=== PATIENT | female | born 1955 | race Caucasian/White ===

== ENCOUNTER → 2016-07-06 | Outpatient (CLI) | payer MEDICARE, OTHER ==
--- NOTE | 2016-07-06 16:15 | XR ---
EXAMINATION TYPE: XR chest 2V DATE OF EXAM: 07/06/2016 2:33 PM HISTORY: Cough. REFERENCE: Previous study dated 11/26/2015. FINDINGS: There is chronic appearing elevation of the right hemidiaphragm. IMPRESSION: MILD CARDIOMEGALY.
== END | disposition home or self-care (01) ==
LOC: RADXRMAIN 13:47
PROVIDERS: ATTEND Internal Medicine
DX: I51.7 Cardiomegaly (principal)
CPT/HCPCS: 71020

== ENCOUNTER → 2016-07-13 | Outpatient (CLI) | payer MEDICARE, OTHER ==
[~2016-07-13] MED LIST: SODIUM CHLORIDE 0.9% 500 ML in EMPTY BAG 1 BAG IV PRN; methylPREDNISolone SOD SUCCI 125 MG/2 ML VIAL IVP NR
[2016-07-13 15:01] VITALS: BP 131/78; PULSE 61; RESP 16; TEMP 97.5
== END | disposition home or self-care (01) ==
LOC: PROCWHC3 14:10
PROVIDERS: ATTEND Internal Medicine
DX: G35 Multiple sclerosis (principal)
CPT/HCPCS: 96374; J2930

== ENCOUNTER 2016-08-18 12:30 | Observation (INO) | payer MEDICARE ==
[2016-08-18] MEDS ORDERED: ASPIRIN 81 MG CHEW PO STA (12:47)
[2016-08-18] MEDS ORDERED: NITROGLYCERIN OINT 1 INCH/GM PACKET TOPICAL STA (12:47)
--- NOTE | 2016-08-18 12:53 | ED ---
General Adult HPI - General Chief complaint: Chest Pain Stated complaint: chest pain Time Seen by Provider: 08/18/16 12:35 Source: patient, EMS, RN notes reviewed Mode of arrival: EMS Limitations: no limitations - History of Present Illness Initial comments: This is a 60-year-old female who presents to the emergency department with a past medical history significant for CVA with some residual expressive aphasia. Patient comes in today complaining of chest pain that started earlier today and was pretty significant according to the patient. Patient states it was causing her some shortness of breath. She denies any diaphoresis denied any nausea denied any radiation of the pain. Patient states she had no limitations. Patient denies any recent fever chills cough. Patient denies any recent injury or trauma. Patient denies any lightheadedness dizziness or syncopal episode. Patient denies abdominal pain patient denies any vomiting or diarrhea recently. Patient denies any headache patient denies any numbness or weakness. Patient denies any visual problems or speech problem. - Related Data Home Medications Medication Instructions Recorded Confirmed Aspirin 81 mg PO DAILY@0911/08/13 08/18/16 Baclofen [Lioresal] 10 mg PO DAILY@169911/08/13 08/18/16 Citalopram Hydrobromide [CeleXA] 40 mg PO HS@2100 11/08/13 08/18/16 Ferrous Sulfate [Feosol] 325 mg PO DAILY@89911/08/13 08/18/16 Fexofenadine HCl [Mimi Allergy] 180 mg PO DAILY@169911/08/13 08/18/16 Furosemide [Lasix] 40 mg PO BID@0900,169911/08/13 08/18/16 Levothyroxine Sodium [Synthroid] 75 mcg PO DAILY@59911/08/13 08/18/16 Montelukast [Singulair] 10 mg PO DAILY@169911/08/13 08/18/16 Nitroglycerin Sl Tabs [Nitrostat] 0.4 mg SUBLINGUAL Q5M PRN 11/08/13 08/18/16 Pantoprazole Sodium [Protonix] 40 mg PO DAILY@0611/08/13 08/18/16 Potassium Chloride [Potassium 20 meq PO BID@0900,169911/08/13 08/18/16 Chloride ER] Biotin 5 mg PO BID@0900,1700 03/05/14 08/18/16 Cholecalciferol [Vitamin D3] 2,000 unit PO DAILY@0900 11/18/15 08/18/16 Dimethyl Fumarate [Tecfidera] 240 mg PO BID@0900,2100 11/18/15 08/18/16 Fluticasone Nasal [place] [Flonase 1 spray EA NOSTRIL DAILY@0911/18/15 08/18/16 Nasal [place]] Methylphenidate HCl [Ritalin] 20 mg PO DAILY@0900 11/18/15 08/18/16 Pravastatin Sodium [Pravachol] 20 mg PO HS@209911/18/15 08/18/16 Warfarin Sodium 5 mg PO MO@169911/18/15 08/18/16 Warfarin [Coumadin] 7.5 mg PO SUTUWETHFRSA@169911/18/15 08/18/16 fentaNYL [Fentanyl] 25 mcg TRANSDERM Q72H 11/18/15 08/18/16 HYDROcodone/APAP 5-325MG [[place] 1 tab PO Q6HR PRN 07/13/16 08/18/16 5-325] Pregabalin [Lyrica] 100 mg PO TID@0900,1700,209907/13/16 08/18/16 Folic Acid 0.4 mg PO DAILY@0908/18/16 08/18/16 Allergies Allergy/AdvReac Type Severity Reaction Status Date / Time adhesive Allergy SKIN Verified 07/13/16 14:41 PEELING Review of Systems ROS Statement: Those systems with pertinent positive or pertinent negative responses have been documented in the HPI. ROS Other: All systems not noted in ROS Statement are negative. Past Medical History Past Medical History: Chest Pain / Angina, CVA/TIA, Fibromyalgia, Osteoarthritis (OA), Pulmonary Embolus (PE), Sleep Apnea/CPAP/BIPAP, Thyroid Disorder Additional Past Medical History / Comment(s): MULTIPLE SCLEROSIS, HX OF CVA 2006 . APHASIA, MIGRAINES, SLEEP APNEA(HAS C-PAP MACHINE BUT DOES NOT USE) ABD HERNIA,CHRONIC PAIN ALL OVER . USES CANE TO WALK. PAINFUL FOR HER TO LIE FLAT. HX OF NOSEBLEED JUL 2014 AND RECEIVED PLASMA TRANSFUSION.takes pills with applesauce. History of Any Multi-Drug Resistant Organisms: VRE Date of last positivie culture/infection: 2011 MDRO Source:: URINE Past Surgical History: Appendectomy, Cholecystectomy, Hysterectomy Additional Past Surgical History / Comment(s): Hernia repair, laparoscopic lysis of adhesions in 1987, ganglion cyst removal of the left wrist, patent foramen ovale patch in 2006, REPAIR OF INCISON HERNIA Past Anesthesia/Blood Transfusion Reactions: No Reported Reaction Past Psychological History: No Psychological Hx Reported, Depression Additional Psychological History / Comment(s): CELEXA. PT HAS DIFFICULTY W/ SPEECH. HAS TO LOOK AT DIETARY MENU TO ORDER CAN'T DO IT BY PHONE, SHOW HER VS OR POINT TO FACES PAIN SCALE. Smoking Status: Never smoker Past Alcohol Use History: None Reported Past Drug Use History: None Reported Additional Drug Use History / Comment(s): Lives at home with her requires some assistance with ADLs at times - Past Family History Mother Family Medical History: Hypertension Additional Family Medical History / Comment(s): osteoporosis Father Family Medical History: Dementia General Exam - General Exam Comments Initial Comments: GENERAL: Patient is well-developed and well-nourished. Patient is nontoxic and well- hydrated and is in mild distress. ENT: Neck is soft and supple. No significant lymphadenopathy is noted. Oropharynx is clear. Moist mucous membranes. Neck has full range of motion without eliciting any pain. EYES: The sclera were anicteric and conjunctiva were pink and moist. Extraocular movements were intact and pupils were equal round and reactive to light. Eyelids were unremarkable. PULMONARY: Unlabored respirations. Good breath sounds bilaterally. No audible rales rhonchi or wheezing was noted. CARDIOVASCULAR: There is a regular rate and rhythm without any murmurs gallops or rubs. ABDOMEN: Soft and nontender with normal bowel sounds. No palpable organomegaly was noted. There is no palpable pulsatile mass. SKIN: Skin is clear with no lesions or rashes and otherwise unremarkable. NEUROLOGIC: Patient is alert and oriented x3. Cranial nerves II through XII are grossly intact. Motor and sensory are also intact. Patient has some expressive aphasia and occasionally transpose his words.. Symmetrical smile. MUSCULOSKELETAL: Normal extremities with adequate strength and full range of motion. No lower extremity swelling or edema. No calf tenderness. LYMPHATICS: No significant lymphadenopathy is noted PSYCHIATRIC: Normal psychiatric evaluation. Limitations: no limitations Course Vital Signs 08/18/16 12:35 Temperature 99.2 F Pulse Rate 54 L Respiratory 20 Rate Blood Pressure 126/62 O2 Sat by Pulse 100 Oximetry Medical Decision Making - Medical Decision Making EKG shows a sinus bradycardia 55 bpm MS interval is 144 QRS 76 QT interval 348 QTC is 419 per patient's EKG shows no ST segment elevation or depression or T- wave abdomen is noted. Patient's chest x-ray shows no acute mallet. I started the patient heparin because the significance of her symptoms. I spoke with Dr. Jackson admitted the patient. I consult cardiology. I wrote admitting orders.I continued heparin Nitropaste and aspirin on the floor. - Lab Data Result diagrams: 08/18/16 12:56 08/18/16 12:56 Lab Results 08/18/16 08/18/16 08/18/16 Range/Units 12:56 12:56 12:56 WBC 3.0 L (3.8-10.6) k/uL RBC 4.97 (3.80-5.40) m/uL Hgb 15.1 (11.4-16.0) gm/dL Hct 43.7 (34.0-46.0) % MCV 88.0 (80.0-100.0) fL MCH 30.4 (25.0-35.0) pg MCHC 34.5 (31.0-37.0) g/dL RDW 13.2 (11.5-15.5) % Plt Count 129 L (150-450) k/uL Neutrophils % (Manual) 72.0 % Lymphocytes % (Manual) 20.0 % Monocytes % (Manual) 6.0 % Eosinophils % (Manual) 2.0 % Neutrophils # (Manual) 2.2 (1.3-7.7) k/uL Lymphocytes # (Manual) 0.6 L (1.0-4.8) k/uL Monocytes # (Manual) 0.2 (0-1.0) k/uL Eosinophils # (Manual) 0.1 (0-0.7) k/uL Nucleated RBCs 0 (0-0) /100 WBC Manual Slide Review Performed Poikilocytosis (manual Present PT (9.0-12.0) sec INR (<1.1) APTT (22.0-30.0) sec Sodium 143 (137-145) mmol/L Potassium 4.2 (3.5-5.1) mmol/L Chloride 104 (98-107) mmol/L Carbon Dioxide 30 (22-30) mmol/L Anion Gap 9 mmol/L BUN 23 H (7-17) mg/dL Creatinine 1.04 (0.52-1.04) mg/dL Est GFR (MDRD) Af Amer >60 (>60 ml/min/1.73 sqM) Est GFR (MDRD) Non-Af 54 (>60 ml/min/1.73 sqM) Glucose 87 (74-99) mg/dL Calcium 9.7 (8.4-10.2) mg/dL Magnesium 2.3 (1.6-2.3) mg/dL Total Bilirubin 0.8 (0.2-1.3) mg/dL AST 19 (14-36) U/L ALT 30 (9-52) U/L Alkaline Phosphatase 78 (38-126) U/L Total Creatine Kinase 34 (30-135) U/L CK-MB (CK-2) <0.2 (0.0-2.4) ng/mL CK-MB (CK-2) Rel Index Troponin I <0.012 (0.000-0.034) ng/mL Total Protein 6.8 (6.3-8.2) g/dL Albumin 4.3 (3.5-5.0) g/dL 08/18/16 Range/Units 12:56 WBC (3.8-10.6) k/uL RBC (3.80-5.40) m/uL Hgb (11.4-16.0) gm/dL Hct (34.0-46.0) % MCV (80.0-100.0) fL MCH (25.0-35.0) pg MCHC (31.0-37.0) g/dL RDW (11.5-15.5) % Plt Count (150-450) k/uL Neutrophils % (Manual) % Lymphocytes % (Manual) % Monocytes % (Manual) % Eosinophils % (Manual) % Neutrophils # (Manual) (1.3-7.7) k/uL Lymphocytes # (Manual) (1.0-4.8) k/uL Monocytes # (Manual) (0-1.0) k/uL Eosinophils # (Manual) (0-0.7) k/uL Nucleated RBCs (0-0) /100 WBC Manual Slide Review Poikilocytosis (manual PT 20.2 H (9.0-12.0) sec INR 2.1 (<1.1) APTT 33.0 H (22.0-30.0) sec Sodium (137-145) mmol/L Potassium (3.5-5.1) mmol/L Chloride (98-107) mmol/L Carbon Dioxide (22-30) mmol/L Anion Gap mmol/L BUN (7-17) mg/dL Creatinine (0.52-1.04) mg/dL Est GFR (MDRD) Af Amer (>60 ml/min/1.73 sqM) Est GFR (MDRD) Non-Af (>60 ml/min/1.73 sqM) Glucose (74-99) mg/dL Calcium (8.4-10.2) mg/dL Magnesium (1.6-2.3) mg/dL Total Bilirubin (0.2-1.3) mg/dL AST (14-36) U/L ALT (9-52) U/L Alkaline Phosphatase (38-126) U/L Total Creatine Kinase (30-135) U/L CK-MB (CK-2) (0.0-2.4) ng/mL CK-MB (CK-2) Rel Index Troponin I (0.000-0.034) ng/mL Total Protein (6.3-8.2) g/dL Albumin (3.5-5.0) g/dL Critical Care Time Critical Care Time: Yes Total Critical Care Time: 35 Disposition Clinical Impression: Unstable angina pectoris Disposition: ADMITTED IP TO THIS [facility] Time of Disposition: 14:29
[2016-08-18 13:08] LABS: Aty Lym Flag Slight; CH 31.4; CHCM 35.8; HCT 43.7 % (34.0-46.0); HDW 3.05; HGB 15.1 gm/dL (11.4-16.0); MCH 30.4 pg (25.0-35.0); MCHC 34.5 g/dL (31.0-37.0); RBC 4.97 m/uL (3.80-5.40); RDW 13.2 % (11.5-15.5); WBC (Perox) 2.94
[2016-08-18 13:22] LABS: Add Differential Manual Differential
[2016-08-18 13:23] LABS: ALT 30 U/L (9-52); AST 19 U/L (14-36); Alkaline Phosphatase 78 U/L (38-126); Anion Gap 9 mmol/L; Blood Urea Nitrogen 23 mg/dL (7-17); Calcium 9.7 mg/dL (8.4-10.2); Carbon Dioxide 30 mmol/L (22-30); Chloride 104 mmol/L (98-107); Glucose 87 mg/dL (74-99); INR 2.1 (<1.1); Magnesium 2.3 mg/dL (1.6-2.3); Non-African American GFR(MDRD) 54 (>60 ml/min/1.73 sqM); Potassium 4.2 mmol/L (3.5-5.1); Prothrombin Time 20.2 sec (9.0-12.0); Sodium 143 mmol/L (137-145); Total Bilirubin 0.8 mg/dL (0.2-1.3); Total Protein 6.8 g/dL (6.3-8.2)
[2016-08-18 13:24] LABS: Manual Review Performed; Nucleated Red Blood Cells 0 /100 WBC (0-0); Total Cells Counted 100
--- NOTE | 2016-08-18 13:28 | XR ---
EXAMINATION TYPE: XR chest 2V DATE OF EXAM: 08/18/2016 1:22 PM COMPARISON: 07/06/2016 INDICATION: Chest pain TECHNIQUE: Single frontal view of the chest is obtained. FINDINGS: The heart size is normal. The pulmonary vasculature is normal. The lungs are clear. IMPRESSION: 1. No acute pulmonary process.
[2016-08-18 13:45] LABS: Creatine Kinase 34 U/L (30-135)
[2016-08-18 13:56] LABS: Creatine Kinase MB <0.2 ng/mL (0.0-2.4); Troponin I <0.012 ng/mL (0.000-0.034)
[2016-08-18] MEDS ORDERED: HEPARIN SODIUM,PORCINE/D5W PMX 25,000 UNIT in DEXTROSE/WATER 1 500ML.BAG IV SCH (14:30)
[2016-08-18] MEDS ORDERED: HEPARIN SODIUM,PORCINE 5,000 UNIT/ML 1 ML VIAL IV ONE (14:30)
[2016-08-18] MEDS ORDERED: NITROGLYCERIN SL TABS 0.4 MG TAB SUBLINGUAL PRN ×2 (14:33→15:34)
[2016-08-18] MEDS: PREGABALIN 100 MG CAP PO SCH ×2 (18:18→21:23)
[2016-08-18] MEDS: LORATADINE 10 MG TAB PO SCH (18:18)
[2016-08-18] MEDS: MONTELUKAST 10 MG TAB PO SCH (18:18)
[2016-08-18] MEDS: FUROSEMIDE 40 MG TAB PO SCH (18:18)
[2016-08-18] MEDS: POTASSIUM CHLORIDE ER 20 MEQ TAB.ER PO SCH (18:18)
[2016-08-18] MEDS: BACLOFEN 10 MG TAB PO SCH (18:18)
[2016-08-18] MEDS: NITROGLYCERIN OINT 1 INCH/GM PACKET TOPICAL SCH (18:19)
[2016-08-18 20:36] LABS: Creatine Kinase 33 U/L (30-135)
[2016-08-18 20:49] LABS: Creatine Kinase MB <0.2 ng/mL (0.0-2.4); Troponin I <0.012 ng/mL (0.000-0.034)
[2016-08-18] MEDS ORDERED: NON-FORMULARY DRUG (Dimethyl Fumarate [Tecfidera] 240 MG) PO SCH (21:00)
[2016-08-18] MEDS: PRAVASTATIN SODIUM 20 MG TAB PO SCH (21:23)
[2016-08-18] MEDS: CITALOPRAM HYDROBROMIDE 20 MG TAB PO SCH (21:23)
[2016-08-19] MEDS: NITROGLYCERIN OINT 1 INCH/GM PACKET TOPICAL SCH ×2 (00:08→06:22)
[2016-08-19 01:49] LABS: Creatine Kinase 33 U/L (30-135)
[2016-08-19 02:02] LABS: Creatine Kinase MB <0.2 ng/mL (0.0-2.4); Troponin I <0.012 ng/mL (0.000-0.034)
[2016-08-19 06:01] LABS: Cholesterol 155 mg/dL (<200); HDL Cholesterol 65 mg/dL (40-60); Triglycerides 128 mg/dL (<150)
[2016-08-19] MEDS: PANTOPRAZOLE 40 MG TABLET PO SCH (06:18)
[2016-08-19] MEDS: LEVOTHYROXINE 75 MCG TAB PO SCH (06:18)
[2016-08-19] MEDS ORDERED: HEPARIN SODIUM,PORCINE 5,000 UNIT/ML 1 ML VIAL IV PRN (06:52)
--- NOTE | 2016-08-19 08:05 | CONS ---
DATE OF CONSULTATION: CHIEF COMPLAINT: Chest pain. Huong is a 60-year-old lady with history of CVA with left hemiplegia, whose communication is somewhat limited and she is a poor historian, came to hospital because of chest pain. She also has multiple sclerosis. Her predominant symptom is in the form of discomfort on the right side, but she has discomfort involving the chest, right upper extremity and lower extremity and does not really have chest discomfort suggestive of angina. Past medical history is significant for CVA, hypothyroidism. Medications include Flonase, Coumadin, Pravachol, Ritalin, Williams, Lyrica, folic acid, Synthroid, Singulair, Lasix, Mimi, iron, Celexa, baclofen and aspirin. She is also on Coumadin with pravastatin. ALLERGIES: There are no known drug allergies. SOCIAL HISTORY: Not able to obtain from the patient. PAST MEDICAL HISTORY: Significant for angina, CVA, fibromyalgia, pulmonary embolism and sleep disorder. She has multiple sclerosis and history of cerebrovascular accident. PAST SURGICAL HISTORY: Significant for appendectomy, cholecystectomy, hysterectomy, history of PFO patch. REVIEW OF SYSTEMS: I am unable to obtain from the patient. On exam, patient is comfortable at rest. Vital signs are stable. There is no jugular venous distention. Carotid upstroke is normal. There is no bruit. Chest exam reveals diminished air entry at the bases. Heart exam reveals first and second heart sounds. No gallop. Exam of the extremities did not reveal edema. Peripheral pulses are felt. EKG shows sinus rhythm with evidence of prior inferior wall myocardial infarction. ASSESSMENT: Atypical chest pain. Myocardial infarction is ruled out. Given her multiple medical problems and prior cerebrovascular accident, will treat her with optimal medical therapy, obtain a 2-D echo to assess LV function. Continue the aspirin that she is on, put her on Imdur 30 mg daily. Continue the statin that she is taking. I am not going to start her on beta blockers at this time.
[2016-08-19] MEDS: POTASSIUM CHLORIDE ER 20 MEQ TAB.ER PO SCH ×2 (08:40→17:39)
[2016-08-19] MEDS: PREGABALIN 100 MG CAP PO SCH ×3 (08:41→21:42)
[2016-08-19] MEDS: FERROUS SULFATE 325 MG TAB PO SCH ×2 (08:41→10:23)
[2016-08-19] MEDS: CHOLECALCIFEROL 1,000 UNIT TAB PO SCH (08:41)
[2016-08-19] MEDS: ASPIRIN 81 MG CHEW PO SCH (08:41)
[2016-08-19] MEDS: FOLIC ACID 1 MG TAB PO SCH ×2 (08:41→10:23)
[2016-08-19] MEDS: FUROSEMIDE 40 MG TAB PO SCH ×2 (08:42→17:39)
[2016-08-19] MEDS: HYDROcodone/APAP 5-325MG 1 EACH TAB PO PRN ×2 (08:51→15:27)
[2016-08-19 09:00] LABS: Aty Lym Flag Slight; CH 30.9; CHCM 34.1; HCT 41.2 % (34.0-46.0); HDW 2.99; HGB 13.5 gm/dL (11.4-16.0); MCHC 32.9 g/dL (31.0-37.0); MCV 91.2 fL (80.0-100.0); Mean Platelet Volume 10.4; Prothrombin Time 19.5 sec (9.0-12.0); RBC 4.52 m/uL (3.80-5.40); RDW 13.2 % (11.5-15.5); WBC 2.5 k/uL (3.8-10.6); WBC (Perox) 2.72
[2016-08-19] MEDS ORDERED: ASPIRIN 325 MG TAB PO SCH (09:00)
[2016-08-19 09:07] LABS: Calcium 8.9 mg/dL (8.4-10.2); Potassium 4.1 mmol/L (3.5-5.1); Total Bilirubin 0.9 mg/dL (0.2-1.3)
[2016-08-19 09:57] LABS: Add Differential Manual Differential
[2016-08-19 10:00] LABS: Manual Review Performed; Nucleated Red Blood Cells 0 /100 WBC (0-0); Total Cells Counted 100
[2016-08-19 10:01] LABS: Large Platelets Present
--- NOTE | 2016-08-19 10:22 | ECHOF ---
Referral Reason:cp MEASUREMENTS -------- HEIGHT: 162.6 cm WEIGHT: 145.2 kg BP: 118/66 RVIDd: 3.1 cm (< 3.3) IVSd: 1.2 cm (0.6 - 1.1) LVIDd: 4.0 cm (3.9 - 5.3) LVPWd: 1.2 cm (0.6 - 1.1) IVSs: 1.9 cm LVIDs: 2.7 cm LVPWs: 1.9 cm LA Diam: 3.2 cm (2.7 - 3.8) Ao Diam: 3.7 cm (2.0 - 3.7) AV Cusp: 2.2 cm (1.5 - 2.6) MV EXCURSION: 12.169 mm (> 18.000) MV EF SLOPE: 54 mm/s (70 - 150) EPSS: 0.6 cm MV E Sander: 0.55 m/s MV DecT: 296 ms MV A Sander: 0.73 m/s MV E/A Ratio: 0.76 FINDINGS -------- Sinus rhythm. This was a technically adequate study. The left ventricular size is normal. There is borderline concentric left ventricular hypertrophy. Overall left ventricular systolic function is normal with, an EF between 55 - 60 %. The right ventricle is normal in size and function. The left atrial size is normal. The right atrium is normal in size. The aortic valve is trileaflet and appears structurally normal. Normal appearing mitral valve. No mitral regurgitation. The tricuspid valve appears structurally normal. No regurgitation noted The pulmonic valve was not well visualized. The aortic root is dilated measuring 3.7cm. There is no pericardial effusion. CONCLUSIONS -------- 1. Sinus rhythm. 2. Normal appearing mitral valve. 3. The tricuspid valve appears structurally normal. 4. The pulmonic valve was not well visualized. 5. The aortic root is dilated measuring 3.7cm. 6. There is no pericardial effusion. 7. This was a technically adequate study. 8. The left ventricular size is normal. 9. There is borderline concentric left ventricular hypertrophy. 10. Overall left ventricular systolic function is normal with, an EF between 55 - 60 %. 11. The right ventricle is normal in size and function. 12. The left atrial size is normal. 13. The right atrium is normal in size. 14. The aortic valve is trileaflet and appears structurally normal. CARPET FINISHING SUPERVISOR: Danii Barrios RDCS
[2016-08-19] MEDS: FLUTICASONE 50MCG/SPRAY NASAL 16GM EA NOSTRIL SCH (10:23)
[2016-08-19] MEDS: ISOSORBIDE MONONITRATE ER 30 MG TAB.ER.24H PO SCH (10:23)
[2016-08-19] MEDS: METHYLPHENIDATE HCL 10 MG TAB PO SCH (10:23)
--- NOTE | 2016-08-19 12:09 | P.HPIM ---
History of Present Illness H&P Date: 08/19/16 Chief Complaint: Chest pain This is a 60-year-old female with a known history of multiple sclerosis, CVA with excessive aphasia, pulmonary embolism in which she is on Coumadin and obstructive sleep apnea. Patient presents to the emergency room with complaints of chest pain. Patient is a difficult historian due to her specimen aphasia. However she does report having pain and having to grab onto her chest. chest pain started yesterday. She presented to the emergency room for cardiac workup. Was started on IV heparin. Troponins were negative 3. EKG had shown a sinus bradycardia with a heart rate of 55. She was seen evaluated by cardiology they did order a 2-D echo and added into her. Patient has had some improvement in her pain. She denies any fevers chills or sweats. Denies any cough. Denies any nausea or vomiting. Denies any bowel movement changes or urinary symptoms. Review of Systems Postoperative HPI otherwise unremarkable Past Medical History Past Medical History: Chest Pain / Angina, CVA/TIA, Fibromyalgia, Musculoskeletal Disorder, Neurologic Disorder, Osteoarthritis (OA), Pulmonary Embolus (PE), Sleep Apnea/CPAP/BIPAP, Thyroid Disorder Additional Past Medical History / Comment(s): Pt has recently been tx for bronchitis with antibiotics completed, MULTIPLE SCLEROSIS, HX OF CVA 2006 . DYSPHASIA, MIGRAINES, SLEEP APNEA(HAS C-PAP MACHINE BUT DOES NOT USE) ABD HERNIA ,CHRONIC PAIN ESPECIALLY ON R SIDE OF BODY AND LOW BACK . PAINFUL FOR HER TO LIE FLAT. HX OF NOSEBLEED JUL 2014 AND RECEIVED PLASMA TRANSFUSION. takes pills with applesauce. History of Any Multi-Drug Resistant Organisms: VRE Date of last positivie culture/infection: 10/24/09 confirmed with infectious disease nurse on 08/18/16. MDRO Source:: URINE Past Surgical History: Appendectomy, Cholecystectomy, Hysterectomy Additional Past Surgical History / Comment(s): Incisional hernia repair, laparoscopic lysis of adhesions in 1987, ganglion cyst removal of the left wrist , patent foramen ovale patch in 2006, RF ablation for back pain. Past Anesthesia/Blood Transfusion Reactions: No Reported Reaction Past Psychological History: No Psychological Hx Reported, Depression Additional Psychological History / Comment(s): CELEXA. PT HAS DIFFICULTY W/ SPEECH. HAS TO LOOK AT DIETARY MENU TO ORDER CAN'T DO IT BY PHONE, SHOW HER VS OR POINT TO FACES PAIN SCALE. Pt resides with her spouse. She uses a cane to ambulate. They no longer own a car-they use the bus to get to appts. Spouse assists her with some ADLs when needed. Smoking Status: Never smoker Past Alcohol Use History: None Reported Past Drug Use History: None Reported Additional Drug Use History / Comment(s): Lives at home with her requires some assistance with ADLs at times - Past Family History Mother Family Medical History: Hypertension Additional Family Medical History / Comment(s): osteoporosis Father Family Medical History: Dementia Medications and Allergies Home Medications Medication Instructions Recorded Confirmed Type Aspirin 81 mg PO DAILY@89911/08/13 08/18/16 History Baclofen [Lioresal] 10 mg PO DAILY@169911/08/13 08/18/16 History Citalopram Hydrobromide [CeleXA] 40 mg PO HS@209911/08/13 08/18/16 History Ferrous Sulfate [Feosol] 325 mg PO DAILY@89911/08/13 08/18/16 History Fexofenadine HCl [Mimi Allergy] 180 mg PO DAILY@169911/08/13 08/18/16 History Furosemide [Lasix] 40 mg PO BID@09,169911/08/13 08/18/16 History Levothyroxine Sodium [Synthroid] 75 mcg PO DAILY@59911/08/13 08/18/16 History Montelukast [Singulair] 10 mg PO DAILY@169911/08/13 08/18/16 History Nitroglycerin Sl Tabs [Nitrostat] 0.4 mg SUBLINGUAL Q5M PRN 11/08/13 08/18/16 History Pantoprazole Sodium [Protonix] 40 mg PO DAILY@59911/08/13 08/18/16 History Potassium Chloride [Potassium 20 meq PO BID@09,169911/08/13 08/18/16 History Chloride ER] Biotin 5 mg PO BID@0900,169903/05/14 08/18/16 History Cholecalciferol [Vitamin D3] 2,000 unit PO DAILY@89911/18/15 08/18/16 History Dimethyl Fumarate [Tecfidera] 240 mg PO BID@09,209911/18/15 08/18/16 History Fluticasone Nasal [place] [Flonase 1 spray EA NOSTRIL DAILY@0900 11/18/15 History Nasal [place]] Methylphenidate HCl [Ritalin] 20 mg PO DAILY@0900 11/18/15 08/18/16 History Pravastatin Sodium [Pravachol] 20 mg PO HS@2100 11/18/15 08/18/16 History Warfarin Sodium 5 mg PO MO@1700 11/18/15 08/18/16 History Warfarin [Coumadin] 7.5 mg PO SUTUWETHFRSA@1700 11/18/15 08/18/16 History fentaNYL [Fentanyl] 25 mcg TRANSDERM Q72H 11/18/15 08/18/16 History HYDROcodone/APAP 5-325MG [[place] 1 tab PO Q6HR PRN 07/13/16 08/18/16 History 5-325] Pregabalin [Lyrica] 100 mg PO TID@0900,1700,2100 07/13/16 08/18/16 History Folic Acid 0.4 mg PO DAILY@0900 08/18/16 08/18/16 History Allergies Allergy/AdvReac Type Severity Reaction Status Date / Time adhesive Allergy SKIN Verified 07/13/16 14:41 PEELING Physical Exam Vitals: Vital Signs Temp Pulse Pulse Pulse Resp BP BP 08/19/16 08:00 98.7 F 56 L 16 108/57 08/19/16 04:00 97.7 F 54 L 16 118/66 08/19/16 00:00 52 L 16 08/18/16 23:41 97.6 F 52 L 16 115/64 08/18/16 20:00 51 L 16 08/18/16 19:35 97.9 F 51 L 16 119/63 08/18/16 17:36 16 08/18/16 16:00 97.7 F 61 16 115/72 08/18/16 15:28 97.2 F L 49 L 18 108/57 Pulse Ox 08/19/16 08:00 93 L 08/19/16 04:00 94 L 08/19/16 00:00 08/18/16 23:41 97 08/18/16 20:00 08/18/16 19:35 95 08/18/16 17:36 96 08/18/16 16:00 91 L 02/16/17 15:28 97 Intake and Output 08/18/16 08/19/16 08/19/16 22:59 06:59 14:59 Intake Total 548.538 166.191 240 Balance 548.538 166.191 240 Intake: IV 44 77 Heparin Sodium,Porcine/ 44 77 D5w Pmx 25,000 unit In Dextrose/Water 1 500ml. bag @ 6.9 UNITS/KG/HR 20. 03 mls/hr IV .Q24H [facility] Rx #:[id number] Intake, IV Titration 136.538 89.191 Amount Heparin Sodium,Porcine/ 136.538 89.191 D5w Pmx 25,000 unit In Dextrose/Water 1 500ml. bag @ 6.9 UNITS/KG/HR 20. 03 mls/hr IV .Q24H [facility] Rx #:[id number] Oral 368 240 Other: Voiding Method Toilet Toilet Toilet # Voids 2 2 Head normocephalic Neck supple Lungs clear to auscultation bilaterally no wheezing or crackles Heart regular rate and rhythm S1-S2, no rub or gallop Abdomen is soft nontender nondistended positive bowel sounds no hepatosplenomegaly Extremities no edema Neuro awake and alert expressive aphasia Results CBC & Chem 7: 08/19/16 05:35 08/19/16 05:35 Labs: Abnormal Lab Results - Last 24 Hours (Table) 08/18/16 08/19/16 08/19/16 Range/Units 19:52 05:24 05:25 WBC (3.8-10.6) k/uL Plt Count (150-450) k/uL Lymphocytes # (Manual) (1.0-4.8) k/uL PT (9.0-12.0) sec APTT 105.2 H* 40.6 H (22.0-30.0) sec BUN (7-17) mg/dL Creatinine (0.52-1.04) mg/dL Glucose (74-99) mg/dL Total Protein (6.3-8.2) g/dL HDL Cholesterol 65 H (40-60) mg/dL 08/19/16 08/19/16 08/19/16 Range/Units 05:35 05:35 05:35 WBC 2.5 L (3.8-10.6) k/uL Plt Count 105 L (150-450) k/uL Lymphocytes # (Manual) 0.8 L (1.0-4.8) k/uL PT 19.5 H (9.0-12.0) sec APTT (22.0-30.0) sec BUN 23 H (7-17) mg/dL Creatinine 1.18 H (0.52-1.04) mg/dL Glucose 122 H (74-99) mg/dL Total Protein 6.0 L (6.3-8.2) g/dL HDL Cholesterol (40-60) mg/dL Thrombosis Risk Factor Assmnt - Choose All That Apply Any of the Below Risk Factors Present?: Yes Each Factor Represents 1 point: Obesity (BMI >25) Other Risk Factors: Yes Each Risk Factor Represents 2 Points: Age 61-74 years Other congenital or acquired thrombophilia - If yes, enter type in comment: No Thrombosis Risk Factor Assessment Total Risk Factor Score: 3 Thrombosis Risk Factor Assessment Level: Moderate Risk Assessment and Plan Plan: 1. Chest pain: Myocardial infarction ruled out. Patient evaluated by cardiology. They've added Imdur 30 mg daily. In the recommending continuing an aspirin and statin. Troponins were negative 3. EKG had shown sinus bradycardia with a heart rate 55. Chest x-ray no acute changes. Echo shows an EF of 55-60% with no significant valvular abnormality. Patient's chest pain is improving. 2. Acute on chronic kidney injury, stage IIIa: Creatinine 1.18. We'll start normal saline at 50 mL an hour for 8 hours. Repeat labs in a.m. 3. History of CVA and expressive aphasia. Continue daily aspirin 4. History of pulmonary embolism: Resume home Coumadin. Check PT/INR in a.m. 5. History of multiple sclerosis no evidence of exacerbation at this time 6. Hypothyroidism continue Synthroid 7. Chronic pain: Resume fentanyl patch 8. Hyperlipidemia resume pravastatin GI prophylaxis Protonix and DVT prophylaxis patient is on Coumadin for history of PE Time with Patient: Greater than 30 (Greater than 50% of the total time spent in counseling and coordination of care.I performed an examination of the patient and discussed their management with the physician Director [employer]. I have reviewed the Physician Director [employer]'s notes and agree with the documented findings and plan of care)
[2016-08-19] MEDS ORDERED: SODIUM CHLORIDE 0.9% 1,000 ML IV SCH (12:15)
[2016-08-19] MEDS: MONTELUKAST 10 MG TAB PO SCH (17:38)
[2016-08-19] MEDS: LORATADINE 10 MG TAB PO SCH (17:39)
[2016-08-19] MEDS: BACLOFEN 10 MG TAB PO SCH (17:39)
[2016-08-19] MEDS: WARFARIN 7.5 MG TAB PO SCH (17:52)
[2016-08-19] MEDS: PRAVASTATIN SODIUM 20 MG TAB PO SCH (21:42)
[2016-08-19] MEDS: CITALOPRAM HYDROBROMIDE 20 MG TAB PO SCH (21:42)
[2016-08-20] MEDS: PANTOPRAZOLE 40 MG TABLET PO SCH (05:48)
[2016-08-20] MEDS: LEVOTHYROXINE 75 MCG TAB PO SCH (05:48)
[2016-08-20 06:43] LABS: Basophils % (A) 1 %; CHCM 34.5; Eosinophils # (A) 0.1 k/uL (0-0.7); Eosinophils % (A) 3 %; HCT 40.6 % (34.0-46.0); HDW 3.04; HGB 13.4 gm/dL (11.4-16.0); Luc # (Auto) 0.12; Luc % (Auto) 4; Lymphocytes # (A) 0.7 k/uL (1.0-4.8); Lymphocytes % (A) 21 %; MCH 29.7 pg (25.0-35.0); MCHC 32.9 g/dL (31.0-37.0); MCV 90.4 fL (80.0-100.0); Mean Platelet Volume 9.2; Monocytes # (A) 0.2 k/uL (0-1.0); Monocytes % (A) 6 %; Neutrophils # (A) 2.1 k/uL (1.3-7.7); Neutrophils % (A) 66 %; RDW 13.3 % (11.5-15.5); WBC 3.2 k/uL (3.8-10.6); WBC (Perox) 3.45
[2016-08-20 06:44] LABS: INR 1.9 (<1.1); Prothrombin Time 18.3 sec (9.0-12.0)
[2016-08-20 06:59] LABS: Calcium 8.8 mg/dL (8.4-10.2); Potassium 4.5 mmol/L (3.5-5.1); Total Bilirubin 0.8 mg/dL (0.2-1.3)
[2016-08-20] MEDS: FUROSEMIDE 40 MG TAB PO SCH ×2 (09:12→17:29)
[2016-08-20] MEDS: PREGABALIN 100 MG CAP PO SCH ×2 (09:12→17:29)
[2016-08-20] MEDS: FOLIC ACID 1 MG TAB PO SCH (09:12)
[2016-08-20] MEDS: ISOSORBIDE MONONITRATE ER 30 MG TAB.ER.24H PO SCH (09:13)
[2016-08-20] MEDS: ASPIRIN 81 MG CHEW PO SCH (09:13)
[2016-08-20] MEDS: FERROUS SULFATE 325 MG TAB PO SCH (09:13)
[2016-08-20] MEDS: CHOLECALCIFEROL 1,000 UNIT TAB PO SCH (09:13)
[2016-08-20] MEDS: POTASSIUM CHLORIDE ER 20 MEQ TAB.ER PO SCH ×2 (09:14→17:28)
[2016-08-20] MEDS: METHYLPHENIDATE HCL 10 MG TAB PO SCH (09:15)
[2016-08-20] MEDS: FLUTICASONE 50MCG/SPRAY NASAL 16GM EA NOSTRIL SCH (09:16)
[2016-08-20 11:50] VITALS: TEMP 97.6
--- NOTE | 2016-08-20 14:22 | P.DS ---
Providers Date of admission: 08/18/16 14:33 Expected date of discharge: 08/20/16 Attending physician: Dirk Esquivel Primary care physician: Sarah Lena [facility] Course: 1. Chest pain: Myocardial infarction ruled out. Patient evaluated and clear by cardiology. They've added Imdur 30 mg daily. Continue an aspirin and statin. Troponins were negative 3. EKG had shown sinus bradycardia with a heart rate 55. Chest x-ray no acute changes. Echo shows an EF of 55-60% with no significant valvular abnormality. Patient's chest pain is improving. 2. Acute on chronic kidney injury, stage IIIa: Creatinine 1.18. We'll start normal saline at 50 mL an hour for 8 hours. Repeat labs in a.m. 3. History of CVA and expressive aphasia. Continue daily aspirin 4. History of pulmonary embolism: Resume home Coumadin. Check PT/INR in a.m. 5. History of multiple sclerosis no evidence of exacerbation at this time 6. Hypothyroidism continue Synthroid 7. Chronic pain: Resume fentanyl patch Plan - Discharge Summary Discharge Medication List Aspirin 81 mg PO DAILY@89911/08/13 [History] Baclofen [Lioresal] 10 mg PO DAILY@169911/08/13 [History] Citalopram Hydrobromide [CeleXA] 40 mg PO HS@209911/08/13 [History] Ferrous Sulfate [Feosol] 325 mg PO DAILY@89911/08/13 [History] Fexofenadine HCl [Miim Allergy] 180 mg PO DAILY@169911/08/13 [History] Furosemide [Lasix] 40 mg PO BID@09,169911/08/13 [History] Levothyroxine Sodium [Synthroid] 75 mcg PO DAILY@59911/08/13 [History] Montelukast [Singulair] 10 mg PO DAILY@169911/08/13 [History] Nitroglycerin Sl Tabs [Nitrostat] 0.4 mg SUBLINGUAL Q5M PRN 11/08/13 [History] Pantoprazole Sodium [Protonix] 40 mg PO DAILY@59911/08/13 [History] Potassium Chloride [Potassium Chloride ER] 20 meq PO BID@0900,169911/08/13 [ History] Biotin 5 mg PO BID@0900,1700 03/05/14 [History] Cholecalciferol [Vitamin D3] 2,000 unit PO DAILY@89911/18/15 [History] Dimethyl Fumarate [Tecfidera] 240 mg PO BID@899,209911/18/15 [History] Fluticasone Nasal [place] [Flonase Nasal [place]] 1 spray EA NOSTRIL DAILY@899 [History] Methylphenidate HCl [Ritalin] 20 mg PO DAILY@89911/18/15 [History] Pravastatin Sodium [Pravachol] 20 mg PO HS@209911/18/15 [History] Warfarin Sodium 5 mg PO MO@169911/18/15 [History] Warfarin [Coumadin] 7.5 mg PO SUTUWETHFRSA@169911/18/15 [History] fentaNYL [Fentanyl] 25 mcg TRANSDERM Q72H 11/18/15 [History] HYDROcodone/APAP 5-325MG [[place] 5-325] 1 tab PO Q6HR PRN 07/13/16 [History] Pregabalin [Lyrica] 100 mg PO TID@0900,170,209907/13/16 [History] Folic Acid 0.4 mg PO DAILY@89908/18/16 [History] Isosorbide Mononitrate ER [Imdur] 30 mg PO DAILY tab.er.24h 08/20/16 [Rx] Follow up Appointment(s)/Referral(s): Sarah Paredes MD [Primary Care Provider] - 1-2 days Diaz Dowling MD [STAFF PHYSICIAN] - 2 Weeks Discharge Disposition: HOME SELF-CARE
[2016-08-20] MEDS: HYDROcodone/APAP 5-325MG 1 EACH TAB PO PRN (14:25)
[2016-08-20] MEDS: MONTELUKAST 10 MG TAB PO SCH (17:29)
[2016-08-20] MEDS: WARFARIN 7.5 MG TAB PO SCH (17:29)
[2016-08-20] MEDS: BACLOFEN 10 MG TAB PO SCH (17:29)
[2016-08-20] MEDS: LORATADINE 10 MG TAB PO SCH (17:29)
[2016-08-20 17:32] VITALS: BP 111/62; PULSE 57; RESP 16
[2016-08-22] MEDS ORDERED: WARFARIN 5 MG TAB PO SCH (17:00)
== END 2016-08-20 18:22 | disposition home or self-care (01) ==
LOC: EC 12:30 → 3OBS 14:33
PROVIDERS: ADMIT Internal Medicine; ATTEND Internal Medicine
DX: R07.89 Other chest pain (principal); I69.320 Aphasia following cerebral infarction; Z79.82 Long term (current) use of aspirin; Z79.899 Other long term (current) drug therapy; Z79.51 Long term (current) use of inhaled steroids; Z79.01 Long term (current) use of anticoagulants; Z91.048 Other nonmedicinal substance allergy status; F32.9 Major depressive disorder, single episode, unspecified; I69.354 Hemiplegia and hemiparesis following cerebral infarction affecting left non-dominant side; E03.9 Hypothyroidism, unspecified; Z86.711 Personal history of pulmonary embolism; G47.33 Obstructive sleep apnea (adult) (pediatric); N17.9 Acute kidney failure, unspecified; N18.3 Chronic kidney disease, stage 3 (moderate); G35 Multiple sclerosis; G89.29 Other chronic pain; E78.5 Hyperlipidemia, unspecified; M79.7 Fibromyalgia; E66.9 Obesity, unspecified; Z68.43 Body mass index [BMI] 50.0-59.9, adult; Z79.891 Long term (current) use of opiate analgesic; Z82.49 Family history of ischemic heart disease and other diseases of the circulatory system; Z87.74 Personal history of (corrected) congenital malformations of heart and circulatory system
CPT/HCPCS: 99291; 96376; 36415; 94760; 93005; 93306; 80061; 80053 ×3; 82550 ×2; 82553 ×2; 83735; 84484 ×2; 85025 ×3; 85610 ×3; 85730 ×2; 71020; 96365; G0378 ×3; J1644 ×3; 96366

== ENCOUNTER → 2017-06-28 | Outpatient (CLI) | payer MEDICARE ==
--- NOTE | 2017-06-30 11:02 | MM ---
Reason for exam: screening (asymptomatic). Last mammogram was performed 2 years and 4 months ago. History: Patient is postmenopausal. Family history of premenopausal breast cancer in aunt at age 45, breast cancer in aunt, and breast cancer in aunt at age 70. Benign cyst aspiration of the right breast, 1995. Physical Findings: A clinical breast exam by your physician is recommended on an annual basis and results should be correlated with mammographic findings. MG 3D Screening Mammo W/Cad Bilateral CC and MLO view(s) were taken. Prior study comparison: February 12, 2015, bilateral MG screening mammo w CAD. November 09, 2012, bilateral digital screening mammo w/CAD. There are scattered fibroglandular densities. Finding: There are subtle intermediate concern, suspicious fine, grouped/clustered calcifications in the 3 o'clock middle position of the left breast 12cm from the nipple, may have been present previously. New finding since February 12, 2015 and November 09, 2012. ASSESSMENT: Incomplete: need additional imaging evaluation, BI-RAD 0 RECOMMENDATION: Special view mammogram of the left breast. [facility] will attempt to contact patient to return for supplemental views.
== END | disposition home or self-care (01) ==
LOC: RADMAMWWP 13:41
PROVIDERS: ATTEND Internal Medicine
DX: Z12.31 Encounter for screening mammogram for malignant neoplasm of breast (principal)
CPT/HCPCS: 77063; G0202

== ENCOUNTER → 2017-07-05 | Outpatient (CLI) | payer MEDICARE ==
--- NOTE | 2017-07-06 07:02 | MM ---
Reason for exam: additional evaluation requested from abnormal screening. Last mammogram was performed less than 1 month ago. History: Patient is postmenopausal. Family history of premenopausal breast cancer in aunt at age 45, breast cancer in aunt, and breast cancer in aunt at age 70. Benign cyst aspiration of the right breast, 1995. Physical Findings: Nurse did not find any significant physical abnormalities on exam. MG 3D Work Up W/Cad LT CC with magnification, ML with magnification, and ML view(s) were taken of the left breast. Prior study comparison: June 28, 2017, bilateral MG 3d screening mammo w/cad. February 12, 2015, bilateral MG screening mammo w CAD. There are scattered fibroglandular densities. Finding: There are heterogeneous, grouped/clustered calcifications in the upper outer quadrant, middle position of the left breast, persists and do not layer. These results were verbally communicated with the patient and result sheet given to the patient on 07/05/17. ASSESSMENT: Suspicious, BI-RAD 4 RECOMMENDATION: Stereotactic core biopsy of the left breast. Called Dr. Paredes with mammographic findings and has scheduled an appointment for the patient for 08/02/17 at 3:[address] Nunez. Biopsy scheduled for 07/18/17 at 2:20. PRELIMINARY REPORT CALLED AND FAXED TO DR. NUNEZ ON 07/06/17.
== END | disposition home or self-care (01) ==
LOC: RADMAMWWP 13:06
PROVIDERS: ATTEND Internal Medicine
DX: R92.8 Other abnormal and inconclusive findings on diagnostic imaging of breast (principal)
CPT/HCPCS: 77065; G0279

== ENCOUNTER → 2017-07-18 | Day surgery (SDC) | payer MEDICARE ==
[2017-07-18 14:07] LABS: Partial Thromboplastin Time 23.5 sec (22.0-30.0); Prothrombin Time 10.2 sec (9.0-12.0)
[2017-07-18 14:17] VITALS: PULSE 60; RESP 16; BMI 85.1
[2017-07-18 15:47] VITALS: BP 127/74; TEMP 98.1
--- NOTE | 2017-07-21 09:41 | MM ---
Stereotactic Mammotome core biopsy left breast. HISTORY: Left breast microcalcifications The calcifications in question within the left breast were targeted by the undersigned. Procedure was performed by the undersigned. Informed consent was obtained and all of the patients questions were answered. The standard sterile technique was utilized and appropriate local anesthesia was obtained with 1% licocaine. Mammotome probe was advanced and multiple core samples were obtained and sent to pathology for interpretation. Microclip marker was deployed at the site of biopsy. Post procedural mammogram demonstrates appropriate deployment of radiopaque clip marker. The patient tolerated the procedure well and left the department in stable condition. Pathology results are pending. IMPRESSION: Successful stereotactic core biopsy left breast with pathology results pending. Pathology Results: Benign BREAST, LEFT, STEREOTACTIC CORE BIOPSY: FIBROCYSTIC CHANGE (STROMAL FIBROSIS, CYST FORMATION, ADENOSIS, COLUMNAR CELL CHANGE AND DUCT HYPERPLASIA). CALCIFICATIONS ARE IDENTIFIED. Recommendation Follow up mammogram of the left breast in 6 months. NIDIA
== END ==
LOC: RADMAMWWP 13:06
PROVIDERS: ATTEND Surgery
DX: N60.32 Fibrosclerosis of left breast (principal); N60.02 Solitary cyst of left breast; N60.22 Fibroadenosis of left breast; N60.92 Unspecified benign mammary dysplasia of left breast; R92.1 Mammographic calcification found on diagnostic imaging of breast
CPT/HCPCS: 88305; 85610; 85730; 19081; A4648; J2001

== ENCOUNTER → 2017-08-31 | Outpatient (CLI) | payer MEDICARE ==
--- NOTE | 2017-09-01 08:57 | MR ---
EXAMINATION TYPE: MR lumbar spine wo con DATE OF EXAM: 08/31/2017 COMPARISON: NONE HISTORY: LBP x years, hx MS TECHNIQUE: Multiplanar, multisequence images of the lumbar spine were acquired. FINDINGS: The lumbar spine vertebral bodies maintain normal vertebral body height and alignment. Bone marrow signal is within normal limits. There is a T2 hyperintense and T1 hypointense right renal upp er pole 1.0 cm lesion as well as a lower pole similar appearing 8 mm lesion, possibly related to cyst s although incompletely characterized. Conus medullaris is unremarkable terminating at L1. L1-L2: Normal disc appearance without desiccation. No herniation, protrusion or disc bulging. No ca nal stenosis is present. Foramina are patent bilaterally. L2-L3: There is a broad-based disc bulge, mild ligamentum flavum buckling, and facet arthropathy resu lting in minimal right neural foraminal narrowing. Spinal canal and left neural foramen are patent. L3-L4: There is a broad-based disc bulge, left eccentric resulting in mild bilateral neural foraminal narrowing. Facet arthropathy and ligamentum flavum buckling are seen although there is no evidence o f spinal canal stenosis. L4-L5: There is a broad-based small disc bulge resulting in mild bilateral neural foraminal narrowing , right slightly greater than left. Ligamentum flavum buckling and facet arthropathy are seen that ar e mild without spinal canal stenosis. L5-S1: There is a small central disc herniation/protrusion superimposed upon a broad-based disc bulge examination with facet arthropathy and ligamentum flavum buckling resulting in mild bilateral neural foraminal narrowing. No spinal canal stenosis. Lumbar segments are intact. No paraspinal masses are identified. Conus medullaris has a normal appe arance. IMPRESSION: 1. Very small disc herniation at L4-L5 superimposed upon degenerative disc disease resulting in mild bilateral neural foraminal narrowing. 2. No evidence of spinal canal stenosis. 3. Mild multilevel degenerative disc disease resulting in multilevel mild neural foraminal narrowing as described above. 4. Right renal lesions that are incompletely characterized, possible cyst. Ultrasound could be perfor med for further characterization.
--- NOTE | 2017-09-04 11:35 | MR ---
HISTORY: MS follow up, compare to prior EXAMINATION TYPE: MR brain wo/w con DATE OF EXAM: 08/31/2017 COMPARISON: NONE 05/27/2016 TECHNIQUE: Multiplanar, multisequence images of the brain and brainstem is performed without and with utilizing 10 mL intravenous Gadavist gadolinium contrast. Demyelinating disease protocol with additional Sagit hector Flair sequence performed. FINDINGS: T2 Lesions Present : Yes Approximate Number of Lesions: 2 on the right and one on the left in addition to left nonspecific per iventricular white matter change surrounding the area of encephalomalacia in the distribution of the left middle cerebral artery from prior ischemia. Locations Identified : Subcortical and periventricular Size of Reference Lesion(s): 1. 0.4 cm x 0.7 cm x 0.6 cm on axial image 20 and sagittal image 11 2 0.5 cm x 0.3 cm x 0.3 cm on axial image 21 and sagittal image 27 Enhancing Lesion(s) Present: No Change from Prior: Stable There is encephalomalacia in the left frontal, parietal, and temporal lobes with ex vacuo dilatation of the lateral horn of the left ventricle from prior infarct in the left middle cerebral artery distr ibution. Major intracranial flow voids are maintained. Diffusion weighted images demonstrate no evidence of a recent infarct or other diffusion abnormality. There is no worrisome extra-axial fluid collection. Midline structures demonstrate normal morpholo gy. The craniocervical junction appears within normal limits. There is a possible small developmenta l venous anomaly with contrast seen at the ventral aspect of the mid to low on axial postcontrast renee ge 4 and 5. Otherwise the contrast images demonstrate no abnormal enhancement. The dural venous sinus es appear patent. The globes are intact. There is scant mucosal thickening within the maxillary and e thmoid sinuses. Remaining paranasal sinuses and mastoid air cells are well aerated. IMPRESSION: 1. Few stable nonenhancing, nonactive, white matter plaques that may relate to demyelinating plaques in this patient with a history of MS although a left-sided singular plaque also may relate to sequela of the prior left middle cerebral artery infarct. 2. Possible small developmental venous anomaly along the ventral aspect of the medulla. Attention on follow-up exams. 3. Encephalomalacia of the left frontal, temporal, and parietal lobes from prior left MCA infarct. 4. Mild paranasal sinus disease.
== END | disposition home or self-care (01) ==
LOC: RADMRIMAIN 15:13
PROVIDERS: ATTEND Psychiatry & Neurology Neurology
DX: M99.73 Connective tissue and disc stenosis of intervertebral foramina of lumbar region (principal); M51.26 Other intervertebral disc displacement, lumbar region; M51.37 Other intervertebral disc degeneration, lumbosacral region; G93.89 Other specified disorders of brain; R90.89 Other abnormal findings on diagnostic imaging of central nervous system; G35 Multiple sclerosis
CPT/HCPCS: 70553; 72148; A9581

== ENCOUNTER 2017-09-12 14:10 | Inpatient (IN) | payer MEDICARE, OTHER ==
[2017-09-12] MEDS ORDERED: SODIUM CHLORIDE 0.9% 500 ML IV STA (15:45)
[2017-09-12 16:49] LABS: Basophils % (A) 1 %; Eosinophils # (A) 0.1 k/uL (0-0.7); Eosinophils % (A) 2 %; HCT 42.4 % (34.0-46.0); HGB 14.9 gm/dL (11.4-16.0); Lymphocytes # (A) 0.6 k/uL (1.0-4.8); Lymphocytes % (A) 17 %; MCH 30.5 pg (25.0-35.0); MCHC 35.2 g/dL (31.0-37.0); MCV 86.5 fL (80.0-100.0); Mean Platelet Volume 10.3; Monocytes # (A) 0.2 k/uL (0-1.0); Monocytes % (A) 6 %; Neutrophils # (A) 2.5 k/uL (1.3-7.7); Neutrophils % (A) 72 %; RBC 4.89 m/uL (3.80-5.40); RDW 13.3 % (11.5-15.5); WBC 3.5 k/uL (3.8-10.6)
[2017-09-12 16:54] LABS: Albumin 4.2 g/dL (3.5-5.0); Calcium 9.7 mg/dL (8.4-10.2); Potassium 4.4 mmol/L (3.5-5.1); Total Bilirubin 0.8 mg/dL (0.2-1.3); Total Protein 6.5 g/dL (6.3-8.2)
[2017-09-12 17:21] LABS: Platelet Count 98 k/uL (150-450)
--- NOTE | 2017-09-12 17:41 | ED ---
General Adult HPI <Alexei Piper - Last Filed: 09/12/17 17:46> - General Source: patient Mode of arrival: wheelchair Limitations: no limitations <Gokul Keller - Last Filed: 09/12/17 22:51> - General Chief complaint: Recheck/Abnormal Lab/Rx Stated complaint: MS flare up-sent by Dr. Iverson Seen by Provider: 09/12/17 15:25 - History of Present Illness Initial comments: 61-year-old female with a history of multiple sclerosis presents to the emergency department for a chief complaint of bilateral numbness and weakness. Patient states this is similar to her previous flareups for multiple sclerosis. Patient states that this started happening about a week ago. She did contact Dr. Paredes for a direct admit for IV steroids but he did not have any beds. Patient denies chest pain, shortness of breath, or abdominal pain. Patient is currently not in pain but is uncomfortable with the numb feeling. Patient has a history of CVA 10 years ago. She has residual right-sided weakness and speech impairments. Her helped with the HPI because of the speech impairments. No new weakness is noted. Cranial nerves are intact and patient is alert and oriented. Patient has been taking her medications for multiple sclerosis. Patient has no other complaints at this time. (Gokul Keller) - Related Data Home Medications Medication Instructions Recorded Confirmed Aspirin 81 mg PO DAILY 11/08/13 09/12/17 Baclofen [Lioresal] 10 mg PO DAILY 11/08/13 09/12/17 Citalopram Hydrobromide [CeleXA] 40 mg PO HS 11/08/13 09/12/17 Ferrous Sulfate [Feosol] 325 mg PO DAILY 11/08/13 09/12/17 Fexofenadine HCl [Mimi Allergy] 180 mg PO DAILY 11/08/13 09/12/17 Furosemide [Lasix] 40 mg PO BID 11/08/13 09/12/17 Montelukast [Singulair] 10 mg PO DAILY 11/08/13 09/12/17 Nitroglycerin Sl Tabs [Nitrostat] 0.4 mg SUBLINGUAL Q5M PRN 11/08/13 09/12/17 Pantoprazole Sodium [Protonix] 40 mg PO DAILY 11/08/13 09/12/17 Potassium Chloride [Potassium 20 meq PO BID 11/08/13 09/12/17 Chloride ER] Cholecalciferol [Vitamin D3] 2,000 unit PO DAILY 11/18/15 09/12/17 Dimethyl Fumarate [Tecfidera] 240 mg PO BID 11/18/15 09/12/17 Fluticasone Nasal [place] [Flonase 1 spray EA NOSTRIL DAILY 11/18/15 09/12/17 Nasal [place]] Methylphenidate HCl [Ritalin] 20 mg PO BID 11/18/15 09/12/17 Pravastatin Sodium [Pravachol] 20 mg PO HS 11/18/15 09/12/17 Warfarin Sodium 5 mg PO MO@1700 11/18/15 09/12/17 Warfarin [Coumadin] 7.5 mg PO SUTUWETHFRSA@1700 11/18/15 09/12/17 fentaNYL [Fentanyl] 25 mcg TRANSDERM Q72H 11/18/15 09/12/17 HYDROcodone/APAP 5-325MG [[place] 1 tab PO Q6HR PRN 07/13/16 09/12/17 5-325] Pregabalin [Lyrica] 100 mg PO TID 07/13/16 09/12/17 Folic Acid 0.4 mg PO DAILY 08/18/16 09/12/17 Biotin 10,000 mcg PO DAILY 07/06/17 09/12/17 Bisacodyl 10 mg PO DAILY 09/12/17 09/12/17 Cyanocobalamin/Folic AC/Vit B6 1 tab PO DAILY 09/12/17 09/12/17 [Fabb Tablet] Isosorbide Mononitrate ER [Imdur] 30 mg PO DAILY 09/12/17 09/12/17 Levothyroxine Sodium [Synthroid] 50 mcg PO DAILY 09/12/17 09/12/17 Nystatin 100,000 Unit/gm Powd 1 applic TOPICAL BID 09/12/17 09/12/17 [Mycostatin Powder] Allergies Allergy/AdvReac Type Severity Reaction Status Date / Time adhesive Allergy SKIN Verified 09/12/17 16:34 PEELING Review of Systems ROS Other: All systems not noted in ROS Statement are negative. <Alexei Piper - Last Filed: 09/12/17 17:46> ROS Other: All systems not noted in ROS Statement are negative. <Arianna,Gokul P - Last Filed: 09/12/17 22:51> ROS Statement: Those systems with pertinent positive or pertinent negative responses have been documented in the HPI. Past Medical History Past Medical History: Chest Pain / Angina, CVA/TIA, Fibromyalgia, Musculoskeletal Disorder, Neurologic Disorder, Osteoarthritis (OA), Pulmonary Embolus (PE), Sleep Apnea/CPAP/BIPAP, Thyroid Disorder Additional Past Medical History / Comment(s): MULTIPLE SCLEROSIS, HX OF CVA 2006 . DYSPHASIA, MIGRAINES, SLEEP APNEA(HAS C-PAP MACHINE BUT DOES NOT USE) ABD HERNIA,CHRONIC PAIN ESPECIALLY ON R SIDE OF BODY AND LOW BACK . PAINFUL FOR HER TO LIE FLAT. HX OF NOSEBLEED JUL 2014 AND RECEIVED PLASMA TRANSFUSION. takes pills with applesauce. History of Any Multi-Drug Resistant Organisms: VRE Date of last positivie culture/infection: 10/24/09 confirmed with infectious disease nurse on 08/18/16. MDRO Source:: URINE Past Surgical History: Appendectomy, Cholecystectomy, Hysterectomy Additional Past Surgical History / Comment(s): Incisional hernia repair, laparoscopic lysis of adhesions in 1987, ganglion cyst removal of the left wrist , patent foramen ovale patch in 2006, RF ablation for back pain. Past Anesthesia/Blood Transfusion Reactions: No Reported Reaction Past Psychological History: No Psychological Hx Reported, Depression Smoking Status: Never smoker Past Alcohol Use History: None Reported Past Drug Use History: None Reported - Past Family History Mother Family Medical History: Hypertension Additional Family Medical History / Comment(s): osteoporosis Father Family Medical History: Dementia <Gokul Keller P - Last Filed: 09/12/17 22:51> General Exam Limitations: no limitations General appearance: alert, in no apparent distress Head exam: Present: atraumatic, normocephalic, normal inspection Eye exam: Present: normal appearance, PERRL, EOMI. Absent: scleral icterus, conjunctival injection, periorbital swelling Respiratory exam: Present: normal lung sounds bilaterally. Absent: respiratory distress, wheezes, rales, rhonchi, stridor Cardiovascular Exam: Present: regular rate, normal rhythm, normal heart sounds. Absent: systolic murmur, diastolic murmur, rubs, gallop, clicks GI/Abdominal exam: Present: soft, normal bowel sounds. Absent: distended, tenderness, guarding, rebound, rigid Extremities exam: Present: other (Patient states she has a numb feeling that started in her feet and is extending up to her arms. This has been ongoing for a week.). Absent: tenderness Neurological exam: Present: alert, oriented X3, CN II-XII intact <Gokul Keller - Last Filed: 09/12/17 22:51> Vital Signs 09/12/17 09/12/17 09/12/17 14:33 18:33 19:24 Temperature 97.7 F Pulse Rate 57 L 56 L 56 L Respiratory 18 16 16 Rate Blood Pressure 102/55 99/56 105/57 O2 Sat by Pulse 91 L 96 95 Oximetry 09/12/17 20:01 Temperature Pulse Rate 58 L Respiratory 18 Rate Blood Pressure 137/55 O2 Sat by Pulse 99 Oximetry Medical Decision Making - Lab Data Result diagrams: 09/12/17 16:23 09/12/17 16:23 <Alexei Piper - Last Filed: 09/12/17 17:46> - Lab Data Result diagrams: 09/12/17 16:23 09/12/17 16:23 <Gokul Keller - Last Filed: 09/12/17 22:51> - Medical Decision Making Medical decision making; this is a 61-year-old female was sent in by her family doctor because of bilateral lower leg weakening. Exacerbation of her MS. I discussed the case with her neurologist, Dr. Elizabeth. He recommends admitting the patient to Dr. Paredes. He will consult. He recommends starting site Medrol 250 IV piggyback every 8 hours the patient's to be on Accu-Cheks before meals and at bedtime and sliding scale. Dr. Piper (Alexei Piper) 61-year-old female patient presents for chief complaint of MS exacerbation. Patient has had a history of MS and is currently taking medications for it. Patient states she is not in pain but has numbness extending through her feet and onto her arms. She has been experiencing this for the past week. She did contact Dr. Paredes for a direct admit but she was not able to be admitted because he didn't have any beds. However he usually prescribes her IV steroids in this case. She has not had IV steroids in the past year. CBC and CMP were within normal limits. Dr. Elizabeth was consulted and he recommended admitting the patient under Dr. Paredes and starting Solu-Medrol. (Gokul Keller) - Lab Data Lab Results 09/12/17 09/12/17 09/12/17 Range/Units 16:23 16:23 16:23 WBC 3.5 L (3.8-10.6) k/uL RBC 4.89 (3.80-5.40) m/uL Hgb 14.9 (11.4-16.0) gm/dL Hct 42.4 (34.0-46.0) % MCV 86.5 (80.0-100.0) fL MCH 30.5 (25.0-35.0) pg MCHC 35.2 (31.0-37.0) g/dL RDW 13.3 (11.5-15.5) % Plt Count 98 L (150-450) k/uL Neutrophils % 72 % Lymphocytes % 17 % Monocytes % 6 % Eosinophils % 2 % Basophils % 1 % Neutrophils # 2.5 (1.3-7.7) k/uL Lymphocytes # 0.6 L (1.0-4.8) k/uL Monocytes # 0.2 (0-1.0) k/uL Eosinophils # 0.1 (0-0.7) k/uL Basophils # 0.0 (0-0.2) k/uL PT 17.0 H (9.0-12.0) sec INR 1.9 H (<1.2) Sodium 144 (137-145) mmol/L Potassium 4.4 (3.5-5.1) mmol/L Chloride 102 (98-107) mmol/L Carbon Dioxide 34 H (22-30) mmol/L Anion Gap 8 mmol/L BUN 19 H (7-17) mg/dL Creatinine 0.90 (0.52-1.04) mg/dL Est GFR (CKD-EPI)AfAm 79 (>60 ml/min/1.73 sqM) Est GFR (CKD-EPI)NonAf 69 (>60 ml/min/1.73 sqM) Glucose 91 (74-99) mg/dL Calcium 9.7 (8.4-10.2) mg/dL Total Bilirubin 0.8 (0.2-1.3) mg/dL AST 26 (14-36) U/L ALT 33 (9-52) U/L Alkaline Phosphatase 74 (38-126) U/L Total Protein 6.5 (6.3-8.2) g/dL Albumin 4.2 (3.5-5.0) g/dL Disposition <Alexei Piper - Last Filed: 09/12/17 17:46> Time of Disposition: 18:00 Decision Time: 18:00 <Gokul Keller - Last Filed: 09/12/17 22:51> Clinical Impression: Exacerbation of multiple sclerosis Disposition: ADMITTED IP TO THIS HOSP Condition: Good Referrals: Sarah Paredes MD [Primary Care Provider] - 1-2 days
[2017-09-12] MEDS ORDERED: NALOXONE 0.4 MG/ML 1 ML VIAL IV PRN (17:58)
[2017-09-12] MEDS ORDERED: HYDROcodone/APAP 5-325MG 1 EACH TAB PO PRN (18:16)
[2017-09-12] MEDS ORDERED: NITROGLYCERIN SL TABS 0.4 MG TAB SUBLINGUAL PRN (18:16)
[2017-09-12] MEDS ORDERED: HYDROcodone/APAP 5-325MG 1 EACH TAB PO STA (18:20)
[2017-09-12 18:51] LABS: INR 1.9 (<1.2)
[2017-09-12] MEDS: PREGABALIN 100 MG CAP PO SCH (22:18)
[2017-09-12] MEDS: CITALOPRAM HYDROBROMIDE 20 MG TAB PO SCH (22:18)
[2017-09-12] MEDS: PRAVASTATIN SODIUM 20 MG TAB PO SCH (22:18)
[2017-09-12] MEDS: POTASSIUM CHLORIDE ER 20 MEQ TAB.ER PO SCH (22:18)
[2017-09-12] MEDS: FUROSEMIDE 40 MG TAB PO SCH (22:22)
[2017-09-12] MEDS: ACETAMINOPHEN TAB 325 MG TAB PO PRN (22:26)
[2017-09-13] MEDS ORDERED: methylPREDNISolone SOD SUCCI 250 MG in SODIUM CHLORIDE 0.9% 100 ML IVPB STA (02:23)
[2017-09-13 03:49] LABS: Hemoglobin A1C 5.9 % (4.0-6.0)
[2017-09-13] MEDS: NON-FORMULARY DRUG (Dimethyl Fumarate [Tecfidera] 240 MG) PO SCH ×3 (08:35→22:41)
[2017-09-13] MEDS: SODIUM CHLORIDE 0.9% 1,000 ML IV SCH ×3 (08:35→19:42)
[2017-09-13] MEDS: INSULIN ASPART 100 UNIT/ML 1 ML 10 ML VIAL SQ SCH ×5 (08:36→22:44)
[2017-09-13] MEDS: METHYLPHENIDATE HCL 10 MG TAB PO SCH ×3 (08:36→21:49)
[2017-09-13 08:43] LABS: Glucose,Whole Blood 170 mg/dL (75-99)
[2017-09-13] MEDS: ASPIRIN 81 MG PO SCH (08:57)
[2017-09-13] MEDS: LORATADINE 10 MG TAB PO SCH (08:57)
[2017-09-13] MEDS: FUROSEMIDE 40 MG TAB PO SCH ×2 (08:57→23:12)
[2017-09-13] MEDS: PANTOPRAZOLE 40 MG TABLET PO SCH (08:57)
[2017-09-13] MEDS: FOLIC ACID 1 MG TAB PO SCH (08:57)
[2017-09-13] MEDS: FERROUS SULFATE 325 MG TAB PO SCH (08:57)
[2017-09-13] MEDS: BACLOFEN 10 MG TAB PO SCH (08:57)
[2017-09-13] MEDS: CHOLECALCIFEROL 1,000 UNIT TAB PO SCH (08:57)
[2017-09-13] MEDS: MONTELUKAST 10 MG TAB PO SCH (08:57)
[2017-09-13] MEDS: POTASSIUM CHLORIDE ER 20 MEQ TAB.ER PO SCH ×2 (08:57→23:13)
[2017-09-13] MEDS: LEVOTHYROXINE 50 MCG TAB PO SCH (08:57)
[2017-09-13] MEDS: BISACODYL 5 MG TABLET.DR PO SCH (09:12)
[2017-09-13] MEDS: NYSTATIN 100,000 UNIT/GM POWD 15 GM TOPICAL SCH ×2 (09:39→21:52)
[2017-09-13] MEDS: PREGABALIN 100 MG CAP PO SCH ×3 (09:40→21:48)
[2017-09-13 12:52] LABS: Glucose,Whole Blood 172 mg/dL (75-99)
[2017-09-13] MEDS: ACETAMINOPHEN TAB 325 MG TAB PO PRN ×2 (13:00→19:42)
[2017-09-13 17:03] LABS: Glucose,Whole Blood 190 mg/dL (75-99)
--- NOTE | 2017-09-13 17:49 | P.HPIM ---
History of Present Illness H&P Date: 09/13/17 Huong Cooper is a 61-year-old female with a history of multiple sclerosis who presented to [facility] emergency department for a chief complaint of bilateral numbness and weakness. Patient states this is similar to her previous flareups for multiple sclerosis. Patient states that this started happening about a week ago. Patient denies chest pain, shortness of breath, or abdominal pain. Patient is currently not in pain but is uncomfortable with the numb feeling. Patient has a history of stroke 10 years ago. She has residual right-sided weakness and speech impairments. Her helped with answering questions because of the speech impairments. No new weakness is noted. Past Medical History Past Medical History: Chest Pain / Angina, CVA/TIA, Fibromyalgia, Musculoskeletal Disorder, Neurologic Disorder, Osteoarthritis (OA), Pulmonary Embolus (PE), Sleep Apnea/CPAP/BIPAP, Thyroid Disorder Additional Past Medical History / Comment(s): MULTIPLE SCLEROSIS, HX OF CVA 2006 WITH R SIDED WEAKNESS AND DYSPHASIA-MUCH IMPROVED, MIGRAINES, SLEEP APNEA( HAS C-PAP MACHINE BUT DOES NOT USE) ABD HERNIA,CHRONIC PAIN ESPECIALLY ON R SIDE OF BODY AND LOW BACK . PAINFUL FOR HER TO LIE FLAT. HX OF NOSEBLEED JUL 2014 AND RECEIVED PLASMA TRANSFUSION. takes pills with applesauce. History of Any Multi-Drug Resistant Organisms: VRE Date of last positivie culture/infection: 10/24/09 confirmed with infectious disease nurse on 08/18/16. MDRO Source:: URINE Past Surgical History: Appendectomy, Cholecystectomy, Hysterectomy Additional Past Surgical History / Comment(s): Incisional hernia repair, laparoscopic lysis of adhesions in 1987, ganglion cyst removal of the left wrist , patent foramen ovale patch in 2006, RF ablation for back pain. Past Anesthesia/Blood Transfusion Reactions: No Reported Reaction Smoking Status: Never smoker - Past Family History Mother Family Medical History: Hypertension Additional Family Medical History / Comment(s): osteoporosis Father Family Medical History: Dementia Medications and Allergies Home Medications Medication Instructions Recorded Confirmed Type Aspirin 81 mg PO DAILY 11/08/13 09/12/17 History Baclofen [Lioresal] 10 mg PO DAILY 11/08/13 09/12/17 History Citalopram Hydrobromide [CeleXA] 40 mg PO HS 11/08/13 09/12/17 History Ferrous Sulfate [Feosol] 325 mg PO DAILY 11/08/13 09/12/17 History Fexofenadine HCl [Mimi Allergy] 180 mg PO DAILY 11/08/13 09/12/17 History Furosemide [Lasix] 40 mg PO BID 11/08/13 09/12/17 History Montelukast [Singulair] 10 mg PO DAILY 11/08/13 09/12/17 History Nitroglycerin Sl Tabs [Nitrostat] 0.4 mg SUBLINGUAL Q5M PRN 11/08/13 09/12/17 History Pantoprazole Sodium [Protonix] 40 mg PO DAILY 11/08/13 09/12/17 History Potassium Chloride [Potassium 20 meq PO BID 11/08/13 09/12/17 History Chloride ER] Cholecalciferol [Vitamin D3] 2,000 unit PO DAILY 11/18/15 09/12/17 History Dimethyl Fumarate [Tecfidera] 240 mg PO BID 11/18/15 09/12/17 History Fluticasone Nasal [place] [Flonase 1 spray EA NOSTRIL DAILY 11/18/15 09/12/17 History Nasal [place]] Methylphenidate HCl [Ritalin] 20 mg PO BID 11/18/15 09/12/17 History Pravastatin Sodium [Pravachol] 20 mg PO HS 11/18/15 09/12/17 History Warfarin Sodium 5 mg PO MO@1700 11/18/15 09/12/17 History Warfarin [Coumadin] 7.5 mg PO SUTUWETHFRSA@1700 11/18/15 09/12/17 History fentaNYL [Fentanyl] 25 mcg TRANSDERM Q72H 11/18/15 09/12/17 History HYDROcodone/APAP 5-325MG [[place] 1 tab PO Q6HR PRN 07/13/16 09/12/17 History 5-325] Pregabalin [Lyrica] 100 mg PO TID 07/13/16 09/12/17 History Folic Acid 0.4 mg PO DAILY 08/18/16 09/12/17 History Biotin 10,000 mcg PO DAILY 07/06/17 09/12/17 History Bisacodyl 10 mg PO DAILY 09/12/17 09/12/17 History Cyanocobalamin/Folic AC/Vit B6 1 tab PO DAILY 09/12/17 09/12/17 History [Fabb Tablet] Isosorbide Mononitrate ER [Imdur] 30 mg PO DAILY 09/12/17 09/12/17 History Levothyroxine Sodium [Synthroid] 50 mcg PO DAILY 09/12/17 09/12/17 History Nystatin 100,000 Unit/gm Powd 1 applic TOPICAL BID 09/12/17 09/12/17 History [Mycostatin Powder] Allergies Allergy/AdvReac Type Severity Reaction Status Date / Time adhesive Allergy SKIN Verified 09/12/17 16:34 PEELING Physical Exam Vitals: Vital Signs Temp Pulse Pulse Resp BP BP Pulse Ox 09/13/17 16:00 65 16 09/13/17 15:00 98.5 F 65 16 135/69 93 L 09/13/17 08:32 93 L 09/13/17 08:22 97.6 F 56 L 18 113/54 09/12/17 20:01 58 L 18 137/55 99 09/12/17 19:24 56 L 16 105/57 95 09/12/17 18:33 97.7 F 56 L 16 99/56 96 Intake and Output 09/13/17 09/13/17 09/13/17 06:59 14:59 22:59 Intake Total 225 Balance 225 Intake: Intake, IV Titration 225 Amount Sodium Chloride 0.9% 1, 225 000 ml @ 75 mls/hr IV . [id number] [facility] Rx#:[id number] Other: # Voids 1 1 Weight 96.615 kg In general patient is alert responsive in no apparent distress HEENT head normocephalic and atraumatic Neck is supple no JVD no goiter no lymphadenopathy Chest exam reveals a few scattered rhonchi bilaterally no wheezing Cardiac exam reveals regular heart sounds no gallops no murmurs Abdomen is soft nontender no organomegaly with normal bowel sounds Extremity exam reveals no edema no cyanosis or clubbing Neurological examination patient is alert and oriented 3 , having difficulty finding words to express herself which is chronic since her last stroke cranial nerve II-12 are intact. Patient has hypersensitivity to touch on the right side of her body there is generalized bilateral weakness involving both lower extremities Results CBC & Chem 7: 09/12/17 16:23 09/12/17 16:23 Labs: Abnormal Lab Results - Last 24 Hours (Table) 09/12/17 09/13/1709/13/18 Range/Units 16:23 08:34 12:47 PT 17.0 H (9.0-12.0) sec INR 1.9 H (<1.2) POC Glucose (mg/dL) 170 H 172 H (75-99) mg/dL 09/13/17 Range/Units 17:01 PT (9.0-12.0) sec INR (<1.2) POC Glucose (mg/dL) 190 H (75-99) mg/dL Thrombosis Risk Factor Assmnt - Choose All That Apply Any of the Below Risk Factors Present?: Yes Each Factor Represents 1 point: Obesity (BMI >25) Other Risk Factors: Yes Each Risk Factor Represents 2 Points: Age 61-74 years Each Risk Factor Represents 3 Points: History of DVT/PE Other congenital or acquired thrombophilia - If yes, enter type in comment: No Thrombosis Risk Factor Assessment Total Risk Factor Score: 6 Thrombosis Risk Factor Assessment Level: High Risk Assessment and Plan Plan: #1 Acute exacerbation of multiple sclerosis patient is admitted to medical floor she was started on IV Solu-Medrol 250 mg every 8 hours neurology consultation was requested #2 previous history of DVT and PE patient maintained on Coumadin INR on presentation 1.9 will continue Will check INR daily #3 underlying history of hypothyroidism maintained on Synthroid will continue #4 borderline diabetes mellitus will check hemoglobin A1c Will cover with insulin sliding scale while on steroids #5 underlying history of sleep apnea maintained on CPAP #5 underlying history of hyperlipidemia maintained on Pravachol For DVT prophylaxis patient is on Coumadin for GI prophylaxis patient is on Protonix Will follow closely during this admission
[2017-09-13] MEDS: WARFARIN 7.5 MG TAB PO SCH (18:22)
[2017-09-13 20:30] LABS: Glucose,Whole Blood 170 mg/dL (75-99)
[2017-09-13] MEDS: CITALOPRAM HYDROBROMIDE 20 MG TAB PO SCH (21:49)
[2017-09-13] MEDS: PRAVASTATIN SODIUM 20 MG TAB PO SCH (21:49)
[2017-09-14 07:11] LABS: Glucose,Whole Blood 114 mg/dL (75-99)
[2017-09-14] MEDS: INSULIN ASPART 100 UNIT/ML 1 ML 10 ML VIAL SQ SCH ×4 (07:25→22:02)
[2017-09-14 07:57] LABS: Basophils % (A) 0 %; Eosinophils % (A) 1 %; HGB 13.2 gm/dL (11.4-16.0); Lymphocytes # (A) 0.7 k/uL (1.0-4.8); Lymphocytes % (A) 13 %; MCH 29.1 pg (25.0-35.0); MCV 88.4 fL (80.0-100.0); Mean Platelet Volume 10.7; Monocytes # (A) 0.3 k/uL (0-1.0); Monocytes % (A) 5 %; Neutrophils # (A) 4.7 k/uL (1.3-7.7); Neutrophils % (A) 80 %; RBC 4.53 m/uL (3.80-5.40); RDW 13.6 % (11.5-15.5); WBC 5.9 k/uL (3.8-10.6)
[2017-09-14 08:01] LABS: Platelet Count 95 k/uL (150-450)
[2017-09-14 08:03] LABS: INR 1.9 (<1.2); Prothrombin Time 17.1 sec (9.0-12.0)
[2017-09-14 08:15] LABS: Albumin 3.8 g/dL (3.5-5.0); Calcium 9.3 mg/dL (8.4-10.2); Total Bilirubin 0.5 mg/dL (0.2-1.3); Total Protein 6.1 g/dL (6.3-8.2)
[2017-09-14] MEDS: CHOLECALCIFEROL 1,000 UNIT TAB PO SCH (08:19)
[2017-09-14] MEDS: PANTOPRAZOLE 40 MG TABLET PO SCH (08:19)
[2017-09-14] MEDS: POTASSIUM CHLORIDE ER 20 MEQ TAB.ER PO SCH ×2 (08:19→21:56)
[2017-09-14] MEDS: ASPIRIN 81 MG PO SCH (08:19)
[2017-09-14] MEDS: FOLIC ACID 1 MG TAB PO SCH (08:19)
[2017-09-14] MEDS: FUROSEMIDE 40 MG TAB PO SCH ×2 (08:19→21:56)
[2017-09-14] MEDS: BISACODYL 5 MG TABLET.DR PO SCH ×2 (08:19→08:40)
[2017-09-14] MEDS: MONTELUKAST 10 MG TAB PO SCH (08:19)
[2017-09-14] MEDS: BACLOFEN 10 MG TAB PO SCH (08:19)
[2017-09-14] MEDS: PREGABALIN 100 MG CAP PO SCH ×3 (08:19→22:02)
[2017-09-14] MEDS: METHYLPHENIDATE HCL 10 MG TAB PO SCH ×2 (08:19→22:02)
[2017-09-14] MEDS: FERROUS SULFATE 325 MG TAB PO SCH ×2 (08:19→08:38)
[2017-09-14] MEDS: LEVOTHYROXINE 50 MCG TAB PO SCH (08:19)
[2017-09-14] MEDS: NYSTATIN 100,000 UNIT/GM POWD 15 GM TOPICAL SCH ×2 (08:23→23:25)
[2017-09-14] MEDS: LORATADINE 10 MG TAB PO SCH (08:23)
[2017-09-14] MEDS ORDERED: methylPREDNISolone SOD SUCCI 250 MG in SODIUM CHLORIDE 0.9% 100 ML IVPB SCH ×2 (09:00→16:00)
[2017-09-14 11:40] LABS: Glucose,Whole Blood 124 mg/dL (75-99)
[2017-09-14] MEDS: Dimethyl Fumarate [Tecfidera] 240 MG PO SCH ×2 (12:24→21:56)
[2017-09-14] MEDS: SODIUM CHLORIDE 0.9% 1,000 ML IV SCH ×2 (12:25→23:26)
--- NOTE | 2017-09-14 12:25 | P.PN ---
Subjective Progress Note Date: 09/14/17 Huong Cooper is a 61-year-old female with a history of multiple sclerosis who presented to [facility] emergency department for a chief complaint of bilateral numbness and weakness. Patient states this is similar to her previous flareups for multiple sclerosis. Patient states that this started happening about a week ago. Patient denies chest pain, shortness of breath, or abdominal pain. Patient is currently not in pain but is uncomfortable with the numb feeling. Patient has a history of stroke 10 years ago. She has residual right-sided weakness and speech impairments. Her helped with answering questions because of the speech impairments. No new weakness is noted. 09/14/2017 patient states she is showing improvement with the steroids. She has no new complaints. The IV Solu-Medrol will be increased to every 8 hours. She is currently receiving steroids daily. Objective - Vital Signs Vital signs: Vital Signs Temp 97.4 F L 09/14/17 07:00 Pulse 51 L 09/14/17 08:00 Resp 18 09/14/17 08:00 BP 115/56 09/14/17 07:00 Pulse Ox 97 09/14/17 07:00 Intake & Output 09/13/17 09/14/17 09/14/17 18:59 06:59 18:59 Intake Total 225 2374 Balance 225 2374 Weight 96.615 kg Intake: Intake, IV Titration 225 1654 Amount Sodium Chloride 0.9% 1, 225 1654 000 ml @ 75 mls/hr IV . [id number] [facility] Rx#:[id number] Oral 720 Other: Voiding Method Toilet # Voids 1 2 - Exam Head normocephalic Neck supple Lungs clear to auscultation bilaterally no wheezing or crackles Heart regular rate and rhythm S1-S2, no rub or gallop Abdomen is soft nontender nondistended positive bowel sounds no hepatosplenomegaly Extremities no edema Neuro alert and orientated to 3. Expressive aphasia which is chronic. Patient is able to follow simple commands. Hypersensitivity to touch. Generalized bilateral weakness involving both lower extremities - Labs CBC & Chem 7: 09/14/17 07:21 09/14/17 07:21 Labs: Abnormal Lab Results - Last 24 Hours (Table) 09/13/17 09/13/17 09/13/17 Range/Units 12:47 17:01 20:27 Plt Count (150-450) k/uL Lymphocytes # (1.0-4.8) k/uL PT (9.0-12.0) sec INR (<1.2) BUN (7-17) mg/dL Glucose (74-99) mg/dL POC Glucose (mg/dL) 172 H 190 H 170 H (75-99) mg/dL Total Protein (6.3-8.2) g/dL 09/14/17 09/14/17 09/14/17 Range/Units 07:09 07:21 07:21 Plt Count 95 L (150-450) k/uL Lymphocytes # 0.7 L (1.0-4.8) k/uL PT 17.1 H (9.0-12.0) sec INR 1.9 H (<1.2) BUN (7-17) mg/dL Glucose (74-99) mg/dL POC Glucose (mg/dL) 114 H (75-99) mg/dL Total Protein (6.3-8.2) g/dL 09/14/17 09/14/17 Range/Units 07:21 11:37 Plt Count (150-450) k/uL Lymphocytes # (1.0-4.8) k/uL PT (9.0-12.0) sec INR (<1.2) BUN 20 H (7-17) mg/dL Glucose 107 H (74-99) mg/dL POC Glucose (mg/dL) 124 H (75-99) mg/dL Total Protein 6.1 L (6.3-8.2) g/dL Assessment and Plan Assessment: #1 Acute exacerbation of multiple sclerosis patient is admitted to medical floor she was started on IV Solu-Medrol 250 mg every 8 hours. neurology consultation was requested #2 previous history of DVT and PE patient maintained on Coumadin INR on presentation 1.9 will continue Will check INR daily. Continue his current Coumadin dosing #3 underlying history of hypothyroidism maintained on Synthroid will continue #4 borderline diabetes mellitus. Will cover with insulin sliding scale while on steroids. A1c is 5.9 #5 underlying history of sleep apnea maintained on CPAP #5 underlying history of hyperlipidemia maintained on Pravachol I performed an examination of the patient and discussed their management with the physician Spa Experience Coordinator. I have reviewed the Physician Spa Experience Coordinator's notes and agree with the documented findings and plan of care
[2017-09-14] MEDS ORDERED: RX INFO: IV CONTRAST WAS GIVEN 1 EACH MISC MISCELLANE PRN (15:34)
[2017-09-14] MEDS: WARFARIN 7.5 MG TAB PO SCH (16:45)
[2017-09-14 16:56] LABS: Glucose,Whole Blood 237 mg/dL (75-99)
[2017-09-14 18:02] LABS: Glucose,Whole Blood 213 mg/dL (75-99)
[2017-09-14] MEDS: methylPREDNISolone SOD SUCCI 250 MG in SODIUM CHLORIDE 0.9% 100 ML IVPB SCH ×2 (18:20→23:28)
--- NOTE | 2017-09-14 18:20 | MR ---
EXAMINATION TYPE: MR brain wo/w con DATE OF EXAM: 09/14/2017 COMPARISON: 08/31/2017 HISTORY: Exacerbation of MS TECHNIQUE: Multiplanar, multisequence images of the brain and brainstem is performed without and with IV contras t, utilizing 10 ml mL intravenous Gadavist . FINDINGS: There is a large area of increased signal on the T2 images involving the left temporal lobe extending into the left parietal lobe consistent with old cortical infarct. There is no midline shif t. There is some enlargement of the left lateral ventricle compared to the right. There is no evidenc e of intracranial hemorrhage. There is no pathologic enhancement. There is a 4 mm focus of increased signal at the beckman-white matter junction right parietal lobe. The brainstem is intact. There is some thinning of the corpus callosum. Sella turcica appears normal. The re is a 1 cm area of mucosal thickening in the posterior right maxillary sinus.. IMPRESSION: Large old left middle cerebral artery distribution infarct. Single focus of increased sig nal in the right parietal lobe white matter of uncertain significance. I do not see convincing eviden ce for demyelinating disease. No adverse change compared to old exam. Minimal right maxillary sinusit is.
[2017-09-14] MEDS: ACETAMINOPHEN TAB 325 MG TAB PO PRN (18:28)
[2017-09-14 20:42] LABS: Glucose,Whole Blood 164 mg/dL (75-99)
[2017-09-14] MEDS: PRAVASTATIN SODIUM 20 MG TAB PO SCH (21:55)
[2017-09-14] MEDS: CITALOPRAM HYDROBROMIDE 20 MG TAB PO SCH (21:55)
--- NOTE | 2017-09-14 22:45 | P.CNNES ---
History of Present Illness Consult date: 09/14/17 Requesting physician: Sarah Paredes Reason for Consult: multiple sclerosis exacerbation Chief complaint: MS exacerbation History of Present Illness: Neurology is consulting on a 61-year-old female with a history of multiple sclerosis. Patient is known to our practice and is being treated by another provider within our group. Patient does have bilateral numbness and weakness. Patient is very aware of her multiple sclerosis disease process. She confirms that this is consistent with her previous flare occurrences. However, she states that this flare is slightly more intense. Current occurrence began approximately 1 week ago and has escalated in intensity and duration. Patient denies chest pain, shortness of breath or abdominal pain. Patient also has a history of CVA 10 years ago. Patient has right-sided residual weakness and speech impairments. On contact, the patient was supine in bed resting in no acute distress. Patient was alert and oriented 3. was at the bedside. Patient just started IV Solu-Medrol at 250 mg every 8 hours. Review of Systems systems not noted in HPI or negative Past Medical History Past Medical History: Chest Pain / Angina, CVA/TIA, Fibromyalgia, Musculoskeletal Disorder, Neurologic Disorder, Osteoarthritis (OA), Pulmonary Embolus (PE), Sleep Apnea/CPAP/BIPAP, Thyroid Disorder Additional Past Medical History / Comment(s): MULTIPLE SCLEROSIS, HX OF CVA 2006 WITH R SIDED WEAKNESS AND DYSPHASIA-MUCH IMPROVED, MIGRAINES, SLEEP APNEA( HAS C-PAP MACHINE BUT DOES NOT USE) ABD HERNIA,CHRONIC PAIN ESPECIALLY ON R SIDE OF BODY AND LOW BACK . PAINFUL FOR HER TO LIE FLAT. HX OF NOSEBLEED JUL 2014 AND RECEIVED PLASMA TRANSFUSION. takes pills with applesauce. History of Any Multi-Drug Resistant Organisms: VRE Date of last positivie culture/infection: 10/24/09 confirmed with infectious disease nurse on 08/18/16. MDRO Source:: URINE Past Surgical History: Appendectomy, Cholecystectomy, Hysterectomy Additional Past Surgical History / Comment(s): Incisional hernia repair, laparoscopic lysis of adhesions in 1987, ganglion cyst removal of the left wrist , patent foramen ovale patch in 2006, RF ablation for back pain. Past Anesthesia/Blood Transfusion Reactions: No Reported Reaction Smoking Status: Never smoker - Past Family History Mother Family Medical History: Hypertension Additional Family Medical History / Comment(s): osteoporosis Father Family Medical History: Dementia Medications and Allergies Home Medications Medication Instructions Recorded Confirmed Type Aspirin 81 mg PO DAILY 11/08/13 09/12/17 History Baclofen [Lioresal] 10 mg PO DAILY 11/08/13 09/12/17 History Citalopram Hydrobromide [CeleXA] 40 mg PO HS 11/08/13 09/12/17 History Ferrous Sulfate [Feosol] 325 mg PO DAILY 11/08/13 09/12/17 History Fexofenadine HCl [Mimi Allergy] 180 mg PO DAILY 11/08/13 09/12/17 History Furosemide [Lasix] 40 mg PO BID 11/08/13 09/12/17 History Montelukast [Singulair] 10 mg PO DAILY 11/08/13 09/12/17 History Nitroglycerin Sl Tabs [Nitrostat] 0.4 mg SUBLINGUAL Q5M PRN 11/08/13 09/12/17 History Pantoprazole Sodium [Protonix] 40 mg PO DAILY 11/08/13 09/12/17 History Potassium Chloride [Potassium 20 meq PO BID 11/08/13 09/12/17 History Chloride ER] Cholecalciferol [Vitamin D3] 2,000 unit PO DAILY 11/18/15 09/12/17 History Dimethyl Fumarate [Tecfidera] 240 mg PO BID 11/18/15 09/12/17 History Fluticasone Nasal [place] [Flonase 1 spray EA NOSTRIL DAILY 11/18/15 09/12/17 History Nasal Widen] Methylphenidate HCl [Ritalin] 20 mg PO BID 11/18/15 09/12/17 History Pravastatin Sodium [Pravachol] 20 mg PO HS 11/18/15 09/12/17 History Warfarin Sodium 5 mg PO MO@1700 11/18/15 09/12/17 History Warfarin [Coumadin] 7.5 mg PO SUTUWETHFRSA@1700 11/18/15 09/12/17 History fentaNYL [Fentanyl] 25 mcg TRANSDERM Q72H 11/18/15 09/12/17 History HYDROcodone/APAP 5-325MG [[place] 1 tab PO Q6HR PRN 07/13/16 09/12/17 History 5-325] Pregabalin [Lyrica] 100 mg PO TID 07/13/16 09/12/17 History Folic Acid 0.4 mg PO DAILY 08/18/16 09/12/17 History Biotin 10,000 mcg PO DAILY 07/06/17 09/12/17 History Bisacodyl 10 mg PO DAILY 09/12/17 09/12/17 History Cyanocobalamin/Folic AC/Vit B6 1 tab PO DAILY 09/12/17 09/12/17 History [Fabb Tablet] Isosorbide Mononitrate ER [Imdur] 30 mg PO DAILY 09/12/17 09/12/17 History Levothyroxine Sodium [Synthroid] 50 mcg PO DAILY 09/12/17 09/12/17 History Nystatin 100,000 Unit/gm Powd 1 applic TOPICAL BID 09/12/17 09/12/17 History [Mycostatin Powder] Allergies Allergy/AdvReac Type Severity Reaction Status Date / Time adhesive Allergy SKIN Verified 09/12/17 16:34 PEELING Physical Examination - Vital Signs Vital Signs: Vital Signs Temp Pulse Resp BP Pulse Ox 09/14/17 16:00 64 18 09/14/17 14:53 97.4 F L 64 18 107/52 100 09/14/17 08:00 51 L 18 09/14/17 07:00 97.4 F L 51 L 18 115/56 97 09/14/17 02:01 97.6 F 50 L 16 105/55 94 L 09/13/17 23:00 97.6 F 50 L 18 105/55 94 L Intake and Output 09/14/17 09/14/17 09/14/17 06:59 14:59 22:59 Intake Total 1594 1750 480 Balance 1594 1750 480 Intake: Intake, IV Titration 1354 550 Amount Sodium Chloride 0.9% 1, 1354 450 000 ml @ 75 mls/hr IV . [id number] [facility] Rx#:[id number] methylPREDNISolone SOD 100 SUCCI 250 mg In Sodium Chloride 0.9% 100 ml @ 100 mls/hr IVPB Q8HR [facility] Rx#:[id number] Oral 240 1200 480 Other: Voiding Method Toilet Toilet # Voids 2 3 3 - Constitutional General appearance: Alert & oriented x2, no apparent distress. Head: Atraumatic, normocephalic, normal inspection Eyes:PERRLA, EOMI. Absent scleral icterus, conjunctival injection, nystagmus, periorbital swelling. Ear, nose and throat: Normal exam, mucous membranes moist Neck: Normal inspection, absent tenderness, lymphadenopathy. Respiratory: No increased work of breathing Cardiovascular: Regular rate, rhythm GI/abdominal: no tenderness, no guarding, no rebound, no rigidity. Extremities: generalized weakness Neurological: cranial nerves II through XII intact no lateralizing weakness no seizure activity noted on physical exam no pronator drift and no nystagmus. Left lower extremity: 3+/5 Right lower extremity: 3+/5 Left upper extremity: 4-/5 Right upper extremity: 4-/5 Sensation: hypersensitivity and right side of body to touch Psychological: Mood and affect appropriate for setting. Results - Laboratory Findings CBC and BMP: 09/14/17 07:21 09/14/17 07:21 Abnormal Lab Findings: Abnormal Labs 09/12/17 09/12/17 09/12/17 16:23 16:23 16:23 WBC 3.5 L Plt Count 98 L Lymphocytes # 0.6 L PT 17.0 H INR 1.9 H Carbon Dioxide 34 H BUN 19 H Glucose POC Glucose (mg/dL) Total Protein 09/13/17 09/13/17 09/13/17 08:34 12:47 17:01 WBC Plt Count Lymphocytes # PT INR Carbon Dioxide BUN Glucose POC Glucose (mg/dL) 170 H 172 H 190 H Total Protein 09/13/17 09/14/17 09/14/17 20:27 07:09 07:21 WBC Plt Count 95 L Lymphocytes # 0.7 L PT INR Carbon Dioxide BUN Glucose POC Glucose (mg/dL) 170 H 114 H Total Protein 09/14/17 09/14/17 09/14/17 07:21 07:21 11:37 WBC Plt Count Lymphocytes # PT 17.1 H INR 1.9 H Carbon Dioxide BUN 20 H Glucose 107 H POC Glucose (mg/dL) 124 H Total Protein 6.1 L 09/14/17 09/14/17 09/14/17 16:51 17:57 20:22 WBC Plt Count Lymphocytes # PT INR Carbon Dioxide BUN Glucose POC Glucose (mg/dL) 237 H 213 H 164 H Total Protein Assessment and Plan (1) CVA (cerebral vascular accident) Current Visit: Yes Status: Acute Code(s): I63.9 - CEREBRAL INFARCTION, UNSPECIFIED SNOMED Code(s): 863858994 (2) History of CVA (cerebrovascular accident) Current Visit: Yes Status: Acute Code(s): Z86.73 - PRSNL HX OF TIA (TIA), AND CEREB INFRC W/O RESID DEFICITS SNOMED Code(s): 837593951 (3) Multiple sclerosis exacerbation Current Visit: Yes Status: Acute Code(s): G35 - MULTIPLE SCLEROSIS SNOMED Code(s): 544030711 (4) Expressive aphasia Current Visit: No Status: Acute Code(s): R47.01 - APHASIA SNOMED Code(s): 174282394 (5) Generalized weakness Current Visit: No Status: Acute Code(s): R53.1 - WEAKNESS SNOMED Code(s): 99470481 Plan: 1. Multiple sclerosis exacerbation 2. Expressive aphasia 3. Generalized weakness 4. History of prior CVA Patient does have a known history of multiple sclerosis and is being treated for that disorder by another provider in our group. Patient is somewhat known to this provider. Patient is very adept at her disease process and she is adamant that this is very consistent with her known MS flares. On physical exam the patient does have family weakness as noted and physical exam findings. Patient does continue to still have expressive aphasia. She was started on IV Solu-Medrol to 50 mg every 8 hours. Currently best practices recommend 250 mg every 6 hours for 24 hours and reassess. I have adjusted the dosing to every 6 hours. Ordered sliding insulin scale as well as bedside blood glucose checks. Ordered MRI of the brain with and without contrast for comparative purposes and for any new or changed underlying etiology. On CT of the brain from the ED, it was noted that there was a large old left middle cerebral artery distribution infarct. Single focus of increased signal in the right parietal lobe with white matter of uncertain significance. No convincing evidence of demyelinating disease. No adverse change compared to old exam. continue DVT prophylaxis. continue neuro checks as ordered. Status: Neurology will reassess the patient in 24 hours to reassess for ongoing IV Solu-Medrol needs higher to discharge. For now, neurology will continue to follow and provide update as needed or warranted. I have discussed the plan of care with the physician prior to implementation and he agrees with the plan as implemented.
[2017-09-15] MEDS: methylPREDNISolone SOD SUCCI 250 MG in SODIUM CHLORIDE 0.9% 100 ML IVPB SCH ×3 (06:29→18:04)
[2017-09-15 07:21] LABS: Glucose,Whole Blood 157 mg/dL (75-99)
[2017-09-15] MEDS: METHYLPHENIDATE HCL 10 MG TAB PO SCH ×2 (08:04→22:23)
[2017-09-15] MEDS: PREGABALIN 100 MG CAP PO SCH ×3 (08:04→22:30)
[2017-09-15] MEDS: FERROUS SULFATE 325 MG TAB PO SCH (08:04)
[2017-09-15] MEDS: ASPIRIN 81 MG PO SCH (08:04)
[2017-09-15] MEDS: PANTOPRAZOLE 40 MG TABLET PO SCH (08:04)
[2017-09-15] MEDS: INSULIN ASPART 100 UNIT/ML 1 ML 10 ML VIAL SQ SCH ×4 (08:04→21:10)
[2017-09-15] MEDS: POTASSIUM CHLORIDE ER 20 MEQ TAB.ER PO SCH ×2 (08:05→22:19)
[2017-09-15] MEDS: Dimethyl Fumarate [Tecfidera] 240 MG PO SCH ×2 (08:05→22:18)
[2017-09-15] MEDS: BACLOFEN 10 MG TAB PO SCH (08:05)
[2017-09-15] MEDS: CHOLECALCIFEROL 1,000 UNIT TAB PO SCH (08:05)
[2017-09-15] MEDS: FOLIC ACID 1 MG TAB PO SCH (08:05)
[2017-09-15] MEDS: LORATADINE 10 MG TAB PO SCH (08:05)
[2017-09-15] MEDS: FUROSEMIDE 40 MG TAB PO SCH ×2 (08:05→22:18)
[2017-09-15] MEDS: LEVOTHYROXINE 50 MCG TAB PO SCH (08:05)
[2017-09-15] MEDS: BISACODYL 5 MG TABLET.DR PO SCH (08:05)
[2017-09-15] MEDS: MONTELUKAST 10 MG TAB PO SCH (08:05)
[2017-09-15] MEDS: NYSTATIN 100,000 UNIT/GM POWD 15 GM TOPICAL SCH ×2 (08:07→22:25)
[2017-09-15 08:15] LABS: Basophils % (A) 0 %; Eosinophils % (A) 0 %; HCT 38.5 % (34.0-46.0); HGB 12.9 gm/dL (11.4-16.0); Lymphocytes # (A) 0.7 k/uL (1.0-4.8); Lymphocytes % (A) 12 %; MCH 29.4 pg (25.0-35.0); MCHC 33.4 g/dL (31.0-37.0); Mean Platelet Volume 11.7; Monocytes # (A) 0.1 k/uL (0-1.0); Monocytes % (A) 2 %; Neutrophils % (A) 85 %; RBC 4.38 m/uL (3.80-5.40); RDW 13.6 % (11.5-15.5); WBC 5.8 k/uL (3.8-10.6)
[2017-09-15 08:25] LABS: Calcium 8.9 mg/dL (8.4-10.2); Potassium 4.2 mmol/L (3.5-5.1)
[2017-09-15 08:33] LABS: INR 2.3 (<1.2); Platelet Count 86 k/uL (150-450); Prothrombin Time 20.4 sec (9.0-12.0)
--- NOTE | 2017-09-15 10:47 | P.PN ---
Subjective Progress Note Date: 09/15/17 Huong Cooper is a 61-year-old female with a history of multiple sclerosis who presented to [facility] emergency department for a chief complaint of bilateral numbness and weakness. Patient states this is similar to her previous flareups for multiple sclerosis. Patient states that this started happening about a week ago. Patient denies chest pain, shortness of breath, or abdominal pain. Patient is currently not in pain but is uncomfortable with the numb feeling. Patient has a history of stroke 10 years ago. She has residual right-sided weakness and speech impairments. Her helped with answering questions because of the speech impairments. No new weakness is noted. 09/14/2017 patient states she is showing improvement with the steroids. She has no new complaints. The IV Solu-Medrol will be increased to every 8 hours. She is currently receiving steroids daily. 09/15/2017 patient showing some improvement with the IV steroids. Still complaining of some weakness and pain. No other new complaints. MRI of the brain shows a single focus increased signal in the right parietal lobe white matter of uncertain significance. Large old left middle cerebral artery distribution infarct. No adverse change compared to old exam. Neurology has reviewed MRI results Objective - Vital Signs Vital signs: Vital Signs Temp 97.7 F 09/15/17 07:00 Pulse 45 L 09/15/17 07:00 Resp 16 09/15/17 07:00 BP 117/59 09/15/17 07:00 Pulse Ox 97 09/15/17 07:00 Intake & Output 09/14/17 09/15/17 09/15/17 18:59 06:59 18:59 Intake Total 1750 1525 Balance 1750 1525 Intake: Intake, IV Titration 550 325 Amount Sodium Chloride 0.9% 1, 450 225 000 ml @ 75 mls/hr IV . [id number] [facility] Rx#:[id number] methylPREDNISolone SOD 100 SUCCI 250 mg In Sodium Chloride 0.9% 100 ml @ 100 mls/hr IVPB Q6HR [facility] Rx#:[id number] methylPREDNISolone SOD 100 SUCCI 250 mg In Sodium Chloride 0.9% 100 ml @ 100 mls/hr IVPB Q8HR [facility] Rx#:[id number] Oral 1200 1200 Other: Voiding Method Toilet Toilet # Voids 3 3 1 # Bowel Movements 1 - Exam Head normocephalic Neck supple Lungs clear to auscultation bilaterally no wheezing or crackles Heart regular rate and rhythm S1-S2, no rub or gallop Abdomen is soft nontender nondistended positive bowel sounds no hepatosplenomegaly Extremities no edema Neuro alert and orientated to 3. Expressive aphasia which is chronic. Patient is able to follow simple commands. Hypersensitivity to touch. Generalized bilateral weakness involving both lower extremities. Strength show improvement - Labs CBC & Chem 7: 09/15/17 07:05 09/15/17 07:05 Labs: Abnormal Lab Results - Last 24 Hours (Table) 09/14/17 09/14/17 09/14/17 Range/Units 11:37 16:51 17:57 Plt Count (150-450) k/uL Lymphocytes # (1.0-4.8) k/uL PT (9.0-12.0) sec INR (<1.2) BUN (7-17) mg/dL Glucose (74-99) mg/dL POC Glucose (mg/dL) 124 H 237 H 213 H (75-99) mg/dL 09/14/17 09/15/17 09/15/17 Range/Units 20:22 07:05 07:05 Plt Count 86 L (150-450) k/uL Lymphocytes # 0.7 L (1.0-4.8) k/uL PT 20.4 H (9.0-12.0) sec INR 2.3 H (<1.2) BUN (7-17) mg/dL Glucose (74-99) mg/dL POC Glucose (mg/dL) 164 H (75-99) mg/dL 09/15/17 09/15/17 Range/Units 07:05 07:19 Plt Count (150-450) k/uL Lymphocytes # (1.0-4.8) k/uL PT (9.0-12.0) sec INR (<1.2) BUN 21 H (7-17) mg/dL Glucose 153 H (74-99) mg/dL POC Glucose (mg/dL) 157 H (75-99) mg/dL Assessment and Plan Assessment: #1 Acute exacerbation of multiple sclerosis: IV Solu-Medrol adjusted per neurology to 250 mg IV every 6 hours. Neurology following. Continue physical therapy #2 previous history of DVT and PE patient maintained on Coumadin. INR therapeutic at 2.3. Continue to monitor daily PT/INR #3 underlying history of hypothyroidism maintained on Synthroid will continue #4 borderline diabetes mellitus. Will cover with insulin sliding scale while on steroids. A1c is 5.9 #5 underlying history of sleep apnea maintained on CPAP #5 underlying history of hyperlipidemia maintained on Pravachol I performed an examination of the patient and discussed their management with the physician [employer]. I have reviewed the Physician [employer] Operator's notes and agree with the documented findings and plan of care
[2017-09-15 11:46] LABS: Glucose,Whole Blood 120 mg/dL (75-99)
[2017-09-15] MEDS: SODIUM CHLORIDE 0.9% 1,000 ML IV SCH (14:14)
[2017-09-15] MEDS: WARFARIN 7.5 MG TAB PO SCH (16:22)
[2017-09-15 17:09] LABS: Glucose,Whole Blood 219 mg/dL (75-99)
[2017-09-15 20:07] LABS: Glucose,Whole Blood 320 mg/dL (75-99)
[2017-09-15] MEDS ORDERED: INSULIN ASPART 100 UNIT/ML 1 ML 10 ML VIAL SQ STA (21:12)
[2017-09-15] MEDS: CITALOPRAM HYDROBROMIDE 20 MG TAB PO SCH (22:17)
[2017-09-15] MEDS: PRAVASTATIN SODIUM 20 MG TAB PO SCH (22:18)
[2017-09-15] MEDS: INSULIN DETEMIR 100 UNIT/ML 10 ML VIAL SQ SCH (22:21)
[2017-09-16] MEDS: methylPREDNISolone SOD SUCCI 250 MG in SODIUM CHLORIDE 0.9% 100 ML IVPB SCH ×5 (00:03→23:44)
[2017-09-16] MEDS: SODIUM CHLORIDE 0.9% 1,000 ML IV SCH (06:14)
[2017-09-16 07:26] LABS: Glucose,Whole Blood 156 mg/dL (75-99)
[2017-09-16 07:37] LABS: Basophils % (A) 0 %; Eosinophils % (A) 0 %; HCT 38.5 % (34.0-46.0); HGB 13.5 gm/dL (11.4-16.0); Lymphocytes # (A) 0.7 k/uL (1.0-4.8); Lymphocytes % (A) 13 %; MCH 30.7 pg (25.0-35.0); MCHC 35.1 g/dL (31.0-37.0); MCV 87.4 fL (80.0-100.0); Mean Platelet Volume 10.9; Monocytes # (A) 0.1 k/uL (0-1.0); Monocytes % (A) 3 %; Neutrophils # (A) 4.2 k/uL (1.3-7.7); Neutrophils % (A) 83 %; Platelet Count 80 k/uL (150-450); RBC 4.41 m/uL (3.80-5.40); RDW 13.6 % (11.5-15.5); WBC 5.1 k/uL (3.8-10.6)
[2017-09-16 07:44] LABS: Prothrombin Time 27.1 sec (9.0-12.0)
[2017-09-16] MEDS: BISACODYL 5 MG TABLET.DR PO SCH (07:57)
[2017-09-16] MEDS: METHYLPHENIDATE HCL 10 MG TAB PO SCH ×2 (07:58→21:58)
[2017-09-16] MEDS: POTASSIUM CHLORIDE ER 20 MEQ TAB.ER PO SCH ×2 (07:58→21:58)
[2017-09-16] MEDS: PANTOPRAZOLE 40 MG TABLET PO SCH (07:58)
[2017-09-16] MEDS: PREGABALIN 100 MG CAP PO SCH ×3 (07:58→21:59)
[2017-09-16] MEDS: MONTELUKAST 10 MG TAB PO SCH (07:58)
[2017-09-16] MEDS: FERROUS SULFATE 325 MG TAB PO SCH (07:59)
[2017-09-16] MEDS: LORATADINE 10 MG TAB PO SCH (07:59)
[2017-09-16] MEDS: ASPIRIN 81 MG PO SCH (07:59)
[2017-09-16] MEDS: LEVOTHYROXINE 50 MCG TAB PO SCH (07:59)
[2017-09-16] MEDS: CHOLECALCIFEROL 1,000 UNIT TAB PO SCH (07:59)
[2017-09-16] MEDS: FUROSEMIDE 40 MG TAB PO SCH ×2 (07:59→21:58)
[2017-09-16] MEDS: INSULIN ASPART 100 UNIT/ML 1 ML 10 ML VIAL SQ SCH ×4 (07:59→21:59)
[2017-09-16] MEDS: BACLOFEN 10 MG TAB PO SCH (07:59)
[2017-09-16] MEDS: FOLIC ACID 1 MG TAB PO SCH (07:59)
[2017-09-16] MEDS: NYSTATIN 100,000 UNIT/GM POWD 15 GM TOPICAL SCH ×2 (07:59→22:03)
[2017-09-16] MEDS: Dimethyl Fumarate [Tecfidera] 240 MG PO SCH ×2 (07:59→21:59)
[2017-09-16 08:01] LABS: Calcium 8.9 mg/dL (8.4-10.2); Potassium 3.9 mmol/L (3.5-5.1)
[2017-09-16 10:03] LABS: Large Platelets Present
[2017-09-16 11:28] LABS: Glucose,Whole Blood 210 mg/dL (75-99)
--- NOTE | 2017-09-16 14:32 | P.PN ---
Subjective Patient is doing well today. She was having problems with hyperglycemia last night that is probably attributed to IV steroid use. Objective - Vital Signs Vital signs: Vital Signs Temp 97.2 F L 09/16/17 07:00 Pulse 47 L 09/16/17 07:00 Resp 18 09/16/17 07:00 BP 130/69 09/16/17 07:00 Pulse Ox 94 L 09/16/17 07:00 Intake & Output 09/15/17 09/16/17 09/16/17 18:59 06:59 18:59 Intake Total 1205 Balance 1205 Intake: IV 375 Sodium Chloride 0.9% 1, 375 000 ml @ 75 mls/hr IV . [id number] [facility] Rx#:[id number] Oral 830 Other: Voiding Method Toilet Toilet Toilet # Voids 1 1 1 - Exam General: The patient is awake and alert, in no distress Eye: there is normal conjunctiva bilaterally. Neck: The neck is supple, there is no JVD. Cardiovascular: Normal S1-S2, no S3-S4, no murmurs. Respiratory: Lungs clear to auscultation bilaterally Gastrointestinal: Abdomen is soft, nontender Musculoskeletal: There is no pedal edema. Neurological:. Speech is normal. Skin: Skin is warm and dry - Labs CBC & Chem 7: 09/16/17 06:36 09/16/17 06:36 Labs: Abnormal Lab Results - Last 24 Hours (Table) 09/15/17 09/15/17 09/16/17 Range/Units 17:07 20:05 06:36 Plt Count 80 L (150-450) k/uL Lymphocytes # 0.7 L (1.0-4.8) k/uL PT (9.0-12.0) sec INR (<1.2) BUN (7-17) mg/dL Glucose (74-99) mg/dL POC Glucose (mg/dL) 219 H 320 H (75-99) mg/dL 09/16/17 09/16/17 09/16/17 Range/Units 06:36 06:36 07:23 Plt Count (150-450) k/uL Lymphocytes # (1.0-4.8) k/uL PT 27.1 H (9.0-12.0) sec INR 3.0 H (<1.2) BUN 26 H (7-17) mg/dL Glucose 136 H (74-99) mg/dL POC Glucose (mg/dL) 156 H (75-99) mg/dL 09/16/17 Range/Units 11:26 Plt Count (150-450) k/uL Lymphocytes # (1.0-4.8) k/uL PT (9.0-12.0) sec INR (<1.2) BUN (7-17) mg/dL Glucose (74-99) mg/dL POC Glucose (mg/dL) 210 H (75-99) mg/dL Assessment and Plan Assessment: #1 Acute exacerbation of multiple sclerosis: IV Solu-Medrol per neurology to 250 mg IV every 6 hours. Neurology following. Continue physical therapy #2 previous history of DVT and PE patient maintained on Coumadin. #3 underlying history of hypothyroidism maintained on Synthroid will continue #4 borderline diabetes mellitus. A1c is 5.9 #5 underlying history of sleep apnea maintained on CPAP #5 underlying history of hyperlipidemia maintained on Pravachol - Chest Coumadin dose to 5 mg daily starting Monday night - Continue Levemir 10 units at bedtime plus sliding scale while on IV steroids to prevent steroid-induced hyperglycemia - MRI of the brain revealed with no acute findings and no convincing evidence of demyelinating disease awaiting further input from neurology
[2017-09-16 17:01] LABS: Glucose,Whole Blood 212 mg/dL (75-99)
[2017-09-16 20:26] LABS: Glucose,Whole Blood 192 mg/dL (75-99)
[2017-09-16] MEDS: CITALOPRAM HYDROBROMIDE 20 MG TAB PO SCH (21:58)
[2017-09-16] MEDS: PRAVASTATIN SODIUM 20 MG TAB PO SCH (21:59)
[2017-09-16] MEDS: INSULIN DETEMIR 100 UNIT/ML 10 ML VIAL SQ SCH (22:00)
--- NOTE | 2017-09-16 23:48 | P.PN ---
Subjective Progress Note Date: 09/16/17 Principal diagnosis: multiple sclerosis exacerbation Interval Update: (09/16/17) Neurology is following on a 61-year-old female with a history of multiple sclerosis and prior CVA. Patient is known to have deficits from prior CVA. Patient is known to our practice and is a patient within her group. Patient does have bilateral numbness and weakness which has improved since yesterday again day over day. Improvement has occurred since starting IV Solu-Medrol 1.5 days ago. Although not resolved, the intensity is decreasing. Patient was ambulating with a cane for short distances earlier today per nursing staff. Patient is currently 48 hours and 2000 mg Solu-Medrol since starting medication therapy. Review of patient's records from within our practice note patient usually acquires 4-5 days of IV Solu-Medrol at 1000 mg daily for her flares. On contact, patient is supine in bed, a resting in no acute distress. Patient is alert and oriented 4 and is a very active participant in her care and knowledge of her disease process. Patient states she is approximately 50% improved towards baseline. Objective - Vital Signs Vital signs: Vital Signs Temp 96.4 F L 09/16/17 21:56 Pulse 53 L 09/16/17 21:56 Resp 20 09/16/17 21:56 BP 132/58 09/16/17 21:56 Pulse Ox 92 L 09/16/17 21:56 Intake & Output 09/16/17 09/16/17 09/17/17 06:59 18:59 06:59 Intake Total 1205 Balance 1205 Intake: IV 375 Sodium Chloride 0.9% 1, 375 000 ml @ 75 mls/hr IV . [id number] [facility] Rx#:[id number] Oral 830 Other: Voiding Method Toilet Toilet # Voids 1 2 - Exam General appearance: Alert & oriented x4, no apparent distress. Head: Atraumatic, normocephalic, normal inspection Eyes: Well appearance, PERRLA, EOMI. Absent scleral icterus, conjunctival injection, nystagmus, periorbital swelling. Ear, nose and throat: Normal exam, mucous membranes moist Neck: Normal inspection, absent tenderness, lymphadenopathy. Respiratory: No increased work of breathing Cardiovascular: Regular rate, rhythm GI/abdominal: Normal bowel sounds, nondistended, no tenderness, no guarding, no rebound, no rigidity. Extremities: All range of motion, normal capillary refill, no tenderness, pedal edema joint swelling, calf tenderness. Neurological: cranial nerves II through XII intact no lateralizing weakness no seizure activity noted on physical exam no pronator drift and no nystagmus. Left lower extremity: 4-/5 Right lower extremity: 4-/5 Left upper extremity: 4-/5 Right upper extremity: 4-/5 (scoring is with regard to patients normal baseline) Sensation: hypersensitive but less than previous physical exam in all 4 extremities Psychological: Mood and affect appropriate for setting. - Labs CBC & Chem 7: 09/16/17 06:36 09/16/17 06:36 Labs: Abnormal Lab Results - Last 24 Hours (Table) 09/16/17 09/16/17 09/16/17 Range/Units 06:36 06:36 06:36 Plt Count 80 L (150-450) k/uL Lymphocytes # 0.7 L (1.0-4.8) k/uL PT 27.1 H (9.0-12.0) sec INR 3.0 H (<1.2) BUN 26 H (7-17) mg/dL Glucose 136 H (74-99) mg/dL POC Glucose (mg/dL) (75-99) mg/dL 09/16/17 09/16/17 09/16/17 Range/Units 07:23 11:26 16:59 Plt Count (150-450) k/uL Lymphocytes # (1.0-4.8) k/uL PT (9.0-12.0) sec INR (<1.2) BUN (7-17) mg/dL Glucose (74-99) mg/dL POC Glucose (mg/dL) 156 H 210 H 212 H (75-99) mg/dL 09/16/17 Range/Units 20:25 Plt Count (150-450) k/uL Lymphocytes # (1.0-4.8) k/uL PT (9.0-12.0) sec INR (<1.2) BUN (7-17) mg/dL Glucose (74-99) mg/dL POC Glucose (mg/dL) 192 H (75-99) mg/dL Assessment and Plan (1) CVA (cerebral vascular accident) Current Visit: Yes Status: Acute Code(s): I63.9 - CEREBRAL INFARCTION, UNSPECIFIED SNOMED Code(s): 875557938 (2) History of CVA (cerebrovascular accident) Current Visit: Yes Status: Acute Code(s): Z86.73 - PRSNL HX OF TIA (TIA), AND CEREB INFRC W/O RESID DEFICITS SNOMED Code(s): 220705285 (3) Multiple sclerosis exacerbation Current Visit: Yes Status: Acute Code(s): G35 - MULTIPLE SCLEROSIS SNOMED Code(s): 857869196 (4) Expressive aphasia Current Visit: No Status: Acute Code(s): R47.01 - APHASIA SNOMED Code(s): 511364158 (5) Generalized weakness Current Visit: No Status: Acute Code(s): R53.1 - WEAKNESS SNOMED Code(s): 94881131 Plan: 1. Multiple sclerosis exacerbation 2. Expressive aphasia 3. Generalized weakness 4. History of prior CVA Patient does have a known history of multiple sclerosis and is being treated for that disorder by another provider in our group. Patient is somewhat known to this provider. Patient is very adept at her disease process and she is adamant that this is very consistent with her known MS flares. On physical exam the patient does have generalized extremity weakness as noted and on physical exam findings. Patiet has returned to baseline with regard to speech changes. Patient has a history of speech preocupation with the word "house" per spouse which is residual defict from prior CVA in 2006. IV Solu-Medrol 250 mg every 6 hours will be continued. Ordered sliding insulin scale as well as bedside blood glucose checks to continue. Continue DVT prophylaxis MRI with and without contrast of the cervical spine as well for verification of any new or changed underlying MS changes to the cervical cord. Vitamin D level ordered MRI of the brain with and without contrast noted no enhancement and was essentially a stable exam. On CT of the brain from the ED, it was noted that there was a large old left middle cerebral artery distribution infarct. Single focus of increased signal in the right parietal lobe with white matter of uncertain significance. No convincing evidence of demyelinating disease. No adverse change compared to old exam. continue DVT prophylaxis. continue neuro checks as ordered. Status: Neurology will reassess the patient in 24 hours to reassess for ongoing IV Solu-Medrol needs. For now, neurology will continue to follow and provide update as needed or warranted. I have discussed the plan of care with the physician prior to implementation and he agrees with the plan as implemented.
[2017-09-17] MEDS: methylPREDNISolone SOD SUCCI 250 MG in SODIUM CHLORIDE 0.9% 100 ML IVPB SCH ×4 (05:29→23:36)
[2017-09-17 08:13] LABS: Glucose,Whole Blood 155 mg/dL (75-99)
[2017-09-17] MEDS: Dimethyl Fumarate [Tecfidera] 240 MG PO SCH ×2 (08:18→20:53)
[2017-09-17 08:19] LABS: Basophils % (A) 0 %; Eosinophils % (A) 0 %; HGB 13.9 gm/dL (11.4-16.0); Lymphocytes # (A) 0.6 k/uL (1.0-4.8); Lymphocytes % (A) 13 %; MCHC 34.7 g/dL (31.0-37.0); MCV 86.4 fL (80.0-100.0); Mean Platelet Volume 11.4; Monocytes # (A) 0.1 k/uL (0-1.0); Monocytes % (A) 2 %; Neutrophils # (A) 3.6 k/uL (1.3-7.7); Neutrophils % (A) 84 %; RBC 4.63 m/uL (3.80-5.40); RDW 13.4 % (11.5-15.5); WBC 4.3 k/uL (3.8-10.6)
[2017-09-17] MEDS: PANTOPRAZOLE 40 MG TABLET PO SCH (08:19)
[2017-09-17] MEDS: LORATADINE 10 MG TAB PO SCH (08:19)
[2017-09-17] MEDS: ASPIRIN 81 MG PO SCH (08:19)
[2017-09-17] MEDS: BISACODYL 5 MG TABLET.DR PO SCH (08:19)
[2017-09-17] MEDS: POTASSIUM CHLORIDE ER 20 MEQ TAB.ER PO SCH ×2 (08:19→20:53)
[2017-09-17] MEDS: MONTELUKAST 10 MG TAB PO SCH (08:19)
[2017-09-17] MEDS: LEVOTHYROXINE 50 MCG TAB PO SCH (08:19)
[2017-09-17] MEDS: METHYLPHENIDATE HCL 10 MG TAB PO SCH ×2 (08:19→20:58)
[2017-09-17] MEDS: PREGABALIN 100 MG CAP PO SCH ×3 (08:19→20:58)
[2017-09-17 08:20] LABS: INR 2.9 (<1.2); Platelet Count 82 k/uL (150-450); Prothrombin Time 26.1 sec (9.0-12.0)
[2017-09-17] MEDS: BACLOFEN 10 MG TAB PO SCH (08:20)
[2017-09-17] MEDS: CHOLECALCIFEROL 1,000 UNIT TAB PO SCH (08:20)
[2017-09-17] MEDS: INSULIN ASPART 100 UNIT/ML 1 ML 10 ML VIAL SQ SCH ×4 (08:20→20:52)
[2017-09-17] MEDS: FOLIC ACID 1 MG TAB PO SCH (08:20)
[2017-09-17] MEDS: FUROSEMIDE 40 MG TAB PO SCH ×2 (08:20→20:52)
[2017-09-17] MEDS: FERROUS SULFATE 325 MG TAB PO SCH (08:20)
[2017-09-17 08:24] LABS: Calcium 8.7 mg/dL (8.4-10.2); Potassium 3.7 mmol/L (3.5-5.1)
[2017-09-17 08:44] LABS: Large Platelets Present; Poikilocytosis (M) Present
[2017-09-17] MEDS: NYSTATIN 100,000 UNIT/GM POWD 15 GM TOPICAL SCH ×2 (09:27→21:00)
[2017-09-17 12:04] LABS: Glucose,Whole Blood 185 mg/dL (75-99)
--- NOTE | 2017-09-17 15:05 | P.PN ---
Subjective Patient is doing well today. She is resting in bed. No events overnight. Objective - Vital Signs Vital signs: Vital Signs Temp 97.3 F L 09/17/17 07:00 Pulse 50 L 09/17/17 07:00 Resp 18 09/17/17 07:00 BP 123/68 09/17/17 07:00 Pulse Ox 94 L 09/17/17 07:00 Intake & Output 09/16/17 09/17/17 09/17/17 18:59 06:59 18:59 Intake Total 250 700 Balance 250 700 Intake: IV 600 Sodium Chloride 0.9% 1, 600 000 ml @ 75 mls/hr IV . [id number] [facility] Rx#:[id number] Intake, IV Titration 100 Amount methylPREDNISolone SOD 100 SUCCI 250 mg In Sodium Chloride 0.9% 100 ml @ 100 mls/hr IVPB Q6HR [facility] Rx#:[id number] Oral 250 Other: Voiding Method Toilet Toilet Toilet # Voids 2 1 - Exam General: The patient is awake and alert, in no distress Eye: there is normal conjunctiva bilaterally. Neck: The neck is supple, there is no JVD. Cardiovascular: Normal S1-S2, no S3-S4, no murmurs. Respiratory: Lungs clear to auscultation bilaterally Gastrointestinal: Abdomen is soft, nontender Musculoskeletal: There is no pedal edema. Neurological:. Speech is normal. Skin: Skin is warm and dry - Labs CBC & Chem 7: 09/17/17 07:28 09/17/17 07:28 Labs: Abnormal Lab Results - Last 24 Hours (Table) 09/16/17 09/16/17 09/17/17 Range/Units 16:59 20:25 07:25 Plt Count (150-450) k/uL Lymphocytes # (1.0-4.8) k/uL PT (9.0-12.0) sec INR (<1.2) BUN (7-17) mg/dL Glucose (74-99) mg/dL POC Glucose (mg/dL) 212 H 192 H 155 H (75-99) mg/dL 09/17/17 09/17/17 09/17/17 Range/Units 07:28 07:28 07:28 Plt Count 82 L (150-450) k/uL Lymphocytes # 0.6 L (1.0-4.8) k/uL PT 26.1 H (9.0-12.0) sec INR 2.9 H (<1.2) BUN 27 H (7-17) mg/dL Glucose 156 H (74-99) mg/dL POC Glucose (mg/dL) (75-99) mg/dL 09/17/17 Range/Units 11:49 Plt Count (150-450) k/uL Lymphocytes # (1.0-4.8) k/uL PT (9.0-12.0) sec INR (<1.2) BUN (7-17) mg/dL Glucose (74-99) mg/dL POC Glucose (mg/dL) 185 H (75-99) mg/dL Assessment and Plan Assessment: #1 Acute exacerbation of multiple sclerosis: IV Solu-Medrol per neurology to 250 mg IV every 6 hours. Neurology following. Continue physical therapy #2 previous history of DVT and PE patient maintained on Coumadin. #3 underlying history of hypothyroidism maintained on Synthroid will continue #4 borderline diabetes mellitus. A1c is 5.9 #5 underlying history of sleep apnea maintained on CPAP #5 underlying history of hyperlipidemia maintained on Pravachol - Change Coumadin dose to 5 mg daily starting Monday night - Continue Levemir 10 units at bedtime plus sliding scale while on IV steroids to prevent steroid-induced hyperglycemia - MRI of the brain revealed with no acute findings and no convincing evidence of demyelinating disease awaiting further input from neurology - Tomorrow will conclude 5 days of high-dose IV steroids - PT/OT evaluation
[2017-09-17 17:26] LABS: Glucose,Whole Blood 133 mg/dL (75-99)
[2017-09-17] MEDS: WARFARIN 5 MG TAB PO SCH (17:47)
--- NOTE | 2017-09-17 18:11 | P.PN ---
Subjective Progress Note Date: 09/17/17 Principal diagnosis: multiple sclerosis exacerbation Interval Update: (09/17/17) Patient is making significant progress and improvement. Patient is now ambulating regularly with assistive device. Patient's numbenss and tingling is 90% improved. It is reasonable for the patient to be cleared by neurology on once steroid therapy is completed. Interval Update: (09/16/17) Neurology is following on a 61-year-old female with a history of multiple sclerosis and prior CVA. Patient is known to have deficits from prior CVA. Patient is known to our practice and is a patient within her group. Patient does have bilateral numbness and weakness which has improved since yesterday again day over day. Improvement has occurred since starting IV Solu-Medrol 1.5 days ago. Although not resolved, the intensity is decreasing. Patient was ambulating with a cane for short distances earlier today per nursing staff. Patient is currently 48 hours and 2000 mg Solu-Medrol since starting medication therapy. Review of patient's records from within our practice note patient usually acquires 4-5 days of IV Solu-Medrol at 1000 mg daily for her flares. On contact, patient is supine in bed, a resting in no acute distress. Patient is alert and oriented 4 and is a very active participant in her care and knowledge of her disease process. Patient states she is approximately 50% improved towards baseline. Objective - Vital Signs Vital signs: Vital Signs Temp 97.2 F L 09/17/17 15:00 Pulse 61 09/17/17 15:00 Resp 18 09/17/17 15:00 BP 143/79 09/17/17 15:00 Pulse Ox 93 L 09/17/17 15:00 Intake & Output 09/16/17 09/17/17 09/17/17 18:59 06:59 18:59 Intake Total 250 700 Balance 250 700 Intake: IV 600 Sodium Chloride 0.9% 1, 600 000 ml @ 75 mls/hr IV . [id number] [facility] Rx#:[id number] Intake, IV Titration 100 Amount methylPREDNISolone SOD 100 SUCCI 250 mg In Sodium Chloride 0.9% 100 ml @ 100 mls/hr IVPB Q6HR [facility] Rx#:[id number] Oral 250 Other: Voiding Method Toilet Toilet Toilet # Voids 2 1 - Exam General appearance: Alert & oriented x4, no apparent distress. Head: Atraumatic, normocephalic, normal inspection Eyes: Well appearance, PERRLA, EOMI. Absent scleral icterus, conjunctival injection, nystagmus, periorbital swelling. Ear, nose and throat: Normal exam, mucous membranes moist Neck: Normal inspection, absent tenderness, lymphadenopathy. Respiratory: No increased work of breathing Cardiovascular: Regular rate, rhythm GI/abdominal: Normal bowel sounds, nondistended, no tenderness, no guarding, no rebound, no rigidity. Extremities: All range of motion, normal capillary refill, no tenderness, pedal edema joint swelling, calf tenderness. Neurological: cranial nerves II through XII intact no lateralizing weakness no seizure activity noted on physical exam no pronator drift and no nystagmus. Left lower extremity: 4-/5 Right lower extremity: 4-/5 Left upper extremity: 4-/5 Right upper extremity: 4-/5 (scoring is with regard to patients normal baseline) Sensation: hypersensitive but less than previous physical exam in all 4 extremities Psychological: Mood and affect appropriate for setting. - Labs CBC & Chem 7: 09/17/17 07:28 09/17/17 07:28 Labs: Abnormal Lab Results - Last 24 Hours (Table) 09/16/17 09/17/17 09/17/17 Range/Units 20:25 07:25 07:28 Plt Count 82 L (150-450) k/uL Lymphocytes # 0.6 L (1.0-4.8) k/uL PT (9.0-12.0) sec INR (<1.2) BUN (7-17) mg/dL Glucose (74-99) mg/dL POC Glucose (mg/dL) 192 H 155 H (75-99) mg/dL 09/17/17 09/17/17 09/17/17 Range/Units 07:28 07:28 11:49 Plt Count (150-450) k/uL Lymphocytes # (1.0-4.8) k/uL PT 26.1 H (9.0-12.0) sec INR 2.9 H (<1.2) BUN 27 H (7-17) mg/dL Glucose 156 H (74-99) mg/dL POC Glucose (mg/dL) 185 H (75-99) mg/dL 09/17/17 Range/Units 17:24 Plt Count (150-450) k/uL Lymphocytes # (1.0-4.8) k/uL PT (9.0-12.0) sec INR (<1.2) BUN (7-17) mg/dL Glucose (74-99) mg/dL POC Glucose (mg/dL) 133 H (75-99) mg/dL Assessment and Plan (1) CVA (cerebral vascular accident) Current Visit: Yes Status: Acute Code(s): I63.9 - CEREBRAL INFARCTION, UNSPECIFIED SNOMED Code(s): 251724210 (2) History of CVA (cerebrovascular accident) Current Visit: Yes Status: Acute Code(s): Z86.73 - PRSNL HX OF TIA (TIA), AND CEREB INFRC W/O RESID DEFICITS SNOMED Code(s): 202644511 (3) Multiple sclerosis exacerbation Current Visit: Yes Status: Acute Code(s): G35 - MULTIPLE SCLEROSIS SNOMED Code(s): 696893946 (4) Expressive aphasia Current Visit: No Status: Acute Code(s): R47.01 - APHASIA SNOMED Code(s): 308924757 (5) Generalized weakness Current Visit: No Status: Acute Code(s): R53.1 - WEAKNESS SNOMED Code(s): 90625029 Plan: 1. Multiple sclerosis exacerbation 2. Expressive aphasia 3. Generalized weakness 4. History of prior CVA Patient does have a known history of multiple sclerosis and is being treated for that disorder by another provider in our group. Patient is somewhat known to this provider. Patient is very adept at her disease process and she is adamant that this is very consistent with her known MS flares. On physical exam the patient does have generalized extremity weakness as noted and on physical exam findings. Patiet has returned to baseline with regard to speech changes. Patient has a history of speech preocupation with the word "house" per spouse which is residual defict from prior CVA in 2006. IV Solu-Medrol 250 mg every 6 hours will be continued. Ordered sliding insulin scale as well as bedside blood glucose checks to continue. Continue DVT prophylaxis MRI with and without contrast of the cervical spine as well for verification of any new or changed underlying MS changes to the cervical cord. Vitamin D level ordered MRI of the brain with and without contrast noted no enhancement and was essentially a stable exam. On CT of the brain from the ED, it was noted that there was a large old left middle cerebral artery distribution infarct. Single focus of increased signal in the right parietal lobe with white matter of uncertain significance. No convincing evidence of demyelinating disease. No adverse change compared to old exam. continue DVT prophylaxis. continue neuro checks as ordered. Patient is 90% improved with regard to exacerbation symptoms. Status: Neurology will reassess the patient in 24 hours to reassess. Anticipate clearing the patient from a neurological standpoint on 09/18/17. I have discussed the plan of care with the physician prior to implementation and he agrees with the plan as implemented.
[2017-09-17] MEDS: PRAVASTATIN SODIUM 20 MG TAB PO SCH (20:52)
[2017-09-17] MEDS: CITALOPRAM HYDROBROMIDE 20 MG TAB PO SCH (20:52)
[2017-09-17] MEDS: ACETAMINOPHEN TAB 325 MG TAB PO PRN (20:52)
[2017-09-17] MEDS: INSULIN DETEMIR 100 UNIT/ML 10 ML VIAL SQ SCH (20:56)
[2017-09-17 21:02] LABS: Glucose,Whole Blood 256 mg/dL (75-99)
[2017-09-18] MEDS: methylPREDNISolone SOD SUCCI 250 MG in SODIUM CHLORIDE 0.9% 100 ML IVPB SCH ×4 (05:57→23:37)
--- NOTE | 2017-09-18 06:24 | P.PN ---
Subjective Progress Note Date: 09/18/17 Principal diagnosis: multiple sclerosis exacerbation Interval update: (09/18/17) Patient is back to baseline based on nursing reports of activity and patient statements. Patient can be cleared from a neurological standpoint for discharge at this point and follow up in the office for MS evaluation with normal provider. Interval Update: (09/17/17) Patient is making significant progress and improvement. Patient is now ambulating regularly with assistive device. Patient's numbenss and tingling is 90% improved. It is reasonable for the patient to be cleared by neurology on once steroid therapy is completed. Interval Update: (09/16/17) Neurology is following on a 61-year-old female with a history of multiple sclerosis and prior CVA. Patient is known to have deficits from prior CVA. Patient is known to our practice and is a patient within her group. Patient does have bilateral numbness and weakness which has improved since yesterday again day over day. Improvement has occurred since starting IV Solu-Medrol 1.5 days ago. Although not resolved, the intensity is decreasing. Patient was ambulating with a cane for short distances earlier today per nursing staff. Patient is currently 48 hours and 2000 mg Solu-Medrol since starting medication therapy. Review of patient's records from within our practice note patient usually acquires 4-5 days of IV Solu-Medrol at 1000 mg daily for her flares. On contact, patient is supine in bed, a resting in no acute distress. Patient is alert and oriented 4 and is a very active participant in her care and knowledge of her disease process. Patient states she is approximately 50% improved towards baseline. Objective - Vital Signs Vital signs: Vital Signs Temp 96.9 F L 09/17/17 22:27 Pulse 52 L 09/17/17 22:27 Resp 18 09/17/17 22:27 BP 140/67 09/17/17 22:27 Pulse Ox 94 L 09/17/17 22:27 Intake & Output 09/17/17 09/17/17 09/18/17 06:59 18:59 06:59 Intake Total 250 700 320 Balance 250 700 320 Intake: IV 600 320 Sodium Chloride 0.9% 1, 600 000 ml @ 75 mls/hr IV . [id number] [facility] Rx#:[id number] methylPREDNISolone SOD 200 SUCCI 250 mg In Sodium Chloride 0.9% 100 ml @ 100 mls/hr IVPB Q6HR [facility] Rx#:[id number] ns @10 120 Intake, IV Titration 100 Amount methylPREDNISolone SOD 100 SUCCI 250 mg In Sodium Chloride 0.9% 100 ml @ 100 mls/hr IVPB Q6HR [facility] Rx#:[id number] Oral 250 Other: Voiding Method Toilet Toilet Toilet # Voids 1 1 - Exam General appearance: Alert & oriented x4, no apparent distress. Head: Atraumatic, normocephalic, normal inspection Eyes: Well appearance, PERRLA, EOMI. Absent scleral icterus, conjunctival injection, nystagmus, periorbital swelling. Ear, nose and throat: Normal exam, mucous membranes moist Neck: Normal inspection, absent tenderness, lymphadenopathy. Respiratory: No increased work of breathing Cardiovascular: Regular rate, rhythm GI/abdominal: Normal bowel sounds, nondistended, no tenderness, no guarding, no rebound, no rigidity. Extremities: All range of motion, normal capillary refill, no tenderness, pedal edema joint swelling, calf tenderness. Neurological: cranial nerves II through XII intact no lateralizing weakness no seizure activity noted on physical exam no pronator drift and no nystagmus. Left lower extremity: 4-/5 Right lower extremity: 4-/5 Left upper extremity: 4-/5 Right upper extremity: 4-/5 (scoring is with regard to patients normal baseline) Sensation: hypersensitive but less than previous physical exam in all 4 extremities Psychological: Mood and affect appropriate for setting. - Labs CBC & Chem 7: 09/17/17 07:28 09/17/17 07:28 Labs: Abnormal Lab Results - Last 24 Hours (Table) 09/17/17 09/17/17 09/17/17 Range/Units 07:25 07:28 07:28 Plt Count 82 L (150-450) k/uL Lymphocytes # 0.6 L (1.0-4.8) k/uL PT 26.1 H (9.0-12.0) sec INR 2.9 H (<1.2) BUN (7-17) mg/dL Glucose (74-99) mg/dL POC Glucose (mg/dL) 155 H (75-99) mg/dL 09/17/17 09/17/17 09/17/17 Range/Units 07:28 11:49 17:24 Plt Count (150-450) k/uL Lymphocytes # (1.0-4.8) k/uL PT (9.0-12.0) sec INR (<1.2) BUN 27 H (7-17) mg/dL Glucose 156 H (74-99) mg/dL POC Glucose (mg/dL) 185 H 133 H (75-99) mg/dL 09/17/17 Range/Units 20:42 Plt Count (150-450) k/uL Lymphocytes # (1.0-4.8) k/uL PT (9.0-12.0) sec INR (<1.2) BUN (7-17) mg/dL Glucose (74-99) mg/dL POC Glucose (mg/dL) 256 H (75-99) mg/dL Assessment and Plan (1) CVA (cerebral vascular accident) Current Visit: Yes Status: Acute Code(s): I63.9 - CEREBRAL INFARCTION, UNSPECIFIED SNOMED Code(s): 265699218 (2) History of CVA (cerebrovascular accident) Current Visit: Yes Status: Acute Code(s): Z86.73 - PRSNL HX OF TIA (TIA), AND CEREB INFRC W/O RESID DEFICITS SNOMED Code(s): 138455644 (3) Multiple sclerosis exacerbation Current Visit: Yes Status: Acute Code(s): G35 - MULTIPLE SCLEROSIS SNOMED Code(s): 400189987 (4) Expressive aphasia Current Visit: No Status: Acute Code(s): R47.01 - APHASIA SNOMED Code(s): 512431143 (5) Generalized weakness Current Visit: No Status: Acute Code(s): R53.1 - WEAKNESS SNOMED Code(s): 37733796 Plan: 1. Multiple sclerosis exacerbation 2. Expressive aphasia 3. Generalized weakness 4. History of prior CVA Patient does have a known history of multiple sclerosis and is being treated for that disorder by another provider in our group. Patient is somewhat known to this provider. Patient is very adept at her disease process and she is adamant that this is very consistent with her known MS flares. On physical exam the patient does have generalized extremity weakness as noted and on physical exam findings. Patient has returned to baseline. Patient has a history of speech preocupation with the word "house" per spouse which is residual defict from prior CVA in 2007. MRI of the brain with and without contrast noted no enhancement and was essentially a stable exam. On CT of the brain from the ED, it was noted that there was a large old left middle cerebral artery distribution infarct. Single focus of increased signal in the right parietal lobe with white matter of uncertain significance. No convincing evidence of demyelinating disease. No adverse change compared to old exam. continue DVT prophylaxis. continue neuro checks as ordered. Vitamin D level was within range. Patient is back to baseline. Status: Neurology will clear the patient from a neurological standpoint. I have discussed the plan of care with the physician prior to implementation and he agrees with the plan as implemented.
[2017-09-18] MEDS: METHYLPHENIDATE HCL 10 MG TAB PO SCH ×2 (08:00→22:03)
[2017-09-18] MEDS: BISACODYL 5 MG TABLET.DR PO SCH (08:00)
[2017-09-18] MEDS: INSULIN ASPART 100 UNIT/ML 1 ML 10 ML VIAL SQ SCH ×4 (08:01→22:07)
[2017-09-18] MEDS: PREGABALIN 100 MG CAP PO SCH ×3 (08:01→22:03)
[2017-09-18] MEDS: CHOLECALCIFEROL 1,000 UNIT TAB PO SCH (08:02)
[2017-09-18] MEDS: BACLOFEN 10 MG TAB PO SCH (08:02)
[2017-09-18] MEDS: ASPIRIN 81 MG PO SCH (08:02)
[2017-09-18] MEDS: Dimethyl Fumarate [Tecfidera] 240 MG PO SCH ×2 (08:02→22:04)
[2017-09-18] MEDS: FERROUS SULFATE 325 MG TAB PO SCH (08:02)
[2017-09-18] MEDS: FUROSEMIDE 40 MG TAB PO SCH ×2 (08:03→22:04)
[2017-09-18] MEDS: LEVOTHYROXINE 50 MCG TAB PO SCH (08:03)
[2017-09-18] MEDS: FOLIC ACID 1 MG TAB PO SCH (08:03)
[2017-09-18] MEDS: PANTOPRAZOLE 40 MG TABLET PO SCH (08:04)
[2017-09-18] MEDS: MONTELUKAST 10 MG TAB PO SCH (08:04)
[2017-09-18] MEDS: POTASSIUM CHLORIDE ER 20 MEQ TAB.ER PO SCH ×2 (08:04→22:05)
[2017-09-18] MEDS: LORATADINE 10 MG TAB PO SCH (08:04)
--- NOTE | 2017-09-18 08:12 | MR ---
EXAMINATION TYPE: MR cervical spine wo/w con DATE OF EXAM: 09/18/2017 7:38 AM COMPARISON: 12/29/2014 HISTORY: MS CONTRAST: The patient was injected with 10 mL intravenous Gadavist gadolinium contrast. Multiplanar MultiSpin echo imaging of the cervical spine was performed. C2-C3: No evidence for degenerative disc disease. No disc bulge/herniation or protrusion. No Canal stenosis. Foramina are patent bilaterally. C3-C4: Moderate disc desiccation and posterior disc bulging effaces the ventral thecal sac. Encapsula ting spur resulting in disc endplate complex. Borderline to mild central stenosis are redemonstrated. Mild left foraminal encroachment. C4-C5: Mild to moderate disc desiccation. Circumferential disc bulge greatest posteriorly with encaps ulating spur resulting in mild disc endplate complex. Borderline central stenosis seen. Left foramina l encroachment noted. C5-C6: Mild disc desiccation. Mild posterior disc bulge with mild effacement ventral thecal sac. No e vidence for central stenosis. Left foraminal encroachment secondary to degenerative change cervical a pophyseal joint. C6-C7:Mild disc desiccation. Mild posterior disc bulge with mild effacement ventral thecal sac. No ev idence for central stenosis. Left foraminal encroachment secondary to degenerative change cervical ap ophyseal joint. C7-T1: Mild disc desiccation. Mild posterior disc bulge with mild effacement ventral thecal sac. No e vidence for central stenosis. No distinct foraminal encroachment. No cervical spine fracture. There is normal alignment. There are vague areas of increased signal wit hin the cervical spinal cord at C2-3 and C3-4. Demyelination difficult to exclude. Craniovertebral ju nction relationships are within normal limits. No pathologic enhancement. IMPRESSION: 1. There are vague areas of increased signal within the cervical spinal cord at C2-3 and C3-4. Demyel ination difficult to exclude. 2. Stable multilevel degenerative disc disease with spondylosis and disc endplate complex resulting a nd there is borderline to mild central stenosis and foraminal encroachment as discussed.
[2017-09-18 08:24] LABS: Basophils % (A) 0 %; Eosinophils # (A) 0.1 k/uL (0-0.7); Eosinophils % (A) 1 %; HCT 41.7 % (34.0-46.0); Lymphocytes # (A) 0.4 k/uL (1.0-4.8); Lymphocytes % (A) 9 %; MCH 29.4 pg (25.0-35.0); MCHC 33.5 g/dL (31.0-37.0); MCV 87.7 fL (80.0-100.0); Mean Platelet Volume 11.2; Monocytes # (A) 0.1 k/uL (0-1.0); Monocytes % (A) 2 %; Neutrophils % (A) 88 %; RBC 4.75 m/uL (3.80-5.40); RDW 13.5 % (11.5-15.5); WBC 4.6 k/uL (3.8-10.6)
[2017-09-18 08:31] LABS: Platelet Count 79 k/uL (150-450)
[2017-09-18 09:12] LABS: Large Platelets Present
[2017-09-18 09:13] LABS: Poikilocytosis (M) Present
[2017-09-18] MEDS: NYSTATIN 100,000 UNIT/GM POWD 15 GM TOPICAL SCH ×2 (09:55→22:05)
[2017-09-18 11:48] LABS: Glucose,Whole Blood 169 mg/dL (75-99)
[2017-09-18] MEDS: ACETAMINOPHEN TAB 325 MG TAB PO PRN (14:00)
--- NOTE | 2017-09-18 15:20 | P.PN ---
Subjective Progress Note Date: 09/18/17 Huong Cooper is a 61-year-old female with a history of multiple sclerosis who presented to [facility] emergency department for a chief complaint of bilateral numbness and weakness. Patient states this is similar to her previous flareups for multiple sclerosis. Patient states that this started happening about a week ago. Patient denies chest pain, shortness of breath, or abdominal pain. Patient is currently not in pain but is uncomfortable with the numb feeling. Patient has a history of stroke 10 years ago. She has residual right-sided weakness and speech impairments. Her helped with answering questions because of the speech impairments. No new weakness is noted. 09/14/2017 patient states she is showing improvement with the steroids. She has no new complaints. The IV Solu-Medrol will be increased to every 8 hours. She is currently receiving steroids daily. 09/15/2017 patient showing some improvement with the IV steroids. Still complaining of some weakness and pain. No other new complaints. MRI of the brain shows a single focus increased signal in the right parietal lobe white matter of uncertain significance. Large old left middle cerebral artery distribution infarct. No adverse change compared to old exam. Neurology has reviewed MRI results 09/18/2017 patient is showing improvement in her weakness. She has 1 more day of the IV steroids to complete treatment for her MS exacerbation. Consult for Dr. Abdul for possible inpatient rehab. Neurology following. Cervical spine MRI completed showing a vague increase in signal at the C-spine at C2 to C3 and C3 to C4. Demyelination difficult to exclude Objective - Vital Signs Vital signs: Vital Signs Temp 97.2 F L 09/18/17 07:00 Pulse 57 L 09/18/17 07:00 Resp 18 09/18/17 07:00 BP 138/68 09/18/17 07:00 Pulse Ox 93 L 09/18/17 07:00 Intake & Output 09/17/17 09/18/17 09/18/17 18:59 06:59 18:59 Intake Total 700 320 100 Balance 700 320 100 Intake: IV 600 320 100 Sodium Chloride 0.9% 1, 600 000 ml @ 75 mls/hr IV . [id number] [facility] Rx#:[id number] methylPREDNISolone SOD 200 100 SUCCI 250 mg In Sodium Chloride 0.9% 100 ml @ 100 mls/hr IVPB Q6HR [facility] Rx#:[id number] ns @10 120 Intake, IV Titration 100 Amount methylPREDNISolone SOD 100 SUCCI 250 mg In Sodium Chloride 0.9% 100 ml @ 100 mls/hr IVPB Q6HR [facility] Rx#:[id number] Other: Voiding Method Toilet Toilet Toilet # Voids 1 - Exam Head normocephalic Neck supple Lungs clear to auscultation bilaterally no wheezing or crackles Heart regular rate and rhythm S1-S2, no rub or gallop Abdomen is soft nontender nondistended positive bowel sounds no hepatosplenomegaly Extremities no edema Neuro alert and orientated to 3. Expressive aphasia which is chronic. Patient is able to follow simple commands. Hypersensitivity to touch. Generalized bilateral weakness involving both lower extremities. Strength show improvement - Labs CBC & Chem 7: 09/18/17 07:55 09/17/17 07:28 Labs: Abnormal Lab Results - Last 24 Hours (Table) 09/17/17 09/17/17 09/18/17 Range/Units 17:24 20:42 07:55 Plt Count 79 L (150-450) k/uL Lymphocytes # 0.4 L (1.0-4.8) k/uL POC Glucose (mg/dL) 133 H 256 H (75-99) mg/dL 09/18/17 Range/Units 11:44 Plt Count (150-450) k/uL Lymphocytes # (1.0-4.8) k/uL POC Glucose (mg/dL) 169 H (75-99) mg/dL Assessment and Plan Assessment: #1 Acute exacerbation of multiple sclerosis: IV Solu-Medrol adjusted per neurology to 250 mg IV every 6 hours. Neurology following. Continue physical therapy patient has 1 more day of IV steroids #2 previous history of DVT and PE patient maintained on Coumadin. Continue to monitor daily PT/INR #3 underlying history of hypothyroidism maintained on Synthroid will continue #4 borderline diabetes mellitus. Will cover with insulin sliding scale while on steroids. A1c is 5.9 #5 underlying history of sleep apnea maintained on CPAP #6 underlying history of hyperlipidemia maintained on Pravachol Anticipating discharge possibly tomorrow. Have patient evaluated by by Dr. Abdul for possible inpatient rehab I performed an examination of the patient and discussed their management with the physician Shoe Patternmaker. I have reviewed the Physician Shoe Patternmaker's notes and agree with the documented findings and plan of care
[2017-09-18] MEDS ORDERED: WARFARIN 5 MG TAB PO SCH (17:00)
[2017-09-18 17:34] LABS: Glucose,Whole Blood 218 mg/dL (75-99)
[2017-09-18] MEDS: WARFARIN 5 MG TAB PO SCH (17:48)
[2017-09-18 20:46] LABS: Glucose,Whole Blood 295 mg/dL (75-99)
[2017-09-18] MEDS: PRAVASTATIN SODIUM 20 MG TAB PO SCH (22:04)
[2017-09-18] MEDS: INSULIN DETEMIR 100 UNIT/ML 10 ML VIAL SQ SCH (22:06)
[2017-09-18] MEDS: CITALOPRAM HYDROBROMIDE 20 MG TAB PO SCH (22:06)
[2017-09-18] MEDS ORDERED: INSULIN ASPART 100 UNIT/ML 1 ML 10 ML VIAL SQ ONE (22:08)
[2017-09-19] MEDS: methylPREDNISolone SOD SUCCI 250 MG in SODIUM CHLORIDE 0.9% 100 ML IVPB SCH ×4 (05:40→23:26)
[2017-09-19 07:40] LABS: INR 3.5 (<1.2)
[2017-09-19 07:43] LABS: Glucose,Whole Blood 163 mg/dL (75-99)
[2017-09-19 07:52] LABS: Albumin 3.1 g/dL (3.5-5.0); Calcium 8.4 mg/dL (8.4-10.2); Potassium 3.8 mmol/L (3.5-5.1); Total Bilirubin 0.5 mg/dL (0.2-1.3); Total Protein 5.1 g/dL (6.3-8.2)
--- NOTE | 2017-09-19 07:58 | P.CONS ---
History of Present Illness - Chief Complaint Gait disturbance - History of Present Illness I had the op to see patient for inpatient rehab consultation with regard to gait disturbance. She was admitted to [facility] September 12 with a bilateral weakness, history of MS and multiple exacerbations. Seen by Dr. Rudy Diez. Seen by PT and OT reports supervision with mobility and basic self-care tasks. In fact OT has discontinued due to functional level at baseline. Previous functional history as elicited from patient: Patient has difficulty answering questions and I'm not sure if this is hearing related or cognitive related or both. Review of Systems Review of systems: ENT: Denies sneezes or discharge. Eyes: Denies discharge or photophobia. Cardiac: Denies chest pain or palpitation. Pulmonary: Denies cough or shortness of breath. Breast: Denies discharge or lumps. Gastrointestinal: Denies nausea, emesis, constipation, diarrhea. Genitourinary: Denies discharge or frequency. Musculoskeletal: Denies muscle or bone aches. Neurologic: Bilateral weakness and numbness. Endocrine: Denies shakes or sweats. Oncology: Denies cancers. Dermatologic: Denies rash, itching, pruritus. ALLERGY/immunology: Denies sneezes, rashes. Past Medical History Past Medical History: Chest Pain / Angina, CVA/TIA, Fibromyalgia, Musculoskeletal Disorder, Neurologic Disorder, Osteoarthritis (OA), Pulmonary Embolus (PE), Sleep Apnea/CPAP/BIPAP, Thyroid Disorder Additional Past Medical History / Comment(s): MULTIPLE SCLEROSIS, HX OF CVA 2006 WITH R SIDED WEAKNESS AND DYSPHASIA-MUCH IMPROVED, MIGRAINES, SLEEP APNEA( HAS C-PAP MACHINE BUT DOES NOT USE) ABD HERNIA,CHRONIC PAIN ESPECIALLY ON R SIDE OF BODY AND LOW BACK . PAINFUL FOR HER TO LIE FLAT. HX OF NOSEBLEED JUL 2014 AND RECEIVED PLASMA TRANSFUSION. takes pills with applesauce. 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 MDRO Source:: URINE Past Surgical History: Appendectomy, Cholecystectomy, Hysterectomy Additional Past Surgical History / Comment(s): Incisional hernia repair, laparoscopic lysis of adhesions in 1987, ganglion cyst removal of the left wrist , patent foramen ovale patch in 2006, RF ablation for back pain. Past Anesthesia/Blood Transfusion Reactions: No Reported Reaction Smoking Status: Never smoker - Past Family History Mother Family Medical History: Hypertension Additional Family Medical History / Comment(s): osteoporosis Father Family Medical History: Dementia Medications and Allergies Home Medications Medication Instructions Recorded Confirmed Type Aspirin 81 mg PO DAILY 11/08/13 09/12/17 History Baclofen [Lioresal] 10 mg PO DAILY 11/08/13 09/12/17 History Citalopram Hydrobromide [CeleXA] 40 mg PO HS 11/08/13 09/12/17 History Ferrous Sulfate [Feosol] 325 mg PO DAILY 11/08/13 09/12/17 History Fexofenadine HCl [Mimi Allergy] 180 mg PO DAILY 11/08/13 09/12/17 History Furosemide [Lasix] 40 mg PO BID 11/08/13 09/12/17 History Montelukast [Singulair] 10 mg PO DAILY 11/08/13 09/12/17 History Nitroglycerin Sl Tabs [Nitrostat] 0.4 mg SUBLINGUAL Q5M PRN 11/08/13 09/12/17 History Pantoprazole Sodium [Protonix] 40 mg PO DAILY 11/08/13 09/12/17 History Potassium Chloride [Potassium 20 meq PO BID 11/08/13 09/12/17 History Chloride ER] Cholecalciferol [Vitamin D3] 2,000 unit PO DAILY 11/18/15 09/12/17 History Dimethyl Fumarate [Tecfidera] 240 mg PO BID 11/18/15 09/12/17 History Fluticasone Nasal Parker [Flonase 1 spray EA NOSTRIL DAILY 11/18/15 09/12/17 History Nasal Parker] Methylphenidate HCl [Ritalin] 20 mg PO BID 11/18/15 09/12/17 History Pravastatin Sodium [Pravachol] 20 mg PO HS 11/18/15 09/12/17 History Warfarin Sodium 5 mg PO MO@1700 11/18/15 09/12/17 History Warfarin [Coumadin] 7.5 mg PO SUTUWETHFRSA@1700 11/18/15 09/12/17 History fentaNYL [Fentanyl] 25 mcg TRANSDERM Q72H 11/18/15 09/12/17 History HYDROcodone/APAP 5-325MG [[place] 1 tab PO Q6HR PRN 07/13/16 09/12/17 History 5-325] Pregabalin [Lyrica] 100 mg PO TID 07/13/16 09/12/17 History Folic Acid 0.4 mg PO DAILY 08/18/16 09/12/17 History Biotin 10,000 mcg PO DAILY 07/06/17 09/12/17 History Bisacodyl 10 mg PO DAILY 09/12/17 09/12/17 History Cyanocobalamin/Folic AC/Vit B6 1 tab PO DAILY 09/12/17 09/12/17 History [Fabb Tablet] Isosorbide Mononitrate ER [Imdur] 30 mg PO DAILY 09/12/17 09/12/17 History Levothyroxine Sodium [Synthroid] 50 mcg PO DAILY 09/12/17 09/12/17 History Nystatin 100,000 Unit/gm Powd 1 applic TOPICAL BID 09/12/17 09/12/17 History [Mycostatin Powder] Allergies Allergy/AdvReac Type Severity Reaction Status Date / Time adhesive Allergy SKIN Verified 09/12/17 16:34 PEELING Physical Exam Vitals: Vital Signs Temp Pulse Resp BP Pulse Ox 09/18/17 23:00 97 F L 50 L 16 132/71 94 L 09/18/17 15:00 97.1 F L 51 L 18 123/65 95 Intake and Output 09/18/17 09/19/17 09/19/17 22:59 06:59 14:59 Intake Total 800 Balance 800 Intake: Oral 800 Other: Voiding Method Toilet # Voids 1 1 Skin: Good color, texture, turgor. General: Medium to overweight build and comfortable appearance. Head: Normocephalic, atraumatic. Eyes: Symmetric. Pupils equal round. Ears: Symmetric. Hearing within normal limits. Mouth: Clear. Neck: Supple. Carotid without bruit. Cardiac: Regular rate and rhythm. Lungs: Clear anteriorly and posteriorly. Abdomen: Soft active nontender. Extremities: Normal tone. Neurological: Mental status: Alert, cooperative, pleasant. Cranial nerves: Symmetric facial tone and trapezius. Motor: Actively elevates all limbs off of bed and with active movement throughout. Sensation: Intact throughout. DTRs: Symmetric and equal throughout. Mobility: Sits without assistance or verbal cueing or loss of balance. Results CBC & Chem 7: 09/18/17 07:55 09/17/17 07:28 Labs: Abnormal Lab Results - Last 24 Hours (Table) 09/18/17 09/18/17 09/18/17 Range/Units 07:55 11:44 17:29 Plt Count 79 L (150-450) k/uL Lymphocytes # 0.4 L (1.0-4.8) k/uL PT (9.0-12.0) sec INR (<1.2) POC Glucose (mg/dL) 169 H 218 H (75-99) mg/dL 09/18/17 09/19/17 09/19/17 Range/Units 20:15 07:01 07:42 Plt Count (150-450) k/uL Lymphocytes # (1.0-4.8) k/uL PT 31.0 H (9.0-12.0) sec INR 3.5 H (<1.2) POC Glucose (mg/dL) 295 H 163 H (75-99) mg/dL Assessment and Plan (1) Multiple sclerosis exacerbation Current Visit: Yes Status: Acute Code(s): G35 - MULTIPLE SCLEROSIS SNOMED Code(s): 031060091 Plan: Impression: 1. Gait disturbance. 2. MS exacerbation. 3. History of right MCA stroke. 4. Bilateral weakness and numbness. 5. Fiber neuralgia. 6. Osteoarthritis. 7. Sleep apnea. Comments and plan: PT and OT ordered. Assess patient to be at supervision level. In fact OT is discontinued due to patient appears to be at baseline level. At this time, he shouldn't does not appear to have need for inpatient rehab.
[2017-09-19 08:01] LABS: Basophils % (A) 0 %; Eosinophils # (A) 0.1 k/uL (0-0.7); Eosinophils % (A) 1 %; HCT 40.5 % (34.0-46.0); Lymphocytes # (A) 0.4 k/uL (1.0-4.8); Lymphocytes % (A) 7 %; MCH 29.8 pg (25.0-35.0); MCHC 34.4 g/dL (31.0-37.0); MCV 86.5 fL (80.0-100.0); Mean Platelet Volume 11.5; Monocytes # (A) 0.2 k/uL (0-1.0); Monocytes % (A) 3 %; Neutrophils % (A) 88 %; RBC 4.68 m/uL (3.80-5.40); RDW 13.5 % (11.5-15.5); WBC 5.7 k/uL (3.8-10.6)
[2017-09-19 08:09] LABS: Platelet Count 79 k/uL (150-450)
[2017-09-19] MEDS: INSULIN ASPART 100 UNIT/ML 1 ML 10 ML VIAL SQ SCH ×4 (08:21→22:08)
[2017-09-19] MEDS: CHOLECALCIFEROL 1,000 UNIT TAB PO SCH (08:22)
[2017-09-19] MEDS: Dimethyl Fumarate [Tecfidera] 240 MG PO SCH ×2 (08:22→22:11)
[2017-09-19] MEDS: FUROSEMIDE 40 MG TAB PO SCH ×2 (08:23→22:09)
[2017-09-19] MEDS: NYSTATIN 100,000 UNIT/GM POWD 15 GM TOPICAL SCH ×2 (08:23→22:09)
[2017-09-19] MEDS: POTASSIUM CHLORIDE ER 20 MEQ TAB.ER PO SCH ×2 (08:23→22:09)
[2017-09-19] MEDS: LORATADINE 10 MG TAB PO SCH (08:23)
[2017-09-19] MEDS: FERROUS SULFATE 325 MG TAB PO SCH (08:23)
[2017-09-19] MEDS: PANTOPRAZOLE 40 MG TABLET PO SCH (08:23)
[2017-09-19] MEDS: BACLOFEN 10 MG TAB PO SCH (08:23)
[2017-09-19] MEDS: METHYLPHENIDATE HCL 10 MG TAB PO SCH ×2 (08:23→22:08)
[2017-09-19] MEDS: FOLIC ACID 1 MG TAB PO SCH (08:23)
[2017-09-19] MEDS: ASPIRIN 81 MG PO SCH (08:23)
[2017-09-19] MEDS: MONTELUKAST 10 MG TAB PO SCH (08:23)
[2017-09-19] MEDS: LEVOTHYROXINE 50 MCG TAB PO SCH (08:23)
[2017-09-19] MEDS: PREGABALIN 100 MG CAP PO SCH ×3 (08:23→22:08)
[2017-09-19] MEDS: BISACODYL 5 MG TABLET.DR PO SCH (08:41)
[2017-09-19 10:48] VITALS: BMI 35.4
[2017-09-19 10:58] LABS: Large Platelets Present
[2017-09-19 12:11] LABS: Glucose,Whole Blood 198 mg/dL (75-99)
--- NOTE | 2017-09-19 13:26 | P.PN ---
Subjective Progress Note Date: 09/19/17 Huong Cooper is a 61-year-old female with a history of multiple sclerosis who presented to [facility] emergency department for a chief complaint of bilateral numbness and weakness. Patient states this is similar to her previous flareups for multiple sclerosis. Patient states that this started happening about a week ago. Patient denies chest pain, shortness of breath, or abdominal pain. Patient is currently not in pain but is uncomfortable with the numb feeling. Patient has a history of stroke 10 years ago. She has residual right-sided weakness and speech impairments. Her helped with answering questions because of the speech impairments. No new weakness is noted. 09/14/2017 patient states she is showing improvement with the steroids. She has no new complaints. The IV Solu-Medrol will be increased to every 8 hours. She is currently receiving steroids daily. 09/15/2017 patient showing some improvement with the IV steroids. Still complaining of some weakness and pain. No other new complaints. MRI of the brain shows a single focus increased signal in the right parietal lobe white matter of uncertain significance. Large old left middle cerebral artery distribution infarct. No adverse change compared to old exam. Neurology has reviewed MRI results 09/18/2017 patient is showing improvement in her weakness. She has 1 more day of the IV steroids to complete treatment for her MS exacerbation. Consult for Dr. Abdul for possible inpatient rehab. Neurology following. Cervical spine MRI completed showing a vague increase in signal at the C-spine at C2 to C3 and C3 to C4. Demyelination difficult to exclude 09/19/2017 patient does not feel ready for discharge. She is completing her last day of IV steroids. Seen by Dr. Giles not a candidate for inpatient rehab. She has been seen by physical therapy and they have cleared her for discharge home. Patient still having some pain and weakness in complaining of headache Objective - Vital Signs Vital signs: Vital Signs Temp 97.9 F 09/19/17 07:00 Pulse 55 L 09/19/17 08:00 Resp 18 09/19/17 08:00 BP 123/69 09/19/17 07:00 Pulse Ox 92 L 09/19/17 07:00 Intake & Output 09/18/17 09/19/17 09/19/17 18:59 06:59 18:59 Intake Total 100 800 240 Balance 100 800 240 Weight 96.615 kg Intake: IV 100 methylPREDNISolone SOD 100 SUCCI 250 mg In Sodium Chloride 0.9% 100 ml @ 100 mls/hr IVPB Q6HR [facility] Rx#:[id number] Oral 800 240 Other: Voiding Method Toilet Toilet Toilet # Voids 1 1 - Exam Head normocephalic Neck supple Lungs clear to auscultation bilaterally no wheezing or crackles Heart regular rate and rhythm S1-S2, no rub or gallop Abdomen is soft nontender nondistended positive bowel sounds no hepatosplenomegaly Extremities no edema Neuro alert and orientated to 3. Expressive aphasia which is chronic. Patient is able to follow simple commands. Hypersensitivity to touch. Generalized bilateral weakness involving both lower extremities. Strength show improvement - Labs CBC & Chem 7: 09/19/17 07:01 09/19/17 07:01 Labs: Abnormal Lab Results - Last 24 Hours (Table) 09/18/17 09/18/17 09/19/17 Range/Units 17:29 20:15 07:01 Plt Count 79 L (150-450) k/uL Lymphocytes # 0.4 L (1.0-4.8) k/uL PT (9.0-12.0) sec INR (<1.2) Carbon Dioxide (22-30) mmol/L BUN (7-17) mg/dL Glucose (74-99) mg/dL POC Glucose (mg/dL) 218 H 295 H (75-99) mg/dL AST (14-36) U/L Total Protein (6.3-8.2) g/dL Albumin (3.5-5.0) g/dL 09/19/17 09/19/17 09/19/17 Range/Units 07:01 07:01 07:42 Plt Count (150-450) k/uL Lymphocytes # (1.0-4.8) k/uL PT 31.0 H (9.0-12.0) sec INR 3.5 H (<1.2) Carbon Dioxide 33 H (22-30) mmol/L BUN 30 H (7-17) mg/dL Glucose 153 H (74-99) mg/dL POC Glucose (mg/dL) 163 H (75-99) mg/dL AST 12 L (14-36) U/L Total Protein 5.1 L (6.3-8.2) g/dL Albumin 3.1 L (3.5-5.0) g/dL 09/19/17 Range/Units 11:29 Plt Count (150-450) k/uL Lymphocytes # (1.0-4.8) k/uL PT (9.0-12.0) sec INR (<1.2) Carbon Dioxide (22-30) mmol/L BUN (7-17) mg/dL Glucose (74-99) mg/dL POC Glucose (mg/dL) 198 H (75-99) mg/dL AST (14-36) U/L Total Protein (6.3-8.2) g/dL Albumin (3.5-5.0) g/dL Assessment and Plan Assessment: #1 Acute exacerbation of multiple sclerosis: IV Solu-Medrol adjusted per neurology to 250 mg IV every 6 hours. Neurology following. Today's last day of IV Solu-Medrol. #2 previous history of DVT and PE patient maintained on Coumadin. Continue to monitor daily PT/INR. INR elevated at 3.5. No Coumadin tonight. Repeat PT/ INR in a.m. #3 underlying history of hypothyroidism maintained on Synthroid will continue #4 borderline diabetes mellitus. Will cover with insulin sliding scale while on steroids. A1c is 5.9 #5 underlying history of sleep apnea maintained on CPAP #6 underlying history of hyperlipidemia maintained on Pravachol Patient seen by Dr. Giles and physical therapy. She is not a candidate for inpatient rehab or ECF placement Anticipating discharge possibly tomorrow with home care I performed an examination of the patient and discussed their management with the physician Transport Coordinator. I have reviewed the Physician Transport Coordinator's notes and agree with the documented findings and plan of care
[2017-09-19 17:28] LABS: Glucose,Whole Blood 154 mg/dL (75-99)
[2017-09-19 20:35] LABS: Glucose,Whole Blood 274 mg/dL (75-99)
[2017-09-19] MEDS: INSULIN DETEMIR 100 UNIT/ML 10 ML VIAL SQ SCH (22:08)
[2017-09-19] MEDS: CITALOPRAM HYDROBROMIDE 20 MG TAB PO SCH (22:09)
[2017-09-19] MEDS: PRAVASTATIN SODIUM 20 MG TAB PO SCH (22:09)
[2017-09-20] MEDS: methylPREDNISolone SOD SUCCI 250 MG in SODIUM CHLORIDE 0.9% 100 ML IVPB SCH ×4 (06:12→23:35)
[2017-09-20 07:02] LABS: Glucose,Whole Blood 191 mg/dL (75-99)
[2017-09-20 08:13] LABS: Basophils % (A) 0 %; Eosinophils % (A) 0 %; HCT 38.8 % (34.0-46.0); HGB 13.2 gm/dL (11.4-16.0); Lymphocytes # (A) 0.4 k/uL (1.0-4.8); Lymphocytes % (A) 6 %; MCH 29.9 pg (25.0-35.0); MCHC 34.2 g/dL (31.0-37.0); MCV 87.6 fL (80.0-100.0); Mean Platelet Volume 12.5; Monocytes # (A) 0.2 k/uL (0-1.0); Monocytes % (A) 3 %; Neutrophils # (A) 5.6 k/uL (1.3-7.7); Neutrophils % (A) 90 %; Platelet Count 76 k/uL (150-450); RBC 4.43 m/uL (3.80-5.40); RDW 13.5 % (11.5-15.5); WBC 6.3 k/uL (3.8-10.6)
[2017-09-20 08:20] LABS: INR 2.5 (<1.2); Prothrombin Time 22.3 sec (9.0-12.0)
[2017-09-20 08:37] LABS: Calcium 8.3 mg/dL (8.4-10.2); Potassium 3.8 mmol/L (3.5-5.1); Total Bilirubin 0.7 mg/dL (0.2-1.3); Total Protein 5.1 g/dL (6.3-8.2)
[2017-09-20] MEDS: INSULIN ASPART 100 UNIT/ML 1 ML 10 ML VIAL SQ SCH ×4 (09:37→21:29)
[2017-09-20] MEDS: CHOLECALCIFEROL 1,000 UNIT TAB PO SCH (09:56)
[2017-09-20] MEDS: FUROSEMIDE 40 MG TAB PO SCH ×2 (09:56→21:31)
[2017-09-20] MEDS: BACLOFEN 10 MG TAB PO SCH (09:57)
[2017-09-20] MEDS: ASPIRIN 81 MG PO SCH (09:57)
[2017-09-20] MEDS: MONTELUKAST 10 MG TAB PO SCH (09:57)
[2017-09-20] MEDS: LEVOTHYROXINE 50 MCG TAB PO SCH (09:57)
[2017-09-20] MEDS: POTASSIUM CHLORIDE ER 20 MEQ TAB.ER PO SCH ×2 (09:57→21:31)
[2017-09-20] MEDS: FERROUS SULFATE 325 MG TAB PO SCH (09:57)
[2017-09-20] MEDS: LORATADINE 10 MG TAB PO SCH (09:57)
[2017-09-20] MEDS: PANTOPRAZOLE 40 MG TABLET PO SCH (09:57)
[2017-09-20] MEDS: FOLIC ACID 1 MG TAB PO SCH (09:58)
[2017-09-20] MEDS: Dimethyl Fumarate [Tecfidera] 240 MG PO SCH ×2 (09:58→21:30)
[2017-09-20] MEDS: BISACODYL 5 MG TABLET.DR PO SCH (09:58)
[2017-09-20] MEDS: NYSTATIN 100,000 UNIT/GM POWD 15 GM TOPICAL SCH ×2 (10:02→21:34)
[2017-09-20] MEDS: METHYLPHENIDATE HCL 10 MG TAB PO SCH (10:06)
[2017-09-20] MEDS: PREGABALIN 100 MG CAP PO SCH ×3 (10:06→21:29)
[2017-09-20 10:54] LABS: Anisocytosis (M) Present; Large Platelets Present
[2017-09-20 11:29] LABS: Glucose,Whole Blood 241 mg/dL (75-99)
[2017-09-20 16:56] LABS: Glucose,Whole Blood 172 mg/dL (75-99)
--- NOTE | 2017-09-20 16:59 | P.PN ---
Subjective Progress Note Date: 09/20/17 Huong Cooper is a 61-year-old female with a history of multiple sclerosis who presented to [facility] emergency department for a chief complaint of bilateral numbness and weakness. Patient states this is similar to her previous flareups for multiple sclerosis. Patient states that this started happening about a week ago. Patient denies chest pain, shortness of breath, or abdominal pain. Patient is currently not in pain but is uncomfortable with the numb feeling. Patient has a history of stroke 10 years ago. She has residual right-sided weakness and speech impairments. Her helped with answering questions because of the speech impairments. No new weakness is noted. 09/14/2017 patient states she is showing improvement with the steroids. She has no new complaints. The IV Solu-Medrol will be increased to every 8 hours. She is currently receiving steroids daily. 09/15/2017 patient showing some improvement with the IV steroids. Still complaining of some weakness and pain. No other new complaints. MRI of the brain shows a single focus increased signal in the right parietal lobe white matter of uncertain significance. Large old left middle cerebral artery distribution infarct. No adverse change compared to old exam. Neurology has reviewed MRI results 09/18/2017 patient is showing improvement in her weakness. She has 1 more day of the IV steroids to complete treatment for her MS exacerbation. Consult for Dr. Abdul for possible inpatient rehab. Neurology following. Cervical spine MRI completed showing a vague increase in signal at the C-spine at C2 to C3 and C3 to C4. Demyelination difficult to exclude On 09/20/2017 Pattient is alert and oriented she is showing improvement in her weakness. She completed IV steroid treatment for her MS exacerbation. . Neurology following. Cervical spine MRI completed showing a vague increase in signal at the C-spine at C2 to C3 and C3 to C4. Demyelination difficult to exclude, patient is still very weak able to walk on the few steps she does not want to go to a senior living, she was not accepted at [facility] rehab. Objective - Vital Signs Vital signs: Vital Signs Temp 97.3 F L 09/20/17 07:00 Pulse 60 09/20/17 07:00 Resp 16 09/20/17 07:00 BP 136/64 09/20/17 07:00 Pulse Ox 93 L 09/20/17 07:00 Intake & Output 09/19/17 09/20/17 09/20/17 18:59 06:59 18:59 Intake Total 240 1350 200 Balance 240 1350 200 Weight 96.615 kg Intake: IV 200 methylPREDNISolone SOD 200 SUCCI 250 mg In Sodium Chloride 0.9% 100 ml @ 100 mls/hr IVPB Q6HR [facility] Rx#:[id number] Oral 240 1350 Other: Voiding Method Toilet Toilet Toilet # Voids 1 2 - Exam Head normocephalic and atraumatic Neck supple, no JVD no goiter no lymphadenopathy Lungs clear to auscultation bilaterally no wheezing or crackles Heart regular rate and rhythm S1-S2, no rub or gallop Abdomen is soft nontender nondistended positive bowel sounds no hepatosplenomegaly Extremities no edema Neuro alert and orientated to 3. Expressive aphasia which is chronic. Patient is able to follow simple commands. Hypersensitivity to touch. Generalized bilateral weakness involving both lower extremities. Strength show improvement - Labs CBC & Chem 7: 09/20/17 07:23 09/20/17 07:23 Labs: Abnormal Lab Results - Last 24 Hours (Table) 09/19/17 09/19/17 09/20/17 Range/Units 17:26 20:33 07:00 Plt Count (150-450) k/uL Lymphocytes # (1.0-4.8) k/uL PT (9.0-12.0) sec INR (<1.2) Carbon Dioxide (22-30) mmol/L BUN (7-17) mg/dL Glucose (74-99) mg/dL POC Glucose (mg/dL) 154 H 274 H 191 H (75-99) mg/dL Calcium (8.4-10.2) mg/dL AST (14-36) U/L Total Protein (6.3-8.2) g/dL Albumin (3.5-5.0) g/dL 09/20/17 09/20/17 09/20/17 Range/Units 07:23 07:23 07:23 Plt Count 76 L (150-450) k/uL Lymphocytes # 0.4 L (1.0-4.8) k/uL PT 22.3 H (9.0-12.0) sec INR 2.5 H (<1.2) Carbon Dioxide 32 H (22-30) mmol/L BUN 33 H (7-17) mg/dL Glucose 170 H (74-99) mg/dL POC Glucose (mg/dL) (75-99) mg/dL Calcium 8.3 L (8.4-10.2) mg/dL AST 13 L (14-36) U/L Total Protein 5.1 L (6.3-8.2) g/dL Albumin 3.0 L (3.5-5.0) g/dL 09/20/17 Range/Units 11:26 Plt Count (150-450) k/uL Lymphocytes # (1.0-4.8) k/uL PT (9.0-12.0) sec INR (<1.2) Carbon Dioxide (22-30) mmol/L BUN (7-17) mg/dL Glucose (74-99) mg/dL POC Glucose (mg/dL) 241 H (75-99) mg/dL Calcium (8.4-10.2) mg/dL AST (14-36) U/L Total Protein (6.3-8.2) g/dL Albumin (3.5-5.0) g/dL Assessment and Plan Plan: #1 Acute exacerbation of multiple sclerosis patient is admitted to medical floor she was started on IV Solu-Medrol 250 mg every 8 hours neurology consultation was requested #2 previous history of DVT and PE patient maintained on Coumadin INR on presentation 1.9 will continue Will check INR daily #3 underlying history of hypothyroidism maintained on Synthroid will continue #4 borderline diabetes mellitus hemoglobin A1c 5.9 Will cover with insulin sliding scale while on steroids #5 underlying history of sleep apnea maintained on CPAP #5 underlying history of hyperlipidemia maintained on Pravachol For DVT prophylaxis patient is on Coumadin for GI prophylaxis patient is on Protonix Patient was not accepted at [facility] per Dr. Giles She does not want to go to a senior living but she is still too weak to go home Possible discharge to home with home care tomorrow
[2017-09-20 20:04] LABS: Glucose,Whole Blood 276 mg/dL (75-99)
[2017-09-20] MEDS: INSULIN DETEMIR 100 UNIT/ML 10 ML VIAL SQ SCH (21:29)
[2017-09-20] MEDS: CITALOPRAM HYDROBROMIDE 20 MG TAB PO SCH (21:31)
[2017-09-20] MEDS: PRAVASTATIN SODIUM 20 MG TAB PO SCH (21:31)
[2017-09-21] MEDS: methylPREDNISolone SOD SUCCI 250 MG in SODIUM CHLORIDE 0.9% 100 ML IVPB SCH ×2 (05:12→12:14)
[2017-09-21 06:57] LABS: Glucose,Whole Blood 163 mg/dL (75-99)
[2017-09-21 07:30] LABS: Basophils % (A) 0 %; Eosinophils % (A) 1 %; HCT 39.3 % (34.0-46.0); HGB 13.7 gm/dL (11.4-16.0); Lymphocytes # (A) 0.4 k/uL (1.0-4.8); Lymphocytes % (A) 7 %; MCH 30.3 pg (25.0-35.0); MCHC 34.9 g/dL (31.0-37.0); MCV 86.8 fL (80.0-100.0); Mean Platelet Volume 10.5; Monocytes # (A) 0.1 k/uL (0-1.0); Monocytes % (A) 2 %; Neutrophils # (A) 4.8 k/uL (1.3-7.7); Neutrophils % (A) 89 %; RBC 4.53 m/uL (3.80-5.40); RDW 13.7 % (11.5-15.5); WBC 5.4 k/uL (3.8-10.6)
[2017-09-21 07:40] LABS: INR 1.9 (<1.2)
[2017-09-21 07:50] LABS: Platelet Count 78 k/uL (150-450)
[2017-09-21] MEDS: INSULIN ASPART 100 UNIT/ML 1 ML 10 ML VIAL SQ SCH ×2 (07:52→12:48)
[2017-09-21] MEDS: PREGABALIN 100 MG CAP PO SCH (07:53)
[2017-09-21] MEDS: METHYLPHENIDATE HCL 10 MG TAB PO SCH ×2 (07:53→12:47)
[2017-09-21] MEDS: MONTELUKAST 10 MG TAB PO SCH (07:54)
[2017-09-21] MEDS: FERROUS SULFATE 325 MG TAB PO SCH (07:54)
[2017-09-21] MEDS: Dimethyl Fumarate [Tecfidera] 240 MG PO SCH (07:54)
[2017-09-21] MEDS: POTASSIUM CHLORIDE ER 20 MEQ TAB.ER PO SCH (07:55)
[2017-09-21] MEDS: FUROSEMIDE 40 MG TAB PO SCH (07:55)
[2017-09-21] MEDS: PANTOPRAZOLE 40 MG TABLET PO SCH (07:56)
[2017-09-21] MEDS: ASPIRIN 81 MG PO SCH (07:56)
[2017-09-21] MEDS: BACLOFEN 10 MG TAB PO SCH (07:56)
[2017-09-21] MEDS: LEVOTHYROXINE 50 MCG TAB PO SCH (07:56)
[2017-09-21] MEDS: LORATADINE 10 MG TAB PO SCH (07:56)
[2017-09-21] MEDS: FOLIC ACID 1 MG TAB PO SCH (07:57)
[2017-09-21] MEDS: BISACODYL 5 MG TABLET.DR PO SCH (07:57)
[2017-09-21] MEDS: CHOLECALCIFEROL 1,000 UNIT TAB PO SCH (07:57)
[2017-09-21] MEDS: NYSTATIN 100,000 UNIT/GM POWD 15 GM TOPICAL SCH (07:57)
[2017-09-21 08:00] LABS: Albumin 2.9 g/dL (3.5-5.0); Calcium 8.1 mg/dL (8.4-10.2); Potassium 3.8 mmol/L (3.5-5.1); Total Bilirubin 0.7 mg/dL (0.2-1.3)
[2017-09-21 08:36] VITALS: BP 113/57; PULSE 65; RESP 18; TEMP 97.5
[2017-09-21 11:08] LABS: Glucose,Whole Blood 225 mg/dL (75-99)
--- NOTE | 2017-09-21 13:32 | P.DS ---
Providers Date of admission: 09/12/17 18:30 Expected date of discharge: 09/21/17 Attending physician: Sarah Paredes Consults: 09/13/17 17:44 Consult Physician Routine Consulting Provider: Yolanda Elizabeth Consult Reason/Comments: multiple sclerosis Do you want consulting provider notified?: Yes 09/18/17 15:17 Consult Physician Routine Consulting Provider: Aaron Abdul Consult Reason/Comments: inpatient rehab Do you want consulting provider notified?: Yes Primary care physician: Sarah Lena [facility] Course: Discharge diagnosis #1 Acute exacerbation of multiple sclerosis: Patient completed treatment of IV Solu-Medrol #2 previous history of DVT and PE patient maintained on Coumadin. #3 underlying history of hypothyroidism maintained on Synthroid will continue #4 borderline diabetes mellitus. A1c is 5.9 elevated blood sugars secondary to steroids. We will need to reevaluate A1c and fasting blood sugar in office #5 underlying history of sleep apnea maintained on CPAP #6 underlying history of hyperlipidemia maintained on Pravachol Hospital course Huong Cooper is a 61-year-old female with a history of multiple sclerosis who presented to [facility] emergency department for a chief complaint of bilateral numbness and weakness. Patient states this is similar to her previous flareups for multiple sclerosis. Patient states that this started happening about a week ago. Patient denies chest pain, shortness of breath, or abdominal pain. Patient is currently not in pain but is uncomfortable with the numb feeling. Patient has a history of stroke 10 years ago. She has residual right-sided weakness and speech impairments. Her helped with answering questions because of the speech impairments. No new weakness is noted. Patient was started on high dose of IV Solu-Medrol for her MS exacerbation. She was seen evaluated by neurology. Cervical spine MRI completed showing a vague increase in signal at the C-spine at C2 to C3 and C3 to C4. Demyelination difficult to exclude. Patient for follow-up with neurology in the outpatient setting. She did have improvement in her symptoms. Patient wasn't seen by Dr. Giles is not a candidate for inpatient rehab. Also evaluated by a physical therapist and she has returned to baseline function. Patient will return home with home care. Patient is medically stable for discharge. Please refer to chart for any further details. I performed an examination of the patient and discussed their management with the physician Filter Plant Supervisor. I have reviewed the Physician Filter Plant Supervisor's notes and agree with the documented findings and plan of care Patient Condition at Discharge: Stable Plan - Discharge Summary Discharge Rx Participant: No New Discharge Prescriptions: Continue Baclofen [Lioresal] 10 mg PO DAILY Aspirin 81 mg PO DAILY Montelukast [Singulair] 10 mg PO DAILY Furosemide [Lasix] 40 mg PO BID Potassium Chloride [Potassium Chloride ER] 20 meq PO BID Citalopram Hydrobromide [CeleXA] 40 mg PO HS Nitroglycerin Sl Tabs [Nitrostat] 0.4 mg SUBLINGUAL Q5M PRN PRN Reason: Chest Pain Pantoprazole Sodium [Protonix] 40 mg PO DAILY Ferrous Sulfate [Feosol] 325 mg PO DAILY Fexofenadine HCl [Mimi Allergy] 180 mg PO DAILY Dimethyl Fumarate [Tecfidera] 240 mg PO BID Cholecalciferol [Vitamin D3] 2,000 unit PO DAILY Pravastatin Sodium [Pravachol] 20 mg PO HS Methylphenidate HCl [Ritalin] 20 mg PO BID Fluticasone Nasal [place] [Flonase Nasal [place]] 1 spray EA NOSTRIL DAILY fentaNYL [Fentanyl] 25 mcg TRANSDERM Q72H Warfarin Sodium 5 mg PO MO@1700 Warfarin [Coumadin] 7.5 mg PO SUTUWETHFRSA@1700 Pregabalin [Lyrica] 100 mg PO TID HYDROcodone/APAP 5-325MG [[employer] 5-325] 1 tab PO Q6HR PRN PRN Reason: Moderate To Severe Pain Folic Acid 0.4 mg PO DAILY Biotin 10,000 mcg PO DAILY Nystatin 100,000 Unit/gm Powd [Mycostatin Powder] 1 applic TOPICAL BID Levothyroxine Sodium [Synthroid] 50 mcg PO DAILY Isosorbide Mononitrate ER [Imdur] 30 mg PO DAILY Cyanocobalamin/Folic AC/Vit B6 [Fabb Tablet] 1 tab PO DAILY Bisacodyl 10 mg PO DAILY Discharge Medication List Aspirin 81 mg PO DAILY 11/08/13 [History] Baclofen [Lioresal] 10 mg PO DAILY 11/08/13 [History] Citalopram Hydrobromide [CeleXA] 40 mg PO HS 11/08/13 [History] Ferrous Sulfate [Feosol] 325 mg PO DAILY 11/08/13 [History] Fexofenadine HCl [Mimi Allergy] 180 mg PO DAILY 11/08/13 [History] Furosemide [Lasix] 40 mg PO BID 11/08/13 [History] Montelukast [Singulair] 10 mg PO DAILY 11/08/13 [History] Nitroglycerin Sl Tabs [Nitrostat] 0.4 mg SUBLINGUAL Q5M PRN 11/08/13 [History] Pantoprazole Sodium [Protonix] 40 mg PO DAILY 11/08/13 [History] Potassium Chloride [Potassium Chloride ER] 20 meq PO BID 11/08/13 [History] Cholecalciferol [Vitamin D3] 2,000 unit PO DAILY 11/18/15 [History] Dimethyl Fumarate [Tecfidera] 240 mg PO BID 11/18/15 [History] Fluticasone Nasal [place] [Flonase Nasal [place]] 1 spray EA NOSTRIL DAILY 11/18/15 [History] Methylphenidate HCl [Ritalin] 20 mg PO BID 11/18/15 [History] Pravastatin Sodium [Pravachol] 20 mg PO HS 11/18/15 [History] Warfarin Sodium 5 mg PO MO@1700 11/18/15 [History] Warfarin [Coumadin] 7.5 mg PO SUTUWETHFRSA@1700 11/18/15 [History] fentaNYL [Fentanyl] 25 mcg TRANSDERM Q72H 11/18/15 [History] HYDROcodone/APAP 5-325MG [[employer] 5-325] 1 tab PO Q6HR PRN 07/13/16 [History] Pregabalin [Lyrica] 100 mg PO TID 07/13/16 [History] Folic Acid 0.4 mg PO DAILY 08/18/16 [History] Biotin 10,000 mcg PO DAILY 07/06/17 [History] Bisacodyl 10 mg PO DAILY 09/12/17 [History] Cyanocobalamin/Folic AC/Vit B6 [Fabb Tablet] 1 tab PO DAILY 09/12/17 [History] Isosorbide Mononitrate ER [Imdur] 30 mg PO DAILY 09/12/17 [History] Levothyroxine Sodium [Synthroid] 50 mcg PO DAILY 09/12/17 [History] Nystatin 100,000 Unit/gm Powd [Mycostatin Powder] 1 applic TOPICAL BID 09/12/17 [History] Follow up Appointment(s)/Referral(s): [facility] Visiting Nurse, [NON-STAFF] - 1 Week Sarah Paredes MD [Primary Care Provider] - 1 Week Yolanda Elizabeth MD [STAFF PHYSICIAN] - 1 Week Activity/Diet/Wound Care/Special Instructions: sonidojose mariarashaad crum - Diet: cardiac Activity: as tolerated Discharge Disposition: HOME WITH HOME HEALTH SERVICES
== END 2017-09-21 15:45 | disposition home health service (06) | DRG 59 ==
LOC: EC 14:10 → 4MS4W 18:30 → 5MS5E 09-13 12:06
PROVIDERS: ADMIT Internal Medicine; ATTEND Internal Medicine
DX: G35 Multiple sclerosis (principal); I69.351 Hemiplegia and hemiparesis following cerebral infarction affecting right dominant side; I69.321 Dysphasia following cerebral infarction; I69.320 Aphasia following cerebral infarction; R40.2362 Coma scale, best motor response, obeys commands, at arrival to emergency department; R40.2142 Coma scale, eyes open, spontaneous, at arrival to emergency department; R40.2252 Coma scale, best verbal response, oriented, at arrival to emergency department; R73.9 Hyperglycemia, unspecified; T38.0X5A Adverse effect of glucocorticoids and synthetic analogues, initial encounter; E03.9 Hypothyroidism, unspecified; G47.30 Sleep apnea, unspecified; M19.91 Primary osteoarthritis, unspecified site; G89.29 Other chronic pain; M54.9 Dorsalgia, unspecified; E78.5 Hyperlipidemia, unspecified; R73.03 Prediabetes; M79.7 Fibromyalgia; G43.909 Migraine, unspecified, not intractable, without status migrainosus; Z79.82 Long term (current) use of aspirin; Z79.890 Hormone replacement therapy; Z79.51 Long term (current) use of inhaled steroids; Z79.899 Other long term (current) drug therapy; Z79.01 Long term (current) use of anticoagulants; Z86.711 Personal history of pulmonary embolism; Z86.718 Personal history of other venous thrombosis and embolism; Z90.49 Acquired absence of other specified parts of digestive tract; Z86.19 Personal history of other infectious and parasitic diseases; Z90.710 Acquired absence of both cervix and uterus; Z91.048 Other nonmedicinal substance allergy status
CPT/HCPCS: 36415; 70553; 72156; 80048; 80053; 82306; 83036; 85025; 85610; 96361; 96365; 96366; 99285

== ENCOUNTER → 2017-10-13 | Outpatient (CLI) | payer MEDICARE | END | disposition home or self-care (01) | LOC: LABWHC1 15:05 | PROVIDERS: ATTEND Nurse Practitioner Acute Care | DX: G35 Multiple sclerosis (principal) | CPT/HCPCS: 36415 ==

== ENCOUNTER 2017-11-10 15:19 | Emergency (ER) | payer MEDICARE ==
[2017-11-10 15:26] VITALS: RESP 18
--- NOTE | 2017-11-10 15:43 | ED ---
Extremity Problem HPI - General Chief complaint: Extremity Problem,Nontraumatic Stated complaint: Foot pain Time Seen by Provider: 11/10/17 15:28 Source: patient, family Mode of arrival: wheelchair Limitations: physical limitation - History of Present Illness Initial comments: Patient complains of pain and swelling to the top of the right foot. She takes Coumadin. She has some bruising there. She has no numbness or tingling in the toes. She has no weakness. She has no trouble walking. She does take chronic pain medication for her back. She has no loss of bowel or bladder continence, denies urinary retention. She denies any head injury or other injuries. - Related Data Home Medications Medication Instructions Recorded Confirmed Aspirin 81 mg PO DAILY 11/08/13 11/10/17 Baclofen [Lioresal] 10 mg PO DAILY 11/08/13 11/10/17 Citalopram Hydrobromide [CeleXA] 40 mg PO HS 11/08/13 11/10/17 Ferrous Sulfate [Feosol] 325 mg PO DAILY 11/08/13 11/10/17 Fexofenadine HCl [Mimi Allergy] 180 mg PO HS 11/08/13 11/10/17 Furosemide [Lasix] 40 mg PO BID 11/08/13 11/10/17 Montelukast [Singulair] 10 mg PO DAILY 11/08/13 11/10/17 Nitroglycerin Sl Tabs [Nitrostat] 0.4 mg SUBLINGUAL Q5M PRN 11/08/13 11/10/17 Pantoprazole Sodium [Protonix] 40 mg PO DAILY 11/08/13 11/10/17 Potassium Chloride [Potassium 20 meq PO BID 11/08/13 11/10/17 Chloride ER] Cholecalciferol [Vitamin D3] 2,000 unit PO DAILY 11/18/15 11/10/17 Dimethyl Fumarate [Tecfidera] 240 mg PO BID 11/18/15 11/10/17 Fluticasone Nasal [place] [Flonase 1 spray EA NOSTRIL DAILY 11/18/15 11/10/17 Nasal [place]] Methylphenidate HCl [Ritalin] 20 mg PO QAM 11/18/15 11/10/17 Pravastatin Sodium [Pravachol] 20 mg PO HS 11/18/15 11/10/17 Warfarin Sodium 5 mg PO MO@1700 11/18/15 11/10/17 Warfarin [Coumadin] 7.5 mg PO SUTUWETHFRSA@1700 11/18/15 11/10/17 fentaNYL [Fentanyl] 25 mcg TRANSDERM Q72H 11/18/15 11/10/17 HYDROcodone/APAP 5-325MG [[place] 1 tab PO Q6HR PRN 07/13/16 11/10/17 5-325] Pregabalin [Lyrica] 100 mg PO TID 07/13/16 11/10/17 Folic Acid 0.4 mg PO DAILY 08/18/16 11/10/17 Biotin 10,000 mcg PO BID 07/06/17 11/10/17 Levothyroxine Sodium [Synthroid] 50 mcg PO DAILY 09/12/17 11/10/17 Previous Rx's Medication Instructions Recorded Cephalexin [Keflex] 500 mg PO QID #40 capsule 11/10/17 Allergies Allergy/AdvReac Type Severity Reaction Status Date / Time adhesive Allergy SKIN Verified 11/10/17 15:43 PEELING Review of Systems ROS Statement: Those systems with pertinent positive or pertinent negative responses have been documented in the HPI. ROS Other: All systems not noted in ROS Statement are negative. Past Medical History Past Medical History: Chest Pain / Angina, CVA/TIA, Fibromyalgia, Musculoskeletal Disorder, Neurologic Disorder, Osteoarthritis (OA), Pulmonary Embolus (PE), Sleep Apnea/CPAP/BIPAP, Thyroid Disorder Additional Past Medical History / Comment(s): MULTIPLE SCLEROSIS, HX OF CVA 2006 WITH R SIDED WEAKNESS AND DYSPHASIA-MUCH IMPROVED, MIGRAINES, SLEEP APNEA( HAS C-PAP MACHINE BUT DOES NOT USE) ABD HERNIA,CHRONIC PAIN ESPECIALLY ON R SIDE OF BODY AND LOW BACK . PAINFUL FOR HER TO LIE FLAT. HX OF NOSEBLEED JUL 2014 AND RECEIVED PLASMA TRANSFUSION. takes pills with applesauce. History of Any Multi-Drug Resistant Organisms: VRE Date of last positivie culture/infection: 10/24/09 confirmed with infectious disease nurse on 08/18/16. MDRO Source:: URINE Past Surgical History: Appendectomy, Cholecystectomy, Hysterectomy Additional Past Surgical History / Comment(s): Incisional hernia repair, laparoscopic lysis of adhesions in 1987, ganglion cyst removal of the left wrist , patent foramen ovale patch in 2006, RF ablation for back pain. Past Anesthesia/Blood Transfusion Reactions: No Reported Reaction Past Psychological History: No Psychological Hx Reported, Depression Smoking Status: Never smoker Past Alcohol Use History: None Reported Past Drug Use History: None Reported - Past Family History Mother Family Medical History: Hypertension Additional Family Medical History / Comment(s): osteoporosis Father Family Medical History: Dementia General Exam Limitations: physical limitation General appearance: alert, in no apparent distress Head exam: Present: atraumatic Eye exam: Present: normal appearance ENT exam: Present: normal exam Neck exam: Present: normal inspection Respiratory exam: Absent: respiratory distress Cardiovascular Exam: Present: other (Normal peripheral perfusion) Extremities exam: Present: normal inspection, full ROM Back exam: Present: normal inspection Neurological exam: Present: alert, oriented X3 Psychiatric exam: Present: normal affect Skin exam: Present: other (Bruising on the top of the right foot) Course Vital Signs 11/10/17 15:22 Temperature 97.0 F L Pulse Rate 67 Respiratory 18 Rate Blood Pressure 117/60 O2 Sat by Pulse 98 Oximetry Medical Decision Making - Medical Decision Making Patient presented with pain and bruising on the top of her right foot. I obtained x-ray and CT, the and results which demonstrates no evidence of fracture or osteomyelitis. Patient has no calf pain or swelling to suggest a DVT. She has normal pulses and normal capillary refill. There is no evidence of arterial insufficiency. I think likely the patient bumped her foot, and sustained a small hematoma. I cannot find any evidence of any acute emergency condition. Her foot is soft, there is no evidence of any type of compartment syndrome. I don't see an indication for admission or any evidence of any acute emergency again. I am concerned this could be a nidus for infection, so I started her on Keflex. I charted her to follow-up with her primary care doctor in podiatry within 2 days and to return to the emergency department immediately if her symptoms worsen or if she develops any other problems or complaints. - Lab Data Lab Results 11/10/17 Range/Units 15:45 PT 13.5 H (9.0-12.0) sec INR 1.4 H (<1.2) Disposition Clinical Impression: Hematoma, Foot pain, right Disposition: HOME SELF-CARE Condition: Good Instructions: Hematoma (ED) Prescriptions: Cephalexin [Keflex] 500 mg PO QID #40 capsule Is patient prescribed a controlled substance at d/c from ED?: No Referrals: Sarah Paredes MD [Primary Care Provider] - 1-2 days Hernán Skinner MD [Medical Doctor] - 1-2 days
--- NOTE | 2017-11-10 16:05 | XR ---
EXAMINATION TYPE: XR foot complete RT DATE OF EXAM: 11/10/2017 CLINICAL HISTORY: Pain, swelling, and bruising from the right 3rd-5th metatarsals with no known injur y. TECHNIQUE: Frontal, lateral, and oblique images of the right foot are obtained. COMPARISON: None FINDINGS: There is mild diffuse osseous demineralization. There is no acute fracture/dislocation evid ent in the right foot. Minimal degenerative change of the distal interphalangeal joints, first metata rsal phalangeal joint, and first tarsometatarsal joint are demonstrated as joint space narrowing, scl erosis and small marginal osseous phase. Small plantar heel spurs/enthesophyte is seen. Focal soft ti ssue swelling is seen dorsally over the metatarsals. Periosteal reaction is noted around the proximal second metatarsal. This could relate to stress fracture or less likely neoplasm. IMPRESSION: 1. Focal periosteal reaction surrounding the proximal second metatarsal with diffuse overlying soft t issue swelling of the dorsum of the right mid to forefoot. Considerations are for stress fracture or less likely osseous neoplasm. MR could be performed for evaluation of bone marrow or soft tissue comp onent. 2. Mild midfoot and forefoot degenerative change.
[2017-11-10 16:09] LABS: INR 1.4 (<1.2); Prothrombin Time 13.5 sec (9.0-12.0)
--- NOTE | 2017-11-10 17:51 | CT ---
EXAMINATION TYPE: CT lower extremity RT wo con DATE OF EXAM: 11/10/2017 COMPARISON: NONE HISTORY: Bruising to the top of the foot. Patient denies injury. CT DLP: 256 mGycm Automated exposure control for dose reduction was used. FINDINGS: The metatarsals show no displaced fracture. There is slight thickening of the proximal shaft of the s econd metatarsal that could relate to an old injury. There is subcutaneous edema around the forefoot. The subtalar joint is intact. There is mild spurring at the anterior talonavicular joint. The toes a ppear intact. There is some narrowing and spurring at the first MP joint. IMPRESSION: NO FRACTURE SEEN. SLIGHT THICKENING OF THE SECOND METATARSAL COULD RELATE TO AN OLD FRACTURE. SUBCUTA NEOUS EDEMA IN THE FOREFOOT. OSTEOARTHRITIS AT THE FIRST MP JOINT. NO EVIDENCE OF OSTEOMYELITIS.
[2017-11-10 18:30] VITALS: BP 108/53; PULSE 68; TEMP 97.9
== END 2017-11-10 18:30 | disposition home or self-care (01) ==
LOC: EC 15:19
DX: M79.81 Nontraumatic hematoma of soft tissue (principal); M79.7 Fibromyalgia; M19.90 Unspecified osteoarthritis, unspecified site; E07.9 Disorder of thyroid, unspecified; F32.9 Major depressive disorder, single episode, unspecified; Z86.73 Personal history of transient ischemic attack (TIA), and cerebral infarction without residual deficits; Z86.711 Personal history of pulmonary embolism; Z79.82 Long term (current) use of aspirin; Z79.51 Long term (current) use of inhaled steroids; Z79.01 Long term (current) use of anticoagulants; Z79.891 Long term (current) use of opiate analgesic; Z79.899 Other long term (current) drug therapy; Z91.048 Other nonmedicinal substance allergy status
CPT/HCPCS: 36415; 85610; 99284

== ENCOUNTER 2017-11-20 19:06 | Inpatient (IN) | payer MEDICARE ==
[2017-11-20] MEDS ORDERED: MORPHINE SULFATE 4 MG/ML SYRINGE IVP STA (22:36)
[2017-11-20] MEDS ORDERED: ONDANSETRON 4 MG/2 ML VIAL IVP STA (22:36)
[2017-11-20 22:48] LABS: Basophils % (A) 0 %; Eosinophils # (A) 0.1 k/uL (0-0.7); Eosinophils % (A) 2 %; HCT 43.4 % (34.0-46.0); HGB 14.6 gm/dL (11.4-16.0); Lymphocytes # (A) 0.7 k/uL (1.0-4.8); Lymphocytes % (A) 19 %; MCH 30.1 pg (25.0-35.0); MCHC 33.6 g/dL (31.0-37.0); MCV 89.7 fL (80.0-100.0); Mean Platelet Volume 10.6; Monocytes # (A) 0.2 k/uL (0-1.0); Monocytes % (A) 6 %; Neutrophils # (A) 2.5 k/uL (1.3-7.7); Neutrophils % (A) 70 %; Platelet Count 117 k/uL (150-450); RBC 4.83 m/uL (3.80-5.40); WBC 3.6 k/uL (3.8-10.6)
[2017-11-20 23:07] LABS: Albumin 4.4 g/dL (3.5-5.0); Calcium 9.8 mg/dL (8.4-10.2); Potassium 3.3 mmol/L (3.5-5.1); Total Bilirubin 0.7 mg/dL (0.2-1.3); Total Protein 6.6 g/dL (6.3-8.2)
--- NOTE | 2017-11-20 23:22 | ED ---
Extremity Problem HPI - General Chief complaint: Extremity Problem,Nontraumatic Stated complaint: RT FOOT INFECTION Time Seen by Provider: 11/20/17 22:17 Source: patient Mode of arrival: wheelchair Limitations: no limitations - History of Present Illness Initial comments: 62-year-old female patient presents to the emergency department today for complaints of right foot swelling, redness, and ecchymosis. Patient states this has been going on for the last 10 days. States that she has not had any injuries to the foot. Patient was seen here approximately 10 days ago had x- ray and CT of the foot and was diagnosed with possible infection started on Keflex. Patient did take the Keflex but had no improvement. She did see Dr. Skinner at [facility] who saw a fracture of the right great toe on xray. He ordered MRI, but patient is unable to get in until Monday. She called his office back and was instructed to come to the emergency department for possible admission and IV antibiotics. Patient states that the pain in her foot is getting worse. She denies any numbness or tingling to the foot. States that the ecchymosis is spreading into the heel. She denies any fevers or chills with this. Patient denies any recent rash, shortness breath, chest pain, abdominal pain, nausea, vomiting, diarrhea, constipation, back pain, numbness, tingling, dizziness, weakness, hematuria, dysuria, urinary urgency, urinary frequency, headache, visual changes, or any other complaints. - Related Data Home Medications Medication Instructions Recorded Confirmed Aspirin 81 mg PO DAILY 11/08/13 11/20/17 Baclofen [Lioresal] 10 mg PO DAILY@169911/08/13 11/20/17 Citalopram Hydrobromide [CeleXA] 40 mg PO HS 11/08/13 11/20/17 Ferrous Sulfate [Feosol] 325 mg PO DAILY@0900 11/08/13 11/20/17 Fexofenadine HCl [Mimi Allergy] 180 mg PO DAILY@169911/08/13 11/20/17 Furosemide [Lasix] 40 mg PO BID@0900,1700 11/08/13 11/20/17 Montelukast [Singulair] 10 mg PO DAILY@169911/08/13 11/20/17 Nitroglycerin Sl Tabs [Nitrostat] 0.4 mg SUBLINGUAL Q5M PRN 11/08/13 11/20/17 Pantoprazole Sodium [Protonix] 40 mg PO DAILY@0600 11/08/13 11/20/17 Potassium Chloride [Potassium 20 meq PO BID@0900,1700 11/08/13 11/20/17 Chloride ER] Cholecalciferol [Vitamin D3] 2,000 unit PO DAILY 11/18/15 11/20/17 Dimethyl Fumarate [Tecfidera] 240 mg PO BID@0900,2100 11/18/15 11/20/17 Fluticasone Nasal [place] [Flonase 1 spray EA NOSTRIL DAILY 11/18/15 11/20/17 Nasal [place]] Methylphenidate HCl [Ritalin] 20 mg PO QAM@0900 11/18/15 11/20/17 Pravastatin Sodium [Pravachol] 20 mg PO HS@2100 11/18/15 11/20/17 Warfarin Sodium 5 mg PO [place]@17011/18/15 11/20/17 Warfarin [Coumadin] 7.5 mg PO SUTUWETHFRSA@1700 11/18/15 11/20/17 fentaNYL [Fentanyl] 25 mcg TRANSDERM Q72H 11/18/15 11/20/17 HYDROcodone/APAP 5-325MG [[place] 1 tab PO Q6HR PRN 07/13/16 11/20/17 5-325] Pregabalin [Lyrica] 100 mg PO TID@0900,1700,2100 07/13/16 11/20/17 Folic Acid 0.4 mg PO DAILY 08/18/16 11/20/17 Biotin 10,000 mcg PO BID@0900,1700 07/06/17 11/20/17 Levothyroxine Sodium [Synthroid] 75 mcg PO DAILY@0600 11/20/17 11/20/17 Previous Rx's Medication Instructions Recorded Cephalexin [Keflex] 500 mg PO QID #40 capsule 11/10/17 Allergies Allergy/AdvReac Type Severity Reaction Status Date / Time adhesive Allergy SKIN Verified 11/20/17 23:11 PEELING Review of Systems ROS Statement: Those systems with pertinent positive or pertinent negative responses have been documented in the HPI. ROS Other: All systems not noted in ROS Statement are negative. Past Medical History Past Medical History: Chest Pain / Angina, CVA/TIA, Fibromyalgia, Musculoskeletal Disorder, Neurologic Disorder, Osteoarthritis (OA), Pulmonary Embolus (PE), Sleep Apnea/CPAP/BIPAP, Thyroid Disorder Additional Past Medical History / Comment(s): MULTIPLE SCLEROSIS, HX OF CVA 2006 WITH R SIDED WEAKNESS AND DYSPHASIA-MUCH IMPROVED, MIGRAINES, SLEEP APNEA( HAS C-PAP MACHINE BUT DOES NOT USE) ABD HERNIA,CHRONIC PAIN ESPECIALLY ON R SIDE OF BODY AND LOW BACK . PAINFUL FOR HER TO LIE FLAT. HX OF NOSEBLEED JUL 2014 AND RECEIVED PLASMA TRANSFUSION. takes pills with applesauce. History of Any Multi-Drug Resistant Organisms: VRE Date of last positivie culture/infection: 10/24/09 confirmed with infectious disease nurse on 08/18/16. MDRO Source:: URINE Past Surgical History: Appendectomy, Cholecystectomy, Hysterectomy Additional Past Surgical History / Comment(s): Incisional hernia repair, laparoscopic lysis of adhesions in 1987, ganglion cyst removal of the left wrist , patent foramen ovale patch in 2006, RF ablation for back pain. Past Anesthesia/Blood Transfusion Reactions: No Reported Reaction Past Psychological History: No Psychological Hx Reported, Depression Smoking Status: Never smoker Past Alcohol Use History: None Reported Past Drug Use History: None Reported - Past Family History Mother Family Medical History: Hypertension Additional Family Medical History / Comment(s): osteoporosis Father Family Medical History: Dementia General Exam Limitations: no limitations General appearance: alert, in no apparent distress, other (This is a well- developed, well-nourished adult female patient in no acute distress. Vital signs upon presentation are temperature 97.3F, pulse 66, respirations 20, blood pressure 106/58, pulse ox 94% on room air.) Eye exam: Present: normal appearance, PERRL, EOMI. Absent: scleral icterus, conjunctival injection, periorbital swelling ENT exam: Present: normal exam, normal oropharynx, mucous membranes moist Respiratory exam: Present: normal lung sounds bilaterally. Absent: respiratory distress, wheezes, rales, rhonchi, stridor Cardiovascular Exam: Present: regular rate, normal rhythm, normal heart sounds. Absent: systolic murmur, diastolic murmur, rubs, gallop, clicks GI/Abdominal exam: Present: soft, normal bowel sounds. Absent: distended, tenderness, guarding, rebound, rigid Extremities exam: Present: full ROM, normal capillary refill, other (Right foot is swollen, firm, erythematous, with evidence of ecchymosis at the base of the toes, over the ankle, and over the heel. Skin is warm and dry. Unable to palpate pulses due to the swelling and pain.). Absent: normal inspection, pedal edema, joint swelling, calf tenderness Neurological exam: Present: alert, CN II-XII intact. Absent: oriented X3 ( Oriented 2) Psychiatric exam: Present: normal affect, normal mood Skin exam: Present: warm, dry, intact, normal color. Absent: rash Course Vital Signs 11/20/17 11/20/17 11/20/17 20:13 22:25 22:59 Temperature 97.3 F L 97.7 F Pulse Rate 66 65 52 L Respiratory 20 18 19 Rate Blood Pressure 106/58 112/64 137/63 O2 Sat by Pulse 94 L 97 92 L Oximetry Medical Decision Making - Medical Decision Making 62-year-old female patient presented to the emergency department today for evaluation of right foot pain, swelling, erythema, and ecchymosis. Physical examination did reveal right foot swelling, ecchymosis, and erythema. Patient is afebrile. Labs reviewed and did show normal white blood cell count. Patient 's potassium was 3.3, this will be replaced. We did speak to Dr. [facility] who would like us to admit to medicine for treatment of cellulitis. Dr. Skinner will be consulted to manage the MRI. Patient and were informed of plan and results. They verbalize understanding and agree. - Lab Data Result diagrams: 11/20/17 22:21 11/20/17 22:21 Lab Results 11/20/17 11/20/17 Range/Units 22:21 22:21 WBC 3.6 L (3.8-10.6) k/uL RBC 4.83 (3.80-5.40) m/uL Hgb 14.6 (11.4-16.0) gm/dL Hct 43.4 (34.0-46.0) % MCV 89.7 (80.0-100.0) fL MCH 30.1 (25.0-35.0) pg MCHC 33.6 (31.0-37.0) g/dL RDW 14.0 (11.5-15.5) % Plt Count 117 L (150-450) k/uL Neutrophils % 70 % Lymphocytes % 19 % Monocytes % 6 % Eosinophils % 2 % Basophils % 0 % Neutrophils # 2.5 (1.3-7.7) k/uL Lymphocytes # 0.7 L (1.0-4.8) k/uL Monocytes # 0.2 (0-1.0) k/uL Eosinophils # 0.1 (0-0.7) k/uL Basophils # 0.0 (0-0.2) k/uL Sodium 142 (137-145) mmol/L Potassium 3.3 L (3.5-5.1) mmol/L Chloride 98 (98-107) mmol/L Carbon Dioxide 31 H (22-30) mmol/L Anion Gap 13 mmol/L BUN 21 H (7-17) mg/dL Creatinine 1.00 (0.52-1.04) mg/dL Est GFR (CKD-EPI)AfAm 69 (>60 ml/min/1.73 sqM) Est GFR (CKD-EPI)NonAf 60 (>60 ml/min/1.73 sqM) Glucose 204 H (74-99) mg/dL Calcium 9.8 (8.4-10.2) mg/dL Total Bilirubin 0.7 (0.2-1.3) mg/dL AST 27 (14-36) U/L ALT 37 (9-52) U/L Alkaline Phosphatase 71 (38-126) U/L Total Protein 6.6 (6.3-8.2) g/dL Albumin 4.4 (3.5-5.0) g/dL Disposition Clinical Impression: Cellulitis of right foot, Right foot pain Disposition: ADMITTED IP TO THIS [facility] Condition: Serious Decision to Admit Reason: Admit from EC Decision Date: 11/21/17 Decision Time: 00:15
[2017-11-20] MEDS ORDERED: NALOXONE 0.4 MG/ML 1 ML VIAL IV PRN (23:47)
[2017-11-20] MEDS ORDERED: ACETAMINOPHEN TAB 325 MG TAB PO PRN (23:47)
[2017-11-20] MEDS ORDERED: VANCOMYCIN IV PER PHARMACY 1 EACH MISC MISCELLANE PRN (23:50)
[2017-11-20] MEDS ORDERED: NITROGLYCERIN SL TABS 0.4 MG TAB SUBLINGUAL PRN (23:51)
[2017-11-21] MEDS ORDERED: POTASSIUM CHLORIDE ER 20 MEQ TAB.ER PO STA (00:04)
[2017-11-21 00:31] LABS: INR 1.4 (<1.2); Partial Thromboplastin Time 23.1 sec (22.0-30.0); Prothrombin Time 12.7 sec (9.0-12.0)
[2017-11-21] MEDS: SODIUM CHLORIDE 0.9% 1,000 ML IV SCH ×2 (01:48→21:29)
[2017-11-21] MEDS ORDERED: VANCOMYCIN 1,500 MG in SODIUM CHLORIDE 0.9% 250 ML IVPB SCH (02:00)
[2017-11-21] MEDS ORDERED: LEVOTHYROXINE 75 MCG TAB PO SCH (06:00)
[2017-11-21] MEDS: LEVOTHYROXINE 50 MCG TAB PO SCH (06:33)
[2017-11-21] MEDS: PANTOPRAZOLE 40 MG TABLET PO SCH (06:33)
[2017-11-21] MEDS: FERROUS SULFATE 325 MG TAB PO SCH (08:14)
[2017-11-21] MEDS: POTASSIUM CHLORIDE ER 20 MEQ TAB.ER PO SCH ×2 (08:15→17:54)
[2017-11-21] MEDS: METHYLPHENIDATE HCL 10 MG TAB PO SCH (08:15)
[2017-11-21] MEDS: ASPIRIN 81 MG PO SCH (08:15)
[2017-11-21] MEDS: FLUTICASONE 50MCG/SPRAY NASAL 16GM EA NOSTRIL SCH (08:16)
[2017-11-21] MEDS: PREGABALIN 100 MG CAP PO SCH ×3 (08:16→21:32)
[2017-11-21] MEDS: DIMETHYL FUMARATE 240 MG PO SCH ×2 (08:19→21:28)
[2017-11-21] MEDS: FUROSEMIDE 40 MG TAB PO SCH ×2 (08:25→17:54)
[2017-11-21] MEDS: CHOLECALCIFEROL 1,000 UNIT TAB PO SCH (08:25)
[2017-11-21] MEDS: FOLIC ACID 1 MG TAB PO SCH (08:25)
[2017-11-21] MEDS ORDERED: NON-FORMULARY DRUG (Biotin [Biotin] 10,000 MCG) PO SCH (09:00)
[2017-11-21 09:29] LABS: Calcium 8.5 mg/dL (8.4-10.2); Potassium 4.3 mmol/L (3.5-5.1)
[2017-11-21 09:30] LABS: Basophils % (A) 1 %; Eosinophils # (A) 0.1 k/uL (0-0.7); Eosinophils % (A) 4 %; HCT 37.1 % (34.0-46.0); HGB 12.6 gm/dL (11.4-16.0); Lymphocytes # (A) 0.5 k/uL (1.0-4.8); Lymphocytes % (A) 23 %; MCH 30.9 pg (25.0-35.0); MCV 90.8 fL (80.0-100.0); Mean Platelet Volume 10.9; Monocytes # (A) 0.2 k/uL (0-1.0); Monocytes % (A) 8 %; Neutrophils # (A) 1.4 k/uL (1.3-7.7); Neutrophils % (A) 61 %; RBC 4.09 m/uL (3.80-5.40); RDW 14.3 % (11.5-15.5); WBC 2.3 k/uL (3.8-10.6)
[2017-11-21 09:53] LABS: Platelet Count 92 k/uL (150-450); Poikilocytosis (M) Present
[2017-11-21] MEDS: HYDROcodone/APAP 5-325MG 1 EACH TAB PO PRN (10:14)
--- NOTE | 2017-11-21 10:33 | P.CNOR ---
History of Present Illness - [facility] Consult date: 11/21/17 Requesting physician: Hernán Skinner Consult reason: other (right foot pain, swelling, cellulitis) History of present illness: The patient is a 62 year old female seen at [facility] this morning. She has been seen in our office by Dr. Skinner for her right foot pain and swelling. Her medical history is significant for multiple medical problems including blood clots, Multiple Sclerosis and history of stroke. The onset of her foot pain started 11/10/17 with no known history of injury. She describes developing bruising about the foot, again with no injury. She relates being evaluated at the Emergency Room at [facility] on 11/10/17 and had x-rays taken and then followed up with her primary care physician the following Monday. Xrays have not shown a definite acute fracture or lesion. An MRI was recommended which was not able to be performed prior to her foot increasing with geovany, swelling and signs of cellulitis. She was admitted through the ED last evening for further evaluation and management. She is currently denying fever, chills, chest pain, shortness of breath numbness, tingling, or other new complaints. Review of Systems All systems: negative Constitutional: Denies chills, Denies fever Eyes: denies blurred vision, denies pain Ears, nose, mouth and throat: Denies headache, Denies sore throat Cardiovascular: Denies chest pain, Denies shortness of breath Respiratory: Denies cough Gastrointestinal: Denies abdominal pain, Denies diarrhea, Denies nausea, Denies vomiting Genitourinary: Denies dysuria, Denies hematuria Musculoskeletal: Denies myalgias Integumentary: Denies pruritus, Denies rash Neurological: Denies numbness, Denies weakness Psychiatric: Denies anxiety, Denies depression Endocrine: Denies fatigue, Denies weight change Past Medical History Past Medical History: Chest Pain / Angina, CVA/TIA, Fibromyalgia, Musculoskeletal Disorder, Neurologic Disorder, Osteoarthritis (OA), Pulmonary Embolus (PE), Sleep Apnea/CPAP/BIPAP, Thyroid Disorder Additional Past Medical History / Comment(s): MULTIPLE SCLEROSIS, HX OF CVA 2006 WITH R SIDED WEAKNESS AND DYSPHASIA-MUCH IMPROVED, MIGRAINES, SLEEP APNEA( HAS C-PAP MACHINE BUT DOES NOT USE) ABD HERNIA,CHRONIC PAIN ESPECIALLY ON R SIDE OF BODY AND LOW BACK . PAINFUL FOR HER TO LIE FLAT. HX OF NOSEBLEED JUL 2014 AND RECEIVED PLASMA TRANSFUSION. takes pills with applesauce. 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 MDRO Source:: URINE Past Surgical History: Appendectomy, Cholecystectomy, Hysterectomy Additional Past Surgical History / Comment(s): Incisional hernia repair, laparoscopic lysis of adhesions in 1987, ganglion cyst removal of the left wrist , patent foramen ovale patch in 2006, RF ablation for back pain. Past Anesthesia/Blood Transfusion Reactions: No Reported Reaction Past Psychological History: Depression Additional Psychological History / Comment(s): CELEXA. PT HAS DIFFICULTY W/ SPEECH BUT IS MUCH IMPROVED. HAS TO LOOK AT DIETARY MENU TO ORDER CAN'T DO IT BY PHONE. Pt resides with her spouse. She uses a cane to ambulate. She also has a walker. Spouse drives her to appointments. Spouse assists her with some ADLs when needed. Smoking Status: Never smoker Past Alcohol Use History: None Reported Past Drug Use History: None Reported Additional Drug Use History / Comment(s): Lives at home with her requires some assistance with ADLs at times - Past Family History Mother Family Medical History: Hypertension Additional Family Medical History / Comment(s): osteoporosis Father Family Medical History: Dementia Medications and Allergies Home Medications Medication Instructions Recorded Confirmed Type Aspirin 81 mg PO DAILY 11/08/13 11/20/17 History Baclofen [Lioresal] 10 mg PO DAILY@1700 11/08/13 11/20/17 History Citalopram Hydrobromide [CeleXA] 40 mg PO HS 11/08/13 11/20/17 History Ferrous Sulfate [Feosol] 325 mg PO DAILY@0900 11/08/13 11/20/17 History Fexofenadine HCl [Mimi Allergy] 180 mg PO DAILY@169911/08/13 11/20/17 History Furosemide [Lasix] 40 mg PO BID@0900,1700 11/08/13 11/20/17 History Montelukast [Singulair] 10 mg PO DAILY@0 11/08/13 11/20/17 History Nitroglycerin Sl Tabs [Nitrostat] 0.4 mg SUBLINGUAL Q5M PRN 11/08/13 11/20/17 History Pantoprazole Sodium [Protonix] 40 mg PO DAILY@0600 11/08/13 11/20/17 History Potassium Chloride [Potassium 20 meq PO BID@0900,1700 11/08/13 11/20/17 History Chloride ER] Cholecalciferol [Vitamin D3] 2,000 unit PO DAILY 11/18/15 11/20/17 History Dimethyl Fumarate [Tecfidera] 240 mg PO BID@0900,2100 11/18/15 11/20/17 History Fluticasone Nasal [place] [Flonase 1 spray EA NOSTRIL DAILY 11/18/15 11/20/17 History Nasal [place]] Methylphenidate HCl [Ritalin] 20 mg PO QAM@0900 11/18/15 11/20/17 History Pravastatin Sodium [Pravachol] 20 mg PO HS@2100 11/18/15 11/20/17 History Warfarin Sodium 5 mg PO MO@1700 11/18/15 11/20/17 History Warfarin [Coumadin] 7.5 mg PO SUTUWETHFRSA@1700 11/18/15 11/20/17 History fentaNYL [Fentanyl] 25 mcg TRANSDERM Q72H 11/18/15 11/21/17 History Pregabalin [Lyrica] 100 mg PO TID@0900,1700,2100 07/13/16 11/20/17 History Folic Acid 0.4 mg PO DAILY 08/18/16 11/20/17 History Biotin 10,000 mcg PO BID@0900,1700 07/06/17 11/20/17 History Cephalexin [Keflex] 500 mg PO QID #40 capsule 11/10/17 11/20/17 Rx Levothyroxine Sodium [Synthroid] 50 mcg PO DAILY@0600 11/20/17 11/21/17 History Allergies Allergy/AdvReac Type Severity Reaction Status Date / Time adhesive Allergy SKIN Verified 11/20/17 23:11 PEELING Physical Examination Inspection of the right foot shows resolving echymosis along with diffuse edema of the dorsum of the foot. There is mild-moderate erythematous area over the dorsum of the midfoot/forefoot. The dorsum of the foot is tender to palpation. It is not overly hot. Motor and sensation is intact at the ankle, foot and toes. There is 2+ dorsalis pedis pulse and less than 2 sec cap refill in all digits. Calf is SNT. Results - Labs Labs: Abnormal Lab Results - Last 24 Hours (Table) 11/20/17 11/20/17 11/21/17 Range/Units 22:21 22:21 00:11 WBC 3.6 L (3.8-10.6) k/uL Plt Count 117 L (150-450) k/uL Lymphocytes # 0.7 L (1.0-4.8) k/uL PT 12.7 H (9.0-12.0) sec INR 1.4 H (<1.2) Potassium 3.3 L (3.5-5.1) mmol/L Carbon Dioxide 31 H (22-30) mmol/L BUN 21 H (7-17) mg/dL Glucose 204 H (74-99) mg/dL 11/21/17 11/21/17 Range/Units 09:02 09:02 WBC 2.3 L (3.8-10.6) k/uL Plt Count 92 L (150-450) k/uL Lymphocytes # 0.5 L (1.0-4.8) k/uL PT (9.0-12.0) sec INR (<1.2) Potassium (3.5-5.1) mmol/L Carbon Dioxide (22-30) mmol/L BUN 19 H (7-17) mg/dL Glucose 169 H (74-99) mg/dL H & H 11/20/17 11/21/17 Range/Units 22:21 09:02 Hgb 14.6 12.6 (11.4-16.0) gm/dL Hct 43.4 37.1 (34.0-46.0) % Coagulation 11/21/17 Range/Units 00:11 INR 1.4 H (<1.2) Result Diagrams: 11/21/17 09:02 11/21/17 09:02 Assessment and Plan (1) Cellulitis of right foot Narrative/Plan: I have discussed her case with Dr. Skinner. I have ordered a STAT MRI w/wo contrast of the foot and consider I and D if warranted. Continue elevation. Appreciate infectious disease assistance with management. She has been made NPO. Will make further recommendations as appropriate. Current Visit: Yes Status: Acute Priority: Medium Code(s): L03.115 - CELLULITIS OF RIGHT LOWER LIMB SNOMED Code(s): 309755715 Time with Patient: Less than 30
[2017-11-21] MEDS ORDERED: MORPHINE SULFATE 4 MG/ML SYRINGE IVP PRN (11:28)
--- NOTE | 2017-11-21 11:41 | P.HPIM ---
History of Present Illness H&P Date: 11/21/17 Chief Complaint: Right foot pain with swelling and redness This is a 62-year-old female with a known past medical history of multiple sclerosis, DVT and PE, hypothyroidism, borderline diabetes mellitus, sleep apnea and hyperlipidemia. Patient presents to the emergency room with complaints of pain and swelling in the right foot. She's found have evidence of cellulitis there is concerns about a possible abscess. She has been admitted to the hospital and placed on IV vancomycin. Orthopedics and infectious disease have been consulted. Orthopedics have ordered an MRI of the foot to rule out an abscess. Patient may require an I&D. White, admission is low at 3.6 platelets 117. Possibly related to infections. Patient initially came into the ER on November 10 for infection of the right foot and was placed on Keflex for 10 days. She completed the antibiotic course with really no improvement. She had a computed tomography scan on November 10 that showed no evidence of osteomyelitis in no acute fracture. There is slight thickening of the second metatarsal could relate to an old fracture. Patient denies any injury to the area. Patient denies any fever or chills or sweats. Denies any chest pain or shortness breath. Denies any nausea or vomiting. Denies any bowel movement changes or urinary symptoms Review of Systems Please refer to HPI otherwise unremarkable Past Medical History Past Medical History: Chest Pain / Angina, CVA/TIA, Fibromyalgia, Musculoskeletal Disorder, Neurologic Disorder, Osteoarthritis (OA), Pulmonary Embolus (PE), Sleep Apnea/CPAP/BIPAP, Thyroid Disorder Additional Past Medical History / Comment(s): MULTIPLE SCLEROSIS, HX OF CVA 2006 WITH R SIDED WEAKNESS AND DYSPHASIA-MUCH IMPROVED, MIGRAINES, SLEEP APNEA( HAS C-PAP MACHINE BUT DOES NOT USE) ABD HERNIA,CHRONIC PAIN ESPECIALLY ON R SIDE OF BODY AND LOW BACK . PAINFUL FOR HER TO LIE FLAT. HX OF NOSEBLEED JUL 2014 AND RECEIVED PLASMA TRANSFUSION. takes pills with applesauce. History of Any Multi-Drug Resistant Organisms: VRE Date of last positivie culture/infection: 10/24/09 confirmed with infectious disease nurse on 08/18/16. MDRO Source:: URINE Past Surgical History: Appendectomy, Cholecystectomy, Hysterectomy Additional Past Surgical History / Comment(s): Incisional hernia repair, laparoscopic lysis of adhesions in 1987, ganglion cyst removal of the left wrist , patent foramen ovale patch in 2006, RF ablation for back pain. Past Anesthesia/Blood Transfusion Reactions: No Reported Reaction Past Psychological History: Depression Additional Psychological History / Comment(s): CELEXA. PT HAS DIFFICULTY W/ SPEECH BUT IS MUCH IMPROVED. HAS TO LOOK AT DIETARY MENU TO ORDER CAN'T DO IT BY PHONE. Pt resides with her spouse. She uses a cane to ambulate. She also has a walker. Spouse drives her to appointments. Spouse assists her with some ADLs when needed. Smoking Status: Never smoker Past Alcohol Use History: None Reported Past Drug Use History: None Reported Additional Drug Use History / Comment(s): Lives at home with her requires some assistance with ADLs at times - Past Family History Mother Family Medical History: Hypertension Additional Family Medical History / Comment(s): osteoporosis Father Family Medical History: Dementia Medications and Allergies Home Medications Medication Instructions Recorded Confirmed Type Aspirin 81 mg PO DAILY 11/08/13 11/20/17 History Baclofen [Lioresal] 10 mg PO DAILY@17011/08/13 11/20/17 History Citalopram Hydrobromide [CeleXA] 40 mg PO HS 11/08/13 11/20/17 History Ferrous Sulfate [Feosol] 325 mg PO DAILY@0900 11/08/13 11/20/17 History Fexofenadine HCl [Mimi Allergy] 180 mg PO DAILY@169911/08/13 11/20/17 History Furosemide [Lasix] 40 mg PO BID@0900,1700 11/08/13 11/20/17 History Montelukast [Singulair] 10 mg PO DAILY@169911/08/13 11/20/17 History Nitroglycerin Sl Tabs [Nitrostat] 0.4 mg SUBLINGUAL Q5M PRN 11/08/13 11/20/17 History Pantoprazole Sodium [Protonix] 40 mg PO DAILY@0600 11/08/13 11/20/17 History Potassium Chloride [Potassium 20 meq PO BID@0900,1700 11/08/13 11/20/17 History Chloride ER] Cholecalciferol [Vitamin D3] 2,000 unit PO DAILY 11/18/15 11/20/17 History Dimethyl Fumarate [Tecfidera] 240 mg PO BID@0900,2100 11/18/15 11/20/17 History Fluticasone Nasal [place] [Flonase 1 spray EA NOSTRIL DAILY 11/18/15 11/20/17 History Nasal [place]] Methylphenidate HCl [Ritalin] 20 mg PO QAM@0900 11/18/15 11/20/17 History Pravastatin Sodium [Pravachol] 20 mg PO HS@2100 11/18/15 11/20/17 History Warfarin Sodium 5 mg PO MO@1700 11/18/15 11/20/17 History Warfarin [Coumadin] 7.5 mg PO SUTUWETHFRSA@1700 11/18/15 11/20/17 History fentaNYL [Fentanyl] 25 mcg TRANSDERM Q72H 11/18/15 11/21/17 History Pregabalin [Lyrica] 100 mg PO TID@0900,1700,2100 07/13/16 11/20/17 History Folic Acid 0.4 mg PO DAILY 08/18/16 11/20/17 History Biotin 10,000 mcg PO BID@0900,1700 07/06/17 11/20/17 History Cephalexin [Keflex] 500 mg PO QID #40 capsule 11/10/17 11/20/17 Rx Levothyroxine Sodium [Synthroid] 50 mcg PO DAILY@0600 11/20/17 11/21/17 History Allergies Allergy/AdvReac Type Severity Reaction Status Date / Time adhesive Allergy SKIN Verified 11/20/17 23:11 [place] Physical Exam Vitals: Vital Signs Temp Pulse Pulse Resp BP BP Pulse Ox 11/21/17 06:46 97.0 F L 55 L 18 98/60 94 L 11/21/17 00:30 97.0 F L 56 L 16 120/66 96 11/20/17 22:59 52 L 19 137/63 92 L 11/20/17 22:25 97.7 F 65 18 112/64 97 11/20/17 20:13 97.3 F L 66 20 106/58 94 L Intake and Output 11/20/17 11/21/17 11/21/17 22:59 06:59 14:59 Other: Voiding Method Toilet # Voids 1 1 Weight 103.419 kg 103.419 kg Head normocephalic Neck supple Lungs clear to auscultation bilaterally no wheezing or crackles Heart regular rate and rhythm S1-S2, no rub or gallop Abdomen is soft nontender nondistended positive bowel sounds no hepatosplenomegaly Extremities top of right foot is red and swollen and tender with palpation. There is a small breakdown of skin where injury may have occurred. She has bruising in a line straight across all 5 toes. Bruising also noted behind the toes. She has some mild bruising the lateral aspects of the side of the foot. The erythema spread along the top and around the lateral malleolus. No drainage or blisters noted. She is able to wiggle the toes. Neuro awake and alert. Expressive aphasia due to old stroke Results CBC & Chem 7: 11/21/17 09:02 11/21/17 09:02 Labs: Abnormal Lab Results - Last 24 Hours (Table) 11/20/17 11/20/17 11/21/17 Range/Units 22:21 22:21 00:11 WBC 3.6 L (3.8-10.6) k/uL Plt Count 117 L (150-450) k/uL Lymphocytes # 0.7 L (1.0-4.8) k/uL PT 12.7 H (9.0-12.0) sec INR 1.4 H (<1.2) Potassium 3.3 L (3.5-5.1) mmol/L Carbon Dioxide 31 H (22-30) mmol/L BUN 21 H (7-17) mg/dL Glucose 204 H (74-99) mg/dL 11/21/17 11/21/17 Range/Units 09:02 09:02 WBC 2.3 L (3.8-10.6) k/uL Plt Count 92 L (150-450) k/uL Lymphocytes # 0.5 L (1.0-4.8) k/uL PT (9.0-12.0) sec INR (<1.2) Potassium (3.5-5.1) mmol/L Carbon Dioxide (22-30) mmol/L BUN 19 H (7-17) mg/dL Glucose 169 H (74-99) mg/dL Thrombosis Risk Factor Assmnt - Choose All That Apply Any of the Below Risk Factors Present?: Yes Each Factor Represents 1 point: Obesity (BMI >25) Other Risk Factors: Yes Each Risk Factor Represents 2 Points: Age 61-74 years Other congenital or acquired thrombophilia - If yes, enter type in comment: No Thrombosis Risk Factor Assessment Total Risk Factor Score: 3 Thrombosis Risk Factor Assessment Level: Moderate Risk Assessment and Plan Time with Patient: Greater than 30 (Greater than 60% of the total time spent in counseling and coordination of care. I performed an examination of the patient and discussed their management with the physician Beverage Manager. I have reviewed the Physician Beverage Manager's notes and agree with the documented findings and plan of care)
[2017-11-21] MEDS ORDERED: VANCOMYCIN IV PER PHARMACY 1 EACH MISC MISCELLANE PRN (13:36)
[2017-11-21] MEDS ORDERED: ceFAZolin IN SWFI 2 GM/20 ML SYRINGE IVP SCH (16:00)
[2017-11-21] MEDS: VANCOMYCIN 1,750 MG in SODIUM CHLORIDE 0.9% 250 ML IVPB SCH (17:37)
[2017-11-21] MEDS: WARFARIN 7.5 MG TAB PO SCH (17:48)
[2017-11-21] MEDS: LORATADINE 10 MG TAB PO SCH (17:54)
[2017-11-21] MEDS: BACLOFEN 10 MG TAB PO SCH (17:54)
[2017-11-21] MEDS: MONTELUKAST 10 MG TAB PO SCH (17:54)
--- NOTE | 2017-11-21 17:56 | MR ---
MR right foot with and without contrast HISTORY: Infection, swelling, bruising Multiplanar multisequence and postcontrast images obtained through the right foot following 10 cc Donaldo avist IV. Correlation to CT lower extremity 11/10/2017, plain film 11/10/2017 There are fluid collections of the dorsum of the foot measuring approximately 2.5 x 1.7 x 1 cm and 2. 5 x 1 x 2.4 cm. One collection slightly more distal over the third and fourth metatarsals shows inter mediate signal on T1, low signal on T2-weighted images is the other which is somewhat more proximal a t the level of the second and third metatarsals and somewhat more medial shows some increased signal on T1 and T2-weighted sequences, both are lobular in appearance. The subcutaneous soft tissues show i ncreased signal on T2-weighted sequences. Some peripheral enhancement is noted following contrast adm inistration at these fluid collections. Enhancement of the soft tissues is also present. Bone marrow signal is maintained. Arthropathy present at the metatarsophalangeal joint of the first digit. IMPRESSION: Correlate for possible abscess formation, hematoma over the dorsum of the foot. There may be associated cellulitis.
[2017-11-21] MEDS: CITALOPRAM HYDROBROMIDE 20 MG TAB PO SCH (21:29)
[2017-11-21] MEDS: PRAVASTATIN SODIUM 20 MG TAB PO SCH (21:29)
--- NOTE | 2017-11-21 23:33 | CONS ---
CONSULTATION DATE OF SERVICE: 11/21/2017 REASON FOR CONSULTATION: Right foot abscess and cellulitis failing outpatient antibiotic therapy. HISTORY OF PRESENT ILLNESS: The patient is a 62-year-old female who apparently developed pain and swelling to the right foot area about 2 weeks ago. Patient does not recall any history of any trauma. She thought it was likely a small blister or scratched area that subsequently became more swollen and red and painful. Pain is described to be more throbbing in nature, almost 10/10 in severity, with surrounding swelling and redness of the whole foot. The patient did have some chills but denies any high-grade fever. With these symptoms, the patient was evaluated at the [facility] ER on 11/10/2017, and the patient did have x-rays of the foot which showed some soft tissue swelling. CT of the leg was negative for any abscess collection. The patient has been treated with oral Keflex for 10 days. However, the patient did not have any improvement, with worsening pain, swelling and redness. She presented back to the [facility] ER yesterday in the evening, where she was evaluated by the ER physician. No high-grade fever has been noted. Her white count was slightly on the low side at 3.6 and 2.3. The patient had blood cultures obtained and she was started on vancomycin, Pharmacy to dose. Orthopedics was consulted, who ordered an MRI of the right foot, which is currently coming back positive with a 2.5 x 1.7 x 1 cm fluid collection suspicious for an abscess. There are two different collections. Infectious Disease was consulted for further recommendations regarding antibiotic therapy, as the patient did fail outpatient oral Keflex. REVIEW OF SYSTEMS: CONSTITUTIONAL: Positive for weakness along with some chills. EYES: No complaint. ENT: No complaint. RESPIRATORY: No complaint. CARDIOVASCULAR: No complaint. GENITOURINARY: No complaint. GASTROINTESTINAL: No complaint. MUSCULOSKELETAL: As per HPI. INTEGUMENTARY: As per HPI. PSYCHOLOGICAL: No complaint. ENDOCRINE: No complaint. NEUROLOGICAL: No complaint. PAST MEDICAL HISTORY: 1. CVA. 2. TIA. 3. Fibromyalgia. 4. Osteoarthritis. 5. Pulmonary embolism. 6. Sleep apnea. 7. Hypothyroidism. 8. Multiple sclerosis. PAST SURGICAL HISTORY: 1. Appendectomy. 2. Cholecystectomy. 3. Hysterectomy. 4. Incisional hernia repair. 5. Laparoscopic lysis of adhesions. 6. Ganglion cyst removal. 7. Patent foramen ovale patch. SOCIAL HISTORY: The patient denies smoking, drinking or any drug use. . Lives with . FAMILY HISTORY: Mother with history of hypertension, osteoporosis. Father with history of dementia. ALLERGIES: ADHESIVE. NO KNOWN DRUG ALLERGIES. CURRENT MEDICATIONS: 1. Tylenol. 2. [place]. 3. Aspirin. 4. Baclofen. 5. Vitamin D3. 6. Celexa. 7. Fentanyl. 8. Iron sulfate. 9. Flonase. 10.Folic acid. 11.Lasix. 12.Synthroid. 13.Claritin. 14.Ritalin. 15.Singulair. 16.Morphine sulfate. 17.Narcan. 18.Nitrostat. 19.Protonix. 20.K-[place]. 21.Vancomycin, Pharmacy to dose. PHYSICAL EXAMINATION: Blood pressure is 103/50 with a pulse of 65, temperature 98.1. She is 92% on room air. General description is a middle-aged female lying in bed in no distress. No tachypnea or accessory muscle of respiration use. HEENT EXAMINATION: No pallor or scleral icterus. Oral mucosa membrane is moist. No pharyngeal erythema or thrush. NECK: Trachea is central. No thyromegaly. LUNGS: Unlabored breathing. Clear to auscultation anteriorly. No wheeze or crackle. HEART: S1, S2. Regular rate and rhythm. No added sound. ABDOMEN: Soft. No tenderness. No guarding or rigidity. EXTREMITIES: No edema of feet. EXAMINATION OF THE RIGHT FOOT: It is currently swollen, red, warm to touch, tender, slightly fluctuant. Neurologically the patient is awake, alert, oriented x3. Mood and affect normal. LABS: Hemoglobin is 12.3, white count 2.3, BUN of 19, creatinine 0.90. Electrolytes have been normal. Blood culture currently pending. DIAGNOSTIC IMPRESSION AND PLAN: Patient with right foot pain, swelling and redness which is warm to touch and tender with evidence of two abscesses on the basis of MRI, failing outpatient oral Keflex therapy with concern about possible community associated MRSA. PLAN: 1. Await the orthopedic surgical drainage of these abscesses. Fluid should be sent for culture, both aerobic and anaerobic. 2. Vancomycin, Pharmacy to dose. Target of 15 while watching her kidney function closely. 3. We will follow up on the clinical condition and culture to further adjust medication if needed. Thank you for this consultation. Will follow this patient along with you. MMODL / IJN: [id number] /
[2017-11-22] MEDS: PANTOPRAZOLE 40 MG TABLET PO SCH (05:48)
[2017-11-22] MEDS: LEVOTHYROXINE 50 MCG TAB PO SCH (05:48)
[2017-11-22 09:05] LABS: INR 1.3 (<1.2); Prothrombin Time 12.7 sec (9.0-12.0)
[2017-11-22 09:08] LABS: Albumin 3.4 g/dL (3.5-5.0); Calcium 8.5 mg/dL (8.4-10.2); Total Protein 5.2 g/dL (6.3-8.2)
[2017-11-22 09:10] LABS: Basophils % (A) 1 %; Eosinophils # (A) 0.1 k/uL (0-0.7); Eosinophils % (A) 5 %; HCT 36.8 % (34.0-46.0); HGB 12.3 gm/dL (11.4-16.0); Lymphocytes # (A) 0.5 k/uL (1.0-4.8); Lymphocytes % (A) 24 %; MCH 30.2 pg (25.0-35.0); MCHC 33.4 g/dL (31.0-37.0); MCV 90.6 fL (80.0-100.0); Mean Platelet Volume 10.4; Monocytes # (A) 0.2 k/uL (0-1.0); Monocytes % (A) 8 %; Neutrophils # (A) 1.2 k/uL (1.3-7.7); Neutrophils % (A) 60 %; RBC 4.06 m/uL (3.80-5.40); RDW 14.1 % (11.5-15.5)
[2017-11-22 09:16] LABS: Platelet Count 88 k/uL (150-450)
[2017-11-22] MEDS: FLUTICASONE 50MCG/SPRAY NASAL 16GM EA NOSTRIL SCH (11:54)
--- NOTE | 2017-11-22 12:49 | P.PN ---
Subjective Progress Note Date: 11/22/17 This is a 62-year-old female with a known past medical history of multiple sclerosis, DVT and PE, hypothyroidism, borderline diabetes mellitus, sleep apnea and hyperlipidemia. Patient presents to the emergency room with complaints of pain and swelling in the right foot. She's found have evidence of cellulitis there is concerns about a possible abscess. She has been admitted to the hospital and placed on IV vancomycin. Orthopedics and infectious disease have been consulted. Orthopedics have ordered an MRI of the foot to rule out an abscess. Patient may require an I&D. White, admission is low at 3.6 platelets 117. Possibly related to infections. Patient initially came into the ER on November 10 for infection of the right foot and was placed on Keflex for 10 days. She completed the antibiotic course with really no improvement. She had a computed tomography scan on November 10 that showed no evidence of osteomyelitis in no acute fracture. There is slight thickening of the second metatarsal could relate to an old fracture. Patient denies any injury to the area. Patient denies any fever or chills or sweats. Denies any chest pain or shortness breath. Denies any nausea or vomiting. Denies any bowel movement changes or urinary symptoms. On 11/22/2017 Patient is alert and oriented in no distress, foot erythema and swelling improving there is no fever or chills, no chest pain or SOB, no cough, no nausea or vomiting no abdominal pain no diarrhea and no urinary symptoms Objective - Vital Signs Vital signs: Vital Signs Temp 97.0 F L 11/22/17 05:20 Pulse 52 L 11/22/17 05:20 Resp 16 11/22/17 08:00 BP 96/58 11/22/17 05:20 Pulse Ox 95 11/22/17 05:20 Intake & Output 11/21/17 11/22/17 11/22/17 18:59 06:59 18:59 Weight 103.419 kg Other: Voiding Method Toilet Toilet # Voids 1 1 # Bowel Movements 1 - Exam Head normocephalic and atraumatic Neck supple, no JVD Lungs clear to auscultation bilaterally no wheezing or crackles Heart regular rate and rhythm S1-S2, no rub or gallop Abdomen is soft nontender nondistended positive bowel sounds no hepatosplenomegaly Extremities top of right foot is red and swollen and tender with palpation. There is a small breakdown of skin where injury may have occurred. She has bruising in a line straight across all 5 toes. Bruising also noted behind the toes. She has some mild bruising the lateral aspects of the side of the foot. The erythema spread along the top and around the lateral malleolus. No drainage or blisters noted. She is able to wiggle the toes. Neuro awake and alert. Expressive aphasia due to old stroke - Labs CBC & Chem 7: 11/22/17 08:33 11/22/17 08:33 Labs: Abnormal Lab Results - Last 24 Hours (Table) 11/22/17 11/22/17 11/22/17 Range/Units 08:33 08:33 08:33 WBC 2.0 L* (3.8-10.6) k/uL Plt Count 88 L (150-450) k/uL Neutrophils # 1.2 L (1.3-7.7) k/uL Lymphocytes # 0.5 L (1.0-4.8) k/uL PT 12.7 H (9.0-12.0) sec INR 1.3 H (<1.2) Carbon Dioxide 31 H (22-30) mmol/L Glucose 103 H (74-99) mg/dL Total Protein 5.2 L (6.3-8.2) g/dL Albumin 3.4 L (3.5-5.0) g/dL Microbiology - Last 24 Hours (Table) 11/20/17 22:21 Blood Culture - Preliminary Blood No Growth after 24 hours Assessment and Plan Plan: 1. Right foot cellulitis with possible abscess: Patient started on IV vancomycin. Infectious disease and orthopedics consulted. Orthopedics have ordered an MRI of the foot. Patient may require an I&D. 2. Leukopenia and thrombocytopenia: Possibly related to patient's infection continue to monitor 3. History of multiple sclerosis no evidence of exacerbation 4. Hypokalemia patient received potassium supplement 5. History of PE and DVT maintained on Coumadin INR 1.4. Patient will receive Coumadin 7.5 mg tonight. Repeat PT/INR in a.m. 6. Pain control: Continue the [place] and fentanyl patch. We will add IV morphine 2 mg every 4 hours as needed 7. History of borderline diabetic add sliding scale coverage GI prophylaxis per tonics and DVT prophylaxis Coumadin
[2017-11-22] MEDS: POTASSIUM CHLORIDE ER 20 MEQ TAB.ER PO SCH ×2 (14:04→18:13)
[2017-11-22] MEDS: FUROSEMIDE 40 MG TAB PO SCH ×2 (14:04→18:13)
[2017-11-22] MEDS: PREGABALIN 100 MG CAP PO SCH ×3 (15:05→21:04)
[2017-11-22] MEDS ORDERED: IV FLUID CONTINUATION 1,000 ML IV ONE (15:40)
[2017-11-22] MEDS ORDERED: PROPOFOL 10 MG/ML 20 ML VIAL IV ONE (16:00)
[2017-11-22] MEDS ORDERED: SUCCINYLCHOLINE CHLORIDE 100 MG/5 ML SYR IV ONE (16:00)
[2017-11-22] MEDS ORDERED: fentaNYL (PF) 50 MCG/ML 2 ML AMP ONE (16:00)
[2017-11-22] MEDS ORDERED: LIDOCAINE 1% INJ 10MG/ML (20 ML MDV) ONE (16:00)
[2017-11-22] MEDS ORDERED: MIDAZOLAM 2 MG/2 ML VIAL ONE (16:00)
[2017-11-22] MEDS ORDERED: ceFAZolin 1,000 MG in SODIUM CHLORIDE 0.9% 1,000 ML IRRIGATION ONE (16:22)
--- NOTE | 2017-11-22 16:45 | P.OP ---
Date of Procedure: 11/22/17 Preoperative Diagnosis: 1. Right foot swelling and MRI evidence of deep fluid collection Postoperative Diagnosis: Right foot hematoma Procedure(s) Performed: Incision and drainage, right foot Anesthesia: JOSE Surgeon: Hernán Skinner Clinical Informatics Manager #1: Adelso Chan Estimated Blood Loss (ml): 5 IV fluids (ml): 200 Pathology: other (Deep tissue cultures, aerobic and anaerobic as well as tissue cultures) Condition: stable Disposition: PACU Indications for Procedure: The patient is a 62-year-old female with multiple medical problems including multiple sclerosis. The patient came to my office a week ago with pain and bruising in her foot. She had no history of trauma and there were no signs of infection on her exam. She was placed in a boot and an MRI was ordered. Over the next several days she developed increasing pain and redness over the top of her foot. She presented to the emergency department and was started on antibiotics. She came into my office yesterday with increasing pain and redness in the foot. The patient was sent to the emergency department as a direct admission to internal medicine. An MRI was obtained which showed a fluid collection over the dorsum of the foot consistent with either an abscess or hematoma. The patient was seen by infectious disease who recommended a formal incision and drainage and deep cultures. I met with the patient and her and discussed the potential risks and complications of surgery. All of their questions were answered. Operative Findings: There was a large hematoma over the dorsal aspect of the foot. There was no deep purulence or sign of infection. Description of Procedure: The patient was identified in preoperative holding. The right leg was marked with my initials. I reviewed the consent form with the patient and her . All of their questions were answered. The patient was then brought back to the operating room. She was positioned on the OR table where a general anesthetic was administered. Prior to starting surgery timeout was performed identifying the correct patient, operative extremity, and procedure. At this point I performed an ankle aspiration to rule out a septic ankle joint as the cause of her swelling and pain. The anteromedial portal of the ankle was prepped with alcohol and then an 18-gauge needle was sterilely inserted into the ankle. One mL of clear joint fluid was aspirated. The right foot was then prepped and draped in the standard sterile fashion. The leg was elevated for 2 minutes and the tourniquet was inflated to 250 mmHg. I began by outlining a longitudinal incision in line with the fourth ray centered over the area of fluctuance. Skin incision was made with a 15 blade scalpel and dissection was carried down carefully to the subcutaneous tissue with tenotomy scissors. Dissection was carried down through the subcutaneous tissue to the level of the extensor tendons. A large hematoma was evacuated. There was no sign of gross purulence. Swabs were taken for both aerobic and anaerobic cultures. Tissue was sent for cultures. The wound was completely decompressed. Sterile saline was used to irrigate the wound with cystoscopy tubing. No debridement of the wound was performed as there was no nonviable or infected appearing soft tissue. The wound was loosely reapproximated using 3-0 nylon. A 1/2 inch iodoform wick was packed in the wound to help facilitate drainage. The tourniquet was let down. A sterile dressing was applied, the patient was extubated, and the patient was transferred to PACU having taught of the procedure well. Plan: The patient can weight-bear as tolerated in a tall boot. We will remove the iodoform wick over the next several days while we are following her cultures. We'll defer all antibiotic recommendations per infectious disease. There is no sign of deep infection, but we will await the multiple cultures taken intraoperatively.
[2017-11-22] MEDS: SODIUM CHLORIDE 0.9% 1,000 ML IV SCH (17:32)
[2017-11-22] MEDS: CHOLECALCIFEROL 1,000 UNIT TAB PO SCH (18:12)
[2017-11-22] MEDS: ASPIRIN 81 MG PO SCH (18:12)
[2017-11-22] MEDS: FOLIC ACID 1 MG TAB PO SCH (18:12)
[2017-11-22] MEDS: FERROUS SULFATE 325 MG TAB PO SCH (18:13)
[2017-11-22] MEDS: WARFARIN 7.5 MG TAB PO SCH (18:13)
[2017-11-22] MEDS: BACLOFEN 10 MG TAB PO SCH (18:13)
[2017-11-22] MEDS: MONTELUKAST 10 MG TAB PO SCH (18:13)
[2017-11-22] MEDS: LORATADINE 10 MG TAB PO SCH (18:13)
[2017-11-22] MEDS: DIMETHYL FUMARATE 240 MG PO SCH ×2 (18:13→21:03)
[2017-11-22] MEDS: METHYLPHENIDATE HCL 10 MG TAB PO SCH (18:16)
[2017-11-22] MEDS: VANCOMYCIN 1,750 MG in SODIUM CHLORIDE 0.9% 250 ML IVPB SCH (18:18)
--- NOTE | 2017-11-22 20:58 | PN ---
PROGRESS NOTE DATE OF SERVICE: 11/22/2017. REASON FOR FOLLOWUP: Right foot redness with a question of possible abscess versus hematoma. INTERVAL HISTORY: The patient is seen on rounds this afternoon prior to her surgical drainage. The patient denies having any chest pain or shortness of breath or cough. Still complaining of pain to the right foot area, though no worsening. No abdominal pain or any diarrhea. PHYSICAL EXAMINATION: Blood pressure 118/70 with a pulse of 61, temperature 97.8. She is 95% on room air. General description is a middle-aged female lying in bed in no distress. RESPIRATORY SYSTEM: Unlabored breathing. Clear to auscultation anteriorly. HEART: S1, S2. Regular rate and rhythm. ABDOMEN: Soft. No tenderness. Right foot is swollen and less red compared to yesterday. LABS: Hemoglobin is 12.3, white count of 2, BUN of 17, creatinine 0.92. DIAGNOSTIC IMPRESSION AND PLAN: Patient with right foot pain, swelling, redness with a question of possible hematoma versus abscess, failing outpatient Keflex therapy for surgical drainage today. Currently on vancomycin on basis of the culture report. Continue with supportive care. MMODL / IJN: [id number] /
[2017-11-22] MEDS: HYDROcodone/APAP 5-325MG 1 EACH TAB PO PRN (21:03)
[2017-11-22] MEDS: PRAVASTATIN SODIUM 20 MG TAB PO SCH (21:03)
[2017-11-22] MEDS: CITALOPRAM HYDROBROMIDE 20 MG TAB PO SCH (21:03)
[2017-11-23] MEDS: HYDROcodone/APAP 5-325MG 1 EACH TAB PO PRN ×2 (05:41→11:10)
[2017-11-23] MEDS: PANTOPRAZOLE 40 MG TABLET PO SCH (05:41)
[2017-11-23] MEDS: LEVOTHYROXINE 50 MCG TAB PO SCH (05:41)
[2017-11-23] MEDS: FUROSEMIDE 40 MG TAB PO SCH ×2 (07:30→16:42)
[2017-11-23] MEDS: FERROUS SULFATE 325 MG TAB PO SCH (07:30)
[2017-11-23] MEDS: FOLIC ACID 1 MG TAB PO SCH (07:30)
[2017-11-23] MEDS: ASPIRIN 81 MG PO SCH (07:30)
[2017-11-23] MEDS: POTASSIUM CHLORIDE ER 20 MEQ TAB.ER PO SCH ×2 (07:30→16:42)
[2017-11-23] MEDS: CHOLECALCIFEROL 1,000 UNIT TAB PO SCH (07:30)
[2017-11-23] MEDS: METHYLPHENIDATE HCL 10 MG TAB PO SCH (07:30)
[2017-11-23] MEDS: PREGABALIN 100 MG CAP PO SCH ×3 (07:31→20:40)
[2017-11-23] MEDS: DIMETHYL FUMARATE 240 MG PO SCH ×2 (07:31→20:37)
[2017-11-23] MEDS: FLUTICASONE 50MCG/SPRAY NASAL 16GM EA NOSTRIL SCH (07:31)
[2017-11-23 07:57] LABS: Basophils % (A) 0 %; Eosinophils # (A) 0.2 k/uL (0-0.7); Eosinophils % (A) 4 %; HCT 39.9 % (34.0-46.0); HGB 13.2 gm/dL (11.4-16.0); Lymphocytes # (A) 0.4 k/uL (1.0-4.8); Lymphocytes % (A) 10 %; MCHC 32.9 g/dL (31.0-37.0); MCV 91.1 fL (80.0-100.0); Mean Platelet Volume 11.1; Monocytes # (A) 0.3 k/uL (0-1.0); Monocytes % (A) 6 %; Neutrophils # (A) 3.3 k/uL (1.3-7.7); Neutrophils % (A) 78 %; RBC 4.38 m/uL (3.80-5.40); RDW 14.1 % (11.5-15.5); WBC 4.2 k/uL (3.8-10.6)
[2017-11-23 08:19] LABS: INR 1.2 (<1.2); Prothrombin Time 11.8 sec (9.0-12.0)
[2017-11-23 08:24] LABS: Albumin 3.8 g/dL (3.5-5.0); Calcium 9.1 mg/dL (8.4-10.2); Potassium 4.8 mmol/L (3.5-5.1); Total Bilirubin 1.2 mg/dL (0.2-1.3); Total Protein 5.7 g/dL (6.3-8.2)
[2017-11-23 09:46] LABS: Platelet Count 90 k/uL (150-450)
[2017-11-23 09:47] LABS: Anisocytosis (M) Present; Poikilocytosis (M) Present
--- NOTE | 2017-11-23 09:50 | P.PN ---
Subjective Progress Note Date: 11/23/17 Principal diagnosis: Right foot hematoma, pain, swelling, cellulitis Patient is seen at . She is postop day #1 from I&D of her right foot. Intraoperative findings were consistent with a hematoma rather than an abscess. She has pain at the surgical site this morning as expected but denies any new complaints. She denies new numbness or tingling, calf pain, fever, chills, chest pain or shortness of breath. Objective - Vital Signs Vital signs: Vital Signs Temp 98.5 F 11/23/17 07:00 Pulse 55 L 11/23/17 07:00 Resp 20 11/23/17 07:00 BP 115/55 11/23/17 07:00 Pulse Ox 93 L 11/23/17 07:00 Intake & Output 11/22/17 11/23/17 11/23/17 18:59 06:59 18:59 Intake Total 351 700 Output Total 274 2000 600 Balance 77 -1300 -600 Weight 103.419 kg Intake: IV 351 Oral 700 Output: Urine 2000 600 Post Void Residual 269 Estimated Blood Loss 5 Other: Voiding Method Toilet Bedpan Bedpan # Voids 1 1 1 # Bowel Movements 0 0 - Exam Dressing was removed. Nylon sutures are in place at the dorsum of the foot and surgical wound is benign. Iodoform packing in place. There is no active bleeding. There is mild evidence of serosanguineous and bloody drainage. No evidence of purulence or infectious drainage. The foot is warm to touch. 2+ dorsalis pedis pulses present and less than 2 second capillary refill is present. Motor and sensation is intact throughout the foot and all toes. - Constitutional General appearance: Present: no acute distress - Psychiatric Psychiatric: Present: A&O x's 3, appropriate affect, intact judgment & insight - Labs CBC & Chem 7: 11/23/17 07:42 11/23/17 07:42 Labs: Abnormal Lab Results - Last 24 Hours (Table) 11/23/17 11/23/17 Range/Units 07:42 07:42 INR 1.2 H (<1.2) Carbon Dioxide 33 H (22-30) mmol/L Glucose 107 H (74-99) mg/dL AST 37 H (14-36) U/L Total Protein 5.7 L (6.3-8.2) g/dL Microbiology - Last 24 Hours (Table) 11/22/17 16:33 Gram Stain - Preliminary Foot - Right Tissue Culture - Preliminary 11/22/17 16:33 Gram Stain - Preliminary Foot - Right Wound Culture - Preliminary 11/21/17 16:33 Gram Stain - Preliminary Foot - Right Wound Culture - Preliminary 11/21/17 16:33 Anaerobic Culture - Preliminary Foot - Right 11/22/17 16:33 Anaerobic Culture - Preliminary Foot - Right 11/22/17 16:33 Anaerobic Culture - Preliminary Foot - Right 11/20/17 22:21 Blood Culture - Preliminary Blood No Growth after 48 hours Assessment and Plan (1) Cellulitis of right foot Narrative/Plan: She'll continue with routine postoperative orthopedic protocol including pain management, wound care, physical therapy, DVT prophylaxis and medical management. The iodoform packing was removed from the wound which she tolerated well without complication. The wound was redressed with sterile nonadhesive bandage, 4 x 4 and Dung bandage. She may be weightbearing as tolerated. Continue elevation of the right lower extremity. We'll continue to monitor and make further recommendations as appropriate. Current Visit: Yes Status: Acute Priority: Medium Code(s): L03.115 - CELLULITIS OF RIGHT LOWER LIMB SNOMED Code(s): 298027145 Time with Patient: Less than 30
[2017-11-23] MEDS ORDERED: MORPHINE ORAL SOLN 10 MG/5 ML CUP PO PRN (11:21)
[2017-11-23] MEDS: SODIUM CHLORIDE 0.9% 1,000 ML IV SCH (12:04)
[2017-11-23] MEDS ORDERED: IPRATROPIUM-ALBUTEROL 3 ML NEB INHALATION PRN (14:20)
--- NOTE | 2017-11-23 14:21 | P.PN ---
Subjective Progress Note Date: 11/30/17 This is a 62-year-old female with a known past medical history of multiple sclerosis, DVT and PE, hypothyroidism, borderline diabetes mellitus, sleep apnea and hyperlipidemia. Patient presents to the emergency room with complaints of pain and swelling in the right foot. She's found have evidence of cellulitis there is concerns about a possible abscess. She has been admitted to the hospital and placed on IV vancomycin. Orthopedics and infectious disease have been consulted. Orthopedics have ordered an MRI of the foot to rule out an abscess. Patient may require an I&D. White, admission is low at 3.6 platelets 117. Possibly related to infections. Patient initially came into the ER on November 10 for infection of the right foot and was placed on Keflex for 10 days. She completed the antibiotic course with really no improvement. She had a computed tomography scan on November 10 that showed no evidence of osteomyelitis in no acute fracture. There is slight thickening of the second metatarsal could relate to an old fracture. Patient denies any injury to the area. Patient denies any fever or chills or sweats. Denies any chest pain or shortness breath. Denies any nausea or vomiting. Denies any bowel movement changes or urinary symptoms. On 11/22/2017 Patient is alert and oriented in no distress, foot erythema and swelling improving there is no fever or chills, no chest pain or SOB, no cough, no nausea or vomiting no abdominal pain no diarrhea and no urinary symptoms 11/23/2017 patient is complaining of pain in the right foot. Magnolia will be increased from 5 mg to 7.5 mg every 4 hours as needed for pain. Patient denies any chest pain or shortness of breath. Denies any nausea or vomiting. Orthopedics and infectious disease are following. INR subtherapeutic at 1.2 she 'll receive Coumadin 10 mg tonight. Further Coumadin dosing per PT/INR tomorrow Objective - Vital Signs Vital signs: Vital Signs Temp 98.5 F 11/23/17 07:00 Pulse 55 L 11/23/17 07:00 Resp 20 11/23/17 07:00 BP 115/55 11/23/17 07:00 Pulse Ox 93 L 11/23/17 07:00 Intake & Output 11/22/17 11/23/17 11/23/17 18:59 06:59 18:59 Intake Total 351 700 120 Output Total 274 1999 Balance 44 -4730 -251 Weight 103.419 kg Intake: IV 351 Oral 700 120 Output: Urine 1999 600 Post Void Residual 269 Estimated Blood Loss 5 Other: Voiding Method Toilet Bedpan Bedpan # Voids 1 1 1 # Bowel Movements 0 0 - Exam Head normocephalic Neck supple Lungs mild wheezing bilaterally which did improve with cough Heart regular rate and rhythm S1-S2, no rub or gallop Abdomen is soft nontender nondistended positive bowel sounds no hepatosplenomegaly Extremities right foot erythema present on minimal dried blood on dressing Neuro alert and orientated to 3 - Labs CBC & Chem 7: 11/23/17 07:42 11/23/17 07:42 Labs: Abnormal Lab Results - Last 24 Hours (Table) 11/23/17 11/23/17 11/23/17 Range/Units 07:42 07:42 07:42 Plt Count 90 L (150-450) k/uL Lymphocytes # 0.4 L (1.0-4.8) k/uL INR 1.2 H (<1.2) Carbon Dioxide 33 H (22-30) mmol/L Glucose 107 H (74-99) mg/dL AST 37 H (14-36) U/L Total Protein 5.7 L (6.3-8.2) g/dL Microbiology - Last 24 Hours (Table) 11/22/17 16:33 Gram Stain - Preliminary Foot - Right Tissue Culture - Preliminary 11/22/17 16:33 Gram Stain - Preliminary Foot - Right Wound Culture - Preliminary 11/21/17 16:33 Gram Stain - Preliminary Foot - Right Wound Culture - Preliminary 11/21/17 16:33 Anaerobic Culture - Preliminary Foot - Right 11/22/17 16:33 Anaerobic Culture - Preliminary Foot - Right 11/22/17 16:33 Anaerobic Culture - Preliminary Foot - Right 11/20/17 22:21 Blood Culture - Preliminary Blood No Growth after 48 hours Assessment and Plan Assessment: 1. Right foot cellulitis with hematoma and possible abscess: Status post I&D. Orthopedics following. Continue IV vancomycin per infectious disease 4. Hypokalemia patient received potassium supplement 5. History of PE and DVT maintained on Coumadin . INR 1.2. Give Coumadin 10 mg tonight. Check PT/INR in a.m. and adjust Coumadin accordingly 6. Pain control: INCREASED NORCO TO 7.5 MG EVERY 4 HOURS. CONTINUE FENTANYL PATCH 7. History of borderline diabetic add sliding scale coverage 8. Wheezing: Check chest x-ray: Add nebulizer treatments as needed for wheezing. Add incentive spirometer for possible atelectasis GI prophylaxis per tonics and DVT prophylaxis Coumadin I performed an examination of the patient and discussed their management with the physician Elderly Companion. I have reviewed the Physician Elderly Companion's notes and agree with the documented findings and plan of care
--- NOTE | 2017-11-23 15:32 | XR ---
EXAMINATION TYPE: XR chest 2V DATE OF EXAM: 11/23/2017 COMPARISON: 11/23/2017 HISTORY: Wheezing TECHNIQUE: Frontal and lateral views of the chest are obtained. FINDINGS: There is pulmonary hypoinflation accentuating the pulmonary vasculature. Right midlung sarath ear opacity likely relates to atelectasis. Chronic right hemidiaphragm elevation is noted, unchanged from the prior. There is no focal air space opacity, pleural effusion, or pneumothorax seen. The car diac silhouette size is enlarged and stable. The osseous structures are intact. IMPRESSION: New right lower lung linear atelectasis. Pulmonary hypoventilation with no focal consoli dation to suggest pneumonia.
[2017-11-23] MEDS: VANCOMYCIN 1,750 MG in SODIUM CHLORIDE 0.9% 250 ML IVPB SCH (16:41)
[2017-11-23] MEDS: BACLOFEN 10 MG TAB PO SCH (16:42)
[2017-11-23] MEDS: MONTELUKAST 10 MG TAB PO SCH (16:42)
[2017-11-23] MEDS: LORATADINE 10 MG TAB PO SCH (16:42)
[2017-11-23] MEDS ORDERED: WARFARIN 10 MG TAB PO ONE (18:00)
[2017-11-23] MEDS: PRAVASTATIN SODIUM 20 MG TAB PO SCH (20:37)
[2017-11-23] MEDS: CITALOPRAM HYDROBROMIDE 20 MG TAB PO SCH (20:37)
--- NOTE | 2017-11-23 21:11 | PN ---
PROGRESS NOTE DATE OF SERVICE: 11/23/2017. REASON FOR FOLLOWUP: Right foot hematoma and a question of possible infection. INTERVAL HISTORY: The patient is afebrile. She is complaining of throbbing pain to the right foot area. Denies having any chest pain, shortness of breath or cough or any abdominal pain. EXAMINATION: Blood pressure 124/60, pulse of 67, temperature 98.2. She is 95% on room air. General description is a middle-aged female lying in bed in no distress. RESPIRATORY SYSTEM: Unlabored breathing. Clear to auscultation anteriorly. HEART: S1, S2. Regular rate and rhythm. ABDOMEN: Soft. No tenderness. Right foot dorsum swelling and redness have slightly decreased. No drainage was noticed. LABS: Hemoglobin is 13.2, white count of 4.2. BUN of 15, creatinine 0.97. Cultures are currently pending. DIAGNOSTIC IMPRESSION AND PLAN: Patient with right foot dorsum hematoma with question of possible secondary to infection, status post drainage, was mostly suspicious for a hematoma. We will wait for the culture to finalize. If the culture remains negative, antibiotic will be discontinued. Continue supportive care. MMODL / IJN: [id number] /
[2017-11-24] MEDS: LEVOTHYROXINE 50 MCG TAB PO SCH (06:06)
[2017-11-24] MEDS: PANTOPRAZOLE 40 MG TABLET PO SCH (06:06)
[2017-11-24 07:45] LABS: Basophils % (A) 0 %; Eosinophils # (A) 0.1 k/uL (0-0.7); Eosinophils % (A) 3 %; HCT 35.4 % (34.0-46.0); HGB 12.2 gm/dL (11.4-16.0); Lymphocytes # (A) 0.5 k/uL (1.0-4.8); Lymphocytes % (A) 14 %; MCHC 34.4 g/dL (31.0-37.0); MCV 89.9 fL (80.0-100.0); Mean Platelet Volume 9.9; Monocytes # (A) 0.2 k/uL (0-1.0); Monocytes % (A) 7 %; Neutrophils # (A) 2.4 k/uL (1.3-7.7); Neutrophils % (A) 74 %; RBC 3.94 m/uL (3.80-5.40); RDW 14.3 % (11.5-15.5); WBC 3.3 k/uL (3.8-10.6)
[2017-11-24 07:59] LABS: Platelet Count 83 k/uL (150-450)
[2017-11-24 08:04] LABS: Albumin 3.3 g/dL (3.5-5.0); Calcium 8.5 mg/dL (8.4-10.2); Potassium 3.7 mmol/L (3.5-5.1); Total Bilirubin 0.8 mg/dL (0.2-1.3); Total Protein 5.1 g/dL (6.3-8.2)
[2017-11-24 08:08] LABS: INR 1.5 (<1.2); Prothrombin Time 13.6 sec (9.0-12.0)
[2017-11-24] MEDS: FUROSEMIDE 40 MG TAB PO SCH ×2 (08:58→15:57)
[2017-11-24] MEDS: POTASSIUM CHLORIDE ER 20 MEQ TAB.ER PO SCH ×2 (08:58→15:58)
[2017-11-24] MEDS: FERROUS SULFATE 325 MG TAB PO SCH (08:58)
[2017-11-24] MEDS: FOLIC ACID 1 MG TAB PO SCH (08:58)
[2017-11-24] MEDS: METHYLPHENIDATE HCL 10 MG TAB PO SCH (08:58)
[2017-11-24] MEDS: CHOLECALCIFEROL 1,000 UNIT TAB PO SCH (08:58)
[2017-11-24] MEDS: FLUTICASONE 50MCG/SPRAY NASAL 16GM EA NOSTRIL SCH (08:59)
[2017-11-24] MEDS: ASPIRIN 81 MG PO SCH (08:59)
[2017-11-24] MEDS: DIMETHYL FUMARATE 240 MG PO SCH ×2 (08:59→21:45)
[2017-11-24] MEDS: PREGABALIN 100 MG CAP PO SCH ×3 (09:01→21:48)
[2017-11-24] MEDS: SODIUM CHLORIDE 0.9% 1,000 ML IV SCH (09:01)
--- NOTE | 2017-11-24 14:35 | P.PN ---
Subjective Progress Note Date: 11/24/17 No events overnight Objective - Vital Signs Vital signs: Vital Signs Temp 98.5 F 11/24/17 07:40 Pulse 61 11/24/17 07:40 Resp 16 11/24/17 07:40 BP 94/58 11/24/17 07:40 Pulse Ox 93 L 11/23/17 23:00 Intake & Output 11/23/17 11/24/17 11/24/17 18:59 06:59 18:59 Intake Total 120 100 Output Total 600 Balance -480 100 Intake: Oral 120 100 Output: Urine 600 Other: Voiding Method Bedpan # Voids 1 1 # Bowel Movements 0 - Exam General: The patient is awake and alert, in no distress Eye: there is normal conjunctiva bilaterally. Neck: The neck is supple, there is no JVD. Cardiovascular: Normal S1-S2, no S3-S4, no murmurs. Respiratory: Lungs clear to auscultation bilaterally Gastrointestinal: Abdomen is soft, nontender Musculoskeletal: There is +1 pedal edema. Neurological:. Speech is normal. Skin: Skin is warm and dry - Labs CBC & Chem 7: 11/24/17 07:30 11/24/17 07:30 Labs: Abnormal Lab Results - Last 24 Hours (Table) 11/24/17 11/24/17 11/24/17 Range/Units 07:30 07:30 07:30 WBC 3.3 L (3.8-10.6) k/uL Plt Count 83 L (150-450) k/uL Lymphocytes # 0.5 L (1.0-4.8) k/uL PT 13.6 H (9.0-12.0) sec INR 1.5 H (<1.2) Glucose 152 H (74-99) mg/dL Total Protein 5.1 L (6.3-8.2) g/dL Albumin 3.3 L (3.5-5.0) g/dL Microbiology - Last 24 Hours (Table) 11/20/17 22:21 Blood Culture - Preliminary Blood No Growth after 72 hours 11/22/17 16:33 Gram Stain - Preliminary Foot - Right Wound Culture - Preliminary 11/22/17 16:33 Gram Stain - Preliminary Foot - Right Tissue Culture - Preliminary Assessment and Plan Assessment: 1. Right foot cellulitis with hematoma and possible abscess: Status post I&D. Orthopedics following. Continue IV vancomycin per infectious disease. Awaiting culture to finalize 4. Hypokalemia: Replace 5. History of PE and DVT maintained on Coumadin 6. Pain control: INCREASED NORCO TO 7.5 MG EVERY 4 HOURS. CONTINUE FENTANYL PATCH 7. History of borderline diabetic add sliding scale coverage GI prophylaxis per tonics and DVT prophylaxis Coumadin
[2017-11-24 14:50] VITALS: BMI 37.9
[2017-11-24] MEDS ORDERED: VANCOMYCIN TROUGH DUE 1 EACH MISC MISCELLANE ONE (15:00)
[2017-11-24] MEDS: VANCOMYCIN 1,750 MG in SODIUM CHLORIDE 0.9% 250 ML IVPB SCH (15:56)
[2017-11-24] MEDS: MONTELUKAST 10 MG TAB PO SCH (15:57)
[2017-11-24] MEDS: BACLOFEN 10 MG TAB PO SCH (15:58)
[2017-11-24] MEDS: LORATADINE 10 MG TAB PO SCH (15:58)
[2017-11-24] MEDS: HYDROcodone/APAP 7.5-325MG 1 EACH TAB PO PRN ×2 (16:04→21:48)
[2017-11-24] MEDS: WARFARIN 5 MG TAB PO SCH (16:55)
--- NOTE | 2017-11-24 17:38 | PN ---
PROGRESS NOTE DATE OF SERVICE: 11/24/2017. REASON FOR FOLLOW UP: Right foot hematoma and a question of abscess. INTERVAL HISTORY: The patient did spike a low grade fever of 100.2 last night. The patient afebrile since then. She is complaining of pain to the right foot area. Though breathing comfortably. Some chest pain. No cough. No abdominal pain. No diarrhea. EXAMINATION: Blood pressure is 94/58 with a pulse of 61, temperature 98.5. She is 94% on room air. General description is a middle aged female, lying in bed in no distress. Respiratory system: Unlabored breathing. Clear to auscultation anteriorly. Heart S1, S2. Regular rate and rhythm. ABDOMEN: Soft, no tenderness. Right foot currently dressed up. LABS: Hemoglobin 12.2, white count 3.3 with a BUN of 15, creatinine 0.95. Cultures so far negative. DIAGNOSTIC IMPRESSION AND PLAN: Patient right foot likely hematoma less likely infected hematoma. Still waiting for the culture to finalize if those are negative, Vanco can be safely discontinued. Continue supportive care. MMODL / IJN: [id number] /
[2017-11-24] MEDS: CITALOPRAM HYDROBROMIDE 20 MG TAB PO SCH (21:45)
[2017-11-24] MEDS: PRAVASTATIN SODIUM 20 MG TAB PO SCH (21:45)
[2017-11-25] MEDS: HYDROcodone/APAP 7.5-325MG 1 EACH TAB PO PRN ×4 (06:22→20:36)
[2017-11-25] MEDS: PANTOPRAZOLE 40 MG TABLET PO SCH (06:22)
[2017-11-25] MEDS: LEVOTHYROXINE 50 MCG TAB PO SCH (06:22)
[2017-11-25] MEDS: POTASSIUM CHLORIDE ER 20 MEQ TAB.ER PO SCH ×2 (08:25→16:56)
[2017-11-25] MEDS: FUROSEMIDE 40 MG TAB PO SCH ×2 (08:25→16:56)
[2017-11-25] MEDS: PREGABALIN 100 MG CAP PO SCH ×3 (08:25→20:36)
[2017-11-25] MEDS: ASPIRIN 81 MG PO SCH (08:25)
[2017-11-25] MEDS: FOLIC ACID 1 MG TAB PO SCH (08:25)
[2017-11-25] MEDS: METHYLPHENIDATE HCL 10 MG TAB PO SCH (08:25)
[2017-11-25] MEDS: FERROUS SULFATE 325 MG TAB PO SCH ×2 (08:25→08:39)
[2017-11-25] MEDS: CHOLECALCIFEROL 1,000 UNIT TAB PO SCH (08:25)
[2017-11-25] MEDS: FLUTICASONE 50MCG/SPRAY NASAL 16GM EA NOSTRIL SCH (08:30)
[2017-11-25] MEDS: DIMETHYL FUMARATE 240 MG PO SCH ×2 (08:40→20:37)
[2017-11-25 08:51] LABS: INR 1.5 (<1.2); Prothrombin Time 14.3 sec (9.0-12.0)
[2017-11-25 08:52] LABS: Basophils % (A) 1 %; Eosinophils # (A) 0.1 k/uL (0-0.7); Eosinophils % (A) 5 %; HCT 35.1 % (34.0-46.0); HGB 11.8 gm/dL (11.4-16.0); Lymphocytes # (A) 0.5 k/uL (1.0-4.8); Lymphocytes % (A) 22 %; MCH 30.2 pg (25.0-35.0); MCHC 33.6 g/dL (31.0-37.0); MCV 89.9 fL (80.0-100.0); Mean Platelet Volume 10.1; Monocytes # (A) 0.2 k/uL (0-1.0); Monocytes % (A) 8 %; Neutrophils # (A) 1.3 k/uL (1.3-7.7); Neutrophils % (A) 61 %; RDW 14.2 % (11.5-15.5); WBC 2.2 k/uL (3.8-10.6)
[2017-11-25 08:58] LABS: Platelet Count 90 k/uL (150-450)
[2017-11-25 09:01] LABS: Albumin 3.1 g/dL (3.5-5.0); Calcium 8.7 mg/dL (8.4-10.2); Potassium 3.7 mmol/L (3.5-5.1); Total Bilirubin 0.7 mg/dL (0.2-1.3); Total Protein 5.1 g/dL (6.3-8.2)
--- NOTE | 2017-11-25 09:45 | P.PN ---
Subjective Progress Note Date: 11/25/17 Principal diagnosis: Status post I&D right foot This is a 62 year-old female post I&D right foot. This is post-op day 3. The patient was evaluated at the bedside today. The patient denies fever, chills, rigors, nausea, vomiting, abdominal pain, shortness of breath, and chest pain this morning. She states her pain is moderately controlled at this time. The patient has not been up out of bed according to the patient. Objective - Vital Signs Vital signs: Vital Signs Temp 97.0 F L 11/25/17 06:19 Pulse 76 11/25/17 06:19 Resp 16 11/25/17 06:19 BP 113/59 11/25/17 06:19 Pulse Ox 96 11/25/17 06:19 Intake & Output 11/24/17 11/25/17 11/25/17 18:59 06:59 18:59 Intake Total 400 Balance 400 Weight 103.419 kg Intake: Intake, IV Titration 400 Amount Sodium Chloride 0.9% 1, 400 000 ml @ 50 mls/hr IV . Q20H [facility] Rx#:[id number] Other: Voiding Method Bedpan # Voids 1 - Exam The patient does not appear in acute distress. Alert and orientated x2. Dressing is clean dry and intact. Incision appears fine with no active drainage. There is a dark redness to the dorsum of the foot. Ecchymosis is present. No purluent drainage noted. There is iodoform packing in place which was not removed. Calf is soft and nontender. Limited foot and ankle motion due to pain and guarding. She is able to wiggle her toes. Sensation and circulatory status is intact. - Labs CBC & Chem 7: 11/25/17 08:05 11/25/17 08:05 Labs: Abnormal Lab Results - Last 24 Hours (Table) 11/25/17 11/25/17 11/25/17 Range/Units 08:05 08:05 08:05 WBC 2.2 L (3.8-10.6) k/uL Plt Count 90 L (150-450) k/uL Lymphocytes # 0.5 L (1.0-4.8) k/uL PT 14.3 H (9.0-12.0) sec INR 1.5 H (<1.2) Glucose 123 H (74-99) mg/dL Total Protein 5.1 L (6.3-8.2) g/dL Albumin 3.1 L (3.5-5.0) g/dL Microbiology - Last 24 Hours (Table) 11/20/17 22:21 Blood Culture - Preliminary Blood No Growth after 96 hours 11/21/17 16:33 Anaerobic Culture - Preliminary Foot - Right 11/22/17 16:33 Gram Stain - Final Foot - Right Tissue Culture - Preliminary Coagulase Negative Staph 11/21/17 16:33 Gram Stain - Final Foot - Right Wound Culture - Final 11/22/17 16:33 Gram Stain - Final Foot - Right Wound Culture - Final Assessment and Plan (1) Cellulitis of right foot Current Visit: Yes Status: Acute Priority: Medium Code(s): L03.115 - CELLULITIS OF RIGHT LOWER LIMB SNOMED Code(s): 817187692 (2) Hematoma Current Visit: No Status: Acute Code(s): T14.8XXA - OTHER INJURY OF UNSPECIFIED BODY REGION, INITIAL ENCOUNTER SNOMED Code(s): 364051052 Plan: The clinical findings were discussed with the patient. Continue pain management. Continue antibiotics per infectious disease. PT and OT will be ordered today. Continue daily dressing changes. We will continue to follow patient and make further recommendations as needed.
--- NOTE | 2017-11-25 14:16 | P.PN ---
Subjective No events overnight Objective - Vital Signs Vital signs: Vital Signs Temp 97.0 F L 11/25/17 06:19 Pulse 76 11/25/17 06:19 Resp 16 11/25/17 06:19 BP 113/59 11/25/17 06:19 Pulse Ox 96 11/25/17 06:19 Intake & Output 11/24/17 11/25/17 11/25/17 18:59 06:59 18:59 Intake Total 400 320 Output Total 600 Balance 400 -280 Weight 103.419 kg Intake: Intake, IV Titration 400 Amount Sodium Chloride 0.9% 1, 400 000 ml @ 50 mls/hr IV . Q20H [facility] Rx#:[id number] Oral 320 Output: Urine 600 Other: Voiding Method Bedpan # Voids 1 1 - Exam General: The patient is awake and alert, in no distress Eye: there is normal conjunctiva bilaterally. Neck: The neck is supple, there is no JVD. Cardiovascular: Normal S1-S2, no S3-S4, no murmurs. Respiratory: Lungs clear to auscultation bilaterally Gastrointestinal: Abdomen is soft, nontender Musculoskeletal: There is +1 pedal edema. Neurological:. Speech is normal. Skin: Skin is warm and dry - Labs CBC & Chem 7: 11/25/17 08:05 11/25/17 08:05 Labs: Abnormal Lab Results - Last 24 Hours (Table) 11/25/17 11/25/17 11/25/17 Range/Units 08:05 08:05 08:05 WBC 2.2 L (3.8-10.6) k/uL Plt Count 90 L (150-450) k/uL Lymphocytes # 0.5 L (1.0-4.8) k/uL PT 14.3 H (9.0-12.0) sec INR 1.5 H (<1.2) Glucose 123 H (74-99) mg/dL Total Protein 5.1 L (6.3-8.2) g/dL Albumin 3.1 L (3.5-5.0) g/dL Microbiology - Last 24 Hours (Table) 11/20/17 22:21 Blood Culture - Preliminary Blood No Growth after 96 hours 11/21/17 16:33 Anaerobic Culture - Preliminary Foot - Right 11/22/17 16:33 Gram Stain - Final Foot - Right Tissue Culture - Preliminary Coagulase Negative Staph 11/21/17 16:33 Gram Stain - Final Foot - Right Wound Culture - Final 11/22/17 16:33 Gram Stain - Final Foot - Right Wound Culture - Final Assessment and Plan Assessment: 1. Right foot cellulitis with hematoma and possible abscess: Status post I&D. Orthopedics following. Continue IV vancomycin per infectious disease. Awaiting culture to finalize 4. Hypokalemia: Replace 5. History of PE and DVT maintained on Coumadin 6. Pain control: INCREASED NORCO TO 7.5 MG EVERY 4 HOURS. CONTINUE FENTANYL PATCH 7. History of borderline diabetic add sliding scale coverage GI prophylaxis per tonics and DVT prophylaxis Coumadin
--- NOTE | 2017-11-25 15:34 | PN ---
PROGRESS NOTE DATE OF SERVICE: 11/25/2017. REASON FOR FOLLOWUP: Right foot wound and cellulitis. INTERVAL HISTORY: The patient is afebrile. She is breathing comfortably. Still complaining of pain to the right foot area and thinks there is something in there. Denies having any chest pain, shortness of breath or cough. No abdominal pain. EXAMINATION: Blood pressure 113/59, pulse of 73, temperature 97. She is 98% on room air. General description is an elderly female lying in bed in no distress. Respiratory system: Unlabored breathing. Clear to auscultation anteriorly. Heart S1, S2. Regular rate and rhythm. Abdomen soft, no tenderness. Right foot dorsum aspect overall swelling and redness has decreased. No drainage was noted. LABS: White count 2.2, BUN of 15, creatinine 0.88. Wound culture showing coag-negative staph. DIAGNOSTIC IMPRESSION/PLAN: Patient with a right foot likely hematoma. Clinical suspicion for an abscess. Culture with coag negative Staph more likely skin raven. Currently on Vanco that can be discontinued if the culture remains to be negative. Continue supportive care. MMODL / IJN: [id number] /
[2017-11-25] MEDS: VANCOMYCIN 1,750 MG in SODIUM CHLORIDE 0.9% 250 ML IVPB SCH (16:41)
[2017-11-25] MEDS: BACLOFEN 10 MG TAB PO SCH (16:56)
[2017-11-25] MEDS: WARFARIN 5 MG TAB PO SCH (16:56)
[2017-11-25] MEDS: LORATADINE 10 MG TAB PO SCH (16:56)
[2017-11-25] MEDS: MONTELUKAST 10 MG TAB PO SCH (16:56)
[2017-11-25] MEDS: PRAVASTATIN SODIUM 20 MG TAB PO SCH (20:36)
[2017-11-25] MEDS: CITALOPRAM HYDROBROMIDE 20 MG TAB PO SCH (20:36)
[2017-11-26] MEDS: LEVOTHYROXINE 50 MCG TAB PO SCH (06:15)
[2017-11-26] MEDS: HYDROcodone/APAP 7.5-325MG 1 EACH TAB PO PRN ×2 (06:15→21:02)
[2017-11-26] MEDS: PANTOPRAZOLE 40 MG TABLET PO SCH (06:15)
[2017-11-26] MEDS: ASPIRIN 81 MG PO SCH (08:09)
[2017-11-26] MEDS: CHOLECALCIFEROL 1,000 UNIT TAB PO SCH (08:09)
[2017-11-26] MEDS: FOLIC ACID 1 MG TAB PO SCH (08:09)
[2017-11-26] MEDS: POTASSIUM CHLORIDE ER 20 MEQ TAB.ER PO SCH ×2 (08:10→16:50)
[2017-11-26] MEDS: FUROSEMIDE 40 MG TAB PO SCH ×2 (08:10→16:50)
[2017-11-26] MEDS: FLUTICASONE 50MCG/SPRAY NASAL 16GM EA NOSTRIL SCH (08:11)
[2017-11-26] MEDS: METHYLPHENIDATE HCL 10 MG TAB PO SCH (08:17)
[2017-11-26] MEDS: PREGABALIN 100 MG CAP PO SCH ×3 (08:17→20:44)
[2017-11-26] MEDS: DIMETHYL FUMARATE 240 MG PO SCH ×2 (08:30→20:44)
[2017-11-26] MEDS: FERROUS SULFATE 325 MG TAB PO SCH (08:43)
--- NOTE | 2017-11-26 09:15 | P.PN ---
Subjective Progress Note Date: 11/26/17 Principal diagnosis: Status post I&D right foot This is a 62 year-old female post I&D right foot. This is post-op day 4. The patient was evaluated at the bedside today. The patient denies fever, chills, rigors, nausea, vomiting, abdominal pain, shortness of breath, and chest pain this morning. She states her pain is moderately controlled at this time. The patient was up with physical therapy this morning. Objective - Vital Signs Vital signs: Vital Signs Temp 97.1 F L 11/26/17 06:29 Pulse 62 11/26/17 06:29 Resp 16 11/26/17 06:29 BP 98/57 11/26/17 06:29 Pulse Ox 94 L 11/26/17 06:29 Intake & Output 11/25/17 11/26/17 11/26/17 18:59 06:59 18:59 Intake Total 320 120 Output Total 600 Balance -280 120 Intake: Oral 320 120 Output: Urine 600 Other: Voiding Method Bedpan # Voids 1 1 - Exam The patient does not appear in acute distress. Alert and orientated x2. Dressing is clean dry and intact. Incision appears fine with no active drainage. There is improving dark redness to the dorsum of the foot. Ecchymosis is present. No purluent drainage noted. There is iodoform packing in place, that was changed today. Calf is soft and nontender. Limited foot and ankle motion due to pain and guarding. She is able to wiggle her toes. Sensation and circulatory status is intact. - Labs CBC & Chem 7: 11/25/17 08:05 11/25/17 08:05 Labs: Microbiology - Last 24 Hours (Table) 11/20/17 22:21 Blood Culture - Preliminary Blood No Growth after 120 hours 11/22/17 16:33 Anaerobic Culture - Preliminary Foot - Right 11/22/17 16:33 Gram Stain - Final Foot - Right Tissue Culture - Preliminary Staphylococcus epidermidis Assessment and Plan (1) Cellulitis of right foot Current Visit: Yes Status: Acute Priority: Medium Code(s): L03.115 - CELLULITIS OF RIGHT LOWER LIMB SNOMED Code(s): 384793045 (2) Hematoma Current Visit: No Status: Acute Code(s): T14.8XXA - OTHER INJURY OF UNSPECIFIED BODY REGION, INITIAL ENCOUNTER SNOMED Code(s): 900597333 Plan: The clinical findings were discussed with the patient. Continue pain management. Continue antibiotics per infectious disease. Continue ambulation as tolerated. Continue daily dressing changes. We will sign off at this time. She will follow up with Dr. Skinner in 1 week in our office.
[2017-11-26] MEDS: VANCOMYCIN 1,750 MG in SODIUM CHLORIDE 0.9% 250 ML IVPB SCH (15:46)
--- NOTE | 2017-11-26 16:37 | P.PN ---
Subjective No events overnight Objective - Vital Signs Vital signs: Vital Signs Temp 97.1 F L 11/26/17 06:29 Pulse 62 11/26/17 06:29 Resp 16 11/26/17 15:43 BP 98/57 11/26/17 06:29 Pulse Ox 94 L 11/26/17 06:29 Intake & Output 11/25/17 11/26/17 11/26/17 18:59 06:59 18:59 Intake Total 320 120 Output Total 600 Balance -280 120 Intake: Oral 320 120 Output: Urine 600 Other: Voiding Method Bedpan # Voids 1 1 1 - Exam General: The patient is awake and alert, in no distress Eye: there is normal conjunctiva bilaterally. Neck: The neck is supple, there is no JVD. Cardiovascular: Normal S1-S2, no S3-S4, no murmurs. Respiratory: Lungs clear to auscultation bilaterally Gastrointestinal: Abdomen is soft, nontender Musculoskeletal: There is +1 pedal edema. Neurological:. Speech is normal. Skin: Skin is warm and dry - Labs CBC & Chem 7: 11/25/17 08:05 11/25/17 08:05 Labs: Microbiology - Last 24 Hours (Table) 11/20/17 22:21 Blood Culture - Preliminary Blood No Growth after 120 hours 11/22/17 16:33 Anaerobic Culture - Preliminary Foot - Right 11/22/17 16:33 Gram Stain - Final Foot - Right Tissue Culture - Preliminary Staphylococcus epidermidis Assessment and Plan Assessment: 1. Right foot cellulitis with hematoma and possible abscess: Status post I&D. Orthopedics following. Continue IV vancomycin per infectious disease. Awaiting culture to finalize 4. Hypokalemia: Replace 5. History of PE and DVT maintained on Coumadin 6. Pain control: INCREASED NORCO TO 7.5 MG EVERY 4 HOURS. CONTINUE FENTANYL PATCH 7. History of borderline diabetic add sliding scale coverage GI prophylaxis per tonics and DVT prophylaxis Coumadin
[2017-11-26] MEDS: BACLOFEN 10 MG TAB PO SCH (16:50)
[2017-11-26] MEDS: WARFARIN 5 MG TAB PO SCH (16:50)
[2017-11-26] MEDS: MONTELUKAST 10 MG TAB PO SCH (16:50)
[2017-11-26] MEDS: LORATADINE 10 MG TAB PO SCH (16:50)
--- NOTE | 2017-11-26 16:59 | PN ---
PROGRESS NOTE DATE OF SERVICE: 11/26/2017. REASON FOR FOLLOWUP: Right foot cellulitis and question of possible abscess. INTERVAL HISTORY: The patient is afebrile. She is currently breathing comfortably. Denies any chest pain, shortness of breath, cough or abdominal pain. She is complaining of pain to the right foot area and apparently no improvement. EXAMINATION: Blood pressure 98/57 with a pulse of 62, temperature 97.1. She is 94% on room air. General description is a middle aged female lying in bed in no distress. Respiratory system: Unlabored breathing. Clear to auscultation anteriorly. Heart S1, S2. Regular rate and rhythm. Abdomen soft. No tenderness. Right foot is currently dressed up. No obvious drainage on the dressing. Overall swelling and erythema slightly decreased. LABS: Hemoglobin 11.8, white count 2.2 with a BUN of 15, creatinine 0.88. Cultures with Streptococcus epidermidis. DIAGNOSTIC IMPRESSION AND PLAN: Patient with right foot hematoma, less likely an abscess status post drainage. The patient currently has no fever or elevated white count. We will switch her antibiotic therapy to doxycycline 100 mg b.i.d. and discontinue the vancomycin watching her course closely. Continue supportive care. MMODL / IJN: [id number] /
[2017-11-26] MEDS: CITALOPRAM HYDROBROMIDE 20 MG TAB PO SCH (20:44)
[2017-11-26] MEDS: PRAVASTATIN SODIUM 20 MG TAB PO SCH (20:44)
[2017-11-27] MEDS: PANTOPRAZOLE 40 MG TABLET PO SCH (06:27)
[2017-11-27] MEDS: LEVOTHYROXINE 50 MCG TAB PO SCH (06:27)
[2017-11-27 08:21] LABS: Potassium 4.2 mmol/L (3.5-5.1)
[2017-11-27] MEDS: CHOLECALCIFEROL 1,000 UNIT TAB PO SCH (08:59)
[2017-11-27] MEDS: DIMETHYL FUMARATE 240 MG PO SCH ×2 (08:59→21:42)
[2017-11-27] MEDS: ASPIRIN 81 MG PO SCH (08:59)
[2017-11-27] MEDS: FLUTICASONE 50MCG/SPRAY NASAL 16GM EA NOSTRIL SCH (09:00)
[2017-11-27] MEDS: FOLIC ACID 1 MG TAB PO SCH (09:01)
[2017-11-27] MEDS: FUROSEMIDE 40 MG TAB PO SCH ×2 (09:01→17:01)
[2017-11-27] MEDS: POTASSIUM CHLORIDE ER 20 MEQ TAB.ER PO SCH ×2 (09:02→17:01)
[2017-11-27] MEDS: PREGABALIN 100 MG CAP PO SCH ×3 (09:05→21:44)
[2017-11-27] MEDS: FERROUS SULFATE 325 MG TAB PO SCH (09:05)
[2017-11-27] MEDS: METHYLPHENIDATE HCL 10 MG TAB PO SCH (09:05)
[2017-11-27 14:42] LABS: INR 1.5 (<1.2); Prothrombin Time 14.2 sec (9.0-12.0)
--- NOTE | 2017-11-27 15:09 | P.PN ---
Subjective No events overnight Objective - Vital Signs Vital signs: Vital Signs Temp 97.0 F L 11/27/17 07:00 Pulse 53 L 11/27/17 07:00 Resp 20 11/27/17 07:00 BP 96/62 11/27/17 07:00 Pulse Ox 95 11/27/17 07:00 Intake & Output 11/26/17 11/27/17 11/27/17 18:59 06:59 18:59 Intake Total 120 Balance 120 Intake: Oral 120 Other: # Voids 1 2 1 - Exam General: The patient is awake and alert, in no distress Eye: there is normal conjunctiva bilaterally. Neck: The neck is supple, there is no JVD. Cardiovascular: Normal S1-S2, no S3-S4, no murmurs. Respiratory: Lungs clear to auscultation bilaterally Gastrointestinal: Abdomen is soft, nontender Musculoskeletal: There is +1 pedal edema. Neurological:. Speech is normal. Skin: Skin is warm and dry - Labs CBC & Chem 7: 11/25/17 08:05 11/27/17 07:41 Labs: Abnormal Lab Results - Last 24 Hours (Table) 11/27/17 11/27/17 Range/Units 07:41 14:17 PT 14.2 H (9.0-12.0) sec INR 1.5 H (<1.2) Carbon Dioxide 32 H (22-30) mmol/L Creatinine 1.07 H (0.52-1.04) mg/dL Glucose 101 H (74-99) mg/dL Microbiology - Last 24 Hours (Table) 11/20/17 22:21 Blood Culture - Final Blood No Growth after 144 hours 11/22/17 16:33 Gram Stain - Final Foot - Right Tissue Culture - Final Staphylococcus epidermidis 11/22/17 16:33 Anaerobic Culture - Final Foot - Right 11/21/17 16:33 Anaerobic Culture - Final Foot - Right 11/22/17 16:33 Anaerobic Culture - Final Foot - Right Assessment and Plan Assessment: 1. Right foot cellulitis with hematoma and possible abscess: Status post I&D. Orthopedics following. Continue IV vancomycin per infectious disease. Awaiting culture to finalize 4. Hypokalemia: Replace 5. History of PE and DVT maintained on Coumadin 6. Pain control: INCREASED NORCO TO 7.5 MG EVERY 4 HOURS. CONTINUE FENTANYL PATCH 7. History of borderline diabetic add sliding scale coverage GI prophylaxis per tonics and DVT prophylaxis Coumadin
[2017-11-27] MEDS ORDERED: WARFARIN 5 MG TAB PO SCH (17:00)
[2017-11-27] MEDS: MONTELUKAST 10 MG TAB PO SCH (17:01)
[2017-11-27] MEDS: BACLOFEN 10 MG TAB PO SCH (17:01)
[2017-11-27] MEDS: WARFARIN 5 MG TAB PO SCH (17:01)
[2017-11-27] MEDS: LORATADINE 10 MG TAB PO SCH (17:01)
[2017-11-27] MEDS: HYDROcodone/APAP 7.5-325MG 1 EACH TAB PO PRN ×2 (17:01→21:44)
--- NOTE | 2017-11-27 19:09 | PN ---
PROGRESS NOTE DATE OF SERVICE: 11/27/2017 REASON FOR FOLLOWUP: Right foot cellulitis and possible infected hematoma. INTERVAL HISTORY: The patient is afebrile. She is breathing comfortably. Denies any chest pain or shortness of breath. No abdominal pain. Still complaining of pain to the right foot area. PHYSICAL EXAMINATION: Her blood pressure is 132/55 with a pulse of 61, temperature 98.3, she is 96% on room air. GENERAL DESCRIPTION: Middle-aged female lying in bed in no distress. RESPIRATORY SYSTEM: Unlabored breathing. Clear to auscultation anteriorly. HEART: S1, S2. Regular rate and rhythm. Right foot swelling has much improved. No drainage was noticed. LABS: BUN of 17, creatinine 1.07. DIAGNOSTIC IMPRESSION AND PLAN: Patient with right foot hematoma, questionably infected. Culture positive for Staph epi. Antibiotic has been changed to doxycycline. The patient did have significant improvement with significant decrease in swelling and redness. She will finish therapy with oral doxycycline 100 mg b.i.d. for about a week. Continue supportive care. MMODL / IJN: [id number] /
[2017-11-27] MEDS: DOXYCYCLINE MONOHYDRATE 100 MG CAPSULE PO SCH (21:42)
[2017-11-27] MEDS: CITALOPRAM HYDROBROMIDE 20 MG TAB PO SCH (21:42)
[2017-11-27] MEDS: PRAVASTATIN SODIUM 20 MG TAB PO SCH (21:44)
[2017-11-28] MEDS: LEVOTHYROXINE 50 MCG TAB PO SCH (06:16)
[2017-11-28] MEDS: PANTOPRAZOLE 40 MG TABLET PO SCH (06:16)
[2017-11-28 07:23] VITALS: BP 102/52; PULSE 53; RESP 16; TEMP 97.7
[2017-11-28 08:54] LABS: Calcium 8.6 mg/dL (8.4-10.2); Potassium 3.8 mmol/L (3.5-5.1)
[2017-11-28 09:07] LABS: INR 1.5 (<1.2); Prothrombin Time 13.9 sec (9.0-12.0)
[2017-11-28 09:12] LABS: Basophils % (A) 1 %; Eosinophils # (A) 0.1 k/uL (0-0.7); Eosinophils % (A) 6 %; HCT 34.9 % (34.0-46.0); HGB 11.9 gm/dL (11.4-16.0); Lymphocytes # (A) 0.5 k/uL (1.0-4.8); Lymphocytes % (A) 26 %; MCH 30.6 pg (25.0-35.0); MCHC 33.9 g/dL (31.0-37.0); Mean Platelet Volume 10.3; Monocytes # (A) 0.2 k/uL (0-1.0); Monocytes % (A) 9 %; Neutrophils % (A) 54 %; Platelet Count 107 k/uL (150-450); RBC 3.88 m/uL (3.80-5.40); RDW 13.8 % (11.5-15.5)
[2017-11-28 09:15] LABS: WBC 1.8 k/uL (3.8-10.6)
[2017-11-28] MEDS: ASPIRIN 81 MG PO SCH (09:28)
[2017-11-28] MEDS: FUROSEMIDE 40 MG TAB PO SCH (09:28)
[2017-11-28] MEDS: DOXYCYCLINE MONOHYDRATE 100 MG CAPSULE PO SCH (09:28)
[2017-11-28] MEDS: POTASSIUM CHLORIDE ER 20 MEQ TAB.ER PO SCH (09:28)
[2017-11-28] MEDS: FLUTICASONE 50MCG/SPRAY NASAL 16GM EA NOSTRIL SCH (09:28)
[2017-11-28] MEDS: DIMETHYL FUMARATE 240 MG PO SCH (09:29)
[2017-11-28] MEDS: FOLIC ACID 1 MG TAB PO SCH (09:29)
[2017-11-28] MEDS: CHOLECALCIFEROL 1,000 UNIT TAB PO SCH (09:29)
[2017-11-28] MEDS: METHYLPHENIDATE HCL 10 MG TAB PO SCH (09:35)
[2017-11-28] MEDS: PREGABALIN 100 MG CAP PO SCH (09:35)
[2017-11-28] MEDS ORDERED: WARFARIN 10 MG TAB PO ONE (11:00)
--- NOTE | 2017-11-28 11:03 | P.DS ---
Providers Date of admission: 11/20/17 23:47 Expected date of discharge: 11/28/17 Attending physician: Sarah Paredes Consults: 11/21/17 00:03 Consult Physician Urgent Consulting Provider: Hernán Skinner Consult Reason/Comments: Right foot pain, edema, cellulitis Do you want consulting provider notified?: Already Contacted 11/21/17 08:40 Consult Physician Routine Consulting Provider: Homero Glasgow Consult Reason/Comments: right foot cellulitis Do you want consulting provider notified?: Yes Primary care physician: Sarah Paredes [facility] Course: Discharge diagnosis 1. Right foot cellulitis with hematoma and possible abscess: Status post I&D. Wound culture growing staph epidermidis. Patient seen by infectious disease they're recommending doxycycline 100 mg twice a day for one week. Continue with current wound care. Patient will follow-up with orthopedics outpatient 4. Hypokalemia: Replace 5. History of PE and DVT maintained on Coumadin . INR is remained subtherapeutic during her hospitalization. INR today is 1.5. She'll receive Coumadin 10 mg for discharge. Her home Coumadin dosing will be increased to 6 mg daily. Check PT/INR in 3 days. 6. Pain control: INCREASED NORCO TO 7.5 MG EVERY 4 HOURS. CONTINUE FENTANYL PATCH 7. History of borderline diabetic 8. Leukopenia possibly secondary to patient's infection. White count at discharge 1.8. We'll have CBC checked in [address] Paredes's office Hospital course This is a 62-year-old female with a known past medical history of multiple sclerosis, DVT and PE, hypothyroidism, borderline diabetes mellitus, sleep apnea and hyperlipidemia. Patient presents to the emergency room with complaints of pain and swelling in the right foot. She's found have evidence of cellulitis there is concerns about a possible abscess. She has been admitted to the hospital and placed on IV vancomycin. Orthopedics and infectious disease have been consulted. Orthopedics have ordered an MRI of the foot to rule out an abscess. Patient may require an I&D. White, admission is low at 3.6 platelets 117. Possibly related to infections. Patient initially came into the ER on November 10 for infection of the right foot and was placed on Keflex for 10 days. She completed the antibiotic course with really no improvement. She had a computed tomography scan on November 10 that showed no evidence of osteomyelitis in no acute fracture. There is slight thickening of the second metatarsal could relate to an old fracture. Patient denies any injury to the area. Patient denies any fever or chills or sweats. Denies any chest pain or shortness breath. Denies any nausea or vomiting. Denies any bowel movement changes or urinary symptoms. Patient seen by both infectious disease and orthopedics during this admission. She was initially paced on IV vancomycin. Orthopedics did do an I&D on the patient. She's found have evidence of right foot cellulitis with hematoma and possible abscess. Culture grew Staphylococcus epidermidis and infectious disease has switched her over to doxycycline as stated above. Patient will follow-up with orthopedics outpatient. Continue with current wound care instructions per infectious disease and orthopedics. Nursing staff will be placing wound care instructions and discharge papers. Patient's INR subtherapeutic. Coumadin dosing has been adjusted. Patient also had evidence of leukopenia. We will follow further in the office. Patient will need CBC and PT/INR checked in 3 days. Patient also was given a prescription of [place] for 3 days. Furthermore pain medication adjustments can be made in the office. Patient is medical stable for discharge. She has been cleared by consulting physicians. She was seen evaluated by physical therapy. The recommending home with home care I performed an examination of the patient and discussed their management with the physician Medical Underwriter. I have reviewed the Physician Medical Underwriter's notes and agree with the documented findings and plan of care Patient Condition at Discharge: Stable Plan - Discharge Summary Discharge Rx Participant: No New Discharge Prescriptions: New Doxycycline Monohydrate [Vibramycin] 100 mg PO BID #14 capsule HYDROcodone/APAP 7.5-325MG [[place] 7.5-325] 1 each PO Q4H PRN #18 tab PRN Reason: Pain Warfarin Sodium [Coumadin] 6 mg PO DAILY #30 tablet Continue Baclofen [Lioresal] 10 mg PO DAILY@1700 Aspirin 81 mg PO DAILY Montelukast [Singulair] 10 mg PO DAILY@1700 Furosemide [Lasix] 40 mg PO BID@0900,1700 Potassium Chloride [Potassium Chloride ER] 20 meq PO BID@0900,1700 Citalopram Hydrobromide [CeleXA] 40 mg PO HS Nitroglycerin Sl Tabs [Nitrostat] 0.4 mg SUBLINGUAL Q5M PRN PRN Reason: Chest Pain Pantoprazole Sodium [Protonix] 40 mg PO DAILY@0600 Ferrous Sulfate [Feosol] 325 mg PO DAILY@0900 Fexofenadine HCl [Mimi Allergy] 180 mg PO DAILY@1700 Dimethyl Fumarate [Tecfidera] 240 mg PO BID@0900,2100 Cholecalciferol [Vitamin D3] 2,000 unit PO DAILY Pravastatin Sodium [Pravachol] 20 mg PO HS@2100 Methylphenidate HCl [Ritalin] 20 mg PO QAM@0900 Fluticasone Nasal [place] [Flonase Nasal [place]] 1 spray EA NOSTRIL DAILY fentaNYL [Fentanyl] 25 mcg TRANSDERM Q72H Pregabalin [Lyrica] 100 mg PO TID@0900,1700,2100 Folic Acid 0.4 mg PO DAILY Biotin 10,000 mcg PO BID@0900,1700 Levothyroxine Sodium [Synthroid] 50 mcg PO DAILY@0600 Discontinued Warfarin Sodium 5 mg PO MO@1700 Warfarin [Coumadin] 7.5 mg PO SUTUWETHFRSA@1700 Cephalexin [Keflex] 500 mg PO QID #40 capsule Discharge Medication List Aspirin 81 mg PO DAILY 11/08/13 [History] Baclofen [Lioresal] 10 mg PO DAILY@17011/08/13 [History] Citalopram Hydrobromide [CeleXA] 40 mg PO HS 11/08/13 [History] Ferrous Sulfate [Feosol] 325 mg PO DAILY@0900 11/08/13 [History] Fexofenadine HCl [Mimi Allergy] 180 mg PO DAILY@17011/08/13 [History] Furosemide [Lasix] 40 mg PO BID@0900,1700 11/08/13 [History] Montelukast [Singulair] 10 mg PO DAILY@1700 11/08/13 [History] Nitroglycerin Sl Tabs [Nitrostat] 0.4 mg SUBLINGUAL Q5M PRN 11/08/13 [History] Pantoprazole Sodium [Protonix] 40 mg PO DAILY@0600 11/08/13 [History] Potassium Chloride [Potassium Chloride ER] 20 meq PO BID@0900,1700 11/08/13 [ History] Cholecalciferol [Vitamin D3] 2,000 unit PO DAILY 11/18/15 [History] Dimethyl Fumarate [Tecfidera] 240 mg PO BID@0900,2100 11/18/15 [History] Fluticasone Nasal [place] [Flonase Nasal [place]] 1 spray EA NOSTRIL DAILY 11/18/15 [History] Methylphenidate HCl [Ritalin] 20 mg PO QAM@0900 11/18/15 [History] Pravastatin Sodium [Pravachol] 20 mg PO HS@2100 11/18/15 [History] fentaNYL [Fentanyl] 25 mcg TRANSDERM Q72H 11/18/15 [History] Pregabalin [Lyrica] 100 mg PO TID@0900,1700,2100 07/13/16 [History] Folic Acid 0.4 mg PO DAILY 08/18/16 [History] Biotin 10,000 mcg PO BID@0900,1700 07/06/17 [History] Levothyroxine Sodium [Synthroid] 50 mcg PO DAILY@0600 11/20/17 [History] Doxycycline Monohydrate [Vibramycin] 100 mg PO BID #14 capsule 11/28/17 [Rx] HYDROcodone/APAP 7.5-325MG [[place] 7.5-325] 1 each PO Q4H PRN #18 tab 11/28/17 [ Rx] Warfarin Sodium [Coumadin] 6 mg PO DAILY #30 tablet 11/28/17 [Rx] Follow up Appointment(s)/Referral(s): [facility] Vis[facility] Nurse, [NON-STAFF] - Hernán Skinner MD [Medical Doctor] - 1 Week Sarah Paredes MD [Primary Care Provider] - 3 Days Ambulatory/Diagnostic Orders: Complete Blood Count w/diff [LAB.AMB] Time Frame: 3 Days, Location: Determined By Patient Prothrombin Time INR [LAB.AMB] Time Frame: 3 Days, Location: Determined By Patient Activity/Diet/Wound Care/Special Instructions: Daily dressing changes with gauze, kerlix, and booker wrap. Elevate foot Check PT/INR and CBC in 3 days Diet: cardiac Activity: as tolerated Discharge Disposition: HOME WITH HOME HEALTH SERVICES
[2017-11-28] MEDS ORDERED: FERROUS SULFATE 325 MG TAB PO SCH (12:00)
--- NOTE | 2017-11-28 12:13 | PN ---
PROGRESS NOTE DATE OF SERVICE: 11/28/2017 REASON FOR FOLLOWUP: Right foot abscess, cellulitis. INTERVAL HISTORY: The patient is afebrile. Still complaining of pain to the right foot area. Denies having any chest pain or shortness of breath or cough. No abdominal pain or any diarrhea. PHYSICAL EXAMINATION: On examination, blood pressure 102/52 with a pulse of 53, temperature 97.7. She is 98% on room air. General description is middle-aged female, lying in bed in no distress. RESPIRATORY SYSTEM: Unlabored breathing, clear to auscultation anteriorly. HEART: S1, S2. Regular rate and rhythm. ABDOMEN: Soft, no tenderness. Right foot is currently dressed up, no obvious drainage on the dressing. DIAGNOSTIC IMPRESSION AND PLAN: Patient with right foot hematoma with question of possible skin infection. Culture with Staphylococcus epidermidis. Overall improvement with vancomycin. She will finish therapy with oral doxycycline for another week. Continue supportive care condition. MMODL / IJN: [id number] /
== END 2017-11-28 12:11 | disposition home health service (06) | DRG 603 ==
LOC: EC 19:06 → 4MS4W 23:47
PROVIDERS: ADMIT Internal Medicine; ATTEND Internal Medicine
PROC: 0JCQ0ZZ Extirpation of Matter from Right Foot Subcutaneous Tissue and Fascia, Open Approach (ICD-10-PCS; principal; 2017-11-22 13:00)
PROC: 0S9F3ZX Drainage of Right Ankle Joint, Percutaneous Approach, Diagnostic (ICD-10-PCS; principal; 2017-11-22 13:00)
DX: L03.115 Cellulitis of right lower limb (principal); I69.351 Hemiplegia and hemiparesis following cerebral infarction affecting right dominant side; L02.611 Cutaneous abscess of right foot; D69.6 Thrombocytopenia, unspecified; D72.819 Decreased white blood cell count, unspecified; E03.9 Hypothyroidism, unspecified; E78.5 Hyperlipidemia, unspecified; E87.6 Hypokalemia; F32.9 Major depressive disorder, single episode, unspecified; G35 Multiple sclerosis; G47.30 Sleep apnea, unspecified; M79.7 Fibromyalgia; R47.02 Dysphasia; Z79.01 Long term (current) use of anticoagulants; Z79.82 Long term (current) use of aspirin; Z79.899 Other long term (current) drug therapy; Z82.49 Family history of ischemic heart disease and other diseases of the circulatory system; Z82.62 Family history of osteoporosis; Z86.711 Personal history of pulmonary embolism; Z86.718 Personal history of other venous thrombosis and embolism; Z90.710 Acquired absence of both cervix and uterus; Z79.891 Long term (current) use of opiate analgesic; Z79.51 Long term (current) use of inhaled steroids; Z79.890 Hormone replacement therapy; Z88.8 Allergy status to other drugs, medicaments and biological substances; Z16.21 Resistance to vancomycin; Z90.49 Acquired absence of other specified parts of digestive tract; R73.03 Prediabetes; B95.8 Unspecified staphylococcus as the cause of diseases classified elsewhere
CPT/HCPCS: 36415; 71046; 80048; 80053; 80202; 85025; 85610; 85730; 87040; 87070; 87075; 87077; 87186; 87205; 96374; 96375; 99284

== ENCOUNTER 2017-12-04 17:14 | Inpatient (IN) | payer MEDICARE ==
[2017-12-04] MEDS ORDERED: MORPHINE SULFATE 2 MG/ML SYRINGE IVP STA (18:55)
[2017-12-04] MEDS ORDERED: SODIUM CHLORIDE 0.9% 1,000 ML IV ONE (18:56)
--- NOTE | 2017-12-04 19:14 | ED ---
Recheck HPI <Abdirahman Patel - Last Filed: 12/04/17 22:30> - General Source: patient, RN notes reviewed, old records reviewed Mode of arrival: wheelchair Limitations: language barrier, altered mental status, physical limitation <Samantha Hogan - Last Filed: 12/04/17 22:56> - General Chief Complaint: Recheck/Abnormal Lab/Rx Stated Complaint: post surgical pain Time Seen by Provider: 12/04/17 18:26 - History of Present Illness Initial Comments: This Patient is a 62-year-old male presents emergency Department chief complaint of right foot pain. She reports that she had surgery last week for a infected hematoma. Patient was seen by her surgeons and was told everything was looking well. She also reports that she saw her primary care physician who evaluated her and sent her in for further evaluation and likely admission due to the increased pain. Patient states she's been taking the antibiotics and see discharge. She did have home nurses coming to change the packing. Apparently they were not supposed to put packing in the wound according to the surgeon today. Patient does have history of stroke. She family reports that she has no new changes in her mental status. She does have very confused conversation at baseline. She does use the word "House" to replace other words such as stitches. (Samantha Hogan) - Related Data Home Medications Medication Instructions Recorded Confirmed Aspirin 81 mg PO DAILY 11/08/13 12/04/17 Baclofen [Lioresal] 10 mg PO DAILY@169911/08/13 12/04/17 Citalopram Hydrobromide [CeleXA] 40 mg PO HS 11/08/13 12/04/17 Ferrous Sulfate [Feosol] 325 mg PO DAILY@0911/08/13 12/04/17 Fexofenadine HCl [Mimi Allergy] 180 mg PO DAILY@169911/08/13 12/04/17 Furosemide [Lasix] 40 mg PO BID@0900,169911/08/13 12/04/17 Montelukast [Singulair] 10 mg PO DAILY@169911/08/13 12/04/17 Nitroglycerin Sl Tabs [Nitrostat] 0.4 mg SUBLINGUAL Q5M PRN 11/08/13 12/04/17 Pantoprazole Sodium [Protonix] 40 mg PO DAILY@0600 11/08/13 12/04/17 Potassium Chloride [Potassium 20 meq PO BID@0900,1700 11/08/13 12/04/17 Chloride ER] Cholecalciferol [Vitamin D3] 2,000 unit PO DAILY 11/18/15 12/04/17 Dimethyl Fumarate [Tecfidera] 240 mg PO BID@0900,2100 11/18/15 12/04/17 Fluticasone Nasal [place] [Flonase 1 spray EA NOSTRIL DAILY 11/18/15 12/04/17 Nasal [place]] Methylphenidate HCl [Ritalin] 20 mg PO QAM@0900 11/18/15 12/04/17 Pravastatin Sodium [Pravachol] 20 mg PO HS@2100 11/18/15 12/04/17 fentaNYL [Fentanyl] 25 mcg TRANSDERM Q72H 11/18/15 12/04/17 Pregabalin [Lyrica] 100 mg PO TID@0900,1700,2100 07/13/16 12/04/17 Folic Acid 0.4 mg PO DAILY 08/18/16 12/04/17 Biotin 10,000 mcg PO BID@0900,1700 07/06/17 12/04/17 Levothyroxine Sodium [Synthroid] 50 mcg PO DAILY@0600 11/20/17 12/04/17 Previous Rx's Medication Instructions Recorded Warfarin Sodium [Coumadin] 6 mg PO DAILY #30 tablet 11/28/17 Allergies Allergy/AdvReac Type Severity Reaction Status Date / Time adhesive Allergy SKIN Verified 12/04/17 19:06 PEELING Review of Systems ROS Other: All systems not noted in ROS Statement are negative. <Abdirahman Patel - Last Filed: 12/04/17 22:30> ROS Other: All systems not noted in ROS Statement are negative. <Samantha Hogan - Last Filed: 12/04/17 22:56> ROS Statement: Those systems with pertinent positive or pertinent negative responses have been documented in the HPI. Past Medical History Past Medical History: Chest Pain / Angina, CVA/TIA, Fibromyalgia, Musculoskeletal Disorder, Neurologic Disorder, Osteoarthritis (OA), Pulmonary Embolus (PE), Sleep Apnea/CPAP/BIPAP, Thyroid Disorder Additional Past Medical History / Comment(s): MULTIPLE SCLEROSIS, HX OF CVA 2006 WITH R SIDED WEAKNESS AND DYSPHASIA-MUCH IMPROVED, MIGRAINES, SLEEP APNEA( HAS C-PAP MACHINE BUT DOES NOT USE) ABD HERNIA,CHRONIC PAIN ESPECIALLY ON R SIDE OF BODY AND LOW BACK . PAINFUL FOR HER TO LIE FLAT. HX OF NOSEBLEED JUL 2014 AND RECEIVED PLASMA TRANSFUSION. takes pills with applesauce. History of Any Multi-Drug Resistant Organisms: VRE Date of last positivie culture/infection: 10/24/09 confirmed with infectious disease nurse on 08/18/16. MDRO Source:: URINE Past Surgical History: Appendectomy, Cholecystectomy, Hysterectomy Additional Past Surgical History / Comment(s): Incisional hernia repair, laparoscopic lysis of adhesions in 1987, ganglion cyst removal of the left wrist , patent foramen ovale patch in 2006, RF ablation for back pain. Past Anesthesia/Blood Transfusion Reactions: No Reported Reaction Past Psychological History: Depression Smoking Status: Never smoker Past Alcohol Use History: None Reported Past Drug Use History: None Reported - Past Family History Mother Family Medical History: Hypertension Additional Family Medical History / Comment(s): osteoporosis Father Family Medical History: Dementia <Samantha Hogan - Last Filed: 12/04/17 22:56> General Exam <Abdirahman Patel - Last Filed: 12/04/17 22:30> Limitations: language barrier, altered mental status, physical limitation General appearance: alert, in no apparent distress Head exam: Present: atraumatic, normocephalic, normal inspection Eye exam: Present: normal appearance ENT exam: Present: normal exam, mucous membranes moist Neck exam: Present: normal inspection. Absent: tenderness, meningismus, lymphadenopathy Respiratory exam: Present: normal lung sounds bilaterally. Absent: respiratory distress, wheezes, rales, rhonchi, stridor Cardiovascular Exam: Present: regular rate, normal rhythm, normal heart sounds. Absent: systolic murmur, diastolic murmur, rubs, gallop, clicks GI/Abdominal exam: Present: soft, normal bowel sounds. Absent: distended, tenderness, guarding, rebound, rigid Extremities exam: Present: normal inspection, full ROM, normal capillary refill , other (Patient does have some mild erythema over the right dorsum of the foot. No purulent drainage from recent incision site. Steri-Strips are applied. She has normal capillary refill sensation range of motion.). Absent: tenderness, pedal edema, joint swelling, calf tenderness Back exam: Present: normal inspection Neurological exam: Present: alert, oriented X3, CN II-XII intact Psychiatric exam: Present: normal affect, normal mood <Samantha Hogan - Last Filed: 12/04/17 22:56> - General Exam Comments Initial Comments: This is a 62-year-old female. History of stroke. Chronic right sided weakness and hypersensitivity. Patient does not appear to be in any acute distress. ( Samantha Hogan) Vital Signs 12/04/17 12/04/17 12/04/17 17:27 19:28 21:15 Temperature 97.0 F L 98.1 F Pulse Rate 62 61 63 Respiratory 18 18 18 Rate Blood Pressure 94/68 123/64 121/63 O2 Sat by Pulse 98 99 98 Oximetry Medical Decision Making - Lab Data Result diagrams: 12/04/17 19:25 12/04/17 19:25 <Abdirahman Patel - Last Filed: 12/04/17 22:30> - Lab Data Result diagrams: 12/04/17 19:25 12/04/17 19:25 <Samantha Hogan - Last Filed: 12/04/17 22:56> - Medical Decision Making I saw this patient in conjunction with the physician psychiatric assistant. I performed independent history and physical exam. Agree with case management. (Abdirahman Patel) 62-year-old female with a history of stroke presents emergency Department with right foot pain. Recently had surgery for hematoma drainage. Patient reports that since discharge she has visiting nurses. She reports today she had severe pain. She did see her surgeon Dr. Skinner. She said she was clear. She saw her PCP sent her here for a dilation and admission. She reports intractable pain. She does have hyperesthesias poststroke. This most likely the cause of her pain. Patient's white blood cell count is within normal limits. Ultrasound was negative for DVT. X-ray showed mild posterior arthritis in the MTP joint. Patient reported results. Discussed case with Dr. Paulino who discussed the case with Dr. Paredes. Like to admit the Patient. We'll put the Patient on observation for pain management fluids. Further evaluation by Dr. Paredes and possibility of her orthopedics specialist tomorrow as well. ( Samantha Hogan) - Lab Data Lab Results 12/04/17 12/04/17 Range/Units 19:25 19:25 WBC 3.0 L (3.8-10.6) k/uL RBC 4.15 (3.80-5.40) m/uL Hgb 13.0 (11.4-16.0) gm/dL Hct 37.5 (34.0-46.0) % MCV 90.3 (80.0-100.0) fL MCH 31.3 (25.0-35.0) pg MCHC 34.6 (31.0-37.0) g/dL RDW 13.9 (11.5-15.5) % Plt Count 118 L (150-450) k/uL Neutrophils % 66 % Lymphocytes % 18 % Monocytes % 9 % Eosinophils % 3 % Basophils % 1 % Neutrophils # 2.0 (1.3-7.7) k/uL Lymphocytes # 0.6 L (1.0-4.8) k/uL Monocytes # 0.3 (0-1.0) k/uL Eosinophils # 0.1 (0-0.7) k/uL Basophils # 0.0 (0-0.2) k/uL Sodium 140 (137-145) mmol/L Potassium 4.3 (3.5-5.1) mmol/L Chloride 102 (98-107) mmol/L Carbon Dioxide 27 (22-30) mmol/L Anion Gap 11 mmol/L BUN 21 H (7-17) mg/dL Creatinine 1.13 H (0.52-1.04) mg/dL Est GFR (CKD-EPI)AfAm 60 (>60 ml/min/1.73 sqM) Est GFR (CKD-EPI)NonAf 52 (>60 ml/min/1.73 sqM) Glucose 129 H (74-99) mg/dL Calcium 9.7 (8.4-10.2) mg/dL Total Bilirubin 0.8 (0.2-1.3) mg/dL AST 43 H (14-36) U/L ALT 43 (9-52) U/L Alkaline Phosphatase 67 (38-126) U/L Total Protein 6.3 (6.3-8.2) g/dL Albumin 4.2 (3.5-5.0) g/dL Disposition <Abdirahman Patel - Last Filed: 12/04/17 22:30> Is patient prescribed a controlled substance at d/c from ED?: No When asked, does pt state using other controlled substances?: No If prescribed controlled substance>3 days was MAPS reviewed?: No If opioid is for acute pain is fill amount 7 days or less?: No If Rx opioid, was Start Talking consent form obtained?: No Time of Disposition: 22:55 <Samantha Hogan - Last Filed: 12/04/17 22:56> Clinical Impression: Hyperesthesia, Right foot pain, History of recent surgery Disposition: ADMITTED IP TO THIS HOSP Referrals: Sarah Paredes MD [Primary Care Provider] - 1-2 days
[2017-12-04] MEDS: SODIUM CHLORIDE 0.9% 1,000 ML IV SCH (19:23)
[2017-12-04 19:44] LABS: Basophils % (A) 1 %; Eosinophils # (A) 0.1 k/uL (0-0.7); Eosinophils % (A) 3 %; HCT 37.5 % (34.0-46.0); Lymphocytes # (A) 0.6 k/uL (1.0-4.8); Lymphocytes % (A) 18 %; MCH 31.3 pg (25.0-35.0); MCHC 34.6 g/dL (31.0-37.0); MCV 90.3 fL (80.0-100.0); Mean Platelet Volume 9.9; Monocytes # (A) 0.3 k/uL (0-1.0); Monocytes % (A) 9 %; Neutrophils % (A) 66 %; Platelet Count 118 k/uL (150-450); RBC 4.15 m/uL (3.80-5.40); RDW 13.9 % (11.5-15.5)
[2017-12-04 19:47] LABS: Albumin 4.2 g/dL (3.5-5.0); Calcium 9.7 mg/dL (8.4-10.2); Total Bilirubin 0.8 mg/dL (0.2-1.3); Total Protein 6.3 g/dL (6.3-8.2)
[2017-12-04 19:49] LABS: Potassium 4.3 mmol/L (3.5-5.1)
--- NOTE | 2017-12-04 20:18 | US ---
EXAMINATION TYPE: US venous doppler duplex LE RT DATE OF EXAM: 12/04/2017 7:53 PM COMPARISON: NONE CLINICAL HISTORY: Pain. Right leg pain SIDE PERFORMED: RIGHT TECHNIQUE: The lower extremity deep venous system is examined utilizing real time linear array sonog christelle with graded compression, doppler sonography and color-flow sonography. VESSELS IMAGED: External Iliac Vein (EIV) Common Femoral Vein Deep Femoral Vein Greater Saphenous Vein * Femoral Vein Popliteal Vein Small Saphenous Vein * Proximal Calf Veins (* superficial vessels) FINDINGS: Grayscale, color doppler, spectral doppler imaging performed of the deep veins of the lowe r extremities. There is normal flow, compressibility, vascular waveforms. IMPRESSION: NEGATIVE FOR DVT, RIGHT LOWER EXTREMITY.
--- NOTE | 2017-12-04 20:34 | XR ---
PROCEDURE: XR foot complete RT 3 views DATE AND TIME: 12/04/2017 8:04 PM REFERRING PHYSICIAN: Samantha Hogan CLINICAL INDICATION: Pain, swelling, discharge TECHNIQUE: Department protocol. COMPARISON: 11/10/2017 FINDINGS: The soft tissues are remarkable for prominent soft tissue swelling of the forefoot. There is no soft tissue emphysema or radiopaque foreign body. There is no fracture or malalignment. No focal osteopenia or cortical erosion. There is prominent joint space narrowing and osteophytic spur formation with eburnation at the first MTP articulation. IMPRESSION: 1. FOREFOOT SOFT TISSUE SWELLING. 2. PROMINENT FIRST MTP OSTEOARTHRITIS.
[2017-12-04] MEDS ORDERED: ONDANSETRON 4 MG/2 ML VIAL IVP PRN (22:56)
[2017-12-04] MEDS ORDERED: LOPERAMIDE 2 MG CAP PO PRN (22:56)
[2017-12-04] MEDS ORDERED: IBUPROFEN 400 MG TAB PO PRN (22:56)
[2017-12-04] MEDS ORDERED: BISACODYL 5 MG TABLET.DR PO PRN (22:56)
[2017-12-04] MEDS ORDERED: KETOROLAC 30 MG/ML 1 ML VIAL IVP PRN (22:56)
[2017-12-04] MEDS ORDERED: NALOXONE 0.4 MG/ML 1 ML VIAL IV PRN (22:56)
[2017-12-04] MEDS ORDERED: ACETAMINOPHEN TAB 325 MG TAB PO PRN (22:56)
[2017-12-05 00:56] VITALS: BMI 38.2
[2017-12-05] MEDS: SODIUM CHLORIDE 0.9% 1,000 ML IV SCH ×3 (05:52→22:33)
[2017-12-05] MEDS ORDERED: NITROGLYCERIN SL TABS 0.4 MG TAB SUBLINGUAL PRN (08:49)
[2017-12-05] MEDS ORDERED: PANTOPRAZOLE 40 MG/10 ML VIAL IV SCH (09:00)
[2017-12-05] MEDS ORDERED: NON-FORMULARY DRUG (Biotin [Biotin] 10,000 MCG) PO SCH (09:00)
[2017-12-05 09:30] LABS: Basophils % (A) 1 %; Eosinophils # (A) 0.1 k/uL (0-0.7); Eosinophils % (A) 4 %; HCT 34.2 % (34.0-46.0); HGB 11.2 gm/dL (11.4-16.0); Lymphocytes # (A) 0.5 k/uL (1.0-4.8); Lymphocytes % (A) 27 %; MCH 30.2 pg (25.0-35.0); MCHC 32.9 g/dL (31.0-37.0); MCV 91.8 fL (80.0-100.0); Mean Platelet Volume 10.7; Monocytes # (A) 0.1 k/uL (0-1.0); Monocytes % (A) 8 %; Neutrophils % (A) 57 %; Platelet Count 102 k/uL (150-450); RBC 3.72 m/uL (3.80-5.40); RDW 13.9 % (11.5-15.5)
[2017-12-05 09:39] LABS: WBC 1.7 k/uL (3.8-10.6)
[2017-12-05 09:40] LABS: INR 1.7 (<1.2); Prothrombin Time 15.3 sec (9.0-12.0)
[2017-12-05 09:53] LABS: Albumin 3.1 g/dL (3.5-5.0); Calcium 8.9 mg/dL (8.4-10.2); Potassium 3.9 mmol/L (3.5-5.1); Total Bilirubin 0.4 mg/dL (0.2-1.3); Total Protein 4.9 g/dL (6.3-8.2)
[2017-12-05] MEDS: FERROUS SULFATE 325 MG TAB PO SCH (11:01)
[2017-12-05] MEDS: POTASSIUM CHLORIDE ER 20 MEQ TAB.ER PO SCH ×2 (11:01→16:56)
[2017-12-05] MEDS: Dimethyl Fumarate [Tecfidera] PO SCH ×2 (11:02→22:35)
[2017-12-05] MEDS: ASPIRIN 81 MG PO SCH (11:02)
[2017-12-05] MEDS: CHOLECALCIFEROL 1,000 UNIT TAB PO SCH (11:02)
[2017-12-05] MEDS: FOLIC ACID 1 MG TAB PO SCH (11:02)
[2017-12-05] MEDS: FLUTICASONE 50MCG/SPRAY NASAL 16GM EA NOSTRIL SCH (11:03)
--- NOTE | 2017-12-05 11:12 | P.CNOR ---
History of Present Illness - HPI Consult date: 12/05/17 Requesting physician: Hernán Skinner Consult reason: other History of present illness: The patient is a 62 year old female with a medical history significant for multiple medical problems including prior DVT/pulmonary embolism, Multiple Sclerosis and history of stroke who presented to our office yesterday, 12/04/17, with her for postoperative evaluation following I & D of the right foot performed on 11/22/17. Dr Skinner felty her woudn was healing ok and didn't show signs of acute infection requiring invasive intervention. Her reported her pain being out of proportion. She was admitted through ED later yesterday for further eval and management. She feels her pain and foot symptoms are improved this am. She has no new complaints. Review of Systems All systems: negative Constitutional: Denies chills, Denies fever Eyes: denies blurred vision, denies pain Ears, nose, mouth and throat: Denies headache, Denies sore throat Cardiovascular: Denies chest pain, Denies shortness of breath Respiratory: Denies cough Gastrointestinal: Denies abdominal pain, Denies diarrhea, Denies nausea, Denies vomiting Genitourinary: Denies dysuria, Denies hematuria Musculoskeletal: Denies myalgias Integumentary: Denies pruritus, Denies rash Neurological: Denies numbness, Denies weakness Psychiatric: Denies anxiety, Denies depression Endocrine: Denies fatigue, Denies weight change Past Medical History Past Medical History: Chest Pain / Angina, CVA/TIA, Fibromyalgia, Musculoskeletal Disorder, Neurologic Disorder, Osteoarthritis (OA), Pulmonary Embolus (PE), Sleep Apnea/CPAP/BIPAP, Thyroid Disorder Additional Past Medical History / Comment(s): MULTIPLE SCLEROSIS, HX OF CVA 2006 WITH R SIDED WEAKNESS AND DYSPHASIA-MUCH IMPROVED, MIGRAINES, SLEEP APNEA( HAS C-PAP MACHINE BUT DOES NOT USE) ABD HERNIA,CHRONIC PAIN ESPECIALLY ON R SIDE OF BODY AND LOW BACK . PAINFUL FOR HER TO LIE FLAT. HX OF NOSEBLEED JUL 2014 AND RECEIVED PLASMA TRANSFUSION. takes pills with applesauce. 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 MDRO Source:: URINE Past Surgical History: Appendectomy, Cholecystectomy, Hysterectomy Additional Past Surgical History / Comment(s): Incisional hernia repair, laparoscopic lysis of adhesions in 1987, ganglion cyst removal of the left wrist , patent foramen ovale patch in 2006, RF ablation for back pain. Past Anesthesia/Blood Transfusion Reactions: No Reported Reaction Past Psychological History: Depression Additional Psychological History / Comment(s): CELEXA. PT HAS DIFFICULTY W/ SPEECH BUT IS MUCH IMPROVED. HAS TO LOOK AT DIETARY MENU TO ORDER CAN'T DO IT BY PHONE. Pt resides with her spouse. She uses a cane to ambulate. She also has a walker. Spouse drives her to appointments. Spouse assists her with some ADLs when needed. Smoking Status: Never smoker Past Alcohol Use History: None Reported Past Drug Use History: None Reported Additional Drug Use History / Comment(s): Lives at home with her requires some assistance with ADLs at times - Past Family History Mother Family Medical History: Hypertension Additional Family Medical History / Comment(s): osteoporosis Father Family Medical History: Dementia Medications and Allergies Home Medications Medication Instructions Recorded Confirmed Type Aspirin 81 mg PO DAILY 11/08/13 12/04/17 History Baclofen [Lioresal] 10 mg PO DAILY@17011/08/13 12/04/17 History Citalopram Hydrobromide [CeleXA] 40 mg PO HS 11/08/13 12/04/17 History Ferrous Sulfate [Feosol] 325 mg PO DAILY@0900 11/08/13 12/04/17 History Fexofenadine HCl [Mimi Allergy] 180 mg PO DAILY@1700 11/08/13 12/04/17 History Furosemide [Lasix] 40 mg PO BID@0900,1700 11/08/13 12/04/17 History Montelukast [Singulair] 10 mg PO DAILY@17011/08/13 12/04/17 History Nitroglycerin Sl Tabs [Nitrostat] 0.4 mg SUBLINGUAL Q5M PRN 11/08/13 12/04/17 History Pantoprazole Sodium [Protonix] 40 mg PO DAILY@0600 11/08/13 12/04/17 History Potassium Chloride [Potassium 20 meq PO BID@0900,1700 11/08/13 12/04/17 History Chloride ER] Cholecalciferol [Vitamin D3] 2,000 unit PO DAILY 11/18/15 12/04/17 History Dimethyl Fumarate [Tecfidera] 240 mg PO BID@0900,2100 11/18/15 12/04/17 History Fluticasone Nasal [place] [Flonase 1 spray EA NOSTRIL DAILY 11/18/15 12/04/17 History Nasal [place]] Methylphenidate HCl [Ritalin] 20 mg PO QAM@0900 11/18/15 12/04/17 History Pravastatin Sodium [Pravachol] 20 mg PO HS@2100 11/18/15 12/04/17 History fentaNYL [Fentanyl] 25 mcg TRANSDERM Q72H 11/18/15 12/04/17 History Pregabalin [Lyrica] 100 mg PO TID@0900,1700,2100 07/13/16 12/04/17 History Folic Acid 0.4 mg PO DAILY 08/18/16 12/04/17 History Biotin 10,000 mcg PO BID@0900,1700 07/06/17 12/04/17 History Levothyroxine Sodium [Synthroid] 50 mcg PO DAILY@0600 11/20/17 12/04/17 History Warfarin Sodium [Coumadin] 6 mg PO DAILY #30 tablet 11/28/17 12/04/17 Rx Allergies Allergy/AdvReac Type Severity Reaction Status Date / Time adhesive Allergy SKIN Verified 12/04/17 19:06 PEELING Physical Examination A focused examination of the right foot was conducted. On inspection of the right foot, there are no clinical signs of infection. Steri strips in place. no bleeding or drainage. Mild erythema around wound as expected with secondary healing. NVI. pulses 2+ and less than 2 sec cap refill present. No fluctuance. calf is soft and nontender Results - Labs Labs: Abnormal Lab Results - Last 24 Hours (Table) 12/04/17 12/04/17 12/05/17 Range/Units 19:25 19:25 09:05 WBC 3.0 L 1.7 L* (3.8-10.6) k/uL RBC 3.72 L (3.80-5.40) m/uL Hgb 11.2 L (11.4-16.0) gm/dL Plt Count 118 L 102 L (150-450) k/uL Neutrophils # 1.0 L (1.3-7.7) k/uL Lymphocytes # 0.6 L 0.5 L (1.0-4.8) k/uL PT (9.0-12.0) sec INR (<1.2) BUN 21 H (7-17) mg/dL Creatinine 1.13 H (0.52-1.04) mg/dL Glucose 129 H (74-99) mg/dL AST 43 H (14-36) U/L Total Protein (6.3-8.2) g/dL Albumin (3.5-5.0) g/dL 12/05/17 12/05/17 Range/Units 09:05 09:05 WBC (3.8-10.6) k/uL RBC (3.80-5.40) m/uL Hgb (11.4-16.0) gm/dL Plt Count (150-450) k/uL Neutrophils # (1.3-7.7) k/uL Lymphocytes # (1.0-4.8) k/uL PT 15.3 H (9.0-12.0) sec INR 1.7 H (<1.2) BUN 22 H (7-17) mg/dL Creatinine 1.25 H (0.52-1.04) mg/dL Glucose 157 H (74-99) mg/dL AST (14-36) U/L Total Protein 4.9 L (6.3-8.2) g/dL Albumin 3.1 L (3.5-5.0) g/dL H & H 12/04/17 12/05/17 Range/Units 19:25 09:05 Hgb 13.0 11.2 L (11.4-16.0) gm/dL Hct 37.5 34.2 (34.0-46.0) % Coagulation 12/05/17 Range/Units 09:05 INR 1.7 H (<1.2) Result Diagrams: 12/05/17 09:05 12/05/17 09:05 Assessment and Plan (1) Foot pain, right Narrative/Plan: No surgical intervention planned currently. Recommend continued wound care and pain management. Consider consult to ID/wound care as well as pain management. Will continue to follow. thank you Current Visit: Yes Status: Acute Priority: Medium Code(s): M79.671 - PAIN IN RIGHT FOOT SNOMED Code(s): 90725879 Time with Patient: Less than 30
[2017-12-05] MEDS ORDERED: DOXYCYCLINE MONOHYDRATE 100 MG CAPSULE PO SCH (11:30)
--- NOTE | 2017-12-05 11:37 | P.HPIM ---
History of Present Illness H&P Date: 12/05/17 Chief Complaint: Right foot pain This is a 62-year-old female with a known past medical history of multiple sclerosis, CVA with expressive aphasia, DVT and PE, hypothyroidism, borderline diabetic, sleep apnea and hyperlipidemia. She was just recently hospitalized and discharged from [facility] on 11/28/2017 after having a right foot cellulitis with hematoma and possible abscess. She underwent incision and drainage of that area. Wound cultures had grown staph epidermidis. And infectious disease recommended doxycycline 100 mg twice a day for one week at time of discharge. Patient is still currently on doxycycline at home. She came into the emergency room with complaints of severe pain in her right foot. She had been evaluated by both orthopedics and Dr. Paredes in the outpatient setting. Her Dr. Paredes recommended patient to come to the ER for further evaluation and pain control. X-ray of the right foot had shown soft tissue swelling. No evidence of fracture. Orthopedics were consulted as well as infectious disease. Doppler was negative for a right lower extremity DVT. She did have some minimal yellowish drainage on the bandage. No fever or chills. White count has dropped from 3-1.8. She did have some evidence of acute kidney injury with a creatinine of 1.13 up to 1.25. She's receiving IV fluids and Lasix on hold. Also had some hypotension again this is improving with IV fluids. Patient did receive Toradol, Motrin and morphine for pain control. Toradol and Motrin will be discontinued due to the acute kidney injury. Patient denies any fever or chills or sweats. Denies any nausea vomiting. Denies any chest pain shortness of breath. Denies any difficulties urinating. Reports pain with walking. Review of Systems Please refer to HPI otherwise unremarkable Past Medical History Past Medical History: Chest Pain / Angina, CVA/TIA, Fibromyalgia, Musculoskeletal Disorder, Neurologic Disorder, Osteoarthritis (OA), Pulmonary Embolus (PE), Sleep Apnea/CPAP/BIPAP, Thyroid Disorder Additional Past Medical History / Comment(s): MULTIPLE SCLEROSIS, HX OF CVA 2006 WITH R SIDED WEAKNESS AND DYSPHASIA-MUCH IMPROVED, MIGRAINES, SLEEP APNEA( HAS C-PAP MACHINE BUT DOES NOT USE) ABD HERNIA,CHRONIC PAIN ESPECIALLY ON R SIDE OF BODY AND LOW BACK . PAINFUL FOR HER TO LIE FLAT. HX OF NOSEBLEED JUL 2014 AND RECEIVED PLASMA TRANSFUSION. takes pills with applesauce. History of Any Multi-Drug Resistant Organisms: VRE Date of last positivie culture/infection: 10/24/09 confirmed with infectious disease nurse on 08/18/16. MDRO Source:: URINE Past Surgical History: Appendectomy, Cholecystectomy, Hysterectomy Additional Past Surgical History / Comment(s): Incisional hernia repair, laparoscopic lysis of adhesions in 1987, ganglion cyst removal of the left wrist , patent foramen ovale patch in 2006, RF ablation for back pain. Past Anesthesia/Blood Transfusion Reactions: No Reported Reaction Past Psychological History: Depression Additional Psychological History / Comment(s): CELEXA. PT HAS DIFFICULTY W/ SPEECH BUT IS MUCH IMPROVED. HAS TO LOOK AT DIETARY MENU TO ORDER CAN'T DO IT BY PHONE. Pt resides with her spouse. She uses a cane to ambulate. She also has a walker. Spouse drives her to appointments. Spouse assists her with some ADLs when needed. Smoking Status: Never smoker Past Alcohol Use History: None Reported Past Drug Use History: None Reported Additional Drug Use History / Comment(s): Lives at home with her requires some assistance with ADLs at times - Past Family History Mother Family Medical History: Hypertension Additional Family Medical History / Comment(s): osteoporosis Father Family Medical History: Dementia Medications and Allergies Home Medications Medication Instructions Recorded Confirmed Type Aspirin 81 mg PO DAILY 11/08/13 12/04/17 History Baclofen [Lioresal] 10 mg PO DAILY@17011/08/13 12/04/17 History Citalopram Hydrobromide [CeleXA] 40 mg PO HS 11/08/13 12/04/17 History Ferrous Sulfate [Feosol] 325 mg PO DAILY@0911/08/13 12/04/17 History Fexofenadine HCl [Mimi Allergy] 180 mg PO DAILY@169911/08/13 12/04/17 History Furosemide [Lasix] 40 mg PO BID@0900,17011/08/13 12/04/17 History Montelukast [Singulair] 10 mg PO DAILY@169911/08/13 12/04/17 History Nitroglycerin Sl Tabs [Nitrostat] 0.4 mg SUBLINGUAL Q5M PRN 11/08/13 12/04/17 History Pantoprazole Sodium [Protonix] 40 mg PO DAILY@0600 11/08/13 12/04/17 History Potassium Chloride [Potassium 20 meq PO BID@0900,1700 11/08/13 12/04/17 History Chloride ER] Cholecalciferol [Vitamin D3] 2,000 unit PO DAILY 11/18/15 12/04/17 History Dimethyl Fumarate [Tecfidera] 240 mg PO BID@0900,2100 11/18/15 12/04/17 History Fluticasone Nasal [place] [Flonase 1 spray EA NOSTRIL DAILY 11/18/15 12/04/17 History Nasal [place]] Methylphenidate HCl [Ritalin] 20 mg PO QAM@0900 11/18/15 12/04/17 History Pravastatin Sodium [Pravachol] 20 mg PO HS@2100 11/18/15 12/04/17 History fentaNYL [Fentanyl] 25 mcg TRANSDERM Q72H 11/18/15 12/04/17 History Pregabalin [Lyrica] 100 mg PO TID@0900,1700,2100 07/13/16 12/04/17 History Folic Acid 0.4 mg PO DAILY 08/18/16 12/04/17 History Biotin 10,000 mcg PO BID@0900,1700 07/06/17 12/04/17 History Levothyroxine Sodium [Synthroid] 50 mcg PO DAILY@0600 11/20/17 12/04/17 History Warfarin Sodium [Coumadin] 6 mg PO DAILY #30 tablet 11/28/17 12/04/17 Rx Allergies Allergy/AdvReac Type Severity Reaction Status Date / Time adhesive Allergy SKIN Verified 12/04/17 19:06 PEELING Physical Exam Vitals: Vital Signs Temp Pulse Pulse Pulse Resp BP BP 12/05/17 09:58 105/78 12/05/17 08:00 60 51 L 16 12/05/17 07:19 97.1 F L 51 L 16 89/44 12/05/17 01:26 16 12/05/17 00:54 97.0 F L 60 16 133/71 12/05/17 00:42 97.0 F L 60 18 133/71 12/04/17 23:58 98.5 F 56 L 18 117/64 12/04/17 21:15 98.1 F 63 18 121/63 12/04/17 19:28 61 18 123/64 12/04/17 17:27 97.0 F L 62 18 94/68 Pulse Ox 12/05/17 09:58 12/05/17 08:00 12/05/17 07:19 97 12/05/17 01:26 12/05/17 00:54 92 L 12/05/17 00:42 95 12/04/17 23:58 96 12/04/17 21:15 98 12/04/17 19:28 99 12/04/17 17:27 98 Intake and Output 12/04/17 12/05/17 12/05/17 22:59 06:59 14:59 Other: Voiding Method Bedside Commode Bedside Commode # Voids 1 Weight 104.326 kg 104.32 kg Head normocephalic Neck supple Lungs clear to auscultation bilaterally no wheezing or crackles Heart regular rate and rhythm S1-S2, no rub or gallop Abdomen is soft nontender nondistended positive bowel sounds no hepatosplenomegaly Extremities right foot swelling on the top of foot. Tender with palpation. Incision site minimal erythema noted. Bandage shows some serous drainage. Bruising from last admission has resolved Neuro alert and orientated to 3 Results CBC & Chem 7: 12/05/17 09:05 12/05/17 09:05 Labs: Abnormal Lab Results - Last 24 Hours (Table) 12/04/17 12/04/17 12/05/17 Range/Units 19:25 19:25 09:05 WBC 3.0 L 1.7 L* (3.8-10.6) k/uL RBC 3.72 L (3.80-5.40) m/uL Hgb 11.2 L (11.4-16.0) gm/dL Plt Count 118 L 102 L (150-450) k/uL Neutrophils # 1.0 L (1.3-7.7) k/uL Lymphocytes # 0.6 L 0.5 L (1.0-4.8) k/uL PT (9.0-12.0) sec INR (<1.2) BUN 21 H (7-17) mg/dL Creatinine 1.13 H (0.52-1.04) mg/dL Glucose 129 H (74-99) mg/dL AST 43 H (14-36) U/L Total Protein (6.3-8.2) g/dL Albumin (3.5-5.0) g/dL 12/05/17 12/05/17 Range/Units 09:05 09:05 WBC (3.8-10.6) k/uL RBC (3.80-5.40) m/uL Hgb (11.4-16.0) gm/dL Plt Count (150-450) k/uL Neutrophils # (1.3-7.7) k/uL Lymphocytes # (1.0-4.8) k/uL PT 15.3 H (9.0-12.0) sec INR 1.7 H (<1.2) BUN 22 H (7-17) mg/dL Creatinine 1.25 H (0.52-1.04) mg/dL Glucose 157 H (74-99) mg/dL AST (14-36) U/L Total Protein 4.9 L (6.3-8.2) g/dL Albumin 3.1 L (3.5-5.0) g/dL Thrombosis Risk Factor Assmnt - Choose All That Apply Any of the Below Risk Factors Present?: Yes Each Factor Represents 1 point: Obesity (BMI >25) Other Risk Factors: Yes Each Risk Factor Represents 2 Points: Age 61-74 years Thrombosis Risk Factor Assessment Total Risk Factor Score: 3 Thrombosis Risk Factor Assessment Level: Moderate Risk Assessment and Plan Assessment: 1. Right foot pain with recent I&D for right foot hematoma and cellulitis: We' ll continue doxycycline. Check wound culture. Infectious disease will be consulted. X-ray completed showing soft tissue swelling. Venous Doppler was negative for DVT the right leg 2. Acute kidney injury: Hold Lasix. Continue with IV fluids. Also will discontinue the Motrin and Toradol. 3. Leukopenia white count 1.8. Continue to monitor. Possibly due to patient' s recent infection 4. History of CVA with expressive dysphasia 5. History of DVT and PE maintained on Coumadin. INR subtherapeutic at 1.7. Patient is receiving Coumadin 6 mg tonight. Continue to monitor PT/INR 7. History of multiple sclerosis 8. Borderline diabetic add sliding scale coverage GI prophylaxis Protonix and DVT prophylaxis Coumadin Time with Patient: Greater than 30 (Greater than 60% of the total time spent in counseling and coordination of care.I performed an examination of the patient and discussed their management with the physician Financial Solutions Advisor. I have reviewed the Physician Financial Solutions Advisor's notes and agree with the documented findings and plan of care)
[2017-12-05] MEDS: PREGABALIN 100 MG CAP PO SCH ×3 (11:44→22:35)
[2017-12-05] MEDS: METHYLPHENIDATE HCL 10 MG TAB PO SCH (11:45)
[2017-12-05] MEDS ORDERED: VANCOMYCIN IV PER PHARMACY 1 EACH MISC MISCELLANE PRN (11:51)
[2017-12-05 12:21] LABS: Glucose,Whole Blood 104 mg/dL (75-99)
[2017-12-05] MEDS ORDERED: VANCOMYCIN 1,750 MG in SODIUM CHLORIDE 0.9% 250 ML IVPB ONE (12:30)
[2017-12-05] MEDS: INSULIN ASPART 100 UNIT/ML 1 ML 10 ML VIAL SQ SCH ×3 (13:04→22:34)
[2017-12-05] MEDS ORDERED: MONTELUKAST 10 MG TAB PO SCH (17:00)
[2017-12-05] MEDS ORDERED: LORATADINE 10 MG TAB PO SCH (17:00)
[2017-12-05] MEDS ORDERED: BACLOFEN 10 MG TAB PO SCH (17:00)
[2017-12-05] MEDS: MORPHINE SULFATE 2 MG/ML SYRINGE IV PRN ×2 (17:51→22:33)
[2017-12-05] MEDS ORDERED: WARFARIN 3 MG TAB PO SCH (18:00)
[2017-12-05 18:16] LABS: Glucose,Whole Blood 107 mg/dL (75-99)
[2017-12-05 20:29] LABS: Glucose,Whole Blood 148 mg/dL (75-99)
[2017-12-05] MEDS ORDERED: PRAVASTATIN SODIUM 20 MG TAB PO SCH (21:00)
[2017-12-05] MEDS ORDERED: CITALOPRAM HYDROBROMIDE 20 MG TAB PO SCH (21:00)
--- NOTE | 2017-12-05 23:14 | CONS ---
CONSULTATION DATE OF SERVICE: 12/05/2017 REASON FOR CONSULTATION: Right foot wound. HISTORY OF PRESENT ILLNESS: The patient is a 62-year-old female who was recently admitted at this facility when the patient had a right foot infected hematoma, status post drainage. Cultures were positive for Staphylococcus epidermidis. She was on IV vancomycin, subsequently discharged home on a week's course of oral doxycycline. By the time the patient was getting discharged, her swelling and redness had significantly improved, and the patient was not running any fever. The patient presented back to the [facility] ER yesterday with the chief complaint of right foot pain. The patient says she was doing well until the day prior to admission to hospital, when the home care nurse came to change the packing. She was noted to have more swelling of the foot with some drainage and pain. Pain was described to be throbbing, almost 7 to 8 out of 10, and no radiation. The patient denies any high-grade fever. With these symptoms, the patient was evaluated by the ER physician. Patient did have x-rays of the right foot which showed some forefoot soft tissue swelling, prominent first metatarsophalangeal osteoarthritis. The patient did have leukopenia; white count of 3. The patient did have cultures obtained from the wound. She was started on doxycycline. Infectious Disease was consulted for further recommendation regarding antibiotic therapy. REVIEW OF SYSTEMS: CONSTITUTIONAL: Positive for weakness but no fever. EYES: No complaint. ENT: No complaint. RESPIRATORY: No complaint. CARDIOVASCULAR: No complaint. GENITOURINARY: No complaint. GASTROINTESTINAL: No complaint. MUSCULOSKELETAL: As per HPI. INTEGUMENTARY: As per HPI. PSYCHOLOGICAL: No complaint. ENDOCRINE: No complaint. NEUROLOGICAL: No complaint. PAST MEDICAL HISTORY: 1. Recent right foot hematoma, status post drainage. 2. CVA, TIA. 3. Fibromyalgia. 4. Osteoarthritis. 5. Pulmonary embolism. 6. Sleep apnea. 7. Hypothyroidism. 8. Multiple sclerosis. PAST SURGICAL HISTORY: 1. Appendectomy. 2. Cholecystectomy. 3. Hysterectomy. 4. Incisional hernia repair. 5. Laparoscopic lysis of adhesions. 6. Ganglion cyst removal. 7. Patent foramen ovale patch. 8. Right foot hematoma drainage. SOCIAL HISTORY: The patient is . Lives with her . No smoking, drinking or drug use. FAMILY HISTORY: Father with history of dementia. Mother with history of hypertension, osteoporosis. ALLERGIES: NO KNOWN DRUG ALLERGIES. CURRENT MEDICATIONS: 1. Tylenol. 2. Aspirin. 3. Baclofen. 4. Dulcolax. 5. Vitamin D3. 6. Celexa. 7. Duragesic patch. 8. Iron sulfate. 9. Flonase. 10.Folic acid. 11.NovoLog. 12.Synthroid. 13.Imodium. 14.Claritin. 15.Ritalin. 16.Singulair. 17.Narcan. 18.Nitrostat. 19.Zofran. 20.Protonix. 21.K-Dur. 22.Pravachol. 23.Lyrica. 24.Vancomycin, Pharmacy to dose. PHYSICAL EXAMINATION: Blood pressure is 118/58 with a pulse of 51, temperature 97.5. He is 99% on room air. General description is a middle-aged female lying in bed in no distress. No tachypnea or accessory muscle of respiration use. HEENT examination shows no pallor or scleral icterus. Oral mucosa membrane is dry. No pharyngeal erythema or thrush. NECK: Trachea is central. No thyromegaly. LUNGS: Unlabored breathing. Clear to auscultation anteriorly. No wheeze or crackle. HEART: S1, S2. Regular rate and rhythm. No added sound. ABDOMEN: Soft. No tenderness. No guarding or rigidity. No organomegaly. EXTREMITIES: No edema of feet. Examination of the right foot dorsum shows some superficial wound, very minimal surrounding swelling. No significant redness or foul- smelling drainage was noted. Neurologically patient is awake, alert, oriented x3. Mood and affect normal. LABS: Hemoglobin 11.2, white count 1.7 with a BUN of 22, creatinine 1.25. Electrolytes have been normal. Liver enzymes are normal. She did have some local wound cultures which are currently pending. Blood culture so far negative. DIAGNOSTIC IMPRESSION AND PLAN: Patient admitted to hospital with right foot pain, swelling patient did have recent history of hematoma evacuation. Culture at that time was positive for Staphylococcus epidermidis. It could be more likely skin raven than an infective pathogen; however, to be on the safe side she was treated with IV vancomycin and subsequently oral doxycycline. She is now presenting to hospital with recurrent swelling and redness. I was unable to appreciate any significant redness or any drainage from this wound. Clinical suspicion is very low for underlying recurrent or persistent infection. PLAN: 1. The patient may be given a short course of IV vancomycin, Pharmacy to dose, while waiting for the repeat culture to finalize. 2. Local care with dressing and an Dung wrap to keep some of the swelling down. 3. We will follow up on the clinical condition and the current cultures to further adjust medication if needed. Thank you for this consultation. Will follow this patient along with you. MMODL / IJN: [id number] /
[2017-12-06] MEDS: LEVOTHYROXINE 50 MCG TAB PO SCH (05:43)
[2017-12-06] MEDS: MORPHINE SULFATE 2 MG/ML SYRINGE IV PRN (05:43)
[2017-12-06] MEDS ORDERED: VANCOMYCIN 1,750 MG in SODIUM CHLORIDE 0.9% 250 ML IVPB SCH (06:00)
[2017-12-06 07:08] LABS: Glucose,Whole Blood 90 mg/dL (75-99)
[2017-12-06] MEDS: INSULIN ASPART 100 UNIT/ML 1 ML 10 ML VIAL SQ SCH (07:42)
[2017-12-06] MEDS: FERROUS SULFATE 325 MG TAB PO SCH (07:51)
[2017-12-06] MEDS: POTASSIUM CHLORIDE ER 20 MEQ TAB.ER PO SCH (07:51)
[2017-12-06] MEDS: FOLIC ACID 1 MG TAB PO SCH (07:51)
[2017-12-06] MEDS: ASPIRIN 81 MG PO SCH (07:52)
[2017-12-06] MEDS: METHYLPHENIDATE HCL 10 MG TAB PO SCH (07:52)
[2017-12-06] MEDS: PANTOPRAZOLE 40 MG TABLET PO SCH (07:52)
[2017-12-06] MEDS: FLUTICASONE 50MCG/SPRAY NASAL 16GM EA NOSTRIL SCH (07:53)
[2017-12-06] MEDS: CHOLECALCIFEROL 1,000 UNIT TAB PO SCH (07:53)
[2017-12-06] MEDS: Dimethyl Fumarate [Tecfidera] PO SCH (07:53)
[2017-12-06] MEDS: PREGABALIN 100 MG CAP PO SCH (07:54)
[2017-12-06 08:41] LABS: INR 1.7 (<1.2); Prothrombin Time 15.4 sec (9.0-12.0)
[2017-12-06 08:53] LABS: Basophils % (A) 1 %; Eosinophils # (A) 0.1 k/uL (0-0.7); Eosinophils % (A) 4 %; HCT 35.2 % (34.0-46.0); HGB 11.7 gm/dL (11.4-16.0); Lymphocytes # (A) 0.6 k/uL (1.0-4.8); Lymphocytes % (A) 23 %; MCH 30.7 pg (25.0-35.0); MCHC 33.2 g/dL (31.0-37.0); MCV 92.3 fL (80.0-100.0); Mean Platelet Volume 10.1; Monocytes # (A) 0.2 k/uL (0-1.0); Monocytes % (A) 8 %; Neutrophils # (A) 1.6 k/uL (1.3-7.7); Neutrophils % (A) 61 %; Platelet Count 104 k/uL (150-450); RBC 3.81 m/uL (3.80-5.40); RDW 14.1 % (11.5-15.5); WBC 2.7 k/uL (3.8-10.6)
[2017-12-06 09:12] LABS: Albumin 3.2 g/dL (3.5-5.0); Calcium 8.7 mg/dL (8.4-10.2); Potassium 4.7 mmol/L (3.5-5.1); Total Bilirubin 0.6 mg/dL (0.2-1.3)
--- NOTE | 2017-12-06 11:09 | P.PN ---
Subjective Progress Note Date: 12/06/17 This is a 62-year-old female with a known past medical history of multiple sclerosis, CVA with expressive aphasia, DVT and PE, hypothyroidism, borderline diabetic, sleep apnea and hyperlipidemia. She was just recently hospitalized and discharged from [facility] on 11/28/2017 after having a right foot cellulitis with hematoma and possible abscess. She underwent incision and drainage of that area. Wound cultures had grown staph epidermidis. And infectious disease recommended doxycycline 100 mg twice a day for one week at time of discharge. Patient is still currently on doxycycline at home. She came into the emergency room with complaints of severe pain in her right foot. She had been evaluated by both orthopedics and Dr. Paredes in the outpatient setting. Her Dr. Paredes recommended patient to come to the ER for further evaluation and pain control. X-ray of the right foot had shown soft tissue swelling. No evidence of fracture. Orthopedics were consulted as well as infectious disease. Doppler was negative for a right lower extremity DVT. She did have some minimal yellowish drainage on the bandage. No fever or chills. White count has dropped from 3-1.8. She did have some evidence of acute kidney injury with a creatinine of 1.13 up to 1.25. She's receiving IV fluids and Lasix on hold. Also had some hypotension again this is improving with IV fluids. Patient did receive Toradol, Motrin and morphine for pain control. Toradol and Motrin will be discontinued due to the acute kidney injury. Patient denies any fever or chills or sweats. Denies any nausea vomiting. Denies any chest pain shortness of breath. Denies any difficulties urinating. Reports pain with walking. On 12/06/2017 Today patient is feeling somewhat better, pain in her foot has subsided somewhat, culture of the wound is positive for gram-negative bacilli, currently patient is maintained on IV vancomycin only, will add IV Zosyn until final culture result is available. Otherwise she denies any other complaints at this time. Objective - Vital Signs Vital signs: Vital Signs Temp 97.5 F L 12/06/17 05:00 Pulse 52 L 12/06/17 05:00 Resp 16 12/06/17 05:00 BP 117/57 12/06/17 05:00 Pulse Ox 95 12/06/17 05:00 Intake & Output 12/05/17 12/06/17 12/06/17 18:59 06:59 18:59 Intake Total 360 2900 240 Balance 360 2900 240 Intake: Intake, IV Titration 1600 Amount Sodium Chloride 0.9% 1, 1600 000 ml @ 100 mls/hr IV . Q10H [facility] Rx#:[id number] Oral 360 1300 240 Other: Voiding Method Bedside Commode Bedside Commode # Voids 2 2 - Exam Head normocephalic Neck supple Lungs clear to auscultation bilaterally no wheezing or crackles Heart regular rate and rhythm S1-S2, no rub or gallop Abdomen is soft nontender nondistended positive bowel sounds no hepatosplenomegaly Extremities right foot swelling on the top of foot. Tender with palpation. Incision site minimal erythema noted. Bandage shows some serous drainage. Bruising from last admission has resolved Neuro alert and orientated to 3 - Labs CBC & Chem 7: 12/06/17 08:13 12/06/17 08:13 Labs: Abnormal Lab Results - Last 24 Hours (Table) 12/05/17 12/05/17 12/05/17 Range/Units 12:19 17:55 20:19 WBC (3.8-10.6) k/uL Plt Count (150-450) k/uL Lymphocytes # (1.0-4.8) k/uL PT (9.0-12.0) sec INR (<1.2) Chloride (98-107) mmol/L BUN (7-17) mg/dL Creatinine (0.52-1.04) mg/dL POC Glucose (mg/dL) 104 H 107 H 148 H (75-99) mg/dL Total Protein (6.3-8.2) g/dL Albumin (3.5-5.0) g/dL 12/06/17 12/06/17 12/06/17 Range/Units 08:13 08:13 08:13 WBC 2.7 L (3.8-10.6) k/uL Plt Count 104 L (150-450) k/uL Lymphocytes # 0.6 L (1.0-4.8) k/uL PT 15.4 H (9.0-12.0) sec INR 1.7 H (<1.2) Chloride 109 H (98-107) mmol/L BUN 21 H (7-17) mg/dL Creatinine 1.05 H (0.52-1.04) mg/dL POC Glucose (mg/dL) (75-99) mg/dL Total Protein 5.0 L (6.3-8.2) g/dL Albumin 3.2 L (3.5-5.0) g/dL Microbiology - Last 24 Hours (Table) 12/05/17 11:00 Gram Stain - Preliminary Foot - Right Wound Culture - Preliminary Gram Neg Bacilli 12/04/17 19:25 Blood Culture - Preliminary Blood No Growth after 24 hours 12/05/17 11:00 Anaerobic Culture - Preliminary Foot - Right Assessment and Plan Plan: 1. Right foot pain with recent I&D for right foot hematoma and cellulitis: We' ll continue doxycycline. Check wound culture. Infectious disease will be consulted. X-ray completed showing soft tissue swelling. Venous Doppler was negative for DVT the right leg 2. Acute kidney injury: Hold Lasix. Continue with IV fluids. Also will discontinue the Motrin and Toradol. 3. Leukopenia white count 1.8. Continue to monitor. Possibly due to patient' s recent infection 4. History of CVA with expressive dysphasia 5. History of DVT and PE maintained on Coumadin. INR subtherapeutic at 1.7. Patient is receiving Coumadin 6 mg tonight. Continue to monitor PT/INR 7. History of multiple sclerosis 8. Borderline diabetic add sliding scale coverage GI prophylaxis Protonix and DVT prophylaxis Coumadin Today IV Zosyn was added continue current management otherwise will recheck labs in a.m.
[2017-12-06 11:50] LABS: Glucose,Whole Blood 108 mg/dL (75-99)
--- NOTE | 2017-12-06 13:12 | P.PN ---
Subjective Progress Note Date: 12/06/17 Principal diagnosis: S/P I and D right foot Patient is seen at bedside this morning, 12/06/2017. She is status post I & D of the right foot performed on 11/22/17. Dr Skinner saw her in office on 2017 and felt her wound was healing ok and didn't show signs of acute infection requiring invasive intervention. She was admitted the same day per her PCP for further evaluation and management. Infectious disease has been consulted. Wound cultures have shown gram-negative bacilli. She is being covered with IV antibiotics.. She feels her pain and foot symptoms are the same today.. She has no new complaints. She is denying new numbness, tingling, calf pain, fever, chills, chest pain or shortness of breath. Objective - Vital Signs Vital signs: Vital Signs Temp 97.5 F L 12/06/17 05:00 Pulse 52 L 12/06/17 05:00 Resp 16 12/06/17 05:00 BP 117/57 12/06/17 05:00 Pulse Ox 95 12/06/17 05:00 Intake & Output 12/05/17 12/06/17 12/06/17 18:59 06:59 18:59 Intake Total 360 2900 240 Balance 360 2900 240 Intake: Intake, IV Titration 1600 Amount Sodium Chloride 0.9% 1, 1600 000 ml @ 100 mls/hr IV . Q10H [facility] Rx#:[id number] Oral 360 1300 240 Other: Voiding Method Bedside Commode Bedside Commode # Voids 2 2 - Exam Inspection of the right foot shows a healing surgical wound. There is some mild drainage. No jean-claude purulence was able to be expressed. There is no diffuse erythema. There is some erythema around the wound edges as expected. There is no active bleeding. Motor and sensation intact throughout the right foot and lower extremity. 2+ dorsalis pedis pulse present and less than 2 second capillary refill is present in all digits. - Constitutional General appearance: Present: no acute distress - Labs CBC & Chem 7: 12/06/17 08:13 12/06/17 08:13 Labs: Abnormal Lab Results - Last 24 Hours (Table) 12/05/17 12/05/17 12/06/17 Range/Units 17:55 20:19 08:13 WBC 2.7 L (3.8-10.6) k/uL Plt Count 104 L (150-450) k/uL Lymphocytes # 0.6 L (1.0-4.8) k/uL PT (9.0-12.0) sec INR (<1.2) Chloride (98-107) mmol/L BUN (7-17) mg/dL Creatinine (0.52-1.04) mg/dL POC Glucose (mg/dL) 107 H 148 H (75-99) mg/dL Total Protein (6.3-8.2) g/dL Albumin (3.5-5.0) g/dL 12/06/17 12/06/17 12/06/17 Range/Units 08:13 08:13 11:44 WBC (3.8-10.6) k/uL Plt Count (150-450) k/uL Lymphocytes # (1.0-4.8) k/uL PT 15.4 H (9.0-12.0) sec INR 1.7 H (<1.2) Chloride 109 H (98-107) mmol/L BUN 21 H (7-17) mg/dL Creatinine 1.05 H (0.52-1.04) mg/dL POC Glucose (mg/dL) 108 H (75-99) mg/dL Total Protein 5.0 L (6.3-8.2) g/dL Albumin 3.2 L (3.5-5.0) g/dL Microbiology - Last 24 Hours (Table) 12/05/17 11:00 Gram Stain - Preliminary Foot - Right Wound Culture - Preliminary Gram Neg Bacilli 12/04/17 19:25 Blood Culture - Preliminary Blood No Growth after 24 hours 12/05/17 11:00 Anaerobic Culture - Preliminary Foot - Right Assessment and Plan (1) Foot pain, right Narrative/Plan: No surgical intervention planned currently. Recommend continued wound care and antibiotics per infectious disease. Continue pain management per primary team. Will continue to follow. Thank you Current Visit: Yes Status: Acute Priority: Medium Code(s): M79.671 - PAIN IN RIGHT FOOT SNOMED Code(s): 51086400 Time with Patient: Less than 30
[2017-12-06] MEDS: PIPERACILLIN-TAZOBACTAM 3.375 GM in DEXTROSE/WATER 1 50ML.BAG IVPB SCH ×2 (13:18→16:52)
[2017-12-06 17:49] LABS: Glucose,Whole Blood 159 mg/dL (75-99)
[2017-12-06 20:06] LABS: Glucose,Whole Blood 146 mg/dL (75-99)
--- NOTE | 2017-12-06 22:28 | PN ---
PROGRESS NOTE DATE OF SERVICE: 12/06/2017 REASON FOR FOLLOWUP: Right foot wound and a question of cellulitis. INTERVAL HISTORY: The patient is afebrile. She is breathing comfortably. Denies having any chest pain, shortness of breath or cough. No abdominal pain. Pain to the right foot is currently improved. EXAMINATION: Blood pressure is 107/54, pulse of 60, temperature 97.1. She is 96% on room air. General description is a middle-aged female up in the bed in no distress. RESPIRATORY SYSTEM: Unlabored breathing. Clear to auscultation anteriorly. HEART: S1, S2. Regular rate and rhythm. ABDOMEN: Soft. No tenderness. Right foot some swelling, but no redness or drainage. LABS: Hemoglobin is 11.7, white count 2.7. BUN of 21, creatinine 1.05. Cultures from the right foot currently showing a gram-negative. DIAGNOSTIC IMPRESSION AND PLAN: Patient with right foot wound with question of secondary cellulitis. Wound culture now showing a gram-negative. We will discontinue vancomycin, add cefepime 2 g q.12 hours, waiting for the final ID. This is gram-negative. Continue supportive care. MMODL / IJN: [id number] /
[2017-12-06] MEDS: CEFEPIME 2 GM in SODIUM CHLORIDE 0.9% 50 ML IVPB SCH (23:18)
[2017-12-07] MEDS: LEVOTHYROXINE 50 MCG TAB PO SCH (05:58)
[2017-12-07 07:13] LABS: Glucose,Whole Blood 94 mg/dL (75-99)
[2017-12-07 07:54] LABS: Basophils % (A) 1 %; Eosinophils # (A) 0.1 k/uL (0-0.7); Eosinophils % (A) 5 %; HCT 38.1 % (34.0-46.0); HGB 12.7 gm/dL (11.4-16.0); Lymphocytes # (A) 0.6 k/uL (1.0-4.8); Lymphocytes % (A) 23 %; MCH 30.4 pg (25.0-35.0); MCHC 33.2 g/dL (31.0-37.0); MCV 91.5 fL (80.0-100.0); Mean Platelet Volume 9.6; Monocytes # (A) 0.1 k/uL (0-1.0); Monocytes % (A) 5 %; Neutrophils # (A) 1.7 k/uL (1.3-7.7); Neutrophils % (A) 63 %; Platelet Count 109 k/uL (150-450); RBC 4.17 m/uL (3.80-5.40); RDW 14.3 % (11.5-15.5); WBC 2.6 k/uL (3.8-10.6)
[2017-12-07 08:00] LABS: INR 1.4 (<1.2); Prothrombin Time 13.2 sec (9.0-12.0)
[2017-12-07 08:25] LABS: Albumin 3.5 g/dL (3.5-5.0); Calcium 9.3 mg/dL (8.4-10.2); Potassium 4.4 mmol/L (3.5-5.1); Total Bilirubin 0.4 mg/dL (0.2-1.3); Total Protein 5.6 g/dL (6.3-8.2)
[2017-12-07] MEDS: PANTOPRAZOLE 40 MG TABLET PO SCH (08:48)
--- NOTE | 2017-12-07 09:14 | P.PN ---
Subjective Progress Note Date: 12/07/17 Principal diagnosis: S/P I and D right foot Patient is seen at bedside this morning, 12/07/2017. She is status post I & D of the right foot performed on 11/22/17. She was admitted 12/04/17 for further evaluation and management regarding her foot wound and pain. Infectious disease has been consulted. Wound cultures have shown gram-negative bacilli. She is being covered with IV antibiotics. She feels her pain and foot symptoms are the same today. She is resting comfortably in bed this morning. She has no new complaints. She is denying new numbness, tingling, calf pain, fever, chills , chest pain or shortness of breath. Objective - Vital Signs Vital signs: Vital Signs Temp 97.6 F 12/07/17 05:00 Pulse 55 L 12/07/17 05:00 Resp 16 12/07/17 05:00 BP 109/58 12/07/17 05:00 Pulse Ox 95 12/07/17 05:00 Intake & Output 12/06/17 12/07/17 12/07/17 18:59 06:59 18:59 Intake Total 1660 1080 Balance 1660 1080 Intake: Intake, IV Titration 300 100 Amount Cefepime 2 gm In Sodium 50 Chloride 0.9% 50 ml @ 100 mls/hr IVPB Q12H [facility] Rx# :[id number] Piperacillin-Tazobactam 3 50 50 .375 gm In Dextrose/Water 1 50ml.bag @ 12.5 mls/hr IVPB Q8HR [facility] Rx#: [id number] Vancomycin 1,750 mg In 250 Sodium Chloride 0.9% 250 ml @ 125 mls/hr IVPB Q24H [facility] Rx#:[id number] Oral 1360 980 Other: Voiding Method Bedside Commode Bedside Commode # Voids 2 2 - Exam Inspection of the right foot shows improved healing surgical wound. There is some mild to no drainage. No jean-claude purulence was able to be expressed. There is no diffuse erythema. There is some erythema around the wound edges as expected. There is no active bleeding. Motor and sensation intact throughout the right foot and lower extremity. 2+ dorsalis pedis pulse present and less than 2 second capillary refill is present in all digits. - Constitutional General appearance: Present: no acute distress - Labs CBC & Chem 7: 12/07/17 07:34 12/07/17 07:34 Labs: Abnormal Lab Results - Last 24 Hours (Table) 12/06/17 12/06/17 12/06/17 Range/Units 08:13 11:44 17:28 WBC (3.8-10.6) k/uL Plt Count (150-450) k/uL Lymphocytes # (1.0-4.8) k/uL PT (9.0-12.0) sec INR (<1.2) Chloride 109 H (98-107) mmol/L BUN 21 H (7-17) mg/dL Creatinine 1.05 H (0.52-1.04) mg/dL POC Glucose (mg/dL) 108 H 159 H (75-99) mg/dL Total Protein 5.0 L (6.3-8.2) g/dL Albumin 3.2 L (3.5-5.0) g/dL 12/06/17 12/07/17 12/07/17 Range/Units 20:01 07:34 07:34 WBC 2.6 L (3.8-10.6) k/uL Plt Count 109 L (150-450) k/uL Lymphocytes # 0.6 L (1.0-4.8) k/uL PT 13.2 H (9.0-12.0) sec INR 1.4 H (<1.2) Chloride (98-107) mmol/L BUN (7-17) mg/dL Creatinine (0.52-1.04) mg/dL POC Glucose (mg/dL) 146 H (75-99) mg/dL Total Protein (6.3-8.2) g/dL Albumin (3.5-5.0) g/dL 12/07/17 Range/Units 07:34 WBC (3.8-10.6) k/uL Plt Count (150-450) k/uL Lymphocytes # (1.0-4.8) k/uL PT (9.0-12.0) sec INR (<1.2) Chloride 110 H (98-107) mmol/L BUN 20 H (7-17) mg/dL Creatinine (0.52-1.04) mg/dL POC Glucose (mg/dL) (75-99) mg/dL Total Protein 5.6 L (6.3-8.2) g/dL Albumin (3.5-5.0) g/dL Microbiology - Last 24 Hours (Table) 12/04/17 19:25 Blood Culture - Preliminary Blood No Growth after 48 hours 12/05/17 11:00 Gram Stain - Preliminary Foot - Right Wound Culture - Preliminary Gram Neg Bacilli Assessment and Plan (1) Foot pain, right Narrative/Plan: There continues to be no surgical intervention planned. Recommend continued wound care and antibiotics per infectious disease. Continue pain management per primary team. Will continue to follow. Thank you Current Visit: Yes Status: Acute Priority: Medium Code(s): M79.671 - PAIN IN RIGHT FOOT SNOMED Code(s): 87744919 Time with Patient: Less than 30
[2017-12-07] MEDS ORDERED: NITROGLYCERIN SL TABS 0.4 MG TAB SUBLINGUAL PRN (11:51)
[2017-12-07] MEDS ORDERED: DIMETHYL FUMARATE 240 MG PO SCH (12:00)
[2017-12-07 12:03] LABS: Glucose,Whole Blood 80 mg/dL (75-99)
[2017-12-07] MEDS: MORPHINE SULFATE 2 MG/ML SYRINGE IVP PRN ×2 (12:07→23:32)
[2017-12-07] MEDS: CEFEPIME 2 GM in SODIUM CHLORIDE 0.9% 50 ML IVPB SCH ×2 (12:20→23:33)
[2017-12-07] MEDS: ASPIRIN 81 MG PO SCH (12:21)
[2017-12-07] MEDS: CHOLECALCIFEROL 1,000 UNIT TAB PO SCH (12:21)
[2017-12-07] MEDS: FLUTICASONE 50MCG/SPRAY NASAL 16GM EA NOSTRIL SCH (12:21)
[2017-12-07] MEDS: FOLIC ACID 1 MG TAB PO SCH (12:22)
[2017-12-07] MEDS: METHYLPHENIDATE HCL 10 MG TAB PO SCH (12:23)
[2017-12-07] MEDS: INSULIN ASPART 100 UNIT/ML 1 ML 10 ML VIAL SQ SCH ×3 (12:23→22:20)
[2017-12-07] MEDS: POTASSIUM CHLORIDE ER 20 MEQ TAB.ER PO SCH ×2 (12:24→17:00)
[2017-12-07] MEDS ORDERED: PREGABALIN 100 MG CAP PO STA (12:46)
[2017-12-07] MEDS: DIMETHYL FUMARATE 240 MG PO SCH ×2 (13:06→22:23)
--- NOTE | 2017-12-07 16:54 | P.PN ---
Subjective Progress Note Date: 12/07/17 This is a 62-year-old female with a known past medical history of multiple sclerosis, CVA with expressive aphasia, DVT and PE, hypothyroidism, borderline diabetic, sleep apnea and hyperlipidemia. She was just recently hospitalized and discharged from [facility] on 11/28/2017 after having a right foot cellulitis with hematoma and possible abscess. She underwent incision and drainage of that area. Wound cultures had grown staph epidermidis. And infectious disease recommended doxycycline 100 mg twice a day for one week at time of discharge. Patient is still currently on doxycycline at home. She came into the emergency room with complaints of severe pain in her right foot. She had been evaluated by both orthopedics and Dr. Paredes in the outpatient setting. Her Dr. Paredes recommended patient to come to the ER for further evaluation and pain control. X-ray of the right foot had shown soft tissue swelling. No evidence of fracture. Orthopedics were consulted as well as infectious disease. Doppler was negative for a right lower extremity DVT. She did have some minimal yellowish drainage on the bandage. No fever or chills. White count has dropped from 3-1.8. She did have some evidence of acute kidney injury with a creatinine of 1.13 up to 1.25. She's receiving IV fluids and Lasix on hold. Also had some hypotension again this is improving with IV fluids. Patient did receive Toradol, Motrin and morphine for pain control. Toradol and Motrin will be discontinued due to the acute kidney injury. Patient denies any fever or chills or sweats. Denies any nausea vomiting. Denies any chest pain shortness of breath. Denies any difficulties urinating. Reports pain with walking. On 12/06/2017 Today patient is feeling somewhat better, pain in her foot has subsided somewhat, culture of the wound is positive for gram-negative bacilli, currently patient is maintained on IV vancomycin only, will add IV Zosyn until final culture result is available. Otherwise she denies any other complaints at this time. On 12/07/2017 patient is alert and oriented 3 in no apparent distress she is still complaining of severe right foot pain otherwise no complaints at this time there is no fever or chills no headache or dizziness no chest pain no shortness of breath no cough no nausea or vomiting no abdominal pain and no urinary symptoms Objective - Vital Signs Vital signs: Vital Signs Temp 97.3 F L 12/07/17 13:36 Pulse 50 L 12/07/17 16:00 Resp 16 12/07/17 16:00 BP 135/74 12/07/17 13:36 Pulse Ox 98 12/07/17 13:36 Intake & Output 12/06/17 12/07/17 12/07/17 18:59 06:59 18:59 Intake Total 1660 1080 240 Balance 1660 1080 240 Intake: Intake, IV Titration 300 100 Amount Cefepime 2 gm In Sodium 50 Chloride 0.9% 50 ml @ 100 mls/hr IVPB Q12H [facility] Rx# :[id number] Piperacillin-Tazobactam 3 50 50 .375 gm In Dextrose/Water 1 50ml.bag @ 12.5 mls/hr IVPB Q8HR [facility] Rx#: [id number] Vancomycin 1,750 mg In 250 Sodium Chloride 0.9% 250 ml @ 125 mls/hr IVPB Q24H [facility] Rx#:[id number] Oral 1360 980 240 Other: Voiding Method Bedside Commode Bedside Commode Bedside Commode # Voids 2 2 3 - Exam Head normocephalic Neck supple Lungs clear to auscultation bilaterally no wheezing or crackles Heart regular rate and rhythm S1-S2, no rub or gallop Abdomen is soft nontender nondistended positive bowel sounds no hepatosplenomegaly Extremities right foot swelling on the top of foot. Tender with palpation. Incision site minimal erythema noted. Bandage shows some serous drainage. Bruising from last admission has resolved Neuro alert and orientated to 3 - Labs CBC & Chem 7: 12/07/17 07:34 12/07/17 07:34 Labs: Abnormal Lab Results - Last 24 Hours (Table) 12/06/17 12/06/17 12/07/17 Range/Units 17:28 20:01 07:34 WBC 2.6 L (3.8-10.6) k/uL Plt Count 109 L (150-450) k/uL Lymphocytes # 0.6 L (1.0-4.8) k/uL PT (9.0-12.0) sec INR (<1.2) Chloride (98-107) mmol/L BUN (7-17) mg/dL POC Glucose (mg/dL) 159 H 146 H (75-99) mg/dL Total Protein (6.3-8.2) g/dL 12/07/17 12/07/17 Range/Units 07:34 07:34 WBC (3.8-10.6) k/uL Plt Count (150-450) k/uL Lymphocytes # (1.0-4.8) k/uL PT 13.2 H (9.0-12.0) sec INR 1.4 H (<1.2) Chloride 110 H (98-107) mmol/L BUN 20 H (7-17) mg/dL POC Glucose (mg/dL) (75-99) mg/dL Total Protein 5.6 L (6.3-8.2) g/dL Microbiology - Last 24 Hours (Table) 12/05/17 11:00 Anaerobic Culture - Preliminary Foot - Right 12/05/17 11:00 Gram Stain - Final Foot - Right Wound Culture - Final Pseudomonas aeruginosa 12/04/17 19:25 Blood Culture - Preliminary Blood No Growth after 48 hours Assessment and Plan Plan: 1. Right foot pain with recent I&D for right foot hematoma and cellulitis: We' ll continue doxycycline. Check wound culture. Infectious disease will be consulted. X-ray completed showing soft tissue swelling. Venous Doppler was negative for DVT the right leg 2. Acute kidney injury: Hold Lasix. Continue with IV fluids. Also will discontinue the Motrin and Toradol. 3. Leukopenia white count 1.8. Continue to monitor. Possibly due to patient' s recent infection 4. History of CVA with expressive dysphasia 5. History of DVT and PE maintained on Coumadin. INR subtherapeutic at 1.7. Patient is receiving Coumadin 6 mg tonight. Continue to monitor PT/INR 7. History of multiple sclerosis 8. Borderline diabetic add sliding scale coverage GI prophylaxis Protonix and DVT prophylaxis Coumadin Today IV Zosyn was added continue current management otherwise will recheck labs in a.m.
[2017-12-07] MEDS: MONTELUKAST 10 MG TAB PO SCH (17:00)
[2017-12-07] MEDS: LORATADINE 10 MG TAB PO SCH (17:00)
[2017-12-07] MEDS ORDERED: BACLOFEN 10 MG TAB PO PRN (17:00)
[2017-12-07] MEDS: PREGABALIN 100 MG CAP PO SCH ×2 (17:00→22:23)
[2017-12-07 17:55] LABS: Glucose,Whole Blood 105 mg/dL (75-99)
[2017-12-07] MEDS ORDERED: WARFARIN 3 MG TAB PO SCH (18:00)
[2017-12-07] MEDS ORDERED: WARFARIN 10 MG TAB PO ONE (18:00)
[2017-12-07 20:50] LABS: Glucose,Whole Blood 129 mg/dL (75-99)
[2017-12-07 21:02] LABS: Hemoglobin A1C 5.8 % (4.0-6.0)
[2017-12-07] MEDS: CITALOPRAM HYDROBROMIDE 20 MG TAB PO SCH (22:24)
[2017-12-07] MEDS: PRAVASTATIN SODIUM 20 MG TAB PO SCH (22:24)
--- NOTE | 2017-12-07 23:08 | PN ---
PROGRESS NOTE DATE OF SERVICE: 12/07/2017 REASON FOR FOLLOWUP: Right foot wound with secondary cellulitis. INTERVAL HISTORY: The patient is afebrile. She is breathing comfortably. Still complaining of significant pain to the right foot area. No drainage. Denies having any chest pain, shortness of breath or cough or any diarrhea. PHYSICAL EXAMINATION: Blood pressure is 135/74, pulse of 50, temperature of 97.3. She is 98% on room air. General description is a middle-aged female up in the bed in no distress. RESPIRATORY SYSTEM: Unlabored breathing. Clear to auscultation anteriorly. HEART: S1, S2. Regular rate and rhythm. ABDOMEN: Soft. No tenderness. Right foot is currently dressed up. No obvious drainage on the dressing. LABS: Hemoglobin is 12.7, white count 2.6, BUN of 20, creatinine 1.02. DIAGNOSTIC IMPRESSION AND PLAN: Patient with a right foot wound with secondary cellulitis. Culture positive for Pseudomonas aeruginosa, currently on cefazolin. That will be continued. Continue with supportive care. MMODL / IJN: [id number] /
[2017-12-08] MEDS: LEVOTHYROXINE 50 MCG TAB PO SCH (06:11)
[2017-12-08 07:14] LABS: Glucose,Whole Blood 90 mg/dL (75-99)
[2017-12-08 07:40] LABS: Basophils % (A) 1 %; Eosinophils # (A) 0.1 k/uL (0-0.7); Eosinophils % (A) 3 %; HCT 36.4 % (34.0-46.0); HGB 12.2 gm/dL (11.4-16.0); Lymphocytes # (A) 0.5 k/uL (1.0-4.8); Lymphocytes % (A) 19 %; MCHC 33.5 g/dL (31.0-37.0); MCV 89.8 fL (80.0-100.0); Mean Platelet Volume 10.3; Monocytes # (A) 0.2 k/uL (0-1.0); Monocytes % (A) 6 %; Neutrophils # (A) 1.8 k/uL (1.3-7.7); Neutrophils % (A) 68 %; RBC 4.06 m/uL (3.80-5.40); RDW 13.9 % (11.5-15.5); WBC 2.6 k/uL (3.8-10.6)
[2017-12-08 07:43] LABS: INR 1.4 (<1.2); Platelet Count 93 k/uL (150-450); Prothrombin Time 13.2 sec (9.0-12.0)
[2017-12-08 07:49] LABS: Albumin 3.2 g/dL (3.5-5.0); Potassium 4.5 mmol/L (3.5-5.1); Total Bilirubin 0.6 mg/dL (0.2-1.3)
[2017-12-08] MEDS: INSULIN ASPART 100 UNIT/ML 1 ML 10 ML VIAL SQ SCH ×4 (07:59→21:38)
[2017-12-08] MEDS: PANTOPRAZOLE 40 MG TABLET PO SCH (08:08)
[2017-12-08] MEDS: DIMETHYL FUMARATE 240 MG PO SCH ×2 (08:09→21:38)
[2017-12-08] MEDS: FERROUS SULFATE 325 MG TAB PO SCH (08:09)
[2017-12-08] MEDS: ASPIRIN 81 MG PO SCH (08:09)
[2017-12-08] MEDS: FLUTICASONE 50MCG/SPRAY NASAL 16GM EA NOSTRIL SCH (08:09)
[2017-12-08] MEDS: POTASSIUM CHLORIDE ER 20 MEQ TAB.ER PO SCH ×2 (08:10→17:23)
[2017-12-08] MEDS: PREGABALIN 100 MG CAP PO SCH ×3 (08:15→21:39)
[2017-12-08] MEDS: METHYLPHENIDATE HCL 10 MG TAB PO SCH (08:15)
[2017-12-08] MEDS: CEFEPIME 2 GM in SODIUM CHLORIDE 0.9% 50 ML IVPB SCH ×2 (10:39→23:14)
[2017-12-08 11:17] LABS: Glucose,Whole Blood 135 mg/dL (75-99)
--- NOTE | 2017-12-08 12:20 | P.PN ---
Subjective Progress Note Date: 12/08/17 This is a 62-year-old female with a known past medical history of multiple sclerosis, CVA with expressive aphasia, DVT and PE, hypothyroidism, borderline diabetic, sleep apnea and hyperlipidemia. She was just recently hospitalized and discharged from [facility] on 11/28/2017 after having a right foot cellulitis with hematoma and possible abscess. She underwent incision and drainage of that area. Wound cultures had grown staph epidermidis. And infectious disease recommended doxycycline 100 mg twice a day for one week at time of discharge. Patient is still currently on doxycycline at home. She came into the emergency room with complaints of severe pain in her right foot. She had been evaluated by both orthopedics and Dr. Paredes in the outpatient setting. Her Dr. Paredes recommended patient to come to the ER for further evaluation and pain control. X-ray of the right foot had shown soft tissue swelling. No evidence of fracture. Orthopedics were consulted as well as infectious disease. Doppler was negative for a right lower extremity DVT. She did have some minimal yellowish drainage on the bandage. No fever or chills. White count has dropped from 3-1.8. She did have some evidence of acute kidney injury with a creatinine of 1.13 up to 1.25. She's receiving IV fluids and Lasix on hold. Also had some hypotension again this is improving with IV fluids. Patient did receive Toradol, Motrin and morphine for pain control. Toradol and Motrin will be discontinued due to the acute kidney injury. Patient denies any fever or chills or sweats. Denies any nausea vomiting. Denies any chest pain shortness of breath. Denies any difficulties urinating. Reports pain with walking. On 12/06/2017 Today patient is feeling somewhat better, pain in her foot has subsided somewhat, culture of the wound is positive for gram-negative bacilli, currently patient is maintained on IV vancomycin only, will add IV Zosyn until final culture result is available. Otherwise she denies any other complaints at this time. On 12/07/2017 patient is alert and oriented 3 in no apparent distress she is still complaining of severe right foot pain otherwise no complaints at this time there is no fever or chills no headache or dizziness no chest pain no shortness of breath no cough no nausea or vomiting no abdominal pain and no urinary symptoms On 12/08/2017 patient is alert and oriented 3 still complaining of severe pain in her right foot otherwise she denies any complaints there is no fever or chills no headache or dizziness no chest pain no shortness of breath no cough no palpitation no nausea or vomiting no abdominal pain and no urinary symptoms. Patient maintained on cefepime per infectious disease recommendation, wound culture positive for pseudomonas aeruginosa Objective - Vital Signs Vital signs: Vital Signs Temp 97.5 F L 12/08/17 05:40 Pulse 65 12/08/17 05:40 Resp 16 12/08/17 05:40 BP 108/59 12/08/17 05:40 Pulse Ox 100 12/08/17 05:40 Intake & Output 12/07/17 12/08/17 12/08/17 18:59 06:59 18:59 Intake Total 240 50 Balance 240 50 Intake: Intake, IV Titration 50 Amount Cefepime 2 gm In Sodium 50 Chloride 0.9% 50 ml @ 100 mls/hr IVPB Q12H [facility] Rx# :[id number] Oral 240 Other: Voiding Method Bedside Commode Bedside Commode Bedside Commode # Voids 3 1 1 - Exam Head normocephalic Neck supple Lungs clear to auscultation bilaterally no wheezing or crackles Heart regular rate and rhythm S1-S2, no rub or gallop Abdomen is soft nontender nondistended positive bowel sounds no hepatosplenomegaly Extremities right foot swelling on the top of foot. Tender with palpation. Incision site minimal erythema noted. Bandage shows some serous drainage. Bruising from last admission has resolved Neuro alert and orientated to 3 - Labs CBC & Chem 7: 12/08/17 07:18 12/08/17 07:18 Labs: Abnormal Lab Results - Last 24 Hours (Table) 12/07/17 12/07/17 12/08/17 Range/Units 17:40 20:25 07:18 WBC 2.6 L (3.8-10.6) k/uL Plt Count 93 L (150-450) k/uL Lymphocytes # 0.5 L (1.0-4.8) k/uL PT (9.0-12.0) sec INR (<1.2) Chloride (98-107) mmol/L POC Glucose (mg/dL) 105 H 129 H (75-99) mg/dL Total Protein (6.3-8.2) g/dL Albumin (3.5-5.0) g/dL 12/08/17 12/08/17 12/08/17 Range/Units 07:18 07:18 11:12 WBC (3.8-10.6) k/uL Plt Count (150-450) k/uL Lymphocytes # (1.0-4.8) k/uL PT 13.2 H (9.0-12.0) sec INR 1.4 H (<1.2) Chloride 109 H (98-107) mmol/L POC Glucose (mg/dL) 135 H (75-99) mg/dL Total Protein 5.0 L (6.3-8.2) g/dL Albumin 3.2 L (3.5-5.0) g/dL Microbiology - Last 24 Hours (Table) 12/04/17 19:25 Blood Culture - Preliminary Blood No Growth after 72 hours 12/05/17 11:00 Anaerobic Culture - Preliminary Foot - Right 12/05/17 11:00 Gram Stain - Final Foot - Right Wound Culture - Final Pseudomonas aeruginosa Assessment and Plan Plan: 1. Right foot pain with recent I&D for right foot hematoma and cellulitis: We' ll continue doxycycline. Check wound culture. Infectious disease will be consulted. X-ray completed showing soft tissue swelling. Venous Doppler was negative for DVT the right leg 2. Acute kidney injury: Hold Lasix. Continue with IV fluids. Also will discontinue the Motrin and Toradol. 3. Leukopenia white count 1.8. Continue to monitor. Possibly due to patient' s recent infection 4. History of CVA with expressive dysphasia 5. History of DVT and PE maintained on Coumadin. INR subtherapeutic at 1.7. Patient is receiving Coumadin 6 mg tonight. Continue to monitor PT/INR 7. History of multiple sclerosis 8. Borderline diabetic add sliding scale coverage GI prophylaxis Protonix and DVT prophylaxis Coumadin Today IV Zosyn was added continue current management otherwise will recheck labs in a.m.
[2017-12-08] MEDS: CHOLECALCIFEROL 1,000 UNIT TAB PO SCH (12:57)
[2017-12-08] MEDS: FOLIC ACID 1 MG TAB PO SCH (12:58)
--- NOTE | 2017-12-08 15:11 | P.PN ---
Subjective Progress Note Date: 12/08/17 Principal diagnosis: S/P I and D right foot Patient is seen at bedside this morning, 12/08/2017. She is status post I & D of the right foot performed on 11/22/17. She was admitted 12/04/17 for further evaluation and management regarding her foot wound and pain. Infectious disease is following. Wound cultures have shown gram-negative bacilli. She is being covered with IV antibiotics. She feels her pain and foot symptoms are the same or improved today. She is resting comfortably in bed this morning. She has no new complaints. She is denying new numbness, tingling, calf pain, fever, chills, chest pain or shortness of breath. Objective - Vital Signs Vital signs: Vital Signs Temp 97.5 F L 12/08/17 05:40 Pulse 62 12/08/17 14:08 Resp 16 12/08/17 14:08 BP 113/59 12/08/17 14:08 Pulse Ox 97 12/08/17 14:08 Intake & Output 12/07/17 12/08/17 12/08/17 18:59 06:59 18:59 Intake Total 240 50 980 Balance 240 50 980 Intake: Intake, IV Titration 50 Amount Cefepime 2 gm In Sodium 50 Chloride 0.9% 50 ml @ 100 mls/hr IVPB Q12H [facility] Rx# :[id number] Oral 240 980 Other: Voiding Method Bedside Commode Bedside Commode Bedside Commode # Voids 3 1 3 - Exam Inspection of the right foot shows improved healing surgical wound. There is minimal drainage. No jean-claude purulence was able to be expressed. There is no diffuse erythema. There is some erythema around the wound edges as expected. There is no active bleeding. Motor and sensation intact throughout the right foot and lower extremity. 2+ dorsalis pedis pulse present and less than 2 second capillary refill is present in all digits. - Constitutional General appearance: Present: no acute distress - Labs CBC & Chem 7: 12/08/17 07:18 12/08/17 07:18 Labs: Abnormal Lab Results - Last 24 Hours (Table) 12/07/17 12/07/17 12/08/17 Range/Units 17:40 20:25 07:18 WBC 2.6 L (3.8-10.6) k/uL Plt Count 93 L (150-450) k/uL Lymphocytes # 0.5 L (1.0-4.8) k/uL PT (9.0-12.0) sec INR (<1.2) Chloride (98-107) mmol/L POC Glucose (mg/dL) 105 H 129 H (75-99) mg/dL Total Protein (6.3-8.2) g/dL Albumin (3.5-5.0) g/dL 12/08/17 12/08/17 12/08/17 Range/Units 07:18 07:18 11:12 WBC (3.8-10.6) k/uL Plt Count (150-450) k/uL Lymphocytes # (1.0-4.8) k/uL PT 13.2 H (9.0-12.0) sec INR 1.4 H (<1.2) Chloride 109 H (98-107) mmol/L POC Glucose (mg/dL) 135 H (75-99) mg/dL Total Protein 5.0 L (6.3-8.2) g/dL Albumin 3.2 L (3.5-5.0) g/dL Microbiology - Last 24 Hours (Table) 12/04/17 19:25 Blood Culture - Preliminary Blood No Growth after 72 hours 12/05/17 11:00 Anaerobic Culture - Preliminary Foot - Right 12/05/17 11:00 Gram Stain - Final Foot - Right Wound Culture - Final Pseudomonas aeruginosa Assessment and Plan (1) Foot pain, right Narrative/Plan: There continues to be no surgical intervention planned. Recommend continued wound care and antibiotics per infectious disease. Continue pain management per primary team. We will sign off for now. She may follow up as an outpatient. Thank you Current Visit: Yes Status: Acute Priority: Medium Code(s): M79.671 - PAIN IN RIGHT FOOT SNOMED Code(s): 25174928 Time with Patient: Less than 30
--- NOTE | 2017-12-08 16:03 | PN ---
PROGRESS NOTE DATE OF SERVICE: 12/08/2017. REASON FOR FOLLOWUP: Right foot wound with Pseudomonas infection and cellulitis. INTERVAL HISTORY: The patient is currently afebrile. She is breathing comfortably. Denies having any chest pain or shortness of breath. No abdominal pain. Pain to the right foot is currently improved. EXAMINATION: Blood pressure is 113/59, pulse of 52, temperature 97.5. She is 97% on room air. General description is a middle aged female, lying in bed in no distress. RESPIRATORY SYSTEM: Unlabored breathing. Clear to auscultation anteriorly. HEART: S1, S2. Regular rate and rhythm. ABDOMEN: Soft. No tenderness. Right foot with some swelling. Redness has resolved. No drainage. LABS: Hemoglobin 12.2, white count 2.6 with a BUN of 16, creatinine 0.98. DIAGNOSTIC IMPRESSION AND PLAN: Patient with right foot wound with secondary cellulitis. Culture positive for Pseudomonas aeruginosa. Patient at this time will continue on cefepime over the weekend as the patient has shown significant improvement. If she could improve hopefully will not need antibiotic on discharge. Plan of care discussed with the correctional case records supervisor. Continue supportive care. MMODL / IJN: [id number] /
[2017-12-08] MEDS: LORATADINE 10 MG TAB PO SCH (17:23)
[2017-12-08] MEDS: MONTELUKAST 10 MG TAB PO SCH (17:23)
[2017-12-08 17:30] LABS: Glucose,Whole Blood 101 mg/dL (75-99)
[2017-12-08] MEDS ORDERED: WARFARIN 10 MG TAB PO ONE (18:00)
[2017-12-08 20:07] LABS: Glucose,Whole Blood 154 mg/dL (75-99)
[2017-12-08] MEDS: CITALOPRAM HYDROBROMIDE 20 MG TAB PO SCH (21:38)
[2017-12-08] MEDS: PRAVASTATIN SODIUM 20 MG TAB PO SCH (21:38)
[2017-12-08] MEDS: MORPHINE SULFATE 2 MG/ML SYRINGE IVP PRN (21:47)
[2017-12-09] MEDS: LEVOTHYROXINE 50 MCG TAB PO SCH (06:50)
[2017-12-09 06:54] LABS: Glucose,Whole Blood 90 mg/dL (75-99)
[2017-12-09 07:19] LABS: INR 1.5 (<1.2); Prothrombin Time 14.3 sec (9.0-12.0)
[2017-12-09 07:25] LABS: Basophils % (A) 1 %; Eosinophils # (A) 0.1 k/uL (0-0.7); Eosinophils % (A) 3 %; HCT 35.7 % (34.0-46.0); HGB 11.8 gm/dL (11.4-16.0); Lymphocytes # (A) 0.6 k/uL (1.0-4.8); Lymphocytes % (A) 21 %; MCH 29.9 pg (25.0-35.0); MCHC 33.1 g/dL (31.0-37.0); MCV 90.2 fL (80.0-100.0); Mean Platelet Volume 10.6; Monocytes # (A) 0.2 k/uL (0-1.0); Monocytes % (A) 8 %; Neutrophils # (A) 1.8 k/uL (1.3-7.7); Neutrophils % (A) 65 %; RBC 3.96 m/uL (3.80-5.40); RDW 13.8 % (11.5-15.5); WBC 2.8 k/uL (3.8-10.6)
[2017-12-09 07:28] LABS: Albumin 3.2 g/dL (3.5-5.0); Calcium 9.1 mg/dL (8.4-10.2); Potassium 4.3 mmol/L (3.5-5.1); Total Bilirubin 0.6 mg/dL (0.2-1.3); Total Protein 5.1 g/dL (6.3-8.2)
[2017-12-09 07:30] LABS: Platelet Count 92 k/uL (150-450)
[2017-12-09] MEDS: DIMETHYL FUMARATE 240 MG PO SCH ×2 (08:09→20:12)
[2017-12-09] MEDS: POTASSIUM CHLORIDE ER 20 MEQ TAB.ER PO SCH ×2 (08:10→16:27)
[2017-12-09] MEDS: ASPIRIN 81 MG PO SCH (08:10)
[2017-12-09] MEDS: FLUTICASONE 50MCG/SPRAY NASAL 16GM EA NOSTRIL SCH (08:10)
[2017-12-09] MEDS: PANTOPRAZOLE 40 MG TABLET PO SCH (08:10)
[2017-12-09] MEDS: INSULIN ASPART 100 UNIT/ML 1 ML 10 ML VIAL SQ SCH ×4 (08:11→22:10)
[2017-12-09] MEDS: METHYLPHENIDATE HCL 10 MG TAB PO SCH (08:16)
[2017-12-09] MEDS: PREGABALIN 100 MG CAP PO SCH ×3 (08:16→20:12)
[2017-12-09] MEDS: FERROUS SULFATE 325 MG TAB PO SCH (08:59)
--- NOTE | 2017-12-09 09:57 | P.PN ---
Progress Note - Text Progress Note Date: 12/09/17 The patient is a very pleasant 62-year-old female with a medical history significant for multiple sclerosis and chronic pain. She is well known to our service. She underwent evacuation of a hematoma 2 weeks ago. There was no sign of deep infection at that time. She was seen in my office earlier this week. Her wound appeared benign at that time but she had pain out of proportion. She was admitted to internal medicine for pain control. This morning she continues to have some discomfort in her foot but says she is feeling better. She continues to be very confused and refers to her body parts as her "house." On examination of her right foot there is a clean-appearing dressing in place. The dressing was gently taken back and the wound was inspected. There is mild swelling throughout the foot. The surgical incision is open but there is no drainage. There is minimal erythema around the incision. There is resolving ecchymosis in the toes. There is no pain with passive range of motion of the toes. There is no palpable fluctuance or subcutaneous crepitance. The patient's exam is benign with no sign of deep infection. I have no plans for surgical intervention at this time. I would recommend continued wound care and antibiotics under the recommendation of Dr. Glasgow. She can weight-bear as tolerated. A protective boot may be of benefit although she has found this uncomfortable in the past. We will continue to follow peripherally.
[2017-12-09 10:45] LABS: Large Platelets Present
[2017-12-09 11:46] LABS: Glucose,Whole Blood 98 mg/dL (75-99)
[2017-12-09] MEDS: CEFEPIME 2 GM in SODIUM CHLORIDE 0.9% 50 ML IVPB SCH ×2 (12:02→22:09)
[2017-12-09] MEDS: FOLIC ACID 1 MG TAB PO SCH (12:02)
[2017-12-09] MEDS: CHOLECALCIFEROL 1,000 UNIT TAB PO SCH (12:02)
[2017-12-09] MEDS: MORPHINE SULFATE 2 MG/ML SYRINGE IVP PRN ×3 (12:09→22:17)
--- NOTE | 2017-12-09 15:26 | P.PN ---
Subjective Progress Note Date: 12/09/17 Patient is doing well today. Lower extremity dressing was changed just right before I saw her. Objective - Vital Signs Vital signs: Vital Signs Temp 97.8 F 12/09/17 05:30 Pulse 60 12/09/17 08:00 Resp 16 12/09/17 08:00 BP 120/69 12/09/17 05:30 Pulse Ox 97 12/09/17 05:30 Intake & Output 12/08/17 12/09/17 12/09/17 18:59 06:59 18:59 Intake Total 980 Balance 980 Intake: Oral 980 Other: Voiding Method Bedside Commode Bedside Commode Bedside Commode # Voids 3 1 1 - Exam General: The patient is awake and alert, in no distress Eye: there is normal conjunctiva bilaterally. Neck: The neck is supple, there is no JVD. Cardiovascular: Normal S1-S2, no S3-S4, no murmurs. Respiratory: Lungs clear to auscultation bilaterally Gastrointestinal: Abdomen is soft, nontender Musculoskeletal: Both legs wrapped with Dung wrap up to the knee Neurological:. Speech is normal. Skin: Skin is warm and dry - Labs CBC & Chem 7: 12/09/17 06:46 12/09/17 06:46 Labs: Abnormal Lab Results - Last 24 Hours (Table) 12/08/17 12/08/17 12/09/17 Range/Units 17:16 20:05 06:46 WBC 2.8 L (3.8-10.6) k/uL Plt Count 92 L (150-450) k/uL Lymphocytes # 0.6 L (1.0-4.8) k/uL PT (9.0-12.0) sec INR (<1.2) Chloride (98-107) mmol/L POC Glucose (mg/dL) 101 H 154 H (75-99) mg/dL Total Protein (6.3-8.2) g/dL Albumin (3.5-5.0) g/dL 12/09/17 12/09/17 Range/Units 06:46 06:46 WBC (3.8-10.6) k/uL Plt Count (150-450) k/uL Lymphocytes # (1.0-4.8) k/uL PT 14.3 H (9.0-12.0) sec INR 1.5 H (<1.2) Chloride 109 H (98-107) mmol/L POC Glucose (mg/dL) (75-99) mg/dL Total Protein 5.1 L (6.3-8.2) g/dL Albumin 3.2 L (3.5-5.0) g/dL Microbiology - Last 24 Hours (Table) 12/05/17 11:00 Anaerobic Culture - Final Foot - Right 12/04/17 19:25 Blood Culture - Preliminary Blood No Growth after 96 hours Assessment and Plan Assessment: 1. Right foot pain with recent I&D for right foot hematoma and cellulitis: Infectious disease consulted. X-ray completed showing soft tissue swelling. Venous Doppler was negative for DVT the right leg 2. Acute kidney injury: Improving 3. Leukopenia white count 1.8. Continue to monitor. Possibly due to patient' s recent infection 4. History of CVA with expressive dysphasia 5. History of DVT and PE maintained on Coumadin. Continue to monitor PT/INR 7. History of multiple sclerosis 8. Borderline diabetic add sliding scale coverage GI prophylaxis Protonix and DVT prophylaxis Coumadin
[2017-12-09] MEDS ORDERED: ACETAMINOPHEN TAB 325 MG TAB PO PRN (15:55)
[2017-12-09] MEDS: LORATADINE 10 MG TAB PO SCH (16:26)
[2017-12-09] MEDS: MONTELUKAST 10 MG TAB PO SCH (16:27)
[2017-12-09 17:21] LABS: Glucose,Whole Blood 119 mg/dL (75-99)
[2017-12-09] MEDS: WARFARIN 5 MG TAB PO SCH (17:35)
[2017-12-09] MEDS: CITALOPRAM HYDROBROMIDE 20 MG TAB PO SCH (20:12)
[2017-12-09] MEDS: PRAVASTATIN SODIUM 20 MG TAB PO SCH (20:12)
--- NOTE | 2017-12-09 20:22 | PN ---
PROGRESS NOTE DATE OF SERVICE: 12/09/2017. REASON FOR FOLLOWUP: Right foot wound cellulitis. INTERVAL HISTORY: The patient is afebrile. She has been complaining of pain to the right foot area. The patient saying it was getting better yesterday. Denies having any chest pain or shortness of breath or cough. No abdominal pain or diarrhea. EXAMINATION: Blood pressure 111/59 with a pulse of 82, temperature 97.5. She is 93% on room air. General description is a middle aged female lying in bed in no distress. Respiratory system: Unlabored breathing, clear to auscultation anteriorly. Heart S1, S2. Regular rate and rhythm. ABDOMEN: Soft and no tenderness. Right foot is currently dressed up. No obvious drainage on the dressing. LABS: Hemoglobin 11.8, white count 2.8 with a BUN of 16, creatinine 0.91. DIAGNOSTIC IMPRESSION AND PLAN: Patient with on the right foot wound secondary to cellulitis. The patient to continue with cefepime, booker wrap to keep the swelling down and reevaluate the wound tomorrow. Continue supportive care. MMODL / IJN: [id number] /
[2017-12-09 20:27] LABS: Glucose,Whole Blood 175 mg/dL (75-99)
[2017-12-09 22:25] LABS: Glucose,Whole Blood 146 mg/dL (75-99)
[2017-12-10] MEDS: LEVOTHYROXINE 50 MCG TAB PO SCH (06:16)
[2017-12-10 07:16] LABS: Glucose,Whole Blood 90 mg/dL (75-99)
[2017-12-10] MEDS: INSULIN ASPART 100 UNIT/ML 1 ML 10 ML VIAL SQ SCH ×4 (07:17→21:21)
[2017-12-10] MEDS: PREGABALIN 100 MG CAP PO SCH ×3 (07:23→21:20)
[2017-12-10] MEDS: DIMETHYL FUMARATE 240 MG PO SCH ×2 (07:23→21:20)
[2017-12-10] MEDS: METHYLPHENIDATE HCL 10 MG TAB PO SCH (07:23)
[2017-12-10] MEDS: POTASSIUM CHLORIDE ER 20 MEQ TAB.ER PO SCH ×2 (07:24→17:34)
[2017-12-10] MEDS: FLUTICASONE 50MCG/SPRAY NASAL 16GM EA NOSTRIL SCH (07:24)
[2017-12-10] MEDS: ASPIRIN 81 MG PO SCH (07:24)
[2017-12-10] MEDS: PANTOPRAZOLE 40 MG TABLET PO SCH (07:25)
[2017-12-10] MEDS: FERROUS SULFATE 325 MG TAB PO SCH (07:25)
[2017-12-10 07:57] LABS: INR 1.7 (<1.2); Prothrombin Time 15.8 sec (9.0-12.0)
[2017-12-10] MEDS: CEFEPIME 2 GM in SODIUM CHLORIDE 0.9% 50 ML IVPB SCH ×2 (10:43→23:18)
[2017-12-10 11:25] LABS: Glucose,Whole Blood 103 mg/dL (75-99)
[2017-12-10] MEDS: CHOLECALCIFEROL 1,000 UNIT TAB PO SCH (11:28)
[2017-12-10] MEDS: FOLIC ACID 1 MG TAB PO SCH (11:28)
--- NOTE | 2017-12-10 15:09 | P.PN ---
Subjective Progress Note Date: 12/10/17 No events overnight Objective - Vital Signs Vital signs: Vital Signs Temp 97.5 F L 12/10/17 06:39 Pulse 52 L 12/10/17 08:00 Resp 18 12/10/17 08:00 BP 100/63 12/10/17 06:39 Pulse Ox 94 L 12/10/17 06:39 Intake & Output 12/09/17 12/10/17 12/10/17 18:59 06:59 18:59 Intake Total 50 Balance 50 Intake: Intake, IV Titration 50 Amount Cefepime 2 gm In Sodium 50 Chloride 0.9% 50 ml @ 100 mls/hr IVPB Q12H [facility] Rx# :[id number] Other: Voiding Method Bedside Commode Bedside Commode Toilet # Voids 1 1 2 - Exam General: The patient is awake and alert, in no distress Eye: there is normal conjunctiva bilaterally. Neck: The neck is supple, there is no JVD. Cardiovascular: Normal S1-S2, no S3-S4, no murmurs. Respiratory: Lungs clear to auscultation bilaterally Gastrointestinal: Abdomen is soft, nontender Musculoskeletal: Both legs wrapped with Dung wrap up to the knee Neurological:. Speech is normal. Skin: Skin is warm and dry - Labs CBC & Chem 7: 12/09/17 06:46 12/09/17 06:46 Labs: Abnormal Lab Results - Last 24 Hours (Table) 12/09/17 12/09/17 12/09/17 Range/Units 17:20 20:06 22:03 PT (9.0-12.0) sec INR (<1.2) POC Glucose (mg/dL) 119 H 175 H 146 H (75-99) mg/dL 12/10/17 12/10/17 Range/Units 07:27 11:24 PT 15.8 H (9.0-12.0) sec INR 1.7 H (<1.2) POC Glucose (mg/dL) 103 H (75-99) mg/dL Microbiology - Last 24 Hours (Table) 12/04/17 19:25 Blood Culture - Preliminary Blood No Growth after 120 hours 12/05/17 11:00 Anaerobic Culture - Final Foot - Right Assessment and Plan Assessment: 1. Right foot pain with recent I&D for right foot hematoma and cellulitis: Infectious disease consulted. X-ray completed showing soft tissue swelling. Venous Doppler was negative for DVT the right leg 2. Acute kidney injury: Improving 3. Leukopenia white count 1.8. Continue to monitor. Possibly due to patient' s recent infection 4. History of CVA with expressive dysphasia 5. History of DVT and PE maintained on Coumadin. Continue to monitor PT/INR 7. History of multiple sclerosis 8. Borderline diabetic add sliding scale coverage GI prophylaxis Protonix and DVT prophylaxis Coumadin
[2017-12-10] MEDS: WARFARIN 5 MG TAB PO SCH (17:33)
[2017-12-10] MEDS: LORATADINE 10 MG TAB PO SCH (17:34)
[2017-12-10] MEDS: MONTELUKAST 10 MG TAB PO SCH (17:34)
[2017-12-10 17:37] LABS: Glucose,Whole Blood 129 mg/dL (75-99)
[2017-12-10 20:44] LABS: Glucose,Whole Blood 121 mg/dL (75-99)
[2017-12-10] MEDS: PRAVASTATIN SODIUM 20 MG TAB PO SCH (21:20)
[2017-12-10] MEDS: CITALOPRAM HYDROBROMIDE 20 MG TAB PO SCH (21:20)
--- NOTE | 2017-12-10 22:11 | PN ---
PROGRESS NOTE DATE OF SERVICE: 12/10/2017. REASON FOR FOLLOWUP: Right foot wound with secondary cellulitis. INTERVAL HISTORY: The patient is afebrile. She is breathing comfortably. Denies any chest pain, shortness of breath, cough. No abdominal pain. Still complaining of persistent severe pain to the right foot area. EXAMINATION: Blood pressure 103/50 with a pulse of 61, temperature 97.8. She is 97% on room air. General description is a middle aged female, lying in bed in no distress. Respiratory system: Unlabored breathing. Clear to auscultation anteriorly. Heart S1, S2. Regular rate and rhythm. ABDOMEN: Soft, no tenderness. Right foot swelling and redness has much improved to almost resolved. LABS: No new labs have been obtained today. DIAGNOSTIC IMPRESSION AND PLAN: Patient with right foot infected hematoma, status post drainage admission to the hospital. Culture at this time showing Pseudomonas aeruginosa. The patient cellulitis has much improved. Recommend a short course of oral Cipro 750 twice a day for about a week. No need for a PICC line or line outpatient IV antibiotic therapy. This was explained to the patient and and they agree with the plan. MMODL / IJN: [id number] /
[2017-12-10 22:13] VITALS: RESP 16
[2017-12-11 05:55] VITALS: TEMP 97.9
[2017-12-11] MEDS: LEVOTHYROXINE 50 MCG TAB PO SCH (06:00)
[2017-12-11 06:57] LABS: Glucose,Whole Blood 83 mg/dL (75-99)
[2017-12-11] MEDS: INSULIN ASPART 100 UNIT/ML 1 ML 10 ML VIAL SQ SCH ×2 (07:02→12:20)
[2017-12-11 07:12] LABS: INR 1.6 (<1.2); Prothrombin Time 14.7 sec (9.0-12.0)
[2017-12-11] MEDS: DIMETHYL FUMARATE 240 MG PO SCH (08:28)
[2017-12-11] MEDS: METHYLPHENIDATE HCL 10 MG TAB PO SCH (08:28)
[2017-12-11] MEDS: FERROUS SULFATE 325 MG TAB PO SCH (08:28)
[2017-12-11] MEDS: PREGABALIN 100 MG CAP PO SCH (08:28)
[2017-12-11] MEDS: FLUTICASONE 50MCG/SPRAY NASAL 16GM EA NOSTRIL SCH (08:28)
[2017-12-11] MEDS: ASPIRIN 81 MG PO SCH (08:28)
[2017-12-11] MEDS: POTASSIUM CHLORIDE ER 20 MEQ TAB.ER PO SCH (08:29)
[2017-12-11] MEDS: PANTOPRAZOLE 40 MG TABLET PO SCH (08:30)
[2017-12-11] MEDS: CEFEPIME 2 GM in SODIUM CHLORIDE 0.9% 50 ML IVPB SCH (10:30)
[2017-12-11 12:08] LABS: Glucose,Whole Blood 73 mg/dL (75-99)
[2017-12-11] MEDS: CHOLECALCIFEROL 1,000 UNIT TAB PO SCH (12:32)
[2017-12-11] MEDS: FOLIC ACID 1 MG TAB PO SCH (12:33)
--- NOTE | 2017-12-11 13:54 | P.DS ---
Providers Date of admission: 12/05/17 18:19 Expected date of discharge: 12/11/17 Attending physician: Sarah Paredes Consults: 12/05/17 08:47 Consult Physician Routine Consulting Provider: Hernán Skinner Consult Reason/Comments: right foot pain Do you want consulting provider notified?: Yes 12/05/17 11:24 Consult Physician Routine Consulting Provider: Homero Glasgow Consult Reason/Comments: right foot infection Do you want consulting provider notified?: Yes Primary care physician: Sarah Paredes [facility] Course: Discharge diagnosis 1. Right foot pain with recent I&D for right foot hematoma and cellulitis: Infectious disease consulted. X-ray completed showing soft tissue swelling. Venous Doppler was negative for DVT the right leg. Wound culture grew pseudomonas aeruginosa. Patient completed antibiotic treatment during her hospitalization with IV cefepime. Case discussed with infectious disease. Patient does not require antibiotics at time of discharge. 2. Acute kidney injury: Improving 3. Leukopenia white count 1.8. Continue to monitor. Possibly due to patient' s recent infection 4. History of CVA with expressive dysphasia 5. History of DVT and PE maintained on Coumadin. Continue to monitor PT/INR. INR is subtherapeutic at 1.6. Patient will receive Coumadin 7.5 mg today before discharge. Visiting continue home dose of Coumadin 6 mg daily. We'll patient seen in the office for recheck on PT/INR 7. History of multiple sclerosis 8. Borderline diabetic Hospital course This is a 62-year-old female with a known past medical history of multiple sclerosis, CVA with expressive aphasia, DVT and PE, hypothyroidism, borderline diabetic, sleep apnea and hyperlipidemia. She was just recently hospitalized and discharged from [facility] on 11/28/2017 after having a right foot cellulitis with hematoma and possible abscess. She underwent incision and drainage of that area. Wound cultures had grown staph epidermidis. And infectious disease recommended doxycycline 100 mg twice a day for one week at time of discharge. Patient is still currently on doxycycline at home. She came into the emergency room with complaints of severe pain in her right foot. She had been evaluated by both orthopedics and Dr. Paredes in the outpatient setting. Her Dr. Paredes recommended patient to come to the ER for further evaluation and pain control. X-ray of the right foot had shown soft tissue swelling. No evidence of fracture. Orthopedics were consulted as well as infectious disease. Doppler was negative for a right lower extremity DVT. She did have some minimal yellowish drainage on the bandage. No fever or chills. White count has dropped from 3-1.8. She did have some evidence of acute kidney injury with a creatinine of 1.13 up to 1.25. She's receiving IV fluids and Lasix on hold. Also had some hypotension again this is improving with IV fluids. Patient did receive Toradol, Motrin and morphine for pain control. Toradol and Motrin will be discontinued due to the acute kidney injury. Patient denies any fever or chills or sweats. Denies any nausea vomiting. Denies any chest pain shortness of breath. Denies any difficulties urinating. Reports pain with walking. Patient was seen by orthopedics and infectious disease. No further surgical intervention was required. Patient was treated with IV antibiotics for the pseudomonas aeruginosa in the wound culture. Her foot has improved greatly. Decrease in swelling and redness. She has been up to ambulate. Patient completed antibiotic treatment during this admission. She'll be discharged home without antibiotics per infectious disease. Case discussed with infectious disease. Patient is stable for discharge. She'll follow up with Dr. Paredes in the office for recheck on her PT/INR in 3 days. Patient will follow-up with Dr. Skinner in 2 weeks Patient Condition at Discharge: Stable Plan - Discharge Summary Discharge Rx Participant: No New Discharge Prescriptions: Continue Baclofen [Lioresal] 10 mg PO DAILY@1700 Aspirin 81 mg PO DAILY Montelukast [Singulair] 10 mg PO DAILY@1700 Furosemide [Lasix] 40 mg PO BID@0900,1700 Potassium Chloride [Potassium Chloride ER] 20 meq PO BID@0900,1700 Citalopram Hydrobromide [CeleXA] 40 mg PO HS Nitroglycerin Sl Tabs [Nitrostat] 0.4 mg SUBLINGUAL Q5M PRN PRN Reason: Chest Pain Pantoprazole Sodium [Protonix] 40 mg PO DAILY@0600 Ferrous Sulfate [Feosol] 325 mg PO DAILY@0900 Fexofenadine HCl [Mimi Allergy] 180 mg PO DAILY@1700 Dimethyl Fumarate [Tecfidera] 240 mg PO BID@0900,2100 Cholecalciferol [Vitamin D3] 2,000 unit PO DAILY Pravastatin Sodium [Pravachol] 20 mg PO HS@2099 Methylphenidate HCl [Ritalin] 20 mg PO QAM@0900 Fluticasone Nasal [place] [Flonase Nasal [place]] 1 spray EA NOSTRIL DAILY fentaNYL [Fentanyl] 25 mcg TRANSDERM Q72H Pregabalin [Lyrica] 100 mg PO TID@0900,1700,2099 Folic Acid 0.4 mg PO DAILY Biotin 10,000 mcg PO BID@0900,1700 Levothyroxine Sodium [Synthroid] 50 mcg PO DAILY@0600 Warfarin Sodium [Coumadin] 6 mg PO DAILY #30 tablet Discharge Medication List Aspirin 81 mg PO DAILY 11/08/13 [History] Baclofen [Lioresal] 10 mg PO DAILY@169911/08/13 [History] Citalopram Hydrobromide [CeleXA] 40 mg PO HS 11/08/13 [History] Ferrous Sulfate [Feosol] 325 mg PO DAILY@0900 11/08/13 [History] Fexofenadine HCl [Mimi Allergy] 180 mg PO DAILY@169911/08/13 [History] Furosemide [Lasix] 40 mg PO BID@0900,1700 11/08/13 [History] Montelukast [Singulair] 10 mg PO DAILY@169911/08/13 [History] Nitroglycerin Sl Tabs [Nitrostat] 0.4 mg SUBLINGUAL Q5M PRN 11/08/13 [History] Pantoprazole Sodium [Protonix] 40 mg PO DAILY@0600 11/08/13 [History] Potassium Chloride [Potassium Chloride ER] 20 meq PO BID@0900,1700 11/08/13 [ History] Cholecalciferol [Vitamin D3] 2,000 unit PO DAILY 11/18/15 [History] Dimethyl Fumarate [Tecfidera] 240 mg PO BID@0900,209911/18/15 [History] Fluticasone Nasal [place] [Flonase Nasal [place]] 1 spray EA NOSTRIL DAILY 11/18/15 [History] Methylphenidate HCl [Ritalin] 20 mg PO QAM@0900 11/18/15 [History] Pravastatin Sodium [Pravachol] 20 mg PO HS@209911/18/15 [History] fentaNYL [Fentanyl] 25 mcg TRANSDERM Q72H 11/18/15 [History] Pregabalin [Lyrica] 100 mg PO TID@0900,1700,2100 07/13/16 [History] Folic Acid 0.4 mg PO DAILY 08/18/16 [History] Biotin 10,000 mcg PO BID@0900,1700 07/06/17 [History] Levothyroxine Sodium [Synthroid] 50 mcg PO DAILY@0600 11/20/17 [History] Warfarin Sodium [Coumadin] 6 mg PO DAILY #30 tablet 11/28/17 [Rx] Follow up Appointment(s)/Referral(s): Sarah Paredes MD [Primary Care Provider] - 3 Days [facility] Visiting Nurse, [NON-STAFF] - As Needed Hernán Skinner MD [Medical Doctor] - 2 Weeks Activity/Diet/Wound Care/Special Instructions: Diet: regular Activity: as tolerated Discharge Disposition: HOME WITH HOME HEALTH SERVICES
[2017-12-11 14:32] VITALS: BP 113/64; PULSE 68
[2017-12-11] MEDS ORDERED: WARFARIN 7.5 MG TAB PO ONE (18:00)
--- NOTE | 2017-12-11 19:57 | PN ---
PROGRESS NOTE DATE OF SERVICE: 12/11/2017 REASON FOR FOLLOWUP: Right foot wound and cellulitis. INTERVAL HISTORY: The patient was seen on rounds this morning. The patient has been afebrile. Overall pain to the right foot is currently controlled. Denies having any chest pain, shortness of breath or cough. No abdominal pain or any diarrhea. PHYSICAL EXAMINATION: Her blood pressure is 113/64 with a pulse of 68, temperature of 97.1. She is 96% on room air. General description is an elderly female up in the room in no distress. RESPIRATORY SYSTEM: Unlabored breathing. Clear to auscultation anteriorly. HEART: S1, S2. Regular rate and rhythm. ABDOMEN: Soft. No tenderness. Right foot is currently dressed up. However, the RN mentioned significant improvement of swelling and redness. LABS: No new labs today. DIAGNOSTIC IMPRESSION AND PLAN: Patient with right foot wound with secondary cellulitis. Culture was positive for Pseudomonas aeruginosa. Patient has received about a week of IV antibiotic therapy. That should have been more than enough. We tried to give her the oral Cipro. However, this with the cellulitis with QT prolongation. Discussed with the patient and the family. No need for further antibiotic on discharge at this point, as no more eruption of and her cellulitis has resolved. To continue her with local care along with an Dung wrap to keep the swelling down. Continue with supportive care. MMODL / IJN: [id number] /
== END 2017-12-11 15:20 | disposition home health service (06) | DRG 863 ==
LOC: EC 17:14 → 5MS5E 23:33 → UNDOADMOB 23:33 → INTOOBSV 23:33 → OBSVTOIN 23:33 → 5MS5E 12-05 18:19
PROVIDERS: ADMIT Internal Medicine; ATTEND Internal Medicine
DX: T81.4XXA Infection following a procedure, initial encounter (principal); L03.115 Cellulitis of right lower limb; I69.351 Hemiplegia and hemiparesis following cerebral infarction affecting right dominant side; N17.9 Acute kidney failure, unspecified; B96.5 Pseudomonas (aeruginosa) (mallei) (pseudomallei) as the cause of diseases classified elsewhere; D72.819 Decreased white blood cell count, unspecified; E03.9 Hypothyroidism, unspecified; E78.5 Hyperlipidemia, unspecified; F32.9 Major depressive disorder, single episode, unspecified; G35 Multiple sclerosis; G47.30 Sleep apnea, unspecified; I45.81 Long QT syndrome; I69.320 Aphasia following cerebral infarction; M19.90 Unspecified osteoarthritis, unspecified site; M79.7 Fibromyalgia; I69.321 Dysphasia following cerebral infarction; R73.03 Prediabetes; Z79.01 Long term (current) use of anticoagulants; Z79.82 Long term (current) use of aspirin; Z79.899 Other long term (current) drug therapy; Z82.49 Family history of ischemic heart disease and other diseases of the circulatory system; Z82.62 Family history of osteoporosis; Z86.711 Personal history of pulmonary embolism; Z86.718 Personal history of other venous thrombosis and embolism; Z90.710 Acquired absence of both cervix and uterus; Z79.890 Hormone replacement therapy; Z79.891 Long term (current) use of opiate analgesic; Z88.8 Allergy status to other drugs, medicaments and biological substances
CPT/HCPCS: 36415; 80053; 83036; 85025; 85610; 87040; 87070; 87075; 87077; 87186; 87205; 96361; 96374; 99285

== ENCOUNTER → 2018-01-22 | Outpatient (CLI) | payer MEDICARE ==
--- NOTE | 2018-01-23 11:07 | MM ---
Reason for exam: follow-up at short interval from prior study. Last mammogram was performed 7 months ago. History: Patient is postmenopausal. Family history of premenopausal breast cancer in aunt at age 45, breast cancer in aunt, and breast cancer in aunt at age 70. Benign MG stereo VAD BX LT of the left breast, July 18, 2017. Benign cyst aspiration of the right breast, 1995. Physical Findings: Nurse did not find any significant physical abnormalities on exam. MG 3D Diag Mammo W/Cad LT CC, MLO, and XCCL view(s) were taken of the left breast. Prior study comparison: July 05, 2017, left breast MG 3d work up w/cad LT. June 28, 2017, bilateral MG 3d screening mammo w/cad. There are scattered fibroglandular densities. Previous mammotome biopsy in the left breast. No significant new findings when compared with previous films. These results were verbally communicated with the patient and result sheet given to the patient on 01/22/18. ASSESSMENT: Benign, BI-RAD 2 RECOMMENDATION: Follow-up diagnostic mammogram of both breasts in 6 months.
== END ==
LOC: RADMAMWWP 14:29
PROVIDERS: ATTEND Surgery
DX: R92.8 Other abnormal and inconclusive findings on diagnostic imaging of breast (principal)
CPT/HCPCS: 77065; G0279; 77061

== ENCOUNTER 2018-04-04 13:57 | Inpatient (IN) | payer MEDICARE ==
[2018-04-04] MEDS ORDERED: NITROGLYCERIN SL TABS 0.4 MG TAB SUBLINGUAL PRN (15:41)
--- NOTE | 2018-04-04 15:45 | P.HPIM ---
History of Present Illness H&P Date: 04/04/18 Chief Complaint: Pain in lower extremities This is a 62-year-old female who presented as a direct admit from her primary care provider Dr. Paredes with complaints of increased lower extremity weakness and numbness. Patient has a known past medical history of multiple sclerosis and often presents with current presenting symptoms during flareups. Patient states pain started yesterday in her lower legs but has slowly started to travel up. Patient states last flareup of MS was in August of this year. Patient has a known past medical history of CVA with right-sided weakness and dysphasia, fibromyalgia, musculoskeletal disorder, osteoarthritis, pulmonary embolism, sleep apnea, thyroid disorder, depression and right foot infection. CBC, CMP, urinary analysis and chest x-ray has been ordered patient will be started on Solu-Medrol 250 every 6 hours for 10 doses. At this time patient denies chest pain or shortness of breath. Patient denies any nausea vomiting or diarrhea. Patient denies any urinary burning or frequency. patient denies any fevers, chills and muscle aches. Patient denies any recent illness. Patient does state she has been more busy lately with sorting through her house but denies any significant increase in stress. Review of Systems Please refer to HPI otherwise unremarkable Past Medical History Past Medical History: Chest Pain / Angina, CVA/TIA, Fibromyalgia, Musculoskeletal Disorder, Neurologic Disorder, Osteoarthritis (OA), Pulmonary Embolus (PE), Sleep Apnea/CPAP/BIPAP, Thyroid Disorder Additional Past Medical History / Comment(s): MULTIPLE SCLEROSIS, HX OF CVA 2006 WITH R SIDED WEAKNESS AND DYSPHASIA-MUCH IMPROVED, MIGRAINES, SLEEP APNEA( HAS C-PAP MACHINE BUT DOES NOT USE) ABD HERNIA,CHRONIC PAIN ESPECIALLY ON R SIDE OF BODY AND LOW BACK . PAINFUL FOR HER TO LIE FLAT. HX OF NOSEBLEED JUL 2014 AND RECEIVED PLASMA TRANSFUSION. takes pills with applesauce. History of Any Multi-Drug Resistant Organisms: VRE Date of last positivie culture/infection: 10/24/09 confirmed with infectious disease nurse on 08/18/16. MDRO Source:: URINE Past Surgical History: Appendectomy, Cholecystectomy, Hysterectomy Additional Past Surgical History / Comment(s): Incisional hernia repair, laparoscopic lysis of adhesions in 1987, ganglion cyst removal of the left wrist , patent foramen ovale patch in 2006, RF ablation for back pain. Past Anesthesia/Blood Transfusion Reactions: No Reported Reaction Past Psychological History: Depression Additional Psychological History / Comment(s): CELEXA. PT HAS DIFFICULTY W/ SPEECH BUT IS MUCH IMPROVED. HAS TO LOOK AT DIETARY MENU TO ORDER CAN'T DO IT BY PHONE. Pt resides with her spouse. She uses a cane to ambulate. She also has a walker. Spouse drives her to appointments. Spouse assists her with some ADLs when needed. Smoking Status: Never smoker Past Alcohol Use History: None Reported Past Drug Use History: None Reported Additional Drug Use History / Comment(s): Lives at home with her requires some assistance with ADLs at times - Past Family History Mother Family Medical History: Hypertension Additional Family Medical History / Comment(s): osteoporosis Father Family Medical History: Dementia Medications and Allergies Home Medications Medication Instructions Recorded Confirmed Type Aspirin 81 mg PO DAILY@0900 11/08/13 04/04/18 History Baclofen [Lioresal] 10 mg PO DAILY@169911/08/13 04/04/18 History Citalopram Hydrobromide [CeleXA] 40 mg PO HS@2100 11/08/13 04/04/18 History Ferrous Sulfate [Feosol] 325 mg PO DAILY@169911/08/13 04/04/18 History Fexofenadine HCl [Mimi Allergy] 180 mg PO DAILY@17011/08/13 04/04/18 History Furosemide [Lasix] 40 mg PO BID@0900,1700 11/08/13 04/04/18 History Montelukast [Singulair] 10 mg PO DAILY@169911/08/13 04/04/18 History Nitroglycerin Sl Tabs [Nitrostat] 0.4 mg SUBLINGUAL Q5M PRN 11/08/13 04/04/18 History Pantoprazole Sodium [Protonix] 40 mg PO DAILY@0600 11/08/13 04/04/18 History Potassium Chloride 20 meq PO BID@0900,1700 11/08/13 04/04/18 History Cholecalciferol [Vitamin D3] 2,000 unit PO DAILY@0900 11/18/15 04/04/18 History Fluticasone Nasal [place] [Flonase 1 spray EA NOSTRIL DAILY@0911/18/15 History Nasal [place]] Methylphenidate HCl [Ritalin] 20 mg PO QAM@0900 11/18/15 04/04/18 History Pravastatin Sodium [Pravachol] 20 mg PO HS@2100 11/18/15 04/04/18 History fentaNYL [Fentanyl] 25 mcg TRANSDERM Q72H 11/18/15 04/04/18 History Pregabalin [Lyrica] 100 mg PO TID@0900,1700,2100 07/13/16 04/04/18 History Folic Acid 0.4 mg PO DAILY@0900 08/18/16 04/04/18 History Biotin 10,000 mcg PO DAILY@0900 07/06/17 04/04/18 History Levothyroxine Sodium [Synthroid] 50 mcg PO DAILY@0600 11/20/17 04/04/18 History Dimethyl Fumarate [Tecfidera] 240 mg PO BID@04/04/18 04/04/18 History HYDROcodone/APAP 5-325MG [[place] 1 tab PO DAILY PRN 04/04/18 04/04/18 History 5-325] Warfarin [Coumadin] 7.5 mg PO DAILY@1700 04/04/18 04/04/18 History Allergies Allergy/AdvReac Type Severity Reaction Status Date / Time adhesive Allergy SKIN Verified 04/04/18 15:24 PEELING Physical Exam Head normocephalic Neck supple Lungs clear to auscultation bilaterally no wheezing or crackles Heart regular rate and rhythm S1-S2, no rub or gallop Abdomen is soft nontender nondistended positive bowel sounds no hepatosplenomegaly Extremities no edema. Right foot scar healing. No signs of active infection Neuro alert and orientated to 3 Assessment and Plan Assessment: 1. Lower extremity numbness and weakness likely related to acute exacerbation of multiple sclerosis. Patient will be started on Solu-Medrol 250 mg IV every 6 hours. Physical therapy will be consulted. Dr. Jimenez per neurology has been consulted. 2. Previous history of right foot infection. No signs of active infection at this time. Patient follows up outpatient with Dr. Skinner 3. Previous history of DVT PE patient maintained on Coumadin. Daily PT/INR has been ordered 4. History of hypothyroidism. Maintain on Synthroid 5. History of CVA and stroke. Patient had CVA approximately 10 years ago that left her with dysphasia and right-sided weakness 6. History of sleep apnea. Patient maintained on CPAP 7. History of hyperlipidemia 8. History of fibromyalgia 9. History of depression DVT prophylaxis Coumadin. GI prophylaxis Protonix. Time with Patient: Greater than 30 (Greater than 60% of the total time spent in counseling and coordination of care. I performed an examination of the patient and discussed their management with the Nurse Practitioner. I have reviewed the Nurse Practitioner's notes and agree with the documented findings and plan of care)
[2018-04-04 15:52] LABS: Appearance,Urine Clear (Clear); Bilirubin,Urine Negative (Negative); Blood,Urine Negative (Negative); Color,Urine Light Yellow; Glucose,Urine (UA) Negative (Negative); Hyaline Casts,Urine 7 /lpf (0-2); Ketones,Urine Negative (Negative); Leukocyte Esterase,Urine Small (Negative); Mucus,Urine Rare /hpf; Nitrite,Urine Negative (Negative); PH, Urine 6.5 (5.0-8.0); Protein,Urine Negative (Negative); RBC,Urine <1 /hpf (0-5); Specific Gravity,Urine 1.008 (1.001-1.035); Squamous Epithelial Cell,Urine 2 /hpf (0-4); Urobilinogen,Urine <2.0 mg/dL (<2.0); WBC,Urine 4 /hpf (0-5)
[2018-04-04 16:03] VITALS: BMI 31.5
--- NOTE | 2018-04-04 16:06 | XR ---
EXAMINATION TYPE: XR chest 2V DATE OF EXAM: 04/04/2018 COMPARISON: 11/23/2017 HISTORY: 62-year-old female cough, rule out pneumonia TECHNIQUE: AP and lateral views FINDINGS: Heart mildly enlarged. Low lung volumes with crowded vascular markings. Mild diffuse interstitial pro minence appears largely chronic. No consolidation or pleural effusion seen. PFO occluder is noted. IMPRESSION: 1. Mild cardiomegaly. 2. Hypoventilatory changes. 3. No definite acute process.
[2018-04-04 16:31] LABS: Basophils % (A) 1 %; Eosinophils # (A) 0.2 k/uL (0-0.7); Eosinophils % (A) 5 %; HGB 13.6 gm/dL (11.4-16.0); Lymphocytes # (A) 0.5 k/uL (1.0-4.8); Lymphocytes % (A) 15 %; MCH 29.7 pg (25.0-35.0); MCHC 33.2 g/dL (31.0-37.0); MCV 89.3 fL (80.0-100.0); Mean Platelet Volume 11.1; Monocytes # (A) 0.2 k/uL (0-1.0); Monocytes % (A) 5 %; Neutrophils # (A) 2.2 k/uL (1.3-7.7); Neutrophils % (A) 72 %; RBC 4.59 m/uL (3.80-5.40); RDW 14.2 % (11.5-15.5)
[2018-04-04 16:37] LABS: Platelet Count 90 k/uL (150-450)
[2018-04-04 16:43] LABS: INR 2.4 (<1.2); Prothrombin Time 21.6 sec (9.0-12.0)
[2018-04-04 17:00] LABS: Albumin 3.9 g/dL (3.5-5.0); Calcium 9.3 mg/dL (8.4-10.2); Total Bilirubin 0.8 mg/dL (0.2-1.3); Total Protein 6.2 g/dL (6.3-8.2)
[2018-04-04] MEDS: SODIUM CHLORIDE 0.9% 1,000 ML IV SCH (17:25)
[2018-04-04] MEDS: BACLOFEN 10 MG TAB PO SCH (17:28)
[2018-04-04] MEDS: POTASSIUM CHLORIDE ER 20 MEQ TAB.ER PO SCH (17:29)
[2018-04-04] MEDS: FERROUS SULFATE 325 MG TAB PO SCH (17:29)
[2018-04-04] MEDS: MONTELUKAST 10 MG TAB PO SCH (17:29)
[2018-04-04] MEDS: LORATADINE 10 MG TAB PO SCH (17:29)
[2018-04-04] MEDS: FUROSEMIDE 40 MG TAB PO SCH (17:29)
[2018-04-04 17:30] LABS: Glucose,Whole Blood 122 mg/dL (75-99)
[2018-04-04] MEDS: WARFARIN 7.5 MG TAB PO SCH (17:30)
[2018-04-04] MEDS: INSULIN ASPART 100 UNIT/ML 1 ML 10 ML VIAL SQ SCH ×2 (17:30→21:17)
[2018-04-04] MEDS: methylPREDNISolone SOD SUCCI 250 MG in SODIUM CHLORIDE 0.9% 100 ML IVPB SCH ×2 (17:30→23:30)
[2018-04-04] MEDS: PREGABALIN 100 MG CAP PO SCH ×2 (17:33→20:36)
--- NOTE | 2018-04-04 19:22 | P.CNNES ---
History of Present Illness Consult date: 04/04/18 History of Present Illness: The patient is a 62-year-old woman with history of MS diagnosed years ago. She is followed by Dr. Woodward had ports that she has had increasing weakness in her legs over the past 2 days. Patient normally walks with a cane.'s a history of stroke which left her with some right-sided paralysis 10 years ago. The patient had an MRI of the brain recently in August when she was again hospitalized with MS exacerbation. Her MRI of the brain at that time showed evidence of a large old left MCA infarct. She also had an MRI of the cervical spine and there was some mild disc desiccation and disc bulge. Demyelination was difficult to exclude. denies any other new complaint but only increasing weakness over the last 2 days in the legs. She has been started on IV Solu-Medrol 250 mg every 6 hours. She gives no recent history of infection. She has had a urinalysis and chest x-ray. The patient has multiple other medical problems including history of stroke with dysphagia and expressive a aphasia, thyroid disorder, depression , pulmonary embolism, sleep apnea, fibromyalgia. Review of Systems Constitutional: Reports as per HPI Cardiovascular: Denies chest pain, Denies shortness of breath Respiratory: Denies cough Musculoskeletal: Reports as per HPI Psychiatric: Denies anxiety, Denies depression Past Medical History Past Medical History: Chest Pain / Angina, CVA/TIA, Fibromyalgia, Musculoskeletal Disorder, Neurologic Disorder, Osteoarthritis (OA), Pulmonary Embolus (PE), Sleep Apnea/CPAP/BIPAP, Thyroid Disorder Additional Past Medical History / Comment(s): MULTIPLE SCLEROSIS, HX OF CVA 2006 WITH R SIDED WEAKNESS AND DYSPHASIA-MUCH IMPROVED, MIGRAINES, SLEEP APNEA( HAS C-PAP MACHINE BUT DOES NOT USE) ABD HERNIA,CHRONIC PAIN ESPECIALLY ON R SIDE OF BODY AND LOW BACK . PAINFUL FOR HER TO LIE FLAT. HX OF NOSEBLEED JUL 2014 AND RECEIVED PLASMA TRANSFUSION. takes pills with applesauce. History of Any Multi-Drug Resistant Organisms: VRE Date of last positivie culture/infection: 10/24/09 confirmed with infectious disease nurse on 08/18/16. MDRO Source:: URINE Past Surgical History: Appendectomy, Cholecystectomy, Hysterectomy Additional Past Surgical History / Comment(s): Incisional hernia repair, laparoscopic lysis of adhesions in 1987, ganglion cyst removal of the left wrist , patent foramen ovale patch in 2006, RF ablation for back pain. Past Anesthesia/Blood Transfusion Reactions: No Reported Reaction Past Psychological History: Depression Additional Psychological History / Comment(s): CELEXA. PT HAS DIFFICULTY W/ SPEECH BUT IS MUCH IMPROVED. HAS TO LOOK AT DIETARY MENU TO ORDER CAN'T DO IT BY PHONE. Pt resides with her spouse. She uses a cane to ambulate. She also has a walker. Spouse drives her to appointments. Spouse assists her with some ADLs when needed. Smoking Status: Never smoker Past Alcohol Use History: None Reported Past Drug Use History: None Reported Additional Drug Use History / Comment(s): Lives at home with her requires some assistance with ADLs at times - Past Family History Mother Family Medical History: Hypertension Additional Family Medical History / Comment(s): osteoporosis Father Family Medical History: Dementia Medications and Allergies Home Medications Medication Instructions Recorded Confirmed Type Aspirin 81 mg PO DAILY@0911/08/13 04/04/18 History Baclofen [Lioresal] 10 mg PO DAILY@169911/08/13 04/04/18 History Citalopram Hydrobromide [CeleXA] 40 mg PO HS@2100 11/08/13 04/04/18 History Ferrous Sulfate [Feosol] 325 mg PO DAILY@169911/08/13 04/04/18 History Fexofenadine HCl [Mimi Allergy] 180 mg PO DAILY@169911/08/13 04/04/18 History Furosemide [Lasix] 40 mg PO BID@0900,169911/08/13 04/04/18 History Montelukast [Singulair] 10 mg PO DAILY@169911/08/13 04/04/18 History Nitroglycerin Sl Tabs [Nitrostat] 0.4 mg SUBLINGUAL Q5M PRN 11/08/13 04/04/18 History Pantoprazole Sodium [Protonix] 40 mg PO DAILY@0611/08/13 04/04/18 History Potassium Chloride 20 meq PO BID@0900,169911/08/13 04/04/18 History Cholecalciferol [Vitamin D3] 2,000 unit PO DAILY@0911/18/15 04/04/18 History Fluticasone Nasal [place] [Flonase 1 spray EA NOSTRIL DAILY@0900 11/18/15 History Nasal [place]] Methylphenidate HCl [Ritalin] 20 mg PO QAM@0900 11/18/15 04/04/18 History Pravastatin Sodium [Pravachol] 20 mg PO HS@2100 11/18/15 04/04/18 History fentaNYL [Fentanyl] 25 mcg TRANSDERM Q72H 11/18/15 04/04/18 History Pregabalin [Lyrica] 100 mg PO TID@0900,1700,2100 07/13/16 04/04/18 History Folic Acid 0.4 mg PO DAILY@0900 08/18/16 04/04/18 History Biotin 10,000 mcg PO DAILY@0907/06/17 04/04/18 History Levothyroxine Sodium [Synthroid] 50 mcg PO DAILY@0600 11/20/17 04/04/18 History Dimethyl Fumarate [Tecfidera] 240 mg PO BID@,04/04/18 04/04/18 History HYDROcodone/APAP 5-325MG [[place] 1 tab PO DAILY PRN 04/04/18 04/04/18 History 5-325] Warfarin [Coumadin] 7.5 mg PO DAILY@1700 04/04/18 04/04/18 History Allergies Allergy/AdvReac Type Severity Reaction Status Date / Time adhesive Allergy SKIN Verified 04/04/18 15:24 PEELING Physical Examination - Vital Signs Vital Signs: Vital Signs Temp Pulse Resp BP Pulse Ox 04/04/18 15:30 97.8 F 55 L 16 114/52 97 Intake and Output 04/04/18 04/04/18 04/04/18 06:59 14:59 22:59 Other: # Voids 1 1 Weight 86 kg - Constitutional General appearance: cooperative - EENT EENT: PERRL, vision intact - Respiratory Respiratory: lungs clear - Cardiovascular Cardiovascular: regular rate, normal S1, normal S2 - Neurologic Neurologic examination: Mental status: The patient had expressive aphasia. He was able to communicate somewhat and follow commands and express herself but there was significant expressive aphasia. She was oriented 3 Cranial nerves II through XII grossly intact Motor examination she moved all 4 extremities equally withparticular weakness. Right side was minimally weaker than the left. Coordination finger to nose intact next Sensory examination intact to light touch Gait not tested Results - Laboratory Findings CBC and BMP: 04/04/18 16:17 04/04/18 16:17 Abnormal Lab Findings: Abnormal Labs 04/04/18 04/04/18 04/04/18 15:05 16:17 16:17 WBC 3.0 L Plt Count 90 L Lymphocytes # 0.5 L PT 21.6 H INR 2.4 H BUN Creatinine Glucose POC Glucose (mg/dL) Total Protein Ur Leukocyte Esterase Small H Hyaline Casts 7 H Urine Mucus Rare H 04/04/18 04/04/18 16:17 17:26 WBC Plt Count Lymphocytes # PT INR BUN 20 H Creatinine 1.09 H Glucose 121 H POC Glucose (mg/dL) 122 H Total Protein 6.2 L Ur Leukocyte Esterase Hyaline Casts Urine Mucus Assessment and Plan (1) Exacerbation of multiple sclerosis Current Visit: Yes Status: Acute Code(s): G35 - MULTIPLE SCLEROSIS SNOMED Code(s): 196176153 (2) History of stroke Current Visit: Yes Status: Chronic SNOMED Code(s): 247306515 (3) 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 She is in the hospital with MS exacerbation. She is receiving Solu-Medrol 250 mg every 6 hours. Recommend physical therapy and occupational therapy. Recommend monitoring glucose. We'll check CT brain
--- NOTE | 2018-04-04 20:24 | CT ---
EXAMINATION TYPE: CT brain wo con DATE OF EXAM: 04/04/2018 COMPARISON: 11/26/2015 HISTORY: Leg weakness, history of MS. CT DLP: 960.6 mGycm Automated exposure control for dose reduction was used. FINDINGS: There is large area of hypodensity involving the left temporal lobe. There is no mass effect nor midl ine shift. There is no sign of intracranial hemorrhage. There is enlargement of the left lateral vent ricle. Calvarium is intact. IMPRESSION: OLD LEFT MIDDLE CEREBRAL ARTERY INFARCT. NO ACUTE INTRACRANIAL ABNORMALITY. NO CHANGE.
[2018-04-04] MEDS: NON-FORMULARY DRUG (Dimethyl Fumarate [Tecfidera] 240 MG) PO SCH (20:31)
[2018-04-04] MEDS: CITALOPRAM HYDROBROMIDE 20 MG TAB PO SCH (20:36)
[2018-04-04] MEDS: PRAVASTATIN SODIUM 20 MG TAB PO SCH (20:36)
[2018-04-04 20:59] LABS: Glucose,Whole Blood 228 mg/dL (75-99)
[2018-04-05] MEDS: PANTOPRAZOLE 40 MG TABLET PO SCH (06:51)
[2018-04-05] MEDS: LEVOTHYROXINE 50 MCG TAB PO SCH (06:51)
[2018-04-05] MEDS: methylPREDNISolone SOD SUCCI 250 MG in SODIUM CHLORIDE 0.9% 100 ML IVPB SCH ×3 (06:51→16:52)
[2018-04-05 08:03] LABS: Glucose,Whole Blood 228 mg/dL (75-99)
[2018-04-05] MEDS: CHOLECALCIFEROL 1,000 UNIT TAB PO SCH (08:21)
[2018-04-05] MEDS: ASPIRIN 81 MG PO SCH (08:21)
[2018-04-05] MEDS: INSULIN ASPART 100 UNIT/ML 1 ML 10 ML VIAL SQ SCH ×4 (08:21→22:32)
[2018-04-05] MEDS: FUROSEMIDE 40 MG TAB PO SCH ×2 (08:22→16:51)
[2018-04-05] MEDS: FOLIC ACID 1 MG TAB PO SCH (08:22)
[2018-04-05] MEDS: FLUTICASONE 50MCG/SPRAY NASAL 16GM EA NOSTRIL SCH (08:22)
[2018-04-05] MEDS: METHYLPHENIDATE HCL 10 MG TAB PO SCH (08:23)
[2018-04-05] MEDS: POTASSIUM CHLORIDE ER 20 MEQ TAB.ER PO SCH ×2 (08:23→16:52)
[2018-04-05] MEDS: PREGABALIN 100 MG CAP PO SCH ×3 (08:23→22:02)
[2018-04-05 08:38] LABS: Prothrombin Time 18.6 sec (9.0-12.0)
[2018-04-05 08:43] LABS: Basophils % (A) 0 %; Eosinophils % (A) 0 %; HCT 42.7 % (34.0-46.0); HGB 13.6 gm/dL (11.4-16.0); Lymphocytes # (A) 0.5 k/uL (1.0-4.8); Lymphocytes % (A) 11 %; MCH 29.7 pg (25.0-35.0); MCHC 31.9 g/dL (31.0-37.0); Mean Platelet Volume 9.9; Monocytes # (A) 0.1 k/uL (0-1.0); Monocytes % (A) 1 %; Neutrophils # (A) 4.1 k/uL (1.3-7.7); Neutrophils % (A) 87 %; RBC 4.59 m/uL (3.80-5.40); RDW 14.1 % (11.5-15.5); WBC 4.7 k/uL (3.8-10.6)
[2018-04-05 08:51] LABS: Albumin 3.9 g/dL (3.5-5.0); Calcium 9.4 mg/dL (8.4-10.2); Platelet Count 86 k/uL (150-450); Potassium 4.2 mmol/L (3.5-5.1); Total Bilirubin 0.6 mg/dL (0.2-1.3); Total Protein 6.2 g/dL (6.3-8.2)
[2018-04-05] MEDS ORDERED: NON-FORMULARY DRUG (Biotin [Biotin] 10,000 MCG) PO SCH (09:00)
[2018-04-05] MEDS: NON-FORMULARY DRUG (Dimethyl Fumarate [Tecfidera] 240 MG) PO SCH ×2 (09:33→21:53)
[2018-04-05 11:31] LABS: Glucose,Whole Blood 221 mg/dL (75-99)
--- NOTE | 2018-04-05 11:49 | P.PN ---
Subjective Progress Note Date: 04/05/18 The patient is a 62-year-old woman with history of MS diagnosed years ago. She is followed by Dr. Woodward had ports that she has had increasing weakness in her legs over the past 2 days. Patient normally walks with a cane.'s a history of stroke which left her with some right-sided paralysis 10 years ago. The patient had an MRI of the brain recently in August when she was again hospitalized with MS exacerbation. Her MRI of the brain at that time showed evidence of a large old left MCA infarct. She also had an MRI of the cervical spine and there was some mild disc desiccation and disc bulge. Demyelination was difficult to exclude. Patient denies any other new complaint but only increasing weakness over the last 2 days in the legs. She has been started on IV Solu-Medrol 250 mg every 6 hours. She gives no recent history of infection. She has had a urinalysis and chest x-ray. The patient has multiple other medical problems including history of stroke with dysphagia and expressive a aphasia, thyroid disorder, depression , pulmonary embolism, sleep apnea, fibromyalgia. 04/05/2018 patient reports improvement in her weakness. She was able to walk from the bathroom to the bed very slowly while holding onto the IV pole. She did require assistance getting back into bed. Objective - Vital Signs Vital signs: Vital Signs Temp 98.3 F 04/05/18 07:30 Pulse 70 04/05/18 07:30 Resp 16 04/05/18 07:30 BP 107/61 04/05/18 07:30 Pulse Ox 93 L 04/05/18 07:30 Intake & Output 04/04/18 04/05/18 04/05/18 18:59 06:59 18:59 Intake Total 200 Balance 200 Weight 86 kg Intake: Oral 200 Other: Voiding Method Toilet # Voids 1 1 - Exam Head normocephalic Neck supple Lungs clear to auscultation bilaterally no wheezing or crackles Heart regular rate and rhythm S1-S2, no rub or gallop Abdomen is soft nontender nondistended positive bowel sounds no hepatosplenomegaly Extremities no edema Neuro alert and orientated to 3, expressive aphasia - Labs CBC & Chem 7: 04/05/18 07:56 04/05/18 07:56 Labs: Abnormal Lab Results - Last 24 Hours (Table) 10/09/1704/04/18 04/04/18 Range/Units 15:05 16:17 16:17 WBC 3.0 L (3.8-10.6) k/uL Plt Count 90 L (150-450) k/uL Lymphocytes # 0.5 L (1.0-4.8) k/uL PT 21.6 H (9.0-12.0) sec INR 2.4 H (<1.2) BUN (7-17) mg/dL Creatinine (0.52-1.04) mg/dL Glucose (74-99) mg/dL POC Glucose (mg/dL) (75-99) mg/dL Total Protein (6.3-8.2) g/dL Ur Leukocyte Esterase Small H (Negative) Hyaline Casts 7 H (0-2) /lpf Urine Mucus Rare H (None) /hpf 04/04/18 04/04/18 04/04/18 Range/Units 16:17 17:26 20:57 WBC (3.8-10.6) k/uL Plt Count (150-450) k/uL Lymphocytes # (1.0-4.8) k/uL PT (9.0-12.0) sec INR (<1.2) BUN 20 H (7-17) mg/dL Creatinine 1.09 H (0.52-1.04) mg/dL Glucose 121 H (74-99) mg/dL POC Glucose (mg/dL) 122 H 228 H (75-99) mg/dL Total Protein 6.2 L (6.3-8.2) g/dL Ur Leukocyte Esterase (Negative) Hyaline Casts (0-2) /lpf Urine Mucus (None) /hpf 04/05/18 04/05/18 04/05/18 Range/Units 07:55 07:56 07:56 WBC (3.8-10.6) k/uL Plt Count 86 L (150-450) k/uL Lymphocytes # 0.5 L (1.0-4.8) k/uL PT (9.0-12.0) sec INR (<1.2) BUN 20 H (7-17) mg/dL Creatinine (0.52-1.04) mg/dL Glucose 227 H (74-99) mg/dL POC Glucose (mg/dL) 228 H (75-99) mg/dL Total Protein 6.2 L (6.3-8.2) g/dL Ur Leukocyte Esterase (Negative) Hyaline Casts (0-2) /lpf Urine Mucus (None) /hpf 04/05/18 04/05/18 Range/Units 07:56 11:27 WBC (3.8-10.6) k/uL Plt Count (150-450) k/uL Lymphocytes # (1.0-4.8) k/uL PT 18.6 H (9.0-12.0) sec INR 2.0 H (<1.2) BUN (7-17) mg/dL Creatinine (0.52-1.04) mg/dL Glucose (74-99) mg/dL POC Glucose (mg/dL) 221 H (75-99) mg/dL Total Protein (6.3-8.2) g/dL Ur Leukocyte Esterase (Negative) Hyaline Casts (0-2) /lpf Urine Mucus (None) /hpf Assessment and Plan Assessment: 1. Lower extremity numbness and weakness likely related to acute exacerbation of multiple sclerosis. Patient will be started on Solu-Medrol 250 mg IV every 6 hours. She has received 3 out of 10 doses. Physical therapy will be consulted. Patient seen by neurology 2. Previous history of right foot infection. No signs of active infection at this time. Patient follows up outpatient with Dr. Skinner 3. Previous history of DVT PE patient maintained on Coumadin. Daily PT/INR has been ordered 4. History of hypothyroidism. Maintain on Synthroid 5. History of CVA and stroke. Patient had CVA approximately 10 years ago that left her with dysphasia and right-sided weakness 6. History of sleep apnea. Patient maintained on CPAP 7. History of hyperlipidemia 8. History of fibromyalgia 9. History of depression 10. Thrombocytopenia: Platelets 82. Continue to monitor. DVT prophylaxis Coumadin. GI prophylaxis Protonix. I performed an examination of the patient and discussed their management with the physician Research Contracts Supervisor. I have reviewed the Physician Research Contracts Supervisor's notes and agree with the documented findings and plan of care
[2018-04-05] MEDS: SODIUM CHLORIDE 0.9% 1,000 ML IV SCH (16:50)
[2018-04-05] MEDS: FERROUS SULFATE 325 MG TAB PO SCH (16:51)
[2018-04-05] MEDS: BACLOFEN 10 MG TAB PO SCH (16:51)
[2018-04-05] MEDS: MONTELUKAST 10 MG TAB PO SCH (16:52)
[2018-04-05] MEDS: LORATADINE 10 MG TAB PO SCH (16:52)
[2018-04-05] MEDS: WARFARIN 7.5 MG TAB PO SCH (16:52)
[2018-04-05 17:36] LABS: Glucose,Whole Blood 222 mg/dL (75-99)
[2018-04-05 20:58] LABS: Glucose,Whole Blood 215 mg/dL (75-99)
[2018-04-05] MEDS: HYDROcodone/APAP 5-325MG 1 EACH TAB PO PRN (21:54)
[2018-04-05] MEDS: CITALOPRAM HYDROBROMIDE 20 MG TAB PO SCH (21:55)
[2018-04-05] MEDS: PRAVASTATIN SODIUM 20 MG TAB PO SCH (21:56)
[2018-04-06] MEDS: methylPREDNISolone SOD SUCCI 250 MG in SODIUM CHLORIDE 0.9% 100 ML IVPB SCH ×4 (00:05→17:24)
[2018-04-06] MEDS: LEVOTHYROXINE 50 MCG TAB PO SCH (06:13)
[2018-04-06] MEDS: PANTOPRAZOLE 40 MG TABLET PO SCH (06:13)
[2018-04-06 07:23] LABS: Glucose,Whole Blood 160 mg/dL (75-99)
[2018-04-06] MEDS: ASPIRIN 81 MG PO SCH (08:29)
[2018-04-06] MEDS: FLUTICASONE 50MCG/SPRAY NASAL 16GM EA NOSTRIL SCH (08:29)
[2018-04-06] MEDS: FOLIC ACID 1 MG TAB PO SCH (08:29)
[2018-04-06] MEDS: POTASSIUM CHLORIDE ER 20 MEQ TAB.ER PO SCH ×2 (08:30→16:45)
[2018-04-06] MEDS: FUROSEMIDE 40 MG TAB PO SCH ×2 (08:30→16:45)
[2018-04-06] MEDS: CHOLECALCIFEROL 1,000 UNIT TAB PO SCH (08:30)
[2018-04-06] MEDS: METHYLPHENIDATE HCL 10 MG TAB PO SCH (08:34)
[2018-04-06] MEDS: PREGABALIN 100 MG CAP PO SCH ×3 (08:34→21:43)
[2018-04-06] MEDS: INSULIN ASPART 100 UNIT/ML 1 ML 10 ML VIAL SQ SCH ×4 (08:34→21:43)
[2018-04-06] MEDS: NON-FORMULARY DRUG (Dimethyl Fumarate [Tecfidera] 240 MG) PO SCH ×2 (09:29→21:43)
[2018-04-06 09:50] LABS: Basophils % (A) 0 %; Eosinophils % (A) 0 %; HCT 40.5 % (34.0-46.0); HGB 13.3 gm/dL (11.4-16.0); INR 3.3 (<1.2); Lymphocytes # (A) 0.7 k/uL (1.0-4.8); Lymphocytes % (A) 7 %; MCH 29.5 pg (25.0-35.0); MCHC 32.9 g/dL (31.0-37.0); MCV 89.7 fL (80.0-100.0); Mean Platelet Volume 11.2; Monocytes # (A) 0.2 k/uL (0-1.0); Monocytes % (A) 2 %; Neutrophils # (A) 8.6 k/uL (1.3-7.7); Neutrophils % (A) 90 %; Prothrombin Time 29.7 sec (9.0-12.0); RBC 4.51 m/uL (3.80-5.40); RDW 14.3 % (11.5-15.5); WBC 9.5 k/uL (3.8-10.6)
[2018-04-06 10:08] LABS: Platelet Count 94 k/uL (150-450)
[2018-04-06 10:34] LABS: Albumin 3.8 g/dL (3.5-5.0); Calcium 9.6 mg/dL (8.4-10.2); Potassium 4.4 mmol/L (3.5-5.1); Total Bilirubin 0.4 mg/dL (0.2-1.3); Total Protein 6.1 g/dL (6.3-8.2)
--- NOTE | 2018-04-06 10:37 | P.PN ---
Subjective Progress Note Date: 04/06/18 The patient is a 62-year-old woman with history of MS diagnosed years ago. She is followed by Dr. Woodward had ports that she has had increasing weakness in her legs over the past 2 days. Patient normally walks with a cane.'s a history of stroke which left her with some right-sided paralysis 10 years ago. The patient had an MRI of the brain recently in August when she was again hospitalized with MS exacerbation. Her MRI of the brain at that time showed evidence of a large old left MCA infarct. She also had an MRI of the cervical spine and there was some mild disc desiccation and disc bulge. Demyelination was difficult to exclude. Patient denies any other new complaint but only increasing weakness over the last 2 days in the legs. She has been started on IV Solu-Medrol 250 mg every 6 hours. She gives no recent history of infection. She has had a urinalysis and chest x-ray. The patient has multiple other medical problems including history of stroke with dysphagia and expressive a aphasia, thyroid disorder, depression , pulmonary embolism, sleep apnea, fibromyalgia. 04/05/2018 patient reports improvement in her weakness. She was able to walk from the bathroom to the bed very slowly while holding onto the IV pole. She did require assistance getting back into bed. 04/06/2018 Patient remains on IV solumedrol. She is on 7 out of 10. Patient lying in bed comfortably. Denies any chest pain or shortness of breath. Denies any nausea or vomiting. Reports bowel movements. Denies difficulty urinating. Objective - Vital Signs Vital signs: Vital Signs Temp 97.0 F L 04/06/18 07:00 Pulse 53 L 04/06/18 07:00 Resp 16 04/06/18 07:00 BP 115/46 04/06/18 07:00 Pulse Ox 92 L 04/06/18 07:00 Intake & Output 04/05/18 04/06/18 04/06/18 18:59 06:59 18:59 Intake Total 750 1930 500 Balance 750 1930 500 Intake: Intake, IV Titration 400 Amount Sodium Chloride 0.9% 1, 200 000 ml @ 20 mls/hr IV . Q24H [facility] Rx#:[id number] methylPREDNISolone SOD 200 SUCCI 250 mg In Sodium Chloride 0.9% 100 ml @ 100 mls/hr IVPB Q6HR [facility] Rx#:[id number] Oral 750 1530 500 Other: Voiding Method Toilet Toilet # Voids 2 2 - Exam Head normocephalic Neck supple Lungs clear to auscultation bilaterally no wheezing or crackles Heart regular rate and rhythm S1-S2, no rub or gallop Abdomen is soft nontender nondistended positive bowel sounds no hepatosplenomegaly Extremities no edema Neuro alert and orientated to 3, expressive aphasia - Labs CBC & Chem 7: 04/06/18 08:56 04/05/18 07:56 Labs: Abnormal Lab Results - Last 24 Hours (Table) 04/05/18 04/05/18 04/05/18 Range/Units 11:27 17:35 20:58 Plt Count (150-450) k/uL Neutrophils # (1.3-7.7) k/uL Lymphocytes # (1.0-4.8) k/uL PT (9.0-12.0) sec INR (<1.2) POC Glucose (mg/dL) 221 H 222 H 215 H (75-99) mg/dL 04/06/18 04/06/18 04/06/18 Range/Units 07:20 08:56 08:56 Plt Count 94 L (150-450) k/uL Neutrophils # 8.6 H (1.3-7.7) k/uL Lymphocytes # 0.7 L (1.0-4.8) k/uL PT 29.7 H (9.0-12.0) sec INR 3.3 H (<1.2) POC Glucose (mg/dL) 160 H (75-99) mg/dL Assessment and Plan Assessment: 1. Lower extremity numbness and weakness likely related to acute exacerbation of multiple sclerosis. Patient will be started on Solu-Medrol 250 mg IV every 6 hours. She has received 7 out of 10 doses. Physical therapy will be consulted. Patient seen by neurology 2. Previous history of right foot infection. No signs of active infection at this time. Patient follows up outpatient with Dr. Skinner 3. Previous history of DVT and PE patient maintained on Coumadin. Daily PT/ INR has been ordered. 4. History of hypothyroidism. Maintain on Synthroid 5. History of CVA and stroke. Patient had CVA approximately 10 years ago that left her with dysphasia and right-sided weakness 6. History of sleep apnea. Patient maintained on CPAP 7. History of hyperlipidemia 8. History of fibromyalgia 9. History of depression 10. Thrombocytopenia: Platelets 94. Continue to monitor. Dr. Kumar consulted Hold Coumadin tonight for INR 3.3. Recheck INR in a.m. and dose Coumadin accordingly DVT prophylaxis Coumadin. GI prophylaxis Protonix. I performed an examination of the patient and discussed their management with the physician Radio Rigger. I have reviewed the Physician Radio Rigger's notes and agree with the documented findings and plan of care
[2018-04-06 12:07] LABS: Glucose,Whole Blood 234 mg/dL (75-99)
[2018-04-06] MEDS: SODIUM CHLORIDE 0.9% 1,000 ML IV SCH (12:47)
[2018-04-06] MEDS: MONTELUKAST 10 MG TAB PO SCH (16:45)
[2018-04-06] MEDS: FERROUS SULFATE 325 MG TAB PO SCH (16:45)
[2018-04-06] MEDS: BACLOFEN 10 MG TAB PO SCH (16:45)
[2018-04-06] MEDS: LORATADINE 10 MG TAB PO SCH (16:45)
[2018-04-06 16:57] LABS: Glucose,Whole Blood 188 mg/dL (75-99)
[2018-04-06 20:34] LABS: Glucose,Whole Blood 279 mg/dL (75-99)
--- NOTE | 2018-04-06 21:28 | P.CONS ---
History of Present Illness - Reason for Consult Consult date: 04/06/18 Thrombocytopenia - History of Present Illness The patient is a 62-year-old white female, with multiple medical problems, and a computed past medical history. She has a known history of multiple sclerosis, as well as stroke in the past with right-sided weakness. She was admitted from her primary care physician's office because of increased lower extremity weakness which is a symptom of her MS flare up. During this admission her platelet counts were noted to be in the 80-90,000 range. Consult was therefore placed for further evaluation and recommendations. History cannot be obtained from the patient that she has expressive aphasia. This is a obtained from review of records from multiple prior hospital admissions. They show that her platelet counts have been chronically low, dating back to 2013. Mostly they have been in the 100-1 30,000 range. There have been dips into the 70,000 range but not lower. Computed tomography scan of the abdomen and pelvis in 11/14 had revealed evidence of possible splenomegaly. The patient has also had admissions in 11/17 and 12/18 for cellulitis of her foot requiring incision and drainage. She is currently on chronic anticoagulation for history of DVT and PE. It does not appear that she hasn't had any bleeding complications. Other blood counts are within normal limits. Review of Systems Cannot be obtained from the patient, due to her expressive aphasia. Obtained from review of multiple records from the EMR Constitutional: Reports fatigue, Reports weakness Eyes: denies blurred vision, denies pain Ears: deny: decreased hearing, ear discharge, earache, tinnitus Ears, nose, mouth and throat: Denies headache, Denies sore throat Cardiovascular: Reports decreased exercise tolerance Respiratory: Denies cough Gastrointestinal: Denies abdominal pain, Denies diarrhea, Denies nausea, Denies vomiting Genitourinary: Reports urinary frequency Menstruation: Reports postmenopausal Musculoskeletal: Reports muscle weakness Integumentary: Denies pruritus, Denies rash Neurological: Reports as per HPI, Reports aphasia, Reports ataxia, Reports balance difficulties, Reports motor disturbance, Reports numbness, Reports weakness Psychiatric: Reports as per HPI Endocrine: Reports fatigue Hematologic/Lymphatic: Reports as per HPI Past Medical History Past Medical History: Chest Pain / Angina, CVA/TIA, Fibromyalgia, Musculoskeletal Disorder, Neurologic Disorder, Osteoarthritis (OA), Pulmonary Embolus (PE), Sleep Apnea/CPAP/BIPAP, Thyroid Disorder Additional Past Medical History / Comment(s): MULTIPLE SCLEROSIS, HX OF CVA 2006 WITH R SIDED WEAKNESS AND DYSPHASIA-MUCH IMPROVED, MIGRAINES, SLEEP APNEA( HAS C-PAP MACHINE BUT DOES NOT USE) ABD HERNIA,CHRONIC PAIN ESPECIALLY ON R SIDE OF BODY AND LOW BACK . PAINFUL FOR HER TO LIE FLAT. HX OF NOSEBLEED JUL 2014 AND RECEIVED PLASMA TRANSFUSION. takes pills with applesauce. 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 MDRO Source:: URINE Past Surgical History: Appendectomy, Cholecystectomy, Hysterectomy Additional Past Surgical History / Comment(s): Incisional hernia repair, laparoscopic lysis of adhesions in 1987, ganglion cyst removal of the left wrist , patent foramen ovale patch in 2006, RF ablation for back pain. Past Anesthesia/Blood Transfusion Reactions: No Reported Reaction Past Psychological History: Depression Additional Psychological History / Comment(s): CELEXA. PT HAS DIFFICULTY W/ SPEECH BUT IS MUCH IMPROVED. HAS TO LOOK AT DIETARY MENU TO ORDER CAN'T DO IT BY PHONE. Pt resides with her spouse. She uses a cane to ambulate. She also has a walker. Spouse drives her to appointments. Spouse assists her with some ADLs when needed. Smoking Status: Never smoker Past Alcohol Use History: None Reported Past Drug Use History: None Reported Additional Drug Use History / Comment(s): Lives at home with her requires some assistance with ADLs at times - Past Family History Mother Family Medical History: Hypertension Additional Family Medical History / Comment(s): osteoporosis Father Family Medical History: Dementia Medications and Allergies Home Medications Medication Instructions Recorded Confirmed Type Aspirin 81 mg PO DAILY@0900 11/08/13 04/04/18 History Baclofen [Lioresal] 10 mg PO DAILY@169911/08/13 04/04/18 History Citalopram Hydrobromide [CeleXA] 40 mg PO HS@2100 11/08/13 04/04/18 History Ferrous Sulfate [Feosol] 325 mg PO DAILY@169911/08/13 04/04/18 History Fexofenadine HCl [Mimi Allergy] 180 mg PO DAILY@169911/08/13 04/04/18 History Furosemide [Lasix] 40 mg PO BID@0900,169911/08/1304/04/18 History Montelukast [Singulair] 10 mg PO DAILY@1700 11/08/13 04/04/18 History Nitroglycerin Sl Tabs [Nitrostat] 0.4 mg SUBLINGUAL Q5M PRN 11/08/13 04/04/18 History Pantoprazole Sodium [Protonix] 40 mg PO DAILY@0600 11/08/13 04/04/18 History Potassium Chloride 20 meq PO BID@0900,1700 11/08/13 04/04/18 History Cholecalciferol [Vitamin D3] 2,000 unit PO DAILY@0911/18/15 04/04/18 History Fluticasone Nasal [place] [Flonase 1 spray EA NOSTRIL DAILY@0911/18/15 History Nasal [place]] Methylphenidate HCl [Ritalin] 20 mg PO QAM@0911/18/15 04/04/18 History Pravastatin Sodium [Pravachol] 20 mg PO HS@2100 11/18/15 04/04/18 History fentaNYL [Fentanyl] 25 mcg TRANSDERM Q72H 11/18/15 04/04/18 History Pregabalin [Lyrica] 100 mg PO TID@0900,1700,209907/13/16 04/04/18 History Folic Acid 0.4 mg PO DAILY@0908/18/16 04/04/18 History Biotin 10,000 mcg PO DAILY@0900 07/06/17 04/04/18 History Levothyroxine Sodium [Synthroid] 50 mcg PO DAILY@0611/20/17 04/04/18 History Dimethyl Fumarate [Tecfidera] 240 mg PO BID@04/04/18 04/04/18 History HYDROcodone/APAP 5-325MG [Pryor 1 tab PO DAILY PRN 04/04/18 04/04/18 History 5-325] Warfarin [Coumadin] 7.5 mg PO DAILY@169904/04/18 04/04/18 History Allergies Allergy/AdvReac Type Severity Reaction Status Date / Time adhesive Allergy SKIN Verified 04/04/18 15:24 PEELING Physical Exam Vitals: Vital Signs Temp Pulse Resp BP Pulse Ox 04/06/18 16:04 61 17 04/06/18 15:00 97.8 F 61 17 109/54 95 04/06/18 07:00 97.0 F L 53 L 16 115/46 92 L 04/06/18 00:31 18 04/05/18 22:54 98.3 F 60 18 113/60 92 L 04/05/18 20:58 98.4 F 63 16 112/61 94 L Intake and Output 04/06/18 04/06/18 04/06/18 06:59 14:59 22:59 Intake Total 1150 1000 Balance 1150 1000 Intake: Intake, IV Titration 400 Amount Sodium Chloride 0.9% 1, 200 000 ml @ 20 mls/hr IV . Q24H [facility] Rx#:[id number] methylPREDNISolone SOD 200 SUCCI 250 mg In Sodium Chloride 0.9% 100 ml @ 100 mls/hr IVPB Q6HR [facility] Rx#:[id number] Oral 750 1000 Other: Voiding Method Toilet Toilet # Voids 2 2 # Bowel Movements 0 - Constitutional General appearance: no acute distress - EENT Eyes: EOMI, PERRLA ENT: hearing grossly normal, normal oropharynx - Neck Neck: no lymphadenopathy Thyroid: bilateral: normal size - Respiratory Respiratory: bilateral: CTA - Cardiovascular Rhythm: regular Heart sounds: normal: S1, S2 - Gastrointestinal General gastrointestinal: normal bowel sounds, soft - Integumentary Integumentary: normal - Neurologic Expressive aphasia. Right upper extremity strength less than left- 4/5 versus 5 /5. Marked weakness both lower extremities with contractures noted at ankles Neurologic: CNII-XII intact - Musculoskeletal Musculoskeletal: generalized weakness, right sided weakness, left sided weakness - Psychiatric Cannot magisterial district judge orientation, due to expressive aphasia. Obeys commands appropriately Results CBC & Chem 7: 04/06/18 08:56 04/06/18 08:56 Labs: Abnormal Lab Results - Last 24 Hours (Table) 04/05/18 04/06/18 04/06/18 Range/Units 20:58 07:20 08:56 Plt Count 94 L (150-450) k/uL Neutrophils # 8.6 H (1.3-7.7) k/uL Lymphocytes # 0.7 L (1.0-4.8) k/uL PT (9.0-12.0) sec INR (<1.2) BUN (7-17) mg/dL Glucose (74-99) mg/dL POC Glucose (mg/dL) 215 H 160 H (75-99) mg/dL Total Protein (6.3-8.2) g/dL 04/06/18 04/06/18 04/06/18 Range/Units 08:56 08:56 12:05 Plt Count (150-450) k/uL Neutrophils # (1.3-7.7) k/uL Lymphocytes # (1.0-4.8) k/uL PT 29.7 H (9.0-12.0) sec INR 3.3 H (<1.2) BUN 25 H (7-17) mg/dL Glucose 157 H (74-99) mg/dL POC Glucose (mg/dL) 234 H (75-99) mg/dL Total Protein 6.1 L (6.3-8.2) g/dL 04/06/18 Range/Units 16:56 Plt Count (150-450) k/uL Neutrophils # (1.3-7.7) k/uL Lymphocytes # (1.0-4.8) k/uL PT (9.0-12.0) sec INR (<1.2) BUN (7-17) mg/dL Glucose (74-99) mg/dL POC Glucose (mg/dL) 188 H (75-99) mg/dL Total Protein (6.3-8.2) g/dL Comments: ECHO, MRI spine reports reviewed Chest x-ray: report reviewed CT scan - abdomen: report reviewed CT Scan - head: report reviewed CT scan - pelvis: report reviewed MRI - head: report reviewed Assessment and Plan (1) Thrombocytopenia Narrative/Plan: This is chronic and overall mild, and consistently in a safe range. At this time etiology is not clear. A possibility is splenic sequestration given CT AP reports from 2015. A mild immune phenomenon is also in the differential, among others. - No intervention is required at this level - I will order lab w/u and also check imaging of the liver and spleen - Anticoagulation is OK to continue as long as plt are > 50K Current Visit: Yes Status: Acute Code(s): D69.6 - THROMBOCYTOPENIA, UNSPECIFIED SNOMED Code(s): 198233869 Plan: Defer to the admitting service and other consultants for management of her multiple other medical problems
[2018-04-06] MEDS: PRAVASTATIN SODIUM 20 MG TAB PO SCH (21:43)
[2018-04-06] MEDS: CITALOPRAM HYDROBROMIDE 20 MG TAB PO SCH (21:43)
[2018-04-07] MEDS: methylPREDNISolone SOD SUCCI 250 MG in SODIUM CHLORIDE 0.9% 100 ML IVPB SCH (00:15)
[2018-04-07] MEDS: PANTOPRAZOLE 40 MG TABLET PO SCH (06:28)
[2018-04-07] MEDS: LEVOTHYROXINE 50 MCG TAB PO SCH (06:28)
--- NOTE | 2018-04-07 08:14 | US ---
EXAMINATION TYPE: US abdomen limited DATE OF EXAM: 04/07/2018 COMPARISON: Previous study dated 01/14/2011. CLINICAL HISTORY: Splenomegaly, chronic liver disease; Cholecystectomy; large body habitus; attention liver and spleen EXAM MEASUREMENTS: Liver Length: 13.1 cm Gallbladder Wall: surgically removed CBD: 0.9 cm Right Kidney: 10.3 x 4.7 x 4.2 cm Spleen: 11.4 x 11.8 x 4.0cm Pancreas: hyperechoic Liver: right lobe primarily scanned intercostally due to overlying bowel gas; fatty as is hyperechoi c to right renal cortex Gallbladder: surgically absent Evidence for sonographic Johnson's sign: no CBD: wnl post cholecystectomy Right Kidney: No hydronephrosis or masses seen Spleen: size is wnl The pancreas is poorly visualized. The liver is normal in size without biliary dilatation. It is echogenic and may be fatty infiltrated. The gallbladder has been removed. Distal common hepatic duct measures 9 mm. The right kidney is unremarkable. The spleen is normal in size. Visualized portions of the IVC are normal. IMPRESSION: 1. STATUS POST CHOLECYSTECTOMY. 2. POOR VISUALIZATION OF THE PANCREAS MAY BE DUE TO FATTY INFILTRATION. 3. PROBABLE FATTY INFILTRATION OF THE LIVER.
[2018-04-07 08:17] LABS: Glucose,Whole Blood 160 mg/dL (75-99)
[2018-04-07] MEDS: METHYLPHENIDATE HCL 10 MG TAB PO SCH (08:27)
[2018-04-07] MEDS: PREGABALIN 100 MG CAP PO SCH ×3 (08:27→21:26)
[2018-04-07] MEDS: CHOLECALCIFEROL 1,000 UNIT TAB PO SCH (08:27)
[2018-04-07] MEDS: POTASSIUM CHLORIDE ER 20 MEQ TAB.ER PO SCH ×2 (08:28→16:34)
[2018-04-07] MEDS: FUROSEMIDE 40 MG TAB PO SCH ×2 (08:28→16:34)
[2018-04-07] MEDS: FOLIC ACID 1 MG TAB PO SCH (08:28)
[2018-04-07] MEDS: FLUTICASONE 50MCG/SPRAY NASAL 16GM EA NOSTRIL SCH (08:28)
[2018-04-07] MEDS: ASPIRIN 81 MG PO SCH (08:28)
[2018-04-07] MEDS: NON-FORMULARY DRUG (Dimethyl Fumarate [Tecfidera] 240 MG) PO SCH ×2 (08:30→21:27)
[2018-04-07] MEDS: INSULIN ASPART 100 UNIT/ML 1 ML 10 ML VIAL SQ SCH ×4 (08:30→21:26)
[2018-04-07 09:35] LABS: INR 3.1 (<1.2); Prothrombin Time 27.8 sec (9.0-12.0)
[2018-04-07 09:37] LABS: Basophils % (A) 0 %; Eosinophils % (A) 0 %; HCT 38.1 % (34.0-46.0); HGB 13.3 gm/dL (11.4-16.0); Lymphocytes # (A) 0.6 k/uL (1.0-4.8); Lymphocytes % (A) 9 %; MCH 30.8 pg (25.0-35.0); MCHC 34.9 g/dL (31.0-37.0); MCV 88.3 fL (80.0-100.0); Mean Platelet Volume 10.8; Monocytes # (A) 0.2 k/uL (0-1.0); Monocytes % (A) 2 %; Neutrophils # (A) 5.9 k/uL (1.3-7.7); Neutrophils % (A) 88 %; RBC 4.31 m/uL (3.80-5.40); RDW 14.4 % (11.5-15.5); WBC 6.6 k/uL (3.8-10.6)
[2018-04-07 09:42] LABS: Platelet Count 85 k/uL (150-450)
[2018-04-07 09:58] LABS: Albumin 3.7 g/dL (3.5-5.0); Potassium 3.9 mmol/L (3.5-5.1); Total Bilirubin 0.4 mg/dL (0.2-1.3); Total Protein 5.9 g/dL (6.3-8.2)
[2018-04-07 11:36] LABS: Glucose,Whole Blood 213 mg/dL (75-99)
[2018-04-07] MEDS: HYDROcodone/APAP 5-325MG 1 EACH TAB PO PRN (13:32)
--- NOTE | 2018-04-07 15:50 | P.PN ---
Subjective Progress Note Date: 04/07/18 The patient is a 62-year-old woman with history of MS diagnosed years ago. She is followed by Dr. Woodward had ports that she has had increasing weakness in her legs over the past 2 days. Patient normally walks with a cane.'s a history of stroke which left her with some right-sided paralysis 10 years ago. The patient had an MRI of the brain recently in August when she was again hospitalized with MS exacerbation. Her MRI of the brain at that time showed evidence of a large old left MCA infarct. She also had an MRI of the cervical spine and there was some mild disc desiccation and disc bulge. Demyelination was difficult to exclude. Patient denies any other new complaint but only increasing weakness over the last 2 days in the legs. She has been started on IV Solu-Medrol 250 mg every 6 hours. She gives no recent history of infection. She has had a urinalysis and chest x-ray. The patient has multiple other medical problems including history of stroke with dysphagia and expressive a aphasia, thyroid disorder, depression , pulmonary embolism, sleep apnea, fibromyalgia. 04/05/2018 patient reports improvement in her weakness. She was able to walk from the bathroom to the bed very slowly while holding onto the IV pole. She did require assistance getting back into bed. 04/06/2018 Patient remains on IV solumedrol. She is on 7 out of 10. Patient lying in bed comfortably. Denies any chest pain or shortness of breath. Denies any nausea or vomiting. Reports bowel movements. Denies difficulty urinating. On 04/07/2018 patient is alert and oriented in no apparent distress she is complaining of generalized pain and significant debility she is done with her 10 bags of IV Solu-Medrol she is and able to stand or walk at this time even though she was able to do that prior to admission. At this time will consult physical therapy will also consult Dr. Giles for possible inpatient rehab Will reassess in a.m. Objective - Vital Signs Vital signs: Vital Signs Temp 97.8 F 04/07/18 14:00 Pulse 59 L 04/07/18 15:36 Resp 16 04/07/18 15:36 BP 106/49 04/07/18 14:00 Pulse Ox 94 L 04/07/18 14:00 Intake & Output 04/06/18 04/07/1804/07/18 18:59 06:59 18:59 Intake Total 1000 725 Balance 1000 725 Intake: Oral 1000 725 Other: Voiding Method Toilet Toilet Toilet # Voids 2 1 2 # Bowel Movements 0 1 - Exam Head normocephalic and atraumatic Neck supple no JVD no goiter Lungs clear to auscultation bilaterally no wheezing or crackles Heart regular rate and rhythm S1-S2, no rub or gallop Abdomen is soft nontender nondistended positive bowel sounds no hepatosplenomegaly Extremities no edema no cyanosis or clubbing Neuro alert and orientated to 3, expressive aphasia - Labs CBC & Chem 7: 04/07/18 08:42 04/07/18 08:42 Labs: Abnormal Lab Results - Last 24 Hours (Table) 04/06/18 04/06/18 04/07/18 Range/Units 16:56 20:28 08:09 Plt Count (150-450) k/uL Lymphocytes # (1.0-4.8) k/uL PT (9.0-12.0) sec INR (<1.2) Carbon Dioxide (22-30) mmol/L BUN (7-17) mg/dL Creatinine (0.52-1.04) mg/dL Glucose (74-99) mg/dL POC Glucose (mg/dL) 188 H 279 H 160 H (75-99) mg/dL Total Protein (6.3-8.2) g/dL 04/07/18 04/07/18 04/07/18 Range/Units 08:42 08:42 08:42 Plt Count 85 L (150-450) k/uL Lymphocytes # 0.6 L (1.0-4.8) k/uL PT 27.8 H (9.0-12.0) sec INR 3.1 H (<1.2) Carbon Dioxide 32 H (22-30) mmol/L BUN 29 H (7-17) mg/dL Creatinine 1.13 H (0.52-1.04) mg/dL Glucose 207 H (74-99) mg/dL POC Glucose (mg/dL) (75-99) mg/dL Total Protein 5.9 L (6.3-8.2) g/dL 04/07/18 Range/Units 11:32 Plt Count (150-450) k/uL Lymphocytes # (1.0-4.8) k/uL PT (9.0-12.0) sec INR (<1.2) Carbon Dioxide (22-30) mmol/L BUN (7-17) mg/dL Creatinine (0.52-1.04) mg/dL Glucose (74-99) mg/dL POC Glucose (mg/dL) 213 H (75-99) mg/dL Total Protein (6.3-8.2) g/dL Assessment and Plan Plan: 1. Lower extremity numbness and weakness likely related to acute exacerbation of multiple sclerosis. Patient will be started on Solu-Medrol 250 mg IV every 6 hours. She has received 7 out of 10 doses. Physical therapy will be consulted. Patient seen by neurology 2. Previous history of right foot infection. No signs of active infection at this time. Patient follows up outpatient with Dr. Skinner 3. Previous history of DVT and PE patient maintained on Coumadin. Daily PT/ INR has been ordered. 4. History of hypothyroidism. Maintain on Synthroid 5. History of CVA and stroke. Patient had CVA approximately 10 years ago that left her with dysphasia and right-sided weakness 6. History of sleep apnea. Patient maintained on CPAP 7. History of hyperlipidemia 8. History of fibromyalgia 9. History of depression 10. Thrombocytopenia: Platelets 94. Continue to monitor. Dr. Kumar consulted Hold Coumadin tonight for INR 3.3. Recheck INR in a.m. and dose Coumadin accordingly DVT prophylaxis Coumadin. GI prophylaxis Protonix.
[2018-04-07] MEDS: LORATADINE 10 MG TAB PO SCH (16:34)
[2018-04-07] MEDS: BACLOFEN 10 MG TAB PO SCH (16:34)
[2018-04-07] MEDS: MONTELUKAST 10 MG TAB PO SCH (16:34)
[2018-04-07] MEDS: FERROUS SULFATE 325 MG TAB PO SCH (16:34)
[2018-04-07] MEDS: SODIUM CHLORIDE 0.9% 1,000 ML IV SCH (16:36)
[2018-04-07 16:45] LABS: Protein, Total 5.8 g/dL (6.2-8.2); Rheumatoid Factor 7 IU/mL (0-15)
[2018-04-07 17:04] LABS: Glucose,Whole Blood 170 mg/dL (75-99)
[2018-04-07 21:04] LABS: Glucose,Whole Blood 217 mg/dL (75-99)
[2018-04-07] MEDS: CITALOPRAM HYDROBROMIDE 20 MG TAB PO SCH (21:25)
[2018-04-07] MEDS: PRAVASTATIN SODIUM 20 MG TAB PO SCH (21:25)
[2018-04-08] MEDS: LEVOTHYROXINE 50 MCG TAB PO SCH (06:31)
[2018-04-08] MEDS: PANTOPRAZOLE 40 MG TABLET PO SCH (06:31)
[2018-04-08] MEDS: INSULIN ASPART 100 UNIT/ML 1 ML 10 ML VIAL SQ SCH ×4 (08:20→22:07)
[2018-04-08 08:40] LABS: Glucose,Whole Blood 118 mg/dL (75-99)
[2018-04-08] MEDS: POTASSIUM CHLORIDE ER 20 MEQ TAB.ER PO SCH ×2 (08:55→16:20)
[2018-04-08] MEDS: FUROSEMIDE 40 MG TAB PO SCH ×2 (08:55→16:08)
[2018-04-08] MEDS: FLUTICASONE 50MCG/SPRAY NASAL 16GM EA NOSTRIL SCH (08:55)
[2018-04-08] MEDS: PREGABALIN 100 MG CAP PO SCH ×3 (08:56→22:10)
[2018-04-08] MEDS: METHYLPHENIDATE HCL 10 MG TAB PO SCH (08:56)
[2018-04-08] MEDS: FOLIC ACID 1 MG TAB PO SCH (08:56)
[2018-04-08] MEDS: NON-FORMULARY DRUG (Dimethyl Fumarate [Tecfidera] 240 MG) PO SCH ×2 (08:57→22:10)
[2018-04-08] MEDS: CHOLECALCIFEROL 1,000 UNIT TAB PO SCH (08:57)
[2018-04-08] MEDS: ASPIRIN 81 MG PO SCH (08:57)
--- NOTE | 2018-04-08 09:27 | P.PN ---
Subjective Progress Note Date: 04/08/18 The patient is a 62-year-old woman with history of MS diagnosed years ago. She is followed by Dr. Woodward had ports that she has had increasing weakness in her legs over the past 2 days. Patient normally walks with a cane.'s a history of stroke which left her with some right-sided paralysis 10 years ago. The patient had an MRI of the brain recently in August when she was again hospitalized with MS exacerbation. Her MRI of the brain at that time showed evidence of a large old left MCA infarct. She also had an MRI of the cervical spine and there was some mild disc desiccation and disc bulge. Demyelination was difficult to exclude. Patient denies any other new complaint but only increasing weakness over the last 2 days in the legs. She has been started on IV Solu-Medrol 250 mg every 6 hours. She gives no recent history of infection. She has had a urinalysis and chest x-ray. The patient has multiple other medical problems including history of stroke with dysphagia and expressive a aphasia, thyroid disorder, depression , pulmonary embolism, sleep apnea, fibromyalgia. 04/05/2018 patient reports improvement in her weakness. She was able to walk from the bathroom to the bed very slowly while holding onto the IV pole. She did require assistance getting back into bed. 04/06/2018 Patient remains on IV solumedrol. She is on 7 out of 10. Patient lying in bed comfortably. Denies any chest pain or shortness of breath. Denies any nausea or vomiting. Reports bowel movements. Denies difficulty urinating. On 04/07/2018 patient is alert and oriented in no apparent distress she is complaining of generalized pain and significant debility she is done with her 10 bags of IV Solu-Medrol she is and able to stand or walk at this time even though she was able to do that prior to admission. At this time will consult physical therapy will also consult Dr. Giles for possible inpatient rehab Will reassess in a.m. On 04/08/2018 patient is alert and oriented 3 in no apparent distress she is complaining of generalized weakness she has difficulty standing up and walking physical therapy has been consulted also consultation for Dr. Giles for possible rehab admission was initiated otherwise patient denies any other complaints at this time there is no fever or chills no headache or dizziness no chest pain no shortness of breath no cough no nausea or vomiting no abdominal pain no diarrhea and no urinary symptoms. Objective - Vital Signs Vital signs: Vital Signs Temp 97.9 F 04/08/18 06:35 Pulse 50 L 04/08/18 06:35 Resp 16 04/08/18 06:35 BP 100/50 04/08/18 06:35 Pulse Ox 94 L 04/08/18 06:35 Intake & Output 04/07/18 04/08/18 04/08/18 18:59 06:59 18:59 Intake Total 725 Balance 725 Intake: Oral 725 Other: Voiding Method Toilet Toilet # Voids 2 1 # Bowel Movements 1 - Exam Head normocephalic and atraumatic Neck supple no JVD no goiter Lungs clear to auscultation bilaterally no wheezing or crackles Heart regular rate and rhythm S1-S2, no rub or gallop Abdomen is soft nontender nondistended positive bowel sounds no hepatosplenomegaly Extremities no edema no cyanosis or clubbing Neuro alert and orientated to 3, expressive aphasia - Labs CBC & Chem 7: 04/07/18 08:42 04/07/18 08:42 Labs: Abnormal Lab Results - Last 24 Hours (Table) 04/07/18 04/07/18 04/07/18 Range/Units 08:42 08:42 08:42 Plt Count 85 L (150-450) k/uL Lymphocytes # 0.6 L (1.0-4.8) k/uL PT 27.8 H (9.0-12.0) sec INR 3.1 H (<1.2) Carbon Dioxide 32 H (22-30) mmol/L BUN 29 H (7-17) mg/dL Creatinine 1.13 H (0.52-1.04) mg/dL Glucose 207 H (74-99) mg/dL POC Glucose (mg/dL) (75-99) mg/dL Total Protein 5.9 L (6.3-8.2) g/dL Total Protein (PEP) (6.2-8.2) g/dL 04/07/18 04/07/18 04/07/18 Range/Units 08:42 11:32 17:02 Plt Count (150-450) k/uL Lymphocytes # (1.0-4.8) k/uL PT (9.0-12.0) sec INR (<1.2) Carbon Dioxide (22-30) mmol/L BUN (7-17) mg/dL Creatinine (0.52-1.04) mg/dL Glucose (74-99) mg/dL POC Glucose (mg/dL) 213 H 170 H (75-99) mg/dL Total Protein (6.3-8.2) g/dL Total Protein (PEP) 5.8 L (6.2-8.2) g/dL 04/07/18 04/08/18 Range/Units 20:52 08:20 Plt Count (150-450) k/uL Lymphocytes # (1.0-4.8) k/uL PT (9.0-12.0) sec INR (<1.2) Carbon Dioxide (22-30) mmol/L BUN (7-17) mg/dL Creatinine (0.52-1.04) mg/dL Glucose (74-99) mg/dL POC Glucose (mg/dL) 217 H 118 H (75-99) mg/dL Total Protein (6.3-8.2) g/dL Total Protein (PEP) (6.2-8.2) g/dL Assessment and Plan Plan: 1. Lower extremity numbness and weakness likely related to acute exacerbation of multiple sclerosis. Patient will be started on Solu-Medrol 250 mg IV every 6 hours. She has received 7 out of 10 doses. Physical therapy will be consulted. Patient seen by neurology 2. Previous history of right foot infection. No signs of active infection at this time. Patient follows up outpatient with Dr. Skinner 3. Previous history of DVT and PE patient maintained on Coumadin. Daily PT/ INR has been ordered. 4. History of hypothyroidism. Maintain on Synthroid 5. History of CVA and stroke. Patient had CVA approximately 10 years ago that left her with dysphasia and right-sided weakness 6. History of sleep apnea. Patient maintained on CPAP 7. History of hyperlipidemia 8. History of fibromyalgia 9. History of depression 10. Thrombocytopenia: Platelets 85. Continue to monitor. Dr. Kumar consulted Hold Coumadin tonight for INR 3.3. Recheck INR in a.m. and dose Coumadin accordingly DVT prophylaxis Coumadin. GI prophylaxis Protonix.
[2018-04-08 10:04] LABS: Albumin 3.5 g/dL (3.5-5.0); Calcium 8.9 mg/dL (8.4-10.2); Potassium 3.7 mmol/L (3.5-5.1); Total Bilirubin 0.6 mg/dL (0.2-1.3); Total Protein 5.6 g/dL (6.3-8.2)
[2018-04-08 10:05] LABS: INR 2.2 (<1.2); Prothrombin Time 19.9 sec (9.0-12.0)
[2018-04-08 10:27] LABS: Basophils % (A) 0 %; Eosinophils # (A) 0.1 k/uL (0-0.7); Eosinophils % (A) 1 %; HCT 38.9 % (34.0-46.0); HGB 13.5 gm/dL (11.4-16.0); Lymphocytes # (A) 0.7 k/uL (1.0-4.8); Lymphocytes % (A) 13 %; MCH 31.1 pg (25.0-35.0); MCHC 34.8 g/dL (31.0-37.0); MCV 89.3 fL (80.0-100.0); Mean Platelet Volume 10.1; Monocytes # (A) 0.3 k/uL (0-1.0); Monocytes % (A) 5 %; Neutrophils # (A) 4.2 k/uL (1.3-7.7); Neutrophils % (A) 80 %; Platelet Count 62 k/uL (150-450); RBC 4.36 m/uL (3.80-5.40); RDW 14.5 % (11.5-15.5); WBC 5.3 k/uL (3.8-10.6)
[2018-04-08 12:34] LABS: Glucose,Whole Blood 77 mg/dL (75-99)
[2018-04-08] MEDS: BACLOFEN 10 MG TAB PO SCH (16:08)
[2018-04-08] MEDS: MONTELUKAST 10 MG TAB PO SCH (16:08)
[2018-04-08] MEDS: FERROUS SULFATE 325 MG TAB PO SCH ×2 (16:08→16:20)
[2018-04-08] MEDS: LORATADINE 10 MG TAB PO SCH (16:08)
[2018-04-08] MEDS: SODIUM CHLORIDE 0.9% 1,000 ML IV SCH (16:21)
[2018-04-08 17:35] LABS: Glucose,Whole Blood 124 mg/dL (75-99)
[2018-04-08] MEDS ORDERED: WARFARIN 2.5 MG TAB PO ONE (18:00)
[2018-04-08 22:06] LABS: Glucose,Whole Blood 125 mg/dL (75-99)
[2018-04-08] MEDS: PRAVASTATIN SODIUM 20 MG TAB PO SCH (22:10)
[2018-04-08] MEDS: CITALOPRAM HYDROBROMIDE 20 MG TAB PO SCH (22:10)
[2018-04-09] MEDS: LEVOTHYROXINE 50 MCG TAB PO SCH (05:25)
[2018-04-09] MEDS: PANTOPRAZOLE 40 MG TABLET PO SCH (05:25)
--- NOTE | 2018-04-09 06:35 | P.CONS ---
History of Present Illness - Chief Complaint Gait disturbance - History of Present Illness I had the opportunity to see patient for inpatient rehab consultation with regard to gait disturbance. She was admitted to [facility] April 04 with MS exacerbation with lower extremity pain and weakness of 2 days' duration. Seen by for Dr. Elizabeth. Seen by Dr. Kumar for thrombocytopenia. Abdominal ultrasound negative. Head CT with old left MCA infarct. Chest x-ray with mild cardiomegaly. PT reports modified independent with functional mobility and gait 30 feet without device. OT reports modified independent. Previous functional history unobtainable due to patient's a aphasia from previous stroke. Review of Systems Review of systems: Gleaned from chart and exam of patient. ENT: Denies sneezes or discharge. Eyes: Denies discharge or photophobia. Cardiac: Denies chest pain or palpitation. Pulmonary: Denies cough or shortness of breath. Breast: Denies discharge or lumps. Gastrointestinal: Denies nausea, emesis, constipation, diarrhea. Genitourinary: Denies discharge or frequency. Musculoskeletal: Denies muscle or bone aches. Neurologic: At least mild generalized weakness. Long-standing a aphasia now. Endocrine: Denies shakes or sweats. Oncology: Denies cancers. Dermatologic: Denies rash, itching, pruritus. ALLERGY/immunology: Denies sneezes, rashes. Past Medical History Past Medical History: Chest Pain / Angina, CVA/TIA, Fibromyalgia, Musculoskeletal Disorder, Neurologic Disorder, Osteoarthritis (OA), Pulmonary Embolus (PE), Sleep Apnea/CPAP/BIPAP, Thyroid Disorder Additional Past Medical History / Comment(s): MULTIPLE SCLEROSIS, HX OF CVA 2006 WITH R SIDED WEAKNESS AND DYSPHASIA-MUCH IMPROVED, MIGRAINES, SLEEP APNEA( HAS C-PAP MACHINE BUT DOES NOT USE) ABD HERNIA,CHRONIC PAIN ESPECIALLY ON R SIDE OF BODY AND LOW BACK . PAINFUL FOR HER TO LIE FLAT. HX OF NOSEBLEED JUL 2014 AND RECEIVED PLASMA TRANSFUSION. takes pills with applesauce. 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 MDRO Source:: URINE Past Surgical History: Appendectomy, Cholecystectomy, Hysterectomy Additional Past Surgical History / Comment(s): Incisional hernia repair, laparoscopic lysis of adhesions in 1987, ganglion cyst removal of the left wrist , patent foramen ovale patch in 2007, RF ablation for back pain. Past Anesthesia/Blood Transfusion Reactions: No Reported Reaction Past Psychological History: Depression Additional Psychological History / Comment(s): CELEXA. PT HAS DIFFICULTY W/ SPEECH BUT IS MUCH IMPROVED. HAS TO LOOK AT DIETARY MENU TO ORDER CAN'T DO IT BY PHONE. Pt resides with her spouse. She uses a cane to ambulate. She also has a walker. Spouse drives her to appointments. Spouse assists her with some ADLs when needed. Smoking Status: Never smoker Past Alcohol Use History: None Reported Past Drug Use History: None Reported Additional Drug Use History / Comment(s): Lives at home with her requires some assistance with ADLs at times - Past Family History Mother Family Medical History: Hypertension Additional Family Medical History / Comment(s): osteoporosis Father Family Medical History: Dementia Medications and Allergies Home Medications Medication Instructions Recorded Confirmed Type Aspirin 81 mg PO DAILY@0911/08/13 04/04/18 History Baclofen [Lioresal] 10 mg PO DAILY@169911/08/13 04/04/18 History Citalopram Hydrobromide [CeleXA] 40 mg PO HS@2100 11/08/13 04/04/18 History Ferrous Sulfate [Feosol] 325 mg PO DAILY@169911/08/13 04/04/18 History Fexofenadine HCl [Mimi Allergy] 180 mg PO DAILY@169911/08/13 04/04/18 History Furosemide [Lasix] 40 mg PO BID@0900,0 11/08/13 04/04/18 History Montelukast [Singulair] 10 mg PO DAILY@169911/08/13 04/04/18 History Nitroglycerin Sl Tabs [Nitrostat] 0.4 mg SUBLINGUAL Q5M PRN 11/08/13 04/04/18 History Pantoprazole Sodium [Protonix] 40 mg PO DAILY@0600 11/08/13 04/04/18 History Potassium Chloride 20 meq PO BID@0900,1700 11/08/13 04/04/18 History Cholecalciferol [Vitamin D3] 2,000 unit PO DAILY@0900 11/17/16 04/04/18 History Fluticasone Nasal [place] [Flonase 1 spray EA NOSTRIL DAILY@11/18/15 History Nasal [place]] Methylphenidate HCl [Ritalin] 20 mg PO QAM@89911/18/15 04/04/18 History Pravastatin Sodium [Pravachol] 20 mg PO HS@2100 11/18/15 04/04/18 History fentaNYL [Fentanyl] 25 mcg TRANSDERM Q72H 11/18/15 04/04/18 History Pregabalin [Lyrica] 100 mg PO TID@0900,1700,2100 07/13/16 04/04/18 History Folic Acid 0.4 mg PO DAILY@0908/18/16 04/04/18 History Biotin 10,000 mcg PO DAILY@0907/06/17 04/04/18 History Levothyroxine Sodium [Synthroid] 50 mcg PO DAILY@0611/20/17 04/04/18 History Dimethyl Fumarate [Tecfidera] 240 mg PO BID@04/04/18 04/04/18 History HYDROcodone/APAP 5-325MG [[place] 1 tab PO DAILY PRN 04/04/18 04/04/18 History 5-325] Warfarin [Coumadin] 7.5 mg PO DAILY@1700 04/04/18 04/04/18 History Allergies Allergy/AdvReac Type Severity Reaction Status Date / Time adhesive Allergy SKIN Verified 04/04/18 15:24 PEELING Physical Exam Vitals: Vital Signs Temp Pulse Resp BP BP Pulse Ox 04/09/18 06:16 97.7 F 51 L 20 102/60 94 L 04/08/18 23:00 97.8 F 56 L 20 92/52 93 L 04/08/18 15:00 97.7 F 68 16 100/44 95 04/08/18 06:35 97.9 F 50 L 16 100/50 94 L Intake and Output 04/08/18 04/08/18 04/09/18 14:59 22:59 06:59 Intake Total 800 480 200 Balance 800 480 200 Intake: Oral 800 480 200 Other: Voiding Method Toilet # Voids 2 2 1 # Bowel Movements 1 Weight 86 kg 86 kg Skin: Good color, texture, turgor. General: Overweight build and comfortable appearance. Head: Normocephalic, atraumatic. Eyes: Symmetric. Pupils equal round. Ears: Symmetric. Hearing within normal limits. Mouth: Clear. Neck: Supple. Carotid without bruit. Cardiac: Regular rate and rhythm. Lungs: Clear anteriorly and posteriorly. Abdomen: Soft active nontender. Extremities: Normal tone. Neurological: Mental status: Alert, cooperative, pleasant. Aphasia. Cranial nerves: Symmetric facial tone and trapezius. Motor: Active movement and elevation off of bed all 4 limbs. Sensation: Intact throughout. DTRs: Symmetric and equal throughout. Mobility: Not attempt to sit or stand this a.m. Results CBC & Chem 7: 04/08/18 09:36 04/08/18 09:36 Labs: Abnormal Lab Results - Last 24 Hours (Table) 04/07/18 04/08/18 04/08/18 Range/Units 08:42 08:20 09:36 Plt Count 62 L (150-450) k/uL Lymphocytes # 0.7 L (1.0-4.8) k/uL PT (9.0-12.0) sec INR (<1.2) BUN (7-17) mg/dL Creatinine (0.52-1.04) mg/dL Glucose (74-99) mg/dL POC Glucose (mg/dL) 118 H (75-99) mg/dL Total Protein (6.3-8.2) g/dL RBC Folate 1,029 H (280 - 791) ng/mL 04/08/18 04/08/18 04/08/18 Range/Units 09:36 09:36 17:18 Plt Count (150-450) k/uL Lymphocytes # (1.0-4.8) k/uL PT 19.9 H (9.0-12.0) sec INR 2.2 H (<1.2) BUN 33 H (7-17) mg/dL Creatinine 1.05 H (0.52-1.04) mg/dL Glucose 209 H (74-99) mg/dL POC Glucose (mg/dL) 124 H (75-99) mg/dL Total Protein 5.6 L (6.3-8.2) g/dL RBC Folate (280 - 791) ng/mL 04/08/18 Range/Units 22:01 Plt Count (150-450) k/uL Lymphocytes # (1.0-4.8) k/uL PT (9.0-12.0) sec INR (<1.2) BUN (7-17) mg/dL Creatinine (0.52-1.04) mg/dL Glucose (74-99) mg/dL POC Glucose (mg/dL) 125 H (75-99) mg/dL Total Protein (6.3-8.2) g/dL RBC Folate (280 - 791) ng/mL Assessment and Plan (1) Exacerbation of multiple sclerosis Current Visit: Yes Status: Acute Code(s): G35 - MULTIPLE SCLEROSIS SNOMED Code(s): 866985836 (2) 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 Gait disturbance. 2. MS exacerbation. 3. Left MCA stroke result in expressive and receptive 3 aphasia. 4. Fiber myalgia. 5. Sleep apnea. 6. History of angina and PE. Comments and plan: At this time PT and OT are ongoing. Both are reported patient independent to modified independent. Thus at this time patient to good for inpatient rehab. We'll continue to follow with you though.
[2018-04-09 07:31] LABS: Glucose,Whole Blood 136 mg/dL (75-99)
[2018-04-09] MEDS: FUROSEMIDE 40 MG TAB PO SCH (09:45)
[2018-04-09] MEDS: FOLIC ACID 1 MG TAB PO SCH (09:45)
[2018-04-09] MEDS: POTASSIUM CHLORIDE ER 20 MEQ TAB.ER PO SCH (09:45)
[2018-04-09] MEDS: CHOLECALCIFEROL 1,000 UNIT TAB PO SCH (09:45)
[2018-04-09] MEDS: INSULIN ASPART 100 UNIT/ML 1 ML 10 ML VIAL SQ SCH ×2 (09:46→13:43)
[2018-04-09] MEDS: FLUTICASONE 50MCG/SPRAY NASAL 16GM EA NOSTRIL SCH (09:46)
[2018-04-09] MEDS: PREGABALIN 100 MG CAP PO SCH (09:46)
[2018-04-09] MEDS: ASPIRIN 81 MG PO SCH (09:46)
[2018-04-09] MEDS: NON-FORMULARY DRUG (Dimethyl Fumarate [Tecfidera] 240 MG) PO SCH (09:48)
[2018-04-09] MEDS: METHYLPHENIDATE HCL 10 MG TAB PO SCH (09:49)
[2018-04-09 10:41] LABS: Basophils % (A) 0 %; Eosinophils # (A) 0.2 k/uL (0-0.7); Eosinophils % (A) 4 %; HCT 41.9 % (34.0-46.0); Lymphocytes # (A) 0.5 k/uL (1.0-4.8); Lymphocytes % (A) 15 %; MCH 30.3 pg (25.0-35.0); MCHC 33.5 g/dL (31.0-37.0); MCV 90.5 fL (80.0-100.0); Mean Platelet Volume 9.7; Monocytes # (A) 0.2 k/uL (0-1.0); Monocytes % (A) 7 %; Neutrophils # (A) 2.5 k/uL (1.3-7.7); Neutrophils % (A) 72 %; RBC 4.63 m/uL (3.80-5.40); RDW 14.4 % (11.5-15.5); WBC 3.5 k/uL (3.8-10.6)
[2018-04-09 10:46] LABS: Platelet Count 68 k/uL (150-450)
[2018-04-09 10:56] LABS: INR 1.6 (<1.2); Prothrombin Time 14.7 sec (9.0-12.0)
[2018-04-09 11:05] LABS: Albumin 3.2 g/dL (3.5-5.0); Calcium 8.5 mg/dL (8.4-10.2); Total Bilirubin 0.8 mg/dL (0.2-1.3); Total Protein 5.4 g/dL (6.3-8.2)
[2018-04-09 12:30] LABS: Glucose,Whole Blood 128 mg/dL (75-99)
[2018-04-09 14:25] VITALS: BP 99/54; PULSE 68; RESP 16; TEMP 98.1
--- NOTE | 2018-04-09 14:39 | P.DS ---
Providers Date of admission: 04/04/18 14:15 Expected date of discharge: 04/09/18 Attending physician: Sarah Paredes Consults: 04/04/18 16:55 Consult Physician Routine Consulting Provider: Foreign Rousseau Consult Reason/Comments: MS exacerbation Do you want consulting provider notified?: Yes 04/05/18 12:47 Consult Physician Routine Consulting Provider: Christian Kumar Consult Reason/Comments: Thrombocytopenia Do you want consulting provider notified?: Yes 04/07/18 15:47 Consult Physician Routine Consulting Provider: Aaron Abdul Consult Reason/Comments: gait disturbance Do you want consulting provider notified?: Yes Primary care physician: Sarah Paredes [facility] Course: Discharge diagnosis 1. Lower extremity numbness and weakness likely related to acute exacerbation of multiple sclerosis. Patient completed IV Solu-Medrol treatment in the hospital. She is ambulating better. She'll continue with home care at home 2. Previous history of right foot infection. No signs of active infection at this time. Patient follows up outpatient with Dr. Skinner 3. Previous history of DVT and PE patient maintained on Coumadin. INR subtherapeutic at 1.6. She received Coumadin 5 mg today and resume home dose of Coumadin tomorrow 4. History of hypothyroidism. Maintain on Synthroid 5. History of CVA and stroke. Patient had CVA approximately 10 years ago that left her with dysphasia and right-sided weakness 6. History of sleep apnea. Patient maintained on CPAP 7. History of hyperlipidemia 8. History of fibromyalgia 9. History of depression 10. Thrombocytopenia: Platelets 68. Continue to monitor. Patient seen by hematology. She will follow-up with hematology for further workup on her thrombocytopenia Hospital course The patient is a 62-year-old woman with history of MS diagnosed years ago. She is followed by Dr. Woodward had ports that she has had increasing weakness in her legs over the past 2 days. Patient normally walks with a cane.'s a history of stroke which left her with some right-sided paralysis 10 years ago. The patient had an MRI of the brain recently in August when she was again hospitalized with MS exacerbation. Her MRI of the brain at that time showed evidence of a large old left MCA infarct. She also had an MRI of the cervical spine and there was some mild disc desiccation and disc bulge. Demyelination was difficult to exclude. Patient denies any other new complaint but only increasing weakness over the last 2 days in the legs. She has been started on IV Solu-Medrol 250 mg every 6 hours. She gives no recent history of infection. She has had a urinalysis and chest x-ray. The patient has multiple other medical problems including history of stroke with dysphagia and expressive a aphasia, thyroid disorder, depression , pulmonary embolism, sleep apnea, fibromyalgia. 04/05/2018 patient reports improvement in her weakness. She was able to walk from the bathroom to the bed very slowly while holding onto the IV pole. She did require assistance getting back into bed. 04/06/2018 Patient remains on IV solumedrol. She is on 7 out of 10. Patient lying in bed comfortably. Denies any chest pain or shortness of breath. Denies any nausea or vomiting. Reports bowel movements. Denies difficulty urinating. On 04/07/2018 patient is alert and oriented in no apparent distress she is complaining of generalized pain and significant debility she is done with her 10 bags of IV Solu-Medrol she is and able to stand or walk at this time even though she was able to do that prior to admission. At this time will consult physical therapy will also consult Dr. Giles for possible inpatient rehab Will reassess in a.m. On 04/08/2018 patient is alert and oriented 3 in no apparent distress she is complaining of generalized weakness she has difficulty standing up and walking physical therapy has been consulted also consultation for Dr. Giles for possible rehab admission was initiated otherwise patient denies any other complaints at this time there is no fever or chills no headache or dizziness no chest pain no shortness of breath no cough no nausea or vomiting no abdominal pain no diarrhea and no urinary symptoms. 04/09/2018 patient is medical stable for discharge. She has completed IV Solu- Medrol for her MS exacerbation. She is ambulating better. She was not a candidate for inpatient rehab. Patient will go home with home care. Patient seen by neurology during this event hospitalization. She was also seen by hematology regarding her thrombocytopenia. She'll complete further workup for her thrombocytopenia in the outpatient setting. We'll have her follow-up with Dr. Kumar in 3 days and have repeat blood work at that time. Patient can remain on her Coumadin for now. INR is subtherapeutic at 1.6 as stated above she will receive Coumadin today before discharge. Patient is medical stable for discharge. She'll follow up with Dr. Paredes in [address] Kumar in 3 days. I performed an examination of the patient and discussed their management with the physician Machine Operator Assistant. I have reviewed the Physician Machine Operator Assistant's notes and agree with the documented findings and plan of care Patient Condition at Discharge: Stable Plan - Discharge Summary New Discharge Prescriptions: Continue Baclofen [Lioresal] 10 mg PO DAILY@1700 Aspirin 81 mg PO DAILY@0900 Montelukast [Singulair] 10 mg PO DAILY@1700 Furosemide [Lasix] 40 mg PO BID@0900,1700 Potassium Chloride 20 meq PO BID@0900,1700 Citalopram Hydrobromide [CeleXA] 40 mg PO HS@2100 Nitroglycerin Sl Tabs [Nitrostat] 0.4 mg SUBLINGUAL Q5M PRN PRN Reason: Chest Pain Pantoprazole Sodium [Protonix] 40 mg PO DAILY@0600 Ferrous Sulfate [Feosol] 325 mg PO DAILY@1700 Fexofenadine HCl [Mimi Allergy] 180 mg PO DAILY@1700 Cholecalciferol [Vitamin D3] 2,000 unit PO DAILY@0900 Pravastatin Sodium [Pravachol] 20 mg PO HS@2100 Methylphenidate HCl [Ritalin] 20 mg PO QAM@0900 Fluticasone Nasal [place] [Flonase Nasal [place]] 1 spray EA NOSTRIL DAILY@0900 fentaNYL [Fentanyl] 25 mcg TRANSDERM Q72H Pregabalin [Lyrica] 100 mg PO TID@0900,1700,2100 Folic Acid 0.4 mg PO DAILY@0900 Biotin 10,000 mcg PO DAILY@0900 Levothyroxine Sodium [Synthroid] 50 mcg PO DAILY@0600 Dimethyl Fumarate [Tecfidera] 240 mg PO BID@ HYDROcodone/APAP 5-325MG [[place] 5-325] 1 tab PO DAILY PRN PRN Reason: Pain Warfarin [Coumadin] 7.5 mg PO DAILY@1700 Discharge Medication List Aspirin 81 mg PO DAILY@0900 11/08/13 [History] Baclofen [Lioresal] 10 mg PO DAILY@1700 11/08/13 [History] Citalopram Hydrobromide [CeleXA] 40 mg PO HS@209911/08/13 [History] Ferrous Sulfate [Feosol] 325 mg PO DAILY@169911/08/13 [History] Fexofenadine HCl [Mimi Allergy] 180 mg PO DAILY@169911/08/13 [History] Furosemide [Lasix] 40 mg PO BID@0900,169911/08/13 [History] Montelukast [Singulair] 10 mg PO DAILY@169911/08/13 [History] Nitroglycerin Sl Tabs [Nitrostat] 0.4 mg SUBLINGUAL Q5M PRN 11/08/13 [History] Pantoprazole Sodium [Protonix] 40 mg PO DAILY@59911/08/13 [History] Potassium Chloride 20 meq PO BID@0900,169911/08/13 [History] Cholecalciferol [Vitamin D3] 2,000 unit PO DAILY@89911/18/15 [History] Fluticasone Nasal [place] [Flonase Nasal [place]] 1 spray EA NOSTRIL DAILY@899 [History] Methylphenidate HCl [Ritalin] 20 mg PO QAM@89911/18/15 [History] Pravastatin Sodium [Pravachol] 20 mg PO HS@209911/18/15 [History] fentaNYL [Fentanyl] 25 mcg TRANSDERM Q72H 11/18/15 [History] Pregabalin [Lyrica] 100 mg PO TID@0900,1700,209907/13/16 [History] Folic Acid 0.4 mg PO DAILY@0908/18/16 [History] Biotin 10,000 mcg PO DAILY@89907/06/17 [History] Levothyroxine Sodium [Synthroid] 50 mcg PO DAILY@0611/20/17 [History] Dimethyl Fumarate [Tecfidera] 240 mg PO BID@04/04/18 [History] HYDROcodone/APAP 5-325MG [[place] 5-325] 1 tab PO DAILY PRN 04/04/18 [History] Warfarin [Coumadin] 7.5 mg PO DAILY@169904/04/18 [History] Follow up Appointment(s)/Referral(s): Sarah Paredes MD [Primary Care Provider] - 1 Week José,Christian, MD [STAFF PHYSICIAN] - 3 Days Ambulatory/Diagnostic Orders: Complete Blood Count w/diff [LAB.AMB] Time Frame: 3 Days, Location: None Selected Prothrombin Time INR [LAB.AMB] Time Frame: 3 Days, Location: None Selected Activity/Diet/Wound Care/Special Instructions: Activity: as tolerated Diet: cardiac Discharge Disposition: HOME WITH HOME HEALTH SERVICES
[2018-04-09 15:02] LABS: Albumin 3.72 g/dL (3.80-4.90); Gamma Globulin 0.49 g/dL (0.70-1.50)
[2018-04-09] MEDS: SODIUM CHLORIDE 0.9% 1,000 ML IV SCH (16:06)
[2018-04-09] MEDS ORDERED: WARFARIN 5 MG TAB PO ONE (18:00)
[2018-04-10 09:34] LABS: Methylmalonic Acid 0.32 umol/L (<0.40)
== END 2018-04-09 16:47 | disposition home or self-care (01) | DRG 59 ==
LOC: 4MS4W 14:15
PROVIDERS: ADMIT Internal Medicine; ATTEND Internal Medicine
DX: G35 Multiple sclerosis (principal); I69.951 Hemiplegia and hemiparesis following unspecified cerebrovascular disease affecting right dominant side; D69.6 Thrombocytopenia, unspecified; R26.9 Unspecified abnormalities of gait and mobility; G43.909 Migraine, unspecified, not intractable, without status migrainosus; M19.90 Unspecified osteoarthritis, unspecified site; G89.29 Other chronic pain; E03.9 Hypothyroidism, unspecified; E78.5 Hyperlipidemia, unspecified; F32.9 Major depressive disorder, single episode, unspecified; G47.30 Sleep apnea, unspecified; I51.7 Cardiomegaly; M79.7 Fibromyalgia; I69.920 Aphasia following unspecified cerebrovascular disease; I69.991 Dysphagia following unspecified cerebrovascular disease; Z79.01 Long term (current) use of anticoagulants; Z79.82 Long term (current) use of aspirin; Z79.890 Hormone replacement therapy; Z79.899 Other long term (current) drug therapy; Z90.49 Acquired absence of other specified parts of digestive tract; Z86.711 Personal history of pulmonary embolism; Z86.718 Personal history of other venous thrombosis and embolism; Z90.710 Acquired absence of both cervix and uterus; Z91.048 Other nonmedicinal substance allergy status; Z82.62 Family history of osteoporosis; Z82.49 Family history of ischemic heart disease and other diseases of the circulatory system
CPT/HCPCS: 70450; 71046; 76705; 80053; 81001; 82607; 82747; 83883; 83921; 84165; 85025; 85610; 86038; 86334; 86431

== ENCOUNTER → 2018-04-18 | Outpatient (CLI) | payer MEDICARE ==
[2018-04-18 17:37] LABS: Basophils % (A) 0 %; Eosinophils # (A) 0.2 k/uL (0-0.7); Eosinophils % (A) 4 %; HCT 40.7 % (34.0-46.0); HGB 13.4 gm/dL (11.4-16.0); Lymphocytes # (A) 0.6 k/uL (1.0-4.8); Lymphocytes % (A) 11 %; MCV 90.9 fL (80.0-100.0); Mean Platelet Volume 9.3; Monocytes # (A) 0.3 k/uL (0-1.0); Monocytes % (A) 4 %; Neutrophils # (A) 4.7 k/uL (1.3-7.7); Neutrophils % (A) 80 %; Platelet Count 100 k/uL (150-450); RBC 4.48 m/uL (3.80-5.40); RDW 14.5 % (11.5-15.5); WBC 5.9 k/uL (3.8-10.6)
== END ==
LOC: LABWHC1 16:10
PROVIDERS: ATTEND Physician Assistant
DX: D69.6 Thrombocytopenia, unspecified (principal)
CPT/HCPCS: 36415; 85025

== ENCOUNTER 2018-04-25 15:44 | Inpatient (IN) | payer MEDICARE ==
[2018-04-25 15:50] LABS: Glucose,Whole Blood 104 mg/dL (75-99)
[2018-04-25 16:02] LABS: Basophils % (A) 1 %; Eosinophils # (A) 0.2 k/uL (0-0.7); Eosinophils % (A) 7 %; HCT 39.3 % (34.0-46.0); HGB 13.3 gm/dL (11.4-16.0); Lymphocytes # (A) 0.4 k/uL (1.0-4.8); Lymphocytes % (A) 14 %; MCH 30.3 pg (25.0-35.0); MCHC 33.9 g/dL (31.0-37.0); MCV 89.3 fL (80.0-100.0); Mean Platelet Volume 9.9; Monocytes # (A) 0.2 k/uL (0-1.0); Monocytes % (A) 6 %; Neutrophils % (A) 68 %; Platelet Count 108 k/uL (150-450); RDW 14.3 % (11.5-15.5)
[2018-04-25 16:11] LABS: INR 1.6 (<1.2); Partial Thromboplastin Time 27.2 sec (22.0-30.0); Prothrombin Time 14.4 sec (9.0-12.0)
[2018-04-25 16:13] LABS: Albumin 3.9 g/dL (3.5-5.0); Calcium 9.5 mg/dL (8.4-10.2); Potassium 4.1 mmol/L (3.5-5.1); Total Bilirubin 0.8 mg/dL (0.2-1.3); Total Protein 6.3 g/dL (6.3-8.2)
[2018-04-25 16:23] LABS: Creatine Kinase 29 U/L (30-135)
--- NOTE | 2018-04-25 16:25 | XR ---
EXAMINATION TYPE: XR chest 2V DATE OF EXAM: 04/25/2018 COMPARISON: Prior chest x-ray 04/04/2018 HISTORY: Altered mental status TECHNIQUE: Frontal and lateral views of the chest are obtained. FINDINGS: Patient is rotated. Cardiac mediastinal silhouette, pulmonary vascularity and jeb are sta ble. There are overlying cardiac leads. No evident airspace disease, pneumothorax, or pleural effusio n. There is elevation of right hemidiaphragm as on prior exam. IMPRESSION: No acute cardiopulmonary process.
--- NOTE | 2018-04-25 16:31 | ED ---
Neuro HPI - General Stated Complaint: POSS CVA Time Seen by Provider: 04/25/18 15:44 Source: patient, EMS, RN notes reviewed, old records reviewed Mode of arrival: EMS - History of Present Illness Is the patient presenting with stroke symptoms?: Yes Initial Comments: This is a 62-year-old female with a history of MS she had a thyroid disease and angina who was sent in by EMS from her doctor's office with complaints of difficulty with speech and possible stroke. Patient started having trouble with speech is prior to admission approximately 20 minutes prior to arrival. Complaints of right facial asymmetry no upper or lower extremity weakness however. No headache fevers chills nausea vomiting sweats or other symptoms. - Related Data Home Medications: Home Medications Medication Instructions Recorded Confirmed Aspirin 81 mg PO DAILY@89911/08/13 04/25/18 Baclofen [Lioresal] 10 mg PO DAILY@169911/08/13 04/25/18 Citalopram Hydrobromide [CeleXA] 40 mg PO HS@2100 11/08/13 04/25/18 Ferrous Sulfate [Feosol] 325 mg PO DAILY@169911/08/13 04/25/18 Fexofenadine HCl [Mimi Allergy] 180 mg PO DAILY@169911/08/13 04/25/18 Furosemide [Lasix] 40 mg PO BID@0900,169911/08/13 04/25/18 Montelukast [Singulair] 10 mg PO DAILY@169911/08/13 04/25/18 Nitroglycerin Sl Tabs [Nitrostat] 0.4 mg SUBLINGUAL Q5M PRN 11/08/13 04/25/18 Pantoprazole Sodium [Protonix] 40 mg PO DAILY@0611/08/13 04/25/18 Potassium Chloride 20 meq PO BID@0900,169911/08/13 04/25/18 Cholecalciferol [Vitamin D3] 2,000 unit PO DAILY@89911/18/15 04/25/18 Fluticasone Nasal [place] [Flonase 1 spray EA NOSTRIL DAILY@89911/18/15 04/25/18 Nasal [place]] Methylphenidate HCl [Ritalin] 20 mg PO QAM@89911/18/15 04/25/18 Pravastatin Sodium [Pravachol] 20 mg PO HS@2100 11/18/15 04/25/18 fentaNYL [Fentanyl] 25 mcg TRANSDERM Q72H 11/18/15 04/25/18 Pregabalin [Lyrica] 100 mg PO TID@0900,1700,2100 07/13/16 04/25/18 Folic Acid 0.4 mg PO DAILY@0900 08/18/16 04/25/18 Biotin 10,000 mcg PO DAILY@0900 07/06/17 04/25/18 Levothyroxine Sodium [Synthroid] 50 mcg PO DAILY@0600 11/20/17 04/25/18 Dimethyl Fumarate [Tecfidera] 240 mg PO BID@04/04/18 04/25/18 HYDROcodone/APAP 5-325MG [[place] 1 tab PO DAILY PRN 04/04/18 04/25/18 5-325] Warfarin [Coumadin] 7.5 mg PO DAILY@1700 04/04/18 04/25/18 Allergies/Adverse Reactions: Allergies Allergy/AdvReac Type Severity Reaction Status Date / Time adhesive Allergy SKIN Verified 04/25/18 16:40 PEELING Review of Systems ROS Statement: Those systems with pertinent positive or pertinent negative responses have been documented in the HPI. ROS Other: All systems not noted in ROS Statement are negative. General Exam - General Exam Comments Initial Comments: Is a well-developed well-nourished anxious female who is awake and alert but does demonstrate evidence of slurred speech and right sided facial Limitations: physical limitation General appearance: alert, anxious Head exam: Present: other (Right-sided facial asymmetry with flattening of the right nasolabial fold the forehead is spared) Eye exam: Present: normal appearance, PERRL, EOMI. Absent: scleral icterus, conjunctival injection, periorbital swelling ENT exam: Present: normal exam Neck exam: Present: normal inspection, other (No stridor JVD or bruits). Absent : tenderness, meningismus, lymphadenopathy Respiratory exam: Present: normal lung sounds bilaterally. Absent: respiratory distress, wheezes, rales, rhonchi, stridor Cardiovascular Exam: Present: regular rate, normal rhythm, normal heart sounds. Absent: systolic murmur, diastolic murmur, rubs, gallop, clicks GI/Abdominal exam: Present: soft, normal bowel sounds. Absent: distended, tenderness, guarding, rebound, rigid, bruit, pulsatile mass, hernia Rectal exam: Present: deferred Extremities exam: Present: normal inspection, full ROM, normal capillary refill. Absent: tenderness, pedal edema, joint swelling, calf tenderness Back exam: Present: normal inspection Neurological exam: Present: alert, oriented X3. Absent: CN II-XII intact Psychiatric exam: Present: normal affect, anxious Skin exam: Present: warm, dry, intact, normal color. Absent: rash Stroke MDM - Lab Data Result diagrams: 04/25/18 15:48 04/25/18 15:48 Lab Results 04/25/18 04/25/18 04/25/18 Range/Units 15:48 15:48 15:48 WBC 3.0 L (3.8-10.6) k/uL RBC 4.40 (3.80-5.40) m/uL Hgb 13.3 (11.4-16.0) gm/dL Hct 39.3 (34.0-46.0) % MCV 89.3 (80.0-100.0) fL MCH 30.3 (25.0-35.0) pg MCHC 33.9 (31.0-37.0) g/dL RDW 14.3 (11.5-15.5) % Plt Count 108 L (150-450) k/uL Neutrophils % 68 % Lymphocytes % 14 % Monocytes % 6 % Eosinophils % 7 % Basophils % 1 % Neutrophils # 2.0 (1.3-7.7) k/uL Lymphocytes # 0.4 L (1.0-4.8) k/uL Monocytes # 0.2 (0-1.0) k/uL Eosinophils # 0.2 (0-0.7) k/uL Basophils # 0.0 (0-0.2) k/uL PT (9.0-12.0) sec INR (<1.2) APTT (22.0-30.0) sec Sodium 139 (137-145) mmol/L Potassium 4.1 (3.5-5.1) mmol/L Chloride 103 (98-107) mmol/L Carbon Dioxide 30 (22-30) mmol/L Anion Gap 6 mmol/L BUN 25 H (7-17) mg/dL Creatinine 1.13 H (0.52-1.04) mg/dL Est GFR (CKD-EPI)AfAm 60 (>60 ml/min/1.73 sqM) Est GFR (CKD-EPI)NonAf 52 (>60 ml/min/1.73 sqM) Glucose 105 H (74-99) mg/dL POC Glucose (mg/dL) 104 H (75-99) mg/dL POC Glu Medical Coder ID Piper Ramirez Calcium 9.5 (8.4-10.2) mg/dL Total Bilirubin 0.8 (0.2-1.3) mg/dL AST 24 (14-36) U/L ALT 34 (9-52) U/L Alkaline Phosphatase 69 (38-126) U/L Total Creatine Kinase (30-135) U/L CK-MB (CK-2) (0.0-2.4) ng/mL CK-MB (CK-2) Rel Index Troponin I (0.000-0.034) ng/mL Total Protein 6.3 (6.3-8.2) g/dL Albumin 3.9 (3.5-5.0) g/dL 04/25/18 04/25/18 Range/Units 15:48 15:48 WBC (3.8-10.6) k/uL RBC (3.80-5.40) m/uL Hgb (11.4-16.0) gm/dL Hct (34.0-46.0) % MCV (80.0-100.0) fL MCH (25.0-35.0) pg MCHC (31.0-37.0) g/dL RDW (11.5-15.5) % Plt Count (150-450) k/uL Neutrophils % % Lymphocytes % % Monocytes % % Eosinophils % % Basophils % % Neutrophils # (1.3-7.7) k/uL Lymphocytes # (1.0-4.8) k/uL Monocytes # (0-1.0) k/uL Eosinophils # (0-0.7) k/uL Basophils # (0-0.2) k/uL PT 14.4 H (9.0-12.0) sec INR 1.6 H (<1.2) APTT 27.2 (22.0-30.0) sec Sodium (137-145) mmol/L Potassium (3.5-5.1) mmol/L Chloride (98-107) mmol/L Carbon Dioxide (22-30) mmol/L Anion Gap mmol/L BUN (7-17) mg/dL Creatinine (0.52-1.04) mg/dL Est GFR (CKD-EPI)AfAm (>60 ml/min/1.73 sqM) Est GFR (CKD-EPI)NonAf (>60 ml/min/1.73 sqM) Glucose (74-99) mg/dL POC Glucose (mg/dL) (75-99) mg/dL POC Glu Medical Coder ID Calcium (8.4-10.2) mg/dL Total Bilirubin (0.2-1.3) mg/dL AST (14-36) U/L ALT (9-52) U/L Alkaline Phosphatase (38-126) U/L Total Creatine Kinase 29 L (30-135) U/L CK-MB (CK-2) 0.3 (0.0-2.4) ng/mL CK-MB (CK-2) Rel Index 1.0 Troponin I <0.012 (0.000-0.034) ng/mL Total Protein (6.3-8.2) g/dL Albumin (3.5-5.0) g/dL - NIH Stroke Scale 1a. Level of Consciousness: (0) alert 1b. LOC Questions: (1) answers 1 question correctly 1c. LOC Commands: (0) performs tasks correctly 2. Best Gaze: (0) normal 3. Visual: (0) no visual loss 4. Facial Palsy: (2) partial paralysis 5a. Motor Arm Left: (0) no drift 5b. Motor Arm Right: (0) no drift 6a. Motor Leg Left: (0) no drift 6b. Motor Leg Right: (0) no drift 7. Limb Ataxia: (0) absent 8. Sensory: (0) normal 9. Best Language: (1) mild/moderate aphasia 10. Dysarthria: (1) mild/moderate dysarthria 11. Extinction/Inattention: (0) no abnormality - Thrombolytic Inclusion/Exclusion Thrombolytic Contraindications: Rapidly Improving s/s - Medical Decision Making I did review the imaging and report no acute findings. The patient's presentation is consistent with chest pain and MS exacerbation. Not at this time consistent with a stroke. I did discuss case with the patient and her as well as Dr. Paredes, the patient will be admitted with consultation by cardiology and neurology. He neural findings are chronic in this patient. - Radiology Data Radiology results: report reviewed (No acute findings on imaging.), image reviewed - EKG Data -: EKG Interpreted by Me EKG shows normal: sinus rhythm (Sinus rhythm of 57. Interval 172 QRS duration 78 QT since QTC 460/404 inferior changes no acute ST-T wave changes some artifact is present.) Past Medical History Past Medical History: Chest Pain / Angina, CVA/TIA, Fibromyalgia, Musculoskeletal Disorder, Neurologic Disorder, Osteoarthritis (OA), Pulmonary Embolus (PE), Sleep Apnea/CPAP/BIPAP, Thyroid Disorder Additional Past Medical History / Comment(s): MULTIPLE SCLEROSIS, HX OF CVA 2006 WITH R SIDED WEAKNESS AND DYSPHASIA-MUCH IMPROVED, MIGRAINES, SLEEP APNEA( HAS C-PAP MACHINE BUT DOES NOT USE) ABD HERNIA,CHRONIC PAIN ESPECIALLY ON R SIDE OF BODY AND LOW BACK . PAINFUL FOR HER TO LIE FLAT. HX OF NOSEBLEED JUL 2014 AND RECEIVED PLASMA TRANSFUSION. takes pills with applesauce. History of Any Multi-Drug Resistant Organisms: VRE Date of last positivie culture/infection: 10/24/09 confirmed with infectious disease nurse on 08/18/16. MDRO Source:: URINE Past Surgical History: Appendectomy, Cholecystectomy, Hysterectomy Additional Past Surgical History / Comment(s): Incisional hernia repair, laparoscopic lysis of adhesions in 1987, ganglion cyst removal of the left wrist , patent foramen ovale patch in 2006, RF ablation for back pain. Past Anesthesia/Blood Transfusion Reactions: No Reported Reaction Past Psychological History: Depression Additional Psychological History / Comment(s): CELEXA. PT HAS DIFFICULTY W/ SPEECH BUT IS MUCH IMPROVED. HAS TO LOOK AT DIETARY MENU TO ORDER CAN'T DO IT BY PHONE. Pt resides with her spouse. She uses a cane to ambulate. She also has a walker. Spouse drives her to appointments. Spouse assists her with some ADLs when needed. Smoking Status: Never smoker Past Alcohol Use History: None Reported Past Drug Use History: None Reported Additional Drug Use History / Comment(s): Lives at home with her requires some assistance with ADLs at times - Past Family History Mother Family Medical History: Hypertension Additional Family Medical History / Comment(s): osteoporosis Father Family Medical History: Dementia Course Vital Signs 04/25/18 04/25/18 04/25/18 15:45 16:00 16:15 Temperature 97.6 F Pulse Rate 56 L 66 64 Respiratory 16 16 16 Rate Blood Pressure 103/59 122/69 121/70 O2 Sat by Pulse 97 98 97 Oximetry 04/25/18 04/25/18 04/25/18 16:24 16:30 16:45 Temperature Pulse Rate 57 L 78 Respiratory 12 16 Rate Blood Pressure 94/76 138/67 O2 Sat by Pulse 99 98 97 Oximetry 04/25/18 04/25/18 17:00 17:30 Temperature Pulse Rate 57 L 55 L Respiratory 18 20 Rate Blood Pressure 104/68 109/60 O2 Sat by Pulse 97 98 Oximetry - Reevaluation(s) Reevaluation #1: 04/25/18 16:54 Patient was demonstrating difficulty with speech with some expressive aphasia per her everything she is demonstrating thus far is normal for her. Disposition Clinical Impression: Chest pain, Multiple sclerosis exacerbation, Renal insufficiency syndrome Disposition: ADMITTED IP TO THIS [facility] Condition: Stable Referrals: Sarah Paredes MD [Primary Care Provider] - 1-2 days
[2018-04-25 16:37] LABS: Creatine Kinase MB 0.3 ng/mL (0.0-2.4); Troponin I <0.012 ng/mL (0.000-0.034)
--- NOTE | 2018-04-25 16:37 | CT ---
EXAMINATION TYPE: CT brain wo con for TPA DATE OF EXAM: 04/25/2018 COMPARISON: Prior head CT 04/04/2018 HISTORY: speech impairment CT DLP: 1567.8 mGycm Automated exposure control for dose reduction was used. Helical acquisition through the brain. FINDINGS: Chronic encephalomalacia seen on previous exam is again noted involving the temporal lobe, left front al parietal regions. Extra-axial phenomenon present in the left lateral ventricle. There is no hemorr glenis or hydrocephalus. Calvarium is intact. Some mild inflammatory change noted in the maxillary sinu ses. Orbits show symmetric appearance. IMPRESSION: NO ACUTE ABNORMALITY. CHRONIC ENCEPHALOMALACIA COMPATIBLE WITH PRIOR INFARCT. Sinus disease. Follow-u p as indicated.
--- NOTE | 2018-04-25 17:04 | CT ---
EXAMINATION TYPE: CT angio head neck DATE OF EXAM: 04/25/2018 HISTORY: Speech impairment COMPARISON: None CT DLP: 485 mGycm. Automated Exposure Control for Dose Reduction was Utilized. TECHNIQUE: CTA scan of the neck is performed with IV Contrast, patient injected with 65 mL of Isovue 370, axial images are obtained, coronal and sagittal reformatted images are reviewed. Three-D recons tructed images are created on an independent workstation and reviewed. FINDINGS: There is normal branching pattern of the great vessels on the aortic arch. There is no aortic arch an eurysm or dissection. There is bilateral arterial flow in the vertebral arteries which are fairly sym metric. There is arterial flow in the common internal and external carotid arteries bilaterally. [place] tid artery bifurcations are widely patent. There is no evidence of carotid artery aneurysm or dissect ion. There is arterial flow in the vertebrobasilar artery system. There is arterial flow in the anterior m iddle and posterior cerebral arteries bilaterally. There is old left temporal lobe infarct. There is normal contrast opacification of the venous sinuses. There is no evidence of intracranial aneurysm or stenosis. There is no evidence of neovascularity. IMPRESSION: Negative CT angiogram of the neck. Negative CT angiogram of the brain. Old left temporal lobe cortical infarct. This appears unchanged compared to 04/04/2018 CT scan.
[2018-04-25] MEDS ORDERED: NALOXONE 0.4 MG/ML 1 ML VIAL IV PRN (19:06)
[2018-04-25] MEDS ORDERED: HYDROcodone/APAP 5-325MG 1 EACH TAB PO PRN (19:09)
[2018-04-25] MEDS ORDERED: NITROGLYCERIN SL TABS 0.4 MG TAB SUBLINGUAL PRN (19:09)
[2018-04-25] MEDS ORDERED: methylPREDNISolone SOD SUCCI 125 MG/2 ML VIAL IV STA (19:13)
[2018-04-25] MEDS ORDERED: methylPREDNISolone SOD SUCCI 250 MG in SODIUM CHLORIDE 0.9% 100 ML IVPB STA (19:24)
[2018-04-25] MEDS: SODIUM CHLORIDE 0.9% 1,000 ML IV SCH (19:53)
[2018-04-25 21:53] LABS: Glucose,Whole Blood 165 mg/dL (75-99)
[2018-04-25 22:00] LABS: Creatine Kinase 32 U/L (30-135)
[2018-04-25 22:12] LABS: Creatine Kinase MB 0.3 ng/mL (0.0-2.4); Troponin I <0.012 ng/mL (0.000-0.034)
[2018-04-25 22:17] VITALS: BMI 38.2
[2018-04-25] MEDS ORDERED: ALBUTEROL NEBULIZED 2.5 MG/3 ML INHALATION PRN (22:20)
[2018-04-25] MEDS: CITALOPRAM HYDROBROMIDE 20 MG TAB PO SCH (22:26)
[2018-04-25] MEDS: PRAVASTATIN SODIUM 20 MG TAB PO SCH (22:26)
[2018-04-25] MEDS: PREGABALIN 100 MG CAP PO SCH (22:26)
[2018-04-25] MEDS: Dimethyl Fumarate [Tecfidera] 240 MG PO SCH (22:27)
[2018-04-25] MEDS: methylPREDNISolone SOD SUCCI 250 MG in SODIUM CHLORIDE 0.9% 100 ML IVPB SCH (23:58)
[2018-04-26] MEDS ORDERED: methylPREDNISolone SOD SUCCI 125 MG/2 ML VIAL IV SCH
[2018-04-26 03:51] LABS: Basophils % (A) 0 %; Eosinophils % (A) 1 %; HCT 39.5 % (34.0-46.0); Lymphocytes # (A) 0.4 k/uL (1.0-4.8); Lymphocytes % (A) 12 %; MCH 30.2 pg (25.0-35.0); MCHC 32.9 g/dL (31.0-37.0); MCV 91.7 fL (80.0-100.0); Mean Platelet Volume 9.5; Monocytes # (A) 0.1 k/uL (0-1.0); Monocytes % (A) 2 %; Neutrophils # (A) 2.7 k/uL (1.3-7.7); Neutrophils % (A) 85 %; Platelet Count 111 k/uL (150-450); RDW 14.4 % (11.5-15.5); WBC 3.1 k/uL (3.8-10.6)
[2018-04-26 04:06] LABS: Creatine Kinase 23 U/L (30-135)
[2018-04-26 04:19] LABS: Creatine Kinase MB 0.3 ng/mL (0.0-2.4); Troponin I <0.012 ng/mL (0.000-0.034)
[2018-04-26] MEDS: LEVOTHYROXINE 50 MCG TAB PO SCH (04:55)
[2018-04-26] MEDS: methylPREDNISolone SOD SUCCI 250 MG in SODIUM CHLORIDE 0.9% 100 ML IVPB SCH ×3 (05:58→17:39)
[2018-04-26] MEDS: PANTOPRAZOLE 40 MG TABLET PO SCH (05:59)
[2018-04-26 06:41] LABS: Glucose,Whole Blood 259 mg/dL (75-99)
[2018-04-26] MEDS: FLUTICASONE 50MCG/SPRAY NASAL 16GM EA NOSTRIL SCH (08:40)
[2018-04-26] MEDS: CHOLECALCIFEROL 1,000 UNIT TAB PO SCH (08:41)
[2018-04-26] MEDS: POTASSIUM CHLORIDE ER 20 MEQ TAB.ER PO SCH ×2 (08:41→17:31)
[2018-04-26] MEDS: PREGABALIN 100 MG CAP PO SCH ×3 (08:41→20:49)
[2018-04-26] MEDS: FUROSEMIDE 40 MG TAB PO SCH ×2 (08:41→17:32)
[2018-04-26] MEDS: FOLIC ACID 1 MG TAB PO SCH (08:42)
[2018-04-26] MEDS: ASPIRIN 81 MG PO SCH (08:42)
[2018-04-26] MEDS: SODIUM CHLORIDE 0.9% 1,000 ML IV SCH ×2 (08:42→21:05)
[2018-04-26] MEDS: METHYLPHENIDATE HCL 10 MG TAB PO SCH (08:42)
[2018-04-26] MEDS: Dimethyl Fumarate [Tecfidera] 240 MG PO SCH ×2 (08:44→21:00)
[2018-04-26] MEDS: INSULIN ASPART 100 UNIT/ML 1 ML 10 ML VIAL SQ SCH ×2 (08:46→17:38)
--- NOTE | 2018-04-26 08:47 | P.CRDCN ---
History of Present Illness History of present illness: Mrs. 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 She follows with Dr. Dowling in the office. We have been asked to see her in consultation for chest pain. She is seen and examined sleeping in bed. She is somewhat lethargic and is in quite a bit of pain throughout her body. She is having a hard time explaining exactly what brought her to the hospital. ED notes reviewed and states she was sent from her PCP office for slurred speech and right sided weakness. CT of her brain and CT angio neck were obtained and were negative for acute stroke with evidence of old infarct. She does have some speech deficits with what seems to be expressive aphasia, however she is tired as well. Per the ER notes expressive aphasia is normal for her. She complains of pain and tenderness while examining her. She denies shortness of breath, dizziness or palpitations. EKG reveals sinus bradycardia heart rate of [address] or T wave abnormalities noted. Chest x-ray is negative for an acute cardiopulmonary process. Laboratory data reviewed, WBC 3.1, hemoglobin 13, platelets 111, INR 1.6, sodium 139, potassium 4.1, creatinine 1.13, cardiac enzymes negative 3. Current cardiac medications include aspirin 81 mg daily, Lasix 40 mg twice a day , pravastatin 20 mg daily and Coumadin 7.5 mg daily. Most recent echocardiogram August 2016 shows preserved left ventricular systolic function with ejection fraction 55-60%. At the time of my exam: CONSTITUTIONAL: Denies fever. Denies chills. EYES: Denies blurred vision. Denies vision changes. Denies eye pain. EARS, NOSE, MOUTH & THROAT: Denies headache. Denies sore throat. Denies ear pain. CARDIOVASCULAR: Denies chest pain. Denies shortness of breath. Denies orthopnea. Denies PND. Denies palpitations. RESPIRATORY: Denies cough. GASTROINTESTINAL: Denies abdominal pain. Denies diarrhea. Denies constipation. Denies nausea. Denies vomiting. MUSCULOSKELETAL: Complains of pain and tenderness all over her body. INTEGUMENTARY: Denies pruitis. Denies rash. NEUROLOGIC: Denies numbness. Denies tingling. Denies weakness. PSYCHIATRIC: Denies anxiety. Denies depression. ENDOCRINE: Denies fatigue. Denies weight change. Denies polydipsia. Denies polyurina. GENITOURINARY: Denies burning, hematuria or urgency with micturation. HEMATOLOGIC: Denies history of anemia. Denies bleeding. Blood pressure 109/61 heart rate 64 afebrile maintaining oxygen saturation on room air GENERAL: This is a 62-year-old female in no apparent distress at the time of my examination. Obese. HEENT: Head is atraumatic, normocephalic. Pupils are equal, round. Sclerae anicteric. Conjunctivae are clear. Mucous membranes of the mouth are moist. Neck is supple. There is no jugular venous distention. No carotid bruit is heard. LUNGS: Clear to auscultation no wheezes, rales or rhonchi. No chest wall tenderness is noted on palpation or with deep breathing. HEART: Regular rate and rhythm without murmurs, rubs or gallops. S1 and S2 heard. ABDOMEN: Soft, nontender. Bowel sounds are heard. No organomegaly noted. EXTREMITIES: No evidence of peripheral edema and no calf tenderness noted. VASCULAR: Radial and dorsalis pedis pulses palpated, no evidence of clubbing. NEUROLOGIC: Patient is awake, alert and oriented x3. ASSESSMENT Chest pain, atypical. An acute coronary event has been ruled out with no EKG evidence of ischemia and negative cardiac enzymes. Dyslipidemia History of MS with possible exacerbation History of CVA with residual right sided weakness PLAN An acute coronary event has been ruled out with no EKG evidence of ischemia and negative cardiac enzymes. Her symptoms of generalized pain and tenderness throughout her body or not consistent with angina or an acute coronary syndrome. Ongoing medical management. Follow-up with Dr. Dowling upon discharge. Thank you kindly for this consultation. Nurse Practitioner note has been reviewed, I agree with a documented findings and plan of care. Patient was seen and examined. Past Medical History Past Medical History: Chest Pain / Angina, CVA/TIA, Fibromyalgia, Musculoskeletal Disorder, Neurologic Disorder, Osteoarthritis (OA), Pulmonary Embolus (PE), Sleep Apnea/CPAP/BIPAP, Thyroid Disorder Additional Past Medical History / Comment(s): MULTIPLE SCLEROSIS, HX OF CVA 2006 WITH R SIDED WEAKNESS AND DYSPHASIA-MUCH IMPROVED, MIGRAINES, SLEEP APNEA( HAS C-PAP MACHINE BUT DOES NOT USE) ABD HERNIA,CHRONIC PAIN ESPECIALLY ON R SIDE OF BODY AND LOW BACK . PAINFUL FOR HER TO LIE FLAT. HX OF NOSEBLEED JUL 2014 AND RECEIVED PLASMA TRANSFUSION. takes pills with applesauce. History of Any Multi-Drug Resistant Organisms: VRE Date of last positivie culture/infection: 10/24/09 confirmed with infectious disease nurse on 08/18/16. MDRO Source:: URINE Past Surgical History: Appendectomy, Cholecystectomy, Hysterectomy Additional Past Surgical History / Comment(s): Incisional hernia repair, laparoscopic lysis of adhesions in 1987, ganglion cyst removal of the left wrist , patent foramen ovale patch in 2006, RF ablation for back pain. Past Anesthesia/Blood Transfusion Reactions: No Reported Reaction Past Psychological History: Depression Additional Psychological History / Comment(s): CELEXA. PT HAS DIFFICULTY W/ SPEECH BUT IS MUCH IMPROVED. HAS TO LOOK AT DIETARY MENU TO ORDER CAN'T DO IT BY PHONE. Pt resides with her spouse. She uses a cane to ambulate. She also has a walker. Spouse drives her to appointments. Spouse assists her with some ADLs when needed. Smoking Status: Never smoker Past Alcohol Use History: None Reported Past Drug Use History: None Reported Additional Drug Use History / Comment(s): Lives at home with her requires some assistance with ADLs at times - Past Family History Mother Family Medical History: Hypertension Additional Family Medical History / Comment(s): osteoporosis Father Family Medical History: Dementia Medications and Allergies Home Medications Medication Instructions Recorded Confirmed Type Aspirin 81 mg PO DAILY@0900 11/08/13 04/25/18 History Baclofen [Lioresal] 10 mg PO DAILY@169911/08/13 04/25/18 History Citalopram Hydrobromide [CeleXA] 40 mg PO HS@2100 11/08/13 04/25/18 History Ferrous Sulfate [Feosol] 325 mg PO DAILY@169911/08/13 04/25/18 History Fexofenadine HCl [Mimi Allergy] 180 mg PO DAILY@169911/08/13 04/25/18 History Furosemide [Lasix] 40 mg PO BID@0900,1700 11/08/13 04/25/18 History Montelukast [Singulair] 10 mg PO DAILY@169911/08/13 04/25/18 History Nitroglycerin Sl Tabs [Nitrostat] 0.4 mg SUBLINGUAL Q5M PRN 11/08/13 04/25/18 History Pantoprazole Sodium [Protonix] 40 mg PO DAILY@0600 11/08/13 04/25/18 History Potassium Chloride 20 meq PO BID@0900,1700 11/08/13 04/25/18 History Cholecalciferol [Vitamin D3] 2,000 unit PO DAILY@0911/18/15 04/25/18 History Fluticasone Nasal [place] [Flonase 1 spray EA NOSTRIL DAILY@0911/18/15 History Nasal [place]] Methylphenidate HCl [Ritalin] 20 mg PO QAM@89911/18/15 04/25/18 History Pravastatin Sodium [Pravachol] 20 mg PO HS@209911/18/15 04/25/18 History fentaNYL [Fentanyl] 25 mcg TRANSDERM Q72H 11/18/15 04/25/18 History Pregabalin [Lyrica] 100 mg PO TID@0900,1700,209907/13/16 04/25/18 History Folic Acid 0.4 mg PO DAILY@0900 08/18/16 04/25/18 History Biotin 10,000 mcg PO DAILY@0907/06/17 04/25/18 History Levothyroxine Sodium [Synthroid] 50 mcg PO DAILY@0611/20/17 04/25/18 History Dimethyl Fumarate [Tecfidera] 240 mg PO BID@04/04/18 04/25/18 History HYDROcodone/APAP 5-325MG [[place] 1 tab PO DAILY PRN 04/04/18 04/25/18 History 5-325] Warfarin [Coumadin] 7.5 mg PO DAILY@1700 04/04/18 04/25/18 History Albuterol Inhaler [Ventolin Hfa 1 - 2 puff INHALATION RT-Q6H PRN 04/25/18 History Inhaler] Allergies Allergy/AdvReac Type Severity Reaction Status Date / Time adhesive Allergy SKIN Verified 04/25/18 16:40 PEELING Physical Exam Vitals: Vital Signs Temp Pulse Pulse Resp BP BP BP 04/26/18 08:25 66 04/26/18 08:15 66 04/26/18 08:00 64 18 04/26/18 07:49 97.9 F 64 18 109/61 04/26/18 04:00 16 04/26/18 03:16 97.5 F L 64 16 104/58 04/26/18 00:00 16 04/25/18 23:39 98.2 F 64 16 98/58 04/25/18 20:29 97.4 F L 60 16 106/66 04/25/18 20:00 16 04/25/18 19:55 58 L 18 115/64 04/25/18 19:30 57 L 16 106/55 04/25/18 19:00 57 L 15 109/60 04/25/18 18:30 57 L 16 117/62 04/25/18 18:00 21 111/61 04/25/18 17:30 55 L 20 109/60 04/25/18 17:00 57 L 18 104/68 04/25/18 16:45 78 16 138/67 04/25/18 16:30 57 L 12 94/76 04/25/18 16:24 04/25/18 16:15 64 16 121/70 04/25/18 16:00 66 16 122/69 04/25/18 15:45 97.6 F 56 L 16 103/59 Pulse Ox 04/26/18 08:25 04/26/18 08:15 04/26/18 08:00 04/26/18 07:49 95 04/26/18 04:00 04/26/18 03:16 93 L 04/26/18 00:00 04/25/18 23:39 94 L 04/25/18 20:29 99 04/25/18 20:00 04/25/18 19:55 100 04/25/18 19:30 100 04/25/18 19:00 99 04/25/18 18:30 99 04/25/18 18:00 100 04/25/18 17:30 98 04/25/18 17:00 97 04/25/18 16:45 97 04/25/18 16:30 98 04/25/18 16:24 99 04/25/18 16:15 97 04/25/18 16:00 98 04/25/18 15:45 97 Intake and Output 04/25/18 04/26/18 04/26/18 22:59 06:59 14:59 Other: Voiding Method Toilet Toilet Toilet Diaper Diaper Diaper # Voids 2 2 Weight 104.326 kg Results 04/26/18 03:36 04/25/18 15:48 Cardiac Enzymes 04/25/18 04/25/18 04/25/18 Range/Units 15:48 15:48 21:22 AST 24 (14-36) U/L CK-MB (CK-2) 0.3 0.3 (0.0-2.4) ng/mL Troponin I <0.012 <0.012 (0.000-0.034) ng/mL 04/26/18 Range/Units 03:36 AST (14-36) U/L CK-MB (CK-2) 0.3 (0.0-2.4) ng/mL Troponin I <0.012 (0.000-0.034) ng/mL Coagulation 04/25/18 Range/Units 15:48 PT 14.4 H (9.0-12.0) sec APTT 27.2 (22.0-30.0) sec CBC 04/25/18 04/26/18 Range/Units 15:48 03:36 WBC 3.0 L 3.1 L (3.8-10.6) k/uL RBC 4.40 4.30 (3.80-5.40) m/uL Hgb 13.3 13.0 (11.4-16.0) gm/dL Hct 39.3 39.5 (34.0-46.0) % Plt Count 108 L 111 L (150-450) k/uL Comprehensive Metabolic Panel 04/25/18 Range/Units 15:48 Sodium 139 (137-145) mmol/L Potassium 4.1 (3.5-5.1) mmol/L Chloride 103 (98-107) mmol/L Carbon Dioxide 30 (22-30) mmol/L BUN 25 H (7-17) mg/dL Creatinine 1.13 H (0.52-1.04) mg/dL Glucose 105 H (74-99) mg/dL Calcium 9.5 (8.4-10.2) mg/dL AST 24 (14-36) U/L ALT 34 (9-52) U/L Alkaline Phosphatase 69 (38-126) U/L Total Protein 6.3 (6.3-8.2) g/dL Albumin 3.9 (3.5-5.0) g/dL Current Medications Generic Name Dose Route Start Last Admin Trade Name Freq PRN Reason Stop Dose Admin Hydrocodone Bitart/Acetaminophen 1 each 04/25/18 19:09 [place]isher 5-325 PO DAILY PRN Pain Albuterol Sulfate 2.5 mg 04/25/18 22:20 04/26/18 08:14 Ventolin Nebulized INHALATION 2.5 mg RT-Q6H PRN Administration Shortness Of Breath Aspirin 81 mg 04/26/18 09:00 Aspirin PO DAILY@0900 [facility] Baclofen 10 mg 04/26/18 17:00 Lioresal PO DAILY@1700 [facility] Cholecalciferol 2,000 unit 04/26/18 09:00 Vitamin D3 PO DAILY@0900 [facility] Citalopram Hydrobromide 40 mg 04/25/18 21:00 04/25/18 22:26 Celexa PO 40 mg HS@2100 [facility] Administration Fentanyl 1 patch 04/27/18 09:00 Duragesic 25mcg/Hr Patch TRANSDERM Q72H [facility] Ferrous Sulfate 325 mg 04/26/18 17:00 Feosol PO DAILY@1700 [facility] Fluticasone Propionate 1 spray 04/26/18 09:00 Flonase Nasal Mutual EA NOSTRIL DAILY@0900 [facility] Folic Acid 1 mg 04/26/18 09:00 Folic Acid PO DAILY@0900 [facility] Furosemide 40 mg 04/26/18 09:00 Lasix PO BID@0900,1700 [facility] Sodium Chloride 1,000 mls @ 80 mls/hr 04/25/18 19:15 04/25/18 19:53 Saline 0.9% IV 80 mls/hr .[id number] [facility] Administration Methylprednisolone Sodium 104 mls @ 100 mls/hr 04/26/18 00:00 04/26/18 05:58 Succinate 250 mg/ Sodium IVPB 100 mls/hr Chloride Q6HR [facility] Administration Insulin Aspart 0 unit 04/26/18 07:30 Novolog SQ ACHS [facility] Protocol Levothyroxine Sodium 50 mcg 04/26/18 06:00 04/26/18 04:55 Synthroid PO Not Given DAILY@0600 [facility] Loratadine 10 mg 04/26/18 17:00 Claritin PO DAILY@1700 [facility] Methylphenidate HCl 20 mg 04/26/18 09:00 Ritalin PO QAM@0900 [facility] Montelukast Sodium 10 mg 04/26/18 17:00 Singulair PO DAILY@1700 [facility] Naloxone HCl 0.2 mg 04/25/18 19:06 Narcan IV Q2M PRN Opioid Reversal Nitroglycerin 0.4 mg 04/25/18 19:09 Nitrostat SUBLINGUAL Q5M PRN Chest Pain Dimethyl Fumarate [ 240 mg 04/25/18 21:00 04/25/18 22:27 Tecfidera] 240 Mg PO Not Given BID@09,21 [facility] Pantoprazole Sodium 40 mg 04/26/18 06:00 04/26/18 05:59 Protonix PO Not Given DAILY@0600 [facility] Potassium Chloride 20 meq 04/26/18 09:00 K-Dur 20 PO BID@0900,1700 [facility] Pravastatin Sodium 20 mg 04/25/18 21:00 04/25/18 22:26 Pravachol PO 20 mg HS@2100 [facility] Administration Pregabalin 100 mg 04/25/18 21:00 04/25/18 22:26 Lyrica PO 100 mg TID@0900,1700,2100 [facility] Administration Warfarin Sodium 7.5 mg 04/26/18 17:00 Coumadin PO DAILY@1700 [facility] Intake and Output 04/25/18 04/26/18 04/26/18 22:59 06:59 14:59 Other: Voiding Method Toilet Toilet Toilet Diaper Diaper Diaper # Voids 2 2 Weight 104.326 kg 04/26/18 03:36 04/25/18 15:48
[2018-04-26] MEDS ORDERED: NON-FORMULARY DRUG (Biotin [Biotin] 10,000 MCG) PO SCH (09:00)
[2018-04-26 09:56] LABS: INR 1.4 (<1.2); Prothrombin Time 12.8 sec (9.0-12.0)
[2018-04-26 10:10] LABS: Calcium 9.7 mg/dL (8.4-10.2); Potassium 3.8 mmol/L (3.5-5.1); Total Bilirubin 0.6 mg/dL (0.2-1.3); Total Protein 6.3 g/dL (6.3-8.2)
--- NOTE | 2018-04-26 12:10 | P.HPIM ---
History of Present Illness H&P Date: 04/26/18 Chief Complaint: chest pain This is a 62-year-old female with a known past medical history of MS with multiple exacerbations requiring hospitalization, DVT and PE, hypothyroidism, CVA that affected her right side as well as expressive aphasia. Also has a history of sleep apnea, hyperlipidemia, fibromyalgia and depression. Difficult to obtain history from patient due to her expressive aphasia. But apparently she had some chest pain. In the center of her chest. This started yesterday. She went to see Dr. Paredes in the office and had been complaining of chest pain and also was very lethargic. Patient's was informed to bring her to the ER for further evaluation. Patient has been seen by cardiology there is no evidence of acute coronary syndrome. EKG had shown sinus bradycardia heart rate 57 . troponins are negative. Computed tomography scan of the brain had shown no acute changes it did show chronic encephalomalacia compatible with prior infarct. CTA of the head and neck was negative. Patient is also complaining of right leg pain. There are bruises noted along that right leg that are greenish and yellowish in color. She does report falling. Patient also has been started on IV Solu-Medrol 250 mg every 6 hours for possible MS exacerbation. Neurology has been consulted. Review of Systems Please refer to HPI otherwise unremarkable Past Medical History Past Medical History: Chest Pain / Angina, CVA/TIA, Fibromyalgia, Musculoskeletal Disorder, Neurologic Disorder, Osteoarthritis (OA), Pulmonary Embolus (PE), Sleep Apnea/CPAP/BIPAP, Thyroid Disorder Additional Past Medical History / Comment(s): MULTIPLE SCLEROSIS, HX OF CVA 2006 WITH R SIDED WEAKNESS AND DYSPHASIA-MUCH IMPROVED, MIGRAINES, SLEEP APNEA( HAS C-PAP MACHINE BUT DOES NOT USE) ABD HERNIA,CHRONIC PAIN ESPECIALLY ON R SIDE OF BODY AND LOW BACK . PAINFUL FOR HER TO LIE FLAT. HX OF NOSEBLEED JUL 2014 AND RECEIVED PLASMA TRANSFUSION. takes pills with applesauce. History of Any Multi-Drug Resistant Organisms: VRE Date of last positivie culture/infection: 10/24/09 confirmed with infectious disease nurse on 08/18/16. MDRO Source:: URINE Past Surgical History: Appendectomy, Cholecystectomy, Hysterectomy Additional Past Surgical History / Comment(s): Incisional hernia repair, laparoscopic lysis of adhesions in 1987, ganglion cyst removal of the left wrist , patent foramen ovale patch in 2007, RF ablation for back pain. Past Anesthesia/Blood Transfusion Reactions: No Reported Reaction Past Psychological History: Depression Additional Psychological History / Comment(s): CELEXA. PT HAS DIFFICULTY W/ SPEECH BUT IS MUCH IMPROVED. HAS TO LOOK AT DIETARY MENU TO ORDER CAN'T DO IT BY PHONE. Pt resides with her spouse. She uses a cane to ambulate. She also has a walker. Spouse drives her to appointments. Spouse assists her with some ADLs when needed. Smoking Status: Never smoker Past Alcohol Use History: None Reported Past Drug Use History: None Reported Additional Drug Use History / Comment(s): Lives at home with her requires some assistance with ADLs at times - Past Family History Mother Family Medical History: Hypertension Additional Family Medical History / Comment(s): osteoporosis Father Family Medical History: Dementia Medications and Allergies Home Medications Medication Instructions Recorded Confirmed Type Aspirin 81 mg PO DAILY@0900 11/08/13 04/25/18 History Baclofen [Lioresal] 10 mg PO DAILY@169911/08/13 04/25/18 History Citalopram Hydrobromide [CeleXA] 40 mg PO HS@2100 11/08/13 04/25/18 History Ferrous Sulfate [Feosol] 325 mg PO DAILY@169911/08/13 04/25/18 History Fexofenadine HCl [Mimi Allergy] 180 mg PO DAILY@169911/08/13 04/25/18 History Furosemide [Lasix] 40 mg PO BID@0900,169911/08/13 04/25/18 History Montelukast [Singulair] 10 mg PO DAILY@169911/08/13 04/25/18 History Nitroglycerin Sl Tabs [Nitrostat] 0.4 mg SUBLINGUAL Q5M PRN 11/08/13 04/25/18 History Pantoprazole Sodium [Protonix] 40 mg PO DAILY@0611/08/13 04/25/18 History Potassium Chloride 20 meq PO BID@0900,0 11/08/13 04/25/18 History Cholecalciferol [Vitamin D3] 2,000 unit PO DAILY@89911/18/15 04/25/18 History Fluticasone Nasal [place] [Flonase 1 spray EA NOSTRIL DAILY@0911/18/15 History Nasal [place]] Methylphenidate HCl [Ritalin] 20 mg PO QAM@89911/18/15 04/25/18 History Pravastatin Sodium [Pravachol] 20 mg PO HS@209911/18/15 04/25/18 History fentaNYL [Fentanyl] 25 mcg TRANSDERM Q72H 11/18/15 04/25/18 History Pregabalin [Lyrica] 100 mg PO TID@0900,1700,209907/13/16 04/25/18 History Folic Acid 0.4 mg PO DAILY@89908/18/16 04/25/18 History Biotin 10,000 mcg PO DAILY@89907/06/17 04/25/18 History Levothyroxine Sodium [Synthroid] 50 mcg PO DAILY@59911/20/17 04/25/18 History Dimethyl Fumarate [Tecfidera] 240 mg PO BID@04/04/18 04/25/18 History HYDROcodone/APAP 5-325MG [[place] 1 tab PO DAILY PRN 04/04/18 04/25/18 History 5-325] Warfarin [Coumadin] 7.5 mg PO DAILY@1700 04/04/18 04/25/18 History Albuterol Inhaler [Ventolin Hfa 1 - 2 puff INHALATION RT-Q6H PRN 04/25/18 History Inhaler] Allergies Allergy/AdvReac Type Severity Reaction Status Date / Time adhesive Allergy SKIN Verified 04/25/18 16:40 PEELING Physical Exam Vitals: Vital Signs Temp Pulse Pulse Resp BP BP BP 04/26/18 08:25 66 04/26/18 08:15 66 04/26/18 08:00 64 18 04/26/18 07:49 97.9 F 64 18 109/61 04/26/18 04:00 16 04/26/18 03:16 97.5 F L 64 16 104/58 04/26/18 00:00 16 04/25/18 23:39 98.2 F 64 16 98/58 04/25/18 20:29 97.4 F L 60 16 106/66 04/25/18 20:00 16 04/25/18 19:55 58 L 18 115/64 10/24/18 19:30 57 L 16 106/55 04/25/18 19:00 57 L 15 109/60 04/25/18 18:30 57 L 16 117/62 04/25/18 18:00 21 111/61 04/25/18 17:30 55 L 20 109/60 04/25/18 17:00 57 L 18 104/68 04/25/18 16:45 78 16 138/67 04/25/18 16:30 57 L 12 94/76 04/25/18 16:24 04/25/18 16:15 64 16 121/70 04/25/18 16:00 66 16 122/69 04/25/18 15:45 97.6 F 56 L 16 103/59 Pulse Ox 04/26/18 08:25 04/26/18 08:15 04/26/18 08:00 04/26/18 07:49 95 04/26/18 04:00 04/26/18 03:16 93 L 04/26/18 00:00 04/25/18 23:39 94 L 04/25/18 20:29 99 04/25/18 20:00 04/25/18 19:55 100 04/25/18 19:30 100 04/25/18 19:00 99 04/25/18 18:30 99 04/25/18 18:00 100 04/25/18 17:30 98 04/25/18 17:00 97 04/25/18 16:45 97 04/25/18 16:30 98 04/25/18 16:24 99 04/25/18 16:15 97 04/25/18 16:00 98 04/25/18 15:45 97 Intake and Output 04/25/18 04/26/18 04/26/18 22:59 06:59 14:59 Other: Voiding Method Toilet Toilet Toilet Diaper Diaper Diaper # Voids 2 2 Weight 104.326 kg Head normocephalic Neck supple Lungs clear to auscultation bilaterally no wheezing or crackles Heart regular rate and rhythm S1-S2, no rub or gallop Abdomen is soft nontender nondistended positive bowel sounds no hepatosplenomegaly Extremities no edema. Right leg greenish yellowish bruising noted along the right tibia. Tenderness with palpation. Neuro patient is awake and alert. Expressive aphasia. Results CBC & Chem 7: 04/26/18 03:36 04/26/18 09:10 Labs: Abnormal Lab Results - Last 24 Hours (Table) 04/25/18 04/25/18 04/25/18 Range/Units 15:48 15:48 15:48 WBC 3.0 L (3.8-10.6) k/uL Plt Count 108 L (150-450) k/uL Lymphocytes # 0.4 L (1.0-4.8) k/uL PT (9.0-12.0) sec INR (<1.2) BUN 25 H (7-17) mg/dL Creatinine 1.13 H (0.52-1.04) mg/dL Glucose 105 H (74-99) mg/dL POC Glucose (mg/dL) 104 H (75-99) mg/dL Total Creatine Kinase (30-135) U/L HDL Cholesterol (40-60) mg/dL 04/25/18 04/25/18 04/25/18 Range/Units 15:48 15:48 21:39 WBC (3.8-10.6) k/uL Plt Count (150-450) k/uL Lymphocytes # (1.0-4.8) k/uL PT 14.4 H (9.0-12.0) sec INR 1.6 H (<1.2) BUN (7-17) mg/dL Creatinine (0.52-1.04) mg/dL Glucose (74-99) mg/dL POC Glucose (mg/dL) 165 H (75-99) mg/dL Total Creatine Kinase 29 L (30-135) U/L HDL Cholesterol (40-60) mg/dL 04/26/18 04/26/18 04/26/18 Range/Units 03:36 03:36 06:37 WBC 3.1 L (3.8-10.6) k/uL Plt Count 111 L (150-450) k/uL Lymphocytes # 0.4 L (1.0-4.8) k/uL PT (9.0-12.0) sec INR (<1.2) BUN (7-17) mg/dL Creatinine (0.52-1.04) mg/dL Glucose (74-99) mg/dL POC Glucose (mg/dL) 259 H (75-99) mg/dL Total Creatine Kinase 23 L (30-135) U/L HDL Cholesterol (40-60) mg/dL 04/26/18 04/26/18 Range/Units 09:10 09:10 WBC (3.8-10.6) k/uL Plt Count (150-450) k/uL Lymphocytes # (1.0-4.8) k/uL PT 12.8 H (9.0-12.0) sec INR 1.4 H (<1.2) BUN 20 H (7-17) mg/dL Creatinine (0.52-1.04) mg/dL Glucose 257 H (74-99) mg/dL POC Glucose (mg/dL) (75-99) mg/dL Total Creatine Kinase (30-135) U/L HDL Cholesterol 95 H (40-60) mg/dL Thrombosis Risk Factor Assmnt - Choose All That Apply Each Factor Represents 1 point: Obesity (BMI >25) Each Risk Factor Represents 2 Points: Age 61-74 years Each Risk Factor Represents 3 Points: History of DVT/PE Thrombosis Risk Factor Assessment Total Risk Factor Score: 6 Thrombosis Risk Factor Assessment Level: High Risk Assessment and Plan Assessment: 1. Chest pain: Atypical. Acute coronary event has been ruled out. EKG sinus bradycardia with a heart rate of 57. Cardiac enzymes are negative. Patient seen and evaluated by cardiology and has been cleared for discharge. 2. Possible multiple sclerosis exacerbation: Patient has been started on IV site medical 250 mg every 6 hours. Neurology consulted. Computed tomography scan of the brain showing no acute changes does show chronic encephalomalacia from a prior infarct. CTA of the head and neck were negative 3. Right leg pain with recent fall. Evidence of bruising. Check x-ray of right tibia fibula to rule out any fracture 4. History of PE and DVT anticoagulated with Coumadin INR subtherapeutic at 1.4. Patient scheduled for Coumadin 7.5 mg tonight. Check PT/INR in a.m. 5. History of CVA with known dysphagia and right-sided weakness 6. Hyperlipidemia 7. Fibromyalgia 8. Depression 9. Hypothyroidism 10. Thrombocytopenia: Platelets 111. Continue to monitor. Patient is supposed to have workup completed with hematology outpatient GI prophylaxis Protonix and DVT prophylaxis Coumadin Time with Patient: Greater than 30 (Greater than 60% of the total time spent in counseling and coordination of care.I performed an examination of the patient and discussed their management with the physician Client Professional. I have reviewed the Physician Client Professional's notes and agree with the documented findings and plan of care)
[2018-04-26 12:19] LABS: Glucose,Whole Blood 318 mg/dL (75-99)
--- NOTE | 2018-04-26 13:00 | XR ---
EXAMINATION TYPE: XR tibia fibula RT DATE OF EXAM: 04/26/2018 CLINICAL HISTORY: Right tibia and fibula pain with contusions after fall TECHNIQUE: Two views of the right leg are obtained. COMPARISON: None. FINDINGS: There is no acute fracture or dislocation seen in the right tibia or fibula. The right kn ee demonstrates tricompartmental arthropathy with marginal osteophytes and medial joint space narrowi ng. No radiopaque foreign body or subcutaneous emphysema. The overlying soft tissue appears unremark able. IMPRESSION: There is no acute fracture or dislocation seen in the right tibia or fibula. Moderate tr icompartmental arthropathy of the right knee
[2018-04-26] MEDS ORDERED: INSULIN REGULAR BOLUS (FROM DRIP BAG) IV ONE (14:30)
[2018-04-26 15:20] LABS: Hemoglobin A1C 6.2 % (4.0-6.0)
[2018-04-26] MEDS: ACETAMINOPHEN TAB 325 MG TAB PO PRN ×2 (15:28→21:02)
[2018-04-26] MEDS: INSULIN REGULAR 100 UNIT in SODIUM CHLORIDE 0.9% 100 ML IV SCH (15:36)
[2018-04-26] MEDS: ENOXAPARIN 100 MG/ML SYRINGE SQ SCH ×2 (15:40→21:00)
[2018-04-26 16:11] LABS: Glucose,Whole Blood 324 mg/dL (75-99)
[2018-04-26 16:34] LABS: Glucose,Whole Blood 298 mg/dL (75-99)
[2018-04-26 17:05] LABS: Glucose,Whole Blood 252 mg/dL (75-99)
[2018-04-26] MEDS: BACLOFEN 10 MG TAB PO SCH (17:31)
[2018-04-26] MEDS: FERROUS SULFATE 325 MG TAB PO SCH (17:31)
[2018-04-26] MEDS: MONTELUKAST 10 MG TAB PO SCH (17:31)
[2018-04-26] MEDS: LORATADINE 10 MG TAB PO SCH (17:31)
[2018-04-26] MEDS: WARFARIN 7.5 MG TAB PO SCH (17:32)
[2018-04-26 17:33] LABS: Glucose,Whole Blood 300 mg/dL (75-99)
[2018-04-26 18:07] LABS: Glucose,Whole Blood 236 mg/dL (75-99)
[2018-04-26 18:36] LABS: Glucose,Whole Blood 199 mg/dL (75-99)
--- NOTE | 2018-04-26 19:32 | P.CNNES ---
History of Present Illness Consult date: 04/26/18 Requesting physician: Sarah Paredes Reason for Consult: MS exacerbation History of Present Illness: Patient is a pleasant 62-year-old female who is being evaluated by the neurology service on 04/26/2018 per the request of Dr. Paredes for MS exacerbation. Patient is known to our practice and is being treated with Tecfidera for her multiple sclerosis. Patient is very aware and conscientious of what her recurrent exacerbations feel like. Patient does report a recent fall with trauma to her knees. Patient does have history of CVA with speech difficulty. Patient was having increased difficulty with speech and went to her physician's office. Physician noted right facial asymmetry and sent patient to [facility] for evaluation. Patient is on aspirin 81 mg in the home setting as well as Coumadin. Patient was having chest pain as well and cardiology's been consulted. CT of the brain was done on admission which showed no acute abnormality. CT did show chronic encephalomalacia compatible with prior infarct. CTA of the head and neck are negative. Old left temporal lobe cortical infarct noted and is unchanged as compared to 04/04/2018 computed tomography scan. Vital signs on admission showed temperature 97.7, pulse 66, respiratory rate 18, blood pressure 113/63, and O2 saturation 94% on room air. Labs on admission showed a subtherapeutic INR of 1.6, BUN 25, creatinine 1.13. At the time of my evaluation, patient's resting comfortably in bed, sitting up eating dinner and appears to be in no acute distress. Review of Systems REVIEW OF SYSTEMS: Otherwise unremarkable and noncontributory. Past Medical History Past Medical History: Chest Pain / Angina, CVA/TIA, Fibromyalgia, Musculoskeletal Disorder, Neurologic Disorder, Osteoarthritis (OA), Pulmonary Embolus (PE), Sleep Apnea/CPAP/BIPAP, Thyroid Disorder Additional Past Medical History / Comment(s): MULTIPLE SCLEROSIS, HX OF CVA 2006 WITH R SIDED WEAKNESS AND DYSPHASIA-MUCH IMPROVED, MIGRAINES, SLEEP APNEA( HAS C-PAP MACHINE BUT DOES NOT USE) ABD HERNIA,CHRONIC PAIN ESPECIALLY ON R SIDE OF BODY AND LOW BACK . PAINFUL FOR HER TO LIE FLAT. HX OF NOSEBLEED JUL 2014 AND RECEIVED PLASMA TRANSFUSION. takes pills with applesauce. History of Any Multi-Drug Resistant Organisms: VRE Date of last positivie culture/infection: 10/24/09 confirmed with infectious disease nurse on 08/18/16. MDRO Source:: URINE Past Surgical History: Appendectomy, Cholecystectomy, Hysterectomy Additional Past Surgical History / Comment(s): Incisional hernia repair, laparoscopic lysis of adhesions in 1987, ganglion cyst removal of the left wrist , patent foramen ovale patch in 2006, RF ablation for back pain. Past Anesthesia/Blood Transfusion Reactions: No Reported Reaction Past Psychological History: Depression Additional Psychological History / Comment(s): CELEXA. PT HAS DIFFICULTY W/ SPEECH BUT IS MUCH IMPROVED. HAS TO LOOK AT DIETARY MENU TO ORDER CAN'T DO IT BY PHONE. Pt resides with her spouse. She uses a cane to ambulate. She also has a walker. Spouse drives her to appointments. Spouse assists her with some ADLs when needed. Smoking Status: Never smoker Past Alcohol Use History: None Reported Past Drug Use History: None Reported Additional Drug Use History / Comment(s): Lives at home with her requires some assistance with ADLs at times - Past Family History Mother Family Medical History: Hypertension Additional Family Medical History / Comment(s): osteoporosis Father Family Medical History: Dementia Medications and Allergies Home Medications Medication Instructions Recorded Confirmed Type Aspirin 81 mg PO DAILY@0900 11/08/13 04/25/18 History Baclofen [Lioresal] 10 mg PO DAILY@169911/08/13 04/25/18 History Citalopram Hydrobromide [CeleXA] 40 mg PO HS@2100 11/08/13 04/25/18 History Ferrous Sulfate [Feosol] 325 mg PO DAILY@169911/08/13 04/25/18 History Fexofenadine HCl [Mimi Allergy] 180 mg PO DAILY@169911/08/13 04/25/18 History Furosemide [Lasix] 40 mg PO BID@0900,1700 11/08/13 04/25/18 History Montelukast [Singulair] 10 mg PO DAILY@169911/08/13 04/25/18 History Nitroglycerin Sl Tabs [Nitrostat] 0.4 mg SUBLINGUAL Q5M PRN 11/08/13 04/25/18 History Pantoprazole Sodium [Protonix] 40 mg PO DAILY@0600 11/08/13 04/25/18 History Potassium Chloride 20 meq PO BID@0900,1700 11/08/13 04/25/18 History Cholecalciferol [Vitamin D3] 2,000 unit PO DAILY@0900 11/18/15 04/25/18 History Fluticasone Nasal [place] [Flonase 1 spray EA NOSTRIL DAILY@0900 11/18/15 History Nasal [place]] Methylphenidate HCl [Ritalin] 20 mg PO QAM@0911/18/15 04/25/18 History Pravastatin Sodium [Pravachol] 20 mg PO HS@2100 11/18/15 04/25/18 History fentaNYL [Fentanyl] 25 mcg TRANSDERM Q72H 11/18/15 04/25/18 History Pregabalin [Lyrica] 100 mg PO TID@0900,1700,209907/13/16 04/25/18 History Folic Acid 0.4 mg PO DAILY@0900 08/18/16 04/25/18 History Biotin 10,000 mcg PO DAILY@0900 07/06/17 04/25/18 History Levothyroxine Sodium [Synthroid] 50 mcg PO DAILY@0600 11/20/17 04/25/18 History Dimethyl Fumarate [Tecfidera] 240 mg PO BID@04/04/18 04/25/18 History HYDROcodone/APAP 5-325MG [[place] 1 tab PO DAILY PRN 04/04/18 04/25/18 History 5-325] Warfarin [Coumadin] 7.5 mg PO DAILY@1700 04/04/18 04/25/18 History Albuterol Inhaler [Ventolin Hfa 1 - 2 puff INHALATION RT-Q6H PRN 04/25/18 History Inhaler] Allergies Allergy/AdvReac Type Severity Reaction Status Date / Time adhesive Allergy SKIN Verified 04/25/18 16:40 PEELING Physical Examination - Vital Signs Vital Signs: Vital Signs Temp Pulse Pulse Resp BP BP BP 04/26/18 16:00 97.7 F 73 18 119/73 04/26/18 12:00 73 18 04/26/18 11:30 97.7 F 92 18 113/63 04/26/18 08:25 66 04/26/18 08:15 66 04/26/18 08:00 64 18 04/26/18 07:49 97.9 F 64 18 109/61 04/26/18 04:00 16 04/26/18 03:16 97.5 F L 64 16 104/58 04/26/18 00:00 16 04/25/18 23:39 98.2 F 64 16 98/58 04/25/18 20:29 97.4 F L 60 16 106/66 04/25/18 20:00 16 04/25/18 19:55 58 L 18 115/64 04/25/18 19:30 57 L 16 106/55 Pulse Ox 04/26/18 16:00 93 L 04/26/18 12:00 04/26/18 11:30 94 L 04/26/18 08:25 04/26/18 08:15 04/26/18 08:00 04/26/18 07:49 95 04/26/18 04:00 04/26/18 03:16 93 L 04/26/18 00:00 04/25/18 23:39 94 L 04/25/18 20:29 99 04/25/18 20:00 04/25/18 19:55 100 04/25/18 19:30 100 Intake and Output 04/26/18 04/26/18 04/26/18 06:59 14:59 22:59 Intake Total 440 30.468 Balance 440 30.468 Intake: Intake, IV Titration 30.468 Amount Insulin Regular 100 unit 30.468 In Sodium Chloride 0.9% 100 ml @ Titrate IV .Q0M [facility] Rx#:[id number] Oral 240 Other 200 Other: Voiding Method Toilet Toilet Toilet Diaper Diaper Diaper # Voids 2 1 1 PHYSICAL EXAM: GENERAL APPEARANCE: Patient is a well-developed, female who appears to be in no acute distress. HEENT: Normocephalic, atraumatic, no facial asymmetry is seen. Neck is supple with no masses felt. CARDIOVASCULAR: Regular rate and rhythm. ABDOMEN: Nontender, nondistended. EXTREMITIES: Show no edema or clubbing. NEUROLOGICAL EXAM: Patient is awake, alert, and oriented 3. No dysarthria is noted. Language testing showed expressive aphasia with word substitution. Strength is 4/5 in bilateral lower extremities and 5-/5 in bilateral upper extremities. Sensory exam is normal in bilateral upper extremities. Allodynia is noted in bilateral distal lower extremities. No tremors or seizure-like activity is seen. No facial asymmetry is noticed on cranial nerve testing. Results - Laboratory Findings CBC and BMP: 04/26/18 03:36 04/26/18 09:10 Abnormal Lab Findings: Abnormal Labs 04/25/18 04/25/18 04/25/18 15:48 15:48 15:48 WBC 3.0 L Plt Count 108 L Lymphocytes # 0.4 L PT INR BUN 25 H Creatinine 1.13 H Glucose 105 H POC Glucose (mg/dL) 104 H Hemoglobin A1c Total Creatine Kinase HDL Cholesterol 04/25/18 04/25/18 04/25/18 15:48 15:48 21:39 WBC Plt Count Lymphocytes # PT 14.4 H INR 1.6 H BUN Creatinine Glucose POC Glucose (mg/dL) 165 H Hemoglobin A1c Total Creatine Kinase 29 L HDL Cholesterol 04/26/18 04/26/18 04/26/18 03:36 03:36 03:36 WBC 3.1 L Plt Count 111 L Lymphocytes # 0.4 L PT INR BUN Creatinine Glucose POC Glucose (mg/dL) Hemoglobin A1c 6.2 H Total Creatine Kinase 23 L HDL Cholesterol 04/26/18 04/26/18 04/26/18 06:37 09:10 09:10 WBC Plt Count Lymphocytes # PT 12.8 H INR 1.4 H BUN 20 H Creatinine Glucose 257 H POC Glucose (mg/dL) 259 H Hemoglobin A1c Total Creatine Kinase HDL Cholesterol 95 H 04/26/18 04/26/18 04/26/18 12:03 16:00 16:30 WBC Plt Count Lymphocytes # PT INR BUN Creatinine Glucose POC Glucose (mg/dL) 318 H 324 H 298 H Hemoglobin A1c Total Creatine Kinase HDL Cholesterol 04/26/18 04/26/18 04/26/18 17:00 17:31 18:04 WBC Plt Count Lymphocytes # PT INR BUN Creatinine Glucose POC Glucose (mg/dL) 252 H 300 H 236 H Hemoglobin A1c Total Creatine Kinase HDL Cholesterol 04/26/18 18:30 WBC Plt Count Lymphocytes # PT INR BUN Creatinine Glucose POC Glucose (mg/dL) 199 H Hemoglobin A1c Total Creatine Kinase HDL Cholesterol Assessment and Plan Plan: Impression: 1. Possible CVA 2. Acute multiple sclerosis exacerbation 3. Facial asymmetry, resolved 4. Lower extremity weakness 5. Lower extremity neuropathic pain 6. History of ischemic stroke 7. Residual expressive aphasia 8. Recent fall Recommendations: The patient's facial asymmetry has resolved. She does appear to be having an acute exacerbation of her multiple sclerosis. She has had similar episodes in the past that have responded well to IV Solu-Medrol. I will order an MRI of the brain, cervical spine, and thoracic spine. Continue IV Solu-Medrol at current dose. Continue Accu-Cheks and sliding scale insulin. In 48 hours, it is likely patient will be switched to oral steroid taper and can be discharged. I will order an EEG, carotid Dopplers, fasting lipid panel, and serum homocysteine level. I recommend consulting physical therapy to evaluate and treat. As for her history of stroke and pulmonary embolism, continue anticoagulation therapy with Coumadin. I recommend adjusting her Coumadin dose to his reach therapeutic INR. Continue neurological checks. I will continue to follow with you. Further recommendations to follow. Thank you for allowing me to participate in the care of your patient. If you have any questions, please feel free to contact me. I performed an examination of the patient and discussed the management with the RAIL[employer] SWITCHER. I have reviewed the RAIL[employer] SWITCHER notes and agree with the findings and plan of care.
[2018-04-26 20:30] LABS: Glucose,Whole Blood 154 mg/dL (75-99)
[2018-04-26] MEDS: CITALOPRAM HYDROBROMIDE 20 MG TAB PO SCH (20:49)
[2018-04-26] MEDS: PRAVASTATIN SODIUM 20 MG TAB PO SCH (21:00)
[2018-04-26 22:26] LABS: Glucose,Whole Blood 149 mg/dL (75-99)
[2018-04-27 00:02] LABS: Glucose,Whole Blood 117 mg/dL (75-99)
[2018-04-27] MEDS: INSULIN ASPART 100 UNIT/ML 1 ML 10 ML VIAL SQ SCH ×4 (00:22→17:55)
[2018-04-27] MEDS: methylPREDNISolone SOD SUCCI 250 MG in SODIUM CHLORIDE 0.9% 100 ML IVPB SCH ×5 (00:50→23:17)
[2018-04-27 01:04] LABS: Glucose,Whole Blood 147 mg/dL (75-99)
[2018-04-27] MEDS: ACETAMINOPHEN TAB 325 MG TAB PO PRN ×3 (02:09→20:32)
[2018-04-27 03:04] LABS: Glucose,Whole Blood 127 mg/dL (75-99)
[2018-04-27 04:28] LABS: Glucose,Whole Blood 169 mg/dL (75-99)
[2018-04-27 06:15] LABS: Glucose,Whole Blood 148 mg/dL (75-99)
[2018-04-27 08:15] LABS: INR 1.7 (<1.2); Prothrombin Time 15.7 sec (9.0-12.0)
[2018-04-27 08:18] LABS: Albumin 3.4 g/dL (3.5-5.0); Potassium 4.1 mmol/L (3.5-5.1); Total Bilirubin 0.3 mg/dL (0.2-1.3); Total Protein 5.6 g/dL (6.3-8.2)
[2018-04-27 08:22] LABS: Basophils % (A) 0 %; Eosinophils % (A) 0 %; HCT 35.4 % (34.0-46.0); Lymphocytes # (A) 0.6 k/uL (1.0-4.8); Lymphocytes % (A) 9 %; MCH 30.5 pg (25.0-35.0); MCHC 33.8 g/dL (31.0-37.0); MCV 90.3 fL (80.0-100.0); Mean Platelet Volume 10.8; Monocytes # (A) 0.2 k/uL (0-1.0); Monocytes % (A) 3 %; Neutrophils # (A) 5.9 k/uL (1.3-7.7); Neutrophils % (A) 88 %; Platelet Count 114 k/uL (150-450); RBC 3.92 m/uL (3.80-5.40); RDW 14.6 % (11.5-15.5); WBC 6.7 k/uL (3.8-10.6)
[2018-04-27] MEDS: PANTOPRAZOLE 40 MG TABLET PO SCH (08:26)
[2018-04-27] MEDS: LEVOTHYROXINE 50 MCG TAB PO SCH (08:26)
[2018-04-27] MEDS: Dimethyl Fumarate [Tecfidera] 240 MG PO SCH ×2 (08:33→20:20)
[2018-04-27 08:37] LABS: Glucose,Whole Blood 244 mg/dL (75-99)
[2018-04-27 09:04] LABS: Large Platelets Present; Poikilocytosis (M) Present
[2018-04-27 10:30] LABS: Glucose,Whole Blood 237 mg/dL (75-99)
[2018-04-27] MEDS: ASPIRIN 81 MG PO SCH (10:40)
[2018-04-27] MEDS: CHOLECALCIFEROL 1,000 UNIT TAB PO SCH (10:41)
[2018-04-27] MEDS: ENOXAPARIN 100 MG/ML SYRINGE SQ SCH ×2 (10:42→20:20)
[2018-04-27] MEDS: FLUTICASONE 50MCG/SPRAY NASAL 16GM EA NOSTRIL SCH (10:43)
[2018-04-27] MEDS: SODIUM CHLORIDE 0.9% 1,000 ML IV SCH (10:50)
[2018-04-27] MEDS: FUROSEMIDE 40 MG TAB PO SCH ×2 (10:54→16:39)
[2018-04-27] MEDS: FOLIC ACID 1 MG TAB PO SCH (10:54)
[2018-04-27] MEDS: METHYLPHENIDATE HCL 10 MG TAB PO SCH (10:54)
[2018-04-27] MEDS: POTASSIUM CHLORIDE ER 20 MEQ TAB.ER PO SCH ×2 (10:55→17:32)
[2018-04-27] MEDS: PREGABALIN 100 MG CAP PO SCH ×3 (10:55→20:23)
--- NOTE | 2018-04-27 11:28 | P.PN ---
Subjective Progress Note Date: 04/27/18 This is a 62-year-old female with a known past medical history of MS with multiple exacerbations requiring hospitalization, DVT and PE, hypothyroidism, CVA that affected her right side as well as expressive aphasia. Also has a history of sleep apnea, hyperlipidemia, fibromyalgia and depression. Difficult to obtain history from patient due to her expressive aphasia. But apparently she had some chest pain. In the center of her chest. This started yesterday. She went to see Dr. Paredes in the office and had been complaining of chest pain and also was very lethargic. Patient's was informed to bring her to the ER for further evaluation. Patient has been seen by cardiology there is no evidence of acute coronary syndrome. EKG had shown sinus bradycardia heart rate 57 . troponins are negative. Computed tomography scan of the brain had shown no acute changes it did show chronic encephalomalacia compatible with prior infarct. CTA of the head and neck was negative. Patient is also complaining of right leg pain. There are bruises noted along that right leg that are greenish and yellowish in color. She does report falling. Patient also has been started on IV Solu-Medrol 250 mg every 6 hours for possible MS exacerbation. Neurology has been consulted. On 04/27/2018 patient is currently resting comfortably bed. Patient does state that she is feeling slightly improved from yesterday. Patient remains on IV Solu-Medrol 250 every 6 hours. MRIs have been ordered per neurology services. This time patient denies chest pain or shortness of breath. Patient denies nausea vomiting or diarrhea. Patient denies any urinary burning or frequency. Objective - Vital Signs Vital signs: Vital Signs Temp 97.6 F 04/27/18 06:19 Pulse 57 L 04/27/18 06:19 Resp 20 04/27/18 06:19 BP 102/55 04/27/18 06:19 Pulse Ox 92 L 04/27/18 06:19 Intake & Output 04/26/18 04/27/18 04/27/18 18:59 06:59 18:59 Intake Total 470.468 586.243 14.178 Balance 470.468 586.243 14.178 Weight 104.326 kg Intake: Intake, IV Titration 30.468 266.243 14.178 Amount Insulin Regular 100 unit 30.468 26.243 14.178 In Sodium Chloride 0.9% 100 ml @ Titrate IV .Q0M [facility] Rx#:[id number] Sodium Chloride 0.9% 1, 240 000 ml @ 80 mls/hr IV . [id number] [facility] Rx#:[id number] Oral 240 320 Other 200 Other: Voiding Method Toilet Toilet Toilet Diaper Diaper Incontinent # Voids 1 1 1 - Exam Head normocephalic Neck supple Lungs clear to auscultation bilaterally no wheezing or crackles Heart regular rate and rhythm S1-S2, no rub or gallop Abdomen is soft nontender nondistended positive bowel sounds no hepatosplenomegaly Extremities no edema. Right leg greenish yellowish bruising noted along the right tibia. Tenderness with palpation. Neuro alert and orientated and alert. Expressive aphasia - Labs CBC & Chem 7: 04/27/18 06:55 04/27/18 06:55 Labs: Abnormal Lab Results - Last 24 Hours (Table) 04/26/18 04/26/18 04/26/18 Range/Units 03:36 12:03 16:00 Plt Count (150-450) k/uL Lymphocytes # (1.0-4.8) k/uL PT (9.0-12.0) sec INR (<1.2) Chloride (98-107) mmol/L BUN (7-17) mg/dL Glucose (74-99) mg/dL POC Glucose (mg/dL) 318 H 324 H (75-99) mg/dL Hemoglobin A1c 6.2 H (4.0-6.0) % Total Protein (6.3-8.2) g/dL Albumin (3.5-5.0) g/dL 04/26/18 04/26/18 04/26/18 Range/Units 16:30 17:00 17:31 Plt Count (150-450) k/uL Lymphocytes # (1.0-4.8) k/uL PT (9.0-12.0) sec INR (<1.2) Chloride (98-107) mmol/L BUN (7-17) mg/dL Glucose (74-99) mg/dL POC Glucose (mg/dL) 298 H 252 H 300 H (75-99) mg/dL Hemoglobin A1c (4.0-6.0) % Total Protein (6.3-8.2) g/dL Albumin (3.5-5.0) g/dL 04/26/18 04/26/18 04/26/18 Range/Units 18:04 18:30 20:26 Plt Count (150-450) k/uL Lymphocytes # (1.0-4.8) k/uL PT (9.0-12.0) sec INR (<1.2) Chloride (98-107) mmol/L BUN (7-17) mg/dL Glucose (74-99) mg/dL POC Glucose (mg/dL) 236 H 199 H 154 H (75-99) mg/dL Hemoglobin A1c (4.0-6.0) % Total Protein (6.3-8.2) g/dL Albumin (3.5-5.0) g/dL 04/26/18 04/27/18 04/27/18 Range/Units 22:24 00:01 01:03 Plt Count (150-450) k/uL Lymphocytes # (1.0-4.8) k/uL PT (9.0-12.0) sec INR (<1.2) Chloride (98-107) mmol/L BUN (7-17) mg/dL Glucose (74-99) mg/dL POC Glucose (mg/dL) 149 H 117 H 147 H (75-99) mg/dL Hemoglobin A1c (4.0-6.0) % Total Protein (6.3-8.2) g/dL Albumin (3.5-5.0) g/dL 04/27/18 04/27/18 04/27/18 Range/Units 03:02 04:26 06:14 Plt Count (150-450) k/uL Lymphocytes # (1.0-4.8) k/uL PT (9.0-12.0) sec INR (<1.2) Chloride (98-107) mmol/L BUN (7-17) mg/dL Glucose (74-99) mg/dL POC Glucose (mg/dL) 127 H 169 H 148 H (75-99) mg/dL Hemoglobin A1c (4.0-6.0) % Total Protein (6.3-8.2) g/dL Albumin (3.5-5.0) g/dL 04/27/18 04/27/18 04/27/18 Range/Units 06:55 06:55 06:55 Plt Count 114 L (150-450) k/uL Lymphocytes # 0.6 L (1.0-4.8) k/uL PT 15.7 H (9.0-12.0) sec INR 1.7 H (<1.2) Chloride 110 H (98-107) mmol/L BUN 23 H (7-17) mg/dL Glucose 130 H (74-99) mg/dL POC Glucose (mg/dL) (75-99) mg/dL Hemoglobin A1c (4.0-6.0) % Total Protein 5.6 L (6.3-8.2) g/dL Albumin 3.4 L (3.5-5.0) g/dL 04/27/18 04/27/18 Range/Units 08:36 10:29 Plt Count (150-450) k/uL Lymphocytes # (1.0-4.8) k/uL PT (9.0-12.0) sec INR (<1.2) Chloride (98-107) mmol/L BUN (7-17) mg/dL Glucose (74-99) mg/dL POC Glucose (mg/dL) 244 H 237 H (75-99) mg/dL Hemoglobin A1c (4.0-6.0) % Total Protein (6.3-8.2) g/dL Albumin (3.5-5.0) g/dL Assessment and Plan Assessment: 1. Chest pain: Atypical. Acute coronary event has been ruled out. EKG sinus bradycardia with a heart rate of 57. Cardiac enzymes are negative. Patient seen and evaluated by cardiology and has been cleared for discharge. 2. Possible multiple sclerosis exacerbation: Patient has been started on IV site medical 250 mg every 6 hours. Neurology consulted. Computed tomography scan of the brain showing no acute changes does show chronic encephalomalacia from a prior infarct. CTA of the head and neck were negative. Per neurology services patient does appear to have acute exacerbation of her multiple sclerosis. MRI of the brain, cervical spine and thoracic spine has been ordered per neurology services 3. Right leg pain with recent fall. Evidence of bruising. Check x-ray of right tibia fibula there is no acute fracture or dislocation seen in the right tibia or fibula moderate try a compartmental arthroplasty of the right knee 4. History of PE and DVT anticoagulated with Coumadin INR subtherapeutic at 1.4. Patient scheduled for Coumadin 7.5 mg tonight. PT/INR 1.7. Resume home Coumadin 5. History of CVA with known dysphagia and right-sided weakness 6. Hyperlipidemia 7. Fibromyalgia 8. Depression 9. Hypothyroidism 10. Thrombocytopenia: Platelets 111. Continue to monitor. Patient is supposed to have workup completed with hematology outpatient. Platelets 114 DVT prophylaxis Coumadin. GI prophylaxis Protonix I performed an examination of the patient and discussed their management with the Nurse Practitioner. I have reviewed the Nurse Practitioner's notes and agree with the documented findings and plan of care
[2018-04-27] MEDS: INSULIN REGULAR 100 UNIT in SODIUM CHLORIDE 0.9% 100 ML IV SCH (11:33)
[2018-04-27 12:37] LABS: Glucose,Whole Blood 161 mg/dL (75-99)
[2018-04-27 14:27] LABS: Glucose,Whole Blood 143 mg/dL (75-99)
--- NOTE | 2018-04-27 15:00 | P.PN ---
Subjective Progress Note Date: 04/27/18 Patient is a pleasant 62-year-old female who is being followed by the neurology service for MS exacerbation. Patient has history of multiple sclerosis with multiple exacerbations requiring hospitalization, CVA with right hemiparesis as well as expressive aphasia. Patient experienced weakness and chest pain while at the physician's office and patient was sent to [facility] for further evaluation. CT of the brain was done which showed no acute changes but did show chronic encephalomalacia compatible with prior infarct. CTA of the head and neck was negative. Patient had a recent fall which exacerbated the pain. Patient does have bruising of the lower extremities. Patient is on IV Solu-Medrol 250 mg every 6 hours for MS exacerbation. Patient feels she is much improved since admission. At the time of my evaluation, patient's resting comfortably in bed and appears to be in no acute distress. is at the bedside. Objective - Vital Signs Vital signs: Vital Signs Temp 97.7 F 04/27/18 12:14 Pulse 74 04/27/18 12:14 Resp 18 04/27/18 12:14 BP 125/58 04/27/18 12:14 Pulse Ox 96 04/27/18 12:14 Intake & Output 04/26/18 04/27/18 04/27/18 18:59 06:59 18:59 Intake Total 470.468 353.155 4983.688 Balance 470.468 400.204 8713.688 Weight 104.326 kg Intake: Intake, IV Titration 30.468 266.243 878.688 Amount Insulin Regular 100 unit 30.468 26.243 38.688 In Sodium Chloride 0.9% 100 ml @ Titrate IV .Q0M [facility] Rx#:[id number] Sodium Chloride 0.9% 1, 240 640 000 ml @ 80 mls/hr IV . [id number] [facility] Rx#:[id number] methylPREDNISolone SOD 200 SUCCI 250 mg In Sodium Chloride 0.9% 100 ml @ 100 mls/hr IVPB Q6HR [facility] Rx#:[id number] Oral 226 958 4795 Other 200 Other: Voiding Method Toilet Toilet Diaper Diaper Diaper Incontinent # Voids 1 1 2 - Exam PHYSICAL EXAM: GENERAL APPEARANCE: Patient is a well-developed, female who appears to be in no acute distress. HEENT: Normocephalic, atraumatic, no facial asymmetry is seen. Neck is supple with no masses felt. CARDIOVASCULAR: Regular rate and rhythm. ABDOMEN: Nontender, nondistended. EXTREMITIES: Show no edema or clubbing. NEUROLOGICAL EXAM: Patient is awake, alert, and oriented 3. No dysarthria is noted. Language testing showed expressive aphasia with word substitution. Strength is 4+/5 in bilateral lower extremities and 5/5 in bilateral upper extremities. Sensory exam is normal to light touch in bilateral upper extremities. Allodynia is noted in bilateral distal lower extremities. No tremors or seizure-like activity is seen. No facial asymmetry is noted on cranial nerve testing. - Labs CBC & Chem 7: 04/27/18 06:55 04/27/18 06:55 Labs: Abnormal Lab Results - Last 24 Hours (Table) 04/26/18 04/26/18 04/26/18 Range/Units 03:36 16:00 16:30 Plt Count (150-450) k/uL Lymphocytes # (1.0-4.8) k/uL PT (9.0-12.0) sec INR (<1.2) Chloride (98-107) mmol/L BUN (7-17) mg/dL Glucose (74-99) mg/dL POC Glucose (mg/dL) 324 H 298 H (75-99) mg/dL Hemoglobin A1c 6.2 H (4.0-6.0) % Total Protein (6.3-8.2) g/dL Albumin (3.5-5.0) g/dL 04/26/18 04/26/18 04/26/18 Range/Units 17:00 17:31 18:04 Plt Count (150-450) k/uL Lymphocytes # (1.0-4.8) k/uL PT (9.0-12.0) sec INR (<1.2) Chloride (98-107) mmol/L BUN (7-17) mg/dL Glucose (74-99) mg/dL POC Glucose (mg/dL) 252 H 300 H 236 H (75-99) mg/dL Hemoglobin A1c (4.0-6.0) % Total Protein (6.3-8.2) g/dL Albumin (3.5-5.0) g/dL 04/26/18 04/26/18 04/26/18 Range/Units 18:30 20:26 22:24 Plt Count (150-450) k/uL Lymphocytes # (1.0-4.8) k/uL PT (9.0-12.0) sec INR (<1.2) Chloride (98-107) mmol/L BUN (7-17) mg/dL Glucose (74-99) mg/dL POC Glucose (mg/dL) 199 H 154 H 149 H (75-99) mg/dL Hemoglobin A1c (4.0-6.0) % Total Protein (6.3-8.2) g/dL Albumin (3.5-5.0) g/dL 04/27/18 04/27/18 04/27/18 Range/Units 00:01 01:03 03:02 Plt Count (150-450) k/uL Lymphocytes # (1.0-4.8) k/uL PT (9.0-12.0) sec INR (<1.2) Chloride (98-107) mmol/L BUN (7-17) mg/dL Glucose (74-99) mg/dL POC Glucose (mg/dL) 117 H 147 H 127 H (75-99) mg/dL Hemoglobin A1c (4.0-6.0) % Total Protein (6.3-8.2) g/dL Albumin (3.5-5.0) g/dL 04/27/18 04/27/18 04/27/18 Range/Units 04:26 06:14 06:55 Plt Count 114 L (150-450) k/uL Lymphocytes # 0.6 L (1.0-4.8) k/uL PT (9.0-12.0) sec INR (<1.2) Chloride (98-107) mmol/L BUN (7-17) mg/dL Glucose (74-99) mg/dL POC Glucose (mg/dL) 169 H 148 H (75-99) mg/dL Hemoglobin A1c (4.0-6.0) % Total Protein (6.3-8.2) g/dL Albumin (3.5-5.0) g/dL 04/27/18 04/27/18 04/27/18 Range/Units 06:55 06:55 08:36 Plt Count (150-450) k/uL Lymphocytes # (1.0-4.8) k/uL PT 15.7 H (9.0-12.0) sec INR 1.7 H (<1.2) Chloride 110 H (98-107) mmol/L BUN 23 H (7-17) mg/dL Glucose 130 H (74-99) mg/dL POC Glucose (mg/dL) 244 H (75-99) mg/dL Hemoglobin A1c (4.0-6.0) % Total Protein 5.6 L (6.3-8.2) g/dL Albumin 3.4 L (3.5-5.0) g/dL 04/27/18 04/27/18 04/27/18 Range/Units 10:29 12:36 14:26 Plt Count (150-450) k/uL Lymphocytes # (1.0-4.8) k/uL PT (9.0-12.0) sec INR (<1.2) Chloride (98-107) mmol/L BUN (7-17) mg/dL Glucose (74-99) mg/dL POC Glucose (mg/dL) 237 H 161 H 143 H (75-99) mg/dL Hemoglobin A1c (4.0-6.0) % Total Protein (6.3-8.2) g/dL Albumin (3.5-5.0) g/dL Assessment and Plan Plan: Impression: 1. Possible CVA 2. Acute multiple sclerosis exacerbation 3. Facial asymmetry, resolved 4. Lower extremity weakness 5. Lower extremity neuropathic pain 6. History of ischemic stroke 7. Residual expressive aphasia 8. Recent fall Recommendations: The patient's facial asymmetry has resolved. She does appear to be having an acute exacerbation of her multiple sclerosis. She has had similar episodes in the past that have responded well to IV Solu-Medrol. I had ordered an MRI of the brain, cervical spine, and thoracic spine. Patient can have cervical spine and thoracic spine MRI done as an outpatient. MRI of the brain will be scheduled today or tomorrow. CTA of the head and neck were unremarkable. CT of the brain showed no acute abnormality. Continue IV Solu- Medrol at current dose. Continue Accu-Cheks and sliding scale insulin. In 24 hours, patient can be switched to oral steroid taper and can be discharged from neurologic standpoint. EEG was ordered. Her fasting lipid panel was within normal limits except for high HDL. Serum homocystine level is pending. Continue physical therapy. As for her history of stroke and pulmonary embolism , continue anticoagulation therapy with Coumadin. I recommend adjusting her Coumadin dose to his reach therapeutic INR. Continue neurological checks. I will continue to follow with you. Further recommendations to follow. I performed an examination of the patient and discussed the management with the RESIDENT SERVICES MANAGER. I have reviewed the RESIDENT SERVICES MANAGER notes and agree with the findings and plan of care.
[2018-04-27 16:34] LABS: Glucose,Whole Blood 61 mg/dL (75-99)
[2018-04-27] MEDS: LORATADINE 10 MG TAB PO SCH (16:39)
[2018-04-27] MEDS: BACLOFEN 10 MG TAB PO SCH (16:39)
[2018-04-27] MEDS: MONTELUKAST 10 MG TAB PO SCH (16:40)
[2018-04-27 16:59] LABS: Glucose,Whole Blood 88 mg/dL (75-99)
[2018-04-27 17:16] LABS: Glucose,Whole Blood 153 mg/dL (75-99)
[2018-04-27] MEDS: FERROUS SULFATE 325 MG TAB PO SCH (17:32)
[2018-04-27] MEDS: WARFARIN 7.5 MG TAB PO SCH (17:32)
[2018-04-27 18:51] LABS: Glucose,Whole Blood 226 mg/dL (75-99)
[2018-04-27 20:26] LABS: Glucose,Whole Blood 248 mg/dL (75-99)
[2018-04-27] MEDS: PRAVASTATIN SODIUM 20 MG TAB PO SCH (21:16)
[2018-04-27] MEDS: CITALOPRAM HYDROBROMIDE 20 MG TAB PO SCH (21:16)
[2018-04-27 22:53] LABS: Glucose,Whole Blood 122 mg/dL (75-99)
[2018-04-28] MEDS: SODIUM CHLORIDE 0.9% 1,000 ML IV SCH ×2 (00:15→12:20)
[2018-04-28 00:32] LABS: Glucose,Whole Blood 99 mg/dL (75-99)
[2018-04-28 01:24] LABS: Glucose,Whole Blood 112 mg/dL (75-99)
[2018-04-28 02:44] LABS: Glucose,Whole Blood 141 mg/dL (75-99)
[2018-04-28 04:37] LABS: Glucose,Whole Blood 101 mg/dL (75-99)
[2018-04-28 05:54] LABS: Glucose,Whole Blood 159 mg/dL (75-99)
[2018-04-28] MEDS: methylPREDNISolone SOD SUCCI 250 MG in SODIUM CHLORIDE 0.9% 100 ML IVPB SCH ×2 (06:24→12:20)
[2018-04-28] MEDS: LEVOTHYROXINE 50 MCG TAB PO SCH (06:24)
[2018-04-28] MEDS: PANTOPRAZOLE 40 MG TABLET PO SCH (06:24)
[2018-04-28 07:46] LABS: Basophils % (A) 0 %; Eosinophils % (A) 1 %; HCT 35.2 % (34.0-46.0); HGB 11.6 gm/dL (11.4-16.0); Lymphocytes # (A) 0.5 k/uL (1.0-4.8); Lymphocytes % (A) 10 %; MCH 30.1 pg (25.0-35.0); MCHC 33.1 g/dL (31.0-37.0); MCV 90.8 fL (80.0-100.0); Mean Platelet Volume 10.4; Monocytes # (A) 0.1 k/uL (0-1.0); Monocytes % (A) 2 %; Neutrophils # (A) 3.9 k/uL (1.3-7.7); Neutrophils % (A) 86 %; Platelet Count 114 k/uL (150-450); RBC 3.87 m/uL (3.80-5.40); RDW 14.6 % (11.5-15.5); WBC 4.6 k/uL (3.8-10.6)
[2018-04-28 07:59] LABS: INR 2.4 (<1.2)
[2018-04-28 07:59] LABS: Glucose,Whole Blood 140 mg/dL (75-99)
[2018-04-28] MEDS: Dimethyl Fumarate [Tecfidera] 240 MG PO SCH ×2 (08:41→20:41)
[2018-04-28] MEDS: INSULIN ASPART 100 UNIT/ML 1 ML 10 ML VIAL SQ SCH ×3 (08:41→18:11)
[2018-04-28] MEDS: ASPIRIN 81 MG PO SCH (08:41)
[2018-04-28] MEDS: ENOXAPARIN 100 MG/ML SYRINGE SQ SCH ×2 (08:41→20:42)
[2018-04-28] MEDS: CHOLECALCIFEROL 1,000 UNIT TAB PO SCH (08:41)
[2018-04-28] MEDS: FLUTICASONE 50MCG/SPRAY NASAL 16GM EA NOSTRIL SCH (08:41)
[2018-04-28] MEDS: METHYLPHENIDATE HCL 10 MG TAB PO SCH (08:42)
[2018-04-28] MEDS: PREGABALIN 100 MG CAP PO SCH ×3 (08:42→20:42)
[2018-04-28] MEDS: FUROSEMIDE 40 MG TAB PO SCH ×2 (08:42→16:51)
[2018-04-28] MEDS: FOLIC ACID 1 MG TAB PO SCH (08:42)
[2018-04-28] MEDS: POTASSIUM CHLORIDE ER 20 MEQ TAB.ER PO SCH ×2 (08:42→16:53)
[2018-04-28 08:49] LABS: Albumin 3.1 g/dL (3.5-5.0); Calcium 8.7 mg/dL (8.4-10.2); Potassium 3.7 mmol/L (3.5-5.1); Total Bilirubin 0.3 mg/dL (0.2-1.3); Total Protein 5.3 g/dL (6.3-8.2)
[2018-04-28 10:04] LABS: Glucose,Whole Blood 149 mg/dL (75-99)
--- NOTE | 2018-04-28 11:15 | MR ---
EXAMINATION TYPE: MR brain wo/w con DATE OF EXAM: 04/28/2018 11:05 AM COMPARISON: Previous study dated 09/14/2017. HISTORY: Speech impairment, TIA TECHNIQUE: Multiplanar, multiecho imaging of the brain was obtained with and without intravenous adm inistration of 10 mL intravenous Gadavist. FINDINGS: A fast brain protocol has been utilized. This decreases resolution. Midline structures are unremarkable. There is a normal craniocervical junction. Echoplanar diffusion imaging demonstrates no evidence of restricted diffusion. There is evidence of an old left MCA infarct. Vascular flow voids are maintained. The orbits are unremarkable. There is no evidence of a CP angle mass lesion. There is no acute focal lesion, mass effect or midline shift identified. I do not see evidence of int racranial blood. There is a stable focus of increased FLAIR signal in the right parietal lobe, unchan ged from previous. Following intravenous administration of gadolinium, there is mild meningeal enhancement. IMPRESSION: 1. NO ACUTE INTRACRANIAL ABNORMALITY. 2. EVIDENCE OF A LEFT MCA INFARCT. 3. MILD, DIFFUSE MENINGEAL ENHANCEMENT.
--- NOTE | 2018-04-28 12:42 | P.PN ---
Subjective Progress Note Date: 04/28/18 Patient is a pleasant 62-year-old female who is being followed by the neurology service for MS exacerbation. Patient has history of multiple sclerosis with multiple exacerbations requiring hospitalization, CVA with right hemiparesis as well as expressive aphasia. Patient experienced weakness and chest pain while at the physician's office and patient was sent to [facility] for further evaluation. CT of the brain was done which showed no acute changes but did show chronic encephalomalacia compatible with prior infarct. CTA of the head and neck was negative. Patient had a recent fall which exacerbated the pain. Patient does have bruising of the lower extremities. Patient is on IV Solu-Medrol 250 mg every 6 hours for MS exacerbation. Patient feels she is much improved since admission. At the time of my evaluation, patient's resting comfortably in bed and appears to be in no acute distress. is at the bedside. 04/28/2018 Patient is a pleasant 62-year-old female who is being followed by the neurology service for multiple sclerosis exacerbation. Patient is doing very well. Patient feels she is back to baseline. Patient is up ambulating with her cane. MRI of the brain was done and shows no acute intracranial abnormality. MRI does show evidence of old left MCA infarct. Patient does have history of cord lesions and cervical and thoracic MRI can be done as an outpatient. Patient denies return of chest pain. At the time of my evaluation , patient's resting comfortably in bed and appears to be in no acute distress. Objective - Vital Signs Vital signs: Vital Signs Temp 97.7 F 04/28/18 04:50 Pulse 56 L 04/28/18 04:50 Resp 16 04/28/18 04:50 BP 111/55 04/28/18 04:50 Pulse Ox 94 L 04/28/18 04:50 Intake & Output 04/27/18 04/28/18 04/28/18 18:59 06:59 18:59 Intake Total 8380.291 3738.760 18.828 Balance 5257.684 9216.760 18.828 Weight 104.326 kg Intake: Intake, IV Titration 891.414 328.760 18.828 Amount Insulin Regular 100 unit 51.414 48.760 18.828 In Sodium Chloride 0.9% 100 ml @ Titrate IV .Q0M [facility] Rx#:[id number] Sodium Chloride 0.9% 1, 640 280 000 ml @ 80 mls/hr IV . [id number] [facility] Rx#:[id number] methylPREDNISolone SOD 200 SUCCI 250 mg In Sodium Chloride 0.9% 100 ml @ 100 mls/hr IVPB Q6HR [facility] Rx#:[id number] Oral 1080 680 Other: Voiding Method Diaper Bedside Commode # Voids 2 3 - Exam PHYSICAL EXAM: GENERAL APPEARANCE: Patient is a well-developed, female who appears to be in no acute distress. HEENT: Normocephalic, atraumatic, no facial asymmetry is seen. Neck is supple with no masses felt. CARDIOVASCULAR: Regular rate and rhythm. ABDOMEN: Nontender, nondistended. EXTREMITIES: Show no edema or clubbing. NEUROLOGICAL EXAM: Patient is awake, alert, and oriented 3. No dysarthria is noted. Language testing showed expressive aphasia with word substitution. Strength is 5-/5 in bilateral lower extremities and 5/5 in bilateral upper extremities. Sensory exam is normal to light touch in bilateral upper extremities. Allodynia is noted in bilateral distal lower extremities. No tremors or seizure-like activity is seen. No facial asymmetry is noted on cranial nerve testing. - Labs CBC & Chem 7: 04/28/18 06:37 04/28/18 06:37 Labs: Abnormal Lab Results - Last 24 Hours (Table) 04/27/18 04/27/18 04/27/18 Range/Units 12:36 14:26 16:33 Plt Count (150-450) k/uL Lymphocytes # (1.0-4.8) k/uL PT (9.0-12.0) sec INR (<1.2) Chloride (98-107) mmol/L BUN (7-17) mg/dL Glucose (74-99) mg/dL POC Glucose (mg/dL) 161 H 143 H 61 L (75-99) mg/dL AST (14-36) U/L Total Protein (6.3-8.2) g/dL Albumin (3.5-5.0) g/dL 04/27/18 04/27/18 04/27/18 Range/Units 17:15 18:49 20:24 Plt Count (150-450) k/uL Lymphocytes # (1.0-4.8) k/uL PT (9.0-12.0) sec INR (<1.2) Chloride (98-107) mmol/L BUN (7-17) mg/dL Glucose (74-99) mg/dL POC Glucose (mg/dL) 153 H 226 H 248 H (75-99) mg/dL AST (14-36) U/L Total Protein (6.3-8.2) g/dL Albumin (3.5-5.0) g/dL 04/27/18 04/28/18 04/28/18 Range/Units 22:33 01:16 02:23 Plt Count (150-450) k/uL Lymphocytes # (1.0-4.8) k/uL PT (9.0-12.0) sec INR (<1.2) Chloride (98-107) mmol/L BUN (7-17) mg/dL Glucose (74-99) mg/dL POC Glucose (mg/dL) 122 H 112 H 141 H (75-99) mg/dL AST (14-36) U/L Total Protein (6.3-8.2) g/dL Albumin (3.5-5.0) g/dL 04/28/18 04/28/18 04/28/18 Range/Units 04:32 05:51 06:37 Plt Count 114 L (150-450) k/uL Lymphocytes # 0.5 L (1.0-4.8) k/uL PT (9.0-12.0) sec INR (<1.2) Chloride (98-107) mmol/L BUN (7-17) mg/dL Glucose (74-99) mg/dL POC Glucose (mg/dL) 101 H 159 H (75-99) mg/dL AST (14-36) U/L Total Protein (6.3-8.2) g/dL Albumin (3.5-5.0) g/dL 04/28/18 04/28/18 04/28/18 Range/Units 06:37 06:37 07:57 Plt Count (150-450) k/uL Lymphocytes # (1.0-4.8) k/uL PT 22.0 H (9.0-12.0) sec INR 2.4 H (<1.2) Chloride 109 H (98-107) mmol/L BUN 24 H (7-17) mg/dL Glucose 129 H (74-99) mg/dL POC Glucose (mg/dL) 140 H (75-99) mg/dL AST 13 L (14-36) U/L Total Protein 5.3 L (6.3-8.2) g/dL Albumin 3.1 L (3.5-5.0) g/dL 04/28/18 Range/Units 10:03 Plt Count (150-450) k/uL Lymphocytes # (1.0-4.8) k/uL PT (9.0-12.0) sec INR (<1.2) Chloride (98-107) mmol/L BUN (7-17) mg/dL Glucose (74-99) mg/dL POC Glucose (mg/dL) 149 H (75-99) mg/dL AST (14-36) U/L Total Protein (6.3-8.2) g/dL Albumin (3.5-5.0) g/dL Assessment and Plan Plan: Impression: 1. Atypical chest pain 2. Acute multiple sclerosis exacerbation 3. Lower extremity weakness 4. Lower extremity neuropathic pain 5. History of ischemic stroke 6. Residual expressive aphasia 7. Recent fall Recommendations: The patient's overall status has improved. MRI of the brain did not show any acute intracranial process. Patient can have cervical spine and thoracic spine MRI done as an outpatient. CTA of the head and neck were unremarkable. CT of the brain showed no acute abnormality. I will discontinue IV Solu-Medrol and order a prednisone taper. Continue Accu-Cheks and sliding scale insulin every morning and every afternoon. Continue physical therapy to ambulate patient. Patient can be discharged from a neurological standpoint in the morning. EEG can be done as an outpatient. Her fasting lipid panel was within normal limits except for high HDL. Continue statin therapy. Serum homocystine levels within normal limits. As for her history of stroke and pulmonary embolism, continue anticoagulation therapy with Coumadin. INR is therapeutic at 2.4 today. Continue neurological checks. I will continue to follow with you on an as-needed basis. Feel free to call with any questions or concerns. I performed an examination of the patient and discussed the management with the BUS AIDE. I have reviewed the BUS AIDE notes and agree with the findings and plan of care.
--- NOTE | 2018-04-28 16:23 | P.PN ---
Subjective Progress Note Date: 04/28/18 This is a 62-year-old female with a known past medical history of MS with multiple exacerbations requiring hospitalization, DVT and PE, hypothyroidism, CVA that affected her right side as well as expressive aphasia. Also has a history of sleep apnea, hyperlipidemia, fibromyalgia and depression. Difficult to obtain history from patient due to her expressive aphasia. But apparently she had some chest pain. In the center of her chest. This started yesterday. She went to see Dr. Paredes in the office and had been complaining of chest pain and also was very lethargic. Patient's was informed to bring her to the ER for further evaluation. Patient has been seen by cardiology there is no evidence of acute coronary syndrome. EKG had shown sinus bradycardia heart rate 57 . troponins are negative. Computed tomography scan of the brain had shown no acute changes it did show chronic encephalomalacia compatible with prior infarct. CTA of the head and neck was negative. Patient is also complaining of right leg pain. There are bruises noted along that right leg that are greenish and yellowish in color. She does report falling. Patient also has been started on IV Solu-Medrol 250 mg every 6 hours for possible MS exacerbation. Neurology has been consulted. On 04/27/2018 patient is currently resting comfortably bed. Patient does state that she is feeling slightly improved from yesterday. Patient remains on IV Solu-Medrol 250 every 6 hours. MRIs have been ordered per neurology services. This time patient denies chest pain or shortness of breath. Patient denies nausea vomiting or diarrhea. Patient denies any urinary burning or frequency. On 04/28/2018 patient was seen and examined on the medical floor she is alert and responsive answering questions appropriately she denies any fever or chills no headache no dizziness no chest pain no shortness of breath no cough no nausea or vomiting no abdominal pain no diarrhea and no urinary symptoms Objective - Vital Signs Vital signs: Vital Signs Temp 98 F 04/28/18 12:36 Pulse 55 L 04/28/18 12:36 Resp 14 04/28/18 12:36 BP 117/60 04/28/18 12:36 Pulse Ox 94 L 04/28/18 12:36 Intake & Output 04/27/18 04/28/18 04/28/18 18:59 06:59 18:59 Intake Total 8326.319 3005.760 18.828 Balance 2185.354 8040.760 18.828 Weight 104.326 kg Intake: Intake, IV Titration 891.414 328.760 18.828 Amount Insulin Regular 100 unit 51.414 48.760 18.828 In Sodium Chloride 0.9% 100 ml @ Titrate IV .Q0M [facility] Rx#:[id number] Sodium Chloride 0.9% 1, 640 280 000 ml @ 80 mls/hr IV . [id number] [facility] Rx#:[id number] methylPREDNISolone SOD 200 SUCCI 250 mg In Sodium Chloride 0.9% 100 ml @ 100 mls/hr IVPB Q6HR [facility] Rx#:[id number] Oral 1080 680 Other: Voiding Method Diaper Bedside Commode # Voids 2 3 1 - Exam Head normocephalic Neck supple Lungs clear to auscultation bilaterally no wheezing or crackles Heart regular rate and rhythm S1-S2, no rub or gallop Abdomen is soft nontender nondistended positive bowel sounds no hepatosplenomegaly Extremities no edema. Right leg greenish yellowish bruising noted along the right tibia. Tenderness with palpation. Neuro alert and orientated and alert. Expressive aphasia - Labs CBC & Chem 7: 04/28/18 06:37 04/28/18 06:37 Labs: Abnormal Lab Results - Last 24 Hours (Table) 04/27/18 04/27/18 04/27/18 Range/Units 16:33 17:15 18:49 Plt Count (150-450) k/uL Lymphocytes # (1.0-4.8) k/uL PT (9.0-12.0) sec INR (<1.2) Chloride (98-107) mmol/L BUN (7-17) mg/dL Glucose (74-99) mg/dL POC Glucose (mg/dL) 61 L 153 H 226 H (75-99) mg/dL AST (14-36) U/L Total Protein (6.3-8.2) g/dL Albumin (3.5-5.0) g/dL 04/27/18 04/27/18 04/28/18 Range/Units 20:24 22:33 01:16 Plt Count (150-450) k/uL Lymphocytes # (1.0-4.8) k/uL PT (9.0-12.0) sec INR (<1.2) Chloride (98-107) mmol/L BUN (7-17) mg/dL Glucose (74-99) mg/dL POC Glucose (mg/dL) 248 H 122 H 112 H (75-99) mg/dL AST (14-36) U/L Total Protein (6.3-8.2) g/dL Albumin (3.5-5.0) g/dL 04/28/18 04/28/18 04/28/18 Range/Units 02:23 04:32 05:51 Plt Count (150-450) k/uL Lymphocytes # (1.0-4.8) k/uL PT (9.0-12.0) sec INR (<1.2) Chloride (98-107) mmol/L BUN (7-17) mg/dL Glucose (74-99) mg/dL POC Glucose (mg/dL) 141 H 101 H 159 H (75-99) mg/dL AST (14-36) U/L Total Protein (6.3-8.2) g/dL Albumin (3.5-5.0) g/dL 04/28/18 04/28/18 04/28/18 Range/Units 06:37 06:37 06:37 Plt Count 114 L (150-450) k/uL Lymphocytes # 0.5 L (1.0-4.8) k/uL PT 22.0 H (9.0-12.0) sec INR 2.4 H (<1.2) Chloride 109 H (98-107) mmol/L BUN 24 H (7-17) mg/dL Glucose 129 H (74-99) mg/dL POC Glucose (mg/dL) (75-99) mg/dL AST 13 L (14-36) U/L Total Protein 5.3 L (6.3-8.2) g/dL Albumin 3.1 L (3.5-5.0) g/dL 04/28/18 04/28/18 Range/Units 07:57 10:03 Plt Count (150-450) k/uL Lymphocytes # (1.0-4.8) k/uL PT (9.0-12.0) sec INR (<1.2) Chloride (98-107) mmol/L BUN (7-17) mg/dL Glucose (74-99) mg/dL POC Glucose (mg/dL) 140 H 149 H (75-99) mg/dL AST (14-36) U/L Total Protein (6.3-8.2) g/dL Albumin (3.5-5.0) g/dL Assessment and Plan Plan: 1. Chest pain: Atypical. Acute coronary event has been ruled out. EKG sinus bradycardia with a heart rate of 57. Cardiac enzymes are negative. Patient seen and evaluated by cardiology and has been cleared for discharge. 2. Possible multiple sclerosis exacerbation: Patient has been started on IV site medical 250 mg every 6 hours. Neurology consulted. Computed tomography scan of the brain showing no acute changes does show chronic encephalomalacia from a prior infarct. CTA of the head and neck were negative. Per neurology services patient does appear to have acute exacerbation of her multiple sclerosis. MRI of the brain, cervical spine and thoracic spine has been ordered per neurology services 3. Right leg pain with recent fall. Evidence of bruising. Check x-ray of right tibia fibula there is no acute fracture or dislocation seen in the right tibia or fibula moderate try a compartmental arthroplasty of the right knee 4. History of PE and DVT anticoagulated with Coumadin INR subtherapeutic at 1.4. Patient scheduled for Coumadin 7.5 mg tonight. PT/INR 1.7. Resume home Coumadin 5. History of CVA with known dysphagia and right-sided weakness 6. Hyperlipidemia 7. Fibromyalgia 8. Depression 9. Hypothyroidism 10. Thrombocytopenia: Platelets 111. Continue to monitor. Patient is supposed to have workup completed with hematology outpatient. Platelets 114 DVT prophylaxis Coumadin. GI prophylaxis Protonix
[2018-04-28] MEDS: FERROUS SULFATE 325 MG TAB PO SCH (16:51)
[2018-04-28] MEDS: WARFARIN 7.5 MG TAB PO SCH (16:52)
[2018-04-28] MEDS: BACLOFEN 10 MG TAB PO SCH (16:52)
[2018-04-28] MEDS: LORATADINE 10 MG TAB PO SCH (16:53)
[2018-04-28] MEDS: MONTELUKAST 10 MG TAB PO SCH (16:53)
[2018-04-28 16:59] LABS: Glucose,Whole Blood 235 mg/dL (75-99)
[2018-04-28 20:12] LABS: Glucose,Whole Blood 267 mg/dL (75-99)
[2018-04-28] MEDS: CITALOPRAM HYDROBROMIDE 20 MG TAB PO SCH (20:42)
[2018-04-28] MEDS: PRAVASTATIN SODIUM 20 MG TAB PO SCH (20:42)
[2018-04-28] MEDS: ACETAMINOPHEN TAB 325 MG TAB PO PRN (20:49)
[2018-04-28] MEDS: ceFAZolin 1,000 MG in DEXTROSE/WATER 1 50ML.BAG IVPB SCH (22:01)
[2018-04-29] MEDS: SODIUM CHLORIDE 0.9% 1,000 ML IV SCH ×2 (00:02→12:30)
[2018-04-29] MEDS: ceFAZolin 1,000 MG in DEXTROSE/WATER 1 50ML.BAG IVPB SCH ×3 (00:03→17:31)
[2018-04-29] MEDS: PANTOPRAZOLE 40 MG TABLET PO SCH (06:34)
[2018-04-29] MEDS: LEVOTHYROXINE 50 MCG TAB PO SCH (06:34)
[2018-04-29 07:05] LABS: Glucose,Whole Blood 123 mg/dL (75-99)
[2018-04-29 07:20] LABS: Albumin 2.9 g/dL (3.5-5.0); Calcium 8.3 mg/dL (8.4-10.2); Potassium 4.2 mmol/L (3.5-5.1); Total Bilirubin 0.3 mg/dL (0.2-1.3)
[2018-04-29 07:34] LABS: Basophils % (A) 0 %; Eosinophils % (A) 1 %; HCT 35.2 % (34.0-46.0); HGB 11.6 gm/dL (11.4-16.0); Lymphocytes # (A) 0.6 k/uL (1.0-4.8); Lymphocytes % (A) 14 %; MCH 30.4 pg (25.0-35.0); MCV 92.4 fL (80.0-100.0); Mean Platelet Volume 9.3; Monocytes # (A) 0.3 k/uL (0-1.0); Monocytes % (A) 6 %; Neutrophils # (A) 3.2 k/uL (1.3-7.7); Neutrophils % (A) 76 %; RBC 3.81 m/uL (3.80-5.40); RDW 14.9 % (11.5-15.5); WBC 4.2 k/uL (3.8-10.6)
[2018-04-29] MEDS: INSULIN ASPART 100 UNIT/ML 1 ML 10 ML VIAL SQ SCH ×3 (07:52→17:34)
[2018-04-29] MEDS: predniSONE 20 MG TAB PO SCH (07:53)
[2018-04-29] MEDS: ASPIRIN 81 MG PO SCH (07:54)
[2018-04-29] MEDS: ENOXAPARIN 100 MG/ML SYRINGE SQ SCH (07:55)
[2018-04-29] MEDS: CHOLECALCIFEROL 1,000 UNIT TAB PO SCH (07:55)
[2018-04-29] MEDS: Dimethyl Fumarate [Tecfidera] 240 MG PO SCH ×2 (07:55→21:11)
[2018-04-29] MEDS: FLUTICASONE 50MCG/SPRAY NASAL 16GM EA NOSTRIL SCH (07:56)
[2018-04-29] MEDS: POTASSIUM CHLORIDE ER 20 MEQ TAB.ER PO SCH ×2 (07:56→17:32)
[2018-04-29] MEDS: FOLIC ACID 1 MG TAB PO SCH (07:57)
[2018-04-29] MEDS: FUROSEMIDE 40 MG TAB PO SCH ×2 (07:57→17:32)
[2018-04-29 07:59] LABS: INR 3.3 (<1.2); Prothrombin Time 29.9 sec (9.0-12.0)
[2018-04-29] MEDS: PREGABALIN 100 MG CAP PO SCH ×3 (08:00→21:10)
[2018-04-29] MEDS: METHYLPHENIDATE HCL 10 MG TAB PO SCH (08:00)
--- NOTE | 2018-04-29 08:12 | US ---
EXAMINATION TYPE: US extremity nonvasc mass RT DATE OF EXAM: 04/29/2018 COMPARISON: NONE CLINICAL HISTORY: right upper extremity swollen. Pt having 2 areas right upper arm of bruising and pa lpables/ currently on blood thinners 1st, smaller area of bruising and palp anterior upper right arm= 1.6 x 1.0 x 1.8 cm echogenic area possibly representing hematoma 2nd, larger area of bruising and palp posterior upper right arm shows grossly heterogenous area= 11 .8 x 1.8 x 5.3 cm ?edema vs. hematoma Please note, both areas did not communicate with nearby veins IMPRESSION: PROBABLE HEMATOMAS IN THE RIGHT UPPER EXTREMITY.
[2018-04-29 08:16] LABS: Platelet Count 89 k/uL (150-450)
[2018-04-29] MEDS ORDERED: predniSONE 20 MG TAB PO SCH (09:00)
[2018-04-29] MEDS: ACETAMINOPHEN TAB 325 MG TAB PO PRN (10:57)
[2018-04-29 11:43] LABS: Glucose,Whole Blood 184 mg/dL (75-99)
[2018-04-29 16:45] LABS: Glucose,Whole Blood 113 mg/dL (75-99)
[2018-04-29] MEDS: MONTELUKAST 10 MG TAB PO SCH (17:31)
[2018-04-29] MEDS: FERROUS SULFATE 325 MG TAB PO SCH (17:31)
[2018-04-29] MEDS: BACLOFEN 10 MG TAB PO SCH (17:32)
[2018-04-29] MEDS: LORATADINE 10 MG TAB PO SCH (17:32)
[2018-04-29 20:05] LABS: Glucose,Whole Blood 162 mg/dL (75-99)
[2018-04-29] MEDS: PRAVASTATIN SODIUM 20 MG TAB PO SCH (21:10)
[2018-04-29] MEDS: CITALOPRAM HYDROBROMIDE 20 MG TAB PO SCH (21:11)
[2018-04-30] MEDS: ceFAZolin 1,000 MG in DEXTROSE/WATER 1 50ML.BAG IVPB SCH ×2 (00:26→07:26)
[2018-04-30] MEDS: LEVOTHYROXINE 50 MCG TAB PO SCH (06:16)
[2018-04-30] MEDS: PANTOPRAZOLE 40 MG TABLET PO SCH (06:16)
[2018-04-30 06:58] LABS: Glucose,Whole Blood 98 mg/dL (75-99)
[2018-04-30 07:19] VITALS: BP 103/50; PULSE 58; RESP 18; TEMP 97.7
[2018-04-30] MEDS: INSULIN ASPART 100 UNIT/ML 1 ML 10 ML VIAL SQ SCH ×3 (07:26→12:40)
[2018-04-30] MEDS: PREGABALIN 100 MG CAP PO SCH (07:27)
[2018-04-30] MEDS: METHYLPHENIDATE HCL 10 MG TAB PO SCH (07:27)
[2018-04-30] MEDS: Dimethyl Fumarate [Tecfidera] 240 MG PO SCH (07:28)
[2018-04-30] MEDS: FLUTICASONE 50MCG/SPRAY NASAL 16GM EA NOSTRIL SCH (07:29)
[2018-04-30] MEDS: CHOLECALCIFEROL 1,000 UNIT TAB PO SCH (07:29)
[2018-04-30] MEDS: ASPIRIN 81 MG PO SCH (07:29)
[2018-04-30] MEDS: FOLIC ACID 1 MG TAB PO SCH (07:29)
[2018-04-30] MEDS: FUROSEMIDE 40 MG TAB PO SCH (07:30)
[2018-04-30] MEDS: POTASSIUM CHLORIDE ER 20 MEQ TAB.ER PO SCH (07:30)
[2018-04-30] MEDS: predniSONE 20 MG TAB PO SCH (07:30)
[2018-04-30 07:50] LABS: Basophils % (A) 0 %; Eosinophils # (A) 0.1 k/uL (0-0.7); Eosinophils % (A) 2 %; HCT 32.2 % (34.0-46.0); HGB 10.7 gm/dL (11.4-16.0); INR 2.2 (<1.2); Lymphocytes # (A) 0.7 k/uL (1.0-4.8); Lymphocytes % (A) 21 %; MCH 30.4 pg (25.0-35.0); MCHC 33.4 g/dL (31.0-37.0); Mean Platelet Volume 9.9; Monocytes # (A) 0.3 k/uL (0-1.0); Monocytes % (A) 8 %; Neutrophils # (A) 2.1 k/uL (1.3-7.7); Neutrophils % (A) 66 %; Prothrombin Time 19.8 sec (9.0-12.0); RBC 3.54 m/uL (3.80-5.40); RDW 14.8 % (11.5-15.5); WBC 3.1 k/uL (3.8-10.6)
[2018-04-30 07:59] LABS: Platelet Count 94 k/uL (150-450)
[2018-04-30 08:01] LABS: Albumin 2.6 g/dL (3.5-5.0); Potassium 3.5 mmol/L (3.5-5.1); Total Protein 4.6 g/dL (6.3-8.2)
[2018-04-30 08:03] LABS: Total Bilirubin 0.4 mg/dL (0.2-1.3)
--- NOTE | 2018-04-30 11:17 | P.DS ---
Providers Date of admission: 04/26/18 15:14 Expected date of discharge: 04/30/18 Attending physician: Sarah Paredes Consults: 04/25/18 19:07 Consult Physician Routine Consulting Provider: Emanuel Edmondson Consult Reason/Comments: Chest pain Do you want consulting provider notified?: Yes Consult Physician Routine Consulting Provider: Yolanda Elizabeth Consult Reason/Comments: MS exacerbation Do you want consulting provider notified?: Yes Primary care physician: Sarah Paredes [facility] Course: Discharge summary 1. Chest pain: Atypical. Acute coronary event has been ruled out. EKG sinus bradycardia with a heart rate of 57. Cardiac enzymes are negative. Patient seen and evaluated by cardiology and has been cleared for discharge. 2. Possible multiple sclerosis exacerbation: Patient has been started on IV site medical 250 mg every 6 hours. Neurology consulted. Computed tomography scan of the brain showing no acute changes does show chronic encephalomalacia from a prior infarct. CTA of the head and neck were negative. Per neurology services patient does appear to have acute exacerbation of her multiple sclerosis. Per neurology services MRI of the brain did not show any acute intracranial processes. Patient had cervical spine and thoracic spine MRI done as outpatient. Patient will be DC'd home on prednisone taper 3. Right leg pain with recent fall. Evidence of bruising. Check x-ray of right tibia fibula there is no acute fracture or dislocation seen in the right tibia or fibula moderate try a compartmental arthroplasty of the right knee 4. History of PE and DVT anticoagulated with Coumadin INR subtherapeutic at 1.4. Patient scheduled for Coumadin 7.5 mg tonight. PT/INR 1.7. PT/INR 2.2. Coumadin be decreased to 5 mg daily. PT/INR has been ordered for 2 days 5. History of CVA with known dysphagia and right-sided weakness 6. Hyperlipidemia 7. Fibromyalgia 8. Depression 9. Hypothyroidism 10. Thrombocytopenia: Platelets 111. Continue to monitor. Patient is supposed to have workup completed with hematology outpatient. Platelets 94 11. Left arm hematoma. Extremity ultrasound completed showing probable hematomas in the right upper extremity. Hemoglobin 10.7. CBC has been ordered for 2 days. Patient advised to follow-up closely with PCP. Hospital course This is a 62-year-old female with a known past medical history of MS with multiple exacerbations requiring hospitalization, DVT and PE, hypothyroidism, CVA that affected her right side as well as expressive aphasia. Also has a history of sleep apnea, hyperlipidemia, fibromyalgia and depression. Difficult to obtain history from patient due to her expressive aphasia. But apparently she had some chest pain. In the center of her chest. This started yesterday. She went to see Dr. Paredes in the office and had been complaining of chest pain and also was very lethargic. Patient's was informed to bring her to the ER for further evaluation. Patient has been seen by cardiology there is no evidence of acute coronary syndrome. EKG had shown sinus bradycardia heart rate 57 . troponins are negative. Computed tomography scan of the brain had shown no acute changes it did show chronic encephalomalacia compatible with prior infarct. CTA of the head and neck was negative. Patient is also complaining of right leg pain. There are bruises noted along that right leg that are greenish and yellowish in color. She does report falling. Patient also has been started on IV Solu-Medrol 250 mg every 6 hours for possible MS exacerbation. Neurology has been consulted. On 04/27/2018 patient is currently resting comfortably bed. Patient does state that she is feeling slightly improved from yesterday. Patient remains on IV Solu-Medrol 250 every 6 hours. MRIs have been ordered per neurology services. This time patient denies chest pain or shortness of breath. Patient denies nausea vomiting or diarrhea. Patient denies any urinary burning or frequency. On 04/28/2018 patient was seen and examined on the medical floor she is alert and responsive answering questions appropriately she denies any fever or chills no headache no dizziness no chest pain no shortness of breath no cough no nausea or vomiting no abdominal pain no diarrhea and no urinary symptoms On 04/29/2018 patient is alert and oriented 3. Patient denies chest pain or shortness breath. Patient denies any urinary burning or frequency. Right arm hematoma noted Patient will be discharged home on prednisone taper. Coumadin will also be decreased to 5 mg daily. PT/INR ordered for 2 days. CBC ordered for 2 days. Patient advised to follow-up closely with PCP and neurology services. I performed an examination of the patient and discussed their management with the Nurse Practitioner. I have reviewed the Nurse Practitioner's notes and agree with the documented findings and plan of care Patient Condition at Discharge: Stable Plan - Discharge Summary New Discharge Prescriptions: New predniSONE 10 mg PO DIRECTED #34 tab Warfarin Sodium [Coumadin] 5 mg PO DAILY #30 tablet Continue Baclofen [Lioresal] 10 mg PO DAILY@1700 Aspirin 81 mg PO DAILY@0900 Montelukast [Singulair] 10 mg PO DAILY@1700 Furosemide [Lasix] 40 mg PO BID@0900,1700 Potassium Chloride 20 meq PO BID@0900,1700 Citalopram Hydrobromide [CeleXA] 40 mg PO HS@2100 Nitroglycerin Sl Tabs [Nitrostat] 0.4 mg SUBLINGUAL Q5M PRN PRN Reason: Chest Pain Pantoprazole Sodium [Protonix] 40 mg PO DAILY@0600 Ferrous Sulfate [Feosol] 325 mg PO DAILY@1700 Fexofenadine HCl [Mimi Allergy] 180 mg PO DAILY@1700 Cholecalciferol [Vitamin D3] 2,000 unit PO DAILY@0900 Pravastatin Sodium [Pravachol] 20 mg PO HS@2100 Methylphenidate HCl [Ritalin] 20 mg PO QAM@0900 Fluticasone Nasal [place] [Flonase Nasal Tama] 1 spray EA NOSTRIL DAILY@0900 fentaNYL [Fentanyl] 25 mcg TRANSDERM Q72H Pregabalin [Lyrica] 100 mg PO TID@0900,1700,2100 Folic Acid 0.4 mg PO DAILY@0900 Biotin 10,000 mcg PO DAILY@0900 Levothyroxine Sodium [Synthroid] 50 mcg PO DAILY@0600 Dimethyl Fumarate [Tecfidera] 240 mg PO BID@ HYDROcodone/APAP 5-325MG [[place] 5-325] 1 tab PO DAILY PRN PRN Reason: Pain Albuterol Inhaler [Ventolin Hfa Inhaler] 1 - 2 puff INHALATION RT-Q6H PRN PRN Reason: Shortness Of Breath Discontinued Warfarin [Coumadin] 7.5 mg PO DAILY@1700 Discharge Medication List Aspirin 81 mg PO DAILY@0900 11/08/13 [History] Baclofen [Lioresal] 10 mg PO DAILY@169911/08/13 [History] Citalopram Hydrobromide [CeleXA] 40 mg PO HS@2100 11/08/13 [History] Ferrous Sulfate [Feosol] 325 mg PO DAILY@169911/08/13 [History] Fexofenadine HCl [Mimi Allergy] 180 mg PO DAILY@169911/08/13 [History] Furosemide [Lasix] 40 mg PO BID@0900,169911/08/13 [History] Montelukast [Singulair] 10 mg PO DAILY@169911/08/13 [History] Nitroglycerin Sl Tabs [Nitrostat] 0.4 mg SUBLINGUAL Q5M PRN 11/08/13 [History] Pantoprazole Sodium [Protonix] 40 mg PO DAILY@0611/08/13 [History] Potassium Chloride 20 meq PO BID@0900,169911/08/13 [History] Cholecalciferol [Vitamin D3] 2,000 unit PO DAILY@89911/18/15 [History] Fluticasone Nasal Tama [Flonase Nasal Tama] 1 spray EA NOSTRIL DAILY@899 [History] Methylphenidate HCl [Ritalin] 20 mg PO QAM@89911/18/15 [History] Pravastatin Sodium [Pravachol] 20 mg PO HS@209911/18/15 [History] fentaNYL [Fentanyl] 25 mcg TRANSDERM Q72H 11/18/15 [History] Pregabalin [Lyrica] 100 mg PO TID@0900,1700,209907/13/16 [History] Folic Acid 0.4 mg PO DAILY@89908/18/16 [History] Biotin 10,000 mcg PO DAILY@89907/06/17 [History] Levothyroxine Sodium [Synthroid] 50 mcg PO DAILY@59911/20/17 [History] Dimethyl Fumarate [Tecfidera] 240 mg PO BID@04/04/18 [History] HYDROcodone/APAP 5-325MG [[place] 5-325] 1 tab PO DAILY PRN 04/04/18 [History] Albuterol Inhaler [Ventolin Hfa Inhaler] 1 - 2 puff INHALATION RT-Q6H PRN [History] Warfarin Sodium [Coumadin] 5 mg PO DAILY #30 tablet 04/30/18 [Rx] predniSONE 10 mg PO DIRECTED #34 tab 04/30/18 [Rx] Follow up Appointment(s)/Referral(s): Yolanda Elizabeth MD [STAFF PHYSICIAN] - 1 Week Sarah Paredes MD [Primary Care Provider] - 3 Days Ambulatory/Diagnostic Orders: Complete Blood Count w/diff [LAB.AMB] Time Frame: 2 Days, Location: None Selected Prothrombin Time INR [LAB.AMB] Time Frame: 2 Days, Location: None Selected Activity/Diet/Wound Care/Special Instructions: Activity as tolerated Diet heart healthy Discharge Disposition: HOME SELF-CARE
[2018-04-30 11:34] LABS: Glucose,Whole Blood 228 mg/dL (75-99)
[2018-05-03] MEDS ORDERED: predniSONE 10 MG TAB PO SCH (09:00)
[2018-05-07] MEDS ORDERED: predniSONE 20 MG TAB PO SCH (09:00)
[2018-05-11] MEDS ORDERED: predniSONE 10 MG TAB PO SCH (09:00)
[2018-05-15] MEDS ORDERED: predniSONE 5 MG TAB PO SCH (09:00)
== END 2018-04-30 14:56 | disposition home or self-care (01) | DRG 59 ==
LOC: EC 15:44 → 1SOBS 19:06 → OBSVTOIN 04-26 15:14 → 3NMEDONC 04-26 23:48
PROVIDERS: ADMIT Internal Medicine; ATTEND Internal Medicine
DX: G35 Multiple sclerosis (principal); I69.351 Hemiplegia and hemiparesis following cerebral infarction affecting right dominant side; R07.89 Other chest pain; I69.398 Other sequelae of cerebral infarction; G93.89 Other specified disorders of brain; S80.11XA Contusion of right lower leg, initial encounter; W19.XXXA Unspecified fall, initial encounter; I69.321 Dysphasia following cerebral infarction; K46.9 Unspecified abdominal hernia without obstruction or gangrene; E78.5 Hyperlipidemia, unspecified; M79.7 Fibromyalgia; F32.9 Major depressive disorder, single episode, unspecified; E03.9 Hypothyroidism, unspecified; D69.6 Thrombocytopenia, unspecified; S40.021A Contusion of right upper arm, initial encounter; G47.30 Sleep apnea, unspecified; I69.391 Dysphagia following cerebral infarction; R47.02 Dysphasia; R13.10 Dysphagia, unspecified; I69.320 Aphasia following cerebral infarction; G43.909 Migraine, unspecified, not intractable, without status migrainosus; M19.90 Unspecified osteoarthritis, unspecified site; Z16.24 Resistance to multiple antibiotics; R00.1 Bradycardia, unspecified; R79.1 Abnormal coagulation profile; I20.9 Angina pectoris, unspecified; G62.9 Polyneuropathy, unspecified; Z86.718 Personal history of other venous thrombosis and embolism; Z86.711 Personal history of pulmonary embolism; Z91.81 History of falling; Z91.048 Other nonmedicinal substance allergy status; Z79.01 Long term (current) use of anticoagulants; Z79.82 Long term (current) use of aspirin; Z79.899 Other long term (current) drug therapy; Z82.49 Family history of ischemic heart disease and other diseases of the circulatory system; Z82.62 Family history of osteoporosis; Z81.8 Family history of other mental and behavioral disorders; Z90.49 Acquired absence of other specified parts of digestive tract; Z98.890 Other specified postprocedural states; Z90.710 Acquired absence of both cervix and uterus
CPT/HCPCS: 36415; 70450; 70496; 70498; 70553; 71046; 80053; 80061; 82550; 82553; 83036; 83090; 84484; 85025; 85610; 85730; 93005; 94640; 99285

== ENCOUNTER 2018-05-29 08:25 | Inpatient (IN) | payer MEDICARE ==
[2018-05-29] MEDS ORDERED: IBUPROFEN 600 MG TAB PO STA (08:34)
[2018-05-29] MEDS ORDERED: ACETAMINOPHEN TAB 500 MG TAB PO STA (08:34)
--- NOTE | 2018-05-29 08:39 | ED ---
General Adult HPI - General Stated complaint: altered Time Seen by Provider: 05/29/18 08:25 Source: RN notes reviewed - History of Present Illness Initial comments: This is a 62-year-old female with past medical history of a stroke with some right-sided residual deficit according to EMS. Their original call was for stroke when they arrived the stated that she seemed to be more altered than normal and having a little right-sided facial droop. According to EMS when they arrived patient had no facial droop and was slow to answer questions and having some inappropriate word choice when answering the questions but according to the when they asked he stated that was her baseline. EMS was unsure exactly how she was altered when discussing with the but they brought the patient to the emergency department. Patient is unable to explain why she has come to the emergency department today she indicated that she has abdominal pain but stated she always has. Per EMS there is no complaints of chest pain or shortness of breath. But the patient is extremely poor historian questions have been asked multiple times for her to respond in the accuracy of these responsiveness is unclear. No other history is available this time is not the room at this time - Related Data Home Medications Medication Instructions Recorded Confirmed Aspirin 81 mg PO DAILY@0900 11/08/13 05/29/18 Baclofen [Lioresal] 10 mg PO DAILY@169911/08/13 05/29/18 Citalopram Hydrobromide [CeleXA] 40 mg PO HS@2100 11/08/13 05/29/18 Ferrous Sulfate [Feosol] 325 mg PO DAILY@169911/08/13 05/29/18 Fexofenadine HCl [Mimi Allergy] 180 mg PO DAILY@169911/08/13 05/29/18 Furosemide [Lasix] 40 mg PO BID@0900,0 11/08/13 05/29/18 Montelukast [Singulair] 10 mg PO DAILY@169911/08/13 05/29/18 Nitroglycerin Sl Tabs [Nitrostat] 0.4 mg SUBLINGUAL Q5M PRN 11/08/13 05/29/18 Pantoprazole Sodium [Protonix] 40 mg PO DAILY@0600 11/08/13 05/29/18 Potassium Chloride 20 meq PO BID@0900,169911/08/13 05/29/18 Cholecalciferol [Vitamin D3] 2,000 unit PO DAILY@0900 11/18/15 05/29/18 Fluticasone Nasal [place] [Flonase 1 spray EA NOSTRIL DAILY@0900 11/18/15 05/29/18 Nasal [place]] Methylphenidate HCl [Ritalin] 20 mg PO BID@0900,1200 11/18/15 05/29/18 Pravastatin Sodium [Pravachol] 20 mg PO HS@2100 11/18/15 05/29/18 fentaNYL [Fentanyl] 25 mcg TRANSDERM Q72H PRN 11/18/15 05/29/18 Pregabalin [Lyrica] 100 mg PO TID@0900,1700,2100 07/13/16 05/29/18 Folic Acid 0.4 mg PO DAILY@0900 08/18/16 05/29/18 Dimethyl Fumarate [Tecfidera] 240 mg PO BID@0900,2100 04/04/18 05/29/18 Levothyroxine Sodium [Synthroid] 50 mcg PO DAILY 05/29/18 05/29/18 Previous Rx's Medication Instructions Recorded Warfarin Sodium [Coumadin] 5 mg PO DAILY #30 tablet 04/30/18 Allergies Allergy/AdvReac Type Severity Reaction Status Date / Time adhesive Allergy SKIN Verified 05/29/18 09:02 PEELING Review of Systems ROS Statement: Those systems with pertinent positive or pertinent negative responses have been documented in the HPI. ROS Other: All systems not noted in ROS Statement are negative. Past Medical History Past Medical History: Chest Pain / Angina, CVA/TIA, Fibromyalgia, Musculoskeletal Disorder, Neurologic Disorder, Osteoarthritis (OA), Pulmonary Embolus (PE), Sleep Apnea/CPAP/BIPAP, Thyroid Disorder Additional Past Medical History / Comment(s): MULTIPLE SCLEROSIS, HX OF CVA 2006 WITH R SIDED WEAKNESS AND DYSPHASIA-MUCH IMPROVED, MIGRAINES, SLEEP APNEA( HAS C-PAP MACHINE BUT DOES NOT USE) ABD HERNIA,CHRONIC PAIN ESPECIALLY ON R SIDE OF BODY AND LOW BACK . PAINFUL FOR HER TO LIE FLAT. HX OF NOSEBLEED JUL 2014 AND RECEIVED PLASMA TRANSFUSION. takes pills with applesauce. History of Any Multi-Drug Resistant Organisms: VRE Date of last positivie culture/infection: 10/24/09 confirmed with infectious disease nurse on 08/18/16. MDRO Source:: URINE Past Surgical History: Appendectomy, Cholecystectomy, Hysterectomy Additional Past Surgical History / Comment(s): Incisional hernia repair, laparoscopic lysis of adhesions in 1987, ganglion cyst removal of the left wrist , patent foramen ovale patch in 2006, RF ablation for back pain. Past Anesthesia/Blood Transfusion Reactions: No Reported Reaction Past Psychological History: Depression Additional Psychological History / Comment(s): CELEXA. PT HAS DIFFICULTY W/ SPEECH BUT IS MUCH IMPROVED. HAS TO LOOK AT DIETARY MENU TO ORDER CAN'T DO IT BY PHONE. Pt resides with her spouse. She uses a cane to ambulate. She also has a walker. Spouse drives her to appointments. Spouse assists her with some ADLs when needed. Smoking Status: Never smoker Past Alcohol Use History: None Reported Past Drug Use History: None Reported Additional Drug Use History / Comment(s): Lives at home with her requires some assistance with ADLs at times - Past Family History Mother Family Medical History: Hypertension Additional Family Medical History / Comment(s): osteoporosis Father Family Medical History: Dementia General Exam - General Exam Comments Initial Comments: GENERAL: Patient is well-developed and well-nourished. Patient is nontoxic and well- hydrated and is in mild distress. ENT: Neck is soft and supple. No significant lymphadenopathy is noted. Oropharynx is clear. Moist mucous membranes. Neck has full range of motion without eliciting any pain. EYES: The sclera were anicteric and conjunctiva were pink and moist. Extraocular movements were intact and pupils were equal round and reactive to light. Eyelids were unremarkable. PULMONARY: Unlabored respirations. Good breath sounds bilaterally. No audible rales rhonchi or wheezing was noted. CARDIOVASCULAR: There is a regular rate and rhythm without any murmurs gallops or rubs. ABDOMEN: Abdomen had diffuse tenderness with some suprapubic fullness. No palpable organomegaly was noted. There is no palpable pulsatile mass. SKIN: Skin is clear with no lesions or rashes and otherwise unremarkable. NEUROLOGIC: Patient is alert and oriented difficult to assess since patient is unable to express herself accurately consistently. Cranial nerves II through XII are grossly intact. Patient has weakness of the right arm relative to the left and weakness of the right monument letterer relative to the left. Strength in legs were equal bilaterally. Normal speech, volume and content. Symmetrical smile. MUSCULOSKELETAL: Normal extremities with adequate strength and full range of motion. No lower extremity swelling or edema. No calf tenderness. LYMPHATICS: No significant lymphadenopathy is noted PSYCHIATRIC: Normal psychiatric evaluation. Course Vital Signs 05/29/18 08:43 Temperature 101.0 F H Pulse Rate 84 Respiratory 18 Rate Blood Pressure 132/55 O2 Sat by Pulse 96 Oximetry Medical Decision Making - Medical Decision Making arrived and stated the patient was vomiting last night and throughout the night a few times. stated this morning she was extremely weak and was difficult to get her to the bathroom because of her weakness. stated he thought he might have seen some left-sided facial weakness drooping but when she got set up straight by EMS he did not appreciate any at that time. stated that the says she wanted to go to the hospital but did not indicate why. I went back in to the room and reevaluated the patient. Plan to the room the patient was sleeping and has his stated that she is been there she is not indicated to him in any way that there was any problem. patient's cranial nerves were fully intact there is no facial droop was there and he agreed with this. Patient had normal strength on the left arm and bilateral legs however the right arm didn't seem to have a little weakness compared to the left and the stated this was normal. Chest x-ray shows no acute abnormality. I spoke with Dr. Paredes he agreed to admit the patient admitted the patient. Patient's EKG showed normal sinus rhythm at 75 bpm NE interval is 158 QRS is 70 QT interval 458 QTC is 511. Patient's EKG shows no ST segment elevation or depression or T wave abnormalities are noted. - Lab Data Result diagrams: 05/29/18 08:40 05/29/18 08:40 Lab Results 05/29/18 05/29/18 05/29/18 Range/Units 08:40 08:40 08:40 WBC 2.0 L (3.8-10.6) k/uL RBC 4.48 (3.80-5.40) m/uL Hgb 13.5 (11.4-16.0) gm/dL Hct 42.3 (34.0-46.0) % MCV 94.4 (80.0-100.0) fL MCH 30.2 (25.0-35.0) pg MCHC 32.0 (31.0-37.0) g/dL RDW 15.6 H (11.5-15.5) % Plt Count 124 L (150-450) k/uL Neutrophils % (Manual) 74 % Lymphocytes % (Manual) 7 % Monocytes % (Manual) 18 % Eosinophils % (Manual) 1 % Neutrophils # (Manual) 1.48 (1.3-7.7) k/uL Lymphocytes # (Manual) 0.14 L (1.0-4.8) k/uL Monocytes # (Manual) 0.36 (0-1.0) k/uL Eosinophils # (Manual) 0.02 (0-0.7) k/uL Nucleated RBCs 0 (0-0) /100 WBC PT (9.0-12.0) sec INR (<1.2) APTT (22.0-30.0) sec Sodium 144 (137-145) mmol/L Potassium 3.4 L (3.5-5.1) mmol/L Chloride 110 H (98-107) mmol/L Carbon Dioxide 23 (22-30) mmol/L Anion Gap 11 mmol/L BUN 25 H (7-17) mg/dL Creatinine 0.99 (0.52-1.04) mg/dL Est GFR (CKD-EPI)AfAm 70 (>60 ml/min/1.73 sqM) Est GFR (CKD-EPI)NonAf 61 (>60 ml/min/1.73 sqM) Glucose 183 H (74-99) mg/dL Plasma Lactic Acid Simone (0.7-2.0) mmol/L Calcium 8.6 (8.4-10.2) mg/dL Total Bilirubin 0.9 (0.2-1.3) mg/dL AST 20 (14-36) U/L ALT 40 (9-52) U/L Alkaline Phosphatase 66 (38-126) U/L Total Creatine Kinase <20 L (30-135) U/L CK-MB (CK-2) <0.2 (0.0-2.4) ng/mL CK-MB (CK-2) Rel Index Troponin I <0.012 (0.000-0.034) ng/mL Total Protein 5.9 L (6.3-8.2) g/dL Albumin 3.7 (3.5-5.0) g/dL Urine Color Urine Appearance (Clear) Urine pH (5.0-8.0) Ur Specific [place] (1.001-1.035) Urine Protein (Negative) Urine Glucose (UA) (Negative) Urine Ketones (Negative) Urine Blood (Negative) Urine Nitrite (Negative) Urine Bilirubin (Negative) Urine Urobilinogen (<2.0) mg/dL Ur Leukocyte Esterase (Negative) Influenza Type A RNA (Not Detectd) Influenza Type B (PCR) (Not Detectd) 05/29/18 05/29/18 05/29/18 Range/Units 08:40 08:40 08:40 WBC (3.8-10.6) k/uL RBC (3.80-5.40) m/uL Hgb (11.4-16.0) gm/dL Hct (34.0-46.0) % MCV (80.0-100.0) fL MCH (25.0-35.0) pg MCHC (31.0-37.0) g/dL RDW (11.5-15.5) % Plt Count (150-450) k/uL Neutrophils % (Manual) % Lymphocytes % (Manual) % Monocytes % (Manual) % Eosinophils % (Manual) % Neutrophils # (Manual) (1.3-7.7) k/uL Lymphocytes # (Manual) (1.0-4.8) k/uL Monocytes # (Manual) (0-1.0) k/uL Eosinophils # (Manual) (0-0.7) k/uL Nucleated RBCs (0-0) /100 WBC PT 17.7 H (9.0-12.0) sec INR 1.9 H (<1.2) APTT 28.0 (22.0-30.0) sec Sodium (137-145) mmol/L Potassium (3.5-5.1) mmol/L Chloride (98-107) mmol/L Carbon Dioxide (22-30) mmol/L Anion Gap mmol/L BUN (7-17) mg/dL Creatinine (0.52-1.04) mg/dL Est GFR (CKD-EPI)AfAm (>60 ml/min/1.73 sqM) Est GFR (CKD-EPI)NonAf (>60 ml/min/1.73 sqM) Glucose (74-99) mg/dL Plasma Lactic Acid Simone 1.6 (0.7-2.0) mmol/L Calcium (8.4-10.2) mg/dL Total Bilirubin (0.2-1.3) mg/dL AST (14-36) U/L ALT (9-52) U/L Alkaline Phosphatase (38-126) U/L Total Creatine Kinase (30-135) U/L CK-MB (CK-2) (0.0-2.4) ng/mL CK-MB (CK-2) Rel Index Troponin I (0.000-0.034) ng/mL Total Protein (6.3-8.2) g/dL Albumin (3.5-5.0) g/dL Urine Color Urine Appearance (Clear) Urine pH (5.0-8.0) Ur Specific [place] (1.001-1.035) Urine Protein (Negative) Urine Glucose (UA) (Negative) Urine Ketones (Negative) Urine Blood (Negative) Urine Nitrite (Negative) Urine Bilirubin (Negative) Urine Urobilinogen (<2.0) mg/dL Ur Leukocyte Esterase (Negative) Influenza Type A RNA Not Detected (Not Detectd) Influenza Type B (PCR) Not Detected (Not Detectd) 05/29/18 Range/Units 08:40 WBC (3.8-10.6) k/uL RBC (3.80-5.40) m/uL Hgb (11.4-16.0) gm/dL Hct (34.0-46.0) % MCV (80.0-100.0) fL MCH (25.0-35.0) pg MCHC (31.0-37.0) g/dL RDW (11.5-15.5) % Plt Count (150-450) k/uL Neutrophils % (Manual) % Lymphocytes % (Manual) % Monocytes % (Manual) % Eosinophils % (Manual) % Neutrophils # (Manual) (1.3-7.7) k/uL Lymphocytes # (Manual) (1.0-4.8) k/uL Monocytes # (Manual) (0-1.0) k/uL Eosinophils # (Manual) (0-0.7) k/uL Nucleated RBCs (0-0) /100 WBC PT (9.0-12.0) sec INR (<1.2) APTT (22.0-30.0) sec Sodium (137-145) mmol/L Potassium (3.5-5.1) mmol/L Chloride (98-107) mmol/L Carbon Dioxide (22-30) mmol/L Anion Gap mmol/L BUN (7-17) mg/dL Creatinine (0.52-1.04) mg/dL Est GFR (CKD-EPI)AfAm (>60 ml/min/1.73 sqM) Est GFR (CKD-EPI)NonAf (>60 ml/min/1.73 sqM) Glucose (74-99) mg/dL Plasma Lactic Acid Simone (0.7-2.0) mmol/L Calcium (8.4-10.2) mg/dL Total Bilirubin (0.2-1.3) mg/dL AST (14-36) U/L ALT (9-52) U/L Alkaline Phosphatase (38-126) U/L Total Creatine Kinase (30-135) U/L CK-MB (CK-2) (0.0-2.4) ng/mL CK-MB (CK-2) Rel Index Troponin I (0.000-0.034) ng/mL Total Protein (6.3-8.2) g/dL Albumin (3.5-5.0) g/dL Urine Color Yellow Urine Appearance Clear (Clear) Urine pH 5.5 (5.0-8.0) Ur Specific [place] 1.014 (1.001-1.035) Urine Protein Negative (Negative) Urine Glucose (UA) Negative (Negative) Urine Ketones Negative (Negative) Urine Blood Negative (Negative) Urine Nitrite Negative (Negative) Urine Bilirubin Negative (Negative) Urine Urobilinogen <2.0 (<2.0) mg/dL Ur Leukocyte Esterase Negative (Negative) Influenza Type A RNA (Not Detectd) Influenza Type B (PCR) (Not Detectd) Disposition Clinical Impression: Generalized weakness, Febrile illness, Urinary retention Disposition: ADMITTED IP TO THIS HOSP Referrals: Sarah Paredes MD [Primary Care Provider] - 1-2 days Time of Disposition: 10:10
[2018-05-29 09:12] LABS: Appearance,Urine Clear (Clear); Bilirubin,Urine Negative (Negative); Blood,Urine Negative (Negative); Color,Urine Yellow; Glucose,Urine (UA) Negative (Negative); Ketones,Urine Negative (Negative); Leukocyte Esterase,Urine Negative (Negative); Nitrite,Urine Negative (Negative); PH, Urine 5.5 (5.0-8.0); Protein,Urine Negative (Negative); Specific Gravity,Urine 1.014 (1.001-1.035); Urobilinogen,Urine <2.0 mg/dL (<2.0)
[2018-05-29 09:16] LABS: INR 1.9 (<1.2); Prothrombin Time 17.7 sec (9.0-12.0)
--- NOTE | 2018-05-29 09:16 | XR ---
EXAMINATION TYPE: XR chest 2V DATE OF EXAM: 05/29/2018 COMPARISON: 04/25/2018 INDICATION: Fever TECHNIQUE: Frontal and lateral views of the chest are obtained. Despite several attempts, degree of inspiration is limited. FINDINGS: The heart size is normal. The pulmonary vasculature is normal. The lungs are clear. There is elevation of the right diaphragm is chronic. IMPRESSION: 1. No acute pulmonary process. Limited degree of inspiration.
[2018-05-29 09:17] LABS: Albumin 3.7 g/dL (3.5-5.0); Calcium 8.6 mg/dL (8.4-10.2); Potassium 3.4 mmol/L (3.5-5.1); Total Bilirubin 0.9 mg/dL (0.2-1.3); Total Protein 5.9 g/dL (6.3-8.2)
[2018-05-29 09:23] LABS: HCT 42.3 % (34.0-46.0); HGB 13.5 gm/dL (11.4-16.0); MCH 30.2 pg (25.0-35.0); MCV 94.4 fL (80.0-100.0); Mean Platelet Volume 10.7; Platelet Count 124 k/uL (150-450); RBC 4.48 m/uL (3.80-5.40); RDW 15.6 % (11.5-15.5)
[2018-05-29 09:28] LABS: Creatine Kinase <20 U/L (30-135)
[2018-05-29 09:41] LABS: Creatine Kinase MB <0.2 ng/mL (0.0-2.4); Troponin I <0.012 ng/mL (0.000-0.034)
[2018-05-29] MEDS: SODIUM CHLORIDE 0.9% 500 ML 500 ML IV SCH (09:48)
[2018-05-29 10:12] LABS: Eosinophils # (M) 0.02 k/uL (0-0.7); Lymphocytes # (M) 0.14 k/uL (1.0-4.8); Monocytes # (M) 0.36 k/uL (0-1.0); Neutrophils # (M) 1.48 k/uL (1.3-7.7); Neutrophils % (M) 74 %; Nucleated Red Blood Cells 0 /100 WBC (0-0); Total Cells Counted 100
[2018-05-29] MEDS ORDERED: SODIUM CHLORIDE 0.9% 1,000 ML IV ONE (10:12)
[2018-05-29] MEDS ORDERED: Potassium Replacement Protocol 1 EACH MISC MISCELLANE PRN (11:48)
[2018-05-29 12:44] LABS: Amylase 52 U/L (30-110); Lipase 11 U/L (23-300)
[2018-05-29] MEDS: POTASSIUM CHLORIDE 10 MEQ in WATER FOR INJECTION 1 100ML.BAG IVPB SCH ×2 (13:06→14:08)
--- NOTE | 2018-05-29 13:07 | P.HPIM ---
History of Present Illness H&P Date: 05/29/18 Chief Complaint: generalized weaknesss and fatigue This is a 62-year-old female patient presents to the emergency room with complaints of increased weakness and fatigue. Per patient's patient's guarded stating that she did not feel well yesterday. Patient progressively has become more fatigued and having increased weakness over the past 24 hours. Per patient's patient also had episode of emesis. She has a known past history of multiple sclerosis, CVA in 1999 with right-sided weakness and dysphasia, chest pain, fibromyalgia, musculoskeletal skeletal disorder, ST arthritis, pulmonary embolism in which she takes dominant, sleep apnea and thyroid disorder. Patient's last chest x-ray showing no acute pulmonary process. Limited degree of inspiration. EKG completed showing normal sinus rhythm, possible inferior infarct, age undetermined. Patient did have elevated temperature upon arrival to emergency room of 101. UA negative. Influenza negative. Urine and blood cultures have been ordered. Patient started on Rocephin. At this time patient remains very sleepy. Patient is arousable but unable to carry on conversation due to increase fatigue. Patient denies any chest pain or shortness of breath. Patient denies cough. At this time patient denies any nausea vomiting or diarrhea. Patient denies any urinary burning or frequency. Review of Systems Please refer to HPI otherwise unremarkable Past Medical History Past Medical History: Chest Pain / Angina, CVA/TIA, Fibromyalgia, Musculoskeletal Disorder, Neurologic Disorder, Osteoarthritis (OA), Pulmonary Embolus (PE), Sleep Apnea/CPAP/BIPAP, Thyroid Disorder Additional Past Medical History / Comment(s): MULTIPLE SCLEROSIS, HX OF CVA 2006 WITH R SIDED WEAKNESS AND DYSPHASIA-MUCH IMPROVED, MIGRAINES, SLEEP APNEA( HAS C-PAP MACHINE BUT DOES NOT USE) ABD HERNIA,CHRONIC PAIN ESPECIALLY ON R SIDE OF BODY AND LOW BACK . PAINFUL FOR HER TO LIE FLAT. HX OF NOSEBLEED JUL 2014 AND RECEIVED PLASMA TRANSFUSION. takes pills with applesauce. History of Any Multi-Drug Resistant Organisms: VRE Date of last positivie culture/infection: 10/24/09 confirmed with infectious disease nurse on 08/18/16. MDRO Source:: URINE Past Surgical History: Appendectomy, Cholecystectomy, Hysterectomy Additional Past Surgical History / Comment(s): Incisional hernia repair, laparoscopic lysis of adhesions in 1987, ganglion cyst removal of the left wrist , patent foramen ovale patch in 2007, RF ablation for back pain. Past Anesthesia/Blood Transfusion Reactions: No Reported Reaction Past Psychological History: Depression Additional Psychological History / Comment(s): CELEXA. PT HAS DIFFICULTY W/ SPEECH BUT IS MUCH IMPROVED. HAS TO LOOK AT DIETARY MENU TO ORDER CAN'T DO IT BY PHONE. Pt resides with her spouse. She uses a cane to ambulate. She also has a walker. Spouse drives her to appointments. Spouse assists her with some ADLs when needed. Smoking Status: Never smoker Past Alcohol Use History: None Reported Past Drug Use History: None Reported Additional Drug Use History / Comment(s): Lives at home with her requires some assistance with ADLs at times - Past Family History Mother Family Medical History: Hypertension Additional Family Medical History / Comment(s): osteoporosis Father Family Medical History: Dementia Medications and Allergies Home Medications Medication Instructions Recorded Confirmed Type Aspirin 81 mg PO DAILY@0911/08/13 05/29/18 History Baclofen [Lioresal] 10 mg PO DAILY@169911/08/13 05/29/18 History Citalopram Hydrobromide [CeleXA] 40 mg PO HS@2100 11/08/13 05/29/18 History Ferrous Sulfate [Feosol] 325 mg PO DAILY@169911/08/13 05/29/18 History Fexofenadine HCl [Mimi Allergy] 180 mg PO DAILY@169911/08/13 05/29/18 History Furosemide [Lasix] 40 mg PO BID@0900,169911/08/13 05/29/18 History Montelukast [Singulair] 10 mg PO DAILY@169911/08/13 05/29/18 History Nitroglycerin Sl Tabs [Nitrostat] 0.4 mg SUBLINGUAL Q5M PRN 11/08/13 05/29/18 History Pantoprazole Sodium [Protonix] 40 mg PO DAILY@0611/08/13 05/29/18 History Potassium Chloride 20 meq PO BID@0900,169911/08/13 05/29/18 History Cholecalciferol [Vitamin D3] 2,000 unit PO DAILY@89911/18/15 05/29/18 History Fluticasone Nasal [place] [Flonase 1 spray EA NOSTRIL DAILY@0900 11/18/15 History Nasal [place]] Methylphenidate HCl [Ritalin] 20 mg PO BID@0900,1200 11/18/15 05/29/18 History Pravastatin Sodium [Pravachol] 20 mg PO HS@2100 11/18/15 05/29/18 History fentaNYL [Fentanyl] 25 mcg TRANSDERM Q72H PRN 11/18/15 05/29/18 History Pregabalin [Lyrica] 100 mg PO TID@0900,1700,2100 07/13/16 05/29/18 History Folic Acid 0.4 mg PO DAILY@0900 08/18/16 05/29/18 History Dimethyl Fumarate [Tecfidera] 240 mg PO BID@0900,2100 04/04/18 05/29/18 History Warfarin Sodium [Coumadin] 5 mg PO DAILY #30 tablet 04/30/18 05/29/18 Rx Levothyroxine Sodium [Synthroid] 50 mcg PO DAILY 05/29/18 05/29/18 History Allergies Allergy/AdvReac Type Severity Reaction Status Date / Time adhesive Allergy SKIN Verified 05/29/18 09:02 PEELING Physical Exam Vitals: Vital Signs Temp Pulse Resp BP Pulse Ox 05/29/18 11:00 74 19 130/63 95 05/29/18 10:30 75 19 132/68 94 L 05/29/18 10:00 17 144/76 94 L 05/29/18 08:43 101.0 F H 84 18 132/55 96 05/29/18 08:31 16 132/55 95 Intake and Output 05/28/18 05/29/18 05/29/18 22:59 06:59 14:59 Output Total 600 Balance -600 Output: Urine 600 Uretheral ([place]) 600 Other: Weight 121.291 kg Head normocephalic Neck supple Lungs clear to auscultation bilaterally no wheezing or crackles Heart regular rate and rhythm S1-S2, no rub or gallop Abdomen is soft nontender nondistended positive bowel sounds no hepatosplenomegaly Extremities no edema Neuro fatigue but arousable Results CBC & Chem 7: 05/29/18 08:40 05/29/18 08:40 Labs: Abnormal Lab Results - Last 24 Hours (Table) 05/29/18 05/29/18 05/29/18 Range/Units 08:40 08:40 08:40 WBC 2.0 L (3.8-10.6) k/uL RDW 15.6 H (11.5-15.5) % Plt Count 124 L (150-450) k/uL Lymphocytes # (Manual) 0.14 L (1.0-4.8) k/uL PT (9.0-12.0) sec INR (<1.2) Potassium 3.4 L (3.5-5.1) mmol/L Chloride 110 H (98-107) mmol/L BUN 25 H (7-17) mg/dL Glucose 183 H (74-99) mg/dL Total Creatine Kinase <20 L (30-135) U/L Total Protein 5.9 L (6.3-8.2) g/dL 05/29/18 Range/Units 08:40 WBC (3.8-10.6) k/uL RDW (11.5-15.5) % Plt Count (150-450) k/uL Lymphocytes # (Manual) (1.0-4.8) k/uL PT 17.7 H (9.0-12.0) sec INR 1.9 H (<1.2) Potassium (3.5-5.1) mmol/L Chloride (98-107) mmol/L BUN (7-17) mg/dL Glucose (74-99) mg/dL Total Creatine Kinase (30-135) U/L Total Protein (6.3-8.2) g/dL Assessment and Plan Assessment: 1. Increased weakness and fatigue. Per patient's patient did have episode of emesis. Influenza negative. Amylase and lipase levels have been ordered. Abdominal ultrasound has been ordered. 2. Febrile. Patient with temp of 101. Urinary analysis negative. Chest x- ray completed showing no acute pulmonary process. Limited degree of inspiration. Blood and urine cultures have been ordered. Patient started on IV Rocephin. Dr. Glasgow consulted for infectious disease. 3. History of multiple sclerosis 4. History of PE and DVT anticoagulated with Coumadin. Coumadin resumed daily PT/INRs have been ordered. INR 1.9 5. History of CVA with known dysphasia and right-sided weakness 6. History of hyperlipidemia 7. History of fibromyalgia 8. History of depression 9. History of hypothyroidism. Synthroid resumed 10. Thrombocytopenia. Patient does follow up with oncology services outpatient. Platelets 124 DVT prophylaxis coumadin. GI prophylactic Protonix Time with Patient: Greater than 30 (Greater than 60% of the total time spent in counseling and coordination of care. I performed an examination of the patient and discussed their management with the Nurse Practitioner. I have reviewed the Nurse Practitioner's notes and agree with the documented findings and plan of care)
[2018-05-29] MEDS ORDERED: NITROGLYCERIN SL TABS 0.4 MG TAB SUBLINGUAL PRN (13:19)
[2018-05-29] MEDS ORDERED: WARFARIN 2 MG TAB PO ONE (18:00)
[2018-05-29] MEDS: BACLOFEN 10 MG TAB PO SCH (19:14)
[2018-05-29] MEDS: MONTELUKAST 10 MG TAB PO SCH (19:14)
[2018-05-29] MEDS: WARFARIN 5 MG TAB PO SCH (19:14)
[2018-05-29] MEDS: POTASSIUM CHLORIDE ER 20 MEQ TAB.ER PO SCH (19:14)
[2018-05-29] MEDS: LORATADINE 10 MG TAB PO SCH (19:14)
[2018-05-29] MEDS: FERROUS SULFATE 325 MG TAB PO SCH (19:15)
[2018-05-29] MEDS: FUROSEMIDE 40 MG TAB PO SCH (19:15)
[2018-05-29] MEDS ORDERED: ACETAMINOPHEN TAB 500 MG TAB PO PRN (20:21)
[2018-05-29] MEDS ORDERED: NON-FORMULARY DRUG (Dimethyl Fumarate [Tecfidera] 240 MG) PO SCH (21:00)
[2018-05-29] MEDS: Dimethyl Fumarate [Tecfidera] 240 MG PO SCH (22:40)
--- NOTE | 2018-05-29 23:03 | US ---
EXAMINATION TYPE: US abdomen complete DATE OF EXAM: 05/29/2018 COMPARISON: 04/07/2018 CLINICAL HISTORY: nausea and vomiting. N/V GB removed EXAM MEASUREMENTS: Liver Length: 14.8 cm CHD: 0.8 cm Spleen: 10.8 cm Right Kidney: 8.9 x 4.3 x 4.7 cm Left Kidney: 10.1 x 4.7 x 4.6 cm *Limited exam due to body habitus and patient discomfort Pancreas: Appears echogenic in appearance, limited tail visualization Liver: Limited visualization of right lobe, scanned through ribs Gallbladder: Surgically absent Evidence for sonographic Johnson's sign: neg CBD: Obscured by overlying bowel gas Spleen: wnl Right Kidney: wnl Left Kidney: wnl Upper IVC: wnl Abd Aorta: No AAA visualized IMPRESSION: NO ACUTE PROCESS.
[2018-05-29] MEDS ORDERED: IOPAMIDOL-300 CONTRAST 30 ML VIAL (ORAL USE) PO PRN (23:22)
[2018-05-29] MEDS: PRAVASTATIN SODIUM 20 MG TAB PO SCH (23:29)
--- NOTE | 2018-05-30 06:24 | CONS ---
CONSULTATION DATE OF SERVICE: 05/29/2018 REASON FOR CONSULTATION: Fever. HISTORY OF PRESENT ILLNESS: The patient is a 62-year-old female who has been brought into the ER by the with the chief complaints of increasing weakness and fatigue according to him. He was unable to get her up this morning. The patient apparently also had an episode of emesis. The patient did have significant bruise to the lower abdominal area, which she attributed to her recent admission to the hospital. The patient denies having any URI symptoms. No chest pain or shortness of breath or cough. No diarrhea or any burning or frequency of urine. With these symptoms, the patient was evaluated by the ER physician. On arrival to the ER, the patient did have a fever of 101 degrees Fahrenheit, however, the patient is afebrile afterward. The patient did have extensive workup done in the ER. She was slightly leukopenic with a white count of 2.0, however, the liver enzymes are normal. Urine was negative. Influenza PCR was negative. Chest x-ray reported to be negative: The patient did receive a dose of ceftriaxone in the ER. Subsequently has been admitted to the hospital. Infectious Disease was consulted for further recommendation regarding antibiotic therapy and her fever. REVIEW OF SYSTEMS: Positive points have been mentioned in HPI and the rest of the system has been negative. PAST MEDICAL HISTORY: CVA, TIA, fibromyalgia, osteoarthritis, pulmonary embolism, sleep apnea, hypothyroidism, multiple sclerosis. PAST SURGICAL HISTORY: Appendectomy, cholecystectomy, hysterectomy, incisional hernia repair, laparoscopic lysis of adhesion, ganglion cyst removal. SOCIAL HISTORY: No history of smoking, drinking, or drug use. She is . Lives with her . FAMILY HISTORY: Mother with history of hypertension and osteoporosis. Father history of dementia. ALLERGIES: ADHESIVE TAPE. MEDICATIONS: Medications include the patient is currently on Tylenol, aspirin, baclofen, vitamin D3, iron sulfate, Flonase, folic acid, Synthroid, Claritin, Ritalin, Singulair, Nitrostat, Protonix, K-Dur, Pravachol with one dose of Rocephin this morning. PHYSICAL EXAMINATION: On examination, blood pressure is 91/50 with a pulse of 63, temperature is 97.1, T-max 101. She is 98% on 2 L nasal cannula. General description is a middle aged female lying in bed in no distress. No tachypnea or accessory muscle of respiration use. HEENT examination shows no pallor or scleral icterus. Oral mucous membrane is dry. No pharyngeal erythema or thrush. NECK: Trachea central. No thyromegaly. LUNGS: Unlabored breathing, clear to auscultation anteriorly. No wheeze or crackle. HEART: S1, S2. Regular rate and rhythm. ABDOMEN: Soft. She did have significant bruise to lower abdominal wall, but no redness was noticed. No guarding or rigidity. EXTREMITIES: No edema feet. SKIN EXAMINATION: No rash or mass palpable. NEUROLOGICALLY: The patient is awake, alert, oriented x3. Mood and affect normal. LABS: Hemoglobin is 13.5, white count 2.0 with a BUN of 25, creatinine 0.99. Liver enzymes were normal. Urine is negative. Influenza PCR negative. Chest x-ray report negative. Ultrasound has been negative. DIAGNOSTIC IMPRESSION AND PLAN: Patient being admitted to the hospital with generalized weakness and no energy in a patient who did have a fever 101 degrees Fahrenheit in the ER. However, besides leukopenia, the rest of the workup has been negative for any infectious etiology. The patient did have significant bruise on abdominal wall with a question of possible abdominal hematoma contributing to this fever would be the likely explanation that will not be seen on an ultrasound in a patient currently with no other clinical focus of infection. PLAN: 1. We will obtain a CT of abdomen and pelvis with contrast. 2. As clinical suspicion low for any occult infection, will hold on the antibiotic therapy at this point and monitor the patient closely off antibiotic therapy. Thank you for this consultation. Will follow this patient along with you. MMODL / IJN: [id number] /
[2018-05-30] MEDS: LEVOTHYROXINE 50 MCG TAB PO SCH (06:28)
[2018-05-30] MEDS: PANTOPRAZOLE 40 MG TABLET PO SCH (06:28)
[2018-05-30 09:00] LABS: INR 2.8 (<1.2); Prothrombin Time 24.9 sec (9.0-12.0)
[2018-05-30 09:13] LABS: Albumin 2.7 g/dL (3.5-5.0); Calcium 7.6 mg/dL (8.4-10.2); Potassium 3.8 mmol/L (3.5-5.1); Total Bilirubin 0.6 mg/dL (0.2-1.3); Total Protein 4.8 g/dL (6.3-8.2)
[2018-05-30 09:17] LABS: Basophils % (A) 0 %; Eosinophils # (A) 0.1 k/uL (0-0.7); Eosinophils % (A) 4 %; HCT 34.2 % (34.0-46.0); HGB 11.5 gm/dL (11.4-16.0); Lymphocytes # (A) 0.5 k/uL (1.0-4.8); Lymphocytes % (A) 18 %; MCH 31.5 pg (25.0-35.0); MCHC 33.7 g/dL (31.0-37.0); MCV 93.6 fL (80.0-100.0); Mean Platelet Volume 8.8; Monocytes # (A) 0.2 k/uL (0-1.0); Monocytes % (A) 9 %; Neutrophils # (A) 1.6 k/uL (1.3-7.7); Neutrophils % (A) 65 %; RBC 3.66 m/uL (3.80-5.40); RDW 15.5 % (11.5-15.5); WBC 2.5 k/uL (3.8-10.6)
[2018-05-30 09:32] LABS: Platelet Count 82 k/uL (150-450)
[2018-05-30 09:33] LABS: Poikilocytosis (M) Present
--- NOTE | 2018-05-30 09:53 | P.PN ---
Subjective Progress Note Date: 05/30/18 This is a 62-year-old female patient presents to the emergency room with complaints of increased weakness and fatigue. Per patient's patient's guarded stating that she did not feel well yesterday. Patient progressively has become more fatigued and having increased weakness over the past 24 hours. Per patient's patient also had episode of emesis. She has a known past history of multiple sclerosis, CVA in 1999 with right-sided weakness and dysphasia, chest pain, fibromyalgia, musculoskeletal skeletal disorder, ST arthritis, pulmonary embolism in which she takes dominant, sleep apnea and thyroid disorder. Patient's last chest x-ray showing no acute pulmonary process. Limited degree of inspiration. EKG completed showing normal sinus rhythm, possible inferior infarct, age undetermined. Patient did have elevated temperature upon arrival to emergency room of 101. UA negative. Influenza negative. Urine and blood cultures have been ordered. Patient started on Rocephin. At this time patient remains very sleepy. Patient is arousable but unable to carry on conversation due to increase fatigue. Patient denies any chest pain or shortness of breath. Patient denies cough. At this time patient denies any nausea vomiting or diarrhea. Patient denies any urinary burning or frequency. On 05/30/2018 patient is much more alert today. At this time patient denies any cough or chest pain. Patient denies any nausea or vomiting. Patient denies any urinary burning or frequency. Dr. Glasgow following for infectious disease. CT of abdomen and pelvis has been ordered. Objective - Vital Signs Vital signs: Vital Signs Temp 97.5 F L 05/30/18 06:18 Pulse 65 05/30/18 06:18 Resp 18 05/30/18 06:18 BP 105/50 05/30/18 06:18 Pulse Ox 97 05/30/18 06:18 Intake & Output 05/29/18 05/30/18 05/30/18 18:59 06:59 18:59 Intake Total 300 Output Total 600 550 Balance -600 -250 Weight 121.291 kg 94.801 kg Intake: Oral 300 Output: Urine 600 550 Uretheral ([place]) 600 Other: Voiding Method Indwelling Catheter - Exam Head normocephalic Neck supple Lungs clear to auscultation bilaterally no wheezing or crackles Heart regular rate and rhythm S1-S2, no rub or gallop Abdomen is soft nontender nondistended positive bowel sounds no hepatosplenomegaly Extremities no edema Neuro alert and orientated to 3 - Labs CBC & Chem 7: 05/30/18 08:36 05/30/18 08:36 Labs: Abnormal Lab Results - Last 24 Hours (Table) 05/29/18 05/29/18 05/30/18 Range/Units 08:40 08:40 08:36 WBC 2.5 L (3.8-10.6) k/uL RBC 3.66 L (3.80-5.40) m/uL Plt Count 82 L (150-450) k/uL Lymphocytes # 0.5 L (1.0-4.8) k/uL Lymphocytes # (Manual) 0.14 L (1.0-4.8) k/uL PT (9.0-12.0) sec INR (<1.2) Chloride (98-107) mmol/L BUN (7-17) mg/dL Glucose (74-99) mg/dL Calcium (8.4-10.2) mg/dL Total Protein (6.3-8.2) g/dL Albumin (3.5-5.0) g/dL Lipase 11 L (23-300) U/L 05/30/18 05/30/18 Range/Units 08:36 08:36 WBC (3.8-10.6) k/uL RBC (3.80-5.40) m/uL Plt Count (150-450) k/uL Lymphocytes # (1.0-4.8) k/uL Lymphocytes # (Manual) (1.0-4.8) k/uL PT 24.9 H (9.0-12.0) sec INR 2.8 H (<1.2) Chloride 111 H (98-107) mmol/L BUN 20 H (7-17) mg/dL Glucose 105 H (74-99) mg/dL Calcium 7.6 L (8.4-10.2) mg/dL Total Protein 4.8 L (6.3-8.2) g/dL Albumin 2.7 L (3.5-5.0) g/dL Lipase (23-300) U/L Microbiology - Last 24 Hours (Table) 05/29/18 08:40 Urine Culture - Preliminary Urine,Catheterized Assessment and Plan Assessment: 1. Increased weakness and fatigue. Per patient's patient did have episode of emesis. Influenza negative. Amylase and lipase levels are within normal limits. Abdominal ultrasound completed showing no acute process. 2. Febrile. Patient with temp of 101. Urinary analysis negative. Chest x- ray completed showing no acute pulmonary process. Limited degree of inspiration. Blood and urine cultures have been ordered. Patient started on IV Rocephin. Per infectious disease will order a CT of abdomen and pelvis with contrast. At this time clinical suspicion low for infection per infectious disease will hold on antibiotic therapy at this point and monitor patient closely off antibiotics. 3. History of multiple sclerosis 4. History of PE and DVT anticoagulated with Coumadin. Coumadin resumed daily PT/INRs have been ordered. INR 2.8 5. History of CVA with known dysphasia and right-sided weakness 6. History of hyperlipidemia 7. History of fibromyalgia 8. History of depression 9. History of hypothyroidism. Synthroid resumed 10. Thrombocytopenia. Patient does follow up with oncology services outpatient. Platelets 82 Patient's Celexa, fentanyl patch and Lyrica currently on hold due to patient's increased lethargy DVT prophylaxis coumadin. GI prophylactic Protonix I performed an examination of the patient and discussed their management with the Nurse Practitioner. I have reviewed the Nurse Practitioner's notes and agree with the documented findings and plan of care
[2018-05-30] MEDS: POTASSIUM CHLORIDE ER 20 MEQ TAB.ER PO SCH ×2 (10:15→17:06)
[2018-05-30] MEDS: FUROSEMIDE 40 MG TAB PO SCH ×2 (10:15→17:05)
[2018-05-30] MEDS: ASPIRIN 81 MG PO SCH (10:16)
[2018-05-30] MEDS: CHOLECALCIFEROL 1,000 UNIT TAB PO SCH (10:16)
[2018-05-30] MEDS: Dimethyl Fumarate [Tecfidera] 240 MG PO SCH ×2 (10:16→21:35)
[2018-05-30] MEDS: FOLIC ACID 1 MG TAB PO SCH (10:16)
[2018-05-30] MEDS: METHYLPHENIDATE HCL 10 MG TAB PO SCH ×2 (10:25→12:53)
--- NOTE | 2018-05-30 17:04 | CT ---
EXAMINATION TYPE: CT abdomen pelvis w con DATE OF EXAM: 05/30/2018 COMPARISON: Ultrasound 05/29/[address] 11/18/2014 HISTORY: 62-year-old female abdominal pain bilaterally. Fever, question abdominal wall hematoma. TECHNIQUE: Contiguous axial scanning of the abdomen and pelvis following administration of 100 ml Iso christa 300 IV contrast. Delayed images through the kidneys and coronal/sagittal reconstructions perform ed. CT DLP: 2043.4 mGycm Automated exposure control for dose reduction was used. FINDINGS: Heart normal size without pericardial effusion. PFO closure device is demonstrated. Volume loss with atelectasis at the right base and elevation of the right hemidiaphragm similar to pr ior. Patchy atelectasis and scarring at the posterior left base as well. Tiny hiatal hernia. Liver mildly enlarged at 18.5 cm. No focal lesion seen. Portal venous system is patent. No biliary du ctal dilatation. Tiny diverticulum of the second portion of the duodenum projecting into the pancreat ic head region. Cholecystectomy clips. Adrenal glands and left kidney within normal limits. Pancreas is atrophic. Possible nodular area at the junction of the pancreatic tail and body, axial im age 29 and coronal image 52 represent an area of prominent pancreatic tissue rather than mass. Short interval follow-up is recommended. No dilated small bowel, free fluid, or free air. No mesenteric or retroperitoneal lymphadenopathy. Surgical clips in the right lower quadrant relating to prior appendectomy. Oral contrast progressed i nto the ascending colon. There is mild overall burden. Sigmoid colon is redundant. No pericolonic inf lammatory change. Prominent fecal material distending the rectum up to 7.2 cm wide. Circumferential bladder wall thickening. Bladder is collapsed with some nondependent intraluminal air and Ackerman catheter in place. No abnormal fluid collection in the pelvis or pelvic lymphadenopathy. P hleboliths in the left side of the pelvis. Bones: Degenerative changes at the hips. Facet arthropathy lower lumbar spine. Degenerative disc dise ase L5-S1. IMPRESSION: 1. PROMINENT FECAL DISTENTION OF THE RECTUM UP TO 7.2 CM WIDE. QUERY ANY CONSTIPATION OR FECAL IMPACT ION. 2. CIRCUMFERENTIAL BLADDER WALL THICKENING COULD REPRESENT CHRONIC BLADDER WALL HYPERTROPHY OR CYSTIT IS. CLINICALLY CORRELATE. THE BLADDER IS DECOMPRESSED BY ACKERMAN CATHETER. 3. A NODULAR AREA MEASURING 1.5 CM AT THE JUNCTION OF THE PANCREATIC BODY AND TAIL COULD REPRESENT AN ISLAND OF PROMINENT PANCREATIC TISSUE ON A BACKGROUND OF PANCREATIC ATROPHY. RECOMMEND 3 MONTH FOLLO W-UP CT TO EXCLUDE THE POSSIBILITY OF A SMALL EARLY MASS. CORRELATION WITH TUMOR MARKERS WOULD ALSO B E REASSURING. 4. THE PROVIDED HISTORY IS THAT OF POSSIBLE ABDOMINAL WALL HEMATOMA. THE EXAM CAN BE REVIEWED WITH DI RECTED ATTENTION IF THERE IS CONCERN FOR A MISSED FINDING.
[2018-05-30] MEDS: FLUTICASONE 50MCG/SPRAY NASAL 16GM EA NOSTRIL SCH (17:05)
[2018-05-30] MEDS: LORATADINE 10 MG TAB PO SCH (17:05)
[2018-05-30] MEDS: FERROUS SULFATE 325 MG TAB PO SCH (17:05)
[2018-05-30] MEDS: PREGABALIN 100 MG CAP PO SCH ×2 (17:06→21:38)
[2018-05-30] MEDS: WARFARIN 5 MG TAB PO SCH (17:06)
[2018-05-30] MEDS: BACLOFEN 10 MG TAB PO SCH (17:06)
[2018-05-30] MEDS: MONTELUKAST 10 MG TAB PO SCH (17:06)
[2018-05-30] MEDS ORDERED: NA PHOS,M-B/NA PHOS,DI-BA 133 ML ENEMA RECTAL ONE ×2 (18:15→21:00)
[2018-05-30] MEDS: CITALOPRAM HYDROBROMIDE 20 MG TAB PO SCH (21:35)
[2018-05-30] MEDS: PRAVASTATIN SODIUM 20 MG TAB PO SCH (21:35)
[2018-05-30] MEDS: metroNIDAZOLE 500 MG TAB PO SCH (21:38)
--- NOTE | 2018-05-30 22:36 | PN ---
PROGRESS NOTE DATE OF SERVICE: 05/30/2018 REASON FOR FOLLOWUP: Fever, possible abdominal source. INTERVAL HISTORY: The patient was seen on rounds this afternoon. The patient has been afebrile. The patient denies having any chest pain or shortness of breath or cough. No nausea, vomiting, abdominal pain, and no diarrhea. Rather, the patient is constipated. PHYSICAL EXAMINATION: Blood pressure 138/62 with a pulse of 78, temperature 97.9. She is 97% on room air. General description is a middle-aged female lying in bed in no distress. RESPIRATORY SYSTEM: Unlabored breathing. Clear to auscultation anteriorly. HEART: S1, S2. Regular rate and rhythm. ABDOMEN: Soft. No tenderness. Mildly distended. No guarding or rigidity. LABS: Hemoglobin is 11.5, white count 2.5, BUN of 20, creatinine 0.92. DIAGNOSTIC IMPRESSION AND PLAN: Patient with a fever; concern for possible abdominal source, as the patient did have slight distention and tenderness. CT of abdomen and pelvis is suspicious for a significant fecal impaction and constipation. She will be started on Rocephin and Flagyl to cover for possible abdominal raven while waiting for the culture to finalize and her condition to stabilize. Continue with supportive care. MMODL / IJN: [id number] /
[2018-05-31] MEDS: LEVOTHYROXINE 50 MCG TAB PO SCH (06:12)
[2018-05-31] MEDS: PANTOPRAZOLE 40 MG TABLET PO SCH (06:12)
[2018-05-31] MEDS: ASPIRIN 81 MG PO SCH (10:18)
[2018-05-31] MEDS: CHOLECALCIFEROL 1,000 UNIT TAB PO SCH (10:18)
[2018-05-31] MEDS: METHYLPHENIDATE HCL 10 MG TAB PO SCH ×2 (10:18→12:53)
[2018-05-31] MEDS: PREGABALIN 100 MG CAP PO SCH ×3 (10:19→20:05)
[2018-05-31] MEDS: FOLIC ACID 1 MG TAB PO SCH (10:19)
[2018-05-31] MEDS: FLUTICASONE 50MCG/SPRAY NASAL 16GM EA NOSTRIL SCH (10:19)
[2018-05-31] MEDS: metroNIDAZOLE 500 MG TAB PO SCH ×3 (10:19→22:47)
[2018-05-31] MEDS: POTASSIUM CHLORIDE ER 20 MEQ TAB.ER PO SCH ×2 (10:19→16:13)
[2018-05-31] MEDS: FUROSEMIDE 40 MG TAB PO SCH ×2 (10:19→16:13)
[2018-05-31] MEDS: Dimethyl Fumarate [Tecfidera] 240 MG PO SCH ×2 (10:20→20:06)
--- NOTE | 2018-05-31 10:31 | P.PN ---
Subjective Progress Note Date: 05/31/18 This is a 62-year-old female patient presents to the emergency room with complaints of increased weakness and fatigue. Per patient's patient's guarded stating that she did not feel well yesterday. Patient progressively has become more fatigued and having increased weakness over the past 24 hours. Per patient's patient also had episode of emesis. She has a known past history of multiple sclerosis, CVA in 1999 with right-sided weakness and dysphasia, chest pain, fibromyalgia, musculoskeletal skeletal disorder, ST arthritis, pulmonary embolism in which she takes dominant, sleep apnea and thyroid disorder. Patient's last chest x-ray showing no acute pulmonary process. Limited degree of inspiration. EKG completed showing normal sinus rhythm, possible inferior infarct, age undetermined. Patient did have elevated temperature upon arrival to emergency room of 101. UA negative. Influenza negative. Urine and blood cultures have been ordered. Patient started on Rocephin. At this time patient remains very sleepy. Patient is arousable but unable to carry on conversation due to increase fatigue. Patient denies any chest pain or shortness of breath. Patient denies cough. At this time patient denies any nausea vomiting or diarrhea. Patient denies any urinary burning or frequency. On 05/30/2018 patient is much more alert today. At this time patient denies any cough or chest pain. Patient denies any nausea or vomiting. Patient denies any urinary burning or frequency. Dr. Glasgow following for infectious disease. CT of abdomen and pelvis has been ordered. On 05/31/2018 patient is feeling much improved today. Patient remains alert, patient has been afebrile. This time patient denies any chest pain or shortness of breath. Patient denies nausea vomiting or diarrhea. Patient denies any urinary burning or frequency. Objective - Vital Signs Vital signs: Vital Signs Temp 98.7 F 05/31/18 07:15 Pulse 71 05/31/18 07:15 Resp 16 05/31/18 07:15 BP 114/46 05/31/18 07:15 Pulse Ox 95 05/31/18 07:15 Intake & Output 05/30/18 05/31/18 05/31/18 18:59 06:59 18:59 Intake Total 800 Output Total 2125 300 Balance -1325 -300 Intake: Intake, IV Titration 800 Amount Sodium Chloride 0.9% 1, 800 000 ml @ 100 mls/hr IV . Q10H ONE Rx#:[id number] Oral 0 Output: Urine 2125 300 Other: Voiding Method Indwelling Catheter Indwelling Catheter Indwelling Catheter # Bowel Movements 1 1 - Exam Head normocephalic Neck supple Lungs clear to auscultation bilaterally no wheezing or crackles Heart regular rate and rhythm S1-S2, no rub or gallop Abdomen is soft nontender nondistended positive bowel sounds no hepatosplenomegaly Extremities no edema Neuro alert and orientated to 3 - Labs CBC & Chem 7: 05/30/18 08:36 05/30/18 08:36 Labs: Microbiology - Last 24 Hours (Table) 05/29/18 08:40 Blood Culture - Preliminary Blood No Growth after 24 hours 05/29/18 08:40 Urine Culture - Final Urine,Catheterized Assessment and Plan Assessment: 1. Increased weakness and fatigue. Per patient's patient did have episode of emesis. Influenza negative. Amylase and lipase levels are within normal limits. Abdominal ultrasound completed showing no acute process. 2. Febrile. Patient with temp of 101. Urinary analysis negative. Chest x- ray completed showing no acute pulmonary process. Limited degree of inspiration. Blood and urine cultures have been ordered. CT of the abdomen and pelvis completed showing prominent fecal distention of the rectum up to 7.7 cm wide. Any constipation or fecal impaction. Per nursing staff patient did have large BM this a.m. her infectious disease patient was started on Rocephin and Flagyl to cover for possible abdominal fluoroscopy awaiting the culture to finalize. Blood culture currently showing no growth. Urine culture currently showing no growth. 3. History of multiple sclerosis 4. History of PE and DVT anticoagulated with Coumadin. Coumadin resumed daily PT/INRs have been ordered. INR 2.8 5. History of CVA with known dysphasia and right-sided weakness 6. History of hyperlipidemia 7. History of fibromyalgia 8. History of depression 9. History of hypothyroidism. Synthroid resumed 10. Thrombocytopenia. Patient does follow up with oncology services outpatient. Platelets 82 11. Bladder wall thickening. CT of abdomen showing circumferential bladder wall thickening could represent chronic bladder wall hypertrophy or cystitis. Clinically correlate. The bladder is decompressed by Vasques catheter. Dr. Grider has been consulted for urology services 12. Pancreatic nodule. CT of abdomen showing a nodule area measuring 1.5 cm the junction of the pancreatic body and tail could represent an island of pulmonary pancreatic tissue on a background of pancreatic atrophy. Recommend three-month follow-up CT to exclude the possibility of a small early metastases. Correlation with tumor markers could also be reassuring. MRI of the pancreas has been ordered. Patient's fentynal patch currently on hold due to increased lethargy DVT prophylaxis coumadin. GI prophylactic Protonix I performed an examination of the patient and discussed their management with the Nurse Practitioner. I have reviewed the Nurse Practitioner's notes and agree with the documented findings and plan of care
[2018-05-31 11:34] LABS: Basophils % (A) 0 %; Eosinophils # (A) 0.1 k/uL (0-0.7); Eosinophils % (A) 5 %; HCT 33.4 % (34.0-46.0); HGB 11.8 gm/dL (11.4-16.0); Lymphocytes # (A) 0.4 k/uL (1.0-4.8); Lymphocytes % (A) 17 %; MCH 32.3 pg (25.0-35.0); MCHC 35.3 g/dL (31.0-37.0); MCV 91.5 fL (80.0-100.0); Mean Platelet Volume 9.7; Monocytes # (A) 0.2 k/uL (0-1.0); Monocytes % (A) 7 %; Neutrophils # (A) 1.5 k/uL (1.3-7.7); Neutrophils % (A) 66 %; RBC 3.65 m/uL (3.80-5.40); WBC 2.2 k/uL (3.8-10.6)
[2018-05-31 11:36] LABS: Calcium 8.1 mg/dL (8.4-10.2); Potassium 3.6 mmol/L (3.5-5.1); Total Bilirubin 0.4 mg/dL (0.2-1.3); Total Protein 5.1 g/dL (6.3-8.2)
[2018-05-31 11:47] LABS: INR 3.5 (<1.2); Prothrombin Time 31.7 sec (9.0-12.0)
[2018-05-31 11:52] LABS: Platelet Count 94 k/uL (150-450)
[2018-05-31] MEDS: BACLOFEN 10 MG TAB PO SCH (16:13)
[2018-05-31] MEDS: FERROUS SULFATE 325 MG TAB PO SCH (16:13)
[2018-05-31] MEDS: LORATADINE 10 MG TAB PO SCH (16:13)
[2018-05-31] MEDS: MONTELUKAST 10 MG TAB PO SCH (16:13)
[2018-05-31] MEDS ORDERED: WARFARIN 0.5 MG TAB PO ONE (18:00)
--- NOTE | 2018-05-31 18:17 | MR ---
EXAMINATION TYPE: MR pancreas wo con DATE OF EXAM: 05/31/2018 COMPARISON: None HISTORY: Abd pain, weakness, F/U on nodule Standard multiplanar, multisequence MRI departmental protocol Multiplanar, multisequence images of the abdomen were acquired. FINDINGS: Liver shows no focal defect. Bile ducts are not dilated. There is no evidence of a splenic mass. There is a 1 senators cyst anterior spleen. There is no adrenal mass. Kidneys have normal size and contour. There is no hydronephrosis. There is 1 cm cortical cyst lower pole right kidney. There i s no evidence of retroperitoneal adenopathy. There is no ascites. There are some tortuosity of the sp lenic vein. There is minimal bilobed nodularity near the tail of the pancreas but no discrete mass identified. Pa ncreatic duct is not dilated. There is mild pancreatic atrophy. IMPRESSION: The exam fails to demonstrate any suspicious pancreatic mass. There is probably some pancreatic atrop hy. No dilated ducts.
--- NOTE | 2018-05-31 18:50 | P.GSCN ---
History of Present Illness Consult date: 05/31/18 Reason for Consult: Bladder wall thickening on computed tomography scan Requesting physician: Elin Morel History of present illness: The patient is a 62-year-old white female with a history of multiple sclerosis. She sustained a CVA in 1999 with right-sided weakness and dysphasia. She has an unremarkable urologic history. Specifically, she denies dysuria, hematuria, and urinary incontinence. She states that she has not been treated for UTIs or urolithiasis. She has been noted to have a fever of unknown origin. A computed tomography scan of the abdomen and pelvis was obtained, revealing bladder wall thickening. I am consulted for this reason. Review of Systems - Constitutional Reports fever - Cardiovascular Denies chest pain, Denies shortness of breath - Gastrointestinal Denies nausea, Denies vomiting - Genitourinary Genitourinary: Denies dysuria, Denies hematuria Past Medical History Past Medical History: Chest Pain / Angina, CVA/TIA, Fibromyalgia, Musculoskeletal Disorder, Neurologic Disorder, Osteoarthritis (OA), Pulmonary Embolus (PE), Sleep Apnea/CPAP/BIPAP, Thyroid Disorder Additional Past Medical History / Comment(s): MULTIPLE SCLEROSIS, HX OF CVA 2006 WITH R SIDED WEAKNESS AND DYSPHASIA-MUCH IMPROVED, MIGRAINES, SLEEP APNEA( HAS C-PAP MACHINE BUT DOES NOT USE) ABD HERNIA,CHRONIC PAIN ESPECIALLY ON R SIDE OF BODY AND LOW BACK . PAINFUL FOR HER TO LIE FLAT. HX OF NOSEBLEED JUL 2014 AND RECEIVED PLASMA TRANSFUSION. takes pills with applesauce. 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 MDRO Source:: URINE Past Surgical History: Appendectomy, Cholecystectomy, Hysterectomy Additional Past Surgical History / Comment(s): Incisional hernia repair, laparoscopic lysis of adhesions in 1987, ganglion cyst removal of the left wrist , patent foramen ovale patch in 2006, RF ablation for back pain. Past Anesthesia/Blood Transfusion Reactions: No Reported Reaction Smoking Status: Never smoker - Past Family History Mother Family Medical History: Hypertension Additional Family Medical History / Comment(s): osteoporosis Father Family Medical History: Dementia Medications and Allergies Home Medications Medication Instructions Recorded Confirmed Type Aspirin 81 mg PO DAILY@0900 11/08/13 05/29/18 History Baclofen [Lioresal] 10 mg PO DAILY@1700 11/08/13 05/29/18 History Citalopram Hydrobromide [CeleXA] 40 mg PO HS@209911/08/13 05/29/18 History Ferrous Sulfate [Feosol] 325 mg PO DAILY@169911/08/13 05/29/18 History Fexofenadine HCl [Mimi Allergy] 180 mg PO DAILY@169911/08/13 05/29/18 History Furosemide [Lasix] 40 mg PO BID@0900,1700 11/08/13 05/29/18 History Montelukast [Singulair] 10 mg PO DAILY@169911/08/13 05/29/18 History Nitroglycerin Sl Tabs [Nitrostat] 0.4 mg SUBLINGUAL Q5M PRN 11/08/13 05/29/18 History Pantoprazole Sodium [Protonix] 40 mg PO DAILY@0600 11/08/13 05/29/18 History Potassium Chloride 20 meq PO BID@0900,1700 11/08/13 05/29/18 History Cholecalciferol [Vitamin D3] 2,000 unit PO DAILY@0900 11/18/15 05/29/18 History Fluticasone Nasal [place] [Flonase 1 spray EA NOSTRIL DAILY@0911/18/15 History Nasal [place]] Methylphenidate HCl [Ritalin] 20 mg PO BID@0900,1200 11/18/15 05/29/18 History Pravastatin Sodium [Pravachol] 20 mg PO HS@209911/18/15 05/29/18 History fentaNYL [Fentanyl] 25 mcg TRANSDERM Q72H PRN 11/18/15 05/29/18 History Pregabalin [Lyrica] 100 mg PO TID@0900,1700,209907/13/16 05/29/18 History Folic Acid 0.4 mg PO DAILY@0900 08/18/16 05/29/18 History Dimethyl Fumarate [Tecfidera] 240 mg PO BID@0900,2100 04/04/18 05/29/18 History Warfarin Sodium [Coumadin] 5 mg PO DAILY #30 tablet 04/30/18 05/29/18 Rx Levothyroxine Sodium [Synthroid] 50 mcg PO DAILY 05/29/18 05/29/18 History Allergies Allergy/AdvReac Type Severity Reaction Status Date / Time adhesive Allergy SKIN Verified 05/29/18 09:02 [facility] - Exam Vital Signs Resp BP Pulse Ox 16 132/55 95 05/29/18 08:31 05/29/18 08:31 05/29/18 08:31 - General well developed, well nourished, no distress - Respiratory normal respiratory effort - Abdomen Abdomen: soft, tender (Lower abdominal tenderness to palpation is noted), no guarding, no rigid, no rebound, no distended Results - Labs 05/31/18 10:36 05/31/18 10:36 Abnormal Lab Results - Last 24 Hours (Table) 05/31/18 05/31/18 05/31/18 Range/Units 10:36 10:36 10:36 WBC 2.2 L (3.8-10.6) k/uL RBC 3.65 L (3.80-5.40) m/uL Hct 33.4 L (34.0-46.0) % Plt Count 94 L (150-450) k/uL Lymphocytes # 0.4 L (1.0-4.8) k/uL PT 31.7 H (9.0-12.0) sec INR 3.5 H (<1.2) Chloride 112 H (98-107) mmol/L Glucose 111 H (74-99) mg/dL Calcium 8.1 L (8.4-10.2) mg/dL Total Protein 5.1 L (6.3-8.2) g/dL Albumin 3.0 L (3.5-5.0) g/dL Microbiology - Last 24 Hours (Table) 05/29/18 08:40 Blood Culture - Preliminary Blood No Growth after 48 hours 05/29/18 08:40 Urine Culture - Final Urine,Catheterized Diabetes panel 05/31/18 Range/Units 10:36 Sodium 143 (137-145) mmol/L Potassium 3.6 (3.5-5.1) mmol/L Chloride 112 H (98-107) mmol/L Carbon Dioxide 22 (22-30) mmol/L BUN 10 (7-17) mg/dL Creatinine 0.84 (0.52-1.04) mg/dL Glucose 111 H (74-99) mg/dL Calcium 8.1 L (8.4-10.2) mg/dL AST 19 (14-36) U/L ALT 33 (9-52) U/L Alkaline Phosphatase 56 (38-126) U/L Total Protein 5.1 L (6.3-8.2) g/dL Albumin 3.0 L (3.5-5.0) g/dL Calcium panel 05/31/18 Range/Units 10:36 Calcium 8.1 L (8.4-10.2) mg/dL Albumin 3.0 L (3.5-5.0) g/dL Pituitary panel 05/31/18 Range/Units 10:36 Sodium 143 (137-145) mmol/L Potassium 3.6 (3.5-5.1) mmol/L Chloride 112 H (98-107) mmol/L Carbon Dioxide 22 (22-30) mmol/L BUN 10 (7-17) mg/dL Creatinine 0.84 (0.52-1.04) mg/dL Glucose 111 H (74-99) mg/dL Calcium 8.1 L (8.4-10.2) mg/dL Adrenal panel 05/31/18 Range/Units 10:36 Sodium 143 (137-145) mmol/L Potassium 3.6 (3.5-5.1) mmol/L Chloride 112 H (98-107) mmol/L Carbon Dioxide 22 (22-30) mmol/L BUN 10 (7-17) mg/dL Creatinine 0.84 (0.52-1.04) mg/dL Glucose 111 H (74-99) mg/dL Calcium 8.1 L (8.4-10.2) mg/dL Total Bilirubin 0.4 (0.2-1.3) mg/dL AST 19 (14-36) U/L ALT 33 (9-52) U/L Alkaline Phosphatase 56 (38-126) U/L Total Protein 5.1 L (6.3-8.2) g/dL Albumin 3.0 L (3.5-5.0) g/dL - Imaging CT scan - abdomen: report reviewed, image reviewed CT scan - pelvis: report reviewed, image reviewed Assessment and Plan (1) Abnormal radiologic findings on diagnostic imaging of renal pelvis, ureter, or bladder Current Visit: Yes Status: Acute Code(s): R93.41 - ABN RADLGC FIND ON DX IMAGING RENAL PELV, URETER, OR BLDDR SNOMED Code(s): 463792839 Plan: I reviewed the CT scan. Mild bladder wall thickening is noted, which is diffuse and nonspecific given the fact that the bladder is decompressed due to a Vasques catheter. I explained to the patient that bladder imaging studies are not particularly accurate, and that cystoscopy is the diagnostic study of choice to rule out intravesical pathology. It would be my recommendation that the catheter be removed when no longer medically needed. The patient shall be given an appointment to follow-up with me upon discharge for outpatient cystoscopy. Please notify me if I can be of any further assistance during this hospitalization. Time with Patient: Greater than 30
[2018-05-31] MEDS: PRAVASTATIN SODIUM 20 MG TAB PO SCH (20:05)
[2018-05-31] MEDS: CITALOPRAM HYDROBROMIDE 20 MG TAB PO SCH (20:05)
--- NOTE | 2018-05-31 23:49 | PN ---
PROGRESS NOTE DATE OF SERVICE: 05/31/2018 REASON FOR FOLLOWUP: Fever, possible abdominal source. INTERVAL HISTORY: The patient's fever has resolved. The patient has been breathing comfortably. Denies having any chest pain or cough. The patient did have a large bowel movement, but no nausea or vomiting. PHYSICAL EXAMINATION: Blood pressure 112/58 with a pulse of 84, temperature 97.9. She is 94% on room air. General description is a middle-aged female lying in bed in no distress. RESPIRATORY SYSTEM: Unlabored breathing. Clear to auscultation anteriorly. HEART: S1, S2. Regular rate and rhythm. ABDOMEN: Soft. No tenderness. No guarding or rigidity. LABS: Hemoglobin is 11.9, white count 2.2 with a BUN of 10, creatinine 0.84. DIAGNOSTIC IMPRESSION AND PLAN: Patient admitted to hospital with a fever with concern for possible abdominal source, as patient has been noted to have significant distention of the rectum and constipation; seems to have relieved. She was given medication yesterday. She is currently on Rocephin and Flagyl. To continue for a short course while waiting for the culture to finalize. Continue with supportive care. MMODL / IJN: [id number] /
[2018-06-01] MEDS: LEVOTHYROXINE 50 MCG TAB PO SCH (05:54)
[2018-06-01] MEDS: PANTOPRAZOLE 40 MG TABLET PO SCH (05:54)
[2018-06-01 09:52] LABS: Basophils % (A) 0 %; Eosinophils # (A) 0.1 k/uL (0-0.7); Eosinophils % (A) 4 %; HCT 33.4 % (34.0-46.0); HGB 11.4 gm/dL (11.4-16.0); Lymphocytes # (A) 0.5 k/uL (1.0-4.8); Lymphocytes % (A) 21 %; MCHC 34.1 g/dL (31.0-37.0); Mean Platelet Volume 9.8; Monocytes # (A) 0.2 k/uL (0-1.0); Monocytes % (A) 8 %; Neutrophils # (A) 1.5 k/uL (1.3-7.7); Neutrophils % (A) 63 %; RBC 3.67 m/uL (3.80-5.40); RDW 14.8 % (11.5-15.5); WBC 2.4 k/uL (3.8-10.6)
[2018-06-01 09:56] LABS: Platelet Count 95 k/uL (150-450)
[2018-06-01 10:00] LABS: INR 2.9 (<1.2); Prothrombin Time 25.6 sec (9.0-12.0)
[2018-06-01] MEDS: FOLIC ACID 1 MG TAB PO SCH (10:00)
[2018-06-01] MEDS: Dimethyl Fumarate [Tecfidera] 240 MG PO SCH ×2 (10:00→21:48)
[2018-06-01] MEDS: metroNIDAZOLE 500 MG TAB PO SCH ×3 (10:00→21:48)
[2018-06-01] MEDS: FLUTICASONE 50MCG/SPRAY NASAL 16GM EA NOSTRIL SCH (10:00)
[2018-06-01] MEDS: FUROSEMIDE 40 MG TAB PO SCH ×2 (10:00→16:45)
[2018-06-01] MEDS: POTASSIUM CHLORIDE ER 20 MEQ TAB.ER PO SCH ×2 (10:00→16:45)
[2018-06-01] MEDS: ASPIRIN 81 MG PO SCH (10:00)
[2018-06-01 10:01] LABS: Calcium 8.5 mg/dL (8.4-10.2); Potassium 3.2 mmol/L (3.5-5.1); Total Bilirubin 0.4 mg/dL (0.2-1.3); Total Protein 5.1 g/dL (6.3-8.2)
[2018-06-01] MEDS: CHOLECALCIFEROL 1,000 UNIT TAB PO SCH (10:02)
[2018-06-01] MEDS: METHYLPHENIDATE HCL 10 MG TAB PO SCH ×2 (10:05→12:18)
[2018-06-01] MEDS: PREGABALIN 100 MG CAP PO SCH ×3 (10:05→21:47)
[2018-06-01] MEDS ORDERED: Potassium Replacement Protocol 1 EACH MISC MISCELLANE PRN (12:10)
--- NOTE | 2018-06-01 12:14 | P.PN ---
Subjective Progress Note Date: 06/01/18 This is a 62-year-old female patient presents to the emergency room with complaints of increased weakness and fatigue. Per patient's patient's guarded stating that she did not feel well yesterday. Patient progressively has become more fatigued and having increased weakness over the past 24 hours. Per patient's patient also had episode of emesis. She has a known past history of multiple sclerosis, CVA in 1999 with right-sided weakness and dysphasia, chest pain, fibromyalgia, musculoskeletal skeletal disorder, ST arthritis, pulmonary embolism in which she takes dominant, sleep apnea and thyroid disorder. Patient's last chest x-ray showing no acute pulmonary process. Limited degree of inspiration. EKG completed showing normal sinus rhythm, possible inferior infarct, age undetermined. Patient did have elevated temperature upon arrival to emergency room of 101. UA negative. Influenza negative. Urine and blood cultures have been ordered. Patient started on Rocephin. At this time patient remains very sleepy. Patient is arousable but unable to carry on conversation due to increase fatigue. Patient denies any chest pain or shortness of breath. Patient denies cough. At this time patient denies any nausea vomiting or diarrhea. Patient denies any urinary burning or frequency. On 05/30/2018 patient is much more alert today. At this time patient denies any cough or chest pain. Patient denies any nausea or vomiting. Patient denies any urinary burning or frequency. Dr. Glasgow following for infectious disease. CT of abdomen and pelvis has been ordered. On 05/31/2018 patient is feeling much improved today. Patient remains alert, patient has been afebrile. This time patient denies any chest pain or shortness of breath. Patient denies nausea vomiting or diarrhea. Patient denies any urinary burning or frequency. On 06/01/2018 patient is currently resting in bed. Patient is more sleepy today than yesterday. Patient remains afebrile. Patient denies chest pain or shortness of breath. Patient denies nausea vomiting or diarrhea. Patient denies any urinary burning or frequency Objective - Vital Signs Vital signs: Vital Signs Temp 98.5 F 06/01/18 07:25 Pulse 64 06/01/18 07:25 Resp 16 06/01/18 07:25 BP 112/56 06/01/18 07:25 Pulse Ox 92 L 06/01/18 07:25 Intake & Output 05/31/18 06/01/18 06/01/18 18:59 06:59 18:59 Intake Total 200 Output Total 1400 1400 Balance -1200 -1400 Intake: Oral 200 Output: Urine 1400 1400 Other: Voiding Method Indwelling Catheter Indwelling Catheter - Exam Head normocephalic Neck supple Lungs clear to auscultation bilaterally no wheezing or crackles Heart regular rate and rhythm S1-S2, no rub or gallop Abdomen is soft nontender nondistended positive bowel sounds no hepatosplenomegaly Extremities no edema Neuro alert and orientated to 3 - Labs CBC & Chem 7: 06/01/18 08:37 06/01/18 08:37 Labs: Abnormal Lab Results - Last 24 Hours (Table) 06/01/18 06/01/18 06/01/18 Range/Units 08:37 08:37 08:37 WBC 2.4 L (3.8-10.6) k/uL RBC 3.67 L (3.80-5.40) m/uL Hct 33.4 L (34.0-46.0) % Plt Count 95 L (150-450) k/uL Lymphocytes # 0.5 L (1.0-4.8) k/uL PT 25.6 H (9.0-12.0) sec INR 2.9 H (<1.2) Potassium 3.2 L (3.5-5.1) mmol/L Chloride 109 H (98-107) mmol/L Total Protein 5.1 L (6.3-8.2) g/dL Albumin 3.0 L (3.5-5.0) g/dL Microbiology - Last 24 Hours (Table) 05/29/18 08:40 Blood Culture - Preliminary Blood No Growth after 72 hours Assessment and Plan Assessment: 1. Increased weakness and fatigue. Per patient's patient did have episode of emesis. Influenza negative. Amylase and lipase levels are within normal limits. Abdominal ultrasound completed showing no acute process. 2. Febrile. Patient with temp of 101. Urinary analysis negative. Chest x- ray completed showing no acute pulmonary process. Limited degree of inspiration. Blood and urine cultures have been ordered. CT of the abdomen and pelvis completed showing prominent fecal distention of the rectum up to 7.7 cm wide. Any constipation or fecal impaction. Per nursing staff patient did have large BM this a.m. her infectious disease patient was started on Rocephin and Flagyl to cover for possible abdominal fluoroscopy awaiting the culture to finalize. Blood culture currently showing no growth. Urine culture currently showing no growth. Patient remains on Rocephin and Flagyl for antibiotics per infectious disease. Awaiting IDs final recommendation for antibiotics 3. History of multiple sclerosis 4. History of PE and DVT anticoagulated with Coumadin. Coumadin resumed daily PT/INRs have been ordered. INR 2.9 5. History of CVA with known dysphasia and right-sided weakness 6. History of hyperlipidemia 7. History of fibromyalgia 8. History of depression 9. History of hypothyroidism. Synthroid resumed 10. Thrombocytopenia. Patient does follow up with oncology services outpatient. Platelets 82 11. Bladder wall thickening. CT of abdomen showing circumferential bladder wall thickening could represent chronic bladder wall hypertrophy or cystitis. Clinically correlate. The bladder is decompressed by Vasques catheter. Dr. Grider has been consulted for urology services. Per urology services : Cathetered patient to follow-up outpatient for possible cystoscopy. 12. Pancreatic nodule. CT of abdomen showing a nodule area measuring 1.5 cm the junction of the pancreatic body and tail could represent an island of pulmonary pancreatic tissue on a background of pancreatic atrophy. Recommend three-month follow-up CT to exclude the possibility of a small early metastases. Correlation with tumor markers could also be reassuring. MRI of the pancreas completed showing no suspicious pancreatic mass. There is probably some pancreatic atrophy. No dilated ducts. Patient's fentynal patch currently on hold due to increased lethargy DVT prophylaxis coumadin. GI prophylactic Protonix I performed an examination of the patient and discussed their management with the Nurse Practitioner. I have reviewed the Nurse Practitioner's notes and agree with the documented findings and plan of care
[2018-06-01] MEDS ORDERED: POTASSIUM CHLORIDE ER 20 MEQ TAB.ER PO SCH (13:00)
[2018-06-01] MEDS: MONTELUKAST 10 MG TAB PO SCH (16:45)
[2018-06-01] MEDS: LORATADINE 10 MG TAB PO SCH (16:45)
[2018-06-01] MEDS: FERROUS SULFATE 325 MG TAB PO SCH (16:45)
[2018-06-01] MEDS: BACLOFEN 10 MG TAB PO SCH (16:45)
[2018-06-01] MEDS ORDERED: WARFARIN 2 MG TAB PO ONE (18:00)
[2018-06-01] MEDS: PRAVASTATIN SODIUM 20 MG TAB PO SCH (21:47)
[2018-06-01] MEDS: CITALOPRAM HYDROBROMIDE 20 MG TAB PO SCH (21:48)
--- NOTE | 2018-06-01 23:23 | PN ---
PROGRESS NOTE DATE OF SERVICE: 06/01/2018. REASON FOR FOLLOWUP: Fever, possible abdominal source. INTERVAL HISTORY: The patient is afebrile, she has been breathing comfortably. Denies significant chest pain or cough. She did have a bowel movement today. . EXAMINATION: Blood pressure 113/73 with a pulse of 69, temperature 97.8. She is 97% on room air. General description is a middle-aged female lying in bed in no distress. Respiratory system: Unlabored breathing. Clear to auscultation anteriorly. Heart S1, S2. Regular rate and rhythm. Abdomen soft. No tenderness. LABS: BUN of 8, creatinine 0.86, hemoglobin is 11.4, white count 2.4. DIAGNOSTIC IMPRESSION AND PLAN: Patient with fever source is possible abdominal and the patient did have significant constipation, and distention of the rectum. The patient is currently covered with Rocephin and Flagyl to continue for short course and continue supportive care. MMODL / IJN: [id number] /
[2018-06-02] MEDS: PANTOPRAZOLE 40 MG TABLET PO SCH (06:38)
[2018-06-02] MEDS: LEVOTHYROXINE 50 MCG TAB PO SCH (06:38)
[2018-06-02] MEDS: metroNIDAZOLE 500 MG TAB PO SCH ×3 (09:17→21:20)
[2018-06-02] MEDS: ASPIRIN 81 MG PO SCH (09:17)
[2018-06-02] MEDS: FUROSEMIDE 40 MG TAB PO SCH ×2 (09:17→16:08)
[2018-06-02] MEDS: Dimethyl Fumarate [Tecfidera] 240 MG PO SCH ×2 (09:18→21:20)
[2018-06-02] MEDS: FOLIC ACID 1 MG TAB PO SCH (09:18)
[2018-06-02] MEDS: CHOLECALCIFEROL 1,000 UNIT TAB PO SCH (09:18)
[2018-06-02] MEDS: POTASSIUM CHLORIDE ER 20 MEQ TAB.ER PO SCH ×3 (09:18→19:00)
[2018-06-02] MEDS: FLUTICASONE 50MCG/SPRAY NASAL 16GM EA NOSTRIL SCH (09:18)
[2018-06-02 09:19] LABS: Basophils % (A) 0 %; Eosinophils # (A) 0.1 k/uL (0-0.7); Eosinophils % (A) 3 %; HCT 35.1 % (34.0-46.0); HGB 12.1 gm/dL (11.4-16.0); Lymphocytes # (A) 0.5 k/uL (1.0-4.8); Lymphocytes % (A) 17 %; MCH 31.3 pg (25.0-35.0); MCHC 34.4 g/dL (31.0-37.0); MCV 90.9 fL (80.0-100.0); Mean Platelet Volume 10.1; Monocytes # (A) 0.2 k/uL (0-1.0); Monocytes % (A) 7 %; Neutrophils % (A) 69 %; Platelet Count 104 k/uL (150-450); RBC 3.86 m/uL (3.80-5.40); RDW 14.9 % (11.5-15.5); WBC 2.9 k/uL (3.8-10.6)
[2018-06-02] MEDS: PREGABALIN 100 MG CAP PO SCH ×3 (09:21→21:20)
[2018-06-02] MEDS: METHYLPHENIDATE HCL 10 MG TAB PO SCH ×2 (09:21→12:26)
[2018-06-02 09:29] LABS: Calcium 8.8 mg/dL (8.4-10.2); Potassium 3.3 mmol/L (3.5-5.1); Total Bilirubin 0.5 mg/dL (0.2-1.3); Total Protein 5.1 g/dL (6.3-8.2)
[2018-06-02 09:34] LABS: INR 2.2 (<1.2); Prothrombin Time 19.9 sec (9.0-12.0)
--- NOTE | 2018-06-02 13:54 | P.PN ---
Subjective Progress Note Date: 06/02/18 This is a 62-year-old female patient presents to the emergency room with complaints of increased weakness and fatigue. Per patient's patient's guarded stating that she did not feel well yesterday. Patient progressively has become more fatigued and having increased weakness over the past 24 hours. Per patient's patient also had episode of emesis. She has a known past history of multiple sclerosis, CVA in 1999 with right-sided weakness and dysphasia, chest pain, fibromyalgia, musculoskeletal skeletal disorder, ST arthritis, pulmonary embolism in which she takes dominant, sleep apnea and thyroid disorder. Patient's last chest x-ray showing no acute pulmonary process. Limited degree of inspiration. EKG completed showing normal sinus rhythm, possible inferior infarct, age undetermined. Patient did have elevated temperature upon arrival to emergency room of 101. UA negative. Influenza negative. Urine and blood cultures have been ordered. Patient started on Rocephin. At this time patient remains very sleepy. Patient is arousable but unable to carry on conversation due to increase fatigue. Patient denies any chest pain or shortness of breath. Patient denies cough. At this time patient denies any nausea vomiting or diarrhea. Patient denies any urinary burning or frequency. On 05/30/2018 patient is much more alert today. At this time patient denies any cough or chest pain. Patient denies any nausea or vomiting. Patient denies any urinary burning or frequency. Dr. Glasgow following for infectious disease. CT of abdomen and pelvis has been ordered. On 05/31/2018 patient is feeling much improved today. Patient remains alert, patient has been afebrile. This time patient denies any chest pain or shortness of breath. Patient denies nausea vomiting or diarrhea. Patient denies any urinary burning or frequency. On 06/01/2018 patient is currently resting in bed. Patient is more sleepy today than yesterday. Patient remains afebrile. Patient denies chest pain or shortness of breath. Patient denies nausea vomiting or diarrhea. Patient denies any urinary burning or frequency On 06/02/2018 patient is alert and oriented 3 in no apparent distress she is afebrile, she is having significant difficulty with urinary retention she had multiple straight cath with large amount of urine in the bladder, at this time patient is refusing Vasques catheter she is stating that she if she is given enough time on the commode she will be able to urinate. Nurse will monitor closely if patient is unable to urinate until this evening will reinsert Vasques catheter, urology consult is also following. Objective - Vital Signs Vital signs: Vital Signs Temp 97.3 F L 06/02/18 06:10 Pulse 61 06/02/18 06:10 Resp 20 06/02/18 06:10 BP 108/54 06/02/18 06:10 Pulse Ox 94 L 06/02/18 06:10 Intake & Output 06/01/18 06/02/18 06/02/18 18:59 06:59 18:59 Intake Total 400 300 Output Total 2700 2100 61 Balance -2300 -1800 -61 Intake: Oral 400 300 Output: Urine 2700 2100 Straight 1100 700 Uretheral (Vasques) 500 Post Void Residual 61 Other: Voiding Method Indwelling Catheter Bedside Commode # Voids 2 # Bowel Movements 1 - Exam Head normocephalic and atraumatic Neck supple no JVD no goiter Lungs clear to auscultation bilaterally no wheezing or crackles Heart regular rate and rhythm S1-S2, no rub or gallop Abdomen is soft nontender nondistended positive bowel sounds no hepatosplenomegaly Extremities no edema, no cyanosis or clubbing Neuro alert and orientated to 3 - Labs CBC & Chem 7: 06/02/18 08:16 06/02/18 08:16 Labs: Abnormal Lab Results - Last 24 Hours (Table) 06/02/18 06/02/18 06/02/18 Range/Units 08:16 08:16 08:16 WBC 2.9 L (3.8-10.6) k/uL Plt Count 104 L (150-450) k/uL Lymphocytes # 0.5 L (1.0-4.8) k/uL PT 19.9 H (9.0-12.0) sec INR 2.2 H (<1.2) Potassium 3.3 L (3.5-5.1) mmol/L Glucose 116 H (74-99) mg/dL Total Protein 5.1 L (6.3-8.2) g/dL Albumin 3.0 L (3.5-5.0) g/dL Microbiology - Last 24 Hours (Table) 05/29/18 08:40 Blood Culture - Preliminary Blood No Growth after 96 hours Assessment and Plan Plan: 1. Increased weakness and fatigue. Per patient's patient did have episode of emesis. Influenza negative. Amylase and lipase levels are within normal limits. Abdominal ultrasound completed showing no acute process. 2. Febrile. Patient with temp of 101. Urinary analysis negative. Chest x- ray completed showing no acute pulmonary process. Limited degree of inspiration. Blood and urine cultures have been ordered. CT of the abdomen and pelvis completed showing prominent fecal distention of the rectum up to 7.7 cm wide. Any constipation or fecal impaction. Per nursing staff patient did have large BM this a.m. her infectious disease patient was started on Rocephin and Flagyl to cover for possible abdominal fluoroscopy awaiting the culture to finalize. Blood culture currently showing no growth. Urine culture currently showing no growth. Patient remains on Rocephin and Flagyl for antibiotics per infectious disease. Awaiting IDs final recommendation for antibiotics 3. History of multiple sclerosis 4. History of PE and DVT anticoagulated with Coumadin. Coumadin resumed daily PT/INRs have been ordered. INR 2.9 5. History of CVA with known dysphasia and right-sided weakness 6. History of hyperlipidemia 7. History of fibromyalgia 8. History of depression 9. History of hypothyroidism. Synthroid resumed 10. Thrombocytopenia. Patient does follow up with oncology services outpatient. Platelets 82 11. Bladder wall thickening. CT of abdomen showing circumferential bladder wall thickening could represent chronic bladder wall hypertrophy or cystitis. Clinically correlate. The bladder is decompressed by Vasques catheter. Dr. Grider has been consulted for urology services. Per urology services : Cathetered patient to follow-up outpatient for possible cystoscopy. Patient is having significant difficulty with urinary retention she had multiple straight cath in the last 24 hours currently she is refusing Vasques catheter she is stating that she will be able to urinate if she given enough time on the commode , nurse instructed to wait till this evening and assess if patient is able to urinate on her own otherwise reinsert Vasques catheter. 12. Pancreatic nodule. CT of abdomen showing a nodule area measuring 1.5 cm the junction of the pancreatic body and tail could represent an island of pulmonary pancreatic tissue on a background of pancreatic atrophy. Recommend three-month follow-up CT to exclude the possibility of a small early metastases. Correlation with tumor markers could also be reassuring. MRI of the pancreas completed showing no suspicious pancreatic mass. There is probably some pancreatic atrophy. No dilated ducts. Patient's fentynal patch currently on hold due to increased lethargy DVT prophylaxis coumadin. GI prophylactic Protonix
[2018-06-02] MEDS: BACLOFEN 10 MG TAB PO SCH (16:08)
[2018-06-02] MEDS: LORATADINE 10 MG TAB PO SCH (16:08)
[2018-06-02] MEDS: MONTELUKAST 10 MG TAB PO SCH (16:08)
[2018-06-02] MEDS: FERROUS SULFATE 325 MG TAB PO SCH (16:08)
[2018-06-02] MEDS ORDERED: WARFARIN 5 MG TAB PO ONE (18:00)
[2018-06-02] MEDS ORDERED: Potassium Replacement Protocol 1 EACH MISC MISCELLANE PRN (18:11)
[2018-06-02] MEDS: CITALOPRAM HYDROBROMIDE 20 MG TAB PO SCH (21:20)
[2018-06-02] MEDS: PRAVASTATIN SODIUM 20 MG TAB PO SCH (21:20)
[2018-06-03] MEDS: LEVOTHYROXINE 50 MCG TAB PO SCH (06:22)
[2018-06-03] MEDS: PANTOPRAZOLE 40 MG TABLET PO SCH (06:23)
[2018-06-03 09:07] LABS: Prothrombin Time 17.8 sec (9.0-12.0)
[2018-06-03] MEDS: FLUTICASONE 50MCG/SPRAY NASAL 16GM EA NOSTRIL SCH (09:12)
[2018-06-03] MEDS: Dimethyl Fumarate [Tecfidera] 240 MG PO SCH ×2 (09:12→21:50)
[2018-06-03] MEDS: ASPIRIN 81 MG PO SCH (09:13)
[2018-06-03] MEDS: FUROSEMIDE 40 MG TAB PO SCH ×2 (09:13→17:31)
[2018-06-03] MEDS: CHOLECALCIFEROL 1,000 UNIT TAB PO SCH (09:13)
[2018-06-03] MEDS: POTASSIUM CHLORIDE ER 20 MEQ TAB.ER PO SCH ×2 (09:13→17:30)
[2018-06-03] MEDS: metroNIDAZOLE 500 MG TAB PO SCH ×3 (09:13→21:51)
[2018-06-03] MEDS: METHYLPHENIDATE HCL 10 MG TAB PO SCH ×2 (09:13→13:35)
[2018-06-03] MEDS: PREGABALIN 100 MG CAP PO SCH ×3 (09:13→21:59)
[2018-06-03] MEDS: FOLIC ACID 1 MG TAB PO SCH (09:13)
--- NOTE | 2018-06-03 14:48 | P.PN ---
Subjective Progress Note Date: 06/03/18 This is a 62-year-old female patient presents to the emergency room with complaints of increased weakness and fatigue. Per patient's patient's guarded stating that she did not feel well yesterday. Patient progressively has become more fatigued and having increased weakness over the past 24 hours. Per patient's patient also had episode of emesis. She has a known past history of multiple sclerosis, CVA in 1999 with right-sided weakness and dysphasia, chest pain, fibromyalgia, musculoskeletal skeletal disorder, ST arthritis, pulmonary embolism in which she takes dominant, sleep apnea and thyroid disorder. Patient's last chest x-ray showing no acute pulmonary process. Limited degree of inspiration. EKG completed showing normal sinus rhythm, possible inferior infarct, age undetermined. Patient did have elevated temperature upon arrival to emergency room of 101. UA negative. Influenza negative. Urine and blood cultures have been ordered. Patient started on Rocephin. At this time patient remains very sleepy. Patient is arousable but unable to carry on conversation due to increase fatigue. Patient denies any chest pain or shortness of breath. Patient denies cough. At this time patient denies any nausea vomiting or diarrhea. Patient denies any urinary burning or frequency. On 05/30/2018 patient is much more alert today. At this time patient denies any cough or chest pain. Patient denies any nausea or vomiting. Patient denies any urinary burning or frequency. Dr. Glasgow following for infectious disease. CT of abdomen and pelvis has been ordered. On 05/31/2018 patient is feeling much improved today. Patient remains alert, patient has been afebrile. This time patient denies any chest pain or shortness of breath. Patient denies nausea vomiting or diarrhea. Patient denies any urinary burning or frequency. On 06/01/2018 patient is currently resting in bed. Patient is more sleepy today than yesterday. Patient remains afebrile. Patient denies chest pain or shortness of breath. Patient denies nausea vomiting or diarrhea. Patient denies any urinary burning or frequency On 06/02/2018 patient is alert and oriented 3 in no apparent distress she is afebrile, she is having significant difficulty with urinary retention she had multiple straight cath with large amount of urine in the bladder, at this time patient is refusing Vasques catheter she is stating that she if she is given enough time on the commode she will be able to urinate. Nurse will monitor closely if patient is unable to urinate until this evening will reinsert Vasques catheter, urology consult is also following. On 06/03/2018 patient is alert and oriented 3 in no apparent distress, there is no fever or chills no headache or dizziness no chest pain no shortness of breath no cough no nausea or vomiting no abdominal pain, no diarrhea, no burning with urination no frequency or urgency, patient is able to empty her bladder, she needs to sit for a prolonged period of time on the commode to achieve that. Objective - Vital Signs Vital signs: Vital Signs Temp 98.4 F 06/03/18 06:00 Pulse 93 06/03/18 06:00 Resp 20 06/03/18 06:00 BP 114/70 06/03/18 06:00 Pulse Ox 93 L 06/03/18 06:00 Intake & Output 06/02/18 06/03/18 06/03/18 18:59 06:59 18:59 Intake Total 100 200 Output Total 161 900 Balance -161 -800 200 Intake: Oral 100 200 Output: Urine 100 900 Post Void Residual 61 Other: Voiding Method Toilet # Bowel Movements 1 - Exam Head normocephalic and atraumatic Neck supple no JVD no goiter Lungs clear to auscultation bilaterally no wheezing or crackles Heart regular rate and rhythm S1-S2, no rub or gallop Abdomen is soft nontender nondistended positive bowel sounds no hepatosplenomegaly Extremities no edema, no cyanosis or clubbing Neuro alert and orientated to 3 - Labs CBC & Chem 7: 06/02/18 08:16 06/03/18 08:21 Labs: Abnormal Lab Results - Last 24 Hours (Table) 06/03/18 Range/Units 08:21 PT 17.8 H (9.0-12.0) sec INR 2.0 H (<1.2) Microbiology - Last 24 Hours (Table) 05/29/18 08:40 Blood Culture - Preliminary Blood No Growth after 120 hours Assessment and Plan Plan: 1. Increased weakness and fatigue. Per patient's patient did have episode of emesis. Influenza negative. Amylase and lipase levels are within normal limits. Abdominal ultrasound completed showing no acute process. 2. Febrile. Patient with temp of 101. Urinary analysis negative. Chest x- ray completed showing no acute pulmonary process. Limited degree of inspiration. Blood and urine cultures have been ordered. CT of the abdomen and pelvis completed showing prominent fecal distention of the rectum up to 7.7 cm wide. Any constipation or fecal impaction. Per nursing staff patient did have large BM this a.m. her infectious disease patient was started on Rocephin and Flagyl to cover for possible abdominal fluoroscopy awaiting the culture to finalize. Blood culture currently showing no growth. Urine culture currently showing no growth. Patient remains on Rocephin and Flagyl for antibiotics per infectious disease. Awaiting IDs final recommendation for antibiotics 3. History of multiple sclerosis 4. History of PE and DVT anticoagulated with Coumadin. Coumadin resumed daily PT/INRs have been ordered. INR 2.9 5. History of CVA with known dysphasia and right-sided weakness 6. History of hyperlipidemia 7. History of fibromyalgia 8. History of depression 9. History of hypothyroidism. Synthroid resumed 10. Thrombocytopenia. Patient does follow up with oncology services outpatient. Platelets 82 11. Bladder wall thickening. CT of abdomen showing circumferential bladder wall thickening could represent chronic bladder wall hypertrophy or cystitis. Clinically correlate. The bladder is decompressed by Vasques catheter. Dr. Grider has been consulted for urology services. Per urology services : Cathetered patient to follow-up outpatient for possible cystoscopy. Patient is having significant difficulty with urinary retention she had multiple straight cath in the last 24 hours currently she is refusing Vasques catheter she is stating that she will be able to urinate if she given enough time on the commode , nurse instructed to wait till this evening and assess if patient is able to urinate on her own otherwise reinsert Vasques catheter. 12. Pancreatic nodule. CT of abdomen showing a nodule area measuring 1.5 cm the junction of the pancreatic body and tail could represent an island of pulmonary pancreatic tissue on a background of pancreatic atrophy. Recommend three-month follow-up CT to exclude the possibility of a small early metastases. Correlation with tumor markers could also be reassuring. MRI of the pancreas completed showing no suspicious pancreatic mass. There is probably some pancreatic atrophy. No dilated ducts. Patient's fentynal patch currently on hold due to increased lethargy DVT prophylaxis coumadin. GI prophylactic Protonix
[2018-06-03] MEDS: LORATADINE 10 MG TAB PO SCH (17:30)
[2018-06-03] MEDS: FERROUS SULFATE 325 MG TAB PO SCH (17:30)
[2018-06-03] MEDS: MONTELUKAST 10 MG TAB PO SCH (17:30)
[2018-06-03] MEDS: BACLOFEN 10 MG TAB PO SCH (17:30)
[2018-06-03] MEDS ORDERED: WARFARIN 3 MG TAB PO ONE (18:00)
[2018-06-03] MEDS: CITALOPRAM HYDROBROMIDE 20 MG TAB PO SCH (21:51)
[2018-06-03] MEDS: PRAVASTATIN SODIUM 20 MG TAB PO SCH (21:51)
--- NOTE | 2018-06-03 22:34 | PN ---
PROGRESS NOTE DATE OF SERVICE: 06/03/2018. REASON FOR FOLLOW UP: Fever, possible abdominal source. INTERVAL HISTORY: The patient has been afebrile. She has been breathing comfortably. Denies any chest pain or shortness of breath or cough. No abdominal pain and did have a soft bowel movement and no diarrhea. EXAMINATION: Blood pressure 110/59 with a pulse of 55, temperature 97.6. He is 95% on room air. General description: The patient is a middle-aged female up in the room in no distress. Respiratory system: Unlabored breathing, clear to auscultation anteriorly. Heart S1, S2. Regular rate and rhythm. Abdomen soft, no tenderness. LAB: INR is 2.0, BUN of 8, creatinine 0.97. Blood culture has been negative. Urine culture negative. DIAGNOSTIC IMPRESSION AND PLAN: Patient with fever, source is possibly abdominal in this patient who did have significant constipation and distention of the rectum status post relief for constipation with overall resolution of the fever with Rocephin and Flagyl. We will consider short course of oral Ceftin and Flagyl for about 5 days with careful monitoring of INR in the outpatient setting. Continue supportive care. MMODL / IJN: [id number] /
[2018-06-03 23:20] VITALS: RESP 17
[2018-06-04] MEDS: LEVOTHYROXINE 50 MCG TAB PO SCH (06:02)
[2018-06-04] MEDS: PANTOPRAZOLE 40 MG TABLET PO SCH (06:02)
[2018-06-04 06:16] VITALS: BP 129/57; PULSE 63; TEMP 97.2
[2018-06-04] MEDS: Dimethyl Fumarate [Tecfidera] 240 MG PO SCH (10:27)
[2018-06-04] MEDS: FLUTICASONE 50MCG/SPRAY NASAL 16GM EA NOSTRIL SCH (10:27)
[2018-06-04] MEDS: POTASSIUM CHLORIDE ER 20 MEQ TAB.ER PO SCH (10:28)
[2018-06-04] MEDS: CHOLECALCIFEROL 1,000 UNIT TAB PO SCH (10:28)
[2018-06-04] MEDS: metroNIDAZOLE 500 MG TAB PO SCH (10:28)
[2018-06-04] MEDS: FUROSEMIDE 40 MG TAB PO SCH (10:28)
[2018-06-04] MEDS: ASPIRIN 81 MG PO SCH (10:29)
[2018-06-04] MEDS: FOLIC ACID 1 MG TAB PO SCH (10:29)
[2018-06-04] MEDS: PREGABALIN 100 MG CAP PO SCH (10:33)
[2018-06-04] MEDS: METHYLPHENIDATE HCL 10 MG TAB PO SCH ×2 (10:33→12:58)
[2018-06-04 11:29] LABS: Prothrombin Time 17.9 sec (9.0-12.0)
[2018-06-04 11:33] LABS: Basophils % (A) 1 %; Eosinophils # (A) 0.2 k/uL (0-0.7); Eosinophils % (A) 5 %; HCT 37.5 % (34.0-46.0); HGB 12.7 gm/dL (11.4-16.0); Lymphocytes # (A) 0.4 k/uL (1.0-4.8); Lymphocytes % (A) 13 %; MCHC 33.9 g/dL (31.0-37.0); MCV 91.3 fL (80.0-100.0); Mean Platelet Volume 10.1; Monocytes # (A) 0.2 k/uL (0-1.0); Monocytes % (A) 7 %; Neutrophils # (A) 2.3 k/uL (1.3-7.7); Neutrophils % (A) 72 %; Platelet Count 125 k/uL (150-450); RBC 4.11 m/uL (3.80-5.40); RDW 15.3 % (11.5-15.5); WBC 3.2 k/uL (3.8-10.6)
[2018-06-04 11:38] LABS: Albumin 3.3 g/dL (3.5-5.0); Calcium 9.5 mg/dL (8.4-10.2); Potassium 3.6 mmol/L (3.5-5.1); Total Bilirubin 0.2 mg/dL (0.2-1.3); Total Protein 5.4 g/dL (6.3-8.2)
--- NOTE | 2018-06-04 12:04 | P.DS ---
Providers Date of admission: 06/01/18 11:50 Expected date of discharge: 06/04/18 Attending physician: Sarah Paredes Consults: 05/29/18 13:05 Consult Physician Routine Consulting Provider: Homero Glasgow Consult Reason/Comments: febrile Do you want consulting provider notified?: Yes 05/31/18 09:43 Consult Physician Routine Consulting Provider: Rajesh Grider Consult Reason/Comments: Ct result Do you want consulting provider notified?: Yes Primary care physician: [facility] Course: Discharge diagnosis 1. Increased weakness and fatigue. Per patient's patient did have episode of emesis. Influenza negative. Amylase and lipase levels are within normal limits. Abdominal ultrasound completed showing no acute process. 2. Febrile. Patient with temp of 101. Urinary analysis negative. Chest x- ray completed showing no acute pulmonary process. Limited degree of inspiration. Blood and urine cultures have been ordered. CT of the abdomen and pelvis completed showing prominent fecal distention of the rectum up to 7.7 cm wide. Any constipation or fecal impaction. Per nursing staff patient did have large BM this a.m. her infectious disease patient was started on Rocephin and Flagyl to cover for possible abdominal fluoroscopy awaiting the culture to finalize. Blood culture currently showing no growth. Urine culture currently showing no growth. Patient remains on Rocephin and Flagyl for antibiotics per infectious disease. Patient has been cleared for discharge from infectious disease. Patient to be DC'd home on Flagyl and Ceftin for an additional 5 days 3. History of multiple sclerosis 4. History of PE and DVT anticoagulated with Coumadin. Coumadin resumed daily PT/INRs have been ordered. INR 2.9. P PT/INRs has been ordered for 2 days 5. History of CVA with known dysphasia and right-sided weakness 6. History of hyperlipidemia 7. History of fibromyalgia 8. History of depression 9. History of hypothyroidism. Synthroid resumed 10. Thrombocytopenia. Patient does follow up with oncology services outpatient. Platelets 82 11. Bladder wall thickening. CT of abdomen showing circumferential bladder wall thickening could represent chronic bladder wall hypertrophy or cystitis. Clinically correlate. The bladder is decompressed by Vasques catheter. Dr. Grider has been consulted for urology services. Per urology services : Cathetered patient to follow-up outpatient for possible cystoscopy. Patient is having significant difficulty with urinary retention she had multiple straight cath in the last 24 hours currently she is refusing Vasques catheter she is stating that she will be able to urinate if she given enough time on the commode , nurse instructed to wait till this evening and assess if patient is able to urinate on her own otherwise reinsert Vasques catheter. Per nursing staff patient has been able to void independently. Patient to follow-up outpatient with urology services for possible cystoscopy 12. Pancreatic nodule. CT of abdomen showing a nodule area measuring 1.5 cm the junction of the pancreatic body and tail could represent an island of pulmonary pancreatic tissue on a background of pancreatic atrophy. Recommend three-month follow-up CT to exclude the possibility of a small early metastases. Correlation with tumor markers could also be reassuring. MRI of the pancreas completed showing no suspicious pancreatic mass. There is probably some pancreatic atrophy. No dilated ducts. Hospital course This is a 62-year-old female patient presents to the emergency room with complaints of increased weakness and fatigue. Per patient's patient's guarded stating that she did not feel well yesterday. Patient progressively has become more fatigued and having increased weakness over the past 24 hours. Per patient's patient also had episode of emesis. She has a known past history of multiple sclerosis, CVA in 1999 with right-sided weakness and dysphasia, chest pain, fibromyalgia, musculoskeletal skeletal disorder, ST arthritis, pulmonary embolism in which she takes dominant, sleep apnea and thyroid disorder. Patient's last chest x-ray showing no acute pulmonary process. Limited degree of inspiration. EKG completed showing normal sinus rhythm, possible inferior infarct, age undetermined. Patient did have elevated temperature upon arrival to emergency room of 101. UA negative. Influenza negative. Urine and blood cultures have been ordered. Patient started on Rocephin. At this time patient remains very sleepy. Patient is arousable but unable to carry on conversation due to increase fatigue. Patient denies any chest pain or shortness of breath. Patient denies cough. At this time patient denies any nausea vomiting or diarrhea. Patient denies any urinary burning or frequency. On 05/30/2018 patient is much more alert today. At this time patient denies any cough or chest pain. Patient denies any nausea or vomiting. Patient denies any urinary burning or frequency. Dr. Glasgow following for infectious disease. CT of abdomen and pelvis has been ordered. On 05/31/2018 patient is feeling much improved today. Patient remains alert, patient has been afebrile. This time patient denies any chest pain or shortness of breath. Patient denies nausea vomiting or diarrhea. Patient denies any urinary burning or frequency. On 06/01/2018 patient is currently resting in bed. Patient is more sleepy today than yesterday. Patient remains afebrile. Patient denies chest pain or shortness of breath. Patient denies nausea vomiting or diarrhea. Patient denies any urinary burning or frequency On 06/02/2018 patient is alert and oriented 3 in no apparent distress she is afebrile, she is having significant difficulty with urinary retention she had multiple straight cath with large amount of urine in the bladder, at this time patient is refusing Vasques catheter she is stating that she if she is given enough time on the commode she will be able to urinate. Nurse will monitor closely if patient is unable to urinate until this evening will reinsert Vasques catheter, urology consult is also following. On 06/03/2018 patient is alert and oriented 3 in no apparent distress, there is no fever or chills no headache or dizziness no chest pain no shortness of breath no cough no nausea or vomiting no abdominal pain, no diarrhea, no burning with urination no frequency or urgency, patient is able to empty her bladder, she needs to sit for a prolonged period of time on the commode to achieve that. On 06/04/2018 patient is alert and oriented 3. Patient feels much improved. Patient is awake and alert. Patient denies shortness of breath. Patient denies nausea vomiting or diarrhea. Patient denies any urinary burning or frequency. Patient remains afebrile. Discussed case with infectious disease. Patient has been cleared for discharge. Patient will be DC'd home on Ceftin and Flagyl for an additional 5 days Due to antibiotics with coumadin, repeat PT/INR 2 days has been ordered I performed an examination of the patient and discussed their management with the Nurse Practitioner. I have reviewed the Nurse Practitioner's notes and agree with the documented findings and plan of care Patient Condition at Discharge: Stable Plan - Discharge Summary Discharge Rx Participant: Yes New Discharge Prescriptions: New metroNIDAZOLE [Flagyl] 500 mg PO TID 5 Days #15 tab Cefuroxime Axetil [Ceftin] 500 mg PO BID 5 Days #10 tab Continue Baclofen [Lioresal] 10 mg PO DAILY@1700 Aspirin 81 mg PO DAILY@0900 Montelukast [Singulair] 10 mg PO DAILY@1700 Furosemide [Lasix] 40 mg PO BID@0900,1700 Potassium Chloride 20 meq PO BID@0900,1700 Citalopram Hydrobromide [CeleXA] 40 mg PO HS@2100 Nitroglycerin Sl Tabs [Nitrostat] 0.4 mg SUBLINGUAL Q5M PRN PRN Reason: Chest Pain Pantoprazole Sodium [Protonix] 40 mg PO DAILY@0600 Ferrous Sulfate [Feosol] 325 mg PO DAILY@1700 Fexofenadine HCl [Mimi Allergy] 180 mg PO DAILY@1700 Cholecalciferol [Vitamin D3] 2,000 unit PO DAILY@0900 Pravastatin Sodium [Pravachol] 20 mg PO HS@2100 Methylphenidate HCl [Ritalin] 20 mg PO BID@0900,1200 Fluticasone Nasal [place] [Flonase Nasal [place]] 1 spray EA NOSTRIL DAILY@0900 fentaNYL [Fentanyl] 25 mcg TRANSDERM Q72H PRN PRN Reason: Pain Pregabalin [Lyrica] 100 mg PO TID@0900,1700,2100 Folic Acid 0.4 mg PO DAILY@0900 Dimethyl Fumarate [Tecfidera] 240 mg PO BID@0900,2100 Warfarin Sodium [Coumadin] 5 mg PO DAILY #30 tablet Levothyroxine Sodium [Synthroid] 50 mcg PO DAILY Discharge Medication List Aspirin 81 mg PO DAILY@0900 11/08/13 [History] Baclofen [Lioresal] 10 mg PO DAILY@17011/08/13 [History] Citalopram Hydrobromide [CeleXA] 40 mg PO HS@2100 11/08/13 [History] Ferrous Sulfate [Feosol] 325 mg PO DAILY@17011/08/13 [History] Fexofenadine HCl [Mimi Allergy] 180 mg PO DAILY@169911/08/13 [History] Furosemide [Lasix] 40 mg PO BID@0900,1700 11/08/13 [History] Montelukast [Singulair] 10 mg PO DAILY@17011/08/13 [History] Nitroglycerin Sl Tabs [Nitrostat] 0.4 mg SUBLINGUAL Q5M PRN 11/08/13 [History] Pantoprazole Sodium [Protonix] 40 mg PO DAILY@0600 11/08/13 [History] Potassium Chloride 20 meq PO BID@0900,1700 11/08/13 [History] Cholecalciferol [Vitamin D3] 2,000 unit PO DAILY@0900 11/18/15 [History] Fluticasone Nasal [place] [Flonase Nasal [place]] 1 spray EA NOSTRIL DAILY@0900 [History] Methylphenidate HCl [Ritalin] 20 mg PO BID@0900,1200 11/18/15 [History] Pravastatin Sodium [Pravachol] 20 mg PO HS@2100 11/18/15 [History] fentaNYL [Fentanyl] 25 mcg TRANSDERM Q72H PRN 11/18/15 [History] Pregabalin [Lyrica] 100 mg PO TID@0900,1700,2100 07/13/16 [History] Folic Acid 0.4 mg PO DAILY@0900 08/18/16 [History] Dimethyl Fumarate [Tecfidera] 240 mg PO BID@0900,2100 04/04/18 [History] Warfarin Sodium [Coumadin] 5 mg PO DAILY #30 tablet 04/30/18 [Rx] Levothyroxine Sodium [Synthroid] 50 mcg PO DAILY 05/29/18 [History] Cefuroxime Axetil [Ceftin] 500 mg PO BID 5 Days #10 tab 06/04/18 [Rx] metroNIDAZOLE [Flagyl] 500 mg PO TID 5 Days #15 tab 06/04/18 [Rx] Follow up Appointment(s)/Referral(s): Dao Barrow MD [STAFF PHYSICIAN] - 3 Weeks [facility], [NON-STAFF] - Sarah Paredes MD [Primary Care Provider] - 1-2 days Ambulatory/Diagnostic Orders: Prothrombin Time INR [LAB.AMB] Time Frame: 2 Days, Location: None Selected Activity/Diet/Wound Care/Special Instructions: Schedule F/U appointment with Dr. Barrow for office cystoscopy. Diet heart healthy Activity as tolerated PT/INR in 2 days Discharge Disposition: HOME SELF-CARE
[2018-06-04] MEDS ORDERED: WARFARIN 5 MG TAB PO ONE (18:00)
--- NOTE | 2018-06-04 20:23 | PN ---
PROGRESS NOTE DATE OF SERVICE: 06/04/2018. REASON FOR FOLLOWUP: Fever, possible abdominal source. INTERVAL HISTORY: The patient is seen on rounds earlier this afternoon. The patient has been afebrile. She is breathing comfortably. Denies having any chest pain or shortness of breath. No cough. No abdominal pain. Did have a bowel movement. PHYSICAL EXAMINATION: Blood pressure 129/57, pulse 63, temperature 97.2, she is 95% on room air. General description is an elderly female lying in bed in no distress. RESPIRATORY: Unlabored breathing. Clear to auscultation anteriorly. Heart: S1, S2. Regular rate and rhythm. Abdomen soft, no tenderness. LABS: Hemoglobin 12.5, white count 3.2. BUN 9, creatinine . ASSESSMENT: fever possible abdominal source in this patient who did have significant cough. distention of her rectum. Constipation currently relieved. Overall Rocephin and Flagyl. We will give a short course of oral Ceftin and Flagyl to finish course of therapy. Continue supportive care. MMODL / IJN: [id number] /
== END 2018-06-04 15:46 | disposition home health service (06) | DRG 392 ==
LOC: EC 08:25 → 4MS4W 10:12 → OBSVTOIN 06-01 11:50
PROVIDERS: ADMIT Internal Medicine; ATTEND Internal Medicine
DX: K59.00 Constipation, unspecified (principal); I69.351 Hemiplegia and hemiparesis following cerebral infarction affecting right dominant side; S30.1XXA Contusion of abdominal wall, initial encounter; D69.6 Thrombocytopenia, unspecified; G35 Multiple sclerosis; K86.89 Other specified diseases of pancreas; I69.321 Dysphasia following cerebral infarction; R40.2142 Coma scale, eyes open, spontaneous, at arrival to emergency department; R40.2362 Coma scale, best motor response, obeys commands, at arrival to emergency department; R40.2252 Coma scale, best verbal response, oriented, at arrival to emergency department; G89.29 Other chronic pain; M54.9 Dorsalgia, unspecified; M79.7 Fibromyalgia; F32.9 Major depressive disorder, single episode, unspecified; R33.9 Retention of urine, unspecified; E03.9 Hypothyroidism, unspecified; E78.5 Hyperlipidemia, unspecified; K46.9 Unspecified abdominal hernia without obstruction or gangrene; M19.90 Unspecified osteoarthritis, unspecified site; G47.30 Sleep apnea, unspecified; Z79.82 Long term (current) use of aspirin; Z79.01 Long term (current) use of anticoagulants; Z79.890 Hormone replacement therapy; Z79.899 Other long term (current) drug therapy; Z86.711 Personal history of pulmonary embolism; Z99.89 Dependence on other enabling machines and devices; Z86.19 Personal history of other infectious and parasitic diseases; Z86.718 Personal history of other venous thrombosis and embolism; Z87.74 Personal history of (corrected) congenital malformations of heart and circulatory system; Z90.49 Acquired absence of other specified parts of digestive tract; Z90.710 Acquired absence of both cervix and uterus; Z91.048 Other nonmedicinal substance allergy status; Z82.49 Family history of ischemic heart disease and other diseases of the circulatory system; Z82.62 Family history of osteoporosis; Z81.8 Family history of other mental and behavioral disorders; D72.819 Decreased white blood cell count, unspecified; G43.909 Migraine, unspecified, not intractable, without status migrainosus
CPT/HCPCS: 36415; 51702; 71046; 74177; 74181; 76700; 80053; 81003; 82150; 82550; 82553; 83605; 83690; 84132; 84484; 85025; 85610; 85730; 87040; 87086; 87502; 93005; 96361; 96365; 96366; 96367; 99285

== ENCOUNTER 2018-09-05 13:25 | Inpatient (IN) | payer MEDICARE, OTHER ==
--- NOTE | 2018-09-05 14:25 | ED ---
General Adult HPI - General Chief complaint: Chest Pain Stated complaint: Chest pain Time Seen by Provider: 09/05/18 13:57 Source: patient, RN notes reviewed, old records reviewed Mode of arrival: wheelchair Limitations: no limitations - History of Present Illness Initial comments: 62-year-old female presenting for evaluation of left-sided chest pain. Patient' s pain has been present for the past one week. History is limited in this patient. Patient has past medical history CVA, MS and has some difficulty conveying her symptoms precisely. She does report severe chest pain at times which is intermittent. Mild dyspnea. She has previous history of PE and is currently on Coumadin. She does also report chronic abdominal pain which is being evaluated by general surgery. - Related Data Home Medications Medication Instructions Recorded Confirmed Aspirin 81 mg PO DAILY@0900 11/08/13 09/05/18 Baclofen [Lioresal] 10 mg PO DAILY@169911/08/13 09/05/18 Citalopram Hydrobromide [CeleXA] 40 mg PO HS@2100 11/08/13 09/05/18 Ferrous Sulfate [Feosol] 325 mg PO DAILY@169911/08/13 09/05/18 Fexofenadine HCl [Mimi Allergy] 180 mg PO DAILY@169911/08/13 09/05/18 Furosemide [Lasix] 40 mg PO BID@0900,169911/08/13 09/05/18 Montelukast [Singulair] 10 mg PO DAILY@169911/08/13 09/05/18 Nitroglycerin Sl Tabs [Nitrostat] 0.4 mg SUBLINGUAL Q5M PRN 11/08/13 09/05/18 Pantoprazole Sodium [Protonix] 40 mg PO DAILY@0911/08/13 09/05/18 Potassium Chloride 20 meq PO BID@0900,1700 11/08/13 09/05/18 Cholecalciferol [Vitamin D3] 2,000 unit PO DAILY@0911/18/15 09/05/18 Fluticasone Nasal [place] [Flonase 1 spray EA NOSTRIL DAILY@0900 11/18/15 09/05/18 Nasal [place]] Methylphenidate HCl [Ritalin] 20 mg PO BID@0900,1200 11/18/15 09/05/18 Pravastatin Sodium [Pravachol] 20 mg PO HS@2100 11/18/15 09/05/18 fentaNYL [Fentanyl] 25 mcg TRANSDERM Q72H PRN 11/18/15 09/05/18 Pregabalin [Lyrica] 100 mg PO TID@0900,1700,2100 07/13/16 09/05/18 Folic Acid 0.4 mg PO DAILY@0900 08/18/16 09/05/18 Dimethyl Fumarate [Tecfidera] 240 mg PO BID@0900,2100 04/04/18 09/05/18 Levothyroxine Sodium [Synthroid] 50 mcg PO DAILY 05/29/18 09/05/18 HYDROcodone/APAP 5-325MG [[place] 1 tab PO Q6H PRN 09/05/18 09/05/18 5-325] Warfarin [Coumadin] 7.5 mg PO DAILY@1700 09/05/18 09/05/18 Allergies Allergy/AdvReac Type Severity Reaction Status Date / Time adhesive Allergy SKIN Verified 09/05/18 14:17 PEELING Review of Systems ROS Statement: Those systems with pertinent positive or pertinent negative responses have been documented in the HPI. ROS Other: All systems not noted in ROS Statement are negative. Past Medical History Past Medical History: Chest Pain / Angina, CVA/TIA, Fibromyalgia, Musculoskeletal Disorder, Neurologic Disorder, Osteoarthritis (OA), Pulmonary Embolus (PE), Sleep Apnea/CPAP/BIPAP, Thyroid Disorder Additional Past Medical History / Comment(s): MULTIPLE SCLEROSIS, HX OF CVA 2006 WITH R SIDED WEAKNESS AND DYSPHASIA-MUCH IMPROVED, MIGRAINES, SLEEP APNEA( HAS C-PAP MACHINE BUT DOES NOT USE) ABD HERNIA,CHRONIC PAIN ESPECIALLY ON R SIDE OF BODY AND LOW BACK . PAINFUL FOR HER TO LIE FLAT. HX OF NOSEBLEED JUL 2014 AND RECEIVED PLASMA TRANSFUSION. takes pills with applesauce. History of Any Multi-Drug Resistant Organisms: VRE Date of last positivie culture/infection: 10/24/09 confirmed with infectious disease nurse on 08/18/16. MDRO Source:: URINE Past Surgical History: Appendectomy, Cholecystectomy, Hysterectomy Additional Past Surgical History / Comment(s): Incisional hernia repair, laparoscopic lysis of adhesions in 1987, ganglion cyst removal of the left wrist , patent foramen ovale patch in 2006, RF ablation for back pain. Past Anesthesia/Blood Transfusion Reactions: No Reported Reaction Past Psychological History: Depression Smoking Status: Never smoker Past Alcohol Use History: None Reported Past Drug Use History: None Reported - Past Family History Mother Family Medical History: Hypertension Additional Family Medical History / Comment(s): osteoporosis Father Family Medical History: Dementia General Exam Limitations: no limitations General appearance: alert, in no apparent distress Head exam: Present: atraumatic, normocephalic Eye exam: Present: normal appearance, PERRL ENT exam: Present: normal exam Neck exam: Present: normal inspection. Absent: tenderness, meningismus Respiratory exam: Present: normal lung sounds bilaterally. Absent: respiratory distress, wheezes Cardiovascular Exam: Present: regular rate, normal rhythm GI/Abdominal exam: Present: soft, distended, tenderness (Mild generalized tenderness to palpation) Extremities exam: Present: normal inspection, normal capillary refill. Absent: pedal edema, calf tenderness Neurological exam: Present: alert Psychiatric exam: Present: flat affect Skin exam: Present: warm, dry, intact. Absent: cyanosis, diaphoretic Course Vital Signs 09/05/18 09/05/18 13:36 14:30 Temperature 97.8 F Pulse Rate 73 56 L Respiratory 18 20 Rate Blood Pressure 113/53 114/61 O2 Sat by Pulse 98 99 Oximetry EKG Findings - EKG Comments: EKG Findings:: EKG: Sinus rhythm, rate of 68, AK interval 144, QRS duration 74, QTC 440, no ST segment elevation Medical Decision Making - Medical Decision Making 62-year-old female presenting for evaluation of left-sided chest pain. History is difficult this patient with history of MS, and previous CVA. EKG negative for ST segment elevation. Patient is on Coumadin for history of PE. Laboratory studies obtained, normal white blood cell count, hemoglobin stable 14.3, INR is therapeutic at 2.1. Initial troponin negative. Chest x-ray negative for any acute cardiopulmonary disease. Patient will be placed in observation for serial cardiac enzymes, telemetry, and cardiology consultation. Case discussed with admitting physician, will accept. - Lab Data Result diagrams: 09/05/18 14:25 09/05/18 14:25 Lab Results 09/05/18 09/05/18 09/05/18 Range/Units 14:25 14:25 14:25 WBC 3.7 L (3.8-10.6) k/uL RBC 4.86 (3.80-5.40) m/uL Hgb 14.3 (11.4-16.0) gm/dL Hct 43.2 (34.0-46.0) % MCV 88.8 (80.0-100.0) fL MCH 29.4 (25.0-35.0) pg MCHC 33.1 (31.0-37.0) g/dL RDW 13.8 (11.5-15.5) % Plt Count 96 L (150-450) k/uL Neutrophils % 73 % Lymphocytes % 16 % Monocytes % 7 % Eosinophils % 2 % Basophils % 1 % Neutrophils # 2.7 (1.3-7.7) k/uL Lymphocytes # 0.6 L (1.0-4.8) k/uL Monocytes # 0.3 (0-1.0) k/uL Eosinophils # 0.1 (0-0.7) k/uL Basophils # 0.0 (0-0.2) k/uL PT (9.0-12.0) sec INR (<1.2) APTT (22.0-30.0) sec Sodium 140 (137-145) mmol/L Potassium 4.8 (3.5-5.1) mmol/L Chloride 101 (98-107) mmol/L Carbon Dioxide 34 H (22-30) mmol/L Anion Gap 5 mmol/L BUN 25 H (7-17) mg/dL Creatinine 1.12 H (0.52-1.04) mg/dL Est GFR (CKD-EPI)AfAm 60 (>60 ml/min/1.73 sqM) Est GFR (CKD-EPI)NonAf 52 (>60 ml/min/1.73 sqM) Glucose 99 (74-99) mg/dL Calcium 9.8 (8.4-10.2) mg/dL Magnesium 2.1 (1.6-2.3) mg/dL Total Bilirubin 0.6 (0.2-1.3) mg/dL AST 88 H (14-36) U/L ALT 66 H (9-52) U/L Alkaline Phosphatase 95 (38-126) U/L Troponin I (0.000-0.034) ng/mL NT-Pro-B Natriuret Pep 160 pg/mL Total Protein 6.4 (6.3-8.2) g/dL Albumin 4.2 (3.5-5.0) g/dL Lipase 56 (23-300) U/L 09/05/18 09/05/18 Range/Units 14:25 14:25 WBC (3.8-10.6) k/uL RBC (3.80-5.40) m/uL Hgb (11.4-16.0) gm/dL Hct (34.0-46.0) % MCV (80.0-100.0) fL MCH (25.0-35.0) pg MCHC (31.0-37.0) g/dL RDW (11.5-15.5) % Plt Count (150-450) k/uL Neutrophils % % Lymphocytes % % Monocytes % % Eosinophils % % Basophils % % Neutrophils # (1.3-7.7) k/uL Lymphocytes # (1.0-4.8) k/uL Monocytes # (0-1.0) k/uL Eosinophils # (0-0.7) k/uL Basophils # (0-0.2) k/uL PT 20.4 H (9.0-12.0) sec INR 2.1 H (<1.2) APTT 30.9 H (22.0-30.0) sec Sodium (137-145) mmol/L Potassium (3.5-5.1) mmol/L Chloride (98-107) mmol/L Carbon Dioxide (22-30) mmol/L Anion Gap mmol/L BUN (7-17) mg/dL Creatinine (0.52-1.04) mg/dL Est GFR (CKD-EPI)AfAm (>60 ml/min/1.73 sqM) Est GFR (CKD-EPI)NonAf (>60 ml/min/1.73 sqM) Glucose (74-99) mg/dL Calcium (8.4-10.2) mg/dL Magnesium (1.6-2.3) mg/dL Total Bilirubin (0.2-1.3) mg/dL AST (14-36) U/L ALT (9-52) U/L Alkaline Phosphatase (38-126) U/L Troponin I <0.012 (0.000-0.034) ng/mL NT-Pro-B Natriuret Pep pg/mL Total Protein (6.3-8.2) g/dL Albumin (3.5-5.0) g/dL Lipase (23-300) U/L Disposition Clinical Impression: Chest pain Disposition: ADMITTED IP TO THIS HOSP Condition: Stable Is patient prescribed a controlled substance at d/c from ED?: No Referrals: Sarah Paredes MD [Primary Care Provider] - 1-2 days Decision to Admit Reason: Admit from EC Decision Date: 09/05/18 Decision Time: 16:38
[2018-09-05 15:01] LABS: Basophils % (A) 1 %; Eosinophils # (A) 0.1 k/uL (0-0.7); Eosinophils % (A) 2 %; HCT 43.2 % (34.0-46.0); HGB 14.3 gm/dL (11.4-16.0); Lymphocytes # (A) 0.6 k/uL (1.0-4.8); Lymphocytes % (A) 16 %; MCH 29.4 pg (25.0-35.0); MCHC 33.1 g/dL (31.0-37.0); MCV 88.8 fL (80.0-100.0); Monocytes # (A) 0.3 k/uL (0-1.0); Monocytes % (A) 7 %; Neutrophils # (A) 2.7 k/uL (1.3-7.7); Neutrophils % (A) 73 %; Platelet Count 96 k/uL (150-450); RBC 4.86 m/uL (3.80-5.40); RDW 13.8 % (11.5-15.5); WBC 3.7 k/uL (3.8-10.6)
--- NOTE | 2018-09-05 15:05 | XR ---
EXAMINATION TYPE: XR chest 2V DATE OF EXAM: 09/05/2018 COMPARISON: Chest x-ray May 29, 2018 HISTORY: Fever. TECHNIQUE: Frontal and lateral views of the chest are obtained. FINDINGS: Low lung volumes are redemonstrated. There is chronic parenchymal change without suspicious new focal air space opacity, pleural effusion, or pneumothorax seen. The cardiac silhouette size re amy enlarged. The osseous structures remain demineralized. IMPRESSION: Chronic changes and cardiomegaly without new suspicious acute pulmonary process.
[2018-09-05 15:06] LABS: Albumin 4.2 g/dL (3.5-5.0); Calcium 9.8 mg/dL (8.4-10.2); Magnesium 2.1 mg/dL (1.6-2.3); Potassium 4.8 mmol/L (3.5-5.1); Total Bilirubin 0.6 mg/dL (0.2-1.3); Total Protein 6.4 g/dL (6.3-8.2)
[2018-09-05 15:15] LABS: INR 2.1 (<1.2); Partial Thromboplastin Time 30.9 sec (22.0-30.0); Prothrombin Time 20.4 sec (9.0-12.0)
[2018-09-05] MEDS ORDERED: ONDANSETRON 4 MG/2 ML VIAL IVP PRN (16:29)
[2018-09-05] MEDS ORDERED: NALOXONE 0.4 MG/ML 1 ML VIAL IV PRN (16:29)
[2018-09-05] MEDS ORDERED: HYDROmorphone 0.5 MG/0.5 ML SYRINGE IVP PRN (16:29)
[2018-09-05] MEDS ORDERED: ASPIRIN 325 MG TAB PO STA (16:32)
[2018-09-05] MEDS ORDERED: HYDROcodone/APAP 5-325MG 1 EACH TAB PO PRN (21:31)
[2018-09-05] MEDS: SODIUM CHLORIDE 0.9% 1,000 ML IV SCH (22:44)
[2018-09-05] MEDS: LORATADINE 10 MG TAB PO SCH (22:45)
[2018-09-05] MEDS: PREGABALIN 100 MG CAP PO SCH (22:46)
[2018-09-05] MEDS: CITALOPRAM HYDROBROMIDE 20 MG TAB PO SCH (22:46)
[2018-09-05] MEDS: POTASSIUM CHLORIDE ER 20 MEQ TAB.ER PO SCH (22:46)
[2018-09-05] MEDS: BACLOFEN 10 MG TAB PO SCH (22:46)
[2018-09-05] MEDS: FERROUS SULFATE 325 MG TAB PO SCH (22:46)
[2018-09-05] MEDS: FUROSEMIDE 40 MG TAB PO SCH (22:46)
[2018-09-05] MEDS: MONTELUKAST 10 MG TAB PO SCH (22:46)
[2018-09-05] MEDS: Dimethyl Fumarate [Tecfidera] PO SCH (22:50)
[2018-09-05] MEDS: PRAVASTATIN SODIUM 20 MG TAB PO SCH (23:13)
[2018-09-05] MEDS: WARFARIN 7.5 MG TAB PO SCH (23:14)
[2018-09-06] MEDS: LEVOTHYROXINE 50 MCG TAB PO SCH (06:04)
[2018-09-06] MEDS ORDERED: LEVOTHYROXINE 50 MCG TAB ONE (06:30)
[2018-09-06 07:40] LABS: INR 1.8 (<1.2); Prothrombin Time 17.5 sec (9.0-12.0)
--- NOTE | 2018-09-06 07:52 | P.CRDCN ---
History of Present Illness Consult date: 09/06/18 Chief complaint: Chest pain History of present illness: This is a pleasant 62-year-old female patient who follows with Dr. Dowling in the office on a regular basis with a past medical history significant for multiple sclerosis, history of stroke with right-sided weakness, history of PE, as well as multiple comorbid conditions, resented to the emergency room complaining of chest discomfort. The patient did have multiple hospital admission with a chest discomfort within the last several years. She described the discomfort as a sharp kind of discomfort, in the mid of the chest, without any radiation to the arm or neck or shoulders, and without any associated symptoms of shortness of breath, sweating, dizziness or lightheadedness, or syncope. She stated that his discomfort comes suddenly and goes suddenly. In terms off work up, the EKG showed sinus rhythm without any ischemic changes. The cardiac enzymes were checked and came in to be unremarkable. On examination she does have severe epigastric and abdominal tenderness and I am concerned about intra-abdominal process. I would advise the patient to be workup for any acute intra-abdominal process and if that came in to be unremarkable she is to be ruled out for severe underlying coronary artery disease giving her multiple hospital admission with a chest discomfort. Past Medical History Past Medical History: Chest Pain / Angina, CVA/TIA, Fibromyalgia, Musculoskeletal Disorder, Neurologic Disorder, Osteoarthritis (OA), Pulmonary Embolus (PE), Sleep Apnea/CPAP/BIPAP, Thyroid Disorder Additional Past Medical History / Comment(s): MULTIPLE SCLEROSIS, HX OF CVA 2006 WITH R SIDED WEAKNESS AND DYSPHASIA-MUCH IMPROVED, MIGRAINES, SLEEP APNEA(HAS C- PAP MACHINE BUT DOES NOT USE) ABD HERNIA,CHRONIC PAIN ESPECIALLY ON R SIDE OF BODY AND LOW BACK . PAINFUL FOR HER TO LIE FLAT. HX OF NOSEBLEED JUL 2014 AND RECEIVED PLASMA TRANSFUSION. takes pills with applesauce. UTI History of Any Multi-Drug Resistant Organisms: VRE Date of last positivie culture/infection: 10/24/09 confirmed with infectious disease nurse on 08/18/16. MDRO Source:: URINE Past Surgical History: Appendectomy, Cholecystectomy, Hysterectomy Additional Past Surgical History / Comment(s): Incisional hernia repair, laparoscopic lysis of adhesions in 1987, ganglion cyst removal of the left wrist, patent foramen ovale patch in 2006, RF ablation for back pain. Past Anesthesia/Blood Transfusion Reactions: No Reported Reaction Past Psychological History: Depression Smoking Status: Never smoker Past Alcohol Use History: None Reported Past Drug Use History: None Reported Additional Drug Use History / Comment(s): Lives at home with her requires some assistance with ADLs at times - Past Family History Mother Family Medical History: Hypertension Additional Family Medical History / Comment(s): osteoporosis Father Family Medical History: Dementia Medications and Allergies Home Medications Medication Instructions Recorded Confirmed Type Aspirin 81 mg PO DAILY@89911/08/13 09/05/18 History Baclofen [Lioresal] 10 mg PO DAILY@169911/08/13 09/05/18 History Citalopram Hydrobromide [CeleXA] 40 mg PO HS@209911/08/13 09/05/18 History Ferrous Sulfate [Feosol] 325 mg PO DAILY@169911/08/13 09/05/18 History Fexofenadine HCl [Mimi Allergy] 180 mg PO DAILY@169911/08/13 09/05/18 History Furosemide [Lasix] 40 mg PO BID@0900,169911/08/13 09/05/18 History Montelukast [Singulair] 10 mg PO DAILY@169911/08/13 09/05/18 History Nitroglycerin Sl Tabs [Nitrostat] 0.4 mg SUBLINGUAL Q5M PRN 11/08/13 09/05/18 History Pantoprazole Sodium [Protonix] 40 mg PO DAILY@0911/08/13 09/05/18 History Potassium Chloride 20 meq PO BID@0900,1700 11/08/13 09/05/18 History Cholecalciferol [Vitamin D3] 2,000 unit PO DAILY@0911/18/15 09/05/18 History Fluticasone Nasal [place] [Flonase 1 spray EA NOSTRIL DAILY@0911/18/15 09/05/18 History Nasal [place]] Methylphenidate HCl [Ritalin] 20 mg PO BID@0900,1200 11/18/15 09/05/18 History Pravastatin Sodium [Pravachol] 20 mg PO HS@209911/18/15 09/05/18 History fentaNYL [Fentanyl] 25 mcg TRANSDERM Q72H PRN 11/18/15 09/05/18 History Pregabalin [Lyrica] 100 mg PO TID@0900,1700,2100 07/13/16 09/05/18 History Folic Acid 0.4 mg PO DAILY@0900 08/18/16 09/05/18 History Dimethyl Fumarate [Tecfidera] 240 mg PO BID@0900,2100 04/04/18 09/05/18 History Levothyroxine Sodium [Synthroid] 50 mcg PO DAILY 05/29/18 09/05/18 History HYDROcodone/APAP 5-325MG [[place] 1 tab PO Q6H PRN 09/05/18 09/05/18 History 5-325] Warfarin [Coumadin] 7.5 mg PO DAILY@1700 09/05/18 09/05/18 History Allergies Allergy/AdvReac Type Severity Reaction Status Date / Time adhesive Allergy SKIN Verified 09/05/18 20:47 PEELING Physical Exam Vitals: Vital Signs Temp Pulse Pulse Resp BP BP Pulse Ox 09/06/18 07:36 97 09/06/18 04:00 97.9 F 65 14 94/58 96 09/06/18 02:49 14 09/06/18 00:00 98.0 F 49 L 14 91/46 99 09/05/18 21:15 20 09/05/18 20:00 98.0 F 55 L 20 120/55 99 09/05/18 19:00 52 L 20 133/78 99 09/05/18 18:00 54 L 20 132/84 99 09/05/18 16:30 60 20 121/72 98 09/05/18 15:30 58 L 20 110/63 98 09/05/18 14:30 56 L 20 114/61 99 09/05/18 13:36 97.8 F 73 18 113/53 98 Intake and Output 09/05/18 09/06/18 09/06/18 22:59 06:59 14:59 Other: Voiding Method Toilet Toilet Diaper Diaper # Voids 1 - Constitutional General appearance: no acute distress - Cardiovascular Rhythm: regular Heart sounds: Results 09/05/18 14:25 09/05/18 14:25 Cardiac Enzymes 09/05/18 09/05/18 09/05/18 Range/Units 14:25 14:25 20:06 AST 88 H (14-36) U/L Troponin I <0.012 <0.012 (0.000-0.034) ng/mL 09/06/18 Range/Units 02:22 AST (14-36) U/L Troponin I <0.012 (0.000-0.034) ng/mL Coagulation 09/05/18 09/06/18 Range/Units 14:25 06:54 PT 20.4 H 17.5 H (9.0-12.0) sec APTT 30.9 H (22.0-30.0) sec CBC 09/05/18 Range/Units 14:25 WBC 3.7 L (3.8-10.6) k/uL RBC 4.86 (3.80-5.40) m/uL Hgb 14.3 (11.4-16.0) gm/dL Hct 43.2 (34.0-46.0) % Plt Count 96 L (150-450) k/uL Comprehensive Metabolic Panel 09/05/18 Range/Units 14:25 Sodium 140 (137-145) mmol/L Potassium 4.8 (3.5-5.1) mmol/L Chloride 101 (98-107) mmol/L Carbon Dioxide 34 H (22-30) mmol/L BUN 25 H (7-17) mg/dL Creatinine 1.12 H (0.52-1.04) mg/dL Glucose 99 (74-99) mg/dL Calcium 9.8 (8.4-10.2) mg/dL AST 88 H (14-36) U/L ALT 66 H (9-52) U/L Alkaline Phosphatase 95 (38-126) U/L Total Protein 6.4 (6.3-8.2) g/dL Albumin 4.2 (3.5-5.0) g/dL Current Medications Generic Name Dose Route Start Last Admin Trade Name Freq PRN Reason Stop Dose Admin Hydrocodone Bitart/Acetaminophen 1 each 09/05/18 21:31 [place] 5-325 PO Q6H PRN Moderate Pain Aspirin 81 mg 09/06/18 09:00 Aspirin PO DAILY@0900 [facility] Baclofen 10 mg 09/05/18 21:31 09/05/18 22:46 Lioresal PO 10 mg DAILY@1700 [facility] Administration Cholecalciferol 2,000 unit 09/06/18 09:00 Vitamin D3 PO DAILY@0900 [facility] Citalopram Hydrobromide 40 mg 09/05/18 21:32 09/05/18 22:46 Celexa PO 40 mg HS@2100 [facility] Administration Fentanyl 1 patch 09/06/18 09:00 Duragesic 25mcg/Hr Patch TRANSDERM Q72H PRN Pain Ferrous Sulfate 325 mg 09/05/18 21:33 09/05/18 22:46 Feosol PO 325 mg DAILY@1700 [facility] Administration Fluticasone Propionate 1 spray 09/06/18 09:00 Flonase Nasal [place] EA NOSTRIL DAILY@0900 [facility] Folic Acid 1 mg 09/06/18 09:00 Folic Acid PO DAILY@0900 [facility] Furosemide 40 mg 09/05/18 21:35 09/05/18 22:46 Lasix PO 40 mg BID@0900,1700 [facility] Administration Hydromorphone HCl 0.5 mg 09/05/18 16:29 Dilaudid IVP Q3HR PRN Moderate Pain Sodium Chloride 1,000 mls @ 20 mls/hr 09/05/18 16:30 09/05/18 22:44 Saline 0.9% IV Not Given .Q24H [facility] Levothyroxine Sodium 50 mcg 09/06/18 06:30 09/06/18 06:04 Synthroid PO Not Given DAILY@0630 [facility] Loratadine 10 mg 09/05/18 21:34 09/05/18 22:45 Claritin PO 10 mg DAILY@1700 [facility] Administration Methylphenidate HCl 20 mg 09/06/18 09:00 Ritalin PO BID@0900,1200 [facility] Montelukast Sodium 10 mg 09/05/18 21:36 09/05/18 22:46 Singulair PO 10 mg DAILY@1700 [facility] Administration Naloxone HCl 0.2 mg 09/05/18 16:29 Narcan IV Q2M PRN Opioid Reversal Dimethyl Fumarate [ 240 mg 09/05/18 21:32 09/05/18 22:50 Tecfidera] PO Not Given BID@0900,2100 [facility] Ondansetron HCl 4 mg 09/05/18 16:29 Zofran IVP Q8HR PRN Nausea And Vomiting Pantoprazole Sodium 40 mg 09/06/18 09:00 Protonix PO DAILY@0900 [facility] Potassium Chloride 20 meq 09/05/18 21:36 09/05/18 22:46 K-Dur 20 PO 20 meq BID@0900,1700 [facility] Administration Pravastatin Sodium 20 mg 09/05/18 21:37 09/05/18 23:13 Pravachol PO 20 mg HS@2100 [facility] Administration Pregabalin 100 mg 09/05/18 21:37 09/05/18 22:46 Lyrica PO 100 mg TID@0900,1700,2100 [facility] Administration Warfarin Sodium 7.5 mg 09/05/18 21:37 09/05/18 23:14 Coumadin PO 7.5 mg DAILY@1700 [facility] Administration Intake and Output 09/05/18 09/06/18 09/06/18 22:59 06:59 14:59 Other: Voiding Method Toilet Toilet Diaper Diaper # Voids 1 09/05/18 14:25 09/05/18 14:25 Assessment and Plan Assessment: Assessment #1 recurrent chest discomfort #2 epigastric tenderness #3 multiple comorbid conditions Plan #1 acute coronary event was ruled out #2 I would rule out any acute intra-abdominal process #3 if that came in to be negative, she needs to be ruled out for severe underlying coronary artery disease #4 I will obtain an echocardiogram was Doppler #5 follow-up with the patient. Thank you for allowing us participate in her care
[2018-09-06 09:41] LABS: Basophils % (A) 1 %; Eosinophils # (A) 0.1 k/uL (0-0.7); Eosinophils % (A) 3 %; HCT 41.4 % (34.0-46.0); HGB 13.6 gm/dL (11.4-16.0); Lymphocytes # (A) 0.6 k/uL (1.0-4.8); Lymphocytes % (A) 24 %; MCH 29.7 pg (25.0-35.0); MCHC 32.7 g/dL (31.0-37.0); MCV 90.7 fL (80.0-100.0); Mean Platelet Volume 10.6; Monocytes # (A) 0.2 k/uL (0-1.0); Monocytes % (A) 7 %; Neutrophils # (A) 1.6 k/uL (1.3-7.7); Neutrophils % (A) 62 %; RBC 4.57 m/uL (3.80-5.40); RDW 13.9 % (11.5-15.5); WBC 2.6 k/uL (3.8-10.6)
[2018-09-06 09:52] LABS: Platelet Count 93 k/uL (150-450)
[2018-09-06 09:57] LABS: Potassium 4.6 mmol/L (3.5-5.1)
[2018-09-06 09:58] LABS: Albumin 3.6 g/dL (3.5-5.0); Calcium 9.2 mg/dL (8.4-10.2); Total Protein 5.7 g/dL (6.3-8.2)
--- NOTE | 2018-09-06 10:38 | P.HPIM ---
History of Present Illness H&P Date: 09/06/18 Chief Complaint: Left-sided chest pain This is a 62-year-old female with a known past medical history of multiple sclerosis, CVA with right-sided weakness and expressive aphasia, PE and DVT anticoagulated on Coumadin. Patient presents to the emergency room with complaints of left-sided chest pain. She is admitted to the observation unit. Troponins are negative 3 sets EKG showing sinus rhythm. She was seen evaluated by cardiology the recommending abdominal workup. Patient did have some right upper quadrant epigastric and lower pelvic tenderness. AST 88 ALT 66. Lipase was normal. Chest x-rays negative. Abdominal ultrasound has been ordered. Patient does have a history of cholecystectomy. White count 3.7 platelets are 96 and creatinine 1.12. Patient is sleeping comfortably. Patient denies any nausea or vomiting. Note that she is difficult to understand and poor historian. She may have had issues with constipation but it appears she did have a bowel movement yesterday per nursing staff. She denies any shortness of breath. Denies any fevers chills or sweats. Denies any cough denies any burning with urination. Review of Systems Please refer to HPI otherwise unremarkable Past Medical History Past Medical History: Chest Pain / Angina, CVA/TIA, Fibromyalgia, Musculoskeletal Disorder, Neurologic Disorder, Osteoarthritis (OA), Pulmonary Embolus (PE), Sleep Apnea/CPAP/BIPAP, Thyroid Disorder Additional Past Medical History / Comment(s): MULTIPLE SCLEROSIS, HX OF CVA 2006 WITH R SIDED WEAKNESS AND DYSPHASIA-MUCH IMPROVED, MIGRAINES, SLEEP APNEA(HAS C- PAP MACHINE BUT DOES NOT USE) ABD HERNIA,CHRONIC PAIN ESPECIALLY ON R SIDE OF BODY AND LOW BACK . PAINFUL FOR HER TO LIE FLAT. HX OF NOSEBLEED JUL 2014 AND RECEIVED PLASMA TRANSFUSION. takes pills with applesauce. UTI History of Any Multi-Drug Resistant Organisms: VRE Date of last positivie culture/infection: 10/24/09 confirmed with infectious d [place] nurse on 08/18/16. MDRO Source:: URINE Past Surgical History: Appendectomy, Cholecystectomy, Hysterectomy Additional Past Surgical History / Comment(s): Incisional hernia repair, laparoscopic lysis of adhesions in 1987, ganglion cyst removal of the left wrist, patent foramen ovale patch in 2006, RF ablation for back pain. Past Anesthesia/Blood Transfusion Reactions: No Reported Reaction Past Psychological History: Depression Smoking Status: Never smoker Past Alcohol Use History: None Reported Past Drug Use History: None Reported Additional Drug Use History / Comment(s): Lives at home with her requires some assistance with ADLs at times - Past Family History Mother Family Medical History: Hypertension Additional Family Medical History / Comment(s): osteoporosis Father Family Medical History: Dementia Medications and Allergies Home Medications Medication Instructions Recorded Confirmed Type Aspirin 81 mg PO DAILY@0911/08/13 09/05/18 History Baclofen [Lioresal] 10 mg PO DAILY@169911/08/13 09/05/18 History Citalopram Hydrobromide [CeleXA] 40 mg PO HS@2100 11/08/13 09/05/18 History Ferrous Sulfate [Feosol] 325 mg PO DAILY@169911/08/13 09/05/18 History Fexofenadine HCl [Mimi Allergy] 180 mg PO DAILY@169911/08/13 09/05/18 History Furosemide [Lasix] 40 mg PO BID@0900,1700 11/08/13 09/05/18 History Montelukast [Singulair] 10 mg PO DAILY@169911/08/13 09/05/18 History Nitroglycerin Sl Tabs [Nitrostat] 0.4 mg SUBLINGUAL Q5M PRN 11/08/13 09/05/18 History Pantoprazole Sodium [Protonix] 40 mg PO DAILY@0900 11/08/13 09/05/18 History Potassium Chloride 20 meq PO BID@0900,1700 11/08/13 09/05/18 History Cholecalciferol [Vitamin D3] 2,000 unit PO DAILY@0900 11/18/15 09/05/18 History Fluticasone Nasal [place] [Flonase 1 spray EA NOSTRIL DAILY@0911/18/15 09/05/18 History Nasal [place]] Methylphenidate HCl [Ritalin] 20 mg PO BID@0900,1200 11/18/15 09/05/18 History Pravastatin Sodium [Pravachol] 20 mg PO HS@2100 11/18/15 09/05/18 History fentaNYL [Fentanyl] 25 mcg TRANSDERM Q72H PRN 11/18/15 09/05/18 History Pregabalin [Lyrica] 100 mg PO TID@0900,1700,2100 07/13/16 09/05/18 History Folic Acid 0.4 mg PO DAILY@0900 08/18/16 09/05/18 History Dimethyl Fumarate [Tecfidera] 240 mg PO BID@0900,2100 04/04/18 09/05/18 History Levothyroxine Sodium [Synthroid] 50 mcg PO DAILY 05/29/18 09/05/18 History HYDROcodone/APAP 5-325MG [[place] 1 tab PO Q6H PRN 09/05/18 09/05/18 History 5-325] Warfarin [Coumadin] 7.5 mg PO DAILY@1700 09/05/18 09/05/18 History Allergies Allergy/AdvReac Type Severity Reaction Status Date / Time adhesive Allergy SKIN Verified 09/05/18 20:47 PEELING Physical Exam Vitals: Vital Signs Temp Pulse Pulse Pulse Resp BP BP 09/06/18 07:48 98.3 F 47 L 18 98/61 09/06/18 07:36 09/06/18 04:00 97.9 F 65 14 94/58 09/06/18 02:49 14 09/06/18 00:00 98.0 F 49 L 14 91/46 09/05/18 21:15 20 09/05/18 20:00 98.0 F 55 L 20 120/55 09/05/18 19:00 52 L 20 133/78 09/05/18 18:00 54 L 20 132/84 09/05/18 16:30 60 20 121/72 09/05/18 15:30 58 L 20 110/63 09/05/18 14:30 56 L 20 114/61 09/05/18 13:36 97.8 F 73 18 113/53 Pulse Ox 09/06/18 07:48 97 09/06/18 07:36 97 09/06/18 04:00 96 09/06/18 02:49 09/06/18 00:00 99 09/05/18 21:15 09/05/18 20:00 99 09/05/18 19:00 99 09/05/18 18:00 99 09/05/18 16:30 98 09/05/18 15:30 98 09/05/18 14:30 99 09/05/18 13:36 98 Intake and Output 09/05/18 09/06/18 09/06/18 22:59 06:59 14:59 Other: Voiding Method Toilet Toilet Toilet Diaper Diaper Diaper # Voids 1 Head normocephalic Neck supple Lungs clear to auscultation bilaterally no wheezing or crackles. Tenderness to palpation of the chest wall. No rashes or lesions noted on the skin of the maria [address] st Heart regular rate and rhythm S1-S2, no rub or gallop Abdomen is soft tenderness right upper quadrant epigastric and suprapubic nondistended positive bowel sounds no hepatosplenomegaly Extremities no edema Neuro alert and orientated to 3 Results CBC & Chem 7: 09/06/18 06:54 09/06/18 06:54 Labs: Abnormal Lab Results - Last 24 Hours (Table) 09/05/18 09/05/18 09/05/18 Range/Units 14:25 14:25 14:25 WBC 3.7 L (3.8-10.6) k/uL Plt Count 96 L (150-450) k/uL Lymphocytes # 0.6 L (1.0-4.8) k/uL PT 20.4 H (9.0-12.0) sec INR 2.1 H (<1.2) APTT 30.9 H (22.0-30.0) sec Carbon Dioxide 34 H (22-30) mmol/L BUN 25 H (7-17) mg/dL Creatinine 1.12 H (0.52-1.04) mg/dL Glucose (74-99) mg/dL AST 88 H (14-36) U/L ALT 66 H (9-52) U/L Total Protein (6.3-8.2) g/dL 09/06/18 09/06/18 09/06/18 Range/Units 06:54 06:54 06:54 WBC 2.6 L (3.8-10.6) k/uL Plt Count 93 L (150-450) k/uL Lymphocytes # 0.6 L (1.0-4.8) k/uL PT 17.5 H (9.0-12.0) sec INR 1.8 H (<1.2) APTT (22.0-30.0) sec Carbon Dioxide 36 H (22-30) mmol/L BUN 23 H (7-17) mg/dL Creatinine 1.15 H (0.52-1.04) mg/dL Glucose 106 H (74-99) mg/dL AST 41 H (14-36) U/L ALT (9-52) U/L Total Protein 5.7 L (6.3-8.2) g/dL Thrombosis Risk Factor Assmnt - Choose All That Apply Any of the Below Risk Factors Present?: Yes Each Factor Represents 1 point: Obesity (BMI >25), Swollen legs (current) Other Risk Factors: Yes Each Risk Factor Represents 2 Points: Age 61-74 years Each Risk Factor Represents 3 Points: History of DVT/PE Other congenital or acquired thrombophilia - If yes, enter type in comment: No Thrombosis Risk Factor Assessment Total Risk Factor Score: 7 Thrombosis Risk Factor Assessment Level: High Risk Assessment and Plan Assessment: 1. Chest pain: Acute coronary event ruled out. Troponins are negative 3 sets. EKG showing sinus rhythm. Chest x-ray negative. Patient has been seen evaluated by cardiology and they are recommending to begin with ruling out any acute intra-abdominal process and then proceed with further cardiac workup. Echo pending 2. Abdominal pain: Mildly elevated LFTs. Check abdominal ultrasound. Patient does have a history of a cholecystectomy. Lipase is normal. Check urinalysis with culture 3. Acute kidney injury: Likely related to dehydration and diuretics. Decrease Lasix to 40 mg daily instead of twice a day. We'll give normal saline at 50 mL an hour. Repeat labs in a.m. 4. History of multiple sclerosis 5. 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 History of PE and DVT anticoagulated with Coumadin INR subtherapeutic at 1.8. Patient is scheduled for Coumadin 7.5 mg tonight. 7. Leukopenia and thrombocytopenia: Continue to monitor 8. Hyperlipidemia 9. History of fibroid myalgia 10. History of depression 11. History of hypothyroidism continue Synthroid 12. History of constipation GI prophylaxis Protonix and DVT prophylaxis Coumadin Time with Patient: Greater than 30 (Greater than 50% of the total time spent in counseling and coordination of care.I performed an examination of the patient and discussed their management with the physician Investor Relations Manager. I have reviewed the Physician Investor Relations Manager's notes and agree with the documented findings and plan of care)
[2018-09-06] MEDS: SODIUM CHLORIDE 0.9% 1,000 ML IV SCH ×2 (11:16→17:08)
[2018-09-06] MEDS: FOLIC ACID 1 MG TAB PO SCH (12:13)
[2018-09-06] MEDS: PANTOPRAZOLE 40 MG TABLET PO SCH (12:13)
[2018-09-06] MEDS: METHYLPHENIDATE HCL 10 MG TAB PO SCH ×2 (12:13→12:20)
[2018-09-06] MEDS: FLUTICASONE 50MCG/SPRAY NASAL 16GM EA NOSTRIL SCH (12:13)
[2018-09-06] MEDS: PREGABALIN 100 MG CAP PO SCH ×3 (12:13→20:16)
[2018-09-06] MEDS: CHOLECALCIFEROL 1,000 UNIT TAB PO SCH (12:13)
[2018-09-06] MEDS: Dimethyl Fumarate [Tecfidera] PO SCH ×2 (12:14→20:17)
[2018-09-06] MEDS: ASPIRIN 81 MG PO SCH (12:14)
[2018-09-06 12:16] LABS: Appearance,Urine Clear (Clear); Bilirubin,Urine Negative (Negative); Blood,Urine Negative (Negative); Color,Urine Yellow; Glucose,Urine (UA) Negative (Negative); Hyaline Casts,Urine 34 /lpf (0-2); Ketones,Urine Negative (Negative); Leukocyte Esterase,Urine Moderate (Negative); Mucus,Urine Occasional /hpf; Nitrite,Urine Negative (Negative); PH, Urine 5.5 (5.0-8.0); Protein,Urine Negative (Negative); RBC,Urine <1 /hpf (0-5); Specific Gravity,Urine 1.011 (1.001-1.035); Squamous Epithelial Cell,Urine 1 /hpf (0-4); Urobilinogen,Urine <2.0 mg/dL (<2.0)
[2018-09-06] MEDS: POTASSIUM CHLORIDE ER 20 MEQ TAB.ER PO SCH ×2 (12:20→17:37)
[2018-09-06] MEDS: FUROSEMIDE 40 MG TAB PO SCH (12:58)
--- NOTE | 2018-09-06 13:04 | US ---
EXAMINATION TYPE: US abdomen complete DATE OF EXAM: 09/06/2018 COMPARISON: 05/29/2018 CLINICAL HISTORY: abdominal pain. EXAM MEASUREMENTS: Liver Length: 16.1 cm Gallbladder Wall: Surgically absent CBD: 0.5 cm Spleen: 12.0 cm Right Kidney: 9.4 x 3.6 x 4.5 cm Left Kidney: 10.2 x 4.4 x 4.2 cm Morbidly obese patient unable to cooperate with examiner. Suboptimal study. Pancreas: Obscured by bowel gas Liver: There is increased echogenicity of the hepatic parenchyma with diminished visualization of th e portal triads most commonly relating to hepatic steatosis and limiting evaluation for underlying he patic masses. Gallbladder: Surgically absent Evidence for sonographic Johnson's sign: no CBD: not well visualized Spleen: limited visualization Right Kidney: Inferior pole completely obscured by bowel gas Left Kidney: Inferior pole completely obscured by bowel gas Upper IVC: wnl Abd Aorta: Obscured by overlying bowel gas The intrahepatic portion of the IVC and proximal abdominal aorta are within normal limits. There is no evidence of cholelithiasis. Common bile duct is unremarkable. The visualized portions of the khanna creas are homogenous. The spleen is unremarkable. Kidneys are symmetric and free of hydronephrosis. No renal lesions are seen. IMPRESSION: Suboptimal exam given patient body habitus and noncompliance. 1. Nonvisualization of the pancreas, inferior pole of the kidneys, abdominal aorta, and poor visualiz ation of the liver. 2. Hepatic steatosis is demonstrated within the visualized portions of the liver.
[2018-09-06] MEDS: FERROUS SULFATE 325 MG TAB PO SCH (17:37)
[2018-09-06] MEDS: BACLOFEN 10 MG TAB PO SCH (17:37)
[2018-09-06] MEDS: WARFARIN 7.5 MG TAB PO SCH (17:37)
[2018-09-06] MEDS: MONTELUKAST 10 MG TAB PO SCH (17:37)
[2018-09-06] MEDS: LORATADINE 10 MG TAB PO SCH (17:37)
[2018-09-06] MEDS: CITALOPRAM HYDROBROMIDE 20 MG TAB PO SCH (20:16)
[2018-09-06] MEDS: PRAVASTATIN SODIUM 20 MG TAB PO SCH (20:16)
[2018-09-07] MEDS: LEVOTHYROXINE 50 MCG TAB PO SCH (05:30)
[2018-09-07 07:19] LABS: Basophils % (A) 1 %; Eosinophils # (A) 0.1 k/uL (0-0.7); Eosinophils % (A) 3 %; HCT 39.3 % (34.0-46.0); HGB 12.7 gm/dL (11.4-16.0); Lymphocytes # (A) 0.6 k/uL (1.0-4.8); Lymphocytes % (A) 24 %; MCH 29.2 pg (25.0-35.0); MCHC 32.3 g/dL (31.0-37.0); MCV 90.5 fL (80.0-100.0); Mean Platelet Volume 9.8; Monocytes # (A) 0.2 k/uL (0-1.0); Monocytes % (A) 7 %; Neutrophils # (A) 1.6 k/uL (1.3-7.7); Neutrophils % (A) 63 %; RBC 4.34 m/uL (3.80-5.40); RDW 13.8 % (11.5-15.5); WBC 2.5 k/uL (3.8-10.6)
[2018-09-07 07:23] LABS: Platelet Count 93 k/uL (150-450)
[2018-09-07 07:27] LABS: Albumin 3.2 g/dL (3.5-5.0); Calcium 8.8 mg/dL (8.4-10.2); Potassium 4.5 mmol/L (3.5-5.1); Total Bilirubin 0.6 mg/dL (0.2-1.3); Total Protein 5.2 g/dL (6.3-8.2)
[2018-09-07] MEDS ORDERED: REGADENOSON 0.4 MG/5 ML SYRINGE IV ONE (07:29)
[2018-09-07] MEDS ORDERED: CAFFEINE CITRATE 60 MG/3 ML VIAL IV PRN (07:29)
--- NOTE | 2018-09-07 07:36 | P.PN ---
Subjective Progress Note Date: 09/07/18 Principal diagnosis: Chest pain This is a pleasant 62-year-old female patient who follows with Dr. Dowling in the office on a regular basis with a past medical history significant for multiple sclerosis, history of stroke with right-sided weakness, history of PE, as well as multiple comorbid conditions, resented to the emergency room complaining of chest discomfort. The patient did have multiple hospital admission with a chest discomfort within the last several years. She described the discomfort as a sharp kind of discomfort, in the mid of the chest, without any radiation to the arm or neck or shoulders, and without any associated symptoms of shortness of breath, sweating, dizziness or lightheadedness, or syncope. She stated that his discomfort comes suddenly and goes suddenly. In terms off work up, the EKG showed sinus rhythm without any ischemic changes. The cardiac enzymes were checked and came in to be unremarkable. When the patient was seen yesterday, she was experiencing epigastric discomfort. She underwent an ultrasound of the abdomen which did not show any evidence of acute intra-abdominal process. I did recommend obtaining a stress test to rule out any severe underlying coronary artery disease. Objective - Vital Signs Vital signs: Vital Signs Temp 97.8 F 09/07/18 03:34 Pulse 50 L 09/07/18 03:34 Resp 16 09/07/18 03:35 BP 86/48 09/07/18 03:34 Pulse Ox 95 09/07/18 03:34 Intake & Output 09/06/18 09/07/18 09/07/18 18:59 06:59 18:59 Intake Total 300 Output Total 972 1200 Balance -672 -1200 Intake: Oral 300 Output: Urine 600 1200 Post Void Residual 372 Other: Voiding Method Toilet Indwelling Catheter Diaper # Voids 1 - Constitutional General appearance: Present: no acute distress - Respiratory Respiratory: - Cardiovascular Rhythm: regular - Labs CBC & Chem 7: 09/07/18 06:52 09/07/18 06:52 Labs: Abnormal Lab Results - Last 24 Hours (Table) 09/06/18 09/06/18 09/06/18 Range/Units 06:54 06:54 06:54 WBC 2.6 L (3.8-10.6) k/uL Plt Count 93 L (150-450) k/uL Lymphocytes # 0.6 L (1.0-4.8) k/uL PT 17.5 H (9.0-12.0) sec INR 1.8 H (<1.2) Carbon Dioxide 36 H (22-30) mmol/L BUN 23 H (7-17) mg/dL Creatinine 1.15 H (0.52-1.04) mg/dL Glucose 106 H (74-99) mg/dL AST 41 H (14-36) U/L ALT (9-52) U/L Total Protein 5.7 L (6.3-8.2) g/dL Albumin (3.5-5.0) g/dL Ur Leukocyte Esterase (Negative) Urine WBC (0-5) /hpf Hyaline Casts (0-2) /lpf Urine Mucus (None) /hpf 09/06/18 09/07/18 09/07/18 Range/Units 11:40 06:52 06:52 WBC 2.5 L (3.8-10.6) k/uL Plt Count 93 L (150-450) k/uL Lymphocytes # 0.6 L (1.0-4.8) k/uL PT (9.0-12.0) sec INR (<1.2) Carbon Dioxide 32 H (22-30) mmol/L BUN 19 H (7-17) mg/dL Creatinine 1.12 H (0.52-1.04) mg/dL Glucose 106 H (74-99) mg/dL AST 74 H (14-36) U/L ALT 98 H (9-52) U/L Total Protein 5.2 L (6.3-8.2) g/dL Albumin 3.2 L (3.5-5.0) g/dL Ur Leukocyte Esterase Moderate H (Negative) Urine WBC 10 H (0-5) /hpf Hyaline Casts 34 H (0-2) /lpf Urine Mucus Occasional H (None) /hpf Assessment and Plan Assessment: Assessment #1 recurrent chest discomfort #2 epigastric tenderness #3 multiple comorbid conditions Plan #1 acute coronary event was ruled out #2 I will obtain a stress test to rule out any severe CAD Thank you for allowing us participate in her care
[2018-09-07] MEDS ORDERED: FUROSEMIDE 40 MG TAB PO SCH (09:00)
--- NOTE | 2018-09-07 10:20 | NM ---
EXAMINATION TYPE: NM stress lexiscan cardiolite DATE OF EXAM: 09/07/2018 COMPARISON: 12/10/2009 HISTORY: Chest pain TECHNIQUE: After the intravenous administration of 9.96 mCi Tc 99m Sestamibi - Cardiolite resting SP ECT images acquired 45 minutes post injection. The patient received 0.4mg Lexiscan, 24.8 mCi Tc 99m Sestamibi - Stress images obtained [address] injection FINDINGS: Review of stress and rest SPECT images demonstrates fixed perfusion defects involving the apical and inferior portion myocardium which is greater on rest images relative to stress images. Therefore no s tress-induced reversible ischemia identified.. Gated analysis shows normal wall motion with an estim ated left ventricular ejection fraction of 56 %. IMPRESSION: No scintigraphic evidence for reversible ischemia.
[2018-09-07] MEDS: ASPIRIN 81 MG PO SCH (10:31)
[2018-09-07] MEDS: METHYLPHENIDATE HCL 10 MG TAB PO SCH ×2 (10:31→10:46)
[2018-09-07] MEDS: PREGABALIN 100 MG CAP PO SCH ×3 (10:31→21:36)
[2018-09-07] MEDS: FLUTICASONE 50MCG/SPRAY NASAL 16GM EA NOSTRIL SCH (10:31)
[2018-09-07] MEDS: POTASSIUM CHLORIDE ER 20 MEQ TAB.ER PO SCH ×2 (10:31→18:00)
[2018-09-07] MEDS: FOLIC ACID 1 MG TAB PO SCH (10:31)
[2018-09-07] MEDS: CHOLECALCIFEROL 1,000 UNIT TAB PO SCH (10:36)
[2018-09-07] MEDS: Dimethyl Fumarate [Tecfidera] PO SCH ×2 (10:36→21:44)
[2018-09-07] MEDS: PANTOPRAZOLE 40 MG TABLET PO SCH (10:36)
--- NOTE | 2018-09-07 10:41 | P.PN ---
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 Patient presents to the emergency room with complaints of left-sided chest pain. She is admitted to the observation unit. Troponins are negative 3 sets EKG showing sinus rhythm. She was seen evaluated by cardiology the recommending abdominal workup. Patient did have some right upper quadrant epigastric and lower pelvic tenderness. AST 88 ALT 66. Lipase was normal. Chest x-rays negative. Abdominal ultrasound has been ordered. Patient does have a history of cholecystectomy. White count 3.7 platelets are 96 and creatinine 1.12. Patient is sleeping comfortably. Patient denies any nausea or vomiting. Note that she is difficult to understand and poor historian. She may have had issues with constipation but it appears she did have a bowel movement yesterday per nursing staff. She denies any shortness of breath. Denies any fevers chills or sweats. Denies any cough denies any burning with urination. 09/07/2018 patient underwent Lexiscan stress test today. No evidence of stress induced reversible ischemia. Patient eating pudding. She states she is feeling slightly better. She had urinary retention yesterday and required Amor catheter be placed. She's found have evidence of a UTI and was started on Rocephin. Awaiting urine culture. Patient denies any nausea or vomiting. She does reports right-sided abdominal pain. Last bowel movement September 05 Objective - Vital Signs Vital signs: Vital Signs Temp 98.0 F 09/07/18 07:15 Pulse 51 L 09/07/18 07:15 Resp 18 09/07/18 07:15 BP 112/65 09/07/18 07:15 Pulse Ox 95 09/07/18 07:15 Intake & Output 09/06/18 09/07/18 09/07/18 18:59 06:59 18:59 Intake Total 300 Output Total 972 1200 Balance -672 -1200 Intake: Oral 300 Output: Urine 600 1200 Post Void Residual 372 Other: Voiding Method Toilet Indwelling Catheter Indwelling Catheter Diaper # Voids 1 - Exam Head normocephalic Neck supple Lungs clear to auscultation bilaterally no wheezing or crackles Heart regular rate and rhythm S1-S2, no rub or gallop Abdomen is soft tenderness more on the right side today nondistended positive bowel sounds no hepatosplenomegaly Extremities no edema Neuro alert and orientated to 3 - Labs CBC & Chem 7: 09/07/18 06:52 09/07/18 06:52 Labs: Abnormal Lab Results - Last 24 Hours (Table) 09/06/18 09/07/18 09/07/18 Range/Units 11:40 06:52 06:52 WBC 2.5 L (3.8-10.6) k/uL Plt Count 93 L (150-450) k/uL Lymphocytes # 0.6 L (1.0-4.8) k/uL Carbon Dioxide 32 H (22-30) mmol/L BUN 19 H (7-17) mg/dL Creatinine 1.12 H (0.52-1.04) mg/dL Glucose 106 H (74-99) mg/dL AST 74 H (14-36) U/L ALT 98 H (9-52) U/L Total Protein 5.2 L (6.3-8.2) g/dL Albumin 3.2 L (3.5-5.0) g/dL Ur Leukocyte Esterase Moderate H (Negative) Urine WBC 10 H (0-5) /hpf Hyaline Casts 34 H (0-2) /lpf Urine Mucus Occasional H (None) /hpf Assessment and Plan Assessment: 1. Chest pain: Acute coronary event ruled out. Troponins are negative 3 sets. EKG showing sinus rhythm. Chest x-ray negative. Lexiscan stress test negative. 2. Abdominal pain: Abdominal ultrasound was suboptimal. Hepatic steatosis is demonstrated within the visualized portions of the liver. Patient does have a history of a cholecystectomy. Lipase is normal. 3. Acute kidney injury: Likely related to dehydration and diuretics. Creatinine is still remaining elevated at 1.12. Discontinue Lasix. Continue fluids at 50 mL an hour. 4. History of multiple sclerosis 5. 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 History of PE and DVT anticoagulated with Coumadin INR subtherapeutic at 1.8. Patient is scheduled for Coumadin 7.5 mg tonight. 7. Leukopenia and thrombocytopenia: Continue to monitor 8. Hyperlipidemia 9. History of fibroid myalgia 10. History of depression 11. History of hypothyroidism continue Synthroid 12. History of constipation 13. Elevated LFTs: AST 74 and ALT is 98. Discontinue Pravachol. Repeat LFTs in a.m. 14. UTI: Await urine culture. Continue IV Rocephin 15. Urinary retention: Patient is amor catheter in place. GI prophylaxis Protonix and DVT prophylaxis Coumadin I performed an examination of the patient and discussed their management with the physician [employer]. I have reviewed the Physician [employer]'s notes and agree with the documented findings and plan of care
[2018-09-07] MEDS: SODIUM CHLORIDE 0.9% 1,000 ML IV SCH ×2 (10:46→18:37)
[2018-09-07] MEDS ORDERED: SODIUM CHLORIDE 0.9% 500 ML 500 ML IV ONE (11:57)
[2018-09-07 12:14] LABS: INR 1.9 (<1.2); Prothrombin Time 18.9 sec (9.0-12.0)
--- NOTE | 2018-09-07 13:28 | EST ---
EXERCISE STRESS DATE OF SERVICE: 09/07/2018 AGE: 62 SEX: Female HT: 5'5" WT: 222 pounds PROTOCOL: Lexiscan Cardiolite STAGE: DURATION OF EXERCISE: HEART RATE REST: 52 BLOOD PRESSURE REST: 147/81 MAXIMUM HEART RATE ACHIEVED: 79 MAXIMUM BLOOD PRESSURE: 147/81 85% MPHR: 133 100% MPHR: 156 METS: INDICATIONS: Chest pain. CLINICAL INFORMATION: STRESS DATA: Heart rate 52, pressure is 147/81 mmHg. Baseline EKG showed sinus mechanism. A 0.4 mg of Lexiscan given over 15 seconds per protocol. Max heart rate was 79 beats per minute. Maximum pressure was 147/81 mmHg. Clinically the patient did not have any symptoms and the EKG did not show any significant ST or T-wave abnormalities concerning for ischemia. CONCLUSION: 1. Nondiagnostic electrocardiogram stress testing in response to Lexiscan. 2. Please follow up on the Cardiolite portion on separate report. MMODL / IJN: [id number] /
[2018-09-07] MEDS: FERROUS SULFATE 325 MG TAB PO SCH (18:00)
[2018-09-07] MEDS: MONTELUKAST 10 MG TAB PO SCH (18:00)
[2018-09-07] MEDS: BACLOFEN 10 MG TAB PO SCH (18:00)
[2018-09-07] MEDS: LORATADINE 10 MG TAB PO SCH (18:00)
[2018-09-07] MEDS: WARFARIN 7.5 MG TAB PO SCH (18:03)
[2018-09-07] MEDS: CITALOPRAM HYDROBROMIDE 20 MG TAB PO SCH (21:35)
[2018-09-08] MEDS: LEVOTHYROXINE 50 MCG TAB PO SCH (06:29)
[2018-09-08] MEDS: SODIUM CHLORIDE 0.9% 1,000 ML IV SCH ×3 (06:44→20:05)
[2018-09-08] MEDS ORDERED: BISACODYL 10 MG SUPP RECTAL STA (09:24)
--- NOTE | 2018-09-08 09:37 | P.GSCN ---
History of Present Illness Consult date: 09/08/18 Reason for Consult: Urinary retention History of present illness: The patient is a 66-year-old female admitted on evaluation of left-sided chest pain. A cardiac evaluation so far has not determined a cause of the pain. The patient says the pain has essentially resolved. The patient does complain of some discomfort in the right lower quadrant and right flank. A bladder scan was performed on 09/06 and showed 372 mL in the bladder. A Vasques catheter was placed and drained 400 mL. It's unclear whether this was a postvoid residual. I was asked to see the patient due to what appears to be urinary retention. Patient denied any difficulty voiding prior to being admitted. She has expressive aphasia but appears to have then voiding every 2-3 hours during the day and once at night. She denied incontinence. She denies fecal incontinence. She has not had a bowel movement since 09/04 or 09/05. She was evaluated by Dr. Barrow in 2013 due to urinary retention which apparently resolved after a short period of catheter drainage. She was seen by him again in 05/2018 after a computed tomography scan of the abdomen showed evidence of nonspecific bladder wall thickening. Cystoscopy was recommended but has not been performed. Review of Systems - Constitutional Denies fever - Cardiovascular Reports as per HPI, Denies shortness of breath - Respiratory Denies cough - Gastrointestinal Reports as per HPI - Genitourinary Genitourinary: Reports as per HPI Past Medical History Past Medical History: Chest Pain / Angina, CVA/TIA, Fibromyalgia, Musculoskeletal Disorder, Neurologic Disorder, Osteoarthritis (OA), Pulmonary Embolus (PE), Sleep Apnea/CPAP/BIPAP, Thyroid Disorder Additional Past Medical History / Comment(s): MULTIPLE SCLEROSIS, 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 PAINFUL FOR HER TO LIE FLAT. HX OF NOSEBLEED JUL 2014 AND RECEIVED PLASMA TRANSFUSION. takes pills with applesauce. 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 MDRO Source:: URINE Past Surgical History: Appendectomy, Cholecystectomy, Hysterectomy (-Abdominal hysterectomy) Additional Past Surgical History / Comment(s): Incisional hernia repair, laparoscopic lysis of adhesions in 1987, ganglion cyst removal of the left wrist, patent foramen ovale patch in 2006, RF ablation for back pain. Past Anesthesia/Blood Transfusion Reactions: No Reported Reaction Past Psychological History: Depression Smoking Status: Never smoker Past Alcohol Use History: None Reported Past Drug Use History: None Reported Additional Drug Use History / Comment(s): Lives at home with her requires some assistance with ADLs at times - Past Family History Mother Family Medical History: Hypertension Additional Family Medical History / Comment(s): osteoporosis Father Family Medical History: Dementia Medications and Allergies Home Medications Medication Instructions Recorded Confirmed Type Aspirin 81 mg PO DAILY@0911/08/13 09/05/18 History Baclofen [Lioresal] 10 mg PO DAILY@169911/08/13 09/05/18 History Citalopram Hydrobromide [CeleXA] 40 mg PO HS@2100 11/08/13 09/05/18 History Ferrous Sulfate [Feosol] 325 mg PO DAILY@169911/08/13 09/05/18 History Fexofenadine HCl [Mimi Allergy] 180 mg PO DAILY@169911/08/13 09/05/18 History Furosemide [Lasix] 40 mg PO BID@0900,17011/08/13 09/05/18 History Montelukast [Singulair] 10 mg PO DAILY@169911/08/13 09/05/18 History Nitroglycerin Sl Tabs [Nitrostat] 0.4 mg SUBLINGUAL Q5M PRN 11/08/13 09/05/18 History Pantoprazole Sodium [Protonix] 40 mg PO DAILY@89911/08/13 09/05/18 History Potassium Chloride 20 meq PO BID@0900,1700 11/08/13 09/05/18 History Cholecalciferol [Vitamin D3] 2,000 unit PO DAILY@89911/18/15 09/05/18 History Fluticasone Nasal [place] [Flonase 1 spray EA NOSTRIL DAILY@0911/18/15 09/05/18 History Nasal [place]] Methylphenidate HCl [Ritalin] 20 mg PO BID@0900,1200 11/18/15 09/05/18 History Pravastatin Sodium [Pravachol] 20 mg PO HS@2100 11/17/16 03/06/19 History fentaNYL [Fentanyl] 25 mcg TRANSDERM Q72H PRN 11/18/15 09/05/18 History Pregabalin [Lyrica] 100 mg PO TID@0900,1700,2100 07/13/16 09/05/18 History Folic Acid 0.4 mg PO DAILY@0900 08/18/16 09/05/18 History Dimethyl Fumarate [Tecfidera] 240 mg PO BID@0900,2100 04/04/18 09/05/18 History Levothyroxine Sodium [Synthroid] 50 mcg PO DAILY 05/29/18 09/05/18 History HYDROcodone/APAP 5-325MG [Reva 1 tab PO Q6H PRN 09/05/18 09/05/18 History 5-325] Warfarin [Coumadin] 7.5 mg PO DAILY@1700 09/05/18 09/05/18 History Allergies Allergy/AdvReac Type Severity Reaction Status Date / Time adhesive Allergy SKIN Verified 09/05/18 20:47 [facility] - Exam Vital Signs Temp Pulse Resp BP Pulse Ox 97.8 F 73 18 113/53 98 09/05/18 13:36 09/05/18 13:36 09/05/18 13:36 09/05/18 13:36 09/05/18 13:36 - General well developed, well nourished, no distress, obese - ENT no hearing loss - Neck no masses, no lymphadectomy - Respiratory normal respiratory effort - Abdomen Abdomen: soft, tender (Right lower quadrant and right flank), no organomegaly, no masses, no distended - Genitourinary normal external genitalia, other (No cystocele. No palpable pelvic mass. A urethral catheter is in place and is draining clear urine. A moderate amount of stool is present in the rectum.) - Psychiatric oriented to time, oriented to place, other (Moderate expressive aphasia) Results - Labs 09/07/18 06:52 09/07/18 06:52 Abnormal Lab Results - Last 24 Hours (Table) 09/07/18 Range/Units 11:48 PT 18.9 H (9.0-12.0) sec INR 1.9 H (<1.2) Microbiology - Last 24 Hours (Table) 09/06/18 11:40 Urine Culture - Preliminary Urine,Voided Assessment and Plan (1) Urinary retention Narrative/Plan: The source of the patient's urinary retention is not clear as she did not appear to have difficulty voiding prior to being admitted. She had a brief episode of urinary retention in 2013. Her current problem may be related to some element of constipation or fecal impaction. She will be given a suppository and if she has a bowel movement her catheter can be removed later today for a voiding trial. Current Visit: No Status: Acute Code(s): R33.9 - RETENTION OF URINE, UNSPECIFIED SNOMED Code(s): 507863095
[2018-09-08 09:46] LABS: INR 2.1 (<1.2); Prothrombin Time 20.1 sec (9.0-12.0)
[2018-09-08 10:09] LABS: Albumin 3.3 g/dL (3.5-5.0); Potassium 4.3 mmol/L (3.5-5.1); Total Bilirubin 0.5 mg/dL (0.2-1.3); Total Protein 5.3 g/dL (6.3-8.2)
[2018-09-08] MEDS: FOLIC ACID 1 MG TAB PO SCH (10:20)
[2018-09-08] MEDS: ASPIRIN 81 MG PO SCH (10:20)
[2018-09-08] MEDS: CHOLECALCIFEROL 1,000 UNIT TAB PO SCH (10:20)
[2018-09-08] MEDS: PREGABALIN 100 MG CAP PO SCH ×3 (10:20→20:02)
[2018-09-08] MEDS: METHYLPHENIDATE HCL 10 MG TAB PO SCH ×3 (10:20→16:27)
[2018-09-08] MEDS: PANTOPRAZOLE 40 MG TABLET PO SCH (10:20)
[2018-09-08] MEDS: POTASSIUM CHLORIDE ER 20 MEQ TAB.ER PO SCH ×2 (10:20→16:27)
[2018-09-08] MEDS: Dimethyl Fumarate [Tecfidera] PO SCH ×2 (10:21→20:02)
[2018-09-08] MEDS: FLUTICASONE 50MCG/SPRAY NASAL 16GM EA NOSTRIL SCH (10:28)
[2018-09-08 11:38] LABS: Basophils % (A) 1 %; Eosinophils # (A) 0.1 k/uL (0-0.7); Eosinophils % (A) 4 %; HCT 40.3 % (34.0-46.0); HGB 13.1 gm/dL (11.4-16.0); Lymphocytes # (A) 0.4 k/uL (1.0-4.8); Lymphocytes % (A) 20 %; MCH 30.1 pg (25.0-35.0); MCHC 32.5 g/dL (31.0-37.0); MCV 92.7 fL (80.0-100.0); Mean Platelet Volume 10.9; Monocytes # (A) 0.1 k/uL (0-1.0); Monocytes % (A) 6 %; Neutrophils # (A) 1.3 k/uL (1.3-7.7); Neutrophils % (A) 67 %; RBC 4.35 m/uL (3.80-5.40); WBC 1.9 k/uL (3.8-10.6)
[2018-09-08 12:35] LABS: Platelet Count 75 k/uL (150-450)
--- NOTE | 2018-09-08 13:02 | P.PN ---
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 Patient presents to the emergency room with complaints of left-sided chest pain. She is admitted to the observation unit. Troponins are negative 3 sets EKG showing sinus rhythm. She was seen evaluated by cardiology the recommending abdominal workup. Patient did have some right upper quadrant epigastric and lower pelvic tenderness. AST 88 ALT 66. Lipase was normal. Chest x-rays negative. Abdominal ultrasound has been ordered. Patient does have a history of cholecystectomy. White count 3.7 platelets are 96 and creatinine 1.12. Patient is sleeping comfortably. Patient denies any nausea or vomiting. Note that she is difficult to understand and poor historian. She may have had issues with constipation but it appears she did have a bowel movement yesterday per nursing staff. She denies any shortness of breath. Denies any fevers chills or sweats. Denies any cough denies any burning with urination. 09/07/2018 patient underwent Lexiscan stress test today. No evidence of stress induced reversible ischemia. Patient eating pudding. She states she is feeling slightly better. She had urinary retention yesterday and required Amor catheter be placed. She's found have evidence of a UTI and was started on Rocephin. Awaiting urine culture. Patient denies any nausea or vomiting. She does reports right-sided abdominal pain. Last bowel movement September 05 On 09/08/2018 patient is alert and oriented 3 in no apparent distress she is sitting up in a chair she is complaining of constipation and abdominal discomfort otherwise no complaints at this time she had urinary retention and have a Amor catheter at this time. There is no fever or chills no headache or dizziness no chest pain no shortness of breath no cough no nausea or vomiting no diarrhea and no urinary symptoms otherwise. Objective - Vital Signs Vital signs: Vital Signs Temp 98.9 F 09/08/18 07:24 Pulse 52 L 09/08/18 07:24 Resp 14 09/08/18 05:30 BP 108/53 09/08/18 07:24 Pulse Ox 96 09/08/18 07:24 Intake & Output 09/07/18 09/08/18 09/08/18 18:59 06:59 18:59 Intake Total 440 1075 80 Output Total 700 600 Balance -260 475 80 Intake: Intake, IV Titration 775 80 Amount Sodium Chloride 0.9% 1, 80 000 ml @ 20 mls/hr IV . Q24H [facility] Rx#:[id number] Sodium Chloride 0.9% 1, 400 000 ml @ 50 mls/hr IV . Q20H [facility] Rx#:[id number] cefTRIAXone 1 gm In 375 Sodium Chloride 0.9% 50 ml @ 100 mls/hr IVPB Q24HR [facility] Rx#:[id number] Oral 440 300 Output: Urine 700 600 Other: Voiding Method Indwelling Catheter Indwelling Catheter Indwelling Catheter - Exam Head normocephalic and atraumatic Neck supple no JVD no goiter Lungs clear to auscultation bilaterally no wheezing or crackles Heart regular rate and rhythm S1-S2, no rub or gallop Abdomen is soft tenderness more on the right side today nondistended positive bowel sounds no hepatosplenomegaly Extremities no edema no cyanosis or clubbing Neuro alert and orientated to 3 - Labs CBC & Chem 7: 09/08/18 09:06 09/08/18 09:06 Labs: Abnormal Lab Results - Last 24 Hours (Table) 09/08/18 09/08/18 09/08/18 Range/Units 09:06 09:06 09:06 WBC 1.9 L (3.8-10.6) k/uL Plt Count 75 L (150-450) k/uL Lymphocytes # 0.4 L (1.0-4.8) k/uL PT 20.1 H (9.0-12.0) sec INR 2.1 H (<1.2) Chloride 108 H (98-107) mmol/L Creatinine 1.06 H (0.52-1.04) mg/dL Glucose 183 H (74-99) mg/dL ALT 75 H (9-52) U/L Total Protein 5.3 L (6.3-8.2) g/dL Albumin 3.3 L (3.5-5.0) g/dL Microbiology - Last 24 Hours (Table) 09/06/18 11:40 Urine Culture - Final Urine,Voided Assessment and Plan Plan: 1. Chest pain: Acute coronary event ruled out. Troponins are negative 3 sets. EKG showing sinus rhythm. Chest x-ray negative. Lexiscan stress test negative. 2. Abdominal pain: Abdominal ultrasound was suboptimal. Hepatic steatosis is demonstrated within the visualized portions of the liver. Patient does have a history of a cholecystectomy. Lipase is normal. 3. Acute kidney injury: Likely related to dehydration and diuretics. Creatinine is still remaining elevated at 1.12. Discontinue Lasix. Continue fluids at 50 mL an hour. 4. History of multiple sclerosis 5. 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 History of PE and DVT anticoagulated with Coumadin INR subtherapeutic at 1.8. Patient is scheduled for Coumadin 7.5 mg tonight. 7. Leukopenia and thrombocytopenia: Continue to monitor 8. Hyperlipidemia 9. History of fibroid myalgia 10. History of depression 11. History of hypothyroidism continue Synthroid 12. History of constipation 13. Elevated LFTs: AST 74 and ALT is 98. Discontinue Pravachol. Repeat LFTs in a.m. 14. UTI: Await urine culture. Continue IV Rocephin 15. Urinary retention: Patient is amor catheter in place. Input from urology reviewed currently patient still constipated she is receiving medication for GI prophylaxis Protonix and DVT prophylaxis Coumadin
[2018-09-08] MEDS: LORATADINE 10 MG TAB PO SCH (16:27)
[2018-09-08] MEDS: BACLOFEN 10 MG TAB PO SCH (16:27)
[2018-09-08] MEDS: WARFARIN 7.5 MG TAB PO SCH (16:27)
[2018-09-08] MEDS: FERROUS SULFATE 325 MG TAB PO SCH (16:27)
[2018-09-08] MEDS: MONTELUKAST 10 MG TAB PO SCH (16:27)
[2018-09-08] MEDS: CITALOPRAM HYDROBROMIDE 20 MG TAB PO SCH (20:02)
[2018-09-09] MEDS: LEVOTHYROXINE 50 MCG TAB PO SCH (06:18)
[2018-09-09] MEDS: POTASSIUM CHLORIDE ER 20 MEQ TAB.ER PO SCH ×2 (08:33→17:01)
[2018-09-09] MEDS: PANTOPRAZOLE 40 MG TABLET PO SCH (08:33)
[2018-09-09] MEDS: PREGABALIN 100 MG CAP PO SCH ×3 (08:33→21:03)
[2018-09-09] MEDS: CHOLECALCIFEROL 1,000 UNIT TAB PO SCH (08:33)
[2018-09-09] MEDS: ASPIRIN 81 MG PO SCH (08:33)
[2018-09-09] MEDS: FOLIC ACID 1 MG TAB PO SCH (08:33)
[2018-09-09] MEDS: METHYLPHENIDATE HCL 10 MG TAB PO SCH ×2 (08:33→11:34)
[2018-09-09] MEDS: Dimethyl Fumarate [Tecfidera] PO SCH ×2 (08:34→21:03)
[2018-09-09 08:43] LABS: INR 1.9 (<1.2); Prothrombin Time 18.5 sec (9.0-12.0)
[2018-09-09 08:45] LABS: Basophils % (A) 1 %; Eosinophils # (A) 0.1 k/uL (0-0.7); Eosinophils % (A) 4 %; HCT 40.3 % (34.0-46.0); HGB 13.1 gm/dL (11.4-16.0); Lymphocytes # (A) 0.6 k/uL (1.0-4.8); Lymphocytes % (A) 24 %; MCH 29.4 pg (25.0-35.0); MCHC 32.5 g/dL (31.0-37.0); MCV 90.5 fL (80.0-100.0); Mean Platelet Volume 11.6; Monocytes # (A) 0.1 k/uL (0-1.0); Monocytes % (A) 6 %; Neutrophils # (A) 1.5 k/uL (1.3-7.7); Neutrophils % (A) 62 %; Platelet Count 88 k/uL (150-450); RBC 4.45 m/uL (3.80-5.40); WBC 2.4 k/uL (3.8-10.6)
[2018-09-09] MEDS: FLUTICASONE 50MCG/SPRAY NASAL 16GM EA NOSTRIL SCH (08:46)
[2018-09-09 08:56] LABS: Albumin 3.4 g/dL (3.5-5.0); Potassium 4.5 mmol/L (3.5-5.1); Total Bilirubin 0.4 mg/dL (0.2-1.3); Total Protein 5.4 g/dL (6.3-8.2)
[2018-09-09 10:03] LABS: Large Platelets Present
[2018-09-09] MEDS ORDERED: LACTULOSE 20 GM/30 ML CUP PO ONE (12:40)
--- NOTE | 2018-09-09 13:16 | P.PN ---
Subjective Progress Note Date: 09/09/18 This is a 62-year-old female with a known past medical history of multiple sclerosis, CVA with right-sided weakness and expressive aphasia, PE and DVT anticoagulated on Coumadin. Patient presents to the emergency room with complaints of left-sided chest pain. She is admitted to the observation unit. Troponins are negative 3 sets EKG showing sinus rhythm. She was seen evaluated by cardiology the recommending abdominal workup. Patient did have some right upper quadrant epigastric and lower pelvic tenderness. AST 88 ALT 66. Lipase was normal. Chest x-rays negative. Abdominal ultrasound has been ordered. Patient does have a history of cholecystectomy. White count 3.7 platelets are 96 and creatinine 1.12. Patient is sleeping comfortably. Patient denies any nausea or vomiting. Note that she is difficult to understand and poor historian. She may have had issues with constipation but it appears she did have a bowel movement yesterday per nursing staff. She denies any shortness of breath. Denies any fevers chills or sweats. Denies any cough denies any burning with urination. 09/07/2018 patient underwent Lexiscan stress test today. No evidence of stress induced reversible ischemia. Patient eating pudding. She states she is feeling slightly better. She had urinary retention yesterday and required Amor catheter be placed. She's found have evidence of a UTI and was started on Rocephin. Awaiting urine culture. Patient denies any nausea or vomiting. She does reports right-sided abdominal pain. Last bowel movement September 05 On 09/08/2018 patient is alert and oriented 3 in no apparent distress she is sitting up in a chair she is complaining of constipation and abdominal discomfort otherwise no complaints at this time she had urinary retention and have a Amor catheter at this time. There is no fever or chills no headache or dizziness no chest pain no shortness of breath no cough no nausea or vomiting no diarrhea and no urinary symptoms otherwise. On 09/09/2018 patient was seen and examined on the medical floor she is laying comfortably in bed she is alert and oriented 3 in no apparent distress she is still complaining of constipation otherwise no complaints there is no fever or chills no headache or dizziness no chest pain no shortness of breath no cough no nausea or vomiting no abdominal pain no diarrhea and no urinary symptoms. Patient still has Amor catheter in. Per urology recommendation will proceed with trial to remove Amor catheter and assess the post void residual once constipation has resolved. Objective - Vital Signs Vital signs: Vital Signs Temp 97.8 F 09/09/18 07:22 Pulse 48 L 09/09/18 08:00 Resp 18 09/09/18 08:00 BP 92/54 09/09/18 07:22 Pulse Ox 96 09/09/18 07:22 Intake & Output 09/08/18 09/09/18 09/09/18 17:59 06:59 18:59 Intake Total Output Total Balance Intake: Intake, IV Titration Amount Sodium Chloride 0.9% 1, 000 ml @ 20 mls/hr IV . Q24H [facility] Rx#:[id number] Sodium Chloride 0.9% 1, 000 ml @ 50 mls/hr IV . Q20H [facility] Rx#:[id number] cefTRIAXone 1 gm In Sodium Chloride 0.9% 50 ml @ 100 mls/hr IVPB Q24HR [facility] Rx#:[id number] Oral Output: Urine Uretheral (Amor) Other: Voiding Method Indwelling Catheter - Exam Head normocephalic and atraumatic Neck supple no JVD no goiter Lungs clear to auscultation bilaterally no wheezing or crackles Heart regular rate and rhythm S1-S2, no rub or gallop Abdomen is soft tenderness more on the right side today nondistended positive bowel sounds no hepatosplenomegaly Extremities no edema no cyanosis or clubbing Neuro alert and orientated to 3 - Labs CBC & Chem 7: 09/09/18 07:59 09/09/18 07:59 Labs: Abnormal Lab Results - Last 24 Hours (Table) 09/08/18 09/09/18 09/09/18 Range/Units 09:06 07:59 07:59 WBC 1.9 L 2.4 L (3.8-10.6) k/uL Plt Count 75 L 88 L (150-450) k/uL Lymphocytes # 0.4 L 0.6 L (1.0-4.8) k/uL PT (9.0-12.0) sec INR (<1.2) Chloride 108 H (98-107) mmol/L Glucose 105 H (74-99) mg/dL ALT 64 H (9-52) U/L Total Protein 5.4 L (6.3-8.2) g/dL Albumin 3.4 L (3.5-5.0) g/dL 09/09/18 Range/Units 07:59 WBC (3.8-10.6) k/uL Plt Count (150-450) k/uL Lymphocytes # (1.0-4.8) k/uL PT 18.5 H (9.0-12.0) sec INR 1.9 H (<1.2) Chloride (98-107) mmol/L Glucose (74-99) mg/dL ALT (9-52) U/L Total Protein (6.3-8.2) g/dL Albumin (3.5-5.0) g/dL Microbiology - Last 24 Hours (Table) 09/06/18 11:40 Urine Culture - Final Urine,Voided Assessment and Plan Plan: 1. Chest pain: Acute coronary event ruled out. Troponins are negative 3 sets. EKG showing sinus rhythm. Chest x-ray negative. Lexiscan stress test negative. 2. Abdominal pain: Abdominal ultrasound was suboptimal. Hepatic steatosis is demonstrated within the visualized portions of the liver. Patient does have a history of a cholecystectomy. Lipase is normal. 3. Acute kidney injury: Likely related to dehydration and diuretics. Creati nine is still remaining elevated at 1.12. Discontinue Lasix. Continue fluids at 50 mL an hour. 4. History of multiple sclerosis 5. 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 History of PE and DVT anticoagulated with Coumadin INR subtherapeutic at 1.8. Patient is scheduled for Coumadin 7.5 mg tonight. 7. Leukopenia and thrombocytopenia: Continue to monitor 8. Hyperlipidemia 9. History of fibroid myalgia 10. History of depression 11. History of hypothyroidism continue Synthroid 12. History of constipation 13. Elevated LFTs: AST 74 and ALT is 98. Discontinue Pravachol. Repeat LFTs in a.m. 14. UTI: Await urine culture. Continue IV Rocephin 15. Urinary retention: Patient is amor catheter in place. Input from urology reviewed currently patient still constipated she is receiving medication for GI prophylaxis Protonix and DVT prophylaxis Coumadin
[2018-09-09] MEDS: FERROUS SULFATE 325 MG TAB PO SCH (17:01)
[2018-09-09] MEDS: WARFARIN 7.5 MG TAB PO SCH (17:01)
[2018-09-09] MEDS: MONTELUKAST 10 MG TAB PO SCH (17:01)
[2018-09-09] MEDS: LORATADINE 10 MG TAB PO SCH (17:01)
[2018-09-09] MEDS: BACLOFEN 10 MG TAB PO SCH (17:01)
[2018-09-09] MEDS: SODIUM CHLORIDE 0.9% 1,000 ML IV SCH ×2 (19:02)
[2018-09-09] MEDS: CITALOPRAM HYDROBROMIDE 20 MG TAB PO SCH (21:02)
[2018-09-09] MEDS: ACETAMINOPHEN TAB 325 MG TAB PO PRN (21:13)
[2018-09-10] MEDS: LEVOTHYROXINE 50 MCG TAB PO SCH (06:13)
[2018-09-10 08:15] LABS: Basophils % (A) 0 %; Eosinophils # (A) 0.1 k/uL (0-0.7); Eosinophils % (A) 5 %; HCT 38.5 % (34.0-46.0); HGB 12.8 gm/dL (11.4-16.0); Lymphocytes # (A) 0.6 k/uL (1.0-4.8); Lymphocytes % (A) 23 %; MCHC 33.3 g/dL (31.0-37.0); MCV 90.1 fL (80.0-100.0); Mean Platelet Volume 10.8; Monocytes # (A) 0.2 k/uL (0-1.0); Monocytes % (A) 7 %; Neutrophils # (A) 1.6 k/uL (1.3-7.7); Neutrophils % (A) 62 %; RBC 4.27 m/uL (3.80-5.40); RDW 13.9 % (11.5-15.5); WBC 2.6 k/uL (3.8-10.6)
[2018-09-10 08:32] LABS: INR 1.8 (<1.2); Prothrombin Time 17.6 sec (9.0-12.0)
[2018-09-10 08:36] LABS: Platelet Count 80 k/uL (150-450)
[2018-09-10 08:42] LABS: Albumin 3.2 g/dL (3.5-5.0); Calcium 8.8 mg/dL (8.4-10.2); Potassium 4.4 mmol/L (3.5-5.1); Total Bilirubin 0.5 mg/dL (0.2-1.3); Total Protein 5.2 g/dL (6.3-8.2)
[2018-09-10] MEDS: CHOLECALCIFEROL 1,000 UNIT TAB PO SCH (09:25)
[2018-09-10] MEDS: ASPIRIN 81 MG PO SCH (09:25)
[2018-09-10] MEDS: POTASSIUM CHLORIDE ER 20 MEQ TAB.ER PO SCH ×2 (09:25→18:05)
[2018-09-10] MEDS: PANTOPRAZOLE 40 MG TABLET PO SCH (09:26)
[2018-09-10] MEDS: PREGABALIN 100 MG CAP PO SCH ×3 (09:26→20:11)
[2018-09-10] MEDS: METHYLPHENIDATE HCL 10 MG TAB PO SCH ×2 (09:26→15:25)
[2018-09-10] MEDS: FOLIC ACID 1 MG TAB PO SCH (09:26)
[2018-09-10] MEDS: Dimethyl Fumarate [Tecfidera] PO SCH ×2 (09:28→20:12)
[2018-09-10] MEDS: FLUTICASONE 50MCG/SPRAY NASAL 16GM EA NOSTRIL SCH (09:31)
--- NOTE | 2018-09-10 10:56 | P.PN ---
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 Patient presents to the emergency room with complaints of left-sided chest pain. She is admitted to the observation unit. Troponins are negative 3 sets EKG showing sinus rhythm. She was seen evaluated by cardiology the recommending abdominal workup. Patient did have some right upper quadrant epigastric and lower pelvic tenderness. AST 88 ALT 66. Lipase was normal. Chest x-rays negative. Abdominal ultrasound has been ordered. Patient does have a history of cholecystectomy. White count 3.7 platelets are 96 and creatinine 1.12. Patient is sleeping comfortably. Patient denies any nausea or vomiting. Note that she is difficult to understand and poor historian. She may have had issues with constipation but it appears she did have a bowel movement yesterday per nursing staff. She denies any shortness of breath. Denies any fevers chills or sweats. Denies any cough denies any burning with urination. 09/07/2018 patient underwent Lexiscan stress test today. No evidence of stress induced reversible ischemia. Patient eating pudding. She states she is feeling slightly better. She had urinary retention yesterday and required Vasques catheter be placed. She's found have evidence of a UTI and was started on Rocephin. Awaiting urine culture. Patient denies any nausea or vomiting. She does reports right-sided abdominal pain. Last bowel movement September 05 On 09/08/2018 patient is alert and oriented 3 in no apparent distress she is sitting up in a chair she is complaining of constipation and abdominal discomfort otherwise no complaints at this time she had urinary retention and have a Vasques catheter at this time. There is no fever or chills no headache or dizziness no chest pain no shortness of breath no cough no nausea or vomiting no diarrhea and no urinary symptoms otherwise. On 09/09/2018 patient was seen and examined on the medical floor she is laying comfortably in bed she is alert and oriented 3 in no apparent distress she is still complaining of constipation otherwise no complaints there is no fever or chills no headache or dizziness no chest pain no shortness of breath no cough no nausea or vomiting no abdominal pain no diarrhea and no urinary symptoms. Patient still has Vasques catheter in. Per urology recommendation will proceed with trial to remove Vasques catheter and assess the post void residual once constipation has resolved. 09/10/2018 patient had 2 bowel movements yesterday. Vasques catheter was removed. Patient has urinated. We'll have nursing staff check post void residual. Patient sitting at bedside chair. She is still sleepy. She is easily awakened. She is still complaining of some right-sided abdominal discomfort. Denies any chest pain or shortness of breath. Denies any nausea or vomiting. Creatinine normal at 0.94. IV fluids will be discontinued. Physical therapy consulted Objective - Vital Signs Vital signs: Vital Signs Temp 97.6 F 09/10/18 07:14 Pulse 52 L 09/10/18 09:18 Resp 15 09/09/18 23:28 BP 102/55 09/10/18 09:18 Pulse Ox 97 09/10/18 09:04 Intake & Output 09/09/18 09/10/18 09/10/18 18:59 06:59 18:59 Intake Total 50 1040 Output Total 475 300 Balance -425 740 Intake: Intake, IV Titration 50 500 Amount cefTRIAXone 1 gm In 50 500 Sodium Chloride 0.9% 50 ml @ 100 mls/hr IVPB Q24HR [facility] Rx#:[id number] Oral 540 Output: Urine 475 300 Uretheral (Vasques) 475 300 Other: Voiding Method Indwelling Catheter Indwelling Catheter Toilet # Voids 1 # Bowel Movements 2 - Exam Head normocephalic Neck supple Lungs clear to auscultation bilaterally no wheezing or crackles Heart regular rate and rhythm S1-S2, no rub or gallop Abdomen is soft tenderness more on the right side today nondistended positive bowel sounds no hepatosplenomegaly Extremities trace edema bilateral lower extremities Neuro alert and orientated to 3 - Labs CBC & Chem 7: 09/10/18 06:40 09/10/18 06:40 Labs: Abnormal Lab Results - Last 24 Hours (Table) 09/10/18 09/10/18 09/10/18 Range/Units 06:40 06:40 06:40 WBC 2.6 L (3.8-10.6) k/uL Plt Count 80 L (150-450) k/uL Lymphocytes # 0.6 L (1.0-4.8) k/uL PT 17.6 H (9.0-12.0) sec INR 1.8 H (<1.2) Chloride 110 H (98-107) mmol/L ALT 58 H (9-52) U/L Total Protein 5.2 L (6.3-8.2) g/dL Albumin 3.2 L (3.5-5.0) g/dL Assessment and Plan Assessment: 1. Chest pain: Acute coronary event ruled out. Troponins are negative 3 sets. EKG showing sinus rhythm. Chest x-ray negative. Lexiscan stress test negative. 2. Abdominal pain: Abdominal ultrasound was suboptimal. Hepatic steatosis is demonstrated within the visualized portions of the liver. Patient does have a history of a cholecystectomy. Lipase is normal. Abdominal discomfort possibly related to constipation and urinary retention 3. Acute kidney injury: Likely related to dehydration and diuretics. Creat inine has normalized. Hep-Lock IV fluids. 4. History of multiple sclerosis 5. 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 History of PE and DVT anticoagulated with Coumadin . Continue monitor PT INR. Pharmacy to dose Coumadin 7. Leukopenia and thrombocytopenia: Continue to monitor 8. Hyperlipidemia 9. History of fibromyalgia 10. History of depression 11. History of hypothyroidism continue Synthroid 12. History of constipation 13. Elevated LFTs: AST 74 and ALT is 98. Discontinue Pravachol. LFTs trending down. Continue to monitor 14. UTI: Urine culture growing contamination. Patient currently on Rocephin for UTI 15. Urinary retention: Vasques catheter removed yesterday. Urinary retention possibly related to patient's constipation. Patient did have a bowel movement. Patient evaluated by urology. Check postvoid residual. 16. Mild protein calorie malnutrition. Albumin 3.2. Start ensure Consult physical therapy GI prophylaxis Protonix and DVT prophylaxis Coumadin I performed an examination of the patient and discussed their management with the physician Technical Project Lead. I have reviewed the Physician Technical Project Lead's notes and agree with the documented findings and plan of care
[2018-09-10] MEDS: ACETAMINOPHEN TAB 325 MG TAB PO PRN (12:06)
[2018-09-10 14:30] LABS: T4, Free (Free Thyroxine) 1.09 ng/dL (0.78-2.19)
[2018-09-10] MEDS ORDERED: WARFARIN 10 MG TAB PO ONE (18:00)
[2018-09-10] MEDS: LORATADINE 10 MG TAB PO SCH (18:04)
[2018-09-10] MEDS: BACLOFEN 10 MG TAB PO SCH (18:04)
[2018-09-10] MEDS: FERROUS SULFATE 325 MG TAB PO SCH (18:04)
[2018-09-10] MEDS: MONTELUKAST 10 MG TAB PO SCH (18:04)
[2018-09-10] MEDS: FUROSEMIDE 40 MG TAB PO SCH (18:08)
[2018-09-10] MEDS: CITALOPRAM HYDROBROMIDE 20 MG TAB PO SCH (20:12)
[2018-09-10] MEDS: DOCUSATE 100 MG CAP PO SCH (20:12)
[2018-09-11] MEDS: LEVOTHYROXINE 50 MCG TAB PO SCH (05:46)
[2018-09-11] MEDS: Dimethyl Fumarate [Tecfidera] PO SCH (07:58)
[2018-09-11] MEDS: CHOLECALCIFEROL 1,000 UNIT TAB PO SCH (07:58)
[2018-09-11] MEDS: ASPIRIN 81 MG PO SCH (07:58)
[2018-09-11] MEDS: DOCUSATE 100 MG CAP PO SCH (07:58)
[2018-09-11] MEDS: FOLIC ACID 1 MG TAB PO SCH (07:59)
[2018-09-11] MEDS: PREGABALIN 100 MG CAP PO SCH (07:59)
[2018-09-11] MEDS: FLUTICASONE 50MCG/SPRAY NASAL 16GM EA NOSTRIL SCH (07:59)
[2018-09-11] MEDS: PANTOPRAZOLE 40 MG TABLET PO SCH (07:59)
[2018-09-11] MEDS: METHYLPHENIDATE HCL 10 MG TAB PO SCH ×2 (07:59→11:23)
[2018-09-11] MEDS: POTASSIUM CHLORIDE ER 20 MEQ TAB.ER PO SCH (07:59)
[2018-09-11] MEDS: FUROSEMIDE 40 MG TAB PO SCH (07:59)
[2018-09-11 08:31] LABS: Basophils % (A) 1 %; Eosinophils # (A) 0.1 k/uL (0-0.7); Eosinophils % (A) 4 %; HCT 41.2 % (34.0-46.0); HGB 13.4 gm/dL (11.4-16.0); Lymphocytes # (A) 0.5 k/uL (1.0-4.8); Lymphocytes % (A) 23 %; MCH 29.5 pg (25.0-35.0); MCHC 32.6 g/dL (31.0-37.0); MCV 90.4 fL (80.0-100.0); Mean Platelet Volume 10.1; Monocytes # (A) 0.1 k/uL (0-1.0); Monocytes % (A) 5 %; Neutrophils # (A) 1.5 k/uL (1.3-7.7); Neutrophils % (A) 65 %; RBC 4.56 m/uL (3.80-5.40); WBC 2.3 k/uL (3.8-10.6)
[2018-09-11 08:37] LABS: INR 1.8 (<1.2); Prothrombin Time 18.1 sec (9.0-12.0)
[2018-09-11 08:41] LABS: Albumin 3.5 g/dL (3.5-5.0); Calcium 9.1 mg/dL (8.4-10.2); Potassium 4.2 mmol/L (3.5-5.1); Total Bilirubin 0.6 mg/dL (0.2-1.3); Total Protein 5.6 g/dL (6.3-8.2)
[2018-09-11 08:43] LABS: Platelet Count 92 k/uL (150-450)
[2018-09-11 08:46] VITALS: RESP 12; TEMP 97.9
[2018-09-11 10:02] LABS: Anisocytosis (M) Present
[2018-09-11 10:32] VITALS: BP 119/74; PULSE 69
--- NOTE | 2018-09-11 12:59 | P.DS ---
Providers Date of admission: 09/07/18 13:37 Expected date of discharge: 09/11/18 Attending physician: Sarah Paredes Consults: 09/05/18 16:29 Consult Physician Routine Consulting Provider: Charlie Feliz Consult Reason/Comments: Chest pain Do you want consulting provider notified?: Yes 09/07/18 13:28 Consult Physician Routine Consulting Provider: Rajesh Grider Consult Reason/Comments: urine retention Do you want consulting provider notified?: Yes Primary care physician: Sarah Lena [facility] Course: Discharge diagnosis 1. Chest pain: Acute coronary event ruled out. Troponins are negative 3 sets. EKG showing sinus rhythm. Chest x-ray negative. Lexiscan stress test negative. Patient seen evaluated by cardiology during this admission. She'll follow-up with them outpatient. 2. Abdominal pain: Abdominal ultrasound was suboptimal. Hepatic steatosis is demonstrated within the visualized portions of the liver. Patient does have a history of a cholecystectomy. Lipase is normal. Abdominal discomfort possibly related to constipation and urinary retention 3. Acute kidney injury: Likely related to dehydration and diuretics. Creatinine has normalized. 4. History of multiple sclerosis 5. 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 History of PE and DVT anticoagulated with Coumadin . Continue to monitor PT/INR. While patient follow-up with Dr. Paredes for PT/INR check in 1 week. At this time we'll restart Coumadin 7.5 mg daily except on Sundays to take Coumadin 10 mg daily. Patient will receive Coumadin 10 mg today before discharge 7. Leukopenia and thrombocytopenia: Continue to monitor 8. Hyperlipidemia 9. History of fibromyalgia 10. History of depression 11. History of hypothyroidism: TSH 4.800 and free T4 normal at 1.09 during this admission her levothyroxine was increased to 75 g daily. 12. History of constipation 13. Elevated LFTs: AST 74 and ALT is 98. LFTs have normalized. We will resume patient's cholesterol medication 14. UTI: Urine culture growing contamination. Patient completed 4 days of Rocephin. No further antibiotics needed 15. Urinary retention: Possibly related to patient's constipation. Patient did require Amor catheter be reinserted. She'll be discharged with Amor catheter and will have her follow-up with urology outpatient 16. Mild protein calorie malnutrition. Albumin 3.2. Start ensure 17. Constipation we'll have patient continue Colace after discharge 18. Sinus bradycardia with lowest heart rate around 47. Patient is mostly in the 50s. No evidence of pauses on telemetry. Heart rate at discharge is 69. As noted above thyroid medication was adjusted. 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 Patient presents to the emergency room with complaints of left-sided chest pain. She is admitted to the observation unit. Troponins are negative 3 sets EKG showing sinus rhythm. She was seen evaluated by cardiology the recommending abdominal workup. Patient did have some right up per quadrant epigastric and lower pelvic tenderness. AST 88 ALT 66. Lipase was normal. Chest x-rays negative. Abdominal ultrasound has been ordered. Patient does have a history of cholecystectomy. White count 3.7 platelets are 96 and creatinine 1.12. Patient is sleeping comfortably. Patient denies any nausea or vomiting. Note that she is difficult to understand and poor historian. She may have had issues with constipation but it appears she did have a bowel movement yesterday per nursing staff. She denies any shortness of breath. Denies any fevers chills or sweats. Denies any cough denies any burning with urination. 09/07/2018 patient underwent Lexiscan stress test today. No evidence of stress induced reversible ischemia. Patient eating pudding. She states she is feeling slightly better. She had urinary retention yesterday and required Amor catheter be placed. She's found have evidence of a UTI and was started on Rocephin. Awaiting urine culture. Patient denies any nausea or vomiting. She does reports right-sided abdominal pain. Last bowel movement September 05 On 09/08/2018 patient is alert and oriented 3 in no apparent distress she is sitting up in a chair she is complaining of constipation and abdominal discomfort otherwise no complaints at this time she had urinary retention and have a Amor catheter at this time. There is no fever or chills no headache or dizziness no chest pain no shortness of breath no cough no nausea or vomiting no diarrhea and no urinary symptoms otherwise. On 09/09/2018 patient was seen and examined on the medical floor she is laying comfortably in bed she is alert and oriented 3 in no apparent distress she is still complaining of constipation otherwise no complaints there is no fever or chills no headache or dizziness no chest pain no shortness of breath no cough no nausea or vomiting no abdominal pain no diarrhea and no urinary symptoms. Patient still has Amor catheter in. Per urology recommendation will proceed with trial to remove Amor catheter and assess the post void residual once constipation has resolved. 09/10/2018 patient had 2 bowel movements yesterday. Amor catheter was removed. Patient has urinated. We'll have nursing staff check post void residual. Patient sitting at bedside chair. She is still sleepy. She is easily awakened. She is still complaining of some right-sided abdominal discomfort. Denies any chest pain or shortness of breath. Denies any nausea or vomiting. Creatinine normal at 0.94. IV fluids will be discontinued. Physical therapy consulted 09/11/2018 patient still having evidence of urinary retention and required to be discharged with Amor catheter. She'll follow-up with urology outpatient. She completed treatment for possible UTI. No further antibiotics needed. Thyroid medication was increased during this admission. Constipation also resolved and will continue with a stool softener at home. Patient is medically stable for discharge we'll have her follow up with Dr. Paredes in 1 week at that time PT/INR needs to be rechecked. Further dosing of Coumadin may be necessary. Patient also be following up with urology in 1 week and cardiology. Patient is medically stable for discharge. Please refer to chart for any further details. I performed an examination of the patient and discussed their management with the physician Substation Technician. I have reviewed the Physician Substation Technician's notes and agree with the documented findings and plan of care Patient Condition at Discharge: Stable Plan - Discharge Summary Discharge Rx Participant: No New Discharge Prescriptions: New Docusate [Colace] 100 mg PO BID #30 cap Levothyroxine Sodium [Levoxyl] 75 mcg PO DAILY #30 tab Warfarin [Coumadin] 10 mg PO DAILY #30 tab Continue Baclofen [Lioresal] 10 mg PO DAILY@1700 Aspirin 81 mg PO DAILY@0900 Montelukast [Singulair] 10 mg PO DAILY@1700 Furosemide [Lasix] 40 mg PO BID@0900,1700 Potassium Chloride 20 meq PO BID@0900,1700 Citalopram Hydrobromide [CeleXA] 40 mg PO HS@2100 Nitroglycerin Sl Tabs [Nitrostat] 0.4 mg SUBLINGUAL Q5M PRN PRN Reason: Chest Pain Pantoprazole Sodium [Protonix] 40 mg PO DAILY@0900 Ferrous Sulfate [Feosol] 325 mg PO DAILY@1700 Fexofenadine HCl [Mimi Allergy] 180 mg PO DAILY@1700 Cholecalciferol [Vitamin D3] 2,000 unit PO DAILY@0900 Pravastatin Sodium [Pravachol] 20 mg PO HS@2100 Methylphenidate HCl [Ritalin] 20 mg PO BID@0900,1200 Fluticasone Nasal [place] [Flonase Nasal [place]] 1 spray EA NOSTRIL DAILY@0900 fentaNYL [Fentanyl] 25 mcg TRANSDERM Q72H PRN PRN Reason: Pain Pregabalin [Lyrica] 100 mg PO TID@0900,1700,2099 Folic Acid 0.4 mg PO DAILY@0900 Dimethyl Fumarate [Tecfidera] 240 mg PO BID@0900,2100 HYDROcodone/APAP 5-325MG [[place] 5-325] 1 tab PO Q6H PRN PRN Reason: Pain Warfarin [Coumadin] 7.5 mg PO DAILY@1700 #30 Discontinued Levothyroxine Sodium [Synthroid] 50 mcg PO DAILY Discharge Medication List Aspirin 81 mg PO DAILY@0911/08/13 [History] Baclofen [Lioresal] 10 mg PO DAILY@169911/08/13 [History] Citalopram Hydrobromide [CeleXA] 40 mg PO HS@209911/08/13 [History] Ferrous Sulfate [Feosol] 325 mg PO DAILY@169911/08/13 [History] Fexofenadine HCl [Mimi Allergy] 180 mg PO DAILY@169911/08/13 [History] Furosemide [Lasix] 40 mg PO BID@0900,169911/08/13 [History] Montelukast [Singulair] 10 mg PO DAILY@169911/08/13 [History] Nitroglycerin Sl Tabs [Nitrostat] 0.4 mg SUBLINGUAL Q5M PRN 11/08/13 [History] Pantoprazole Sodium [Protonix] 40 mg PO DAILY@0911/08/13 [History] Potassium Chloride 20 meq PO BID@0900,1700 11/08/13 [History] Cholecalciferol [Vitamin D3] 2,000 unit PO DAILY@0900 11/18/15 [History] Fluticasone Nasal [place] [Flonase Nasal [place]] 1 spray EA NOSTRIL DAILY@0900 11/18/15 [History] Methylphenidate HCl [Ritalin] 20 mg PO BID@0900,1200 11/18/15 [History] Pravastatin Sodium [Pravachol] 20 mg PO HS@2100 11/18/15 [History] fentaNYL [Fentanyl] 25 mcg TRANSDERM Q72H PRN 11/18/15 [History] Pregabalin [Lyrica] 100 mg PO TID@0900,1700,2100 07/13/16 [History] Folic Acid 0.4 mg PO DAILY@0900 08/18/16 [History] Dimethyl Fumarate [Tecfidera] 240 mg PO BID@0900,2100 04/04/18 [History] HYDROcodone/APAP 5-325MG [[place] 5-325] 1 tab PO Q6H PRN 09/05/18 [History] Docusate [Colace] 100 mg PO BID #30 cap 09/11/18 [Rx] Levothyroxine Sodium [Levoxyl] 75 mcg PO DAILY #30 tab 09/11/18 [Rx] Warfarin [Coumadin] 7.5 mg PO DAILY@1700 #30 09/11/18 [Rx] Warfarin [Coumadin] 10 mg PO DAILY #30 tab 09/11/18 [Rx] Follow up Appointment(s)/Referral(s): [facility], [NON-STAFF] - Diaz Dowling MD [STAFF PHYSICIAN] - 1 Week Sarah Paredes MD [Primary Care Provider] - 1 Week Rajesh Grider MD [STAFF PHYSICIAN] - 1 Week Activity/Diet/Wound Care/Special Instructions: Activity: as tolerated Diet: cardiac Keep amor catheter and have patient follow up with urology Discharge Disposition: HOME WITH HOME HEALTH SERVICES
[2018-09-11] MEDS ORDERED: WARFARIN 10 MG TAB PO ONE (18:00)
== END 2018-09-11 14:39 | disposition home health service (06) | DRG 696 ==
LOC: EC 13:25 → 1SOBS 16:32 → OBSVTOIN 09-07 13:37 → 4SSUR 09-07 19:01
PROVIDERS: ADMIT Internal Medicine; ATTEND Internal Medicine
DX: R33.8 Other retention of urine (principal); E44.1 Mild protein-calorie malnutrition; I69.351 Hemiplegia and hemiparesis following cerebral infarction affecting right dominant side; N17.9 Acute kidney failure, unspecified; N39.0 Urinary tract infection, site not specified; Q21.1 Atrial septal defect; R07.89 Other chest pain; D69.6 Thrombocytopenia, unspecified; D72.819 Decreased white blood cell count, unspecified; E03.9 Hypothyroidism, unspecified; E78.5 Hyperlipidemia, unspecified; E86.0 Dehydration; F32.9 Major depressive disorder, single episode, unspecified; G35 Multiple sclerosis; G47.30 Sleep apnea, unspecified; G89.29 Other chronic pain; I69.320 Aphasia following cerebral infarction; K59.00 Constipation, unspecified; K76.0 Fatty (change of) liver, not elsewhere classified; M79.7 Fibromyalgia; Z79.01 Long term (current) use of anticoagulants; Z79.82 Long term (current) use of aspirin; Z79.890 Hormone replacement therapy; Z79.899 Other long term (current) drug therapy; Z82.49 Family history of ischemic heart disease and other diseases of the circulatory system; Z82.62 Family history of osteoporosis; Z86.711 Personal history of pulmonary embolism; Z86.718 Personal history of other venous thrombosis and embolism; Z90.49 Acquired absence of other specified parts of digestive tract; Z90.710 Acquired absence of both cervix and uterus; Z87.440 Personal history of urinary (tract) infections; M54.5 Low back pain; Z82.0 Family history of epilepsy and other diseases of the nervous system; T50.2X5A Adverse effect of carbonic-anhydrase inhibitors, benzothiadiazides and other diuretics, initial encounter; R00.1 Bradycardia, unspecified
CPT/HCPCS: 36415; 71046; 76700; 78452; 80053; 81001; 83690; 83735; 83880; 84439; 84443; 84484; 85025; 85610; 85730; 87086; 93005; 93017; 94760; 99285

== ENCOUNTER 2018-09-26 12:54 | Observation (INO) | payer MEDICARE, OTHER ==
[2018-09-26] MEDS ORDERED: NITROGLYCERIN SL TABS 0.4 MG TAB SUBLINGUAL STA ×3 (13:44)
[2018-09-26] MEDS ORDERED: ASPIRIN 81 MG PO STA (13:44)
--- NOTE | 2018-09-26 13:47 | ED ---
General Adult HPI - General Chief complaint: Chest Pain Stated complaint: Chest pain Time Seen by Provider: 09/26/18 13:06 Source: patient, RN notes reviewed Mode of arrival: wheelchair Limitations: no limitations - History of Present Illness Initial comments: Patient is a pleasant 63-year-old female presenting to the emergency Department with complaints of chest discomfort. Onset of symptoms was this morning. Patient is a poor historian and family is present to help provide history. Patient has a hard time describing the type of discomfort she is experiencing. No reported radiation. Discomfort was severe and is now moderate. Discomfort is left chest. Patient is unclear if she has associated dyspnea. No nausea or diaphoresis. Patient has had symptoms similar twice previously with a nondiagnostic evaluation. - Related Data Home Medications Medication Instructions Recorded Confirmed Aspirin 81 mg PO DAILY@0900 11/08/13 09/26/18 Baclofen [Lioresal] 10 mg PO DAILY@169911/08/13 09/26/18 Citalopram Hydrobromide [CeleXA] 40 mg PO HS@2100 11/08/13 09/26/18 Ferrous Sulfate [Feosol] 325 mg PO DAILY@169911/08/13 09/26/18 Fexofenadine HCl [Mimi Allergy] 180 mg PO DAILY@169911/08/13 09/26/18 Furosemide [Lasix] 40 mg PO BID@0900,169911/08/13 09/26/18 Montelukast [Singulair] 10 mg PO DAILY@169911/08/13 09/26/18 Nitroglycerin Sl Tabs [Nitrostat] 0.4 mg SUBLINGUAL Q5M PRN 11/08/13 09/26/18 Pantoprazole Sodium [Protonix] 40 mg PO DAILY@0911/08/13 09/26/18 Potassium Chloride 20 meq PO BID@0900,1700 11/08/13 09/26/18 Cholecalciferol [Vitamin D3] 2,000 unit PO DAILY@0911/18/15 09/26/18 Fluticasone Nasal [place] [Flonase 1 spray EA NOSTRIL BID 11/18/15 09/26/18 Nasal [place]] Methylphenidate HCl [Ritalin] 20 mg PO BID@0900,1200 11/18/15 09/26/18 Pravastatin Sodium [Pravachol] 20 mg PO HS@2100 11/18/15 09/26/18 fentaNYL [Fentanyl] 25 mcg TRANSDERM Q72H PRN 11/18/15 09/26/18 Pregabalin [Lyrica] 100 mg PO TID@0900,1700,2100 07/13/16 09/26/18 Folic Acid 0.4 mg PO DAILY@0900 08/18/16 09/26/18 Dimethyl Fumarate [Tecfidera] 240 mg PO BID@0900,2100 04/04/18 09/26/18 Albuterol Inhaler [Ventolin Hfa 1 - 2 puff INHALATION RT-Q6H PRN 09/26/18 09/26/18 Inhaler] Bisacodyl 10 mg PO BID 09/26/18 09/26/18 Cyanocobalamin/Folic AC/Vit B6 1 tab PO DAILY 09/26/18 09/26/18 [Fabb Tablet] Nystatin 100,000 Unit/gm Powd 1 applic TOPICAL BID 09/26/18 09/26/18 [Mycostatin Powder] Warfarin [Coumadin] 7.5 mg PO MOTUWETHFRSA 09/26/18 09/26/18 Warfarin [Coumadin] 10 mg PO BILLS 09/26/18 09/26/18 Previous Rx's Medication Instructions Recorded Docusate [Colace] 100 mg PO BID #30 cap 09/11/18 Levothyroxine Sodium [Levoxyl] 75 mcg PO DAILY #30 tab 09/11/18 Allergies Allergy/AdvReac Type Severity Reaction Status Date / Time adhesive Allergy SKIN Verified 09/26/18 15:22 PEELING Review of Systems ROS Statement: Those systems with pertinent positive or pertinent negative responses have been documented in the HPI. ROS Other: All systems not noted in ROS Statement are negative. Constitutional: Denies: fever Eyes: Denies: eye pain ENT: Denies: ear pain Respiratory: Reports: as per HPI Cardiovascular: Reports: chest pain Endocrine: Denies: fatigue Gastrointestinal: Denies: abdominal pain Genitourinary: Denies: dysuria Musculoskeletal: Denies: back pain Skin: Denies: rash Neurological: Denies: weakness Past Medical History Past Medical History: Chest Pain / Angina, CVA/TIA, Fibromyalgia, Musculoskeletal Disorder, Neurologic Disorder, Osteoarthritis (OA), Pulmonary Embolus (PE), Sleep Apnea/CPAP/BIPAP, Thyroid Disorder Additional Past Medical History / Comment(s): MULTIPLE SCLEROSIS, 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 PAINFUL FOR HER TO LIE FLAT. HX OF NOSEBLEED JUL 2014 AND RECEIVED PLASMA TRANSFUSION. takes pills with applesauce. UTI History of Any Multi-Drug Resistant Organisms: VRE Date of last positivie culture/infection: 10/24/09 confirmed with infectious disease nurse on 08/18/16. MDRO Source:: URINE Past Surgical History: Appendectomy, Cholecystectomy, Hysterectomy Additional Past Surgical History / Comment(s): Incisional hernia repair, laparoscopic lysis of adhesions in 1987, ganglion cyst removal of the left wrist, patent foramen ovale patch in 2006, RF ablation for back pain. Past Anesthesia/Blood Transfusion Reactions: No Reported Reaction Past Psychological History: Depression Smoking Status: Never smoker Past Alcohol Use History: None Reported Past Drug Use History: None Reported - Past Family History Mother Family Medical History: Hypertension Additional Family Medical History / Comment(s): osteoporosis Father Family Medical History: Dementia General Exam Limitations: no limitations General appearance: alert, in no apparent distress Head exam: Present: atraumatic Eye exam: Present: normal appearance Neck exam: Present: normal inspection Respiratory exam: Present: normal lung sounds bilaterally. Absent: chest wall tenderness Cardiovascular Exam: Present: regular rate, normal rhythm Expanded Peripheral pulses: 2+: Radial (R), Radial (L), Dorsalis Pedis (R), Dorsalis Pedis (L) GI/Abdominal exam: Present: soft. Absent: tenderness Extremities exam: Present: normal inspection. Absent: pedal edema, calf tenderness Neurological exam: Present: alert Psychiatric exam: Present: normal affect, normal mood Skin exam: Present: normal color Course Vital Signs 09/26/18 09/26/18 09/26/18 12:59 14:13 14:18 Temperature 97.8 F Pulse Rate 100 77 76 Respiratory 16 18 18 Rate Blood Pressure 99/68 123/68 102/73 O2 Sat by Pulse 96 93 L 93 L Oximetry EKG Findings - EKG Comments: EKG Findings:: Normal sinus rhythm 83. ID 154. QRS 68. QT 354. QTC 4:15. Normal axis. Normal QRS. No acute ST change. Medical Decision Making - Medical Decision Making Patient reevaluated and is improved following nitroglycerin. Patient and family updated on results and plan. Case discussed in detail with Dr. Paredes, who will admit his patient. Cardiology will be placed on consult. - Lab Data Result diagrams: 09/26/18 13:27 09/26/18 13:27 Lab Results 09/26/18 09/26/18 09/26/18 Range/Units 13:27 13:27 13:27 WBC 3.3 L (3.8-10.6) k/uL RBC 5.27 (3.80-5.40) m/uL Hgb 15.4 (11.4-16.0) gm/dL Hct 45.7 (34.0-46.0) % MCV 86.7 (80.0-100.0) fL MCH 29.3 (25.0-35.0) pg MCHC 33.8 (31.0-37.0) g/dL RDW 14.8 (11.5-15.5) % Plt Count 134 L (150-450) k/uL Neutrophils % 71 % Lymphocytes % 17 % Monocytes % 6 % Eosinophils % 4 % Basophils % 0 % Neutrophils # 2.3 (1.3-7.7) k/uL Lymphocytes # 0.6 L (1.0-4.8) k/uL Monocytes # 0.2 (0-1.0) k/uL Eosinophils # 0.1 (0-0.7) k/uL Basophils # 0.0 (0-0.2) k/uL PT 17.8 H (9.0-12.0) sec INR 1.8 H (<1.2) APTT 29.4 (22.0-30.0) sec D-Dimer <0.17 (<0.60) mg/L FEU Sodium 140 (137-145) mmol/L Potassium 4.4 (3.5-5.1) mmol/L Chloride 105 (98-107) mmol/L Carbon Dioxide 27 (22-30) mmol/L Anion Gap 8 mmol/L BUN 22 H (7-17) mg/dL Creatinine 1.03 (0.52-1.04) mg/dL Est GFR (CKD-EPI)AfAm 66 (>60 ml/min/1.73 sqM) Est GFR (CKD-EPI)NonAf 57 (>60 ml/min/1.73 sqM) Glucose 160 H (74-99) mg/dL Calcium 10.0 (8.4-10.2) mg/dL Magnesium 2.1 (1.6-2.3) mg/dL Total Bilirubin 0.8 (0.2-1.3) mg/dL AST 15 (14-36) U/L ALT 19 (9-52) U/L Alkaline Phosphatase 76 (38-126) U/L Troponin I (0.000-0.034) ng/mL Total Protein 6.6 (6.3-8.2) g/dL Albumin 4.4 (3.5-5.0) g/dL 09/26/18 Range/Units 13:27 WBC (3.8-10.6) k/uL RBC (3.80-5.40) m/uL Hgb (11.4-16.0) gm/dL Hct (34.0-46.0) % MCV (80.0-100.0) fL MCH (25.0-35.0) pg MCHC (31.0-37.0) g/dL RDW (11.5-15.5) % Plt Count (150-450) k/uL Neutrophils % % Lymphocytes % % Monocytes % % Eosinophils % % Basophils % % Neutrophils # (1.3-7.7) k/uL Lymphocytes # (1.0-4.8) k/uL Monocytes # (0-1.0) k/uL Eosinophils # (0-0.7) k/uL Basophils # (0-0.2) k/uL PT (9.0-12.0) sec INR (<1.2) APTT (22.0-30.0) sec D-Dimer (<0.60) mg/L FEU Sodium (137-145) mmol/L Potassium (3.5-5.1) mmol/L Chloride (98-107) mmol/L Carbon Dioxide (22-30) mmol/L Anion Gap mmol/L BUN (7-17) mg/dL Creatinine (0.52-1.04) mg/dL Est GFR (CKD-EPI)AfAm (>60 ml/min/1.73 sqM) Est GFR (CKD-EPI)NonAf (>60 ml/min/1.73 sqM) Glucose (74-99) mg/dL Calcium (8.4-10.2) mg/dL Magnesium (1.6-2.3) mg/dL Total Bilirubin (0.2-1.3) mg/dL AST (14-36) U/L ALT (9-52) U/L Alkaline Phosphatase (38-126) U/L Troponin I <0.012 (0.000-0.034) ng/mL Total Protein (6.3-8.2) g/dL Albumin (3.5-5.0) g/dL - Radiology Data Radiology results: image reviewed (Chest x-ray has nonspecific findings. Poor inspiratory effort.) Disposition Clinical Impression: Chest pain Disposition: ADMITTED IP TO THIS HOSP Is patient prescribed a controlled substance at d/c from ED?: No Referrals: Sarah Paredes MD [Primary Care Provider] - 1-2 days Decision Time: 15:37
[2018-09-26 14:15] LABS: Basophils % (A) 0 %; Eosinophils # (A) 0.1 k/uL (0-0.7); Eosinophils % (A) 4 %; HCT 45.7 % (34.0-46.0); HGB 15.4 gm/dL (11.4-16.0); Lymphocytes # (A) 0.6 k/uL (1.0-4.8); Lymphocytes % (A) 17 %; MCH 29.3 pg (25.0-35.0); MCHC 33.8 g/dL (31.0-37.0); MCV 86.7 fL (80.0-100.0); Mean Platelet Volume 10.3; Monocytes # (A) 0.2 k/uL (0-1.0); Monocytes % (A) 6 %; Neutrophils # (A) 2.3 k/uL (1.3-7.7); Neutrophils % (A) 71 %; Platelet Count 134 k/uL (150-450); RBC 5.27 m/uL (3.80-5.40); RDW 14.8 % (11.5-15.5); WBC 3.3 k/uL (3.8-10.6)
[2018-09-26 14:30] LABS: Albumin 4.4 g/dL (3.5-5.0); Magnesium 2.1 mg/dL (1.6-2.3); Potassium 4.4 mmol/L (3.5-5.1); Total Bilirubin 0.8 mg/dL (0.2-1.3); Total Protein 6.6 g/dL (6.3-8.2)
[2018-09-26 14:37] LABS: INR 1.8 (<1.2); Partial Thromboplastin Time 29.4 sec (22.0-30.0); Prothrombin Time 17.8 sec (9.0-12.0)
[2018-09-26 14:43] LABS: D-Dimer <0.17 mg/L FEU (<0.60)
--- NOTE | 2018-09-26 15:06 | XR ---
EXAMINATION TYPE: XR chest 2V DATE OF EXAM: 09/26/2018 COMPARISON: 09/05/2018 HISTORY: 63-year-old female with chest pain TECHNIQUE: AP and lateral views FINDINGS: Low lung volumes and crowded vascular markings. Heart borderline to mildly enlarged. Some hazy periph eral left basilar density could relate to overlying soft tissue. No pleural effusion. IMPRESSION: Limited portable exam with very low lung volumes. Some hazy peripheral left basilar density could rel ate to overlying soft tissue or atelectasis versus early infiltrate.
[2018-09-26] MEDS ORDERED: ALBUTEROL NEBULIZED 2.5 MG/3 ML INHALATION PRN (15:34)
[2018-09-26] MEDS ORDERED: NITROGLYCERIN SL TABS 0.4 MG TAB SUBLINGUAL PRN ×2 (15:34→15:38)
[2018-09-26] MEDS ORDERED: ONDANSETRON 4 MG/2 ML VIAL IVP PRN (16:01)
[2018-09-26] MEDS ORDERED: ACETAMINOPHEN TAB 325 MG TAB PO PRN (16:01)
--- NOTE | 2018-09-26 16:04 | P.HPIM ---
History of Present Illness H&P Date: 09/26/18 This is a 63-year-old female patient presented to the hospital with complaints of chest pain. Patient denies cough or recent illness. Patient denies nausea vomiting or diarrhea. Patient reports that the chest pain started this morning and radiated to her left-sided chest that radiated across body and down to left leg. Patient has a known past medical history of multiple sclerosis, CVA in 2006 with right-sided weakness and expressive aphasia, migraines, sleep apnea, pulmonary embolism, Sleep apnea, hypothyroidism, chronic pain, cholecystectomy and depression. Chest x-ray completed showing limited portable exam with very low volumes. Some hazy peripheral left basilar density could relate to overlying soft tissue or atelectasis versus early infiltrate. EKG completed showing normal sinus rhythm normal EKG. D-dimer less than 0.17. Troponin negative. Repeat chest x-ray ordered.. At this time patient complaining some generalized pain. Patient denies shortness of breath. Patient denies nausea vomiting or diarrhea. Patient denies any urinary burning or frequency. Review of Systems Please refer to HPI otherwise unremarkable Past Medical History Past Medical History: Chest Pain / Angina, CVA/TIA, Fibromyalgia, Musculoskeletal Disorder, Neurologic Disorder, Osteoarthritis (OA), Pulmonary Embolus (PE), Sleep Apnea/CPAP/BIPAP, Thyroid Disorder Additional Past Medical History / Comment(s): MULTIPLE SCLEROSIS, 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 PAINFUL FOR HER TO LIE FLAT. HX OF NOSEBLEED JUL 2014 AND RECEIVED PLASMA TRANSFUSION. takes pills with applesauce. UTI History of Any Multi-Drug Resistant Organisms: VRE Date of last positivie culture/infection: 10/24/09 confirmed with infectious disease nurse on 08/18/16. MDRO Source:: URINE Past Surgical History: Appendectomy, Cholecystectomy, Hysterectomy Additional Past Surgical History / Comment(s): Incisional hernia repair, laparoscopic lysis of adhesions in 1987, ganglion cyst removal of the left wrist, patent foramen ovale patch in 2006, RF ablation for back pain. Past Anesthesia/Blood Transfusion Reactions: No Reported Reaction Past Psychological History: Depression Smoking Status: Never smoker Past Alcohol Use History: None Reported Past Drug Use History: None Reported - Past Family History Mother Family Medical History: Hypertension Additional Family Medical History / Comment(s): osteoporosis Father Family Medical History: Dementia Medications and Allergies Home Medications Medication Instructions Recorded Confirmed Type Aspirin 81 mg PO DAILY@0900 11/08/13 09/26/18 History Baclofen [Lioresal] 10 mg PO DAILY@169911/08/13 09/26/18 History Citalopram Hydrobromide [CeleXA] 40 mg PO HS@209911/08/13 09/26/18 History Ferrous Sulfate [Feosol] 325 mg PO DAILY@169911/08/13 09/26/18 History Fexofenadine HCl [Mimi Allergy] 180 mg PO DAILY@169911/08/13 09/26/18 History Furosemide [Lasix] 40 mg PO BID@0900,169911/08/13 09/26/18 History Montelukast [Singulair] 10 mg PO DAILY@169911/08/13 09/26/18 History Nitroglycerin Sl Tabs [Nitrostat] 0.4 mg SUBLINGUAL Q5M PRN 11/08/13 09/26/18 History Pantoprazole Sodium [Protonix] 40 mg PO DAILY@0900 11/08/13 09/26/18 History Potassium Chloride 20 meq PO BID@0900,1700 11/08/13 09/26/18 History Cholecalciferol [Vitamin D3] 2,000 unit PO DAILY@0900 11/18/15 09/26/18 History Fluticasone Nasal [place] [Flonase 1 spray EA NOSTRIL BID 11/18/15 09/26/18 History Nasal [place]] Methylphenidate HCl [Ritalin] 20 mg PO BID@0900,1200 11/18/15 09/26/18 History Pravastatin Sodium [Pravachol] 20 mg PO HS@209911/18/15 09/26/18 History fentaNYL [Fentanyl] 25 mcg TRANSDERM Q72H PRN 11/18/15 09/26/18 History Pregabalin [Lyrica] 100 mg PO TID@0900,1700,2100 07/13/16 09/26/18 History Folic Acid 0.4 mg PO DAILY@0900 08/18/16 09/26/18 History Dimethyl Fumarate [Tecfidera] 240 mg PO BID@0900,2100 04/04/18 09/26/18 History Docusate [Colace] 100 mg PO BID #30 cap 09/11/18 09/26/18 Rx Levothyroxine Sodium [Levoxyl] 75 mcg PO DAILY #30 tab 09/11/18 09/26/18 Rx Albuterol Inhaler [Ventolin Hfa 1 - 2 puff INHALATION RT-Q6H PRN 09/26/18 09/26/18 History Inhaler] Bisacodyl 10 mg PO BID 09/26/18 09/26/18 History Cyanocobalamin/Folic AC/Vit B6 1 tab PO DAILY 09/26/18 09/26/18 History [Fabb Tablet] Nystatin 100,000 Unit/gm Powd 1 applic TOPICAL BID 09/26/18 09/26/18 History [Mycostatin Powder] Warfarin [Coumadin] 7.5 mg PO MOTUWETHFRSA 09/26/18 09/26/18 History Warfarin [Coumadin] 10 mg PO BILLS 09/26/18 09/26/18 History Allergies Allergy/AdvReac Type Severity Reaction Status Date / Time adhesive Allergy SKIN Verified 09/26/18 15:22 PEELING Physical Exam Vitals: Vital Signs Temp Pulse Resp BP Pulse Ox 09/26/18 14:18 76 18 102/73 93 L 09/26/18 14:13 77 18 123/68 93 L 09/26/18 12:59 97.8 F 100 16 99/68 96 Intake and Output 09/26/18 09/26/18 09/26/18 06:59 14:59 22:59 Other: Weight 99.79 kg Head normocephalic Neck supple Lungs clear to auscultation bilaterally no wheezing or crackles Heart regular rate and rhythm S1-S2, no rub or gallop Abdomen is soft nontender nondistended positive bowel sounds no hepatosplenomegaly Extremities no edema Neuro alert and orientated to 3 Results CBC & Chem 7: 09/26/18 13:27 09/26/18 13:27 Labs: Abnormal Lab Results - Last 24 Hours (Table) 09/26/18 09/26/18 09/26/18 Range/Units 13:27 13:27 13:27 WBC 3.3 L (3.8-10.6) k/uL Plt Count 134 L (150-450) k/uL Lymphocytes # 0.6 L (1.0-4.8) k/uL PT 17.8 H (9.0-12.0) sec INR 1.8 H (<1.2) BUN 22 H (7-17) mg/dL Glucose 160 H (74-99) mg/dL Assessment and Plan Assessment: 1. Chest pain. Initial troponin negative. Cardiology services have been consulted. D-dimer less than 0.17. Troponin 3 has been ordered. Repeat c hest x-ray ordered for a.m. 2. History of multiple sclerosis. 3. History of CVA with right-sided weakness and expressive aphasia 4. History of PE and DVT anticoagulated with Coumadin. Patient's admission INR 1.7. Home Coumadin was resumed will recheck PT/INR daily 5. Hyperlipidemia 6. History of fibromyalgia 7. History of depression. 8. History of hypothyroidism. Synthroid resumed 9. History of constipation 10. History of urinary retention DVT prophylaxis Coumadin. GI prophylaxis Protonix Time with Patient: Greater than 30 (Greater than 60% of the total time spent in counseling and coordination of care. I performed an examination of the patient and discussed their management with the Nurse Practitioner. I have reviewed the Nurse Practitioner's notes and agree with the documented findings and plan of care)
[2018-09-26] MEDS: MONTELUKAST 10 MG TAB PO SCH (17:53)
[2018-09-26] MEDS: POTASSIUM CHLORIDE ER 20 MEQ TAB.ER PO SCH (17:53)
[2018-09-26] MEDS: FUROSEMIDE 40 MG TAB PO SCH (17:53)
[2018-09-26] MEDS: BACLOFEN 10 MG TAB PO SCH (17:53)
[2018-09-26] MEDS: NITROGLYCERIN OINT 1 INCH/GM PACKET TOPICAL SCH ×2 (17:53→23:43)
[2018-09-26] MEDS: LORATADINE 10 MG TAB PO SCH (17:53)
[2018-09-26] MEDS: PREGABALIN 100 MG CAP PO SCH ×2 (17:53→21:27)
[2018-09-26] MEDS: FERROUS SULFATE 325 MG TAB PO SCH (17:53)
[2018-09-26] MEDS: WARFARIN 7.5 MG TAB PO SCH (17:53)
[2018-09-26] MEDS: DOCUSATE 100 MG CAP PO SCH (21:26)
[2018-09-26] MEDS: Dimethyl Fumarate [Tecfidera] 240 MG PO SCH (21:26)
[2018-09-26] MEDS: FLUTICASONE 50MCG/SPRAY NASAL 16GM EA NOSTRIL SCH (21:27)
[2018-09-26] MEDS: CITALOPRAM HYDROBROMIDE 20 MG TAB PO SCH (21:27)
[2018-09-26] MEDS: BISACODYL 5 MG TABLET.DR PO SCH (21:27)
[2018-09-26] MEDS: PRAVASTATIN SODIUM 20 MG TAB PO SCH (21:27)
[2018-09-26] MEDS: NYSTATIN 100,000 UNIT/GM POWD 15 GM TOPICAL SCH (21:28)
[2018-09-27] MEDS: NITROGLYCERIN OINT 1 INCH/GM PACKET TOPICAL SCH ×3 (05:48→17:29)
[2018-09-27] MEDS: LEVOTHYROXINE 75 MCG TAB PO SCH (05:52)
[2018-09-27 06:45] LABS: Basophils % (A) 1 %; Eosinophils # (A) 0.1 k/uL (0-0.7); Eosinophils % (A) 4 %; HCT 42.5 % (34.0-46.0); HGB 14.2 gm/dL (11.4-16.0); Lymphocytes # (A) 0.7 k/uL (1.0-4.8); Lymphocytes % (A) 23 %; MCH 29.7 pg (25.0-35.0); MCHC 33.4 g/dL (31.0-37.0); MCV 88.9 fL (80.0-100.0); Mean Platelet Volume 10.1; Monocytes # (A) 0.2 k/uL (0-1.0); Monocytes % (A) 7 %; Neutrophils # (A) 1.9 k/uL (1.3-7.7); Neutrophils % (A) 62 %; Platelet Count 117 k/uL (150-450); RBC 4.78 m/uL (3.80-5.40); RDW 14.2 % (11.5-15.5)
[2018-09-27 06:51] LABS: Prothrombin Time 19.4 sec (9.0-12.0)
[2018-09-27 07:17] LABS: Albumin 3.7 g/dL (3.5-5.0); Calcium 9.3 mg/dL (8.4-10.2); Potassium 3.7 mmol/L (3.5-5.1); Total Bilirubin 0.5 mg/dL (0.2-1.3); Total Protein 5.9 g/dL (6.3-8.2)
--- NOTE | 2018-09-27 08:10 | XR ---
EXAMINATION TYPE: XR chest 2V DATE OF EXAM: 09/27/2018 COMPARISON: 09/26/2018 HISTORY: Shortness of breath TECHNIQUE: Frontal and lateral views of the chest are obtained. FINDINGS: Scattered senescent parenchymal changes noted. Hyperinflation compatible with COPD. No evidence for infiltrate. No evidence for atelectasis. Mild chronic elevation right hemidiaphragm. Heart size is stable. Mediastinal structures are stable and grossly unremarkable. No evidence for hilar prominence. Degenerative changes dorsal spine. IMPRESSION: 1. No evidence for acute pulmonary disease.
[2018-09-27] MEDS ORDERED: VIT B6 PO SCH (09:00)
[2018-09-27] MEDS ORDERED: CYANOCOBALAMIN PO SCH (09:00)
[2018-09-27] MEDS ORDERED: ASPIRIN 325 MG TAB PO SCH (09:00)
[2018-09-27] MEDS ORDERED: FOLIC AC PO SCH (09:00)
[2018-09-27] MEDS: FLUTICASONE 50MCG/SPRAY NASAL 16GM EA NOSTRIL SCH ×2 (11:19→20:14)
[2018-09-27] MEDS: Dimethyl Fumarate [Tecfidera] 240 MG PO SCH ×2 (11:20→22:17)
[2018-09-27] MEDS: ASPIRIN 81 MG PO SCH (11:20)
[2018-09-27] MEDS: METHYLPHENIDATE HCL 10 MG TAB PO SCH ×2 (11:20→11:32)
[2018-09-27] MEDS: FUROSEMIDE 40 MG TAB PO SCH ×2 (11:20→17:28)
[2018-09-27] MEDS: PANTOPRAZOLE 40 MG TABLET PO SCH (11:21)
[2018-09-27] MEDS: FOLIC ACID 1 MG TAB PO SCH (11:21)
[2018-09-27] MEDS: DOCUSATE 100 MG CAP PO SCH ×2 (11:21→20:17)
[2018-09-27] MEDS: CHOLECALCIFEROL 1,000 UNIT TAB PO SCH (11:21)
[2018-09-27] MEDS: POTASSIUM CHLORIDE ER 20 MEQ TAB.ER PO SCH ×2 (11:21→17:29)
[2018-09-27] MEDS: BISACODYL 5 MG TABLET.DR PO SCH ×2 (11:21→20:15)
[2018-09-27] MEDS: PREGABALIN 100 MG CAP PO SCH ×3 (11:22→20:17)
[2018-09-27] MEDS: NYSTATIN 100,000 UNIT/GM POWD 15 GM TOPICAL SCH ×2 (11:23→20:14)
--- NOTE | 2018-09-27 11:42 | ECHOF ---
Referral Reason: MEASUREMENTS -------- HEIGHT: 165.1 cm WEIGHT: 99.8 kg BP: 97/58 RVIDd: 3.4 cm (< 3.3) IVSd: 0.8 cm (0.6 - 1.1) LVIDd: 5.4 cm (3.9 - 5.3) LVPWd: 0.9 cm (0.6 - 1.1) IVSs: 1.5 cm LVIDs: 3.0 cm LVPWs: 1.4 cm LAESV Index (A-L): 14.86 ml/m Ao Diam: 3.2 cm (2.0 - 3.7) AV Cusp: 1.5 cm (1.5 - 2.6) LA Diam: 2.8 cm (2.7 - 3.8) EPSS: 0.4 cm MV E Sander: 0.73 m/s MV DecT: 299 ms MV A Sander: 0.84 m/s MV E/A Ratio: 0.87 AV maxP.16 mmHg AV meanP.87 mmHg RAP: 10.00 mmHg RVSP: 28.29 mmHg MV EF SLOPE: 87.93 mm/s (70 - 150) MV EXCURSION: 1.56 cm (> 18.000) FINDINGS -------- Sinus rhythm. This was a technically adequate study. The left ventricular size is normal. Left ventricular wall thickness is normal. Overall left vent ricular systolic function is normal with, an EF between 55 - 60 %. The right ventricle is mildly enlarged. Normal LA size by volume 22+/-6 ml/m2. The right atrium is normal in size. Aortic valve is trileaflet and is mildly thickened. There is no evidence of aortic regurgitation. There is no evidence of aortic stenosis. The mitral valve leaflets are mildly thickened. There is trace to mild mitral regurgitation. Trace tricuspid regurgitation present. Right ventricular systolic pressure is normal at < 35 mmHg. There is no evidence of pulmonary hypertension. Trace/mild (physiologic) pulmonic regurgitation. The aortic root size is normal. Normal inferior vena cava with less than 50% inspiratory collapse consistent with estimated right atr ial pressure of 15 mmHg. There is a small pericardial effusion located near the left ventricle. CONCLUSIONS -------- 1. Sinus rhythm. 2. This was a technically adequate study. 3. The left ventricular size is normal. 4. Left ventricular wall thickness is normal. 5. Overall left ventricular systolic function is normal with, an EF between 55 - 60 %. 6. The right ventricle is mildly enlarged. 7. Normal LA size by volume 22+/-6 ml/m2. 8. Aortic valve is trileaflet and is mildly thickened. 9. The mitral valve leaflets are mildly thickened. 10. There is trace to mild mitral regurgitation. 11. Trace tricuspid regurgitation present. 12. Right ventricular systolic pressure is normal at < 35 mmHg. 13. There is no evidence of pulmonary hypertension. 14. Trace/mild (physiologic) pulmonic regurgitation. 15. The aortic root size is normal. 16. Normal inferior vena cava with less than 50% inspiratory collapse consistent with estimated right atrial pressure of 15 mmHg. 17. There is a small pericardial effusion located near the left ventricle. APPLICATIONS ENGINEERING MANAGER: Chandan Sylvester RDCS
--- NOTE | 2018-09-27 12:21 | P.CRDCN ---
History of Present Illness History of present illness: This is a pleasant 63-year-old female past medical history significant for CVA with right-sided residual, multiple sclerosis, obstructive sleep apnea, PE in the past on long-term anticoagulation and hypothyroidism. She follows in the office with Dr. Dowling. Previous consultation secondary chest pain. She is somewhat of a poor historian but states that she has been having pain essentially all over specifically on the right side of her torso from the axilla down to her hip, her left leg, her midsternal region, and her left lower back. She denies any precordial pain. She denies shortness of breath, dizziness, nausea, vomiting, palpitations or diaphoresis. She is tender to palpation all over especially in the epigastric region, the right shoulder and bilateral lower extremities. Earlier this month she was at the hospital for symptoms of chest discomfort and underwent a Lexiscan stress test which was negative for reversible ischemia. EKG reveals sinus mechanism with no acute ST or T wave abnormalities noted. Chest x-ray is negative for an acute cardiopulmonary process. Laboratory data reviewed, WBC 3.0, hemoglobin 14.2, platelets 117, INR 2.0, sodium 140, potassium 3.7, creatinine 1.22, GFR 47, magnesium 2.1, cardiac enzymes negative 3, LDL 61 and HDL 69. Current cardiac medications include aspirin 81 mg daily, Coumadin 7.5 mg every day except 10 mg on Sundays, Lasix 40 mg twice a day and pravastatin 20 mg daily. At the time of my exam: CONSTITUTIONAL: Denies fever. Denies chills. EYES: Denies blurred vision. Denies vision changes. Denies eye pain. EARS, NOSE, MOUTH & THROAT: Denies headache. Denies sore throat. Denies ear pain. CARDIOVASCULAR: Denies chest pain. Denies shortness of breath. Denies orthopnea. Denies PND. Denies palpitations. RESPIRATORY: Denies cough. GASTROINTESTINAL: Denies abdominal pain. Denies diarrhea. Denies constipation. Denies nausea. Denies vomiting. MUSCULOSKELETAL: Complains of generalized aches and pains and tenderness all over. INTEGUMENTARY: Denies pruitis. Denies rash. NEUROLOGIC: Denies numbness. Denies tingling. Denies weakness. PSYCHIATRIC: Denies anxiety. Denies depression. ENDOCRINE: Denies fatigue. Denies weight change. Denies polydipsia. Denies polyurina. GENITOURINARY: Denies burning, hematuria or urgency with micturation. HEMATOLOGIC: Denies history of anemia. Denies bleeding. ASSESSMENT Chest pain, atypical for angina with musculoskeletal reproducible features Leukopenia Multiple sclerosis History of CVA in the past with right-sided residual weakness Obstructive sleep apnea History of PE on long-term anticoagulation managed by primary care physician Fibromyalgia PLAN An acute coronary event has been ruled out. Obtain 2-D echocardiogram and Doppler study to assess cardiac structure and function. Her pain is very atypical for angina and is reproducible on palpation or with movement of her body. Recent normal stress test earlier this month. No further cardiac work-up. Follow up with Dr. Dowling upon discharge. Thank you kindly for this consultation. Nurse Practitioner note has been reviewed, I agree with a documented findings and plan of care. Patient was seen and examined. Past Medical History Past Medical History: Chest Pain / Angina, CVA/TIA, Fibromyalgia, Musculoskeletal Disorder, Neurologic Disorder, Osteoarthritis (OA), Pulmonary Embolus (PE), Sleep Apnea/CPAP/BIPAP, Thyroid Disorder Additional Past Medical History / Comment(s): MULTIPLE SCLEROSIS, 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 PAINFUL FOR HER TO LIE FLAT. HX OF NOSEBLEED JUL 2014 AND RECEIVED PLASMA TRANSFUSION. takes pills with applesauce. UTI History of Any Multi-Drug Resistant Organisms: VRE Date of last positivie culture/infection: 10/24/09 confirmed with infectious disease nurse on 08/18/16. MDRO Source:: URINE Past Surgical History: Appendectomy, Cholecystectomy, Hysterectomy Additional Past Surgical History / Comment(s): Incisional hernia repair, laparoscopic lysis of adhesions in 1987, ganglion cyst removal of the left wrist, patent foramen ovale patch in 2006, RF ablation for back pain. Past Anesthesia/Blood Transfusion Reactions: No Reported Reaction Past Psychological History: Depression Additional Psychological History / Comment(s): CELEXA. PT HAS DIFFICULTY W/SPEECH . HAS TO LOOK AT DIETARY MENU TO ORDER CAN'T DO IT BY PHONE. Pt resides with her spouse. She uses a cane to ambulate. She also has a walker.cpap machine Spouse drives her to appointments. Spouse assists her with some ADLs when needed. Smoking Status: Never smoker Past Alcohol Use History: None Reported Past Drug Use History: None Reported Additional Drug Use History / Comment(s): Lives at home with her requires some assistance with ADLs at times - Past Family History Mother Family Medical History: Hypertension Additional Family Medical History / Comment(s): osteoporosis Father Family Medical History: Dementia Medications and Allergies Home Medications Medication Instructions Recorded Confirmed Type Aspirin 81 mg PO DAILY@0911/08/13 09/26/18 History Baclofen [Lioresal] 10 mg PO DAILY@169911/08/13 09/26/18 History Citalopram Hydrobromide [CeleXA] 40 mg PO HS@209911/08/13 09/26/18 History Ferrous Sulfate [Feosol] 325 mg PO DAILY@169911/08/13 09/26/18 History Fexofenadine HCl [Mimi Allergy] 180 mg PO DAILY@169911/08/13 09/26/18 History Furosemide [Lasix] 40 mg PO BID@0900,169911/08/13 09/26/18 History Montelukast [Singulair] 10 mg PO DAILY@169911/08/13 09/26/18 History Nitroglycerin Sl Tabs [Nitrostat] 0.4 mg SUBLINGUAL Q5M PRN 11/08/13 09/26/18 History Pantoprazole Sodium [Protonix] 40 mg PO DAILY@0911/08/13 09/26/18 History Potassium Chloride 20 meq PO BID@0900,1700 11/08/13 09/26/18 History Cholecalciferol [Vitamin D3] 2,000 unit PO DAILY@0900 11/18/15 09/26/18 History Fluticasone Nasal [place] [Flonase 1 spray EA NOSTRIL BID 11/18/15 09/26/18 H istory Nasal [place]] Methylphenidate HCl [Ritalin] 20 mg PO BID@0900,1200 11/18/15 09/26/18 History Pravastatin Sodium [Pravachol] 20 mg PO HS@209911/18/15 09/26/18 History fentaNYL [Fentanyl] 25 mcg TRANSDERM Q72H PRN 11/18/15 09/26/18 History Pregabalin [Lyrica] 100 mg PO TID@0900,1700,2100 07/13/16 09/26/18 History Folic Acid 0.4 mg PO DAILY@0900 08/18/16 09/26/18 History Dimethyl Fumarate [Tecfidera] 240 mg PO BID@0900,2100 04/04/18 09/26/18 History Docusate [Colace] 100 mg PO BID #30 cap 09/11/18 09/26/18 Rx Levothyroxine Sodium [Levoxyl] 75 mcg PO DAILY #30 tab 09/11/18 09/26/18 Rx Albuterol Inhaler [Ventolin Hfa 1 - 2 puff INHALATION RT-Q6H PRN 09/26/18 09/26/18 History Inhaler] Bisacodyl 10 mg PO BID 09/26/18 09/26/18 History Cyanocobalamin/Folic AC/Vit B6 1 tab PO DAILY 09/26/18 09/26/18 History [Fabb Tablet] Nystatin 100,000 Unit/gm Powd 1 applic TOPICAL BID 09/26/18 09/26/18 History [Mycostatin Powder] Warfarin [Coumadin] 7.5 mg PO MOTUWETHFRSA 09/26/18 09/26/18 History Warfarin [Coumadin] 10 mg PO RAY 09/26/18 09/26/18 History Allergies Allergy/AdvReac Type Severity Reaction Status Date / Time adhesive Allergy SKIN Verified 09/26/18 15:22 PEELING Physical Exam Vitals: Vital Signs Temp Pulse Pulse Resp BP BP Pulse Ox 09/27/18 07:30 98.0 F 55 L 18 97/58 97 09/27/18 07:15 97 09/27/18 04:00 98.0 F 14 110/70 09/27/18 03:34 66 14 09/27/18 00:00 14 09/26/18 23:26 97.5 F L 66 14 112/65 97 09/26/18 20:00 61 14 09/26/18 19:03 98.4 F 61 14 104/66 98 09/26/18 17:31 59 L 18 09/26/18 16:50 97.7 F 59 L 18 109/70 100 09/26/18 16:00 97.9 F 63 18 101/53 95 09/26/18 14:18 76 18 102/73 93 L 09/26/18 14:13 77 18 123/68 93 L 09/26/18 12:59 97.8 F 100 16 99/68 96 Intake and Output 09/26/18 09/27/18 09/27/18 22:59 06:59 14:59 Intake Total 240 Balance 240 Intake: Oral 240 Other: Voiding Method Toilet Toilet # Voids 1 Results 09/27/18 06:32 09/27/18 06:32 Cardiac Enzymes 09/26/18 09/26/18 09/26/18 Range/Units 13:27 13:27 19:31 AST 15 (14-36) U/L Troponin I <0.012 <0.012 (0.000-0.034) ng/mL 09/27/18 09/27/18 Range/Units 02:23 06:32 AST 14 (14-36) U/L Troponin I <0.012 (0.000-0.034) ng/mL Coagulation 09/26/18 09/27/18 Range/Units 13:27 06:32 PT 17.8 H 19.4 H (9.0-12.0) sec APTT 29.4 (22.0-30.0) sec Lipids 09/27/18 Range/Units 06:32 Triglycerides 128 (<150) mg/dL Cholesterol 156 (<200) mg/dL HDL Cholesterol 69 H (40-60) mg/dL CBC 09/26/18 09/27/18 Range/Units 13:27 06:32 WBC 3.3 L 3.0 L (3.8-10.6) k/uL RBC 5.27 4.78 (3.80-5.40) m/uL Hgb 15.4 14.2 (11.4-16.0) gm/dL Hct 45.7 42.5 (34.0-46.0) % Plt Count 134 L 117 L (150-450) k/uL Comprehensive Metabolic Panel 09/26/18 09/27/18 Range/Units 13:27 06:32 Sodium 140 140 (137-145) mmol/L Potassium 4.4 3.7 (3.5-5.1) mmol/L Chloride 105 104 (98-107) mmol/L Carbon Dioxide 27 30 (22-30) mmol/L BUN 22 H 21 H (7-17) mg/dL Creatinine 1.03 1.22 H (0.52-1.04) mg/dL Glucose 160 H 119 H (74-99) mg/dL Calcium 10.0 9.3 (8.4-10.2) mg/dL AST 15 14 (14-36) U/L ALT 19 19 (9-52) U/L Alkaline Phosphatase 76 85 (38-126) U/L Total Protein 6.6 5.9 L (6.3-8.2) g/dL Albumin 4.4 3.7 (3.5-5.0) g/dL Current Medications Generic Name Dose Route Start Last Admin Trade Name Freq PRN Reason Stop Dose Admin Acetaminophen 650 mg 09/26/18 16:01 09/26/18 22:34 Tylenol Tab PO 650 mg Q6HR PRN Administration Fever and/ or Pain Albuterol Sulfate 2.5 mg 09/26/18 15:34 Ventolin Nebulized INHALATION RT-Q6H PRN Shortness Of Breath Aspirin 81 mg 09/27/18 09:00 Aspirin PO DAILY@0900 [facility] Baclofen 10 mg 09/26/18 17:00 09/26/18 17:53 Lioresal PO 10 mg DAILY@1700 [facility] Administration Bisacodyl 10 mg 09/26/18 21:00 09/26/18 21:27 Dulcolax PO 10 mg BID [facility] Administration Cholecalciferol 2,000 unit 09/27/18 09:00 Vitamin D3 PO DAILY@0900 [facility] Citalopram Hydrobromide 40 mg 09/26/18 21:00 09/26/18 21:27 Celexa PO 40 mg HS@2100 [facility] Administration Docusate Sodium 100 mg 09/26/18 21:00 09/26/18 21:26 Colace PO 100 mg BID [facility] Administration Fentanyl 1 patch 09/26/18 15:34 Duragesic 25mcg/Hr Patch TRANSDERM Q72H PRN Pain Ferrous Sulfate 325 mg 09/26/18 17:00 09/26/18 17:53 Feosol PO 325 mg DAILY@1700 [facility] Administration Fluticasone Propionate 1 spray 09/26/18 21:00 09/26/18 21:27 Flonase Nasal [place] EA NOSTRIL 1 spray BID [facility] Administration Folic Acid 1 mg 09/27/18 09:00 Folic Acid PO DAILY@0900 [facility] Furosemide 40 mg 09/26/18 17:00 09/26/18 17:53 Lasix PO 40 mg BID@0900,1700 [facility] Administration Levothyroxine Sodium 75 mcg 09/27/18 06:30 09/27/18 05:52 Synthroid PO 75 mcg DAILY@0630 [facility] Administration Loratadine 10 mg 09/26/18 17:00 09/26/18 17:53 Claritin PO 10 mg DAILY@1700 [facility] Administration Methylphenidate HCl 20 mg 09/27/18 09:00 Ritalin PO BID@0900,1200 [facility] Montelukast Sodium 10 mg 09/26/18 17:00 09/26/18 17:53 Singulair PO 10 mg DAILY@1700 [facility] Administration Nitroglycerin 1 inch 09/26/18 18:00 09/27/18 05:48 Nitro-Bid Oint TOPICAL Not Given Q6HR [facility] Nitroglycerin 0.4 mg 09/26/18 15:38 Nitrostat SUBLINGUAL Q5M PRN Chest Pain Dimethyl Fumarate [ 240 mg 09/26/18 21:00 09/26/18 21:26 Tecfidera] 240 Mg PO Not Given BID@0900,2100 [facility] Nystatin 1 applic 09/26/18 21:00 09/26/18 21:28 Mycostatin Powder TOPICAL 1 applic BID [facility] Administration Ondansetron HCl 4 mg 09/26/18 16:01 Zofran IVP Q6HR PRN Vomiting Pantoprazole Sodium 40 mg 09/27/18 07:30 Protonix PO AC-BRKFST [facility] Potassium Chloride 20 meq 09/26/18 17:00 09/26/18 17:53 K-Dur 20 PO 20 meq BID@0900,1700 [facility] Administration Pravastatin Sodium 20 mg 09/26/18 21:00 09/26/18 21:27 Pravachol PO 20 mg HS@2100 [facility] Administration Pregabalin 100 mg 09/26/18 17:00 09/26/18 21:27 Lyrica PO 100 mg TID@0900,1700,2100 [facility] Administration Sodium Chloride 10 ml 09/26/18 21:00 09/26/18 22:14 Saline Flush IV 10 ml BID [facility] Administration Warfarin Sodium 10 mg 09/30/18 18:00 Coumadin PO Ray@1800 [facility] Warfarin Sodium 7.5 mg 09/26/18 18:00 09/26/18 17:53 Coumadin PO 7.5 mg MoTuWeThFrSa@1800 [facility] Administration Intake and Output 09/26/18 09/27/18 09/27/18 22:59 06:59 14:59 Intake Total 240 Balance 240 Intake: Oral 240 Other: Voiding Method Toilet Toilet # Voids 1 09/27/18 06:32 09/27/18 06:32
--- NOTE | 2018-09-27 14:25 | P.PN ---
Subjective Progress Note Date: 09/27/18 This is a 63-year-old female patient presented to the hospital with complaints of chest pain. Patient denies cough or recent illness. Patient denies nausea vomiting or diarrhea. Patient reports that the chest pain started this morning and radiated to her left-sided chest that radiated across body and down to left leg. Patient has a known past medical history of multiple sclerosis, CVA in 2007 with right-sided weakness and expressive aphasia, migraines, sleep apnea, pulmonary embolism, Sleep apnea, hypothyroidism, chronic pain, cholecystectomy and depression. Chest x-ray completed showing limited portable exam with very low volumes. Some hazy peripheral left basilar density could relate to ove rlying soft tissue or atelectasis versus early infiltrate. EKG completed showing normal sinus rhythm normal EKG. D-dimer less than 0.17. Troponin negative. Repeat chest x-ray ordered.. At this time patient complaining some generalized pain. Patient denies shortness of breath. Patient denies nausea vomiting or diarrhea. Patient denies any urinary burning or frequency. On 09/27/2018 patient is alert and oriented 3. Patient is still complaining of some overall generalized discomfort. Patient was evaluated cardiology services. 2-D echo has been completed showing an EF of 55-60%. No further cardiac workup at this time. Creatinine slightly elevated at 1.22 this AM we'll continue to m onitor closely. INR 2.0 continue home dose of Coumadin. Objective - Vital Signs Vital signs: Vital Signs Temp 97.5 F L 09/27/18 11:35 Pulse 60 09/27/18 11:35 Resp 18 09/27/18 11:35 BP 122/71 09/27/18 11:35 Pulse Ox 95 09/27/18 11:35 Intake & Output 09/26/18 09/27/18 09/27/18 18:59 06:59 18:59 Intake Total 240 100 Balance 240 100 Weight 99.79 kg Intake: Oral 240 100 Other: Voiding Method Toilet Toilet Toilet # Voids 1 - Exam Head normocephalic Neck supple Lungs clear to auscultation bilaterally no wheezing or crackles Heart regular rate and rhythm S1-S2, no rub or gallop Abdomen is soft nontender nondistended positive bowel sounds no hepatosplenomegaly Extremities no edema Neuro alert and orientated to 3 - Labs CBC & Chem 7: 09/27/18 06:32 09/27/18 06:32 Labs: Abnormal Lab Results - Last 24 Hours (Table) 09/26/18 09/26/18 09/27/18 Range/Units 13:27 13:27 06:32 WBC (3.8-10.6) k/uL Plt Count (150-450) k/uL Lymphocytes # (1.0-4.8) k/uL PT 17.8 H (9.0-12.0) sec INR 1.8 H (<1.2) BUN 22 H 21 H (7-17) mg/dL Creatinine 1.22 H (0.52-1.04) mg/dL Glucose 160 H 119 H (74-99) mg/dL Total Protein 5.9 L (6.3-8.2) g/dL HDL Cholesterol 69 H (40-60) mg/dL 09/27/18 09/27/18 Range/Units 06:32 06:32 WBC 3.0 L (3.8-10.6) k/uL Plt Count 117 L (150-450) k/uL Lymphocytes # 0.7 L (1.0-4.8) k/uL PT 19.4 H (9.0-12.0) sec INR 2.0 H (<1.2) BUN (7-17) mg/dL Creatinine (0.52-1.04) mg/dL Glucose (74-99) mg/dL Total Protein (6.3-8.2) g/dL HDL Cholesterol (40-60) mg/dL Assessment and Plan Assessment: 1. Chest pain. Initial troponin negative. Cardiology services have been consulted. D-dimer less than 0.17. Troponins negative 3. Chest x-ray completed of the same showing no evidence for acute pulmonary disease. 2-D echo completed showing an EF of 55-60%. Per cardiology to acute coronary event has been ruled out. Pain is very atypical for angina and is reproducible on palpation. Patient has had recent normal stress test earlier this month no further cardiac workup per cardiology 2. History of multiple sclerosis. 3. History of CVA with right-sided weakness and expressive aphasia 4. History of PE and DVT anticoagulated with Coumadin. Patient's admission INR 1.7. Home Coumadin was resumed will recheck PT/INR daily. INR today 2.2 5. Hyperlipidemia 6. History of fibromyalgia 7. History of depression. 8. History of hypothyroidism. Synthroid resumed 9. History of constipation 10. History of urinary retention 11. Acute kidney injury. Creatinine elevated at 1.2 this AM we'll continue to monitor DVT prophylaxis Coumadin. GI prophylaxis Protonix I performed an examination of the patient and discussed their management with the Nurse Practitioner. I have reviewed the Nurse Practitioner's notes and agree with the documented findings and plan of care
[2018-09-27] MEDS: BACLOFEN 10 MG TAB PO SCH (17:28)
[2018-09-27] MEDS: LORATADINE 10 MG TAB PO SCH (17:28)
[2018-09-27] MEDS: WARFARIN 7.5 MG TAB PO SCH (17:29)
[2018-09-27] MEDS: FERROUS SULFATE 325 MG TAB PO SCH (17:29)
[2018-09-27] MEDS: MONTELUKAST 10 MG TAB PO SCH (17:29)
[2018-09-27] MEDS: CITALOPRAM HYDROBROMIDE 20 MG TAB PO SCH (20:15)
[2018-09-27] MEDS: PRAVASTATIN SODIUM 20 MG TAB PO SCH (20:17)
[2018-09-28] MEDS: NITROGLYCERIN OINT 1 INCH/GM PACKET TOPICAL SCH ×2 (01:13→13:40)
[2018-09-28 03:45] VITALS: RESP 18
[2018-09-28] MEDS: LEVOTHYROXINE 75 MCG TAB PO SCH (05:23)
[2018-09-28 05:59] LABS: Basophils % (A) 1 %; Eosinophils # (A) 0.1 k/uL (0-0.7); Eosinophils % (A) 4 %; HCT 42.9 % (34.0-46.0); HGB 14.1 gm/dL (11.4-16.0); Lymphocytes # (A) 0.7 k/uL (1.0-4.8); Lymphocytes % (A) 17 %; MCH 28.3 pg (25.0-35.0); MCHC 32.9 g/dL (31.0-37.0); MCV 86.1 fL (80.0-100.0); Mean Platelet Volume 9.9; Monocytes # (A) 0.3 k/uL (0-1.0); Monocytes % (A) 8 %; Neutrophils # (A) 2.5 k/uL (1.3-7.7); Neutrophils % (A) 67 %; Platelet Count 113 k/uL (150-450); RBC 4.99 m/uL (3.80-5.40); WBC 3.8 k/uL (3.8-10.6)
[2018-09-28 06:08] LABS: Albumin 3.7 g/dL (3.5-5.0); Calcium 9.3 mg/dL (8.4-10.2); Potassium 4.1 mmol/L (3.5-5.1); Total Bilirubin 0.8 mg/dL (0.2-1.3); Total Protein 5.8 g/dL (6.3-8.2)
[2018-09-28 06:22] LABS: Prothrombin Time 19.2 sec (9.0-12.0)
[2018-09-28] MEDS: METHYLPHENIDATE HCL 10 MG TAB PO SCH ×2 (09:43→13:45)
[2018-09-28] MEDS: FOLIC ACID 1 MG TAB PO SCH (09:43)
[2018-09-28] MEDS: CHOLECALCIFEROL 1,000 UNIT TAB PO SCH (09:43)
[2018-09-28] MEDS: PREGABALIN 100 MG CAP PO SCH (09:43)
[2018-09-28] MEDS: ASPIRIN 81 MG PO SCH (09:43)
[2018-09-28] MEDS: PANTOPRAZOLE 40 MG TABLET PO SCH (09:44)
[2018-09-28] MEDS: DOCUSATE 100 MG CAP PO SCH (09:44)
[2018-09-28] MEDS: FUROSEMIDE 40 MG TAB PO SCH (09:44)
[2018-09-28] MEDS: POTASSIUM CHLORIDE ER 20 MEQ TAB.ER PO SCH (09:44)
[2018-09-28] MEDS: NYSTATIN 100,000 UNIT/GM POWD 15 GM TOPICAL SCH (09:45)
[2018-09-28] MEDS: Dimethyl Fumarate [Tecfidera] 240 MG PO SCH (09:45)
[2018-09-28] MEDS: BISACODYL 5 MG TABLET.DR PO SCH (09:46)
[2018-09-28] MEDS: FLUTICASONE 50MCG/SPRAY NASAL 16GM EA NOSTRIL SCH (09:46)
[2018-09-28 11:27] VITALS: BP 122/70; PULSE 83; TEMP 98.4
--- NOTE | 2018-09-28 14:49 | P.DS ---
Providers Date of admission: 09/26/18 15:38 Expected date of discharge: 09/28/18 Attending physician: Sarah Paredes Consults: 09/26/18 15:38 Consult Physician Urgent Consulting Provider: Faina Parson Consult Reason/Comments: cp Do you want consulting provider notified?: Yes Primary care physician: Sarah Lena [facility] Hospital Course: discharge diagnosis 1. Chest pain. Initial troponin negative. Cardiology services have been consulted. D-dimer less than 0.17. Troponins negative 3. Chest x-ray completed of the same showing no evidence for acute pulmonary disease. 2-D echo completed showing an EF of 55-60%. Per cardiology to acute coronary event has been ruled out. Pain is very atypical for angina and is reproducible on palpation. Patient has had recent normal stress test earlier this month no further cardiac workup per cardiology 2. History of multiple sclerosis. 3. History of CVA with right-sided weakness and expressive aphasia 4. History of PE and DVT anticoagulated with Coumadin. Patient's admission INR 1.7. Home Coumadin was resumed will recheck PT/INR daily. INR today 2.0 5. Hyperlipidemia 6. History of fibromyalgia 7. History of depression. 8. History of hypothyroidism. Synthroid resumed 9. History of constipation 10. History of urinary retention 11. Acute kidney injury. Creatinine elevated at 1.2 this AM we'll continue to monitor. Patient to follow-up with her PCP for further management Hospital course This is a 63-year-old female patient presented to the hospital with complaints of chest pain. Patient denies cough or recent illness. Patient denies nausea vomiting or diarrhea. Patient reports that the chest pain started this morning and radiated to her left-sided chest that radiated across body and down to left leg. Patient has a known past medical history of multiple sclerosis, CVA in 2006 with right-sided weakness and expressive aphasia, migraines, sleep apnea, pulmonary embolism, Sleep apnea, hypothyroidism, chronic pain, cholecystectomy and depression. Chest x-ray completed showing limited portable exam with very low volumes. Some hazy peripheral left basilar density could relate to overlying soft tissue or atelectasis versus early infiltrate. EKG completed showing normal sinus rhythm normal EKG. D-dimer less than 0.17. Troponin nega tive. Repeat chest x-ray ordered.. At this time patient complaining some generalized pain. Patient denies shortness of breath. Patient denies nausea vomiting or diarrhea. Patient denies any urinary burning or frequency. On 09/27/2018 patient is alert and oriented 3. Patient is still complaining of some overall generalized discomfort. Patient was evaluated cardiology services. 2-D echo has been completed showing an EF of 55-60%. No further cardiac workup at this time. Creatinine slightly elevated at 1.22 this AM we'll continue to monitor closely. INR 2.0 continue home dose of Coumadin. On 09/28/2018 patient is alert and oriented 3. Patient's chest discomfort has subsided. Patient has been cleared for discharge from cardiology standpoint. Patient will go home and follow-up closely with her PCP for further management. At this time patient denies chest pain or shortness breath. Patient denies nausea vomiting or diarrhea. Patient denies any urinary burning or frequency I performed an examination of the patient and discussed their management with the Nurse Practitioner. I have reviewed the Nurse Practitioner's notes and agree with the documented findings and plan of care Patient Condition at Discharge: Stable Plan - Discharge Summary Discharge Rx Participant: No New Discharge Prescriptions: Continue Baclofen [Lioresal] 10 mg PO DAILY@1700 Aspirin 81 mg PO DAILY@0900 Montelukast [Singulair] 10 mg PO DAILY@1700 Furosemide [Lasix] 40 mg PO BID@0900,1700 Potassium Chloride 20 meq PO BID@0900,1700 Citalopram Hydrobromide [CeleXA] 40 mg PO HS@2100 Nitroglycerin Sl Tabs [Nitrostat] 0.4 mg SUBLINGUAL Q5M PRN PRN Reason: Chest Pain Pantoprazole Sodium [Protonix] 40 mg PO DAILY@0900 Ferrous Sulfate [Feosol] 325 mg PO DAILY@1700 Fexofenadine HCl [Mimi Allergy] 180 mg PO DAILY@1700 Cholecalciferol [Vitamin D3] 2,000 unit PO DAILY@0900 Pravastatin Sodium [Pravachol] 20 mg PO HS@2100 Methylphenidate HCl [Ritalin] 20 mg PO BID@0900,1200 Fluticasone Nasal [place] [Flonase Nasal [place]] 1 spray EA NOSTRIL BID fentaNYL [Fentanyl] 25 mcg TRANSDERM Q72H PRN PRN Reason: Pain Pregabalin [Lyrica] 100 mg PO TID@0900,1700,2099 Folic Acid 0.4 mg PO DAILY@0900 Dimethyl Fumarate [Tecfidera] 240 mg PO BID@899,2099 Docusate [Colace] 100 mg PO BID #30 cap Levothyroxine Sodium [Levoxyl] 75 mcg PO DAILY #30 tab Albuterol Inhaler [Ventolin Hfa Inhaler] 1 - 2 puff INHALATION RT-Q6H PRN PRN Reason: Shortness Of Breath Nystatin 100,000 Unit/gm Powd [Mycostatin Powder] 1 applic TOPICAL BID Cyanocobalamin/Folic AC/Vit B6 [Fabb Tablet] 1 tab PO DAILY Bisacodyl 10 mg PO BID Warfarin [Coumadin] 7.5 mg PO MOTUWETHFRSA Warfarin [Coumadin] 10 mg PO BILLS Discharge Medication List Aspirin 81 mg PO DAILY@89911/08/13 [History] Baclofen [Lioresal] 10 mg PO DAILY@169911/08/13 [History] Citalopram Hydrobromide [CeleXA] 40 mg PO HS@209911/08/13 [History] Ferrous Sulfate [Feosol] 325 mg PO DAILY@169911/08/13 [History] Fexofenadine HCl [Mimi Allergy] 180 mg PO DAILY@169911/08/13 [History] Furosemide [Lasix] 40 mg PO BID@0900,169911/08/13 [History] Montelukast [Singulair] 10 mg PO DAILY@169911/08/13 [History] Nitroglycerin Sl Tabs [Nitrostat] 0.4 mg SUBLINGUAL Q5M PRN 11/08/13 [History] Pantoprazole Sodium [Protonix] 40 mg PO DAILY@89911/08/13 [History] Potassium Chloride 20 meq PO BID@0900,169911/08/13 [History] Cholecalciferol [Vitamin D3] 2,000 unit PO DAILY@89911/18/15 [History] Fluticasone Nasal [place] [Flonase Nasal [place]] 1 spray EA NOSTRIL BID 11/18/15 [History] Methylphenidate HCl [Ritalin] 20 mg PO BID@0900,1200 11/18/15 [History] Pravastatin Sodium [Pravachol] 20 mg PO HS@209911/18/15 [History] fentaNYL [Fentanyl] 25 mcg TRANSDERM Q72H PRN 11/18/15 [History] Pregabalin [Lyrica] 100 mg PO TID@0900,1700,2100 07/13/16 [History] Folic Acid 0.4 mg PO DAILY@0900 08/18/16 [History] Dimethyl Fumarate [Tecfidera] 240 mg PO BID@0900,2100 04/04/18 [History] Docusate [Colace] 100 mg PO BID #30 cap 09/11/18 [Rx] Levothyroxine Sodium [Levoxyl] 75 mcg PO DAILY #30 tab 09/11/18 [Rx] Albuterol Inhaler [Ventolin Hfa Inhaler] 1 - 2 puff INHALATION RT-Q6H PRN 09/26/18 [History] Bisacodyl 10 mg PO BID 09/26/18 [History] Cyanocobalamin/Folic AC/Vit B6 [Fabb Tablet] 1 tab PO DAILY 09/26/18 [History] Nystatin 100,000 Unit/gm Powd [Mycostatin Powder] 1 applic TOPICAL BID 09/26/18 [History] Warfarin [Coumadin] 7.5 mg PO MOTUWETHFRSA 09/26/18 [History] Warfarin [Coumadin] 10 mg PO BILLS 09/26/18 [History] Follow up Appointment(s)/Referral(s): Sarah Paredes MD [Primary Care Provider] - 1-2 days Activity/Diet/Wound Care/Special Instructions: Activity as tolerated Diet heart healthy Discharge Disposition: HOME SELF-CARE
[2018-09-30] MEDS ORDERED: WARFARIN 10 MG TAB PO SCH (18:00)
== END 2018-09-28 16:05 | disposition home or self-care (01) ==
LOC: EC 12:54 → 1SOBS 15:38
PROVIDERS: ADMIT Internal Medicine; ATTEND Internal Medicine
DX: R07.89 Other chest pain (principal); G35 Multiple sclerosis; E03.9 Hypothyroidism, unspecified; E78.5 Hyperlipidemia, unspecified; M79.7 Fibromyalgia; G47.33 Obstructive sleep apnea (adult) (pediatric); F32.9 Major depressive disorder, single episode, unspecified; G43.909 Migraine, unspecified, not intractable, without status migrainosus; G89.29 Other chronic pain; N17.9 Acute kidney failure, unspecified; I69.320 Aphasia following cerebral infarction; I69.351 Hemiplegia and hemiparesis following cerebral infarction affecting right dominant side; Z86.711 Personal history of pulmonary embolism; Z79.01 Long term (current) use of anticoagulants; Z79.890 Hormone replacement therapy; Z86.718 Personal history of other venous thrombosis and embolism; Z79.82 Long term (current) use of aspirin; Z79.899 Other long term (current) drug therapy; Z90.710 Acquired absence of both cervix and uterus; Z90.49 Acquired absence of other specified parts of digestive tract; Z91.048 Other nonmedicinal substance allergy status; Z82.49 Family history of ischemic heart disease and other diseases of the circulatory system; Z82.62 Family history of osteoporosis
CPT/HCPCS: 99285; 36415; 94760; 94762; 93005; 93306; 85379; 80061; 80053 ×3; 83735; 84484 ×2; 85025 ×3; 85610 ×3; 85730; 71046 ×2; G0378 ×3

== ENCOUNTER 2018-11-20 08:10 | Day surgery (SDC) | payer MEDICARE, OTHER ==
[2018-11-15 11:45] VITALS: BMI 36.6
[~2018-11-20 08:10] MED LIST changes: +BUPIVACAINE (PF) 0.75% 5 ML, HYALURONIDASE, HUMAN RECOMB 150 UNIT, LIDOCAINE 2% (PF) 10... MISCELLANE ONE; +LACTATED RINGERS 1,000 ML IV SCH; +LIDOCAINE 1% 20 ML VIAL (10MG/ML) FOR IV START INTRADERMA PRN; -SODIUM CHLORIDE 0.9% 500 ML in EMPTY BAG 1 BAG IV PRN; +TOBRA-DEXAMET 0.3-0.1% OPHTH OINT 3.5 GM TUBE OPHTHALMIC ONE; -methylPREDNISolone SOD SUCCI 125 MG/2 ML VIAL IVP NR
[2018-11-20] MEDS: PHENYLEPHRINE 10% OPHTH DROPS 5 ML BTL OP ONE ×3 (08:40→09:01)
[2018-11-20 08:43] VITALS: RESP 16; TEMP 97.8
[2018-11-20] MEDS: CYCLOPENTOLATE 1% OPHTH SOLN 2 ML BTL OP ONE ×3 (08:43→09:04)
[2018-11-20] MEDS: KETOROLAC 0.5% OPHTH DROPS 5 ML BTL OP ONE ×3 (08:46→09:07)
[2018-11-20] MEDS ORDERED: PROPOFOL 10 MG/ML 20 ML VIAL IV ONE (09:21)
[2018-11-20] MEDS ORDERED: BALANCED SALT IRRIG SOLN COMB2 15 ML IRRIG.SOLN IRRIGATION ONE (09:36)
[2018-11-20] MEDS ORDERED: HYALURONATE SODIUM INTRAOCULAR 1 EACH SYRINGE (10MG/ML) INTRAOCULA ONE (09:36)
[2018-11-20] MEDS ORDERED: EPINEPHrine (PF) 0.5 ML in BALANCED SALT IRRIG SOLN COMB2 500 ML IRRIGATION ONE (09:38)
--- NOTE | 2018-11-20 09:51 | P.OP ---
Date of Procedure: 11/20/18 Procedure(s) Performed: PREOPERATIVE DIAGNOSIS: Cataract, right eye. POSTOPERATIVE DIAGNOSIS: Cataract, right eye. OPERATION: Phacoemulsification of cataract, intraocular lens placement, right eye. DESCRIPTION OF PROCEDURE: The patient was taken to the operating room. Intravenous Propofol was given so as to bring about sedation. The following mixture was given for local anesthesia: 5 mL of 2% lidocaine, 5 mL of 0.75% Marcaine, and 1 mL of Wydase. Approximately 4 mL was injected in the retrobu lbar space of the surgical eye. Additional 1 mL was then directed to the temporal area of the surgical eye. This was performed to allow adequate neurological block of the facial muscles. The patient was revived. The patient was prepped and draped in the usual sterile manner for the operative eye. A lid speculum was put into position. The conjunctiva was resected back from the limbus in the 12 o'clock position. Bleeding was controlled with electrocautery. A #69 blade was then used and a half-thickness scleral incision approximately 1-mm posterior to the limbus was made on bare sclera. This was shelved in the clear cornea using a crescent knife. Next a 15-degree blade was used to make a stab incision at the 3 o'clock position at the corneolimbal interface. A keratome blade was then used and the superior wound was extended into the anterior chamber. Viscoelastic was injected into the anterior chamber to maintain its form. A cystotome was used and a continuous anterior capsu lotomy was made. Hydrodissection of the lens cortex using a blunt cannula and BSS was performed. A phaco probe was then introduced and a groove extending from 12 to 6 o'clock in the lens was created. A Frederic wand was used through the stab incision and used to perform a divide and conquer dismantling of the cataract. An irrigation aspiration probe was utilized and any residual cortex was removed from the eye. Again, viscoelastic was injected into the anterior chamber. An Venkatesh posterior chamber lens implant was placed in a delivery cartridge and injected into the anterior chamber. A Sinskey hook was utilized to spin the lens into position within the capsular bag. The irrigation and aspiration probe was again introduced and any residual viscoelastic was removed from the eye. BSS was injected via blunt canula into the limbal stab incision and the anterior chamber was re-inflated. The conjunctiva was reapproximated using electrocautery. One drop of 0.25% Timoptic was placed over the corneal along with an antibiotic ophthalmic ointment. Two sterile patches and a Sung eye shield were taped into position. The patient was transported to the recovery room in stable condition. Pathology: none sent Condition: stable Disposition: same day
[2018-11-20 10:55] VITALS: BP 111/70; PULSE 57
[2018-11-20] MEDS ORDERED: TIMOLOL 0.5% OPHTH DROPS 5 ML BTL OP ONE (23:00)
[2018-11-20] MEDS ORDERED: GENTAMICIN/PREDNISOL AC OPHTH OINT 3.5GM OPHTHALMIC ONE (23:00)
== END 2018-11-20 11:23 | disposition home or self-care (01) ==
LOC: OR 08:10
PROVIDERS: ATTEND Ophthalmology
DX: H25.13 Age-related nuclear cataract, bilateral (principal); G35 Multiple sclerosis; E07.9 Disorder of thyroid, unspecified; Z95.1 Presence of aortocoronary bypass graft; Z83.3 Family history of diabetes mellitus; I69.351 Hemiplegia and hemiparesis following cerebral infarction affecting right dominant side; I20.9 Angina pectoris, unspecified; Z86.711 Personal history of pulmonary embolism; G47.33 Obstructive sleep apnea (adult) (pediatric); M79.7 Fibromyalgia; M19.90 Unspecified osteoarthritis, unspecified site; Z79.01 Long term (current) use of anticoagulants; Z79.82 Long term (current) use of aspirin; Z79.890 Hormone replacement therapy; Z79.891 Long term (current) use of opiate analgesic; Z79.899 Other long term (current) drug therapy; Z91.09 Other allergy status, other than to drugs and biological substances
CPT/HCPCS: 66984; V2632; J3470; J2001; J0171; J2704

== ENCOUNTER → 2019-02-20 | Outpatient (CLI) | payer MEDICARE, OTHER ==
[2019-02-20 15:33] LABS: INR 1.1 (<1.2); Partial Thromboplastin Time 26.7 sec (22.0-30.0); Prothrombin Time 11.8 sec (9.0-12.0)
== END | disposition home or self-care (01) ==
LOC: LABWHC1 14:54
PROVIDERS: ATTEND Nurse Practitioner Family
DX: I63.9 Cerebral infarction, unspecified (principal)
CPT/HCPCS: 36415; 85610; 85730

== ENCOUNTER → 2019-03-14 | Outpatient (CLI) | payer MEDICARE, OTHER ==
[2019-03-14 12:11] LABS: Partial Thromboplastin Time 25.6 sec (22.0-30.0); Prothrombin Time 10.7 sec (9.0-12.0)
== END | disposition home or self-care (01) ==
LOC: LABWHC1 11:39
PROVIDERS: ATTEND Nurse Practitioner Family
DX: I63.9 Cerebral infarction, unspecified (principal)
CPT/HCPCS: 36415; 85610; 85730

== ENCOUNTER 2019-05-11 12:35 | Inpatient (IN) | payer MEDICARE, OTHER ==
--- NOTE | 2019-05-11 13:02 | ED ---
General Adult HPI - General Chief complaint: Chest Pain Stated complaint: CHEST PAIN, LEFT SIDE PAIN Time Seen by Provider: 05/11/19 12:45 Source: patient, family, RN notes reviewed, old records reviewed Mode of arrival: ambulatory Limitations: language barrier - History of Present Illness Initial comments: 63-year-old female history of previous CVA with expressive aphasia presenting for evaluation of chest pain. History is very limited secondary to expressive aphasia. Patient indicates show no episode of chest pain this morning which was central and left-sided. There is no reported diaphoresis or vomiting. Pain is improved at the time my evaluation. Denies abdominal pain. Denies fever. Again history is limited secondary to expressive aphasia. - Related Data Home Medications Medication Instructions Recorded Confirmed Aspirin 81 mg PO DAILY@0900 11/08/13 11/15/18 Baclofen [Lioresal] 10 mg PO DAILY@169911/08/13 11/15/18 Citalopram Hydrobromide [CeleXA] 40 mg PO HS@2100 11/08/13 11/15/18 Ferrous Sulfate [Feosol] 325 mg PO DAILY@169911/08/13 11/15/18 Fexofenadine HCl [Mimi Allergy] 180 mg PO DAILY@169911/08/13 11/15/18 Furosemide [Lasix] 40 mg PO BID@0900,169911/08/13 11/15/18 Montelukast [Singulair] 10 mg PO DAILY@169911/08/13 11/15/18 Nitroglycerin Sl Tabs [Nitrostat] 0.4 mg SUBLINGUAL Q5M PRN 11/08/13 11/20/18 Pantoprazole Sodium [Protonix] 40 mg PO DAILY@0900 11/08/13 11/15/18 Potassium Chloride 20 meq PO BID@0900,1700 11/08/13 11/15/18 Cholecalciferol [Vitamin D3 (25 2,000 unit PO DAILY@0911/18/15 11/15/18 Mcg = 1000 Iu)] Fluticasone Nasal [place] [Flonase 1 spray EA NOSTRIL BID 11/18/15 11/15/18 Nasal [place]] Methylphenidate HCl [Ritalin] 20 mg PO BID@0900,1200 11/18/15 11/15/18 Pravastatin Sodium [Pravachol] 20 mg PO HS@209911/18/15 11/15/18 fentaNYL [Fentanyl] 25 mcg TRANSDERM Q72H PRN 11/18/15 11/15/18 Pregabalin [Lyrica] 100 mg PO TID@0900,1700,2100 07/13/16 11/15/18 Folic Acid 0.4 mg PO DAILY@0900 08/18/16 11/15/18 Dimethyl Fumarate [Tecfidera] 240 mg PO BID@0900,2100 04/04/18 11/15/18 Albuterol Inhaler [Ventolin Hfa 1 - 2 puff INHALATION RT-Q6H PRN 09/26/18 11/15/18 Inhaler] Bisacodyl 10 mg PO BID 09/26/18 11/15/18 Cyanocobalamin/Folic AC/Vit B6 1 tab PO DAILY 09/26/18 11/15/18 [Fabb Tablet] Nystatin 100,000 Unit/gm Powd 1 applic TOPICAL BID 09/26/18 11/15/18 [Mycostatin Powder] Warfarin [Coumadin] 7.5 mg PO MOTUTHFRSA 09/26/18 11/15/18 Warfarin [Coumadin] 10 mg PO SUWE 09/26/18 11/15/18 Previous Rx's Medication Instructions Recorded Docusate [Colace] 100 mg PO BID #30 cap 09/11/18 Levothyroxine Sodium [Levoxyl] 75 mcg PO DAILY #30 tab 09/11/18 Allergies Allergy/AdvReac Type Severity Reaction Status Date / Time adhesive Allergy SKIN Verified 05/11/19 12:40 PEELING Review of Systems ROS Statement: Those systems with pertinent positive or pertinent negative responses have been documented in the HPI. ROS Other: All systems not noted in ROS Statement are negative. Past Medical History Past Medical History: Chest Pain / Angina, CVA/TIA, Fibromyalgia, Musculoskeletal Disorder, Neurologic Disorder, Osteoarthritis (OA), Pulmonary Embolus (PE), Sleep Apnea/CPAP/BIPAP, Thyroid Disorder Additional Past Medical History / Comment(s): MULTIPLE SCLEROSIS, 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 PAINFUL FOR HER TO LIE FLAT. HX OF NOSEBLEED JUL 2014 AND RECEIVED PLASMA TRANSFUSION. takes pills with applesauce. History of Any Multi-Drug Resistant Organisms: VRE Date of last positivie culture/infection: 10/24/09 confirmed with infectious disease nurse on 08/18/16. MDRO Source:: URINE Past Surgical History: Ablation, Appendectomy, Cholecystectomy, Hernia Repair, Hysterectomy Additional Past Surgical History / Comment(s): Incisional hernia repair, laparoscopic lysis of adhesions in 1987, ganglion cyst removal of the left wrist, patent foramen ovale patch in 2006, RF ablation for back pain. Past Anesthesia/Blood Transfusion Reactions: No Reported Reaction Past Psychological History: Depression Smoking Status: Never smoker - Past Family History Mother Family Medical History: Hypertension Additional Family Medical History / Comment(s): osteoporosis Father Family Medical History: Dementia General Exam Limitations: language barrier General appearance: alert, in no apparent distress Head exam: Present: atraumatic, normocephalic Eye exam: Present: normal appearance, PERRL Neck exam: Present: normal inspection Respiratory exam: Present: normal lung sounds bilaterally. Absent: respiratory distress Cardiovascular Exam: Present: regular rate, normal rhythm GI/Abdominal exam: Present: soft. Absent: distended, tenderness, guarding Extremities exam: Present: normal inspection, normal capillary refill. Absent: pedal edema Neurological exam: Present: alert, other (Expressive aphasia) Skin exam: Present: warm, dry, intact Course Vital Signs 05/11/19 05/11/19 05/11/19 12:40 13:00 14:00 Temperature 98 F Pulse Rate 73 64 62 Respiratory 18 16 17 Rate Blood Pressure 121/76 135/81 140/70 O2 Sat by Pulse 98 95 95 Oximetry EKG Findings - EKG Comments: EKG Findings:: EKG: Atrial flutter with 4.1 AV conduction, rate 67, QRS duration 80, QTC 431, no ST segment elevation. Medical Decision Making - Medical Decision Making 63 yo female with expressive aphasia presenting with an episode of chest pain. History limited secondary to expressive aphasia. EKG shows atrial flutter with 421 AV conduction, no definitive signs of acute ischemia. Chest x-ray obtained concerning for small bilateral effusions, no other acute process. Patient has normal CBC, therapeutic INR, normal electrolytes. She has a negative d-dimer, negative troponin. Patient had nondiagnostic stress test approximately 8 months ago. She will be kept in observation for serial cardiac enzymes, cardiology consultation, and telemetry. - Lab Data Result diagrams: 05/11/19 13:10 05/11/19 13:10 Lab Results 05/11/19 05/11/19 05/11/19 Range/Units 13:10 13:10 13:10 WBC 8.2 (3.8-10.6) k/uL RBC 5.06 (3.80-5.40) m/uL Hgb 15.6 (11.4-16.0) gm/dL Hct 45.0 (34.0-46.0) % MCV 88.8 (80.0-100.0) fL MCH 30.9 (25.0-35.0) pg MCHC 34.8 (31.0-37.0) g/dL RDW 13.1 (11.5-15.5) % Plt Count 100 L (150-450) k/uL Neutrophils % 92 % Lymphocytes % 3 % Monocytes % 3 % Eosinophils % 1 % Basophils % 1 % Neutrophils # 7.5 (1.3-7.7) k/uL Lymphocytes # 0.3 L (1.0-4.8) k/uL Monocytes # 0.3 (0-1.0) k/uL Eosinophils # 0.1 (0-0.7) k/uL Basophils # 0.1 (0-0.2) k/uL PT 20.2 H (9.0-12.0) sec INR 2.1 H (<1.2) APTT 29.0 (22.0-30.0) sec D-Dimer <0.17 (<0.60) mg/L FEU Sodium 140 (137-145) mmol/L Potassium 4.3 (3.5-5.1) mmol/L Chloride 99 (98-107) mmol/L Carbon Dioxide 33 H (22-30) mmol/L Anion Gap 8 mmol/L BUN 43 H (7-17) mg/dL Creatinine 1.20 H (0.52-1.04) mg/dL Est GFR (CKD-EPI)AfAm 55 (>60 ml/min/1.73 sqM) Est GFR (CKD-EPI)NonAf 48 (>60 ml/min/1.73 sqM) Glucose 180 H (74-99) mg/dL Calcium 9.6 (8.4-10.2) mg/dL Magnesium 2.3 (1.6-2.3) mg/dL Total Bilirubin 1.1 (0.2-1.3) mg/dL AST 36 (14-36) U/L ALT 41 (9-52) U/L Alkaline Phosphatase 94 (38-126) U/L Troponin I (0.000-0.034) ng/mL NT-Pro-B Natriuret Pep pg/mL Total Protein 6.4 (6.3-8.2) g/dL Albumin 4.0 (3.5-5.0) g/dL Lipase 66 (23-300) U/L 05/11/19 05/11/19 Range/Units 13:10 13:10 WBC (3.8-10.6) k/uL RBC (3.80-5.40) m/uL Hgb (11.4-16.0) gm/dL Hct (34.0-46.0) % MCV (80.0-100.0) fL MCH (25.0-35.0) pg MCHC (31.0-37.0) g/dL RDW (11.5-15.5) % Plt Count (150-450) k/uL Neutrophils % % Lymphocytes % % Monocytes % % Eosinophils % % Basophils % % Neutrophils # (1.3-7.7) k/uL Lymphocytes # (1.0-4.8) k/uL Monocytes # (0-1.0) k/uL Eosinophils # (0-0.7) k/uL Basophils # (0-0.2) k/uL PT (9.0-12.0) sec INR (<1.2) APTT (22.0-30.0) sec D-Dimer (<0.60) mg/L FEU Sodium (137-145) mmol/L Potassium (3.5-5.1) mmol/L Chloride (98-107) mmol/L Carbon Dioxide (22-30) mmol/L Anion Gap mmol/L BUN (7-17) mg/dL Creatinine (0.52-1.04) mg/dL Est GFR (CKD-EPI)AfAm (>60 ml/min/1.73 sqM) Est GFR (CKD-EPI)NonAf (>60 ml/min/1.73 sqM) Glucose (74-99) mg/dL Calcium (8.4-10.2) mg/dL Magnesium (1.6-2.3) mg/dL Total Bilirubin (0.2-1.3) mg/dL AST (14-36) U/L ALT (9-52) U/L Alkaline Phosphatase (38-126) U/L Troponin I <0.012 (0.000-0.034) ng/mL NT-Pro-B Natriuret Pep 158 pg/mL Total Protein (6.3-8.2) g/dL Albumin (3.5-5.0) g/dL Lipase (23-300) U/L Disposition Clinical Impression: Chest pain Disposition: ADMITTED IP TO THIS [facility] Condition: Stable Is patient prescribed a controlled substance at d/c from ED?: No Referrals: Sarah Paredes MD [Primary Care Provider] - 1-2 days Decision to Admit Reason: Admit from EC Decision Date: 05/11/19 Decision Time: 14:24
[2019-05-11 13:27] LABS: Basophils # (A) 0.1 k/uL (0-0.2); Basophils % (A) 1 %; Eosinophils # (A) 0.1 k/uL (0-0.7); Eosinophils % (A) 1 %; HGB 15.6 gm/dL (11.4-16.0); Lymphocytes # (A) 0.3 k/uL (1.0-4.8); Lymphocytes % (A) 3 %; MCH 30.9 pg (25.0-35.0); MCHC 34.8 g/dL (31.0-37.0); MCV 88.8 fL (80.0-100.0); Monocytes # (A) 0.3 k/uL (0-1.0); Monocytes % (A) 3 %; Neutrophils # (A) 7.5 k/uL (1.3-7.7); Neutrophils % (A) 92 %; Platelet Count 100 k/uL (150-450); RBC 5.06 m/uL (3.80-5.40); RDW 13.1 % (11.5-15.5); WBC 8.2 k/uL (3.8-10.6)
--- NOTE | 2019-05-11 13:36 | XR ---
EXAMINATION TYPE: XR chest 2V DATE OF EXAM: 05/11/2019 HISTORY: Chest Pain. REFERENCE: Previous study dated 09/27/2018. FINDINGS: Heart size upper limits of normal. There is some atelectasis or consolidation at the left l joleen base. This is chronic apparent elevation right hemidiaphragm. There is some associated atelectasi s at the right lung base. There is blunting of both CP angles. I could not exclude small effusions. IMPRESSION: 1. BORDERLINE CARDIOMEGALY. 2. BIBASILAR AIRSPACE DISEASE. 3. I COULD NOT EXCLUDE SMALL, BILATERAL EFFUSIONS.
[2019-05-11 13:37] LABS: Calcium 9.6 mg/dL (8.4-10.2); Magnesium 2.3 mg/dL (1.6-2.3); Potassium 4.3 mmol/L (3.5-5.1); Total Bilirubin 1.1 mg/dL (0.2-1.3); Total Protein 6.4 g/dL (6.3-8.2)
[2019-05-11 13:43] LABS: D-Dimer <0.17 mg/L FEU (<0.60); INR 2.1 (<1.2); Prothrombin Time 20.2 sec (9.0-12.0)
[2019-05-11] MEDS ORDERED: MORPHINE SULFATE 4 MG/ML SYRINGE IV PRN (14:24)
[2019-05-11] MEDS ORDERED: ONDANSETRON 4 MG/2 ML VIAL IVP PRN (14:24)
[2019-05-11] MEDS ORDERED: ACETAMINOPHEN TAB 325 MG TAB PO PRN (14:24)
[2019-05-11] MEDS ORDERED: NALOXONE 0.4 MG/ML 1 ML VIAL IV PRN (14:24)
[2019-05-11] MEDS ORDERED: ASPIRIN 325 MG TAB PO STA (14:24)
[2019-05-11 16:25] VITALS: BMI 35.7
[2019-05-11] MEDS ORDERED: NITROGLYCERIN SL TABS 0.4 MG TAB SUBLINGUAL PRN (17:07)
[2019-05-11] MEDS ORDERED: HYDROcodone/APAP 5-325MG 1 EACH TAB PO PRN (18:18)
[2019-05-11] MEDS: CITALOPRAM HYDROBROMIDE 20 MG TAB PO SCH (21:23)
[2019-05-11] MEDS: PREGABALIN 100 MG CAP PO SCH (21:23)
[2019-05-11] MEDS: FLUTICASONE 50MCG/SPRAY NASAL 16GM EA NOSTRIL SCH (21:23)
[2019-05-11] MEDS: PRAVASTATIN SODIUM 20 MG TAB PO SCH (21:23)
[2019-05-11] MEDS: NON FORMULARY DRUG (Dimethyl Fumarate [Tecfidera] 240 MG) PO SCH (21:33)
[2019-05-12] MEDS: PANTOPRAZOLE 40 MG TABLET PO SCH (05:57)
[2019-05-12] MEDS: LEVOTHYROXINE 75 MCG TAB PO SCH (05:58)
[2019-05-12 06:13] LABS: INR 1.5 (<1.2); Prothrombin Time 15.1 sec (9.0-12.0)
[2019-05-12] MEDS: LORATADINE 10 MG TAB PO SCH (08:49)
[2019-05-12] MEDS: PREGABALIN 100 MG CAP PO SCH ×3 (08:49→21:31)
[2019-05-12] MEDS: POTASSIUM CHLORIDE ER 20 MEQ TAB.ER PO SCH ×2 (08:49→18:07)
[2019-05-12] MEDS: CHOLECALCIFEROL 1,000 UNIT TAB PO SCH (08:49)
[2019-05-12] MEDS: METHYLPHENIDATE HCL 10 MG TAB PO SCH ×2 (08:50→14:59)
[2019-05-12] MEDS: FUROSEMIDE 40 MG TAB PO SCH ×2 (08:51→18:07)
[2019-05-12] MEDS: ASPIRIN 81 MG PO SCH (08:51)
[2019-05-12] MEDS: FOLIC ACID 1 MG TAB PO SCH (08:51)
[2019-05-12] MEDS: NON FORMULARY DRUG (Dimethyl Fumarate [Tecfidera] 240 MG) PO SCH ×3 (08:52→21:31)
--- NOTE | 2019-05-12 10:40 | P.CRDCN ---
History of Present Illness History of present illness: HISTORY OF PRESENTING ILLNESS This is a pleasant 63-year-old past medical history significant for CVA with right-sided weakness and expressive aphasia, PE on long-term anticoagulation, sleep apnea and dyslipidemia. She presented with chest pain. She follows in the office with Dr. Dowling. We have been asked to see him in consultation for chest pain. She is seen and examined sitting in bed in no acute distress. She is somewhat of a poor historian secondary to expressive aphasia. She is able to verbalize to me that her chest is hurting. She is holding her chest with both hands and states the pain is very sharp, worse when she takes a deep breath and is quite reproducible on light palpation in the midsternal region. She denies shortness of breath, dizziness or palpitations. She was recently seen in the office and underwent a Lexiscan stress test that was negative for reversible ischemia. This was October 2018. Overnight telemetry tracings indicate she had some sinus bradycardia. Patient states she does have obstructive sleep apnea however is noncompliant with her CPAP. DIAGNOSTICS EKG reveals EKG on admission reveals sinus mechanism heart rate of 67, repeat EKG the same. Chest xray basilar airspace disease. Laboratory reviewed, WBC 8.2, hemoglobin 15.6, platelets 100, d-dimer less than 0.17, sodium 140, potassium 4.3, creatinine 1.2, magnesium 2.3, cardiac enzymes negative 3, proBNP 158. Current cardiac medications include aspirin 81 mg daily, Lasix 40 mg twice a day and pravastatin 20 mg daily. REVIEW OF SYSTEMS At the time of my exam: CONSTITUTIONAL: Denies fever or chills. CARDIOVASCULAR: Complains of pleuritic chest pain. Denies shortness of breath, orthopnea, PND or palpitations. RESPIRATORY: Denies cough. GASTROINTESTINAL: Denies abdominal pain, diarrhea, constipation, nausea or vomiting. MUSCULOSKELETAL: Denies myalgias. NEUROLOGIC: Denies numbness, tingling or weakness. ENDOCRINE: Denies fatigue, weight change, polydipsia or polyurina. GENITOURINARY: Denies burning, hematuria or urgency with micturation. HEMATOLOGIC: Denies history of anemia or bleeding. PHYSICAL EXAMINATION Blood pressure 115/57 heart rate 50 afebrile and maintaining oxygen saturaiton on room air. CONSTITUTIONAL: No apparent distress. HEENT: Head is normocephalic. Pupils are equal, round. Sclerae anicteric. Mucous membranes of the mouth are moist. No JVD. No carotid bruit. CHEST EXAMINATION: Lungs are clear to auscultation. No chest wall tenderness is noted on palpation or with deep breathing. HEART EXAMINATION: Regular rate and rhythm. S1, S2 heard. No murmurs, gallops or rub. ABDOMEN: Soft, nontender. Positive bowel sounds. EXTREMITIES: 2+ peripheral pulses, no lower extremity edema and no calf tenderness. NEUROLOGIC EXAMINATION: Patient is awake, alert and oriented x3. ASSESSMENT Chest pain, pleuritic and reproducible. Atypical for angina. An acute coronary event has been ruled out History of PE on long-term anticoagulation Obstructive sleep apnea, sinus bradycardia while sleeping History of CVA with right-sided weakness and expressive aphasia Dyslipidemia Obesity, BMI 34 PLAN An acute coronary event has been ruled out. Recent stress test in the office unremarkable. Pain is atypical for angina. Stable for discharge from a cardiac perspective. Thank you kindly for this consultation. Nurse Practitioner note has been reviewed, I agree with a documented findings and plan of care. Patient was seen and examined. Past Medical History Past Medical History: Chest Pain / Angina, CVA/TIA, Fibromyalgia, Musculoskeletal Disorder, Neurologic Disorder, Osteoarthritis (OA), Pulmonary Embolus (PE), Sleep Apnea/CPAP/BIPAP, Thyroid Disorder Additional Past Medical History / Comment(s): MULTIPLE SCLEROSIS, 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 PAINFUL FOR HER TO LIE FLAT. HX OF NOSEBLEED JUL 2014 AND RECEIVED PLASMA TRANSFUSION. takes pills with applesauce. History of Any Multi-Drug Resistant Organisms: VRE Date of last positivie culture/infection: 10/24/09 confirmed with infectious disease nurse on 08/18/16. MDRO Source:: URINE Past Surgical History: Ablation, Appendectomy, Cholecystectomy, Hernia Repair, Hysterectomy Additional Past Surgical History / Comment(s): Incisional hernia repair, laparoscopic lysis of adhesions in 1987, ganglion cyst removal of the left wrist, patent foramen ovale patch in 2006, RF ablation for back pain. Past Anesthesia/Blood Transfusion Reactions: No Reported Reaction Additional Psychological History / Comment(s): CELEXA to help sleep at night per . PT HAS DIFFICULTY W/SPEECH . HAS TO LOOK AT DIETARY MENU TO ORDER CAN'T DO IT BY PHONE. Pt resides with her spouse. She uses a cane to ambulate. She also has a walker.cpap machine Spouse drives her to appointments. Spouse assists her with some ADLs when needed. Smoking Status: Never smoker Past Alcohol Use History: None Reported Past Drug Use History: None Reported Additional Drug Use History / Comment(s): Lives at home with her requires some assistance with ADLs at times - Past Family History Mother Family Medical History: Hypertension Additional Family Medical History / Comment(s): osteoporosis Father Family Medical History: Dementia, Diabetes Mellitus Medications and Allergies Home Medications Medication Instructions Recorded Confirmed Type Aspirin 81 mg PO DAILY@0900 11/08/13 05/11/19 History Baclofen [Lioresal] 10 mg PO DAILY@169911/08/13 05/11/19 History Citalopram Hydrobromide [CeleXA] 40 mg PO HS@209911/08/13 05/11/19 History Ferrous Sulfate [Feosol] 325 mg PO DAILY@169911/08/13 05/11/19 History Furosemide [Lasix] 40 mg PO BID@0900,169911/08/13 05/11/19 History Montelukast [Singulair] 10 mg PO DAILY@169911/08/13 05/11/19 History Nitroglycerin Sl Tabs [Nitrostat] 0.4 mg SUBLINGUAL Q5M PRN 11/08/13 05/11/19 History Pantoprazole Sodium [Protonix] 40 mg PO DAILY@0600 11/08/13 05/11/19 History Potassium Chloride 20 meq PO BID@0900,1700 11/08/13 05/11/19 History Cholecalciferol [Vitamin D3 (25 2,000 unit PO DAILY@89911/18/15 05/11/19 History Mcg = 1000 Iu)] Fluticasone Nasal [place] [Flonase 1 spray EA NOSTRIL BID@0900,209911/18/15 05/11/19 History Nasal [place]] Methylphenidate HCl [Ritalin] 20 mg PO BID@0900,1200 11/18/15 05/11/19 History Pravastatin Sodium [Pravachol] 20 mg PO HS@2100 11/18/15 05/11/19 History fentaNYL [Fentanyl] 25 mcg TRANSDERM Q72H 11/18/15 05/11/19 History Pregabalin [Lyrica] 100 mg PO TID@0900,1700,2100 07/13/16 05/11/19 History Folic Acid 0.4 mg PO DAILY@0900 08/18/16 05/11/19 History Dimethyl Fumarate [Tecfidera] 240 mg PO BID 04/04/18 05/11/19 History Fexofenadine HCl 180 mg PO DAILY 05/11/19 05/11/19 History HYDROcodone/APAP 5-325MG [[place] 1 tab PO Q6HR PRN 05/11/19 05/11/19 History 5-325] Levothyroxine Sodium [Levoxyl] 75 mcg PO DAILY@0900 05/11/19 05/11/19 History Warfarin [Coumadin] 7.5 mg PO MOTUTHFR 05/11/19 05/11/19 History Warfarin [Coumadin] 10 mg PO SUWE 05/11/19 05/11/19 History Allergies Allergy/AdvReac Type Severity Reaction Status Date / Time adhesive Allergy SKIN Verified 05/11/19 14:25 PEELING Physical Exam Vitals: Vital Signs Temp Pulse Pulse Resp BP BP Pulse Ox 05/12/19 04:00 98.0 F 42 L 14 125/61 94 L 05/12/19 00:00 97.9 F 52 L 16 119/65 96 05/11/19 20:00 97.8 F 61 16 108/59 94 L 05/11/19 16:00 97.5 F L 64 16 128/57 96 05/11/19 15:00 98 F 59 L 23 134/75 98 05/11/19 14:47 98 F 59 L 16 118/60 96 05/11/19 14:00 62 17 140/70 95 05/11/19 13:00 64 16 135/81 95 05/11/19 12:40 98 F 73 18 121/76 98 Intake and Output 05/11/19 05/12/19 05/12/19 22:59 06:59 14:59 Intake Total 300 400 Output Total 350 250 Balance -50 150 Intake: Oral 300 400 Output: Urine 350 250 Other: # Voids 1 Weight 93 kg Results 05/11/19 13:10 05/11/19 13:10 Cardiac Enzymes 05/11/19 05/11/19 05/11/19 Range/Units 13:10 13:10 18:57 AST 36 (14-36) U/L Troponin I <0.012 <0.012 (0.000-0.034) ng/mL 05/12/19 Range/Units 01:16 AST (14-36) U/L Troponin I <0.012 (0.000-0.034) ng/mL Coagulation 05/11/19 05/12/19 Range/Units 13:10 05:51 PT 20.2 H 15.1 H (9.0-12.0) sec APTT 29.0 (22.0-30.0) sec CBC 05/11/19 Range/Units 13:10 WBC 8.2 (3.8-10.6) k/uL RBC 5.06 (3.80-5.40) m/uL Hgb 15.6 (11.4-16.0) gm/dL Hct 45.0 (34.0-46.0) % Plt Count 100 L (150-450) k/uL Comprehensive Metabolic Panel 05/11/19 Range/Units 13:10 Sodium 140 (137-145) mmol/L Potassium 4.3 (3.5-5.1) mmol/L Chloride 99 (98-107) mmol/L Carbon Dioxide 33 H (22-30) mmol/L BUN 43 H (7-17) mg/dL Creatinine 1.20 H (0.52-1.04) mg/dL Glucose 180 H (74-99) mg/dL Calcium 9.6 (8.4-10.2) mg/dL AST 36 (14-36) U/L ALT 41 (9-52) U/L Alkaline Phosphatase 94 (38-126) U/L Total Protein 6.4 (6.3-8.2) g/dL Albumin 4.0 (3.5-5.0) g/dL Current Medications Generic Name Dose Route Start Last Admin Trade Name Freq PRN Reason Stop Dose Admin Acetaminophen 650 mg 05/11/19 14:24 Tylenol Tab PO Q6HR PRN Mild Pain or Fever > 100.5 Hydrocodone Bitart/Acetaminophen 1 each 05/11/19 18:18 [place] 5-325 PO Q6HR PRN Pain Aspirin 81 mg 05/12/19 09:00 Aspirin PO DAILY@0900 [facility] Baclofen 10 mg 05/12/19 17:00 Lioresal PO DAILY@1700 [facility] Cholecalciferol 2,000 unit 05/12/19 09:00 Vitamin D3 (25 Mcg = 1000 Iu) PO DAILY@0900 [facility] Citalopram Hydrobromide 40 mg 05/11/19 21:00 05/11/19 21:23 Celexa PO 40 mg HS@2100 [facility] Administration Fentanyl 1 patch 05/12/19 08:00 Duragesic 25mcg/Hr Patch TRANSDERM Q72H [facility] Ferrous Sulfate 325 mg 05/12/19 17:00 Feosol PO DAILY@1700 [facility] Fluticasone Propionate 1 spray 05/11/19 21:00 05/11/19 21:23 Flonase Nasal [place] EA NOSTRIL 1 spray BID@0900,2100 [facility] Administration Folic Acid 0.5 mg 05/12/19 09:00 Folic Acid PO DAILY@0900 [facility] Furosemide 40 mg 05/12/19 09:00 Lasix PO BID@0900,1700 [facility] Levothyroxine Sodium 75 mcg 05/12/19 06:30 05/12/19 05:58 Synthroid PO 75 mcg DAILY@0630 [facility] Administration Loratadine 10 mg 05/12/19 09:00 Claritin PO DAILY [facility] Methylphenidate HCl 20 mg 05/12/19 09:00 Ritalin PO BID@0900,1200 [facility] Montelukast Sodium 10 mg 05/12/19 17:00 Singulair PO DAILY@1700 [facility] Morphine Sulfate 4 mg 05/11/19 14:24 Morphine Sulfate (Inj) IV Q4HR PRN Severe Pain Naloxone HCl 0.2 mg 05/11/19 14:24 Narcan IV Q2M PRN Opioid Reversal Nitroglycerin 0.4 mg 05/11/19 17:07 Nitrostat SUBLINGUAL Q5M PRN Chest Pain Non-Formulary Medication 240 mg 05/11/19 21:00 05/11/19 21:33 Dimethyl Fumarate [Tecfidera] PO Not Given BID [facility] Ondansetron HCl 4 mg 05/11/19 14:24 Zofran IVP Q8HR PRN Nausea And Vomiting Pantoprazole Sodium 40 mg 05/12/19 06:00 05/12/19 05:57 Protonix PO 40 mg DAILY@0600 [facility] Administration Potassium Chloride 20 meq 05/12/19 09:00 K-Dur 20 PO BID@0900,1700 [facility] Pravastatin Sodium 20 mg 05/11/19 21:00 05/11/19 21:23 Pravachol PO 20 mg HS@2100 [facility] Administration Pregabalin 100 mg 05/11/19 21:00 05/11/19 21:23 Lyrica PO 100 mg TID@0900,1700,2100 [facility] Administration Warfarin Sodium 10 mg 05/12/19 18:00 Coumadin PO SUWE [facility] Warfarin Sodium 7.5 mg 05/13/19 18:00 Coumadin PO [id number] [facility] Intake and Output 05/11/19 05/12/19 05/12/19 22:59 06:59 14:59 Intake Total 300 400 Output Total 350 250 Balance -50 150 Intake: Oral 300 400 Output: Urine 350 250 Other: # Voids 1 Weight 93 kg 05/11/19 13:10 05/11/19 13:10
--- NOTE | 2019-05-12 14:24 | P.HPIM ---
History of Present Illness H&P Date: 05/12/19 Chief Complaint: Chest pain Huong Cooper, is a 63-year-old female well known to my practice who presented to [facility] emergency room with a chief complaint of chest pain patient describes a pressure sensation in the lower part of her chest she is holding her chest with her hands, she states that her pain is better now as compared to the time she came to emergency room. Patient has expressive aphasia due to previous stroke and is difficult to understand but she is clearly complaining of chest pain. She has been seen by cardiology in the past her last stress test was in October 2018 which was reported as negative. Patient has a known history of stroke in the past with right sided weakness, she also has a known history of pulmonary embolism and is maintained on anticoagulation, she also has a known history of multiple sclerosis. Past Medical History Past Medical History: Chest Pain / Angina, CVA/TIA, Fibromyalgia, Musculoskeletal Disorder, Neurologic Disorder, Osteoarthritis (OA), Pulmonary Embolus (PE), Sleep Apnea/CPAP/BIPAP, Thyroid Disorder Additional Past Medical History / Comment(s): MULTIPLE SCLEROSIS, 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 PAINFUL FOR HER TO LIE FLAT. HX OF NOSEBLEED JUL 2014 AND RECEIVED PLASMA TRANSFUSION. takes pills with applesauce. History of Any Multi-Drug Resistant Organisms: VRE Date of last positivie culture/infection: 10/24/09 confirmed with infectious disease nurse on 08/18/16. MDRO Source:: URINE Past Surgical History: Ablation, Appendectomy, Cholecystectomy, Hernia Repair, Hysterectomy Additional Past Surgical History / Comment(s): Incisional hernia repair, laparoscopic lysis of adhesions in 1987, ganglion cyst removal of the left wrist, patent foramen ovale patch in 2006, RF ablation for back pain. Past Anesthesia/Blood Transfusion Reactions: No Reported Reaction Additional Psychological History / Comment(s): CELEXA to help sleep at night per . PT HAS DIFFICULTY W/SPEECH . HAS TO LOOK AT DIETARY MENU TO ORDER CAN'T DO IT BY PHONE. Pt resides with her spouse. She uses a cane to ambulate. She also has a walker.cpap machine Spouse drives her to appointments. Spouse assists her with some ADLs when needed. Smoking Status: Never smoker Past Alcohol Use History: None Reported Past Drug Use History: None Reported Additional Drug Use History / Comment(s): Lives at home with her requires some assistance with ADLs at times - Past Family History Mother Family Medical History: Hypertension Additional Family Medical History / Comment(s): osteoporosis Father Family Medical History: Dementia, Diabetes Mellitus Medications and Allergies Home Medications Medication Instructions Recorded Confirmed Type Aspirin 81 mg PO DAILY@0900 11/08/13 05/11/19 History Baclofen [Lioresal] 10 mg PO DAILY@169911/08/13 05/11/19 History Citalopram Hydrobromide [CeleXA] 40 mg PO HS@209911/08/13 05/11/19 History Ferrous Sulfate [Feosol] 325 mg PO DAILY@169911/08/13 05/11/19 History Furosemide [Lasix] 40 mg PO BID@0900,1700 11/08/13 05/11/19 History Montelukast [Singulair] 10 mg PO DAILY@169911/08/13 05/11/19 History Nitroglycerin Sl Tabs [Nitrostat] 0.4 mg SUBLINGUAL Q5M PRN 11/08/13 05/11/19 History Pantoprazole Sodium [Protonix] 40 mg PO DAILY@0600 11/08/13 05/11/19 History Potassium Chloride 20 meq PO BID@0900,1700 11/08/13 05/11/19 History Cholecalciferol [Vitamin D3 (25 2,000 unit PO DAILY@0900 11/18/15 05/11/19 History Mcg = 1000 Iu)] Fluticasone Nasal Superior [Flonase 1 spray EA NOSTRIL BID@0900,209911/18/15 05/11/19 History Nasal Superior] Methylphenidate HCl [Ritalin] 20 mg PO BID@0900,1200 11/18/15 05/11/19 History Pravastatin Sodium [Pravachol] 20 mg PO HS@209911/18/15 05/11/19 History fentaNYL [Fentanyl] 25 mcg TRANSDERM Q72H 11/18/15 05/11/19 History Pregabalin [Lyrica] 100 mg PO TID@0900,1700,209907/13/16 05/11/19 History Folic Acid 0.4 mg PO DAILY@0900 08/18/16 05/11/19 History Dimethyl Fumarate [Tecfidera] 240 mg PO BID 04/04/18 05/11/19 History Fexofenadine HCl 180 mg PO DAILY 05/11/19 05/11/19 History HYDROcodone/APAP 5-325MG [Hamilton 1 tab PO Q6HR PRN 05/11/19 05/11/19 History 5-325] Levothyroxine Sodium [Levoxyl] 75 mcg PO DAILY@0900 05/11/19 05/11/19 History Warfarin [Coumadin] 7.5 mg PO MOTUTHFR 05/11/19 05/11/19 History Warfarin [Coumadin] 10 mg PO SUWE 05/11/19 05/11/19 History Allergies Allergy/AdvReac Type Severity Reaction Status Date / Time adhesive Allergy SKIN Verified 05/11/19 14:25 PEELING Physical Exam Vitals: Vital Signs Temp Pulse Pulse Resp BP BP Pulse Ox 05/12/19 12:00 97.7 F 74 18 154/69 98 05/12/19 08:00 97.8 F 50 L 16 115/57 96 05/12/19 04:00 98.0 F 42 L 14 125/61 94 L 05/12/19 00:00 97.9 F 52 L 16 119/65 96 05/11/19 20:00 97.8 F 61 16 108/59 94 L 05/11/19 16:00 97.5 F L 64 16 128/57 96 05/11/19 15:00 98 F 59 L 23 134/75 98 05/11/19 14:47 98 F 59 L 16 118/60 96 Intake and Output 05/11/19 05/12/19 05/12/19 22:59 06:59 14:59 Intake Total 300 400 236 Output Total 350 250 Balance -50 150 236 Intake: Oral 300 400 236 Output: Urine 350 250 Other: # Voids 1 Weight 93 kg In general patient is alert responsive answering questions appropriately in no apparent distress HEENT head normocephalic and atraumatic there is right sided facial drooping which is chronic Neck is supple no JVD no goiter no lymphadenopathy Chest exam reveals a few scattered crackles bilaterally no wheezing Cardiac exam reveals regular heart sounds S1 and S2 no gallops no murmurs Abdomen is soft nontender no organomegaly with normal bowel sounds Extremity exam reveals no edema no cyanosis or clubbing Neurological examination reveals right sided weakness, with sensitivity to touch on the right side of her body, symptoms are chronic Results CBC & Chem 7: 05/11/19 13:10 05/11/19 13:10 Labs: Abnormal Lab Results - Last 24 Hours (Table) 05/12/19 Range/Units 05:51 PT 15.1 H (9.0-12.0) sec INR 1.5 H (<1.2) Thrombosis Risk Factor Assmnt - Choose All That Apply Any of the Below Risk Factors Present?: Yes Each Risk Factor Represents 2 Points: Age 61-74 years Each Risk Factor Represents 3 Points: History of DVT/PE Other congenital or acquired thrombophilia - If yes, enter type in comment: No Thrombosis Risk Factor Assessment Total Risk Factor Score: 5 Thrombosis Risk Factor Assessment Level: High Risk Assessment and Plan Plan: #1 episode of chest pain, serial EKGs and cardiac enzymes are ordered cardiology consultation requested #2 history of pulmonary embolism INR on presentation was 2.1 INR today is down to 1.5, will cover with subcu Lovenox until INR is back to therapeutic range. D-dimer on presentation less than 0.17 #3 underlying history of multiple sclerosis with worsening weakness in the lower extremities Will consult neurology #4 acute renal insufficiency was elevated BUN at 43 elevated creatinine at 1.2 Will check kidney ultrasound, and monitor kidney function closely #5 previous history of stroke with residual right sided weakness #6 chronic pain patient is maintained on fentanyl and Hamilton #7 underlying history of obstructive sleep apnea patient is unable to tolerate CPAP machine At this time will add subcu Lovenox, consult neurology Awaiting input from cardiology will follow closely
[2019-05-12] MEDS: FLUTICASONE 50MCG/SPRAY NASAL 16GM EA NOSTRIL SCH ×2 (14:58→21:32)
[2019-05-12] MEDS: ENOXAPARIN 80 MG/0.8 ML SYRINGE SQ SCH ×2 (15:00→21:32)
[2019-05-12] MEDS ORDERED: WARFARIN 10 MG TAB PO SCH (18:00)
[2019-05-12] MEDS ORDERED: WARFARIN 5 MG TAB PO SCH (18:00)
[2019-05-12] MEDS: MONTELUKAST 10 MG TAB PO SCH (18:07)
[2019-05-12] MEDS: BACLOFEN 10 MG TAB PO SCH (18:07)
[2019-05-12] MEDS: FERROUS SULFATE 325 MG TAB PO SCH (18:07)
[2019-05-12] MEDS: CITALOPRAM HYDROBROMIDE 20 MG TAB PO SCH (21:31)
[2019-05-12] MEDS: PRAVASTATIN SODIUM 20 MG TAB PO SCH (21:31)
[2019-05-13 06:39] LABS: Basophils % (A) 0 %; Eosinophils # (A) 0.1 k/uL (0-0.7); Eosinophils % (A) 1 %; HCT 45.8 % (34.0-46.0); HGB 15.6 gm/dL (11.4-16.0); Lymphocytes # (A) 0.5 k/uL (1.0-4.8); Lymphocytes % (A) 8 %; MCH 30.9 pg (25.0-35.0); MCV 90.8 fL (80.0-100.0); Mean Platelet Volume 9.2; Monocytes # (A) 0.4 k/uL (0-1.0); Monocytes % (A) 7 %; Neutrophils # (A) 5.3 k/uL (1.3-7.7); Neutrophils % (A) 83 %; Platelet Count 102 k/uL (150-450); RBC 5.04 m/uL (3.80-5.40); RDW 13.5 % (11.5-15.5); WBC 6.5 k/uL (3.8-10.6)
[2019-05-13 06:46] LABS: INR 1.3 (<1.2); Prothrombin Time 13.3 sec (9.0-12.0)
[2019-05-13] MEDS: PANTOPRAZOLE 40 MG TABLET PO SCH (06:50)
[2019-05-13] MEDS: LEVOTHYROXINE 75 MCG TAB PO SCH (06:50)
[2019-05-13 07:01] LABS: Glucose,Whole Blood 140 mg/dL (75-99)
[2019-05-13 07:11] LABS: Albumin 3.7 g/dL (3.5-5.0); Calcium 8.9 mg/dL (8.4-10.2); Potassium 3.6 mmol/L (3.5-5.1); Total Bilirubin 1.6 mg/dL (0.2-1.3)
[2019-05-13] MEDS: LORATADINE 10 MG TAB PO SCH (08:08)
[2019-05-13] MEDS: FOLIC ACID 1 MG TAB PO SCH (08:08)
[2019-05-13] MEDS: POTASSIUM CHLORIDE ER 20 MEQ TAB.ER PO SCH ×2 (08:08→16:53)
[2019-05-13] MEDS: METHYLPHENIDATE HCL 10 MG TAB PO SCH ×2 (08:09→12:14)
[2019-05-13] MEDS: PREGABALIN 100 MG CAP PO SCH ×3 (08:09→21:34)
[2019-05-13] MEDS: CHOLECALCIFEROL 1,000 UNIT TAB PO SCH (08:09)
[2019-05-13] MEDS: ENOXAPARIN 80 MG/0.8 ML SYRINGE SQ SCH ×2 (08:09→21:35)
[2019-05-13] MEDS: FUROSEMIDE 40 MG TAB PO SCH ×2 (08:09→16:53)
[2019-05-13] MEDS: ASPIRIN 81 MG PO SCH (08:09)
[2019-05-13] MEDS: NON FORMULARY DRUG (Dimethyl Fumarate [Tecfidera] 240 MG) PO SCH ×2 (08:09→21:34)
[2019-05-13] MEDS: FLUTICASONE 50MCG/SPRAY NASAL 16GM EA NOSTRIL SCH ×2 (08:10→21:34)
--- NOTE | 2019-05-13 10:47 | P.PN ---
<Elin Morel P - Last Filed: 05/13/19 10:42> Subjective Progress Note Date: 05/13/19 Huong Cooper, is a 63-year-old female well known to my practice who presented to [facility] emergency room with a chief complaint of chest pain patient describes a pressure sensation in the lower part of her chest she is holding her chest with her hands, she states that her pain is better now as compared to the time she came to emergency room. Patient has expressive aphasia due to previous stroke and is difficult to understand but she is clearly complaining of chest pain. She has been seen by cardiology in the past her last stress test was in October 2018 which was reported as negative. Patient has a known history of stroke in the past with right sided weakness, she also has a known history of pulmonary embolism and is maintained on anticoagulation, she also has a known history of multiple sclerosis. On 05/13/2019 patient is alert and oriented 3. Patient is still having some chest discomfort. Patient was evaluated by cardiology services, per cardiology and acute coronary event has been ruled out. Ultrasound of abdomen and bladder and pelvis ordered. Coumadin remains subtherapeutic. Currently being bridged with Lovenox. Patient denies nausea vomiting or diarrhea. Patient denies shortness breath. Patient denies any urinary burning or frequency Objective - Vital Signs Vital signs: Vital Signs Temp 96.5 F L 05/13/19 08:00 Pulse 53 L 05/13/19 08:00 Resp 16 05/13/19 08:00 BP 110/55 05/13/19 08:00 Pulse Ox 94 L 05/13/19 08:00 Intake & Output 05/12/19 05/13/19 05/13/19 18:59 06:59 18:59 Intake Total 972 400 Output Total 300 Balance 972 100 Weight 89.5 kg Intake: Oral 972 400 Output: Urine 300 Other: Voiding Method Toilet # Voids 1 1 - Exam In general patient is alert responsive answering questions appropriately in no apparent distress HEENT head normocephalic and atraumatic there is right sided facial drooping which is chronic Neck is supple no JVD no goiter no lymphadenopathy Chest exam reveals a few scattered crackles bilaterally no wheezing Cardiac exam reveals regular heart sounds S1 and S2 no gallops no murmurs Abdomen is soft nontender no organomegaly with normal bowel sounds Extremity exam reveals no edema no cyanosis or clubbing Neurological examination reveals right sided weakness, with sensitivity to touch on the right side of her body, symptoms are chronic - Labs CBC & Chem 7: 05/13/19 05:28 05/13/19 05:28 Labs: Abnormal Lab Results - Last 24 Hours (Table) 05/13/19 05/13/19 05/13/19 Range/Units 05:28 05:28 05:28 Plt Count 102 L (150-450) k/uL Lymphocytes # 0.5 L (1.0-4.8) k/uL PT 13.3 H (9.0-12.0) sec INR 1.3 H (<1.2) Carbon Dioxide 35 H (22-30) mmol/L BUN 31 H (7-17) mg/dL Creatinine 1.07 H (0.52-1.04) mg/dL Glucose 130 H (74-99) mg/dL POC Glucose (mg/dL) (75-99) mg/dL Total Bilirubin 1.6 H (0.2-1.3) mg/dL AST 345 H (14-36) U/L ALT 307 H (9-52) U/L Alkaline Phosphatase 143 H (38-126) U/L Total Protein 6.0 L (6.3-8.2) g/dL 05/13/19 Range/Units 07:00 Plt Count (150-450) k/uL Lymphocytes # (1.0-4.8) k/uL PT (9.0-12.0) sec INR (<1.2) Carbon Dioxide (22-30) mmol/L BUN (7-17) mg/dL Creatinine (0.52-1.04) mg/dL Glucose (74-99) mg/dL POC Glucose (mg/dL) 140 H (75-99) mg/dL Total Bilirubin (0.2-1.3) mg/dL AST (14-36) U/L ALT (9-52) U/L Alkaline Phosphatase (38-126) U/L Total Protein (6.3-8.2) g/dL Assessment and Plan Assessment: #1 episode of chest pain, serial EKGs and cardiac enzymes are ordered cardiology consultation requested. Per cardiology acute coronary event has been ruled out. Recent stress test in the office unremarkable. Pain is atypical for angina. #2 history of pulmonary embolism INR on presentation was 2.1 INR today is down to 1.5, will cover with subcu Lovenox until INR is back to therapeutic range. D-dimer on presentation less than 0.17 #3 underlying history of multiple sclerosis with worsening weakness in the lower extremities Will consult neurology #4 acute renal insufficiency was elevated BUN at 43 elevated creatinine at 1.2 Will check kidney ultrasound, and monitor kidney function closely #5 previous history of stroke with residual right sided weakness #6 chronic pain patient is maintained on fentanyl and [place] #7 underlying history of obstructive sleep apnea patient is unable to tolerate CPAP machine #8. Elevated liver enzymes Tylenol on hold ultrasound ordered At this time will add subcu Lovenox, consult neurology I performed an examination of the patient and discussed their management with the Nurse Practitioner. I have reviewed the Nurse Practitioner's notes and agree with the documented findings and plan of care <Sarah Paredes - Last Filed: 05/16/19 10:02> Objective - Vital Signs Vital signs: Vital Signs Temp 97.9 F 05/16/19 04:00 Pulse 53 L 05/16/19 04:00 Resp 16 05/16/19 04:00 BP 121/70 05/16/19 04:00 Pulse Ox 95 05/16/19 04:00 Intake & Output 05/15/19 05/16/19 05/16/19 18:59 06:59 18:59 Intake Total 1488 540 Balance 1488 540 Weight 94.5 kg Intake: Oral 1488 540 Other: Voiding Method Toilet Toilet # Voids 1 2 - Labs CBC & Chem 7: 05/16/19 06:08 05/16/19 06:08 Labs: Abnormal Lab Results - Last 24 Hours (Table) 05/15/19 05/15/19 05/15/19 Range/Units 11:32 16:41 20:49 WBC (3.8-10.6) k/uL Plt Count (150-450) k/uL Neutrophils # (1.3-7.7) k/uL Lymphocytes # (1.0-4.8) k/uL PT (9.0-12.0) sec INR (<1.2) Sodium (137-145) mmol/L BUN (7-17) mg/dL Creatinine (0.52-1.04) mg/dL Glucose (74-99) mg/dL POC Glucose (mg/dL) 289 H 186 H 288 H (75-99) mg/dL AST (14-36) U/L ALT (9-52) U/L Total Protein (6.3-8.2) g/dL Albumin (3.5-5.0) g/dL 05/16/19 05/16/19 05/16/19 Range/Units 06:08 06:08 06:08 WBC 17.1 H (3.8-10.6) k/uL Plt Count 116 L (150-450) k/uL Neutrophils # 16.1 H (1.3-7.7) k/uL Lymphocytes # 0.7 L (1.0-4.8) k/uL PT 33.6 H (9.0-12.0) sec INR 3.5 H (<1.2) Sodium 135 L (137-145) mmol/L BUN 34 H (7-17) mg/dL Creatinine 1.38 H (0.52-1.04) mg/dL Glucose 180 H (74-99) mg/dL POC Glucose (mg/dL) (75-99) mg/dL AST 41 H (14-36) U/L ALT 337 H (9-52) U/L Total Protein 5.4 L (6.3-8.2) g/dL Albumin 3.3 L (3.5-5.0) g/dL 05/16/19 Range/Units 06:19 WBC (3.8-10.6) k/uL Plt Count (150-450) k/uL Neutrophils # (1.3-7.7) k/uL Lymphocytes # (1.0-4.8) k/uL PT (9.0-12.0) sec INR (<1.2) Sodium (137-145) mmol/L BUN (7-17) mg/dL Creatinine (0.52-1.04) mg/dL Glucose (74-99) mg/dL POC Glucose (mg/dL) 189 H (75-99) mg/dL AST (14-36) U/L ALT (9-52) U/L Total Protein (6.3-8.2) g/dL Albumin (3.5-5.0) g/dL Assessment and Plan Assessment: Neurology services to be consulted for possible MS exacerbation
--- NOTE | 2019-05-13 10:48 | US ---
EXAMINATION TYPE: US kidneys/renal and bladder DATE OF EXAM: 05/13/2019 COMPARISON: Abdominal ultrasound dated 09/06/2018 CLINICAL HISTORY: ANGELES. no symptoms EXAM MEASUREMENTS: Right Kidney: 9.2 x 3.9 x 5.1 cm Left Kidney: 9.2 x 3.9 x 4.3 cm bowel gas limited views of left renal, even after rolling patient Right Kidney: No hydronephrosis or masses seen Left Kidney: No hydronephrosis or masses seen Bladder: wnl There is no evidence for hydronephrosis at this point in time. No nephrolithiasis is seen. No mickey s are identified. The urinary bladder is anechoic. Bilateral ureteral jets are seen. IMPRESSION: Slight limited evaluation of the left kidney due to overlying bowel gas. No gross evidenc e of hydronephrosis nor nephrolithiasis. No sonographic sequela of chronic medical renal disease.
--- NOTE | 2019-05-13 11:58 | P.PN ---
Subjective Progress Note Date: 05/13/19 This is a pleasant 63-year-old past medical history significant for CVA with right-sided weakness and expressive aphasia, PE on long-term anticoagulation, sleep apnea and dyslipidemia. She presented with chest pain. She follows in the office with Dr. Dowling. Cardiology was initially consulted to see the patient because of chest pain. Chest pain was very atypical in nature, no significant EKG changes, and troponins were negative. On examination this morning, she denied any further chest discomfort.. Hemodynamically stable. Blood pressure 110/50 with a heart rate in the 50s.. White blood cell count 6.5, hemoglobin 15.6, platelet count 102. Sodium 141, potassium 3.6, BUN 31 and creatinine 1.0.. Total bilirubin 1.6, AST 345, ALT 307, alk phos 143. Objective - Vital Signs Vital signs: Vital Signs Temp 96.5 F L 05/13/19 08:00 Pulse 53 L 05/13/19 08:00 Resp 16 05/13/19 11:49 BP 110/55 05/13/19 08:00 Pulse Ox 94 L 05/13/19 08:00 Intake & Output 05/12/19 05/13/19 05/13/19 18:59 06:59 18:59 Intake Total 972 400 120 Output Total 300 Balance 972 100 120 Weight 89.5 kg Intake: Oral 972 400 120 Output: Urine 300 Other: Voiding Method Toilet Toilet # Voids 1 1 - Exam CONSTITUTIONAL: No apparent distress. HEENT: Head is normocephalic. Pupils are equal, round. Sclerae anicteric. Mucous membranes of the mouth are moist. No JVD. No carotid bruit. CHEST EXAMINATION: Lungs are clear to auscultation. No chest wall tenderness is noted on palpation or with deep breathing. HEART EXAMINATION: Regular rate and rhythm. S1, S2 heard. No murmurs, gallops or rub. ABDOMEN: Soft, nontender. Positive bowel sounds. EXTREMITIES: 2+ peripheral pulses, no lower extremity edema and no calf tenderness. NEUROLOGIC EXAMINATION: Patient is awake, alert and oriented x3. Right-sided weakness. - Labs CBC & Chem 7: 05/13/19 05:28 05/13/19 05:28 Labs: Abnormal Lab Results - Last 24 Hours (Table) 1105/13/19 05/13/19 Range/Units 05:28 05:28 05:28 Plt Count 102 L (150-450) k/uL Lymphocytes # 0.5 L (1.0-4.8) k/uL PT 13.3 H (9.0-12.0) sec INR 1.3 H (<1.2) Carbon Dioxide 35 H (22-30) mmol/L BUN 31 H (7-17) mg/dL Creatinine 1.07 H (0.52-1.04) mg/dL Glucose 130 H (74-99) mg/dL POC Glucose (mg/dL) (75-99) mg/dL Total Bilirubin 1.6 H (0.2-1.3) mg/dL AST 345 H (14-36) U/L ALT 307 H (9-52) U/L Alkaline Phosphatase 143 H (38-126) U/L Total Protein 6.0 L (6.3-8.2) g/dL 05/13/19 Range/Units 07:00 Plt Count (150-450) k/uL Lymphocytes # (1.0-4.8) k/uL PT (9.0-12.0) sec INR (<1.2) Carbon Dioxide (22-30) mmol/L BUN (7-17) mg/dL Creatinine (0.52-1.04) mg/dL Glucose (74-99) mg/dL POC Glucose (mg/dL) 140 H (75-99) mg/dL Total Bilirubin (0.2-1.3) mg/dL AST (14-36) U/L ALT (9-52) U/L Alkaline Phosphatase (38-126) U/L Total Protein (6.3-8.2) g/dL Assessment and Plan Plan: ASSESSMENT and plan #1Chest pain, pleuritic and reproducible. Atypical for angina. An acute coronary event has been ruled out #2History of PE on long-term anticoagulation, INR subtherapeutic at 1.3 #3Obstructive sleep apnea, sinus bradycardia while sleeping #4History of CVA with right-sided weakness and expressive aphasia #5Dyslipidemia #6Obesity, BMI 34 #7 multiple sclerosis #8 abnormal liver enzymes Plan From cardiology's perspective, no further workup is needed at this time. The patient's liver enzymes did rise significantly this morning, she did have a bladder ultrasound we would recommend that she have an ultrasound of the liver and gallbladder. DNP note has been reviewed, I agree with a documented findings and plan of care. Patient was seen and examined.
--- NOTE | 2019-05-13 14:03 | US ---
EXAMINATION TYPE: US gallbladder DATE OF EXAM: 05/13/2019 COMPARISON: CT abdomen pelvis dated 05/22/2018 CLINICAL HISTORY: elevated liver enz. Abnormal labs, GB removed EXAM MEASUREMENTS: Liver Length: 16.9 cm Right Kidney: 9.6 x 4.0 x 4.6 cm Limited visualization due to overlying bowel gas Pancreas: Largely obscured. Main pancreatic duct -1.55 mm Liver: No focal masses or lesions seen, scanned through ribs . Diffusely heterogenous hepatic echote xture, most commonly related to hepatic steatosis. This limits evaluation for hepatic masses. No foca l hepatic masses appreciated on today's exam however the liver is limited in evaluation. Gallbladder: Surgically absent Evidence for sonographic Johnson's sign: neg CBD: Obscured by overlying bowel gas Right Kidney: No hydronephrosis or masses seen IMPRESSION: Limited exam with suboptimal visualization of the abdominal structures. The liver does demonstrate he terogenous hepatic echotexture most commonly related to hepatic steatosis. There is obscuration of th e pancreas, common bile duct, and portions of the liver.
--- NOTE | 2019-05-13 16:21 | P.CNNES ---
History of Present Illness Consult date: 05/13/19 Requesting physician: Elin Morel Reason for Consult: Possible MS exacerbation History of Present Illness: Patient is a 63-year-old female who has history of CVA, with expressive aphasia, also has possible history of MS, came to the hospital because of chest pain. Patient denies any new focal neurological symptoms. EKG showed atrial flutter with 4-1 AV conduction. chest x-ray concerning for small bilateral effusion. Cardiology has been consulted. Neurology was consulted for her history of possible MS. Patient states that she does not know if she has MS. Patient at present is taking Tecfidera 240 mg bid for MS. I reviewed her previous MRI, and shows no evidence of MS. Patient follows up with Dr. Elizabeth. Patient has sporadic MS exacerbations for which she was hospitalized for high-dose Solu- Medrol. Her last hospitalization was in April 2018. Patient's history of stroke with expressive aphasia occurred about 10 years ago. Patient's came in the room later on, who states that patient has seen her neurologist recently, and felt she may be having some MS exacerbation with weakness in the legs. Patient was started on prednisone 50 mg daily for 7 days and then decrease to 30 mg for 7 days and then slowly taper off. Patient has completed 5 days of prednisone, but then she started having chest pain and therefore patient was admitted to the hospital. Patient's last MRI of the brain from 04/28/2018 showed no acute process. Evidence of left MCA infarct. Mild diffuse meningeal enhancement. Her MRI of the cervical spine from 09/18/2017 showed vague areas of increased signal within the cervical spinal cord at to C2 3 and C3 4. Demyelination difficult to exclude. Borderline to mild central stenosis at multiple levels. MRI of the lumbar spine from 09/01/2017 showed no spinal stenosis. Her last A1c is 6.2, B12 333, folate 1029 which is normal. TSH 4.8 mildly elevated on 09/10/2018. Review of Systems Denies headache, diplopia, loss of hearing. Denies numbness tingling or any new weakness. ROS unobtainable: due to mental status Past Medical History Past Medical History: Chest Pain / Angina, CVA/TIA, Fibromyalgia, Musculoskeletal Disorder, Neurologic Disorder, Osteoarthritis (OA), Pulmonary Embolus (PE), Sleep Apnea/CPAP/BIPAP, Thyroid Disorder Additional Past Medical History / Comment(s): MULTIPLE SCLEROSIS, 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 PAINFUL FOR HER TO LIE FLAT. HX OF NOSEBLEED JUL 2014 AND RECEIVED PLASMA TRANSFUSION. takes pills with applesauce. History of Any Multi-Drug Resistant Organisms: VRE Date of last positivie culture/infection: 10/24/09 confirmed with infectious disease nurse on 08/18/16. MDRO Source:: URINE Past Surgical History: Ablation, Appendectomy, Cholecystectomy, Hernia Repair, Hysterectomy Additional Past Surgical History / Comment(s): Incisional hernia repair, laparoscopic lysis of adhesions in 1987, ganglion cyst removal of the left wrist, patent foramen ovale patch in 2006, RF ablation for back pain. Past Anesthesia/Blood Transfusion Reactions: No Reported Reaction Additional Psychological History / Comment(s): CELEXA to help sleep at night per . PT HAS DIFFICULTY W/SPEECH . HAS TO LOOK AT DIETARY MENU TO ORDER CAN'T DO IT BY PHONE. Pt resides with her spouse. She uses a cane to ambulate. She also has a walker.cpap machine Spouse drives her to appointments. Spouse assists her with some ADLs when needed. Smoking Status: Never smoker Past Alcohol Use History: None Reported Past Drug Use History: None Reported Additional Drug Use History / Comment(s): Lives at home with her requires some assistance with ADLs at times - Past Family History Mother Family Medical History: Hypertension Additional Family Medical History / Comment(s): osteoporosis Father Family Medical History: Dementia, Diabetes Mellitus Medications and Allergies Home Medications Medication Instructions Recorded Confirmed Type Aspirin 81 mg PO DAILY@0900 11/08/13 05/11/19 History Baclofen [Lioresal] 10 mg PO DAILY@169911/08/13 05/11/19 History Citalopram Hydrobromide [CeleXA] 40 mg PO HS@2100 11/08/13 05/11/19 History Ferrous Sulfate [Feosol] 325 mg PO DAILY@169911/08/13 05/11/19 History Furosemide [Lasix] 40 mg PO BID@0900,0 11/08/13 05/11/19 History Montelukast [Singulair] 10 mg PO DAILY@1700 11/08/13 05/11/19 History Nitroglycerin Sl Tabs [Nitrostat] 0.4 mg SUBLINGUAL Q5M PRN 11/08/13 05/11/19 History Pantoprazole Sodium [Protonix] 40 mg PO DAILY@0600 11/08/13 05/11/19 History Potassium Chloride 20 meq PO BID@0900,1700 11/08/13 05/11/19 History Cholecalciferol [Vitamin D3 (25 2,000 unit PO DAILY@0900 11/18/15 05/11/19 History Mcg = 1000 Iu)] Fluticasone Nasal [place] [Flonase 1 spray EA NOSTRIL BID@0900,2100 11/18/15 05/11/19 History Nasal [place]] Methylphenidate HCl [Ritalin] 20 mg PO BID@0900,1200 11/18/15 05/11/19 History Pravastatin Sodium [Pravachol] 20 mg PO HS@2100 11/18/15 05/11/19 History fentaNYL [Fentanyl] 25 mcg TRANSDERM Q72H 11/18/15 05/11/19 History Pregabalin [Lyrica] 100 mg PO TID@0900,1700,2100 07/13/16 05/11/19 History Folic Acid 0.4 mg PO DAILY@0900 08/18/16 05/11/19 History Dimethyl Fumarate [Tecfidera] 240 mg PO BID 04/04/18 05/11/19 History Fexofenadine HCl 180 mg PO DAILY 05/11/19 05/11/19 History HYDROcodone/APAP 5-325MG [Cran[place] 1 tab PO Q6HR PRN 05/11/19 05/11/19 History 5-325] Levothyroxine Sodium [Levoxyl] 75 mcg PO DAILY@0900 05/11/19 05/11/19 History Warfarin [Coumadin] 7.5 mg PO MOTUTHFR 05/11/19 05/11/19 History Warfarin [Coumadin] 10 mg PO SUWE 05/11/19 05/11/19 History Allergies Allergy/AdvReac Type Severity Reaction Status Date / Time adhesive Allergy SKIN Verified 05/11/19 14:25 PEELING Physical Examination - Vital Signs Vital Signs: Vital Signs Temp Pulse Resp BP Pulse Ox 05/13/19 12:00 59 L 16 107/59 91 L 05/13/19 11:49 16 05/13/19 08:00 96.5 F L 53 L 16 110/55 94 L 05/13/19 04:00 97.6 F 50 L 14 117/60 94 L 05/13/19 00:00 97.7 F 51 L 16 118/60 95 05/12/19 20:00 97.9 F 56 L 16 130/65 96 Intake and Output 05/13/19 05/13/19 05/13/19 06:59 14:59 22:59 Intake Total 400 120 Balance 400 120 Intake: Oral 400 120 Other: Voiding Method Toilet Toilet # Voids 1 Weight 89.5 kg On examination patient is an elderly female, very pleasant in no distress. She is alert and awake. Patient has expressive aphasia, sometimes she is fluent, but has difficulty with expressing sometimes. Patient could not tell the name of the city or the state she lives in, or current month or year. Patient does use phrases like "I have so many things, I have no idea". Her comprehension is intact, and follows commands very well as below. Her pupils are round and reactive to light, visual lazar are full on confrontation, extraocular muscles are intact. Face is symmetric although has very subtle right-sided asymmetry. Tongue protrudes the midline. Palatal elevation and sensation normal. Muscle strength testing there is no pronator drift and the strength is normal in arms and legs distally and proximally. Reflexes are brisk and plantars are withdrawal bilaterally. Sensory touch is equal with no neglect. No ataxia for [id number] testing. Tone and bulk of muscles normal. Gait deferred. Results Patient's BUN was 43 on arrival, has improved to 31. Creatinine was 1.20, and now 1.07. Her AST is 345 and ALT 307 on 05/13/2019. - Laboratory Findings CBC and BMP: 05/13/19 05:28 05/13/19 05:28 Abnormal Lab Findings: Abnormal Labs 05/11/19 05/11/19 05/11/19 13:10 13:10 13:10 Plt Count 100 L Lymphocytes # 0.3 L PT 20.2 H INR 2.1 H Carbon Dioxide 33 H BUN 43 H Creatinine 1.20 H Glucose 180 H POC Glucose (mg/dL) Total Bilirubin AST ALT Alkaline Phosphatase Total Protein 05/12/19 05/13/19 05/13/19 05:51 05:28 05:28 Plt Count 102 L Lymphocytes # 0.5 L PT 15.1 H 13.3 H INR 1.5 H 1.3 H Carbon Dioxide BUN Creatinine Glucose POC Glucose (mg/dL) Total Bilirubin AST ALT Alkaline Phosphatase Total Protein 05/13/19 05/13/19 05:28 07:00 Plt Count Lymphocytes # PT INR Carbon Dioxide 35 H BUN 31 H Creatinine 1.07 H Glucose 130 H POC Glucose (mg/dL) 140 H Total Bilirubin 1.6 H AST 345 H ALT 307 H Alkaline Phosphatase 143 H Total Protein 6.0 L Assessment and Plan Assessment: * 63-year-old female with history of left MCA territory stroke, with residual expressive aphasia, also reportedly has been diagnosed with relapsing remitting multiple sclerosis. Patient has recent possible MS exacerbation for which she is on high-dose tapering dose of oral prednisone. * Chest pain. * Elevated liver enzymes. Plan: * Neurologically patient is stable. No signs of CVA or definitive MS exacerbation. * Patient however has been currently treated with prednisone 50 mg daily for 5 days for possible MS exacerbation, through her outside neurologist. Patient will complete the course of prednisone as per her neurologist recommendation. * Patient to follow up with her neurologist as outpatient. * Neurologically clear for discharge.
[2019-05-13] MEDS: FERROUS SULFATE 325 MG TAB PO SCH (16:53)
[2019-05-13] MEDS: MONTELUKAST 10 MG TAB PO SCH (16:53)
[2019-05-13] MEDS: BACLOFEN 10 MG TAB PO SCH (16:53)
[2019-05-13 17:42] LABS: Glucose,Whole Blood 152 mg/dL (75-99)
[2019-05-13] MEDS ORDERED: WARFARIN 10 MG TAB PO ONE (18:00)
[2019-05-13] MEDS ORDERED: WARFARIN 7.5 MG TAB PO SCH (18:00)
[2019-05-13] MEDS: CITALOPRAM HYDROBROMIDE 20 MG TAB PO SCH (21:34)
[2019-05-13] MEDS: PRAVASTATIN SODIUM 20 MG TAB PO SCH (21:34)
[2019-05-14 02:57] LABS: Magnesium 2.5 mg/dL (1.6-2.3); Potassium 4.2 mmol/L (3.5-5.1)
[2019-05-14] MEDS: PANTOPRAZOLE 40 MG TABLET PO SCH (05:51)
[2019-05-14] MEDS: LEVOTHYROXINE 75 MCG TAB PO SCH (05:51)
[2019-05-14 06:20] LABS: Basophils % (A) 0 %; Eosinophils # (A) 0.1 k/uL (0-0.7); Eosinophils % (A) 1 %; HGB 15.4 gm/dL (11.4-16.0); Lymphocytes # (A) 0.8 k/uL (1.0-4.8); Lymphocytes % (A) 12 %; MCH 31.1 pg (25.0-35.0); MCHC 34.2 g/dL (31.0-37.0); MCV 91.1 fL (80.0-100.0); Mean Platelet Volume 9.1; Monocytes # (A) 0.4 k/uL (0-1.0); Monocytes % (A) 6 %; Neutrophils # (A) 5.3 k/uL (1.3-7.7); Neutrophils % (A) 79 %; Platelet Count 108 k/uL (150-450); RBC 4.94 m/uL (3.80-5.40); RDW 13.4 % (11.5-15.5); WBC 6.7 k/uL (3.8-10.6)
[2019-05-14 06:28] LABS: INR 1.7 (<1.2); Prothrombin Time 17.3 sec (9.0-12.0)
[2019-05-14 06:42] LABS: Albumin 3.6 g/dL (3.5-5.0); Calcium 9.1 mg/dL (8.4-10.2); Potassium 3.8 mmol/L (3.5-5.1); Total Bilirubin 1.5 mg/dL (0.2-1.3); Total Protein 5.9 g/dL (6.3-8.2)
[2019-05-14] MEDS: PREGABALIN 100 MG CAP PO SCH ×3 (08:19→21:11)
[2019-05-14] MEDS: FOLIC ACID 1 MG TAB PO SCH (08:19)
[2019-05-14] MEDS: METHYLPHENIDATE HCL 10 MG TAB PO SCH ×2 (08:19→12:05)
[2019-05-14] MEDS: FLUTICASONE 50MCG/SPRAY NASAL 16GM EA NOSTRIL SCH ×2 (08:19→22:08)
[2019-05-14] MEDS: FUROSEMIDE 40 MG TAB PO SCH ×2 (08:20→16:34)
[2019-05-14] MEDS: ASPIRIN 81 MG PO SCH (08:20)
[2019-05-14] MEDS: POTASSIUM CHLORIDE ER 20 MEQ TAB.ER PO SCH ×2 (08:20→16:37)
[2019-05-14] MEDS: CHOLECALCIFEROL 1,000 UNIT TAB PO SCH (08:20)
[2019-05-14] MEDS: LORATADINE 10 MG TAB PO SCH (08:21)
[2019-05-14] MEDS: NON FORMULARY DRUG (Dimethyl Fumarate [Tecfidera] 240 MG) PO SCH ×2 (08:21→21:12)
[2019-05-14] MEDS: ENOXAPARIN 80 MG/0.8 ML SYRINGE SQ SCH ×2 (08:21→21:12)
--- NOTE | 2019-05-14 09:47 | P.PN ---
<Elin Morel P - Last Filed: 05/14/19 09:41> Subjective Progress Note Date: 05/14/19 Huong Cooper, is a 63-year-old female well known to my practice who presented to [facility] emergency room with a chief complaint of chest pain patient describes a pressure sensation in the lower part of her chest she is holding her chest with her hands, she states that her pain is better now as compared to the time she came to emergency room. Patient has expressive aphasia due to previous stroke and is difficult to understand but she is clearly complaining of chest pain. She has been seen by cardiology in the past her last stress test was in October 2018 which was reported as negative. Patient has a known history of stroke in the past with right sided weakness, she also has a known history of pulmonary embolism and is maintained on anticoagulation, she also has a known history of multiple sclerosis. On 05/13/2019 patient is alert and oriented 3. Patient is still having some chest discomfort. Patient was evaluated by cardiology services, per cardiology and acute coronary event has been ruled out. Ultrasound of abdomen and bladder and pelvis ordered. Coumadin remains subtherapeutic. Currently being bridged with Lovenox. Patient denies nausea vomiting or diarrhea. Patient denies shortness breath. Patient denies any urinary burning or frequency On 05/14/2019 patient is currently resting comfortably in bed. Patient still having some discomfort but reports improved. Neurology service is consulted. GI service is consulted for elevated liver enzymes. This time patient denies chest pain or shortness of breath. Patient denies nausea vomiting or diarrhea. Patient denies any urinary burning and frequency. Objective - Vital Signs Vital signs: Vital Signs Temp 96.2 F L 05/14/19 08:00 Pulse 113 H 05/14/19 08:00 Resp 16 05/14/19 08:00 BP 102/65 05/14/19 08:00 Pulse Ox 98 05/14/19 08:00 Intake & Output 05/13/19 05/14/19 05/14/19 18:59 06:59 18:59 Intake Total 560 400 Output Total 300 150 Balance 260 250 Weight 89.2 kg Intake: Oral 560 400 Output: Urine 300 150 Other: Voiding Method Toilet Toilet Toilet # Voids 1 1 - Exam In general patient is alert responsive answering questions appropriately in no apparent distress HEENT head normocephalic and atraumatic there is right sided facial drooping wh ich is chronic Neck is supple no JVD no goiter no lymphadenopathy Chest exam reveals a few scattered crackles bilaterally no wheezing Cardiac exam reveals regular heart sounds S1 and S2 no gallops no murmurs Abdomen is soft nontender no organomegaly with normal bowel sounds Extremity exam reveals no edema no cyanosis or clubbing Neurological examination reveals right sided weakness, with sensitivity to touch on the right side of her body, symptoms are chronic - Labs CBC & Chem 7: 05/14/19 05:29 05/14/19 05:29 Labs: Abnormal Lab Results - Last 24 Hours (Table) 05/13/19 05/14/19 05/14/19 Range/Units 17:07 01:56 05:29 Plt Count (150-450) k/uL Lymphocytes # (1.0-4.8) k/uL PT 17.3 H (9.0-12.0) sec INR 1.7 H (<1.2) Carbon Dioxide (22-30) mmol/L BUN (7-17) mg/dL Creatinine (0.52-1.04) mg/dL Glucose (74-99) mg/dL POC Glucose (mg/dL) 152 H (75-99) mg/dL Magnesium 2.5 H (1.6-2.3) mg/dL Total Bilirubin (0.2-1.3) mg/dL AST (14-36) U/L ALT (9-52) U/L Alkaline Phosphatase (38-126) U/L Total Protein (6.3-8.2) g/dL 05/14/19 05/14/19 Range/Units 05:29 05:29 Plt Count 108 L (150-450) k/uL Lymphocytes # 0.8 L (1.0-4.8) k/uL PT (9.0-12.0) sec INR (<1.2) Carbon Dioxide 35 H (22-30) mmol/L BUN 25 H (7-17) mg/dL Creatinine 1.17 H (0.52-1.04) mg/dL Glucose 132 H (74-99) mg/dL POC Glucose (mg/dL) (75-99) mg/dL Magnesium (1.6-2.3) mg/dL Total Bilirubin 1.5 H (0.2-1.3) mg/dL AST 400 H (14-36) U/L ALT 811 H (9-52) U/L Alkaline Phosphatase 192 H (38-126) U/L Total Protein 5.9 L (6.3-8.2) g/dL Assessment and Plan Assessment: #1 episode of chest pain, serial EKGs and cardiac enzymes are ordered cardiology consultation requested. Per cardiology acute coronary event has been ruled out. Recent stress test in the office unremarkable. Pain is atypical for angina. #2 history of pulmonary embolism INR on presentation was 2.1 INR today is down to 1.5, will cover with subcu Lovenox until INR is back to therapeutic range. D-dimer on presentation less than 0.17 #3 underlying history of multiple sclerosis with worsening weakness in the lower extremities. Per neurology services no signs of CVA or definitive MS exacerbation. Patient to follow-up with outpatient neurology and high-dose prednisone treatment possible MS exacerbation. #4 acute renal insufficiency was elevated BUN at 43 elevated creatinine at 1.2 ultrasound of kidneys renal and bladder completed showing slight limited evaluation of the left kidney due to overlying bowel gas evidence of hydronephrosis or nephrolithiasis. No sonographic sequela of chronic medical renal disease. #5 previous history of stroke with residual right sided weakness #6 chronic pain patient is maintained on fentanyl and [place] #7 underlying history of obstructive sleep apnea patient is unable to tolerate CPAP machine #8. Elevated liver enzymes Tylenol on hold ultrasound ordered. GI service is consulted. Ultrasound of gallbladder completed showing limited exam with suboptimal visualization of the abdominal structures. The liver does demonstrate heterogenous hepatic echotexture most commonly related to hepatic steatosis. There is obscuration of the pancreas. Common bile duct and portions of the liver. DVT prophylaxis Coumadin and Lovenox with bridging. GI prophylaxis Protonix I performed an examination of the patient and discussed their management with the Nurse Practitioner. I have reviewed the Nurse Practitioner's notes and agree with the documented findings and plan of care <Sarah Paredes - Last Filed: 05/16/19 09:37> Objective - Vital Signs Vital signs: Vital Signs Temp 97.9 F 05/16/19 04:00 Pulse 53 L 05/16/19 04:00 Resp 16 05/16/19 04:00 BP 121/70 05/16/19 04:00 Pulse Ox 95 05/16/19 04:00 Intake & Output 05/15/19 05/16/19 05/16/19 18:59 06:59 18:59 Intake Total 1488 540 Balance 1488 540 Weight 94.5 kg Intake: Oral 1488 540 Other: Voiding Method Toilet Toilet # Voids 1 2 - Labs CBC & Chem 7: 05/16/19 06:08 05/16/19 06:08 Labs: Abnormal Lab Results - Last 24 Hours (Table) 05/15/19 05/15/19 05/15/19 Range/Units 11:32 16:41 20:49 WBC (3.8-10.6) k/uL Plt Count (150-450) k/uL Neutrophils # (1.3-7.7) k/uL Lymphocytes # (1.0-4.8) k/uL PT (9.0-12.0) sec INR (<1.2) Sodium (137-145) mmol/L BUN (7-17) mg/dL Creatinine (0.52-1.04) mg/dL Glucose (74-99) mg/dL POC Glucose (mg/dL) 289 H 186 H 288 H (75-99) mg/dL AST (14-36) U/L ALT (9-52) U/L Total Protein (6.3-8.2) g/dL Albumin (3.5-5.0) g/dL 05/16/19 05/16/19 05/16/19 Range/Units 06:08 06:08 06:08 WBC 17.1 H (3.8-10.6) k/uL Plt Count 116 L (150-450) k/uL Neutrophils # 16.1 H (1.3-7.7) k/uL Lymphocytes # 0.7 L (1.0-4.8) k/uL PT 33.6 H (9.0-12.0) sec INR 3.5 H (<1.2) Sodium 135 L (137-145) mmol/L BUN 34 H (7-17) mg/dL Creatinine 1.38 H (0.52-1.04) mg/dL Glucose 180 H (74-99) mg/dL POC Glucose (mg/dL) (75-99) mg/dL AST 41 H (14-36) U/L ALT 337 H (9-52) U/L Total Protein 5.4 L (6.3-8.2) g/dL Albumin 3.3 L (3.5-5.0) g/dL 05/16/19 Range/Units 06:19 WBC (3.8-10.6) k/uL Plt Count (150-450) k/uL Neutrophils # (1.3-7.7) k/uL Lymphocytes # (1.0-4.8) k/uL PT (9.0-12.0) sec INR (<1.2) Sodium (137-145) mmol/L BUN (7-17) mg/dL Creatinine (0.52-1.04) mg/dL Glucose (74-99) mg/dL POC Glucose (mg/dL) 189 H (75-99) mg/dL AST (14-36) U/L ALT (9-52) U/L Total Protein (6.3-8.2) g/dL Albumin (3.5-5.0) g/dL Assessment and Plan Assessment: Patient's presentation of weakness similar to prior episodes of MS exacerbation. Will discuss with neurology services
--- NOTE | 2019-05-14 12:13 | P.PN ---
Subjective Progress Note Date: 05/14/19 Patient offers no new complaints. Continues to be expressively aphasic. No new symptoms. Objective - Vital Signs Vital signs: Vital Signs Temp 96.2 F L 05/14/19 08:00 Pulse 61 05/14/19 12:00 Resp 16 05/14/19 12:00 BP 118/65 05/14/19 12:00 Pulse Ox 94 L 05/14/19 12:00 Intake & Output 05/13/19 05/14/19 05/14/19 18:59 06:59 18:59 Intake Total 560 400 Output Total 300 150 150 Balance 260 250 -150 Weight 89.2 kg Intake: Oral 560 400 Output: Urine 300 150 150 Other: Voiding Method Toilet Toilet Toilet # Voids 1 1 1 - Exam Patient's mental status is stable. Patient has expressive aphasia, which is chronic since her stroke. Rest of the examination is relatively nonfocal. She does have brisk reflexes. - Labs CBC & Chem 7: 05/14/19 05:29 05/14/19 05:29 Labs: Abnormal Lab Results - Last 24 Hours (Table) 05/13/19 05/14/19 05/14/19 Range/Units 17:07 01:56 05:29 Plt Count (150-450) k/uL Lymphocytes # (1.0-4.8) k/uL PT 17.3 H (9.0-12.0) sec INR 1.7 H (<1.2) Carbon Dioxide (22-30) mmol/L BUN (7-17) mg/dL Creatinine (0.52-1.04) mg/dL Glucose (74-99) mg/dL POC Glucose (mg/dL) 152 H (75-99) mg/dL Magnesium 2.5 H (1.6-2.3) mg/dL Total Bilirubin (0.2-1.3) mg/dL AST (14-36) U/L ALT (9-52) U/L Alkaline Phosphatase (38-126) U/L Total Protein (6.3-8.2) g/dL 05/14/19 05/14/19 Range/Units 05:29 05:29 Plt Count 108 L (150-450) k/uL Lymphocytes # 0.8 L (1.0-4.8) k/uL PT (9.0-12.0) sec INR (<1.2) Carbon Dioxide 35 H (22-30) mmol/L BUN 25 H (7-17) mg/dL Creatinine 1.17 H (0.52-1.04) mg/dL Glucose 132 H (74-99) mg/dL POC Glucose (mg/dL) (75-99) mg/dL Magnesium (1.6-2.3) mg/dL Total Bilirubin 1.5 H (0.2-1.3) mg/dL AST 400 H (14-36) U/L ALT 811 H (9-52) U/L Alkaline Phosphatase 192 H (38-126) U/L Total Protein 5.9 L (6.3-8.2) g/dL Assessment and Plan Assessment: * 63-year-old female with history of left MCA territory stroke, with residual expressive aphasia, also reportedly has been diagnosed with relapsing remitting multiple sclerosis. Patient has recent possible MS exacerbation for which she is on high-dose tapering dose of oral prednisone. * Chest pain. * Elevated liver enzymes. Plan: * Neurologically patient is stable. No signs of CVA or definitive MS exacerbation. * Patient however has been currently treated with prednisone 50 mg daily for 5 days for possible MS exacerbation, through her outside neurologist. Patient will complete the course of prednisone as per her neurologist recommendation. * Patient to follow up with her neurologist as outpatient. * Neurologically clear for discharge.
--- NOTE | 2019-05-14 12:16 | P.PN ---
Subjective Progress Note Date: 05/14/19 This is a pleasant 63-year-old past medical history significant for CVA with right-sided weakness and expressive aphasia, PE on long-term anticoagulation, sleep apnea and dyslipidemia. She presented with chest pain. She follows in the office with Dr. Dowling. Cardiology was initially consulted to see the patient because of chest pain. Chest pain was very atypical in nature, no significant EKG changes, and troponins were negative. On examination this morning, she denied any further chest discomfort.. Hemodynamically stable. Blood pressure 110/50 with a heart rate in the 50s.. White blood cell count 6.5, hemoglobin 15.6, platelet count 102. Sodium 141, potassium 3.6, BUN 31 and creatinine 1.0.. Total bilirubin 1.6, AST 345, ALT 307, alk phos 143. 05/14/2019 Patient was seen and examined this morning, hemodynamically stable. Blood pressure 118/60 with a heart rate in the 60s, 94% on room air. White blood cell count 6.7, hemoglobin 15.4, platelet count 108. INR today is 1.7 sodium 139, potassium 3.8, BUN 25 and creatinine 1.1. Total bilirubin 1.5, AST 400, ALT 811, alk phos 192, total protein 5.9, ultrasound of the gallbladder was performed yesterday which was a limited exam was suboptimal visualization of the abdominal structures. The liver does demonstrate heterogeneous hepatic echotexture most commonly related to hepatic steatosis. There is obscuration of the pancreas, common bile duct, and portions of the liver. GI services have been consulted for abnormal liver functions. Objective - Vital Signs Vital signs: Vital Signs Temp 96.2 F L 05/14/19 08:00 Pulse 61 05/14/19 12:00 Resp 16 05/14/19 12:00 BP 118/65 05/14/19 12:00 Pulse Ox 94 L 05/14/19 12:00 Intake & Output 05/13/19 05/14/19 05/14/19 18:59 06:59 18:59 Intake Total 560 400 Output Total 300 150 150 Balance 260 250 -150 Weight 89.2 kg Intake: Oral 560 400 Output: Urine 300 150 150 Other: Voiding Method Toilet Toilet Toilet # Voids 1 1 1 - Exam CONSTITUTIONAL: No apparent distress. HEENT: Head is normocephalic. Pupils are equal, round. Sclerae anicteric. Mucous membranes of the mouth are moist. No JVD. No carotid bruit. CHEST EXAMINATION: Lungs are clear to auscultation. No chest wall tenderness is noted on palpation or with deep breathing. HEART EXAMINATION: Regular rate and rhythm. S1, S2 heard. No murmurs, gallops or rub. ABDOMEN: Soft, nontender. Positive bowel sounds. EXTREMITIES: 2+ peripheral pulses, no lower extremity edema and no calf tenderness. NEUROLOGIC EXAMINATION: Patient is awake, alert and oriented x3. Right-sided weakness. - Labs CBC & Chem 7: 05/14/19 05:29 05/14/19 05:29 Labs: Abnormal Lab Results - Last 24 Hours (Table) 05/13/19 05/14/19 05/14/19 Range/Units 17:07 01:56 05:29 Plt Count (150-450) k/uL Lymphocytes # (1.0-4.8) k/uL PT 17.3 H (9.0-12.0) sec INR 1.7 H (<1.2) Carbon Dioxide (22-30) mmol/L BUN (7-17) mg/dL Creatinine (0.52-1.04) mg/dL Glucose (74-99) mg/dL POC Glucose (mg/dL) 152 H (75-99) mg/dL Magnesium 2.5 H (1.6-2.3) mg/dL Total Bilirubin (0.2-1.3) mg/dL AST (14-36) U/L ALT (9-52) U/L Alkaline Phosphatase (38-126) U/L Total Protein (6.3-8.2) g/dL 05/14/19 05/14/19 Range/Units 05:29 05:29 Plt Count 108 L (150-450) k/uL Lymphocytes # 0.8 L (1.0-4.8) k/uL PT (9.0-12.0) sec INR (<1.2) Carbon Dioxide 35 H (22-30) mmol/L BUN 25 H (7-17) mg/dL Creatinine 1.17 H (0.52-1.04) mg/dL Glucose 132 H (74-99) mg/dL POC Glucose (mg/dL) (75-99) mg/dL Magnesium (1.6-2.3) mg/dL Total Bilirubin 1.5 H (0.2-1.3) mg/dL AST 400 H (14-36) U/L ALT 811 H (9-52) U/L Alkaline Phosphatase 192 H (38-126) U/L Total Protein 5.9 L (6.3-8.2) g/dL Assessment and Plan Plan: ASSESSMENT and plan #1Chest pain, pleuritic and reproducible. Atypical for angina. An acute coronary event has been ruled out #2History of PE on long-term anticoagulation, INR subtherapeutic at 1.3 #3Obstructive sleep apnea, sinus bradycardia while sleeping #4History of CVA with right-sided weakness and expressive aphasia #5Dyslipidemia #6Obesity, BMI 34 #7 multiple sclerosis #8 abnormal liver enzymes Plan From cardiology's perspective, no further workup is needed at this time. We jason l follow this patient along with you now on an as-needed basis only, please don't hesitate to call with any questions. DNP note has been reviewed, I agree with a documented findings and plan of care. Patient was seen and examined.
[2019-05-14] MEDS: BACLOFEN 10 MG TAB PO SCH (16:34)
[2019-05-14] MEDS: FERROUS SULFATE 325 MG TAB PO SCH (16:34)
[2019-05-14] MEDS: MONTELUKAST 10 MG TAB PO SCH (16:37)
[2019-05-14] MEDS ORDERED: WARFARIN 10 MG TAB PO ONE (18:00)
[2019-05-14] MEDS ORDERED: WARFARIN 7.5 MG TAB PO SCH (18:00)
[2019-05-14 20:13] LABS: Glucose,Whole Blood 331 mg/dL (75-99)
[2019-05-14 20:35] LABS: Hepatitis A Antibody IgM Non-Reactive (Non-Reactive); Hepatitis B Core IgM Non-Reactive (Non-Reactive); Hepatitis B Surface Antigen Non-Reactive (Non-Reactive); Hepatitis C IgG Antibody Non-Reactive (Non-Reactive)
[2019-05-14] MEDS: PRAVASTATIN SODIUM 20 MG TAB PO SCH (21:11)
[2019-05-14] MEDS: CITALOPRAM HYDROBROMIDE 20 MG TAB PO SCH (21:11)
[2019-05-14] MEDS: INSULIN ASPART (NovoLOG) 100 UNIT/ML VIAL SQ SCH (21:12)
--- NOTE | 2019-05-14 21:57 | P.CONS ---
History of Present Illness - Reason for Consult Consult date: 05/13/19 Elevated liver enzymes Requesting physician: Sarah Paredes - Chief Complaint Chest pain - History of Present Illness 63-year-old female with multiple medical comorbidities including multiple sclerosis prior pulmonary embolism on anticoagulation therapy, prior CVA with residual right-sided weakness as well as fibromyalgia who presented to the hospital due to complaints of chest pain. At that time the patient had reported pressure-like sensation in her chest. The patient has been seen by the cardiology service with acute coronary syndrome ruled out. Currently she is also being evaluated by the neurology service and treated for a possible exacerbation of her multiple sclerosis. Liver enzymes were found admission subsequently trended into the abnormal range with total bilirubin 1.6 from 1.1 previously, alkaline phosphatase 143 from 94 previously, AST 345 from 36 previously and ALTs 370 from 41 previously. On questioning the patient denies any prior history of viral hepatitis or other underlying/intrinsic liver disease. She denies any tattoos or prior blood transfusions. She denies any jaundice or [employer] colored urine. No history of encephalopathy reported. Patient and her that I any signs or symptoms of GI bleeding. Bowel movements are reported as daily and regular. Review of Systems REVIEW OF SYSTEMS: CONSTITUTIONAL: Denies any fevers, chills, weight change. CARDIOVASCULAR: Denies any palpitations high or low blood pressures, but does report chest pain on presentation. RESPIRATORY: Denies any shortness of breath, hemoptysis or cough. GENITOURINARY: No dysuria or hematuria. MUSCULOSKELETAL: Residual right-sided weakness from prior CVA. SKIN: Denies any new rashes or lesions, jaundice or pallor. PSYCHIATRIC: Denies any depression or anxiety. NEUROLOGY: Denies headache, denies any new focal deficits, but residual right- sided weakness from CVA as well as expressive been resuscitated aphasia. EARS/NOSE/THROAT: No recent hearing change, congestion, nasal discharge or sore throat. EYES: No pain in eyes, discharge or change in vision. GASTROINTESTINAL: As per HPI. Past Medical History Past Medical History: Chest Pain / Angina, CVA/TIA, Fibromyalgia, Musculoskeletal Disorder, Neurologic Disorder, Osteoarthritis (OA), Pulmonary Embolus (PE), Sleep Apnea/CPAP/BIPAP, Thyroid Disorder Additional Past Medical History / Comment(s): MULTIPLE SCLEROSIS, 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 PAINFUL FOR HER TO LIE FLAT. HX OF NOSEBLEED JUL 2014 AND RECEIVED PLASMA TRANSFUSION. takes pills with applesauce. History of Any Multi-Drug Resistant Organisms: JACKYE Year Discovered:: 10/24/09 confirmed with infectious disease nurse on 08/18/16. MDRO Source:: URINE Past Surgical History: Ablation, Appendectomy, Cholecystectomy, Hernia Repair, Hysterectomy Additional Past Surgical History / Comment(s): Incisional hernia repair, laparoscopic lysis of adhesions in 1987, ganglion cyst removal of the left wrist, patent foramen ovale patch in 2006, RF ablation for back pain. Past Anesthesia/Blood Transfusion Reactions: No Reported Reaction Additional Psychological History / Comment(s): CELEXA to help sleep at night per . PT HAS DIFFICULTY W/SPEECH . HAS TO LOOK AT DIETARY MENU TO ORDER CAN'T DO IT BY PHONE. Pt resides with her spouse. She uses a cane to ambulate. She also has a walker.cpap machine Spouse drives her to appointments. Spouse assists her with some ADLs when needed. Smoking Status: Never smoker Past Alcohol Use History: None Reported Past Drug Use History: None Reported Additional Drug Use History / Comment(s): Lives at home with her r equires some assistance with ADLs at times - Past Family History Mother Family Medical History: Hypertension Additional Family Medical History / Comment(s): osteoporosis Father Family Medical History: Dementia, Diabetes Mellitus Medications and Allergies Home Medications Medication Instructions Recorded Confirmed Type Aspirin 81 mg PO DAILY@0900 11/08/13 05/11/19 History Baclofen [Lioresal] 10 mg PO DAILY@169911/08/13 05/11/19 History Citalopram Hydrobromide [CeleXA] 40 mg PO HS@2100 11/08/13 05/11/19 History Ferrous Sulfate [Feosol] 325 mg PO DAILY@169911/08/13 05/11/19 History Furosemide [Lasix] 40 mg PO BID@0900,1700 11/08/13 05/11/19 History Montelukast [Singulair] 10 mg PO DAILY@169911/08/13 05/11/19 History Nitroglycerin Sl Tabs [Nitrostat] 0.4 mg SUBLINGUAL Q5M PRN 11/08/13 05/11/19 History Pantoprazole Sodium [Protonix] 40 mg PO DAILY@0600 11/08/13 05/11/19 History Potassium Chloride 20 meq PO BID@0900,1700 11/08/13 05/11/19 History Cholecalciferol [Vitamin D3 (25 2,000 unit PO DAILY@0900 11/18/15 05/11/19 History Mcg = 1000 Iu)] Fluticasone Nasal [place] [Flonase 1 spray EA NOSTRIL BID@0900,2100 11/18/15 05/11/19 History Nasal [place]] Methylphenidate HCl [Ritalin] 20 mg PO BID@0900,1200 11/18/15 05/11/19 History Pravastatin Sodium [Pravachol] 20 mg PO HS@2100 11/18/15 05/11/19 History fentaNYL [Fentanyl] 25 mcg TRANSDERM Q72H 11/18/15 05/11/19 History Pregabalin [Lyrica] 100 mg PO TID@0900,1700,2100 07/13/16 05/11/19 History Folic Acid 0.4 mg PO DAILY@0900 08/18/16 05/11/19 History Dimethyl Fumarate [Tecfidera] 240 mg PO BID 04/04/18 05/11/19 History Fexofenadine HCl 180 mg PO DAILY 05/11/19 05/11/19 History HYDROcodone/APAP 5-325MG [[place] 1 tab PO Q6HR PRN 05/11/19 05/11/19 History 5-325] Levothyroxine Sodium [Levoxyl] 75 mcg PO DAILY@0900 05/11/19 05/11/19 History Warfarin [Coumadin] 7.5 mg PO MOTUTHFR 05/11/19 05/11/19 History Warfarin [Coumadin] 10 mg PO SUWE 05/11/19 05/11/19 History Allergies Allergy/AdvReac Type Severity Reaction Status Date / Time adhesive Allergy SKIN Verified 05/11/19 14:25 PEELING Physical Exam Vitals: Vital Signs Temp Pulse Resp BP Pulse Ox 05/13/19 16:00 61 16 113/56 96 05/13/19 12:00 59 L 16 107/59 91 L 05/13/19 11:49 16 05/13/19 08:00 96.5 F L 53 L 16 110/55 94 L 05/13/19 04:00 97.6 F 50 L 14 117/60 94 L 05/13/19 00:00 97.7 F 51 L 16 118/60 95 Intake and Output 05/13/19 05/13/19 05/14/19 14:59 22:59 06:59 Intake Total 320 240 Output Total 300 Balance 320 -60 Intake: Oral 320 240 Output: Urine 300 Other: Voiding Method Toilet Toilet # Voids 1 1 On physical examination, patient appears comfortable in no apparent distress. HEAD: Normocephalic, atraumatic. EYES: No scleral icterus. No conjunctival injection. MOUTH: No lesions, tongue midline. NECK: Trachea midline, no gross abnormalities. CHEST: Decreased air entry in all lung lazar. HEART: S1-S2 appreciated. ABDOMEN: Soft, obese, diffusely tender to palpation. Bowel sounds are positive. No organomegaly. No guarding or rigidity. EXTREMITIES: No pedal edema. SKIN: No rashes, no jaundice. NEUROLOGIC: Alert and interative, with residual right-sided weakness secondary to CVA Results CBC & Chem 7: 05/14/19 05:29 05/14/19 05:29 Labs: Abnormal Lab Results - Last 24 Hours (Table) 05/13/19 05/13/19 05/13/19 Range/Units 05:28 05:28 05:28 Plt Count 102 L (150-450) k/uL Lymphocytes # 0.5 L (1.0-4.8) k/uL PT 13.3 H (9.0-12.0) sec INR 1.3 H (<1.2) Carbon Dioxide 35 H (22-30) mmol/L BUN 31 H (7-17) mg/dL Creatinine 1.07 H (0.52-1.04) mg/dL Glucose 130 H (74-99) mg/dL POC Glucose (mg/dL) (75-99) mg/dL Total Bilirubin 1.6 H (0.2-1.3) mg/dL AST 345 H (14-36) U/L ALT 307 H (9-52) U/L Alkaline Phosphatase 143 H (38-126) U/L Total Protein 6.0 L (6.3-8.2) g/dL 05/13/19 05/13/19 Range/Units 07:00 17:07 Plt Count (150-450) k/uL Lymphocytes # (1.0-4.8) k/uL PT (9.0-12.0) sec INR (<1.2) Carbon Dioxide (22-30) mmol/L BUN (7-17) mg/dL Creatinine (0.52-1.04) mg/dL Glucose (74-99) mg/dL POC Glucose (mg/dL) 140 H 152 H (75-99) mg/dL Total Bilirubin (0.2-1.3) mg/dL AST (14-36) U/L ALT (9-52) U/L Alkaline Phosphatase (38-126) U/L Total Protein (6.3-8.2) g/dL US - abdomen: report reviewed (Ultrasound of the abdomen with findings of hepatocellular disease likely related to steatosis.) Assessment and Plan (1) Elevated liver enzymes Narrative/Plan: 63-year-old female who presents to the hospital due to chest pain, she has a medical history significant for multiple medical comorbidities including multiple sclerosis for which she is currently receiving treatment for possible exacerbation. Cardiology has ruled out for acute coronary syndrome. Liver enzymes were found admission subsequently trended into the abnormal range with total bilirubin 1.6 from 1.1 previously, alkaline phosphatase 143 from 94 previously, AST 345 from 36 previously and ALTs 370 from 41 previously. Ultrasound of the abdomen limited but with findings of diffuse hepato- echotexture suggestive of steatosis. Acute viral hepatitis ordered at negative. The patient denies any prior history of elevated liver enzymes, viral hepatitis, or high risk behavior. Given acute elevation in liver enzymes suspicion is for echogenic cause of elevated liver enzymes, likely exacerbated by underlying hepatic steatosis/chronic liver disease. However at this time liver serology will be ordered to rule out intrinsic liver disease. Current Visit: Yes Status: Acute Code(s): R74.8 - ABNORMAL LEVELS OF OTHER SERUM ENZYMES SNOMED Code(s): 111829653 Plan: Supportive care Okay for diet Acute viral hepatitis panel reviewed and negative Ultrasound abdomen reviewed and significant for hepatic steatosis, otherwise limited study Full liver serologies ordered and pending Consideration for further imaging of the liver if liver enzymes do not trend down with consideration for triple phase CT or MRI abdomen if liver enzymes remain elevated No plans for endoscopic evaluation at this time Continue to monitor CBC, CMP Thank you for allowing us to participate in the care of the patient we will continue to follow
--- NOTE | 2019-05-14 22:08 | P.PN ---
Subjective Progress Note Date: 05/14/19 Principal diagnosis: Elevated liver enzymes Patient is seen lying in bed. No acute events overnight. Still reports diffuse nonspecific abdominal pain Objective - Vital Signs Vital signs: Vital Signs Temp 96.2 F L 05/14/19 08:00 Pulse 61 05/14/19 12:00 Resp 16 05/14/19 12:00 BP 118/65 05/14/19 12:00 Pulse Ox 94 L 05/14/19 12:00 Intake & Output 05/13/19 05/14/19 05/14/19 18:59 06:59 18:59 Intake Total 560 400 Output Total 300 150 150 Balance 260 250 -150 Weight 89.2 kg Intake: Oral 560 400 Output: Urine 300 150 150 Other: Voiding Method Toilet Toilet Toilet # Voids 1 1 2 - Exam On physical examination, patient appears comfortable in no apparent distress. HEAD: Normocephalic, atraumatic. EYES: No scleral icterus. No conjunctival injection. MOUTH: No lesions, tongue midline. NECK: Trachea midline, no gross abnormalities. CHEST: Decreased air entry in all lung lazar. HEART: S1-S2 appreciated. ABDOMEN: Soft, obese, diffusely tender to palpation. Bowel sounds are positive. No organomegaly. No guarding or rigidity. EXTREMITIES: No pedal edema. SKIN: No rashes, no jaundice. NEUROLOGIC: Alert and interative, with residual right-sided weakness secondary to CVA - Labs CBC & Chem 7: 05/14/19 05:29 05/14/19 05:29 Labs: Abnormal Lab Results - Last 24 Hours (Table) 05/13/19 05/14/19 05/14/19 Range/Units 17:07 01:56 05:29 Plt Count (150-450) k/uL Lymphocytes # (1.0-4.8) k/uL PT 17.3 H (9.0-12.0) sec INR 1.7 H (<1.2) Carbon Dioxide (22-30) mmol/L BUN (7-17) mg/dL Creatinine (0.52-1.04) mg/dL Glucose (74-99) mg/dL POC Glucose (mg/dL) 152 H (75-99) mg/dL Magnesium 2.5 H (1.6-2.3) mg/dL Total Bilirubin (0.2-1.3) mg/dL AST (14-36) U/L ALT (9-52) U/L Alkaline Phosphatase (38-126) U/L Total Protein (6.3-8.2) g/dL 05/14/19 05/14/19 Range/Units 05:29 05:29 Plt Count 108 L (150-450) k/uL Lymphocytes # 0.8 L (1.0-4.8) k/uL PT (9.0-12.0) sec INR (<1.2) Carbon Dioxide 35 H (22-30) mmol/L BUN 25 H (7-17) mg/dL Creatinine 1.17 H (0.52-1.04) mg/dL Glucose 132 H (74-99) mg/dL POC Glucose (mg/dL) (75-99) mg/dL Magnesium (1.6-2.3) mg/dL Total Bilirubin 1.5 H (0.2-1.3) mg/dL AST 400 H (14-36) U/L ALT 811 H (9-52) U/L Alkaline Phosphatase 192 H (38-126) U/L Total Protein 5.9 L (6.3-8.2) g/dL Assessment and Plan (1) Elevated liver enzymes Narrative/Plan: 63-year-old female who presents to the hospital due to chest pain, she has a medical history significant for multiple medical comorbidities including multiple sclerosis for which she is currently receiving treatment for possible exacerbation. Cardiology has ruled out for acute coronary syndrome. Liver enzymes were found admission subsequently trended into the abnormal range with total bilirubin 1.6 from 1.1 previously, alkaline phosphatase 143 from 94 previously, AST 345 from 36 previously and ALTs 370 from 41 previously. Ultrasound of the abdomen limited but with findings of diffuse hepato- echotexture suggestive of steatosis. Acute viral hepatitis ordered at negative. The patient denies any prior history of elevated liver enzymes, viral hepatitis, or high risk behavior. Given acute elevation in liver enzymes suspicion is for echogenic cause of elevated liver enzymes, likely exacerbated by underlying hepatic steatosis/chronic liver disease. However at this time liver serology will be ordered to rule out intrinsic liver disease, pending to the. Current Visit: Yes Status: Acute Code(s): R74.8 - ABNORMAL LEVELS OF OTHER SERUM ENZYMES SNOMED Code(s): 080780298 Plan: Supportive care Okay for diet Acute viral hepatitis panel reviewed and negative Ultrasound abdomen reviewed and significant for hepatic steatosis, otherwise limited study Full liver serologies ordered and pending Consideration for further imaging of the liver if liver enzymes do not trend down with consideration for triple phase CT or MRI abdomen if liver enzymes re main elevated No plans for endoscopic evaluation at this time Continue to monitor CBC, CMP Thank you for allowing us to participate in the care of the patient we will continue to follow
[2019-05-14 22:52] LABS: Alpha Fetoprotein, Tumor Mkr <2.5 ng/mL (0.0-7.9)
[2019-05-14 23:23] LABS: Glucose,Whole Blood 214 mg/dL (75-99)
[2019-05-15] MEDS: LEVOTHYROXINE 75 MCG TAB PO SCH (06:02)
[2019-05-15] MEDS: PANTOPRAZOLE 40 MG TABLET PO SCH (06:02)
[2019-05-15 06:05] LABS: Glucose,Whole Blood 196 mg/dL (75-99)
[2019-05-15 06:21] LABS: Basophils # (A) 0.1 k/uL (0-0.2); Basophils % (A) 1 %; Eosinophils % (A) 1 %; HCT 45.7 % (34.0-46.0); HGB 15.4 gm/dL (11.4-16.0); Lymphocytes # (A) 0.5 k/uL (1.0-4.8); Lymphocytes % (A) 6 %; MCH 30.3 pg (25.0-35.0); MCHC 33.6 g/dL (31.0-37.0); MCV 90.1 fL (80.0-100.0); Mean Platelet Volume 9.7; Monocytes # (A) 0.1 k/uL (0-1.0); Monocytes % (A) 1 %; Neutrophils # (A) 7.2 k/uL (1.3-7.7); Neutrophils % (A) 91 %; Platelet Count 107 k/uL (150-450); RBC 5.07 m/uL (3.80-5.40); RDW 13.1 % (11.5-15.5); WBC 7.9 k/uL (3.8-10.6)
[2019-05-15] MEDS: INSULIN ASPART (NovoLOG) 100 UNIT/ML VIAL SQ SCH ×4 (06:22→21:02)
[2019-05-15 06:39] LABS: Albumin 3.7 g/dL (3.5-5.0); Calcium 9.2 mg/dL (8.4-10.2); Potassium 4.2 mmol/L (3.5-5.1); Total Bilirubin 0.9 mg/dL (0.2-1.3)
[2019-05-15] MEDS: CHOLECALCIFEROL 1,000 UNIT TAB PO SCH (09:08)
[2019-05-15] MEDS: FUROSEMIDE 40 MG TAB PO SCH ×2 (09:08→18:34)
[2019-05-15] MEDS: PREGABALIN 100 MG CAP PO SCH ×3 (09:08→21:54)
[2019-05-15] MEDS: ASPIRIN 81 MG PO SCH (09:08)
[2019-05-15] MEDS: LORATADINE 10 MG TAB PO SCH (09:08)
[2019-05-15] MEDS: POTASSIUM CHLORIDE ER 20 MEQ TAB.ER PO SCH ×2 (09:08→18:34)
[2019-05-15] MEDS: FOLIC ACID 1 MG TAB PO SCH (09:08)
[2019-05-15] MEDS: METHYLPHENIDATE HCL 10 MG TAB PO SCH ×2 (09:09→12:40)
[2019-05-15] MEDS: NON FORMULARY DRUG (Dimethyl Fumarate [Tecfidera] 240 MG) PO SCH ×2 (09:09→21:58)
[2019-05-15] MEDS: FLUTICASONE 50MCG/SPRAY NASAL 16GM EA NOSTRIL SCH ×2 (09:09→21:56)
[2019-05-15] MEDS: ENOXAPARIN 80 MG/0.8 ML SYRINGE SQ SCH (09:10)
[2019-05-15 09:33] LABS: INR 2.8 (<1.2)
[2019-05-15 09:34] LABS: Prothrombin Time 26.7 sec (9.0-12.0)
--- NOTE | 2019-05-15 10:07 | P.PN ---
<Elin Morel P - Last Filed: 05/15/19 10:03> Subjective Progress Note Date: 05/15/19 Huong Cooper, is a 63-year-old female well known to my practice who presented to [facility] emergency room with a chief complaint of chest pain patient describes a pressure sensation in the lower part of her chest she is holding her chest with her hands, she states that her pain is better now as compared to the time she came to emergency room. Patient has expressive aphasia due to previous stroke and is difficult to understand but she is clearly complaining of chest pain. She has been seen by cardiology in the past her last stress test was in October 2018 which was reported as negative. Patient has a known history of stroke in the past with right sided weakness, she also has a known history of pulmonary embolism and is maintained on anticoagulation, she also has a known history of multiple sclerosis. On 05/13/2019 patient is alert and oriented 3. Patient is still having some chest discomfort. Patient was evaluated by cardiology services, per cardiology and acute coronary event has been ruled out. Ultrasound of abdomen and bladder and pelvis ordered. Coumadin remains subtherapeutic. Currently being bridged with Lovenox. Patient denies nausea vomiting or diarrhea. Patient denies shortness breath. Patient denies any urinary burning or frequency On 05/14/2019 patient is currently resting comfortably in bed. Patient still having some discomfort but reports improved. Neurology service is consulted. GI service is consulted for elevated liver enzymes. This time patient denies chest pain or shortness of breath. Patient denies nausea vomiting or diarrhea. Patient denies any urinary burning and frequency. On 05/15/2019 patient is currently resting comfortably in bed. Patient is alert and oriented 3. Patient feels improved. Patient was started on Solu-Medrol per neurology recommendation. Liver enzymes are trending down. GI services are following otitis media and has been ordered. Patient denies chest pain or shortness breath. Patient denies nausea vomiting or diarrhea. Patient denies any urinary burning or frequency. Objective - Vital Signs Vital signs: Vital Signs Temp 97.8 F 05/15/19 09:21 Pulse 55 L 05/15/19 09:21 Resp 18 05/15/19 09:21 BP 107/58 05/15/19 09:21 Pulse Ox 97 05/15/19 09:21 Intake & Output 05/14/19 05/15/19 05/15/19 18:59 06:59 18:59 Intake Total 10 Output Total 150 Balance -150 10 Weight 94.7 kg Intake: IV 10 .9 10 Output: Urine 150 Other: Voiding Method Toilet Toilet Toilet # Voids 2 1 - Exam In general patient is alert responsive answering questions appropriately in no apparent distress HEENT head normocephalic and atraumatic there is right sided facial drooping which is chronic Neck is supple no JVD no goiter no lymphadenopathy Chest exam reveals a few scattered crackles bilaterally no wheezing Cardiac exam reveals regular heart sounds S1 and S2 no gallops no murmurs Abdomen is soft nontender no organomegaly with normal bowel sounds Extremity exam reveals no edema no cyanosis or clubbing Neurological examination reveals right sided weakness, with sensitivity to touch on the right side of her body, symptoms are chronic - Labs CBC & Chem 7: 05/15/19 05:45 05/15/19 05:45 Labs: Abnormal Lab Results - Last 24 Hours (Table) 05/14/19 05/14/19 05/15/19 Range/Units 20:12 23:21 05:45 Plt Count 107 L (150-450) k/uL Lymphocytes # 0.5 L (1.0-4.8) k/uL PT (9.0-12.0) sec INR (<1.2) Sodium (137-145) mmol/L BUN (7-17) mg/dL Creatinine (0.52-1.04) mg/dL Glucose (74-99) mg/dL POC Glucose (mg/dL) 331 H 214 H (75-99) mg/dL AST (14-36) U/L ALT (9-52) U/L Alkaline Phosphatase (38-126) U/L Total Protein (6.3-8.2) g/dL 05/15/19 05/15/19 05/15/19 Range/Units 05:45 06:03 09:17 Plt Count (150-450) k/uL Lymphocytes # (1.0-4.8) k/uL PT 26.7 H (9.0-12.0) sec INR 2.8 H (<1.2) Sodium 136 L (137-145) mmol/L BUN 27 H (7-17) mg/dL Creatinine 1.18 H (0.52-1.04) mg/dL Glucose 200 H (74-99) mg/dL POC Glucose (mg/dL) 196 H (75-99) mg/dL AST 105 H (14-36) U/L ALT 559 H (9-52) U/L Alkaline Phosphatase 167 H (38-126) U/L Total Protein 6.0 L (6.3-8.2) g/dL Assessment and Plan Assessment: #1 episode of chest pain, serial EKGs and cardiac enzymes are ordered cardiology consultation requested. Per cardiology acute coronary event has been ruled out. Recent stress test in the office unremarkable. Pain is atypical for angina. #2 history of pulmonary embolism INR on presentation was 2.1 INR today is down to 1.5, will cover with subcu Lovenox until INR is back to therapeutic range. D-dimer on presentation less than 0.17 #3 underlying history of multiple sclerosis with worsening weakness in the lower extremities. Per neurology services no signs of CVA or definitive MS exacerbation. Patient to follow-up with outpatient neurology and high-dose prednisone treatment possible MS exacerbation. Discussed case with Dr. arrington per neurology. Patient started on Stefany Osteen 250 mg every 6 hours for possible MS exacerbation. #4 acute renal insufficiency was elevated BUN at 43 elevated creatinine at 1.2 ultrasound of kidneys renal and bladder completed showing slight limited evaluation of the left kidney due to overlying bowel gas evidence of hydronephrosis or nephrolithiasis. No sonographic sequela of chronic medical renal disease. #5 previous history of stroke with residual right sided weakness #6 chronic pain patient is maintained on fentanyl and [place] #7 underlying history of obstructive sleep apnea patient is unable to tolerate CPAP machine #8. Elevated liver enzymes Tylenol on hold ultrasound ordered. GI service is consulted. Ultrasound of gallbladder completed showing limited exam with suboptimal visualization of the abdominal structures. The liver does demonstrate heterogenous hepatic echotexture most commonly related to hepatic steatosis. There is obscuration of the pancreas. Common bile duct and portions of the liver. AST 105 ALT 559 and alkaline phosphatase 167 these numbers do appear to be trending down. GI services are following. Acute viral hepatitis panel ordered. Consideration for possible CT or MRI if liver enzymes continue to increase DVT prophylaxis Coumadin and Lovenox with bridging. GI prophylaxis Protonix I performed an examination of the patient and discussed their management with the Nurse Practitioner. I have reviewed the Nurse Practitioner's notes and agree with the documented findings and plan of care <Sarah Paredes - Last Filed: 05/16/19 09:35> Objective - Vital Signs Vital signs: Vital Signs Temp 97.9 F 05/16/19 04:00 Pulse 53 L 05/16/19 04:00 Resp 16 05/16/19 04:00 BP 121/70 05/16/19 04:00 Pulse Ox 95 05/16/19 04:00 Intake & Output 05/15/19 05/16/19 05/16/19 18:59 06:59 18:59 Intake Total 1488 540 Balance 1488 540 Weight 94.5 kg Intake: Oral 1488 540 Other: Voiding Method Toilet Toilet # Voids 1 2 - Labs CBC & Chem 7: 05/16/19 06:08 05/16/19 06:08 Labs: Abnormal Lab Results - Last 24 Hours (Table) 05/15/19 05/15/19 05/15/19 Range/Units 09:17 11:32 16:41 WBC (3.8-10.6) k/uL Plt Count (150-450) k/uL Neutrophils # (1.3-7.7) k/uL Lymphocytes # (1.0-4.8) k/uL PT 26.7 H (9.0-12.0) sec INR 2.8 H (<1.2) Sodium (137-145) mmol/L BUN (7-17) mg/dL Creatinine (0.52-1.04) mg/dL Glucose (74-99) mg/dL POC Glucose (mg/dL) 289 H 186 H (75-99) mg/dL AST (14-36) U/L ALT (9-52) U/L Total Protein (6.3-8.2) g/dL Albumin (3.5-5.0) g/dL 05/15/19 05/16/19 05/16/19 Range/Units 20:49 06:08 06:08 WBC 17.1 H (3.8-10.6) k/uL Plt Count 116 L (150-450) k/uL Neutrophils # 16.1 H (1.3-7.7) k/uL Lymphocytes # 0.7 L (1.0-4.8) k/uL PT (9.0-12.0) sec INR (<1.2) Sodium 135 L (137-145) mmol/L BUN 34 H (7-17) mg/dL Creatinine 1.38 H (0.52-1.04) mg/dL Glucose 180 H (74-99) mg/dL POC Glucose (mg/dL) 288 H (75-99) mg/dL AST 41 H (14-36) U/L ALT 337 H (9-52) U/L Total Protein 5.4 L (6.3-8.2) g/dL Albumin 3.3 L (3.5-5.0) g/dL 05/16/19 05/16/19 Range/Units 06:08 06:19 WBC (3.8-10.6) k/uL Plt Count (150-450) k/uL Neutrophils # (1.3-7.7) k/uL Lymphocytes # (1.0-4.8) k/uL PT 33.6 H (9.0-12.0) sec INR 3.5 H (<1.2) Sodium (137-145) mmol/L BUN (7-17) mg/dL Creatinine (0.52-1.04) mg/dL Glucose (74-99) mg/dL POC Glucose (mg/dL) 189 H (75-99) mg/dL AST (14-36) U/L ALT (9-52) U/L Total Protein (6.3-8.2) g/dL Albumin (3.5-5.0) g/dL Assessment and Plan Assessment: INR therapuetic. lovenox will be d/c, pharmacy to dose coumdin
[2019-05-15 11:14] LABS: Ceruloplasmin 22.9 mg/dL (20.0-60.0)
--- NOTE | 2019-05-15 11:17 | P.PN ---
Subjective Progress Note Date: 05/15/19 Patient offers no new complaints. Continues to be expressively aphasic. No new symptoms. Objective - Vital Signs Vital signs: Vital Signs Temp 97.8 F 05/15/19 09:21 Pulse 55 L 05/15/19 09:21 Resp 18 05/15/19 09:21 BP 107/58 05/15/19 09:21 Pulse Ox 97 05/15/19 09:21 Intake & Output 05/14/19 05/15/19 05/15/19 18:59 06:59 18:59 Intake Total 10 604 Output Total 150 Balance -150 10 604 Weight 94.7 kg Intake: IV 10 .9 10 Oral 604 Output: Urine 150 Other: Voiding Method Toilet Toilet Toilet # Voids 2 1 - Exam Patient's mental status is stable. Patient has expressive aphasia, which is chronic since her stroke. Rest of the examination is relatively nonfocal. She does have brisk reflexes. Muscle strength is normal. - Labs CBC & Chem 7: 05/15/19 05:45 05/15/19 05:45 Labs: Abnormal Lab Results - Last 24 Hours (Table) 05/14/19 05/14/19 05/15/19 Range/Units 20:12 23:21 05:45 Plt Count 107 L (150-450) k/uL Lymphocytes # 0.5 L (1.0-4.8) k/uL PT (9.0-12.0) sec INR (<1.2) Sodium (137-145) mmol/L BUN (7-17) mg/dL Creatinine (0.52-1.04) mg/dL Glucose (74-99) mg/dL POC Glucose (mg/dL) 331 H 214 H (75-99) mg/dL AST (14-36) U/L ALT (9-52) U/L Alkaline Phosphatase (38-126) U/L Total Protein (6.3-8.2) g/dL 05/15/19 05/15/19 05/15/19 Range/Units 05:45 06:03 09:17 Plt Count (150-450) k/uL Lymphocytes # (1.0-4.8) k/uL PT 26.7 H (9.0-12.0) sec INR 2.8 H (<1.2) Sodium 136 L (137-145) mmol/L BUN 27 H (7-17) mg/dL Creatinine 1.18 H (0.52-1.04) mg/dL Glucose 200 H (74-99) mg/dL POC Glucose (mg/dL) 196 H (75-99) mg/dL AST 105 H (14-36) U/L ALT 559 H (9-52) U/L Alkaline Phosphatase 167 H (38-126) U/L Total Protein 6.0 L (6.3-8.2) g/dL Assessment and Plan Assessment: * 63-year-old female with history of left MCA territory stroke, with residual expressive aphasia, also reportedly has been diagnosed with relapsing remitting multiple sclerosis. * Possible MS exacerbation. * Chest pain. * Elevated liver enzymes. Plan: * Patient apparently has recent MS exacerbation noted by her neurologist. We will therefore give Solu-Medrol 250 mg IVPB every 6 hours for 3 days for possible MS exacerbation. * Patient to follow up with her neurologist as outpatient after discharge.
[2019-05-15 11:34] LABS: Glucose,Whole Blood 289 mg/dL (75-99)
[2019-05-15 16:42] LABS: Glucose,Whole Blood 186 mg/dL (75-99)
[2019-05-15] MEDS ORDERED: WARFARIN 5 MG TAB PO ONE (18:00)
--- NOTE | 2019-05-15 18:33 | PN ---
PROGRESS NOTE DATE OF DICTATION: 05/15/2019 The patient is a 63-year-old pleasant white female admitted to the hospital with acute onset of severe chest pain and epigastric and right upper quadrant abdominal pain and was noted to have elevated serum transaminases. At the time of admission to the hospital, her serum transaminases were normal. However, two days later she was noted to have elevated serum transaminases with a bilirubin that went up to 1.6 with ALT and AST in the range of 408 and 111, and alkaline phosphatase of 192. Today the bilirubin is down to 0.9. ALT and AST are 105 and 559 and alkaline phosphatase 167. The patient still continues to complain of epigastric and right upper quadrant abdominal pain. No further episodes of chest pain. Cardiology was consulted and cardiac causes have been ruled out. The patient says that she had a cholecystectomy many years ago but does not recall the details. PHYSICAL EXAMINATION: She appears comfortable. No apparent distress. Vital signs are stable. Blood pressure is 118/63, pulse rate 74, temperature 97.1. HEENT examination unremarkable. Conjunctivae pink. Sclerae anicteric. Oral cavity no lesions. NECK: No JVD or lymph node enlargement. CHEST: Clear to auscultation. HEART: Regular rate and rhythm. ABDOMEN: Tender in the epigastric area as well as in the right upper quadrant area. Bowel sounds are positive. No organomegaly. EXTREMITIES: No pedal edema. SKIN: No rashes. NEUROLOGIC: Alert and oriented x3. No focal deficits. LABS: Hepatitis serologies for A, B and C are negative. Today T-bilirubin is 0.9, AST 105, ALT 559, alkaline phosphatase 167. Alpha-1 antitrypsin, ceruloplasmin normal. Alpha fetoprotein negative. Antinuclear antibody, antimitochondrial antibody, anti-smooth muscle antibody negative. IMPRESSION: This is a lady who presents to the hospital with acute onset of severe chest pain, epigastric pain, right upper quadrant abdominal pain and noted to have elevated serum transaminases which were normal at the time of admission to the hospital. This raises the possibility of a CBD stone. She has remote history of gallbladder surgery many years ago. She did have ultrasound of the right upper quadrant done 2 days ago. CBD could not be visualized because of obscured overlying bowel gas. There was evidence of hepatic steatosis. RECOMMENDATIONS: 1. Will schedule the patient for MRCP to evaluate for possible CBD stone. 2. Repeat serum transaminases in the morning. 3. Continue with current medications. 4. All workup for chronic liver disease has been negative, but patient may have underlying steatosis of the liver/fatty liver disease. Thank you for this consultation. Will follow the patient closely during her hospital stay. MMODL / IJN: [id number] /
[2019-05-15] MEDS: MONTELUKAST 10 MG TAB PO SCH (18:34)
[2019-05-15] MEDS: BACLOFEN 10 MG TAB PO SCH (18:34)
[2019-05-15] MEDS: FERROUS SULFATE 325 MG TAB PO SCH (18:34)
[2019-05-15 20:51] LABS: Glucose,Whole Blood 288 mg/dL (75-99)
[2019-05-15] MEDS: PRAVASTATIN SODIUM 20 MG TAB PO SCH (21:55)
[2019-05-15] MEDS: CITALOPRAM HYDROBROMIDE 20 MG TAB PO SCH (21:55)
[2019-05-16 06:20] LABS: Glucose,Whole Blood 189 mg/dL (75-99)
[2019-05-16 06:38] LABS: Basophils # (A) 0.1 k/uL (0-0.2); Basophils % (A) 0 %; Eosinophils # (A) 0.1 k/uL (0-0.7); Eosinophils % (A) 0 %; HCT 40.7 % (34.0-46.0); HGB 13.3 gm/dL (11.4-16.0); Lymphocytes # (A) 0.7 k/uL (1.0-4.8); Lymphocytes % (A) 4 %; MCH 29.2 pg (25.0-35.0); MCHC 32.6 g/dL (31.0-37.0); MCV 89.5 fL (80.0-100.0); Mean Platelet Volume 10.2; Monocytes # (A) 0.2 k/uL (0-1.0); Monocytes % (A) 1 %; Neutrophils # (A) 16.1 k/uL (1.3-7.7); Neutrophils % (A) 94 %; Platelet Count 116 k/uL (150-450); RBC 4.55 m/uL (3.80-5.40); RDW 13.1 % (11.5-15.5); WBC 17.1 k/uL (3.8-10.6)
[2019-05-16 06:40] LABS: INR 3.5 (<1.2); Prothrombin Time 33.6 sec (9.0-12.0)
[2019-05-16 06:49] LABS: Albumin 3.3 g/dL (3.5-5.0); Calcium 9.1 mg/dL (8.4-10.2); Potassium 4.5 mmol/L (3.5-5.1); Total Bilirubin 0.5 mg/dL (0.2-1.3); Total Protein 5.4 g/dL (6.3-8.2)
[2019-05-16] MEDS: LEVOTHYROXINE 75 MCG TAB PO SCH (06:51)
[2019-05-16] MEDS: PANTOPRAZOLE 40 MG TABLET PO SCH (06:51)
[2019-05-16] MEDS: INSULIN ASPART (NovoLOG) 100 UNIT/ML VIAL SQ SCH ×4 (06:56→20:29)
--- NOTE | 2019-05-16 09:55 | P.PN ---
Subjective Progress Note Date: 05/16/19 Huong Cooper, is a 63-year-old female well known to my practice who presented to [facility] emergency room with a chief complaint of chest pain patient describes a pressure sensation in the lower part of her chest she is holding her chest with her hands, she states that her pain is better now as compared to the time she came to emergency room. Patient has expressive aphasia due to previous stroke and is difficult to understand but she is clearly complaining of chest pain. She has been seen by cardiology in the past her last stress test was in October 2018 which was reported as negative. Patient has a known history of stroke in the past with right sided weakness, she also has a known history of pulmonary embolism and is maintained on anticoagulation, she also has a known history of multiple sclerosis. On 05/13/2019 patient is alert and oriented 3. Patient is still having some chest discomfort. Patient was evaluated by cardiology services, per cardiology and acute coronary event has been ruled out. Ultrasound of abdomen and bladder and pelvis ordered. Coumadin remains subtherapeutic. Currently being bridged with Lovenox. Patient denies nausea vomiting or diarrhea. Patient denies shortness breath. Patient denies any urinary burning or frequency On 05/14/2019 patient is currently resting comfortably in bed. Patient still having some discomfort but reports improved. Neurology service is consulted. GI service is consulted for elevated liver enzymes. This time patient denies chest pain or shortness of breath. Patient denies nausea vomiting or diarrhea. Patient denies any urinary burning and frequency. On 05/15/2019 patient is currently resting comfortably in bed. Patient is alert and oriented 3. Patient feels improved. Patient was started on Solu-Medrol per neurology recommendation. Liver enzymes are trending down. GI services are following hepatitis panel and has been ordered. Patient denies chest pain or shortness breath. Patient denies nausea vomiting or diarrhea. Patient denies any urinary burning or frequency. On 05/16/2019 patient is alert sitting up in bed. Patient reports feeling improved today with less weakness. Patient is on day 2 of 3 of Solu-Medrol treatment. Liver enzymes are trending down. GI services have ordered an MRCP, no scheduled time, likely today. INR is 3.5, pharmacy to dose warfarin. Warfarin will be held today. Creatinine is 1.38 from 1.18. Normal saline at 50/ml ordered. Will hold Lasix today and repeat labs . Patient denies chest pain, shortness of breath. Patient denies any nausea, vomiting or diarrhea. Patient denies any urinary burning or frequency. Objective - Vital Signs Vital signs: Vital Signs Temp 97.9 F 05/16/19 04:00 Pulse 53 L 05/16/19 04:00 Resp 16 05/16/19 04:00 BP 121/70 05/16/19 04:00 Pulse Ox 95 05/16/19 04:00 Intake & Output 05/15/19 05/16/19 05/16/19 18:59 06:59 18:59 Intake Total 1488 540 Balance 1488 540 Weight 94.5 kg Intake: Oral 1488 540 Other: Voiding Method Toilet Toilet # Voids 1 2 - Exam In general patient is alert responsive answering questions appropriately in no apparent distress HEENT head normocephalic and atraumatic there is right sided facial drooping which is chronic Neck is supple no JVD no goiter no lymphadenopathy Chest exam reveals diminished lung sounds bilaterally, no wheezing Cardiac exam reveals regular heart sounds S1 and S2 no gallops no murmurs Abdomen is soft nontender no organomegaly with normal bowel sounds Extremity exam reveals no edema no cyanosis or clubbing Neurological examination reveals right sided weakness, with sensitivity to touch on the right side of her body, symptoms are chronic - Labs CBC & Chem 7: 05/16/19 06:08 05/16/19 06:08 Labs: Abnormal Lab Results - Last 24 Hours (Table) 05/15/19 05/15/19 05/15/19 Range/Units 11:32 16:41 20:49 WBC (3.8-10.6) k/uL Plt Count (150-450) k/uL Neutrophils # (1.3-7.7) k/uL Lymphocytes # (1.0-4.8) k/uL PT (9.0-12.0) sec INR (<1.2) Sodium (137-145) mmol/L BUN (7-17) mg/dL Creatinine (0.52-1.04) mg/dL Glucose (74-99) mg/dL POC Glucose (mg/dL) 289 H 186 H 288 H (75-99) mg/dL AST (14-36) U/L ALT (9-52) U/L Total Protein (6.3-8.2) g/dL Albumin (3.5-5.0) g/dL 05/16/19 05/16/19 05/16/19 Range/Units 06:08 06:08 06:08 WBC 17.1 H (3.8-10.6) k/uL Plt Count 116 L (150-450) k/uL Neutrophils # 16.1 H (1.3-7.7) k/uL Lymphocytes # 0.7 L (1.0-4.8) k/uL PT 33.6 H (9.0-12.0) sec INR 3.5 H (<1.2) Sodium 135 L (137-145) mmol/L BUN 34 H (7-17) mg/dL Creatinine 1.38 H (0.52-1.04) mg/dL Glucose 180 H (74-99) mg/dL POC Glucose (mg/dL) (75-99) mg/dL AST 41 H (14-36) U/L ALT 337 H (9-52) U/L Total Protein 5.4 L (6.3-8.2) g/dL Albumin 3.3 L (3.5-5.0) g/dL 05/16/19 Range/Units 06:19 WBC (3.8-10.6) k/uL Plt Count (150-450) k/uL Neutrophils # (1.3-7.7) k/uL Lymphocytes # (1.0-4.8) k/uL PT (9.0-12.0) sec INR (<1.2) Sodium (137-145) mmol/L BUN (7-17) mg/dL Creatinine (0.52-1.04) mg/dL Glucose (74-99) mg/dL POC Glucose (mg/dL) 189 H (75-99) mg/dL AST (14-36) U/L ALT (9-52) U/L Total Protein (6.3-8.2) g/dL Albumin (3.5-5.0) g/dL Assessment and Plan Assessment: #1 episode of chest pain, serial EKGs and cardiac enzymes are ordered cardiology consultation requested. Per cardiology acute coronary event has been ruled out. Recent stress test in the office unremarkable. Pain is atypical for angina. #2 history of pulmonary embolism INR on presentation was 2.1 D-dimer on presentation less than 0.17. INR today 3.5. Pharmacy to dose. #3 underlying history of multiple sclerosis with worsening weakness in the lower extremities. Per neurology services no signs of CVA or definitive MS exacerbation. Patient to follow-up with outpatient neurology and high-dose pre dnisone treatment possible MS exacerbation. Discussed case with Dr. arrington per neurology. Patient on day 2 of 3 of Solu-Medrol 250 mg every 6 hours for possible MS exacerbation. Weakness improving. #4 acute renal insufficiency was elevated BUN at 43 elevated creatinine at 1.2 ultrasound of kidneys renal and bladder completed showing slight limited evaluation of the left kidney due to overlying bowel gas evidence of hydronephrosis or nephrolithiasis. No sonographic sequela of chronic medical renal disease. Creatinine is 1.38 from 1.18. We'll hold Lasix today. Repeat labs tomorrow start on normal saline 50 MLS per hour. #5 previous history of stroke with residual right sided weakness #6 chronic pain patient is maintained on fentanyl and [place] #7 underlying history of obstructive sleep apnea patient is unable to tolerate CPAP machine #8. Elevated liver enzymes Tylenol on hold ultrasound ordered. GI service is consulted. Ultrasound of gallbladder completed showing limited exam with suboptimal visualization of the abdominal structures. The liver does demonstrate heterogenous hepatic echotexture most commonly related to hepatic steatosis. There is obscuration of the pancreas. Common bile duct and portions of the liver. AST 105 ALT 559 and alkaline phosphatase 167 these numbers do appear to be trending down. GI services are following. Acute viral hepatitis panel negative. Per GI services on MRCP is ordered. DVT prophylaxis Coumadin and Lovenox with bridging. GI prophylaxis Protonix I performed an examination of the patient and discussed their management with the Nurse Practitioner. I have reviewed the Nurse Practitioner's notes and agree with the documented findings and plan of care
[2019-05-16 11:35] LABS: Glucose,Whole Blood 215 mg/dL (75-99)
[2019-05-16] MEDS: CHOLECALCIFEROL 1,000 UNIT TAB PO SCH (12:03)
[2019-05-16] MEDS: SODIUM CHLORIDE 0.9% 1,000 ML IV SCH (12:03)
[2019-05-16] MEDS: POTASSIUM CHLORIDE ER 20 MEQ TAB.ER PO SCH ×2 (12:04→18:11)
[2019-05-16] MEDS: PREGABALIN 100 MG CAP PO SCH ×3 (12:04→20:19)
[2019-05-16] MEDS: LORATADINE 10 MG TAB PO SCH (12:04)
[2019-05-16] MEDS: FOLIC ACID 1 MG TAB PO SCH (12:04)
[2019-05-16] MEDS: METHYLPHENIDATE HCL 10 MG TAB PO SCH ×2 (12:04→15:53)
[2019-05-16] MEDS: ASPIRIN 81 MG PO SCH (12:04)
[2019-05-16] MEDS: FLUTICASONE 50MCG/SPRAY NASAL 16GM EA NOSTRIL SCH ×2 (12:05→20:21)
[2019-05-16] MEDS: NON FORMULARY DRUG (Dimethyl Fumarate [Tecfidera] 240 MG) PO SCH ×2 (12:05→20:21)
--- NOTE | 2019-05-16 12:30 | P.PN ---
Subjective Progress Note Date: 05/16/19 Patient offers no new complaints. Continues to be expressively aphasic, which is baseline. No new symptoms. Objective - Vital Signs Vital signs: Vital Signs Temp 97.2 F L 05/16/19 12:00 Pulse 55 L 05/16/19 12:00 Resp 18 05/16/19 12:00 BP 115/75 05/16/19 12:00 Pulse Ox 94 L 05/16/19 12:00 Intake & Output 05/15/19 05/16/19 05/16/19 18:59 06:59 18:59 Intake Total 1488 540 Balance 1488 540 Weight 94.5 kg Intake: Oral 1488 540 Other: Voiding Method Toilet Toilet # Voids 1 2 - Exam Patient's mental status is stable. Patient has expressive aphasia, which is chronic since her stroke. Rest of the examination is relatively nonfocal. She does have brisk reflexes. Muscle strength is normal. - Labs CBC & Chem 7: 05/16/19 06:08 05/16/19 06:08 Labs: Abnormal Lab Results - Last 24 Hours (Table) 05/15/19 05/15/19 05/16/19 Range/Units 16:41 20:49 06:08 WBC 17.1 H (3.8-10.6) k/uL Plt Count 116 L (150-450) k/uL Neutrophils # 16.1 H (1.3-7.7) k/uL Lymphocytes # 0.7 L (1.0-4.8) k/uL PT (9.0-12.0) sec INR (<1.2) Sodium (137-145) mmol/L BUN (7-17) mg/dL Creatinine (0.52-1.04) mg/dL Glucose (74-99) mg/dL POC Glucose (mg/dL) 186 H 288 H (75-99) mg/dL AST (14-36) U/L ALT (9-52) U/L Total Protein (6.3-8.2) g/dL Albumin (3.5-5.0) g/dL 05/16/19 05/16/19 05/16/19 Range/Units 06:08 06:08 06:19 WBC (3.8-10.6) k/uL Plt Count (150-450) k/uL Neutrophils # (1.3-7.7) k/uL Lymphocytes # (1.0-4.8) k/uL PT 33.6 H (9.0-12.0) sec INR 3.5 H (<1.2) Sodium 135 L (137-145) mmol/L BUN 34 H (7-17) mg/dL Creatinine 1.38 H (0.52-1.04) mg/dL Glucose 180 H (74-99) mg/dL POC Glucose (mg/dL) 189 H (75-99) mg/dL AST 41 H (14-36) U/L ALT 337 H (9-52) U/L Total Protein 5.4 L (6.3-8.2) g/dL Albumin 3.3 L (3.5-5.0) g/dL 05/16/19 Range/Units 11:34 WBC (3.8-10.6) k/uL Plt Count (150-450) k/uL Neutrophils # (1.3-7.7) k/uL Lymphocytes # (1.0-4.8) k/uL PT (9.0-12.0) sec INR (<1.2) Sodium (137-145) mmol/L BUN (7-17) mg/dL Creatinine (0.52-1.04) mg/dL Glucose (74-99) mg/dL POC Glucose (mg/dL) 215 H (75-99) mg/dL AST (14-36) U/L ALT (9-52) U/L Total Protein (6.3-8.2) g/dL Albumin (3.5-5.0) g/dL Assessment and Plan Assessment: * 63-year-old female with history of left MCA territory stroke, with residual expressive aphasia, also reportedly has been diagnosed with relapsing remitting multiple sclerosis. * Possible MS exacerbation. * Chest pain. * Elevated liver enzymes. Plan: * Patient apparently has recent MS exacerbation noted by her neurologist. Continue Solu-Medrol 250 mg IVPB every 6 hours for 3 days for possible MS exacerbation. Then no need for oral tapering down dose of prednisone. * Patient to follow up with her neurologist as outpatient after discharge.
--- NOTE | 2019-05-16 12:32 | MR ---
EXAMINATION TYPE: MR MRCP DATE OF EXAM: 05/16/2019 COMPARISON: 05/22/2018 HISTORY: Abdominal/chest pain, R/O CBD stone Standard multiplanar, multisequence MRI departmental protocol Multiplanar, multisequence images of the abdomen were acquired. Diffusion weighted imaging was perfor med. 3-D images were reconstructed of the biliary tree FINDINGS: The common bile duct is dilated at 1.3 cm. There is luminal narrowing at the distal portion of the co mmon bile duct at the sphincter of Oddie. No filling defect is identified. There is evidence of prior cholecystectomy. Pancreatic duct is not dilated. There is hepatic steatosis. No hepatic lesion is se en. The spleen is not enlarged. No evidence for adrenal lesion. No pancreatic lesions seen. Small anabel al cortical cysts identified. IMPRESSION: The common bile duct is dilated at 1.3 cm. There is luminal narrowing at the distal portion of the co mmon bile duct at the sphincter of Oddie. No filling defect is identified.
[2019-05-16 16:48] LABS: Glucose,Whole Blood 266 mg/dL (75-99)
[2019-05-16] MEDS ORDERED: WARFARIN 0.5 MG TAB PO ONE (18:00)
[2019-05-16] MEDS ORDERED: WARFARIN 7.5 MG TAB PO SCH (18:00)
[2019-05-16] MEDS: FERROUS SULFATE 325 MG TAB PO SCH (18:11)
[2019-05-16] MEDS: MONTELUKAST 10 MG TAB PO SCH (18:11)
[2019-05-16] MEDS: BACLOFEN 10 MG TAB PO SCH (18:11)
[2019-05-16] MEDS ORDERED: INSULIN ASPART (NovoLOG) 100 UNIT/ML VIAL SQ ONE (18:49)
--- NOTE | 2019-05-16 20:10 | PN ---
PROGRESS NOTE DATE OF DICTATION: 05/16/2019 Patient is a 63-year-old pleasant white female admitted to the hospital with atypical chest pain and severe upper abdominal pain. At the time of admission hospital serum transaminases were normal. The next day serum transaminases were significantly elevated, which are gradually improving. She did have an MRCP done today for clinical suspicion for CBD stone. MRCP showed a dilated common bile duct at 1.3 cm. There is some luminal narrowing noted at the distal portion of the common bile duct at the sphincter of Oddi, but no filling defects were identified, and evidence of prior cholecystectomy. The patient today states that she still has some epigastric pain, but she is feeling better. She reports no nausea or vomiting. No fever, chills, night sweats. PHYSICAL EXAMINATION: Blood pressure is 115/75, pulse rate 55, temperature 97.2. HEENT examination unremarkable. Conjunctivae pink. Sclerae anicteric. Oral cavity no lesions. NECK: No JVD or lymph node enlargement. CHEST: Clear to auscultation. HEART: Regular rate and rhythm. ABDOMEN: Soft. Bowel sounds are positive. No organomegaly. Mild tenderness in the epigastric and right upper quadrant area. EXTREMITIES: No pedal edema. SKIN: No rashes. NEUROLOGIC: Alert and oriented x3. No focal deficits. LABS: Labs done today show WBC 17.1, hemoglobin 13.3, platelets 116. AST is down to 41. ALT is down to 337 and T-bilirubin is 0.5. All workup for chronic liver disease is negative. IMPRESSION: This is a lady who presented to the hospital with acute onset of severe epigastric pain, chest pain. Cardiac etiology was ruled out. She was also noted to have acute elevation of serum transaminases, which were normal at the time of admission to the hospital. Clinical picture was suspicious for a possible CBD stone that has passed spontaneously. Serum transaminases have significantly improved. She did have an MRCP done that showed evidence of dilated CBD at 1.3 cm, but no filling defects noted and slight narrowing of the distal common bile duct near the sphincter of Oddi. RECOMMENDATIONS: 1. No plans for an ERCP at the present time, as MRCP did not show any filling defects. 2. Repeat serum transaminases in the morning. 3. Continue her medications. 4. If her serum transaminases improve, she can be discharged home with outpatient followup in 2 weeks. Thank you for this consultation. MMODL / IJN: [id number] /
[2019-05-16 20:17] LABS: Glucose,Whole Blood 248 mg/dL (75-99)
[2019-05-16] MEDS: CITALOPRAM HYDROBROMIDE 20 MG TAB PO SCH (20:20)
[2019-05-16] MEDS: PRAVASTATIN SODIUM 20 MG TAB PO SCH (20:21)
[2019-05-17 06:25] LABS: Glucose,Whole Blood 231 mg/dL (75-99)
[2019-05-17 06:40] LABS: Basophils % (A) 0 %; Eosinophils % (A) 0 %; HCT 33.2 % (34.0-46.0); HGB 11.5 gm/dL (11.4-16.0); Lymphocytes # (A) 0.5 k/uL (1.0-4.8); Lymphocytes % (A) 4 %; MCH 31.1 pg (25.0-35.0); MCHC 34.7 g/dL (31.0-37.0); MCV 89.8 fL (80.0-100.0); Mean Platelet Volume 9.8; Monocytes # (A) 0.3 k/uL (0-1.0); Monocytes % (A) 2 %; Neutrophils # (A) 11.1 k/uL (1.3-7.7); Neutrophils % (A) 93 %; RDW 13.4 % (11.5-15.5); WBC 11.9 k/uL (3.8-10.6)
[2019-05-17] MEDS: LEVOTHYROXINE 75 MCG TAB PO SCH (06:42)
[2019-05-17] MEDS: INSULIN ASPART (NovoLOG) 100 UNIT/ML VIAL SQ SCH ×4 (06:42→20:43)
[2019-05-17] MEDS: PANTOPRAZOLE 40 MG TABLET PO SCH (06:42)
[2019-05-17] MEDS: SODIUM CHLORIDE 0.9% 1,000 ML IV SCH (06:43)
[2019-05-17 06:53] LABS: Albumin 2.9 g/dL (3.5-5.0); Calcium 8.7 mg/dL (8.4-10.2); Potassium 4.7 mmol/L (3.5-5.1); Total Bilirubin 0.4 mg/dL (0.2-1.3); Total Protein 4.9 g/dL (6.3-8.2)
[2019-05-17 07:04] LABS: INR 3.2 (<1.2); Prothrombin Time 31.1 sec (9.0-12.0)
[2019-05-17 08:04] LABS: Platelet Count 97 k/uL (150-450)
[2019-05-17 08:05] LABS: Anisocytosis (M) Present; Poikilocytosis (M) Present
--- NOTE | 2019-05-17 10:15 | P.PN ---
Subjective Progress Note Date: 05/17/19 Huong Cooper, is a 63-year-old female well known to my practice who presented to [facility] emergency room with a chief complaint of chest pain patient describes a pressure sensation in the lower part of her chest she is holding her chest with her hands, she states that her pain is better now as compared to the time she came to emergency room. Patient has expressive aphasia due to previous stroke and is difficult to understand but she is clearly complaining of chest pain. She has been seen by cardiology in the past her last stress test was in October 2018 which was reported as negative. Patient has a known history of stroke in the past with right sided weakness, she also has a known history of pulmonary embolism and is maintained on anticoagulation, she also has a known history of multiple sclerosis. On 05/13/2019 patient is alert and oriented 3. Patient is still having some chest discomfort. Patient was evaluated by cardiology services, per cardiology and acute coronary event has been ruled out. Ultrasound of abdomen and bladder and pelvis ordered. Coumadin remains subtherapeutic. Currently being bridged with Lovenox. Patient denies nausea vomiting or diarrhea. Patient denies shortness breath. Patient denies any urinary burning or frequency On 05/14/2019 patient is currently resting comfortably in bed. Patient still having some discomfort but reports improved. Neurology service is consulted. GI service is consulted for elevated liver enzymes. This time patient denies chest pain or shortness of breath. Patient denies nausea vomiting or diarrhea. Patient denies any urinary burning and frequency. On 05/15/2019 patient is currently resting comfortably in bed. Patient is alert and oriented 3. Patient feels improved. Patient was started on Solu-Medrol per neurology recommendation. Liver enzymes are trending down. GI services are following hepatitis panel and has been ordered. Patient denies chest pain or shortness breath. Patient denies nausea vomiting or diarrhea. Patient denies any urinary burning or frequency. On 05/16/2019 patient is alert sitting up in bed. Patient reports feeling improved today with less weakness. Patient is on day 2 of 3 of Solu-Medrol treatment. Liver enzymes are trending down. GI services have ordered an MRCP, no scheduled time, likely today. INR is 3.5, pharmacy to dose warfarin. Warfarin will be held today. Creatinine is 1.38 from 1.18. Normal saline at 50/ml ordered. Will hold Lasix today and repeat labs . Patient denies chest pain, shortness of breath. Patient denies any nausea, vomiting or diarrhea. Patient denies any urinary burning or frequency. On 05/17/2019 patient is alert and oriented 3. Patient is having some improvement with weakness. Patient's INR today 3.2 pharmacy to dose Coumadin. Patient does have significant bruising to abdomen to previous Lovenox shots that have been DC'd. Patient's creatinine continues to be elevated at 1.40 continue normal saline 50. Patient denies chest pain or shortness of breath. Patient denies nausea vomiting or diarrhea. Patient denies any urinary burning or frequency. Per GI services no plans for ERCP at this time. Objective - Vital Signs Vital signs: Vital Signs Temp 97.8 F 05/17/19 08:35 Pulse 55 L 05/17/19 08:35 Resp 16 05/17/19 08:35 BP 110/65 05/17/19 08:35 Pulse Ox 95 05/17/19 08:35 Intake & Output 05/16/19 05/17/19 05/17/19 18:59 06:59 18:59 Intake Total 444 240 Output Total 650 Balance 444 -650 240 Weight 97.6 kg Intake: Oral 444 240 Output: Urine 650 Other: Voiding Method Toilet # Voids 3 - Exam In general patient is alert responsive answering questions appropriately in no apparent distress HEENT head normocephalic and atraumatic there is right sided facial drooping which is chronic Neck is supple no JVD no goiter no lymphadenopathy Chest exam reveals diminished lung sounds bilaterally, no wheezing Cardiac exam reveals regular heart sounds S1 and S2 no gallops no murmurs Abdomen is soft nontender no organomegaly with normal bowel sounds. Bruising noted to right and left side of abdomen Extremity exam reveals no edema no cyanosis or clubbing Neurological examination reveals right sided weakness, with sensitivity to touch on the right side of her body, symptoms are chronic - Labs CBC & Chem 7: 05/17/19 06:03 05/17/19 06:03 Labs: Abnormal Lab Results - Last 24 Hours (Table) 05/16/19 05/16/19 05/16/19 Range/Units 11:34 16:47 20:15 WBC (3.8-10.6) k/uL RBC (3.80-5.40) m/uL Hct (34.0-46.0) % Plt Count (150-450) k/uL Neutrophils # (1.3-7.7) k/uL Lymphocytes # (1.0-4.8) k/uL PT (9.0-12.0) sec INR (<1.2) Sodium (137-145) mmol/L BUN (7-17) mg/dL Creatinine (0.52-1.04) mg/dL Glucose (74-99) mg/dL POC Glucose (mg/dL) 215 H 266 H 248 H (75-99) mg/dL ALT (9-52) U/L Total Protein (6.3-8.2) g/dL Albumin (3.5-5.0) g/dL 05/17/19 05/17/19 05/17/19 Range/Units 06:03 06:03 06:03 WBC 11.9 H (3.8-10.6) k/uL RBC 3.70 L (3.80-5.40) m/uL Hct 33.2 L (34.0-46.0) % Plt Count 97 L (150-450) k/uL Neutrophils # 11.1 H (1.3-7.7) k/uL Lymphocytes # 0.5 L (1.0-4.8) k/uL PT 31.1 H (9.0-12.0) sec INR 3.2 H (<1.2) Sodium 136 L (137-145) mmol/L BUN 38 H (7-17) mg/dL Creatinine 1.40 H (0.52-1.04) mg/dL Glucose 215 H (74-99) mg/dL POC Glucose (mg/dL) (75-99) mg/dL ALT 215 H (9-52) U/L Total Protein 4.9 L (6.3-8.2) g/dL Albumin 2.9 L (3.5-5.0) g/dL 05/17/19 Range/Units 06:21 WBC (3.8-10.6) k/uL RBC (3.80-5.40) m/uL Hct (34.0-46.0) % Plt Count (150-450) k/uL Neutrophils # (1.3-7.7) k/uL Lymphocytes # (1.0-4.8) k/uL PT (9.0-12.0) sec INR (<1.2) Sodium (137-145) mmol/L BUN (7-17) mg/dL Creatinine (0.52-1.04) mg/dL Glucose (74-99) mg/dL POC Glucose (mg/dL) 231 H (75-99) mg/dL ALT (9-52) U/L Total Protein (6.3-8.2) g/dL Albumin (3.5-5.0) g/dL Assessment and Plan Assessment: #1 episode of chest pain, serial EKGs and cardiac enzymes are ordered cardiology consultation requested. Per cardiology acute coronary event has been ruled out. Recent stress test in the office unremarkable. Pain is atypical for angina. #2 history of pulmonary embolism INR on presentation was 2.1 D-dimer on presentation less than 0.17. INR today 3.5. Pharmacy to dose. #3 underlying history of multiple sclerosis with worsening weakness in the lower extremities. Per neurology services no signs of CVA or definitive MS exacerbation. Patient to follow-up with outpatient neurology and high-dose prednisone treatment possible MS exacerbation. Discussed case with Dr. arrington per neurology. Patient on day 2 of 3 of Solu-Medrol 250 mg every 6 hours for possible MS exacerbation. Weakness improving. #4 acute renal insufficiency was elevated BUN at 43 elevated creatinine at 1.2 ultrasound of kidneys renal and bladder completed showing slight limited evaluation of the left kidney due to overlying bowel gas evidence of hydronephrosis or nephrolithiasis. No sonographic sequela of chronic medical renal disease. Creatinine is 1.38 from 1.18. We'll hold Lasix today. Repeat labs tomorrow start on normal saline 50 MLS per hour. #5 previous history of stroke with residual right sided weakness #6 chronic pain patient is maintained on fentanyl and [place] #7 underlying history of obstructive sleep apnea patient is unable to tolerate CPAP machine #8. Elevated liver enzymes Tylenol on hold ultrasound ordered. GI service is consulted. Ultrasound of gallbladder completed showing limited exam with suboptimal visualization of the abdominal structures. The liver does demon strate heterogenous hepatic echotexture most commonly related to hepatic steatosis. There is obscuration of the pancreas. Common bile duct and portions of the liver. AST 105 ALT 559 and alkaline phosphatase 167 these numbers do appear to be trending down. GI services are following. Acute viral hepatitis panel negative. MRCP completed showing, common bile duct dilated at 1.3 cm there is luminal narrowing of the distal portion of the common bile duct sphincter jone no filling defect is identified. Per GI services no plans for ERCP at this present time patient follow-up outpatient in 2 weeks #9. Bruising noted to abdomen likely due to previous Lovenox injections. Injections have since been DC'd. hemoGlobin remained stable DVT prophylaxis Coumadin. GI prophylaxis Protonix I performed an examination of the patient and discussed their management with the Nurse Practitioner. I have reviewed the Nurse Practitioner's notes and agree with the documented findings and plan of care
[2019-05-17] MEDS: FLUTICASONE 50MCG/SPRAY NASAL 16GM EA NOSTRIL SCH ×2 (10:24→20:43)
[2019-05-17] MEDS: CHOLECALCIFEROL 1,000 UNIT TAB PO SCH (10:24)
[2019-05-17] MEDS: ASPIRIN 81 MG PO SCH (10:24)
[2019-05-17] MEDS: POTASSIUM CHLORIDE ER 20 MEQ TAB.ER PO SCH ×2 (10:25→17:36)
[2019-05-17] MEDS: PREGABALIN 100 MG CAP PO SCH ×3 (10:25→20:43)
[2019-05-17] MEDS: LORATADINE 10 MG TAB PO SCH (10:25)
[2019-05-17] MEDS: METHYLPHENIDATE HCL 10 MG TAB PO SCH ×2 (10:25→13:57)
[2019-05-17] MEDS: FOLIC ACID 1 MG TAB PO SCH (10:25)
[2019-05-17] MEDS: NON FORMULARY DRUG (Dimethyl Fumarate [Tecfidera] 240 MG) PO SCH ×2 (10:26→20:43)
--- NOTE | 2019-05-17 11:17 | P.PN ---
Subjective Progress Note Date: 05/17/19 Patient offers no new complaints. Continues to be expressively aphasic, which is baseline. No new symptoms. Objective - Vital Signs Vital signs: Vital Signs Temp 97.8 F 05/17/19 08:35 Pulse 55 L 05/17/19 08:35 Resp 16 05/17/19 08:35 BP 110/65 05/17/19 08:35 Pulse Ox 95 05/17/19 08:35 Intake & Output 05/16/19 05/17/19 05/17/19 18:59 06:59 18:59 Intake Total 444 240 Output Total 650 Balance 444 -650 240 Weight 97.6 kg Intake: Oral 444 240 Output: Urine 650 Other: Voiding Method Toilet # Voids 3 - Exam Patient's mental status is stable. Patient has expressive aphasia, which is chronic since her stroke. Rest of the examination is relatively nonfocal. She does have brisk reflexes. Muscle strength is normal. - Labs CBC & Chem 7: 05/17/19 06:03 05/17/19 06:03 Labs: Abnormal Lab Results - Last 24 Hours (Table) 05/16/19 05/16/19 05/16/19 Range/Units 11:34 16:47 20:15 WBC (3.8-10.6) k/uL RBC (3.80-5.40) m/uL Hct (34.0-46.0) % Plt Count (150-450) k/uL Neutrophils # (1.3-7.7) k/uL Lymphocytes # (1.0-4.8) k/uL PT (9.0-12.0) sec INR (<1.2) Sodium (137-145) mmol/L BUN (7-17) mg/dL Creatinine (0.52-1.04) mg/dL Glucose (74-99) mg/dL POC Glucose (mg/dL) 215 H 266 H 248 H (75-99) mg/dL ALT (9-52) U/L Total Protein (6.3-8.2) g/dL Albumin (3.5-5.0) g/dL 05/17/19 05/17/19 05/17/19 Range/Units 06:03 06:03 06:03 WBC 11.9 H (3.8-10.6) k/uL RBC 3.70 L (3.80-5.40) m/uL Hct 33.2 L (34.0-46.0) % Plt Count 97 L (150-450) k/uL Neutrophils # 11.1 H (1.3-7.7) k/uL Lymphocytes # 0.5 L (1.0-4.8) k/uL PT 31.1 H (9.0-12.0) sec INR 3.2 H (<1.2) Sodium 136 L (137-145) mmol/L BUN 38 H (7-17) mg/dL Creatinine 1.40 H (0.52-1.04) mg/dL Glucose 215 H (74-99) mg/dL POC Glucose (mg/dL) (75-99) mg/dL ALT 215 H (9-52) U/L Total Protein 4.9 L (6.3-8.2) g/dL Albumin 2.9 L (3.5-5.0) g/dL 05/17/19 Range/Units 06:21 WBC (3.8-10.6) k/uL RBC (3.80-5.40) m/uL Hct (34.0-46.0) % Plt Count (150-450) k/uL Neutrophils # (1.3-7.7) k/uL Lymphocytes # (1.0-4.8) k/uL PT (9.0-12.0) sec INR (<1.2) Sodium (137-145) mmol/L BUN (7-17) mg/dL Creatinine (0.52-1.04) mg/dL Glucose (74-99) mg/dL POC Glucose (mg/dL) 231 H (75-99) mg/dL ALT (9-52) U/L Total Protein (6.3-8.2) g/dL Albumin (3.5-5.0) g/dL Assessment and Plan Assessment: * 63-year-old female with history of left MCA territory stroke, with residual expressive aphasia, also carries a diagnosis of relapsing remitting multiple sclerosis. * Possible MS exacerbation. * Chest pain. * Elevated liver enzymes. Plan: * Patient apparently has recent MS exacerbation noted by her neurologist. Continue Solu-Medrol 250 mg IVPB every 6 hours for 3 days for possible MS exacerbation. Patient will receive her last dose of Solu-Medrol at noon today. No need for oral tapering down dose of prednisone thereafter . * Patient to follow up with her neurologist as outpatient after discharge. * Neurology will sign off. * Please call neurology if any concerns.
[2019-05-17 12:13] LABS: Glucose,Whole Blood 220 mg/dL (75-99)
[2019-05-17 16:30] LABS: Glucose,Whole Blood 144 mg/dL (75-99)
[2019-05-17] MEDS: MONTELUKAST 10 MG TAB PO SCH (17:36)
[2019-05-17] MEDS: FERROUS SULFATE 325 MG TAB PO SCH (17:36)
[2019-05-17] MEDS: BACLOFEN 10 MG TAB PO SCH (17:36)
[2019-05-17] MEDS ORDERED: WARFARIN 2 MG TAB PO ONE (18:00)
--- NOTE | 2019-05-17 18:35 | PN ---
PROGRESS NOTE DATE OF DICTATION: 05/17/2019 The patient is a 63-year-old pleasant white female admitted to the hospital with epigastric pain and chest pain and was noted to have elevated serum transaminases. Her serum transaminases are gradually improving. Her abdominal pain is improving. She had an MRCP done that did not show any CBD stone. Overall, patient is doing much better. PHYSICAL EXAMINATION: She appears comfortable, in no apparent distress. Vital signs are stable. Blood pressure 126/71, pulse rate 67, temperature 98. HEENT examination unremarkable. Conjunctivae pink. Sclerae anicteric. Oral cavity no lesions. NECK: No JVD or lymph node enlargement. CHEST: Clear to auscultation. HEART: Regular rate and rhythm. ABDOMEN: Soft. Bowel sounds are positive. Mild tenderness in the epigastric area. EXTREMITIES: No pedal edema. SKIN: No rashes. NEUROLOGIC: Alert and oriented x3. No focal deficits. IMPRESSION: 1. Epigastric pain/chest pain with elevated liver function tests, gradually improving. MRCP did not show any evidence of CBD stones. 2. History of cerebrovascular accident in the past. 3. History of multiple sclerosis with possible exacerbation. RECOMMENDATIONS: 1. In regards to the elevated serum transaminases, since they are significantly improving we will continue to monitor them closely. 2. Continue with the current management with IV steroids for MS exacerbation. 3. Advance diet as tolerated. 4. Will follow with you closely. MMPATRICIAL / IJN: [id number] /
[2019-05-17] MEDS ORDERED: INSULIN ASPART (NovoLOG) 100 UNIT/ML VIAL SQ ONE (20:23)
[2019-05-17 20:26] LABS: Glucose,Whole Blood 359 mg/dL (75-99)
[2019-05-17] MEDS: PRAVASTATIN SODIUM 20 MG TAB PO SCH (20:43)
[2019-05-17] MEDS: CITALOPRAM HYDROBROMIDE 20 MG TAB PO SCH (20:43)
[2019-05-18] MEDS: SODIUM CHLORIDE 0.9% 1,000 ML IV SCH (01:52)
[2019-05-18] MEDS: LEVOTHYROXINE 75 MCG TAB PO SCH (05:38)
[2019-05-18] MEDS: PANTOPRAZOLE 40 MG TABLET PO SCH (05:38)
[2019-05-18 05:40] LABS: Basophils # (A) 0.1 k/uL (0-0.2); Basophils % (A) 1 %; Eosinophils % (A) 0 %; HCT 30.6 % (34.0-46.0); HGB 10.7 gm/dL (11.4-16.0); Lymphocytes # (A) 0.4 k/uL (1.0-4.8); Lymphocytes % (A) 4 %; MCH 31.4 pg (25.0-35.0); MCHC 35.1 g/dL (31.0-37.0); MCV 89.7 fL (80.0-100.0); Mean Platelet Volume 10.3; Monocytes # (A) 0.5 k/uL (0-1.0); Monocytes % (A) 5 %; Neutrophils # (A) 9.4 k/uL (1.3-7.7); Neutrophils % (A) 89 %; RBC 3.42 m/uL (3.80-5.40); RDW 13.6 % (11.5-15.5); WBC 10.5 k/uL (3.8-10.6)
[2019-05-18 05:42] LABS: Platelet Count 77 k/uL (150-450)
[2019-05-18 05:45] LABS: INR 2.4 (<1.2); Prothrombin Time 23.3 sec (9.0-12.0)
[2019-05-18 06:10] LABS: Albumin 2.9 g/dL (3.5-5.0); Calcium 8.6 mg/dL (8.4-10.2); Potassium 4.5 mmol/L (3.5-5.1); Total Bilirubin 0.4 mg/dL (0.2-1.3)
[2019-05-18 07:11] LABS: Glucose,Whole Blood 145 mg/dL (75-99)
[2019-05-18] MEDS: FOLIC ACID 1 MG TAB PO SCH (09:31)
[2019-05-18] MEDS: PREGABALIN 100 MG CAP PO SCH (09:32)
[2019-05-18] MEDS: ASPIRIN 81 MG PO SCH (09:32)
[2019-05-18] MEDS: POTASSIUM CHLORIDE ER 20 MEQ TAB.ER PO SCH (09:32)
[2019-05-18] MEDS: CHOLECALCIFEROL 1,000 UNIT TAB PO SCH (09:32)
[2019-05-18] MEDS: METHYLPHENIDATE HCL 10 MG TAB PO SCH ×2 (09:32→12:43)
[2019-05-18] MEDS: LORATADINE 10 MG TAB PO SCH (09:32)
[2019-05-18] MEDS: FLUTICASONE 50MCG/SPRAY NASAL 16GM EA NOSTRIL SCH (09:33)
[2019-05-18] MEDS: INSULIN ASPART (NovoLOG) 100 UNIT/ML VIAL SQ SCH ×2 (09:33→13:10)
--- NOTE | 2019-05-18 09:49 | PN ---
PROGRESS NOTE The patient is a 63-year-old pleasant white female admitted to hospital 5 days ago with chest pain, abdominal pain, noted to have elevated LFTs which are gradually improving. She denies any symptoms today. She is presently on IV steroids for exacerbation of MS. She also has prior history of stroke with right-sided weakness and history of PE on anticoagulation. This morning, she is feeling better. She denies any symptoms. PHYSICAL EXAMINATION: She appears comfortable in no apparent distress. Vital signs stable. Blood pressure 132/86, pulse rate 51, temperature 97.7. HEENT examination unremarkable. Conjunctivae pink. Sclerae anicteric. Oral cavity no lesions. NECK: No JVD or lymph node enlargement. CHEST: Clear to auscultation. HEART: Regular rate and rhythm. ABDOMEN: Soft. There was mild tenderness in the epigastric area. Bowel sounds are positive. No organomegaly. EXTREMITIES: No pedal edema. SKIN: No rashes. NEUROLOGIC: Alert and oriented x3. LAB: From today AST normal, ALT 156, alkaline phosphatase 116, T-bilirubin 0.4. CBC, WBC 10.5, hemoglobin 10.7, platelets 77,000. INR 2.4. IMPRESSION: 1. Epigastric pain/chest pain elevated LFTs, possible CBD stone that has passed spontaneously. MRCP was negative. Status post gallbladder surgery many years ago. 2. Exacerbation of asthma on IV steroids. 3. History of deep vein thrombosis/pulmonary embolism on oral anticoagulation with Coumadin. 4. History of cerebrovascular accident in the past with right-sided hemiparesis. RECOMMENDATIONS: 1. Continue with current management. 2. Monitor LFTs on a daily basis. 3. We will follow with you closely. Thank you for this consultation. MMODL / IJN: [id number] /
[2019-05-18 11:27] LABS: Glucose,Whole Blood 275 mg/dL (75-99)
[2019-05-18 11:36] VITALS: BP 131/73; PULSE 72; RESP 17; TEMP 97.5
[2019-05-18] MEDS: NON FORMULARY DRUG (Dimethyl Fumarate [Tecfidera] 240 MG) PO SCH (12:16)
--- NOTE | 2019-05-18 14:19 | P.DS ---
Providers Date of admission: 05/13/19 09:37 Expected date of discharge: 05/18/19 Attending physician: Sarah Paredes Consults: 05/11/19 14:25 Consult Physician Routine Consulting Provider: Diaz Dowling Consult Reason/Comments: CP Do you want consulting provider notified?: Yes 05/13/19 13:24 Consult Physician Routine Consulting Provider: Jewell Villasenor Consult Reason/Comments: possible MS exacerbation Do you want consulting provider notified?: Yes 05/13/19 13:25 Consult Physician Routine Consulting Provider: Lukas Fleming Consult Reason/Comments: elevated liver enzymes Do you want consulting provider notified?: Yes Primary care physician: Sarah [facility] Course: Diagnosis on discharge: #1 episode of chest pain, serial EKGs and cardiac enzymes are ordered cardiology consultation requested. Per cardiology acute coronary event has been ruled out. Recent stress test in the office unremarkable. Pain is atypical for angina. #2 history of pulmonary embolism INR on presentation was 2.1 D-dimer on presentation less than 0.17. INR today 3.5. Pharmacy to dose. #3 underlying history of multiple sclerosis with worsening weakness in the lower extremities. Per neurology services no signs of CVA or definitive MS exacerbation. Patient to follow-up with outpatient neurology and high-dose prednisone treatment possible MS exacerbation. Discussed case with Dr. arrington per neurology. Patient on day 2 of 3 of Solu-Medrol 250 mg every 6 hours for possible MS exacerbation. Weakness improving. #4 acute renal insufficiency was elevated BUN at 43 elevated creatinine at 1.2 ultrasound of kidneys renal and bladder completed showing slight limited evaluation of the left kidney due to overlying bowel gas evidence of hydronephrosis or nephrolithiasis. No sonographic sequela of chronic medical renal disease. Creatinine is 1.38 from 1.18. We'll hold Lasix today. Repeat labs tomorrow start on normal saline 50 MLS per hour. #5 previous history of stroke with residual right sided weakness #6 chronic pain patient is maintained on fentanyl and [place] #7 underlying history of obstructive sleep apnea patient is unable to tolerate CPAP machine #8. Elevated liver enzymes Tylenol on hold ultrasound ordered. GI service is consulted. Ultrasound of gallbladder completed showing limited exam with suboptimal visualization of the abdominal structures. The liver does demonstrate heterogenous hepatic echotexture most commonly related to hepatic steatosis. There is obscuration of the pancreas. Common bile duct and portions of the liver. AST 105 ALT 559 and alkaline phosphatase 167 these numbers do appear to be trending down. GI services are following. Acute viral hepatitis panel negative. MRCP completed showing, common bile duct dilated at 1.3 cm there is luminal narrowing of the distal portion of the common bile duct sphincter jone no filling defect is identified. Per GI services no plans for ERCP at this present time patient follow-up outpatient in 2 weeks #9. Bruising noted to abdomen likely due to previous Lovenox injections. Injections have since been DC'd. hemoGlobin remained stable DVT prophylaxis Coumadin. GI prophylaxis Protonix Hospital course: Huong Cooper, is a 63-year-old female well known to my practice who presented to [facility] emergency room with a chief complaint of chest pain patient describes a pressure sensation in the lower part of her chest she is holding her chest with her hands, she states that her pain is better now as compared to the time she came to emergency room. Patient has expressive aphasia due to previous stroke and is difficult to understand but she is clearly complaining of chest pain. She has been seen by cardiology in the past her last stress test was in October 2018 which was reported as negative. Patient has a known history of stroke in the past with right sided weakness, she also has a known history of pulmonary embolism and is maintained on anticoagulation, she also has a known history of multiple sclerosis. On 05/13/2019 patient is alert and oriented 3. Patient is still having some c hest discomfort. Patient was evaluated by cardiology services, per cardiology and acute coronary event has been ruled out. Ultrasound of abdomen and bladder and pelvis ordered. Coumadin remains subtherapeutic. Currently being bridged with Lovenox. Patient denies nausea vomiting or diarrhea. Patient denies shortness breath. Patient denies any urinary burning or frequency On 05/14/2019 patient is currently resting comfortably in bed. Patient still having some discomfort but reports improved. Neurology service is consulted. GI service is consulted for elevated liver enzymes. This time patient denies chest pain or shortness of breath. Patient denies nausea vomiting or diarrhea. Patient denies any urinary burning and frequency. On 05/15/2019 patient is currently resting comfortably in bed. Patient is alert and oriented 3. Patient feels improved. Patient was started on Solu-Medrol per neurology recommendation. Liver enzymes are trending down. GI services are following hepatitis panel and has been ordered. Patient denies chest pain or shortness breath. Patient denies nausea vomiting or diarrhea. Patient denies any urinary burning or frequency. On 05/16/2019 patient is alert sitting up in bed. Patient reports feeling improved today with less weakness. Patient is on day 2 of 3 of Solu-Medrol treatment. Liver enzymes are trending down. GI services have ordered an MRCP, no scheduled time, likely today. INR is 3.5, pharmacy to dose warfarin. Warfarin will be held today. Creatinine is 1.38 from 1.18. Normal saline at 50/ml ordered. Will hold Lasix today and repeat labs . Patient denies chest pain, shortness of breath. Patient denies any nausea, vomiting or diarrhea. Patient denies any urinary burning or frequency. On 05/17/2019 patient is alert and oriented 3. Patient is having some improvement with weakness. Patient's INR today 3.2 pharmacy to dose Coumadin. Patient does have significant bruising to abdomen to previous Lovenox shots that have been DC'd. Patient's creatinine continues to be elevated at 1.40 continue normal saline 50. Patient denies chest pain or shortness of breath. Patient denies nausea vomiting or diarrhea. Patient denies any urinary burning or frequency. Per GI services no plans for ERCP at this time. On 05/18/2019 patient was seen and examined on the medical floor she is alert and oriented 3 in no apparent distress liver enzymes are improving gastroenterology consultation reviewed patient possibly had a stone in the common bile duct but was past no need for further intervention at this time otherwise patient is clinically stable she has completed her 10 doses of IV Solu-Medrol for MS exacerbation patient will be discharged home today she will resume Coumadin 7.5 mg by mouth daily 7 days weekly she will be followed in our office in one week Patient Condition at Discharge: Stable Plan - Discharge Summary New Discharge Prescriptions: New Warfarin Sodium [Coumadin] 7.5 mg PO DAILY 30 Days #30 tablet Continue Baclofen [Lioresal] 10 mg PO DAILY@1700 Aspirin 81 mg PO DAILY@0900 Montelukast [Singulair] 10 mg PO DAILY@1700 Furosemide [Lasix] 40 mg PO BID@0900,1700 Potassium Chloride 20 meq PO BID@0900,1700 Citalopram Hydrobromide [CeleXA] 40 mg PO HS@2100 Nitroglycerin Sl Tabs [Nitrostat] 0.4 mg SUBLINGUAL Q5M PRN PRN Reason: Chest Pain Pantoprazole Sodium [Protonix] 40 mg PO DAILY@0600 Ferrous Sulfate [Feosol] 325 mg PO DAILY@1700 Cholecalciferol [Vitamin D3 (25 Mcg = 1000 Iu)] 2,000 unit PO DAILY@0900 Pravastatin Sodium [Pravachol] 20 mg PO HS@2100 Methylphenidate HCl [Ritalin] 20 mg PO BID@0900,1200 Fluticasone Nasal Juda [Flonase Nasal Juda] 1 spray EA NOSTRIL BID@0900,2100 fentaNYL [Fentanyl] 25 mcg TRANSDERM Q72H Pregabalin [Lyrica] 100 mg PO TID@0900,1700,2099 Folic Acid 0.4 mg PO DAILY@0900 Dimethyl Fumarate [Tecfidera] 240 mg PO BID Levothyroxine Sodium [Levoxyl] 75 mcg PO DAILY@0900 Fexofenadine HCl 180 mg PO DAILY HYDROcodone/APAP 5-325MG [Deltaville 5-325] 1 tab PO Q6HR PRN PRN Reason: Pain Discontinued Warfarin [Coumadin] 10 mg PO SUWE Warfarin [Coumadin] 7.5 mg PO MOTUTHFR Discharge Medication List Aspirin 81 mg PO DAILY@0900 11/08/13 [History] Baclofen [Lioresal] 10 mg PO DAILY@169911/08/13 [History] Citalopram Hydrobromide [CeleXA] 40 mg PO HS@2100 11/08/13 [History] Ferrous Sulfate [Feosol] 325 mg PO DAILY@169911/08/13 [History] Furosemide [Lasix] 40 mg PO BID@0900,1700 11/08/13 [History] Montelukast [Singulair] 10 mg PO DAILY@169911/08/13 [History] Nitroglycerin Sl Tabs [Nitrostat] 0.4 mg SUBLINGUAL Q5M PRN 11/08/13 [History] Pantoprazole Sodium [Protonix] 40 mg PO DAILY@0600 11/08/13 [History] Potassium Chloride 20 meq PO BID@0900,1700 11/08/13 [History] Cholecalciferol [Vitamin D3 (25 Mcg = 1000 Iu)] 2,000 unit PO DAILY@0900 11/18/15 [History] Fluticasone Nasal Juda [Flonase Nasal Juda] 1 spray EA NOSTRIL BID@0900,2100 11/18/15 [History] Methylphenidate HCl [Ritalin] 20 mg PO BID@0900,1200 11/18/15 [History] Pravastatin Sodium [Pravachol] 20 mg PO HS@2100 11/18/15 [History] fentaNYL [Fentanyl] 25 mcg TRANSDERM Q72H 11/18/15 [History] Pregabalin [Lyrica] 100 mg PO TID@0900,1700,2100 07/13/16 [History] Folic Acid 0.4 mg PO DAILY@0900 08/18/16 [History] Dimethyl Fumarate [Tecfidera] 240 mg PO BID 04/04/18 [History] Fexofenadine HCl 180 mg PO DAILY 05/11/19 [History] HYDROcodone/APAP 5-325MG [[place] 5-325] 1 tab PO Q6HR PRN 05/11/19 [History] Levothyroxine Sodium [Levoxyl] 75 mcg PO DAILY@0900 05/11/19 [History] Warfarin Sodium [Coumadin] 7.5 mg PO DAILY 30 Days #30 tablet 05/18/19 [Rx] Follow up Appointment(s)/Referral(s): [facility], [NON-STAFF] - Yolanda Elizabeth MD [Medical Doctor] - 1 Week Sarah Paredes MD [Primary Care Provider] - 1-2 days Diaz Dowling MD [STAFF PHYSICIAN] - 06/06/19 3:00 pm Patient Instructions/Handouts: Chest Pain (DC), MRCP (Magnetic Resonance Cholangiopancreatography) (DC)
[2019-05-18] MEDS ORDERED: WARFARIN 3 MG TAB PO ONE (18:00)
== END 2019-05-18 15:15 | disposition home health service (06) | DRG 445 ==
LOC: EC 12:35 → 3SCARD 14:24 → OBSVTOIN 05-13 09:37 → 3NMEDONC 05-18 00:18
PROVIDERS: ADMIT Internal Medicine; ATTEND Internal Medicine
DX: K80.50 Calculus of bile duct without cholangitis or cholecystitis without obstruction (principal); I48.92 Unspecified atrial flutter; I69.351 Hemiplegia and hemiparesis following cerebral infarction affecting right dominant side; J45.901 Unspecified asthma with (acute) exacerbation; R07.9 Chest pain, unspecified; E66.9 Obesity, unspecified; E78.5 Hyperlipidemia, unspecified; G35 Multiple sclerosis; G47.33 Obstructive sleep apnea (adult) (pediatric); G89.29 Other chronic pain; I69.320 Aphasia following cerebral infarction; K76.0 Fatty (change of) liver, not elsewhere classified; M79.7 Fibromyalgia; Z68.34 Body mass index [BMI] 34.0-34.9, adult; Z79.01 Long term (current) use of anticoagulants; Z79.82 Long term (current) use of aspirin; Z79.890 Hormone replacement therapy; Z79.891 Long term (current) use of opiate analgesic; Z79.899 Other long term (current) drug therapy; Z82.49 Family history of ischemic heart disease and other diseases of the circulatory system; Z82.62 Family history of osteoporosis; Z83.3 Family history of diabetes mellitus; Z86.711 Personal history of pulmonary embolism; Z86.718 Personal history of other venous thrombosis and embolism; Z90.710 Acquired absence of both cervix and uterus; Z91.19 Patient's noncompliance with other medical treatment and regimen; N28.9 Disorder of kidney and ureter, unspecified
CPT/HCPCS: 36415; 71046; 74181; 76705; 76770; 80053; 80074; 82103; 82105; 82390; 83516; 83540; 83550; 83690; 83735; 83880; 84132; 84484; 85025; 85379; 85610; 85730; 86038; 86376; 93005; 99285

== ENCOUNTER 2019-12-12 17:08 | Inpatient (IN) | payer MEDICARE, OTHER ==
[2019-12-12 19:23] LABS: Basophils % (A) 0 %; Eosinophils # (A) 0.1 k/uL (0-0.7); Eosinophils % (A) 2 %; HGB 14.3 gm/dL (11.4-16.0); Lymphocytes # (A) 0.5 k/uL (1.0-4.8); Lymphocytes % (A) 11 %; MCH 31.2 pg (25.0-35.0); MCV 91.8 fL (80.0-100.0); Mean Platelet Volume 11.6; Monocytes # (A) 0.2 k/uL (0-1.0); Monocytes % (A) 5 %; Neutrophils # (A) 3.6 k/uL (1.3-7.7); Neutrophils % (A) 80 %; Platelet Count 102 k/uL (150-450); RBC 4.57 m/uL (3.80-5.40); RDW 13.9 % (11.5-15.5); WBC 4.5 k/uL (3.8-10.6)
[2019-12-12 19:28] LABS: Albumin 4.3 g/dL (3.5-5.0); Calcium 9.6 mg/dL (8.4-10.2); INR 2.1 (<1.2); Prothrombin Time 20.1 sec (9.0-12.0); Total Bilirubin 0.8 mg/dL (0.2-1.3); Total Protein 6.6 g/dL (6.3-8.2)
[2019-12-12 20:37] LABS: Glucose,Whole Blood 127 mg/dL (75-99)
[2019-12-12] MEDS ORDERED: WARFARIN PO SCH (22:45)
[2019-12-13] MEDS: PANTOPRAZOLE 40 MG TABLET PO SCH (05:13)
[2019-12-13] MEDS ORDERED: Dimethyl Fumarate [Tecfidera] PO SCH (06:00)
[2019-12-13 07:14] LABS: INR 1.9 (<1.2); Prothrombin Time 18.4 sec (9.0-12.0)
[2019-12-13 08:26] LABS: Glucose,Whole Blood 184 mg/dL (75-99)
[2019-12-13] MEDS: INSULIN ASPART (NovoLOG) 100 UNIT/ML VIAL SQ SCH ×4 (08:37→20:39)
[2019-12-13] MEDS: Dimethyl Fumarate [Tecfidera] PO SCH ×2 (08:38→20:39)
[2019-12-13] MEDS: CHOLECALCIFEROL 1,000 UNIT TAB PO SCH (08:38)
[2019-12-13] MEDS: ASPIRIN 81 MG PO SCH (08:38)
[2019-12-13] MEDS: FLUTICASONE 50MCG/SPRAY NASAL 16GM EA NOSTRIL SCH (08:38)
[2019-12-13] MEDS: METHYLPHENIDATE HCL 10 MG TAB PO SCH ×2 (08:39→12:53)
[2019-12-13] MEDS: FUROSEMIDE 40 MG TAB PO SCH ×2 (08:39→17:21)
[2019-12-13] MEDS: FOLIC ACID 1 MG TAB PO SCH (08:39)
[2019-12-13] MEDS: PREGABALIN 100 MG CAP PO SCH ×3 (08:39→20:40)
[2019-12-13] MEDS: POTASSIUM CHLORIDE ER 20 MEQ TAB.ER PO SCH ×2 (08:39→17:21)
[2019-12-13] MEDS: LEVOTHYROXINE 75 MCG TAB PO SCH (08:39)
[2019-12-13 11:43] LABS: Glucose,Whole Blood 297 mg/dL (75-99)
--- NOTE | 2019-12-13 13:53 | P.HPIM ---
History of Present Illness H&P Date: 12/13/19 Chief Complaint: Multiple sclerosis exacerbation Huong Cooper, is a 64-year-old female who presented to the office with severe weakness with general decline in her functional status, patient has been staying in bed and hardly able to get up or move, she had similar episodes in the past due to her advanced MS and she benefited from admission with IV steroids use. Patient was admitted directly to medical floor, she was started on IV Solu- Medrol 250 mg every 6 hours, consultation for neurology was initiated. Patient has a known history of advanced multiple sclerosis, she also has a known history of hypertension, hyperlipidemia, hypothyroidism, and previous history of lower extremity DVT and pulmonary embolism maintained on Coumadin. Patient also has known history of stroke with residual right sided weakness and right sided hypersensitivity to touch. Patient was seen and examined on the medical floor, she is alert and oriented in no apparent distress, there is no fever or chills no headache or dizziness no chest pain no shortness of breath no cough no nausea or vomiting no abdominal pain no diarrhea no burning was urination no frequency or urgency no hematuria. Past Medical History Past Medical History: Chest Pain / Angina, CVA/TIA, Fibromyalgia, Musculoskeletal Disorder, Neurologic Disorder, Osteoarthritis (OA), Pulmonary Embolus (PE), Sleep Apnea/CPAP/BIPAP, Thyroid Disorder Additional Past Medical History / Comment(s): MULTIPLE SCLEROSIS, 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 PAINFUL FOR HER TO LIE FLAT. HX OF NOSEBLEED JUL 2014 AND RECEIVED PLASMA TRANSFUSION. History of Any Multi-Drug Resistant Organisms: VRE Date of last positivie culture/infection: 10/24/09 confirmed with infectious disease nurse on 08/18/16. MDRO Source:: URINE Past Surgical History: Ablation, Appendectomy, Cholecystectomy, Hernia Repair, Hysterectomy Additional Past Surgical History / Comment(s): Incisional hernia repair, lapa roscopic lysis of adhesions in 1987, ganglion cyst removal of the left wrist, patent foramen ovale patch in 2006, RF ablation for back pain. Past Anesthesia/Blood Transfusion Reactions: No Reported Reaction Past Psychological History: Depression Additional Psychological History / Comment(s): CELEXA to help sleep at night per . PT HAS DIFFICULTY W/SPEECH . HAS TO LOOK AT DIETARY MENU TO ORDER CAN'T DO IT BY PHONE. Pt resides with her spouse. She uses a cane to ambulate. She also has a walker.cpap machine Spouse drives her to appointments. Spouse assists her with some ADLs when needed. Smoking Status: Never smoker Past Alcohol Use History: None Reported Past Drug Use History: None Reported Additional Drug Use History / Comment(s): Lives at home with her requires some assistance with ADLs at times - Past Family History Mother Family Medical History: Hypertension Additional Family Medical History / Comment(s): osteoporosis Father Family Medical History: Dementia, Diabetes Mellitus Medications and Allergies Home Medications Medication Instructions Recorded Confirmed Type Aspirin 81 mg PO DAILY@0911/08/13 12/12/19 History Baclofen [Lioresal] 10 mg PO DAILY@169911/08/13 12/12/19 History Citalopram Hydrobromide [CeleXA] 40 mg PO HS@209911/08/13 12/12/19 History Ferrous Sulfate [Feosol] 325 mg PO DAILY@169911/08/13 12/12/19 History Furosemide [Lasix] 40 mg PO BID@0900,1700 11/08/13 12/12/19 History Montelukast [Singulair] 10 mg PO DAILY@169911/08/13 12/12/19 History Pantoprazole Sodium [Protonix] 40 mg PO DAILY@0600 11/08/13 12/12/19 History Potassium Chloride 20 meq PO BID@0900,1700 11/08/13 12/12/19 History Cholecalciferol [Vitamin D3 (25 2,000 unit PO DAILY@0911/18/15 12/12/19 History Mcg = 1000 Iu)] Fluticasone Nasal Weir [Flonase 1 spray EA NOSTRIL DAILY@0911/18/15 12/12/19 History Nasal Weir] Methylphenidate HCl [Ritalin] 20 mg PO BID@0900,1200 11/18/15 12/12/19 History Pravastatin Sodium [Pravachol] 20 mg PO HS@209911/18/15 12/12/19 History Pregabalin [Lyrica] 100 mg PO TID@0900,1700,209907/13/16 12/12/19 History Folic Acid 0.4 mg PO DAILY@0908/18/16 12/12/19 History Fexofenadine HCl 180 mg PO DAILY@1700 05/11/19 12/12/19 History Levothyroxine Sodium [Levoxyl] 75 mcg PO DAILY@0900 05/11/19 12/12/19 History Dimethyl Fumarate [Tecfidera] 240 mg PO BID 12/13/19 12/13/19 History Warfarin [Coumadin] 7.5 mg PO DIRECTED 12/13/19 12/13/19 History Warfarin [Coumadin] 10 mg PO DIRECTED 12/13/19 12/13/19 History Allergies Allergy/AdvReac Type Severity Reaction Status Date / Time adhesive Allergy SKIN Verified 05/11/19 14:25 PEELING Physical Exam Vitals: Vital Signs Temp Pulse Resp BP Pulse Ox 12/13/19 12:16 98 F 63 18 111/71 98 12/13/19 05:00 97.7 F 59 L 16 101/57 94 L 12/12/19 20:31 96.4 F L 71 18 100/53 94 L Intake and Output 12/12/19 12/13/19 12/13/19 22:59 06:59 14:59 Other: Voiding Method Toilet # Voids 1 2 1 Weight 92.986 kg In general patient is alert and oriented 3 in no apparent distress HEENT head normocephalic and atraumatic Neck is supple no JVD no goiter no lymphadenopathy Chest exam reveals a few scattered rhonchi bilaterally no wheezing Cardiac exam reveals regular heart sounds S1 and S2 no gallops no murmurs Abdomen is soft nontender no organomegaly with normal bowel sounds Extremity exam reveals no edema no cyanosis or clubbing Neurological examination reveals generalized weakness without any new focal deficit Results CBC & Chem 7: 12/12/19 19:00 12/12/19 19:00 Labs: Abnormal Lab Results - Last 24 Hours (Table) 12/12/19 12/12/19 12/12/19 Range/Units 19:00 19:00 19:00 Plt Count 102 L (150-450) k/uL Lymphocytes # 0.5 L (1.0-4.8) k/uL PT 20.1 H (9.0-12.0) sec INR 2.1 H (<1.2) BUN 30 H (7-17) mg/dL Creatinine 1.25 H (0.52-1.04) mg/dL POC Glucose (mg/dL) (75-99) mg/dL 12/12/19 12/13/19 12/13/19 Range/Units 20:35 06:16 08:14 Plt Count (150-450) k/uL Lymphocytes # (1.0-4.8) k/uL PT 18.4 H (9.0-12.0) sec INR 1.9 H (<1.2) BUN (7-17) mg/dL Creatinine (0.52-1.04) mg/dL POC Glucose (mg/dL) 127 H 184 H (75-99) mg/dL 12/13/19 Range/Units 11:28 Plt Count (150-450) k/uL Lymphocytes # (1.0-4.8) k/uL PT (9.0-12.0) sec INR (<1.2) BUN (7-17) mg/dL Creatinine (0.52-1.04) mg/dL POC Glucose (mg/dL) 297 H (75-99) mg/dL Thrombosis Risk Factor Assmnt - Choose All That Apply Any of the Below Risk Factors Present?: No Other Risk Factors: Yes Each Risk Factor Represents 2 Points: Age 61-74 years Each Risk Factor Represents 3 Points: History of DVT/PE Other congenital or acquired thrombophilia - If yes, enter type in comment: No Thrombosis Risk Factor Assessment Total Risk Factor Score: 5 Thrombosis Risk Factor Assessment Level: High Risk Assessment and Plan Plan: 1. Acute exacerbation of multiple sclerosis, patient is admitted to medical floor, she was started on Solu-Medrol 250 mg IV every 6 hours for 10 doses 2. Hyperglycemia due to steroid use, patient was started on subcu insulin per sliding scale 3. Previous history of deep venous thrombosis and pulmonary embolism maintained on Coumadin continue 4. Underlying history of hypothyroidism maintained on Synthroid continue 5. Slight elevation in BUN and creatinine will monitor kidney function 6. Underlying history of depression maintained on Celexa continue Will check urine analysis and chest x-ray to rule out any infectious process Continue with current medication otherwise Obtain neurology consultation Will follow closely
--- NOTE | 2019-12-13 14:12 | XR ---
EXAMINATION TYPE: XR chest 1V DATE OF EXAM: 12/13/2019 COMPARISON: 05/11/2019 HISTORY: Pain TECHNIQUE: Single frontal view of the chest is obtained. FINDINGS: Subsegmental consolidation and small effusions. Heart size borderline. No pneumothorax. Li mited inspiration. Degenerative changes of the spine. IMPRESSION: 1. Bilateral lower lobe infiltrate and small effusion correlate for pneumonia versus mild venous rios estion.
[2019-12-13] MEDS ORDERED: HYDROmorphone 0.5 MG/0.5 ML SYRINGE IVP PRN (16:11)
[2019-12-13 17:14] LABS: Glucose,Whole Blood 148 mg/dL (75-99)
[2019-12-13] MEDS: BACLOFEN 10 MG TAB PO SCH (17:21)
[2019-12-13] MEDS: LORATADINE 10 MG TAB PO SCH (17:21)
[2019-12-13] MEDS: FERROUS SULFATE 325 MG TAB PO SCH (17:21)
[2019-12-13] MEDS: MONTELUKAST 10 MG TAB PO SCH (17:31)
[2019-12-13 17:59] LABS: Appearance,Urine Clear (Clear); Bilirubin,Urine Negative (Negative); Blood,Urine Negative (Negative); Color,Urine Yellow; Glucose,Urine (UA) Negative (Negative); Hyaline Casts,Urine 1 /lpf (0-2); Ketones,Urine Negative (Negative); Leukocyte Esterase,Urine Small (Negative); Mucus,Urine Rare /hpf; Nitrite,Urine Negative (Negative); PH, Urine 5.5 (5.0-8.0); Protein,Urine Negative (Negative); RBC,Urine 1 /hpf (0-5); Specific Gravity,Urine 1.012 (1.001-1.035); Squamous Epithelial Cell,Urine 1 /hpf (0-4); Urobilinogen,Urine <2.0 mg/dL (<2.0); WBC,Urine 9 /hpf (0-5)
[2019-12-13] MEDS ORDERED: WARFARIN 7.5 MG TAB PO ONE (18:00)
[2019-12-13 20:08] LABS: Glucose,Whole Blood 280 mg/dL (75-99)
[2019-12-13] MEDS: CITALOPRAM HYDROBROMIDE 20 MG TAB PO SCH (20:38)
[2019-12-13] MEDS: PRAVASTATIN SODIUM 20 MG TAB PO SCH (20:39)
[2019-12-14] MEDS: PANTOPRAZOLE 40 MG TABLET PO SCH (05:45)
[2019-12-14 07:11] LABS: Basophils % (A) 0 %; Eosinophils # (A) 0.1 k/uL (0-0.7); Eosinophils % (A) 1 %; HCT 39.4 % (34.0-46.0); HGB 13.4 gm/dL (11.4-16.0); Lymphocytes # (A) 0.6 k/uL (1.0-4.8); Lymphocytes % (A) 11 %; MCH 31.3 pg (25.0-35.0); MCV 92.1 fL (80.0-100.0); Mean Platelet Volume 11.7; Monocytes # (A) 0.1 k/uL (0-1.0); Monocytes % (A) 1 %; Neutrophils # (A) 4.8 k/uL (1.3-7.7); Neutrophils % (A) 86 %; RBC 4.28 m/uL (3.80-5.40); RDW 13.9 % (11.5-15.5); WBC 5.5 k/uL (3.8-10.6)
[2019-12-14 07:12] LABS: Platelet Count 94 k/uL (150-450)
[2019-12-14 07:21] LABS: INR 2.3 (<1.2); Prothrombin Time 22.7 sec (9.0-12.0)
[2019-12-14 07:48] LABS: Albumin 3.8 g/dL (3.5-5.0); Calcium 9.1 mg/dL (8.4-10.2); Potassium 4.5 mmol/L (3.5-5.1); Total Bilirubin 0.7 mg/dL (0.2-1.3); Total Protein 6.1 g/dL (6.3-8.2)
[2019-12-14] MEDS: FOLIC ACID 1 MG TAB PO SCH (09:02)
[2019-12-14] MEDS: PREGABALIN 100 MG CAP PO SCH ×3 (09:02→21:29)
[2019-12-14] MEDS: LEVOTHYROXINE 75 MCG TAB PO SCH (09:03)
[2019-12-14] MEDS: METHYLPHENIDATE HCL 10 MG TAB PO SCH ×2 (09:03→13:01)
[2019-12-14] MEDS: POTASSIUM CHLORIDE ER 20 MEQ TAB.ER PO SCH ×2 (09:03→16:13)
[2019-12-14] MEDS: FUROSEMIDE 40 MG TAB PO SCH ×2 (09:03→16:13)
[2019-12-14] MEDS: CHOLECALCIFEROL 1,000 UNIT TAB PO SCH (09:03)
[2019-12-14] MEDS: FLUTICASONE 50MCG/SPRAY NASAL 16GM EA NOSTRIL SCH (09:03)
[2019-12-14] MEDS: INSULIN ASPART (NovoLOG) 100 UNIT/ML VIAL SQ SCH ×4 (09:04→21:30)
[2019-12-14] MEDS: Dimethyl Fumarate [Tecfidera] PO SCH ×2 (09:04→21:29)
[2019-12-14] MEDS: ASPIRIN 81 MG PO SCH (09:04)
[2019-12-14 11:39] LABS: Glucose,Whole Blood 197 mg/dL (75-99)
--- NOTE | 2019-12-14 14:40 | P.PN ---
Subjective Progress Note Date: 12/14/19 Huong Cooper, is a 64-year-old female who presented to the office with severe weakness with general decline in her functional status, patient has been staying in bed and hardly able to get up or move, she had similar episodes in the past due to her advanced MS and she benefited from admission with IV steroids use. Patient was admitted directly to medical floor, she was started on IV Solu- Medrol 250 mg every 6 hours, consultation for neurology was initiated. Patient has a known history of advanced multiple sclerosis, she also has a known history of hypertension, hyperlipidemia, hypothyroidism, and previous history of lower extremity DVT and pulmonary embolism maintained on Coumadin. Patient also has known history of stroke with residual right sided weakness and right sided hypersensitivity to touch. Patient was seen and examined on the medical floor, she is alert and oriented in no apparent distress, there is no fever or chills no headache or dizziness no chest pain no shortness of breath no cough no nausea or vomiting no abdominal pain no diarrhea no burning was urination no frequency or urgency no hematuria. On 12/14/2019 patient was seen and examined on the medical floor she is alert and oriented 3 in no apparent distress she is still complaining of generalized weakness and complaining of back pain otherwise she denies any complaints there is no fever or chills no headache or dizziness no chest pain no shortness of breath no cough no nausea or vomiting no abdominal pain no diarrhea no burning was urination no frequency or urgency no hematuria Objective - Vital Signs Vital signs: Vital Signs Temp 97.5 F L 12/14/19 04:20 Pulse 88 12/14/19 04:20 Resp 20 12/14/19 04:20 BP 112/66 12/14/19 04:20 Pulse Ox 97 12/14/19 04:20 Intake & Output 12/13/19 12/14/19 12/14/19 18:59 06:59 18:59 Intake Total 250 Balance 250 Intake: Oral 250 Other: Voiding Method Toilet # Voids 1 1 - Exam In general patient is alert and oriented 3 in no apparent distress HEENT head normocephalic and atraumatic Neck is supple no JVD no goiter no lymphadenopathy Chest exam reveals a few scattered rhonchi bilaterally no wheezing Cardiac exam reveals regular heart sounds S1 and S2 no gallops no murmurs Abdomen is soft nontender no organomegaly with normal bowel sounds Extremity exam reveals no edema no cyanosis or clubbing Neurological examination reveals generalized weakness without any new focal deficit - Labs CBC & Chem 7: 12/14/19 06:56 12/14/19 06:56 Labs: Abnormal Lab Results - Last 24 Hours (Table) 12/13/19 12/13/19 12/13/19 Range/Units 11:28 17:13 17:40 Plt Count (150-450) k/uL Lymphocytes # (1.0-4.8) k/uL PT (9.0-12.0) sec INR (<1.2) BUN (7-17) mg/dL Glucose (74-99) mg/dL POC Glucose (mg/dL) 297 H 148 H (75-99) mg/dL Total Protein (6.3-8.2) g/dL Ur Leukocyte Esterase Small H (Negative) Urine WBC 9 H (0-5) /hpf Urine Mucus Rare H (None) /hpf 12/13/19 12/14/19 12/14/19 Range/Units 20:07 06:56 06:56 Plt Count 94 L (150-450) k/uL Lymphocytes # 0.6 L (1.0-4.8) k/uL PT 22.7 H (9.0-12.0) sec INR 2.3 H (<1.2) BUN (7-17) mg/dL Glucose (74-99) mg/dL POC Glucose (mg/dL) 280 H (75-99) mg/dL Total Protein (6.3-8.2) g/dL Ur Leukocyte Esterase (Negative) Urine WBC (0-5) /hpf Urine Mucus (None) /hpf 12/14/19 Range/Units 06:56 Plt Count (150-450) k/uL Lymphocytes # (1.0-4.8) k/uL PT (9.0-12.0) sec INR (<1.2) BUN 28 H (7-17) mg/dL Glucose 161 H (74-99) mg/dL POC Glucose (mg/dL) (75-99) mg/dL Total Protein 6.1 L (6.3-8.2) g/dL Ur Leukocyte Esterase (Negative) Urine WBC (0-5) /hpf Urine Mucus (None) /hpf Assessment and Plan Plan: 1. Acute exacerbation of multiple sclerosis, patient is admitted to medical floor, she was started on Solu-Medrol 250 mg IV every 6 hours for 10 doses 2. Hyperglycemia due to steroid use, patient was started on subcu insulin per sliding scale 3. Previous history of deep venous thrombosis and pulmonary embolism maintained on Coumadin continue 4. Underlying history of hypothyroidism maintained on Synthroid continue 5. Slight elevation in BUN and creatinine will monitor kidney function 6. Underlying history of depression maintained on Celexa continue Will check urine analysis and chest x-ray to rule out any infectious process Continue with current medication otherwise Obtain neurology consultation Will follow closely
[2019-12-14] MEDS: BACLOFEN 10 MG TAB PO SCH (16:13)
[2019-12-14] MEDS: FERROUS SULFATE 325 MG TAB PO SCH (16:13)
[2019-12-14] MEDS: CITALOPRAM HYDROBROMIDE 20 MG TAB PO SCH (16:13)
[2019-12-14] MEDS: MONTELUKAST 10 MG TAB PO SCH (16:13)
[2019-12-14] MEDS: LORATADINE 10 MG TAB PO SCH (16:13)
[2019-12-14 17:14] LABS: Glucose,Whole Blood 191 mg/dL (75-99)
[2019-12-14] MEDS ORDERED: WARFARIN 7.5 MG TAB PO ONE (18:00)
[2019-12-14 20:45] LABS: Glucose,Whole Blood 255 mg/dL (75-99)
[2019-12-14] MEDS: PRAVASTATIN SODIUM 20 MG TAB PO SCH (21:29)
[2019-12-15] MEDS: PANTOPRAZOLE 40 MG TABLET PO SCH (05:31)
[2019-12-15 07:05] LABS: Basophils % (A) 0 %; Eosinophils % (A) 0 %; HCT 38.4 % (34.0-46.0); HGB 12.5 gm/dL (11.4-16.0); Lymphocytes # (A) 0.6 k/uL (1.0-4.8); Lymphocytes % (A) 12 %; MCH 29.9 pg (25.0-35.0); MCHC 32.6 g/dL (31.0-37.0); MCV 91.9 fL (80.0-100.0); Mean Platelet Volume 12.2; Monocytes # (A) 0.1 k/uL (0-1.0); Monocytes % (A) 1 %; Neutrophils # (A) 4.2 k/uL (1.3-7.7); Neutrophils % (A) 86 %; RBC 4.17 m/uL (3.80-5.40); RDW 14.1 % (11.5-15.5); WBC 4.9 k/uL (3.8-10.6)
[2019-12-15 07:05] LABS: Glucose,Whole Blood 190 mg/dL (75-99)
[2019-12-15 07:10] LABS: Prothrombin Time 29.7 sec (9.0-12.0)
[2019-12-15 07:12] LABS: Platelet Count 93 k/uL (150-450)
[2019-12-15 07:39] LABS: Albumin 3.5 g/dL (3.5-5.0); Calcium 8.5 mg/dL (8.4-10.2); Potassium 3.8 mmol/L (3.5-5.1); Total Bilirubin 0.4 mg/dL (0.2-1.3); Total Protein 5.6 g/dL (6.3-8.2)
[2019-12-15 08:12] LABS: Large Platelets Present
[2019-12-15] MEDS: INSULIN ASPART (NovoLOG) 100 UNIT/ML VIAL SQ SCH ×4 (09:40→21:33)
[2019-12-15] MEDS: ASPIRIN 81 MG PO SCH (09:41)
[2019-12-15] MEDS: CHOLECALCIFEROL 1,000 UNIT TAB PO SCH (09:41)
[2019-12-15] MEDS: LEVOTHYROXINE 75 MCG TAB PO SCH (09:42)
[2019-12-15] MEDS: Dimethyl Fumarate [Tecfidera] PO SCH ×2 (09:42→21:32)
[2019-12-15] MEDS: METHYLPHENIDATE HCL 10 MG TAB PO SCH ×2 (09:42→12:32)
[2019-12-15] MEDS: FLUTICASONE 50MCG/SPRAY NASAL 16GM EA NOSTRIL SCH (09:42)
[2019-12-15] MEDS: FUROSEMIDE 40 MG TAB PO SCH ×2 (09:42→16:23)
[2019-12-15] MEDS: FOLIC ACID 1 MG TAB PO SCH (09:42)
[2019-12-15] MEDS: LORATADINE 10 MG TAB PO SCH (09:43)
[2019-12-15] MEDS: POTASSIUM CHLORIDE ER 20 MEQ TAB.ER PO SCH ×2 (09:43→16:23)
[2019-12-15] MEDS: MONTELUKAST 10 MG TAB PO SCH (09:43)
[2019-12-15] MEDS: PREGABALIN 100 MG CAP PO SCH ×3 (09:43→21:33)
[2019-12-15] MEDS: FERROUS SULFATE 325 MG TAB PO SCH (09:43)
[2019-12-15 11:24] LABS: Glucose,Whole Blood 277 mg/dL (75-99)
[2019-12-15] MEDS: HYDROcodone/APAP 7.5-325MG 1 EACH TAB PO PRN ×2 (12:38→21:33)
--- NOTE | 2019-12-15 13:01 | P.PN ---
Subjective Progress Note Date: 12/15/19 Huong Cooper, is a 64-year-old female who presented to the office with severe weakness with general decline in her functional status, patient has been staying in bed and hardly able to get up or move, she had similar episodes in the past due to her advanced MS and she benefited from admission with IV steroids use. Patient was admitted directly to medical floor, she was started on IV Solu- Medrol 250 mg every 6 hours, consultation for neurology was initiated. Patient has a known history of advanced multiple sclerosis, she also has a known history of hypertension, hyperlipidemia, hypothyroidism, and previous history of lower extremity DVT and pulmonary embolism maintained on Coumadin. Patient also has known history of stroke with residual right sided weakness and right sided hypersensitivity to touch. Patient was seen and examined on the medical floor, she is alert and oriented in no apparent distress, there is no fever or chills no headache or dizziness no chest pain no shortness of breath no cough no nausea or vomiting no abdominal pain no diarrhea no burning was urination no frequency or urgency no hematuria. On 12/14/2019 patient was seen and examined on the medical floor she is alert and oriented 3 in no apparent distress she is still complaining of generalized weakness and complaining of back pain otherwise she denies any complaints there is no fever or chills no headache or dizziness no chest pain no shortness of breath no cough no nausea or vomiting no abdominal pain no diarrhea no burning was urination no frequency or urgency no hematuria On 12/15/2019 patient was seen and examined on the medical floor she is alert and oriented in no apparent distress she is still complaining of back pain and complaining of bilateral lower extremity weakness otherwise she denies any complaints there is no fever or chills no headache or dizziness no chest pain no shortness of breath no cough no nausea or vomiting no abdominal pain no diarrhea no burning was urination no frequency or urgency and no hematuria Objective - Vital Signs Vital signs: Vital Signs Temp 98.3 F 12/15/19 11:33 Pulse 64 12/15/19 11:33 Resp 17 12/15/19 11:33 BP 124/72 12/15/19 11:33 Pulse Ox 94 L 12/15/19 11:33 Intake & Output 12/14/19 12/15/19 12/15/19 18:59 06:59 18:59 Intake Total 240 175 Balance 240 175 Intake: IV 75 KVO 75 Intake, IV Titration 100 Amount methylPREDNISolone SOD 100 SUCC 250 mg In Sodium Chloride 0.9% 100 ml @ 200 mls/hr IVPB Q6HR [facility] Rx#:[id number] Oral 240 Other: Voiding Method Toilet Toilet Toilet # Voids 2 2 - Exam In general patient is alert and oriented 3 in no apparent distress HEENT head normocephalic and atraumatic Neck is supple no JVD no goiter no lymphadenopathy Chest exam reveals a few scattered rhonchi bilaterally no wheezing Cardiac exam reveals regular heart sounds S1 and S2 no gallops no murmurs Abdomen is soft nontender no organomegaly with normal bowel sounds Extremity exam reveals no edema no cyanosis or clubbing Neurological examination reveals generalized weakness without any new focal deficit - Labs CBC & Chem 7: 12/15/19 06:12/15/19 06:28 Labs: Abnormal Lab Results - Last 24 Hours (Table) 12/14/19 12/14/19 12/15/19 Range/Units 17:12 20:44 06:28 Plt Count (150-450) k/uL Lymphocytes # (1.0-4.8) k/uL PT 29.7 H (9.0-12.0) sec INR 3.0 H (<1.2) BUN (7-17) mg/dL Glucose (74-99) mg/dL POC Glucose (mg/dL) 191 H 255 H (75-99) mg/dL Total Protein (6.3-8.2) g/dL 12/15/19 12/15/19 12/15/19 Range/Units 06:28 06:28 07:03 Plt Count 93 L (150-450) k/uL Lymphocytes # 0.6 L (1.0-4.8) k/uL PT (9.0-12.0) sec INR (<1.2) BUN 34 H (7-17) mg/dL Glucose 182 H (74-99) mg/dL POC Glucose (mg/dL) 190 H (75-99) mg/dL Total Protein 5.6 L (6.3-8.2) g/dL 12/15/19 Range/Units 11:23 Plt Count (150-450) k/uL Lymphocytes # (1.0-4.8) k/uL PT (9.0-12.0) sec INR (<1.2) BUN (7-17) mg/dL Glucose (74-99) mg/dL POC Glucose (mg/dL) 277 H (75-99) mg/dL Total Protein (6.3-8.2) g/dL Assessment and Plan Plan: 1. Acute exacerbation of multiple sclerosis, patient is admitted to medical floor, she was started on Solu-Medrol 250 mg IV every 6 hours for 10 doses 2. Hyperglycemia due to steroid use, patient was started on subcu insulin per sliding scale 3. Previous history of deep venous thrombosis and pulmonary embolism maintained on Coumadin continue 4. Underlying history of hypothyroidism maintained on Synthroid continue 5. Slight elevation in BUN and creatinine will monitor kidney function 6. Underlying history of depression maintained on Celexa continue Will check urine analysis and chest x-ray to rule out any infectious process Continue with current medication otherwise Obtain neurology consultation Will follow closely
[2019-12-15] MEDS: BACLOFEN 10 MG TAB PO SCH (16:23)
[2019-12-15 16:54] LABS: Glucose,Whole Blood 89 mg/dL (75-99)
[2019-12-15] MEDS ORDERED: WARFARIN 5 MG TAB PO ONE (18:00)
[2019-12-15 20:27] LABS: Glucose,Whole Blood 274 mg/dL (75-99)
[2019-12-15] MEDS: CITALOPRAM HYDROBROMIDE 20 MG TAB PO SCH (21:32)
[2019-12-15] MEDS: PRAVASTATIN SODIUM 20 MG TAB PO SCH (21:33)
[2019-12-16] MEDS: PANTOPRAZOLE 40 MG TABLET PO SCH (05:49)
[2019-12-16 07:17] LABS: Glucose,Whole Blood 195 mg/dL (75-99)
[2019-12-16 07:59] LABS: Albumin 3.4 g/dL (3.5-5.0); Calcium 8.5 mg/dL (8.4-10.2); Potassium 3.8 mmol/L (3.5-5.1); Total Bilirubin 0.6 mg/dL (0.2-1.3); Total Protein 5.6 g/dL (6.3-8.2)
[2019-12-16 08:09] LABS: INR 2.9 (<1.2); Prothrombin Time 28.5 sec (9.0-12.0)
[2019-12-16] MEDS: FUROSEMIDE 40 MG TAB PO SCH ×2 (08:16→18:18)
[2019-12-16] MEDS: INSULIN ASPART (NovoLOG) 100 UNIT/ML VIAL SQ SCH ×4 (08:16→20:54)
[2019-12-16] MEDS: ASPIRIN 81 MG PO SCH (08:16)
[2019-12-16] MEDS: POTASSIUM CHLORIDE ER 20 MEQ TAB.ER PO SCH ×2 (08:17→18:17)
[2019-12-16] MEDS: CHOLECALCIFEROL 1,000 UNIT TAB PO SCH (08:17)
[2019-12-16] MEDS: PREGABALIN 100 MG CAP PO SCH ×3 (08:17→20:55)
[2019-12-16] MEDS: METHYLPHENIDATE HCL 10 MG TAB PO SCH ×2 (08:17→14:19)
[2019-12-16] MEDS: FOLIC ACID 1 MG TAB PO SCH (08:17)
[2019-12-16] MEDS: LEVOTHYROXINE 75 MCG TAB PO SCH (08:17)
[2019-12-16] MEDS: Dimethyl Fumarate [Tecfidera] PO SCH ×2 (08:18→20:54)
[2019-12-16] MEDS: FLUTICASONE 50MCG/SPRAY NASAL 16GM EA NOSTRIL SCH (08:21)
[2019-12-16 08:27] LABS: Basophils % (A) 0 %; Eosinophils % (A) 1 %; HCT 39.7 % (34.0-46.0); HGB 13.3 gm/dL (11.4-16.0); Lymphocytes # (A) 0.6 k/uL (1.0-4.8); Lymphocytes % (A) 14 %; MCH 31.2 pg (25.0-35.0); MCHC 33.5 g/dL (31.0-37.0); Mean Platelet Volume 12.3; Monocytes # (A) 0.1 k/uL (0-1.0); Monocytes % (A) 3 %; Neutrophils # (A) 3.4 k/uL (1.3-7.7); Neutrophils % (A) 82 %; RBC 4.27 m/uL (3.80-5.40); RDW 14.2 % (11.5-15.5); WBC 4.2 k/uL (3.8-10.6)
[2019-12-16 08:35] LABS: Platelet Count 94 k/uL (150-450)
[2019-12-16 12:24] LABS: Glucose,Whole Blood 239 mg/dL (75-99)
[2019-12-16 17:28] LABS: Glucose,Whole Blood 165 mg/dL (75-99)
--- NOTE | 2019-12-16 17:44 | P.PN ---
Subjective Progress Note Date: 12/16/19 Huong Cooper, is a 64-year-old female who presented to the office with severe weakness with general decline in her functional status, patient has been staying in bed and hardly able to get up or move, she had similar episodes in the past due to her advanced MS and she benefited from admission with IV steroids use. Patient was admitted directly to medical floor, she was started on IV Solu- Medrol 250 mg every 6 hours, consultation for neurology was initiated. Patient has a known history of advanced multiple sclerosis, she also has a known history of hypertension, hyperlipidemia, hypothyroidism, and previous history of lower extremity DVT and pulmonary embolism maintained on Coumadin. Patient also has known history of stroke with residual right sided weakness and right sided hypersensitivity to touch. Patient was seen and examined on the medical floor, she is alert and oriented in no apparent distress, there is no fever or chills no headache or dizziness no chest pain no shortness of breath no cough no nausea or vomiting no abdominal pain no diarrhea no burning was urination no frequency or urgency no hematuria. On 12/14/2019 patient was seen and examined on the medical floor she is alert and oriented 3 in no apparent distress she is still complaining of generalized weakness and complaining of back pain otherwise she denies any complaints there is no fever or chills no headache or dizziness no chest pain no shortness of breath no cough no nausea or vomiting no abdominal pain no diarrhea no burning was urination no frequency or urgency no hematuria On 12/15/2019 patient was seen and examined on the medical floor she is alert and oriented in no apparent distress she is still complaining of back pain and complaining of bilateral lower extremity weakness otherwise she denies any complaints there is no fever or chills no headache or dizziness no chest pain no shortness of breath no cough no nausea or vomiting no abdominal pain no diarrhea no burning was urination no frequency or urgency and no hematuria. On 12/16/2019 patient was seen and examined on the medical floor she is alert and oriented in no distress she is still complaining of generalized weakness, there is no fever or chills no headache or dizziness no chest pain no shortness of breath no cough no nausea or vomiting no abdominal pain no diarrhea no burning was urination no frequency or urgency no hematuria Objective - Vital Signs Vital signs: Vital Signs Temp 98 F 12/16/19 13:00 Pulse 55 L 12/16/19 13:00 Resp 18 12/16/19 13:00 BP 117/74 12/16/19 13:00 Pulse Ox 94 L 12/16/19 13:00 Intake & Output 12/15/19 12/16/19 12/16/19 18:59 06:59 18:59 Intake Total 340 740 Balance 340 740 Intake: IV 140 KVO 140 Intake, IV Titration 100 100 Amount methylPREDNISolone SOD 100 100 SUCC 250 mg In Sodium Chloride 0.9% 100 ml @ 200 mls/hr IVPB Q6HR [facility] Rx#:[id number] Oral 240 500 Other: Voiding Method Toilet Toilet Toilet # Voids 2 3 # Bowel Movements 1 1 - Exam In general patient is alert and oriented 3 in no apparent distress HEENT head normocephalic and atraumatic Neck is supple no JVD no goiter no lymphadenopathy Chest exam reveals a few scattered rhonchi bilaterally no wheezing Cardiac exam reveals regular heart sounds S1 and S2 no gallops no murmurs Abdomen is soft nontender no organomegaly with normal bowel sounds Extremity exam reveals no edema no cyanosis or clubbing Neurological examination reveals generalized weakness without any new focal deficit - Labs CBC & Chem 7: 12/16/19 06:31 12/16/19 06:31 Labs: Abnormal Lab Results - Last 24 Hours (Table) 12/15/19 12/16/19 12/16/19 Range/Units 20:26 06:31 06:31 Plt Count 94 L (150-450) k/uL Lymphocytes # 0.6 L (1.0-4.8) k/uL PT 28.5 H (9.0-12.0) sec INR 2.9 H (<1.2) BUN (7-17) mg/dL Glucose (74-99) mg/dL POC Glucose (mg/dL) 274 H (75-99) mg/dL Total Protein (6.3-8.2) g/dL Albumin (3.5-5.0) g/dL 12/16/19 12/16/19 12/16/19 Range/Units 06:31 07:12 12:19 Plt Count (150-450) k/uL Lymphocytes # (1.0-4.8) k/uL PT (9.0-12.0) sec INR (<1.2) BUN 34 H (7-17) mg/dL Glucose 157 H (74-99) mg/dL POC Glucose (mg/dL) 195 H 239 H (75-99) mg/dL Total Protein 5.6 L (6.3-8.2) g/dL Albumin 3.4 L (3.5-5.0) g/dL 12/16/19 Range/Units 17:26 Plt Count (150-450) k/uL Lymphocytes # (1.0-4.8) k/uL PT (9.0-12.0) sec INR (<1.2) BUN (7-17) mg/dL Glucose (74-99) mg/dL POC Glucose (mg/dL) 165 H (75-99) mg/dL Total Protein (6.3-8.2) g/dL Albumin (3.5-5.0) g/dL Assessment and Plan Plan: 1. Acute exacerbation of multiple sclerosis, patient is admitted to medical floor, she was started on Solu-Medrol 250 mg IV every 6 hours for 10 doses 2. Hyperglycemia due to steroid use, patient was started on subcu insulin per sliding scale 3. Previous history of deep venous thrombosis and pulmonary embolism maintained on Coumadin continue 4. Underlying history of hypothyroidism maintained on Synthroid continue 5. Slight elevation in BUN and creatinine will monitor kidney function 6. Underlying history of depression maintained on Celexa continue Will check urine analysis and chest x-ray to rule out any infectious process Continue with current medication otherwise Patient finished all tendinosis of IV Solu-Medrol, she has some improvement however she is still having significant generalized weakness Will consult Dr. Giles for possible rehab admission Will follow closely
[2019-12-16] MEDS ORDERED: WARFARIN 5 MG TAB PO ONE (18:00)
[2019-12-16] MEDS: LORATADINE 10 MG TAB PO SCH (18:17)
[2019-12-16] MEDS: MONTELUKAST 10 MG TAB PO SCH (18:18)
[2019-12-16] MEDS: BACLOFEN 10 MG TAB PO SCH (18:18)
[2019-12-16] MEDS: FERROUS SULFATE 325 MG TAB PO SCH (18:18)
[2019-12-16 20:20] LABS: Glucose,Whole Blood 219 mg/dL (75-99)
[2019-12-16] MEDS: PRAVASTATIN SODIUM 20 MG TAB PO SCH (20:55)
[2019-12-16] MEDS: CITALOPRAM HYDROBROMIDE 20 MG TAB PO SCH (20:55)
[2019-12-17] MEDS: PANTOPRAZOLE 40 MG TABLET PO SCH (05:18)
--- NOTE | 2019-12-17 06:23 | P.CONS ---
History of Present Illness - Chief Complaint Gait disturbance - History of Present Illness I had the opportunity to see patient for inpatient rehab consultation with regard to gait disturbance. [facility]. History of previous episodes or exacerbations. Chest x-ray demonstrates bilateral lower lobe infiltrates. PT and OT prescribed and I have added speech therapy at this time. Previous functional history: Patient confused historian and she reports that she is right-handed and possibly . Review of Systems Review of systems:gleaned from chart and exam of patient. ENT: Denies sneezes or discharge. Eyes: Denies discharge or photophobia. Cardiac: Denies chest pain or palpitation. Pulmonary: Denies cough or shortness of breath. Breast: Denies discharge or lumps. Gastrointestinal: Denies nausea, emesis, constipation, diarrhea. Genitourinary: Denies discharge or frequency. Musculoskeletal: Denies muscle or bone aches. Neurologic: general weakness and confusion. Endocrine: Denies shakes or sweats. Oncology: Denies cancers. Dermatologic: Denies rash, itching, pruritus. ALLERGY/immunology: Denies sneezes, rashes. Past Medical History Past Medical History: Chest Pain / Angina, CVA/TIA, Fibromyalgia, Musculoskeletal Disorder, Neurologic Disorder, Osteoarthritis (OA), Pulmonary Embolus (PE), Sleep Apnea/CPAP/BIPAP, Thyroid Disorder Additional Past Medical History / Comment(s): MULTIPLE SCLEROSIS, 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 PAINFUL FOR HER TO LIE FLAT. HX OF NOSEBLEED JUL 2014 AND RECEIVED PLASMA TRANSFUSION. 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 MDRO Source:: URINE Past Surgical History: Ablation, Appendectomy, Cholecystectomy, Hernia Repair, Hysterectomy Additional Past Surgical History / Comment(s): Incisional hernia repair, laparoscopic lysis of adhesions in 1987, ganglion cyst removal of the left wrist, patent foramen ovale patch in 2006, RF ablation for back pain. Past Anesthesia/Blood Transfusion Reactions: No Reported Reaction Past Psychological History: Depression Additional Psychological History / Comment(s): CELEXA to help sleep at night per . PT HAS DIFFICULTY W/SPEECH . HAS TO LOOK AT DIETARY MENU TO ORDER CAN'T DO IT BY PHONE. Pt resides with her spouse. She uses a cane to ambulate. She also has a walker.cpap machine Spouse drives her to appointments. Spouse assists her with some ADLs when needed. Smoking Status: Never smoker Past Alcohol Use History: None Reported Past Drug Use History: None Reported Additional Drug Use History / Comment(s): Lives at home with her requires some assistance with ADLs at times - Past Family History Mother Family Medical History: Hypertension Additional Family Medical History / Comment(s): osteoporosis Father Family Medical History: Dementia, Diabetes Mellitus Medications and Allergies Home Medications Medication Instructions Recorded Confirmed Type Aspirin 81 mg PO DAILY@0911/08/13 12/12/19 History Baclofen [Lioresal] 10 mg PO DAILY@169911/08/13 12/12/19 History Citalopram Hydrobromide [CeleXA] 40 mg PO HS@209911/08/13 12/12/19 History Ferrous Sulfate [Feosol] 325 mg PO DAILY@169911/08/13 12/12/19 History Furosemide [Lasix] 40 mg PO BID@0900,1700 11/08/13 12/12/19 History Montelukast [Singulair] 10 mg PO DAILY@169911/08/13 12/12/19 History Pantoprazole Sodium [Protonix] 40 mg PO DAILY@0600 11/08/13 12/12/19 History Potassium Chloride 20 meq PO BID@0900,1700 11/08/13 12/12/19 History Cholecalciferol [Vitamin D3 (25 2,000 unit PO DAILY@0911/18/15 12/12/19 History Mcg = 1000 Iu)] Fluticasone Nasal [place] [Flonase 1 spray EA NOSTRIL DAILY@0911/18/15 12/12/19 History Nasal [place]] Methylphenidate HCl [Ritalin] 20 mg PO BID@0900,1200 11/18/15 12/12/19 History Pravastatin Sodium [Pravachol] 20 mg PO HS@209911/18/15 12/12/19 History Pregabalin [Lyrica] 100 mg PO TID@0900,1700,209907/13/16 12/12/19 History Folic Acid 0.4 mg PO DAILY@0900 08/18/16 12/12/19 History Fexofenadine HCl 180 mg PO DAILY@1700 05/11/19 12/12/19 History Levothyroxine Sodium [Levoxyl] 75 mcg PO DAILY@0900 05/11/19 12/12/19 History Dimethyl Fumarate [Tecfidera] 240 mg PO BID 12/13/19 12/13/19 History Warfarin [Coumadin] 7.5 mg PO DIRECTED 12/13/19 12/13/19 History Warfarin [Coumadin] 10 mg PO DIRECTED 12/13/19 12/13/19 History Allergies Allergy/AdvReac Type Severity Reaction Status Date / Time adhesive Allergy SKIN Verified 05/11/19 14:25 PEELING Physical Exam Vitals: Vital Signs Temp Pulse Resp BP Pulse Ox 12/16/19 21:00 98.5 F 63 18 118/62 95 12/16/19 13:00 98 F 55 L 18 117/74 94 L Intake and Output 12/16/19 12/16/19 12/17/19 14:59 22:59 06:59 Other: Voiding Method Toilet Toilet Toilet # Voids 3 1 1 Skin: Good color, texture, turgor. General: obese build and comfortable appearance. Head: Normocephalic, atraumatic. Eyes: Symmetric. Pupils equal round. Ears: Symmetric. Hearing within normal limits. Mouth: Clear. Neck: Supple. Carotid without bruit. Cardiac: Regular rate and rhythm. Lungs: Clear anteriorly and posteriorly. Abdomen: Soft active nontender. Extremities: Normal tone. Neurological: Mental status: Alert, cooperative, pleasant, confused. Cranial nerves: Symmetric facial tone and trapezius. Motor: can actively move all 4 limbs. Sensation: Intact throughout. DTRs: Symmetric and equal throughout. Mobility: requires physical assist for bed mobility. Results CBC & Chem 7: 12/16/19 06:31 12/16/19 06:31 Labs: Abnormal Lab Results - Last 24 Hours (Table) 12/16/19 12/16/19 12/16/19 Range/Units 06:31 06:31 06:31 Plt Count 94 L (150-450) k/uL Lymphocytes # 0.6 L (1.0-4.8) k/uL PT 28.5 H (9.0-12.0) sec INR 2.9 H (<1.2) BUN 34 H (7-17) mg/dL Glucose 157 H (74-99) mg/dL POC Glucose (mg/dL) (75-99) mg/dL Total Protein 5.6 L (6.3-8.2) g/dL Albumin 3.4 L (3.5-5.0) g/dL 12/16/19 12/16/19 12/16/19 Range/Units 07:12 12:19 17:26 Plt Count (150-450) k/uL Lymphocytes # (1.0-4.8) k/uL PT (9.0-12.0) sec INR (<1.2) BUN (7-17) mg/dL Glucose (74-99) mg/dL POC Glucose (mg/dL) 195 H 239 H 165 H (75-99) mg/dL Total Protein (6.3-8.2) g/dL Albumin (3.5-5.0) g/dL 12/16/19 Range/Units 20:17 Plt Count (150-450) k/uL Lymphocytes # (1.0-4.8) k/uL PT (9.0-12.0) sec INR (<1.2) BUN (7-17) mg/dL Glucose (74-99) mg/dL POC Glucose (mg/dL) 219 H (75-99) mg/dL Total Protein (6.3-8.2) g/dL Albumin (3.5-5.0) g/dL Assessment and Plan (1) Exacerbation of multiple sclerosis Current Visit: Yes Status: Acute Code(s): G35 - MULTIPLE SCLEROSIS SNOMED Code(s): 063557056 Plan: impression: 1. Gait disturbance. 2. MS exacerbation. 3. Confusion. 4. Obese. 5. Fibromyalgia. 6. osteoarthritis. 7.history of angina and strokeand PE. 8. Sleep apnea. Constant plan: At this time PT, OT, [employer]HE[employer] OPERATOR all prescribed. Follow therapies with yourself. Rehab prognosis guarded. Must determine home situation and caregivers goals.
[2019-12-17 06:59] LABS: Glucose,Whole Blood 146 mg/dL (75-99)
[2019-12-17 08:16] LABS: INR 2.8 (<1.2); Prothrombin Time 27.2 sec (9.0-12.0)
[2019-12-17 08:42] LABS: Basophils % (A) 0 %; Eosinophils % (A) 1 %; HCT 39.9 % (34.0-46.0); HGB 13.5 gm/dL (11.4-16.0); Lymphocytes # (A) 0.6 k/uL (1.0-4.8); Lymphocytes % (A) 13 %; MCH 31.1 pg (25.0-35.0); MCHC 33.7 g/dL (31.0-37.0); MCV 92.1 fL (80.0-100.0); Mean Platelet Volume 12.9; Monocytes # (A) 0.3 k/uL (0-1.0); Monocytes % (A) 6 %; Neutrophils # (A) 3.3 k/uL (1.3-7.7); Neutrophils % (A) 78 %; RBC 4.33 m/uL (3.80-5.40); WBC 4.2 k/uL (3.8-10.6)
[2019-12-17 09:35] LABS: Albumin 3.2 g/dL (3.5-5.0); Calcium 8.4 mg/dL (8.4-10.2); Potassium 3.3 mmol/L (3.5-5.1); Total Bilirubin 0.6 mg/dL (0.2-1.3); Total Protein 5.3 g/dL (6.3-8.2)
[2019-12-17 10:33] LABS: Large Platelets Present; Platelet Count 79 k/uL (150-450)
[2019-12-17 10:34] LABS: Anisocytosis (M) Present
[2019-12-17] MEDS: Dimethyl Fumarate [Tecfidera] PO SCH ×2 (10:38→21:00)
[2019-12-17] MEDS: METHYLPHENIDATE HCL 10 MG TAB PO SCH ×2 (10:39→13:21)
[2019-12-17] MEDS: CHOLECALCIFEROL 1,000 UNIT TAB PO SCH (10:39)
[2019-12-17] MEDS: ASPIRIN 81 MG PO SCH (10:41)
[2019-12-17] MEDS: LEVOTHYROXINE 75 MCG TAB PO SCH (10:41)
[2019-12-17] MEDS: FOLIC ACID 1 MG TAB PO SCH (10:41)
[2019-12-17] MEDS: POTASSIUM CHLORIDE ER 20 MEQ TAB.ER PO SCH ×4 (10:41→19:52)
[2019-12-17] MEDS: FUROSEMIDE 40 MG TAB PO SCH ×2 (10:41→18:21)
[2019-12-17] MEDS: PREGABALIN 100 MG CAP PO SCH ×3 (10:41→21:00)
[2019-12-17] MEDS: FLUTICASONE 50MCG/SPRAY NASAL 16GM EA NOSTRIL SCH (10:42)
[2019-12-17] MEDS: INSULIN ASPART (NovoLOG) 100 UNIT/ML VIAL SQ SCH ×4 (10:42→20:59)
[2019-12-17 11:42] LABS: Glucose,Whole Blood 138 mg/dL (75-99)
[2019-12-17] MEDS ORDERED: Potassium Replacement Protocol 1 EACH MISC MISCELLANE PRN (16:35)
[2019-12-17 17:23] LABS: Glucose,Whole Blood 99 mg/dL (75-99)
[2019-12-17] MEDS ORDERED: WARFARIN 5 MG TAB PO ONE (18:00)
[2019-12-17] MEDS: LORATADINE 10 MG TAB PO SCH (18:22)
[2019-12-17] MEDS: FERROUS SULFATE 325 MG TAB PO SCH (18:22)
[2019-12-17] MEDS: MONTELUKAST 10 MG TAB PO SCH (18:22)
[2019-12-17] MEDS: BACLOFEN 10 MG TAB PO SCH (18:22)
[2019-12-17 20:51] LABS: Glucose,Whole Blood 165 mg/dL (75-99)
[2019-12-17] MEDS: PRAVASTATIN SODIUM 20 MG TAB PO SCH (21:00)
[2019-12-17] MEDS: CITALOPRAM HYDROBROMIDE 20 MG TAB PO SCH (21:00)
[2019-12-17] MEDS ORDERED: POTASSIUM CHLORIDE ER 20 MEQ TAB.ER PO SCH (23:00)
[2019-12-18] MEDS: PANTOPRAZOLE 40 MG TABLET PO SCH (05:56)
[2019-12-18 07:02] LABS: Glucose,Whole Blood 106 mg/dL (75-99)
[2019-12-18 07:08] LABS: INR 2.3 (<1.2); Prothrombin Time 22.8 sec (9.0-12.0)
[2019-12-18] MEDS: INSULIN ASPART (NovoLOG) 100 UNIT/ML VIAL SQ SCH ×2 (08:02→12:14)
[2019-12-18] MEDS: METHYLPHENIDATE HCL 10 MG TAB PO SCH ×2 (08:03→12:45)
[2019-12-18] MEDS: FOLIC ACID 1 MG TAB PO SCH (08:03)
[2019-12-18] MEDS: FUROSEMIDE 40 MG TAB PO SCH (08:03)
[2019-12-18] MEDS: PREGABALIN 100 MG CAP PO SCH (08:03)
[2019-12-18] MEDS: CHOLECALCIFEROL 1,000 UNIT TAB PO SCH (08:03)
[2019-12-18] MEDS: ASPIRIN 81 MG PO SCH (08:03)
[2019-12-18] MEDS: LEVOTHYROXINE 75 MCG TAB PO SCH (08:03)
[2019-12-18] MEDS: POTASSIUM CHLORIDE ER 20 MEQ TAB.ER PO SCH (08:03)
[2019-12-18] MEDS: FLUTICASONE 50MCG/SPRAY NASAL 16GM EA NOSTRIL SCH (08:04)
[2019-12-18] MEDS: Dimethyl Fumarate [Tecfidera] PO SCH (08:04)
[2019-12-18 11:57] LABS: Glucose,Whole Blood 132 mg/dL (75-99)
[2019-12-18 12:24] VITALS: BP 100/65; PULSE 66; RESP 16; TEMP 98
[2019-12-18] MEDS ORDERED: WARFARIN 7.5 MG TAB PO ONE (18:00)
== END 2019-12-18 15:27 | disposition home health service (06) | DRG 60 ==
LOC: 5NMEDONC 17:50
PROVIDERS: ADMIT Internal Medicine; ATTEND Internal Medicine
DX: G35 Multiple sclerosis (principal); E66.9 Obesity, unspecified; M19.90 Unspecified osteoarthritis, unspecified site; G47.30 Sleep apnea, unspecified; G43.909 Migraine, unspecified, not intractable, without status migrainosus; F32.9 Major depressive disorder, single episode, unspecified; E03.9 Hypothyroidism, unspecified; E78.5 Hyperlipidemia, unspecified; I10 Essential (primary) hypertension; T38.0X5A Adverse effect of glucocorticoids and synthetic analogues, initial encounter; M79.7 Fibromyalgia; Z82.49 Family history of ischemic heart disease and other diseases of the circulatory system; Z68.34 Body mass index [BMI] 34.0-34.9, adult; Z83.3 Family history of diabetes mellitus; Z79.899 Other long term (current) drug therapy; Z82.62 Family history of osteoporosis; Z79.890 Hormone replacement therapy; Z79.82 Long term (current) use of aspirin; Z79.01 Long term (current) use of anticoagulants; Z86.718 Personal history of other venous thrombosis and embolism; Z90.710 Acquired absence of both cervix and uterus; Z86.711 Personal history of pulmonary embolism; Z90.49 Acquired absence of other specified parts of digestive tract; Z98.890 Other specified postprocedural states; Z91.09 Other allergy status, other than to drugs and biological substances; Z86.73 Personal history of transient ischemic attack (TIA), and cerebral infarction without residual deficits
CPT/HCPCS: 71045; 80053; 81001; 84132; 85025; 85610; 93005

== ENCOUNTER 2020-04-29 15:12 | Emergency (ER) | payer MEDICARE, OTHER ==
[2020-04-29 15:20] VITALS: TEMP 98.1
[2020-04-29] MEDS ORDERED: MORPHINE SULFATE 4 MG/ML SYRINGE IV STA (16:20)
[2020-04-29] MEDS ORDERED: ONDANSETRON 4 MG/2 ML VIAL IVP STA (16:20)
[2020-04-29] MEDS ORDERED: SODIUM CHLORIDE 0.9% 500 ML 500 ML IV STA (16:20)
[2020-04-29 16:33] VITALS: RESP 16
[2020-04-29 16:37] LABS: Basophils % (A) 1 %; Eosinophils # (A) 0.1 k/uL (0-0.7); Eosinophils % (A) 2 %; HCT 45.5 % (34.0-46.0); HGB 15.3 gm/dL (11.4-16.0); Lymphocytes # (A) 0.3 k/uL (1.0-4.8); Lymphocytes % (A) 12 %; MCH 30.9 pg (25.0-35.0); MCHC 33.7 g/dL (31.0-37.0); MCV 91.6 fL (80.0-100.0); Mean Platelet Volume 10.7; Monocytes # (A) 0.2 k/uL (0-1.0); Monocytes % (A) 9 %; Neutrophils # (A) 2.1 k/uL (1.3-7.7); Neutrophils % (A) 75 %; RBC 4.97 m/uL (3.80-5.40); RDW 13.1 % (11.5-15.5); WBC 2.8 k/uL (3.8-10.6)
[2020-04-29 16:47] LABS: Albumin 4.2 g/dL (3.5-5.0); Calcium 9.7 mg/dL (8.4-10.2); Potassium 3.9 mmol/L (3.5-5.1); Total Bilirubin 0.9 mg/dL (0.2-1.3); Total Protein 6.6 g/dL (6.3-8.2)
--- NOTE | 2020-04-29 17:00 | ED ---
General Adult HPI - General Source: family Mode of arrival: wheelchair Limitations: no limitations <Natacha Armstrong - Last Filed: 04/29/20 22:50> <Maya Schofieldah Tanika - Last Filed: 04/30/20 10:50> - General Chief complaint: Nausea/Vomiting/Diarrhea Stated complaint: NVD, Chills Time Seen by Provider: 04/29/20 16:02 - History of Present Illness Initial comments: Patient is a 64-year-old female with history of MS, CVA with right-sided weakness and expressive aphasia, presenting to the emergency Department with complaints of abdominal pain has been increasing over the past 2 days. Patient's is here with her now and is helping with the history. Patient's states that she typically has intermittent abdominal pain that she complains of with no known source but the last 2 days has been very severe. Her appetite is low. There is been no vomiting, no diarrhea. She states her bowel movements have been normal. She denies any trouble with urination. She denies any fever, chills. She denies any chest pain or shortness of breath. She states her abdominal pain is all over her abdomen, no specific area. She denies any new recent medications. She has no further complaints at this time. Upon arrival to the ER, her vital signs are stable. (Natacha Armstrong) - Related Data Home Medications Medication Instructions Recorded Confirmed Aspirin 81 mg PO DAILY@0900 11/08/13 04/29/20 Baclofen [Lioresal] 10 mg PO DAILY@169911/08/13 04/29/20 Citalopram Hydrobromide [CeleXA] 40 mg PO HS@2100 11/08/13 04/29/20 Ferrous Sulfate [Feosol] 325 mg PO DAILY@169911/08/13 04/29/20 Furosemide [Lasix] 40 mg PO BID@0900,169911/08/13 04/29/20 Montelukast [Singulair] 10 mg PO DAILY@169911/08/13 04/29/20 Pantoprazole Sodium [Protonix] 40 mg PO DAILY@0600 11/08/13 04/29/20 Potassium Chloride 20 meq PO BID@0900,0 11/08/13 04/29/20 Cholecalciferol [Vitamin D3 (25 2,000 unit PO DAILY@0900 11/18/15 04/29/20 Mcg = 1000 Iu)] Fluticasone Nasal [place] [Flonase 1 spray EA NOSTRIL DAILY@0900 11/18/15 04/29/20 Nasal [place]] Methylphenidate HCl [Ritalin] 20 mg PO BID@0900,1200 11/18/15 04/29/20 Pravastatin Sodium [Pravachol] 20 mg PO HS@2100 11/18/15 04/29/20 Pregabalin [Lyrica] 100 mg PO TID@0900,1700,2100 07/13/16 04/29/20 Folic Acid 0.4 mg PO DAILY@0900 08/18/16 04/29/20 Fexofenadine HCl 180 mg PO DAILY@1700 05/11/19 04/29/20 Levothyroxine Sodium [Levoxyl] 75 mcg PO DAILY@0900 05/11/19 04/29/20 Dimethyl Fumarate [Tecfidera] 240 mg PO BID@0600,1800 12/13/19 04/29/20 Warfarin [Coumadin] 7.5 mg PO DAILY@1700 12/13/19 04/29/20 Nitroglycerin Sl Tabs [Nitrostat] 0.4 mg SUBLINGUAL Q5M PRN 04/29/20 04/29/20 fentaNYL 25MCG/HR PATCH [Duragesic 1 patch TRANSDERM Q72H 04/29/20 04/29/20 25MCG/HR] Allergies Allergy/AdvReac Type Severity Reaction Status Date / Time adhesive Allergy SKIN Verified 04/29/20 17:44 PEELING Review of Systems ROS Other: All systems not noted in ROS Statement are negative. <Natacha Armstrong - Last Filed: 04/29/20 22:50> ROS Other: All systems not noted in ROS Statement are negative. <Kristin Schofield - Last Filed: 04/30/20 10:50> ROS Statement: Those systems with pertinent positive or pertinent negative responses have been documented in the HPI. Past Medical History Past Medical History: Chest Pain / Angina, CVA/TIA, Fibromyalgia, Musculoskeletal Disorder, Neurologic Disorder, Osteoarthritis (OA), Pulmonary Embolus (PE), Sleep Apnea/CPAP/BIPAP, Thyroid Disorder Additional Past Medical History / Comment(s): MULTIPLE SCLEROSIS, 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 PAINFUL FOR HER TO LIE FLAT. HX OF NOSEBLEED JUL 2014 AND RECEIVED PLASMA TRANSFUSION. History of Any Multi-Drug Resistant Organisms: VRE Date of last positivie culture/infection: 10/24/09 confirmed with infectious disease nurse on 08/18/16. MDRO Source:: URINE Past Surgical History: Ablation, Appendectomy, Cholecystectomy, Hernia Repair, Hysterectomy Additional Past Surgical History / Comment(s): Incisional hernia repair, laparoscopic lysis of adhesions in 1987, ganglion cyst removal of the left wrist, patent foramen ovale patch in 2006, RF ablation for back pain. Past Anesthesia/Blood Transfusion Reactions: No Reported Reaction Past Psychological History: Depression Smoking Status: Former smoker Past Alcohol Use History: None Reported Past Drug Use History: None Reported - Past Family History Mother Family Medical History: Hypertension Additional Family Medical History / Comment(s): osteoporosis Father Family Medical History: Dementia, Diabetes Mellitus <Natacha Armstrong - Last Filed: 04/29/20 22:50> General Exam Limitations: no limitations <Natacha Armstrong L - Last Filed: 04/29/20 22:50> - General Exam Comments Initial Comments: GENERAL: Patient is well-developed and well-nourished. Patient is nontoxic and in no acute distress. HEAD: Atraumatic, normocephalic. EYES: Pupils equal round and reactive to light, extraocular movements intact, sclera anicteric, conjunctiva are normal. Eyelids were unremarkable. ENT: TMs normal, nares patent, oropharynx clear without exudates. Moist mucous membranes. NECK: Normal range of motion, supple without lymphadenopathy or JVD. LUNGS: Unlabored respirations. Breath sounds clear to auscultation bilaterally and equal. No wheezes rales or rhonchi. HEART: Regular rate and rhythm without murmurs, rubs or gallops. ABDOMEN: Patient is severely tender across the entire abdomen, no specific area, positive guarding. Soft, normoactive bowel sounds. No masses appreciated. : Deferred MUSCULOSKELETAL: Patient has residual right-sided weakness from previous CVA. Normal extremities with adequate strength and normal range of motion, no pitting or edema. No clubbing or cyanosis. NEUROLOGICAL: Patient is alert and oriented x 3. Motor and sensory are also intact. Cranial nerves II through XII grossly intact. Symmetrical smile. Normal speech. PSYCH: Normal mood, normal affect. SKIN: Warm, Dry, normal turgor, no rashes or lesions noted. (Natacha Armstrong) Course Vital Signs 04/29/20 04/29/20 04/29/20 15:18 16:32 17:54 Temperature 98.1 F Pulse Rate 62 58 L 66 Respiratory 18 16 16 Rate Blood Pressure 114/66 114/61 113/56 O2 Sat by Pulse 96 97 96 Oximetry 04/29/20 04/29/20 18:38 19:15 Temperature Pulse Rate 58 L 64 Respiratory 16 16 Rate Blood Pressure 111/58 132/85 O2 Sat by Pulse 95 99 Oximetry Medical Decision Making - Lab Data Result diagrams: 04/29/20 16:29 04/29/20 16:29 <Natacha Armstrong - Last Filed: 04/29/20 22:50> - Lab Data Result diagrams: 04/29/20 16:29 04/29/20 16:29 <Kristin Schofield - Last Filed: 04/30/20 10:50> - Medical Decision Making Patient is a 64-year-old female presenting with abdominal pain has been increasing the past 2 days. Patient's son states that she typically does have abdominal pain secondary to history of MS, stroke. She denies nausea, vomiting diarrhea. Her vital signs are stable. Labs reveal normal white count, kidney function is stable liver enzymes are elevated at 204, 406. Urine shows no evidence of infection. I did do a CT of the abdomen and pelvis shows no acute abnormality within the abdomen or the pelvis. Patient is given fluids, pain control. She's been resting comfortably in the ER, sleeping. I discussed these findings with the patient and her son. Patient's son states that they have been talking about seeing a pain clinic. I do recommend this. At this time there is no acute findings today. I recommended following up with her PCP in the next 1- 2 weeks to check her liver enzymes. They're in agreement with this plan of care. She is stable for discharge. Return parameters were discussed with them and they verbalized understanding. Case discussed with Dr. Schofield. (Natacha Armstrong) I was available for consultation in the emergency department. The history and physical exam were done by the midlevel provider. I was consulted for this patients care. I reviewed the case with the midlevel provider and based on their presentation of the patient, I agree with the assessment, medical decision making and plan of care as documented. Chart was dictated using Ryan dictation software. Attempts were made to correct any dictation errors however some typographical errors may persist. Patient was seen during a national state of emergency due to the Covid-19 pandemic. (Kristin Schofield) - Lab Data Lab Results 04/29/20 04/29/20 04/29/20 Range/Units 16:29 16:29 16:29 WBC 2.8 L (3.8-10.6) k/uL RBC 4.97 (3.80-5.40) m/uL Hgb 15.3 (11.4-16.0) gm/dL Hct 45.5 (34.0-46.0) % MCV 91.6 (80.0-100.0) fL MCH 30.9 (25.0-35.0) pg MCHC 33.7 (31.0-37.0) g/dL RDW 13.1 (11.5-15.5) % Plt Count 63 L (150-450) k/uL Neutrophils % 75 % Lymphocytes % 12 % Monocytes % 9 % Eosinophils % 2 % Basophils % 1 % Neutrophils # 2.1 (1.3-7.7) k/uL Lymphocytes # 0.3 L (1.0-4.8) k/uL Monocytes # 0.2 (0-1.0) k/uL Eosinophils # 0.1 (0-0.7) k/uL Basophils # 0.0 (0-0.2) k/uL Sodium 140 (137-145) mmol/L Potassium 3.9 (3.5-5.1) mmol/L Chloride 105 (98-107) mmol/L Carbon Dioxide 26 (22-30) mmol/L Anion Gap 9 mmol/L BUN 26 H (7-17) mg/dL Creatinine 1.14 H (0.52-1.04) mg/dL Est GFR (CKD-EPI)AfAm 58 (>60 ml/min/1.73 sqM) Est GFR (CKD-EPI)NonAf 51 (>60 ml/min/1.73 sqM) Glucose 122 H (74-99) mg/dL Plasma Lactic Acid Simone (0.7-2.0) mmol/L Calcium 9.7 (8.4-10.2) mg/dL Total Bilirubin 0.9 (0.2-1.3) mg/dL AST 204 H (14-36) U/L ALT 406 H (4-34) U/L Alkaline Phosphatase 149 H (38-126) U/L Total Protein 6.6 (6.3-8.2) g/dL Albumin 4.2 (3.5-5.0) g/dL Amylase 47 (30-110) U/L Lipase 25 (23-300) U/L Urine Color Yellow Urine Appearance Clear (Clear) Urine pH 5.5 (5.0-8.0) Ur Specific [place] >1.050 H (1.001-1.035) Urine Protein Negative (Negative) Urine Glucose (UA) Negative (Negative) Urine Ketones 2+ H (Negative) Urine Blood Negative (Negative) Urine Nitrite Negative (Negative) Urine Bilirubin Negative (Negative) Urine Urobilinogen <2.0 (<2.0) mg/dL Ur Leukocyte Esterase Negative (Negative) 04/29/20 Range/Units 16:29 WBC (3.8-10.6) k/uL RBC (3.80-5.40) m/uL Hgb (11.4-16.0) gm/dL Hct (34.0-46.0) % MCV (80.0-100.0) fL MCH (25.0-35.0) pg MCHC (31.0-37.0) g/dL RDW (11.5-15.5) % Plt Count (150-450) k/uL Neutrophils % % Lymphocytes % % Monocytes % % Eosinophils % % Basophils % % Neutrophils # (1.3-7.7) k/uL Lymphocytes # (1.0-4.8) k/uL Monocytes # (0-1.0) k/uL Eosinophils # (0-0.7) k/uL Basophils # (0-0.2) k/uL Sodium (137-145) mmol/L Potassium (3.5-5.1) mmol/L Chloride (98-107) mmol/L Carbon Dioxide (22-30) mmol/L Anion Gap mmol/L BUN (7-17) mg/dL Creatinine (0.52-1.04) mg/dL Est GFR (CKD-EPI)AfAm (>60 ml/min/1.73 sqM) Est GFR (CKD-EPI)NonAf (>60 ml/min/1.73 sqM) Glucose (74-99) mg/dL Plasma Lactic Acid Simone 1.3 (0.7-2.0) mmol/L Calcium (8.4-10.2) mg/dL Total Bilirubin (0.2-1.3) mg/dL AST (14-36) U/L ALT (4-34) U/L Alkaline Phosphatase (38-126) U/L Total Protein (6.3-8.2) g/dL Albumin (3.5-5.0) g/dL Amylase (30-110) U/L Lipase (23-300) U/L Urine Color Urine Appearance (Clear) Urine pH (5.0-8.0) Ur Specific [place] (1.001-1.035) Urine Protein (Negative) Urine Glucose (UA) (Negative) Urine Ketones (Negative) Urine Blood (Negative) Urine Nitrite (Negative) Urine Bilirubin (Negative) Urine Urobilinogen (<2.0) mg/dL Ur Leukocyte Esterase (Negative) Disposition Is patient prescribed a controlled substance at d/c from ED?: No <Natacha Armstrong - Last Filed: 04/29/20 22:50> <Kristin Schofield - Last Filed: 04/30/20 10:50> Clinical Impression: Abdominal pain Disposition: HOME SELF-CARE Condition: Stable Instructions (If sedation given, give patient instructions): Abdominal Pain (ED) Additional Instructions: Please return to the Emergency Department if symptoms worsen or any other concerns. Continue with already prescribed pain medicine. Follow-up with PCP to re-check labs within 1-2 weeks Referrals: Sarah Paredes MD [Primary Care Provider] - 1-2 days
--- NOTE | 2020-04-29 17:33 | CT ---
EXAMINATION TYPE: CT abdomen pelvis w con DATE OF EXAM: 04/29/2020 COMPARISON: 05/30/2018 HISTORY: Abdominal pain CT DLP: 1976.7 mGycm Automated exposure control for dose reduction was used. CONTRAST: Performed with IV Contrast, patient injected with 100 mL of Isovue 300. There is mild subsegmental atelectasis at the lung bases. Heart is normal. There is no pericardial ef fusion. There is no pleural effusion. There are clips from cholecystectomy. Common bile duct is large and measures up to 1.6 cm. Spleen is intact. There is no pancreatic mass. The stomach is intact. Spl een is borderline enlarged and measures 14 cm. There is no adrenal mass. Kidneys show satisfactory contrast opacification. There is no hydronephrosi s. There is 1 cm cortical cyst posterior right kidney. Delayed images show normal renal excretion. Th ere is 1 cm cortical cyst lower pole right kidney. There is no retroperitoneal adenopathy. Ureters are not dilated. Bladder distends smoothly. There is no inguinal hernia. There is no free flu id in the pelvis. There is hysterectomy. There is no sign of a pelvic mass. There are clips in the ri ght lower quadrant. Appendix is not seen. There is no mesenteric edema. There is no ascites or free air. There is no evidence of bowel obstruct ion. Lumbar vertebra have normal spacing and alignment. There is no compression fracture. Posterior e lements are intact. Bony pelvis is intact. Hip joints appear normal. IMPRESSION: Mild subsegmental atelectasis at the lung bases similar to old exam. No acute abnormality within the abdomen pelvis.
[2020-04-29 18:18] LABS: Platelet Count 63 k/uL (150-450)
[2020-04-29 18:39] LABS: Appearance,Urine Clear (Clear); Bilirubin,Urine Negative (Negative); Blood,Urine Negative (Negative); Color,Urine Yellow; Glucose,Urine (UA) Negative (Negative); Ketones,Urine 2+ (Negative); Leukocyte Esterase,Urine Negative (Negative); Nitrite,Urine Negative (Negative); PH, Urine 5.5 (5.0-8.0); Protein,Urine Negative (Negative); Urobilinogen,Urine <2.0 mg/dL (<2.0)
[2020-04-29 18:40] LABS: Specific Gravity,Urine >1.050 (1.001-1.035)
[2020-04-29] MEDS ORDERED: MORPHINE SULFATE 2 MG/ML SYRINGE IVP ONE (18:58)
[2020-04-29 19:16] VITALS: BP 132/85; PULSE 64
== END 2020-04-29 19:15 | disposition home or self-care (01) ==
LOC: EC 15:12
DX: R10.9 Unspecified abdominal pain (principal); R11.2 Nausea with vomiting, unspecified; R68.83 Chills (without fever); I69.951 Hemiplegia and hemiparesis following unspecified cerebrovascular disease affecting right dominant side; G47.30 Sleep apnea, unspecified; E07.9 Disorder of thyroid, unspecified; F32.9 Major depressive disorder, single episode, unspecified; Z79.82 Long term (current) use of aspirin; Z79.899 Other long term (current) drug therapy; Z79.51 Long term (current) use of inhaled steroids; Z79.01 Long term (current) use of anticoagulants; Z91.048 Other nonmedicinal substance allergy status; Z99.89 Dependence on other enabling machines and devices; Z90.49 Acquired absence of other specified parts of digestive tract; Z90.89 Acquired absence of other organs
CPT/HCPCS: 36415; 80053; 82150; 83605; 83690; 85025; 81003; 74177; 99284; 96374; 96375; 96376; 96361; J2270 ×2; J2405; Q9967

== ENCOUNTER 2020-05-01 14:04 | Inpatient (IN) | payer MEDICARE, OTHER ==
[2020-05-01] MEDS ORDERED: SODIUM CHLORIDE 0.9% 500 ML 500 ML IV STA (14:40)
[2020-05-01] MEDS ORDERED: MORPHINE SULFATE 4 MG/ML SYRINGE IV STA (14:40)
--- NOTE | 2020-05-01 14:43 | ED ---
General Adult HPI - General Chief complaint: Weakness Stated complaint: Weakness, Slurred Speech Time Seen by Provider: 05/01/20 14:20 Source: patient, RN notes reviewed, old records reviewed Mode of arrival: ambulatory Limitations: no limitations - History of Present Illness Initial comments: 64year-old female presenting for evaluation of increased generalized weakness, patient had been sent in as a rule out CVA with history of CVA and expressive aphasia. She has been sleeping more than usual. She has complained of abdominal pain. Patient is able to answer some simple questions but much of the history is obtained from the medical record and her who is at bedside. There is no reported fever. No vomiting. There has been poor appetite. She was seen in the emergency department with complaints of abdominal plain and was sent home in stable condition. She continues to have some abdominal pain and increased generalized weakness. - Related Data Home Medications Medication Instructions Recorded Confirmed Aspirin 81 mg PO DAILY@0900 11/08/13 05/01/20 Baclofen [Lioresal] 10 mg PO DAILY@169911/08/13 05/01/20 Citalopram Hydrobromide [CeleXA] 40 mg PO HS@209911/08/13 05/01/20 Ferrous Sulfate [Feosol] 325 mg PO DAILY@169911/08/13 05/01/20 Furosemide [Lasix] 40 mg PO BID@0900,169911/08/13 05/01/20 Montelukast [Singulair] 10 mg PO DAILY@169911/08/13 05/01/20 Pantoprazole Sodium [Protonix] 40 mg PO DAILY@0611/08/13 05/01/20 Potassium Chloride 20 meq PO BID@0900,169911/08/13 05/01/20 Cholecalciferol [Vitamin D3 (25 2,000 unit PO DAILY@89911/18/15 05/01/20 Mcg = 1000 Iu)] Fluticasone Nasal [place] [Flonase 1 spray EA NOSTRIL DAILY@89911/18/15 05/01/20 Nasal [place]] Methylphenidate HCl [Ritalin] 20 mg PO BID@0900,1200 11/18/15 05/01/20 Pravastatin Sodium [Pravachol] 20 mg PO HS@2100 05/18/16 10/30/20 Pregabalin [Lyrica] 100 mg PO TID@0900,1700,2100 07/13/16 05/01/20 Folic Acid 0.4 mg PO DAILY@0900 08/18/16 05/01/20 Fexofenadine HCl 180 mg PO DAILY@1700 05/11/19 05/01/20 Levothyroxine Sodium [Levoxyl] 75 mcg PO DAILY@0900 05/11/19 05/01/20 Dimethyl Fumarate [Tecfidera] 240 mg PO BID@0600,1800 12/13/19 05/01/20 Warfarin [Coumadin] 7.5 mg PO DAILY@1700 12/13/19 05/01/20 Nitroglycerin Sl Tabs [Nitrostat] 0.4 mg SUBLINGUAL Q5M PRN 04/29/20 05/01/20 fentaNYL 25MCG/HR PATCH [Duragesic 1 patch TRANSDERM DIRECTED 04/29/20 05/01/20 25MCG/HR] fentaNYL 50MCG/HR PATCH [Duragesic 1 patch TRANSDERM DIRECTED 05/01/20 05/01/20 50MCG/HR] Allergies Allergy/AdvReac Type Severity Reaction Status Date / Time adhesive Allergy SKIN Verified 05/01/20 16:20 PEELING Review of Systems ROS Statement: Those systems with pertinent positive or pertinent negative responses have been documented in the HPI. ROS Other: All systems not noted in ROS Statement are negative. Past Medical History Past Medical History: Chest Pain / Angina, CVA/TIA, Fibromyalgia, Musculoskeletal Disorder, Neurologic Disorder, Osteoarthritis (OA), Pulmonary Embolus (PE), Sleep Apnea/CPAP/BIPAP, Thyroid Disorder Additional Past Medical History / Comment(s): MULTIPLE SCLEROSIS, 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 PAINFUL FOR HER TO LIE FLAT. HX OF NOSEBLEED JUL 2014 AND RECEIVED PLASMA TRANSFUSION. History of Any Multi-Drug Resistant Organisms: VRE Date of last positivie culture/infection: 10/24/09 confirmed with infectious disease nurse on 08/18/16. MDRO Source:: URINE Past Surgical History: Ablation, Appendectomy, Cholecystectomy, Hernia Repair, Hysterectomy Additional Past Surgical History / Comment(s): Incisional hernia repair, laparoscopic lysis of adhesions in 1987, ganglion cyst removal of the left wrist, patent foramen ovale patch in 2006, RF ablation for back pain. Past Anesthesia/Blood Transfusion Reactions: No Reported Reaction Past Psychological History: Depression Smoking Status: Former smoker Past Alcohol Use History: None Reported Past Drug Use History: None Reported - Past Family History Mother Family Medical History: Hypertension Additional Family Medical History / Comment(s): osteoporosis Father Family Medical History: Dementia, Diabetes Mellitus General Exam Limitations: no limitations General appearance: alert, in no apparent distress Head exam: Present: atraumatic, normocephalic Eye exam: Present: normal appearance. Absent: scleral icterus, periorbital swelling, periorbital tenderness ENT exam: Present: mucous membranes dry Neck exam: Present: normal inspection. Absent: tenderness, meningismus Respiratory exam: Present: normal lung sounds bilaterally. Absent: respiratory distress, wheezes Cardiovascular Exam: Present: regular rate, normal rhythm GI/Abdominal exam: Present: soft, tenderness (bilateral lower abdominal tenderness to palpation). Absent: distended, guarding, rebound Extremities exam: Present: normal inspection, normal capillary refill. Absent: pedal edema, calf tenderness Back exam: Present: normal inspection Neurological exam: Present: alert, motor sensory deficit (expressive aphasia, all externally is moving symmetrically) Skin exam: Present: warm, dry, intact. Absent: cyanosis, diaphoretic Course Vital Signs 05/01/20 14:10 Temperature 97.9 F Pulse Rate 62 Respiratory 22 Rate Blood Pressure 137/84 O2 Sat by Pulse 99 Oximetry EKG Findings - EKG Comments: EKG Findings:: EKG: Sinus bradycardiarate of 52, NC interval 162, QRS duration 82, QTC 414, no ST segment elevation. Medical Decision Making - Medical Decision Making 64-year-old female with increased generalized weakness. Workup initiated in the emergency department, patient did indicate that there was concern for CVA although there was no new focal findings with baseline expressive aphasia. CT was negative for any acute intracranial abnormalities. Chest x-ray did show concern for CHF although the patient clinically appears dehydrated andnot dyspneic or hypoxic. She has leukopenia which is improved from previous, thrombocytopenia which is baseline. She has normal kidney function, normal prabhakar ctrolytes, urinalysis consistent with UTI and 2+ ketones suggestive of dehydration.INR is therapeutic. Patient's given IV hydration, started on IV antibiotics. Case has been discussed with Dr. Paredes, he will accept admission. - Lab Data Result diagrams: 05/01/20 14:43 05/01/20 14:43 Lab Results 05/01/20 05/01/20 05/01/20 Range/Units 14:43 14:43 14:43 WBC 3.5 L (3.8-10.6) k/uL RBC 5.09 (3.80-5.40) m/uL Hgb 15.8 (11.4-16.0) gm/dL Hct 45.7 (34.0-46.0) % MCV 89.9 (80.0-100.0) fL MCH 31.0 (25.0-35.0) pg MCHC 34.5 (31.0-37.0) g/dL RDW 13.0 (11.5-15.5) % Plt Count 90 L (150-450) k/uL Neutrophils % 69 % Lymphocytes % 18 % Monocytes % 8 % Eosinophils % 3 % Basophils % 1 % Neutrophils # 2.5 (1.3-7.7) k/uL Lymphocytes # 0.6 L (1.0-4.8) k/uL Monocytes # 0.3 (0-1.0) k/uL Eosinophils # 0.1 (0-0.7) k/uL Basophils # 0.0 (0-0.2) k/uL Manual Slide Review Performed Large Platelets Present RBC Morphology Normal PT 21.1 H (9.0-12.0) sec INR 2.2 H (<1.2) APTT 33.8 H (22.0-30.0) sec Sodium (137-145) mmol/L Potassium (3.5-5.1) mmol/L Chloride (98-107) mmol/L Carbon Dioxide (22-30) mmol/L Anion Gap mmol/L BUN (7-17) mg/dL Creatinine (0.52-1.04) mg/dL Est GFR (CKD-EPI)AfAm (>60 ml/min/1.73 sqM) Est GFR (CKD-EPI)NonAf (>60 ml/min/1.73 sqM) Glucose (74-99) mg/dL Plasma Lactic Acid Simone (0.7-2.0) mmol/L Calcium (8.4-10.2) mg/dL Magnesium (1.6-2.3) mg/dL Total Bilirubin (0.2-1.3) mg/dL AST (14-36) U/L ALT (4-34) U/L Alkaline Phosphatase (38-126) U/L Troponin I (0.000-0.034) ng/mL Total Protein (6.3-8.2) g/dL Albumin (3.5-5.0) g/dL Urine Color Yellow Urine Appearance Cloudy H (Clear) Urine pH 6.0 (5.0-8.0) Ur Specific [place] 1.028 (1.001-1.035) Urine Protein Trace H (Negative) Urine Glucose (UA) Negative (Negative) Urine Ketones 2+ H (Negative) Urine Blood Negative (Negative) Urine Nitrite Negative (Negative) Urine Bilirubin 1+ H (Negative) Urine Urobilinogen 2.0 (<2.0) mg/dL Ur Leukocyte Esterase Large H (Negative) Urine RBC 2 (0-5) /hpf Urine WBC 119 H (0-5) /hpf Ur Squamous Epith Cells 7 H (0-4) /hpf Urine Bacteria Rare H (None) /hpf Hyaline Casts 18 H (0-2) /lpf Urine Mucus Few H (None) /hpf 05/01/20 05/01/20 05/01/20 Range/Units 14:43 14:43 14:43 WBC (3.8-10.6) k/uL RBC (3.80-5.40) m/uL Hgb (11.4-16.0) gm/dL Hct (34.0-46.0) % MCV (80.0-100.0) fL MCH (25.0-35.0) pg MCHC (31.0-37.0) g/dL RDW (11.5-15.5) % Plt Count (150-450) k/uL Neutrophils % % Lymphocytes % % Monocytes % % Eosinophils % % Basophils % % Neutrophils # (1.3-7.7) k/uL Lymphocytes # (1.0-4.8) k/uL Monocytes # (0-1.0) k/uL Eosinophils # (0-0.7) k/uL Basophils # (0-0.2) k/uL Manual Slide Review Large Platelets RBC Morphology PT (9.0-12.0) sec INR (<1.2) APTT (22.0-30.0) sec Sodium 139 (137-145) mmol/L Potassium 4.3 (3.5-5.1) mmol/L Chloride 106 (98-107) mmol/L Carbon Dioxide 21 L (22-30) mmol/L Anion Gap 12 mmol/L BUN 24 H (7-17) mg/dL Creatinine 1.01 (0.52-1.04) mg/dL Est GFR (CKD-EPI)AfAm 67 (>60 ml/min/1.73 sqM) Est GFR (CKD-EPI)NonAf 58 (>60 ml/min/1.73 sqM) Glucose 110 H (74-99) mg/dL Plasma Lactic Acid Simone 1.2 (0.7-2.0) mmol/L Calcium 10.0 (8.4-10.2) mg/dL Magnesium 2.0 (1.6-2.3) mg/dL Total Bilirubin 1.3 (0.2-1.3) mg/dL AST 70 H (14-36) U/L ALT 232 H (4-34) U/L Alkaline Phosphatase 157 H (38-126) U/L Troponin I <0.012 (0.000-0.034) ng/mL Total Protein 6.8 (6.3-8.2) g/dL Albumin 4.3 (3.5-5.0) g/dL Urine Color Urine Appearance (Clear) Urine pH (5.0-8.0) Ur Specific [place] (1.001-1.035) Urine Protein (Negative) Urine Glucose (UA) (Negative) Urine Ketones (Negative) Urine Blood (Negative) Urine Nitrite (Negative) Urine Bilirubin (Negative) Urine Urobilinogen (<2.0) mg/dL Ur Leukocyte Esterase (Negative) Urine RBC (0-5) /hpf Urine WBC (0-5) /hpf Ur Squamous Epith Cells (0-4) /hpf Urine Bacteria (None) /hpf Hyaline Casts (0-2) /lpf Urine Mucus (None) /hpf Disposition Clinical Impression: Weakness generalized, Encephalopathy, UTI (urinary tract infection) Disposition: ADMITTED IP TO THIS HOSP Condition: Stable Is patient prescribed a controlled substance at d/c from ED?: No Referrals: Sarah Paredes MD [Primary Care Provider] - 1-2 days Decision to Admit Reason: Admit from EC Decision Date: 05/01/20 Decision Time: 17:03
[2020-05-01 15:04] LABS: Albumin 4.3 g/dL (3.5-5.0); Potassium 4.3 mmol/L (3.5-5.1); Total Bilirubin 1.3 mg/dL (0.2-1.3); Total Protein 6.8 g/dL (6.3-8.2)
[2020-05-01 15:11] LABS: INR 2.2 (<1.2); Partial Thromboplastin Time 33.8 sec (22.0-30.0); Prothrombin Time 21.1 sec (9.0-12.0)
[2020-05-01 15:13] LABS: Basophils % (A) 1 %; Eosinophils # (A) 0.1 k/uL (0-0.7); Eosinophils % (A) 3 %; HCT 45.7 % (34.0-46.0); HGB 15.8 gm/dL (11.4-16.0); Lymphocytes # (A) 0.6 k/uL (1.0-4.8); Lymphocytes % (A) 18 %; MCHC 34.5 g/dL (31.0-37.0); MCV 89.9 fL (80.0-100.0); Mean Platelet Volume 12.3; Monocytes # (A) 0.3 k/uL (0-1.0); Monocytes % (A) 8 %; Neutrophils # (A) 2.5 k/uL (1.3-7.7); Neutrophils % (A) 69 %; RBC 5.09 m/uL (3.80-5.40); WBC 3.5 k/uL (3.8-10.6)
--- NOTE | 2020-05-01 15:13 | CT ---
EXAMINATION TYPE: CT brain wo con DATE OF EXAM: 05/01/2020 HISTORY: weakness. History of MS CT DLP: 1158.4 mGycm. Automated Exposure Control for Dose Reduction was Utilized. TECHNIQUE: CT scan of the head is performed without contrast. COMPARISON: CT brain April 25, 2018. FINDINGS: There is no acute intracranial hemorrhage or midline shift identified. There is diffuse v entricular and sulcal prominence consistent with diffuse age-related cerebral atrophy. There is low- attenuation in the periventricular white matter consistent with chronic small vessel ischemic change. Old infarct in the left MCA distribution is redemonstrated involving portions of the frontal tempor al and parietal lobes. The globes are intact and the visualized sinuses are clear. IMPRESSION: No acute intracranial hemorrhage or midline shift. There is mild diffuse age-related ce rebral atrophy and chronic small vessel ischemic change along with significant old left-sided infarct redemonstrated.
[2020-05-01 15:15] LABS: Platelet Count 90 k/uL (150-450)
--- NOTE | 2020-05-01 15:15 | XR ---
EXAMINATION TYPE: XR chest 2V DATE OF EXAM: 05/01/2020 COMPARISON: Chest x-ray December 13, 2019. HISTORY: Weakness. TECHNIQUE: Frontal and lateral views of the chest are obtained. FINDINGS: Low lung volumes redemonstrated. There is some chronic painful change without suspicious n ew no focal air space opacity, pleural effusion, or pneumothorax seen. The cardiac silhouette size i s stable and upper limits of normal with atherosclerotic aorta. The osseous structures are intact. IMPRESSION: Chronic changes without acute pulmonary process.
--- NOTE | 2020-05-01 15:17 | XR ---
EXAMINATION TYPE: XR KUB DATE OF EXAM: 05/01/2020 3:11 PM CLINICAL HISTORY: Weakness and pain. TECHNIQUE: Two supine KUB images of the abdomen are obtained. COMPARISON: CT abdomen and pelvis 2 days ago FINDINGS: Scattered gas is seen in non-distended stomach and small bowel loops. Gas is seen in non-di stended colon. Scattered left-sided pelvic phleboliths. Cholecystectomy clips. Surgical sutures and c lips right lower quadrant are redemonstrated . Atrial septal closure device noted. S-shaped scoliotic curvature. IMPRESSION: Overall nonobstructive bowel gas pattern remains present.
[2020-05-01 15:48] LABS: Large Platelets Present
[2020-05-01] MEDS ORDERED: SODIUM CHLORIDE 0.9% 500 ML 500 ML IV ONE (16:23)
[2020-05-01 16:52] LABS: Appearance,Urine Cloudy (Clear); Bacteria,Urine Rare /hpf; Bilirubin,Urine 1+ (Negative); Blood,Urine Negative (Negative); Color,Urine Yellow; Glucose,Urine (UA) Negative (Negative); Hyaline Casts,Urine 18 /lpf (0-2); Ketones,Urine 2+ (Negative); Leukocyte Esterase,Urine Large (Negative); Mucus,Urine Few /hpf; Nitrite,Urine Negative (Negative); Protein,Urine Trace (Negative); RBC,Urine 2 /hpf (0-5); Specific Gravity,Urine 1.028 (1.001-1.035); Squamous Epithelial Cell,Urine 7 /hpf (0-4); WBC,Urine 119 /hpf (0-5)
[2020-05-01] MEDS ORDERED: cefTRIAXone IN SWFI 1,000 MG/10 ML SYRINGE IVP STA (16:59)
[2020-05-01] MEDS ORDERED: NALOXONE 0.4 MG/ML 1 ML VIAL IV PRN (17:00)
[2020-05-01] MEDS: HYDROmorphone 0.5 MG/0.5 ML SYRINGE IVP PRN (17:06)
[2020-05-01] MEDS: SODIUM CHLORIDE 0.9% 1,000 ML IV SCH (20:19)
[2020-05-02] MEDS: SODIUM CHLORIDE 0.9% 1,000 ML IV SCH ×2 (08:27→21:04)
[2020-05-02] MEDS ORDERED: NITROGLYCERIN SL TABS 0.4 MG TAB SUBLINGUAL PRN (11:29)
--- NOTE | 2020-05-02 12:10 | P.HPIM ---
History of Present Illness H&P Date: 05/02/20 Huong Cooper, is a 64-year-old female who presented to [facility] emergency room with a chief complaint of generalized weakness and worsening mental status. She was evaluated in the emergency room, vital examination on presentation revealed a temperature of 97.9 pulse 62 respiration 22 blood pressure 137/84 pulse ox 99% on room air, white blood count was 3.5 INR 2.2 BUN slightly elevated at 24 creatinine 1.01 liver enzymes were elevated with AST at 70 ALT at 232 alkaline phosphatase at 157 urine analysis revealed evidence of urinary tract infection. Computed tomography scan of the brain revealed evidence of old infarct otherwise no acute abnormality, chest x-ray and abdomen x-ray did not reveal any evidence of acute abnormality, patient was started on IV Rocephin and was admitted to medical floor for further evaluation and treatment. Patient has a known history of multiple sclerosis, with severe debility requiring 24-hour care provided by her , she also has a known history of stroke in the past, she has a history of DVT maintained on Coumadin, she also has a known history of obstructive sleep apnea, hypertension, hyperlipidemia osteoarthritis and fibromyalgia. On review of systems patient is alert confused in no apparent distress, there is no fever or chills no headache or dizziness, she is complaining of abdominal discomfort otherwise I could not elicit any specific complaints. Past Medical History Past Medical History: Chest Pain / Angina, CVA/TIA, Fibromyalgia, Musculoskeletal Disorder, Neurologic Disorder, Osteoarthritis (OA), Pulmonary Embolus (PE), Sleep Apnea/CPAP/BIPAP, Thyroid Disorder Additional Past Medical History / Comment(s): MULTIPLE SCLEROSIS, 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 PAINFUL FOR HER TO LIE FLAT. HX OF NOSEBLEED JUL 2014 AND RECEIVED PLASMA TRANSFUSION. History of Any Multi-Drug Resistant Organisms: VRE Date of last positivie culture/infection: 10/24/09 confirmed with infectious disease nurse on 08/18/16. MDRO Source:: URINE Past Surgical History: Ablation, Appendectomy, Cholecystectomy, Hernia Repair, Hysterectomy Additional Past Surgical History / Comment(s): Incisional hernia repair, laparoscopic lysis of adhesions in 1987, ganglion cyst removal of the left wris t, patent foramen ovale patch in 2006, RF ablation for back pain. Past Anesthesia/Blood Transfusion Reactions: No Reported Reaction Past Psychological History: Depression Additional Psychological History / Comment(s): CELEXA to help sleep at night per . PT HAS DIFFICULTY W/SPEECH . HAS TO LOOK AT DIETARY MENU TO ORDER CAN'T DO IT BY PHONE. Pt resides with her spouse. She uses a cane to ambulate. She also has a walker.cpap machine Spouse drives her to appointments. Spouse assists her with some ADLs when needed. Smoking Status: Never smoker Past Alcohol Use History: None Reported Past Drug Use History: None Reported Additional Drug Use History / Comment(s): Lives at home with her requires some assistance with ADLs at times - Past Family History Mother Family Medical History: Hypertension Additional Family Medical History / Comment(s): osteoporosis Father Family Medical History: Dementia, Diabetes Mellitus Medications and Allergies Home Medications Medication Instructions Recorded Confirmed Type Aspirin 81 mg PO DAILY@0900 11/08/13 05/01/20 History Baclofen [Lioresal] 10 mg PO DAILY@169911/08/13 05/01/20 History Citalopram Hydrobromide [CeleXA] 40 mg PO HS@2100 11/08/13 05/01/20 History Ferrous Sulfate [Feosol] 325 mg PO DAILY@169911/08/13 05/01/20 History Furosemide [Lasix] 40 mg PO BID@0900,1700 11/08/13 05/01/20 History Montelukast [Singulair] 10 mg PO DAILY@169911/08/13 05/01/20 History Pantoprazole Sodium [Protonix] 40 mg PO DAILY@0600 11/08/13 05/01/20 History Potassium Chloride 20 meq PO BID@0900,1700 11/08/13 05/01/20 History Cholecalciferol [Vitamin D3 (25 2,000 unit PO DAILY@0911/18/15 05/01/20 History Mcg = 1000 Iu)] Fluticasone Nasal [place] [Flonase 1 spray EA NOSTRIL DAILY@0900 11/18/15 05/01/20 History Nasal [place]] Methylphenidate HCl [Ritalin] 20 mg PO BID@0900,1200 11/18/15 05/01/20 History Pravastatin Sodium [Pravachol] 20 mg PO HS@2100 11/18/15 05/01/20 History Pregabalin [Lyrica] 100 mg PO TID@0900,1700,2100 07/13/16 05/01/20 History Folic Acid 0.4 mg PO DAILY@0900 08/18/16 05/01/20 History Fexofenadine HCl 180 mg PO DAILY@1700 05/11/19 05/01/20 History Levothyroxine Sodium [Levoxyl] 75 mcg PO DAILY@0900 05/11/19 05/01/20 History Dimethyl Fumarate [Tecfidera] 240 mg PO BID@0600,1800 12/13/19 05/01/20 History Warfarin [Coumadin] 7.5 mg PO DAILY@1700 12/13/19 05/01/20 History Nitroglycerin Sl Tabs [Nitrostat] 0.4 mg SUBLINGUAL Q5M PRN 04/29/20 05/01/20 History fentaNYL 25MCG/HR PATCH [Duragesic 1 patch TRANSDERM DIRECTED 04/29/20 05/01/20 History 25MCG/HR] fentaNYL 50MCG/HR PATCH [Duragesic 1 patch TRANSDERM DIRECTED 05/01/20 05/01/20 History 50MCG/HR] Allergies Allergy/AdvReac Type Severity Reaction Status Date / Time adhesive Allergy SKIN Verified 05/01/20 16:20 [place]ELING Physical Exam Vitals: Vital Signs Temp Pulse Pulse Resp BP BP Pulse Ox 05/02/20 07:00 98.2 F 55 L 18 120/65 94 L 05/02/20 00:50 98.4 F 59 L 17 147/66 95 05/01/20 18:39 97.9 F 71 16 121/78 95 05/01/20 18:11 97.9 F 66 18 117/68 95 05/01/20 18:08 66 18 117/68 95 05/01/20 14:10 97.9 F 62 22 137/84 99 Intake and Output 05/01/20 05/02/20 05/02/20 22:59 06:59 14:59 Intake Total 225 Output Total 400 Balance 225 -400 Intake: Intake, IV Titration 225 Amount Sodium Chloride 0.9% 1, 225 000 ml @ 75 mls/hr IV . [id number] [facility] Rx#:[id number] Output: Urine 400 Other: Voiding Method Toilet # Voids 1 Weight 100 kg Results CBC & Chem 7: 05/01/20 14:43 05/01/20 14:43 Labs: Abnormal Lab Results - Last 24 Hours (Table) 05/01/20 05/01/20 05/01/20 Range/Units 14:43 14:43 14:43 WBC 3.5 L (3.8-10.6) k/uL Plt Count 90 L (150-450) k/uL Lymphocytes # 0.6 L (1.0-4.8) k/uL PT 21.1 H (9.0-12.0) sec INR 2.2 H (<1.2) APTT 33.8 H (22.0-30.0) sec Carbon Dioxide (22-30) mmol/L BUN (7-17) mg/dL Glucose (74-99) mg/dL AST (14-36) U/L ALT (4-34) U/L Alkaline Phosphatase (38-126) U/L Urine Appearance Cloudy H (Clear) Urine Protein Trace H (Negative) Urine Ketones 2+ H (Negative) Urine Bilirubin 1+ H (Negative) Ur Leukocyte Esterase Large H (Negative) Urine WBC 119 H (0-5) /hpf Ur Squamous Epith Cells 7 H (0-4) /hpf Urine Bacteria Rare H (None) /hpf Hyaline Casts 18 H (0-2) /lpf Urine Mucus Few H (None) /hpf 05/01/20 Range/Units 14:43 WBC (3.8-10.6) k/uL Plt Count (150-450) k/uL Lymphocytes # (1.0-4.8) k/uL PT (9.0-12.0) sec INR (<1.2) APTT (22.0-30.0) sec Carbon Dioxide 21 L (22-30) mmol/L BUN 24 H (7-17) mg/dL Glucose 110 H (74-99) mg/dL AST 70 H (14-36) U/L ALT 232 H (4-34) U/L Alkaline Phosphatase 157 H (38-126) U/L Urine Appearance (Clear) Urine Protein (Negative) Urine Ketones (Negative) Urine Bilirubin (Negative) Ur Leukocyte Esterase (Negative) Urine WBC (0-5) /hpf Ur Squamous Epith Cells (0-4) /hpf Urine Bacteria (None) /hpf Hyaline Casts (0-2) /lpf Urine Mucus (None) /hpf Microbiology - Last 24 Hours (Table) 05/01/20 14:43 Urine Culture - Preliminary Urine,Voided Thrombosis Risk Factor Assmnt - Choose All That Apply Other Risk Factors: Yes Each Risk Factor Represents 2 Points: Age 61-74 years Thrombosis Risk Factor Assessment Total Risk Factor Score: 2 Thrombosis Risk Factor Assessment Level: Low Risk Assessment and Plan Plan: 1. Urinary tract infection, urine culture obtained patient started on IV Rocephin 2. Dehydration with acute kidney injury 3. Elevated liver enzymes, at this time will hold Pravachol, will check liver ultrasound and consult gastroenterology 4. Abdominal pain, check abdominal ultrasound and monitor closely 5. Underlying history of advanced multiple sclerosis with debility 6. Mental status changes, likely due to delirium, on top of baseline dementia 7. Previous history of DVT maintained on Coumadin INR therapeutic will continue For DVT prophylaxis patient is on Coumadin For GI prophylaxis we will use omeprazole Will follow during this admission for medical management please see orders
[2020-05-02 12:50] LABS: INR 1.8 (<1.2); Prothrombin Time 17.4 sec (9.0-12.0)
[2020-05-02] MEDS: METHYLPHENIDATE HCL 10 MG TAB PO SCH (12:54)
--- NOTE | 2020-05-02 12:58 | US ---
EXAMINATION TYPE: US abdomen complete DATE OF EXAM: 05/02/2020 COMPARISON: CT 3 days ago.. CLINICAL HISTORY: abd pain, elevated liver enzymes. EXAM MEASUREMENTS: Liver Length: 13.5 cm Gallbladder Wall: Surgically absent CBD: 1.5 cm Spleen: 13.4 cm Right Kidney: 10.1 x 4.5 x 4.7 cm Left Kidney: 10.3 x 4.7 x 4.6 cm Pancreas: limited visualization Liver: wnl Gallbladder: Surgically absent CBD: measures 1.5 cm Spleen: mildly enlarged Right Kidney: small cyst measures 0.9 x 0.9 x 0.9 cm Left Kidney: No hydronephrosis or masses seen Upper IVC: wnl Abd Aorta: visualized portions wnl, bifurcation obscured by bowel gas. The visualized liver is heterogeneously hyperechoic. No suspicious masses or ductal dilatation on renee ges saved. The intrahepatic portion of the IVC and. Visualized portion abdominal aorta are within nor mal limits. Gallbladder noted surgically absent. Common bile duct is unremarkable. Suboptimal evalua tion of pancreas on images saved. The spleen is mildly enlarged in size. Kidneys are symmetric and f ree of hydronephrosis. No renal lesions are seen. IMPRESSION: Splenomegaly redemonstrated. Heterogeneous hyperechoic appearance of the liver could refl ect product of diffuse fatty infiltration and/or underlying hepatocellular disease.
[2020-05-02] MEDS ORDERED: WARFARIN 7.5 MG TAB PO SCH (17:00)
[2020-05-02] MEDS: FERROUS SULFATE 325 MG TAB PO SCH (18:04)
[2020-05-02] MEDS: MONTELUKAST 10 MG TAB PO SCH (18:04)
[2020-05-02] MEDS: POTASSIUM CHLORIDE ER 20 MEQ TAB.ER PO SCH (18:04)
[2020-05-02] MEDS: FUROSEMIDE 40 MG TAB PO SCH (18:05)
[2020-05-02] MEDS: BACLOFEN 10 MG TAB PO SCH (18:05)
[2020-05-02] MEDS: DIMETHYL FUMARATE 240 MG PO SCH (18:05)
[2020-05-02] MEDS: LORATADINE 10 MG TAB PO SCH (18:05)
[2020-05-02] MEDS: [UNRECOGNIZED DRUG - OTHER] PO SCH (18:05)
[2020-05-02] MEDS: PREGABALIN 100 MG CAP PO SCH ×2 (18:05→21:03)
[2020-05-02] MEDS ORDERED: PRAVASTATIN SODIUM 20 MG TAB PO SCH (21:00)
[2020-05-02] MEDS: CITALOPRAM HYDROBROMIDE 20 MG TAB PO SCH (21:03)
[2020-05-03] MEDS: [UNRECOGNIZED DRUG - OTHER] PO SCH ×2 (05:03→17:43)
[2020-05-03] MEDS: DIMETHYL FUMARATE 240 MG PO SCH ×2 (05:03→17:43)
[2020-05-03] MEDS: PANTOPRAZOLE 40 MG TABLET PO SCH (05:30)
[2020-05-03 06:36] LABS: Basophils % (A) 1 %; Eosinophils # (A) 0.1 k/uL (0-0.7); Eosinophils % (A) 3 %; HCT 42.8 % (34.0-46.0); HGB 14.1 gm/dL (11.4-16.0); Lymphocytes # (A) 0.8 k/uL (1.0-4.8); Lymphocytes % (A) 29 %; MCH 30.1 pg (25.0-35.0); MCHC 33.1 g/dL (31.0-37.0); MCV 90.9 fL (80.0-100.0); Monocytes # (A) 0.2 k/uL (0-1.0); Monocytes % (A) 6 %; Neutrophils # (A) 1.6 k/uL (1.3-7.7); Neutrophils % (A) 59 %; Platelet Count 94 k/uL (150-450); RDW 13.5 % (11.5-15.5); WBC 2.8 k/uL (3.8-10.6)
[2020-05-03 07:27] LABS: Large Platelets Present
[2020-05-03 07:28] LABS: Anisocytosis (M) Present
[2020-05-03] MEDS: ACETAMINOPHEN TAB 325 MG TAB PO PRN ×2 (08:17→21:27)
[2020-05-03] MEDS: CHOLECALCIFEROL 1,000 UNIT TAB PO SCH (08:18)
[2020-05-03] MEDS: FOLIC ACID 1 MG TAB PO SCH (08:18)
[2020-05-03] MEDS: FUROSEMIDE 40 MG TAB PO SCH ×2 (08:18→17:43)
[2020-05-03] MEDS: PREGABALIN 100 MG CAP PO SCH ×3 (08:18→21:26)
[2020-05-03] MEDS: POTASSIUM CHLORIDE ER 20 MEQ TAB.ER PO SCH ×2 (08:18→17:43)
[2020-05-03] MEDS: METHYLPHENIDATE HCL 10 MG TAB PO SCH ×2 (08:18→13:19)
[2020-05-03] MEDS: ASPIRIN 81 MG PO SCH (08:18)
[2020-05-03] MEDS: LEVOTHYROXINE 75 MCG TAB PO SCH (08:19)
[2020-05-03] MEDS: FLUTICASONE 50MCG/SPRAY NASAL 16GM EA NOSTRIL SCH (08:19)
[2020-05-03] MEDS: SODIUM CHLORIDE 0.9% 1,000 ML IV SCH ×2 (08:20→22:27)
[2020-05-03] MEDS: HYDROmorphone 0.5 MG/0.5 ML SYRINGE IVP PRN ×2 (09:55→13:28)
[2020-05-03 10:24] LABS: Albumin 3.9 g/dL (3.80-4.90); Albumin/Globulin Ratio 2.17 (1.60-3.17); Anion Gap 12.2 mmol/L (4.00-12.00); Calcium 9.1 mg/dL (8.7-10.3); Carbon Dioxide 25.8 mmol/L (21.6-31.8); Globulin 1.8 g/dL (1.6-3.3); Non-African American GFR(CKD) 58.7 (60.0-200.0); Potassium 3.5 mmol/L (3.5-5.5); Total Bilirubin 0.9 mg/dL (0.2-1.2); Total Protein 5.7 g/dL (6.2-8.2)
[2020-05-03 10:36] LABS: INR 1.55 (0.90-1.11); Prothrombin Time 16.3 sec (9.9-11.9)
--- NOTE | 2020-05-03 11:06 | P.PN ---
Subjective Progress Note Date: 05/03/20 Huong Cooper, is a 64-year-old female who presented to [facility] emergency room with a chief complaint of generalized weakness and worsening mental status. She was evaluated in the emergency room, vital examination on presentation revealed a temperature of 97.9 pulse 62 respiration 22 blood pressure 137/84 pulse ox 99% on room air, white blood count was 3.5 INR 2.2 BUN slightly elevated at 24 creatinine 1.01 liver enzymes were elevated with AST at 70 ALT at 232 alkaline phosphatase at 157 urine analysis revealed evidence of urinary tract infection. Computed tomography scan of the brain revealed evidence of old infarct otherwise no acute abnormality, chest x-ray and abdomen x-ray did not reveal any evidence of acute abnormality, patient was started on IV Rocephin and was admitted to medical floor for further evaluation and treatment. Patient has a known history of multiple sclerosis, with severe debility requiring 24-hour care provided by her , she also has a known history of stroke in the past, she has a history of DVT maintained on Coumadin, she also has a known history of obstructive sleep apnea, hypertension, hyperlipidemia osteoarthritis and fibromyalgia. On review of systems patient is alert confused in no apparent distress, there is no fever or chills no headache or dizziness, she is complaining of abdominal discomfort otherwise I could not elicit any specific complaints. On 05/03/2020 patient is alert and oriented resting comfortably in bed. AST 88 ALT 264 and alkaline phosphatase 239. GI services have been consulted. Patient denies any specific complaints at this time. She denies chest pain or shortness of breath. Patient denies nausea vomiting or diarrhea. Patient denies any urinary burning or frequency Objective - Vital Signs Vital signs: Vital Signs Temp 98 F 05/03/20 00:40 Pulse 52 L 05/03/20 00:40 Resp 20 05/03/20 00:40 BP 109/69 05/03/20 00:40 Pulse Ox 93 L 05/03/20 00:40 Intake & Output 05/02/20 05/03/20 05/03/20 19:59 06:59 18:59 Intake Total Balance Intake: Intake, IV Titration Amount Sodium Chloride 0.9% 1, 000 ml @ 75 mls/hr IV . [id number] [facility] Rx#:[id number] Oral Other: Voiding Method # Voids # Bowel Movements - Exam Head normocephalic Neck supple Lungs clear to auscultation bilaterally no wheezing or crackles Heart regular rate and rhythm S1-S2, no rub or gallop Abdomen is soft nontender nondistended positive bowel sounds no hepatosplenomegaly Extremities no edema Neuro alert and orientated to 3. Expressive aphasia. She has known advanced MS - Labs CBC & Chem 7: 05/03/20 05:45 05/03/20 05:45 Labs: Abnormal Lab Results - Last 24 Hours (Table) 05/02/20 05/03/20 Range/Units 12:11 05:45 WBC 2.8 L (3.8-10.6) k/uL Plt Count 94 L (150-450) k/uL Lymphocytes # 0.8 L (1.0-4.8) k/uL PT 17.4 H (9.0-12.0) sec INR 1.8 H (<1.2) Microbiology - Last 24 Hours (Table) 05/01/20 14:43 Urine Culture - Final Urine,Voided Assessment and Plan Assessment: 1. Urinary tract infection, urine culture obtained patient started on IV Rocephin 2. Dehydration with acute kidney injury 3. Elevated liver enzymes, at this time will hold Pravachol. Liver ultrasound completed showing splenomegaly redemonstrated. Heterogenous hyperechoic appearance of the liver could reflect product of diffuse fatty infiltration or underlying hepatocellular disease. GI services following. Hepatic panel ordered 4. Abdominal pain, check abdominal ultrasound and monitor closely 5. Underlying history of advanced multiple sclerosis with debility 6. Mental status changes, likely due to delirium, on top of baseline dementia 7. Previous history of DVT maintained on Coumadin INR therapeutic will continue For DVT prophylaxis patient is on Coumadin For GI prophylaxis we will use omeprazole GI and neurology services consulted Rocephin for urinary tract infection Plan: 1. Urinary tract infection, urine culture obtained patient started on IV Rocephin 2. Dehydration with acute kidney injury 3. Elevated liver enzymes, at this time will hold Pravachol, will check liver ultrasound and consult gastroenterology 4. Abdominal pain, check abdominal ultrasound and monitor closely 5. Underlying history of advanced multiple sclerosis with debility 6. Mental status changes, likely due to delirium, on top of baseline dementia 7. Previous history of DVT maintained on Coumadin INR therapeutic will continue For DVT prophylaxis patient is on Coumadin For GI prophylaxis we will use omeprazole Will follow during this admission for medical management please see orders
--- NOTE | 2020-05-03 11:34 | CONS ---
CONSULTATION DATE OF SERVICE: May 03, 2020. REQUESTING PHYSICIAN: Dr. Paredes. REASON FOR CONSULTATION: Elevated LFTs. HISTORY OF PRESENT ILLNESS: The patient is a 64-year-old pleasant white female who was admitted to hospital because of generalized weakness, altered mental status and subsequently was diagnosed with urinary tract infection and was started on broad-spectrum antibiotics. At the time of admission to the hospital, she was noted to have elevated LFTs with AST at 70, ALT is 232, alkaline phosphatase at 157 and normal bilirubin. The patient is somewhat a poor historian. She is extremely confused. As per the nursing staff, she has been confused at the time of admission hospital but in fact, she is doing much better after she was started on broad-spectrum antibiotics. On review of her records, the patient was noted to have normal serum transaminases on March 2020. She came to the emergency room on April 29 and AST was 204 and ALT was 406. At that time, alkaline phosphatase was 149. PAST MEDICAL HISTORY: Significant for hypertension, hyperlipidemia on statin therapy, history of CVA in the past, recurrent UTI, sleep apnea, history of pulmonary embolism, degenerative joint disease. PAST SURGICAL HISTORY: Appendectomy, cholecystectomy, hernia repair, hysterectomy, incisional hernia repair, laparoscopic lysis of adhesions. Ganglion cyst removal. MEDICATIONS: Medications at home include aspirin, Lioresal, Celexa, Feosol, Lasix, Singulair, Protonix, potassium chloride, Flonase, Ritalin, Pravachol, Lyrica, , Levoxyl, Coumadin, Nitrostat, Duragesic patch, diametral fumarate. ALLERGIES: TO ADHESIVES. SOCIAL HISTORY: No smoking. No alcohol use. FAMILY HISTORY: Mother hypertension. Father diabetes mellitus. REVIEW OF SYSTEMS: CARDIOPULMONARY: She denies any chest pain or shortness of breath. : No dysuria or hematuria. MUSCULOSKELETAL unremarkable. SKIN unremarkable. ENDOCRINE unremarkable. NEUROLOGY: Mild confusion. ENT: Vision unremarkable. CONSTITUTIONAL: No recent weight loss. No fever, chills, night sweats. PHYSICAL EXAMINATION: She appears comfortable. No apparent distress. VITAL SIGNS: Stable. Blood pressure is 128/68, pulse rate 50, temperature 97.8. HEENT examination unremarkable. Conjunctivae pink. Sclerae anicteric. Oral cavity no lesions. NECK: No JVD or lymph node enlargement. CHEST was clear to auscultation. HEART: Regular rate and rhythm. ABDOMEN: Soft. Bowel sounds are positive. No organomegaly. EXTREMITIES: No pedal edema. SKIN: No rashes. NEURO: She is alert and oriented x3. No focal deficits. LABS: Done 2 days ago on April 29, AST was 204. Yesterday it was 70, ALT was 406. Yesterday it was 232. No labs available from today. T-bilirubin is normal. Alkaline phosphatase is 157. She did have ultrasound of abdomen that showed heterogeneous appearing liver consistent with hepatocellular disease versus fatty infiltration. Gallbladder is absent. IMPRESSION: 1. Acute elevation of serum transaminases for the last 3 days duration and serum transaminases in March of 2020 within normal limits. Likely this is medication induced hepatitis, but underlying chronic liver disease cannot be excluded. The patient is very confused and hence I could not obtain any further history if she was started on any new medications recently. She does have history of hypercholesteremia. I see that she has been on Pravachol which has been discontinued by Dr. Paredes yesterday. Serum transaminases have improved yesterday. No labs available from today. 2. Acute urinary tract infection, on broad-spectrum antibiotics. 3. History of cerebrovascular accident with mild confusion. 4. History of atrial fibrillation on Coumadin. 5. History of hypothyroidism. RECOMMENDATIONS: 1. Monitor LFTs on a close basis. 2. Obtain hepatitis serologies for A, B and C. 3. Agree with stopping statins for now. 4. Continue with broad-spectrum antibiotics. 5. Repeat labs in the morning and follow with you closely. Thank you for this consultation. MMODL / IJN: [id number] /
[2020-05-03] MEDS ORDERED: WARFARIN 5 MG TAB PO ONE (17:00)
[2020-05-03 17:02] LABS: Hepatitis A Antibody IgM Non-Reactive (Non-Reactive); Hepatitis B Core IgM Non-Reactive (Non-Reactive); Hepatitis B Surface Antigen Non-Reactive (Non-Reactive); Hepatitis C IgG Antibody Non-Reactive (Non-Reactive)
[2020-05-03] MEDS: FERROUS SULFATE 325 MG TAB PO SCH (17:43)
[2020-05-03] MEDS: LORATADINE 10 MG TAB PO SCH (17:43)
[2020-05-03] MEDS: BACLOFEN 10 MG TAB PO SCH (17:43)
[2020-05-03] MEDS: MONTELUKAST 10 MG TAB PO SCH (17:43)
[2020-05-03] MEDS: CITALOPRAM HYDROBROMIDE 20 MG TAB PO SCH (21:26)
[2020-05-04] MEDS: PANTOPRAZOLE 40 MG TABLET PO SCH (05:17)
[2020-05-04] MEDS: [UNRECOGNIZED DRUG - OTHER] PO SCH ×2 (05:17→16:53)
[2020-05-04] MEDS: DIMETHYL FUMARATE 240 MG PO SCH ×2 (05:17→16:53)
[2020-05-04 07:27] LABS: Basophils # (A) 0.1 k/uL (0-0.2); Basophils % (A) 1 %; Eosinophils # (A) 0.1 k/uL (0-0.7); Eosinophils % (A) 2 %; HCT 42.6 % (34.0-46.0); HGB 14.2 gm/dL (11.4-16.0); Lymphocytes # (A) 0.9 k/uL (1.0-4.8); Lymphocytes % (A) 20 %; MCH 30.3 pg (25.0-35.0); MCHC 33.3 g/dL (31.0-37.0); MCV 90.8 fL (80.0-100.0); Mean Platelet Volume 10.7; Monocytes # (A) 0.3 k/uL (0-1.0); Monocytes % (A) 6 %; Neutrophils # (A) 2.8 k/uL (1.3-7.7); Neutrophils % (A) 67 %; Platelet Count 103 k/uL (150-450); RBC 4.69 m/uL (3.80-5.40); RDW 13.3 % (11.5-15.5); WBC 4.2 k/uL (3.8-10.6)
[2020-05-04] MEDS: POTASSIUM CHLORIDE ER 20 MEQ TAB.ER PO SCH ×2 (09:40→16:53)
[2020-05-04] MEDS: FOLIC ACID 1 MG TAB PO SCH (09:40)
[2020-05-04] MEDS: METHYLPHENIDATE HCL 10 MG TAB PO SCH ×2 (09:40→12:54)
[2020-05-04] MEDS: LEVOTHYROXINE 75 MCG TAB PO SCH (09:40)
[2020-05-04] MEDS: FUROSEMIDE 40 MG TAB PO SCH ×2 (09:40→16:53)
[2020-05-04] MEDS: CHOLECALCIFEROL 1,000 UNIT TAB PO SCH (09:40)
[2020-05-04] MEDS: PREGABALIN 100 MG CAP PO SCH ×3 (09:40→21:42)
[2020-05-04] MEDS: ASPIRIN 81 MG PO SCH (09:40)
[2020-05-04] MEDS: FLUTICASONE 50MCG/SPRAY NASAL 16GM EA NOSTRIL SCH (09:40)
--- NOTE | 2020-05-04 10:57 | P.CNNES ---
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 History is obtained from medical records. I attempted to contact patient's via phone and received voice message. Neurology is consulted for altered mental status and possible MS exacerbation. The patient has been sleeping more than usual. She's been complaining of abdominal pain. Denies fever or vomiting. Patient has a poor appetite. Workup in the hospital consisted of: Initial vital signs his blood pressure of 137/84 with a heart rate of 62, temperature of 97.9 Fahrenheit oral, respiratory of 22, pulse ox of 99% at room air. CT of the head was reported as no acute intracranial hemorrhage or midline shift. There is mild diffuse age-related cerebral atrophy and chronic small vessel ischemic changes along with significant old left-sided infarct redemonstrated. I personally reviewed the CT of the head and I felt the patient had encephalomalacia over the left predominantly temporal and central parietal lesion. Initial white blood cell is 3.5 repeated this 2.8. The platelet is 90. Patient the liver function tests as ALTs D 70 ALTs to 32 and alkaline phosphatase is 157. Urinalysis was significant for urinary tract infection. She was seen by Dr. Villasenor, neuro-hospitalist at [facility] on 05/13/2019 for possible MS exacerbation. He stated that the patient has a recent possible MS exacerbation for which is she is on high-dose tapering dose of oral prednisone by her Neurologist (Dr. Elizabeth). Her neurologist felt she had weakness in her legs as a result he placed her on prednisone tapering dose. He did not feel there is any signs of the stroke or definite of MS exacerbation. Patient was being managed on prednisone 50 mg daily for 5 days for possible MS exacerbation through her outside neurologist. And he recommended the patient to follow-up with her neurologist. Of note per Dr. Teixeira's note, patient was on T icfidera 240mg bid for multiple sclerosis by her neurologist at. He felt that upon reviewing the MRI of the brain that he didn't feel like there is any evidence of multiple sclerosis. [facility] last MRI of the brain was on 04/28/2018 which showed no acute the process. There is evidence of left MCA infarct. Mild diffuse meningeal enhancement. Her MRI of the cervical spine from 09/18/2017 showed vague area of increased signal within the cervical spinal cord at the C2- C3 and C3-C4. Demyelinating difficult to exclude. Stable multilevel degenerative disc disease with spondylosis and disc endplate complex resulting and there is borderline to mild central stenosis and for male encroachment at multiple levels. I personally reviewed the MRI the brain and there is no edema in the lesions seen. There is no MRI of the C-spine the image I can see the resulting a reports. Review of Systems Review of system is limited but the prone positive and negative as per HPI. Past Medical History Past Medical History: Chest Pain / Angina, CVA/TIA, Fibromyalgia, Musculoskeletal Disorder, Neurologic Disorder, Osteoarthritis (OA), Pulmonary Embolus (PE), Sleep Apnea/CPAP/BIPAP, Thyroid Disorder Additional Past Medical History / Comment(s): MULTIPLE SCLEROSIS, 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 PAINFUL FOR HER TO LIE FLAT. HX OF NOSEBLEED JUL 2014 AND RECEIVED PLASMA TRANSFUSION. History of Any Multi-Drug Resistant Organisms: VRE Date of last positivie culture/infection: 10/24/09 confirmed with infectious disease nurse on 08/18/16. MDRO Source:: URINE Past Surgical History: Ablation, Appendectomy, Cholecystectomy, Hernia Repair, Hysterectomy Additional Past Surgical History / Comment(s): Incisional hernia repair, laparo scopic lysis of adhesions in 1987, ganglion cyst removal of the left wrist, patent foramen ovale patch in 2006, RF ablation for back pain. Past Anesthesia/Blood Transfusion Reactions: No Reported Reaction Past Psychological History: Depression Additional Psychological History / Comment(s): CELEXA to help sleep at night per . PT HAS DIFFICULTY W/SPEECH . HAS TO LOOK AT DIETARY MENU TO ORDER CAN'T DO IT BY PHONE. Pt resides with her spouse. She uses a cane to ambulate. She also has a walker.cpap machine Spouse drives her to appointments. Spouse assists her with some ADLs when needed. Smoking Status: Never smoker Past Alcohol Use History: None Reported Past Drug Use History: None Reported Additional Drug Use History / Comment(s): Lives at home with her requires some assistance with ADLs at times - Past Family History Mother Family Medical History: Hypertension Additional Family Medical History / Comment(s): osteoporosis Father Family Medical History: Dementia, Diabetes Mellitus Medications and Allergies Home Medications Medication Instructions Recorded Confirmed Type Aspirin 81 mg PO DAILY@89911/08/13 05/01/20 History Baclofen [Lioresal] 10 mg PO DAILY@169911/08/13 05/01/20 History Citalopram Hydrobromide [CeleXA] 40 mg PO HS@209911/08/13 05/01/20 History Ferrous Sulfate [Feosol] 325 mg PO DAILY@169911/08/13 05/01/20 History Furosemide [Lasix] 40 mg PO BID@0900,169911/08/13 05/01/20 History Montelukast [Singulair] 10 mg PO DAILY@169911/08/13 05/01/20 History Pantoprazole Sodium [Protonix] 40 mg PO DAILY@0611/08/13 05/01/20 History Potassium Chloride 20 meq PO BID@0900,169911/08/13 05/01/20 History Cholecalciferol [Vitamin D3 (25 2,000 unit PO DAILY@0911/18/15 05/01/20 History Mcg = 1000 Iu)] Fluticasone Nasal [place] [Flonase 1 spray EA NOSTRIL DAILY@0911/18/15 05/01/20 History Nasal [place]] Methylphenidate HCl [Ritalin] 20 mg PO BID@0900,1200 11/18/15 05/01/20 History Pravastatin Sodium [Pravachol] 20 mg PO HS@209911/18/15 05/01/20 History Pregabalin [Lyrica] 100 mg PO TID@0900,1700,209907/13/16 05/01/20 History Folic Acid 0.4 mg PO DAILY@0900 08/18/16 05/01/20 History Fexofenadine HCl 180 mg PO DAILY@169905/11/19 05/01/20 History Levothyroxine Sodium [Levoxyl] 75 mcg PO DAILY@0900 05/11/19 05/01/20 History Dimethyl Fumarate [Tecfidera] 240 mg PO BID@0600,1800 12/13/19 05/01/20 History Warfarin [Coumadin] 7.5 mg PO DAILY@1700 12/13/19 05/01/20 History Nitroglycerin Sl Tabs [Nitrostat] 0.4 mg SUBLINGUAL Q5M PRN 04/29/20 05/01/20 History fentaNYL 25MCG/HR PATCH [Duragesic 1 patch TRANSDERM DIRECTED 04/29/20 05/01/20 History 25MCG/HR] fentaNYL 50MCG/HR PATCH [Duragesic 1 patch TRANSDERM DIRECTED 05/01/20 05/01/20 History 50MCG/HR] Allergies Allergy/AdvReac Type Severity Reaction Status Date / Time adhesive Allergy SKIN Verified 05/01/20 16:20 PEELING Physical Examination - Vital Signs Vital Signs: Vital Signs Temp Pulse Resp BP Pulse Ox 05/04/20 07:00 97.6 F 44 L 16 123/77 97 05/04/20 01:30 97.7 F 54 L 20 121/74 95 05/03/20 20:10 97.7 F 61 20 121/68 97 05/03/20 14:34 97.9 F 58 L 18 125/76 93 L Intake and Output 05/03/20 05/04/20 05/04/20 22:59 06:59 14:59 Intake Total 465 200 Output Total 600 Balance -135 200 Intake: Intake, IV Titration 225 Amount Sodium Chloride 0.9% 1, 225 000 ml @ 75 mls/hr IV . [id number] [facility] Rx#:[id number] Oral 240 200 Output: Urine 600 Other: Voiding Method Toilet Toilet Bedside Commode Bedside Commode # Voids 2 GENERAL: The patient is lying in sitting on side of chair andhaving breakfast. She does not seem in acute distress. CHEST: The heart rate is regular rate rhythm. No murmurs to auscultation. No carotid bruit bilaterally. LUNG: Clear to auscultation bilaterally no wheezing noted throughout. Not labored breathing. ABDOMEN/GI: Bowel sounds present in all 4 quadrants. No tenderness to palpation throughout. NEUROLOGICAL: Higher mental function: The patient is awake, alert, oriented to self. She stated it she was at doctor's office. For month and day. She used both her finger showing 11 and said two (for 05/04). Has predominately expressive aphasia (has mild receptive aphasia at times),. She has paraprasic errors. Patient is following commands via pontomine. Cranial nerves: The pupils are round, equal and reactive to light. Visual lazar are full to threat throughout. Extraocular movement is intact no nystagmus is noted. Facial sensatiom because of cooperation. Mild right lower facial droop and symmetrical with smile. No dysarthria. Tongue is midline and moved [id number] without any difficulty. No dysarthria is noted. Shoulder shrug is normal bilaterally. Motor: Gait is defered. The strength is 5 over 5 throughout bilateral upper extremities and no focality noted in bilateral lower extremities (was limited because of pain in lower extremities). Normal tone and bulk. Cerebellum: Normal finger to nose bilaterally. Sensation: Unable to assess light touch because of cooperation. Reflexes (right/left): 2+ throughout bilateral upper extremities but uanble to assess lower because of pain. Plantars are downgoing bilaterally. Results Calcium of the temporal 0, magnesium 2.0, albumin is 4.3. Coagulation study: Initial is PT of 21.1, INR 2.2 and PTT of 20 and 33.8. Urinalysis: Appears cloudy, QT was 2 positive, then leukocyte esterase was large nitrate was negative, urine white blood cell 119 urine bacteria is rare. Hepatitis a IgM antibody is nonreactive hepatitis B surface antigen is nonreactive, hepatitis B core IgM antibody is nonreactive, hepatitis C IgG antibody is a nonreactive as well. - Laboratory Findings CBC and BMP: 05/04/20 06:39 05/03/20 05:45 Abnormal Lab Findings: Abnormal Labs 05/01/20 05/01/20 05/01/20 14:43 14:43 14:43 WBC 3.5 L Plt Count 90 L Lymphocytes # 0.6 L PT 21.1 H INR 2.2 H APTT 33.8 H Carbon Dioxide Anion Gap BUN Est GFR (CKD-EPI)NonAf Glucose AST ALT Alkaline Phosphatase Total Protein Urine Appearance Cloudy H Urine Protein Trace H Urine Ketones 2+ H Urine Bilirubin 1+ H Ur Leukocyte Esterase Large H Urine WBC 119 H Ur Squamous Epith Cells 7 H Urine Bacteria Rare H Hyaline Casts 18 H Urine Mucus Few H 05/01/20 05/02/20 05/03/20 14:43 12:11 05:45 WBC 2.8 L Plt Count 94 L Lymphocytes # 0.8 L PT 17.4 H INR 1.8 H APTT Carbon Dioxide 21 L Anion Gap BUN 24 H Est GFR (CKD-EPI)NonAf Glucose 110 H AST 70 H ALT 232 H Alkaline Phosphatase 157 H Total Protein Urine Appearance Urine Protein Urine Ketones Urine Bilirubin Ur Leukocyte Esterase Urine WBC Ur Squamous Epith Cells Urine Bacteria Hyaline Casts Urine Mucus 05/03/20 05/03/20 05/04/20 05:45 05:45 06:39 WBC Plt Count 103 L Lymphocytes # 0.9 L PT 16.3 H INR 1.55 H APTT Carbon Dioxide Anion Gap 12.20 H BUN Est GFR (CKD-EPI)NonAf 58.7 L Glucose AST 88 H ALT 264 H Alkaline Phosphatase 239 H Total Protein 5.7 L Urine Appearance Urine Protein Urine Ketones Urine Bilirubin Ur Leukocyte Esterase Urine WBC Ur Squamous Epith Cells Urine Bacteria Hyaline Casts Urine Mucus Assessment and Plan Assessment: This is a 64-year-old woman with medical history of 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 Neurology is consulted for altered mental status and possible MS exacerbation. Toxic metabolic encephalopathy: Multifactorial: Likely due to urinary tract infection, elevated liver function test---resolved (she seems back to baseline according to previous note) Left MCA territory stroke with residual expressive aphasia and mild right lower facial droop Relapsing-remitting multiple sclerosis that was diagnosed by her outside neurologist--No acute exacerbation. Underlying infection can cause pseudoex acerbattion. Hypertension Urinary tract infection Elevated liver function tests (ALT>AST) hyperlipidemia obstructive sleep apnea DVT on Coumadin Fibromyalgia Plan: Regarding the altered mental status is likely due to underlying infection, UTI as well as elevated the LFT. I will order vitamin B12 and folate level and ammonia level Last hemoglobin A1c is 6.0 on 12/04/2019 and there is no need to repeat it. Last lipid profile as on 20: Triglyceride 164, cholesterol of 186, LDL 73 and HDL of 80. There is no need to repeat it. TSH on 12/04/2019: Is 1.44 which is normal and there is no need to repeat it. An EEG is not warranted at this time time since the this does not seem like a seizure and per medical record the patient is currently back to her baseline. PT and OT are consulted. Regarding the patient old stroke patient is currently on aspirin 81 mg. And home statin (Pravastatin 20mg) is held because of the elevated liver function test. Once they're stabilized recommend placing the patient on home Pravastatin 20mg daily. Patient is on warfarin for her history of the DVTs. Regarding the patient diagnosis by her neurologist of relapsing remitting multiple sclerosis, I personally reviewed the MRI of the brain on 04/29/2018 and there is no lesion supporting multiple sclerosis. MRI of the cervical spine on 08/2017 date area of increased signal within the cervical spine at the C2-C3 and C3-C4. I will not repeat the MRI the brain or the C-spine since I don't think the patient has exacerbation of her multiple sclerosis. I attempted to contact the patient's spouse to find out the diagnosis of for multiple sclerosis but no response. Regarding the management of the urinary tract infection and the elevated liver function tests all defer that management to the primary team. I will attempt to contact the patient's spouse again later today. Thank You for the consultation. Kannan Reaves M.D. Neuro-hospitalist Time with Patient: Greater than 30
[2020-05-04 11:02] LABS: INR 1.48 (0.90-1.11); Prothrombin Time 15.6 sec (9.9-11.9)
[2020-05-04 11:23] LABS: African American GFR (CKD) 60.6 (60.0-200.0); Albumin/Globulin Ratio 2.5 (1.60-3.17); Anion Gap 8.4 mmol/L (4.00-12.00); BUN/Creat Ratio 10.91 Ratio (12.00-20.00); Calcium 9.2 mg/dL (8.7-10.3); Carbon Dioxide 31.6 mmol/L (21.6-31.8); Globulin 1.6 g/dL (1.6-3.3); Non-African American GFR(CKD) 52.3 (60.0-200.0); Potassium 3.6 mmol/L (3.5-5.5); Total Protein 5.6 g/dL (6.2-8.2)
--- NOTE | 2020-05-04 13:16 | P.PN ---
Subjective Progress Note Date: 05/04/20 Principal diagnosis: Elevated LFTs Patient was seen and examined sitting up at the bedside. She was having breakfast. She denies any abdominal pain, nausea, or vomiting. Patient does not want appropriately when asking if she started any new medications recently. She was admitted for mental status changes, was found to have a urinary tract infection and started on antibiotics. She was on protocol which has been discontinued. Abdominal ultrasound had shown splenomegaly, and heterogeneous liver consistent with fatty liver or underlying hepatocellular disease. Objective - Vital Signs Vital signs: Vital Signs Temp 97.6 F 05/04/20 07:00 Pulse 44 L 05/04/20 08:00 Resp 16 05/04/20 08:00 BP 123/77 05/04/20 07:00 Pulse Ox 97 05/04/20 07:00 Intake & Output 05/03/20 05/04/20 05/04/20 18:59 06:59 18:59 Intake Total 780 425 Output Total 1500 Balance -720 425 Intake: Intake, IV Titration 225 Amount Sodium Chloride 0.9% 1, 225 000 ml @ 75 mls/hr IV . [id number] [facility] Rx#:[id number] Oral 780 200 Output: Urine 1500 Other: Voiding Method Toilet Toilet Toilet Bedside Commode Bedside Commode Bedside Commode # Voids 2 - Exam General appearance: The patient is alert, oriented, in no acute distress. HET: Head is normocephalic and atraumatic. Conjunctiva pink. Sclera anicteric. Neck: Supple without lymphadenopathy. Abdomen: Soft, nontender, nondistended with bowel sounds. No guarding or rigidity. Extremities: Normal skin color and turgor. No pedal edema Neurological: No focal deficits. Alert and oriented 3. - Labs CBC & Chem 7: 05/04/20 06:39 05/04/20 06:39 Labs: Abnormal Lab Results - Last 24 Hours (Table) 05/04/20 05/04/20 05/04/20 Range/Units 06:39 06:39 06:39 Plt Count 103 L (150-450) k/uL Lymphocytes # 0.9 L (1.0-4.8) k/uL PT 15.6 H (9.9-11.9) sec INR 1.48 H (0.90-1.11) Est GFR (CKD-EPI)NonAf 52.3 L (60.0-200.0) BUN/Creatinine Ratio 10.91 L (12.00-20.00) Ratio AST 41 H (13-35) U/L ALT 176 H (8-44) U/L Alkaline Phosphatase 208 H (41-126) U/L Total Protein 5.6 L (6.2-8.2) g/dL Assessment and Plan (1) Elevated liver enzymes Narrative/Plan: Acute elevation of serum transaminases for the last 3 days duration. Patient has had prior history of elevated serum transaminases however in March 2020 they were within normal limits. Likely this is medication induced hepatitis but underlying chronic liver disease cannot be excluded. Dominant ultrasound showed splenomegaly, heterogeneous liver that can be consistent with fatty liver or hepatocellular disease. Serum transaminases improved today. Current Visit: No Status: Acute Code(s): R74.8 - ABNORMAL LEVELS OF OTHER SERUM ENZYMES SNOMED Code(s): 734029499 (2) UTI (urinary tract infection) Narrative/Plan: On broad-spectrum antibiotics Current Visit: Yes Status: Acute Code(s): N39.0 - URINARY TRACT INFECTION, SITE NOT SPECIFIED SNOMED Code(s): 36232854 (3) History of pulmonary embolism Narrative/Plan: On Coumadin Current Visit: No Status: Chronic Code(s): Z86.711 - PERSONAL HISTORY OF PULMONARY EMBOLISM SNOMED Code(s): 392106223 (4) History of stroke Narrative/Plan: Patient has history of cerebrovascular accident with visual right-sided weakness and mild confusion. Current Visit: No Status: Chronic Code(s): Z86.73 - PRSNL HX OF TIA (TIA), AND CEREB INFRC W/O RESID DEFICITS SNOMED Code(s): 373589763 (5) Hypothyroidism Current Visit: No Status: Chronic Code(s): E03.9 - HYPOTHYROIDISM, UNSPECIFIED SNOMED Code(s): 91605796 Plan: 1. Supportive care 2. Monitor LFTs daily basis 3. Hepatitis serologies, negative for A, B, and C 4. Continue to hold statins for now 5. Continue antibiotics as ordered Continue to follow you closely The impression and plan of care has been dictated as directed. I performed a history and examination of this patient, discussed the same with the dictator. I agree with the dictator's note ,documented as a scribe. Any additional findings or plans will be noted.
--- NOTE | 2020-05-04 13:37 | CDI ---
Documentation Clarification Form Date: 05/04/2020 01:35:13 PM From: Kirstin Worley RN, CCDS Admit Date: 05/01/2020 05:01:00 PM Patient Name: Huong Cooper Visit Number: [id number] ATTENTION: The Clinical Documentation Specialists (CDI) and [facility] Coding Staff appreciate your assistance in clarifying documentation. Please respond to the clarification below the line at the bottom and electronically sign. The CDI & [facility] Coding staff will review the response and follow-up if needed. Please note: Queries are made part of the Legal Health Record. If you have any questions, please contact the author of this message via ITS. Dr. Sarah Paredes Atrial Fibrillation is documented in the GI consult and requires further specificity History/Risk Factors: CVA, fibromyagia, PE, Atrial Fib Clinical Indicators: 05/03 GI Consult: "History of atrial fibrillation on Coumadin" 05/01 EKG: SB Treatment: Coumadin dosing and monitoring In your professional opinion, can you please clarify the type of Atrial Fibrillation, if known? Chronic/Permanent Paroxysmal Persistent Other, please specify Unable to determine (Last Revision: October 2017) no history of afib on coumadin for PE MTDD
[2020-05-04] MEDS: ACETAMINOPHEN TAB 325 MG TAB PO PRN (13:38)
[2020-05-04] MEDS: MONTELUKAST 10 MG TAB PO SCH (16:53)
[2020-05-04] MEDS: FERROUS SULFATE 325 MG TAB PO SCH (16:53)
[2020-05-04] MEDS: LORATADINE 10 MG TAB PO SCH (16:53)
[2020-05-04] MEDS: BACLOFEN 10 MG TAB PO SCH (16:53)
--- NOTE | 2020-05-04 17:59 | P.PN ---
Subjective Progress Note Date: 05/04/20 Huong Cooper, is a 64-year-old female who presented to [facility] emergency room with a chief complaint of generalized weakness and worsening mental status. She was evaluated in the emergency room, vital examination on presentation revealed a temperature of 97.9 pulse 62 respiration 22 blood pressure 137/84 pulse ox 99% on room air, white blood count was 3.5 INR 2.2 BUN slightly elevated at 24 creatinine 1.01 liver enzymes were elevated with AST at 70 ALT at 232 alkaline phosphatase at 157 urine analysis revealed evidence of urinary tract infection. Computed tomography scan of the brain revealed evidence of old infarct otherwise no acute abnormality, chest x-ray and abdomen x-ray did not reveal any evidence of acute abnormality, patient was started on IV Rocephin and was admitted to medical floor for further evaluation and treatment. Patient has a known history of multiple sclerosis, with severe debility requiring 24-hour care provided by her , she also has a known history of stroke in the past, she has a history of DVT maintained on Coumadin, she also has a known history of obstructive sleep apnea, hypertension, hyperlipidemia osteoarthritis and fibromyalgia. On review of systems patient is alert confused in no apparent distress, there is no fever or chills no headache or dizziness, she is complaining of abdominal discomfort otherwise I could not elicit any specific complaints. On 05/03/2020 patient is alert and oriented resting comfortably in bed. AST 88 ALT 264 and alkaline phosphatase 239. GI services have been consulted. Patient denies any specific complaints at this time. She denies chest pain or shortness of breath. Patient denies nausea vomiting or diarrhea. Patient denies any urinary burning or frequency. On 05/04/2020 patient was seen and examined on the medical floor she is alert and oriented in no distress she is complaining of pain in the suprapubic area otherwise she denies any complaints at this time there is no fever or chills no headache or dizziness no chest pain no shortness of breath no cough no nausea or vomiting no abdominal pain no diarrhea no burning with urination no frequency or urgency and no hematuria Objective - Vital Signs Vital signs: Vital Signs Temp 97.5 F L 05/04/20 14:44 Pulse 78 05/04/20 14:44 Resp 16 05/04/20 14:44 BP 118/59 05/04/20 14:44 Pulse Ox 93 L 05/04/20 14:44 Intake & Output 05/03/20 05/04/20 05/04/20 18:59 06:59 18:59 Intake Total 780 425 50 Output Total 1500 Balance -720 425 50 Intake: Intake, IV Titration 225 50 Amount Sodium Chloride 0.9% 1, 225 000 ml @ 75 mls/hr IV . [id number] [facility] Rx#:[id number] cefTRIAXone 1 gm In 50 Sodium Chloride 0.9% 50 ml @ 100 mls/hr IVPB Q24HR [facility] Rx#:[id number] Oral 780 200 Output: Urine 1500 Other: Voiding Method Toilet Toilet Toilet Bedside Commode Bedside Commode Bedside Commode # Voids 2 - Exam Head normocephalic Neck supple Lungs clear to auscultation bilaterally no wheezing or crackles Heart regular rate and rhythm S1-S2, no rub or gallop Abdomen is soft nontender nondistended positive bowel sounds no hepatosplenomegaly Extremities no edema Neuro alert and orientated to 3. Expressive aphasia. She has known advanced MS - Labs CBC & Chem 7: 05/04/20 06:39 05/04/20 06:39 Labs: Abnormal Lab Results - Last 24 Hours (Table) 05/04/20 05/04/20 05/04/20 Range/Units 06:39 06:39 06:39 Plt Count 103 L (150-450) k/uL Lymphocytes # 0.9 L (1.0-4.8) k/uL PT 15.6 H (9.9-11.9) sec INR 1.48 H (0.90-1.11) Est GFR (CKD-EPI)NonAf 52.3 L (60.0-200.0) BUN/Creatinine Ratio 10.91 L (12.00-20.00) Ratio AST 41 H (13-35) U/L ALT 176 H (8-44) U/L Alkaline Phosphatase 208 H (41-126) U/L Total Protein 5.6 L (6.2-8.2) g/dL Assessment and Plan Plan: 1. Urinary tract infection, urine culture obtained patient started on IV Rocephin 2. Dehydration with acute kidney injury 3. Elevated liver enzymes, at this time will hold Pravachol, will check liver ultrasound and consult gastroenterology 4. Abdominal pain, check abdominal ultrasound and monitor closely 5. Underlying history of advanced multiple sclerosis with debility 6. Mental status changes, likely due to delirium, on top of baseline dementia 7. Previous history of DVT maintained on Coumadin INR therapeutic will continue 8. Pain in the suprapubic area with check post void residual 9. Physical therapy to ambulate patient For DVT prophylaxis patient is on Coumadin For GI prophylaxis we will use omeprazole Possible discharge in 1-2 days
[2020-05-04] MEDS ORDERED: WARFARIN 3 MG TAB PO ONE (18:00)
[2020-05-04] MEDS: SODIUM CHLORIDE 0.9% 1,000 ML IV SCH (21:39)
[2020-05-04] MEDS: CITALOPRAM HYDROBROMIDE 20 MG TAB PO SCH (21:42)
[2020-05-05] MEDS: SODIUM CHLORIDE 0.9% 1,000 ML IV SCH ×2 (06:11→19:49)
[2020-05-05] MEDS: PANTOPRAZOLE 40 MG TABLET PO SCH (06:12)
[2020-05-05] MEDS: DIMETHYL FUMARATE 240 MG PO SCH ×2 (06:12→09:39)
[2020-05-05] MEDS: [UNRECOGNIZED DRUG - OTHER] PO SCH ×2 (06:12→09:39)
[2020-05-05 09:04] LABS: INR 1.47 (0.90-1.11); Prothrombin Time 15.5 sec (9.9-11.9)
[2020-05-05] MEDS: ASPIRIN 81 MG PO SCH (09:19)
[2020-05-05] MEDS: METHYLPHENIDATE HCL 10 MG TAB PO SCH ×2 (09:19→12:47)
[2020-05-05] MEDS: POTASSIUM CHLORIDE ER 20 MEQ TAB.ER PO SCH ×2 (09:19→16:46)
[2020-05-05] MEDS: FOLIC ACID 1 MG TAB PO SCH (09:19)
[2020-05-05] MEDS: CHOLECALCIFEROL 1,000 UNIT TAB PO SCH (09:19)
[2020-05-05] MEDS: LEVOTHYROXINE 75 MCG TAB PO SCH (09:20)
[2020-05-05] MEDS: FUROSEMIDE 40 MG TAB PO SCH ×2 (09:22→16:46)
[2020-05-05] MEDS: FLUTICASONE 50MCG/SPRAY NASAL 16GM EA NOSTRIL SCH (09:23)
[2020-05-05] MEDS: PREGABALIN 100 MG CAP PO SCH ×3 (09:39→20:27)
[2020-05-05] MEDS ORDERED: bisacodyL 10 MG SUPP RECTAL STA (16:17)
[2020-05-05] MEDS: FERROUS SULFATE 325 MG TAB PO SCH (16:46)
[2020-05-05] MEDS: BACLOFEN 10 MG TAB PO SCH (16:46)
[2020-05-05] MEDS: MONTELUKAST 10 MG TAB PO SCH (16:46)
[2020-05-05] MEDS: LORATADINE 10 MG TAB PO SCH (16:47)
--- NOTE | 2020-05-05 17:59 | P.PN ---
Subjective Progress Note Date: 05/05/20 Huong Cooper, is a 64-year-old female who presented to [facility] emergency room with a chief complaint of generalized weakness and worsening mental status. She was evaluated in the emergency room, vital examination on presentation revealed a temperature of 97.9 pulse 62 respiration 22 blood pressure 137/84 pulse ox 99% on room air, white blood count was 3.5 INR 2.2 BUN slightly elevated at 24 creatinine 1.01 liver enzymes were elevated with AST at 70 ALT at 232 alkaline phosphatase at 157 urine analysis revealed evidence of urinary tract infection. Computed tomography scan of the brain revealed evidence of old infarct otherwise no acute abnormality, chest x-ray and abdomen x-ray did not reveal any evidence of acute abnormality, patient was started on IV Rocephin and was admitted to medical floor for further evaluation and treatment. Patient has a known history of multiple sclerosis, with severe debility requiring 24-hour care provided by her , she also has a known history of stroke in the past, she has a history of DVT maintained on Coumadin, she also has a known history of obstructive sleep apnea, hypertension, hyperlipidemia osteoarthritis and fibromyalgia. On review of systems patient is alert confused in no apparent distress, there is no fever or chills no headache or dizziness, she is complaining of abdominal discomfort otherwise I could not elicit any specific complaints. On 05/03/2020 patient is alert and oriented resting comfortably in bed. AST 88 ALT 264 and alkaline phosphatase 239. GI services have been consulted. Patient denies any specific complaints at this time. She denies chest pain or shortness of breath. Patient denies nausea vomiting or diarrhea. Patient denies any urinary burning or frequency. On 05/04/2020 patient was seen and examined on the medical floor she is alert and oriented in no distress she is complaining of pain in the suprapubic area otherwise she denies any complaints at this time there is no fever or chills no headache or dizziness no chest pain no shortness of breath no cough no nausea or vomiting no abdominal pain no diarrhea no burning with urination no frequency or urgency and no hematuria. On 05/05/2020 patient was seen and examined on the medical floor she is alert and oriented 3 she is complaining of suprapubic pain post void residual was done and it was 477 mL at this point urology consultation was requested , otherwise patient denies any complaints there is no fever or chills no headache or dizziness no chest pain no shortness of breath no cough no nausea or vomiting no abdominal pain no diarrhea no burning with urination no frequency or urgency and no hematuria Objective - Vital Signs Vital signs: Vital Signs Temp 97.9 F 05/05/20 13:55 Pulse 56 L 05/05/20 13:55 Resp 16 05/05/20 13:55 BP 108/63 05/05/20 13:55 Pulse Ox 92 L 05/05/20 13:55 Intake & Output 05/04/20 05/05/20 05/05/20 18:59 06:59 18:59 Intake Total 50 750 575 Output Total 1347 Balance 50 750 -772 Intake: Intake, IV Titration 50 650 575 Amount Sodium Chloride 0.9% 1, 600 525 000 ml @ 75 mls/hr IV . [id number] [facility] Rx#:[id number] cefTRIAXone 1 gm In 50 50 50 Sodium Chloride 0.9% 50 ml @ 100 mls/hr IVPB Q24HR [facility] Rx#:[id number] Oral 100 Output: Urine 900 Straight 450 Post Void Residual 447 Other: Voiding Method Toilet Toilet Bedside Commode Bedside Commode # Voids 1 - Exam Head normocephalic Neck supple Lungs clear to auscultation bilaterally no wheezing or crackles Heart regular rate and rhythm S1-S2, no rub or gallop Abdomen is soft nontender nondistended positive bowel sounds no hepatosplenomegaly Extremities no edema Neuro alert and orientated to 3. Expressive aphasia. She has known advanced MS - Labs CBC & Chem 7: 05/04/20 06:39 05/04/20 06:39 Labs: Abnormal Lab Results - Last 24 Hours (Table) 05/04/20 05/05/20 Range/Units 06:39 06:36 PT 15.5 H (9.9-11.9) sec INR 1.47 H (0.90-1.11) RBC Folate 829 H (280 - 791) ng/mL Assessment and Plan Plan: 1. Urinary tract infection, urine culture obtained patient started on IV Rocephin 2. Dehydration with acute kidney injury 3. Elevated liver enzymes, at this time will hold Pravachol, will check liver ultrasound and consult gastroenterology 4. Abdominal pain, check abdominal ultrasound and monitor closely 5. Underlying history of advanced multiple sclerosis with debility 6. Mental status changes, likely due to delirium, on top of baseline dementia 7. Previous history of DVT maintained on Coumadin INR therapeutic will continue 8. Pain in the suprapubic area with check post void residual 9. Physical therapy to ambulate patient For DVT prophylaxis patient is on Coumadin For GI prophylaxis we will use omeprazole Possible discharge in 1-2 days
[2020-05-05] MEDS ORDERED: WARFARIN 10 MG TAB PO SCH (18:00)
--- NOTE | 2020-05-05 18:41 | P.GSCN ---
History of Present Illness Consult date: 05/05/20 Reason for Consult: Urinary retention History of present illness: The patient is a 64-year-old female admitted through the emergency room on 05/01 for evaluation of weakness. Urinalysis on admission showed pyuria and she was suspected to have a urinary tract infection and started on Rocephin but urine culture has shown 50-100,000 colonies of skin raven. The patient has had intermittent abdominal pain. Bladder scan was performed today and she was found to have an elevated postvoid residual. She was in and out cath'd for 447 cc. Urology consultation was requested due to the elevated postvoid residual. The history is from a review of the patient's chart and her old records. The patient has expressive aphasia and her history was supplemented by discussion with her . The patient usually voids only 2-3 times per 24 hours. She occasionally has urgency incontinence and this is worsened by impaired ambulation from a previous CVA and multiple sclerosis. The patient's says that she wears a pad during the day. She usually has a bowel movement daily but has had no bowel movements since she was admitted 4 days ago. The patient has a history of urinary retention and was seen by me in 08/2018 because of this. At that time her post void residual was approximately 400 cc. She also has a history of urinary retention which occurred in 2013 and resolved following catheter drainage. The patient was last seen by Dr. Barrow in 12/2018. CT scan of the abdomen and pelvis without IV contrast in 05/2018 suggested a th ick-walled bladder and cystoscopy was performed to exclude an underlying abnormality. No abnormality was found in the postvoid residual at that time was reportedly minimal. Review of Systems - Constitutional Denies fever - Gastrointestinal Reports abdominal pain (not well localized), Reports constipation, Denies vomit ing - Genitourinary Genitourinary: Reports as per HPI, Denies dysuria, Denies hematuria Past Medical History Past Medical History: Chest Pain / Angina, CVA/TIA, Fibromyalgia, Musculoskeletal Disorder, Neurologic Disorder, Osteoarthritis (OA), Pulmonary Embolus (PE), Sleep Apnea/CPAP/BIPAP, Thyroid Disorder Additional Past Medical History / Comment(s): MULTIPLE SCLEROSIS, 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 PAINFUL FOR HER TO LIE FLAT. HX OF NOSEBLEED JUL 2014 AND RECEIVED PLASMA TRANSFUSION. History of Any Multi-Drug Resistant Organisms: BENTON Year Discovered:: 10/24/09 confirmed with infectious disease nurse on 08/18/16. MDRO Source:: URINE Past Surgical History: Ablation, Appendectomy, Cholecystectomy, Hernia Repair, Hysterectomy Additional Past Surgical History / Comment(s): Incisional hernia repair, lapar oscopic lysis of adhesions in 1987, ganglion cyst removal of the left wrist, patent foramen ovale patch in 2006, RF ablation for back pain. Past Anesthesia/Blood Transfusion Reactions: No Reported Reaction Past Psychological History: Depression Additional Psychological History / Comment(s): CELEXA to help sleep at night per . PT HAS DIFFICULTY W/SPEECH . HAS TO LOOK AT DIETARY MENU TO ORDER CAN'T DO IT BY PHONE. Pt resides with her spouse. She uses a cane to ambulate. She also has a walker.cpap machine Spouse drives her to appointments. Spouse assists her with some ADLs when needed. Smoking Status: Never smoker Past Alcohol Use History: None Reported Past Drug Use History: None Reported Additional Drug Use History / Comment(s): Lives at home with her requires some assistance with ADLs at times - Past Family History Mother Family Medical History: Hypertension Additional Family Medical History / Comment(s): osteoporosis Father Family Medical History: Dementia, Diabetes Mellitus Medications and Allergies Home Medications Medication Instructions Recorded Confirmed Type Aspirin 81 mg PO DAILY@0900 11/08/13 05/01/20 History Baclofen [Lioresal] 10 mg PO DAILY@169911/08/13 05/01/20 History Citalopram Hydrobromide [CeleXA] 40 mg PO HS@2100 11/08/13 05/01/20 History Ferrous Sulfate [Feosol] 325 mg PO DAILY@169911/08/13 05/01/20 History Furosemide [Lasix] 40 mg PO BID@0900,169911/08/13 05/01/20 History Montelukast [Singulair] 10 mg PO DAILY@169911/08/13 05/01/20 History Pantoprazole Sodium [Protonix] 40 mg PO DAILY@0600 11/08/13 05/01/20 History Potassium Chloride 20 meq PO BID@0900,1700 11/08/13 05/01/20 History Cholecalciferol [Vitamin D3 (25 2,000 unit PO DAILY@0900 11/18/15 05/01/20 History Mcg = 1000 Iu)] Fluticasone Nasal [place] [Flonase 1 spray EA NOSTRIL DAILY@0900 11/18/15 05/01/20 History Nasal [place]] Methylphenidate HCl [Ritalin] 20 mg PO BID@0900,1200 11/18/15 05/01/20 History Pravastatin Sodium [Pravachol] 20 mg PO HS@2100 11/18/15 05/01/20 History Pregabalin [Lyrica] 100 mg PO TID@0900,1700,2100 07/13/16 05/01/20 History Folic Acid 0.4 mg PO DAILY@0900 08/18/16 05/01/20 History Fexofenadine HCl 180 mg PO DAILY@1700 05/11/19 05/01/20 History Levothyroxine Sodium [Levoxyl] 75 mcg PO DAILY@0900 05/11/19 05/01/20 History Dimethyl Fumarate [Tecfidera] 240 mg PO BID@0600,1800 12/13/19 05/01/20 History Warfarin [Coumadin] 7.5 mg PO DAILY@1700 12/13/19 05/01/20 History Nitroglycerin Sl Tabs [Nitrostat] 0.4 mg SUBLINGUAL Q5M PRN 04/29/20 05/01/20 History fentaNYL 25MCG/HR PATCH [Duragesic 1 patch TRANSDERM DIRECTED 04/29/20 05/01/20 History 25MCG/HR] fentaNYL 50MCG/HR PATCH [Duragesic 1 patch TRANSDERM DIRECTED 05/01/20 05/01/20 History 50MCG/HR] Allergies Allergy/AdvReac Type Severity Reaction Status Date / Time adhesive Allergy SKIN Verified 05/01/20 16:20 [facility] - Exam Vital Signs Temp Pulse Resp BP Pulse Ox 97.9 F 62 22 137/84 99 05/01/20 14:10 05/01/20 14:10 05/01/20 14:10 05/01/20 14:10 05/01/20 14:10 - General well developed, well nourished, no distress - ENT no hearing loss - Respiratory normal respiratory effort - Abdomen Abdomen: tender (diffuse), no organomegaly, no masses Hernia: no umbilical Results - Labs 05/04/20 06:39 05/04/20 06:39 Abnormal Lab Results - Last 24 Hours (Table) 05/04/20 05/05/20 Range/Units 06:39 06:36 PT 15.5 H (9.9-11.9) sec INR 1.47 H (0.90-1.11) RBC Folate 829 H (280 - 791) ng/mL - Imaging US - abdomen: report reviewed (9 mm right renal cyst) Assessment and Plan (1) Incomplete bladder emptying Narrative/Plan: It is unclear whether the patient's incomplete bladder emptying is chronic or intermittent and related to her recent constipation and underlying multiple sclerosis. Her abdominal pain does not appear to be related to this as it did not improve when her bladder was drained with a catheter. She does not appear to have a urinary tract infection. She's had intermittent episodes of incomplete bladder emptying or urinary retention in the past which have resolved following short periods of catheter drainage. I would suggest that the patient's constipation be treated and in the interim that her elevated postvoid residuals be treated with intermittent catheterization. Current Visit: Yes Status: Acute Code(s): R33.9 - RETENTION OF URINE, UNSPECIFIED SNOMED Code(s): 428995058
--- NOTE | 2020-05-05 18:49 | P.PN ---
Subjective Progress Note Date: 05/05/20 She was seen at bedside today and she feels that she's doing well. Denies of any new weakness, numbness. Objective - Vital Signs Vital signs: Vital Signs Temp 97.9 F 05/05/20 13:55 Pulse 56 L 05/05/20 13:55 Resp 16 05/05/20 13:55 BP 108/63 05/05/20 13:55 Pulse Ox 92 L 05/05/20 13:55 Intake & Output 05/04/20 05/05/20 05/05/20 18:59 06:59 18:59 Intake Total 50 750 575 Output Total 2021 Balance 50 750 -1447 Intake: Intake, IV Titration 50 650 575 Amount Sodium Chloride 0.9% 1, 600 525 000 ml @ 75 mls/hr IV . [id number] [facility] Rx#:[id number] cefTRIAXone 1 gm In 50 50 50 Sodium Chloride 0.9% 50 ml @ 100 mls/hr IVPB Q24HR [facility] Rx#:[id number] Oral 100 Output: Urine 1575 Straight 450 Post Void Residual 447 Other: Voiding Method Toilet Toilet Bedside Commode Bedside Commode # Voids 1 - Exam GENERAL: The patient is lying in sitting on side of chair andhaving breakfast. She does not seem in acute distress. CHEST: The heart rate is regular rate rhythm. No murmurs to auscultation. No carotid bruit bilaterally. LUNG: Clear to auscultation bilaterally no wheezing noted throughout. Not labored breathing. ABDOMEN/GI: Bowel sounds present in all 4 quadrants. No tenderness to palpation throughout. NEUROLOGICAL: Higher mental function: The patient is awake, alert, oriented to self and time. She stated it she was at doctor's office. Has predominately expressive aphasia. She has paraprasic errors. Patient is following commands via command and sometimes via pontomine. Cranial nerves: The pupils are round, equal and reactive to light. Visual lazar are full to threat throughout. Extraocular movement is intact no nystagmus is noted. Facial sensatiom because of cooperation. Mild right lower facial droop and symmetrical with smile. No dysarthria. Tongue is midline and moved [id number] without any difficulty. No dysarthria is noted. Shoulder shrug is normal bilaterally. Motor: Gait is deferred. The strength is 5 over 5 throughout bilateral upper extremities and no focality noted in bilateral lower extremities (was limited because of pain in lower extremities). Normal tone and bulk. Cerebellum: Normal finger to nose bilaterally. Sensation: Unable to assess light touch because of cooperation. Reflexes (right/left): 2+ throughout bilateral upper extremities but uanble to assess lower because of pain. Plantars are downgoing bilaterally. - Labs CBC & Chem 7: 05/04/20 06:39 05/04/20 06:39 Labs: Abnormal Lab Results - Last 24 Hours (Table) 05/04/20 05/05/20 Range/Units 06:39 06:36 PT 15.5 H (9.9-11.9) sec INR 1.47 H (0.90-1.11) RBC Folate 829 H (280 - 791) ng/mL Assessment and Plan Assessment: This is a 64-year-old woman with medical history of 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 Neurology is consulted for altered mental status and possible MS exacerbation. Toxic metabolic encephalopathy: Multifactorial: Likely due to urinary tract infection, elevated liver function test---resolved (she seems back to baseline according to previous note) Left MCA territory stroke with residual expressive aphasia and mild right lower facial droop Relapsing-remitting multiple sclerosis that was diagnosed by her outside neurologist--No acute exacerbation. Underlying infection can cause pseudoexacerbattion. Hypertension Urinary tract infection Elevated liver function tests (ALT>AST) hyperlipidemia obstructive sleep apnea DVT on Coumadin Fibromyalgia Plan: Regarding the altered mental status is likely due to underlying infection, UTI as well as elevated the LFT. vitamin B12: 403 (normal), rbc folate: 829 (high) and ammonia level <9. Last hemoglobin A1c is 6.0 on 12/04/2019 and there is no need to repeat it. Last lipid profile as on 20: Triglyceride 164, cholesterol of 186, LDL 73 and HDL of 80. There is no need to repeat it. TSH on 12/04/2019: Is 1.44 which is normal and there is no need to repeat it. An EEG is not warranted at this time time since the this does not seem like a seizure and is currently back to her baseline. PT and OT are consulted. Regarding the patient old stroke patient is currently on aspirin 81 mg. And home statin (Pravastatin 20mg) is held because of the elevated liver function test. Once they're stabilized recommend placing the patient on home Pravastatin 20mg daily. Patient is on warfarin for her history of the DVTs. Regarding the patient diagnosis by her neurologist of relapsing remitting multiple sclerosis, I personally reviewed the MRI of the brain on 04/29/2018 and there is no lesion supporting multiple sclerosis. MRI of the cervical spine on 08/2017 date area of increased signal within the cervical spine at the C2-C3 and C3-C4. I will not repeat the MRI the brain or the C-spine since I don't think the patient has exacerbation of her multiple sclerosis. I attempted to contact the patient's spouse to find out the diagnosis of for multiple sclerosis but no response (attempted multiple times). Regarding the management of the urinary tract infection and the elevated liver function tests all defer that management to the primary team. Will continue to follow Kannan Reaves M.D. Neuro-hospitalist Time with Patient: Less than 30
[2020-05-05] MEDS: CITALOPRAM HYDROBROMIDE 20 MG TAB PO SCH (20:27)
[2020-05-05] MEDS ORDERED: [UNRECOGNIZED DRUG - OTHER] PO ONE (20:45)
[2020-05-05] MEDS ORDERED: DIMETHYL FUMARATE 240 MG PO ONE (20:45)
[2020-05-05] MEDS: ACETAMINOPHEN TAB 325 MG TAB PO PRN (21:36)
[2020-05-06] MEDS: PANTOPRAZOLE 40 MG TABLET PO SCH (06:12)
[2020-05-06 06:13] LABS: HCT 41.7 % (34.0-46.0); HGB 13.7 gm/dL (11.4-16.0); MCH 30.4 pg (25.0-35.0); MCHC 32.9 g/dL (31.0-37.0); MCV 92.5 fL (80.0-100.0); Mean Platelet Volume 11.2; Platelet Count 117 k/uL (150-450); RDW 13.4 % (11.5-15.5); WBC 3.7 k/uL (3.8-10.6)
[2020-05-06] MEDS: SODIUM CHLORIDE 0.9% 1,000 ML IV SCH ×2 (06:13→21:43)
[2020-05-06] MEDS: DIMETHYL FUMARATE 240 MG PO SCH (06:13)
[2020-05-06] MEDS: [UNRECOGNIZED DRUG - OTHER] PO SCH (06:13)
[2020-05-06 07:03] LABS: Band Neutrophils % 1 %; Eosinophils # (M) 0.04 k/uL (0-0.7); Neutrophils % (M) 71 %; Nucleated Red Blood Cells 0 /100 WBC (0-0); Total Cells Counted 100
[2020-05-06 07:04] LABS: Large Platelets Present
--- NOTE | 2020-05-06 08:02 | P.PN ---
Subjective Progress Note Date: 05/05/20 Principal diagnosis: Elevated liver enzymes Patient lying in bed. Tolerating diet with no abdominal pain reported. Objective - Vital Signs Vital signs: Vital Signs Temp 97.9 F 05/05/20 13:55 Pulse 56 L 05/05/20 13:55 Resp 16 05/05/20 13:55 BP 108/63 05/05/20 13:55 Pulse Ox 92 L 05/05/20 13:55 Intake & Output 05/04/20 05/05/20 05/05/20 18:59 06:59 18:59 Intake Total 50 750 575 Balance 50 750 575 Intake: Intake, IV Titration 50 650 575 Amount Sodium Chloride 0.9% 1, 600 525 000 ml @ 75 mls/hr IV . [id number] [facility] Rx#:[id number] cefTRIAXone 1 gm In 50 50 50 Sodium Chloride 0.9% 50 ml @ 100 mls/hr IVPB Q24HR [facility] Rx#:[id number] Oral 100 Other: Voiding Method Toilet Toilet Bedside Commode Bedside Commode # Voids 1 - Exam On physical examination, patient appears comfortable in no apparent distress. HEAD: Normocephalic, atraumatic. EYES: No scleral icterus. No conjunctival injection. MOUTH: No lesions, tongue midline. NECK: Trachea midline, no gross abnormalities. ABDOMEN: Soft, non tender. Bowel sounds are positive. No organomegaly. No guarding or rigidity. EXTREMITIES: No rashes, pallor or jaundice noted. SKIN: No rashes, no jaundice. NEUROLOGIC: Alert with expressive aphasia status post CVA. - Labs CBC & Chem 7: 05/06/20 05:37 05/04/20 06:39 Labs: Abnormal Lab Results - Last 24 Hours (Table) 05/04/20 05/05/20 Range/Units 06:39 06:36 PT 15.5 H (9.9-11.9) sec INR 1.47 H (0.90-1.11) RBC Folate 829 H (280 - 791) ng/mL Assessment and Plan (1) Elevated liver enzymes Narrative/Plan: 64-year-old female currently receiving treatment for urinary tract infection who was found to have an acute elevation in her serum transaminases. This is happened in the past with transient elevations. Suspicion is for some underlying chronic liver disease/NAFLD, with liver enzymes elevated in the setting of bacteremia and medications. Since admission transaminases have c ontinued to trend down. Current Visit: No Status: Acute Code(s): R74.8 - ABNORMAL LEVELS OF OTHER SERUM ENZYMES SNOMED Code(s): 574786401 Plan: Supportive care Okay for diet as tolerated Continue to monitor CBC, BMP, LFTs Continue antibiotic therapy as needed Continue to hold statins for now, okay to resume after discharge Acute viral hepatitis panel negative Thank you for allowing us to participate in the care of the patient, the GI service will standby, please call us back with any questions or concerns
[2020-05-06] MEDS: ASPIRIN 81 MG PO SCH (09:33)
[2020-05-06] MEDS: CHOLECALCIFEROL 1,000 UNIT TAB PO SCH (09:34)
[2020-05-06] MEDS: METHYLPHENIDATE HCL 10 MG TAB PO SCH ×2 (09:35→12:23)
[2020-05-06] MEDS: POTASSIUM CHLORIDE ER 20 MEQ TAB.ER PO SCH ×2 (09:35→16:45)
[2020-05-06] MEDS: PREGABALIN 100 MG CAP PO SCH ×3 (09:35→21:43)
[2020-05-06 09:36] LABS: INR 1.47 (0.90-1.11); Prothrombin Time 15.7 sec (9.9-11.9)
[2020-05-06] MEDS: LEVOTHYROXINE 75 MCG TAB PO SCH (09:36)
[2020-05-06] MEDS: FOLIC ACID 1 MG TAB PO SCH (09:36)
[2020-05-06] MEDS: FUROSEMIDE 40 MG TAB PO SCH ×2 (09:36→16:45)
[2020-05-06] MEDS: FLUTICASONE 50MCG/SPRAY NASAL 16GM EA NOSTRIL SCH (09:37)
[2020-05-06 10:12] LABS: African American GFR (CKD) 54.5 (60.0-200.0); Albumin 3.5 g/dL (3.80-4.90); Albumin/Globulin Ratio 2.19 (1.60-3.17); Anion Gap 6.8 mmol/L (4.00-12.00); BUN/Creat Ratio 14.17 Ratio (12.00-20.00); Calcium 8.8 mg/dL (8.7-10.3); Carbon Dioxide 31.2 mmol/L (21.6-31.8); Globulin 1.6 g/dL (1.6-3.3); Non-African American GFR(CKD) 47.1 (60.0-200.0); Potassium 3.5 mmol/L (3.5-5.5); Total Bilirubin 0.4 mg/dL (0.2-1.2); Total Protein 5.1 g/dL (6.2-8.2)
[2020-05-06] MEDS ORDERED: polyethylene glycoL 3350 17 GM POWD.PACK PO STA (12:10)
--- NOTE | 2020-05-06 12:15 | P.PN ---
Subjective Progress Note Date: 05/06/20 Huong Cooper, is a 64-year-old female who presented to [facility] emergency room with a chief complaint of generalized weakness and worsening mental status. She was evaluated in the emergency room, vital examination on presentation revealed a temperature of 97.9 pulse 62 respiration 22 blood pressure 137/84 pulse ox 99% on room air, white blood count was 3.5 INR 2.2 BUN slightly elevated at 24 creatinine 1.01 liver enzymes were elevated with AST at 70 ALT at 232 alkaline phosphatase at 157 urine analysis revealed evidence of urinary tract infection. Computed tomography scan of the brain revealed evidence of old infarct otherwise no acute abnormality, chest x-ray and abdomen x-ray did not reveal any evidence of acute abnormality, patient was started on IV Rocephin and was admitted to medical floor for further evaluation and treatment. Patient has a known history of multiple sclerosis, with severe debility requiring 24-hour care provided by her , she also has a known history of stroke in the past, she has a history of DVT maintained on Coumadin, she also has a known history of obstructive sleep apnea, hypertension, hyperlipidemia osteoarthritis and fibromyalgia. On review of systems patient is alert confused in no apparent distress, there is no fever or chills no headache or dizziness, she is complaining of abdominal discomfort otherwise I could not elicit any specific complaints. On 05/03/2020 patient is alert and oriented resting comfortably in bed. AST 88 ALT 264 and alkaline phosphatase 239. GI services have been consulted. Patient denies any specific complaints at this time. She denies chest pain or shortness of breath. Patient denies nausea vomiting or diarrhea. Patient denies any urinary burning or frequency. On 05/04/2020 patient was seen and examined on the medical floor she is alert and oriented in no distress she is complaining of pain in the suprapubic area otherwise she denies any complaints at this time there is no fever or chills no headache or dizziness no chest pain no shortness of breath no cough no nausea or vomiting no abdominal pain no diarrhea no burning with urination no frequency or urgency and no hematuria. On 05/05/2020 patient was seen and examined on the medical floor she is alert and oriented 3 she is complaining of suprapubic pain post void residual was done and it was 477 mL at this point urology consultation was requested , otherwise patient denies any complaints there is no fever or chills no headache or dizziness no chest pain no shortness of breath no cough no nausea or vomiting no abdominal pain no diarrhea no burning with urination no frequency or urgency and no hematuria on 05/06/2020 patient is resting comfortably in chair alert and oriented 3. Patient is still having high post void residuals. Patient was evaluated by urology servicesper urology recommends treating patient's constipation and continue treating post void residuals with intermittent catheterization. MiraLAX will be added. At this time patient denies chest pain. Patient denies nausea vomiting or diarrhea. Patient denies any urinary burning or frequency. Patient denies shortness breath Objective - Vital Signs Vital signs: Vital Signs Temp 97.5 F L 05/06/20 07:25 Pulse 52 L 05/06/20 08:00 Resp 16 05/06/20 07:25 BP 98/56 05/06/20 07:25 Pulse Ox 94 L 05/06/20 07:25 Intake & Output 05/05/20 05/06/20 05/06/20 18:59 06:59 18:59 Intake Total 575 Output Total 2021 100 Balance -1447 -100 Intake: Intake, IV Titration 575 Amount Sodium Chloride 0.9% 1, 525 000 ml @ 75 mls/hr IV . [id number] [facility] Rx#:[id number] cefTRIAXone 1 gm In 50 Sodium Chloride 0.9% 50 ml @ 100 mls/hr IVPB Q24HR [facility] Rx#:[id number] Output: Urine 1575 100 Straight 450 Post Void Residual 447 Other: Voiding Method Toilet Toilet Bedside Commode Bedside Commode # Voids 1 1 # Bowel Movements 1 - Exam Head normocephalic Neck supple Lungs clear to auscultation bilaterally no wheezing or crackles Heart regular rate and rhythm S1-S2, no rub or gallop Abdomen is soft nontender nondistended positive bowel sounds no hepatosplenomegaly Extremities no edema Neuro alert and orientated to 3. Expressive aphasia. She has known advanced MS - Labs CBC & Chem 7: 05/06/20 05:37 05/06/20 05:37 Labs: Abnormal Lab Results - Last 24 Hours (Table) 05/06/20 05/06/20 05/06/20 Range/Units 05:37 05:37 05:37 WBC 3.7 L (3.8-10.6) k/uL Plt Count 117 L (150-450) k/uL Lymphocytes # (Manual) 0.70 L (1.0-4.8) k/uL PT 15.7 H (9.9-11.9) sec INR 1.47 H (0.90-1.11) Est GFR (CKD-EPI)AfAm 54.5 L (60.0-200.0) Est GFR (CKD-EPI)NonAf 47.1 L (60.0-200.0) Glucose 124 H (70-110) mg/dL ALT 91 H (8-44) U/L Alkaline Phosphatase 163 H (41-126) U/L Total Protein 5.1 L (6.2-8.2) g/dL Albumin 3.50 L (3.80-4.90) g/dL Assessment and Plan Assessment: 1. Urinary tract infection, urine culture obtained patient started on IV Rocephin. urine culture negative 2. Dehydration with acute kidney injury 3. Elevated liver enzymes, at this time will hold Pravachol. Liver ultrasound completed showing splenomegaly redemonstrated. Heterogenous hyperechoic appearance of the liver could reflect product of diffuse fatty infiltration or underlying hepatocellular disease. GI services following. Hepatic panel negative. Liver enzymes are improving 4. Abdominal pain, check abdominal ultrasound and monitor closely. abdominal ultrasound completed showingsplenomegaly redemonstrated. Heterogenous hyperecho ic appearance of the liver could reflect product of diffuse fatty infiltration and/or underlying hepatocellular disease. 5. Underlying history of advanced multiple sclerosis with debility 6. Mental status changes, likely due to delirium, on top of baseline dementia 7. Previous history of DVT maintained on Coumadin. 8. Urinary retention. Urology services have been consulted. Per urology c ontinue with intermittent catheterization as needed treatment constipation 9. Constipation. MiraLAX added For DVT prophylaxis patient is on Coumadin For GI prophylaxis we will use omeprazole GI and neurology services consulted Rocephin for urinary tract infection
[2020-05-06] MEDS: BACLOFEN 10 MG TAB PO SCH (16:44)
[2020-05-06] MEDS: MONTELUKAST 10 MG TAB PO SCH (16:45)
[2020-05-06] MEDS: LORATADINE 10 MG TAB PO SCH (16:45)
[2020-05-06] MEDS: FERROUS SULFATE 325 MG TAB PO SCH (16:45)
[2020-05-06] MEDS ORDERED: WARFARIN 3 MG TAB PO ONE (18:00)
--- NOTE | 2020-05-06 19:45 | P.PN ---
Subjective Progress Note Date: 05/06/20 Patient was seen at bedside and she was accompanied with her . Per the patient's that she he feels like she is back to her baseline. Dated that the patient had a multiple sclerosis workup at Dr. Elizabeth's office and MRI the brain and C-spine as well as lumbar puncture and that she was diagnosed with multiple sclerosis. He said that she is Tec[employer] for years. Objective - Vital Signs Vital signs: Vital Signs Temp 98.0 F 05/06/20 19:19 Pulse 59 L 05/06/20 19:19 Resp 14 05/06/20 19:19 BP 107/63 05/06/20 19:19 Pulse Ox 94 L 05/06/20 19:19 Intake & Output 05/06/20 05/06/20 05/07/20 06:59 18:59 06:59 Output Total 1300 Balance -1300 Output: Urine 1300 Other: Voiding Method Toilet Bedside Commode # Voids 1 1 # Bowel Movements 1 - Exam GENERAL: The patient is lying in bed and not in acute distress. CHEST: The heart rate is regular rate rhythm. No murmurs to auscultation. LUNG: Clear to auscultation bilaterally no wheezing noted throughout. Not labored breathing. NEUROLOGICAL: Higher mental function: The patient is awake, alert, oriented to self. For time she correctly uses her hand to tell me month. She continues to states she is at doctor's office. Has predominately expressive aphasia. She has paraprasic and gramatical errors. She has some preservation. Patient is following commands via command and sometimes via pontomine. Cranial nerves: The pupils are round, equal and reactive to light. Visual lazar are full to threat throughout. Extraocular movement is intact no n ystagmus is noted. Facial sensatiom because of cooperation. Mild right lower facial droop and symmetrical with smile. No dysarthria. Tongue is midline and moved [id number] without any difficulty. No dysarthria is noted. Shoulder shrug is normal bilaterally. Motor: Gait is deferred. The strength is 5 over 5 throughout bilateral upper extremities and no focality noted in bilateral lower extremities (was limited because of pain in lower extremities). Normal tone and bulk. Cerebellum: Normal finger to nose bilaterally. Sensation: Unable to assess light touch because of cooperation. Reflexes (right/left): 2+ throughout bilateral upper extremities but uanble to assess lower because of pain. Plantars are downgoing bilaterally. - Labs CBC & Chem 7: 05/06/20 05:37 05/06/20 05:37 Labs: Abnormal Lab Results - Last 24 Hours (Table) 05/06/20 05/06/20 05/06/20 Range/Units 05:37 05:37 05:37 WBC 3.7 L (3.8-10.6) k/uL Plt Count 117 L (150-450) k/uL Lymphocytes # (Manual) 0.70 L (1.0-4.8) k/uL PT 15.7 H (9.9-11.9) sec INR 1.47 H (0.90-1.11) Est GFR (CKD-EPI)AfAm 54.5 L (60.0-200.0) Est GFR (CKD-EPI)NonAf 47.1 L (60.0-200.0) Glucose 124 H (70-110) mg/dL ALT 91 H (8-44) U/L Alkaline Phosphatase 163 H (41-126) U/L Total Protein 5.1 L (6.2-8.2) g/dL Albumin 3.50 L (3.80-4.90) g/dL Assessment and Plan Assessment: This is a 64-year-old woman with medical history of 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 Neurology is consulted for altered mental status and possible MS exacerbation. Toxic metabolic encephalopathy: Multifactorial: Likely due to urinary tract infection, elevated liver function test---resolved Left MCA territory stroke with residual expressive aphasia and mild right lower facial droop Relapsing-remitting multiple sclerosis that was diagnosed by her outside neurologist--No acute exacerbation. Hypertension Urinary tract infection Urinary retention Elevated liver function tests (ALT>AST) hyperlipidemia obstructive sleep apnea DVT on Coumadin Fibromyalgia Plan: Regarding the altered mental status is likely due to underlying infection, UTI as well as elevated the LFT. vitamin B12: 403 (normal), rbc folate: 829 (high) and ammonia level <9. Last hemoglobin A1c is 6.0 on 12/04/2019 and there is no need to repeat it. Last lipid profile as on 20: Triglyceride 164, cholesterol of 186, LDL 73 and HDL of 80. There is no need to repeat it. TSH on 12/04/2019: Is 1.44 which is normal and there is no need to repeat it. An EEG is not warranted at this time time since the this does not seem like a seizure and is currently back to her baseline. PT and OT are consulted. Regarding the patient old stroke patient is currently on aspirin 81 mg. And home statin (Pravastatin 20mg) is held because of the elevated liver function test. Once they're stabilized recommend placing the patient on home Pravastatin 20mg daily. Patient is on warfarin for her history of the DVTs. Regarding the patient diagnosis by her neurologist of relapsing remitting multiple sclerosis, I personally reviewed the MRI of the brain on 04/29/2018 and there is no lesion supporting multiple sclerosis. MRI of the cervical spine on 08/2017 date area of increased signal within the cervical spine at the C2-C3 and C3-C4. I will not repeat the MRI the brain or the C-spine since I don't think the patient has exacerbation of her multiple sclerosis. Per the patient's spouse she has history of multiple sclerosis and she is on Tecfedera for years. Regarding the management of the urinary tract infection and the elevated liver function tests all defer that management to the primary team. Upon discharge patient to follow-up with her neurologist, Dr. Elizabeth within 2-3 weeks. There is no further neurological workup. Will continue to follow Kannan Reaves M.D. Neuro-hospitalist Time with Patient: Less than 30
[2020-05-06] MEDS: CITALOPRAM HYDROBROMIDE 20 MG TAB PO SCH (21:43)
[2020-05-07] MEDS: PANTOPRAZOLE 40 MG TABLET PO SCH (06:13)
[2020-05-07] MEDS: SODIUM CHLORIDE 0.9% 1,000 ML IV SCH (06:19)
[2020-05-07 07:43] LABS: Basophils % (A) 1 %; Eosinophils # (A) 0.1 k/uL (0-0.7); Eosinophils % (A) 3 %; HGB 14.1 gm/dL (11.4-16.0); Lymphocytes # (A) 0.7 k/uL (1.0-4.8); Lymphocytes % (A) 23 %; MCH 31.1 pg (25.0-35.0); MCHC 33.5 g/dL (31.0-37.0); MCV 92.8 fL (80.0-100.0); Mean Platelet Volume 11.3; Monocytes # (A) 0.2 k/uL (0-1.0); Monocytes % (A) 6 %; Neutrophils # (A) 2.1 k/uL (1.3-7.7); Neutrophils % (A) 65 %; Platelet Count 122 k/uL (150-450); RBC 4.53 m/uL (3.80-5.40); RDW 13.4 % (11.5-15.5); WBC 3.2 k/uL (3.8-10.6)
[2020-05-07 08:42] LABS: Large Platelets Present
[2020-05-07] MEDS: POTASSIUM CHLORIDE ER 20 MEQ TAB.ER PO SCH ×2 (09:35→17:54)
[2020-05-07] MEDS: FUROSEMIDE 40 MG TAB PO SCH ×2 (09:35→17:54)
[2020-05-07] MEDS: LEVOTHYROXINE 75 MCG TAB PO SCH (09:35)
[2020-05-07] MEDS: CHOLECALCIFEROL 1,000 UNIT TAB PO SCH (09:35)
[2020-05-07] MEDS: PREGABALIN 100 MG CAP PO SCH ×3 (09:35→20:27)
[2020-05-07] MEDS: FOLIC ACID 1 MG TAB PO SCH (09:35)
[2020-05-07] MEDS: ASPIRIN 81 MG PO SCH (09:35)
[2020-05-07] MEDS: METHYLPHENIDATE HCL 10 MG TAB PO SCH ×2 (09:35→12:49)
[2020-05-07 11:03] LABS: African American GFR (CKD) 60.6 (60.0-200.0); Albumin 3.7 g/dL (3.80-4.90); Albumin/Globulin Ratio 2.31 (1.60-3.17); BUN/Creat Ratio 11.82 Ratio (12.00-20.00); Globulin 1.6 g/dL (1.6-3.3); Non-African American GFR(CKD) 52.3 (60.0-200.0); Potassium 3.9 mmol/L (3.5-5.5); Total Bilirubin 0.4 mg/dL (0.2-1.2); Total Protein 5.3 g/dL (6.2-8.2)
[2020-05-07] MEDS: FLUTICASONE 50MCG/SPRAY NASAL 16GM EA NOSTRIL SCH (11:27)
[2020-05-07 11:39] LABS: INR 1.89 (0.90-1.11); Prothrombin Time 19.8 sec (9.9-11.9)
[2020-05-07] MEDS: BACLOFEN 10 MG TAB PO SCH (17:54)
[2020-05-07] MEDS: FERROUS SULFATE 325 MG TAB PO SCH (17:54)
[2020-05-07] MEDS: LORATADINE 10 MG TAB PO SCH (17:54)
[2020-05-07] MEDS: MONTELUKAST 10 MG TAB PO SCH (17:54)
[2020-05-07] MEDS ORDERED: WARFARIN 10 MG TAB PO ONE (18:00)
--- NOTE | 2020-05-07 18:46 | P.PN ---
Subjective Progress Note Date: 05/07/20 Huong Cooper, is a 64-year-old female who presented to [facility] emergency room with a chief complaint of generalized weakness and worsening mental status. She was evaluated in the emergency room, vital examination on presentation revealed a temperature of 97.9 pulse 62 respiration 22 blood pressure 137/84 pulse ox 99% on room air, white blood count was 3.5 INR 2.2 BUN slightly elevated at 24 creatinine 1.01 liver enzymes were elevated with AST at 70 ALT at 232 alkaline phosphatase at 157 urine analysis revealed evidence of urinary tract infection. Computed tomography scan of the brain revealed evidence of old infarct otherwise no acute abnormality, chest x-ray and abdomen x-ray did not reveal any evidence of acute abnormality, patient was started on IV Rocephin and was admitted to medical floor for further evaluation and treatment. Patient has a known history of multiple sclerosis, with severe debility requiring 24-hour care provided by her , she also has a known history of stroke in the past, she has a history of DVT maintained on Coumadin, she also has a known history of obstructive sleep apnea, hypertension, hyperlipidemia osteoarthritis and fibromyalgia. On review of systems patient is alert confused in no apparent distress, there is no fever or chills no headache or dizziness, she is complaining of abdominal discomfort otherwise I could not elicit any specific complaints. On 05/03/2020 patient is alert and oriented resting comfortably in bed. AST 88 ALT 264 and alkaline phosphatase 239. GI services have been consulted. Patient denies any specific complaints at this time. She denies chest pain or shortness of breath. Patient denies nausea vomiting or diarrhea. Patient denies any urinary burning or frequency. On 05/04/2020 patient was seen and examined on the medical floor she is alert and oriented in no distress she is complaining of pain in the suprapubic area otherwise she denies any complaints at this time there is no fever or chills no headache or dizziness no chest pain no shortness of breath no cough no nausea or vomiting no abdominal pain no diarrhea no burning with urination no frequency or urgency and no hematuria. On 05/05/2020 patient was seen and examined on the medical floor she is alert and oriented 3 she is complaining of suprapubic pain post void residual was done and it was 477 mL at this point urology consultation was requested , otherwise patient denies any complaints there is no fever or chills no headache or dizziness no chest pain no shortness of breath no cough no nausea or vomiting no abdominal pain no diarrhea no burning with urination no frequency or urgency and no hematuria on 05/06/2020 patient is resting comfortably in chair alert and oriented 3. Patient is still having high post void residuals. Patient was evaluated by urology servicesper urology recommends treating patient's constipation and continue treating post void residuals with intermittent catheterization. MiraLAX will be added. At this time patient denies chest pain. Patient denies nausea vomiting or diarrhea. Patient denies any urinary burning or frequency. Patient denies shortness breath on 05/07/2020 patient was seen and examined on the medical floor she is alert and oriented 3 in no apparent distress there is no fever or chills no headache or dizziness no chest pain no shortness of breath no cough no nausea or vomiting no abdominal pain no diarrhea no blood in the stools no burning with urination n o frequency or urgency no hematuria. Patient is having intermittent difficulty with urination with occasional elevated post void residual however she is refusing to do catheterization and stated that if she is given the time to relax she will be able to urinate on her own. At this time will continue with IV antibiotic with monitor in a.m. Objective - Vital Signs Vital signs: Vital Signs Temp 97.5 F L 05/07/20 15:00 Pulse 66 05/07/20 15:00 Resp 18 05/07/20 15:00 BP 118/65 05/07/20 15:00 Pulse Ox 97 05/07/20 15:00 Intake & Output 05/06/20 05/07/20 05/07/20 18:59 06:59 18:59 Output Total 1300 1500 1500 Balance -1300 -1500 -1500 Output: Urine 1300 1500 1500 Other: Voiding Method Toilet Toilet Bedside Commode Bedside Commode # Voids 1 1 - Exam Head normocephalic Neck supple Lungs clear to auscultation bilaterally no wheezing or crackles Heart regular rate and rhythm S1-S2, no rub or gallop Abdomen is soft nontender nondistended positive bowel sounds no hepatosplenomegaly Extremities no edema Neuro alert and orientated to 3. Expressive aphasia. She has known advanced MS - Labs CBC & Chem 7: 05/07/20 06:31 05/07/20 06:31 Labs: Abnormal Lab Results - Last 24 Hours (Table) 05/07/20 05/07/20 05/07/20 Range/Units 06:31 06:31 06:31 WBC 3.2 L (3.8-10.6) k/uL Plt Count 122 L (150-450) k/uL Lymphocytes # 0.7 L (1.0-4.8) k/uL PT 19.8 H (9.9-11.9) sec INR 1.89 H (0.90-1.11) Carbon Dioxide 32.0 H (21.6-31.8) mmol/L Est GFR (CKD-EPI)NonAf 52.3 L (60.0-200.0) BUN/Creatinine Ratio 11.82 L (12.00-20.00) Ratio ALT 77 H (8-44) U/L Alkaline Phosphatase 150 H (41-126) U/L Total Protein 5.3 L (6.2-8.2) g/dL Albumin 3.70 L (3.80-4.90) g/dL Assessment and Plan Plan: 1. Urinary tract infection, urine culture obtained patient started on IV Rocephin 2. Dehydration with acute kidney injury 3. Elevated liver enzymes, at this time will hold Pravachol, will check liver ultrasound and consult gastroenterology 4. Abdominal pain, check abdominal ultrasound and monitor closely 5. Underlying history of advanced multiple sclerosis with debility 6. Mental status changes, likely due to delirium, on top of baseline dementia 7. Previous history of DVT maintained on Coumadin INR therapeutic will continue 8. Pain in the suprapubic area with check post void residual 9. Physical therapy to ambulate patient For DVT prophylaxis patient is on Coumadin For GI prophylaxis we will use omeprazole Possible discharge in 1-2 days
--- NOTE | 2020-05-07 19:05 | P.PN ---
Subjective Progress Note Date: 05/07/20 Patient was seen at bedside and the she states that she's doing well. She is not sure why she is in still in the hospital. She states that the she's doing well she doesn't have any acute issues. Objective - Vital Signs Vital signs: Vital Signs Temp 97.5 F L 05/07/20 15:00 Pulse 66 05/07/20 15:00 Resp 18 05/07/20 15:00 BP 118/65 05/07/20 15:00 Pulse Ox 97 05/07/20 15:00 Intake & Output 05/07/20 05/07/20 05/08/20 06:59 18:59 06:59 Output Total 1500 1500 Balance -1500 -1500 Output: Urine 1500 1500 Other: Voiding Method Toilet Toilet Bedside Commode Bedside Commode # Voids 1 - Exam GENERAL: The patient is lying in bed and not in acute distress. CHEST: The heart rate is regular rate rhythm. No murmurs to auscultation. LUNG: Clear to auscultation bilaterally no wheezing noted throughout. Not labored breathing. NEUROLOGICAL: Higher mental function: The patient is awake, alert, oriented to self. For time she correctly uses her hand to tell me month. She continues to states she is at doctor's office. Has predominately expressive aphasia. She has paraprasic and gramatical errors. She has some preservation. Patient is following commands via command and sometimes via pontomine. Cranial nerves: The pupils are round, equal and reactive to light. Visual lazar are full to threat throughout. Extraocular movement is intact no nystagmus is noted. Facial sensatiom because of cooperation. Mild right lower facial droop and symmetrical with smile. No dysarthria. Tongue is midline and moved [id number] without any difficulty. No dysarthria is noted. Shoulder shrug is normal bilaterally. Motor: Gait is deferred. The strength is 5 over 5 throughout bilateral upper extremities and no focality noted in bilateral lower extremities (was limited because of pain in lower extremities). Normal tone and bulk. Cerebellum: Normal finger to nose bilaterally. Sensation: Unable to assess light touch because of cooperation. Reflexes (right/left): 2+ throughout bilateral upper extremities but uanble to assess lower because of pain. Plantars are downgoing bilaterally. - Labs CBC & Chem 7: 05/07/20 06:31 05/07/20 06:31 Labs: Abnormal Lab Results - Last 24 Hours (Table) 05/07/20 05/07/20 05/07/20 Range/Units 06:31 06:31 06:31 WBC 3.2 L (3.8-10.6) k/uL Plt Count 122 L (150-450) k/uL Lymphocytes # 0.7 L (1.0-4.8) k/uL PT 19.8 H (9.9-11.9) sec INR 1.89 H (0.90-1.11) Carbon Dioxide 32.0 H (21.6-31.8) mmol/L Est GFR (CKD-EPI)NonAf 52.3 L (60.0-200.0) BUN/Creatinine Ratio 11.82 L (12.00-20.00) Ratio ALT 77 H (8-44) U/L Alkaline Phosphatase 150 H (41-126) U/L Total Protein 5.3 L (6.2-8.2) g/dL Albumin 3.70 L (3.80-4.90) g/dL Assessment and Plan Assessment: This is a 64-year-old woman with medical history of 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 Neurology is consulted for altered mental status and possible MS exacerbation. Toxic metabolic encephalopathy: Multifactorial: Likely due to urinary tract infection, elevated liver function test---resolved Left MCA territory stroke with residual expressive aphasia and mild right lower facial droop Relapsing-remitting multiple sclerosis that was diagnosed by her outside neurologist--No acute exacerbation. Hypertension Urinary tract infection Urinary retention Elevated liver function tests (ALT>AST) hyperlipidemia obstructive sleep apnea DVT on Coumadin Fibromyalgia Plan: Regarding the altered mental status is likely due to underlying infection, UTI as well as elevated the LFT. vitamin B12: 403 (normal), rbc folate: 829 (high) and ammonia level <9. Last hemoglobin A1c is 6.0 on 12/04/2019 and there is no need to repeat it. Last lipid profile as on 20: Triglyceride 164, cholesterol of 186, LDL 73 and HDL of 80. There is no need to repeat it. TSH on 12/04/2019: Is 1.44 which is normal and there is no need to repeat it. An EEG is not warranted at this time time since the this does not seem like a seizure and is currently back to her baseline. PT and OT are consulted. Regarding the patient old stroke patient is currently on aspirin 81 mg. And home statin (Pravastatin 20mg) is held because of the elevated liver function test. Once they're stabilized recommend placing the patient on home Pravastatin 20mg daily. Patient is on warfarin for her history of the DVTs. Regarding the patient diagnosis by her neurologist of relapsing remitting multiple sclerosis, I personally reviewed the MRI of the brain on 04/29/2018 and there is no lesion supporting multiple sclerosis. MRI of the cervical spine on 08/2017 date area of increased signal within the cervical spine at the C2-C3 and C3-C4. I will not repeat the MRI the brain or the C-spine since I don't think the patient has exacerbation of her multiple sclerosis. Per the patient's spouse she has history of multiple sclerosis and she is on Tecfedera for years. Regarding the management of the urinary tract infection and the elevated liver function tests all defer that management to the primary team. Upon discharge patient to follow-up with her neurologist, Dr. Elizabeth within 2-3 weeks. There is no further work-up from neurological standpoint. Kannan Reaves M.D. Neuro-hospitalist Time with Patient: Less than 30
[2020-05-07] MEDS: CITALOPRAM HYDROBROMIDE 20 MG TAB PO SCH (20:27)
[2020-05-07] MEDS: bisacodyL 5 MG TABLET.DR PO PRN (20:31)
[2020-05-08] MEDS: SODIUM CHLORIDE 0.9% 1,000 ML IV SCH ×2 (02:18→11:42)
[2020-05-08] MEDS: ACETAMINOPHEN TAB 325 MG TAB PO PRN (06:13)
[2020-05-08] MEDS: PANTOPRAZOLE 40 MG TABLET PO SCH (06:13)
[2020-05-08 07:22] VITALS: RESP 18
[2020-05-08] MEDS: bisacodyL 5 MG TABLET.DR PO PRN (08:52)
[2020-05-08] MEDS: ASPIRIN 81 MG PO SCH (08:52)
[2020-05-08] MEDS: CHOLECALCIFEROL 1,000 UNIT TAB PO SCH (08:53)
[2020-05-08] MEDS: PREGABALIN 100 MG CAP PO SCH (08:53)
[2020-05-08] MEDS: FOLIC ACID 1 MG TAB PO SCH (08:53)
[2020-05-08] MEDS: METHYLPHENIDATE HCL 10 MG TAB PO SCH ×2 (08:53→11:42)
[2020-05-08] MEDS: POTASSIUM CHLORIDE ER 20 MEQ TAB.ER PO SCH (08:53)
[2020-05-08] MEDS: FUROSEMIDE 40 MG TAB PO SCH (08:54)
[2020-05-08] MEDS: LEVOTHYROXINE 75 MCG TAB PO SCH (08:54)
[2020-05-08] MEDS: FLUTICASONE 50MCG/SPRAY NASAL 16GM EA NOSTRIL SCH (09:03)
--- NOTE | 2020-05-08 10:34 | P.DS ---
Providers Date of admission: 05/01/20 17:01 Expected date of discharge: 05/08/20 Attending physician: Sarah Paredes Consults: 05/02/20 12:12 Consult Physician Routine Consulting Provider: Jewell Villasenor Consult Reason/Comments: mental status changes, multiple sclerosis Do you want consulting provider notified?: Yes 05/05/20 14:19 Consult Physician Routine Consulting Provider: PATRICIA GALVAN Urology Consult Reason/Comments: bladder retention Do you want consulting provider notified?: Yes Primary care physician: Sarah Lena [facility] Course: Discharge diagnosis 1. Urinary tract infection, urine culture obtained patient started on IV Rocephin. Urine culture negative. Patient will be discharged on Ceftin for 7 days 2. Dehydration with acute kidney injury. Resolved. 3. Elevated liver enzymes, at this time will hold Pravachol, will check liver ultrasound and consult gastroenterology. He was evaluated by GI services no further workup. Statin will be held at discharge 4. Abdominal pain, check abdominal ultrasound and monitor closely 5. Underlying history of advanced multiple sclerosis with debility 6. Mental status changes, likely due to delirium, on top of baseline dementia 7. Previous history of DVT maintained on Coumadin INR therapeutic will continue 8. Pain in the suprapubic area with check post void residual 9. Physical therapy to ambulate patient Hospital course Huong Cooper, is a 64-year-old female who presented to [facility] emergency room with a chief complaint of generalized weakness and worsening mental status. She was evaluated in the emergency room, vital examination on presentation revealed a temperature of 97.9 pulse 62 respiration 22 blood pressure 137/84 pulse ox 99% on room air, white blood count was 3.5 INR 2.2 BUN slightly elevated at 24 creatinine 1.01 liver enzymes were elevated with AST at 70 ALT at 232 alkaline phosphatase at 157 urine analysis revealed evidence of urinary tract infection. Computed tomography scan of the brain revealed evidence of old infarct otherwise no acute abnormality, chest x-ray and abdomen x-ray did not reveal any evidence of acute abnormality, patient was started on IV Rocephin and was admitted to medical floor for further evaluation and treatment. Patient has a known history of multiple sclerosis, with severe debility requiring 24-hour care provided by her , she also has a known history of stroke in the past, she has a history of DVT maintained on Coumadin, she also has a known history of obstructive sleep apnea, hypertension, hyperlipidemia osteoarthritis and fibromyalgia. On review of systems patient is alert confused in no apparent distress, there is no fever or chills no headache or dizziness, she is complaining of abdominal discomfort otherwise I could not elicit any specific complaints. On 05/03/2020 patient is alert and oriented resting comfortably in bed. AST 88 ALT 264 and alkaline phosphatase 239. GI services have been consulted. Patient denies any specific complaints at this time. She denies chest pain or shortness of breath. Patient denies nausea vomiting or diarrhea. Patient denies any urinary burning or frequency. On 05/04/2020 patient was seen and examined on the medical floor she is alert and oriented in no distress she is complaining of pain in the suprapubic area otherwise she denies any complaints at this time there is no fever or chills no headache or dizziness no chest pain no shortness of breath no cough no nausea or vomiting no abdominal pain no diarrhea no burning with urination no frequency or urgency and no hematuria. On 05/05/2020 patient was seen and examined on the medical floor she is alert and oriented 3 she is complaining of suprapubic pain post void residual was done and it was 477 mL at this point urology consultation was requested , otherwise patient denies any complaints there is no fever or chills no headache or dizziness no chest pain no shortness of breath no cough no nausea or vomiting no abdominal pain no diarrhea no burning with urination no frequency or urgency and no hematuria on 05/06/2020 patient is resting comfortably in chair alert and oriented 3. Patient is still having high post void residuals. Patient was evaluated by urology servicesper urology recommends treating patient's constipation and continue treating post void residuals with intermittent catheterization. MiraLAX will be added. At this time patient denies chest pain. Patient denies nausea vomiting or diarrhea. Patient denies any urinary burning or frequency. Patient denies shortness breath on 05/07/2020 patient was seen and examined on the medical floor she is alert and oriented 3 in no apparent distress there is no fever or chills no headache or dizziness no chest pain no shortness of breath no cough no nausea or vomiting no abdominal pain no diarrhea no blood in the stools no burning with urination no frequency or urgency no hematuria. Patient is having intermittent difficulty with urination with occasional elevated post void residual however she is refusing to do catheterization and stated that if she is given the time to relax she will be able to urinate on her own. At this time will continue with IV antibiotic with monitor in a.m. On 05/08/2020 patient is alert and oriented resting comfortably in bed. Urine culture negative. Patient has been afebrile. Patient will be discharged home on Ceftin for 7 days. Patient follow-up with PCP and in 1 week. Patient denies chest pain or shortness breath. Patient denies nausea vomiting or diarrhea. Patient denies any urinary burning or frequency Patient Condition at Discharge: Stable Plan - Discharge Summary Discharge Rx Participant: No New Discharge Prescriptions: New Cefuroxime Axetil [Ceftin] 500 mg PO BID 7 Days #14 tab Continue Baclofen [Lioresal] 10 mg PO DAILY@1700 Aspirin 81 mg PO DAILY@0900 Montelukast [Singulair] 10 mg PO DAILY@1700 Furosemide [Lasix] 40 mg PO BID@0900,1700 Potassium Chloride 20 meq PO BID@0900,1700 Citalopram Hydrobromide [CeleXA] 40 mg PO HS@2100 Pantoprazole Sodium [Protonix] 40 mg PO DAILY@0600 Ferrous Sulfate [Feosol] 325 mg PO DAILY@1700 Cholecalciferol [Vitamin D3 (25 Mcg = 1000 Iu)] 2,000 unit PO DAILY@0900 Methylphenidate HCl [Ritalin] 20 mg PO BID@0900,1200 Fluticasone Nasal [place] [Flonase Nasal [place]] 1 spray EA NOSTRIL DAILY@0900 Pregabalin [Lyrica] 100 mg PO TID@0900,1700,2100 Folic Acid 0.4 mg PO DAILY@0900 Levothyroxine Sodium [Levoxyl] 75 mcg PO DAILY@0900 Fexofenadine HCl 180 mg PO DAILY@1700 Dimethyl Fumarate [Tecfidera] 240 mg PO BID@0600,1800 Warfarin [Coumadin] 7.5 mg PO DAILY@1700 Nitroglycerin Sl Tabs [Nitrostat] 0.4 mg SUBLINGUAL Q5M PRN PRN Reason: Chest Pain fentaNYL 25MCG/HR PATCH [Duragesic 25MCG/HR] 1 patch TRANSDERM DIRECTED fentaNYL 50MCG/HR PATCH [Duragesic 50MCG/HR] 1 patch TRANSDERM DIRECTED Discontinued Pravastatin Sodium [Pravachol] 20 mg PO HS@2100 Discharge Medication List Aspirin 81 mg PO DAILY@0911/08/13 [History] Baclofen [Lioresal] 10 mg PO DAILY@169911/08/13 [History] Citalopram Hydrobromide [CeleXA] 40 mg PO HS@2100 11/08/13 [History] Ferrous Sulfate [Feosol] 325 mg PO DAILY@169911/08/13 [History] Furosemide [Lasix] 40 mg PO BID@0900,17011/08/13 [History] Montelukast [Singulair] 10 mg PO DAILY@169911/08/13 [History] Pantoprazole Sodium [Protonix] 40 mg PO DAILY@0611/08/13 [History] Potassium Chloride 20 meq PO BID@0900,17011/08/13 [History] Cholecalciferol [Vitamin D3 (25 Mcg = 1000 Iu)] 2,000 unit PO DAILY@0911/18/15 [History] Fluticasone Nasal [place] [Flonase Nasal [place]] 1 spray EA NOSTRIL DAILY@0911/18/15 [History] Methylphenidate HCl [Ritalin] 20 mg PO BID@0900,1200 11/18/15 [History] Pregabalin [Lyrica] 100 mg PO TID@0900,1700,2100 07/13/16 [History] Folic Acid 0.4 mg PO DAILY@0900 08/18/16 [History] Fexofenadine HCl 180 mg PO DAILY@169905/11/19 [History] Levothyroxine Sodium [Levoxyl] 75 mcg PO DAILY@0905/11/19 [History] Dimethyl Fumarate [Tecfidera] 240 mg PO BID@0600,1800 12/13/19 [History] Warfarin [Coumadin] 7.5 mg PO DAILY@169912/13/19 [History] Nitroglycerin Sl Tabs [Nitrostat] 0.4 mg SUBLINGUAL Q5M PRN 04/29/20 [History] fentaNYL 25MCG/HR PATCH [Duragesic 25MCG/HR] 1 patch TRANSDERM DIRECTED 04/29/20 [History] fentaNYL 50MCG/HR PATCH [Duragesic 50MCG/HR] 1 patch TRANSDERM DIRECTED 05/01/20 [History] Cefuroxime Axetil [Ceftin] 500 mg PO BID 7 Days #14 tab 05/08/20 [Rx] Follow up Appointment(s)/Referral(s): [facility], [NON-STAFF] - 1 Week Sarah Paredes MD [Primary Care Provider] - 1-2 days Activity/Diet/Wound Care/Special Instructions: Please educate patient on how to self straight catherize Discharge Disposition: HOME SELF-CARE
[2020-05-08 11:21] LABS: INR 2.16 (0.90-1.11)
[2020-05-08 14:35] VITALS: BMI 36.6
[2020-05-08 14:43] VITALS: BP 104/62; PULSE 62; TEMP 98.3
[2020-05-08] MEDS ORDERED: WARFARIN 7.5 MG TAB PO ONE (18:00)
--- NOTE | 2020-05-08 20:22 | P.PN ---
Subjective Progress Note Date: 05/08/20 She was seen at bedside and she said that that she's doing well. She is getting her last dose of antibiotic. Otherwise there is no new neurological issues that to be addressed today. Per the patient nurse she's supposed to be discharged the home later today. Objective - Vital Signs Vital signs: Vital Signs Temp 98.3 F 05/08/20 14:42 Pulse 62 05/08/20 14:42 Resp 18 05/08/20 14:42 BP 104/62 05/08/20 14:42 Pulse Ox 94 L 05/08/20 14:42 Intake & Output 05/08/20 05/08/20 05/09/20 06:59 18:59 06:59 Output Total 1000 Balance -1000 Weight 100 kg Output: Urine 1000 Other: Voiding Method Toilet Toilet Bedside Commode # Voids 2 1 - Exam GENERAL: The patient is lying in bed and not in acute distress. CHEST: The heart rate is regular rate rhythm. No murmurs to auscultation. LUNG: Clear to auscultation bilaterally no wheezing noted throughout. Not labored breathing. NEUROLOGICAL: Higher mental function: The patient is awake, alert, oriented to self. For time she correctly uses her hand to tell me month. She continues to states she is at doctor's office. Has predominately expressive aphasia. She has parap rasic and gramatical errors. She has some preservation. Patient is following commands via command and sometimes via pontomine. Cranial nerves: The pupils are round, equal and reactive to light. Visual lazar are full to threat throughout. Extraocular movement is intact no nystagmus is noted. Facial sensatiom because of cooperation. Mild right lower facial droop and symmetrical with smile. No dysarthria. Tongue is midline and moved [id number] without any difficulty. No dysarthria is noted. Shoulder shrug is normal bilaterally. Motor: Gait is deferred. The strength is 5 over 5 throughout bilateral upper extremities and no focality noted in bilateral lower extremities (was limited because of pain in lower extremities). Normal tone and bulk. Cerebellum: Normal finger to nose bilaterally. Sensation: Unable to assess light touch because of cooperation. Reflexes (right/left): 2+ throughout bilateral upper extremities but uanble to assess lower because of pain. Plantars are downgoing bilaterally. 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 Neurology is consulted for altered mental status and possible MS exacerbation. Toxic metabolic encephalopathy: Multifactorial: Likely due to urinary tract infection, elevated liver function test---resolved Left MCA territory stroke with residual expressive aphasia and mild right lower facial droop Relapsing-remitting multiple sclerosis that was diagnosed by her outside neurologist--No acute exacerbation. Hypertension Urinary tract infection Urinary retention Elevated liver function tests (ALT>AST) hyperlipidemia obstructive sleep apnea DVT on Coumadin Fibromyalgia Plan: Regarding the altered mental status is likely due to underlying infection, UTI as well as elevated the LFT. vitamin B12: 403 (normal), rbc folate: 829 (high) and ammonia level <9. Last hemoglobin A1c is 6.0 on 12/04/2019 and there is no need to repeat it. Last lipid profile as on 20: Triglyceride 164, cholesterol of 186, LDL 73 and HDL of 80. There is no need to repeat it. TSH on 12/04/2019: Is 1.44 which is normal and there is no need to repeat it. An EEG is not warranted at this time time since the this does not seem like a seizure and is currently back to her baseline. PT and OT are consulted. Regarding the patient old stroke patient is currently on aspirin 81 mg. And home statin (Pravastatin 20mg) is held because of the elevated liver function test. Once they're stabilized recommend placing the patient on home Pravastatin 20mg daily. Patient is on warfarin for her history of the DVTs. Regarding the patient diagnosis by her neurologist of relapsing remitting multiple sclerosis, I personally reviewed the MRI of the brain on 04/29/2018 and there is no lesion supporting multiple sclerosis. MRI of the cervical spine on 08/2017 date area of increased signal within the cervical spine at the C2-C3 and C3-C4. I will not repeat the MRI the brain or the C-spine since I don't think the patient has exacerbation of her multiple sclerosis. Per the patient's spouse she has history of multiple sclerosis and she is on Tecfedera for years. Regarding the management of the urinary tract infection and the elevated liver function tests all defer that management to the primary team. Upon discharge patient to follow-up with her neurologist, Dr. Elizabeth within 2-3 weeks. She is likely to be discharged later today. There is no further neurological workup needed. Kannan Reaves M.D. Neuro-hospitalist Time with Patient: Less than 30
== END 2020-05-08 17:32 | disposition home health service (06) | DRG 689 ==
LOC: EC 14:04 → 4SSUR 17:01
PROVIDERS: ADMIT Internal Medicine; ATTEND Internal Medicine
DX: N39.0 Urinary tract infection, site not specified (principal); G92 Toxic encephalopathy; N17.9 Acute kidney failure, unspecified; I69.351 Hemiplegia and hemiparesis following cerebral infarction affecting right dominant side; D69.6 Thrombocytopenia, unspecified; E86.0 Dehydration; F03.90 Unspecified dementia, unspecified severity, without behavioral disturbance, psychotic disturbance, mood disturbance, and anxiety; G35 Multiple sclerosis; G93.89 Other specified disorders of brain; K76.0 Fatty (change of) liver, not elsewhere classified; K75.9 Inflammatory liver disease, unspecified; I69.320 Aphasia following cerebral infarction; I69.392 Facial weakness following cerebral infarction; F32.9 Major depressive disorder, single episode, unspecified; I10 Essential (primary) hypertension; E78.5 Hyperlipidemia, unspecified; E78.00 Pure hypercholesterolemia, unspecified; K59.00 Constipation, unspecified; N39.41 Urge incontinence; G47.33 Obstructive sleep apnea (adult) (pediatric); E03.9 Hypothyroidism, unspecified; G89.29 Other chronic pain; M47.9 Spondylosis, unspecified; M79.7 Fibromyalgia; D72.819 Decreased white blood cell count, unspecified; R16.1 Splenomegaly, not elsewhere classified; M19.90 Unspecified osteoarthritis, unspecified site; R53.81 Other malaise; Z79.891 Long term (current) use of opiate analgesic; Z79.82 Long term (current) use of aspirin; Z79.890 Hormone replacement therapy; Z79.01 Long term (current) use of anticoagulants; Z79.899 Other long term (current) drug therapy; Z87.440 Personal history of urinary (tract) infections; Z86.711 Personal history of pulmonary embolism; Z86.19 Personal history of other infectious and parasitic diseases; Z90.710 Acquired absence of both cervix and uterus; Z87.42 Personal history of other diseases of the female genital tract; Z87.74 Personal history of (corrected) congenital malformations of heart and circulatory system; Z90.49 Acquired absence of other specified parts of digestive tract; Z87.19 Personal history of other diseases of the digestive system; Z87.891 Personal history of nicotine dependence; Z86.718 Personal history of other venous thrombosis and embolism; Z86.69 Personal history of other diseases of the nervous system and sense organs; Z87.39 Personal history of other diseases of the musculoskeletal system and connective tissue; Z98.890 Other specified postprocedural states; Z82.49 Family history of ischemic heart disease and other diseases of the circulatory system; Z91.048 Other nonmedicinal substance allergy status; Z82.62 Family history of osteoporosis; Z83.3 Family history of diabetes mellitus; Z82.0 Family history of epilepsy and other diseases of the nervous system
CPT/HCPCS: 36415; 70450; 71046; 74018; 76700; 80053; 80074; 81001; 82140; 82607; 82747; 83605; 83735; 84484; 85025; 85610; 85730; 87086; 93005; 96361; 96374; 96375; 99285

== ENCOUNTER → 2020-09-30 | Outpatient (CLI) | payer MEDICARE, OTHER ==
--- NOTE | 2020-09-30 13:33 | CT ---
EXAMINATION TYPE: CT abdomen pelvis w con DATE OF EXAM: 09/30/2020 COMPARISON: 04/29/2020 HISTORY: RLQ pain CT DLP: 1860.70 mGycm CONTRAST: CT scan of the abdomen and pelvis is performed with Oral Contrast and with IV Contrast, patient injec génesis with 100 ml mL of Isovue 300. FINDINGS: LUNG BASES-: No visible nodule. No infiltrate. LIVER/GB: No calcified gallstones. No space occupying hepatic lesion. Biliary tree is of normal ca liber. PANCREAS: No inflammation. No distinct mass. SPLEEN: No splenic enlargement. No lesion seen. ADRENALS: No nodule. No thickening. KIDNEYS/BLADDER: No hydronephrosis. No nephrolithiasis. No distinct renal mass. Urinary bladder g rossly unremarkable. BOWEL: Previous appendectomy changes. Normal bowel caliber. No inflammation. GENITAL ORGANS: Hysterectomy changes identified. LYMPH NODES: No greater than 1cm abdominal or pelvic lymph nodes are appreciated. AORTA: No significant abnormality. OSSEOUS STRUCTURES: No significant abnormality is seen. OTHER: No significant additional abnormality is seen. IMPRESSION: 1. No acute process seen to account for the patient's symptoms.
== END | disposition home or self-care (01) ==
LOC: RADCTMAIN 10:35
PROVIDERS: ATTEND Internal Medicine
DX: R10.31 Right lower quadrant pain (principal)
CPT/HCPCS: 82565; 84520; 74177; 36415; Q9967

== ENCOUNTER 2020-11-24 20:14 | Inpatient (IN) | payer MEDICARE, OTHER ==
--- NOTE | 2020-11-24 21:09 | ED ---
General Adult HPI - General Chief complaint: Recheck/Abnormal Lab/Rx Stated complaint: MS Exacerbation Source: patient, family Mode of arrival: ambulatory Limitations: altered mental status - History of Present Illness Initial comments: Huong is a 65-year-old female with a complex medical history most significant for multiple sclerosis as well as history of a stroke in 2006 which resulted in expressive aphasia. Patient is brought to the emergency department today by ambulance for evaluation of worsening weakness and numbness. Patient attempts to provide medical history but is limited by her expressive aphasia. It seems that she is experiencing weakness and numbness in her lower extremities and now her hands. reports that she was previously on a medication for her MS however due to cost and no longer getting the medication for free through the drug company she has not had any medication for one month. They're attempting to change her to a new medication. Patient follows outpatient with Dr. Elizabeth neurology. - Related Data Home Medications Medication Instructions Recorded Confirmed Aspirin 81 mg PO DAILY@0900 11/08/13 11/24/20 Baclofen [Lioresal] 10 mg PO DAILY@169911/08/13 11/24/20 Citalopram Hydrobromide [CeleXA] 40 mg PO HS@209911/08/13 11/24/20 Ferrous Sulfate [Feosol] 325 mg PO DAILY@169911/08/13 11/24/20 Furosemide [Lasix] 40 mg PO BID@0900,169911/08/13 11/24/20 Montelukast [Singulair] 10 mg PO DAILY@169911/08/13 11/24/20 Pantoprazole Sodium [Protonix] 40 mg PO DAILY@0600 11/08/13 11/24/20 Potassium Chloride 20 meq PO BID@0900,1700 11/08/13 11/24/20 Fluticasone Nasal [place] [Flonase 1 spray EA NOSTRIL DAILY@0911/18/15 11/24/20 Nasal [place]] Methylphenidate HCl [Ritalin] 20 mg PO TID@0900,1200,1500 11/18/15 11/24/20 Pregabalin [Lyrica] 100 mg PO TID@0900,1700,2100 07/13/16 11/24/20 Folic Acid 0.4 mg PO DAILY@0900 08/18/16 11/24/20 Fexofenadine HCl 180 mg PO DAILY@2100 05/11/19 11/24/20 Levothyroxine Sodium [Levoxyl] 75 mcg PO DAILY@0900 05/11/19 11/24/20 Warfarin [Coumadin] 7.5 mg PO DAILY@1700 12/13/19 11/24/20 Nitroglycerin Sl Tabs [Nitrostat] 0.4 mg SUBLINGUAL Q5M PRN 04/29/20 11/24/20 fentaNYL 50MCG/HR PATCH [Duragesic 1 patch TRANSDERM Q72H 05/01/20 11/24/20 50MCG/HR] Cholecalciferol [Vitamin D3 (25 50 mcg PO DAILY@0911/24/20 11/24/20 Mcg = 1000 Iu)] Allergies Allergy/AdvReac Type Severity Reaction Status Date / Time adhesive Allergy SKIN Verified 11/24/20 22:15 PEELING Review of Systems ROS Statement: Those systems with pertinent positive or pertinent negative responses have been documented in the HPI. ROS Other: All systems not noted in ROS Statement are negative. Past Medical History Past Medical History: Chest Pain / Angina, CVA/TIA, Fibromyalgia, Musculoskeletal Disorder, Neurologic Disorder, Osteoarthritis (OA), Pulmonary Embolus (PE), Sleep Apnea/CPAP/BIPAP, Thyroid Disorder Additional Past Medical History / Comment(s): MULTIPLE SCLEROSIS, 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 PAINFUL FOR HER TO LIE FLAT. HX OF NOSEBLEED JUL 2014 AND RECEIVED PLASMA TRANSFUSION. History of Any Multi-Drug Resistant Organisms: VRE Date of last positivie culture/infection: 10/24/09 confirmed with infectious disease nurse on 08/18/16. MDRO Source:: URINE Past Surgical History: Ablation, Appendectomy, Cholecystectomy, Hernia Repair, Hysterectomy Additional Past Surgical History / Comment(s): Incisional hernia repair, laparoscopic lysis of adhesions in 1987, ganglion cyst removal of the left wrist, patent foramen ovale patch in 2006, RF ablation for back pain. Past Anesthesia/Blood Transfusion Reactions: No Reported Reaction Past Psychological History: Depression Smoking Status: Never smoker Past Alcohol Use History: None Reported Past Drug Use History: None Reported - Past Family History Mother Family Medical History: Hypertension Additional Family Medical History / Comment(s): osteoporosis Father Family Medical History: Dementia, Diabetes Mellitus General Exam - General Exam Comments Initial Comments: Physical Exam GENERAL: Patient is well-developed and well-nourished. Patient is nontoxic and well- hydrated and is in no distress. HENT: Normocephalic, Atraumatic. EYES: PERRL, EOMI PULMONARY: Unlabored respirations. No audible rales rhonchi or wheezing was noted. CARDIOVASCULAR: bradycardiac, regular ABDOMEN: Soft and nontender with normal bowel sounds. SKIN: Skin is clear with no lesions or rashes and otherwise unremarkable. : Deferred NEUROLOGIC: Expressive aphasia, seems to recognize her , moving all extremities is significant weakness in lower extremities, did not attempt to ambulate the hi ent MUSCULOSKELETAL: Normal extremities with adequate strength and full range of motion. No lower extremity swelling or edema. No calf tenderness. PSYCHIATRIC: Normal psychiatric evaluation. Limitations: altered mental status Course Vital Signs 11/24/20 20:17 Temperature 97.7 F Pulse Rate 77 Respiratory 18 Rate Blood Pressure 126/74 O2 Sat by Pulse 96 Oximetry EKG Findings - EKG Comments: EKG Findings:: EKG was obtained as part of the weakness workup, EKG was obtained at 2152, rate is 49 rhythm is sinus bradycardia there are normal intervals, ID 180, QRS 70, QTC [address] elevations or depressions there is no evidence of ischemia or infarction Medical Decision Making - Medical Decision Making The patient was seen and evaluated, history is obtained from the at bedside as the patient has expressive aphasia Labs were ordered and resulted with no significant abnormalities aside from some elevated BUN and creatinine, there is no UTI no pneumonia I suspect the patient's MS exacerbation is due to medication noncompliance rathe r than infection Patient care was discussed with her primary care physician who accepts the admission with a consult to neurology recommends Solu-Medrol 250 mg twice a day for treatment of MS exacerbation Patient's was updated on plan for admission - Lab Data Result diagrams: 11/24/20 21:46 11/24/20 21:46 Lab Results 11/24/20 11/24/20 11/24/20 Range/Units 21:46 21:46 21:46 WBC 2.9 L (3.8-10.6) k/uL RBC 4.21 (3.80-5.40) m/uL Hgb 13.0 (11.4-16.0) gm/dL Hct 37.4 (34.0-46.0) % MCV 88.9 (80.0-100.0) fL MCH 30.9 (25.0-35.0) pg MCHC 34.8 (31.0-37.0) g/dL RDW 13.3 (11.5-15.5) % Plt Count 112 L (150-450) k/uL MPV 10.0 Neutrophils % 62 % Lymphocytes % 24 % Monocytes % 8 % Eosinophils % 4 % Basophils % 0 % Neutrophils # 1.8 (1.3-7.7) k/uL Lymphocytes # 0.7 L (1.0-4.8) k/uL Monocytes # 0.2 (0-1.0) k/uL Eosinophils # 0.1 (0-0.7) k/uL Basophils # 0.0 (0-0.2) k/uL Sodium 141 (137-145) mmol/L Potassium 3.8 (3.5-5.1) mmol/L Chloride 105 (98-107) mmol/L Carbon Dioxide 32 H (22-30) mmol/L Anion Gap 4 mmol/L BUN 26 H (7-17) mg/dL Creatinine 1.41 H (0.52-1.04) mg/dL Est GFR (CKD-EPI)AfAm 45 (>60 ml/min/1.73 sqM) Est GFR (CKD-EPI)NonAf 39 (>60 ml/min/1.73 sqM) Glucose 117 H (74-99) mg/dL Plasma Lactic Acid Simone (0.7-2.0) mmol/L Calcium 9.1 (8.4-10.2) mg/dL Magnesium 2.2 (1.6-2.3) mg/dL Total Bilirubin 0.6 (0.2-1.3) mg/dL AST 31 (14-36) U/L ALT 20 (4-34) U/L Alkaline Phosphatase 71 (38-126) U/L Troponin I (0.000-0.034) ng/mL Total Protein 5.7 L (6.3-8.2) g/dL Albumin 3.5 (3.5-5.0) g/dL TSH 4.920 H (0.465-4.680) mIU/L Urine Color Light Yellow Urine Appearance Clear (Clear) Urine pH 6.5 (5.0-8.0) Ur Specific [place] 1.010 (1.001-1.035) Urine Protein Negative (Negative) Urine Glucose (UA) Negative (Negative) Urine Ketones Negative (Negative) Urine Blood Negative (Negative) Urine Nitrite Negative (Negative) Urine Bilirubin Negative (Negative) Urine Urobilinogen <2.0 (<2.0) mg/dL Ur Leukocyte Esterase Negative (Negative) 11/24/20 11/24/20 Range/Units 21:46 21:46 WBC (3.8-10.6) k/uL RBC (3.80-5.40) m/uL Hgb (11.4-16.0) gm/dL Hct (34.0-46.0) % MCV (80.0-100.0) fL MCH (25.0-35.0) pg MCHC (31.0-37.0) g/dL RDW (11.5-15.5) % Plt Count (150-450) k/uL MPV Neutrophils % % Lymphocytes % % Monocytes % % Eosinophils % % Basophils % % Neutrophils # (1.3-7.7) k/uL Lymphocytes # (1.0-4.8) k/uL Monocytes # (0-1.0) k/uL Eosinophils # (0-0.7) k/uL Basophils # (0-0.2) k/uL Sodium (137-145) mmol/L Potassium (3.5-5.1) mmol/L Chloride (98-107) mmol/L Carbon Dioxide (22-30) mmol/L Anion Gap mmol/L BUN (7-17) mg/dL Creatinine (0.52-1.04) mg/dL Est GFR (CKD-EPI)AfAm (>60 ml/min/1.73 sqM) Est GFR (CKD-EPI)NonAf (>60 ml/min/1.73 sqM) Glucose (74-99) mg/dL Plasma Lactic Acid Simone 0.9 (0.7-2.0) mmol/L Calcium (8.4-10.2) mg/dL Magnesium (1.6-2.3) mg/dL Total Bilirubin (0.2-1.3) mg/dL AST (14-36) U/L ALT (4-34) U/L Alkaline Phosphatase (38-126) U/L Troponin I <0.012 (0.000-0.034) ng/mL Total Protein (6.3-8.2) g/dL Albumin (3.5-5.0) g/dL TSH (0.465-4.680) mIU/L Urine Color Urine Appearance (Clear) Urine pH (5.0-8.0) Ur Specific [place] (1.001-1.035) Urine Protein (Negative) Urine Glucose (UA) (Negative) Urine Ketones (Negative) Urine Blood (Negative) Urine Nitrite (Negative) Urine Bilirubin (Negative) Urine Urobilinogen (<2.0) mg/dL Ur Leukocyte Esterase (Negative) Disposition Clinical Impression: Multiple sclerosis exacerbation, Expressive aphasia Disposition: ADMITTED IP TO THIS [facility] Condition: Serious Referrals: Sarah Paredes MD [Primary Care Provider] - 1-2 days
--- NOTE | 2020-11-24 22:00 | XR ---
EXAMINATION TYPE: XR chest 1V portable DATE OF EXAM: 11/24/2020 COMPARISON: 05/01/2020 HISTORY: Weakness TECHNIQUE: FINDINGS: Heart and mediastinum are normal. Lungs are clear. Diaphragm is normal. Bony thorax is inta ct. IMPRESSION: No active cardiopulmonary disease. No change.
[2020-11-24 22:09] LABS: Basophils % (A) 0 %; Eosinophils # (A) 0.1 k/uL (0-0.7); Eosinophils % (A) 4 %; HCT 37.4 % (34.0-46.0); Lymphocytes # (A) 0.7 k/uL (1.0-4.8); Lymphocytes % (A) 24 %; MCH 30.9 pg (25.0-35.0); MCHC 34.8 g/dL (31.0-37.0); MCV 88.9 fL (80.0-100.0); Monocytes # (A) 0.2 k/uL (0-1.0); Monocytes % (A) 8 %; Neutrophils # (A) 1.8 k/uL (1.3-7.7); Neutrophils % (A) 62 %; Platelet Count 112 k/uL (150-450); RBC 4.21 m/uL (3.80-5.40); RDW 13.3 % (11.5-15.5); WBC 2.9 k/uL (3.8-10.6)
[2020-11-24 22:25] LABS: Appearance,Urine Clear (Clear); Bilirubin,Urine Negative (Negative); Blood,Urine Negative (Negative); Color,Urine Light Yellow; Glucose,Urine (UA) Negative (Negative); Ketones,Urine Negative (Negative); Leukocyte Esterase,Urine Negative (Negative); Nitrite,Urine Negative (Negative); PH, Urine 6.5 (5.0-8.0); Protein,Urine Negative (Negative); Urobilinogen,Urine <2.0 mg/dL (<2.0)
[2020-11-24 22:27] LABS: Albumin 3.5 g/dL (3.5-5.0); Calcium 9.1 mg/dL (8.4-10.2); Magnesium 2.2 mg/dL (1.6-2.3); Potassium 3.8 mmol/L (3.5-5.1); Total Bilirubin 0.6 mg/dL (0.2-1.3); Total Protein 5.7 g/dL (6.3-8.2)
[2020-11-24] MEDS ORDERED: NALOXONE 0.4 MG/ML 1 ML VIAL IV PRN (22:54)
[2020-11-25 07:48] LABS: Glucose,Whole Blood 103 mg/dL (75-99)
[2020-11-25] MEDS: INSULIN ASPART (NovoLOG) 100 UNIT/ML VIAL SQ SCH ×4 (08:12→22:45)
[2020-11-25] MEDS ORDERED: methylPREDNISolone SOD SUCCI 125 MG/2 ML VIAL IV SCH (09:00)
[2020-11-25] MEDS ORDERED: NITROGLYCERIN SL TABS 0.4 MG TAB SUBLINGUAL PRN (09:06)
[2020-11-25 10:24] LABS: Basophils % (A) 0 %; Eosinophils # (A) 0.1 k/uL (0-0.7); Eosinophils % (A) 4 %; HCT 36.4 % (34.0-46.0); HGB 12.8 gm/dL (11.4-16.0); Lymphocytes # (A) 0.7 k/uL (1.0-4.8); Lymphocytes % (A) 32 %; MCH 31.9 pg (25.0-35.0); MCHC 35.3 g/dL (31.0-37.0); MCV 90.2 fL (80.0-100.0); Mean Platelet Volume 9.9; Monocytes # (A) 0.1 k/uL (0-1.0); Monocytes % (A) 5 %; Neutrophils # (A) 1.2 k/uL (1.3-7.7); Neutrophils % (A) 55 %; Platelet Count 102 k/uL (150-450); RBC 4.03 m/uL (3.80-5.40); RDW 13.2 % (11.5-15.5); WBC 2.2 k/uL (3.8-10.6)
[2020-11-25 10:42] LABS: Prothrombin Time 19.8 sec (9.0-12.0)
[2020-11-25 10:43] LABS: ALT 21 U/L (4-34); AST 32 U/L (14-36); African American GFR (CKD) 50 (>60 ml/min/1.73 sqM); Albumin 3.4 g/dL (3.5-5.0); Albumin/Globulin Ratio 1.5; Alkaline Phosphatase 64 U/L (38-126); Anion Gap 2 mmol/L; Blood Urea Nitrogen 25 mg/dL (7-17); Calcium 8.9 mg/dL (8.4-10.2); Carbon Dioxide 35 mmol/L (22-30); Chloride 104 mmol/L (98-107); Globulin 2.2 g/dL; Glucose 123 mg/dL (74-99); Non-African American GFR(CKD) 44 (>60 ml/min/1.73 sqM); Potassium 3.8 mmol/L (3.5-5.1); Sodium 141 mmol/L (137-145); Total Bilirubin 0.7 mg/dL (0.2-1.3); Total Protein 5.6 g/dL (6.3-8.2)
--- NOTE | 2020-11-25 10:46 | P.CNNES ---
History of Present Illness Consult date: 11/25/20 Requesting physician: Meagan Jewell Reason for Consult: Multiple Sclerosis Exacerbation History of Present Illness: This is a 64-year-old woman with medical history of left MCA stroke (2006) with residual expressive aphasia, relapsing remitting multiple sclerosis diagnosed by her outside neurologist, Hypertension, urinary incontinence, hyperlipidemia, obstructive sleep apnea, DVT on Coumadin, fibromyalgia who presented to the emergency department on the 11/24/2020 for worsening weakness and numbness in her lower extremities as well as the hands. History was difficult to obtain in details by the patient because of her aphasia. She said she has been expriencing pain in the lower extremities that started yesterday and has progressively traveling up the upper extremities. Per the ED note it is mentioned the patient is experiencing weakness and numbness in the her lower extremities and now hands. Per the ED noted the patient notified the ED team that she was previously on medications for MS for free thru [facility] [id number] however due to cost she no longer getting the medication for one month and she in p rocess of changing medication. Patient follows up with Dr. Elizabeth's office for her neurological care. Some of the home medication she is on are aspirin 81 mg, baclofen 10 mg daily, R, 100 mg 1 tablet 3 times a day, Coumadin, Celexa. In the past the patient was on the pravastatin 20 mg but was stopped because patient had elevated liver function test The patient is known to our neurology service. I personally saw the patient last on 05/08/2020 and the I felt the patient's altered mental status was likely due to toxic metabolic encephalopathy as well as a septic from the urinary tract infection. Regarding her diagnosis of multiple sclerosis I reviewed the MRI of the brain on 04/29/2018 our system and there is no lesion supporting multiple sclerosis. As well as Dr. Teixeira's note upon seeing her in the past he did he was not convinced the patient had evidence of multiple sclerosis. She had MRI of the cervical spine and 09/18/2017 which showed vague area of increased signal within the cervical spine cord at the C2-C3 and C3-C4. The monitoring difficult to exclude. Some of the workup in the hospital consisted of: Initial vital signs: His blood pressure of 126/74, heart rate of 77, respiratory of 18, temperature of 97.7 Fahrenheit oral and pulse ox of 96% room air. EKG is reported as marketed sinus bradycardia. Inferior infarct, age undetermined. Anterolateral infarct age undetermined. Abnormal EKG. Initial white blood cell is 2.9 (baseline is low since 2013) which is low and the platelet is 112 and has baseline that is low. Patient initial in the sodium is 141 which is normal. Serum glucose 117. Calcium is 9.1 which is normal. TSH is 4.92 which is elevated and I do not see any reflex and free T4. Review of Systems Review of system: The 12 point system was reviewed and apparent positive and negative per HPI. Past Medical History Past Medical History: Chest Pain / Angina, CVA/TIA, Fibromyalgia, Musculoskeletal Disorder, Neurologic Disorder, Osteoarthritis (OA), Pulmonary Embolus (PE), Sleep Apnea/CPAP/BIPAP, Thyroid Disorder Additional Past Medical History / Comment(s): MULTIPLE SCLEROSIS, 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 PAINFUL FOR HER TO LIE FLAT. HX OF NOSEBLEED JUL 2014 AND RECEIVED PLASMA TRANSFUSION. History of Any Multi-Drug Resistant Organisms: VRE Date of last positivie culture/infection: 10/24/09 confirmed with infectious dis ease nurse on 08/18/16. MDRO Source:: URINE Past Surgical History: Ablation, Appendectomy, Cholecystectomy, Hernia Repair, Hysterectomy Additional Past Surgical History / Comment(s): Incisional hernia repair, laparoscopic lysis of adhesions in 1987, ganglion cyst removal of the left wrist, patent foramen ovale patch in 2006, RF ablation for back pain. Past Anesthesia/Blood Transfusion Reactions: No Reported Reaction Past Psychological History: Depression Additional Psychological History / Comment(s): CELEXA to help sleep at night per . PT HAS DIFFICULTY W/SPEECH . HAS TO LOOK AT DIETARY MENU TO ORDER CAN'T DO IT BY PHONE. Pt resides with her spouse. She uses a cane to ambulate. She also has a walker.cpap machine Spouse drives her to appointments. Spouse assists her with some ADLs when needed. Smoking Status: Never smoker Past Alcohol Use History: None Reported Past Drug Use History: None Reported Additional Drug Use History / Comment(s): Lives at home with her requires some assistance with ADLs at times - Past Family History Mother Family Medical History: Hypertension Additional Family Medical History / Comment(s): osteoporosis Father Family Medical History: Dementia, Diabetes Mellitus Medications and Allergies Home Medications Medication Instructions Recorded Confirmed Type Aspirin 81 mg PO DAILY@0911/08/13 11/24/20 History Baclofen [Lioresal] 10 mg PO DAILY@169911/08/13 11/24/20 History Citalopram Hydrobromide [CeleXA] 40 mg PO HS@209911/08/13 11/24/20 History Ferrous Sulfate [Feosol] 325 mg PO DAILY@169911/08/13 11/24/20 History Furosemide [Lasix] 40 mg PO BID@0900,169911/08/13 11/24/20 History Montelukast [Singulair] 10 mg PO DAILY@169911/08/13 11/24/20 History Pantoprazole Sodium [Protonix] 40 mg PO DAILY@0611/08/13 11/24/20 History Potassium Chloride 20 meq PO BID@0900,169911/08/13 11/24/20 History Fluticasone Nasal [place] [Flonase 1 spray EA NOSTRIL DAILY@0911/18/15 11/24/20 History Nasal [place]] Methylphenidate HCl [Ritalin] 20 mg PO TID@0900,1200,1500 11/18/15 11/24/20 History Pregabalin [Lyrica] 100 mg PO TID@0900,1700,209907/13/16 11/24/20 History Folic Acid 0.4 mg PO DAILY@0908/18/16 11/24/20 History Fexofenadine HCl 180 mg PO DAILY@209905/11/19 11/24/20 History Levothyroxine Sodium [Levoxyl] 75 mcg PO DAILY@89905/11/19 11/24/20 History Warfarin [Coumadin] 7.5 mg PO DAILY@169912/13/19 11/24/20 History Nitroglycerin Sl Tabs [Nitrostat] 0.4 mg SUBLINGUAL Q5M PRN 04/29/20 11/24/20 History fentaNYL 50MCG/HR PATCH [Duragesic 1 patch TRANSDERM Q72H 05/01/20 11/24/20 History 50MCG/HR] Cholecalciferol [Vitamin D3 (25 50 mcg PO DAILY@0900 11/24/20 11/24/20 History Mcg = 1000 Iu)] Allergies Allergy/AdvReac Type Severity Reaction Status Date / Time adhesive Allergy SKIN Verified 11/24/20 22:15 PEELING Physical Examination - Vital Signs Vital Signs: Vital Signs Temp Pulse Pulse Resp BP BP Pulse Ox 11/25/20 05:03 97.6 F 49 L 16 90/53 97 11/25/20 01:18 98.0 F 50 L 18 106/61 95 11/25/20 01:00 42 L 18 11/25/20 00:00 46 L 18 11/24/20 23:00 43 L 18 11/24/20 20:17 97.7 F 77 18 126/74 96 Intake and Output 11/24/20 11/25/20 11/25/20 22:59 06:59 14:59 Intake Total 240 Balance 240 Intake: Oral 240 Other: # Voids 1 Weight 113.398 kg 113.398 kg GENERAL: The patient is lying in bed and is in mild acute distress. CHEST: The heart rate is regular rate rhythm. No murmurs to auscultation. No carotid bruit bilaterally. LUNG: Clear to auscultation bilaterally no wheezing noted throughout. Not labored breathing. ABDOMEN/GI: Bowel sounds present in all 4 quadrants. No tenderness to palpation throughout. INTEGUMENTARY: Left index finger nail is blackish in discoloration. NEUROLOGICAL: Higher mental function: The patient is awake, alert, oriented to self. She stated she was in hospital with options. Patient is following commands with verbal and sometimes with pontomine. She has paraphasic errors and grammatical errors. She has some preservation . Has expressive aphasia and no neglect. Cranial nerves: The pupils are round, equal and reactive to light. Visual lazar are full to confrontation throughout. Extraocular movement is intact no nystagmus is noted. Facial sensation is normal to touch throughout. Mild right nasolabial flattening but symetrical to smile. Hearing is normal bilaterally to hand rub. Tongue is midline and moved [id number] without any difficulty. No dysarthria is noted. Shoulder shrug is normal (antigravity) bilaterally. Motor: Gait is deferred because of her pain. The strength is moving all extremities above gravity without drift (could not assess individual muscle because of her diffuse pain). No spontaneous movement noted. Cerebellum: Normal finger to nose heel to chin bilaterally. Sensation: Could not assess especially since tender to touch. Reflexes (right/left): Could not assess because of pain. Plantars Could not assess. Results Urinalysis is negative for urinary tract infection. Murray virus PCR was not detected. - Laboratory Findings CBC and BMP: 11/25/20 09:40 11/25/20 09:40 Abnormal Lab Findings: Abnormal Labs 11/24/20 11/24/20 11/25/20 21:46 21:46 07:39 WBC 2.9 L Plt Count 112 L Lymphocytes # 0.7 L Carbon Dioxide 32 H BUN 26 H Creatinine 1.41 H Glucose 117 H POC Glucose (mg/dL) 103 H Total Protein 5.7 L TSH 4.920 H Assessment and Plan Assessment: Pain of bilateral lower that progressed to upper for the past one day (per ED note has worsening weakness and numbness in lower extremities and now hands). Rule out bleed especially since on coumadin. If negative for bleed rule out stroke vs MS exacerbation. History of left MCA stroke in 2006 with residual expressive aphasia Diagnosis of relapsing remitting multiple sclerosis diagnosed by her outside neurologist Hypertension Elevated TSH (4.92) Acute on Chronic kidney insuffiency Urinary incontinence Hyperlipidemia Obstructive sleep apnea DVT on Coumadin Fibromyalgia Plan: * I personally saw the patient last on 05/08/2020 and the I felt the patient's altered mental status was likely due to toxic metabolic encephalopathy as well as a septic from the urinary tract infection. * Regarding her diagnosis of multiple sclerosis I reviewed the MRI of the brain on 04/29/2018 our system and there is no lesion supporting multiple sclerosis. As well as Dr. Teixeira's note upon seeing her in the past he did he was not convinced the patient had evidence of multiple sclerosis. She had MRI of the cervical spine and 09/18/2017 which showed vague area of increased signal within the cervical spine cord at the C2-C3 and C3-C4. The monitoring difficult to exclude. * I ordered CT brain, cervical, thoracic and lumbar region to rule out bleed. * If negative will possibly order MRI Brain and Cervical w/ and w/o. If there are any new lesions enhancing, I will start the patient on IV Solu-Medrol 500mg every 12 hours for 3-5 days. * TSH is 4.92 which is elevated and I do not see any reflex and free T4. I ordered free T4 and will defer management to the primary team. * Aspirin 81 mg is continued. Recommend Lipitor 10 mg is suspicion that since the patient had elevated liver function test in the past if she cannot tolerate any statins then we'll hold off on any statins. * Consulted physical therapy and occupational therapy. * Ordered Q4 hour neuro checks and continous cardiac monitoring. * Vitamin B12 is 403 on 05/04/2020 which is normal and does not need to be repeated. Also red blood cell folate is 829 which is above the normal age was considered normal on 05/2020 and does not need to be repeated. * PT and INR are ordered by primary team and is pending. Will defer the adjustment of coumadin to the primary team. * We'll defer the rest of the medical management to the primary team. * I attempted to contact the patient's (Neel) via phone to get more information but no response. Will attempt later (and notified nurse to attempt to get hold of him). * I discussed the case with the nurse. Thank you for the consultation UPDATE: CT of the head is reported as there is mild diffuse age-related cerebral atrophy and chronic small vessel ischemic change along significant old the left-sided infarct old redemonstrated. No signal change from the most recent prior CT. I personally reviewed the CT of the head and there is no intraparenchymal bleed. CT cervical, thoracic and lumbar region it is reported as no acute findings are evident. In the body of the port it is mentioned that the patient has persistent slight S-shaped scoliotic curvature. Moderate to severe disc space narrowing and the C5 to C6 and C6 to C7 levels. Moderate to severe disc space narrowing with that Q room disc phenomenon at L5-S1 level. I ordered MRI of the brain and cervical region as well as MRI of the lumbar to see whether the patient has any new lesions especially with a reported diagnosis of multiple sclerosis. Kannan Reaves M.D. Neuro-hospitalist Time with Patient: Greater than 30
[2020-11-25 10:54] LABS: T4, Free (Free Thyroxine) 1.13 ng/dL (0.78-2.19)
[2020-11-25] MEDS: METHYLPHENIDATE HCL 10 MG TAB PO SCH ×2 (10:59→15:03)
--- NOTE | 2020-11-25 11:50 | P.HPIM ---
History of Present Illness H&P Date: 11/25/20 Chief Complaint: MS exacerbation This is a 65-year-old female patient who presented to the ER with complaints of increased weakness and numbness over the past week patient does have past medical history of MS and stroke expressive aphasia. Patient follows normally with Dr. Downing. Additional medical history includes fibromyalgia, chest pain, osteoarthritis, pulmonary embolism and thyroid disorder. Chest x-ray was performed showing no active cardiopulmonary disease. No change. COVID-19 negative. UA negative. TSH 4.920 will increase Synthroid to 88 mg. At this time neurology services will be consulted. Cardiology services also consulted for bradycardia. Home medications resumed. Patient denies any chest pain or shortness of breath. Patient denies nausea vomiting or diarrhea. Patient denies any urinary burning or frequency Review of Systems Please refer to HPI otherwise unremarkable Past Medical History Past Medical History: Chest Pain / Angina, CVA/TIA, Fibromyalgia, Musculoskele hector Disorder, Neurologic Disorder, Osteoarthritis (OA), Pulmonary Embolus (PE), Sleep Apnea/CPAP/BIPAP, Thyroid Disorder Additional Past Medical History / Comment(s): MULTIPLE SCLEROSIS, 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 PAINFUL FOR HER TO LIE FLAT. HX OF NOSEBLEED JUL 2014 AND RECEIVED PLASMA TRANSFUSION. History of Any Multi-Drug Resistant Organisms: VRE Date of last positivie culture/infection: 10/24/09 confirmed with infectious disease nurse on 08/18/16. MDRO Source:: URINE Past Surgical History: Ablation, Appendectomy, Cholecystectomy, Hernia Repair, Hysterectomy Additional Past Surgical History / Comment(s): Incisional hernia repair, laparoscopic lysis of adhesions in 1987, ganglion cyst removal of the left wrist, patent foramen ovale patch in 2006, RF ablation for back pain. Past Anesthesia/Blood Transfusion Reactions: No Reported Reaction Past Psychological History: Depression Additional Psychological History / Comment(s): CELEXA to help sleep at night per . PT HAS DIFFICULTY W/SPEECH . HAS TO LOOK AT DIETARY MENU TO ORDER CAN'T DO IT BY PHONE. Pt resides with her spouse. She uses a cane to ambulate. She also has a walker.cpap machine Spouse drives her to appointments. Spouse assists her with some ADLs when needed. Smoking Status: Never smoker Past Alcohol Use History: None Reported Past Drug Use History: None Reported Additional Drug Use History / Comment(s): Lives at home with her requires some assistance with ADLs at times - Past Family History Mother Family Medical History: Hypertension Additional Family Medical History / Comment(s): osteoporosis Father Family Medical History: Dementia, Diabetes Mellitus Medications and Allergies Home Medications Medication Instructions Recorded Confirmed Type Aspirin 81 mg PO DAILY@89911/08/13 11/24/20 History Baclofen [Lioresal] 10 mg PO DAILY@169911/08/13 11/24/20 History Citalopram Hydrobromide [CeleXA] 40 mg PO HS@209911/08/13 11/24/20 History Ferrous Sulfate [Feosol] 325 mg PO DAILY@169911/08/13 11/24/20 History Furosemide [Lasix] 40 mg PO BID@0900,169911/08/13 11/24/20 History Montelukast [Singulair] 10 mg PO DAILY@169911/08/13 11/24/20 History Pantoprazole Sodium [Protonix] 40 mg PO DAILY@0600 11/08/13 11/24/20 History Potassium Chloride 20 meq PO BID@0900,169911/08/13 11/24/20 History Fluticasone Nasal [place] [Flonase 1 spray EA NOSTRIL DAILY@0900 11/18/15 11/24/20 History Nasal [place]] Methylphenidate HCl [Ritalin] 20 mg PO TID@0900,1200,1500 11/18/15 11/24/20 History Pregabalin [Lyrica] 100 mg PO TID@0900,1700,209907/13/16 11/24/20 History Folic Acid 0.4 mg PO DAILY@89908/18/16 11/24/20 History Fexofenadine HCl 180 mg PO DAILY@209905/11/19 11/24/20 History Levothyroxine Sodium [Levoxyl] 75 mcg PO DAILY@0900 05/11/19 11/24/20 History Warfarin [Coumadin] 7.5 mg PO DAILY@169912/13/19 11/24/20 History Nitroglycerin Sl Tabs [Nitrostat] 0.4 mg SUBLINGUAL Q5M PRN 04/29/20 11/24/20 History fentaNYL 50MCG/HR PATCH [Duragesic 1 patch TRANSDERM Q72H 05/01/20 11/24/20 History 50MCG/HR] Cholecalciferol [Vitamin D3 (25 50 mcg PO DAILY@0900 11/24/20 11/24/20 History Mcg = 1000 Iu)] Allergies Allergy/AdvReac Type Severity Reaction Status Date / Time adhesive Allergy SKIN Verified 11/24/20 22:15 PEELING Physical Exam Vitals: Vital Signs Temp Pulse Pulse Resp BP BP Pulse Ox 11/25/20 05:03 97.6 F 49 L 16 90/53 97 11/25/20 01:18 98.0 F 50 L 18 106/61 95 11/25/20 01:00 42 L 18 11/25/20 00:00 46 L 18 11/24/20 23:00 43 L 18 11/24/20 20:17 97.7 F 77 18 126/74 96 Intake and Output 11/24/20 11/25/20 11/25/20 22:59 06:59 14:59 Intake Total 240 Balance 240 Intake: Oral 240 Other: # Voids 1 Weight 113.398 kg 113.398 kg Head normocephalic Neck supple Lungs clear to auscultation bilaterally no wheezing or crackles Heart regular rate and rhythm S1-S2, no rub or gallop Abdomen is soft nontender nondistended positive bowel sounds no hepatosplenomegaly Extremities no edema Neuro alert and orientated to 3. Expressive aphasia Results CBC & Chem 7: 11/25/20 09:40 11/25/20 09:40 Labs: Abnormal Lab Results - Last 24 Hours (Table) 11/24/20 11/24/20 11/25/20 Range/Units 21:46 21:46 07:39 WBC 2.9 L (3.8-10.6) k/uL Plt Count 112 L (150-450) k/uL Neutrophils # (1.3-7.7) k/uL Lymphocytes # 0.7 L (1.0-4.8) k/uL PT (9.0-12.0) sec INR (<1.2) Carbon Dioxide 32 H (22-30) mmol/L BUN 26 H (7-17) mg/dL Creatinine 1.41 H (0.52-1.04) mg/dL Glucose 117 H (74-99) mg/dL POC Glucose (mg/dL) 103 H (75-99) mg/dL Total Protein 5.7 L (6.3-8.2) g/dL Albumin (3.5-5.0) g/dL TSH 4.920 H (0.465-4.680) mIU/L 11/25/20 11/25/20 11/25/20 Range/Units 09:40 09:40 09:40 WBC 2.2 L (3.8-10.6) k/uL Plt Count 102 L (150-450) k/uL Neutrophils # 1.2 L (1.3-7.7) k/uL Lymphocytes # 0.7 L (1.0-4.8) k/uL PT 19.8 H (9.0-12.0) sec INR 2.0 H (<1.2) Carbon Dioxide 35 H (22-30) mmol/L BUN 25 H (7-17) mg/dL Creatinine 1.28 H (0.52-1.04) mg/dL Glucose 123 H (74-99) mg/dL POC Glucose (mg/dL) (75-99) mg/dL Total Protein 5.6 L (6.3-8.2) g/dL Albumin 3.4 L (3.5-5.0) g/dL TSH (0.465-4.680) mIU/L Thrombosis Risk Factor Assmnt - Choose All That Apply Each Factor Represents 1 point: Obesity (BMI >25) Each Risk Factor Represents 2 Points: Age 61-74 years Other congenital or acquired thrombophilia - If yes, enter type in comment: No Thrombosis Risk Factor Assessment Total Risk Factor Score: 3 Thrombosis Risk Factor Assessment Level: Moderate Risk Assessment and Plan Assessment: 1. Generalized weakness and increased numbness likely secondary to MS exacerbation. Neurology services have been consulted. Patient started on IV steroids 2. Bradycardia. Cardiology services have been consulted 3. Hypothyroidism. TSH 4.92. Synthroid increased to 88 mics 4. History of pulmonary embolism. Patient maintained on Coumadin. 5. History of fibromyalgia 6. History of CVA expressive aphasia deficit 7. Diabetes mellitus type 2 DVT prophylaxis Coumadin. GI prophylaxis Protonix cardiology and neurology service is consulted Time with Patient: Greater than 30
--- NOTE | 2020-11-25 11:59 | CT ---
EXAMINATION TYPE: CT brain wo con DATE OF EXAM: 11/25/2020 HISTORY: Generalized pain and weakness. History of MS. CT DLP: 1461.3 mGycm. Automated Exposure Control for Dose Reduction was Utilized. TECHNIQUE: CT scan of the head is performed without contrast. COMPARISON: CT brain May 01, 2020. FINDINGS: There is no acute intracranial hemorrhage or new midline shift identified. There is diffu se ventricular and sulcal prominence consistent with diffuse cerebral atrophy. There is low-attenuat ion in the periventricular white matter consistent with chronic small vessel ischemic change. Old in farct in the left MCA distribution is redemonstrated involving portions of the frontal temporal and p arietal lobes. Left-sided volume loss is stable. The globes are intact and the visualized sinuses rem ain clear. IMPRESSION: There is mild diffuse age-related cerebral atrophy and chronic small vessel ischemic hernandez ge along with significant old left-sided infarct all redemonstrated. No significant change from most recent prior CT.
--- NOTE | 2020-11-25 12:38 | CT ---
EXAMINATION TYPE: CT CervThorLumbar spine wo con DATE OF EXAM: 11/25/2020 COMPARISON: MRI cervical and thoracic spine 2016. HISTORY: Generalized pain and weakness. History of MS. CT DLP: 1789.3 mGycm Automated exposure control for dose reduction was used. FINDINGS: Persistent slight S-shaped scoliotic curvature. Vertebral body heights are maintained. Moderate to se joanne disc space narrowing C5-C6 and C6-C7 levels. Moderate to severe disc space narrowing with vacuum disc phenomenon at L5-S1 level. Spinal canal grossly preserved. No acute fracture or dislocation is seen. No large disc herniation clearly evident on axial or sagittal images. Cholecystectomy clips are ident ified. Tiny bilateral pleural effusions. Mild to moderate bibasilar linear scarring and/or atelectasi s. IMPRESSION: As above. No acute findings are evident.
[2020-11-25 12:49] LABS: Glucose,Whole Blood 154 mg/dL (75-99)
[2020-11-25 17:14] LABS: Glucose,Whole Blood 164 mg/dL (75-99)
[2020-11-25] MEDS: POTASSIUM CHLORIDE ER 20 MEQ TAB.ER PO SCH (17:50)
[2020-11-25] MEDS: FUROSEMIDE 40 MG TAB PO SCH (17:50)
[2020-11-25] MEDS: FERROUS SULFATE 325 MG TAB PO SCH (17:50)
[2020-11-25] MEDS: BACLOFEN 10 MG TAB PO SCH (17:50)
[2020-11-25] MEDS: MONTELUKAST 10 MG TAB PO SCH (17:50)
[2020-11-25] MEDS: PREGABALIN 100 MG CAP PO SCH ×2 (17:51→22:42)
[2020-11-25] MEDS: WARFARIN 7.5 MG TAB PO SCH (17:51)
[2020-11-25 19:52] LABS: Glucose,Whole Blood 231 mg/dL (75-99)
--- NOTE | 2020-11-25 22:25 | MR ---
EXAMINATION TYPE: MR brain/cspine wo/w DATE OF EXAM: 11/25/2020 COMPARISON: MR scan brain 04/28/2018. MR scan cervical spine 09/18/2017 HISTORY: Neck pain, BUE weakness, MS exacerbation CONTRAST: Standard multiplanar, multisequence MRI departmental protocol utilizing 11.5 mL intravenous Gadavist gadolinium contrast. There is cerebral cortical atrophy. There is no mass effect nor midline shift. There is increased sig nal on the T2 images related to large left old middle cerebral artery infarct involving the left temp oral lobe and parietal lobe. There is some enlargement of the left lateral ventricle. There is thinni ng of the corpus callosum. Contrast images show no pathologic enhancement of the brain and cervical s pine. There is normal enhancement of the venous sinuses. Sella turcica appears normal. There is no evidence of orbital mass. The cervical vertebra have normal alignment. There is mild degenerative disc space narrowing througho ut the cervical spine. There is mild spurring of the endplates. There is multilevel small posterior d isc herniation. There is developmentally adequate spinal canal. Disc herniation is larger at C3-4. Th e spinal canal measures 7.5 mm at C3-4 which is the narrowest point. Cervical spinal cord shows no ed yamilex. The posterior elements are intact. There is no compression fracture. IMPRESSION: Spondylotic changes in the cervical spine with multilevel small posterior disc herniation. No signifi cant spinal stenosis. No change. Cerebral atrophy. Old large left middle cerebral artery distribution infarct without change. No acute intracranial abnormality. No convincing evidence for demyelinating disease.
--- NOTE | 2020-11-25 22:33 | MR ---
EXAMINATION TYPE: MR lumbar spine wo/w con DATE OF EXAM: 11/25/2020 COMPARISON: 08/31/2017 HISTORY: LBP, BLE weakness, MS exacerbation. CONTRAST: Standard multiplanar, multisequence MRI departmental protocol utilizing 11.5 mL intravenous Gadavist gadolinium contrast. Lumbar vertebra have normal alignment. There is mild narrowing and decreased signal in the disks. The re is no compression fracture. I see no focal bone destruction. The lumbar neural foramina are fairly well-maintained. There is a small posterior disc bulge at L5-S1. There is developmentally adequate s elen canal. There is no significant spinal stenosis. There is no lumbar paraspinal mass. Sacroiliac joints are intact. IMPRESSION: Mild degenerative disc changes. No spinal stenosis. Small posterior disc bulging and herniation at L5 -S1. No significant change compared to old exam.
[2020-11-25] MEDS: CITALOPRAM HYDROBROMIDE 20 MG TAB PO SCH (22:43)
[2020-11-25] MEDS: LORATADINE 10 MG TAB PO SCH (22:43)
[2020-11-26] MEDS: ACETAMINOPHEN TAB 500 MG TAB PO PRN (00:45)
[2020-11-26] MEDS: PANTOPRAZOLE 40 MG TABLET PO SCH (06:12)
[2020-11-26] MEDS: LEVOTHYROXINE 88 MCG TAB PO SCH (06:12)
[2020-11-26 06:37] LABS: Basophils % (A) 0 %; Eosinophils % (A) 1 %; HCT 37.4 % (34.0-46.0); HGB 12.6 gm/dL (11.4-16.0); Lymphocytes # (A) 0.7 k/uL (1.0-4.8); Lymphocytes % (A) 11 %; MCHC 33.7 g/dL (31.0-37.0); Mean Platelet Volume 10.7; Monocytes # (A) 0.2 k/uL (0-1.0); Monocytes % (A) 4 %; Neutrophils # (A) 5.1 k/uL (1.3-7.7); Neutrophils % (A) 83 %; Platelet Count 129 k/uL (150-450); RDW 13.1 % (11.5-15.5); WBC 6.1 k/uL (3.8-10.6)
--- NOTE | 2020-11-26 06:40 | P.PN ---
Progress Note - Text Progress Note Date: 11/26/[address] reviewed of the C and L spine. This demonstrates spondylotic changes in the Cervical spine, mulitlevel, without severe stenosis. There are some mild areas of cord signal changes that are likely related to underlying demyelinating disease and not compressive pathology. L spine shows L5-S1 spondylosis with mild central and foraminal stenosis. No fracture or dislocation noted. Symptomatic treatment of back or neck pain reasonable. Pts neurological symptoms likely due to large areas of demyelination within the left hemisphere IF not on steroids, would recommend IV Gabapentin for nerve pain or radiculopathy Further recommendations pending full consult THank you for allowing us to participate in this patients care.
[2020-11-26 07:10] LABS: Glucose,Whole Blood 135 mg/dL (75-99)
[2020-11-26] MEDS: INSULIN ASPART (NovoLOG) 100 UNIT/ML VIAL SQ SCH ×4 (08:34→20:11)
[2020-11-26] MEDS: FLUTICASONE 50MCG/SPRAY NASAL 16GM EA NOSTRIL SCH (08:34)
[2020-11-26] MEDS: FOLIC ACID 1 MG TAB PO SCH (08:35)
[2020-11-26] MEDS: POTASSIUM CHLORIDE ER 20 MEQ TAB.ER PO SCH ×2 (08:35→17:27)
[2020-11-26] MEDS: CHOLECALCIFEROL 25 MCG (1000 IU) TABLET PO SCH (08:35)
[2020-11-26] MEDS: PREGABALIN 100 MG CAP PO SCH ×3 (08:35→20:10)
[2020-11-26] MEDS: METHYLPHENIDATE HCL 10 MG TAB PO SCH ×3 (08:35→15:04)
[2020-11-26] MEDS: ASPIRIN 81 MG PO SCH (08:35)
[2020-11-26] MEDS: FUROSEMIDE 40 MG TAB PO SCH ×2 (08:35→17:27)
[2020-11-26] MEDS ORDERED: LEVOTHYROXINE 75 MCG TAB PO SCH (09:00)
--- NOTE | 2020-11-26 10:32 | P.PN ---
Subjective Progress Note Date: 11/26/20 This is a 65-year-old female patient who presented to the ER with complaints of increased weakness and numbness over the past week patient does have past medical history of MS and stroke expressive aphasia. Patient follows normally with Dr. Downing. Additional medical history includes fibromyalgia, chest pain, osteoarthritis, pulmonary embolism and thyroid disorder. Chest x-ray was performed showing no active cardiopulmonary disease. No change. COVID-19 negative. UA negative. TSH 4.920 will increase Synthroid to 88 mg. At this time neurology services will be consulted. Cardiology services also consulted for bradycardia. Home medications resumed. Patient denies any chest pain or shortness of breath. Patient denies nausea vomiting or diarrhea. Patient denies any urinary burning or frequency On 11/26/2020 patient is alert and oriented 3. Patient is currently sitting up on side about working with physical therapy. Head CT and spinal MRIs ordered per neurology services. Orthopedic service is consulted for spinal spondylosis. At this time patient denies chest pain or shortness breath. Patient denies nausea vomiting or diarrhea. Patient denies urinary burning or frequency. Repeat labs have been ordered. Awaiting neurology input regards to steroids Objective - Vital Signs Vital signs: Vital Signs Temp 98.1 F 11/26/20 05:17 Pulse 47 L 11/26/20 05:17 Resp 16 11/26/20 05:17 BP 112/61 11/26/20 05:17 Pulse Ox 94 L 11/26/20 05:17 Intake & Output 11/25/20 11/26/20 11/26/20 18:59 06:59 18:59 Other: Voiding Method Bedside Commode # Voids 1 2 - Exam Head normocephalic Neck supple Lungs clear to auscultation bilaterally no wheezing or crackles Heart regular rate and rhythm S1-S2, no rub or gallop Abdomen is soft nontender nondistended positive bowel sounds no hepatosplenomegaly Extremities no edema Neuro alert and orientated to 3. Expressive aphasia - Labs CBC & Chem 7: 11/26/20 06:14 11/25/20 09:40 Labs: Abnormal Lab Results - Last 24 Hours (Table) 11/25/20 11/25/20 11/25/20 Range/Units 09:40 09:40 12:47 Plt Count (150-450) k/uL Lymphocytes # (1.0-4.8) k/uL PT 19.8 H (9.0-12.0) sec INR 2.0 H (<1.2) Carbon Dioxide 35 H (22-30) mmol/L BUN 25 H (7-17) mg/dL Creatinine 1.28 H (0.52-1.04) mg/dL Glucose 123 H (74-99) mg/dL POC Glucose (mg/dL) 154 H (75-99) mg/dL Total Protein 5.6 L (6.3-8.2) g/dL Albumin 3.4 L (3.5-5.0) g/dL 11/25/20 11/25/20 11/26/20 Range/Units 17:13 19:49 06:14 Plt Count 129 L (150-450) k/uL Lymphocytes # 0.7 L (1.0-4.8) k/uL PT (9.0-12.0) sec INR (<1.2) Carbon Dioxide (22-30) mmol/L BUN (7-17) mg/dL Creatinine (0.52-1.04) mg/dL Glucose (74-99) mg/dL POC Glucose (mg/dL) 164 H 231 H (75-99) mg/dL Total Protein (6.3-8.2) g/dL Albumin (3.5-5.0) g/dL 11/26/20 Range/Units 07:08 Plt Count (150-450) k/uL Lymphocytes # (1.0-4.8) k/uL PT (9.0-12.0) sec INR (<1.2) Carbon Dioxide (22-30) mmol/L BUN (7-17) mg/dL Creatinine (0.52-1.04) mg/dL Glucose (74-99) mg/dL POC Glucose (mg/dL) 135 H (75-99) mg/dL Total Protein (6.3-8.2) g/dL Albumin (3.5-5.0) g/dL Assessment and Plan Assessment: 1. Generalized weakness and increased numbness likely secondary to MS exacerbation. Neurology services have been consulted. Patient started on IV steroids 2. Bradycardia. Cardiology services have been consulted 3. Hypothyroidism. TSH 4.92. Synthroid increased to 88 mics 4. History of pulmonary embolism. Patient maintained on Coumadin. 5. History of fibromyalgia 6. History of CVA expressive aphasia deficit 7. Diabetes mellitus type 2 8. Spinal spondylosis. Patient was evaluated by with orthopedic services. Per orthopedic services symptomatic treatment of back or neck pain reasonable. DVT prophylaxis Coumadin. GI prophylaxis Protonix cardiology and neurology service is consulted
[2020-11-26 10:33] LABS: INR 2.16 (0.90-1.11); Prothrombin Time 22.4 sec (9.9-11.9)
--- NOTE | 2020-11-26 11:15 | P.CNOR ---
History of Present Illness - [facility] Consult date: 11/26/20 Requesting physician: Kannan Reaves Consult reason: other (spinal spondylosis) History of present illness: Patient presented the ER 11/24/2020 with progressive weakness/numbness in lower legs and hands. Patient has a history of multiple sclerosis that is progressive in nature and stroke in 2006. She also has expressive aphasia for which made the history and exam difficult to perform. Patient has followed with Dr. Elizabeth in outpatient setting. Upon entering room patient was ambulating with walker for assistance with physical therapist to the bathroom. She is able to ambulate, however she does this at a slow pace. Per the ED note patient came in with progressive leg weakness/numbness as well as a new weakness/numbness in the hands and upper extremities. Per the ED note, stated that patient has not been getting multiple sclerosis medications because they are not free now. Patient states she has pain throughout her body and points to her legs. She is not able to respond to questions properly. Patient denies any loss of bladder/bowel incontinence. Patient denies saddle anesthesia. Patient denies chest pain, shortness of breath, fever or chills. Past Medical History Past Medical History: Chest Pain / Angina, CVA/TIA, Fibromyalgia, Musculoskeletal Disorder, Neurologic Disorder, Osteoarthritis (OA), Pulmonary Embolus (PE), Sleep Apnea/CPAP/BIPAP, Thyroid Disorder Additional Past Medical History / Comment(s): MULTIPLE SCLEROSIS, 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 PAINFUL FOR HER TO LIE FLAT. HX OF NOSEBLEED JUL 2014 AND RECEIVED PLASMA TRANSFUSION. 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 MDRO Source:: URINE Past Surgical History: Ablation, Appendectomy, Cholecystectomy, Hernia Repair, Hysterectomy Additional Past Surgical History / Comment(s): Incisional hernia repair, laparoscopic lysis of adhesions in 1987, ganglion cyst removal of the left wrist, patent foramen ovale patch in 2006, RF ablation for back pain. Past Anesthesia/Blood Transfusion Reactions: No Reported Reaction Past Psychological History: Depression Additional Psychological History / Comment(s): CELEXA to help sleep at night per . PT HAS DIFFICULTY W/SPEECH . HAS TO LOOK AT DIETARY MENU TO ORDER CAN'T DO IT BY PHONE. Pt resides with her spouse. She uses a cane to ambulate. She also has a walker.cpap machine Spouse drives her to appointments. Spouse ass ists her with some ADLs when needed. Smoking Status: Never smoker Past Alcohol Use History: None Reported Past Drug Use History: None Reported Additional Drug Use History / Comment(s): Lives at home with her requires some assistance with ADLs at times - Past Family History Mother Family Medical History: Hypertension Additional Family Medical History / Comment(s): osteoporosis Father Family Medical History: Dementia, Diabetes Mellitus Medications and Allergies Home Medications Medication Instructions Recorded Confirmed Type Aspirin 81 mg PO DAILY@0900 11/08/13 11/24/20 History Baclofen [Lioresal] 10 mg PO DAILY@169911/08/13 11/24/20 History Citalopram Hydrobromide [CeleXA] 40 mg PO HS@209911/08/13 11/24/20 History Ferrous Sulfate [Feosol] 325 mg PO DAILY@169911/08/13 11/24/20 History Furosemide [Lasix] 40 mg PO BID@0900,1700 11/08/13 11/24/20 History Montelukast [Singulair] 10 mg PO DAILY@169911/08/13 11/24/20 History Pantoprazole Sodium [Protonix] 40 mg PO DAILY@0600 11/08/13 11/24/20 History Potassium Chloride 20 meq PO BID@0900,1700 11/08/13 11/24/20 History Fluticasone Nasal [place] [Flonase 1 spray EA NOSTRIL DAILY@0900 11/18/15 11/24/20 History Nasal [place]] Methylphenidate HCl [Ritalin] 20 mg PO TID@0900,1200,1500 11/18/15 11/24/20 History Pregabalin [Lyrica] 100 mg PO TID@0900,1700,2100 07/13/16 11/24/20 History Folic Acid 0.4 mg PO DAILY@0900 08/18/16 11/24/20 History Fexofenadine HCl 180 mg PO DAILY@209905/11/19 11/24/20 History Levothyroxine Sodium [Levoxyl] 75 mcg PO DAILY@0900 05/11/19 11/24/20 History Warfarin [Coumadin] 7.5 mg PO DAILY@1700 12/13/19 11/24/20 History Nitroglycerin Sl Tabs [Nitrostat] 0.4 mg SUBLINGUAL Q5M PRN 04/29/20 11/24/20 History fentaNYL 50MCG/HR PATCH [Duragesic 1 patch TRANSDERM Q72H 05/01/20 11/24/20 History 50MCG/HR] Cholecalciferol [Vitamin D3 (25 50 mcg PO DAILY@0900 11/24/20 11/24/20 History Mcg = 1000 Iu)] Allergies Allergy/AdvReac Type Severity Reaction Status Date / Time adhesive Allergy SKIN Verified 11/24/20 22:15 PEELING Physical Examination Skin inspection: Negative for any ulcers, lesions, open fractures, ecchymosis. Palpation: diffuse, non-localized tenderness to palpation throughout the lower extremities. Diffuse pain to palpation throughout the back and upper extremities. Rest of exam is limited due to patient's status Sensation: Sensation intact to bilateral upper and lower extremities. Due to patient's status and history, sensation may not be symmetric. Range of motion: Patient is able to elevate arms bilaterally. While sitting in bed patient is able to lift legs. Lower extremities limited range of motion. Rest exam due to patient's status. Motor: Office Machine Mechanic strength 5 out of 5. Resisted flexion and extension of the elbows 3 out of 5. Bilateral lower extremity motor exam limited due to patient's status and patient being in significant pain to palpation of lower extremities. Tensioning signs/reflexes: Negative Homans bilaterally. Negative clonus upon dorsiflexing feet bilaterally. Negative Homans. Rest of reflexes not able to assess due to patient's status. Neurovascular: Dorsalis pedis pulses intact, bilaterally 2+. Cap refill below 3 seconds bilaterally. Results - Labs Labs: Abnormal Lab Results - Last 24 Hours (Table) 11/25/20 11/25/20 11/25/20 Range/Units 09:40 09:40 09:40 WBC 2.2 L (3.8-10.6) k/uL Plt Count 102 L (150-450) k/uL Neutrophils # 1.2 L (1.3-7.7) k/uL Lymphocytes # 0.7 L (1.0-4.8) k/uL PT 19.8 H (9.0-12.0) sec INR 2.0 H (<1.2) Carbon Dioxide 35 H (22-30) mmol/L BUN 25 H (7-17) mg/dL Creatinine 1.28 H (0.52-1.04) mg/dL Glucose 123 H (74-99) mg/dL POC Glucose (mg/dL) (75-99) mg/dL Total Protein 5.6 L (6.3-8.2) g/dL Albumin 3.4 L (3.5-5.0) g/dL 11/25/20 11/25/20 11/25/20 Range/Units 12:47 17:13 19:49 WBC (3.8-10.6) k/uL Plt Count (150-450) k/uL Neutrophils # (1.3-7.7) k/uL Lymphocytes # (1.0-4.8) k/uL PT (9.0-12.0) sec INR (<1.2) Carbon Dioxide (22-30) mmol/L BUN (7-17) mg/dL Creatinine (0.52-1.04) mg/dL Glucose (74-99) mg/dL POC Glucose (mg/dL) 154 H 164 H 231 H (75-99) mg/dL Total Protein (6.3-8.2) g/dL Albumin (3.5-5.0) g/dL 11/26/20 11/26/20 Range/Units 06:14 07:08 WBC (3.8-10.6) k/uL Plt Count 129 L (150-450) k/uL Neutrophils # (1.3-7.7) k/uL Lymphocytes # 0.7 L (1.0-4.8) k/uL PT (9.0-12.0) sec INR (<1.2) Carbon Dioxide (22-30) mmol/L BUN (7-17) mg/dL Creatinine (0.52-1.04) mg/dL Glucose (74-99) mg/dL POC Glucose (mg/dL) 135 H (75-99) mg/dL Total Protein (6.3-8.2) g/dL Albumin (3.5-5.0) g/dL H & H 11/24/20 11/25/20 11/26/20 Range/Units 21:46 09:40 06:14 Hgb 13.0 12.8 12.6 (11.4-16.0) gm/dL Hct 37.4 36.4 37.4 (34.0-46.0) % Coagulation 11/25/20 Range/Units 09:40 INR 2.0 H (<1.2) Result Diagrams: 11/26/20 06:14 11/25/20 09:40 Assessment and Plan Plan: 1. Spinal spondylosis - spinal spondylosis noted on imaging studies. I did discuss with my physician the images and at this time there is no evident compressive pathology based on the CT, MRI throughout the spine. There is no evidence of fractures, dislocations. We appreciate the consult. At this time we'll try conservative measures for treatment. At this time surgical intervention is not recommended. At this time patient is orthopedically stable and ready for discharge from an orthopedic standpoint. Please contact us if needed for any orthopedic intervention. Patient can follow up with us in the outpatient setting. 2. Bilateral lower extremity radiculopathy - patient currently on Lyrica. 3. Multiple sclerosis; History of stroke with expressive aphasia - difficult to obtain a good history and physical exam based on patient's status. Neuro and medicine following 4. Appreciate medical and neurological management 5. Pain management - stable at this time 6. GI prophylaxis/ DVT prophylaxis- warfarin per pharmacy; protonix 7. PT/OT - physical therapy was assisting the patient this morning when she went to the bathroom was in the room. Patient weightbearing as tolerated with walker for assistance. 8. Appreciate consult Time with Patient: Less than 30
[2020-11-26 12:05] LABS: Glucose,Whole Blood 120 mg/dL (75-99)
[2020-11-26 12:21] LABS: African American GFR (CKD) 54.2 (60.0-200.0); Albumin 3.7 g/dL (3.80-4.90); Albumin/Globulin Ratio 1.95 (1.60-3.17); Anion Gap 10.1 mmol/L (4.00-12.00); BUN/Creat Ratio 21.67 Ratio (12.00-20.00); Carbon Dioxide 25.9 mmol/L (21.6-31.8); Globulin 1.9 g/dL (1.6-3.3); Non-African American GFR(CKD) 46.7 (60.0-200.0); Potassium 4.3 mmol/L (3.5-5.5); Total Bilirubin 0.6 mg/dL (0.2-1.2); Total Protein 5.6 g/dL (6.2-8.2)
--- NOTE | 2020-11-26 13:02 | P.PN ---
Subjective Progress Note Date: 11/26/20 The patient is seen at bedside and she feels about the same. She continues to have pain throughout the whole body and feels painful to touch. MRI the brain w/ and w/o: As reported as old large left middle cerebral artery distribution infarct without change. No acute intracranial abnormality. MRI Cervical spine w/ and w/o and cervical spine with and without is reported as frontal changes in the cervical spine with multilevels small posterior disc herniation. No significant spinal stenosis at. No change. MRI of the lumbar spine is reported as mild degenerative disc changes. No spinal stenosis. Small posterior disc bulging and herniation at the L5-S1. No significant change compared to old exam. I personally reviewed the MRI images and I am still not convinced that the patient has multiple sclerosis radiographically. Objective - Vital Signs Vital signs: Vital Signs Temp 98.1 F 11/26/20 05:17 Pulse 47 L 11/26/20 05:17 Resp 16 11/26/20 05:17 BP 112/61 11/26/20 05:17 Pulse Ox 94 L 11/26/20 05:17 Intake & Output 11/25/20 11/26/20 11/26/20 18:59 06:59 18:59 Other: Voiding Method Bedside Commode Bedside Commode # Voids 1 2 - Exam GENERAL: The patient is lying in bed and is in mild acute distress. INTEGUMENTARY: Has red rash over the bilateral cheek region and seems like butterfly rash and has red rash over the right side of eyebrow. MUSCULOSKELETAL: Has tender to touch throughout all extremities and joints of upper and lower extremities. NEUROLOGICAL: Higher mental function: The patient is awake, alert, oriented to self. She st ated she was in hospital with options. Patient is following commands with verbal and sometimes with pontomine. She has paraphasic errors and grammatical errors. She has some preservation . Has expressive aphasia and no neglect. Cranial nerves: The pupils are round, equal and reactive to light. Visual lazar are full to confrontation throughout. Extraocular movement is intact no nystagmus is noted. Facial sensation is normal to touch throughout. Mild right nasolabial flattening but symetrical to smile. Hearing is normal bilaterally to hand rub. Tongue is midline and moved [id number] without any difficulty. No dysarthria is noted. Shoulder shrug is normal (antigravity) bilaterally. Motor: Gait is deferred because of her pain. The strength is moving all extremities above gravity without drift (could not assess individual muscle because of her diffuse pain). No spontaneous movement noted. Sensation: Could not assess especially since tender to touch. Reflexes (right/left): Could not assess because of pain. Plantars Could not assess. - Labs CBC & Chem 7: 11/26/20 06:14 11/26/20 06:14 Labs: Abnormal Lab Results - Last 24 Hours (Table) 11/25/20 11/25/20 11/25/20 Range/Units 12:47 17:13 19:49 Plt Count (150-450) k/uL Lymphocytes # (1.0-4.8) k/uL PT (9.9-11.9) sec INR (0.90-1.11) POC Glucose (mg/dL) 154 H 164 H 231 H (75-99) mg/dL 11/26/20 11/26/20 11/26/20 Range/Units 06:14 06:14 07:08 Plt Count 129 L (150-450) k/uL Lymphocytes # 0.7 L (1.0-4.8) k/uL PT 22.4 H (9.9-11.9) sec INR 2.16 H (0.90-1.11) POC Glucose (mg/dL) 135 H (75-99) mg/dL 11/26/20 Range/Units 12:03 Plt Count (150-450) k/uL Lymphocytes # (1.0-4.8) k/uL PT (9.9-11.9) sec INR (0.90-1.11) POC Glucose (mg/dL) 120 H (75-99) mg/dL Assessment and Plan Assessment: * Generalized pain throughout entire upper and lower extremity with rash over the bilateral cheek (seems like butterfly rash) and rash over the right eyebrow. I feel patient has connective tissue disease and possibly Lupus (or rule out other connective tissue disease). No new stroke and on imaging and I am not convinced she has MS. * History of left MCA stroke in 2006 with residual expressive aphasia * Diagnosis of relapsing remitting multiple sclerosis diagnosed by her outside n eurologist * Hypertension * Elevated TSH (4.92) * Acute on Chronic kidney insuffiency * Urinary incontinence * Hyperlipidemia * Obstructive sleep apnea * DVT on Coumadin * Fibromyalgia Plan: * I personally saw the patient last on 05/08/2020 and the I felt the patient's altered mental status was likely due to toxic metabolic encephalopathy as well as a septic from the urinary tract infection. * Regarding her diagnosis of multiple sclerosis I reviewed the MRI of the brain on 04/29/2018 our system and there is no lesion supporting multiple sclerosis. As well as Dr. Teixeira's note upon seeing her in the past he did he was not convinced the patient had evidence of multiple sclerosis. She had MRI of the cervical spine and 09/18/2017 which showed vague area of increased signal within the cervical spine cord at the C2-C3 and C3-C4. The monitoring difficult to exclude. * CT of the head is reported as there is mild diffuse age-related cerebral atrophy and chronic small vessel ischemic change along significant old the left-sided infarct old redemonstrated. No signal change from the most recent prior CT. I personally reviewed the CT of the head and there is no intraparenchymal bleed. * CT cervical, thoracic and lumbar region it is reported as no acute findings are evident. In the body of the port it is mentioned that the patient has persistent slight S-shaped scoliotic curvature. Moderate to severe disc space narrowing and the C5 to C6 and C6 to C7 levels. Moderate to severe disc space narrowing with that Q room disc phenomenon at L5-S1 level. * MRI the brain w/ and w/o: As reported as old large left middle cerebral artery distribution infarct without change. No acute intracranial abnormality. * MRI Cervical spine w/ and w/o and cervical spine with and without is reported as frontal changes in the cervical spine with multilevels small posterior disc herniation. No significant spinal stenosis at. No change. * MRI of the lumbar spine is reported as mild degenerative disc changes. No spinal stenosis. Small posterior disc bulging and herniation at the L5-S1. No significant change compared to old exam. I personally reviewed the MRI images and I am still not convinced that the patient has multiple sclerosis radiographically. * TSH is 4.92 which is elevated and free T4 is 1.13 (normal). * I ordered NENA, [id number] DNA, cANCA, pANCA, creatinine kinase, WILLIAM, Terrie 1 antibody, rheumatoid factor, TERMINAL WORKER antibody, anti-Lou antibody, lupus anticoagulant, SSA and SSB antibody, TERMINAL WORKER antibody, ESR and CRP, anti-PM/Scl 100 ab. * I recommend rheumatology consultation and I notified the primary team regarding my concern and he stated that he will consult rheumatology and the primary team will place the patient on steroids and I'll defer the management to the primary team. * Aspirin 81 mg is continued. Recommend Lipitor 10 mg is suspicion that since the patient had elevated liver function test in the past if she cannot sakshi erate any statins then we'll hold off on any statins. * Consulted physical therapy and occupational therapy. * Continue Q4 hour neuro checks and continous cardiac monitoring. * Vitamin B12 is 403 on 05/04/2020 which is normal and does not need to be repeated. Also red blood cell folate is 829 which is above the normal age was considered normal on 05/2020 and does not need to be repeated. * Orthopedic team evaluated the patient for spondylosis and no intervention. * We'll defer the rest of the medical management to the primary team. The plan is discussed with the nurse and the primary team. Kannan Reaves M.D. Neuro-hospitalist Time with Patient: Less than 30
--- NOTE | 2020-11-26 13:22 | P.CRDCN ---
History of Present Illness History of present illness: HISTORY OF PRESENTING ILLNESS This is a pleasant 65-year-old female past medical history significant for multiple sclerosis, Left MCA Stroke 2006 with expressive aphasia, Hypertension, urinary incontinence, hyperlipidemia, obstructive sleep apnea, bradycardia, PE/DVT on Coumadin, fibromyalgia. She follows in the office with Dr. Dowling. We have been asked to see in consultation for bradycardia. Patient is brought to the emergency department 11/24/2020 by ambulance for evaluation of worsening weakness and numbness in her lower extremities as well as the hands. History was difficult to obtain in details by the patient because of her aphasia. She said she has been expriencing pain in the lower extremities that started and has progressively traveling up the upper extremities. Neurology has been consult for the patient. Orthopedic cement consultation the patient per the patient's CT results at this time they do not recommend surgical intervention. DIAGNOSTICS EKG reveals Sinus bradycardia HR 49, no significant ST-T wave abnormalities. Prior EKGs in 04/2020 and in 2018, patient was in sinus bradycardia HR 50s. EKG look similar to prior. Telemetry tracings indicate sinus bradycardia, heart rate 40s to 50s. No pauses. Bradycardia usually occurs in the patient's sleeping imaging 12 AM to 6 AM. Over the afternoon patient's heart rate was in the 60s and higher. CT Brain- mild diffuse age-related cerebral atrophy and chronic small vessel ischemic change along with old left sided infarct. No significant change from prior CT CT spine- moderate to severe disc space narrowing at C5 to C6 and C6 to C7 levels. Moderate to severe disc space narrowing with vacuum disc phenomenon at L5 doubtless 1 level. No acute fracture dislocation. No large disc herniation. Tiny bilateral pleural effusions Chest xray no acute cardiopulmonary process Laboratory reviewed, WBC 2.2, hemoglobin 12.8, platelets 102, INR 2.0, sodium 141, potassium 3.8, serum creatinine 1.28, TSH 4.9, free T4 1.1, COVID-19 negative Current home cardiac medications include Coumadin 7.5 mg daily, potassium chloride 20 mEq twice a day, Lasix 20 mg twice a day, aspirin 81 mg daily REVIEW OF SYSTEMS At the time of my exam: CONSTITUTIONAL: Denies fever or chills. CARDIOVASCULAR: Denies chest pain, shortness of breath, orthopnea, PND or palpitations. RESPIRATORY: Denies cough. GASTROINTESTINAL: Denies abdominal pain, diarrhea, constipation, nausea or vomiting. MUSCULOSKELETAL: Denies myalgias. NEUROLOGIC: +weakness Denies numbness, tingling, headacbe or weakness. ENDOCRINE: Denies fatigue, weight change, polydipsia or polyurina. GENITOURINARY: Denies burning, hematuria or urgency with micturation. HEMATOLOGIC: Denies history of anemia or bleeding. PHYSICAL EXAMINATION Blood pressure 112/61 heart rate 47 afebrile and maintaining oxygen saturation 94% on room air CONSTITUTIONAL: No apparent distress. HEENT: Head is normocephalic. Pupils are equal, round. Sclerae anicteric. Mucous membranes of the mouth are moist. No JVD. No carotid bruit. CHEST EXAMINATION: Lungs are clear to auscultation. No chest wall tenderness is noted on palpation or with deep breathing. HEART EXAMINATION: Regular rate and rhythm. S1, S2 heard. No murmurs, gallops or rub. ABDOMEN: Soft, nontender. Positive bowel sounds. EXTREMITIES: 2+ peripheral pulses, no lower extremity edema. NEUROLOGIC EXAMINATION: Patient is awake, alert and oriented x3. ASSESSMENT Sinus bradycardia, asymptomatic Multiple sclerosis Bilateral upper and lower extremity pain History of DVT/PE on long-term anticoagulation coumadin Obstructive sleep apnea History of CVA with right-sided weakness and expressive aphasia Dyslipidemia Obesity, BMI 34 PLAN Patient in sinus bradycardia, asymptomatic. Her bradycardia has mostly occurred while sleeping. She is not on any AV mor blocking agents. No further recommendations or testing from cardiology perspective We will sign off at this time. Patient can follow-up in the office with Dr. Dowling Nurse Practitioner note has been reviewed, I agree with a documented findings a nd plan of care. Patient was seen and examined. Past Medical History Past Medical History: Chest Pain / Angina, CVA/TIA, Fibromyalgia, Musculoskeletal Disorder, Neurologic Disorder, Osteoarthritis (OA), Pulmonary Embolus (PE), Sleep Apnea/CPAP/BIPAP, Thyroid Disorder Additional Past Medical History / Comment(s): MULTIPLE SCLEROSIS, 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 PAINFUL FOR HER TO LIE FLAT. HX OF NOSEBLEED JUL 2014 AND RECEIVED PLASMA TRANSFUSION. History of Any Multi-Drug Resistant Organisms: VRE Date of last positivie culture/infection: 10/24/09 confirmed with infectious disease nurse on 08/18/16. MDRO Source:: URINE Past Surgical History: Ablation, Appendectomy, Cholecystectomy, Hernia Repair, Hysterectomy Additional Past Surgical History / Comment(s): Incisional hernia repair, laparoscopic lysis of adhesions in 1987, ganglion cyst removal of the left wrist, patent foramen ovale patch in 2006, RF ablation for back pain. Past Anesthesia/Blood Transfusion Reactions: No Reported Reaction Past Psychological History: Depression Additional Psychological History / Comment(s): CELEXA to help sleep at night per . PT HAS DIFFICULTY W/SPEECH . HAS TO LOOK AT DIETARY MENU TO ORDER CAN'T DO IT BY PHONE. Pt resides with her spouse. She uses a cane to ambulate. She also has a walker.cpap machine Spouse drives her to appointments. Spouse assists her with some ADLs when needed. Smoking Status: Never smoker Past Alcohol Use History: None Reported Past Drug Use History: None Reported Additional Drug Use History / Comment(s): Lives at home with her requires some assistance with ADLs at times - Past Family History Mother Family Medical History: Hypertension Additional Family Medical History / Comment(s): osteoporosis Father Family Medical History: Dementia, Diabetes Mellitus Medications and Allergies Home Medications Medication Instructions Recorded Confirmed Type Aspirin 81 mg PO DAILY@0900 11/08/13 11/24/20 History Baclofen [Lioresal] 10 mg PO DAILY@169911/08/13 11/24/20 History Citalopram Hydrobromide [CeleXA] 40 mg PO HS@2100 11/08/13 11/24/20 History Ferrous Sulfate [Feosol] 325 mg PO DAILY@17011/08/13 11/24/20 History Furosemide [Lasix] 40 mg PO BID@0900,1700 11/08/13 11/24/20 History Montelukast [Singulair] 10 mg PO DAILY@17011/08/13 11/24/20 History Pantoprazole Sodium [Protonix] 40 mg PO DAILY@0600 11/08/13 11/24/20 History Potassium Chloride 20 meq PO BID@0900,1700 11/08/13 11/24/20 History Fluticasone Nasal [place] [Flonase 1 spray EA NOSTRIL DAILY@0900 11/18/15 11/24/20 History Nasal [place]] Methylphenidate HCl [Ritalin] 20 mg PO TID@0900,1200,1500 11/18/15 11/24/20 History Pregabalin [Lyrica] 100 mg PO TID@0900,1700,2100 07/13/16 11/24/20 History Folic Acid 0.4 mg PO DAILY@0900 08/18/16 11/24/20 History Fexofenadine HCl 180 mg PO DAILY@209905/11/19 11/24/20 History Levothyroxine Sodium [Levoxyl] 75 mcg PO DAILY@0900 05/11/19 11/24/20 History Warfarin [Coumadin] 7.5 mg PO DAILY@1700 12/13/19 11/24/20 History Nitroglycerin Sl Tabs [Nitrostat] 0.4 mg SUBLINGUAL Q5M PRN 04/29/20 11/24/20 History fentaNYL 50MCG/HR PATCH [Duragesic 1 patch TRANSDERM Q72H 05/01/20 11/24/20 History 50MCG/HR] Cholecalciferol [Vitamin D3 (25 50 mcg PO DAILY@0900 11/24/20 11/24/20 History Mcg = 1000 Iu)] Allergies Allergy/AdvReac Type Severity Reaction Status Date / Time adhesive Allergy SKIN Verified 11/24/20 22:15 PEELING Physical Exam Vitals: Vital Signs Temp Pulse Pulse Resp BP BP Pulse Ox 11/25/20 12:50 97.6 F 56 L 18 123/69 93 L 11/25/20 05:03 97.6 F 49 L 16 90/53 97 11/25/20 01:18 98.0 F 50 L 18 106/61 95 11/25/20 01:00 42 L 18 11/25/20 00:00 46 L 18 11/24/20 23:00 43 L 18 11/24/20 20:17 97.7 F 77 18 126/74 96 Intake and Output 11/25/20 11/25/20 11/25/20 06:59 14:59 22:59 Intake Total 240 Balance 240 Intake: Oral 240 Other: # Voids 1 1 Weight 113.398 kg Results 11/26/20 06:14 11/26/20 06:14 Cardiac Enzymes 11/24/20 11/24/20 11/25/20 Range/Units 21:46 21:46 09:40 AST 31 32 (14-36) U/L Troponin I <0.012 (0.000-0.034) ng/mL Coagulation 11/25/20 Range/Units 09:40 PT 19.8 H (9.0-12.0) sec CBC 11/24/20 11/25/20 Range/Units 21:46 09:40 WBC 2.9 L 2.2 L (3.8-10.6) k/uL RBC 4.21 4.03 (3.80-5.40) m/uL Hgb 13.0 12.8 (11.4-16.0) gm/dL Hct 37.4 36.4 (34.0-46.0) % Plt Count 112 L 102 L (150-450) k/uL Comprehensive Metabolic Panel 11/24/20 11/25/20 Range/Units 21:46 09:40 Sodium 141 141 (137-145) mmol/L Potassium 3.8 3.8 (3.5-5.1) mmol/L Chloride 105 104 (98-107) mmol/L Carbon Dioxide 32 H 35 H (22-30) mmol/L BUN 26 H 25 H (7-17) mg/dL Creatinine 1.41 H 1.28 H (0.52-1.04) mg/dL Glucose 117 H 123 H (74-99) mg/dL Calcium 9.1 8.9 (8.4-10.2) mg/dL AST 31 32 (14-36) U/L ALT 20 21 (4-34) U/L Alkaline Phosphatase 71 64 (38-126) U/L Total Protein 5.7 L 5.6 L (6.3-8.2) g/dL Albumin 3.5 3.4 L (3.5-5.0) g/dL Current Medications Generic Name Dose Route Start Last Admin Trade Name Freq PRN Reason Stop Dose Admin Aspirin 81 mg 11/26/20 09:00 Aspirin 81 Mg PO DAILY@0900 [facility] Baclofen 10 mg 11/25/20 17:00 Baclofen 10 Mg Tab PO DAILY@1700 [facility] Cholecalciferol 50 mcg 11/26/20 09:00 Cholecalciferol 25 Mcg (1000 Iu) Tablet PO DAILY@0900 [facility] Citalopram Hydrobromide 40 mg 11/25/20 21:00 Citalopram Hydrobromide 20 Mg Tab PO HS@2100 [facility] Fentanyl 1 patch 11/27/20 09:00 Fentanyl 50mcg/Hr Patch TRANSDERM Q72H [facility] Protocol Ferrous Sulfate 325 mg 11/25/20 17:00 Ferrous Sulfate 325 Mg Tab PO DAILY@1700 [facility] Fluticasone Propionate 1 spray 11/26/20 09:00 Fluticasone 50mcg/[place] Nasal 16gm EA NOSTRIL DAILY@0900 [facility] Folic Acid 0.5 mg 11/26/20 09:00 Folic Acid 1 Mg Tab PO DAILY@0900 [facility] Furosemide 40 mg 11/25/20 17:00 Furosemide 40 Mg Tab PO BID@0900,1700 [facility] Insulin Aspart 0 unit 11/25/20 07:30 11/25/20 12:54 Insulin Aspart (Novolog) 100 Unit/Ml Vial SQ 100 unit ACHS [facility] Administration Protocol Levothyroxine Sodium 88 mcg 11/26/20 06:30 Levothyroxine 88 [place] 0630 [facility] Loratadine 10 mg 11/25/20 21:00 Loratadine 10 Mg Tab PO DAILY@2100 [facility] Methylphenidate HCl 20 mg 11/25/20 12:00 11/25/20 15:03 Methylphenidate Hcl 10 Mg Tab PO 20 mg TID@0900,1200,1500 [facility] Administration Miscellaneous Information 0 each 11/25/20 09:26 Warfarin Per Pharmacy MISCELLANE DIRECTED PRN ANTICOAG Montelukast Sodium 10 mg 11/25/20 17:00 Montelukast 10 Mg Tab PO DAILY@1700 [facility] Naloxone HCl 0.2 mg 11/24/20 22:54 Naloxone 0.4 Mg/Ml 1 Ml Vial IV Q2M PRN Opioid Reversal Nitroglycerin 0.4 mg 11/25/20 09:06 Nitroglycerin Sl Tabs 0.4 Mg Tab SUBLINGUAL Q5M PRN Chest Pain Pantoprazole Sodium 40 mg 11/26/20 06:00 Pantoprazole 40 Mg Tablet PO DAILY@0600 [facility] Potassium Chloride 20 meq 11/25/20 17:00 Potassium Chloride Er 20 Meq Tab.Er PO BID@0900,1700 [facility] Pregabalin 100 mg 11/25/20 17:00 Pregabalin 100 Mg Cap PO TID@0900,1700,2100 [facility] Warfarin Sodium 7.5 mg 11/25/20 17:00 Warfarin 7.5 Mg Tab PO DAILY@1700 [facility] Protocol Intake and Output 11/25/20 11/25/20 11/25/20 06:59 14:59 22:59 Intake Total 240 Balance 240 Intake: Oral 240 Other: # Voids 1 1 Weight 113.398 kg 11/25/20 09:40 11/25/20 09:40
[2020-11-26 15:19] LABS: Hemoglobin A1C 5.8 % (4.0-6.0)
[2020-11-26] MEDS ORDERED: methylPREDNISolone SOD SUCCI 125 MG/2 ML VIAL IV SCH (16:45)
[2020-11-26] MEDS: MONTELUKAST 10 MG TAB PO SCH (17:27)
[2020-11-26] MEDS: BACLOFEN 10 MG TAB PO SCH (17:27)
[2020-11-26] MEDS: FERROUS SULFATE 325 MG TAB PO SCH (17:27)
[2020-11-26] MEDS: WARFARIN 7.5 MG TAB PO SCH (17:29)
[2020-11-26 17:33] LABS: Glucose,Whole Blood 136 mg/dL (75-99)
[2020-11-26 19:51] LABS: Glucose,Whole Blood 227 mg/dL (75-99)
[2020-11-26] MEDS: LORATADINE 10 MG TAB PO SCH (20:10)
[2020-11-26] MEDS: CITALOPRAM HYDROBROMIDE 20 MG TAB PO SCH (20:10)
[2020-11-26 21:19] LABS: Anti-Smith Ab Interp NEGATIVE (NEGATIVE); JO-1 IgG Antibody <0.2 AI; Scleroderma SC-70 Ab <0.2 AI
[2020-11-26 21:32] LABS: Anti-Smith Ab Interp NEGATIVE (NEGATIVE)
[2020-11-27 04:13] LABS: C Reactive Protein <0.4 mg/dL (0.0-0.8); Creatine Kinase 113 U/L (26-186); Rheumatoid Factor, Qnt 5 IU/mL (0-15)
[2020-11-27] MEDS: LEVOTHYROXINE 88 MCG TAB PO SCH (05:42)
[2020-11-27] MEDS: PANTOPRAZOLE 40 MG TABLET PO SCH (05:42)
[2020-11-27 05:49] LABS: Anti-DNA, DS unit <1.0 IU/mL; DNA Double-Stranded NEGATIVE (NEGATIVE)
[2020-11-27 07:05] LABS: Glucose,Whole Blood 200 mg/dL (75-99)
[2020-11-27 07:20] LABS: Basophils % (A) 0 %; Eosinophils % (A) 0 %; HCT 37.9 % (34.0-46.0); HGB 13.1 gm/dL (11.4-16.0); Lymphocytes # (A) 0.4 k/uL (1.0-4.8); Lymphocytes % (A) 9 %; MCHC 34.5 g/dL (31.0-37.0); MCV 89.8 fL (80.0-100.0); Mean Platelet Volume 10.9; Monocytes % (A) 1 %; Neutrophils # (A) 4.2 k/uL (1.3-7.7); Neutrophils % (A) 90 %; Platelet Count 114 k/uL (150-450); RBC 4.23 m/uL (3.80-5.40); WBC 4.7 k/uL (3.8-10.6)
[2020-11-27 07:28] LABS: INR 2.9 (<1.2); Prothrombin Time 27.6 sec (9.0-12.0)
[2020-11-27] MEDS: INSULIN ASPART (NovoLOG) 100 UNIT/ML VIAL SQ SCH ×4 (09:35→21:25)
[2020-11-27] MEDS: ASPIRIN 81 MG PO SCH (09:36)
[2020-11-27] MEDS: POTASSIUM CHLORIDE ER 20 MEQ TAB.ER PO SCH ×2 (09:36→18:16)
[2020-11-27] MEDS: METHYLPHENIDATE HCL 10 MG TAB PO SCH ×3 (09:36→15:11)
[2020-11-27] MEDS: CHOLECALCIFEROL 25 MCG (1000 IU) TABLET PO SCH (09:36)
[2020-11-27] MEDS: PREGABALIN 100 MG CAP PO SCH ×3 (09:36→21:24)
[2020-11-27] MEDS: FOLIC ACID 1 MG TAB PO SCH (09:37)
[2020-11-27] MEDS: FLUTICASONE 50MCG/SPRAY NASAL 16GM EA NOSTRIL SCH (09:37)
[2020-11-27] MEDS: FUROSEMIDE 40 MG TAB PO SCH ×2 (09:37→18:16)
[2020-11-27 10:02] LABS: APTT 55 Sec(s) (<43); APTT 1:1 Mix 40 Sec(s) (<43); DRVVT 1:1 Mix 38 Sec(s) (<44); Dilute Russell Viper Venom 57 Sec(s) (<44)
[2020-11-27 11:29] LABS: Glucose,Whole Blood 153 mg/dL (75-99)
[2020-11-27 14:08] LABS: African American GFR (CKD) 54.2 (60.0-200.0); Albumin/Globulin Ratio 2.11 (1.60-3.17); Anion Gap 9.7 mmol/L (4.00-12.00); BUN/Creat Ratio 22.5 Ratio (12.00-20.00); Calcium 8.9 mg/dL (8.7-10.3); Carbon Dioxide 27.3 mmol/L (21.6-31.8); Globulin 1.9 g/dL (1.6-3.3); Non-African American GFR(CKD) 46.7 (60.0-200.0); Potassium 4.4 mmol/L (3.5-5.5); Total Bilirubin 0.5 mg/dL (0.3-1.2); Total Protein 5.9 g/dL (6.2-8.2)
[2020-11-27 15:23] LABS: C-ANCA <1:20 Titer (<1:20)
[2020-11-27] MEDS: ACETAMINOPHEN TAB 500 MG TAB PO PRN (16:22)
--- NOTE | 2020-11-27 17:02 | P.PN ---
Subjective Progress Note Date: 11/27/20 The patient is seen at bedside and feel she is doing better today compared to initial presentation. She feels the pain is improving and feels it is coming down. She said her pain starts in lower extremities that going up but has hard time expressiving herself. I spoke with her Neel via phone. Per the he said he thinks she has numbness that start in her lower extremities that travel up but he has hard time understanding exactly. Per she has multiple episode of this and get IV steroid then feels better. He said she had Lumbar puncture in the past (possibly 2006) at [facility] but were not told of result. She follows-up with Dr. Elizabeth team and being told she had MS. Objective - Vital Signs Vital signs: Vital Signs Temp 97.7 F 11/27/20 12:47 Pulse 50 L 11/27/20 12:47 Resp 16 11/27/20 12:47 BP 101/64 11/27/20 12:47 Pulse Ox 90 L 11/27/20 12:47 Intake & Output 11/26/20 11/27/20 11/27/20 18:59 06:59 18:59 Other: Voiding Method Bedside Commode Bedside Commode Diaper Incontinent # Voids 4 2 - Exam GENERAL: The patient is lying in bed and is in mild acute distress. INTEGUMENTARY: Has red rash over the bilateral cheek (right >left) and rash over the right side of eyebrow and feels warm to touch MUSCULOSKELETAL: Has tender to touch throughout all extremities and joints of upper and lower extremities. NEUROLOGICAL: Higher mental function: The patient is awake, alert, oriented to self. She stated she was in hospital with options. Patient is following commands with verbal and sometimes with pontomine. She has paraphasic errors and grammatical errors. She has some preservation . Has signifiant expressive aphasia. She has some word salading. No neglect. Cranial nerves: The pupils are round, equal and reactive to light. Visual lazar are full to confrontation throughout. Extraocular movement is intact no nystagmus is noted. Facial sensation is normal to touch throughout. Mild right nasolabial flattening but symetrical to smile. Hearing is normal bilaterally to hand rub. Tongue is midline and moved [id number] without any difficulty. No dysarthria is noted. Shoulder shrug is normal (antigravity) bilaterally. Motor: Gait is deferred because of her pain. The strength is moving all extremities above gravity without drift (could not assess individual muscle because of her diffuse pain). No spontaneous movement noted. Sensation: Could not assess especially since tender to touch. Reflexes (right/left): Could not assess because of pain. Plantars Could not assess. - Labs CBC & Chem 7: 11/27/20 06:40 11/27/20 06:40 Labs: Abnormal Lab Results - Last 24 Hours (Table) 11/26/20 11/26/20 11/26/20 Range/Units 14:08 17:29 19:50 Plt Count (150-450) k/uL Lymphocytes # (1.0-4.8) k/uL PT (9.0-12.0) sec INR (<1.2) Lupus Anticoag aPTT 55 H (<43) Sec(s) Dil Bryan Viper Venom 57 H (<44) Sec(s) Est GFR (CKD-EPI)AfAm (60.0-200.0) Est GFR (CKD-EPI)NonAf (60.0-200.0) BUN/Creatinine Ratio (12.00-20.00) Ratio Glucose (70-110) mg/dL POC Glucose (mg/dL) 136 H 227 H (75-99) mg/dL Total Protein (6.2-8.2) g/dL 11/27/20 11/27/20 11/27/20 Range/Units 06:40 06:40 06:40 Plt Count 114 L (150-450) k/uL Lymphocytes # 0.4 L (1.0-4.8) k/uL PT 27.6 H (9.0-12.0) sec INR 2.9 H (<1.2) Lupus Anticoag aPTT (<43) Sec(s) Dil Bryan Viper Venom (<44) Sec(s) Est GFR (CKD-EPI)AfAm 54.2 L (60.0-200.0) Est GFR (CKD-EPI)NonAf 46.7 L (60.0-200.0) BUN/Creatinine Ratio 22.50 H (12.00-20.00) Ratio Glucose 225 H (70-110) mg/dL POC Glucose (mg/dL) (75-99) mg/dL Total Protein 5.9 L (6.2-8.2) g/dL 11/27/20 11/27/20 Range/Units 07:04 11:27 Plt Count (150-450) k/uL Lymphocytes # (1.0-4.8) k/uL PT (9.0-12.0) sec INR (<1.2) Lupus Anticoag aPTT (<43) Sec(s) Dil Bryan Viper Venom (<44) Sec(s) Est GFR (CKD-EPI)AfAm (60.0-200.0) Est GFR (CKD-EPI)NonAf (60.0-200.0) BUN/Creatinine Ratio (12.00-20.00) Ratio Glucose (70-110) mg/dL POC Glucose (mg/dL) 200 H 153 H (75-99) mg/dL Total Protein (6.2-8.2) g/dL Assessment and Plan Assessment: * Generalized pain throughout entire upper and lower extremity (per he think she complains of numbness that start in the lower extremity that ascends up). She has rash over the bilateral cheek (seemed like butterfly rash) and rash over the right eyebrow. Initially my concern was connective tissue disease (possibly Lupus because of rash) but all work-up is coming back negative. Because of numbness ascending up: Rule out Chronic Inflammtory Demy linating Polyneuropathy (CIDP) especially with multiple episode of similar presentation. I am not convinced she has MS (upon reviewing imaging) but per she is diagnosed with MS. * History of left MCA stroke in 2007 with residual significant expressive aphasia * Diagnosis of relapsing remitting multiple sclerosis diagnosed by her outside neurologist * Hypertension * Elevated TSH (4.92) * Acute on Chronic kidney insuffiency * Urinary incontinence * Hyperlipidemia * Obstructive sleep apnea * DVT on Coumadin * Fibromyalgia Plan: * I personally saw the patient last on 05/08/2020 and the I felt the patient's altered mental status was likely due to toxic metabolic encephalopathy as well as a septic from the urinary tract infection. * Regarding her diagnosis of multiple sclerosis I reviewed the MRI of the brain on 04/29/2018 our system and there is no lesion supporting multiple sclerosis. As well as Dr. Teixeira's note upon seeing her in the past he did he was not convinced the patient had evidence of multiple sclerosis. She had MRI of the cervical spine and 09/18/2017 which showed vague area of increased signal within the cervical spine cord at the C2-C3 and C3-C4. The monitoring difficult to exclude. * CT of the head is reported as there is mild diffuse age-related cerebral atrophy and chronic small vessel ischemic change along significant old the left-sided infarct old redemonstrated. No signal change from the most recent prior CT. I personally reviewed the CT of the head and there is no intraparenchymal bleed. * CT cervical, thoracic and lumbar region it is reported as no acute findings are evident. In the body of the port it is mentioned that the patient has persistent slight S-shaped scoliotic curvature. Moderate to severe disc space narrowing and the C5 to C6 and C6 to C7 levels. Moderate to severe disc space narrowing with that Q room disc phenomenon at L5-S1 level. * MRI the brain w/ and w/o: As reported as old large left middle cerebral artery distribution infarct without change. No acute intracranial abnormality. * MRI Cervical spine w/ and w/o and cervical spine with and without is reported as frontal changes in the cervical spine with multilevels small posterior disc herniation. No significant spinal stenosis at. No change. * MRI of the lumbar spine is reported as mild degenerative disc changes. No spinal stenosis. Small posterior disc bulging and herniation at the L5-S1. No significant change compared to old exam. I personally reviewed the MRI images and I am still not convinced that the patient has multiple sclerosis radiographically. * TSH is 4.92 which is elevated and free T4 is 1.13 (normal). * NENA: negative, [id number] DNA <1.0, cANCA and pANC <1:20, creatinine kinase 113 (normal), WILLIAM, Terrie 1 antibody negative, rheumatoid factor 5 (normal), ACTUARIAL ASSISTANT antibody negative, anti-Lou antibody negative, lupus anticoagulant, SSA and SSB antibody negative, ACTUARIAL ASSISTANT antibody negative. ESR 17 and CRP <0.4 (normal), anti-PM/Scl 100 ab negative * Rheumatology team is consulted. Will defer steroids management to primary team (currently on IV SOlu-Medrol) 250mg bid. * Recommend Lumbar Puncture. Currently she is on coumadin. We will hold off for now for lumbar puncture and will speak with primary regarding the use of it (I spoke with the son and he is in agreement of getting it done). * Aspirin 81 mg is continued. Recommend Lipitor 10 mg is suspicion that since the patient had elevated liver function test in the past if she cannot tolerate any statins then we'll hold off on any statins. * Consulted physical therapy and occupational therapy. * Continue Q4 hour neuro checks and continous cardiac monitoring. * Vitamin B12 is 403 on 05/04/2020 which is normal and does not need to be repeated. Also red blood cell folate is 829 which is above the normal age was considered normal on 05/2020 and does not need to be repeated. * Orthopedic team evaluated the patient for spondylosis and no intervention. * We'll defer the rest of the medical management to the primary team. Upon discharge the patient needs to follow-up with neurology (Dr. Elizabeth's team) as outpatient within 1-2 weeks. The plan is discussed with the (Neel) via phone. Kannan Reaves M.D. Neuro-hospitalist Time with Patient: Less than 30
[2020-11-27 17:31] LABS: Glucose,Whole Blood 164 mg/dL (75-99)
[2020-11-27] MEDS: FERROUS SULFATE 325 MG TAB PO SCH (18:16)
[2020-11-27] MEDS: MONTELUKAST 10 MG TAB PO SCH (18:16)
[2020-11-27] MEDS: WARFARIN 7.5 MG TAB PO SCH (18:16)
[2020-11-27] MEDS: BACLOFEN 10 MG TAB PO SCH (18:17)
[2020-11-27 20:32] LABS: Glucose,Whole Blood 262 mg/dL (75-99)
[2020-11-27] MEDS: CITALOPRAM HYDROBROMIDE 20 MG TAB PO SCH (21:24)
[2020-11-27] MEDS: LORATADINE 10 MG TAB PO SCH (21:24)
[2020-11-28] MEDS: PANTOPRAZOLE 40 MG TABLET PO SCH (05:53)
[2020-11-28] MEDS: LEVOTHYROXINE 88 MCG TAB PO SCH (05:53)
[2020-11-28 07:05] LABS: Glucose,Whole Blood 167 mg/dL (75-99)
[2020-11-28 07:16] LABS: INR 3.6 (<1.2); Prothrombin Time 34.8 sec (9.0-12.0)
[2020-11-28] MEDS: INSULIN ASPART (NovoLOG) 100 UNIT/ML VIAL SQ SCH ×4 (08:52→21:44)
[2020-11-28] MEDS: ASPIRIN 81 MG PO SCH (08:53)
[2020-11-28] MEDS: CHOLECALCIFEROL 25 MCG (1000 IU) TABLET PO SCH (08:53)
[2020-11-28] MEDS: FOLIC ACID 1 MG TAB PO SCH (08:53)
[2020-11-28] MEDS: FUROSEMIDE 40 MG TAB PO SCH ×2 (08:53→16:11)
[2020-11-28] MEDS: POTASSIUM CHLORIDE ER 20 MEQ TAB.ER PO SCH ×2 (08:54→16:11)
[2020-11-28] MEDS: METHYLPHENIDATE HCL 10 MG TAB PO SCH ×3 (08:54→16:11)
[2020-11-28] MEDS: FLUTICASONE 50MCG/SPRAY NASAL 16GM EA NOSTRIL SCH (08:54)
[2020-11-28] MEDS: PREGABALIN 100 MG CAP PO SCH ×3 (08:54→21:26)
[2020-11-28] MEDS: ACETAMINOPHEN TAB 500 MG TAB PO PRN (08:57)
[2020-11-28 11:26] LABS: Glucose,Whole Blood 210 mg/dL (75-99)
--- NOTE | 2020-11-28 11:46 | P.PN ---
Subjective Progress Note Date: 11/27/20 This is a 65-year-old female patient who presented to the ER with complaints of increased weakness and numbness over the past week patient does have past medical history of MS and stroke expressive aphasia. Patient follows normally with Dr. Downing. Additional medical history includes fibromyalgia, chest pain, osteoarthritis, pulmonary embolism and thyroid disorder. Chest x-ray was performed showing no active cardiopulmonary disease. No change. COVID-19 negative. UA negative. TSH 4.920 will increase Synthroid to 88 mg. At this time neurology services will be consulted. Cardiology services also consulted for bradycardia. Home medications resumed. Patient denies any chest pain or shortness of breath. Patient denies nausea vomiting or diarrhea. Patient denies any urinary burning or frequency On 11/26/2020 patient is alert and oriented 3. Patient is currently sitting up on side about working with physical therapy. Head CT and spinal MRIs ordered per neurology services. Orthopedic service is consulted for spinal spondylosis. At this time patient denies chest pain or shortness breath. Patient denies nausea vomiting or diarrhea. Patient denies urinary burning or frequency. Repeat labs have been ordered. Awaiting neurology input regards to steroids On 11/27/2020 Patient was seen and examined on the medical floor, he is alert and oriented x 3 in no distress, he denies any complaints there is no fever or chills no headache or dizziness no chest pain no shortness of breath no palpitation no cough no nausea or vomiting no abdominal pain no diarrhea no blood in the stools no burning with urination no frequency or urgency and no hematuria, she is complaining of severe weakness from the neck down, she is complaining of generalized body ache, otherwise no specific complaints Objective - Vital Signs Vital signs: Vital Signs Temp 98.2 F 11/27/20 05:00 Pulse 51 L 11/27/20 05:00 Resp 18 11/27/20 05:00 BP 103/65 11/27/20 05:00 Pulse Ox 93 L 11/27/20 05:00 Intake & Output 11/26/20 11/27/20 11/27/20 18:59 06:59 18:59 Other: Voiding Method Bedside Commode Bedside Commode Diaper Incontinent # Voids 4 2 - Exam Head normocephalic Neck supple Lungs clear to auscultation bilaterally no wheezing or crackles Heart regular rate and rhythm S1-S2, no rub or gallop Abdomen is soft nontender nondistended positive bowel sounds no hepatosplenomegaly Extremities no edema Neuro alert and orientated to 3. Expressive aphasia - Labs CBC & Chem 7: 11/27/20 06:40 11/27/20 06:40 Labs: Abnormal Lab Results - Last 24 Hours (Table) 11/26/20 11/26/20 11/26/20 Range/Units 06:14 06:14 12:03 Plt Count (150-450) k/uL Lymphocytes # (1.0-4.8) k/uL PT 22.4 H (9.9-11.9) sec INR 2.16 H (0.90-1.11) Est GFR (CKD-EPI)AfAm 54.2 L (60.0-200.0) Est GFR (CKD-EPI)NonAf 46.7 L (60.0-200.0) BUN/Creatinine Ratio 21.67 H (12.00-20.00) Ratio Glucose 124 H (70-110) mg/dL POC Glucose (mg/dL) 120 H (75-99) mg/dL Total Protein 5.6 L (6.2-8.2) g/dL Albumin 3.70 L (3.80-4.90) g/dL 11/26/20 11/26/20 11/27/20 Range/Units 17:29 19:50 06:40 Plt Count (150-450) k/uL Lymphocytes # (1.0-4.8) k/uL PT 27.6 H (9.9-11.9) sec INR 2.9 H (0.90-1.11) Est GFR (CKD-EPI)AfAm (60.0-200.0) Est GFR (CKD-EPI)NonAf (60.0-200.0) BUN/Creatinine Ratio (12.00-20.00) Ratio Glucose (70-110) mg/dL POC Glucose (mg/dL) 136 H 227 H (75-99) mg/dL Total Protein (6.2-8.2) g/dL Albumin (3.80-4.90) g/dL 11/27/20 11/27/20 Range/Units 06:40 07:04 Plt Count 114 L (150-450) k/uL Lymphocytes # 0.4 L (1.0-4.8) k/uL PT (9.9-11.9) sec INR (0.90-1.11) Est GFR (CKD-EPI)AfAm (60.0-200.0) Est GFR (CKD-EPI)NonAf (60.0-200.0) BUN/Creatinine Ratio (12.00-20.00) Ratio Glucose (70-110) mg/dL POC Glucose (mg/dL) 200 H (75-99) mg/dL Total Protein (6.2-8.2) g/dL Albumin (3.80-4.90) g/dL Assessment and Plan Assessment: 1. Generalized weakness and increased numbness likely secondary to MS exacerbation. Neurology services have been consulted. Patient started on IV steroids 2. Bradycardia. Cardiology services have been consulted 3. Hypothyroidism. TSH 4.92. Synthroid increased to 88 mics 4. History of pulmonary embolism. Patient maintained on Coumadin. 5. History of fibromyalgia 6. History of CVA expressive aphasia deficit 7. Diabetes mellitus type 2 8. Spinal spondylosis. Patient was evaluated by with orthopedic services. Per orthopedic services symptomatic treatment of back or neck pain reasonable. DVT prophylaxis Coumadin. GI prophylaxis Protonix cardiology and neurology service is consulted
[2020-11-28] MEDS: MONTELUKAST 10 MG TAB PO SCH (16:11)
[2020-11-28] MEDS: FERROUS SULFATE 325 MG TAB PO SCH (16:11)
[2020-11-28] MEDS: BACLOFEN 10 MG TAB PO SCH (16:35)
--- NOTE | 2020-11-28 16:39 | P.PN ---
Subjective Progress Note Date: 11/28/20 The patient is seen at bedside and she stated she is doing better that her initial presentation but stated it will take time until she feel back to normal. She has severe expressive aphasia but what it seems she was saying is that her pain starts in the lower extremities and ascends up and with steroids gets much relieve. She said that is what I was waiting for is start of steroids and that is what helped in past. Objective - Vital Signs Vital signs: Vital Signs Temp 97.4 F L 11/28/20 11:08 Pulse 54 L 11/28/20 11:08 Resp 16 11/28/20 11:08 BP 121/58 11/28/20 11:08 Pulse Ox 95 11/28/20 11:08 Intake & Output 11/27/20 11/28/20 11/28/20 18:59 06:59 18:59 Intake Total 200 1060 Balance 200 1060 Intake: Intake, IV Titration 200 100 Amount methylPREDNISolone SOD 200 100 SUCC 250 mg In Sodium Chloride 0.9% 100 ml @ 200 mls/hr IVPB 0900,2100 [facility] Rx#:[id number] Oral 960 Other: # Voids 1 2 1 - Exam GENERAL: The patient is lying in bed and is in mild acute distress. INTEGUMENTARY: Has red rash over the bilateral cheek (right >left) and rash over the right side of eyebrow and feels warm to touch MUSCULOSKELETAL: Has tender to touch throughout all extremities and joints of upper and lower extremities. NEUROLOGICAL: Higher mental function: The patient is awake, alert, oriented to self. She stated she was in hospital with options. Patient is following commands with verbal and sometimes with pontomine. She has paraphasic errors and grammatical errors. She has some preservation . Has signifiant expressive aphasia. She has some word salading. No neglect. Cranial nerves: The pupils are round, equal and reactive to light. Visual lazar are full to confrontation throughout. Extraocular movement is intact no nystagmus is noted. Facial sensation is normal to touch throughout. Mild right nasolabial flattening but symetrical to smile. Hearing is normal bilaterally to hand rub. Tongue is midline and moved [id number] without any difficulty. No dysarthria is noted. Shoulder shrug is normal (antigravity) bilaterally. Motor: Gait is deferred because of her pain. The strength is moving all extremities above gravity without drift (could not assess individual muscle bec ause of her diffuse pain). No spontaneous movement noted. Sensation: Could not assess especially since tender to touch. Reflexes (right/left): Could not assess because of pain. Plantars Could not assess. - Labs CBC & Chem 7: 11/27/20 06:40 11/27/20 06:40 Labs: Abnormal Lab Results - Last 24 Hours (Table) 11/27/20 11/27/20 11/28/20 Range/Units 17:29 20:31 06:32 PT 34.8 H (9.0-12.0) sec INR 3.6 H (<1.2) POC Glucose (mg/dL) 164 H 262 H (75-99) mg/dL 11/28/20 11/28/20 Range/Units 07:03 11:10 PT (9.0-12.0) sec INR (<1.2) POC Glucose (mg/dL) 167 H 210 H (75-99) mg/dL Assessment and Plan Assessment: * Generalized pain throughout entire upper and lower extremity (per he think she complains of numbness that start in the lower extremity that ascends up). She has rash over the bilateral cheek (seemed like butterfly rash) and rash over the right eyebrow. Initially my concern was connective tissue di sease (possibly Lupus because of rash) but all work-up is coming back negative. Because of numbness ascending up: Rule out Chronic Inflammtory Demylinating Polyneuropathy (CIDP) especially with multiple episode of similar presentation. I am not convinced she has MS (upon reviewing imaging but can not be exclused) but per she is diagnosed with MS. * History of left MCA stroke in 2006 with residual significant expressive aphasia * Diagnosis of relapsing remitting multiple sclerosis diagnosed by her outside neurologist * Supratherapeutic INR (3.6) * Hypertension * Elevated TSH (4.92) * Acute on Chronic kidney insuffiency * Urinary incontinence * Hyperlipidemia * Obstructive sleep apnea * DVT on Coumadin * Fibromyalgia Plan: * I personally saw the patient last on 05/08/2020 and the I felt the patient's altered mental status was likely due to toxic metabolic encephalopathy as well as a septic from the urinary tract infection. * Regarding her diagnosis of multiple sclerosis I reviewed the MRI of the brain on 04/29/2018 our system and there is no lesion supporting multiple sclerosis. As well as Dr. Teixeira's note upon seeing her in the past he did he was not convinced the patient had evidence of multiple sclerosis. She had MRI of the cervical spine and 09/18/2017 which showed vague area of increased signal within the cervical spine cord at the C2-C3 and C3-C4. The monitoring difficult to exclude. * CT of the head is reported as there is mild diffuse age-related cerebral atrophy and chronic small vessel ischemic change along significant old the left-sided infarct old redemonstrated. No signal change from the most recent prior CT. I personally reviewed the CT of the head and there is no intraparenchymal bleed. * CT cervical, thoracic and lumbar region it is reported as no acute findings are evident. In the body of the port it is mentioned that the patient has persistent slight S-shaped scoliotic curvature. Moderate to severe disc space narrowing and the C5 to C6 and C6 to C7 levels. Moderate to severe disc space narrowing with that Q room disc phenomenon at L5-S1 level. * MRI the brain w/ and w/o: As reported as old large left middle cerebral artery distribution infarct without change. No acute intracranial abnormality. * MRI Cervical spine w/ and w/o and cervical spine with and without is reported as frontal changes in the cervical spine with multilevels small posterior disc herniation. No significant spinal stenosis at. No change. * MRI of the lumbar spine is reported as mild degenerative disc changes. No spinal stenosis. Small posterior disc bulging and herniation at the L5-S1. No significant change compared to old exam. I personally reviewed the MRI images and I am still not convinced that the patient has multiple sclerosis radiographically. * TSH is 4.92 which is elevated and free T4 is 1.13 (normal). * NENA: negative, [id number] DNA <1.0, cANCA and pANC <1:20, creatinine kinase 113 (normal), WILLIAM, Terrie 1 antibody negative, rheumatoid factor 5 (normal), [employer] antibody negative, anti-Lou antibody negative, lupus anticoagulant, SSA and SSB antibody negative, [employer] antibody negative. ESR 17 and CRP <0.4 (normal), anti-PM/Scl 100 ab negative. Patient lupus anticoagulant PTT 55 which is elevated, patient delusional Bryan's viper venom is 57 which is elevated. Lupus anticoagulant is negative. * Rheumatology team is consulted. Will defer steroids management to primary team (currently on IV [id number] every 12 hours. Initial dose is on 11/26/2020). * Recommend Lumbar Puncture. Currently she is on coumadin. We will hold off for now for lumbar puncture and possibly by Monday or Monday can consider Lumbar puncture. Patient is adamant on getting IV steroid since has helped in past. (I spoke with the patinet's and he is in agreement of getting lumbar puncture once stable). * Aspirin 81 mg is continued. Recommend Lipitor 10 mg is suspicion that since the patient had elevated liver function test in the past if she cannot tolerate any statins then we'll hold off on any statins. * Consulted physical therapy and occupational therapy. * Continue Q4 hour neuro checks and continous cardiac monitoring. * Vitamin B12 is 403 on 05/04/2020 which is normal and does not need to be repeated. Also red blood cell folate is 829 which is above the normal age was considered normal on 05/2020 and does not need to be repeated. * Orthopedic team evaluated the patient for spondylosis and no intervention. * We'll defer the rest of the medical management to the primary team. Upon discharge the patient needs to follow-up with neurology (Dr. Elizabeth's team) as outpatient within 1-2 weeks. The plan is discussed with the patient primary team and her nurse. Kannan Reaves M.D. Neuro-hospitalist Time with Patient: Less than 30
--- NOTE | 2020-11-28 16:46 | P.PN ---
Subjective Progress Note Date: 11/28/20 This is a 65-year-old female patient who presented to the ER with complaints of increased weakness and numbness over the past week patient does have past medical history of MS and stroke expressive aphasia. Patient follows normally with Dr. Downing. Additional medical history includes fibromyalgia, chest pain, osteoarthritis, pulmonary embolism and thyroid disorder. Chest x-ray was performed showing no active cardiopulmonary disease. No change. COVID-19 negative. UA negative. TSH 4.920 will increase Synthroid to 88 mg. At this time neurology services will be consulted. Cardiology services also consulted for bradycardia. Home medications resumed. Patient denies any chest pain or shortness of breath. Patient denies nausea vomiting or diarrhea. Patient denies any urinary burning or frequency On 11/26/2020 patient is alert and oriented 3. Patient is currently sitting up on side about working with physical therapy. Head CT and spinal MRIs ordered per neurology services. Orthopedic service is consulted for spinal spondylosis. At this time patient denies chest pain or shortness breath. Patient denies nausea vomiting or diarrhea. Patient denies urinary burning or frequency. Repeat labs have been ordered. Awaiting neurology input regards to steroids On 11/27/2020 Patient was seen and examined on the medical floor, he is alert and oriented x 3 in no distress, he denies any complaints there is no fever or chills no headache or dizziness no chest pain no shortness of breath no palpitation no cough no nausea or vomiting no abdominal pain no diarrhea no blood in the stools no burning with urination no frequency or urgency and no hematuria, she is complaining of severe weakness from the neck down, she is complaining of generalized body ache, otherwise no specific complaints On 11/28/2020 Patient was seen and examined on the medical floor, he is alert and oriented x 3 in no distress, he denies any complaints there is no fever or chills no headache or dizziness no chest pain no shortness of breath no palpitation no cough no nausea or vomiting no abdominal pain no diarrhea no blood in the stools no burning with urination no frequency or urgency and no hematuria, patient is still complaining of generalized weakness and generalized body aches without any complaint, she stated that she is improving with IV steroids will continue with current regimen Objective - Vital Signs Vital signs: Vital Signs Temp 97.4 F L 11/28/20 11:08 Pulse 54 L 11/28/20 11:08 Resp 16 11/28/20 11:08 BP 121/58 11/28/20 11:08 Pulse Ox 95 11/28/20 11:08 Intake & Output 11/27/20 11/28/20 11/28/20 18:59 06:59 18:59 Intake Total 200 1060 Balance 200 1060 Intake: Intake, IV Titration 200 100 Amount methylPREDNISolone SOD 200 100 SUCC 250 mg In Sodium Chloride 0.9% 100 ml @ 200 mls/hr IVPB 0900,2100 [facility] Rx#:[id number] Oral 960 Other: # Voids 1 2 1 - Exam Head normocephalic Neck supple Lungs clear to auscultation bilaterally no wheezing or crackles Heart regular rate and rhythm S1-S2, no rub or gallop Abdomen is soft nontender nondistended positive bowel sounds no hepato splenomegaly Extremities no edema Neuro alert and orientated to 3. Expressive aphasia - Labs CBC & Chem 7: 11/27/20 06:40 11/27/20 06:40 Labs: Abnormal Lab Results - Last 24 Hours (Table) 11/27/20 11/27/20 11/28/20 Range/Units 17:29 20:31 06:32 PT 34.8 H (9.0-12.0) sec INR 3.6 H (<1.2) POC Glucose (mg/dL) 164 H 262 H (75-99) mg/dL 11/28/20 11/28/20 Range/Units 07:03 11:10 PT (9.0-12.0) sec INR (<1.2) POC Glucose (mg/dL) 167 H 210 H (75-99) mg/dL Assessment and Plan Assessment: 1. Generalized weakness and increased numbness likely secondary to MS exacerbation. Neurology services have been consulted. Patient started on IV steroids 2. Bradycardia. Cardiology services have been consulted 3. Hypothyroidism. TSH 4.92. Synthroid increased to 88 mics 4. History of pulmonary embolism. Patient maintained on Coumadin. 5. History of fibromyalgia 6. History of CVA expressive aphasia deficit 7. Diabetes mellitus type 2 8. Spinal spondylosis. Patient was evaluated by with orthopedic services. Per orthopedic services symptomatic treatment of back or neck pain reasonable. DVT prophylaxis Coumadin. GI prophylaxis Protonix cardiology and neurology service is consulted
[2020-11-28 16:57] LABS: Glucose,Whole Blood 127 mg/dL (75-99)
[2020-11-28] MEDS ORDERED: WARFARIN 0.5 MG TAB PO ONE (18:00)
[2020-11-28] MEDS: LORATADINE 10 MG TAB PO SCH (21:26)
[2020-11-28] MEDS: CITALOPRAM HYDROBROMIDE 20 MG TAB PO SCH (21:26)
[2020-11-28 21:30] LABS: Glucose,Whole Blood 291 mg/dL (75-99)
[2020-11-29] MEDS: LEVOTHYROXINE 88 MCG TAB PO SCH (05:53)
[2020-11-29] MEDS: PANTOPRAZOLE 40 MG TABLET PO SCH (05:54)
[2020-11-29 06:41] LABS: INR 4.1 (<1.2)
[2020-11-29 06:42] LABS: Basophils % (A) 0 %; Eosinophils % (A) 0 %; HCT 39.3 % (34.0-46.0); HGB 13.1 gm/dL (11.4-16.0); Lymphocytes # (A) 0.6 k/uL (1.0-4.8); Lymphocytes % (A) 10 %; MCH 29.8 pg (25.0-35.0); MCHC 33.4 g/dL (31.0-37.0); MCV 89.1 fL (80.0-100.0); Mean Platelet Volume 11.7; Monocytes # (A) 0.1 k/uL (0-1.0); Monocytes % (A) 3 %; Neutrophils # (A) 4.6 k/uL (1.3-7.7); Neutrophils % (A) 86 %; Platelet Count 106 k/uL (150-450); RBC 4.41 m/uL (3.80-5.40); WBC 5.3 k/uL (3.8-10.6)
[2020-11-29 06:57] LABS: Glucose,Whole Blood 157 mg/dL (75-99)
[2020-11-29] MEDS: FUROSEMIDE 40 MG TAB PO SCH ×2 (08:03→18:21)
[2020-11-29] MEDS: METHYLPHENIDATE HCL 10 MG TAB PO SCH ×3 (08:03→17:53)
[2020-11-29] MEDS: ASPIRIN 81 MG PO SCH (08:03)
[2020-11-29] MEDS: FOLIC ACID 1 MG TAB PO SCH (08:03)
[2020-11-29] MEDS: PREGABALIN 100 MG CAP PO SCH ×3 (08:04→21:25)
[2020-11-29] MEDS: INSULIN ASPART (NovoLOG) 100 UNIT/ML VIAL SQ SCH ×4 (08:04→21:25)
[2020-11-29] MEDS: POTASSIUM CHLORIDE ER 20 MEQ TAB.ER PO SCH ×2 (08:04→18:21)
[2020-11-29] MEDS: CHOLECALCIFEROL 25 MCG (1000 IU) TABLET PO SCH (08:04)
[2020-11-29] MEDS: FLUTICASONE 50MCG/SPRAY NASAL 16GM EA NOSTRIL SCH (08:05)
[2020-11-29] MEDS: ACETAMINOPHEN TAB 500 MG TAB PO PRN ×3 (08:09→21:25)
[2020-11-29 08:44] LABS: Anisocytosis (M) Present
[2020-11-29 10:12] LABS: African American GFR (CKD) 54.2 (60.0-200.0); Albumin 3.9 g/dL (3.80-4.90); Albumin/Globulin Ratio 2.17 (1.60-3.17); Anion Gap 7.5 mmol/L (4.00-12.00); BUN/Creat Ratio 25.83 Ratio (12.00-20.00); Carbon Dioxide 32.5 mmol/L (21.6-31.8); Globulin 1.8 g/dL (1.6-3.3); Non-African American GFR(CKD) 46.7 (60.0-200.0); Potassium 3.9 mmol/L (3.5-5.5); Total Bilirubin 0.5 mg/dL (0.3-1.2); Total Protein 5.7 g/dL (6.2-8.2)
[2020-11-29 12:07] LABS: Glucose,Whole Blood 180 mg/dL (75-99)
--- NOTE | 2020-11-29 13:37 | P.PN ---
Subjective Progress Note Date: 11/29/20 This is a 65-year-old female patient who presented to the ER with complaints of increased weakness and numbness over the past week patient does have past medical history of MS and stroke expressive aphasia. Patient follows normally with Dr. Downing. Additional medical history includes fibromyalgia, chest pain, osteoarthritis, pulmonary embolism and thyroid disorder. Chest x-ray was performed showing no active cardiopulmonary disease. No change. COVID-19 negative. UA negative. TSH 4.920 will increase Synthroid to 88 mg. At this time neurology services will be consulted. Cardiology services also consulted for bradycardia. Home medications resumed. Patient denies any chest pain or shortness of breath. Patient denies nausea vomiting or diarrhea. Patient denies any urinary burning or frequency On 11/26/2020 patient is alert and oriented 3. Patient is currently sitting up on side about working with physical therapy. Head CT and spinal MRIs ordered per neurology services. Orthopedic service is consulted for spinal spondylosis. At this time patient denies chest pain or shortness breath. Patient denies nausea vomiting or diarrhea. Patient denies urinary burning or frequency. Repeat labs have been ordered. Awaiting neurology input regards to steroids On 11/27/2020 Patient was seen and examined on the medical floor, he is alert and oriented x 3 in no distress, he denies any complaints there is no fever or chills no headache or dizziness no chest pain no shortness of breath no palpitation no cough no nausea or vomiting no abdominal pain no diarrhea no blood in the stools no burning with urination no frequency or urgency and no hematuria, she is complaining of severe weakness from the neck down, she is complaining of generalized body ache, otherwise no specific complaints On 11/28/2020 Patient was seen and examined on the medical floor, he is alert and oriented x 3 in no distress, he denies any complaints there is no fever or chills no headache or dizziness no chest pain no shortness of breath no palpitation no cough no nausea or vomiting no abdominal pain no diarrhea no blood in the stools no burning with urination no frequency or urgency and no hematuria, patient is still complaining of generalized weakness and generalized body aches without any complaint, she stated that she is improving with IV steroids will continue with current regimen On 11/29/2020 Patient was seen and examined on the medical floor, he is alert and oriented x 3 in no distress, he denies any complaints there is no fever or chills no headache or dizziness no chest pain no shortness of breath no palpitation no cough no nausea or vomiting no abdominal pain no diarrhea no b lood in the stools no burning with urination no frequency or urgency and no hematuria, patient is still complaining of generalized weakness and generalized body aches without any complaint, she stated that she is improving with IV steroids will continue with current regimen Objective - Vital Signs Vital signs: Vital Signs Temp 97.7 F 11/29/20 04:57 Pulse 49 L 11/29/20 04:57 Resp 16 11/29/20 04:57 BP 128/74 11/29/20 04:57 Pulse Ox 94 L 11/29/20 04:57 Intake & Output 11/28/20 11/29/20 11/29/20 18:59 06:59 18:59 Intake Total 100 580 Balance 100 580 Intake: Intake, IV Titration 100 100 Amount methylPREDNISolone SOD 100 100 SUCC 250 mg In Sodium Chloride 0.9% 100 ml @ 200 mls/hr IVPB 0900,2100 [facility] Rx#:[id number] Oral 480 Other: # Voids 1 2 - Exam Head normocephalic Neck supple Lungs clear to auscultation bilaterally no wheezing or crackles Heart regular rate and rhythm S1-S2, no rub or gallop Abdomen is soft nontender nondistended positive bowel sounds no hepatosplenomegaly Extremities no edema Neuro alert and orientated to 3. Expressive aphasia - Labs CBC & Chem 7: 11/29/20 05:47 11/29/20 05:47 Labs: Abnormal Lab Results - Last 24 Hours (Table) 11/28/20 11/28/20 11/28/20 Range/Units 06:32 11:10 16:52 PT 34.8 H (9.0-12.0) sec INR 3.6 H (<1.2) POC Glucose (mg/dL) 210 H 127 H (75-99) mg/dL 11/28/20 11/29/20 11/29/20 Range/Units 21:28 05:47 06:50 PT 39.0 H (9.0-12.0) sec INR 4.1 H (<1.2) POC Glucose (mg/dL) 291 H 157 H (75-99) mg/dL Assessment and Plan Assessment: 1. Generalized weakness and increased numbness likely secondary to MS exacerbation. Neurology services have been consulted. Patient started on IV steroids 2. Bradycardia. Cardiology services have been consulted 3. Hypothyroidism. TSH 4.92. Synthroid increased to 88 mics 4. History of pulmonary embolism. Patient maintained on Coumadin. 5. History of fibromyalgia 6. History of CVA expressive aphasia deficit 7. Diabetes mellitus type 2 8. Spinal spondylosis. Patient was evaluated by with orthopedic services. Per orthopedic services symptomatic treatment of back or neck pain reasonable. DVT prophylaxis Coumadin. GI prophylaxis Protonix cardiology and neurology service is consulted
--- NOTE | 2020-11-29 16:29 | P.PN ---
Subjective Progress Note Date: 11/29/20 The patient was seen at bedside accompanied by the patient's nurse. Per the patient's she stated that she somewhat better with IV steroids but she is not back to baseline and she is in pain and has generalized pain. She said that the steroids usually take some time but are effective and she had similar pr esentation in the past like this. She stated that the steroids aren't effective treatment for her for this presentation and stated above had similar presentation like this in the past. She said this sooner that the steroids usually are started the more relief she gets. She is on IV Solu-Medrol 250 mg every 12 hours. Her INR continues to trend up and last dose is 4.1. Objective - Vital Signs Vital signs: Vital Signs Temp 97.9 F 11/29/20 11:23 Pulse 66 11/29/20 11:23 Resp 16 11/29/20 11:23 BP 145/75 11/29/20 11:23 Pulse Ox 94 L 11/29/20 11:23 Intake & Output 11/28/20 11/29/20 11/29/20 18:59 06:59 18:59 Intake Total 100 580 Balance 100 580 Intake: Intake, IV Titration 100 100 Amount methylPREDNISolone SOD 100 100 SUCC 250 mg In Sodium Chloride 0.9% 100 ml @ 200 mls/hr IVPB 0900,2100 [facility] Rx#:[id number] Oral 480 Other: # Voids 1 2 - Exam GENERAL: The patient is lying in bed and is in mild acute distress. INTEGUMENTARY: Has red rash over the bilateral cheek (right >left) and rash over the right side of eyebrow and feels warm to touch. Has erythematous rash over upper half of chest, lower neck region. MUSCULOSKELETAL: Has tender to touch throughout all extremities and joints of upper and lower extremities. NEUROLOGICAL: Higher mental function: The patient is awake, alert, oriented to self. She stated she was in hospital with options. Patient is following commands with verbal and sometimes with pontomine. She has paraphasic errors and grammatical errors. She has some preservation . Has signifiant expressive aphasia. She has some word salading. No neglect. Cranial nerves: The pupils are round, equal and reactive to light. Visual lazar are full to confrontation throughout. Extraocular movement is intact no nystagmus is noted. Facial sensation is normal to touch throughout. Mild right nasolabial flattening but symetrical to smile. Hearing is normal bilaterally to hand rub. Tongue is midline and moved [id number] without any difficulty. No dysarthria is noted. Shoulder shrug is normal (antigravity) bilaterally. Motor: Gait is deferred because of her pain. The strength is moving all extremities above gravity without drift (could not assess individual muscle because of her diffuse pain). No spontaneous movement noted. Sensation: Could not assess especially since tender to touch. Reflexes (right/left): 2-3+ throughout except ankles are 2+ Plantars Could not assess. - Labs CBC & Chem 7: 11/29/20 05:47 11/29/20 05:47 Labs: Abnormal Lab Results - Last 24 Hours (Table) 11/28/20 11/28/20 11/29/20 Range/Units 16:52 21:28 05:47 Plt Count (150-450) k/uL Lymphocytes # (1.0-4.8) k/uL PT 39.0 H (9.0-12.0) sec INR 4.1 H (<1.2) Carbon Dioxide (21.6-31.8) mmol/L BUN (9.0-27.0) mg/dL Est GFR (CKD-EPI)AfAm (60.0-200.0) Est GFR (CKD-EPI)NonAf (60.0-200.0) BUN/Creatinine Ratio (12.00-20.00) Ratio Glucose (70-110) mg/dL POC Glucose (mg/dL) 127 H 291 H (75-99) mg/dL Total Protein (6.2-8.2) g/dL 11/29/20 11/29/20 11/29/20 Range/Units 05:47 05:47 06:50 Plt Count 106 L (150-450) k/uL Lymphocytes # 0.6 L (1.0-4.8) k/uL PT (9.0-12.0) sec INR (<1.2) Carbon Dioxide 32.5 H (21.6-31.8) mmol/L BUN 31.0 H (9.0-27.0) mg/dL Est GFR (CKD-EPI)AfAm 54.2 L (60.0-200.0) Est GFR (CKD-EPI)NonAf 46.7 L (60.0-200.0) BUN/Creatinine Ratio 25.83 H (12.00-20.00) Ratio Glucose 164 H (70-110) mg/dL POC Glucose (mg/dL) 157 H (75-99) mg/dL Total Protein 5.7 L (6.2-8.2) g/dL 11/29/20 Range/Units 11:55 Plt Count (150-450) k/uL Lymphocytes # (1.0-4.8) k/uL PT (9.0-12.0) sec INR (<1.2) Carbon Dioxide (21.6-31.8) mmol/L BUN (9.0-27.0) mg/dL Est GFR (CKD-EPI)AfAm (60.0-200.0) Est GFR (CKD-EPI)NonAf (60.0-200.0) BUN/Creatinine Ratio (12.00-20.00) Ratio Glucose (70-110) mg/dL POC Glucose (mg/dL) 180 H (75-99) mg/dL Total Protein (6.2-8.2) g/dL Assessment and Plan Assessment: * Generalized pain throughout entire upper and lower extremity (per he think she complains of numbness that start in the lower extremity that ascends up). She has rash over the bilateral cheek (seemed like butterfly rash) and rash over the right eyebrow an upper chest. Initially my concern was connective tissue disease (possibly Lupus because of rash) vs myositis but all work-up is coming back negative. Because of numbness ascending up: Rule out Chronic Inflammtory Demylinating Polyneuropathy (CIDP) but seem atypical since reflexes are not affected. She has multiple episode of similar presentation and was told she has MS and usually is effective with IV steroid. I am not convinced she has MS (upon reviewing imaging but cannot be exclused) but per she is diagnosed with MS. * History of left MCA stroke in 2006 with residual significant expressive aphasia * Diagnosis of relapsing remitting multiple sclerosis diagnosed by her outside neurologist * Supratherapeutic INR (4.1)--trending up * Hypertension * Acute on Chronic kidney insuffiency * Urinary incontinence * Hyperlipidemia * Obstructive sleep apnea * DVT on Coumadin * Fibromyalgia Plan: * I personally saw the patient last on 05/08/2020 and the I felt the patient's altered mental status was likely due to toxic metabolic encephalopathy as well as a septic from the urinary tract infection. * Regarding her diagnosis of multiple sclerosis I reviewed the MRI of the brain on 04/29/2018 our system and there is no lesion supporting multiple sclerosis. As well as Dr. Teixeira's note upon seeing her in the past he did he was not convinced the patient had evidence of multiple sclerosis. She had MRI of the cervical spine and 09/18/2017 which showed vague area of increased signal wit hin the cervical spine cord at the C2-C3 and C3-C4. The monitoring difficult to exclude. * CT of the head is reported as there is mild diffuse age-related cerebral atrophy and chronic small vessel ischemic change along significant old the left-sided infarct old redemonstrated. No signal change from the most recent prior CT. I personally reviewed the CT of the head and there is no intraparenchymal bleed. * CT cervical, thoracic and lumbar region it is reported as no acute findings are evident. In the body of the port it is mentioned that the patient has persistent slight S-shaped scoliotic curvature. Moderate to severe disc space narrowing and the C5 to C6 and C6 to C7 levels. Moderate to severe disc space narrowing with that Q room disc phenomenon at L5-S1 level. * MRI the brain w/ and w/o: As reported as old large left middle cerebral artery distribution infarct without change. No acute intracranial abnormality. * MRI Cervical spine w/ and w/o and cervical spine with and without is reported as frontal changes in the cervical spine with multilevels small posterior disc herniation. No significant spinal stenosis at. No change. * MRI of the lumbar spine is reported as mild degenerative disc changes. No spinal stenosis. Small posterior disc bulging and herniation at the L5-S1. No significant change compared to old exam. I personally reviewed the MRI images and I am still not convinced that the patient has multiple sclerosis radiographically. * TSH is 4.92 which is elevated and free T4 is 1.13 (normal). * Vitamin B12 is 403 on 05/04/2020 which is normal and does not need to be repeated. Also red blood cell folate is 829 which is above the normal age was considered normal on 05/2020 and does not need to be repeated. * NENA: negative, gimi-kezmgu-cvsjfxie DNA <1.0, cANCA and pANC <1:20, creatinine kinase 113 (normal), WILLIAM, Terrie 1 antibody negative, rheumatoid factor 5 (normal), ROUNDHOUSE WORKER antibody negative, anti-Lou antibody negative, lupus antico agulant, SSA and SSB antibody negative, ROUNDHOUSE WORKER antibody negative. ESR 17 and CRP <0.4 (normal), anti-PM/Scl 100 ab negative. Patient lupus anticoagulant PTT 55 which is elevated, patient delusional Bryan's viper venom is 57 which is elevated. Lupus anticoagulant is negative. * Rheumatology team is consulted. Currently on IV SOlu-Medrol 250mg every 12 hours. Initial dose is on 11/26/2020 at night. I increase the Steroid to 500mg every 12 hours (consider stopping it at 12/01/2020). * Recommend Lumbar Puncture to rule out other underlying condition. Currently she is on coumadin. We will hold off for now for lumbar puncture and possibly by Monday or Monday can consider Lumbar puncture. Patient is adamant on getting IV steroid since has helped in past. (I spoke with the patinet's and he is in agreement of getting lumbar puncture once stable). * I ordered antimitochondrial antibody, LDH, aldolase level. Possibly consider ruling out myopathy. Her CK level is normal which in some patients CK can be normal but again I think that should be one of the differential. Recommend EMG with nerve conduction study as an outpatient and possibly muscle biopsy should be considered as an outpatient as well. * Aspirin 81 mg is continued. Recommend Lipitor 10 mg is suspicion that since the patient had elevated liver function test in the past if she cannot tolerate any statins then we'll hold off on any statins. * Physical therapy and occupational therapy are consulted * Continue Q4 hour neuro checks and continous cardiac monitoring. * Orthopedic team evaluated the patient for spondylosis and no intervention. * We'll defer the rest of the medical management to the primary team. Upon discharge the patient needs to follow-up with neurology (Dr. Elizabeth's team) as outpatient within 1-2 weeks. The plan is discussed with the patient and her nurse. Kannan Reaves M.D. Neuro-hospitalist Time with Patient: Greater than 30
[2020-11-29] MEDS ORDERED: WARFARIN 0.5 MG TAB PO ONE (18:00)
[2020-11-29 18:06] LABS: Glucose,Whole Blood 185 mg/dL (75-99)
[2020-11-29] MEDS: BACLOFEN 10 MG TAB PO SCH (18:21)
[2020-11-29] MEDS: MONTELUKAST 10 MG TAB PO SCH (18:21)
[2020-11-29] MEDS: FERROUS SULFATE 325 MG TAB PO SCH (18:21)
[2020-11-29 20:25] LABS: Glucose,Whole Blood 196 mg/dL (75-99)
[2020-11-29] MEDS: CITALOPRAM HYDROBROMIDE 20 MG TAB PO SCH (21:25)
[2020-11-29] MEDS: LORATADINE 10 MG TAB PO SCH (21:25)
[2020-11-30 05:31] LABS: Basophils % (A) 0 %; Eosinophils % (A) 1 %; HCT 40.7 % (34.0-46.0); HGB 13.5 gm/dL (11.4-16.0); Lymphocytes # (A) 0.6 k/uL (1.0-4.8); Lymphocytes % (A) 13 %; MCH 29.6 pg (25.0-35.0); MCHC 33.2 g/dL (31.0-37.0); MCV 89.4 fL (80.0-100.0); Mean Platelet Volume 11.5; Monocytes # (A) 0.1 k/uL (0-1.0); Monocytes % (A) 3 %; Neutrophils # (A) 3.5 k/uL (1.3-7.7); Neutrophils % (A) 83 %; Platelet Count 105 k/uL (150-450); RBC 4.55 m/uL (3.80-5.40); RDW 13.6 % (11.5-15.5); WBC 4.2 k/uL (3.8-10.6)
[2020-11-30] MEDS: PANTOPRAZOLE 40 MG TABLET PO SCH (05:44)
[2020-11-30] MEDS: LEVOTHYROXINE 88 MCG TAB PO SCH (05:45)
[2020-11-30 05:49] LABS: INR 3.2 (<1.2); Prothrombin Time 31.1 sec (9.0-12.0)
[2020-11-30 07:13] LABS: Glucose,Whole Blood 191 mg/dL (75-99)
[2020-11-30] MEDS: METHYLPHENIDATE HCL 10 MG TAB PO SCH ×3 (08:11→16:16)
[2020-11-30] MEDS: FOLIC ACID 1 MG TAB PO SCH (08:11)
[2020-11-30] MEDS: ASPIRIN 81 MG PO SCH (08:12)
[2020-11-30] MEDS: INSULIN ASPART (NovoLOG) 100 UNIT/ML VIAL SQ SCH ×4 (08:12→21:51)
[2020-11-30] MEDS: FLUTICASONE 50MCG/SPRAY NASAL 16GM EA NOSTRIL SCH (08:12)
[2020-11-30] MEDS: FUROSEMIDE 40 MG TAB PO SCH ×2 (08:12→18:01)
[2020-11-30] MEDS: POTASSIUM CHLORIDE ER 20 MEQ TAB.ER PO SCH ×2 (08:12→18:01)
[2020-11-30] MEDS: CHOLECALCIFEROL 25 MCG (1000 IU) TABLET PO SCH (08:12)
[2020-11-30] MEDS: PREGABALIN 100 MG CAP PO SCH ×3 (08:12→21:42)
[2020-11-30 09:51] LABS: African American GFR (CKD) 60.2 (60.0-200.0); Albumin 3.8 g/dL (3.80-4.90); Albumin/Globulin Ratio 2.11 (1.60-3.17); Anion Gap 8.2 mmol/L (4.00-12.00); BUN/Creat Ratio 28.18 Ratio (12.00-20.00); Calcium 8.6 mg/dL (8.7-10.3); Carbon Dioxide 33.8 mmol/L (21.6-31.8); Globulin 1.8 g/dL (1.6-3.3); Non-African American GFR(CKD) 51.9 (60.0-200.0); Potassium 3.6 mmol/L (3.5-5.5); Total Bilirubin 0.6 mg/dL (0.3-1.2); Total Protein 5.6 g/dL (6.2-8.2)
[2020-11-30 11:51] LABS: Glucose,Whole Blood 335 mg/dL (75-99)
[2020-11-30] MEDS ORDERED: INSULIN ASPART (NovoLOG) 100 UNIT/ML VIAL SQ ONE ×2 (13:45→21:33)
--- NOTE | 2020-11-30 16:47 | P.PN ---
Subjective Progress Note Date: 11/30/20 This is a 65-year-old female patient who presented to the ER with complaints of increased weakness and numbness over the past week patient does have past medical history of MS and stroke expressive aphasia. Patient follows normally with Dr. Downing. Additional medical history includes fibromyalgia, chest pain, osteoarthritis, pulmonary embolism and thyroid disorder. Chest x-ray was performed showing no active cardiopulmonary disease. No change. COVID-19 negative. UA negative. TSH 4.920 will increase Synthroid to 88 mg. At this time neurology services will be consulted. Cardiology services also consulted for bradycardia. Home medications resumed. Patient denies any chest pain or shortness of breath. Patient denies nausea vomiting or diarrhea. Patient denies any urinary burning or frequency On 11/26/2020 patient is alert and oriented 3. Patient is currently sitting up on side about working with physical therapy. Head CT and spinal MRIs ordered per neurology services. Orthopedic service is consulted for spinal spondylosis. At this time patient denies chest pain or shortness breath. Patient denies nausea vomiting or diarrhea. Patient denies urinary burning or frequency. Repeat labs have been ordered. Awaiting neurology input regards to steroids On 11/27/2020 Patient was seen and examined on the medical floor, he is alert and oriented x 3 in no distress, he denies any complaints there is no fever or chills no headache or dizziness no chest pain no shortness of breath no palpitation no cough no nausea or vomiting no abdominal pain no diarrhea no blood in the stools no burning with urination no frequency or urgency and no hematuria, she is complaining of severe weakness from the neck down, she is complaining of generalized body ache, otherwise no specific complaints On 11/28/2020 Patient was seen and examined on the medical floor, he is alert and oriented x 3 in no distress, he denies any complaints there is no fever or chills no headache or dizziness no chest pain no shortness of breath no palpitation no cough no nausea or vomiting no abdominal pain no diarrhea no blood in the stools no burning with urination no frequency or urgency and no hematuria, patient is still complaining of generalized weakness and generalized body aches without any complaint, she stated that she is improving with IV steroids will continue with current regimen On 11/29/2020 Patient was seen and examined on the medical floor, he is alert and oriented x 3 in no distress, he denies any complaints there is no fever or chills no headache or dizziness no chest pain no shortness of breath no palpitation no cough no nausea or vomiting no abdominal pain no diarrhea no b lood in the stools no burning with urination no frequency or urgency and no hematuria, patient is still complaining of generalized weakness and generalized body aches without any complaint, she stated that she is improving with IV steroids will continue with current regimen On 11/30/2020 Patient was seen and examined on the medical floor, he is alert and oriented x 3 in no distress, he denies any complaints there is no fever or chills no headache or dizziness no chest pain no shortness of breath no palpitation no cough no nausea or vomiting no abdominal pain no diarrhea no blood in the stools no burning with urination no frequency or urgency and no hematuria, there is some improvement in generalized body weakness and pain, at this time will continue with current IV steroids follow in a.m. Objective - Vital Signs Vital signs: Vital Signs Temp 97.6 F 11/30/20 12:32 Pulse 58 L 11/30/20 12:32 Resp 18 11/30/20 12:32 BP 133/69 11/30/20 12:32 Pulse Ox 95 11/30/20 12:32 Intake & Output 11/29/20 11/30/20 11/30/20 18:59 06:59 18:59 Intake Total 200 Balance 200 Intake: Intake, IV Titration 200 Amount methylPREDNISolone SOD 100 SUCC 250 mg In Sodium Chloride 0.9% 100 ml @ 200 mls/hr IVPB 0900,2100 [facility] Rx#:[id number] methylPREDNISolone SOD 100 SUCC 250 mg In Sodium Chloride 0.9% 100 ml @ 200 mls/hr IV[facility] Rx#:[id number] Other: Voiding Method Bedside Commode Diaper Incontinent # Voids 2 - Exam Head normocephalic Neck supple Lungs clear to auscultation bilaterally no wheezing or crackles Heart regular rate and rhythm S1-S2, no rub or gallop Abdomen is soft nontender nondistended positive bowel sounds no hepatosplenome nico Extremities no edema Neuro alert and orientated to 3. Expressive aphasia - Labs CBC & Chem 7: 11/30/20 04:46 11/30/20 04:46 Labs: Abnormal Lab Results - Last 24 Hours (Table) 11/29/20 11/29/20 11/30/20 Range/Units 18:04 20:24 04:46 Plt Count (150-450) k/uL Lymphocytes # (1.0-4.8) k/uL PT 31.1 H (9.0-12.0) sec INR 3.2 H (<1.2) Carbon Dioxide (21.6-31.8) mmol/L BUN (9.0-27.0) mg/dL Est GFR (CKD-EPI)NonAf (60.0-200.0) BUN/Creatinine Ratio (12.00-20.00) Ratio Glucose (70-110) mg/dL POC Glucose (mg/dL) 185 H 196 H (75-99) mg/dL Calcium (8.7-10.3) mg/dL Total Protein (6.2-8.2) g/dL 11/30/20 11/30/20 11/30/20 Range/Units 04:46 04:46 07:06 Plt Count 105 L (150-450) k/uL Lymphocytes # 0.6 L (1.0-4.8) k/uL PT (9.0-12.0) sec INR (<1.2) Carbon Dioxide 33.8 H (21.6-31.8) mmol/L BUN 31.0 H (9.0-27.0) mg/dL Est GFR (CKD-EPI)NonAf 51.9 L (60.0-200.0) BUN/Creatinine Ratio 28.18 H (12.00-20.00) Ratio Glucose 174 H (70-110) mg/dL POC Glucose (mg/dL) 191 H (75-99) mg/dL Calcium 8.6 L (8.7-10.3) mg/dL Total Protein 5.6 L (6.2-8.2) g/dL 11/30/20 Range/Units 11:31 Plt Count (150-450) k/uL Lymphocytes # (1.0-4.8) k/uL PT (9.0-12.0) sec INR (<1.2) Carbon Dioxide (21.6-31.8) mmol/L BUN (9.0-27.0) mg/dL Est GFR (CKD-EPI)NonAf (60.0-200.0) BUN/Creatinine Ratio (12.00-20.00) Ratio Glucose (70-110) mg/dL POC Glucose (mg/dL) 335 H (75-99) mg/dL Calcium (8.7-10.3) mg/dL Total Protein (6.2-8.2) g/dL Assessment and Plan Assessment: 1. Generalized weakness and increased numbness likely secondary to MS exacerbation. Neurology services have been consulted. Patient started on IV steroids 2. Bradycardia. Cardiology services have been consulted 3. Hypothyroidism. TSH 4.92. Synthroid increased to 88 mics 4. History of pulmonary embolism. Patient maintained on Coumadin. 5. History of fibromyalgia 6. History of CVA expressive aphasia deficit 7. Diabetes mellitus type 2 8. Spinal spondylosis. Patient was evaluated by with orthopedic services. Per orthopedic services symptomatic treatment of back or neck pain reasonable. DVT prophylaxis Coumadin. GI prophylaxis Protonix cardiology and neurology service is consulted
[2020-11-30 17:39] LABS: Glucose,Whole Blood 185 mg/dL (75-99)
[2020-11-30] MEDS ORDERED: WARFARIN 5 MG TAB PO ONE (18:00)
[2020-11-30] MEDS: BACLOFEN 10 MG TAB PO SCH (18:02)
[2020-11-30] MEDS: MONTELUKAST 10 MG TAB PO SCH (18:02)
[2020-11-30] MEDS: FERROUS SULFATE 325 MG TAB PO SCH (18:02)
[2020-11-30 20:49] LABS: Glucose,Whole Blood 275 mg/dL (75-99)
[2020-11-30] MEDS: CITALOPRAM HYDROBROMIDE 20 MG TAB PO SCH (21:42)
[2020-11-30] MEDS: LORATADINE 10 MG TAB PO SCH (21:42)
[2020-12-01] MEDS: LEVOTHYROXINE 88 MCG TAB PO SCH (05:57)
[2020-12-01] MEDS: PANTOPRAZOLE 40 MG TABLET PO SCH (05:57)
[2020-12-01 07:00] LABS: INR 2.3 (<1.2); Prothrombin Time 22.2 sec (9.0-12.0)
[2020-12-01 07:01] LABS: Glucose,Whole Blood 182 mg/dL (75-99)
[2020-12-01 07:16] LABS: ALT 25 U/L (4-34); AST 22 U/L (14-36); African American GFR (CKD) 61 (>60 ml/min/1.73 sqM); Albumin 3.4 g/dL (3.5-5.0); Albumin/Globulin Ratio 1.7; Alkaline Phosphatase 71 U/L (38-126); Anion Gap 1 mmol/L; Blood Urea Nitrogen 34 mg/dL (7-17); Calcium 8.3 mg/dL (8.4-10.2); Carbon Dioxide 38 mmol/L (22-30); Chloride 101 mmol/L (98-107); Glucose 176 mg/dL (74-99); Non-African American GFR(CKD) 53 (>60 ml/min/1.73 sqM); Potassium 3.2 mmol/L (3.5-5.1); Sodium 140 mmol/L (137-145); Total Bilirubin 0.6 mg/dL (0.2-1.3); Total Protein 5.4 g/dL (6.3-8.2)
[2020-12-01 07:32] LABS: Basophils % (A) 0 %; Eosinophils % (A) 1 %; HCT 39.3 % (34.0-46.0); HGB 13.8 gm/dL (11.4-16.0); Lymphocytes # (A) 0.4 k/uL (1.0-4.8); Lymphocytes % (A) 9 %; MCH 31.3 pg (25.0-35.0); MCHC 35.2 g/dL (31.0-37.0); MCV 88.9 fL (80.0-100.0); Mean Platelet Volume 11.2; Monocytes # (A) 0.2 k/uL (0-1.0); Monocytes % (A) 3 %; Neutrophils # (A) 4.1 k/uL (1.3-7.7); Neutrophils % (A) 87 %; Platelet Count 102 k/uL (150-450); RBC 4.43 m/uL (3.80-5.40); RDW 13.2 % (11.5-15.5); WBC 4.8 k/uL (3.8-10.6)
[2020-12-01] MEDS: POTASSIUM CHLORIDE ER 20 MEQ TAB.ER PO SCH ×2 (08:38→16:56)
[2020-12-01] MEDS: METHYLPHENIDATE HCL 10 MG TAB PO SCH ×3 (08:38→17:03)
[2020-12-01] MEDS: PREGABALIN 100 MG CAP PO SCH ×3 (08:38→20:22)
[2020-12-01] MEDS: INSULIN ASPART (NovoLOG) 100 UNIT/ML VIAL SQ SCH ×4 (08:38→23:12)
[2020-12-01] MEDS: ASPIRIN 81 MG PO SCH (08:38)
[2020-12-01] MEDS: CHOLECALCIFEROL 25 MCG (1000 IU) TABLET PO SCH (08:38)
[2020-12-01] MEDS: FOLIC ACID 1 MG TAB PO SCH (08:38)
[2020-12-01] MEDS: FUROSEMIDE 40 MG TAB PO SCH ×2 (08:39→16:56)
[2020-12-01] MEDS: FLUTICASONE 50MCG/SPRAY NASAL 16GM EA NOSTRIL SCH (08:40)
--- NOTE | 2020-12-01 11:12 | P.CON ---
Consult Note - . Consult date: 11/26/20 Assessment/Plan:: This is a inpatient hospital consult of a 65 year old female referred by Dr. Kannan Reaves, neurology for rule out Lupus secondary to butterfly rash and significant generalized pain. Patient has pertinent medical history of stroke in 2006 with subsequent expressive aphasia and also multiple sclerosis as diagnosed by her neurologist, Dr Elizabeth. Per neuro-hospitalist Dr. Reaves, he does not seem convinced that the patient is suffering from MS and wanted to exclude any connective tissue disease as a source of her significant pain. Patient is sitting in bed accompanied by during my encounter today. Patient is found coloring in a sketch book and states that she came to the hospital for a MS exacerbation which is causing her significant generalized pain. She states that her last flare was roughly 6 months ago. Patient is hard to understand at times due to expressive aphasia. I was able to gather most historical information from patients . Patient recently saw Dr. Elizabeth for epidurals into lumbar spine. They believe patient has had MRI of brain, C- spine, and L-spine. They are not sure how MS was diagnosed or in what year. Patients states patient has never injured spine or had surgery. She suffered from a stroke in 2006 and struggles with expressive aphasia that is worse with stress. Patient reports pain started about 1 week ago and has progressively worsened. She states pain is constant and throughout entire body but spares her head, neck, and chest. She states any form of pressure or touch makes pain worse and steroids are her only source of relief. Patient is also currently on Lyrica and Ritalin for her MS. Patient lives at home with . Exam: AOxself and situation, pain on palpation of 12+ tender points and joints with wincing and vocalizing pain, full ROM all joints aside from slight decreased extension bilateral knees worse on left. No jean-claude evidence of synovitis and no effusions. Lungs CTA and heart sounds RRR. Malar erythema. Labs drawn by Dr. Reaves and reviewed showed: normal A1C, negative crystal, negative BALLOON ARTIST, negative SCL-70, negative Terrie-1, negative ssa & ssb, negative NENA, normal ESR, normal creatine kinase, normal CRP, negative rheumatoid factor, negative ds dna, CBC showed low platelet 114 and low absolute lymphocytes 0.4, high prothrombin time 27.6, high INR 2.9. I have low suspicion of connective tissue disease as antibody tests that are currently resulted are negative with normal inflammatory markers. Her symptoms and physical exam findings are also inconsistent with connective tissue disease. My recommendation includes continued evaluation and treatment by neurology and PCP.
[2020-12-01 11:50] LABS: Glucose,Whole Blood 290 mg/dL (75-99)
[2020-12-01 13:08] VITALS: BMI 41.5
[2020-12-01] MEDS: FERROUS SULFATE 325 MG TAB PO SCH (16:56)
[2020-12-01] MEDS: BACLOFEN 10 MG TAB PO SCH (16:56)
[2020-12-01] MEDS: MONTELUKAST 10 MG TAB PO SCH (17:04)
[2020-12-01 17:10] LABS: Glucose,Whole Blood 114 mg/dL (75-99)
[2020-12-01] MEDS ORDERED: WARFARIN 5 MG TAB PO ONE (18:00)
--- NOTE | 2020-12-01 18:47 | P.PN ---
Subjective Progress Note Date: 12/01/20 Patient was seen for a follow-up. Initially seen by Dr. Kannan Reaves. Please refer to his note for details. Patient has reported history of MS. She follows up with Dr. Jefferson. Patient has presented with some aphasia, with possible MS exacerbation. Patient is laying in the bed. She states "I hurt all the time". "I hurt so bad". Patient has fragmented and tangential thoughts. Patient at times speaks random stuff which does not make sense. Please refer to examination below. Objective - Vital Signs Vital signs: Vital Signs Temp 97.8 F 12/01/20 11:25 Pulse 61 12/01/20 11:25 Resp 20 12/01/20 11:25 BP 124/73 12/01/20 11:25 Pulse Ox 94 L 12/01/20 11:25 Intake & Output 11/30/20 12/01/20 12/01/20 18:59 06:59 18:59 Intake Total 580 Balance 580 Intake: Oral 580 Other: Voiding Method Toilet Toilet # Voids 3 2 - Exam Patient is alert and awake, appears somewhat delirious. Patient speaks sentences, which does not have any sense. She states "she is the best house in whole people there". She states "I'm trying easy for you, it's hard for me, I appreciate and happy with you so much". She states "she is the best doctor we have", uncertain. She was referring to. Patient can name and repeat. She can follow directions. Her pupils are round and reacting, visual lazar are full, face is symmetric. Tongue protrudes the midline. Palatal elevation is normal. Hearing is decreased. Shoulder shrug normal. Muscle strength is normal in the arms and legs with no drift. Reflexes are 2+ to 3 all over in the upper limbs. 3 at the knees, 2+ ankles and plantars are downgoing. Patient has peripheral edema. Patient's face is flushed, possibly due to use of steroids. - Labs CBC & Chem 7: 12/01/20 06:19 12/01/20 06:19 Labs: Abnormal Lab Results - Last 24 Hours (Table) 11/30/20 11/30/20 12/01/20 Range/Units 17:36 20:47 06:19 Plt Count (150-450) k/uL Lymphocytes # (1.0-4.8) k/uL PT 22.2 H (9.0-12.0) sec INR 2.3 H (<1.2) Potassium (3.5-5.1) mmol/L Carbon Dioxide (22-30) mmol/L BUN (7-17) mg/dL Creatinine (0.52-1.04) mg/dL Glucose (74-99) mg/dL POC Glucose (mg/dL) 185 H 275 H (75-99) mg/dL Calcium (8.4-10.2) mg/dL Total Protein (6.3-8.2) g/dL Albumin (3.5-5.0) g/dL 12/01/20 12/01/20 12/01/20 Range/Units 06:19 06:19 06:58 Plt Count 102 L (150-450) k/uL Lymphocytes # 0.4 L (1.0-4.8) k/uL PT (9.0-12.0) sec INR (<1.2) Potassium 3.2 L (3.5-5.1) mmol/L Carbon Dioxide 38 H (22-30) mmol/L BUN 34 H (7-17) mg/dL Creatinine 1.09 H (0.52-1.04) mg/dL Glucose 176 H (74-99) mg/dL POC Glucose (mg/dL) 182 H (75-99) mg/dL Calcium 8.3 L (8.4-10.2) mg/dL Total Protein 5.4 L (6.3-8.2) g/dL Albumin 3.4 L (3.5-5.0) g/dL 12/01/20 Range/Units 11:28 Plt Count (150-450) k/uL Lymphocytes # (1.0-4.8) k/uL PT (9.0-12.0) sec INR (<1.2) Potassium (3.5-5.1) mmol/L Carbon Dioxide (22-30) mmol/L BUN (7-17) mg/dL Creatinine (0.52-1.04) mg/dL Glucose (74-99) mg/dL POC Glucose (mg/dL) 290 H (75-99) mg/dL Calcium (8.4-10.2) mg/dL Total Protein (6.3-8.2) g/dL Albumin (3.5-5.0) g/dL Assessment and Plan Assessment: * Generalized pain throughout entire upper and lower extremity (per he think she complains of numbness that start in the lower extremity that ascends up). She has rash over the bilateral cheek (seemed like butterfly rash) and rash over the right eyebrow an upper chest. Initially my concern was connective tissue disease (possibly Lupus because of rash) vs myositis but all work-up is coming back negative. Because of numbness ascending up: Rule out Chronic Inflammtory Demylinating Polyneuropathy (CIDP) but seem atypical since reflexes are not affected. She has multiple episode of similar presentation and was told she has MS and usually is effective with IV steroid. I am not convinced she has MS (upon reviewing imaging but cannot be exclused) but per she is diagnosed with MS. * History of left MCA stroke in 2006 with residual significant expressive aphasia * Diagnosis of relapsing remitting multiple sclerosis diagnosed by her outside neurologist * Supratherapeutic INR (4.1)--trending up * Hypertension * Acute on Chronic kidney insuffiency * Urinary incontinence * Hyperlipidemia * Obstructive sleep apnea * DVT on Coumadin * Fibromyalgia Plan: * Patient appears to be delirious at this time, with fluctuating mental status, hyper alertness, fragmented speech pattern. Delirium could be related to steroids. MRI of the brain negative for acute stroke. MRI of the brain revealed cerebral atrophy. Old large left middle cerebral artery distribution infarct without change. No acute intracranial abnormality. No convincing evidence for demyelinating disease. I suspect her fluent aphasia is likely related to residual effect of her previous large MCA territory CVA. * MRI the brain w/ and w/o: As reported as old large left middle cerebral artery distribution infarct without change. No acute intracranial abnormality. * MRI Cervical spine w/ and w/o and cervical spine with and without is reported as frontal changes in the cervical spine with multilevels small posterior disc herniation. No significant spinal stenosis at. No change. * MRI of the lumbar spine is reported as mild degenerative disc changes. No spinal stenosis. Small posterior disc bulging and herniation at the L5-S1. No significant change compared to old exam. I personally reviewed the MRI images and I am still not convinced that the patient has multiple sclerosis radiographically. * TSH is 4.92 which is elevated and free T4 is 1.13 (normal). * Vitamin B12 is 403 on 05/04/2020 which is normal. Also red blood cell folate is 829 normal on 05/2020. * NENA: negative, jexd-[id number]-pprovqut DNA <1.0, cANCA and pANC <1:20, creatinine kinase 113 (normal), WILLIAM, Terrie 1 antibody negative, rheumatoid factor 5 (normal), PRACTICE COORDINATOR antibody negative, anti-Lou antibody negative, lupus anticoagulant, SSA and SSB antibody negative, PRACTICE COORDINATOR antibody negative. ESR 17 and CRP <0.4 (normal), anti-PM/Scl 100 ab negative. Patient lupus anticoagulant PTT 55 which is elevated, patient delusional Bryan's viper venom is 57 which is elevated. Lupus anticoagulant is negative. 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 * Suggest stopping Solu-Medrol after 3 days of treatment. I would not place her on tapping doses of prednisone thereafter. * I do not feel need for lumbar puncture at this time. No clinical evidence of CIDP.
--- NOTE | 2020-12-01 19:12 | P.PN ---
Subjective Progress Note Date: 12/01/20 This is a 65-year-old female patient who presented to the ER with complaints of increased weakness and numbness over the past week patient does have past medical history of MS and stroke expressive aphasia. Patient follows normally with Dr. Downing. Additional medical history includes fibromyalgia, chest pain, osteoarthritis, pulmonary embolism and thyroid disorder. Chest x-ray was performed showing no active cardiopulmonary disease. No change. COVID-19 negative. UA negative. TSH 4.920 will increase Synthroid to 88 mg. At this time neurology services will be consulted. Cardiology services also consulted for bradycardia. Home medications resumed. Patient denies any chest pain or shortness of breath. Patient denies nausea vomiting or diarrhea. Patient denies any urinary burning or frequency On 11/26/2020 patient is alert and oriented 3. Patient is currently sitting up on side about working with physical therapy. Head CT and spinal MRIs ordered per neurology services. Orthopedic service is consulted for spinal spondylosis. At this time patient denies chest pain or shortness breath. Patient denies nausea vomiting or diarrhea. Patient denies urinary burning or frequency. Repeat labs have been ordered. Awaiting neurology input regards to steroids On 11/27/2020 Patient was seen and examined on the medical floor, he is alert and oriented x 3 in no distress, he denies any complaints there is no fever or chills no headache or dizziness no chest pain no shortness of breath no palpitation no cough no nausea or vomiting no abdominal pain no diarrhea no blood in the stools no burning with urination no frequency or urgency and no hematuria, she is complaining of severe weakness from the neck down, she is complaining of generalized body ache, otherwise no specific complaints On 11/28/2020 Patient was seen and examined on the medical floor, he is alert and oriented x 3 in no distress, he denies any complaints there is no fever or chills no headache or dizziness no chest pain no shortness of breath no palpitation no cough no nausea or vomiting no abdominal pain no diarrhea no blood in the stools no burning with urination no frequency or urgency and no hematuria, patient is still complaining of generalized weakness and generalized body aches without any complaint, she stated that she is improving with IV steroids will continue with current regimen On 11/29/2020 Patient was seen and examined on the medical floor, he is alert and oriented x 3 in no distress, he denies any complaints there is no fever or chills no headache or dizziness no chest pain no shortness of breath no palpitation no cough no nausea or vomiting no abdominal pain no diarrhea no b lood in the stools no burning with urination no frequency or urgency and no hematuria, patient is still complaining of generalized weakness and generalized body aches without any complaint, she stated that she is improving with IV steroids will continue with current regimen On 11/30/2020 Patient was seen and examined on the medical floor, he is alert and oriented x 3 in no distress, he denies any complaints there is no fever or chills no headache or dizziness no chest pain no shortness of breath no palpitation no cough no nausea or vomiting no abdominal pain no diarrhea no blood in the stools no burning with urination no frequency or urgency and no hematuria, there is some improvement in generalized body weakness and pain, at this time will continue with current IV steroids follow in a.m. On 12/01/2020 agent was seen and examined on the medical floor she is alert responsive in no apparent distress she is stating that her weakness is improving with IV steroids she is complaining of generalized pain otherwise she denies any specific complaints. Initially neurologist wanted a lumbar puncture to confirm or rule out the diagnosis of multiple sclerosis however on today's note neurolo gist is stating there is no need for lumbar puncture at this time. Coumadin was held yesterday in anticipation of lumbar puncture. At this time will resume Coumadin 5 mg by mouth daily, recheck labs CBC CMP and PT/INR in a.m. Objective - Vital Signs Vital signs: Vital Signs Temp 97.8 F 12/01/20 11:25 Pulse 61 12/01/20 11:25 Resp 20 12/01/20 11:25 BP 124/73 12/01/20 11:25 Pulse Ox 94 L 12/01/20 11:25 Intake & Output 11/30/20 12/01/20 12/01/20 18:59 06:59 18:59 Intake Total 580 Balance 580 Weight 113.398 kg Intake: Oral 580 Other: Voiding Method Toilet Toilet # Voids 3 2 1 - Exam Head normocephalic Neck supple Lungs clear to auscultation bilaterally no wheezing or crackles Heart regular rate and rhythm S1-S2, no rub or gallop Abdomen is soft nontender nondistended positive bowel sounds no hepatosplenomegaly Extremities no edema Neuro alert and orientated to 3. Expressive aphasia - Labs CBC & Chem 7: 12/01/20 06:19 12/01/20 06:19 Labs: Abnormal Lab Results - Last 24 Hours (Table) 11/30/20 11/30/20 12/01/20 Range/Units 17:36 20:47 06:19 Plt Count (150-450) k/uL Lymphocytes # (1.0-4.8) k/uL PT 22.2 H (9.0-12.0) sec INR 2.3 H (<1.2) Potassium (3.5-5.1) mmol/L Carbon Dioxide (22-30) mmol/L BUN (7-17) mg/dL Creatinine (0.52-1.04) mg/dL Glucose (74-99) mg/dL POC Glucose (mg/dL) 185 H 275 H (75-99) mg/dL Calcium (8.4-10.2) mg/dL Total Protein (6.3-8.2) g/dL Albumin (3.5-5.0) g/dL 12/01/20 12/01/20 12/01/20 Range/Units 06:19 06:19 06:58 Plt Count 102 L (150-450) k/uL Lymphocytes # 0.4 L (1.0-4.8) k/uL PT (9.0-12.0) sec INR (<1.2) Potassium 3.2 L (3.5-5.1) mmol/L Carbon Dioxide 38 H (22-30) mmol/L BUN 34 H (7-17) mg/dL Creatinine 1.09 H (0.52-1.04) mg/dL Glucose 176 H (74-99) mg/dL POC Glucose (mg/dL) 182 H (75-99) mg/dL Calcium 8.3 L (8.4-10.2) mg/dL Total Protein 5.4 L (6.3-8.2) g/dL Albumin 3.4 L (3.5-5.0) g/dL 12/01/20 Range/Units 11:28 Plt Count (150-450) k/uL Lymphocytes # (1.0-4.8) k/uL PT (9.0-12.0) sec INR (<1.2) Potassium (3.5-5.1) mmol/L Carbon Dioxide (22-30) mmol/L BUN (7-17) mg/dL Creatinine (0.52-1.04) mg/dL Glucose (74-99) mg/dL POC Glucose (mg/dL) 290 H (75-99) mg/dL Calcium (8.4-10.2) mg/dL Total Protein (6.3-8.2) g/dL Albumin (3.5-5.0) g/dL Assessment and Plan Assessment: 1. Generalized weakness and increased numbness likely secondary to MS exacerbation. Neurology services have been consulted. Patient started on IV steroids 2. Bradycardia. Cardiology services have been consulted 3. Hypothyroidism. TSH 4.92. Synthroid increased to 88 mics 4. History of pulmonary embolism. Patient maintained on Coumadin. 5. History of fibromyalgia 6. History of CVA expressive aphasia deficit 7. Diabetes mellitus type 2 8. Spinal spondylosis. Patient was evaluated by with orthopedic services. Per orthopedic services symptomatic treatment of back or neck pain reasonable. DVT prophylaxis Coumadin. GI prophylaxis Protonix cardiology and neurology service is consulted
[2020-12-01] MEDS: LORATADINE 10 MG TAB PO SCH (20:22)
[2020-12-01] MEDS: ACETAMINOPHEN TAB 500 MG TAB PO PRN (20:22)
[2020-12-01] MEDS: CITALOPRAM HYDROBROMIDE 20 MG TAB PO SCH (20:28)
[2020-12-01 20:56] LABS: Glucose,Whole Blood 295 mg/dL (75-99)
[2020-12-01] MEDS ORDERED: INSULIN ASPART (NovoLOG) 100 UNIT/ML VIAL SQ ONE (23:02)
[2020-12-02] MEDS: PANTOPRAZOLE 40 MG TABLET PO SCH (05:52)
[2020-12-02] MEDS: LEVOTHYROXINE 88 MCG TAB PO SCH (05:52)
[2020-12-02 07:05] LABS: Glucose,Whole Blood 177 mg/dL (75-99)
[2020-12-02 07:19] LABS: HCT 40.3 % (34.0-46.0); HGB 13.4 gm/dL (11.4-16.0); MCH 29.8 pg (25.0-35.0); MCHC 33.3 g/dL (31.0-37.0); MCV 89.4 fL (80.0-100.0); Mean Platelet Volume 12.2; Platelet Count 104 k/uL (150-450); RDW 13.5 % (11.5-15.5); WBC 4.8 k/uL (3.8-10.6)
[2020-12-02 07:28] LABS: INR 2.1 (<1.2); Prothrombin Time 20.4 sec (9.0-12.0)
[2020-12-02] MEDS: INSULIN ASPART (NovoLOG) 100 UNIT/ML VIAL SQ SCH ×4 (08:21→21:11)
[2020-12-02] MEDS: PREGABALIN 100 MG CAP PO SCH ×3 (08:21→21:11)
[2020-12-02] MEDS: ASPIRIN 81 MG PO SCH (08:22)
[2020-12-02] MEDS: FLUTICASONE 50MCG/SPRAY NASAL 16GM EA NOSTRIL SCH (08:22)
[2020-12-02] MEDS: METHYLPHENIDATE HCL 10 MG TAB PO SCH ×3 (08:22→16:32)
[2020-12-02] MEDS: FUROSEMIDE 40 MG TAB PO SCH ×2 (08:22→16:32)
[2020-12-02] MEDS: CHOLECALCIFEROL 25 MCG (1000 IU) TABLET PO SCH (08:22)
[2020-12-02] MEDS: FOLIC ACID 1 MG TAB PO SCH (08:22)
[2020-12-02] MEDS: POTASSIUM CHLORIDE ER 20 MEQ TAB.ER PO SCH ×4 (08:23→18:58)
[2020-12-02 12:28] LABS: Glucose,Whole Blood 236 mg/dL (75-99)
--- NOTE | 2020-12-02 12:48 | P.PN ---
Subjective Progress Note Date: 12/02/20 This is a 65-year-old female patient who presented to the ER with complaints of increased weakness and numbness over the past week patient does have past medical history of MS and stroke expressive aphasia. Patient follows normally with Dr. Downing. Additional medical history includes fibromyalgia, chest pain, osteoarthritis, pulmonary embolism and thyroid disorder. Chest x-ray was performed showing no active cardiopulmonary disease. No change. COVID-19 negative. UA negative. TSH 4.920 will increase Synthroid to 88 mg. At this time neurology services will be consulted. Cardiology services also consulted for bradycardia. Home medications resumed. Patient denies any chest pain or shortness of breath. Patient denies nausea vomiting or diarrhea. Patient denies any urinary burning or frequency On 11/26/2020 patient is alert and oriented 3. Patient is currently sitting up on side about working with physical therapy. Head CT and spinal MRIs ordered per neurology services. Orthopedic service is consulted for spinal spondylosis. At this time patient denies chest pain or shortness breath. Patient denies nausea vomiting or diarrhea. Patient denies urinary burning or frequency. Repeat labs have been ordered. Awaiting neurology input regards to steroids On 11/27/2020 Patient was seen and examined on the medical floor, he is alert and oriented x 3 in no distress, he denies any complaints there is no fever or chills no headache or dizziness no chest pain no shortness of breath no palpitation no cough no nausea or vomiting no abdominal pain no diarrhea no blood in the stools no burning with urination no frequency or urgency and no hematuria, she is complaining of severe weakness from the neck down, she is complaining of generalized body ache, otherwise no specific complaints On 11/28/2020 Patient was seen and examined on the medical floor, he is alert and oriented x 3 in no distress, he denies any complaints there is no fever or chills no headache or dizziness no chest pain no shortness of breath no palpitation no cough no nausea or vomiting no abdominal pain no diarrhea no blood in the stools no burning with urination no frequency or urgency and no hematuria, patient is still complaining of generalized weakness and generalized body aches without any complaint, she stated that she is improving with IV steroids will continue with current regimen On 11/29/2020 Patient was seen and examined on the medical floor, he is alert and oriented x 3 in no distress, he denies any complaints there is no fever or chills no headache or dizziness no chest pain no shortness of breath no palpitation no cough no nausea or vomiting no abdominal pain no diarrhea no b lood in the stools no burning with urination no frequency or urgency and no hematuria, patient is still complaining of generalized weakness and generalized body aches without any complaint, she stated that she is improving with IV steroids will continue with current regimen On 11/30/2020 Patient was seen and examined on the medical floor, he is alert and oriented x 3 in no distress, he denies any complaints there is no fever or chills no headache or dizziness no chest pain no shortness of breath no palpitation no cough no nausea or vomiting no abdominal pain no diarrhea no blood in the stools no burning with urination no frequency or urgency and no hematuria, there is some improvement in generalized body weakness and pain, at this time will continue with current IV steroids follow in a.m. On 12/01/2020 agent was seen and examined on the medical floor she is alert responsive in no apparent distress she is stating that her weakness is improving with IV steroids she is complaining of generalized pain otherwise she denies any specific complaints. Initially neurologist wanted a lumbar puncture to confirm or rule out the diagnosis of multiple sclerosis however on today's note neurolo gist is stating there is no need for lumbar puncture at this time. Coumadin was held yesterday in anticipation of lumbar puncture. At this time will resume Coumadin 5 mg by mouth daily, recheck labs CBC CMP and PT/INR in a.m. 12/02/2020 patient alert and oriented resting comfortably in bed. Patient maintained on IV Lasix. Coumadin has been resumed. Neurology patient to be transitioned to by mouth steroids upon completion of IV steroid doses. Patient denies chest pain or shortness of breath. Patient denies nausea vomiting or diarrhea. Patient denies any urinary burning or frequency Objective - Vital Signs Vital signs: Vital Signs Temp 98 F 12/02/20 04:52 Pulse 46 L 12/02/20 08:00 Resp 16 12/02/20 08:00 BP 139/78 12/02/20 04:52 Pulse Ox 94 L 12/02/20 04:52 Intake & Output 12/01/20 12/02/20 12/02/20 18:59 06:59 18:59 Intake Total 240 Balance 240 Weight 113.398 kg Intake: Oral 240 Other: Voiding Method Toilet Toilet Toilet # Voids 3 # Bowel Movements 1 - Exam Head normocephalic Neck supple Lungs clear to auscultation bilaterally no wheezing or crackles Heart regular rate and rhythm S1-S2, no rub or gallop Abdomen is soft nontender nondistended positive bowel sounds no hepatosplenomegaly Extremities no edema Neuro alert and orientated to 3. Expressive aphasia - Labs CBC & Chem 7: 12/02/20 06:39 12/01/20 06:19 Labs: Abnormal Lab Results - Last 24 Hours (Table) 12/01/20 12/01/20 12/02/20 Range/Units 17:00 20:53 06:39 Plt Count 104 L (150-450) k/uL PT (9.0-12.0) sec INR (<1.2) POC Glucose (mg/dL) 114 H 295 H (75-99) mg/dL 12/02/20 12/02/20 12/02/20 Range/Units 06:39 07:04 12:27 Plt Count (150-450) k/uL PT 20.4 H (9.0-12.0) sec INR 2.1 H (<1.2) POC Glucose (mg/dL) 177 H 236 H (75-99) mg/dL Assessment and Plan Assessment: 1. Generalized weakness and increased numbness likely secondary to MS exacerbat ion. Neurology services have been consulted. Patient started on IV steroids 2. Bradycardia. Cardiology services have been consulted she was evaluated by cardiology services no further recommendations or testing at this time 3. Hypothyroidism. TSH 4.92. Synthroid increased to 88 mics 4. History of pulmonary embolism. Patient maintained on Coumadin. 5. History of fibromyalgia 6. History of CVA expressive aphasia deficit 7. Diabetes mellitus type 2 8. Spinal spondylosis. Patient was evaluated by with orthopedic services. Per orthopedic services symptomatic treatment of back or neck pain reasonable. DVT prophylaxis Coumadin. GI prophylaxis Protonix cardiology and neurology service is consulted Anticipate discharge in the next 24-48 hours
[2020-12-02 15:00] LABS: Lymphocytes # (M) 0.43 k/uL (1.0-4.8); Monocytes # (M) 0.24 k/uL (0-1.0); Neutrophils # (M) 4.13 k/uL (1.3-7.7); Neutrophils % (M) 86 %; Nucleated Red Blood Cells 0 /100 WBC (0-0); Total Cells Counted 100
[2020-12-02] MEDS: FERROUS SULFATE 325 MG TAB PO SCH (16:32)
[2020-12-02] MEDS: BACLOFEN 10 MG TAB PO SCH (16:32)
[2020-12-02] MEDS: MONTELUKAST 10 MG TAB PO SCH (16:33)
[2020-12-02 16:43] LABS: ALT 78 U/L (4-34); AST 58 U/L (14-36); African American GFR (CKD) 59 (>60 ml/min/1.73 sqM); Albumin 3.4 g/dL (3.5-5.0); Albumin/Globulin Ratio 1.5; Alkaline Phosphatase 73 U/L (38-126); Anion Gap 3 mmol/L; Blood Urea Nitrogen 38 mg/dL (7-17); Calcium 8.6 mg/dL (8.4-10.2); Carbon Dioxide 36 mmol/L (22-30); Chloride 100 mmol/L (98-107); Globulin 2.2 g/dL; Glucose 94 mg/dL (74-99); Non-African American GFR(CKD) 51 (>60 ml/min/1.73 sqM); Potassium 3.3 mmol/L (3.5-5.1); Sodium 139 mmol/L (137-145); Total Protein 5.6 g/dL (6.3-8.2)
[2020-12-02] MEDS ORDERED: Potassium Replacement Protocol 1 EACH MISC MISCELLANE PRN ×2 (16:55→17:33)
[2020-12-02 17:14] LABS: Glucose,Whole Blood 105 mg/dL (75-99)
--- NOTE | 2020-12-02 17:21 | P.PN ---
Subjective Progress Note Date: 12/02/20 12/02/2020: Patient offers no complaints. Patient is laying comfortably in the bed. Patient continues to have expressive fluent aphasia as per examination. 12/01/2020: Patient was seen for a follow-up. Initially seen by Dr. Kannan Reaves. Please refer to his note for details. Patient has reported history of MS. She follows up with Dr. Jefferson. Patient has presented with some aphasia, with possible MS exacerbation. Patient is laying in the bed. She states "I hurt all the time". "I hurt so bad". Patient has fragmented and tangential thoughts. Patient at times speaks random stuff which does not make sense. Please refer to examination below. Objective - Vital Signs Vital signs: Vital Signs Temp 98.0 F 12/02/20 12:52 Pulse 54 L 12/02/20 12:52 Resp 17 12/02/20 12:52 BP 137/78 12/02/20 12:52 Pulse Ox 95 12/02/20 12:52 Intake & Output 12/01/20 12/02/20 12/02/20 18:59 06:59 18:59 Intake Total 240 Balance 240 Weight 113.398 kg Intake: Oral 240 Other: Voiding Method Toilet Toilet Toilet # Voids 3 # Bowel Movements 1 - Exam Patient is alert and awake, in no distress. Patient appears somewhat manic, hyper verbal, hyperalert. Patient continues to have significant fluent aphasia, states "I'm here". She speaks with word salad, stating "house, water to clean, big house to work it better". Patient having perseveration, difficulty with word finding. She can follow directions. Her pupils are round and reacting, visual lazar are full, face is symmetric. Tongue protrudes the midline. Palatal elevation is normal. Hearing is decreased. Shoulder shrug normal. Muscle strength is normal in the arms and legs with no drift. Reflexes are 2+ to 3 all over in the upper limbs. 3 at the knees, 2+ ankles and plantars are downgoing. Patient has peripheral edema. Patient's face is flushed, possibly due to use of steroids. - Labs CBC & Chem 7: 12/02/20 06:39 12/02/20 16:20 Labs: Abnormal Lab Results - Last 24 Hours (Table) 12/01/20 12/01/20 12/02/20 Range/Units 17:00 20:53 06:39 Plt Count 104 L (150-450) k/uL Lymphocytes # (Manual) 0.43 L (1.0-4.8) k/uL PT (9.0-12.0) sec INR (<1.2) POC Glucose (mg/dL) 114 H 295 H (75-99) mg/dL 12/02/20 12/02/20 12/02/20 Range/Units 06:39 07:04 12:27 Plt Count (150-450) k/uL Lymphocytes # (Manual) (1.0-4.8) k/uL PT 20.4 H (9.0-12.0) sec INR 2.1 H (<1.2) POC Glucose (mg/dL) 177 H 236 H (75-99) mg/dL Assessment and Plan Assessment: * Reported history of multiple sclerosis, possible exacerbation. * History of left MCA stroke in 2006 with residual significant expressive aphasia * Diagnosis of relapsing remitting multiple sclerosis diagnosed by her outside neurologist * Supratherapeutic INR (4.1)--trending up * Hypertension * Acute on Chronic kidney insuffiency * Urinary incontinence * Hyperlipidemia * Obstructive sleep apnea * DVT on Coumadin * Fibromyalgia Plan: * Patient is currently on Solu-Medrol 500 mg twice a day. I would recommend treating only for 3 days and stopping Solu-Medrol thereafter. No need for placement of oral steroids stepper. * MRI the brain w/ and w/o: As reported as old large left middle cerebral artery distribution infarct without change. No acute intracranial abnormality. * MRI Cervical spine w/ and w/o and cervical spine with and without is reported as frontal changes in the cervical spine with multilevels small posterior disc herniation. No significant spinal stenosis at. No change. * MRI of the lumbar spine is reported as mild degenerative disc changes. No spinal stenosis. Small posterior disc bulging and herniation at the L5-S1. No significant change compared to old exam. I personally reviewed the MRI images and I am still not convinced that the patient has multiple sclerosis radiographically. * TSH is 4.92 which is elevated and free T4 is 1.13 (normal). * Vitamin B12 is 403 on 05/04/2020 which is normal. Also red blood cell folate is 829 normal on 05/2020. * NENA: negative, jbce-ppstds-hmdiclld DNA <1.0, cANCA and pANC <1:20, creatinine kinase 113 (normal), WILLIAM, Terrie 1 antibody negative, rheumatoid factor 5 (normal), [employer] EDUC[employer] CASE MANAGER antibody negative, anti-Lou antibody negative, lupus anticoagulant, SSA and SSB antibody negative, SPECIAL EDUCATION CASE MANAGER antibody negative. ESR 17 and CRP <0.4 (normal), anti-PM/Scl 100 ab negative. Patient lupus anticoagulant PTT 55 which is elevated, patient delusional Bryan's viper venom is 57 which is elevated. Lupus anticoagulant is negative. Patient seen by admitting representative, and does not have any evidence of lupus. * Patient is on Coumadin, INR therapeutic 2.1. * Neurologically clear, when she completes her course of steroids.
[2020-12-02] MEDS ORDERED: WARFARIN 5 MG TAB PO SCH (18:00)
[2020-12-02] MEDS ORDERED: WARFARIN 5 MG TAB PO ONE (18:00)
[2020-12-02 20:09] LABS: Glucose,Whole Blood 313 mg/dL (75-99)
[2020-12-02 20:18] LABS: African American GFR (CKD) 54.2 (60.0-200.0); Albumin 3.4 g/dL (3.80-4.90); Anion Gap 10.8 mmol/L (4.00-12.00); BUN/Creat Ratio 28.33 Ratio (12.00-20.00); Calcium 9.1 mg/dL (8.7-10.3); Carbon Dioxide 32.2 mmol/L (21.6-31.8); Globulin 1.7 g/dL (1.6-3.3); Non-African American GFR(CKD) 46.7 (60.0-200.0); Potassium 3.4 mmol/L (3.5-5.5); Total Bilirubin 0.8 mg/dL (0.2-1.2); Total Protein 5.1 g/dL (6.2-8.2)
[2020-12-02] MEDS: LORATADINE 10 MG TAB PO SCH (21:11)
[2020-12-02] MEDS: CITALOPRAM HYDROBROMIDE 20 MG TAB PO SCH (21:11)
[2020-12-03] MEDS: LEVOTHYROXINE 88 MCG TAB PO SCH (05:57)
[2020-12-03] MEDS: PANTOPRAZOLE 40 MG TABLET PO SCH (05:57)
[2020-12-03 07:31] LABS: Glucose,Whole Blood 181 mg/dL (75-99)
[2020-12-03 08:10] LABS: Basophils % (A) 0 %; Eosinophils % (A) 0 %; HCT 41.9 % (34.0-46.0); HGB 13.6 gm/dL (11.4-16.0); Lymphocytes # (A) 0.4 k/uL (1.0-4.8); Lymphocytes % (A) 8 %; MCH 29.7 pg (25.0-35.0); MCHC 32.6 g/dL (31.0-37.0); MCV 91.1 fL (80.0-100.0); Mean Platelet Volume 11.5; Monocytes # (A) 0.2 k/uL (0-1.0); Monocytes % (A) 3 %; Neutrophils # (A) 4.1 k/uL (1.3-7.7); Neutrophils % (A) 88 %; Platelet Count 100 k/uL (150-450); RBC 4.59 m/uL (3.80-5.40); RDW 13.7 % (11.5-15.5); WBC 4.7 k/uL (3.8-10.6)
[2020-12-03 08:11] LABS: INR 2.5 (<1.2); Prothrombin Time 24.4 sec (9.0-12.0)
[2020-12-03] MEDS: INSULIN ASPART (NovoLOG) 100 UNIT/ML VIAL SQ SCH ×4 (08:29→21:36)
[2020-12-03] MEDS: CHOLECALCIFEROL 25 MCG (1000 IU) TABLET PO SCH (08:30)
[2020-12-03] MEDS: ASPIRIN 81 MG PO SCH (08:30)
[2020-12-03] MEDS: FUROSEMIDE 40 MG TAB PO SCH ×2 (08:30→17:14)
[2020-12-03] MEDS: PREGABALIN 100 MG CAP PO SCH ×3 (08:30→20:42)
[2020-12-03] MEDS: FLUTICASONE 50MCG/SPRAY NASAL 16GM EA NOSTRIL SCH (08:30)
[2020-12-03] MEDS: POTASSIUM CHLORIDE ER 20 MEQ TAB.ER PO SCH ×2 (08:30→17:14)
[2020-12-03] MEDS: METHYLPHENIDATE HCL 10 MG TAB PO SCH ×3 (08:30→15:40)
[2020-12-03] MEDS: FOLIC ACID 1 MG TAB PO SCH (08:30)
[2020-12-03 09:13] LABS: ALT 95 U/L (4-34); AST 51 U/L (14-36); African American GFR (CKD) 63 (>60 ml/min/1.73 sqM); Albumin 3.1 g/dL (3.5-5.0); Albumin/Globulin Ratio 1.6; Alkaline Phosphatase 70 U/L (38-126); Anion Gap 4 mmol/L; Blood Urea Nitrogen 37 mg/dL (7-17); Calcium 8.2 mg/dL (8.4-10.2); Carbon Dioxide 35 mmol/L (22-30); Chloride 100 mmol/L (98-107); Glucose 169 mg/dL (74-99); Non-African American GFR(CKD) 55 (>60 ml/min/1.73 sqM); Potassium 3.6 mmol/L (3.5-5.1); Sodium 139 mmol/L (137-145); Total Bilirubin 0.9 mg/dL (0.2-1.3); Total Protein 5.1 g/dL (6.3-8.2)
[2020-12-03 11:24] LABS: Glucose,Whole Blood 324 mg/dL (75-99)
[2020-12-03 17:10] LABS: Glucose,Whole Blood 206 mg/dL (75-99)
[2020-12-03] MEDS: MONTELUKAST 10 MG TAB PO SCH (17:14)
[2020-12-03] MEDS: BACLOFEN 10 MG TAB PO SCH (17:14)
[2020-12-03] MEDS: FERROUS SULFATE 325 MG TAB PO SCH (17:14)
[2020-12-03] MEDS: ACETAMINOPHEN TAB 500 MG TAB PO PRN (17:24)
[2020-12-03] MEDS ORDERED: WARFARIN 5 MG TAB PO ONE (18:00)
--- NOTE | 2020-12-03 19:23 | P.PN ---
Subjective Progress Note Date: 12/03/20 This is a 65-year-old female patient who presented to the ER with complaints of increased weakness and numbness over the past week patient does have past medical history of MS and stroke expressive aphasia. Patient follows normally with Dr. Downing. Additional medical history includes fibromyalgia, chest pain, osteoarthritis, pulmonary embolism and thyroid disorder. Chest x-ray was performed showing no active cardiopulmonary disease. No change. COVID-19 negative. UA negative. TSH 4.920 will increase Synthroid to 88 mg. At this time neurology services will be consulted. Cardiology services also consulted for bradycardia. Home medications resumed. Patient denies any chest pain or shortness of breath. Patient denies nausea vomiting or diarrhea. Patient denies any urinary burning or frequency On 11/26/2020 patient is alert and oriented 3. Patient is currently sitting up on side about working with physical therapy. Head CT and spinal MRIs ordered per neurology services. Orthopedic service is consulted for spinal spondylosis. At this time patient denies chest pain or shortness breath. Patient denies nausea vomiting or diarrhea. Patient denies urinary burning or frequency. Repeat labs have been ordered. Awaiting neurology input regards to steroids On 11/27/2020 Patient was seen and examined on the medical floor, he is alert and oriented x 3 in no distress, he denies any complaints there is no fever or chills no headache or dizziness no chest pain no shortness of breath no palpitation no cough no nausea or vomiting no abdominal pain no diarrhea no blood in the stools no burning with urination no frequency or urgency and no hematuria, she is complaining of severe weakness from the neck down, she is complaining of generalized body ache, otherwise no specific complaints On 11/28/2020 Patient was seen and examined on the medical floor, he is alert and oriented x 3 in no distress, he denies any complaints there is no fever or chills no headache or dizziness no chest pain no shortness of breath no palpitation no cough no nausea or vomiting no abdominal pain no diarrhea no blood in the stools no burning with urination no frequency or urgency and no hematuria, patient is still complaining of generalized weakness and generalized body aches without any complaint, she stated that she is improving with IV steroids will continue with current regimen On 11/29/2020 Patient was seen and examined on the medical floor, he is alert and oriented x 3 in no distress, he denies any complaints there is no fever or chills no headache or dizziness no chest pain no shortness of breath no palpitation no cough no nausea or vomiting no abdominal pain no diarrhea no b lood in the stools no burning with urination no frequency or urgency and no hematuria, patient is still complaining of generalized weakness and generalized body aches without any complaint, she stated that she is improving with IV steroids will continue with current regimen On 11/30/2020 Patient was seen and examined on the medical floor, he is alert and oriented x 3 in no distress, he denies any complaints there is no fever or chills no headache or dizziness no chest pain no shortness of breath no palpitation no cough no nausea or vomiting no abdominal pain no diarrhea no blood in the stools no burning with urination no frequency or urgency and no hematuria, there is some improvement in generalized body weakness and pain, at this time will continue with current IV steroids follow in a.m. On 12/01/2020 agent was seen and examined on the medical floor she is alert responsive in no apparent distress she is stating that her weakness is improving with IV steroids she is complaining of generalized pain otherwise she denies any specific complaints. Initially neurologist wanted a lumbar puncture to confirm or rule out the diagnosis of multiple sclerosis however on today's note neurolo gist is stating there is no need for lumbar puncture at this time. Coumadin was held yesterday in anticipation of lumbar puncture. At this time will resume Coumadin 5 mg by mouth daily, recheck labs CBC CMP and PT/INR in a.m. 12/02/2020 patient alert and oriented resting comfortably in bed. Patient maintained on IV Lasix. Coumadin has been resumed. Neurology patient to be transitioned to by mouth steroids upon completion of IV steroid doses. Patient denies chest pain or shortness of breath. Patient denies nausea vomiting or diarrhea. Patient denies any urinary burning or frequency On 12/03/2020atient was seen and examined on the medical floor, she is alert and oriented x 3 in no distress, she is complaining of generalized weakness otherwise she denies any complaints there is no fever or chills no headache or dizziness no chest pain no shortness of breath no palpitation no cough no nausea or vomiting no abdominal pain no diarrhea no blood in the stools no burning with urination no frequency or urgency and no hematuria, there is no weakness or numbness in any of the extremities no change in vision speech or gait. Patient has chronic difficulty with her speech related to her previous stroke but no acute abnormality. Objective - Vital Signs Vital signs: Vital Signs Temp 98.2 F 12/03/20 12:01 Pulse 65 12/03/20 12:01 Resp 18 12/03/20 12:01 BP 135/72 12/03/20 12:01 Pulse Ox 95 12/03/20 12:01 Intake & Output 12/02/20 12/03/20 12/03/20 18:59 06:59 18:59 Intake Total 700 Balance 700 Intake: Intake, IV Titration 100 Amount methylPREDNISolone SOD 100 SUCC 500 mg In Sodium Chloride 0.9% 100 ml @ 100 mls/hr IVPB 0900,2100 JH Rx#:[id number] Oral 600 Other: Voiding Method Toilet # Voids 2 2 1 # Bowel Movements 1 - Exam Head normocephalic and atraumatic Neck supple no JVD no goiter Lungs clear to auscultation bilaterally no wheezing or crackles Heart regular rate and rhythm S1-S2, no rub or gallop Abdomen is soft nontender nondistended positive bowel sounds no hepatosplenomegaly Extremities no edema Neuro alert and orientated to 3. Expressive aphasia - Labs CBC & Chem 7: 12/03/20 06:55 12/03/20 06:55 Labs: Abnormal Lab Results - Last 24 Hours (Table) 12/02/20 12/02/20 12/02/20 Range/Units 06:39 16:20 17:13 Plt Count (150-450) k/uL Lymphocytes # (1.0-4.8) k/uL PT (9.0-12.0) sec INR (<1.2) Potassium 3.4 L 3.3 L (3.5-5.5) mmol/L Carbon Dioxide 32.2 H 36 H (21.6-31.8) mmol/L BUN 34.0 H 38 H (9.0-27.0) mg/dL Creatinine 1.12 H (0.52-1.04) mg/dL Est GFR (CKD-EPI)AfAm 54.2 L (60.0-200.0) Est GFR (CKD-EPI)NonAf 46.7 L (60.0-200.0) BUN/Creatinine Ratio 28.33 H (12.00-20.00) Ratio Glucose 177 H (70-110) mg/dL POC Glucose (mg/dL) 105 H (75-99) mg/dL Calcium (8.4-10.2) mg/dL AST 58 H (14-36) U/L ALT 57 H 78 H (8-44) U/L Total Protein 5.1 L 5.6 L (6.2-8.2) g/dL Albumin 3.40 L 3.4 L (3.80-4.90) g/dL 12/02/20 12/02/20 12/03/20 Range/Units 20:05 22:58 06:55 Plt Count 100 L (150-450) k/uL Lymphocytes # 0.4 L (1.0-4.8) k/uL PT (9.0-12.0) sec INR (<1.2) Potassium 3.1 L (3.5-5.5) mmol/L Carbon Dioxide (21.6-31.8) mmol/L BUN (9.0-27.0) mg/dL Creatinine (0.52-1.04) mg/dL Est GFR (CKD-EPI)AfAm (60.0-200.0) Est GFR (CKD-EPI)NonAf (60.0-200.0) BUN/Creatinine Ratio (12.00-20.00) Ratio Glucose (70-110) mg/dL POC Glucose (mg/dL) 313 H (75-99) mg/dL Calcium (8.4-10.2) mg/dL AST (14-36) U/L ALT (8-44) U/L Total Protein (6.2-8.2) g/dL Albumin (3.80-4.90) g/dL 12/03/20 12/03/20 12/03/20 Range/Units 06:55 06:55 07:19 Plt Count (150-450) k/uL Lymphocytes # (1.0-4.8) k/uL PT 24.4 H (9.0-12.0) sec INR 2.5 H (<1.2) Potassium (3.5-5.5) mmol/L Carbon Dioxide 35 H (21.6-31.8) mmol/L BUN 37 H (9.0-27.0) mg/dL Creatinine 1.06 H (0.52-1.04) mg/dL Est GFR (CKD-EPI)AfAm (60.0-200.0) Est GFR (CKD-EPI)NonAf (60.0-200.0) BUN/Creatinine Ratio (12.00-20.00) Ratio Glucose 169 H (70-110) mg/dL POC Glucose (mg/dL) 181 H (75-99) mg/dL Calcium 8.2 L (8.4-10.2) mg/dL AST 51 H (14-36) U/L ALT 95 H (8-44) U/L Total Protein 5.1 L (6.2-8.2) g/dL Albumin 3.1 L (3.80-4.90) g/dL 12/03/20 Range/Units 11:23 Plt Count (150-450) k/uL Lymphocytes # (1.0-4.8) k/uL PT (9.0-12.0) sec INR (<1.2) Potassium (3.5-5.5) mmol/L Carbon Dioxide (21.6-31.8) mmol/L BUN (9.0-27.0) mg/dL Creatinine (0.52-1.04) mg/dL Est GFR (CKD-EPI)AfAm (60.0-200.0) Est GFR (CKD-EPI)NonAf (60.0-200.0) BUN/Creatinine Ratio (12.00-20.00) Ratio Glucose (70-110) mg/dL POC Glucose (mg/dL) 324 H (75-99) mg/dL Calcium (8.4-10.2) mg/dL AST (14-36) U/L ALT (8-44) U/L Total Protein (6.2-8.2) g/dL Albumin (3.80-4.90) g/dL Assessment and Plan Assessment: 1. Generalized weakness and increased numbness likely secondary to MS exacerbation. Neurology services have been consulted. Patient started on IV steroids 2. Bradycardia. Cardiology services have been consulted she was evaluated by cardiology services no further recommendations or testing at this time 3. Hypothyroidism. TSH 4.92. Synthroid increased to 88 mics 4. History of pulmonary embolism. Patient maintained on Coumadin. 5. History of fibromyalgia 6. History of CVA expressive aphasia deficit 7. Diabetes mellitus type 2 8. Spinal spondylosis. Patient was evaluated by with orthopedic services. Per orthopedic services symptomatic treatment of back or neck pain reasonable. DVT prophylaxis Coumadin. GI prophylaxis Protonix cardiology and neurology service is consulted Anticipate discharge in the next 24-48 hours
[2020-12-03] MEDS: CITALOPRAM HYDROBROMIDE 20 MG TAB PO SCH (20:41)
[2020-12-03] MEDS: LORATADINE 10 MG TAB PO SCH (20:42)
[2020-12-03 20:57] LABS: Glucose,Whole Blood 233 mg/dL (75-99)
[2020-12-04] MEDS: PANTOPRAZOLE 40 MG TABLET PO SCH (05:44)
[2020-12-04] MEDS: LEVOTHYROXINE 88 MCG TAB PO SCH (05:44)
--- NOTE | 2020-12-04 06:07 | P.CONS ---
History of Present Illness - Chief Complaint Gait disturbance - History of Present Illness I had the opportunity to see patient for inpatient rehab consultation with regard to gait disturbance. Patient admitted to [facility] November 24 with mental status change, aphasia, increasing weakness and numbness and known MS. Seen by neurology, Dr. Kannan Reaves but doubts MS exacerbation, but patient previously known by Dr. Elizabeth. Seen by cardiology for bradycardia. Seen by orthopedics for lumbar disc disease and bilateral radiculopathies. Seen by Dr. Rose who suspects low probability for connective tissue disease. Workup chest x-ray negative. C-spine CT with moderate severe DDD especially at C5, 6. Lumbar with moderate Simon disc disease especially L5. Absent gallbladder. Head CT with atrophy and old left infarct. C-spine MRI DDD C3 herniation. Brain MRI atrophy and old left MCA infarct. Lumbar MRI mild DDD and L5 bulge. Has started therapies. PT reports moderate assistance for bed mobility and minimal assistance for gait 40 feet with IV pole. OT reports moderate assistance for upper dressing, 2 person maximal assistance for lower dressing and bathing, total assistance for toileting. No complaints of pain in right hand and foot. Previous functional history unobtainable from patient. Review of Systems Review of systems: ENT: Denies sneezes or discharge. Eyes: Denies discharge or photophobia. Cardiac: Denies chest pain or palpitation. Pulmonary: Denies cough or shortness of breath. Breast: Denies discharge or lumps. Gastrointestinal: Denies nausea, emesis, constipation, diarrhea. Genitourinary: Denies discharge or frequency. Musculoskeletal: Denies muscle or bone aches. Neurologic: Confusion, generalized weakness and numbness. Endocrine: Denies shakes or sweats. Oncology: Denies cancers. Dermatologic: Denies rash, itching, pruritus. ALLERGY/immunology: Denies sneezes, rashes. Past Medical History Past Medical History: Chest Pain / Angina, CVA/TIA, Fibromyalgia, Musculoskeletal Disorder, Neurologic Disorder, Osteoarthritis (OA), Pulmonary Embolus (PE), Sleep Apnea/CPAP/BIPAP, Thyroid Disorder Additional Past Medical History / Comment(s): MULTIPLE SCLEROSIS, 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 PAINFUL FOR HER TO LIE FLAT. HX OF NOSEBLEED JUL 2014 AND RECEIVED PLASMA TRANSFUSION. 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 MDRO Source:: URINE Past Surgical History: Ablation, Appendectomy, Cholecystectomy, Hernia Repair, Hysterectomy Additional Past Surgical History / Comment(s): Incisional hernia repair, laparoscopic lysis of adhesions in 1987, ganglion cyst removal of the left wrist, patent foramen ovale patch in 2006, RF ablation for back pain. Past Anesthesia/Blood Transfusion Reactions: No Reported Reaction Past Psychological History: Depression Additional Psychological History / Comment(s): CELEXA to help sleep at night per . PT HAS DIFFICULTY W/SPEECH . HAS TO LOOK AT DIETARY MENU TO ORDER CAN'T DO IT BY PHONE. Pt resides with her spouse. She uses a cane to ambulate. She also has a walker.cpap machine Spouse drives her to appointments. Spouse assists her with some ADLs when needed. Smoking Status: Never smoker Past Alcohol Use History: None Reported Past Drug Use History: None Reported Additional Drug Use History / Comment(s): Lives at home with her requires some assistance with ADLs at times - Past Family History Mother Family Medical History: Hypertension Additional Family Medical History / Comment(s): osteoporosis Father Family Medical History: Dementia, Diabetes Mellitus Medications and Allergies Home Medications Medication Instructions Recorded Confirmed Type Aspirin 81 mg PO DAILY@0900 11/08/13 11/24/20 History Baclofen [Lioresal] 10 mg PO DAILY@169911/08/13 11/24/20 History Citalopram Hydrobromide [CeleXA] 40 mg PO HS@2100 11/08/13 11/24/20 History Ferrous Sulfate [Feosol] 325 mg PO DAILY@169911/08/13 11/24/20 History Furosemide [Lasix] 40 mg PO BID@0900,169911/08/13 11/24/20 History Montelukast [Singulair] 10 mg PO DAILY@169911/08/13 11/24/20 History Pantoprazole Sodium [Protonix] 40 mg PO DAILY@0600 11/08/13 11/24/20 History Potassium Chloride 20 meq PO BID@0900,169911/08/13 11/24/20 History Fluticasone Nasal [place] [Flonase 1 spray EA NOSTRIL DAILY@0900 11/18/15 11/24/20 History Nasal [place]] Methylphenidate HCl [Ritalin] 20 mg PO TID@0900,1200,1500 11/18/15 11/24/20 History Pregabalin [Lyrica] 100 mg PO TID@0900,1700,2100 07/13/16 11/24/20 History Folic Acid 0.4 mg PO DAILY@0900 08/18/16 11/24/20 History Fexofenadine HCl 180 mg PO DAILY@209905/11/19 11/24/20 History Levothyroxine Sodium [Levoxyl] 75 mcg PO DAILY@0900 05/11/19 11/24/20 History Warfarin [Coumadin] 7.5 mg PO DAILY@1700 12/13/19 11/24/20 History Nitroglycerin Sl Tabs [Nitrostat] 0.4 mg SUBLINGUAL Q5M PRN 04/29/20 11/24/20 History fentaNYL 50MCG/HR PATCH [Duragesic 1 patch TRANSDERM Q72H 05/01/20 11/24/20 History 50MCG/HR] Cholecalciferol [Vitamin D3 (25 50 mcg PO DAILY@0911/24/20 11/24/20 History Mcg = 1000 Iu)] Allergies Allergy/AdvReac Type Severity Reaction Status Date / Time adhesive Allergy SKIN Verified 11/24/20 22:15 PEELING Physical Exam Vitals: Vital Signs Temp Pulse Resp BP Pulse Ox 12/04/20 05:00 97.9 F 49 L 16 129/72 94 L 12/03/20 20:02 98 F 60 16 118/70 94 L 12/03/20 12:01 98.2 F 65 18 135/72 95 Intake and Output 12/03/20 12/03/20 12/04/20 14:59 22:59 06:59 Intake Total 100 480 Balance 100 480 Intake: Intake, IV Titration 100 Amount methylPREDNISolone SOD 100 SUCC 500 mg In Sodium Chloride 0.9% 100 ml @ 100 mls/hr IVPB ONCE ONE Rx#:[id number] Oral 480 Other: # Voids 1 1 1 # Bowel Movements 1 Skin: Good color, texture, turgor. General: Overweight build and comfortable appearance. Head: Normocephalic, atraumatic. Eyes: Symmetric. Pupils equal round. Ears: Symmetric. Hearing within normal limits. Mouth: Clear. Neck: Supple. Carotid without bruit. Cardiac: Regular rate and rhythm. Lungs: Clear anteriorly and posteriorly. Abdomen: Soft active nontender. Extremities: Normal tone. Legs hypersensitive to touch Neurological: Mental status: Confused historian. Difficulty with biographical information. Cranial nerves: Symmetric facial tone and trapezius. Motor: Active movement both arms. Slow and deliberate movement legs secondary to discomfort with movement. Sensation: Intact throughout. DTRs: Symmetric and equal throughout. Mobility: Unable to perform bed mobility due to hypersensitivity legs. Results CBC & Chem 7: 12/03/20 06:55 12/03/20 06:55 Labs: Abnormal Lab Results - Last 24 Hours (Table) 12/03/20 12/03/20 12/03/20 Range/Units 06:55 06:55 06:55 Plt Count 100 L (150-450) k/uL Lymphocytes # 0.4 L (1.0-4.8) k/uL PT 24.4 H (9.0-12.0) sec INR 2.5 H (<1.2) Carbon Dioxide 35 H (22-30) mmol/L BUN 37 H (7-17) mg/dL Creatinine 1.06 H (0.52-1.04) mg/dL Glucose 169 H (74-99) mg/dL POC Glucose (mg/dL) (75-99) mg/dL Calcium 8.2 L (8.4-10.2) mg/dL AST 51 H (14-36) U/L ALT 95 H (4-34) U/L Total Protein 5.1 L (6.3-8.2) g/dL Albumin 3.1 L (3.5-5.0) g/dL 12/03/20 12/03/20 12/03/20 Range/Units 07:19 11:23 17:09 Plt Count (150-450) k/uL Lymphocytes # (1.0-4.8) k/uL PT (9.0-12.0) sec INR (<1.2) Carbon Dioxide (22-30) mmol/L BUN (7-17) mg/dL Creatinine (0.52-1.04) mg/dL Glucose (74-99) mg/dL POC Glucose (mg/dL) 181 H 324 H 206 H (75-99) mg/dL Calcium (8.4-10.2) mg/dL AST (14-36) U/L ALT (4-34) U/L Total Protein (6.3-8.2) g/dL Albumin (3.5-5.0) g/dL 12/03/20 Range/Units 20:55 Plt Count (150-450) k/uL Lymphocytes # (1.0-4.8) k/uL PT (9.0-12.0) sec INR (<1.2) Carbon Dioxide (22-30) mmol/L BUN (7-17) mg/dL Creatinine (0.52-1.04) mg/dL Glucose (74-99) mg/dL POC Glucose (mg/dL) 233 H (75-99) mg/dL Calcium (8.4-10.2) mg/dL AST (14-36) U/L ALT (4-34) U/L Total Protein (6.3-8.2) g/dL Albumin (3.5-5.0) g/dL Assessment and Plan (1) Exacerbation of multiple sclerosis Current Visit: Yes Status: Acute Code(s): G35 - MULTIPLE SCLEROSIS SNOMED Code(s): 167428510 (2) Expressive aphasia Current Visit: Yes Status: Chronic Code(s): R47.01 - APHASIA SNOMED Code(s): 260607228 (3) Bradycardia Current Visit: No Status: Acute Code(s): R00.1 - BRADYCARDIA, UNSPECIFIED SNOMED Code(s): 30586908 Plan: Impression: 1. Gait disturbance. 2. MS. 3. Aphasia, probable stroke and history of previous stroke. 4. Bradycardia with history of chest pain and angina. 5. Osteoarthritis. 6. Sleep apnea. 7. Fibromyalgia. 8. History of PE. Comments and plan: At this time PT and OT are ongoing. We'll add speech therapy for communication and cognition as patient's appears to be severely confused. At this point I am unsure patient's previous living situation as she is unable to answer any questions. Must determine this and determine if there are any supports for return to home.
[2020-12-04 07:08] LABS: INR 2.6 (<1.2); Prothrombin Time 25.1 sec (9.0-12.0)
[2020-12-04 07:13] LABS: Glucose,Whole Blood 209 mg/dL (75-99)
[2020-12-04] MEDS: METHYLPHENIDATE HCL 10 MG TAB PO SCH ×3 (08:18→16:17)
[2020-12-04] MEDS: ASPIRIN 81 MG PO SCH (08:18)
[2020-12-04] MEDS: CHOLECALCIFEROL 25 MCG (1000 IU) TABLET PO SCH (08:18)
[2020-12-04] MEDS: FUROSEMIDE 40 MG TAB PO SCH ×2 (08:18→16:17)
[2020-12-04] MEDS: FOLIC ACID 1 MG TAB PO SCH (08:18)
[2020-12-04] MEDS: INSULIN ASPART (NovoLOG) 100 UNIT/ML VIAL SQ SCH ×4 (08:18→20:05)
[2020-12-04] MEDS: PREGABALIN 100 MG CAP PO SCH ×3 (08:19→20:05)
[2020-12-04] MEDS: POTASSIUM CHLORIDE ER 20 MEQ TAB.ER PO SCH ×2 (08:19→16:17)
[2020-12-04] MEDS: FLUTICASONE 50MCG/SPRAY NASAL 16GM EA NOSTRIL SCH (08:19)
[2020-12-04 11:28] LABS: Glucose,Whole Blood 319 mg/dL (75-99)
--- NOTE | 2020-12-04 11:56 | P.PN ---
Subjective Progress Note Date: 12/04/20 This is a 65-year-old female patient who presented to the ER with complaints of increased weakness and numbness over the past week patient does have past medical history of MS and stroke expressive aphasia. Patient follows normally with Dr. Downing. Additional medical history includes fibromyalgia, chest pain, osteoarthritis, pulmonary embolism and thyroid disorder. Chest x-ray was performed showing no active cardiopulmonary disease. No change. COVID-19 negative. UA negative. TSH 4.920 will increase Synthroid to 88 mg. At this time neurology services will be consulted. Cardiology services also consulted for bradycardia. Home medications resumed. Patient denies any chest pain or shortness of breath. Patient denies nausea vomiting or diarrhea. Patient denies any urinary burning or frequency On 11/26/2020 patient is alert and oriented 3. Patient is currently sitting up on side about working with physical therapy. Head CT and spinal MRIs ordered per neurology services. Orthopedic service is consulted for spinal spondylosis. At this time patient denies chest pain or shortness breath. Patient denies nausea vomiting or diarrhea. Patient denies urinary burning or frequency. Repeat labs have been ordered. Awaiting neurology input regards to steroids On 11/27/2020 Patient was seen and examined on the medical floor, he is alert and oriented x 3 in no distress, he denies any complaints there is no fever or chills no headache or dizziness no chest pain no shortness of breath no palpitation no cough no nausea or vomiting no abdominal pain no diarrhea no blood in the stools no burning with urination no frequency or urgency and no hematuria, she is complaining of severe weakness from the neck down, she is complaining of generalized body ache, otherwise no specific complaints On 11/28/2020 Patient was seen and examined on the medical floor, he is alert and oriented x 3 in no distress, he denies any complaints there is no fever or chills no headache or dizziness no chest pain no shortness of breath no palpitation no cough no nausea or vomiting no abdominal pain no diarrhea no blood in the stools no burning with urination no frequency or urgency and no hematuria, patient is still complaining of generalized weakness and generalized body aches without any complaint, she stated that she is improving with IV steroids will continue with current regimen On 11/29/2020 Patient was seen and examined on the medical floor, he is alert and oriented x 3 in no distress, he denies any complaints there is no fever or chills no headache or dizziness no chest pain no shortness of breath no palpitation no cough no nausea or vomiting no abdominal pain no diarrhea no b lood in the stools no burning with urination no frequency or urgency and no hematuria, patient is still complaining of generalized weakness and generalized body aches without any complaint, she stated that she is improving with IV steroids will continue with current regimen On 11/30/2020 Patient was seen and examined on the medical floor, he is alert and oriented x 3 in no distress, he denies any complaints there is no fever or chills no headache or dizziness no chest pain no shortness of breath no palpitation no cough no nausea or vomiting no abdominal pain no diarrhea no blood in the stools no burning with urination no frequency or urgency and no hematuria, there is some improvement in generalized body weakness and pain, at this time will continue with current IV steroids follow in a.m. On 12/01/2020 agent was seen and examined on the medical floor she is alert responsive in no apparent distress she is stating that her weakness is improving with IV steroids she is complaining of generalized pain otherwise she denies any specific complaints. Initially neurologist wanted a lumbar puncture to confirm or rule out the diagnosis of multiple sclerosis however on today's note neurolo gist is stating there is no need for lumbar puncture at this time. Coumadin was held yesterday in anticipation of lumbar puncture. At this time will resume Coumadin 5 mg by mouth daily, recheck labs CBC CMP and PT/INR in a.m. 12/02/2020 patient alert and oriented resting comfortably in bed. Patient maintained on IV Lasix. Coumadin has been resumed. Neurology patient to be transitioned to by mouth steroids upon completion of IV steroid doses. Patient denies chest pain or shortness of breath. Patient denies nausea vomiting or diarrhea. Patient denies any urinary burning or frequency On 12/03/2020atient was seen and examined on the medical floor, she is alert and oriented x 3 in no distress, she is complaining of generalized weakness otherwise she denies any complaints there is no fever or chills no headache or dizziness no chest pain no shortness of breath no palpitation no cough no nausea or vomiting no abdominal pain no diarrhea no blood in the stools no burning with urination no frequency or urgency and no hematuria, there is no weakness or numbness in any of the extremities no change in vision speech or gait. Patient has chronic difficulty with her speech related to her previous stroke but no acute abnormality. On 12/04/2020 patient alert and oriented 3. Patient has completed steroid course. Awaiting discharge planning. Patient will likely need inpatient rehab or ECF facility upon discharge patient would like to discuss with . Case management and social work services on consult. At this time patient denies any chest pain or shortness of breath. Patient denies nausea vomiting or diarrhea. Patient denies any urinary burning or frequency Objective - Vital Signs Vital signs: Vital Signs Temp 98.2 F 12/04/20 11:34 Pulse 72 12/04/20 11:34 Resp 18 12/04/20 11:34 BP 147/72 12/04/20 11:34 Pulse Ox 96 12/04/20 11:34 Intake & Output 12/03/20 12/04/20 12/04/20 18:59 06:59 18:59 Intake Total 580 Balance 580 Intake: Intake, IV Titration 100 Amount methylPREDNISolone SOD 100 SUCC 500 mg In Sodium Chloride 0.9% 100 ml @ 100 mls/hr IVPB ONCE ONE Rx#:[id number] Oral 480 Other: # Voids 1 1 # Bowel Movements 1 - Exam Head normocephalic and atraumatic Neck supple no JVD no goiter Lungs clear to auscultation bilaterally no wheezing or crackles Heart regular rate and rhythm S1-S2, no rub or gallop Abdomen is soft nontender nondistended positive bowel sounds no hepatosplenomegaly Extremities no edema Neuro alert and orientated to 3. Expressive aphasia - Labs CBC & Chem 7: 12/03/20 06:55 12/03/20 06:55 Labs: Abnormal Lab Results - Last 24 Hours (Table) 12/03/20 12/03/20 12/04/20 Range/Units 17:09 20:55 06:39 PT 25.1 H (9.0-12.0) sec INR 2.6 H (<1.2) POC Glucose (mg/dL) 206 H 233 H (75-99) mg/dL 12/04/20 12/04/20 Range/Units 07:11 11:27 PT (9.0-12.0) sec INR (<1.2) POC Glucose (mg/dL) 209 H 319 H (75-99) mg/dL Assessment and Plan Assessment: 1. Generalized weakness and increased numbness likely secondary to MS exacerbation. Neurology services have been consulted. Patient started on IV steroids. Patient completed course of IV steroids. 2. Bradycardia. Cardiology services have been consulted she was evaluated by cardiology services no further recommendations or testing at this time 3. Hypothyroidism. TSH 4.92. Synthroid increased to 88 mics 4. History of pulmonary embolism. Patient maintained on Coumadin. 5. History of fibromyalgia 6. History of CVA expressive aphasia deficit 7. Diabetes mellitus type 2 8. Spinal spondylosis. Patient was evaluated by with orthopedic services. Per orthopedic services symptomatic treatment of back or neck pain reasonable. DVT prophylaxis Coumadin. GI prophylaxis Protonix cardiology and neurology service is consulted Anticipate discharge in the next 24-48 hours Patient will likely need ECF rehab or inpatient [facility] discharge Case management social work services on consult
--- NOTE | 2020-12-04 15:46 | P.PN ---
Subjective Progress Note Date: 12/04/20 12/03/2020: Patient is laying comfortably in the bed. Patient's primary physician Dr. Paredes was also present today. Patient's facial flushing has improved. Her delirium seems to have improved. Patient is off high-dose steroids now. She received it almost for 4 days. 12/02/2020: Patient offers no complaints. Patient is laying comfortably in the bed. Patient continues to have expressive fluent aphasia as per examination. 12/01/2020: Patient was seen for a follow-up. Initially seen by Dr. Kannan Reaves. Please refer to his note for details. Patient has reported history of MS. She follows up with Dr. Jefferson. Patient has presented with some aphasia, with possible MS exacerbation. Patient is laying in the bed. She states "I hurt all the time". "I hurt so bad". Patient has fragmented and tangential thoughts. Patient at times speaks random stuff which does not make sense. Please refer to examination below. Objective - Vital Signs Vital signs: Vital Signs Temp 98.2 F 12/04/20 11:34 Pulse 72 12/04/20 11:34 Resp 18 12/04/20 11:34 BP 147/72 12/04/20 11:34 Pulse Ox 96 12/04/20 11:34 Intake & Output 12/03/20 12/04/20 12/04/20 18:59 06:59 18:59 Intake Total 580 Balance 580 Intake: Intake, IV Titration 100 Amount methylPREDNISolone SOD 100 SUCC 500 mg In Sodium Chloride 0.9% 100 ml @ 100 mls/hr IVPB ONCE ONE Rx#:[id number] Oral 480 Other: # Voids 1 1 # Bowel Movements 1 - Exam Patient is alert and awake, in no distress. Her speech is fluent, with less paraphasic errors. Detailed testing deferred. - Labs CBC & Chem 7: 12/03/20 06:55 12/03/20 06:55 Labs: Abnormal Lab Results - Last 24 Hours (Table) 12/03/20 12/03/20 12/04/20 Range/Units 17:09 20:55 06:39 PT 25.1 H (9.0-12.0) sec INR 2.6 H (<1.2) POC Glucose (mg/dL) 206 H 233 H (75-99) mg/dL 12/04/20 12/04/20 Range/Units 07:11 11:27 PT (9.0-12.0) sec INR (<1.2) POC Glucose (mg/dL) 209 H 319 H (75-99) mg/dL Assessment and Plan Assessment: * Reported history of multiple sclerosis, possible exacerbation. Status post treatment with high-dose steroids for 4 days. * History of left MCA stroke in 2006 with residual significant expressive aphasia * Reported Diagnosis of relapsing remitting multiple sclerosis diagnosed by her outside neurologist * Hypertension * Acute on Chronic kidney insuffiency * Urinary incontinence * Hyperlipidemia * Obstructive sleep apnea * DVT on Coumadin * Fibromyalgia Plan: * Patient has completed 4 day treatment of Solu-Medrol 500 mg twice a day. No need for placement of oral steroids stepper. * MRI the brain w/ and w/o: As reported as old large left middle cerebral artery distribution infarct without change. No acute intracranial abnormality. * MRI Cervical spine w/ and w/o and cervical spine with and without is reported as frontal changes in the cervical spine with multilevels small posterior disc herniation. No significant spinal stenosis at. No change. * MRI of the lumbar spine is reported as mild degenerative disc changes. No spinal stenosis. Small posterior disc bulging and herniation at the L5-S1. No significant change compared to old exam. I personally reviewed the MRI images and I am still not convinced that the patient has multiple sclerosis radiographically. * TSH is 4.92 which is elevated and free T4 is 1.13 (normal). * Vitamin B12 is 403 on 05/04/2020 which is normal. Also red blood cell folate is 829 normal on 05/2020. * NENA: negative, maqk-[id number] DNA <1.0, cANCA and pANC <1:20, creatinine kinase 113 (normal), WILLIAM, Terrie 1 antibody negative, rheumatoid factor 5 (normal), [employer] antibody negative, anti-Lou antibody negative, lupus anticoagulant, SSA and SSB antibody negative, [employer] antibody negative. ESR 17 a nd CRP <0.4 (normal), anti-PM/Scl 100 ab negative. Patient lupus anticoagulant PTT 55 which is elevated, patient delusional Bryan's viper venom is 57 which is elevated. Lupus anticoagulant is negative. Patient seen by curb attendant, and does not have any evidence of lupus. * Patient is on Coumadin, INR therapeutic 2.6. * Neurologically clear. Dr. Kannan Reaves resumes neurology service in a.m. Neurology will sign off. Please reconsult neurology if any concerns.
[2020-12-04] MEDS: FERROUS SULFATE 325 MG TAB PO SCH (16:17)
[2020-12-04] MEDS: BACLOFEN 10 MG TAB PO SCH (16:17)
[2020-12-04] MEDS: MONTELUKAST 10 MG TAB PO SCH (16:17)
[2020-12-04 17:28] LABS: Glucose,Whole Blood 123 mg/dL (75-99)
[2020-12-04] MEDS ORDERED: WARFARIN 5 MG TAB PO ONE (18:00)
[2020-12-04 20:01] LABS: Glucose,Whole Blood 198 mg/dL (75-99)
[2020-12-04] MEDS: LORATADINE 10 MG TAB PO SCH (20:05)
[2020-12-04] MEDS: CITALOPRAM HYDROBROMIDE 20 MG TAB PO SCH (20:05)
[2020-12-05] MEDS: LEVOTHYROXINE 88 MCG TAB PO SCH (06:04)
[2020-12-05] MEDS: PANTOPRAZOLE 40 MG TABLET PO SCH (06:04)
[2020-12-05 07:06] LABS: Glucose,Whole Blood 98 mg/dL (75-99)
[2020-12-05 07:32] LABS: Basophils % (A) 0 %; Eosinophils # (A) 0.1 k/uL (0-0.7); Eosinophils % (A) 1 %; HCT 44.6 % (34.0-46.0); HGB 15.1 gm/dL (11.4-16.0); Lymphocytes # (A) 0.8 k/uL (1.0-4.8); Lymphocytes % (A) 8 %; MCH 30.3 pg (25.0-35.0); MCHC 33.8 g/dL (31.0-37.0); MCV 89.7 fL (80.0-100.0); Mean Platelet Volume 10.4; Monocytes # (A) 0.5 k/uL (0-1.0); Monocytes % (A) 5 %; Neutrophils # (A) 8.2 k/uL (1.3-7.7); Neutrophils % (A) 86 %; RBC 4.97 m/uL (3.80-5.40); RDW 13.2 % (11.5-15.5); WBC 9.5 k/uL (3.8-10.6)
[2020-12-05] MEDS: INSULIN ASPART (NovoLOG) 100 UNIT/ML VIAL SQ SCH ×4 (07:33→20:48)
[2020-12-05 07:40] LABS: INR 2.7 (<1.2)
[2020-12-05 07:41] LABS: Prothrombin Time 25.8 sec (9.0-12.0)
[2020-12-05 07:51] LABS: ALT 151 U/L (4-34); AST 46 U/L (14-36); African American GFR (CKD) 50 (>60 ml/min/1.73 sqM); Albumin 3.3 g/dL (3.5-5.0); Albumin/Globulin Ratio 1.7; Alkaline Phosphatase 81 U/L (38-126); Anion Gap 4 mmol/L; Blood Urea Nitrogen 42 mg/dL (7-17); Calcium 8.2 mg/dL (8.4-10.2); Carbon Dioxide 37 mmol/L (22-30); Chloride 100 mmol/L (98-107); Glucose 96 mg/dL (74-99); Non-African American GFR(CKD) 43 (>60 ml/min/1.73 sqM); Potassium 3.5 mmol/L (3.5-5.1); Sodium 141 mmol/L (137-145); Total Protein 5.3 g/dL (6.3-8.2)
[2020-12-05] MEDS: FOLIC ACID 1 MG TAB PO SCH (07:59)
[2020-12-05] MEDS: METHYLPHENIDATE HCL 10 MG TAB PO SCH ×3 (07:59→16:41)
[2020-12-05] MEDS: PREGABALIN 100 MG CAP PO SCH ×3 (07:59→20:48)
[2020-12-05] MEDS: ASPIRIN 81 MG PO SCH (07:59)
[2020-12-05] MEDS: POTASSIUM CHLORIDE ER 20 MEQ TAB.ER PO SCH ×2 (08:00→17:24)
[2020-12-05] MEDS: CHOLECALCIFEROL 25 MCG (1000 IU) TABLET PO SCH (08:00)
[2020-12-05] MEDS: FLUTICASONE 50MCG/SPRAY NASAL 16GM EA NOSTRIL SCH (08:01)
[2020-12-05] MEDS: FUROSEMIDE 40 MG TAB PO SCH ×2 (08:01→17:25)
[2020-12-05 09:09] LABS: Band Neutrophils % 2 %; Lymphocytes # (M) 1.24 k/uL (1.0-4.8); Monocytes # (M) 0.29 k/uL (0-1.0); Neutrophils % (M) 82 %; Nucleated Red Blood Cells 0 /100 WBC (0-0); Total Cells Counted 100
[2020-12-05 09:13] LABS: Platelet Count 85 k/uL (150-450)
[2020-12-05] MEDS: ACETAMINOPHEN TAB 500 MG TAB PO PRN ×2 (09:26→16:41)
[2020-12-05 12:06] LABS: Glucose,Whole Blood 195 mg/dL (75-99)
[2020-12-05 17:11] LABS: Glucose,Whole Blood 85 mg/dL (75-99)
[2020-12-05] MEDS: BACLOFEN 10 MG TAB PO SCH (17:24)
[2020-12-05] MEDS: WARFARIN 5 MG TAB PO SCH (17:24)
[2020-12-05] MEDS: MONTELUKAST 10 MG TAB PO SCH (17:25)
[2020-12-05] MEDS: FERROUS SULFATE 325 MG TAB PO SCH (17:25)
[2020-12-05 20:36] LABS: Glucose,Whole Blood 280 mg/dL (75-99)
[2020-12-05] MEDS: CITALOPRAM HYDROBROMIDE 20 MG TAB PO SCH (20:48)
[2020-12-05] MEDS: LORATADINE 10 MG TAB PO SCH (20:48)
[2020-12-06] MEDS: PANTOPRAZOLE 40 MG TABLET PO SCH (05:41)
[2020-12-06] MEDS: LEVOTHYROXINE 88 MCG TAB PO SCH (05:41)
[2020-12-06 06:49] LABS: INR 2.4 (<1.2); Prothrombin Time 23.5 sec (9.0-12.0)
[2020-12-06 07:15] LABS: Glucose,Whole Blood 94 mg/dL (75-99)
[2020-12-06] MEDS: INSULIN ASPART (NovoLOG) 100 UNIT/ML VIAL SQ SCH ×4 (07:46→20:18)
--- NOTE | 2020-12-06 09:15 | P.PN ---
Subjective Progress Note Date: 12/05/20 This is a 65-year-old female patient who presented to the ER with complaints of increased weakness and numbness over the past week patient does have past medical history of MS and stroke expressive aphasia. Patient follows normally with Dr. Downing. Additional medical history includes fibromyalgia, chest pain, osteoarthritis, pulmonary embolism and thyroid disorder. Chest x-ray was performed showing no active cardiopulmonary disease. No change. COVID-19 negative. UA negative. TSH 4.920 will increase Synthroid to 88 mg. At this time neurology services will be consulted. Cardiology services also consulted for bradycardia. Home medications resumed. Patient denies any chest pain or shortness of breath. Patient denies nausea vomiting or diarrhea. Patient denies any urinary burning or frequency On 11/26/2020 patient is alert and oriented 3. Patient is currently sitting up on side about working with physical therapy. Head CT and spinal MRIs ordered per neurology services. Orthopedic service is consulted for spinal spondylosis. At this time patient denies chest pain or shortness breath. Patient denies nausea vomiting or diarrhea. Patient denies urinary burning or frequency. Repeat labs have been ordered. Awaiting neurology input regards to steroids On 11/27/2020 Patient was seen and examined on the medical floor, he is alert and oriented x 3 in no distress, he denies any complaints there is no fever or chills no headache or dizziness no chest pain no shortness of breath no palpitation no cough no nausea or vomiting no abdominal pain no diarrhea no blood in the stools no burning with urination no frequency or urgency and no hematuria, she is complaining of severe weakness from the neck down, she is complaining of generalized body ache, otherwise no specific complaints On 11/28/2020 Patient was seen and examined on the medical floor, he is alert and oriented x 3 in no distress, he denies any complaints there is no fever or chills no headache or dizziness no chest pain no shortness of breath no palpitation no cough no nausea or vomiting no abdominal pain no diarrhea no blood in the stools no burning with urination no frequency or urgency and no hematuria, patient is still complaining of generalized weakness and generalized body aches without any complaint, she stated that she is improving with IV steroids will continue with current regimen On 11/29/2020 Patient was seen and examined on the medical floor, he is alert and oriented x 3 in no distress, he denies any complaints there is no fever or chills no headache or dizziness no chest pain no shortness of breath no palpitation no cough no nausea or vomiting no abdominal pain no diarrhea no b lood in the stools no burning with urination no frequency or urgency and no hematuria, patient is still complaining of generalized weakness and generalized body aches without any complaint, she stated that she is improving with IV steroids will continue with current regimen On 11/30/2020 Patient was seen and examined on the medical floor, he is alert and oriented x 3 in no distress, he denies any complaints there is no fever or chills no headache or dizziness no chest pain no shortness of breath no palpitation no cough no nausea or vomiting no abdominal pain no diarrhea no blood in the stools no burning with urination no frequency or urgency and no hematuria, there is some improvement in generalized body weakness and pain, at this time will continue with current IV steroids follow in a.m. On 12/01/2020 agent was seen and examined on the medical floor she is alert responsive in no apparent distress she is stating that her weakness is improving with IV steroids she is complaining of generalized pain otherwise she denies any specific complaints. Initially neurologist wanted a lumbar puncture to confirm or rule out the diagnosis of multiple sclerosis however on today's note neurolo gist is stating there is no need for lumbar puncture at this time. Coumadin was held yesterday in anticipation of lumbar puncture. At this time will resume Coumadin 5 mg by mouth daily, recheck labs CBC CMP and PT/INR in a.m. 12/02/2020 patient alert and oriented resting comfortably in bed. Patient maintained on IV Lasix. Coumadin has been resumed. Neurology patient to be transitioned to by mouth steroids upon completion of IV steroid doses. Patient denies chest pain or shortness of breath. Patient denies nausea vomiting or diarrhea. Patient denies any urinary burning or frequency On 12/03/2020atient was seen and examined on the medical floor, she is alert and oriented x 3 in no distress, she is complaining of generalized weakness otherwise she denies any complaints there is no fever or chills no headache or dizziness no chest pain no shortness of breath no palpitation no cough no nausea or vomiting no abdominal pain no diarrhea no blood in the stools no burning with urination no frequency or urgency and no hematuria, there is no weakness or numbness in any of the extremities no change in vision speech or gait. Patient has chronic difficulty with her speech related to her previous stroke but no acute abnormality. On 12/04/2020 patient alert and oriented 3. Patient has completed steroid course. Awaiting discharge planning. Patient will likely need inpatient rehab or ECF facility upon discharge patient would like to discuss with . Case management and social work services on consult. At this time patient denies any chest pain or shortness of breath. Patient denies nausea vomiting or diarrhea. Patient denies any urinary burning or frequency. On 12/05/2020 Patient was seen and examined on the medical floor, she is alert and oriented x 3 in no distress, she is complaining of generalized weakness otherwise she denies any complaints there is no fever or chills no headache or dizziness no chest pain no shortness of breath no palpitation no cough no nausea or vomiting no abdominal pain no diarrhea no blood in the stools no burning with urination no frequency or urgency and no hematuria, Patient is still complaining of generalized weakness and pain in the lower extremities otherwise no complaints Objective - Vital Signs Vital signs: Vital Signs Temp 98.3 F 12/05/20 12:48 Pulse 52 L 12/05/20 12:48 Resp 16 12/05/20 12:48 BP 115/72 12/05/20 12:48 Pulse Ox 94 L 12/05/20 12:48 Intake & Output 12/04/20 12/05/20 12/05/20 18:59 06:59 18:59 Intake Total 700 Balance 700 Intake: Oral 700 Other: Voiding Method Toilet # Voids 2 1 # Bowel Movements 1 - Exam Head normocephalic and atraumatic Neck supple no JVD no goiter Lungs clear to auscultation bilaterally no wheezing or crackles Heart regular rate and rhythm S1-S2, no rub or gallop Abdomen is soft nontender nondistended positive bowel sounds no hepatosplenomegaly Extremities no edema Neuro alert and orientated to 3. Expressive aphasia - Labs CBC & Chem 7: 12/05/20 06:37 12/05/20 06:37 Labs: Abnormal Lab Results - Last 24 Hours (Table) 12/04/20 12/04/20 12/05/20 Range/Units 17:25 19:59 06:37 Plt Count (150-450) k/uL Neutrophils # (1.3-7.7) k/uL Neutrophils # (Manual) (1.3-7.7) k/uL Lymphocytes # (1.0-4.8) k/uL PT 25.8 H (9.0-12.0) sec INR 2.7 H (<1.2) Carbon Dioxide (22-30) mmol/L BUN (7-17) mg/dL Creatinine (0.52-1.04) mg/dL POC Glucose (mg/dL) 123 H 198 H (75-99) mg/dL Calcium (8.4-10.2) mg/dL AST (14-36) U/L ALT (4-34) U/L Total Protein (6.3-8.2) g/dL Albumin (3.5-5.0) g/dL 12/05/20 12/05/20 12/05/20 Range/Units 06:37 06:37 12:04 Plt Count 85 L (150-450) k/uL Neutrophils # 8.2 H (1.3-7.7) k/uL Neutrophils # (Manual) 7.90 H (1.3-7.7) k/uL Lymphocytes # 0.8 L (1.0-4.8) k/uL PT (9.0-12.0) sec INR (<1.2) Carbon Dioxide 37 H (22-30) mmol/L BUN 42 H (7-17) mg/dL Creatinine 1.29 H (0.52-1.04) mg/dL POC Glucose (mg/dL) 195 H (75-99) mg/dL Calcium 8.2 L (8.4-10.2) mg/dL AST 46 H (14-36) U/L ALT 151 H (4-34) U/L Total Protein 5.3 L (6.3-8.2) g/dL Albumin 3.3 L (3.5-5.0) g/dL Assessment and Plan Assessment: 1. Generalized weakness and increased numbness likely secondary to MS exacerbation. Neurology services have been consulted. Patient started on IV steroids. Patient completed course of IV steroids. 2. Bradycardia. Cardiology services have been consulted she was evaluated by cardiology services no further recommendations or testing at this time 3. Hypothyroidism. TSH 4.92. Synthroid increased to 88 mics 4. History of pulmonary embolism. Patient maintained on Coumadin. 5. History of fibromyalgia 6. History of CVA expressive aphasia deficit 7. Diabetes mellitus type 2 8. Spinal spondylosis. Patient was evaluated by with orthopedic services. Per orthopedic services symptomatic treatment of back or neck pain reasonable. DVT prophylaxis Coumadin. GI prophylaxis Protonix cardiology and neurology service is consulted Anticipate discharge in the next 24-48 hours Patient will likely need ECF rehab or inpatient [facility] Case management social work services on consult
[2020-12-06] MEDS: ASPIRIN 81 MG PO SCH (09:28)
[2020-12-06] MEDS: CHOLECALCIFEROL 25 MCG (1000 IU) TABLET PO SCH (09:28)
[2020-12-06] MEDS: METHYLPHENIDATE HCL 10 MG TAB PO SCH ×3 (09:28→15:42)
[2020-12-06] MEDS: POTASSIUM CHLORIDE ER 20 MEQ TAB.ER PO SCH ×2 (09:29→16:52)
[2020-12-06] MEDS: FOLIC ACID 1 MG TAB PO SCH (09:29)
[2020-12-06] MEDS: ACETAMINOPHEN TAB 500 MG TAB PO PRN (09:30)
[2020-12-06] MEDS: FUROSEMIDE 40 MG TAB PO SCH ×2 (09:30→16:52)
[2020-12-06] MEDS: PREGABALIN 100 MG CAP PO SCH ×3 (09:30→20:18)
[2020-12-06] MEDS: FLUTICASONE 50MCG/SPRAY NASAL 16GM EA NOSTRIL SCH (09:41)
--- NOTE | 2020-12-06 10:19 | P.PN ---
Subjective Progress Note Date: 12/06/20 This is a 65-year-old female patient who presented to the ER with complaints of increased weakness and numbness over the past week patient does have past medical history of MS and stroke expressive aphasia. Patient follows normally with Dr. Downing. Additional medical history includes fibromyalgia, chest pain, osteoarthritis, pulmonary embolism and thyroid disorder. Chest x-ray was performed showing no active cardiopulmonary disease. No change. COVID-19 negative. UA negative. TSH 4.920 will increase Synthroid to 88 mg. At this time neurology services will be consulted. Cardiology services also consulted for bradycardia. Home medications resumed. Patient denies any chest pain or shortness of breath. Patient denies nausea vomiting or diarrhea. Patient denies any urinary burning or frequency On 11/26/2020 patient is alert and oriented 3. Patient is currently sitting up on side about working with physical therapy. Head CT and spinal MRIs ordered per neurology services. Orthopedic service is consulted for spinal spondylosis. At this time patient denies chest pain or shortness breath. Patient denies nausea vomiting or diarrhea. Patient denies urinary burning or frequency. Repeat labs have been ordered. Awaiting neurology input regards to steroids On 11/27/2020 Patient was seen and examined on the medical floor, he is alert and oriented x 3 in no distress, he denies any complaints there is no fever or chills no headache or dizziness no chest pain no shortness of breath no palpitation no cough no nausea or vomiting no abdominal pain no diarrhea no blood in the stools no burning with urination no frequency or urgency and no hematuria, she is complaining of severe weakness from the neck down, she is complaining of generalized body ache, otherwise no specific complaints On 11/28/2020 Patient was seen and examined on the medical floor, he is alert and oriented x 3 in no distress, he denies any complaints there is no fever or chills no headache or dizziness no chest pain no shortness of breath no palpitation no cough no nausea or vomiting no abdominal pain no diarrhea no blood in the stools no burning with urination no frequency or urgency and no hematuria, patient is still complaining of generalized weakness and generalized body aches without any complaint, she stated that she is improving with IV steroids will continue with current regimen On 11/29/2020 Patient was seen and examined on the medical floor, he is alert and oriented x 3 in no distress, he denies any complaints there is no fever or chills no headache or dizziness no chest pain no shortness of breath no palpitation no cough no nausea or vomiting no abdominal pain no diarrhea no b lood in the stools no burning with urination no frequency or urgency and no hematuria, patient is still complaining of generalized weakness and generalized body aches without any complaint, she stated that she is improving with IV steroids will continue with current regimen On 11/30/2020 Patient was seen and examined on the medical floor, he is alert and oriented x 3 in no distress, he denies any complaints there is no fever or chills no headache or dizziness no chest pain no shortness of breath no palpitation no cough no nausea or vomiting no abdominal pain no diarrhea no blood in the stools no burning with urination no frequency or urgency and no hematuria, there is some improvement in generalized body weakness and pain, at this time will continue with current IV steroids follow in a.m. On 12/01/2020 agent was seen and examined on the medical floor she is alert responsive in no apparent distress she is stating that her weakness is improving with IV steroids she is complaining of generalized pain otherwise she denies any specific complaints. Initially neurologist wanted a lumbar puncture to confirm or rule out the diagnosis of multiple sclerosis however on today's note neurolo gist is stating there is no need for lumbar puncture at this time. Coumadin was held yesterday in anticipation of lumbar puncture. At this time will resume Coumadin 5 mg by mouth daily, recheck labs CBC CMP and PT/INR in a.m. 12/02/2020 patient alert and oriented resting comfortably in bed. Patient maintained on IV Lasix. Coumadin has been resumed. Neurology patient to be transitioned to by mouth steroids upon completion of IV steroid doses. Patient denies chest pain or shortness of breath. Patient denies nausea vomiting or diarrhea. Patient denies any urinary burning or frequency On 12/03/2020atient was seen and examined on the medical floor, she is alert and oriented x 3 in no distress, she is complaining of generalized weakness otherwise she denies any complaints there is no fever or chills no headache or dizziness no chest pain no shortness of breath no palpitation no cough no nausea or vomiting no abdominal pain no diarrhea no blood in the stools no burning with urination no frequency or urgency and no hematuria, there is no weakness or numbness in any of the extremities no change in vision speech or gait. Patient has chronic difficulty with her speech related to her previous stroke but no acute abnormality. On 12/04/2020 patient alert and oriented 3. Patient has completed steroid course. Awaiting discharge planning. Patient will likely need inpatient rehab or ECF facility upon discharge patient would like to discuss with . Case management and social work services on consult. At this time patient denies any chest pain or shortness of breath. Patient denies nausea vomiting or diarrhea. Patient denies any urinary burning or frequency. On 12/05/2020 Patient was seen and examined on the medical floor, she is alert and oriented x 3 in no distress, she is complaining of generalized weakness otherwise she denies any complaints there is no fever or chills no headache or dizziness no chest pain no shortness of breath no palpitation no cough no nausea or vomiting no abdominal pain no diarrhea no blood in the stools no burning with urination no frequency or urgency and no hematuria, Patient is still complaining of generalized weakness and pain in the lower extremities otherwise no complaints On 12/06/2020 patient alert and oriented 3 resting complaining bed. Patient currently eating breakfast. Awaiting final discharge plan ECF versus inpatient rehab at this time patient denies any chest pain or shortness of breath. Patient denies nausea vomiting or diarrhea. Patient denies any urinary burning or frequency. Repeat labs ordered for a.m. Objective - Vital Signs Vital signs: Vital Signs Temp 98.3 F 12/06/20 04:51 Pulse 54 L 12/06/20 09:32 Resp 16 12/06/20 04:51 BP 109/58 12/06/20 09:32 Pulse Ox 94 L 12/06/20 09:32 Intake & Output 12/05/20 12/06/20 12/06/20 18:59 06:59 18:59 Other: Voiding Method Toilet # Voids 1 1 - Exam Head normocephalic and atraumatic Neck supple no JVD no goiter Lungs clear to auscultation bilaterally no wheezing or crackles Heart regular rate and rhythm S1-S2, no rub or gallop Abdomen is soft nontender nondistended positive bowel sounds no hepato splenomegaly Extremities no edema Neuro alert and orientated to 3. Expressive aphasia - Labs CBC & Chem 7: 06/05/21 06:37 12/05/20 06:37 Labs: Abnormal Lab Results - Last 24 Hours (Table) 12/05/20 12/05/20 12/06/20 Range/Units 12:04 20:35 06:13 PT 23.5 H (9.0-12.0) sec INR 2.4 H (<1.2) POC Glucose (mg/dL) 195 H 280 H (75-99) mg/dL Assessment and Plan Assessment: 1. Generalized weakness and increased numbness likely secondary to MS exacerbation. Neurology services have been consulted. Patient started on IV steroids. Patient completed course of IV steroids. 2. Bradycardia. Cardiology services have been consulted she was evaluated by cardiology services no further recommendations or testing at this time 3. Hypothyroidism. TSH 4.92. Synthroid increased to 88 mics 4. History of pulmonary embolism. Patient maintained on Coumadin. 5. History of fibromyalgia 6. History of CVA expressive aphasia deficit 7. Diabetes mellitus type 2 8. Spinal spondylosis. Patient was evaluated by with orthopedic services. Per orthopedic services symptomatic treatment of back or neck pain reasonable. 9. Elevated liver enzymes. Repeat labs ordered for a.m. DVT prophylaxis Coumadin. GI prophylaxis Protonix cardiology and neurology service is consulted Anticipate discharge in the next 24-48 hours Patient will likely need ECF rehab or [facility] Case management social work services on consult
[2020-12-06 11:14] LABS: Glucose,Whole Blood 133 mg/dL (75-99)
[2020-12-06] MEDS: MONTELUKAST 10 MG TAB PO SCH (16:52)
[2020-12-06] MEDS: BACLOFEN 10 MG TAB PO SCH (16:52)
[2020-12-06] MEDS: FERROUS SULFATE 325 MG TAB PO SCH (16:52)
[2020-12-06 17:54] LABS: Glucose,Whole Blood 147 mg/dL (75-99)
[2020-12-06] MEDS: WARFARIN 5 MG TAB PO SCH (18:05)
[2020-12-06 20:16] LABS: Glucose,Whole Blood 134 mg/dL (75-99)
[2020-12-06] MEDS: LORATADINE 10 MG TAB PO SCH (20:18)
[2020-12-06] MEDS: CITALOPRAM HYDROBROMIDE 20 MG TAB PO SCH (20:18)
[2020-12-07] MEDS: LEVOTHYROXINE 88 MCG TAB PO SCH (06:04)
[2020-12-07] MEDS: PANTOPRAZOLE 40 MG TABLET PO SCH (06:04)
[2020-12-07 07:01] LABS: Glucose,Whole Blood 136 mg/dL (75-99)
[2020-12-07 07:24] LABS: INR 2.1 (<1.2); Prothrombin Time 20.9 sec (9.0-12.0)
[2020-12-07 07:30] LABS: Basophils % (A) 0 %; Eosinophils # (A) 0.1 k/uL (0-0.7); Eosinophils % (A) 1 %; HCT 43.3 % (34.0-46.0); Lymphocytes # (A) 0.6 k/uL (1.0-4.8); Lymphocytes % (A) 7 %; MCH 29.5 pg (25.0-35.0); MCHC 32.2 g/dL (31.0-37.0); MCV 91.7 fL (80.0-100.0); Mean Platelet Volume 10.7; Monocytes # (A) 0.4 k/uL (0-1.0); Monocytes % (A) 4 %; Neutrophils # (A) 7.9 k/uL (1.3-7.7); Neutrophils % (A) 87 %; Platelet Count 89 k/uL (150-450); RBC 4.73 m/uL (3.80-5.40); RDW 14.3 % (11.5-15.5); WBC 9.1 k/uL (3.8-10.6)
[2020-12-07] MEDS: FOLIC ACID 1 MG TAB PO SCH (08:39)
[2020-12-07] MEDS: PREGABALIN 100 MG CAP PO SCH (08:39)
[2020-12-07] MEDS: POTASSIUM CHLORIDE ER 20 MEQ TAB.ER PO SCH (08:39)
[2020-12-07] MEDS: INSULIN ASPART (NovoLOG) 100 UNIT/ML VIAL SQ SCH ×2 (08:39→13:27)
[2020-12-07] MEDS: ASPIRIN 81 MG PO SCH (08:39)
[2020-12-07] MEDS: METHYLPHENIDATE HCL 10 MG TAB PO SCH ×2 (08:39→13:27)
[2020-12-07] MEDS: CHOLECALCIFEROL 25 MCG (1000 IU) TABLET PO SCH (08:39)
[2020-12-07] MEDS: FUROSEMIDE 40 MG TAB PO SCH (08:39)
[2020-12-07] MEDS: FLUTICASONE 50MCG/SPRAY NASAL 16GM EA NOSTRIL SCH (08:40)
[2020-12-07 11:36] VITALS: BP 118/75; PULSE 65; RESP 18; TEMP 97.9
[2020-12-07 12:40] LABS: Glucose,Whole Blood 140 mg/dL (75-99)
[2020-12-07 13:00] LABS: African American GFR (CKD) 54.2 (60.0-200.0); Albumin 3.3 g/dL (3.80-4.90); Albumin/Globulin Ratio 1.94 (1.60-3.17); Anion Gap 6.8 mmol/L (4.00-12.00); BUN/Creat Ratio 21.67 Ratio (12.00-20.00); Calcium 8.2 mg/dL (8.7-10.3); Carbon Dioxide 32.2 mmol/L (21.6-31.8); Globulin 1.7 g/dL (1.6-3.3); Non-African American GFR(CKD) 46.7 (60.0-200.0); Total Bilirubin 1.1 mg/dL (0.3-1.2)
--- NOTE | 2020-12-07 14:57 | P.DS ---
Providers Date of admission: 11/25/20 11:07 Expected date of discharge: 12/07/20 Attending physician: Sarah Paredes Consults: 11/24/20 22:55 Consult Physician Urgent Consulting Provider: Kannan Reaves Consult Reason/Comments: MS exacerbation Do you want consulting provider notified?: Yes 11/25/20 10:56 Consult Physician Routine Consulting Provider: Diaz Dowling Consult Reason/Comments: bradycardia Do you want consulting provider notified?: Yes 11/25/20 16:25 Consult Physician Routine Consulting Provider: Jin Roberto Consult Reason/Comments: spinal spondylosis Do you want consulting provider notified?: Yes 11/26/20 12:47 Consult Physician Routine Consulting Provider: Cyndy Donovan Consult Reason/Comments: r/o connective tissue disorder Do you want consulting provider notified?: Yes 11/26/20 16:44 Consult Physician Routine Consulting Provider: Cyndy Donovan Consult Reason/Comments: possible lupus Do you want consulting provider notified?: Yes 12/03/20 15:54 Consult Physician Routine Consulting Provider: Aaron Abdul Consult Reason/Comments: possible rehab admission Do you want consulting provider notified?: Yes Primary care physician: Sarahdanny Paredes [facility] Course: Diagnoses on discharge: 1. Generalized weakness and increased numbness likely secondary to MS exacerbation. Neurology services have been consulted. Patient started on IV steroids. Patient completed course of IV steroids. 2. Bradycardia. Cardiology services have been consulted she was evaluated by cardiology services no further recommendations or testing at this time 3. Hypothyroidism. TSH 4.92. Synthroid increased to 88 mics 4. History of pulmonary embolism. Patient maintained on Coumadin. 5. History of fibromyalgia 6. History of CVA expressive aphasia deficit 7. Diabetes mellitus type 2 8. Spinal spondylosis. Patient was evaluated by with orthopedic services. Per orthopedic services symptomatic treatment of back or neck pain reasonable. 9. Elevated liver enzymes. Repeat labs ordered for a.m. Hospital course: This is a 65-year-old female patient who presented to the ER with complaints of increased weakness and numbness over the past week patient does have past medical history of MS and stroke expressive aphasia. Patient follows normally with Dr. Downing. Additional medical history includes fibromyalgia, chest pain, osteoarthritis, pulmonary embolism and thyroid disorder. Chest x-ray was performed showing no active cardiopulmonary disease. No change. COVID-19 negative. UA negative. TSH 4.920 will increase Synthroid to 88 mg. At this time neurology services will be consulted. Cardiology services also consulted for bradycardia. Home medications resumed. Patient denies any chest pain or shortness of breath. Patient denies nausea vomiting or diarrhea. Patient denies any urinary burning or frequency On 11/26/2020 patient is alert and oriented 3. Patient is currently sitting up on side about working with physical therapy. Head CT and spinal MRIs ordered per neurology services. Orthopedic service is consulted for spinal spondylosis. At this time patient denies chest pain or shortness breath. Patient denies nausea vomiting or diarrhea. Patient denies urinary burning or frequency. Repeat labs have been ordered. Awaiting neurology input regards to steroids On 11/27/2020 Patient was seen and examined on the medical floor, he is alert and oriented x 3 in no distress, he denies any complaints there is no fever or chills no headache or dizziness no chest pain no shortness of breath no palpitation no cough no nausea or vomiting no abdominal pain no diarrhea no blood in the stools no burning with urination no frequency or urgency and no hematuria, she is complaining of severe weakness from the neck down, she is complaining of generalized body ache, otherwise no specific complaints On 11/28/2020 Patient was seen and examined on the medical floor, he is alert and oriented x 3 in no distress, he denies any complaints there is no fever or chills no headache or dizziness no chest pain no shortness of breath no palpitation no cough no nausea or vomiting no abdominal pain no diarrhea no blood in the stools no burning with urination no frequency or urgency and no hematuria, patient is still complaining of generalized weakness and generalized body aches without any complaint, she stated that she is improving with IV steroids will continue with current regimen On 11/29/2020 Patient was seen and examined on the medical floor, he is alert and oriented x 3 in no distress, he denies any complaints there is no fever or chills no headache or dizziness no chest pain no shortness of breath no palpitation no cough no nausea or vomiting no abdominal pain no diarrhea no blood in the stools no burning with urination no frequency or urgency and no hematuria, patient is still complaining of generalized weakness and generalized body aches without any complaint, she stated that she is improving with IV steroids will continue with current regimen On 11/30/2020 Patient was seen and examined on the medical floor, he is alert and oriented x 3 in no distress, he denies any complaints there is no fever or chills no headache or dizziness no chest pain no shortness of breath no palpitation no cough no nausea or vomiting no abdominal pain no diarrhea no blood in the stools no burning with urination no frequency or urgency and no hematuria, there is some improvement in generalized body weakness and pain, at this time will continue with current IV steroids follow in a.m. On 12/01/2020 agent was seen and examined on the medical floor she is alert responsive in no apparent distress she is stating that her weakness is improving with IV steroids she is complaining of generalized pain otherwise she denies any specific complaints. Initially neurologist wanted a lumbar puncture to confirm or rule out the diagnosis of multiple sclerosis however on today's note neurologist is stating there is no need for lumbar puncture at this time. Coumadin was held yesterday in anticipation of lumbar puncture. At this time will resume Coumadin 5 mg by mouth daily, recheck labs CBC CMP and PT/INR in a.m. 12/02/2020 patient alert and oriented resting comfortably in bed. Patient maintained on IV Lasix. Coumadin has been resumed. Neurology patient to be transitioned to by mouth steroids upon completion of IV steroid doses. Patient denies chest pain or shortness of breath. Patient denies nausea vomiting or diarrhea. Patient denies any urinary burning or frequency On 12/03/2020atient was seen and examined on the medical floor, she is alert and oriented x 3 in no distress, she is complaining of generalized weakness otherwise she denies any complaints there is no fever or chills no headache or dizziness no chest pain no shortness of breath no palpitation no cough no nausea or vomiting no abdominal pain no diarrhea no blood in the stools no burning with urination no frequency or urgency and no hematuria, there is no weakness or numbness in any of the extremities no change in vision speech or gait. Patient has chronic difficulty with her speech related to her previous stroke but no acute abnormality. On 12/04/2020 patient alert and oriented 3. Patient has completed steroid course. Awaiting discharge planning. Patient will likely need inpatient rehab or ECF facility upon discharge patient would like to discuss with . Case management and social work services on consult. At this time patient denies any chest pain or shortness of breath. Patient denies nausea vomiting or diarrhea. Patient denies any urinary burning or frequency. On 12/05/2020 Patient was seen and examined on the medical floor, she is alert and oriented x 3 in no distress, she is complaining of generalized weakness otherwise she denies any complaints there is no fever or chills no headache or dizziness no chest pain no shortness of breath no palpitation no cough no nausea or vomiting no abdominal pain no diarrhea no blood in the stools no burning with urination no frequency or urgency and no hematuria, Patient is still complaining of generalized weakness and pain in the lower extremities otherwise no complaints On 12/06/2020 patient alert and oriented 3 resting complaining bed. Patient currently eating breakfast. Awaiting final discharge plan ECF versus inpatient rehab at this time patient denies any chest pain or shortness of breath. Patient denies nausea vomiting or diarrhea. Patient denies any urinary burning or frequency. Repeat labs ordered for a.m. Patient Condition at Discharge: Serious Plan - Discharge Summary Discharge Rx Participant: No New Discharge Prescriptions: New INSULIN ASPART (NovoLOG) [NovoLOG (formulary)] 0 unit SQ ACHS vial Acetaminophen Tab [Tylenol] 500 mg PO Q6HR PRN tab PRN Reason: Fever And/ Or Pain Levothyroxine Sodium [Synthroid] 88 mcg PO 0630 tab Continue Baclofen [Lioresal] 10 mg PO DAILY@1700 Aspirin 81 mg PO DAILY@0900 Montelukast [Singulair] 10 mg PO DAILY@1700 Furosemide [Lasix] 40 mg PO BID@0900,1700 Potassium Chloride 20 meq PO BID@0900,1700 Citalopram Hydrobromide [CeleXA] 40 mg PO HS@2100 Pantoprazole Sodium [Protonix] 40 mg PO DAILY@0600 Ferrous Sulfate [Feosol] 325 mg PO DAILY@1700 Methylphenidate HCl [Ritalin] 20 mg PO TID@0900,1200,1500 Fluticasone Nasal [place] [Flonase Nasal [place]] 1 spray EA NOSTRIL DAILY@0900 Pregabalin [Lyrica] 100 mg PO TID@0900,1700,2100 Folic Acid 0.4 mg PO DAILY@0900 Fexofenadine HCl 180 mg PO DAILY@2100 Warfarin [Coumadin] 7.5 mg PO DAILY@1699 Nitroglycerin Sl Tabs [Nitrostat] 0.4 mg SUBLINGUAL Q5M PRN PRN Reason: Chest Pain fentaNYL 50MCG/HR PATCH [Duragesic 50MCG/HR] 1 patch TRANSDERM Q72H Cholecalciferol [Vitamin D3 (25 Mcg = 1000 Iu)] 50 mcg PO DAILY@0900 Discontinued Levothyroxine Sodium [Levoxyl] 75 mcg PO DAILY@0900 Discharge Medication List Aspirin 81 mg PO DAILY@89911/08/13 [History] Baclofen [Lioresal] 10 mg PO DAILY@169911/08/13 [History] Citalopram Hydrobromide [CeleXA] 40 mg PO HS@209911/08/13 [History] Ferrous Sulfate [Feosol] 325 mg PO DAILY@169911/08/13 [History] Furosemide [Lasix] 40 mg PO BID@0900,169911/08/13 [History] Montelukast [Singulair] 10 mg PO DAILY@169911/08/13 [History] Pantoprazole Sodium [Protonix] 40 mg PO DAILY@59911/08/13 [History] Potassium Chloride 20 meq PO BID@0900,169911/08/13 [History] Fluticasone Nasal [place] [Flonase Nasal [place]] 1 spray EA NOSTRIL DAILY@0911/18/15 [History] Methylphenidate HCl [Ritalin] 20 mg PO TID@0900,1200,1500 11/18/15 [History] Pregabalin [Lyrica] 100 mg PO TID@0900,1700,209907/13/16 [History] Folic Acid 0.4 mg PO DAILY@0908/18/16 [History] Fexofenadine HCl 180 mg PO DAILY@209905/11/19 [History] Warfarin [Coumadin] 7.5 mg PO DAILY@169912/13/19 [History] Nitroglycerin Sl Tabs [Nitrostat] 0.4 mg SUBLINGUAL Q5M PRN 04/29/20 [History] fentaNYL 50MCG/HR PATCH [Duragesic 50MCG/HR] 1 patch TRANSDERM Q72H 05/01/20 [History] Cholecalciferol [Vitamin D3 (25 Mcg = 1000 Iu)] 50 mcg PO DAILY@0900 11/24/20 [History] Acetaminophen Tab [Tylenol] 500 mg PO Q6HR PRN tab 12/07/20 [Rx] INSULIN ASPART (NovoLOG) [NovoLOG (formulary)] 0 unit SQ ACHS vial 12/07/20 [Rx] Levothyroxine Sodium [Synthroid] 88 mcg PO 0630 tab 12/07/20 [Rx] Follow up Appointment(s)/Referral(s): [facility], [NON-STAFF] - 1 Week Sarah Paredes MD [Primary Care Provider] - 1-2 days
[2020-12-07] MEDS ORDERED: WARFARIN 7.5 MG TAB PO ONE (18:00)
== END 2020-12-07 18:14 | DRG 59 ==
LOC: EC 20:14 → 6NMEDSUR 22:55 → 5NMEDONC 11-25 01:06 → OBSVTOIN 11-25 11:07
PROVIDERS: ADMIT Internal Medicine; ATTEND Internal Medicine
DX: G35 Multiple sclerosis (principal); I69.351 Hemiplegia and hemiparesis following cerebral infarction affecting right dominant side; E03.9 Hypothyroidism, unspecified; E11.9 Type 2 diabetes mellitus without complications; E66.9 Obesity, unspecified; E78.5 Hyperlipidemia, unspecified; F32.9 Major depressive disorder, single episode, unspecified; G47.33 Obstructive sleep apnea (adult) (pediatric); I10 Essential (primary) hypertension; I69.320 Aphasia following cerebral infarction; M47.26 Other spondylosis with radiculopathy, lumbar region; M48.02 Spinal stenosis, cervical region; M51.16 Intervertebral disc disorders with radiculopathy, lumbar region; M79.7 Fibromyalgia; Z87.440 Personal history of urinary (tract) infections; R32 Unspecified urinary incontinence; R79.1 Abnormal coagulation profile; Z20.822 Contact with and (suspected) exposure to COVID-19; Z68.34 Body mass index [BMI] 34.0-34.9, adult; Z79.01 Long term (current) use of anticoagulants; Z79.82 Long term (current) use of aspirin; Z79.890 Hormone replacement therapy; Z79.899 Other long term (current) drug therapy; R94.5 Abnormal results of liver function studies; R26.9 Unspecified abnormalities of gait and mobility; Z82.49 Family history of ischemic heart disease and other diseases of the circulatory system; Z82.62 Family history of osteoporosis; Z83.3 Family history of diabetes mellitus; Z86.711 Personal history of pulmonary embolism; Z86.718 Personal history of other venous thrombosis and embolism; Z90.710 Acquired absence of both cervix and uterus; Z91.14 Patient's other noncompliance with medication regimen; Z90.49 Acquired absence of other specified parts of digestive tract; Z79.891 Long term (current) use of opiate analgesic; Z98.890 Other specified postprocedural states
CPT/HCPCS: 36415; 70450; 70553; 71045; 72125; 72128; 72131; 72156; 72158; 80053; 81003; 82085; 82550; 83036; 83516; 83605; 83615; 83735; 84132; 84439; 84443; 84484; 85025; 85610; 85613; 85652; 85730; 86038; 86140; 86225; 86235; 86255; 86431; 87635; 93005; 99285

== ENCOUNTER → 2021-03-17 | Outpatient (CLI) | payer MEDICARE, OTHER | END | disposition home or self-care (01) | LOC: RADMAMWWP 13:48 | PROVIDERS: ATTEND Surgery | DX: Z53.9 Procedure and treatment not carried out, unspecified reason (principal) ==

== ENCOUNTER 2021-03-20 14:47 | Emergency (ER) | payer MEDICARE, OTHER ==
[2021-03-20 14:56] VITALS: BP 132/68; PULSE 70; RESP 20; TEMP 98.7
--- NOTE | 2021-03-20 15:17 | ED ---
Skin/Abscess/FB HPI - General Chief complaint: Skin/Abscess/Foreign Body Stated complaint: Rash on abdomen Time Seen by Provider: 03/20/21 15:16 Source: patient Mode of arrival: ambulatory Limitations: no limitations - History of Present Illness Initial comments: Huong is a 65-year-old female with a history of stroke in the past with expressive aphasia which limits the patient's ability to indicate. Patient apparently developed a rash earlier in this week. Started as blisters under the right breast. In addition patient and her thought that this was due to having pendulous breasts. They've been trying to keep the area dry placing gauze over the rash. Patient was scheduled to have a mammogram this week but when the evaluated the rash on the breast they recommended she not obtain a mammogram and reschedule instead. Considering the patient has developed more lesions and has had some sloughing of the skin where she appears to be having an ALLERGIC reaction to the tape they use for her dressings. Patient expresses that this is quite painful. does report the patient has a history of shingles but it was on her shoulder in the past. - Related Data Home Medications Medication Instructions Recorded Confirmed Aspirin 81 mg PO DAILY@0900 11/08/13 11/24/20 Baclofen [Lioresal] 10 mg PO DAILY@169911/08/13 11/24/20 Citalopram Hydrobromide [CeleXA] 40 mg PO HS@2100 11/08/13 11/24/20 Ferrous Sulfate [Feosol] 325 mg PO DAILY@169911/08/13 11/24/20 Furosemide [Lasix] 40 mg PO BID@0900,169911/08/13 11/24/20 Montelukast [Singulair] 10 mg PO DAILY@169911/08/13 11/24/20 Pantoprazole Sodium [Protonix] 40 mg PO DAILY@0600 11/08/13 11/24/20 Potassium Chloride 20 meq PO BID@0900,169911/08/13 11/24/20 Fluticasone Nasal [place] [Flonase 1 spray EA NOSTRIL DAILY@0900 11/18/15 11/24/20 Nasal [place]] Methylphenidate HCl [Ritalin] 20 mg PO TID@0900,1200,1500 11/18/15 11/24/20 Pregabalin [Lyrica] 100 mg PO TID@0900,1700,2100 07/13/16 11/24/20 Folic Acid 0.4 mg PO DAILY@0900 08/18/16 11/24/20 Fexofenadine HCl 180 mg PO DAILY@2100 05/11/19 11/24/20 Warfarin [Coumadin] 7.5 mg PO DAILY@1700 12/13/19 11/24/20 Nitroglycerin Sl Tabs [Nitrostat] 0.4 mg SUBLINGUAL Q5M PRN 04/29/20 11/24/20 fentaNYL 50MCG/HR PATCH [Duragesic 1 patch TRANSDERM Q72H 05/01/20 11/24/20 50MCG/HR] Cholecalciferol [Vitamin D3 (25 50 mcg PO DAILY@0900 11/24/20 11/24/20 Mcg = 1000 Iu)] Previous Rx's Medication Instructions Recorded Acetaminophen Tab [Tylenol] 500 mg PO Q6HR PRN tab 12/07/20 INSULIN ASPART (NovoLOG) [NovoLOG 0 unit SQ ACHS vial 12/07/20 (formulary)] Levothyroxine Sodium [Synthroid] 88 mcg PO 0630 tab 12/07/20 predniSONE [Deltasone] 40 mg PO DAILY 5 Days #10 tab 03/20/21 valACYclovir [Valtrex] 1,000 mg PO TID #52 tab 03/20/21 Allergies Allergy/AdvReac Type Severity Reaction Status Date / Time adhesive Allergy SKIN Verified 03/20/21 14:56 PEELING Review of Systems ROS Statement: Those systems with pertinent positive or pertinent negative responses have been documented in the HPI. ROS Other: All systems not noted in ROS Statement are negative. Past Medical History Past Medical History: Chest Pain / Angina, CVA/TIA, Fibromyalgia, Musculoskeletal Disorder, Neurologic Disorder, Osteoarthritis (OA), Pulmonary Embolus (PE), Sleep Apnea/CPAP/BIPAP, Thyroid Disorder Additional Past Medical History / Comment(s): MULTIPLE SCLEROSIS, HX OF CVA 2006 WITH R SIDED WEAKNESS AND DYSPHASIA-MUCH IMPROVED, MIGRAINES, SLEEP APNEA(HAS C-PAP MACHINE BUT DOES NOT USE) ABD HERNIA,CHRONIC PAIN ESPECIALLY ON R SIDE OF BODY AND LOW BACK . PAINFUL FOR HER TO LIE FLAT. HX OF NOSEBLEED JUL 2014 AND RECEIVED PLASMA TRANSFUSION. takes pills with applesauce. History of Any Multi-Drug Resistant Organisms: VRE Date of last positivie culture/infection: 10/24/09 confirmed with infectious disease nurse on 08/18/16. MDRO Source:: URINE Past Surgical History: Appendectomy, Cholecystectomy, Hysterectomy Additional Past Surgical History / Comment(s): Incisional hernia repair, laparoscopic lysis of adhesions in 1987, ganglion cyst removal of the left wrist, patent foramen ovale patch in 2006, RF ablation for back pain. Past Anesthesia/Blood Transfusion Reactions: No Reported Reaction Past Psychological History: Depression Smoking Status: Never smoker Past Alcohol Use History: None Reported Past Drug Use History: None Reported - Past Family History Mother Family Medical History: Hypertension Additional Family Medical History / Comment(s): osteoporosis Father Family Medical History: Dementia, Diabetes Mellitus General Exam - General Exam Comments Initial Comments: Physical Exam GENERAL: Obese female in no acute distress HENT: Normocephalic, Atraumatic. EYES: PERRL, EOMI PULMONARY: Unlabored respirations. CARDIOVASCULAR: RRR Warm and well perfused extremities ABDOMEN: Obese, soft SKIN: Vesicular rash in the T5 distribution on the right, does not cross the midline, there are multiple blistering lesions in multiple states of healing. There also appears to be an adverse reaction to tape, there is blistering in a square pattern where the patient had paper tape on her skin. There is some sloughing of the skin under this. : Deferred NEUROLOGIC: Expressive aphasia MUSCULOSKELETAL: Moving all extremities with no apparent injury PSYCHIATRIC: No SI/HI Limitations: no limitations Course Vital Signs 03/20/21 14:53 Temperature 98.7 F Pulse Rate 70 Respiratory 20 Rate Blood Pressure 132/68 O2 Sat by Pulse 96 Oximetry Medical Decision Making - Medical Decision Making The patient was seen and evaluated history is obtained from patient and at bedside patient with a rash and swelling Monday. Rash appears to be shingles. Patient has a history of shingles. believes she did receive the vaccine after her last outbreak. Patient will be treated with Valtrex and steroids. Disposition Clinical Impression: Shingles Disposition: HOME SELF-CARE Condition: Stable Instructions (If sedation given, give patient instructions): Shingles (ED) Prescriptions: predniSONE [Deltasone] 40 mg PO DAILY 5 Days #10 tab valACYclovir [Valtrex] 1,000 mg PO TID #52 tab Is patient prescribed a controlled substance at d/c from ED?: No Referrals: Sarah Paredes MD [Primary Care Provider] - 1-2 days
[2021-03-20] MEDS ORDERED: MORPHINE SULFATE 4 MG/ML SYRINGE IM STA (15:38)
[2021-03-20] MEDS ORDERED: predniSONE 20 MG TAB PO STA (15:41)
[2021-03-20] MEDS ORDERED: valACYclovir HCL 1,000 MG TABLET PO ONE (16:00)
== END 2021-03-20 16:34 | disposition home or self-care (01) ==
LOC: EC 14:47
DX: B02.9 Zoster without complications (principal); M79.7 Fibromyalgia; M19.90 Unspecified osteoarthritis, unspecified site; Z79.01 Long term (current) use of anticoagulants; Z79.52 Long term (current) use of systemic steroids; Z79.82 Long term (current) use of aspirin; Z79.4 Long term (current) use of insulin; Z79.899 Other long term (current) drug therapy; Z79.890 Hormone replacement therapy; Z82.49 Family history of ischemic heart disease and other diseases of the circulatory system; Z83.3 Family history of diabetes mellitus; Z82.62 Family history of osteoporosis; Z86.711 Personal history of pulmonary embolism; Z90.49 Acquired absence of other specified parts of digestive tract
CPT/HCPCS: 99282; 96372; J2270; J7512

== ENCOUNTER → 2021-03-27 | Outpatient (CLI) | payer MEDICARE, OTHER ==
--- NOTE | 2021-03-27 11:13 | MR ---
Greater EXAMINATION TYPE: MR cervical spine wo con DATE OF EXAM: 03/27/2021 11:04 AM COMPARISON: NONE HISTORY: Neck pain, headaches. Multiplanar MultiSpin echo imaging of the cervical spine was performed. Comparison: none C2-C3: No evidence for degenerative disc disease. No disc bulge/herniation or protrusion. No Canal stenosis. Foramina are patent bilaterally. C3-C4: Moderate disc desiccation. Posterior disc bulge greatest posteriorly and to the left. Mild eff acement ventral thecal sac. Left foraminal encroachment. No central stenosis present. C4-C5: Moderate disc desiccation broad-based posterior disc bulge. Effacement ventral thecal sac with out central stenosis or disc herniation. Bilateral neural foraminal encroachment seen. C5-C6: Moderate disc desiccation broad-based posterior disc bulge. Effacement ventral thecal sac with out central stenosis or disc herniation. Bilateral neural foraminal encroachment seen. C6-C7: Moderate disc desiccation broad-based posterior disc bulge. Effacement ventral thecal sac with out central stenosis or disc herniation. Bilateral neural foraminal encroachment seen. C7-T1: No evidence for degenerative disc disease. No disc bulge/herniation or protrusion. No Canal stenosis. Foramina are patent bilaterally. Cervical segments are intact. There is normal alignment. Cervical spinal cord is of normal signal. Craniovertebral junction relationships are within normal limits. IMPRESSION: 1. Multilevel degenerative disc disease with disc bulging and foraminal encroachment as outlined darwin mack
== END | disposition home or self-care (01) ==
LOC: RADMRIMAIN 10:21
PROVIDERS: ATTEND Internal Medicine
DX: M50.223 Other cervical disc displacement at C6-C7 level (principal); M99.71 Connective tissue and disc stenosis of intervertebral foramina of cervical region
CPT/HCPCS: 72141

== ENCOUNTER → 2021-06-15 | Outpatient (CLI) | payer MEDICARE, OTHER ==
--- NOTE | 2021-06-15 19:23 | BD ---
EXAMINATION TYPE: Axial Bone Density DATE OF EXAM: 06/15/2021 COMPARISON: 2014 CLINICAL HISTORY: POST MENOPAUSAL screening Height: 5'5 Weight: 225 FRAX RISK QUESTIONS: Secondary Osteoporosis: RISK FACTORS HISTORY OF: Active: no Postmenopausal woman: y Frequent falls: pt in wheelchair Poor Health: y MEDICATIONS: Additional Medications: unsure medication Additional History: poor historian EXAM MEASUREMENTS: Bone mineral densitometry was performed using the [employer]. Bone mineral density as measured about the Lumbar spine is: ----- L1-L4(G/cm2): 0.935 T Score Values are as follows: ----- L2: -1.9 ----- L3: -2.3 ----- L4: -1.2 ----- L1-L4: -2.0 Bone mineral density has: Decreased -10.0% since study of: 02/12/2015 Bone mineral density about the R hip (g/cm2): 0.817 Bone mineral density about the L hip (g/cm2): 0.780 T Score values are as follows: -----R Neck: -1.6 -----L Neck: -1.9 -----R Total: -1.1 -----L Total: -1.0 Bone mineral density has: Decreased -8.0% since study of: 02/12/2015 IMPRESSION: Osteopenia (T Score between -2.5 and -1). There is slightly increased risk of fracture and the patient may be considered for treatment. Re-Screen 2-5 years. NOTE: T-SCORE=SD OF THE YOUNG ADULT MEAN.
== END | disposition home or self-care (01) ==
LOC: RADBDWWP 13:09
PROVIDERS: ATTEND Internal Medicine
DX: M85.89 Other specified disorders of bone density and structure, multiple sites (principal); Z78.0 Asymptomatic menopausal state
CPT/HCPCS: 77080

== ENCOUNTER 2021-08-11 11:40 | Emergency (ER) | payer MEDICARE, OTHER ==
[2021-08-11 11:51] VITALS: RESP 18; TEMP 97.3
[2021-08-11] MEDS ORDERED: BACITRACIN OINT 1 EACH PACKET TOPICAL ONE (12:22)
--- NOTE | 2021-08-11 12:33 | ED ---
Lower Extremity Injury HPI - General Chief Complaint: Extremity Injury, Lower Stated Complaint: leg wound Time Seen by Provider: 08/11/21 12:11 Source: EMS Mode of arrival: EMS Limitations: physical limitation - History of Present Illness Initial Comments: The patient is a 65-year-old female who presents to the emergency department via EMS. Patient states that she injured her right francois 5 days ago walking around in her house. The patient is concerned about the wound's appearance. Per EMS, the family expressed concern about how long it was taking to heal. The patient is a very poor historian with confusion and expressive aphasia at baseline. She also reports pain to the left francois, stating this was injured in her house as well, however there are no obvious wounds. She has been able to ambulate since arrival. MD Complaint: leg injury Onset/Timin -: days(s) Injury: Leg: Right (right francois) Type of Injury: unknown Place: home Severity scale (1-10): 8 Improves With: rest Worsens With: movement, palpation - Related Data Home Medications Medication Instructions Recorded Confirmed Aspirin 81 mg PO DAILY@0900 11/08/13 11/24/20 Baclofen [Lioresal] 10 mg PO DAILY@169911/08/13 11/24/20 Citalopram Hydrobromide [CeleXA] 40 mg PO HS@209911/08/13 11/24/20 Ferrous Sulfate [Feosol] 325 mg PO DAILY@169911/08/13 11/24/20 Furosemide [Lasix] 40 mg PO BID@0900,1700 11/08/13 11/24/20 Montelukast [Singulair] 10 mg PO DAILY@169911/08/13 11/24/20 Pantoprazole Sodium [Protonix] 40 mg PO DAILY@0600 11/08/13 11/24/20 Potassium Chloride 20 meq PO BID@0900,1700 11/08/13 11/24/20 Fluticasone Nasal [place] [Flonase 1 spray EA NOSTRIL DAILY@0900 11/18/15 11/24/20 Nasal [place]] Methylphenidate HCl [Ritalin] 20 mg PO TID@0900,1200,1500 11/18/15 11/24/20 Pregabalin [Lyrica] 100 mg PO TID@0900,1700,2100 17 05/25/21 Folic Acid 0.4 mg PO DAILY@0908/18/16 11/24/20 Fexofenadine HCl 180 mg PO DAILY@209905/11/19 11/24/20 Warfarin [Coumadin] 7.5 mg PO DAILY@1700 12/13/19 11/24/20 Nitroglycerin Sl Tabs [Nitrostat] 0.4 mg SUBLINGUAL Q5M PRN 04/29/20 11/24/20 fentaNYL 50MCG/HR PATCH [Duragesic 1 patch TRANSDERM Q72H 05/01/20 11/24/20 50MCG/HR] Cholecalciferol [Vitamin D3 (25 50 mcg PO DAILY@89911/24/20 11/24/20 Mcg = 1000 Iu)] Previous Rx's Medication Instructions Recorded Acetaminophen Tab [Tylenol] 500 mg PO Q6HR PRN tab 12/07/20 INSULIN ASPART (NovoLOG) [NovoLOG 0 unit SQ ACHS vial 12/07/20 (formulary)] Levothyroxine Sodium [Synthroid] 88 mcg PO 0630 tab 12/07/20 predniSONE [Deltasone] 40 mg PO DAILY 5 Days #10 tab 03/20/21 valACYclovir [Valtrex] 1,000 mg PO TID #52 tab 03/20/21 Allergies Allergy/AdvReac Type Severity Reaction Status Date / Time adhesive Allergy SKIN Verified 03/20/21 14:56 PEELING Review of Systems ROS Statement: Those systems with pertinent positive or pertinent negative responses have been documented in the HPI. ROS Other: All systems not noted in ROS Statement are negative. Constitutional: Denies: fever, chills Respiratory: Denies: cough, dyspnea Cardiovascular: Denies: chest pain, palpitations Gastrointestinal: Denies: abdominal pain, nausea Musculoskeletal: Reports: other (Bilateral francois pain) Skin: Reports: other (ecchymosis and eschar formation of the right francois) Neurological: Denies: headache Past Medical History Past Medical History: Chest Pain / Angina, CVA/TIA, Fibromyalgia, Musculoskeletal Disorder, Neurologic Disorder, Osteoarthritis (OA), Pulmonary Embolus (PE), Sleep Apnea/CPAP/BIPAP, Thyroid Disorder Additional Past Medical History / Comment(s): MULTIPLE SCLEROSIS, HX OF CVA 2006 WITH R SIDED WEAKNESS AND DYSPHASIA-MUCH IMPROVED, MIGRAINES, SLEEP APNEA(HAS C-PAP MACHINE BUT DOES NOT USE) ABD HERNIA,CHRONIC PAIN ESPECIALLY ON R SIDE OF BODY AND LOW BACK . PAINFUL FOR HER TO LIE FLAT. HX OF NOSEBLEED JUL 2014 AND RECEIVED PLASMA TRANSFUSION. takes pills with applesauce. History of Any Multi-Drug Resistant Organisms: VRE Date of last positivie culture/infection: 10/24/09 confirmed with infectious disease nurse on 08/18/16. MDRO Source:: URINE Past Surgical History: Appendectomy, Cholecystectomy, Hysterectomy Additional Past Surgical History / Comment(s): Incisional hernia repair, laparoscopic lysis of adhesions in 1987, ganglion cyst removal of the left wrist, patent foramen ovale patch in 2006, RF ablation for back pain. Past Anesthesia/Blood Transfusion Reactions: No Reported Reaction Past Psychological History: Depression Smoking Status: Never smoker Past Alcohol Use History: None Reported Past Drug Use History: None Reported - Past Family History Mother Family Medical History: Hypertension Additional Family Medical History / Comment(s): osteoporosis Father Family Medical History: Dementia, Diabetes Mellitus General Exam Limitations: physical limitation General appearance: alert, in no apparent distress Head exam: Present: atraumatic, normocephalic Respiratory exam: Present: normal lung sounds bilaterally. Absent: respiratory distress, wheezes, rales, rhonchi, stridor Cardiovascular Exam: Present: regular rate, normal rhythm, normal heart sounds. Absent: systolic murmur, diastolic murmur, rubs, gallop, clicks Right Lower Leg exam: Present: tenderness, abrasion (circular eschar formation of approximately 4cm in diameter, no drainage), ecchymosis. Absent: swelling, erythema Neurovascular tendon exam: Absent: no vascular compromise, pulse deficit, abnormal cap refill, extremity cold to touch, pallor Left Lower Leg exam: Present: tenderness. Absent: swelling, abrasion, ecchymosis, erythema Neurological exam: Present: alert, oriented X3, other (expressive aphasia) Psychiatric exam: Present: normal affect, normal mood Course Vital Signs 08/11/21 11:47 Temperature 97.3 F L Pulse Rate 70 Respiratory 18 Rate Blood Pressure 103/51 O2 Sat by Pulse 98 Oximetry - Reevaluation(s) Time: 13:08 (Patient continues to rest comfortably in bed. ) Time: 14:13 (Patient was able to ambulate to the restroom with assistance.) Medical Decision Making - Medical Decision Making Evaluation of patient's right lower extremity reveals eschar formation on the right francois surrounded by ecchymosis. No signs of infection such as erythema, drainage, or increased heat. Bacitracin ointment applied and dressings applied. Disposition Clinical Impression: Wound of right lower extremity Disposition: HOME SELF-CARE Condition: Stable Instructions (If sedation given, give patient instructions): Acute Wounds (ED), Abrasion (ED) Additional Instructions: Return to the ER if there is any worsening of pain or symptoms, or if there is development of any redness or drainage of the wound. Is patient prescribed a controlled substance at d/c from ED?: No Referrals: Sarah Paredes MD [Primary Care Provider] - 1-2 days
[2021-08-11 15:58] VITALS: BP 112/59; PULSE 78
== END 2021-08-11 16:06 | disposition home or self-care (01) ==
LOC: EC 11:40
DX: S81.801A Unspecified open wound, right lower leg, initial encounter (principal); M19.90 Unspecified osteoarthritis, unspecified site; M79.7 Fibromyalgia; F32.A Depression, unspecified; Z79.82 Long term (current) use of aspirin; Z79.01 Long term (current) use of anticoagulants; Z79.4 Long term (current) use of insulin; Z79.890 Hormone replacement therapy; Z79.899 Other long term (current) drug therapy; Z86.711 Personal history of pulmonary embolism; X58.XXXA Exposure to other specified factors, initial encounter; Y92.009 Unspecified place in unspecified non-institutional (private) residence as the place of occurrence of the external cause
CPT/HCPCS: 99283

== ENCOUNTER 2022-03-10 16:54 | Inpatient (IN) | payer MEDICARE ==
[2022-03-10] MEDS ORDERED: SODIUM CHLORIDE 0.9% 1,000 ML IV ONE (17:09)
--- NOTE | 2022-03-10 17:13 | ED ---
General Adult HPI - General Stated complaint: altered mental Time Seen by Provider: 03/10/22 16:59 Source: patient, RN notes reviewed Limitations: altered mental status - History of Present Illness Initial comments: Patient is a pleasant 66-year-old female presenting to the emergency department with concerns for change in mental status. Unknown onset. Patient is a poor historian. Patient is able to state her name however feels she is at her home. Patient is covered with stool and urine. Patient does have history of MS. EMS did remove a fentanyl patch. Patient complains of diffuse pain. - Related Data Home Medications Medication Instructions Recorded Confirmed Baclofen [Lioresal] 10 mg PO DAILY 11/08/13 03/10/22 Furosemide [Lasix] 40 mg PO BID 11/08/13 03/10/22 Montelukast [Singulair] 10 mg PO DAILY 11/08/13 03/10/22 Pantoprazole Sodium [Protonix] 40 mg PO DAILY 11/08/13 03/10/22 Potassium Chloride 20 meq PO BID 11/08/13 03/10/22 Methylphenidate HCl [Ritalin] 20 mg PO BID 11/18/15 03/10/22 Warfarin [Coumadin] 7.5 mg PO DAILY@1700 12/13/19 03/10/22 fentaNYL 50MCG/HR PATCH [Duragesic 1 patch TRANSDERM Q72H 05/01/20 03/10/22 50MCG/HR] Levothyroxine Sodium [Synthroid] 75 mcg PO DAILY 03/10/22 03/10/22 Pregabalin [Lyrica] 150 mg PO TID 03/10/22 03/10/22 oxyCODONE HCL/ACETAMINOPHEN 1 tab PO BID PRN 03/10/22 03/10/22 [Percocet 5-325 mg] Allergies Allergy/AdvReac Type Severity Reaction Status Date / Time adhesive AdvReac SKIN Verified 03/10/22 17:53 PEELING Review of Systems ROS Statement: Those systems with pertinent positive or pertinent negative responses have been documented in the HPI. ROS Other: All systems not noted in ROS Statement are negative. Limitations: ROS unobtainable due to patients medical condition Past Medical History Past Medical History: Chest Pain / Angina, CVA/TIA, Fibromyalgia, Musculoskeletal Disorder, Neurologic Disorder, Osteoarthritis (OA), Pulmonary Embolus (PE), Sleep Apnea/CPAP/BIPAP, Thyroid Disorder Additional Past Medical History / Comment(s): MULTIPLE SCLEROSIS, HX OF CVA 2006 WITH R SIDED WEAKNESS AND DYSPHASIA-MUCH IMPROVED, MIGRAINES, SLEEP APNEA(HAS C- PAP MACHINE BUT DOES NOT USE) ABD HERNIA,CHRONIC PAIN ESPECIALLY ON R SIDE OF BODY AND LOW BACK . PAINFUL FOR HER TO LIE FLAT. HX OF NOSEBLEED JUL 2014 AND RECEIVED PLASMA TRANSFUSION. takes pills with applesauce. History of Any Multi-Drug Resistant Organisms: VRE Date of last positivie culture/infection: 10/24/09 confirmed with infectious disease nurse on 08/18/16. MDRO Source:: URINE Past Surgical History: Appendectomy, Cholecystectomy, Hysterectomy Additional Past Surgical History / Comment(s): Incisional hernia repair, laparoscopic lysis of adhesions in 1987, ganglion cyst removal of the left wrist, patent foramen ovale patch in 2006, RF ablation for back pain. Past Anesthesia/Blood Transfusion Reactions: No Reported Reaction Past Psychological History: Depression Smoking Status: Never smoker Past Alcohol Use History: None Reported Past Drug Use History: None Reported - Past Family History Mother Family Medical History: Hypertension Additional Family Medical History / Comment(s): osteoporosis Father Family Medical History: Dementia, Diabetes Mellitus General Exam Limitations: altered mental status General appearance: alert, in no apparent distress Head exam: Present: normocephalic Eye exam: Present: normal appearance, PERRL, EOMI ENT exam: Present: mucous membranes dry Neck exam: Present: normal inspection. Absent: tenderness Respiratory exam: Present: normal lung sounds bilaterally Cardiovascular Exam: Present: regular rate, normal rhythm GI/Abdominal exam: Present: soft, tenderness (Mild diffuse tenderness) Extremities exam: Present: tenderness (Mild tenderness right thigh) Neurological exam: Present: alert, altered Expanded Neurological exam: Present: protecting the airway Patient oriented to: Present: person. Absent: place, time Cranial nerves: EOM's Intact: Normal Motor strength exam: RUE: 5, LUE: 5, RLE: 3 (Limited by pain per patient), LLE: 5 Eye Response: (3) open to voice Motor Response: (6) obeys commands Verbal Response: (4) confused conversation Psychiatric exam: Present: normal affect, normal mood Skin exam: Present: normal color Course Vital Signs 03/10/22 03/10/22 03/10/22 17:05 17:42 18:56 Temperature 98.1 F Pulse Rate 80 82 86 Respiratory 20 20 16 Rate Blood Pressure 120/75 120/75 117/59 O2 Sat by Pulse 94 L 96 96 Oximetry EKG Findings - EKG Comments: EKG Findings:: Supraventricular rhythm with a rate of 80. Artifact present. Q RS 90. QT 258. QTC 294. Normal axis. Normal QRS. No acute ST change. Medical Decision Making - Medical Decision Making Patient reevaluated and resting comfortably in bed. Patient and family updated on results and plan. Case was discussed with practitioner Marcel Triana, covering for [facility] [employer], covering for Dr. Paredes, who will admit. - Lab Data Result diagrams: 03/10/22 17:20 03/10/22 17:20 Lab Results 03/10/22 03/10/22 03/10/22 Range/Units 17:20 17:20 17:20 WBC 6.0 (3.8-10.6) k/uL RBC 4.19 (3.80-5.40) m/uL Hgb 12.9 (11.4-16.0) gm/dL Hct 38.4 (34.0-46.0) % MCV 91.6 (80.0-100.0) fL MCH 30.9 (25.0-35.0) pg MCHC 33.7 (31.0-37.0) g/dL RDW 14.5 (11.5-15.5) % Plt Count 86 L (150-450) k/uL MPV 13.2 Neutrophils % 70 % Lymphocytes % 19 % Monocytes % 7 % Eosinophils % 1 % Basophils % 0 % Neutrophils # 4.2 (1.3-7.7) k/uL Lymphocytes # 1.1 (1.0-4.8) k/uL Monocytes # 0.4 (0-1.0) k/uL Eosinophils # 0.1 (0-0.7) k/uL Basophils # 0.0 (0-0.2) k/uL PT 55.9 H (9.0-12.0) sec INR 5.6 H* (<1.2) APTT 37.7 H (22.0-30.0) sec Sodium 139 (137-145) mmol/L Potassium 3.8 (3.5-5.1) mmol/L Chloride 103 (98-107) mmol/L Carbon Dioxide 25 (22-30) mmol/L Anion Gap 11 mmol/L BUN 27 H (7-17) mg/dL Creatinine 1.34 H (0.52-1.04) mg/dL Est GFR (CKD-EPI)AfAm 47 (>60 ml/min/1.73 sqM) Est GFR (CKD-EPI)NonAf 41 (>60 ml/min/1.73 sqM) Glucose 159 H (74-99) mg/dL Calcium 8.5 (8.4-10.2) mg/dL Total Bilirubin 1.2 (0.2-1.3) mg/dL AST 72 H (14-36) U/L ALT 29 (4-34) U/L Alkaline Phosphatase 76 (38-126) U/L Troponin I (0.000-0.034) ng/mL Total Protein 5.3 L (6.3-8.2) g/dL Albumin 3.4 L (3.5-5.0) g/dL Urine Color Urine Appearance (Clear) Urine pH (5.0-8.0) Ur Specific [place] (1.001-1.035) Urine Protein (Negative) Urine Glucose (UA) (Negative) Urine Ketones (Negative) Urine Blood (Negative) Urine Nitrite (Negative) Urine Bilirubin (Negative) Urine Urobilinogen (<2.0) mg/dL Ur Leukocyte Esterase (Negative) Urine RBC (0-5) /hpf Urine WBC (0-5) /hpf Ur Squamous Epith Cells (0-4) /hpf Urine Mucus (None) /hpf Urine Opiates Screen (NotDetected) Ur Oxycodone Screen (NotDetected) Urine Methadone Screen (NotDetected) Ur Propoxyphene Screen (NotDetected) Ur Barbiturates Screen (NotDetected) U Tricyclic Antidepress (NotDetected) Ur Phencyclidine Scrn (NotDetected) Ur Amphetamines Screen (NotDetected) U Methamphetamines Scrn (NotDetected) U Benzodiazepines Scrn (NotDetected) Urine Cocaine Screen (NotDetected) U Marijuana (THC) Screen (NotDetected) 03/10/22 03/10/22 Range/Units 17:20 17:38 WBC (3.8-10.6) k/uL RBC (3.80-5.40) m/uL Hgb (11.4-16.0) gm/dL Hct (34.0-46.0) % MCV (80.0-100.0) fL MCH (25.0-35.0) pg MCHC (31.0-37.0) g/dL RDW (11.5-15.5) % Plt Count (150-450) k/uL MPV Neutrophils % % Lymphocytes % % Monocytes % % Eosinophils % % Basophils % % Neutrophils # (1.3-7.7) k/uL Lymphocytes # (1.0-4.8) k/uL Monocytes # (0-1.0) k/uL Eosinophils # (0-0.7) k/uL Basophils # (0-0.2) k/uL PT (9.0-12.0) sec INR (<1.2) APTT (22.0-30.0) sec Sodium (137-145) mmol/L Potassium (3.5-5.1) mmol/L Chloride (98-107) mmol/L Carbon Dioxide (22-30) mmol/L Anion Gap mmol/L BUN (7-17) mg/dL Creatinine (0.52-1.04) mg/dL Est GFR (CKD-EPI)AfAm (>60 ml/min/1.73 sqM) Est GFR (CKD-EPI)NonAf (>60 ml/min/1.73 sqM) Glucose (74-99) mg/dL Calcium (8.4-10.2) mg/dL Total Bilirubin (0.2-1.3) mg/dL AST (14-36) U/L ALT (4-34) U/L Alkaline Phosphatase (38-126) U/L Troponin I <0.012 (0.000-0.034) ng/mL Total Protein (6.3-8.2) g/dL Albumin (3.5-5.0) g/dL Urine Color Yellow Urine Appearance Clear (Clear) Urine pH 6.0 (5.0-8.0) Ur Specific [place] 1.040 H (1.001-1.035) Urine Protein 1+ H (Negative) Urine Glucose (UA) Negative (Negative) Urine Ketones 2+ H (Negative) Urine Blood Negative (Negative) Urine Nitrite Negative (Negative) Urine Bilirubin Negative (Negative) Urine Urobilinogen 2.0 (<2.0) mg/dL Ur Leukocyte Esterase Negative (Negative) Urine RBC 1 (0-5) /hpf Urine WBC 5 (0-5) /hpf Ur Squamous Epith Cells 3 (0-4) /hpf Urine Mucus Few H (None) /hpf Urine Opiates Screen Not Detected (NotDetected) Ur Oxycodone Screen Not Detected (NotDetected) Urine Methadone Screen Not Detected (NotDetected) Ur Propoxyphene Screen Not Detected (NotDetected) Ur Barbiturates Screen Not Detected (NotDetected) U Tricyclic Antidepress Not Detected (NotDetected) Ur Phencyclidine Scrn Not Detected (NotDetected) Ur Amphetamines Screen Detected H (NotDetected) U Methamphetamines Scrn Not Detected (NotDetected) U Benzodiazepines Scrn Not Detected (NotDetected) Urine Cocaine Screen Not Detected (NotDetected) U Marijuana (THC) Screen Not Detected (NotDetected) - Radiology Data Radiology results: report reviewed (Computed tomography scan brain does not reveal acute abnormality), image reviewed (Chest x-ray, abdominal x-ray, right femur x-ray revealed no acute process) Disposition Clinical Impression: Altered mental status Disposition: ADMITTED IP TO THIS HOSP Is patient prescribed a controlled substance at d/c from ED?: No Referrals: Sarah Paredes MD [Primary Care Provider] - 1-2 days Time of Disposition: 19:55
[2022-03-10 17:53] LABS: Albumin 3.4 g/dL (3.5-5.0); Calcium 8.5 mg/dL (8.4-10.2); Potassium 3.8 mmol/L (3.5-5.1); Total Bilirubin 1.2 mg/dL (0.2-1.3); Total Protein 5.3 g/dL (6.3-8.2)
[2022-03-10 17:55] LABS: Appearance,Urine Clear (Clear); Bilirubin,Urine Negative (Negative); Blood,Urine Negative (Negative); Color,Urine Yellow; Glucose,Urine (UA) Negative (Negative); Ketones,Urine 2+ (Negative); Leukocyte Esterase,Urine Negative (Negative); Mucus,Urine Few /hpf; Nitrite,Urine Negative (Negative); Protein,Urine 1+ (Negative); RBC,Urine 1 /hpf (0-5); Squamous Epithelial Cell,Urine 3 /hpf (0-4); WBC,Urine 5 /hpf (0-5)
[2022-03-10 18:05] LABS: Amphetamine Screen,Urine Detected (NotDetected); Barbiturate Screen,Urine Not Detected (NotDetected); Benzodiazepines Screen,Urine Not Detected (NotDetected); Cocaine Screen,Urine Not Detected (NotDetected); Methadone Screen, Urine Not Detected (NotDetected); Opiate Screen,Urine Not Detected (NotDetected); Oxycodone Screen, Urine Not Detected (NotDetected); Phencyclidine Screen,Urine Not Detected (NotDetected); Tricyclic Antidepressant,Urine Not Detected (NotDetected); Urn Cannabinoid Scrn Not Detected (NotDetected)
[2022-03-10 18:07] LABS: Basophils % (A) 0 %; Eosinophils # (A) 0.1 k/uL (0-0.7); Eosinophils % (A) 1 %; HCT 38.4 % (34.0-46.0); HGB 12.9 gm/dL (11.4-16.0); Lymphocytes # (A) 1.1 k/uL (1.0-4.8); Lymphocytes % (A) 19 %; MCH 30.9 pg (25.0-35.0); MCHC 33.7 g/dL (31.0-37.0); MCV 91.6 fL (80.0-100.0); Mean Platelet Volume 13.2; Monocytes # (A) 0.4 k/uL (0-1.0); Monocytes % (A) 7 %; Neutrophils # (A) 4.2 k/uL (1.3-7.7); Neutrophils % (A) 70 %; RBC 4.19 m/uL (3.80-5.40); RDW 14.5 % (11.5-15.5)
[2022-03-10 18:09] LABS: Platelet Count 86 k/uL (150-450)
[2022-03-10 18:32] LABS: Partial Thromboplastin Time 37.7 sec (22.0-30.0); Prothrombin Time 55.9 sec (9.0-12.0)
[2022-03-10 18:33] LABS: INR 5.6 (<1.2)
--- NOTE | 2022-03-10 18:37 | CT ---
EXAMINATION TYPE: CT brain wo con DATE OF EXAM: 03/10/2022 HISTORY: AMS CT DLP: 1184.4 mGycm. Automated Exposure Control for Dose Reduction was Utilized. TECHNIQUE: CT scan of the head is performed without contrast. COMPARISON: 03/10/2022 FINDINGS: Previously seen right MCA territory encephalomalacia is redemonstrated without interval katherin nge. There is no acute intracranial hemorrhage or midline shift identified. There is diffuse ventricular a nd sulcal prominence consistent with diffuse age-related cerebral atrophy. There is low-attenuation in the periventricular white matter consistent with chronic small vessel ischemic change. The globes are intact and the visualized sinuses are clear. IMPRESSION: No acute process. Stable CT findings.
--- NOTE | 2022-03-10 19:20 | XR ---
PROCEDURE: XR femur RT - 6 total views DATE AND TIME: 03/10/2022 6:22 PM CLINICAL INDICATION: PHH; pain TECHNIQUE: Department protocol COMPARISON: None FINDINGS: There is no fracture or malalignment. The soft tissues are unremarkable. IMPRESSION: NO ACUTE PROCESS.
--- NOTE | 2022-03-10 19:22 | XR ---
EXAMINATION: XR chest 1V DATE AND TIME: 03/10/2022 6:22 PM CLINICAL INDICATION: PHH; altered mental status TECHNIQUE: AP COMPARISON: None FINDINGS: The lungs are clear. The pleural spaces are negative. The cardiac silhouette is not enlarged. The remainder of the mediastinal silhouette is unremarkable. The skeletal structures and soft tissues are negative for acute findings. IMPRESSION: Negative examination.
--- NOTE | 2022-03-10 19:24 | XR ---
EXAMINATION TYPE: XR abdomen 3V DATE OF EXAM: 03/10/2022 CLINICAL HISTORY: TECHNIQUE: 3 AP supine radiographs were obtained. COMPARISON: None. FINDINGS: Scattered gas is seen in non-distended small bowel loops. Gas and fecal material is seen in non-dist ended colon. Colonic stool volume unremarkable. There is no evidence of visceromegaly or abnormal calcification. The lung bases are clear and the osseous structures are intact. IMPRESSION: No definite acute radiographic process.
[2022-03-10] MEDS ORDERED: NALOXONE 0.4 MG/ML 1 ML VIAL IV PRN (19:55)
[2022-03-10] MEDS: SODIUM CHLORIDE 0.9% 1,000 ML IV SCH (20:52)
[2022-03-10] MEDS: FUROSEMIDE 40 MG TAB PO SCH (23:25)
[2022-03-11] MEDS: LEVOTHYROXINE 75 MCG TAB PO SCH (05:38)
[2022-03-11] MEDS: FUROSEMIDE 40 MG TAB PO SCH ×2 (08:47→16:47)
[2022-03-11] MEDS: MONTELUKAST 10 MG TAB PO SCH (08:48)
[2022-03-11] MEDS ORDERED: PANTOPRAZOLE 40 MG TABLET PO SCH (09:00)
[2022-03-11 09:40] LABS: Basophils # (A) 0.01 X 10*3/uL (0.00-0.10); Basophils % (A) 0.2 %; Eosinophils # (A) 0.01 X 10*3/uL (0.04-0.35); Eosinophils % (A) 0.2 %; HCT 22.8 % (37.2-46.3); HGB 7.5 g/dL (12.0-15.0); Immature Grans, Automated 0.3 %; Immature Platelet Fraction 19.8 % (1.1-6.1); Lymphocytes # (A) 0.71 X 10*3/uL (0.90-5.00); Lymphocytes % (A) 11.7 %; MCH 30.4 pg (27.0-32.0); MCHC 32.9 g/dL (32.0-37.0); MCV 92.3 fL (80.0-97.0); Monocytes # (A) 0.67 X 10*3/uL (0.20-1.00); NRBC Per 100 WBC 0 /100 WBCS (0.0-0.0); Neutrophils # (A) 4.66 X 10*3/uL (1.80-7.70); Neutrophils % (A) 76.6 %; Platelet Count 76 X 10*3/uL (140-440); RBC 2.47 X 10*6/uL (4.10-5.20); RBC Morphology NORMAL; RDW 14.3 % (11.5-14.5); WBC 6.08 X 10*3/uL (4.50-10.00)
[2022-03-11 09:54] LABS: African American GFR (CKD) 44.6 (60.0-200.0); Albumin 3.3 g/dL (3.8-4.9); Albumin/Globulin Ratio 2.36 (1.60-3.17); Anion Gap 9.7 mmol/L (10.00-18.00); BUN/Creat Ratio 16.36 Ratio (12.00-20.00); Blood Urea Nitrogen 22.9 mg/dL (9.0-27.0); Calcium 8.3 mg/dL (8.7-10.3); Carbon Dioxide 28.3 mmol/L (20.0-27.5); Globulin 1.4 g/dL (1.6-3.3); Non-African American GFR(CKD) 38.5 (60.0-200.0); Potassium 3.9 mmol/L (3.5-5.5); Total Bilirubin 0.8 mg/dL (0.30-1.20); Total Protein 4.7 g/dL (6.2-8.2)
[2022-03-11 10:34] LABS: Prothrombin Time 53.5 sec (9.0-12.0)
[2022-03-11 10:38] LABS: INR 5.3 (<1.2)
[2022-03-11] MEDS ORDERED: PHYTONADIONE 5 MG in SODIUM CHLORIDE 0.9% 50 ML IVPB STA (11:07)
--- NOTE | 2022-03-11 11:41 | P.HPIM ---
History of Present Illness This is a pleasant 66 years old female with past medical history of hypothyroidism, CVA/TIA, fibromyalgia, osteoarthritis, pulmonary embolism, sleep apnea Medication review were with [facility]: She is on re-tunneling twice daily, Percocet 5 mg twice daily, Lyrica Patient is a known history of multiple sclerosis and CVA. She lives with her at home who takes care of her. At baseline she looks little bit confused, as per bedside nurse recognize her from previous admission today her mentation looks at baseline. She has chronic dysarthria. And she and her were in the process of following up with neurologist at [facility] for further treatment. Also she is an Coumadin for her history of PE. Patient however has poor historian, she could not tell where she is and she was disoriented to time and person as well but she can't tell me her name and she follows simple commands and some questions appropriately. I called the Mr. Shaikh, according to him 2 days ago she was sitting in the chair and her bedroom at usual and he wants to check on her, he noticed that she was sitting on the toilet seat with some stool mass underneath her which is unusual for her and she was complaining of from pain all over but according to the male in the abdomen and lower extremities, he could not get her up initially he tried but she hurts but eventually he could get her into the her on chair. He gave her more pain medication but that did not help her, she was still confused and sleepy to him and she was still hurting a lot so he decided to bring her to the hospital. Patient is complaining of from abdominal pain and tenderness which tends also lower extremity pain and tenderness especially the right lower extremity and the right thigh which looks more swollen than the left and more tense but no evidence of ecchymosis. Vital signs stable. Blood pressure is low normal which looks like her baseline. CBC is unremarkable. Platelet count SoloSite 86. INR is elevated 5.6 Creatinine 1.3 which is baseline of 1.-1.4. Pulse is 159. Liver enzymes not significantly elevated. Urinalysis showing concentrated sample 1+ protein and 2+ tone. Urine drug screen is positive for amphetamine. EKG showing supraventricular rhythm at rate of 80 Abdominal x-ray, no acute abnormality Chest x-ray: Negative exam Right femoral x-ray, no acute process CT of the brain no acute process Patient is on normal saline at 75 mL prior within urology is consulted Review of Systems Review of systems CONSTITUTIONAL: No fever, no malaise, no fatigue. HEENT: No recent visual problems or hearing problems. Denied any sore throat. CARDIOVASCULAR: No orthopnea, PND, no palpitations, no syncope. PULMONARY: No shortness of breath, no cough, no hemoptysis. GASTROINTESTINAL: No diarrhea, no nausea, no vomiting, . Normoactive bowel sounds. NEUROLOGICAL: No headaches, no weakness, no numbness. HEMATOLOGICAL: Denies any bleeding or petechiae. GENITOURINARY: Denies any burning micturition, frequency, or urgency. MUSCULOSKELETAL/RHEUMATOLOGICAL: Denies any joint pain, swelling, ENDOCRINE: Denies any polyuria or polydipsia. Past Medical History Past Medical History: Chest Pain / Angina, CVA/TIA, Fibromyalgia, Musculoskeletal Disorder, Neurologic Disorder, Osteoarthritis (OA), Pulmonary Embolus (PE), Sleep Apnea/CPAP/BIPAP, Thyroid Disorder Additional Past Medical History / Comment(s): MULTIPLE SCLEROSIS, HX OF CVA 2006 WITH R SIDED WEAKNESS AND DYSPHASIA-MUCH IMPROVED, MIGRAINES, SLEEP APNEA(HAS C- PAP MACHINE BUT DOES NOT USE) ABD HERNIA,CHRONIC PAIN ESPECIALLY ON R SIDE OF BODY AND LOW BACK . PAINFUL FOR HER TO LIE FLAT. HX OF NOSEBLEED JUL 2014 AND RECEIVED PLASMA TRANSFUSION. takes pills with applesauce. History of Any Multi-Drug Resistant Organisms: VRE Date of last positivie culture/infection: 10/24/09 confirmed with infectious misha schreiber nurse on 08/18/16. MDRO Source:: URINE Past Surgical History: Appendectomy, Cholecystectomy, Hysterectomy Additional Past Surgical History / Comment(s): Incisional hernia repair, laparoscopic lysis of adhesions in 1987, ganglion cyst removal of the left wrist, patent foramen ovale patch in 2006, RF ablation for back pain. Past Anesthesia/Blood Transfusion Reactions: No Reported Reaction Past Psychological History: Depression Additional Psychological History / Comment(s): CELEXA. PT HAS DIFFICULTY W/SPEECH BUT IS MUCH IMPROVED. HAS TO LOOK AT DIETARY MENU TO ORDER CAN'T DO IT BY PHONE. Pt resides with her spouse. She uses a cane to ambulate. She also has a walker. Spouse drives her to appointments. Spouse assists her with some ADLs when needed. Smoking Status: Never smoker Past Alcohol Use History: None Reported Past Drug Use History: None Reported Additional Drug Use History / Comment(s): Lives at home with her requires some assistance with ADLs at times - Past Family History Mother Family Medical History: Hypertension Additional Family Medical History / Comment(s): osteoporosis Father Family Medical History: Dementia, Diabetes Mellitus Medications and Allergies Home Medications Medication Instructions Recorded Confirmed Type Baclofen [Lioresal] 10 mg PO DAILY 11/08/13 03/10/22 History Furosemide [Lasix] 40 mg PO BID 11/08/13 03/10/22 History Montelukast [Singulair] 10 mg PO DAILY 11/08/13 03/10/22 History Pantoprazole Sodium [Protonix] 40 mg PO DAILY 11/08/13 03/10/22 History Potassium Chloride 20 meq PO BID 11/08/13 03/10/22 History Methylphenidate HCl [Ritalin] 20 mg PO BID 11/18/15 03/10/22 History Warfarin [Coumadin] 7.5 mg PO DAILY@1700 12/13/19 03/10/22 History fentaNYL 50MCG/HR PATCH [Duragesic 1 patch TRANSDERM Q72H 05/01/20 03/10/22 History 50MCG/HR] Levothyroxine Sodium [Synthroid] 75 mcg PO DAILY 03/10/22 03/10/22 History Pregabalin [Lyrica] 150 mg PO TID 03/10/22 03/10/22 History oxyCODONE HCL/ACETAMINOPHEN 1 tab PO BID PRN 03/10/22 03/10/22 History [Percocet 5-325 mg] Allergies Allergy/AdvReac Type Severity Reaction Status Date / Time adhesive AdvReac SKIN Verified 03/10/22 17:53 PEELING Physical Exam Vitals: Vital Signs Temp Pulse Pulse Resp BP BP BP 03/11/22 11:08 85 108/68 93/63 03/11/22 07:00 98.5 F 76 17 101/63 03/11/22 02:22 99.5 F 84 18 100/68 03/10/22 21:36 98.0 F 83 16 99/50 03/10/22 20:49 65 16 135/68 03/10/22 20:07 65 16 140/80 03/10/22 18:56 86 16 117/59 03/10/22 17:42 82 20 120/75 03/10/22 17:05 98.1 F 80 20 120/75 Pulse Ox 03/11/22 11:08 03/11/22 07:00 93 L 03/11/22 02:22 97 03/10/22 21:36 99 03/10/22 20:49 96 03/10/22 20:07 95 03/10/22 18:56 96 03/10/22 17:42 96 03/10/22 17:05 94 L Intake and Output 03/10/22 03/11/22 03/11/22 22:59 06:59 14:59 Intake Total 400 Output Total 525 550 Balance -525 -550 400 Intake: Oral 400 Output: Urine 525 550 Other: Voiding Method Indwelling Catheter Weight 106 kg GENERAL: The patient is alert and oriented x3, not in any acute distress. Well developed, well nourished. HEENT: Pupils are round and equally reacting to light. EOMI. No scleral icterus. No conjunctival pallor. Normocephalic, atraumatic. No pharyngeal erythema. No thyromegaly. CARDIOVASCULAR: S1 and S2 present. No murmurs, rubs, or gallops. PULMONARY: Chest is clear to auscultation, no wheezing or crackles. -ABDOMEN: Soft, abdomen tenderness with guarding, nondistended, normoactive bowel sounds. No palpable organomegaly. MUSCULOSKELETAL: No joint swelling or deformity. -EXTREMITIES: No cyanosis, clubbing, or pedal edema. Right leg is tender and swollen especially thigh. Left leg is markedly swollen and painful NEUROLOGICAL: Gross neurological examination did not reveal any focal deficits. SKIN: No rashes. no petechiae. Results CBC & Chem 7: 03/11/22 04:19 03/11/22 04:19 Labs: Abnormal Lab Results - Last 24 Hours (Table) 03/10/22 03/10/22 03/10/22 Range/Units 17:20 17:20 17:20 RBC (4.10-5.20) X 10*6/uL Hgb (12.0-15.0) g/dL Hct (37.2-46.3) % Plt Count 86 L (150-450) k/uL Plt Count Comment Lymphocytes # (0.90-5.00) X 10*3/uL Eosinophils # (0.04-0.35) X 10*3/uL Immature Plt Fraction (1.1-6.1) % PT 55.9 H (9.0-12.0) sec INR 5.6 H* (<1.2) APTT 37.7 H (22.0-30.0) sec Carbon Dioxide (20.0-27.5) mmol/L Anion Gap (10.00-18.00) mmol/L BUN 27 H (7-17) mg/dL Creatinine 1.34 H (0.52-1.04) mg/dL Est GFR (CKD-EPI)AfAm (60.0-200.0) Est GFR (CKD-EPI)NonAf (60.0-200.0) Glucose 159 H (74-99) mg/dL Calcium (8.7-10.3) mg/dL AST 72 H (14-36) U/L Total Protein 5.3 L (6.3-8.2) g/dL Albumin 3.4 L (3.5-5.0) g/dL Globulin (1.6-3.3) g/dL Ur Specific [place] (1.001-1.035) Urine Protein (Negative) Urine Ketones (Negative) Urine Mucus (None) /hpf Ur Amphetamines Screen (NotDetected) 03/10/22 03/11/22 03/11/22 Range/Units 17:38 04:19 04:19 RBC 2.47 L (4.10-5.20) X 10*6/uL Hgb 7.5 L (12.0-15.0) g/dL Hct 22.8 L (37.2-46.3) % Plt Count 76 L (150-450) k/uL Plt Count Comment DECREASED A Lymphocytes # 0.71 L (0.90-5.00) X 10*3/uL Eosinophils # 0.01 L (0.04-0.35) X 10*3/uL Immature Plt Fraction 19.8 H (1.1-6.1) % PT (9.0-12.0) sec INR (<1.2) APTT (22.0-30.0) sec Carbon Dioxide 28.3 H (20.0-27.5) mmol/L Anion Gap 9.70 L (10.00-18.00) mmol/L BUN (7-17) mg/dL Creatinine (0.52-1.04) mg/dL Est GFR (CKD-EPI)AfAm 44.6 L (60.0-200.0) Est GFR (CKD-EPI)NonAf 38.5 L (60.0-200.0) Glucose 164 H (74-99) mg/dL Calcium 8.3 L (8.7-10.3) mg/dL AST 70 H (14-36) U/L Total Protein 4.7 L (6.3-8.2) g/dL Albumin 3.3 L (3.5-5.0) g/dL Globulin 1.4 L (1.6-3.3) g/dL Ur Specific [place] 1.040 H (1.001-1.035) Urine Protein 1+ H (Negative) Urine Ketones 2+ H (Negative) Urine Mucus Few H (None) /hpf Ur Amphetamines Screen Detected H (NotDetected) 03/11/22 Range/Units 09:36 RBC (4.10-5.20) X 10*6/uL Hgb (12.0-15.0) g/dL Hct (37.2-46.3) % Plt Count (150-450) k/uL Plt Count Comment Lymphocytes # (0.90-5.00) X 10*3/uL Eosinophils # (0.04-0.35) X 10*3/uL Immature Plt Fraction (1.1-6.1) % PT 53.5 H (9.0-12.0) sec INR 5.3 H* (<1.2) APTT (22.0-30.0) sec Carbon Dioxide (20.0-27.5) mmol/L Anion Gap (10.00-18.00) mmol/L BUN (7-17) mg/dL Creatinine (0.52-1.04) mg/dL Est GFR (CKD-EPI)AfAm (60.0-200.0) Est GFR (CKD-EPI)NonAf (60.0-200.0) Glucose (74-99) mg/dL Calcium (8.7-10.3) mg/dL AST (14-36) U/L Total Protein (6.3-8.2) g/dL Albumin (3.5-5.0) g/dL Globulin (1.6-3.3) g/dL Ur Specific [place] (1.001-1.035) Urine Protein (Negative) Urine Ketones (Negative) Urine Mucus (None) /hpf Ur Amphetamines Screen (NotDetected) Thrombosis Risk Factor Assmnt - Choose All That Apply Each Factor Represents 1 point: Obesity (BMI >25) Each Risk Factor Represents 2 Points: Age 61-74 years Each Risk Factor Represents 3 Points: History of DVT/PE Thrombosis Risk Factor Assessment Total Risk Factor Score: 6 Thrombosis Risk Factor Assessment Level: High Risk Assessment and Plan Assessment: Severe abdominal pain and lower extremity especially the right lower extremity with swelling. Rule out acute bleed or acute abnormality. coagulopathy secondary to Coumadin Altered mental status, most likely metabolic toxic encephalopathy History of pulmonary embolism on Coumadin Chronic kidney disease stage III Hypothyroidism History of fibromyalgia History of osteoarthritis History of CVA/TIA Plan: This is a pleasant 66 years old female who presents with AMS, abdomen and leg pain and cagulopathy with anemia Continue with IV hydration Neurology consult already ordered by ED team Give one-time dose of vitamin K 5 mg given her acute drop in hemoglobin. Rec heck hemoglobin status. Continue to hold Coumadin and monitor INR. Coumadin pharmacy to dose Recent for CT of the abdomen and pelvis without contrast with surgery consult Also we will check right hip x-ray and ask for orthopedic consult for her R extremity. Hematology consults for coagulopathy Holds and limits use of narcotics, sedatives, If possible Labs and medication were reviewed.. Continue same treatment. Continue with symptomatic treatment. Resume home medication. Monitor lytes and vitals. DVT and GI prophylaxis. Further recommendations as per clinical course of the patient DVT prophylaxis: alreadyrthopedic INR GI Prophylaxis: Ppi PT/OT: deferred prognosis is guarded Discussed with the bedside nurse
[2022-03-11 11:44] LABS: MCH 31.1 pg (25.0-35.0); MCHC 33.8 g/dL (31.0-37.0); Mean Platelet Volume 13.8; RBC 2.39 m/uL (3.80-5.40); RDW 14.7 % (11.5-15.5); WBC 6.5 k/uL (3.8-10.6)
--- NOTE | 2022-03-11 11:46 | XR ---
EXAMINATION TYPE: XR Hip Limited RT DATE OF EXAM: 03/11/2022 CLINICAL HISTORY: Pain TECHNIQUE: Single portable view of the right hip was submitted. FINDINGS: There is [id number] degenerative narrowing of the right hip joint space with mild spu r formation seen. There is no evidence for fracture or bony lesion. No dislocation seen. IMPRESSION: Degenerative changes.
[2022-03-11 11:56] LABS: HGB 7.4 gm/dL (11.4-16.0); Platelet Count 88 k/uL (150-450)
--- NOTE | 2022-03-11 12:57 | CT ---
EXAMINATION TYPE: CT abdomen pelvis wo con DATE OF EXAM: 03/11/2022 COMPARISON: None HISTORY: 66-year-old female abdominal pain and low hemoglobin CT DLP: 1339 mGycm. Automated exposure control for dose reduction was used. TECHNIQUE: Contiguous axial scanning of the abdomen and pelvis without IV contrast. Coronal and sagit hector reconstructions performed. FINDINGS: Patient scanned with arms crossed over the lower chest. Large patient body habitus. Heart upper limits of normal in size without pericardial effusion. There may be a PFO closure device. Clinically correlate. Strandy atelectasis or scarring in the lower lungs. No pleural effusion. Small hiatal hernia. Noncontrast appearance of the liver, adrenal glands, spleen, and atrophic pancreas show no gross abno rmal body. 1.7 cm cortical hypodensity posterior midpole right kidney likely a benign cyst. Left kidney shows no gross abnormality. Cholecystectomy clips. Dilated bile duct up to 1.5 cm likely due to the postcholecystectomy status. C orrelation can be made with alkaline phosphatase and bilirubin levels. Bilateral scattered calcifications infrarenal abdominal aorta. No dilated small bowel, free fluid, or free air. No mesenteric or retroperitoneal lymphadenopathy. Surgical material right lower quadrant likely related to prior appendectomy. Moderate stool within the transverse colon. There is a small 1.4 cm nodular density along the medial margin of the distal descending colon, axial image 110. This shows some mild strandy soft tissue density with central fat attenuation. Mild diver ticular change along the left side of the colon. No pericolonic inflammatory change. Redundant sigmo id colon reaching up into the upper midline abdomen. Vasques catheter is in place. Bladder is collapsed but with some circumferential wall thickening. Some intraluminal bladder air likely relating to the instrumentation. Uterus surgically absent. Pelvic phl eboliths. Left ovary is visualized. Right ovary not clearly delineated from adjacent bowel. There is presacral edema. Fat stranding along the anterior peritoneum, anterior pelvis, right inguinal region, lateral and anterior right hip and extending throughout the visualized upper thigh. There is marked asymmetric enlargement of the left adductor compartment, preferred to axial image 178 and 188. Lesser degree of asymmetric enlargement of the right gluteal musculature and anterior thigh musculature. The right thigh overall is significantly larger in thickness. Bones: Moderate degenerative disc disease L5-S1. There is a 1.5 cm synovial cyst which projects poste riorly from the L5-S1 facet joints. IMPRESSION: 1. GIVEN THE PATIENT'S LOW HEMOGLOBIN AND EXTENSIVE SOFT TISSUE SWELLING ALONG THE ANTERIOR LOWER PE LVIS, ANTERIOR PERINEUM, RIGHT GROIN, AND VISUALIZED RIGHT THIGH, CORRELATE FOR DIFFUSE BRUISING. THE RIGHT THIGH IS ALSO MARKEDLY LARGER THAN THE LEFT ESPECIALLY THE ADDUCTOR MUSCLE COMPARTMENT. CORREL ATE FOR DIFFUSE INTRAMUSCULAR HEMORRHAGE. PATIENT SHOULD BE MONITORED TO EXCLUDE THE DEVELOPMENT OF C OMPARTMENT SYNDROME. 2. A 1.4 cm nodule along the medial aspect of the lower descending colon shows central fat attenuati on. Finding is nonspecific but may be seen in the setting of epiploic appendagitis. Clinically correl ate. 3. Dilated bile duct up to 1.5 cm likely due to postcholecystectomy status. Correlate with alkaline phosphatase and bili levels. 4. Vasques catheter in place. Circumferential bladder wall thickening probably chronic wall hypertroph y. Correlate to exclude cystitis.
--- NOTE | 2022-03-11 13:41 | P.CNOR ---
History of Present Illness - HPI Consult date: 03/11/22 Consult reason: other (Leg pain) History of present illness: 66 yo female presented with c/o b/l LE pain progressive over the past few days. Pt is on coumadin and was found to have supratherepudic INR. She was seen by PCP and tested. They attempted to reconsile this but she got worse and her INR was upwards of 5. She was sent immediately to ED where she was evaluated. She c/o of b/l LE pain and swelling as well as difficulty with ambulate secondary to this. She states a pressure in her thigh and states her LLE is worse than her RLE currently. She denies any numbness/tingling at this time. States no f/c/sob/cp. She does c/o abdominal pain at this time as well which started with her leg pain. She denies any bowel or bladder issues. Review of Systems 14 points review of systems completed and as stated in HPI, all other systems reviewed are negative. Past Medical History Past Medical History: Chest Pain / Angina, CVA/TIA, Fibromyalgia, Musculoskeletal Disorder, Neurologic Disorder, Osteoarthritis (OA), Pulmonary Embolus (PE), Sleep Apnea/CPAP/BIPAP, Thyroid Disorder Additional Past Medical History / Comment(s): MULTIPLE SCLEROSIS, HX OF CVA 2006 WITH R SIDED WEAKNESS AND DYSPHASIA-MUCH IMPROVED, MIGRAINES, SLEEP APNEA(HAS C- PAP MACHINE BUT DOES NOT USE) ABD HERNIA,CHRONIC PAIN ESPECIALLY ON R SIDE OF BODY AND LOW BACK . PAINFUL FOR HER TO LIE FLAT. HX OF NOSEBLEED JUL 2014 AND RECEIVED PLASMA TRANSFUSION. takes pills with applesauce. 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 MDRO Source:: URINE Past Surgical History: Appendectomy, Cholecystectomy, Hysterectomy Additional Past Surgical History / Comment(s): Incisional hernia repair, laparo scopic lysis of adhesions in 1987, ganglion cyst removal of the left wrist, patent foramen ovale patch in 2006, RF ablation for back pain. Past Anesthesia/Blood Transfusion Reactions: No Reported Reaction Past Psychological History: Depression Additional Psychological History / Comment(s): CELEXA. PT HAS DIFFICULTY W/SPEECH BUT IS MUCH IMPROVED. HAS TO LOOK AT DIETARY MENU TO ORDER CAN'T DO IT BY PHONE. Pt resides with her spouse. She uses a cane to ambulate. She also has a walker. Spouse drives her to appointments. Spouse assists her with some ADLs when needed. Smoking Status: Never smoker Past Alcohol Use History: None Reported Past Drug Use History: None Reported Additional Drug Use History / Comment(s): Lives at home with her requires some assistance with ADLs at times - Past Family History Mother Family Medical History: Hypertension Additional Family Medical History / Comment(s): osteoporosis Father Family Medical History: Dementia, Diabetes Mellitus Medications and Allergies Home Medications Medication Instructions Recorded Confirmed Type Baclofen [Lioresal] 10 mg PO DAILY 11/08/13 03/10/22 History Furosemide [Lasix] 40 mg PO BID 11/08/13 03/10/22 History Montelukast [Singulair] 10 mg PO DAILY 11/08/13 03/10/22 History Pantoprazole Sodium [Protonix] 40 mg PO DAILY 11/08/13 03/10/22 History Potassium Chloride 20 meq PO BID 11/08/13 03/10/22 History Methylphenidate HCl [Ritalin] 20 mg PO BID 11/18/15 03/10/22 History Warfarin [Coumadin] 7.5 mg PO DAILY@1700 12/13/19 03/10/22 History fentaNYL 50MCG/HR PATCH [Duragesic 1 patch TRANSDERM Q72H 05/01/20 03/10/22 History 50MCG/HR] Levothyroxine Sodium [Synthroid] 75 mcg PO DAILY 03/10/22 03/10/22 History Pregabalin [Lyrica] 150 mg PO TID 03/10/22 03/10/22 History oxyCODONE HCL/ACETAMINOPHEN 1 tab PO BID PRN 03/10/22 03/10/22 History [Percocet 5-325 mg] Allergies Allergy/AdvReac Type Severity Reaction Status Date / Time adhesive AdvReac SKIN Verified 03/10/22 17:53 PEELING Physical Examination Osteopathic Statement: *. No significant issues noted on an osteopathic structural exam other than those noted in the History and Physical/Consult. Patient is alert and oriented 3 appears well-nourished well-hydrated is in no acute distress. They do not appear septic. There is TTP about the b/l thighs as well as b/l LE. She has swollen taut co mpartments of the b/l thighs R>L as well as lower legs but ALL COMPARTMENTS COMPRESSIVE AT THIS TIME. No signs of compartment syndrome. No bruising at this time or extensive changes regarding this or traumatic evidence. Small anterior bruise of her right lower leg but not expanding. No palpable hematoma or flucctuence noted. Lower extremities with 3 out of 5 strength in all major muscle groups secondary to pain at this time. Upper extremities show 4/5 strength in all major muscle groups. secondary to deconditioning There is FROM that is painful of the b/l UE and LE in all major joints. They are intact to light touch sensation inC5-T1 and L2 to S1 nerve distribution. DTR 2/4 all upper and lower extremities Patient has palpable dorsalis pedis was posterior tibial pulses. Capillary refill brisk <2 sec all toes Palpable Rad Ulnar pulses b/l Compartments are soft and compressible. Patient shows a negative Homans Cranial nerves II through XII are grossly intact. Results CT reviewed. There is swelling about the abdomen, thighs, lower legs but no evidence of fluid collection or drainable fluid. No hematoma. Subq swelling and edema present. No fractures. Spondylotic changes in lower lumbar spine. - Labs Labs: Abnormal Lab Results - Last 24 Hours (Table) 03/10/22 03/10/22 03/10/22 Range/Units 17:20 17:20 17:20 RBC (4.10-5.20) X 10*6/uL Hgb (12.0-15.0) g/dL Hct (37.2-46.3) % Plt Count 86 L (150-450) k/uL Plt Count Comment Lymphocytes # (0.90-5.00) X 10*3/uL Eosinophils # (0.04-0.35) X 10*3/uL Immature Plt Fraction (1.1-6.1) % PT 55.9 H (9.0-12.0) sec INR 5.6 H* (<1.2) APTT 37.7 H (22.0-30.0) sec Carbon Dioxide (20.0-27.5) mmol/L Anion Gap (10.00-18.00) mmol/L BUN 27 H (7-17) mg/dL Creatinine 1.34 H (0.52-1.04) mg/dL Est GFR (CKD-EPI)AfAm (60.0-200.0) Est GFR (CKD-EPI)NonAf (60.0-200.0) Glucose 159 H (74-99) mg/dL Calcium (8.7-10.3) mg/dL AST 72 H (14-36) U/L Total Protein 5.3 L (6.3-8.2) g/dL Albumin 3.4 L (3.5-5.0) g/dL Globulin (1.6-3.3) g/dL Ur Specific [place] (1.001-1.035) Urine Protein (Negative) Urine Ketones (Negative) Urine Mucus (None) /hpf Ur Amphetamines Screen (NotDetected) 03/10/22 03/11/22 03/11/22 Range/Units 17:38 04:19 04:19 RBC 2.47 L (4.10-5.20) X 10*6/uL Hgb 7.5 L (12.0-15.0) g/dL Hct 22.8 L (37.2-46.3) % Plt Count 76 L (150-450) k/uL Plt Count Comment DECREASED A Lymphocytes # 0.71 L (0.90-5.00) X 10*3/uL Eosinophils # 0.01 L (0.04-0.35) X 10*3/uL Immature Plt Fraction 19.8 H (1.1-6.1) % PT (9.0-12.0) sec INR (<1.2) APTT (22.0-30.0) sec Carbon Dioxide 28.3 H (20.0-27.5) mmol/L Anion Gap 9.70 L (10.00-18.00) mmol/L BUN (7-17) mg/dL Creatinine (0.52-1.04) mg/dL Est GFR (CKD-EPI)AfAm 44.6 L (60.0-200.0) Est GFR (CKD-EPI)NonAf 38.5 L (60.0-200.0) Glucose 164 H (74-99) mg/dL Calcium 8.3 L (8.7-10.3) mg/dL AST 70 H (14-36) U/L Total Protein 4.7 L (6.3-8.2) g/dL Albumin 3.3 L (3.5-5.0) g/dL Globulin 1.4 L (1.6-3.3) g/dL Ur Specific [place] 1.040 H (1.001-1.035) Urine Protein 1+ H (Negative) Urine Ketones 2+ H (Negative) Urine Mucus Few H (None) /hpf Ur Amphetamines Screen Detected H (NotDetected) 03/11/22 03/11/22 Range/Units 09:36 11:29 RBC 2.39 L (4.10-5.20) X 10*6/uL Hgb 7.4 L D (12.0-15.0) g/dL Hct 22.0 L (37.2-46.3) % Plt Count 88 L (150-450) k/uL Plt Count Comment Lymphocytes # (0.90-5.00) X 10*3/uL Eosinophils # (0.04-0.35) X 10*3/uL Immature Plt Fraction (1.1-6.1) % PT 53.5 H (9.0-12.0) sec INR 5.3 H* (<1.2) APTT (22.0-30.0) sec Carbon Dioxide (20.0-27.5) mmol/L Anion Gap (10.00-18.00) mmol/L BUN (7-17) mg/dL Creatinine (0.52-1.04) mg/dL Est GFR (CKD-EPI)AfAm (60.0-200.0) Est GFR (CKD-EPI)NonAf (60.0-200.0) Glucose (74-99) mg/dL Calcium (8.7-10.3) mg/dL AST (14-36) U/L Total Protein (6.3-8.2) g/dL Albumin (3.5-5.0) g/dL Globulin (1.6-3.3) g/dL Ur Specific [place] (1.001-1.035) Urine Protein (Negative) Urine Ketones (Negative) Urine Mucus (None) /hpf Ur Amphetamines Screen (NotDetected) H & H 03/10/22 03/11/22 03/11/22 Range/Units 17:20 04:19 11:29 Hgb 12.9 7.5 L 7.4 L D (11.4-16.0) gm/dL Hct 38.4 22.8 L 22.0 L (34.0-46.0) % Coagulation 03/10/22 03/11/22 Range/Units 17:20 09:36 INR 5.6 H* 5.3 H* (<1.2) Result Diagrams: 03/11/22 11:29 03/11/22 04:19 Assessment and Plan Assessment: 66 yo female with BL UE and LE swelling and pain secondary to supratherepudic INR on coumadin Likey hemarthrosis Rt knee secondary to INR BL UE and LE pain No compartment syndrome currently Plan: -Recommend vascular eval for possible bleed source -Activity as tolerated, limit activity until INR has normalized otherwise will likely perpetuate sx and make worse -Pain control -Hydration -Serial compartment exams, no compartment syndrome currently but due to high INR could develop -Will follow
--- NOTE | 2022-03-11 14:03 | US ---
EXAMINATION TYPE: US extremity nonvasc mass RT DATE OF EXAM: 03/11/2022 COMPARISON: NONE CLINICAL HISTORY: right leg swelling. Patient has extreme pain and severe swelling in her right leg. Ultrasound non-diagnostic due to severity of swelling, unable to penetrate, arteries not seen. IMPRESSION: Nondiagnostic evaluation given the extensive edema.
[2022-03-11] MEDS ORDERED: PHYTONADIONE ORAL 5 MG/5 ML ORAL.SYRG PO STA (15:37)
--- NOTE | 2022-03-11 15:42 | P.GSCN ---
History of Present Illness Consult date: 03/11/22 History of present illness: CHIEF COMPLAINT: Altered mental status HISTORY OF PRESENT ILLNESS: This is a 66-year-old female who presented to hospital with altered mental status. She does have a known history of CVA and expressive aphasia. She is a poor historian. at bedside reports that patient initially presented with confusion. She does have pain in the right lower extremity with swelling. He denies any injury. However, patient had been in the bathroom and had difficulty getting off of the toilet. He thought maybe she may have strained something when she was being lifted off of the toilet. She did report that the stool was slightly dark. She did have an elevated INR of 5.6 on admission. She takes Coumadin for DVT and PE history. Hemoglobin on admission was 12 did drop down to 7.4. Computed tomography scan abdomen and pelvis did show extensive soft tissue swelling along the anterior lower pelvis, anterior perineum, right groin and visualized right thigh. Correlate for diffuse bruising. The right thigh is also markedly larger than the left especially the abductor muscle compartment. Correlate for diffuse intramuscular hemorrhage. Patient should be monitored to exclude development of compartment syndrome. Patient was seen evaluated by orthopedic service. And compartment syndrome was ruled out by orthopedic service. Surgical consult placed for abdominal pain with low hemoglobin. Patient has received vitamin K. Her Coum jarvis is currently on hold. She is scheduled to receive 1 unit of blood. Patient has never had colonoscopy. Patient does have a history of chronic abdominal pain. Patient seen and examined with Dr. davidson PAST MEDICAL HISTORY: CVA, possible multiple sclerosis, fibromyalgia, migraines, sleep apnea PAST SURGICAL HISTORY: Appendectomy, cholecystectomy, hysterectomy, incisional hernia repair, lysis of adhesions patent foramen ovale patch in 2006 MEDICATIONS: See list. ALLERGIES: See list. SOCIAL HISTORY: No illicit drug use. REVIEW OF SYSTEMS: CONSTITUTIONAL: Denies fever or chills. HEENT: Denies blurred vision, vision changes, or eye pain. Denies hemoptysis CARDIOVASCULAR: Denies chest pain or pressure. RESPIRATORY: No shortness of breath. GASTROINTESTINAL: See HPI for pertinent findings HEMATOLOGIC: Denies bleeding disorders. GENITOURINARY: Denies any blood in urine or increased urinary frequency. SKIN: Denies pruitis. Denies rash. PHYSICAL EXAM: VITAL SIGNS: Reviewed GENERAL: Well-developed in no acute distress. ABDOMEN: Soft. Obese. Nondistended. Diffuse tenderness. There is a small bruise lower mid abdomen NEUROLOGIC: Awake and alert. Excessive aphasia Extremities: Her right thigh and leg is significantly swollen. It is tender with palpation. No ecchymosis noted. There may be beginning of bruising or shadowing noted along the right lateral thigh/buttocks area. Her upper extremities there is evidence of bruising along the elbows LABORATORY DATA: WBC 6.5 Hgb 7.4 platelets 88 INR 5.6 down to 5.3 Sodium 145 potassium 3.9 creatinine 1.4 IMAGING: Computed tomography scan abdomen and pelvis did show extensive soft tissue swelling along the anterior lower pelvis, anterior perineum, right groin and visualized right thigh. Correlate for diffuse bruising. The right thigh is also markedly larger than the left especially the abductor muscle compartment. Correlate for diffuse intramuscular hemorrhage. Patient should be monitored to exclude development of compartment syndrome. 1.4 cm nodule along the medial aspect of the lower descending colon show central fat attenuation. Findings suspect that may be setting of epiploic appendagitis. Dilated bile duct up to 1.5 cm likely due to post cholecystectomy status. Vasques catheter in place. ASSESSMENT: 1. Right thigh and leg swelling with pain 2. Abdominal pain 3. Coagulopathy PLAN: -Continue to monitor -Hold Coumadin -Agree with vitamin K -Continue to monitor hemoglobin -Continue supportive care -No surgical intervention planned Thank you for this consultation Physician Snout Puller note has been reviewed by physician. Signing provider agrees with the documented findings, assessment, and plan of care. Past Medical History Past Medical History: Chest Pain / Angina, CVA/TIA, Fibromyalgia, Musculoskeletal Disorder, Neurologic Disorder, Osteoarthritis (OA), Pulmonary Embolus (PE), Sleep Apnea/CPAP/BIPAP, Thyroid Disorder Additional Past Medical History / Comment(s): MULTIPLE SCLEROSIS, HX OF CVA 2006 WITH R SIDED WEAKNESS AND DYSPHASIA-MUCH IMPROVED, MIGRAINES, SLEEP APNEA(HAS C- PAP MACHINE BUT DOES NOT USE) ABD HERNIA,CHRONIC PAIN ESPECIALLY ON R SIDE OF BODY AND LOW BACK . PAINFUL FOR HER TO LIE FLAT. HX OF NOSEBLEED JUL 2014 AND RECEIVED PLASMA TRANSFUSION. takes pills with applesauce. 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 MDRO Source:: URINE Past Surgical History: Appendectomy, Cholecystectomy, Hysterectomy Additional Past Surgical History / Comment(s): Incisional hernia repair, laparoscopic lysis of adhesions in 1987, ganglion cyst removal of the left wrist, patent foramen ovale patch in 2006, RF ablation for back pain. Past Anesthesia/Blood Transfusion Reactions: No Reported Reaction Past Psychological History: Depression Additional Psychological History / Comment(s): CELEXA. PT HAS DIFFICULTY W/SPEECH BUT IS MUCH IMPROVED. HAS TO LOOK AT DIETARY MENU TO ORDER CAN'T DO IT BY PHONE. Pt resides with her spouse. She uses a cane to ambulate. She also has a walker. Spouse drives her to appointments. Spouse assists her with some ADLs when needed. Smoking Status: Never smoker Past Alcohol Use History: None Reported Past Drug Use History: None Reported Additional Drug Use History / Comment(s): Lives at home with her requires some assistance with ADLs at times - Past Family History Mother Family Medical History: Hypertension Additional Family Medical History / Comment(s): osteoporosis Father Family Medical History: Dementia, Diabetes Mellitus Medications and Allergies Home Medications Medication Instructions Recorded Confirmed Type Baclofen [Lioresal] 10 mg PO DAILY 11/08/13 03/10/22 History Furosemide [Lasix] 40 mg PO BID 11/08/13 03/10/22 History Montelukast [Singulair] 10 mg PO DAILY 11/08/13 03/10/22 History Pantoprazole Sodium [Protonix] 40 mg PO DAILY 11/08/13 03/10/22 History Potassium Chloride 20 meq PO BID 11/08/13 03/10/22 History Methylphenidate HCl [Ritalin] 20 mg PO BID 11/18/15 03/10/22 History Warfarin [Coumadin] 7.5 mg PO DAILY@1700 12/13/19 03/10/22 History fentaNYL 50MCG/HR PATCH [Duragesic 1 patch TRANSDERM Q72H 05/01/20 03/10/22 History 50MCG/HR] Levothyroxine Sodium [Synthroid] 75 mcg PO DAILY 03/10/22 03/10/22 History Pregabalin [Lyrica] 150 mg PO TID 03/10/22 03/10/22 History oxyCODONE HCL/ACETAMINOPHEN 1 tab PO BID PRN 03/10/22 03/10/22 History [Percocet 5-325 mg] Allergies Allergy/AdvReac Type Severity Reaction Status Date / Time adhesive AdvReac SKIN Verified 03/10/22 17:53 PEELING Surgical - Exam Vital Signs Temp Pulse Resp BP Pulse Ox 98.1 F 80 20 120/75 94 L 03/10/22 17:05 03/10/22 17:05 03/10/22 17:05 03/10/22 17:05 03/10/22 17:05 Results - Labs 03/11/22 11:29 03/11/22 04:19 Abnormal Lab Results - Last 24 Hours (Table) 03/10/22 03/10/22 03/10/22 Range/Units 17:20 17:20 17:20 RBC (4.10-5.20) X 10*6/uL Hgb (12.0-15.0) g/dL Hct (37.2-46.3) % Plt Count 86 L (150-450) k/uL Plt Count Comment Lymphocytes # (0.90-5.00) X 10*3/uL Eosinophils # (0.04-0.35) X 10*3/uL Immature Plt Fraction (1.1-6.1) % PT 55.9 H (9.0-12.0) sec INR 5.6 H* (<1.2) APTT 37.7 H (22.0-30.0) sec Carbon Dioxide (20.0-27.5) mmol/L Anion Gap (10.00-18.00) mmol/L BUN 27 H (7-17) mg/dL Creatinine 1.34 H (0.52-1.04) mg/dL Est GFR (CKD-EPI)AfAm (60.0-200.0) Est GFR (CKD-EPI)NonAf (60.0-200.0) Glucose 159 H (74-99) mg/dL Calcium (8.7-10.3) mg/dL AST 72 H (14-36) U/L Total Protein 5.3 L (6.3-8.2) g/dL Albumin 3.4 L (3.5-5.0) g/dL Globulin (1.6-3.3) g/dL Ur Specific [place] (1.001-1.035) Urine Protein (Negative) Urine Ketones (Negative) Urine Mucus (None) /hpf Ur Amphetamines Screen (NotDetected) 03/10/22 03/11/22 03/11/22 Range/Units 17:38 04:19 04:19 RBC 2.47 L (4.10-5.20) X 10*6/uL Hgb 7.5 L (12.0-15.0) g/dL Hct 22.8 L (37.2-46.3) % Plt Count 76 L (150-450) k/uL Plt Count Comment DECREASED A Lymphocytes # 0.71 L (0.90-5.00) X 10*3/uL Eosinophils # 0.01 L (0.04-0.35) X 10*3/uL Immature Plt Fraction 19.8 H (1.1-6.1) % PT (9.0-12.0) sec INR (<1.2) APTT (22.0-30.0) sec Carbon Dioxide 28.3 H (20.0-27.5) mmol/L Anion Gap 9.70 L (10.00-18.00) mmol/L BUN (7-17) mg/dL Creatinine (0.52-1.04) mg/dL Est GFR (CKD-EPI)AfAm 44.6 L (60.0-200.0) Est GFR (CKD-EPI)NonAf 38.5 L (60.0-200.0) Glucose 164 H (74-99) mg/dL Calcium 8.3 L (8.7-10.3) mg/dL AST 70 H (14-36) U/L Total Protein 4.7 L (6.3-8.2) g/dL Albumin 3.3 L (3.5-5.0) g/dL Globulin 1.4 L (1.6-3.3) g/dL Ur Specific [place] 1.040 H (1.001-1.035) Urine Protein 1+ H (Negative) Urine Ketones 2+ H (Negative) Urine Mucus Few H (None) /hpf Ur Amphetamines Screen Detected H (NotDetected) 03/11/22 03/11/22 Range/Units 09:36 11:29 RBC 2.39 L (4.10-5.20) X 10*6/uL Hgb 7.4 L D (12.0-15.0) g/dL Hct 22.0 L (37.2-46.3) % Plt Count 88 L (150-450) k/uL Plt Count Comment Lymphocytes # (0.90-5.00) X 10*3/uL Eosinophils # (0.04-0.35) X 10*3/uL Immature Plt Fraction (1.1-6.1) % PT 53.5 H (9.0-12.0) sec INR 5.3 H* (<1.2) APTT (22.0-30.0) sec Carbon Dioxide (20.0-27.5) mmol/L Anion Gap (10.00-18.00) mmol/L BUN (7-17) mg/dL Creatinine (0.52-1.04) mg/dL Est GFR (CKD-EPI)AfAm (60.0-200.0) Est GFR (CKD-EPI)NonAf (60.0-200.0) Glucose (74-99) mg/dL Calcium (8.7-10.3) mg/dL AST (14-36) U/L Total Protein (6.3-8.2) g/dL Albumin (3.5-5.0) g/dL Globulin (1.6-3.3) g/dL Ur Specific [place] (1.001-1.035) Urine Protein (Negative) Urine Ketones (Negative) Urine Mucus (None) /hpf Ur Amphetamines Screen (NotDetected) Diabetes panel 03/10/22 03/11/22 Range/Units 17:20 04:19 Sodium 139 145 (137-145) mmol/L Potassium 3.8 3.9 (3.5-5.1) mmol/L Chloride 103 107 (98-107) mmol/L Carbon Dioxide 25 28.3 H (22-30) mmol/L BUN 27 H 22.9 (7-17) mg/dL Creatinine 1.34 H 1.4 (0.52-1.04) mg/dL Glucose 159 H 164 H (74-99) mg/dL Calcium 8.5 8.3 L (8.4-10.2) mg/dL AST 72 H 70 H (14-36) U/L ALT 29 29 (4-34) U/L Alkaline Phosphatase 76 63 (38-126) U/L Total Protein 5.3 L 4.7 L (6.3-8.2) g/dL Albumin 3.4 L 3.3 L (3.5-5.0) g/dL Calcium panel 03/10/22 03/11/22 Range/Units 17:20 04:19 Calcium 8.5 8.3 L (8.4-10.2) mg/dL Albumin 3.4 L 3.3 L (3.5-5.0) g/dL Pituitary panel 03/10/22 03/11/22 Range/Units 17:20 04:19 Sodium 139 145 (137-145) mmol/L Potassium 3.8 3.9 (3.5-5.1) mmol/L Chloride 103 107 (98-107) mmol/L Carbon Dioxide 25 28.3 H (22-30) mmol/L BUN 27 H 22.9 (7-17) mg/dL Creatinine 1.34 H 1.4 (0.52-1.04) mg/dL Glucose 159 H 164 H (74-99) mg/dL Calcium 8.5 8.3 L (8.4-10.2) mg/dL Adrenal panel 03/10/22 03/11/22 Range/Units 17:20 04:19 Sodium 139 145 (137-145) mmol/L Potassium 3.8 3.9 (3.5-5.1) mmol/L Chloride 103 107 (98-107) mmol/L Carbon Dioxide 25 28.3 H (22-30) mmol/L BUN 27 H 22.9 (7-17) mg/dL Creatinine 1.34 H 1.4 (0.52-1.04) mg/dL Glucose 159 H 164 H (74-99) mg/dL Calcium 8.5 8.3 L (8.4-10.2) mg/dL Total Bilirubin 1.2 0.80 (0.2-1.3) mg/dL AST 72 H 70 H (14-36) U/L ALT 29 29 (4-34) U/L Alkaline Phosphatase 76 63 (38-126) U/L Total Protein 5.3 L 4.7 L (6.3-8.2) g/dL Albumin 3.4 L 3.3 L (3.5-5.0) g/dL
[2022-03-11] MEDS ORDERED: WARFARIN 7.5 MG PO SCH (17:00)
[2022-03-11 17:04] LABS: HCT 22.3 % (34.0-46.0); HGB 7.5 gm/dL (11.4-16.0); MCH 30.6 pg (25.0-35.0); MCHC 33.5 g/dL (31.0-37.0); MCV 91.1 fL (80.0-100.0); Mean Platelet Volume 13.1; RBC 2.44 m/uL (3.80-5.40); RDW 14.3 % (11.5-15.5); WBC 5.3 k/uL (3.8-10.6)
[2022-03-11 17:05] LABS: Platelet Count 76 k/uL (150-450)
[2022-03-11] MEDS: SODIUM CHLORIDE 0.9% 1,000 ML IV SCH ×2 (17:16→17:31)
[2022-03-11] MEDS ORDERED: ACETAMINOPHEN TAB 325 MG TAB PO PRN (17:25)
--- NOTE | 2022-03-11 17:57 | P.PN ---
Progress Note - Text Progress Note Date: 03/11/22 Multiple discussions had with nursing staff regarding patient. Chart is reviewed. Imaging is reviewed. Patient hemoglobin through the day has remained stable. Recommended and placed order for CT angiogram of the lower extremity around 3:00 as stat, it has not been done at this time. Discussed with nursing just recently she states that she called to radiology and this will be performed shortly. Orders given for further reversal of supratherapeutic INR previously. We will continue to monitor. Discussed importance of compression and continued elevation. Continue compartment monitoring per orthopedics.
[2022-03-11] MEDS: PANTOPRAZOLE 40 MG/10 ML VIAL IVP SCH (20:11)
[2022-03-11 20:16] LABS: INR 1.4 (<1.2); Prothrombin Time 14.1 sec (9.0-12.0)
--- NOTE | 2022-03-11 20:26 | P.CONS ---
History of Present Illness - Reason for Consult Consult date: 03/11/22 Coagulopathy - History of Present Illness Ms Cooper is a pleasant white female, initially seen in consult one time in hospital and once in office in 04/2018. She has multiple medical problems with a complicated past medical history, including multiple sclerosis, left MCA stroke, right-sided weakness, and expressive dysphagia. She was admitted with lower extremity weakness due to MLS R. Her platelet counts were noted to be in the 80-90,000 range due to which consult was placed. Review of the patient's labs dating back to 2013 showed chronically low counts usually in the 100 230,000 range with into the 70,000 range associated with acute illnesses but not lower. CT of the abdomen and pelvis in 11/14 had revea led evidence of possible splenomegaly. The patient was on chronic anti- coagulation for DVT and PE and also on aspirin. As her platelets, though ago, had been well within a safe range consistently f or anti-coagulation (greater than [id number]) it was recommended that she could continue her regimen. She had additional labs done which were negative. She also had an ultrasound of the abdomen, which showed some fatty infiltration of the liver. The patient was subsequently readmitted on 04/26/18, with atypical chest pain, possible recurrent emesis exacerbation and fall. She had developed marked p alpable bruising on the right upper extremity. these were noted to be hematomas, with no complication with nearby veins. Labs done subsequently showed INR 3 therapeutic at 2.2. From 04/29/18, platelet counts are up to 90,000 and hemoglobin was 10.7. she was seen for her first office visit on 05/02/18. At that time Dr. Kumar notes stated: the patient is being seen for low platelet counts. As noted, this has been mild and chronic and has persistently been in a safe range. She had extensive workup in the hospital which was negative. - This time the most likely etiology is decreased production from liver disease from fatty infiltration. There may also be an element of splenic sequestration. As noted, counts are persistently a safe range and no acute intervention is required. As long as plt counts are above 50,000, the patient can continue anticoagulation/antiplatelet therapy. Continue to monitor with her PCP. She can be seen when necessary, if any major changes occur in the future. - regarding her current bruising, that likely occur due to a combination of trauma, ongoing Coumadin and antiplatelet therapy, as well as high-dose steroid use. Lower extremity ecchymosis has faded. The upper extremity examination is consistent with gradual hematoma breakdown and dissemination under the skin. She was reassured that this would eventually be reabsorbed. She was educated about signs of recurrent bleeding, and was advised to seek attention immediately if this occurred. - Continue follow-up with her PCP and her multiple other consultants for her other medical problems She has not been seen since, and is now admitted to [facility] and we have been consulted for coagulopathy. She was brought to hospital for worsening confusion and bruising INR >5, received 5mg Vitamin K, platelets in 80K, hemo 7.1, PRBC was given Review of Systems ROS unobtainable: due to mental status All systems: negative Past Medical History Past Medical History: Chest Pain / Angina, CVA/TIA, Fibromyalgia, Musculoskeletal Disorder, Neurologic Disorder, Osteoarthritis (OA), Pulmonary Embolus (PE), Sleep Apnea/CPAP/BIPAP, Thyroid Disorder Additional Past Medical History / Comment(s): MULTIPLE SCLEROSIS, HX OF CVA 2006 WITH R SIDED WEAKNESS AND DYSPHASIA-MUCH IMPROVED, MIGRAINES, SLEEP APNEA(HAS C- PAP MACHINE BUT DOES NOT USE) ABD HERNIA,CHRONIC PAIN ESPECIALLY ON R SIDE OF BODY AND LOW BACK . PAINFUL FOR HER TO LIE FLAT. HX OF NOSEBLEED JUL 2014 AND RECEIVED PLASMA TRANSFUSION. takes pills with applesauce. 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 MDRO Source:: URINE Past Surgical History: Appendectomy, Cholecystectomy, Hysterectomy Additional Past Surgical History / Comment(s): Incisional hernia repair, laparoscopic lysis of adhesions in 1987, ganglion cyst removal of the left wrist, patent foramen ovale patch in 2006, RF ablation for back pain. Past Anesthesia/Blood Transfusion Reactions: No Reported Reaction Past Psychological History: Depression Additional Psychological History / Comment(s): CELEXA. PT HAS DIFFICULTY W/SPEECH BUT IS MUCH IMPROVED. HAS TO LOOK AT DIETARY MENU TO ORDER CAN'T DO IT BY PHONE. Pt resides with her spouse. She uses a cane to ambulate. She also has a walker. Spouse drives her to appointments. Spouse assists her with some ADLs when needed. Smoking Status: Never smoker Past Alcohol Use History: None Reported Past Drug Use History: None Reported Additional Drug Use History / Comment(s): Lives at home with her [facility] some assistance with ADLs at times - Past Family History Mother Family Medical History: Hypertension Additional Family Medical History / Comment(s): osteoporosis Father Family Medical History: Dementia, Diabetes Mellitus Medications and Allergies Home Medications Medication Instructions Recorded Confirmed Type Baclofen [Lioresal] 10 mg PO DAILY 11/08/13 03/10/22 History Furosemide [Lasix] 40 mg PO BID 11/08/13 03/10/22 History Montelukast [Singulair] 10 mg PO DAILY 11/08/13 03/10/22 History Pantoprazole Sodium [Protonix] 40 mg PO DAILY 11/08/13 03/10/22 History Potassium Chloride 20 meq PO BID 11/08/13 03/10/22 History Methylphenidate HCl [Ritalin] 20 mg PO BID 11/18/15 03/10/22 History Warfarin [Coumadin] 7.5 mg PO DAILY@1700 12/13/19 03/10/22 History fentaNYL 50MCG/HR PATCH [Duragesic 1 patch TRANSDERM Q72H 05/01/20 03/10/22 History 50MCG/HR] Levothyroxine Sodium [Synthroid] 75 mcg PO DAILY 03/10/22 03/10/22 History Pregabalin [Lyrica] 150 mg PO TID 03/10/22 03/10/22 History oxyCODONE HCL/ACETAMINOPHEN 1 tab PO BID PRN 03/10/22 03/10/22 History [Percocet 5-325 mg] Allergies Allergy/AdvReac Type Severity Reaction Status Date / Time adhesive AdvReac SKIN Verified 03/10/22 17:53 PEELING Physical Exam Vitals: Vital Signs Temp Pulse Pulse Resp BP BP BP 03/11/22 11:08 85 108/68 93/63 03/11/22 07:00 98.5 F 76 17 101/63 03/11/22 02:22 99.5 F 84 18 100/68 03/10/22 21:36 98.0 F 83 16 99/50 03/10/22 20:49 65 16 135/68 03/10/22 20:07 65 16 140/80 03/10/22 18:56 86 16 117/59 03/10/22 17:42 82 20 120/75 03/10/22 17:05 98.1 F 80 20 120/75 Pulse Ox 03/11/22 11:08 03/11/22 07:00 93 L 03/11/22 02:22 97 03/10/22 21:36 99 03/10/22 20:49 96 03/10/22 20:07 95 03/10/22 18:56 96 03/10/22 17:42 96 03/10/22 17:05 94 L Intake and Output 03/10/22 03/11/22 03/11/22 22:59 06:59 14:59 Intake Total 400 Output Total 525 550 Balance -525 -550 400 Intake: Oral 400 Output: Urine 525 550 Other: Voiding Method Indwelling Catheter Weight 106 kg Areas of eccymosis - Constitutional General appearance: cooperative, no acute distress - EENT Eyes: EOMI ENT: NA/AT - Neck Neck: normal ROM - Respiratory Respiratory: bilateral: diminished - Cardiovascular Rhythm: regularly irregular - Gastrointestinal General gastrointestinal: soft - Integumentary Integumentary: pale - Musculoskeletal Musculoskeletal: generalized weakness - Psychiatric Baseling poor historian and confusion Results CBC & Chem 7: 03/11/22 16:27 03/11/22 04:19 Labs: Abnormal Lab Results - Last 24 Hours (Table) 03/10/22 03/10/22 03/10/22 Range/Units 17:20 17:20 17:20 RBC (4.10-5.20) X 10*6/uL Hgb (12.0-15.0) g/dL Hct (37.2-46.3) % Plt Count 86 L (150-450) k/uL Plt Count Comment Lymphocytes # (0.90-5.00) X 10*3/uL Eosinophils # (0.04-0.35) X 10*3/uL Immature Plt Fraction (1.1-6.1) % PT 55.9 H (9.0-12.0) sec INR 5.6 H* (<1.2) APTT 37.7 H (22.0-30.0) sec Carbon Dioxide (20.0-27.5) mmol/L Anion Gap (10.00-18.00) mmol/L BUN 27 H (7-17) mg/dL Creatinine 1.34 H (0.52-1.04) mg/dL Est GFR (CKD-EPI)AfAm (60.0-200.0) Est GFR (CKD-EPI)NonAf (60.0-200.0) Glucose 159 H (74-99) mg/dL Calcium (8.7-10.3) mg/dL AST 72 H (14-36) U/L Total Protein 5.3 L (6.3-8.2) g/dL Albumin 3.4 L (3.5-5.0) g/dL Globulin (1.6-3.3) g/dL Ur Specific [place] (1.001-1.035) Urine Protein (Negative) Urine Ketones (Negative) Urine Mucus (None) /hpf Ur Amphetamines Screen (NotDetected) 03/10/22 03/11/22 03/11/22 Range/Units 17:38 04:19 04:19 RBC 2.47 L (4.10-5.20) X 10*6/uL Hgb 7.5 L (12.0-15.0) g/dL Hct 22.8 L (37.2-46.3) % Plt Count 76 L (150-450) k/uL Plt Count Comment DECREASED A Lymphocytes # 0.71 L (0.90-5.00) X 10*3/uL Eosinophils # 0.01 L (0.04-0.35) X 10*3/uL Immature Plt Fraction 19.8 H (1.1-6.1) % PT (9.0-12.0) sec INR (<1.2) APTT (22.0-30.0) sec Carbon Dioxide 28.3 H (20.0-27.5) mmol/L Anion Gap 9.70 L (10.00-18.00) mmol/L BUN (7-17) mg/dL Creatinine (0.52-1.04) mg/dL Est GFR (CKD-EPI)AfAm 44.6 L (60.0-200.0) Est GFR (CKD-EPI)NonAf 38.5 L (60.0-200.0) Glucose 164 H (74-99) mg/dL Calcium 8.3 L (8.7-10.3) mg/dL AST 70 H (14-36) U/L Total Protein 4.7 L (6.3-8.2) g/dL Albumin 3.3 L (3.5-5.0) g/dL Globulin 1.4 L (1.6-3.3) g/dL Ur Specific [place] 1.040 H (1.001-1.035) Urine Protein 1+ H (Negative) Urine Ketones 2+ H (Negative) Urine Mucus Few H (None) /hpf Ur Amphetamines Screen Detected H (NotDetected) 03/11/22 03/11/22 Range/Units 09:36 11:29 RBC 2.39 L (4.10-5.20) X 10*6/uL Hgb 7.4 L D (12.0-15.0) g/dL Hct 22.0 L (37.2-46.3) % Plt Count 88 L (150-450) k/uL Plt Count Comment Lymphocytes # (0.90-5.00) X 10*3/uL Eosinophils # (0.04-0.35) X 10*3/uL Immature Plt Fraction (1.1-6.1) % PT 53.5 H (9.0-12.0) sec INR 5.3 H* (<1.2) APTT (22.0-30.0) sec Carbon Dioxide (20.0-27.5) mmol/L Anion Gap (10.00-18.00) mmol/L BUN (7-17) mg/dL Creatinine (0.52-1.04) mg/dL Est GFR (CKD-EPI)AfAm (60.0-200.0) Est GFR (CKD-EPI)NonAf (60.0-200.0) Glucose (74-99) mg/dL Calcium (8.7-10.3) mg/dL AST (14-36) U/L Total Protein (6.3-8.2) g/dL Albumin (3.5-5.0) g/dL Globulin (1.6-3.3) g/dL Ur Specific [place] (1.001-1.035) Urine Protein (Negative) Urine Ketones (Negative) Urine Mucus (None) /hpf Ur Amphetamines Screen (NotDetected) Assessment and Plan (1) Bicytopenia Narrative/Plan: Transfuse if evidence of blood loss or if platelets less than 10K or hemoglobin less than 7 Check iron studies Current Visit: Yes Status: Acute Code(s): D75.89 - OTHER SPECIFIED DISEASES OF BLOOD AND BLOOD-FORMING ORGANS SNOMED Code(s): 92520307 (2) Altered mental status Current Visit: Yes Status: Acute Code(s): R41.82 - ALTERED MENTAL STATUS, UNSPECIFIED SNOMED Code(s): 619742124 (3) Coagulopathy Narrative/Plan: Warfarin on hold Vitamin K given Repeat coags in am and check DIC work-up Current Visit: No Status: Acute Code(s): D68.9 - COAGULATION DEFECT, UNSPECIFIED SNOMED Code(s): 93976529 Plan: Dr. Ware: I have completed the full history and physical and developed the above impression and plan, agre with dictation, dictated as a scribe
--- NOTE | 2022-03-11 21:42 | P.CNNES ---
History of Present Illness Consult date: 03/11/22 Requesting physician: Freedom Fox Reason for Consult: Altered mental status History of Present Illness: Patient is a 66-year-old female with history of multiple sclerosis, previous stroke, with expressive aphasia, came to the hospital by ambulance yesterday at 4:54 PM. Patient has expressive aphasia, not able to provide any history. As per EMS flow sheet, has mentioned that the night prior, when she was having problems ambulating to and from the bathroom. He said that she did not seem right at that point. Today she has not been able to get out of chair and has been sleeping all day. When he talks to her, she seems confused. Looking through the patient, it was noticed that she was taking fentanyl patch, and a muscle relaxer and other pain medication. Patient was also recently prescribed hydrocodone and started taking it yesterday. Patient was alert to verbal stimuli but could not answer any questions appropriately. Her pupils were pinpoint. There was a strong smell of urine as she had soiled herself. Patient's blood glucose was 370. Patient was noted to be in atrial fibrillation on the night monitor. The fentanyl patch was removed. Her blood pressure was 131/55% 86 respiration 14. Blood test shows normal CBC, INR 5.6, electrolytes are normal, BUN 27 creatinine 1.34. AST mildly elevated 72, with normal ALT is 29. Troponin negative. UA negative. Urine drug screen positive for amphetamine. CT head showed no acute process. There is diffuse ventricular and sulcal prominence consistent with diffuse age-related cerebral atrophy. On my review, there is evidence of old encephalomalacia involving the left MCA vascular territory. No acute process. Patient does take baclofen, Lasix, Ritalin 20 mg twice a day, Coumadin, fentanyl, levothyroxine, Percocet and Lyrica 150 mg 3 times a day. Abdomen and pelvis CTs revealed extensive soft tissue swelling along the anterior lower pelvis, anterior. Knee and, right groin and visualized right thigh, correlate for diffuse bruising. The right thigh is also markedly larger than the left especially the adductor muscle compartment. Correlate for diffuse intramuscular hemorrhage. Patient should be monitored to exclude the development of compartment syndrome. A 1.4 cm nodule along the medial aspect of the lower descending colon shows central fat attenuation. Finding is nonspecific but may be seen in the setting of epiploic appendicitis. Patient has been seen by [facility] and hematology. Coumadin has been held. Patient has been given vitamin K. Patient had undergone CTA of the lower extremities. Orthopedic surgery also watching for any compartment syndrome. Review of Systems ROS unobtainable: due to mental status Constitutional: Denies chills, Denies fever Eyes: denies blurred vision, denies pain Ears, nose, mouth and throat: Denies headache, Denies sore throat Cardiovascular: Denies chest pain, Denies shortness of breath Respiratory: Denies cough Gastrointestinal: Denies abdominal pain, Denies diarrhea, Denies nausea, Denies vomiting Musculoskeletal: Reports gait dysfunction, Reports muscle weakness, Denies myalgias Integumentary: Denies pruritus, Denies rash Neurological: Reports as per HPI, Denies numbness, Denies weakness Psychiatric: Denies anxiety, Denies depression Endocrine: Reports fatigue, Denies weight change Past Medical History Past Medical History: Chest Pain / Angina, CVA/TIA, Fibromyalgia, Musculoskeletal Disorder, Neurologic Disorder, Osteoarthritis (OA), Pulmonary Embolus (PE), Sleep Apnea/CPAP/BIPAP, Thyroid Disorder Additional Past Medical History / Comment(s): MULTIPLE SCLEROSIS, HX OF CVA 2006 WITH R SIDED WEAKNESS AND DYSPHASIA-MUCH IMPROVED, MIGRAINES, SLEEP APNEA(HAS C- PAP MACHINE BUT DOES NOT USE) ABD HERNIA,CHRONIC PAIN ESPECIALLY ON R SIDE OF BODY AND LOW BACK . PAINFUL FOR HER TO LIE FLAT. HX OF NOSEBLEED JUL 2014 AND RECEIVED PLASMA TRANSFUSION. takes pills with applesauce. History of Any Multi-Drug Resistant Organisms: VRE Date of last positivie culture/infection: 10/24/09 confirmed with infectious disease nurse on 08/18/16. MDRO Source:: URINE Past Surgical History: Appendectomy, Cholecystectomy, Hysterectomy Additional Past Surgical History / Comment(s): Incisional hernia repair, laparoscopic lysis of adhesions in 1987, ganglion cyst removal of the left wrist, patent foramen ovale patch in 2006, RF ablation for back pain. Past Anesthesia/Blood Transfusion Reactions: No Reported Reaction Past Psychological History: Depression Additional Psychological History / Comment(s): CELEXA. PT HAS DIFFICULTY W/SPEECH BUT IS MUCH IMPROVED. HAS TO LOOK AT DIETARY MENU TO ORDER CAN'T DO IT BY PHONE. Pt resides with her spouse. She uses a cane to ambulate. She also elizabeth s a walker. Spouse drives her to appointments. Spouse assists her with some ADLs when needed. Smoking Status: Never smoker Past Alcohol Use History: None Reported Past Drug Use History: None Reported Additional Drug Use History / Comment(s): Lives at home with her requires some assistance with ADLs at times - Past Family History Mother Family Medical History: Hypertension Additional Family Medical History / Comment(s): osteoporosis Father Family Medical History: Dementia, Diabetes Mellitus Medications and Allergies Home Medications Medication Instructions Recorded Confirmed Type Baclofen [Lioresal] 10 mg PO DAILY 11/08/13 03/10/22 History Furosemide [Lasix] 40 mg PO BID 11/08/13 03/10/22 History Montelukast [Singulair] 10 mg PO DAILY 11/08/13 03/10/22 History Pantoprazole Sodium [Protonix] 40 mg PO DAILY 11/08/13 03/10/22 History Potassium Chloride 20 meq PO BID 11/08/13 03/10/22 History Methylphenidate HCl [Ritalin] 20 mg PO BID 11/18/15 03/10/22 History Warfarin [Coumadin] 7.5 mg PO DAILY@1700 12/13/19 03/10/22 History fentaNYL 50MCG/HR PATCH [Duragesic 1 patch TRANSDERM Q72H 05/01/20 03/10/22 History 50MCG/HR] Levothyroxine Sodium [Synthroid] 75 mcg PO DAILY 03/10/22 03/10/22 History Pregabalin [Lyrica] 150 mg PO TID 03/10/22 03/10/22 History oxyCODONE HCL/ACETAMINOPHEN 1 tab PO BID PRN 03/10/22 03/10/22 History [Percocet 5-325 mg] Allergies Allergy/AdvReac Type Severity Reaction Status Date / Time adhesive AdvReac SKIN Verified 03/10/22 17:53 PEELING Physical Examination - Vital Signs Vital Signs: Vital Signs Temp Pulse Pulse Resp BP BP BP 03/11/22 11:08 85 108/68 93/63 03/11/22 07:00 98.5 F 76 17 101/63 03/11/22 02:22 99.5 F 84 18 100/68 03/10/22 21:36 98.0 F 83 16 99/50 03/10/22 20:49 65 16 135/68 03/10/22 20:07 65 16 140/80 03/10/22 18:56 86 16 117/59 03/10/22 17:42 82 20 120/75 03/10/22 17:05 98.1 F 80 20 120/75 Pulse Ox 03/11/22 11:08 03/11/22 07:00 93 L 03/11/22 02:22 97 03/10/22 21:36 99 03/10/22 20:49 96 03/10/22 20:07 95 03/10/22 18:56 96 03/10/22 17:42 96 03/10/22 17:05 94 L Intake and Output 03/10/22 03/11/22 03/11/22 22:59 06:59 14:59 Intake Total 400 Output Total 525 550 Balance -525 -550 400 Intake: Oral 400 Output: Urine 525 550 Other: Voiding Method Indwelling Catheter Weight 106 kg Patient is an elderly female, laying comfortably in the bed. Patient is alert awake, in no distress. Patient has significant expressive aphasia from her previous stroke, not able to tell name of the town, state, month or year. Patient has fluent aphasia, with significant paraphasic errors. Patient at times able to speak. He says "I'm glad you could understand". "Sometimes its difficult for me to do things properly". She could not point to the ceiling or to the window. Could not name any objects presented. Cannot repeat. She said "Jack" for a pen. Attention, concentration intact and fund of knowledge is significantly limited On cranial nerve examination, pupils are equal, round and reacting to light, visual lazar are full on confrontation, with no neglect on double simultaneous stimulation Extraocular muscles are intact with no nystagmus. Face is symmetric, although patient has very subtle flattening of the right nasolabial fold, but is chronic was present on previous evaluation is well. Her tongue protrudes to the midline. Palatal elevation and sensation normal, hearing is slightly decreased and shoulder shrug normal, facial sensation normal. On muscle strength testing, there is right pronation but no drift. Her strength is normal in arms distally and proximally. In the lower limbs, hip flexion 2, knee extension 4 with decreased endurance, ankles are normal. Deep tendon reflexes are (right/left) biceps 3/3, brachioradialis 3/3, knee 2+/3, ankles 1+/2+, plantars downgoing bilaterally. No clonus. Sensory to touch is equal with no neglect on double simultaneous stimulation. Cerebellar function showed no ataxia for [id number] testing. Cannot perform [id number] testing. Tone is increased in the legs and bulk of muscles normal. Gait patient not ambulatory. On general examination, there is no carotid bruit or murmur, S1-S2 audible. Chest is clear on consultation. Abdomen is soft nontender. No organomegaly, bowel sounds present. Peripheral pulses are present. Moderate peripheral edema, worse in the right leg. Results - Laboratory Findings CBC and BMP: 03/11/22 16:27 03/11/22 04:19 Abnormal Lab Findings: Abnormal Labs 03/10/22 03/10/22 03/10/22 17:20 17:20 17:20 RBC Hgb Hct Plt Count 86 L Plt Count Comment Lymphocytes # Eosinophils # Immature Plt Fraction PT 55.9 H INR 5.6 H* APTT 37.7 H Carbon Dioxide Anion Gap BUN 27 H Creatinine 1.34 H Est GFR (CKD-EPI)AfAm Est GFR (CKD-EPI)NonAf Glucose 159 H Calcium AST 72 H Total Protein 5.3 L Albumin 3.4 L Globulin Ur Specific Wickes Urine Protein Urine Ketones Urine Mucus Ur Amphetamines Screen 03/10/22 03/11/22 03/11/22 17:38 04:19 04:19 RBC 2.47 L Hgb 7.5 L Hct 22.8 L Plt Count 76 L Plt Count Comment DECREASED A Lymphocytes # 0.71 L Eosinophils # 0.01 L Immature Plt Fraction 19.8 H PT INR APTT Carbon Dioxide 28.3 H Anion Gap 9.70 L BUN Creatinine Est GFR (CKD-EPI)AfAm 44.6 L Est GFR (CKD-EPI)NonAf 38.5 L Glucose 164 H Calcium 8.3 L AST 70 H Total Protein 4.7 L Albumin 3.3 L Globulin 1.4 L Ur Specific Wickes 1.040 H Urine Protein 1+ H Urine Ketones 2+ H Urine Mucus Few H Ur Amphetamines Screen Detected H 03/11/22 09:36 RBC Hgb Hct Plt Count Plt Count Comment Lymphocytes # Eosinophils # Immature Plt Fraction PT 53.5 H INR 5.3 H* APTT Carbon Dioxide Anion Gap BUN Creatinine Est GFR (CKD-EPI)AfAm Est GFR (CKD-EPI)NonAf Glucose Calcium AST Total Protein Albumin Globulin Ur Specific [place] Urine Protein Urine Ketones Urine Mucus Ur Amphetamines Screen Assessment and Plan Assessment: * Altered mental status, likely due to Polypharmacy, and metabolic encephalopathy. * Metabolic encephalopathy due to multiple factors as mentioned below. * Coagulopathy * Mild renal insufficiency, improved * Anemia, acute due to perhaps blood loss * Thrombocytopenia, acute on chronic * History of left MCA stroke in 2006 with residual expressive aphasia. * Reported history of multiple sclerosis * Hypertension * Urinary incontinence * Obstructive sleep apnea * History of DVT on Coumadin. Plan: * Limit amount of opiates/narcotics. Patient's examination is essentially at baseline as compared to my last examination a year ago. * General surgery and orthopedic surgery following for possible internal bleed and rule out compartment syndrome respectively. * Hematology also on the case for anemia. * No other neurological workup indicated. * Neurology will sign off. Please reconsult neurology if any other concerns. Thank you for the consult.
--- NOTE | 2022-03-11 22:34 | CT ---
EXAMINATION TYPE: CT angio abd aorta w/Runoff DATE OF EXAM: 03/11/2022 COMPARISON: None HISTORY: high INR CT DLP: 3853.8 mGycm Automated exposure control for dose reduction was used. CONTRAST: Performed with IV Contrast, patient injected with 80 mL of Isovue 370. Images obtained from the diaphragm to the floor the pelvis without and with the IV contrast. There ar e Three-D postprocessed images. Exam limited by patient's size. There is arterial flow in the abdominal aorta. There is arterial flow in the celiac artery and superi or mesenteric artery. There is arterial flow in both renal arteries. No evidence of abdominal aortic aneurysm or dissection. There is arterial flow in the common internal and external iliac arteries laureen aterally. There is bilateral arterial flow in the femoral arteries. There is bilateral popliteal rashawn ry flow. There is patency of the tibial artery trifurcation. Very little distal arterial flow is demo nstrated at the left ankle. There is posterior tibial artery flow at the right ankle and extending to the metatarsals. There is diminished bilateral dorsalis pedis artery flow. There is subcutaneous edema around both feet and ankles. There is subcutaneous edema around the right calf. There is subcutaneous edema around the right thigh extending into the mons pubis. There is no mesenteric edema. No ascites or free air. No bowel obstruction. Kidneys of normal size an d contour. No hydronephrosis. There is a 1.5 cm cortical cyst posterior right kidney. No retroperiton eal adenopathy. Liver and spleen are intact. Stomach is intact. There is no pancreatic mass. There ar e clips from cholecystectomy. The bile ducts are not dilated. Lumbar spine is intact. Bony pelvis is intact. There is asymmetric increased density in the medial right upper thigh that could be intramuscular hem atoma in the medial upper thigh muscle. Abnormality measures approximately 8 cm in width. IMPRESSION: No arterial aneurysm or dissection. No significant angiographic abnormality in the abdomen and pelvis . Atherosclerotic vascular calcification Extensive subcutaneous edema of the right leg. There is slightly diminished distal arterial flow from the bilateral anterior and posterior tibial ar garry and peroneal artery at the ankle. This could be hemodynamic stenosis. Exam limited by patient's size. There is posterior tibial artery flow demonstrated in the right and left foot. There is likely intramuscular hematoma of the medial right upper thigh.
[2022-03-12 01:06] LABS: Basophils % (A) 0 %; Eosinophils # (A) 0.1 k/uL (0-0.7); Eosinophils % (A) 1 %; Lymphocytes # (A) 0.6 k/uL (1.0-4.8); Lymphocytes % (A) 12 %; MCH 30.2 pg (25.0-35.0); MCHC 32.7 g/dL (31.0-37.0); MCV 92.2 fL (80.0-100.0); Mean Platelet Volume 13.8; Monocytes # (A) 0.4 k/uL (0-1.0); Monocytes % (A) 8 %; Neutrophils # (A) 3.9 k/uL (1.3-7.7); Neutrophils % (A) 76 %; RBC 1.95 m/uL (3.80-5.40); RDW 14.6 % (11.5-15.5); WBC 5.2 k/uL (3.8-10.6)
[2022-03-12 01:24] LABS: HCT 17.9 % (34.0-46.0)
[2022-03-12 01:25] LABS: HGB 5.9 gm/dL (11.4-16.0); Platelet Count 74 k/uL (150-450)
[2022-03-12 02:03] LABS: % Iron Saturation 9.82 (12.00-45.00)
[2022-03-12] MEDS: LEVOTHYROXINE 75 MCG TAB PO SCH (06:48)
[2022-03-12] MEDS: SODIUM CHLORIDE 0.9% 1,000 ML IV SCH ×2 (07:57→08:44)
[2022-03-12] MEDS ORDERED: MORPHINE SULFATE 2 MG/ML SYRINGE IVP PRN (08:15)
[2022-03-12] MEDS: FUROSEMIDE 40 MG TAB PO SCH ×2 (08:44→17:06)
[2022-03-12] MEDS: MONTELUKAST 10 MG TAB PO SCH (08:44)
[2022-03-12] MEDS: PANTOPRAZOLE 40 MG/10 ML VIAL IVP SCH ×2 (08:44→21:19)
--- NOTE | 2022-03-12 08:59 | P.PN ---
Progress Note - Text Progress Note Date: 03/12/22 Patient remains unchanged. She has significant ecchymosis along her right hip and thigh. Her he will was morning is 5.9. Her INR has been corrected is currently 1.4. Patient will be observed. Her hemoglobin will be corrected with packed red cell transfusion. No surgical intervention is planned.
--- NOTE | 2022-03-12 09:08 | P.PN ---
Subjective Progress Note Date: 03/12/22 Principal diagnosis: Right thigh hematoma Pt s/e. No issues overnight. Pts leg has been wrapped in booker which helped lower leg swelling. Still with pain in thigh on right as well as abdomen. No other issues currently. Some subjective fevers overnight. no SOB/CP. Objective - Vital Signs Vital signs: Vital Signs Temp 98.2 F 03/12/22 04:36 Pulse 73 03/12/22 04:36 Resp 16 03/12/22 04:36 BP 121/71 03/12/22 04:36 Pulse Ox 98 03/12/22 07:57 FiO2 Intake & Output 03/11/22 03/12/22 03/12/22 18:59 06:59 18:59 Intake Total 814 310 118 Output Total 625 900 Balance 189 -590 118 Intake: Oral 600 118 Blood Product 214 310 Ffp 24 Pher Acda Unit 214 [id number] Rc As-1 Unit 310 [id number] Output: Urine 625 900 Other: Voiding Method Indwelling Catheter Indwelling Catheter - Exam Exam repeated no changes. Osteopathic Statement: *. No significant issues noted on an osteopathic structural exam other than those noted in the History and Physical/Consult. Patient is alert and oriented 3 appears well-nourished well-hydrated is in no acute distress. They do not appear septic. There is TTP about the b/l thighs as well as b/l LE. She has swollen taut compartments of the b/l thighs R>L as well as lower legs but ALL COMPARTMENTS COMPRESSIVE AT THIS TIME. No signs of compartment syndrome. No bruising at this time or extensive changes regarding this or traumatic evidence. Small anterior bruise of her right lower leg but not expanding. No palpable hematoma or flucctuence noted. Lower extremities with 3 out of 5 strength in all major muscle groups secondary to pain at this time. Upper extremities show 4/5 strength in all major muscle groups. secondary to deconditioning There is FROM that is painful of the b/l UE and LE in all major joints. They are intact to light touch sensation inC5-T1 and L2 to S1 nerve distribution. DTR 2/4 all upper and lower extremities Patient has palpable dorsalis pedis was posterior tibial pulses. Capillary refill brisk <2 sec all toes Palpable Rad Ulnar pulses b/l Compartments are soft and compressible. Patient shows a negative Homans Cranial nerves II through XII are grossly intact. Ex - Labs CBC & Chem 7: 03/11/22 23:39 03/11/22 04:19 Labs: Abnormal Lab Results - Last 24 Hours (Table) 03/11/22 03/11/22 03/11/22 Range/Units 04:19 04:19 09:36 RBC 2.47 L (4.10-5.20) X 10*6/uL Hgb 7.5 L (12.0-15.0) g/dL Hct 22.8 L (37.2-46.3) % Plt Count 76 L (140-440) X 10*3/uL Plt Count Comment DECREASED A Lymphocytes # 0.71 L (0.90-5.00) X 10*3/uL Eosinophils # 0.01 L (0.04-0.35) X 10*3/uL Immature Plt Fraction 19.8 H (1.1-6.1) % PT 53.5 H (9.0-12.0) sec INR 5.3 H* (<1.2) Fibrinogen (200-500) mg/dL Carbon Dioxide 28.3 H (20.0-27.5) mmol/L Anion Gap 9.70 L (10.00-18.00) mmol/L Est GFR (CKD-EPI)AfAm 44.6 L (60.0-200.0) Est GFR (CKD-EPI)NonAf 38.5 L (60.0-200.0) Glucose 164 H (70-110) mg/dL Calcium 8.3 L (8.7-10.3) mg/dL Iron (50-170) ug/dL TIBC (228-460) ug/dL % Saturation (12.00-45.00) Transferrin (204.0-354.0) mg/dL AST 70 H (13-35) U/L Total Protein 4.7 L (6.2-8.2) g/dL Albumin 3.3 L (3.8-4.9) g/dL Globulin 1.4 L (1.6-3.3) g/dL Crossmatch 03/11/22 03/11/22 03/11/22 Range/Units 11:29 14:44 14:44 RBC 2.39 L (4.10-5.20) X 10*6/uL Hgb 7.4 L D (12.0-15.0) g/dL Hct 22.0 L (37.2-46.3) % Plt Count 88 L (140-440) X 10*3/uL Plt Count Comment Lymphocytes # (0.90-5.00) X 10*3/uL Eosinophils # (0.04-0.35) X 10*3/uL Immature Plt Fraction (1.1-6.1) % PT (9.0-12.0) sec INR (<1.2) Fibrinogen 505 H (200-500) mg/dL Carbon Dioxide (20.0-27.5) mmol/L Anion Gap (10.00-18.00) mmol/L Est GFR (CKD-EPI)AfAm (60.0-200.0) Est GFR (CKD-EPI)NonAf (60.0-200.0) Glucose (70-110) mg/dL Calcium (8.7-10.3) mg/dL Iron (50-170) ug/dL TIBC (228-460) ug/dL % Saturation (12.00-45.00) Transferrin (204.0-354.0) mg/dL AST (13-35) U/L Total Protein (6.2-8.2) g/dL Albumin (3.8-4.9) g/dL Globulin (1.6-3.3) g/dL Crossmatch See Detail 03/11/22 03/11/22 03/11/22 Range/Units 14:44 16:27 19:54 RBC 2.44 L (4.10-5.20) X 10*6/uL Hgb 7.5 L (12.0-15.0) g/dL Hct 22.3 L (37.2-46.3) % Plt Count 76 L (140-440) X 10*3/uL Plt Count Comment Lymphocytes # (0.90-5.00) X 10*3/uL Eosinophils # (0.04-0.35) X 10*3/uL Immature Plt Fraction (1.1-6.1) % PT 14.1 H (9.0-12.0) sec INR 1.4 H (<1.2) Fibrinogen (200-500) mg/dL Carbon Dioxide (20.0-27.5) mmol/L Anion Gap (10.00-18.00) mmol/L Est GFR (CKD-EPI)AfAm (60.0-200.0) Est GFR (CKD-EPI)NonAf (60.0-200.0) Glucose (70-110) mg/dL Calcium (8.7-10.3) mg/dL Iron 20 L (50-170) ug/dL TIBC 202 L (228-460) ug/dL % Saturation 9.82 L (12.00-45.00) Transferrin 144.0 L (204.0-354.0) mg/dL AST (13-35) U/L Total Protein (6.2-8.2) g/dL Albumin (3.8-4.9) g/dL Globulin (1.6-3.3) g/dL Crossmatch 03/11/22 Range/Units 23:39 RBC 1.95 L (4.10-5.20) X 10*6/uL Hgb 5.9 L* D (12.0-15.0) g/dL Hct 17.9 L* (37.2-46.3) % Plt Count 74 L (140-440) X 10*3/uL Plt Count Comment Lymphocytes # 0.6 L (0.90-5.00) X 10*3/uL Eosinophils # (0.04-0.35) X 10*3/uL Immature Plt Fraction (1.1-6.1) % PT (9.0-12.0) sec INR (<1.2) Fibrinogen (200-500) mg/dL Carbon Dioxide (20.0-27.5) mmol/L Anion Gap (10.00-18.00) mmol/L Est GFR (CKD-EPI)AfAm (60.0-200.0) Est GFR (CKD-EPI)NonAf (60.0-200.0) Glucose (70-110) mg/dL Calcium (8.7-10.3) mg/dL Iron (50-170) ug/dL TIBC (228-460) ug/dL % Saturation (12.00-45.00) Transferrin (204.0-354.0) mg/dL AST (13-35) U/L Total Protein (6.2-8.2) g/dL Albumin (3.8-4.9) g/dL Globulin (1.6-3.3) g/dL Crossmatch Assessment and Plan Assessment: 66 yo female with BL UE and LE swelling and pain secondary to supratherepudic INR on coumadin Likey hemarthrosis Rt knee secondary to INR BL UE and LE pain No compartment syndrome currently Plan: -Cont conservative measures. -Activity as tolerated -Pain control -Hydration -Serial compartment exams, No compartment syndrome -Will follow
[2022-03-12 09:17] LABS: Albumin 2.8 g/dL (3.5-5.0); Bilirubin,Unconjugated 2.2 mg/dL (0.0-1.1); Calcium 7.9 mg/dL (8.4-10.2); Magnesium 1.9 mg/dL (1.6-2.3); Potassium 3.5 mmol/L (3.5-5.1); Total Bilirubin 2.2 mg/dL (0.2-1.3); Total Protein 4.6 g/dL (6.3-8.2)
[2022-03-12 09:58] LABS: Basophils % (A) 0 %; Eosinophils # (A) 0.1 k/uL (0-0.7); Eosinophils % (A) 1 %; HCT 20.8 % (34.0-46.0); Lymphocytes # (A) 0.8 k/uL (1.0-4.8); Lymphocytes % (A) 15 %; MCH 29.6 pg (25.0-35.0); MCHC 32.1 g/dL (31.0-37.0); MCV 92.3 fL (80.0-100.0); Mean Platelet Volume 13.9; Monocytes # (A) 0.3 k/uL (0-1.0); Monocytes % (A) 6 %; Neutrophils % (A) 77 %; Platelet Count 72 k/uL (150-450); RBC 2.25 m/uL (3.80-5.40); RDW 14.1 % (11.5-15.5); WBC 5.2 k/uL (3.8-10.6)
[2022-03-12 10:03] LABS: HGB 6.7 gm/dL (11.4-16.0)
[2022-03-12] MEDS ORDERED: HYDROcodone/APAP 5-325MG 1 EACH TAB PO PRN (10:28)
--- NOTE | 2022-03-12 10:29 | P.PN ---
Subjective This is a pleasant 66 years old female with past medical history of hypothyroidism, CVA/TIA, fibromyalgia, osteoarthritis, pulmonary embolism, sleep apnea Medication review were with [facility]: She is on re-tunneling twice daily, Percocet 5 mg twice daily, Lyrica Patient is a known history of multiple sclerosis and CVA. She lives with her at home who takes care of her. At baseline she looks little bit confused, as per bedside nurse recognize her from previous admission today her mentation looks at baseline. She has chronic dysarthria. And she and her were in the process of following up with neurologist at [facility] for further treatment. Also she is an Coumadin for her history of PE. Patient however has poor historian, she could not tell where she is and she was disoriented to time and person as well but she can't tell me her name and she follows simple commands and some questions appropriately. I called the Mr. Shaikh, according to him 2 days ago she was sitting in the chair and her bedroom at usual and he wants to check on her, he noticed that she was sitting on the toilet seat with some stool mass underneath her which is unusual for her and she was complaining of from pain all over but according to the male in the abdomen and lower extremities, he could not get her up initially he tried but she hurts but eventually he could get her into the her on chair. He gave her more pain medication but that did not help her, she was still confused and sleepy to him and she was still hurting a lot so he decided to bring her to the hospital. Patient is complaining of from abdominal pain and tenderness which tends also lower extremity pain and tenderness especially the right lower extremity and the right thigh which looks more swollen than the left and more tense but no evidence of ecchymosis. Vital signs stable. Blood pressure is low normal which looks like her baseline. CBC is unremarkable. Platelet count SoloSite 86. INR is elevated 5.6 Creatinine 1.3 which is baseline of 1.-1.4. Pulse is 159. Liver enzymes not significantly elevated. Urinalysis showing concentrated sample 1+ protein and 2+ tone. Urine drug screen is positive for amphetamine. EKG showing supraventricular rhythm at rate of 80 Abdominal x-ray, no acute abnormality Chest x-ray: Negative exam Right femoral x-ray, no acute process CT of the brain no acute process Patient is on normal saline at 75 mL prior within urology is consulted 03/12/2022 patient today still complaining of from significant pain in her right thigh and abdomen, she refused them to be touched and she is in severe pain, morphine 4 mg every 4 hours is added. Her blood pressure is a stable, the swelling does not look significantly worse compared to yesterday. Her hemoglobin dropped last night to 5.7 and received 1 unit of blood, her he moglobin this morning was 6.7 and she is receiving another blood. Also she is on Lasix 40 mg twice daily and she has good urine output, like 1.5 L yesterday and 700 mL since morning. Patient has Vasques catheter. She remains on normal saline at 75 mL/h however he is going to be held while blood transfusion begins. Also she will receive extra dose of IV Lasix, discussed with the bedside nurse. I discussed the case with vascular surgery. No need for surgical intervention now. Also no need for intervention by orthopedic team as there is no compartment syndrome. Coumadin remains on hold and INR improved to 1 on 1.4. Hematology team on the case Active Medications Generic Name Dose Route Start Last Admin Trade Name Freq PRN Reason Stop Dose Admin Acetaminophen 325 mg 03/11/22 17:25 Acetaminophen Tab 325 Mg Tab PO Q6HR PRN Fever and/ or Pain Ferrous Sulfate 325 mg 03/12/22 08:30 Ferrous Sulfate 325 Mg Tab PO BID-W/MEALS JH Furosemide 40 mg 03/10/22 21:00 03/12/22 08:44 Furosemide 40 Mg Tab PO 40 mg BID@0900,1600 JH Administration Sodium Chloride 1,000 mls @ 75 mls/hr 03/10/22 20:00 03/12/22 08:44 Saline 0.9% IV 75 mls/hr .[id number] JH Administration Levothyroxine Sodium 75 mcg 03/11/22 06:30 03/12/22 06:48 Levothyroxine 75 Mcg Tab PO 75 mcg DAILY@0630 JH Administration Montelukast Sodium 10 mg 03/11/22 09:00 03/12/22 08:44 Montelukast 10 Mg Tab PO 10 mg DAILY JH Administration Morphine Sulfate 4 mg 03/12/22 10:23 Morphine Sulfate 4 Mg/Ml Syringe IVP Q4HR PRN Pain/Discomfort Naloxone HCl 0.2 mg 03/10/22 19:55 Naloxone 0.4 Mg/Ml 1 Ml Vial IV Q2M PRN Opioid Reversal Pantoprazole Sodium 40 mg 03/11/22 21:00 03/12/22 08:44 Pantoprazole 40 Mg/10 Ml Vial IVP 40 mg BID JH Administration Objective - Vital Signs Vital signs: Vital Signs Temp 98.2 F 03/12/22 04:36 Pulse 73 03/12/22 04:36 Resp 16 03/12/22 04:36 BP 121/71 03/12/22 04:36 Pulse Ox 98 03/12/22 07:57 FiO2 Intake & Output 03/11/22 03/12/22 03/12/22 18:59 06:59 18:59 Intake Total 814 310 118 Output Total 625 900 Balance 189 -590 118 Intake: Oral 600 118 Blood Product 214 310 Ffp 24 Pher Acda Unit 214 [id number] Rc As-1 Unit 310 [id number] Output: Urine 625 900 Other: Voiding Method Indwelling Catheter Indwelling Catheter - Exam GENERAL: The patient is alert and oriented x3, not in any acute distress. Well developed, well nourished. HEENT: Pupils are round and equally reacting to light. EOMI. No scleral icterus. No conjunctival pallor. Normocephalic, atraumatic. No pharyngeal erythema. No thyromegaly. CARDIOVASCULAR: S1 and S2 present. No murmurs, rubs, or gallops. PULMONARY: Chest is clear to auscultation, no wheezing or crackles. -ABDOMEN: Soft, abdomen tenderness with guarding, nondistended, normoactive bowel sounds. No palpable organomegaly. MUSCULOSKELETAL: No joint swelling or deformity. -EXTREMITIES: No cyanosis, clubbing, or pedal edema. Right leg is tender and swollen especially thigh. Left leg is markedly swollen and painful NEUROLOGICAL: Gross neurological examination did not reveal any focal deficits. SKIN: No rashes. no petechiae. - Labs CBC & Chem 7: 03/12/22 07:55 03/12/22 07:55 Labs: Abnormal Lab Results - Last 24 Hours (Table) 03/11/22 03/11/22 03/11/22 Range/Units 04:19 09:36 11:29 RBC 2.39 L (3.80-5.40) m/uL Hgb 7.4 L D (11.4-16.0) gm/dL Hct 22.0 L (34.0-46.0) % Plt Count 88 L (150-450) k/uL Lymphocytes # (1.0-4.8) k/uL PT 53.5 H (9.0-12.0) sec INR 5.3 H* (<1.2) Fibrinogen (200-500) mg/dL Carbon Dioxide 28.3 H (20.0-27.5) mmol/L Anion Gap 9.70 L (10.00-18.00) mmol/L BUN (7-17) mg/dL Creatinine (0.52-1.04) mg/dL Est GFR (CKD-EPI)AfAm 44.6 L (60.0-200.0) Est GFR (CKD-EPI)NonAf 38.5 L (60.0-200.0) Glucose 164 H (70-110) mg/dL Calcium 8.3 L (8.7-10.3) mg/dL Iron (50-170) ug/dL TIBC (228-460) ug/dL % Saturation (12.00-45.00) Transferrin (204.0-354.0) mg/dL Total Bilirubin (0.2-1.3) mg/dL Unconjugated Bilirubin (0.0-1.1) mg/dL AST 70 H (13-35) U/L Total Protein 4.7 L (6.2-8.2) g/dL Albumin 3.3 L (3.8-4.9) g/dL Globulin 1.4 L (1.6-3.3) g/dL Crossmatch 03/11/22 03/11/22 03/11/22 Range/Units 14:44 14:44 14:44 RBC (3.80-5.40) m/uL Hgb (11.4-16.0) gm/dL Hct (34.0-46.0) % Plt Count (150-450) k/uL Lymphocytes # (1.0-4.8) k/uL PT (9.0-12.0) sec INR (<1.2) Fibrinogen 505 H (200-500) mg/dL Carbon Dioxide (20.0-27.5) mmol/L Anion Gap (10.00-18.00) mmol/L BUN (7-17) mg/dL Creatinine (0.52-1.04) mg/dL Est GFR (CKD-EPI)AfAm (60.0-200.0) Est GFR (CKD-EPI)NonAf (60.0-200.0) Glucose (70-110) mg/dL Calcium (8.7-10.3) mg/dL Iron 20 L (50-170) ug/dL TIBC 202 L (228-460) ug/dL % Saturation 9.82 L (12.00-45.00) Transferrin 144.0 L (204.0-354.0) mg/dL Total Bilirubin (0.2-1.3) mg/dL Unconjugated Bilirubin (0.0-1.1) mg/dL AST (13-35) U/L Total Protein (6.2-8.2) g/dL Albumin (3.8-4.9) g/dL Globulin (1.6-3.3) g/dL Crossmatch See Detail 03/11/22 03/11/22 03/11/22 Range/Units 16:27 19:54 23:39 RBC 2.44 L 1.95 L (3.80-5.40) m/uL Hgb 7.5 L 5.9 L* D (11.4-16.0) gm/dL Hct 22.3 L 17.9 L* (34.0-46.0) % Plt Count 76 L 74 L (150-450) k/uL Lymphocytes # 0.6 L (1.0-4.8) k/uL PT 14.1 H (9.0-12.0) sec INR 1.4 H (<1.2) Fibrinogen (200-500) mg/dL Carbon Dioxide (20.0-27.5) mmol/L Anion Gap (10.00-18.00) mmol/L BUN (7-17) mg/dL Creatinine (0.52-1.04) mg/dL Est GFR (CKD-EPI)AfAm (60.0-200.0) Est GFR (CKD-EPI)NonAf (60.0-200.0) Glucose (70-110) mg/dL Calcium (8.7-10.3) mg/dL Iron (50-170) ug/dL TIBC (228-460) ug/dL % Saturation (12.00-45.00) Transferrin (204.0-354.0) mg/dL Total Bilirubin (0.2-1.3) mg/dL Unconjugated Bilirubin (0.0-1.1) mg/dL AST (13-35) U/L Total Protein (6.2-8.2) g/dL Albumin (3.8-4.9) g/dL Globulin (1.6-3.3) g/dL Crossmatch 03/12/22 Range/Units 07:55 RBC (3.80-5.40) m/uL Hgb (11.4-16.0) gm/dL Hct (34.0-46.0) % Plt Count (150-450) k/uL Lymphocytes # (1.0-4.8) k/uL PT (9.0-12.0) sec INR (<1.2) Fibrinogen (200-500) mg/dL Carbon Dioxide (20.0-27.5) mmol/L Anion Gap (10.00-18.00) mmol/L BUN 21 H (7-17) mg/dL Creatinine 1.17 H (0.52-1.04) mg/dL Est GFR (CKD-EPI)AfAm (60.0-200.0) Est GFR (CKD-EPI)NonAf (60.0-200.0) Glucose 163 H (70-110) mg/dL Calcium 7.9 L (8.7-10.3) mg/dL Iron (50-170) ug/dL TIBC (228-460) ug/dL % Saturation (12.00-45.00) Transferrin (204.0-354.0) mg/dL Total Bilirubin 2.2 H (0.2-1.3) mg/dL Unconjugated Bilirubin 2.2 H (0.0-1.1) mg/dL AST 70 H (13-35) U/L Total Protein 4.6 L (6.2-8.2) g/dL Albumin 2.8 L (3.8-4.9) g/dL Globulin (1.6-3.3) g/dL Crossmatch Assessment and Plan Assessment: Severe abdominal pain and lower extremity especially the right lower extremity with swelling. Rule out acute bleed or acute abnormality. coagulopathy secondary to Coumadin Altered mental status, most likely metabolic toxic encephalopathy History of pulmonary embolism on Coumadin Chronic kidney disease stage III Hypothyroidism History of fibromyalgia History of osteoarthritis History of CVA/TIA Plan: This is a pleasant 66 years old female who presents with AMS, abdomen and leg pain and cagulopathy with anemia Continue with IV hydration Transfuse to keep hemoglobin more than 7 Neurology consult already ordered by ED team Keep monitoring hemoglobin. Keep discontinuing Coumadin. Surgical team's on the case including vascular surgery, neurosurgery and orthopedic team Waste Water Operator team on the case More pain management, started on morphine and [place] when necessary today Labs and medication were reviewed.. Continue same treatment. Continue with symptomatic treatment. Resume home medication. Monitor lytes and vitals. DVT and GI prophylaxis. Further recommendations as per clinical course of the patient DVT prophylaxis: Contraindicated for severe bleeding GI Prophylaxis: Ppi PT/OT: deferred prognosis is guarded Discussed with the bedside nurse
--- NOTE | 2022-03-12 10:45 | P.GSCN ---
History of Present Illness Consult date: 03/12/22 History of present illness: Patient is a 66-year-old female with a past medical history of CVA, fibromyalgia, history of PE, sleep apnea, hypothyroidism who was admitted to the hospital with concerns of altered mental status confusion. She also has increased swelling of her right lower extremity and pain. Apparently 2 days ago she was sitting in the restroom and unable to get off the toilet. Due to her pain her and tetryl wringer operator and are giving more medication but did not seem to help. Due to although she was brought to the hospital. On admission she was found to have a supratherapeutic INR as well as significant swelling in her right lower extremity consistent with an intramuscular hematoma. She continues to have pain in her right leg Review of Systems ROS unobtainable: due to mental status Past Medical History Past Medical History: Chest Pain / Angina, CVA/TIA, Fibromyalgia, Musculoskeletal Disorder, Neurologic Disorder, Osteoarthritis (OA), Pulmonary Embolus (PE), Sleep Apnea/CPAP/BIPAP, Thyroid Disorder Additional Past Medical History / Comment(s): MULTIPLE SCLEROSIS, HX OF CVA 2006 WITH R SIDED WEAKNESS AND DYSPHASIA-MUCH IMPROVED, MIGRAINES, SLEEP APNEA(HAS C- PAP MACHINE BUT DOES NOT USE) ABD HERNIA,CHRONIC PAIN ESPECIALLY ON R SIDE OF BODY AND LOW BACK . PAINFUL FOR HER TO LIE FLAT. HX OF NOSEBLEED JUL 2014 AND RECEIVED PLASMA TRANSFUSION. takes pills with applesauce. 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 MDRO Source:: URINE Past Surgical History: Appendectomy, Cholecystectomy, Hysterectomy Additional Past Surgical History / Comment(s): Incisional hernia repair, laparoscopic lysis of adhesions in 1987, ganglion cyst removal of the left wrist, patent foramen ovale patch in 2006, RF ablation for back pain. Past Anesthesia/Blood Transfusion Reactions: No Reported Reaction Past Psychological History: Depression Additional Psychological History / Comment(s): CELEXA. PT HAS DIFFICULTY W/SPEECH BUT IS MUCH IMPROVED. HAS TO LOOK AT DIETARY MENU TO ORDER CAN'T DO IT BY PHONE. Pt resides with her spouse. She uses a cane to ambulate. She also has a walker. Spouse drives her to appointments. Spouse assists her with some ADLs when needed. Smoking Status: Never smoker Past Alcohol Use History: None Reported Past Drug Use History: None Reported Additional Drug Use History / Comment(s): Lives at home with her requires some assistance with ADLs at times - Past Family History Mother Family Medical History: Hypertension Additional Family Medical History / Comment(s): osteoporosis Father Family Medical History: Dementia, Diabetes Mellitus Medications and Allergies Home Medications Medication Instructions Recorded Confirmed Type Baclofen [Lioresal] 10 mg PO DAILY 11/08/13 03/10/22 History Furosemide [Lasix] 40 mg PO BID 11/08/13 03/10/22 History Montelukast [Singulair] 10 mg PO DAILY 11/08/13 03/10/22 History Pantoprazole Sodium [Protonix] 40 mg PO DAILY 11/08/13 03/10/22 History Potassium Chloride 20 meq PO BID 11/08/13 03/10/22 History Methylphenidate HCl [Ritalin] 20 mg PO BID 11/18/15 03/10/22 History Warfarin [Coumadin] 7.5 mg PO DAILY@1700 12/13/19 03/10/22 History fentaNYL 50MCG/HR PATCH [Duragesic 1 patch TRANSDERM Q72H 05/01/20 03/10/22 History 50MCG/HR] Levothyroxine Sodium [Synthroid] 75 mcg PO DAILY 03/10/22 03/10/22 History Pregabalin [Lyrica] 150 mg PO TID 03/10/22 03/10/22 History oxyCODONE HCL/ACETAMINOPHEN 1 tab PO BID PRN 03/10/22 03/10/22 History [Percocet 5-325 mg] Allergies Allergy/AdvReac Type Severity Reaction Status Date / Time adhesive AdvReac SKIN Verified 03/10/22 17:53 [facility] - Exam Vital Signs Temp Pulse Resp BP Pulse Ox 98.1 F 80 20 120/75 94 L 03/10/22 17:05 03/10/22 17:05 03/10/22 17:05 03/10/22 17:05 03/10/22 17:05 Gen. a pleasant female in no acute distress. She is alert but does not seem to be able to answer questions appropriately for orientation, nursing states this is due to dysphasia from previous stroke. Heart appears regular. Lungs are clear. Abdomen soft, mild right lower quadrant and right-sided tenderness to palpation. Right lower extremity swelling. Compartments of the thigh are soft. Motor intact in the bilateral lower extremities Results All imaging and labs are reviewed. No obvious evidence of extravasation from CT angiogram. - Labs 03/12/22 07:55 03/12/22 07:55 Abnormal Lab Results - Last 24 Hours (Table) 03/11/22 03/11/22 03/11/22 Range/Units 09:36 11:29 14:44 RBC 2.39 L (3.80-5.40) m/uL Hgb 7.4 L D (11.4-16.0) gm/dL Hct 22.0 L (34.0-46.0) % Plt Count 88 L (150-450) k/uL Lymphocytes # (1.0-4.8) k/uL PT 53.5 H (9.0-12.0) sec INR 5.3 H* (<1.2) Fibrinogen (200-500) mg/dL BUN (7-17) mg/dL Creatinine (0.52-1.04) mg/dL Glucose (74-99) mg/dL Calcium (8.4-10.2) mg/dL Iron (50-170) ug/dL TIBC (228-460) ug/dL % Saturation (12.00-45.00) Transferrin (204.0-354.0) mg/dL Total Bilirubin (0.2-1.3) mg/dL Unconjugated Bilirubin (0.0-1.1) mg/dL AST (14-36) U/L Total Protein (6.3-8.2) g/dL Albumin (3.5-5.0) g/dL Crossmatch See Detail 03/11/22 03/11/22 03/11/22 Range/Units 14:44 14:44 16:27 RBC 2.44 L (3.80-5.40) m/uL Hgb 7.5 L (11.4-16.0) gm/dL Hct 22.3 L (34.0-46.0) % Plt Count 76 L (150-450) k/uL Lymphocytes # (1.0-4.8) k/uL PT (9.0-12.0) sec INR (<1.2) Fibrinogen 505 H (200-500) mg/dL BUN (7-17) mg/dL Creatinine (0.52-1.04) mg/dL Glucose (74-99) mg/dL Calcium (8.4-10.2) mg/dL Iron 20 L (50-170) ug/dL TIBC 202 L (228-460) ug/dL % Saturation 9.82 L (12.00-45.00) Transferrin 144.0 L (204.0-354.0) mg/dL Total Bilirubin (0.2-1.3) mg/dL Unconjugated Bilirubin (0.0-1.1) mg/dL AST (14-36) U/L Total Protein (6.3-8.2) g/dL Albumin (3.5-5.0) g/dL Crossmatch 03/11/22 03/11/22 03/12/22 Range/Units 19:54 23:39 07:55 RBC 1.95 L (3.80-5.40) m/uL Hgb 5.9 L* D (11.4-16.0) gm/dL Hct 17.9 L* (34.0-46.0) % Plt Count 74 L (150-450) k/uL Lymphocytes # 0.6 L (1.0-4.8) k/uL PT 14.1 H (9.0-12.0) sec INR 1.4 H (<1.2) Fibrinogen (200-500) mg/dL BUN 21 H (7-17) mg/dL Creatinine 1.17 H (0.52-1.04) mg/dL Glucose 163 H (74-99) mg/dL Calcium 7.9 L (8.4-10.2) mg/dL Iron (50-170) ug/dL TIBC (228-460) ug/dL % Saturation (12.00-45.00) Transferrin (204.0-354.0) mg/dL Total Bilirubin 2.2 H (0.2-1.3) mg/dL Unconjugated Bilirubin 2.2 H (0.0-1.1) mg/dL AST 70 H (14-36) U/L Total Protein 4.6 L (6.3-8.2) g/dL Albumin 2.8 L (3.5-5.0) g/dL Crossmatch 03/12/22 Range/Units 07:55 RBC 2.25 L (3.80-5.40) m/uL Hgb 6.7 L* (11.4-16.0) gm/dL Hct 20.8 L (34.0-46.0) % Plt Count (150-450) k/uL Lymphocytes # (1.0-4.8) k/uL PT (9.0-12.0) sec INR (<1.2) Fibrinogen (200-500) mg/dL BUN (7-17) mg/dL Creatinine (0.52-1.04) mg/dL Glucose (74-99) mg/dL Calcium (8.4-10.2) mg/dL Iron (50-170) ug/dL TIBC (228-460) ug/dL % Saturation (12.00-45.00) Transferrin (204.0-354.0) mg/dL Total Bilirubin (0.2-1.3) mg/dL Unconjugated Bilirubin (0.0-1.1) mg/dL AST (14-36) U/L Total Protein (6.3-8.2) g/dL Albumin (3.5-5.0) g/dL Crossmatch Diabetes panel 03/12/22 Range/Units 07:55 Sodium 139 (137-145) mmol/L Potassium 3.5 (3.5-5.1) mmol/L Chloride 103 (98-107) mmol/L Carbon Dioxide 30 (22-30) mmol/L BUN 21 H (7-17) mg/dL Creatinine 1.17 H (0.52-1.04) mg/dL Glucose 163 H (74-99) mg/dL Calcium 7.9 L (8.4-10.2) mg/dL AST 70 H (14-36) U/L ALT 25 (4-34) U/L Alkaline Phosphatase 58 (38-126) U/L Total Protein 4.6 L (6.3-8.2) g/dL Albumin 2.8 L (3.5-5.0) g/dL Calcium panel 03/12/22 Range/Units 07:55 Calcium 7.9 L (8.4-10.2) mg/dL Albumin 2.8 L (3.5-5.0) g/dL Pituitary panel 03/12/22 Range/Units 07:55 Sodium 139 (137-145) mmol/L Potassium 3.5 (3.5-5.1) mmol/L Chloride 103 (98-107) mmol/L Carbon Dioxide 30 (22-30) mmol/L BUN 21 H (7-17) mg/dL Creatinine 1.17 H (0.52-1.04) mg/dL Glucose 163 H (74-99) mg/dL Calcium 7.9 L (8.4-10.2) mg/dL Adrenal panel 03/12/22 Range/Units 07:55 Sodium 139 (137-145) mmol/L Potassium 3.5 (3.5-5.1) mmol/L Chloride 103 (98-107) mmol/L Carbon Dioxide 30 (22-30) mmol/L BUN 21 H (7-17) mg/dL Creatinine 1.17 H (0.52-1.04) mg/dL Glucose 163 H (74-99) mg/dL Calcium 7.9 L (8.4-10.2) mg/dL Total Bilirubin 2.2 H (0.2-1.3) mg/dL AST 70 H (14-36) U/L ALT 25 (4-34) U/L Alkaline Phosphatase 58 (38-126) U/L Total Protein 4.6 L (6.3-8.2) g/dL Albumin 2.8 L (3.5-5.0) g/dL Assessment and Plan Assessment: Right lower extremity intramuscular bleed Anemia secondary to above supratherapeutic INR, now resolved Plan: At this time all imaging and labs are reviewed. Continue supportive care with transfusions as necessary. No obvious evidence of bleeding. No vascular surgical intervention warranted at this time. Currently no evidence of need for IVC filter however will be available place should be recommended per hematology. We will sign off at this time. Further recommendations per surgery and ort hopedics.
[2022-03-12 10:57] LABS: Anisocytosis (M) Present; Large Platelets Present; Poikilocytosis (M) Present
[2022-03-12 10:58] LABS: Polychromasia Present
[2022-03-12] MEDS ORDERED: FUROSEMIDE 10 MG/ML 2 ML VIAL IV ONE (11:30)
[2022-03-12] MEDS: MORPHINE SULFATE 4 MG/ML SYRINGE IVP PRN (12:00)
[2022-03-12] MEDS: FERROUS SULFATE 325 MG TAB PO SCH ×2 (14:38→17:06)
[2022-03-12 18:37] LABS: HCT 23.3 % (34.0-46.0); HGB 7.7 gm/dL (11.4-16.0); MCH 29.3 pg (25.0-35.0); MCHC 33.2 g/dL (31.0-37.0); MCV 88.4 fL (80.0-100.0); Mean Platelet Volume 14.5; RBC 2.63 m/uL (3.80-5.40); RDW 15.6 % (11.5-15.5); WBC 5.6 k/uL (3.8-10.6)
[2022-03-12 18:38] LABS: Platelet Count 61 k/uL (150-450)
[2022-03-13] MEDS: MORPHINE SULFATE 4 MG/ML SYRINGE IVP PRN ×3 (02:00→21:40)
[2022-03-13] MEDS: LEVOTHYROXINE 75 MCG TAB PO SCH (06:38)
[2022-03-13] MEDS: FERROUS SULFATE 325 MG TAB PO SCH ×2 (06:38→17:50)
[2022-03-13 08:18] LABS: Basophils % (A) 0 %; Eosinophils # (A) 0.1 k/uL (0-0.7); Eosinophils % (A) 2 %; HCT 22.3 % (34.0-46.0); HGB 7.5 gm/dL (11.4-16.0); Lymphocytes # (A) 0.6 k/uL (1.0-4.8); Lymphocytes % (A) 14 %; MCH 29.9 pg (25.0-35.0); MCHC 33.5 g/dL (31.0-37.0); MCV 89.3 fL (80.0-100.0); Monocytes # (A) 0.2 k/uL (0-1.0); Monocytes % (A) 5 %; Neutrophils % (A) 76 %; Poikilocytosis Slight; RBC 2.49 m/uL (3.80-5.40); RDW 15.9 % (11.5-15.5); WBC 3.9 k/uL (3.8-10.6)
[2022-03-13 08:27] LABS: INR 0.9 (<1.2); Prothrombin Time 10.1 sec (9.0-12.0)
[2022-03-13 08:28] LABS: Albumin 2.8 g/dL (3.5-5.0); Bilirubin,Unconjugated 2.3 mg/dL (0.0-1.1); Potassium 3.2 mmol/L (3.5-5.1); Total Bilirubin 2.3 mg/dL (0.2-1.3); Total Protein 4.7 g/dL (6.3-8.2)
[2022-03-13 08:29] LABS: Platelet Count 68 k/uL (150-450)
[2022-03-13] MEDS: MONTELUKAST 10 MG TAB PO SCH (08:50)
[2022-03-13] MEDS: PANTOPRAZOLE 40 MG/10 ML VIAL IVP SCH (08:50)
[2022-03-13] MEDS: FUROSEMIDE 40 MG TAB PO SCH ×2 (08:50→17:50)
[2022-03-13 09:07] LABS: Large Platelets Present; Polychromasia Present
--- NOTE | 2022-03-13 10:05 | P.PN ---
Subjective This is a pleasant 66 years old female with past medical history of hypothyroidism, CVA/TIA, fibromyalgia, osteoarthritis, pulmonary embolism, sleep apnea Medication review were with [facility]: She is on re-tunneling twice daily, Percocet 5 mg twice daily, Lyrica Patient is a known history of multiple sclerosis and CVA. She lives with her at home who takes care of her. At baseline she looks little bit confused, as per bedside nurse recognize her from previous admission today her mentation looks at baseline. She has chronic dysarthria. And she and her were in the process of following up with neurologist at [facility] for further treatment. Also she is an Coumadin for her history of PE. Patient however has poor historian, she could not tell where she is and she was disoriented to time and person as well but she can't tell me her name and she follows simple commands and some questions appropriately. I called the Mr. Shaikh, according to him 2 days ago she was sitting in the chair and her bedroom at usual and he wants to check on her, he noticed that she was sitting on the toilet seat with some stool mass underneath her which is unusual for her and she was complaining of from pain all over but according to the male in the abdomen and lower extremities, he could not get her up initially he tried but she hurts but eventually he could get her into the her on chair. He gave her more pain medication but that did not help her, she was still confused and sleepy to him and she was still hurting a lot so he decided to bring her to the hospital. Patient is complaining of from abdominal pain and tenderness which tends also lower extremity pain and tenderness especially the right lower extremity and the right thigh which looks more swollen than the left and more tense but no evidence of ecchymosis. Vital signs stable. Blood pressure is low normal which looks like her baseline. CBC is unremarkable. Platelet count SoloSite 86. INR is elevated 5.6 Creatinine 1.3 which is baseline of 1.-1.4. Pulse is 159. Liver enzymes not significantly elevated. Urinalysis showing concentrated sample 1+ protein and 2+ tone. Urine drug screen is positive for amphetamine. EKG showing supraventricular rhythm at rate of 80 Abdominal x-ray, no acute abnormality Chest x-ray: Negative exam Right femoral x-ray, no acute process CT of the brain no acute process Patient is on normal saline at 75 mL prior within urology is consulted 03/12/2022 patient today still complaining of from significant pain in her right thigh and abdomen, she refused them to be touched and she is in severe pain, morphine 4 mg every 4 hours is added. Her blood pressure is a stable, the swelling does not look significantly worse compared to yesterday. Her hemoglobin dropped last night to 5.7 and received 1 unit of blood, her he moglobin this morning was 6.7 and she is receiving another blood. Also she is on Lasix 40 mg twice daily and she has good urine output, like 1.5 L yesterday and 700 mL since morning. Patient has Vasques catheter. She remains on normal saline at 75 mL/h however he is going to be held while blood transfusion begins. Also she will receive extra dose of IV Lasix, discussed with the bedside nurse. I discussed the case with vascular surgery. No need for surgical intervention now. Also no need for intervention by orthopedic team as there is no compartment syndrome. Coumadin remains on hold and INR improved to 1 on 1.4. Hematology team on the case 03/13/2022 Patient's hemoglobin is stable this morning after units of blood transfusion yesterday, to reduce this morning are 7.7 and 7.5. Recent labs were stable and creatinine 1.1. Patient is lying in bed. The time. She still complaining of from some significant tenderness in her thigh and abdomen, but they're improving, less dense, she denies nausea vomiting Her hemoglobin is still been monitored conservatively, no need for surgical intervention, no need for IVC filter for now unless is indicated by hematology service. Surgery team signed off the case. Coumadin remains on hold. Objective - Vital Signs Vital signs: Vital Signs Temp 98.7 F 03/13/22 03:59 Pulse 65 03/13/22 03:59 Resp 16 03/13/22 03:59 BP 119/59 03/13/22 03:59 Pulse Ox 97 03/13/22 03:59 FiO2 Intake & Output 03/12/22 03/13/22 03/13/22 18:59 06:59 18:59 Intake Total 1626 240 Output Total 750 1600 Balance 876 -1360 Weight 105.5 kg Intake: Intake, IV Titration 600 240 Amount Sodium Chloride 0.9% 1, 600 240 000 ml @ 75 mls/hr IV . [id number] [facility] Rx#:[id number] Oral 716 Blood Product 310 Rc As-1 Unit 310 [id number] Output: Urine 750 1600 Uretheral (Vasques) 1600 Other: Voiding Method Indwelling Catheter Indwelling Catheter - Exam GENERAL: The patient is alert and oriented x3, not in any acute distress. Well developed, well nourished. HEENT: Pupils are round and equally reacting to light. EOMI. No scleral icterus. No conjunctival pallor. Normocephalic, atraumatic. No pharyngeal erythema. No thyromegaly. CARDIOVASCULAR: S1 and S2 present. No murmurs, rubs, or gallops. PULMONARY: Chest is clear to auscultation, no wheezing or crackles. -ABDOMEN: Soft, abdomen tenderness with guarding, nondistended, normoactive bowel sounds. No palpable organomegaly. MUSCULOSKELETAL: No joint swelling or deformity. -EXTREMITIES: No cyanosis, clubbing, or pedal edema. Right leg is tender and swollen especially thigh. Left leg is markedly swollen and painful NEUROLOGICAL: Gross neurological examination did not reveal any focal deficits. SKIN: No rashes. no petechiae. - Labs CBC & Chem 7: 03/13/22 07:57 03/13/22 07:57 Labs: Abnormal Lab Results - Last 24 Hours (Table) 03/11/22 03/12/22 03/12/22 Range/Units 14:44 07:55 18:29 RBC 2.25 L 2.63 L (3.80-5.40) m/uL Hgb 6.7 L* 7.7 L (11.4-16.0) gm/dL Hct 20.8 L 23.3 L (34.0-46.0) % RDW 15.6 H (11.5-15.5) % Plt Count 72 L 61 L (150-450) k/uL Lymphocytes # 0.8 L (1.0-4.8) k/uL Potassium (3.5-5.1) mmol/L BUN (7-17) mg/dL Creatinine (0.52-1.04) mg/dL Glucose (74-99) mg/dL Calcium (8.4-10.2) mg/dL Total Bilirubin (0.2-1.3) mg/dL Unconjugated Bilirubin (0.0-1.1) mg/dL AST (14-36) U/L Total Protein (6.3-8.2) g/dL Albumin (3.5-5.0) g/dL Crossmatch See Detail 03/13/22 03/13/22 Range/Units 07:57 07:57 RBC 2.49 L (3.80-5.40) m/uL Hgb 7.5 L (11.4-16.0) gm/dL Hct 22.3 L (34.0-46.0) % RDW 15.9 H (11.5-15.5) % Plt Count 68 L (150-450) k/uL Lymphocytes # 0.6 L (1.0-4.8) k/uL Potassium 3.2 L (3.5-5.1) mmol/L BUN 20 H (7-17) mg/dL Creatinine 1.10 H (0.52-1.04) mg/dL Glucose 131 H (74-99) mg/dL Calcium 8.0 L (8.4-10.2) mg/dL Total Bilirubin 2.3 H (0.2-1.3) mg/dL Unconjugated Bilirubin 2.3 H (0.0-1.1) mg/dL AST 57 H (14-36) U/L Total Protein 4.7 L (6.3-8.2) g/dL Albumin 2.8 L (3.5-5.0) g/dL Crossmatch Assessment and Plan Assessment: Severe abdominal pain and lower extremity especially the right lower extremity with swelling. Rule out acute bleed or acute abnormality. coagulopathy secondary to Coumadin Altered mental status, most likely metabolic toxic encephalopathy History of pulmonary embolism on Coumadin Chronic kidney disease stage III Hypothyroidism History of fibromyalgia History of osteoarthritis History of CVA/TIA Plan: This is a pleasant 66 years old female who presents with AMS, abdomen and leg pain and cagulopathy with anemia Continue with IV hydration Transfuse to keep hemoglobin more than 7 Neurology consult already ordered by ED team Keep monitoring hemoglobin. Keep discontinuing Coumadin. Surgical team's on the case including vascular surgery, neurosurgery and orthopedic team Moulder Operator team on the case More pain management, started on morphine and Center when necessary today Labs and medication were reviewed.. Continue same treatment. Continue with symptomatic treatment. Resume home medication. Monitor lytes and vitals. DVT and GI prophylaxis. Further recommendations as per clinical course of the patient DVT prophylaxis: Contraindicated for severe bleeding GI Prophylaxis: Ppi PT/OT: deferred prognosis is guarded Discussed with the bedside nurse
--- NOTE | 2022-03-13 10:30 | P.PN ---
Progress Note - Text Progress Note Date: 03/13/22 Patient remains clinically unchanged. Her he will was stable and 7.5. There is no significant increase in her ecchymosis on the right hip. The patient will be followed. No surgical intervention is planned.
[2022-03-13] MEDS ORDERED: Magnesium Replacement Protocol 1 EACH MISC MISCELLANE PRN (11:27)
[2022-03-13] MEDS ORDERED: Potassium Replacement Protocol 1 EACH MISC MISCELLANE PRN (20:49)
[2022-03-13] MEDS: POTASSIUM CHLORIDE ER 20 MEQ TAB.ER PO SCH ×2 (20:58→21:41)
[2022-03-14] MEDS: FERROUS SULFATE 325 MG TAB PO SCH ×2 (06:46→16:35)
[2022-03-14] MEDS: LEVOTHYROXINE 75 MCG TAB PO SCH (06:46)
[2022-03-14 06:51] LABS: Anisocytosis Slight; Basophils % (A) 0 %; Eosinophils # (A) 0.1 k/uL (0-0.7); Eosinophils % (A) 2 %; HCT 23.8 % (34.0-46.0); HGB 7.9 gm/dL (11.4-16.0); Hypochromasia Slight; Lymphocytes # (A) 0.5 k/uL (1.0-4.8); Lymphocytes % (A) 13 %; MCH 30.2 pg (25.0-35.0); MCHC 33.3 g/dL (31.0-37.0); MCV 90.7 fL (80.0-100.0); Mean Platelet Volume 15.3; Monocytes # (A) 0.2 k/uL (0-1.0); Monocytes % (A) 6 %; Neutrophils # (A) 2.8 k/uL (1.3-7.7); Neutrophils % (A) 76 %; Poikilocytosis Slight; RBC 2.62 m/uL (3.80-5.40); RDW 16.3 % (11.5-15.5); WBC 3.7 k/uL (3.8-10.6)
[2022-03-14 06:57] LABS: Platelet Count 74 k/uL (150-450)
[2022-03-14 07:00] LABS: INR 0.9 (<1.2); Prothrombin Time 10.2 sec (9.0-12.0)
[2022-03-14 07:07] LABS: Calcium 8.6 mg/dL (8.4-10.2); Potassium 3.9 mmol/L (3.5-5.1)
[2022-03-14] MEDS: PANTOPRAZOLE 40 MG/10 ML VIAL IVP SCH (08:21)
--- NOTE | 2022-03-14 10:23 | P.PN ---
Subjective Progress Note Date: 03/14/22 This is a 66-year-old female patient who presented to the hospital on 03/12/2022 with altered mental status changes. Patient is well-known to my service with a past medical history of MS, hypothyroidism CVA, fibromyalgia, osteoarthritis, CVA, pulmonary embolism and sleep apnea. According to records patient was found to have increased confusion per . patient was found to be anemic with a hemoglobin of 5.9 with a right thigh swelling and abdominal pain. CT of abdomen and pelvis completed showing extensive soft tissue swelling along the anterior lower pelvis anterior. And right groin. Surgical services were consulted. patietn transfused with 2 units of PRBCs and and 1 unit of FFP. Coumadin currently on hold. Surgical, orthopedic services and hematology services were consulted. No surgical plans at this time. Hemoglobin improving to 7.9. On 03/14/2022 patient is alert resting comfortably in bed. Patient still complaining of generalized pain. Hemoglobin 7.9 platelets 74. Coumadin remains on hold. At this time vascular surgery, orthopedic services, surgical services, neurology and hematology services are following. Per records no plans for surgical intervention at this time no need for IVC filter per hematology services. Surgical vascular surgery have signed off. Patient denies chest pain or shortness breath. Patient denies nausea vomiting or diarrhea. Patient denies any urinary burning frequency Objective - Vital Signs Vital signs: Vital Signs Temp 98.0 F 03/14/22 08:23 Pulse 67 03/14/22 08:23 Resp 18 03/14/22 08:23 BP 132/68 03/14/22 08:23 Pulse Ox 95 03/14/22 08:23 FiO2 Intake & Output 03/13/22 03/14/22 03/14/22 18:59 06:59 18:59 Intake Total 118 0 Output Total 1700 650 Balance -1582 -650 0 Intake: Oral 118 0 Output: Urine 1700 650 Other: Voiding Method Indwelling Catheter Indwelling Catheter Indwelling Catheter - Exam Head normocephalic Neck supple Lungs clear to auscultation bilaterally no wheezing or crackles Heart regular rate and rhythm S1-S2, no rub or gallop Abdomen is soft nontender nondistended positive bowel sounds no hepatosplenomegaly Extremities no edema Neuro alert and orientated to 3. Expressive aphasia - Labs CBC & Chem 7: 03/14/22 06:38 03/14/22 06:38 Labs: Abnormal Lab Results - Last 24 Hours (Table) 03/14/22 03/14/22 Range/Units 06:38 06:38 WBC 3.7 L (3.8-10.6) k/uL RBC 2.62 L (3.80-5.40) m/uL Hgb 7.9 L (11.4-16.0) gm/dL Hct 23.8 L (34.0-46.0) % RDW 16.3 H (11.5-15.5) % Plt Count 74 L (150-450) k/uL Lymphocytes # 0.5 L (1.0-4.8) k/uL Carbon Dioxide 32 H (22-30) mmol/L BUN 22 H (7-17) mg/dL Glucose 115 H (74-99) mg/dL Assessment and Plan Assessment: 1. Anemia with supratherapeutic INR with left lower extremity swelling. Orthopedic services were consulted department syndrome oh. Surgical surfaces also consulted for surgical intervention at this time vascular surgery following. 2. Coagulopathy secondary to Coumadin 3. Altered mental status changes 4. History of pulmonary embolism maintained on Coumadin 5. Chronic kidney disease stage III 6. History history of multiple sclerosis 7. History of fibromyalgia 8. History of osteoarthritis 9. History of CVA At this time patient remains on telemetry floor. Hemoglobin 7.9 Hematology, Vascular surgery, orthopedic surgery, general surgery and neurology services following. Coumadin on hold Repeat labs ordered
[2022-03-14] MEDS: MONTELUKAST 10 MG TAB PO SCH (12:04)
[2022-03-14] MEDS: FUROSEMIDE 40 MG TAB PO SCH ×2 (12:04→16:45)
--- NOTE | 2022-03-14 13:46 | P.PN ---
Subjective Progress Note Date: 03/14/22 CHIEF COMPLAINT: Right thigh intramuscular hematoma HISTORY OF PRESENT ILLNESS: The patient on bed comfortably. Pain is controlled. There is slight decrease in the swelling of her right leg. Hemoglobin stable at 7.9. She is tolerating regular diet. No complaints of abdominal pain. Afebrile. Patient seen and examined with Dr. davidson PHYSICAL EXAM: VITAL SIGNS: Reviewed. GENERAL: Well-developed in no acute distress. HEENT: No sclera icterus. Extraocular movements grossly intact. Moist buccal mucosa. Head is atraumatic, normocephalic. ABDOMEN: Soft. Nondistended. Extremities: Right medial thigh with yellow bruising. slight decrease in swelling ASSESSMENT: 1. Right thigh intramuscular hematoma 2. Chronic abdominal pain PLAN: -No surgical intervention planned -Hold Coumadin -Continue supportive care -Continue to monitor hemoglobin Physician Automobile Upholsterer Apprentice note has been reviewed by physician. Signing provider agrees with the documented findings, assessment, and plan of care. Objective - Vital Signs Vital signs: Vital Signs Temp 97.9 F 03/14/22 12:00 Pulse 70 03/14/22 12:00 Resp 18 03/14/22 12:00 BP 140/62 03/14/22 12:00 Pulse Ox 97 03/14/22 12:00 FiO2 Intake & Output 03/13/22 03/14/22 03/14/22 18:59 06:59 18:59 Intake Total 118 118 Output Total 1700 650 Balance -1582 -650 118 Intake: Oral 118 118 Output: Urine 1700 650 Other: Voiding Method Indwelling Catheter Indwelling Catheter Indwelling Catheter - Labs CBC & Chem 7: 03/14/22 06:38 03/14/22 06:38 Labs: Abnormal Lab Results - Last 24 Hours (Table) 03/14/22 03/14/22 Range/Units 06:38 06:38 WBC 3.7 L (3.8-10.6) k/uL RBC 2.62 L (3.80-5.40) m/uL Hgb 7.9 L (11.4-16.0) gm/dL Hct 23.8 L (34.0-46.0) % RDW 16.3 H (11.5-15.5) % Plt Count 74 L (150-450) k/uL Lymphocytes # 0.5 L (1.0-4.8) k/uL Carbon Dioxide 32 H (22-30) mmol/L BUN 22 H (7-17) mg/dL Glucose 115 H (74-99) mg/dL
[2022-03-15] MEDS: MORPHINE SULFATE 4 MG/ML SYRINGE IVP PRN (02:11)
[2022-03-15] MEDS: LEVOTHYROXINE 75 MCG TAB PO SCH (05:18)
[2022-03-15] MEDS: HYDROcodone/APAP 10-325MG 1 EACH TAB PO PRN ×2 (05:18→21:35)
[2022-03-15] MEDS: FERROUS SULFATE 325 MG TAB PO SCH ×2 (05:18→17:21)
[2022-03-15] MEDS: FUROSEMIDE 40 MG TAB PO SCH ×2 (08:18→17:20)
[2022-03-15] MEDS: MONTELUKAST 10 MG TAB PO SCH (08:19)
[2022-03-15] MEDS: PANTOPRAZOLE 40 MG/10 ML VIAL IVP SCH (08:19)
[2022-03-15 09:15] LABS: Albumin 3.1 g/dL (3.5-5.0); Calcium 8.6 mg/dL (8.4-10.2); Potassium 3.4 mmol/L (3.5-5.1); Total Bilirubin 3.3 mg/dL (0.2-1.3)
[2022-03-15 09:24] LABS: Basophils % (A) 0 %; Eosinophils # (A) 0.1 k/uL (0-0.7); Eosinophils % (A) 1 %; HCT 23.6 % (34.0-46.0); Hypochromasia Slight; Lymphocytes # (A) 0.5 k/uL (1.0-4.8); Lymphocytes % (A) 12 %; MCH 30.5 pg (25.0-35.0); MCHC 33.6 g/dL (31.0-37.0); MCV 90.5 fL (80.0-100.0); Mean Platelet Volume 12.6; Monocytes # (A) 0.3 k/uL (0-1.0); Monocytes % (A) 6 %; Neutrophils # (A) 3.4 k/uL (1.3-7.7); Neutrophils % (A) 80 %; Poikilocytosis Slight; RBC 2.61 m/uL (3.80-5.40); WBC 4.3 k/uL (3.8-10.6)
[2022-03-15 09:31] LABS: Platelet Count 101 k/uL (150-450)
--- NOTE | 2022-03-15 12:05 | P.PN ---
Subjective Progress Note Date: 03/15/22 CHIEF COMPLAINT: Right thigh intramuscular hematoma HISTORY OF PRESENT ILLNESS: The patient is sitting up in bed comfortably. Pain is controlled. She has swelling in her right leg is about the same. Hemoglobin stable and is up from 7.9 to 8.0. She is tolerating regular diet. No complaints of abdominal pain. Afebrile. Patient seen and examined with Dr. davidson PHYSICAL EXAM: VITAL SIGNS: Reviewed. GENERAL: Well-developed in no acute distress. HEENT: No sclera icterus. Extraocular movements grossly intact. Moist buccal mucosa. Head is atraumatic, normocephalic. ABDOMEN: Soft. Nondistended. Extremities: Right thigh with yellow bruising and swelling and ecchymosis developing medial right thigh. Patient also has a yellowish bruising across the lower pelvis area and medial left thigh ASSESSMENT: 1. Right thigh intramuscular hematoma 2. Chronic abdominal pain PLAN: -No surgical intervention planned -Hold Coumadin -Continue supportive care -Continue to monitor hemoglobin Physician Chief Business Officer note has been reviewed by physician. Signing provider agrees with the documented findings, assessment, and plan of care. Objective - Vital Signs Vital signs: Vital Signs Temp 98.3 F 03/15/22 08:17 Pulse 71 03/15/22 08:17 Resp 18 03/15/22 08:17 BP 125/64 03/15/22 08:17 Pulse Ox 94 L 03/15/22 08:17 FiO2 Intake & Output 03/14/22 03/15/22 03/15/22 18:59 06:59 18:59 Intake Total 236 10 Output Total 850 100 Balance 236 -840 -100 Intake: IV 10 Invasive Line 1 10 Oral 236 Output: Urine 850 100 Other: Voiding Method Indwelling Catheter Indwelling Catheter - Labs CBC & Chem 7: 03/15/22 07:51 03/15/22 07:51 Labs: Abnormal Lab Results - Last 24 Hours (Table) 03/15/22 03/15/22 Range/Units 07:51 07:51 RBC 2.61 L (3.80-5.40) m/uL Hgb 8.0 L (11.4-16.0) gm/dL Hct 23.6 L (34.0-46.0) % RDW 16.0 H (11.5-15.5) % Plt Count 101 L (150-450) k/uL Lymphocytes # 0.5 L (1.0-4.8) k/uL Potassium 3.4 L (3.5-5.1) mmol/L BUN 22 H (7-17) mg/dL Glucose 105 H (74-99) mg/dL Total Bilirubin 3.3 H (0.2-1.3) mg/dL Total Protein 5.0 L (6.3-8.2) g/dL Albumin 3.1 L (3.5-5.0) g/dL
[2022-03-15 12:10] LABS: Reticulocyte % 6.1 % (0.5-2.0)
[2022-03-15 13:10] LABS: Prothrombin Time 10.5 sec (9.0-12.0)
--- NOTE | 2022-03-15 18:19 | P.PN ---
Subjective Progress Note Date: 03/15/22 Principal diagnosis: AMS, coagulopathy In f/u today pt was not able to tell me where she was, her conversation with me was very confusing. She denied having pain. Objective - Vital Signs Vital signs: Vital Signs Temp 98.6 F 03/15/22 16:00 Pulse 73 03/15/22 16:00 Resp 18 03/15/22 16:00 BP 124/75 03/15/22 16:00 Pulse Ox 98 03/15/22 16:00 FiO2 Intake & Output 03/14/22 03/15/22 03/15/22 18:59 06:59 18:59 Intake Total 236 10 118 Output Total 850 1600 Balance 467 -742 -6299 Intake: IV 10 Invasive Line 1 10 Oral 236 118 Output: Urine 850 1600 Other: Voiding Method Indwelling Catheter Indwelling Catheter Indwelling Catheter - Constitutional General appearance: Present: cooperative, morbidly obese, no acute distress - EENT Eyes: Present: anicteric sclerae, EOMI ENT: Present: hearing grossly normal - Respiratory Details: respirations even and unlabored at rest - Integumentary Integumentary Comment(s): multiple bruises on extremities Integumentary: Present: pale - Neurologic Neurologic: Present: CNII-XII intact (grossly) - Musculoskeletal Musculoskeletal: Present: generalized weakness - Psychiatric Psychiatric Comment(s): A&O 1, pleasant affect, judgment and insight is not intact - Labs CBC & Chem 7: 03/15/22 07:51 03/15/22 07:51 Labs: Abnormal Lab Results - Last 24 Hours (Table) 03/15/22 03/15/22 03/15/22 Range/Units 07:51 07:51 07:51 RBC 2.61 L (3.80-5.40) m/uL Hgb 8.0 L (11.4-16.0) gm/dL Hct 23.6 L (34.0-46.0) % RDW 16.0 H (11.5-15.5) % Plt Count 101 L (150-450) k/uL Lymphocytes # 0.5 L (1.0-4.8) k/uL Retic Count 6.1 H (0.5-2.0) % Potassium 3.4 L (3.5-5.1) mmol/L BUN 22 H (7-17) mg/dL Glucose 105 H (74-99) mg/dL Total Bilirubin 3.3 H (0.2-1.3) mg/dL Total Protein 5.0 L (6.3-8.2) g/dL Albumin 3.1 L (3.5-5.0) g/dL Assessment and Plan (1) Coagulopathy Current Visit: Yes Status: Acute Priority: High Code(s): D68.9 - COAGULATION DEFECT, UNSPECIFIED SNOMED Code(s): 73156679 Plan: Coagulopathy has been reversed. Did an extensive chart review on patient today after she was not able to provide me with any information. Questioning why patient continues to be on Coumadin. 2014 documents that pt had Hx of PE. Pt does not recall a clot in her leg or lungs, or any of the circumstances around the blood clot-surgery, injury, immobilization. Saw documentation of a possible PFO with a echo done in 2013 to assess if that PFO repair had taken and it was closed-it was not reported if the PFO was closed. Doppler of RLE 12/2017 was neg for DVT. Pt has had mutliple hospitalizations for surpatheraeutic INR, some bleeding and anemia. Risks versus benefit of having this patient on Coumadin should be considered. Or other possible anticoagulant that would reduce the risk of her being supratherapeutic. I will cont to investigate her case and see if I find an absolute contraindication for discontinuation of anticoagulation. For now, continue patient on her Coumadin, as ordered by Internal Medicine, with INR montoring. Time with Patient: Greater than 30
[2022-03-15] MEDS: ENOXAPARIN 40 MG/0.4 ML SYRINGE SQ SCH (18:54)
[2022-03-16] MEDS: HYDROcodone/APAP 10-325MG 1 EACH TAB PO PRN (06:29)
[2022-03-16] MEDS: LEVOTHYROXINE 75 MCG TAB PO SCH (06:30)
[2022-03-16] MEDS: FERROUS SULFATE 325 MG TAB PO SCH ×2 (06:30→17:22)
[2022-03-16 08:33] LABS: Anisocytosis Slight; Basophils % (A) 0 %; Eosinophils # (A) 0.1 k/uL (0-0.7); Eosinophils % (A) 2 %; HCT 25.3 % (34.0-46.0); HGB 8.3 gm/dL (11.4-16.0); Hypochromasia Slight; Lymphocytes # (A) 0.5 k/uL (1.0-4.8); Lymphocytes % (A) 10 %; MCH 29.9 pg (25.0-35.0); MCHC 32.8 g/dL (31.0-37.0); MCV 91.2 fL (80.0-100.0); Mean Platelet Volume 11.9; Monocytes # (A) 0.4 k/uL (0-1.0); Monocytes % (A) 8 %; Neutrophils # (A) 3.7 k/uL (1.3-7.7); Neutrophils % (A) 79 %; Platelet Count 125 k/uL (150-450); Poikilocytosis Slight; RBC 2.77 m/uL (3.80-5.40); RDW 16.2 % (11.5-15.5); WBC 4.7 k/uL (3.8-10.6)
[2022-03-16] MEDS: PANTOPRAZOLE 40 MG/10 ML VIAL IVP SCH (08:34)
[2022-03-16] MEDS: MONTELUKAST 10 MG TAB PO SCH (08:34)
[2022-03-16] MEDS: ENOXAPARIN 40 MG/0.4 ML SYRINGE SQ SCH (08:34)
[2022-03-16] MEDS: FUROSEMIDE 40 MG TAB PO SCH ×2 (08:38→17:22)
--- NOTE | 2022-03-16 12:12 | P.PN ---
Subjective Progress Note Date: 03/15/22 This is a 66-year-old female patient who presented to the hospital on 03/12/2022 with altered mental status changes. Patient is well-known to my service with a past medical history of MS, hypothyroidism CVA, fibromyalgia, osteoarthritis, CVA, pulmonary embolism and sleep apnea. According to records patient was found to have increased confusion per . patient was found to be anemic with a hemoglobin of 5.9 with a right thigh swelling and abdominal pain. CT of abdomen and pelvis completed showing extensive soft tissue swelling along the anterior lower pelvis anterior. And right groin. Surgical services were consulted. patietn transfused with 2 units of PRBCs and and 1 unit of FFP. Coumadin currently on hold. Surgical, orthopedic services and hematology services were consulted. No surgical plans at this time. Hemoglobin improving to 7.9. On 03/14/2022 patient is alert resting comfortably in bed. Patient still complaining of generalized pain. Hemoglobin 7.9 platelets 74. Coumadin remains on hold. At this time vascular surgery, orthopedic services, surgical services, neurology and hematology services are following. Per records no plans for surgical intervention at this time no need for IVC filter per hematology services. Surgical vascular surgery have signed off. Patient denies chest pain or shortness breath. Patient denies nausea vomiting or diarrhea. Patient denies any urinary burning frequency 03/15/2022 patient is resting comfortably in bed. Hemoglobin 8.0. Awaiting further oncology recommendations regards to anticoagulation. Patient has been started on Lovenox 40 subcu daily. At this time patient denies chest pain or shortness breath. Patient denies nausea vomiting or diarrhea. Patient denies any urinary burning or frequency Objective - Vital Signs Vital signs: Vital Signs Temp 98.6 F 03/15/22 16:00 Pulse 73 03/15/22 16:00 Resp 18 03/15/22 16:00 BP 124/75 03/15/22 16:00 Pulse Ox 98 03/15/22 16:00 FiO2 Intake & Output 03/14/22 03/15/22 03/15/22 18:59 06:59 18:59 Intake Total 236 10 236 Output Total 850 1600 Balance 236 840 -1364 Intake: IV 10 Invasive Line 1 10 Oral 236 236 Output: Urine 850 1600 Other: Voiding Method Indwelling Catheter Indwelling Catheter Indwelling Catheter - Exam Head normocephalic Neck supple Lungs clear to auscultation bilaterally no wheezing or crackles Heart regular rate and rhythm S1-S2, no rub or gallop Abdomen is soft nontender nondistended positive bowel sounds no hepatosplenomegaly Extremities no edema Neuro alert and orientated to 3. Expressive aphasia - Labs CBC & Chem 7: 03/16/22 07:11 03/15/22 07:51 Labs: Abnormal Lab Results - Last 24 Hours (Table) 03/15/22 03/15/22 03/15/22 Range/Units 07:51 07:51 07:51 RBC 2.61 L (3.80-5.40) m/uL Hgb 8.0 L (11.4-16.0) gm/dL Hct 23.6 L (34.0-46.0) % RDW 16.0 H (11.5-15.5) % Plt Count 101 L (150-450) k/uL Lymphocytes # 0.5 L (1.0-4.8) k/uL Retic Count 6.1 H (0.5-2.0) % Potassium 3.4 L (3.5-5.1) mmol/L BUN 22 H (7-17) mg/dL Glucose 105 H (74-99) mg/dL Total Bilirubin 3.3 H (0.2-1.3) mg/dL Total Protein 5.0 L (6.3-8.2) g/dL Albumin 3.1 L (3.5-5.0) g/dL Assessment and Plan Assessment: 1. Anemia with supratherapeutic INR with left lower extremity swelling. Orthopedic services were consulted department syndrome oh. Surgical surfaces also consulted for surgical intervention at this time vascular surgery following. 2. Coagulopathy secondary to Coumadin 3. Altered mental status changes 4. History of pulmonary embolism maintained on Coumadin 5. Chronic kidney disease stage III 6. History history of multiple sclerosis 7. History of fibromyalgia 8. History of osteoarthritis 9. History of CVA At this time patient remains on telemetry floor. Hemoglobin 7.9 Hematology, Vascular surgery, orthopedic surgery, general surgery and neurology services following. Coumadin on hold Repeat labs ordered
--- NOTE | 2022-03-16 12:15 | P.PN ---
Subjective Progress Note Date: 03/16/22 This is a 66-year-old female patient who presented to the hospital on 03/12/2022 with altered mental status changes. Patient is well-known to my service with a past medical history of MS, hypothyroidism CVA, fibromyalgia, osteoarthritis, CVA, pulmonary embolism and sleep apnea. According to records patient was found to have increased confusion per . patient was found to be anemic with a hemoglobin of 5.9 with a right thigh swelling and abdominal pain. CT of abdomen and pelvis completed showing extensive soft tissue swelling along the anterior lower pelvis anterior. And right groin. Surgical services were consulted. patietn transfused with 2 units of PRBCs and and 1 unit of FFP. Coumadin currently on hold. Surgical, orthopedic services and hematology services were consulted. No surgical plans at this time. Hemoglobin improving to 7.9. On 03/14/2022 patient is alert resting comfortably in bed. Patient still complaining of generalized pain. Hemoglobin 7.9 platelets 74. Coumadin remains on hold. At this time vascular surgery, orthopedic services, surgical services, neurology and hematology services are following. Per records no plans for surgical intervention at this time no need for IVC filter per hematology services. Surgical vascular surgery have signed off. Patient denies chest pain or shortness breath. Patient denies nausea vomiting or diarrhea. Patient denies any urinary burning frequency 03/15/2022 patient is resting comfortably in bed. Hemoglobin 8.0. Awaiting further oncology recommendations regards to anticoagulation. Patient has been started on Lovenox 40 subcu daily. At this time patient denies chest pain or shortness breath. Patient denies nausea vomiting or diarrhea. Patient denies any urinary burning or frequency 03/16/2022 patient resting comfortably in bed alert. Hemoglobin any 8.3. Patient remains on Lovenox Coumadin on hold. Per oncology note and sitting risk versus benefit of Coumadin further recommendations to come per oncology services. At this time patient denies chest pain or shortness breath. Patient denies nausea vomiting or diarrhea. Patient denies any urinary burning or frequency Objective - Vital Signs Vital signs: Vital Signs Temp 98.8 F 03/16/22 11:44 Pulse 68 03/16/22 11:44 Resp 18 03/16/22 11:44 BP 104/59 03/16/22 11:44 Pulse Ox 94 L 03/16/22 11:44 FiO2 21 03/15/22 19:10 Intake & Output 03/15/22 03/16/22 03/16/22 18:59 06:59 18:59 Intake Total 236 0 Output Total 1600 750 250 Balance -4561 -750 250 Intake: Oral 236 0 Output: Urine 1600 750 250 Other: Voiding Method Indwelling Catheter Indwelling Catheter Indwelling Catheter - Exam Head normocephalic Neck supple Lungs clear to auscultation bilaterally no wheezing or crackles Heart regular rate and rhythm S1-S2, no rub or gallop Abdomen is soft nontender nondistended positive bowel sounds no hepatosplenomegaly Extremities no edema Neuro alert and orientated to 3. Expressive aphasia - Labs CBC & Chem 7: 03/16/22 07:11 03/15/22 07:51 Labs: Abnormal Lab Results - Last 24 Hours (Table) 03/15/22 03/16/22 Range/Units 07:51 07:11 RBC 2.77 L (3.80-5.40) m/uL Hgb 8.3 L (11.4-16.0) gm/dL Hct 25.3 L (34.0-46.0) % RDW 16.2 H (11.5-15.5) % Vitamin B12 156.0 L (200.0-944.0) pg/mL Assessment and Plan Assessment: 1. Anemia with supratherapeutic INR with left lower extremity swelling. Orthopedic services were consulted department [facility] [place]. Surgical services also consulted for surgical intervention at this time vascular surgery following. 2. Coagulopathy secondary to Coumadin 3. Altered mental status changes 4. History of pulmonary embolism maintained on Coumadin 5. Chronic kidney disease stage III 6. History history of multiple sclerosis 7. History of fibromyalgia 8. History of osteoarthritis 9. History of CVA At this time patient remains on telemetry floor. Hematology, Vascular surgery, orthopedic surgery, general surgery and neurology services following. Coumadin on hold Repeat labs ordered Hematology services following and will further assess need for anticoagulation risk versus benefit Repeat labs ordered for a.m.
[2022-03-16 13:17] LABS: Large Platelets Present
--- NOTE | 2022-03-16 13:50 | P.PN ---
Subjective Progress Note Date: 03/16/22 CHIEF COMPLAINT: Right thigh intramuscular hematoma HISTORY OF PRESENT ILLNESS: The patient is sitting up in bed comfortably. Pain is controlled. She has swelling in her right leg is about the same. Hemoglobin stable and is trending up to 8.3. Patient being evaluated by hematology regarding a possible discontinuation of the Coumadin. She is tolerating regular diet. No complaints of abdominal pain. Afebrile. Patient seen and examined with Dr. davidson PHYSICAL EXAM: VITAL SIGNS: Reviewed. GENERAL: Well-developed in no acute distress. HEENT: No sclera icterus. Extraocular movements grossly intact. Moist buccal mucosa. Head is atraumatic, normocephalic. ABDOMEN: Soft. Nondistended. Extremities: Right thigh with yellow bruising and swelling and ecchymosis developing medial right thigh. Patient also has a yellowish bruising across the lower pelvis area and medial left thigh ASSESSMENT: 1. Right thigh intramuscular hematoma 2. Chronic abdominal pain PLAN: -No surgical intervention planned -Hold Coumadin -Continue supportive care -Continue to monitor hemoglobin -Agree with hematology evaluation Physician Fluoroscope Operator note has been reviewed by physician. Signing provider agrees with the documented findings, assessment, and plan of care. Objective - Vital Signs Vital signs: Vital Signs Temp 97.6 F 03/16/22 12:00 Pulse 70 03/16/22 12:00 Resp 17 03/16/22 12:00 BP 105/67 03/16/22 12:00 Pulse Ox 95 03/16/22 12:00 FiO2 21 03/15/22 19:10 Intake & Output 03/15/22 03/16/22 03/16/22 18:59 06:59 18:59 Intake Total 236 120 Output Total 1600 750 250 Balance -1364 -750 -130 Intake: Oral 236 120 Output: Urine 1600 750 250 Other: Voiding Method Indwelling Catheter Indwelling Catheter Indwelling Catheter - Labs CBC & Chem 7: 03/16/22 07:11 03/15/22 07:51 Labs: Abnormal Lab Results - Last 24 Hours (Table) 03/15/22 03/16/22 Range/Units 07:51 07:11 RBC 2.77 L (3.80-5.40) m/uL Hgb 8.3 L (11.4-16.0) gm/dL Hct 25.3 L (34.0-46.0) % RDW 16.2 H (11.5-15.5) % Plt Count 125 L (150-450) k/uL Lymphocytes # 0.5 L (1.0-4.8) k/uL Vitamin B12 156.0 L (200.0-944.0) pg/mL
--- NOTE | 2022-03-16 18:27 | P.PN ---
Subjective Progress Note Date: 03/16/22 Principal diagnosis: AMS, coagulopathy In f/u today pt cont to be confused, she denies pain, she is able to feed herself. Denied pain. Objective - Vital Signs Vital signs: Vital Signs Temp 98 F 03/16/22 16:00 Pulse 68 03/16/22 16:00 Resp 16 03/16/22 16:00 BP 127/59 03/16/22 16:00 Pulse Ox 94 L 03/16/22 16:00 FiO2 21 03/15/22 19:10 Intake & Output 03/15/22 03/16/22 03/16/22 18:59 06:59 18:59 Intake Total 236 120 Output Total 6139 605 5115 Balance -4820 -464 -706 Weight 105.5 kg Intake: Oral 236 120 Output: Urine 8029 768 1275 Other: Voiding Method Indwelling Catheter Indwelling Catheter Indwelling Catheter - Constitutional General appearance: Present: cooperative, no acute distress, obese - EENT Eyes: Present: anicteric sclerae, EOMI ENT: Present: hearing grossly normal - Respiratory Details: resp even and unlabored - Musculoskeletal Musculoskeletal: Present: generalized weakness - Labs CBC & Chem 7: 03/16/22 07:11 03/15/22 07:51 Labs: Abnormal Lab Results - Last 24 Hours (Table) 03/15/22 03/15/22 03/16/22 Range/Units 07:51 07:51 07:11 RBC 2.77 L (3.80-5.40) m/uL Hgb 8.3 L (11.4-16.0) gm/dL Hct 25.3 L (34.0-46.0) % RDW 16.2 H (11.5-15.5) % Plt Count 125 L (150-450) k/uL Lymphocytes # 0.5 L (1.0-4.8) k/uL Vitamin B12 156.0 L (200.0-944.0) pg/mL RBC Folate 1,543 H (280 - 791) ng/mL Assessment and Plan (1) Coagulopathy Current Visit: Yes Status: Acute Priority: High Code(s): D68.9 - COAGULATION DEFECT, UNSPECIFIED SNOMED Code(s): 32285625 Plan: Coagulopathy has been reversed. I have not had the opportunity to discuss case with any providers to determine if there is any contraindication to discontinuing anticoagulation. Not certain if pt PE was provoked or unprovoked, not sure if pt had PE and DVT, or if pt has had more than one provoked clot. I see on med review that coumdin is not ordered. We will cont to. Will update chart with more information as known. I have reviewed the case and agree with assessment and plan as stated above. It is unclear whether Ms. Cooper requires therapeutic anticoagulation due to uncertain cirumstances surrounding original PE. Since she's had bleeding complications from coumadin previously in addition to the current admission, consideration for discontinuation of therapeutic anticoagulation should be considered. If she had only 1 VTE episode in the past that was provoked, she should not receive more than 3 months of anticoagulation. This can be extended to 6-12 months for unprovoked VTE, although no definitive evidence has been shown in preventing recurrent VTE with anti-coagulation beyond 3 months. If she does require anticoagulation, DOACs can be considered for easier administration and lower risk of major bleeding.
[2022-03-16] MEDS: CYANOCOBALAMIN 1,000 MCG/ML 1 ML VIAL IM SCH (18:35)
[2022-03-16] MEDS: MORPHINE SULFATE 4 MG/ML SYRINGE IVP PRN (23:01)
[2022-03-17] MEDS: FERROUS SULFATE 325 MG TAB PO SCH ×2 (06:55→16:48)
[2022-03-17] MEDS: LEVOTHYROXINE 75 MCG TAB PO SCH (06:55)
[2022-03-17] MEDS: HYDROcodone/APAP 10-325MG 1 EACH TAB PO PRN ×2 (06:59→18:26)
[2022-03-17] MEDS: FUROSEMIDE 40 MG TAB PO SCH ×2 (08:14→16:48)
[2022-03-17] MEDS: MONTELUKAST 10 MG TAB PO SCH (08:14)
[2022-03-17] MEDS: ENOXAPARIN 40 MG/0.4 ML SYRINGE SQ SCH (08:14)
[2022-03-17] MEDS: PANTOPRAZOLE 40 MG/10 ML VIAL IVP SCH (08:14)
[2022-03-17] MEDS: CYANOCOBALAMIN 1,000 MCG/ML 1 ML VIAL IM SCH (08:15)
[2022-03-17 09:00] LABS: Anisocytosis Slight; Basophils % (A) 0 %; Eosinophils # (A) 0.1 k/uL (0-0.7); Eosinophils % (A) 2 %; HCT 25.9 % (34.0-46.0); HGB 8.6 gm/dL (11.4-16.0); Hypochromasia Slight; Lymphocytes # (A) 0.6 k/uL (1.0-4.8); Lymphocytes % (A) 13 %; MCH 30.6 pg (25.0-35.0); MCHC 33.2 g/dL (31.0-37.0); MCV 92.2 fL (80.0-100.0); Mean Platelet Volume 11.1; Monocytes # (A) 0.3 k/uL (0-1.0); Monocytes % (A) 6 %; Neutrophils # (A) 3.7 k/uL (1.3-7.7); Neutrophils % (A) 78 %; Platelet Count 178 k/uL (150-450); Poikilocytosis Slight; RBC 2.81 m/uL (3.80-5.40); RDW 16.3 % (11.5-15.5); WBC 4.8 k/uL (3.8-10.6)
[2022-03-17 09:23] LABS: Albumin 3.3 g/dL (3.5-5.0); Calcium 8.8 mg/dL (8.4-10.2); Potassium 3.5 mmol/L (3.5-5.1); Total Bilirubin 3.7 mg/dL (0.2-1.3); Total Protein 5.4 g/dL (6.3-8.2)
--- NOTE | 2022-03-17 11:26 | P.PN ---
Subjective Progress Note Date: 03/17/22 CHIEF COMPLAINT: Right thigh intramuscular hematoma HISTORY OF PRESENT ILLNESS: The patient is sitting up in bed comfortably. Pain is controlled. She has swelling in her right leg is about the same. Hemoglobin stable and is trending up to 8.6. Patient seen by hematology regarding anticoagulation due to history of PE and DVT. She is tolerating regular diet. No complaints of abdominal pain. Afebrile. Patient is on Lovenox. Coumadin remains discontinued. Patient seen and examined with Dr. davidson PHYSICAL EXAM: VITAL SIGNS: Reviewed. GENERAL: Well-developed in no acute distress. HEENT: No sclera icterus. Extraocular movements grossly intact. Moist buccal mucosa. Head is atraumatic, normocephalic. ABDOMEN: Soft. Nondistended. Extremities: Right thigh with yellow bruising and swelling and ecchymosis developing medial right thigh. Patient also has a yellowish bruising across the lower pelvis area and medial left thigh ASSESSMENT: 1. Right thigh intramuscular hematoma 2. Chronic abdominal pain PLAN: -No surgical intervention planned -Appreciate hematology evaluation regarding anticoagulation -Patient will go to ECF at discharge Physician Bath Attendant note has been reviewed by physician. Signing provider agrees with the documented findings, assessment, and plan of care. Objective - Vital Signs Vital signs: Vital Signs Temp 98.2 F 03/17/22 08:14 Pulse 72 03/17/22 08:14 Resp 18 03/17/22 08:14 BP 122/74 03/17/22 08:14 Pulse Ox 97 03/17/22 08:14 FiO2 21 03/15/22 19:10 Intake & Output 03/16/22 03/17/22 03/17/22 18:59 06:59 18:59 Intake Total 240 118 Output Total 1025 550 Balance -785 -550 118 Weight 105.5 kg Intake: Oral 240 118 Output: Urine 1025 550 Other: Voiding Method Indwelling Catheter Indwelling Catheter Indwelling Catheter - Labs CBC & Chem 7: 03/17/22 08:00 03/17/22 08:00 Labs: Abnormal Lab Results - Last 24 Hours (Table) 03/15/22 03/16/22 03/17/22 Range/Units 07:51 07:11 08:00 RBC 2.81 L (3.80-5.40) m/uL Hgb 8.6 L (11.4-16.0) gm/dL Hct 25.9 L (34.0-46.0) % RDW 16.3 H (11.5-15.5) % Plt Count 125 L (150-450) k/uL Lymphocytes # 0.5 L 0.6 L (1.0-4.8) k/uL Chloride (98-107) mmol/L Carbon Dioxide (22-30) mmol/L BUN (7-17) mg/dL Creatinine (0.52-1.04) mg/dL Glucose (74-99) mg/dL Total Bilirubin (0.2-1.3) mg/dL Total Protein (6.3-8.2) g/dL Albumin (3.5-5.0) g/dL RBC Folate 1,543 H (280 - 791) ng/mL 03/17/22 Range/Units 08:00 RBC (3.80-5.40) m/uL Hgb (11.4-16.0) gm/dL Hct (34.0-46.0) % RDW (11.5-15.5) % Plt Count (150-450) k/uL Lymphocytes # (1.0-4.8) k/uL Chloride 96 L (98-107) mmol/L Carbon Dioxide 36 H (22-30) mmol/L BUN 23 H (7-17) mg/dL Creatinine 1.06 H (0.52-1.04) mg/dL Glucose 115 H (74-99) mg/dL Total Bilirubin 3.7 H (0.2-1.3) mg/dL Total Protein 5.4 L (6.3-8.2) g/dL Albumin 3.3 L (3.5-5.0) g/dL RBC Folate (280 - 791) ng/mL
[2022-03-18] MEDS: HYDROcodone/APAP 10-325MG 1 EACH TAB PO PRN ×2 (02:11→20:35)
[2022-03-18] MEDS: LEVOTHYROXINE 75 MCG TAB PO SCH (06:24)
[2022-03-18] MEDS: FERROUS SULFATE 325 MG TAB PO SCH ×2 (06:24→17:52)
[2022-03-18] MEDS: MONTELUKAST 10 MG TAB PO SCH (08:00)
[2022-03-18] MEDS: PANTOPRAZOLE 40 MG/10 ML VIAL IVP SCH (08:00)
[2022-03-18] MEDS: FUROSEMIDE 40 MG TAB PO SCH ×2 (08:00→17:53)
[2022-03-18] MEDS: ENOXAPARIN 40 MG/0.4 ML SYRINGE SQ SCH (08:00)
[2022-03-18] MEDS: CYANOCOBALAMIN 1,000 MCG/ML 1 ML VIAL IM SCH (08:01)
--- NOTE | 2022-03-18 13:04 | P.PN ---
Subjective Progress Note Date: 03/18/22 CHIEF COMPLAINT: Right thigh intramuscular hematoma HISTORY OF PRESENT ILLNESS: Patient has no new complaints. Pain is controlled. She has swelling in her right leg is about the same. Hemoglobin stable at 8.6. Patient seen by hematology regarding anticoagulation due to history of PE and DVT. She is tolerating regular diet. No complaints of abdominal pain. Afebrile. Patient is on Lovenox. Coumadin remains discontinued. Patient seen and examined with Dr. davidson PHYSICAL EXAM: VITAL SIGNS: Reviewed. GENERAL: Well-developed in no acute distress. HEENT: No sclera icterus. Extraocular movements grossly intact. Moist buccal mucosa. Head is atraumatic, normocephalic. ABDOMEN: Soft. Nondistended. Extremities: Right thigh with yellow bruising and swelling and ecchymosis developing medial right thigh. Patient also has a yellowish bruising across the lower pelvis area and medial left thigh ASSESSMENT: 1. Right thigh intramuscular hematoma 2. Chronic abdominal pain PLAN: -Patient can be discharged from surgical standpoint when medically cleared -Surgical service will sign off. Please call with any questions or concerns -No surgical intervention planned -Appreciate hematology evaluation regarding anticoagulation -Patient will go to ECF at discharge Physician State [employer] Deputy Director note has been reviewed by physician. Signing provider agrees with the documented findings, assessment, and plan of care. Objective - Vital Signs Vital signs: Vital Signs Temp 98.3 F 03/18/22 11:58 Pulse 77 03/18/22 11:58 Resp 18 03/18/22 11:58 BP 101/66 03/18/22 11:58 Pulse Ox 96 03/18/22 11:58 FiO2 21 03/15/22 19:10 Intake & Output 03/17/22 03/18/22 03/18/22 18:59 06:59 18:59 Intake Total 118 Output Total 1170 950 Balance -1052 -950 Weight 105.5 kg Intake: Oral 118 Output: Urine 1170 950 Other: Voiding Method Indwelling Catheter Indwelling Catheter Indwelling Catheter - Labs CBC & Chem 7: 03/17/22 08:00 03/17/22 08:00
--- NOTE | 2022-03-18 14:19 | P.PN ---
Subjective Progress Note Date: 03/17/22 This is a 66-year-old female patient who presented to the hospital on 03/12/2022 with altered mental status changes. Patient is well-known to my service with a past medical history of MS, hypothyroidism CVA, fibromyalgia, osteoarthritis, CVA, pulmonary embolism and sleep apnea. According to records patient was found to have increased confusion per . patient was found to be anemic with a hemoglobin of 5.9 with a right thigh swelling and abdominal pain. CT of abdomen and pelvis completed showing extensive soft tissue swelling along the anterior lower pelvis anterior. And right groin. Surgical services were consulted. patietn transfused with 2 units of PRBCs and and 1 unit of FFP. Coumadin currently on hold. Surgical, orthopedic services and hematology services were consulted. No surgical plans at this time. Hemoglobin improving to 7.9. On 03/14/2022 patient is alert resting comfortably in bed. Patient still complaining of generalized pain. Hemoglobin 7.9 platelets 74. Coumadin remains on hold. At this time vascular surgery, orthopedic services, surgical services, neurology and hematology services are following. Per records no plans for surgical intervention at this time no need for IVC filter per hematology services. Surgical vascular surgery have signed off. Patient denies chest pain or shortness breath. Patient denies nausea vomiting or diarrhea. Patient denies any urinary burning frequency 03/15/2022 patient is resting comfortably in bed. Hemoglobin 8.0. Awaiting further oncology recommendations regards to anticoagulation. Patient has been started on Lovenox 40 subcu daily. At this time patient denies chest pain or shortness breath. Patient denies nausea vomiting or diarrhea. Patient denies any urinary burning or frequency 03/16/2022 patient resting comfortably in bed alert. Hemoglobin any 8.3. Patient remains on Lovenox Coumadin on hold. Per oncology note and sitting risk versus benefit of Coumadin further recommendations to come per oncology services. At this time patient denies chest pain or shortness breath. Patient denies nausea vomiting or diarrhea. Patient denies any urinary burning or frequency 03/16/2022 patient resting comfortably in bed alert. Hemoglobin any 8.3. Patient remains on Lovenox Coumadin on hold. At this time patient denies chest pain or shortness breath. Patient denies nausea vomiting or diarrhea. Patient denies any urinary burning or frequency, at this time awaiting hematology recommendation in regard to resuming Coumadin treatment, patient had pulmonary embolism prior to 2013, no further information is available at this time. Objective - Vital Signs Vital signs: Vital Signs Temp 98.0 F 03/17/22 11:47 Pulse 63 03/17/22 11:47 Resp 18 03/17/22 14:00 BP 119/60 03/17/22 11:47 Pulse Ox 100 03/17/22 11:47 FiO2 21 03/15/22 19:10 Intake & Output 03/16/22 03/17/22 03/17/22 18:59 06:59 18:59 Intake Total 240 118 Output Total 1025 550 900 Balance -785 -550 -782 Weight 105.5 kg Intake: Oral 240 118 Output: Urine 1025 550 900 Other: Voiding Method Indwelling Catheter Indwelling Catheter Indwelling Catheter - Exam Head normocephalic Neck supple Lungs clear to auscultation bilaterally no wheezing or crackles Heart regular rate and rhythm S1-S2, no rub or gallop Abdomen is soft nontender nondistended positive bowel sounds no hepatosplenomegaly Extremities no edema Neuro alert and orientated to 3. Expressive aphasia - Labs CBC & Chem 7: 03/17/22 08:00 03/17/22 08:00 Labs: Abnormal Lab Results - Last 24 Hours (Table) 03/17/22 03/17/22 Range/Units 08:00 08:00 RBC 2.81 L (3.80-5.40) m/uL Hgb 8.6 L (11.4-16.0) gm/dL Hct 25.9 L (34.0-46.0) % RDW 16.3 H (11.5-15.5) % Lymphocytes # 0.6 L (1.0-4.8) k/uL Chloride 96 L (98-107) mmol/L Carbon Dioxide 36 H (22-30) mmol/L BUN 23 H (7-17) mg/dL Creatinine 1.06 H (0.52-1.04) mg/dL Glucose 115 H (74-99) mg/dL Total Bilirubin 3.7 H (0.2-1.3) mg/dL Total Protein 5.4 L (6.3-8.2) g/dL Albumin 3.3 L (3.5-5.0) g/dL Assessment and Plan Assessment: 1. Anemia with supratherapeutic INR with left lower extremity swelling. Orthopedic services were consulted [facility] [place]. Surgical services also consulted for surgical intervention at this time vascular surgery following. 2. Coagulopathy secondary to Coumadin 3. Altered mental status changes 4. History of pulmonary embolism maintained on Coumadin 5. Chronic kidney disease stage III 6. History history of multiple sclerosis 7. History of fibromyalgia 8. History of osteoarthritis 9. History of CVA At this time patient remains on telemetry floor. Hematology, Vascular surgery, orthopedic surgery, general surgery and neurology services following. Coumadin on hold Repeat labs ordered Hematology services following and will further assess need for anticoagulation risk versus benefit Repeat labs ordered for a.m.
--- NOTE | 2022-03-18 14:22 | P.PN ---
Subjective Progress Note Date: 03/18/22 This is a 66-year-old female patient who presented to the hospital on 03/12/2022 with altered mental status changes. Patient is well-known to my service with a past medical history of MS, hypothyroidism CVA, fibromyalgia, osteoarthritis, CVA, pulmonary embolism and sleep apnea. According to records patient was found to have increased confusion per . patient was found to be anemic with a hemoglobin of 5.9 with a right thigh swelling and abdominal pain. CT of abdomen and pelvis completed showing extensive soft tissue swelling along the anterior lower pelvis anterior. And right groin. Surgical services were consulted. patietn transfused with 2 units of PRBCs and and 1 unit of FFP. Coumadin currently on hold. Surgical, orthopedic services and hematology services were consulted. No surgical plans at this time. Hemoglobin improving to 7.9. On 03/14/2022 patient is alert resting comfortably in bed. Patient still complaining of generalized pain. Hemoglobin 7.9 platelets 74. Coumadin remains on hold. At this time vascular surgery, orthopedic services, surgical services, neurology and hematology services are following. Per records no plans for surgical intervention at this time no need for IVC filter per hematology services. Surgical vascular surgery have signed off. Patient denies chest pain or shortness breath. Patient denies nausea vomiting or diarrhea. Patient denies any urinary burning frequency 03/15/2022 patient is resting comfortably in bed. Hemoglobin 8.0. Awaiting further oncology recommendations regards to anticoagulation. Patient has been started on Lovenox 40 subcu daily. At this time patient denies chest pain or shortness breath. Patient denies nausea vomiting or diarrhea. Patient denies any urinary burning or frequency 03/16/2022 patient resting comfortably in bed alert. Hemoglobin any 8.3. Patient remains on Lovenox Coumadin on hold. Per oncology note and sitting risk versus benefit of Coumadin further recommendations to come per oncology services. At this time patient denies chest pain or shortness breath. Patient denies nausea vomiting or diarrhea. Patient denies any urinary burning or frequency 03/17/2022 patient resting comfortably in bed alert. Hemoglobin any 8.3. Patient remains on Lovenox Coumadin on hold. At this time patient denies chest pain or shortness breath. Patient denies nausea vomiting or diarrhea. Patient denies any urinary burning or frequency, at this time awaiting hematology recommendation in regard to resuming Coumadin treatment, patient had pulmonary embolism prior to 2013, no further information is available at this time. On 03/18/2022 patient was seen and examined on the medical floor she is alert and oriented 3 in no apparent distress, review of old records revealed evidence of bilateral pulmonary embolism, patient has very minimal physical activity and is at high risk for DVT and PE, at this time will resume Coumadin will monitor very closely as outpatient. Patient has very poor oral intake, at this time will add Megace 400 mg by mouth daily Will consult physical therapy and occupational therapy, will consult Dr. Giles for possible rehab admission Objective - Vital Signs Vital signs: Vital Signs Temp 98.3 F 03/18/22 11:58 Pulse 77 03/18/22 11:58 Resp 18 03/18/22 11:58 BP 101/66 03/18/22 11:58 Pulse Ox 96 03/18/22 11:58 FiO2 21 03/15/22 19:10 Intake & Output 03/17/22 03/18/22 03/18/22 18:59 06:59 18:59 Intake Total 118 Output Total 1170 950 Balance -1052 -950 Weight 105.5 kg Intake: Oral 118 Output: Urine 1170 950 Other: Voiding Method Indwelling Catheter Indwelling Catheter Indwelling Catheter - Exam Head normocephalic Neck supple Lungs clear to auscultation bilaterally no wheezing or crackles Heart regular rate and rhythm S1-S2, no rub or gallop Abdomen is soft nontender nondistended positive bowel sounds no hepatosplenomegaly Extremities no edema Neuro alert and orientated to 3. Expressive aphasia - Labs CBC & Chem 7: 03/17/22 08:00 03/17/22 08:00 Assessment and Plan Assessment: 1. Anemia with supratherapeutic INR with left lower extremity swelling. Orthopedic services were consulted [facility] [place]. Surgical services also consulted for surgical intervention at this time vascular surgery following. 2. Coagulopathy secondary to Coumadin 3. Altered mental status changes 4. History of pulmonary embolism maintained on Coumadin 5. Chronic kidney disease stage III 6. History history of multiple sclerosis 7. History of fibromyalgia 8. History of osteoarthritis 9. History of CVA At this time patient remains on telemetry floor. Hematology, Vascular surgery, orthopedic surgery, general surgery and neurology services following. Coumadin on hold Repeat labs ordered Hematology services following and will further assess need for anticoagulation risk versus benefit Repeat labs ordered for a.m.
[2022-03-18] MEDS: MEGESTROL 400 MG/10 ML CUP PO SCH (16:54)
[2022-03-18] MEDS ORDERED: WARFARIN 10 MG TAB PO ONE (18:00)
[2022-03-19] MEDS: FERROUS SULFATE 325 MG TAB PO SCH ×2 (06:31→17:24)
[2022-03-19] MEDS: LEVOTHYROXINE 75 MCG TAB PO SCH (06:31)
[2022-03-19 08:24] LABS: Anisocytosis Slight; Basophils % (A) 0 %; Eosinophils # (A) 0.1 k/uL (0-0.7); Eosinophils % (A) 2 %; HCT 29.7 % (34.0-46.0); HGB 9.6 gm/dL (11.4-16.0); Hypochromasia Moderate; Lymphocytes # (A) 0.7 k/uL (1.0-4.8); Lymphocytes % (A) 12 %; MCH 29.8 pg (25.0-35.0); MCHC 32.3 g/dL (31.0-37.0); MCV 92.3 fL (80.0-100.0); Mean Platelet Volume 9.7; Monocytes # (A) 0.3 k/uL (0-1.0); Monocytes % (A) 6 %; Neutrophils # (A) 4.3 k/uL (1.3-7.7); Neutrophils % (A) 77 %; Platelet Count 251 k/uL (150-450); Poikilocytosis Slight; RBC 3.21 m/uL (3.80-5.40); RDW 16.2 % (11.5-15.5); WBC 5.6 k/uL (3.8-10.6)
[2022-03-19 08:26] LABS: Prothrombin Time 10.9 sec (9.0-12.0)
[2022-03-19 08:57] LABS: Albumin 3.4 g/dL (3.5-5.0); Potassium 3.3 mmol/L (3.5-5.1); Total Protein 5.7 g/dL (6.3-8.2)
[2022-03-19] MEDS: MEGESTROL 400 MG/10 ML CUP PO SCH (09:21)
[2022-03-19] MEDS: ENOXAPARIN 40 MG/0.4 ML SYRINGE SQ SCH (09:21)
[2022-03-19] MEDS: MONTELUKAST 10 MG TAB PO SCH (09:22)
[2022-03-19] MEDS: PANTOPRAZOLE 40 MG/10 ML VIAL IVP SCH (09:22)
[2022-03-19] MEDS: CYANOCOBALAMIN 1,000 MCG/ML 1 ML VIAL IM SCH (09:22)
[2022-03-19] MEDS: FUROSEMIDE 40 MG TAB PO SCH ×2 (09:22→17:24)
--- NOTE | 2022-03-19 09:26 | P.PN ---
Subjective Progress Note Date: 03/19/22 This is a 66-year-old female patient who presented to the hospital on 03/12/2022 with altered mental status changes. Patient is well-known to my service with a past medical history of MS, hypothyroidism CVA, fibromyalgia, osteoarthritis, CVA, pulmonary embolism and sleep apnea. According to records patient was found to have increased confusion per . patient was found to be anemic with a hemoglobin of 5.9 with a right thigh swelling and abdominal pain. CT of abdomen and pelvis completed showing extensive soft tissue swelling along the anterior lower pelvis anterior. And right groin. Surgical services were consulted. patietn transfused with 2 units of PRBCs and and 1 unit of FFP. Coumadin currently on hold. Surgical, orthopedic services and hematology services were consulted. No surgical plans at this time. Hemoglobin improving to 7.9. On 03/14/2022 patient is alert resting comfortably in bed. Patient still complaining of generalized pain. Hemoglobin 7.9 platelets 74. Coumadin remains on hold. At this time vascular surgery, orthopedic services, surgical services, neurology and hematology services are following. Per records no plans for surgical intervention at this time no need for IVC filter per hematology services. Surgical vascular surgery have signed off. Patient denies chest pain or shortness breath. Patient denies nausea vomiting or diarrhea. Patient denies any urinary burning frequency 03/15/2022 patient is resting comfortably in bed. Hemoglobin 8.0. Awaiting further oncology recommendations regards to anticoagulation. Patient has been started on Lovenox 40 subcu daily. At this time patient denies chest pain or shortness breath. Patient denies nausea vomiting or diarrhea. Patient denies any urinary burning or frequency 03/16/2022 patient resting comfortably in bed alert. Hemoglobin any 8.3. Patient remains on Lovenox Coumadin on hold. Per oncology note and sitting risk versus benefit of Coumadin further recommendations to come per oncology services. At this time patient denies chest pain or shortness breath. Patient denies nausea vomiting or diarrhea. Patient denies any urinary burning or frequency 03/17/2022 patient resting comfortably in bed alert. Hemoglobin any 8.3. Patient remains on Lovenox Coumadin on hold. At this time patient denies chest pain or shortness breath. Patient denies nausea vomiting or diarrhea. Patient denies any urinary burning or frequency, at this time awaiting hematology recommendation in regard to resuming Coumadin treatment, patient had pulmonary embolism prior to 2013, no further information is available at this time. On 03/18/2022 patient was seen and examined on the medical floor she is alert and oriented 3 in no apparent distress, review of old records revealed evidence of bilateral pulmonary embolism, patient has very minimal physical activity and is at high risk for DVT and PE, at this time will resume Coumadin will monitor very closely as outpatient. Patient has very poor oral intake, at this time will add Megace 400 mg by mouth daily Will consult physical therapy and occupational therapy, will consult Dr. Giles for possible rehab admission On 03/19/2022 patient is alert and oriented 3. Awaiting Dr. Giles consult for possible inpatient rehab discharge. Patient received 10 mg of Coumadin last night. INR today 1.0. Hemoglobin 9.6 pharmacy to dose Coumadin. Patient denies chest pain or shortness breath. Patient denies nausea vomiting or diarrhea. Patient denies any urinary burning or frequency Objective - Vital Signs Vital signs: Vital Signs Temp 98.7 F 03/19/22 04:00 Pulse 70 03/19/22 04:00 Resp 17 03/19/22 04:00 BP 118/57 03/19/22 04:00 Pulse Ox 98 03/19/22 04:00 FiO2 21 03/15/22 19:10 Intake & Output 03/18/22 03/19/22 03/19/22 18:59 06:59 18:59 Intake Total 120 360 0 Output Total 1600 Balance 120 -1240 0 Weight 105.5 kg 100 kg Intake: Oral 120 360 0 Output: Urine 1600 Other: Voiding Method Indwelling Catheter Indwelling Catheter - Exam Head normocephalic Neck supple Lungs clear to auscultation bilaterally no wheezing or crackles Heart regular rate and rhythm S1-S2, no rub or gallop Abdomen is soft nontender nondistended positive bowel sounds no hepat osplenomegaly Extremities no edema Neuro alert and orientated to 3. Expressive aphasia - Labs CBC & Chem 7: 03/19/22 07:36 03/19/22 07:36 Labs: Abnormal Lab Results - Last 24 Hours (Table) 03/19/22 03/19/22 Range/Units 07:36 07:36 RBC 3.21 L (3.80-5.40) m/uL Hgb 9.6 L (11.4-16.0) gm/dL Hct 29.7 L (34.0-46.0) % RDW 16.2 H (11.5-15.5) % Lymphocytes # 0.7 L (1.0-4.8) k/uL Potassium 3.3 L (3.5-5.1) mmol/L Chloride 96 L (98-107) mmol/L Carbon Dioxide 34 H (22-30) mmol/L BUN 23 H (7-17) mg/dL Creatinine 1.07 H (0.52-1.04) mg/dL Glucose 116 H (74-99) mg/dL Total Bilirubin 3.0 H (0.2-1.3) mg/dL Total Protein 5.7 L (6.3-8.2) g/dL Albumin 3.4 L (3.5-5.0) g/dL Assessment and Plan Assessment: 1. Anemia with supratherapeutic INR with left lower extremity swelling. Orthopedic services were consulted department syndrome [facility]. Surgical services also consulted for surgical intervention at this time vascular surgery following. 2. Coagulopathy secondary to Coumadin 3. Altered mental status changes 4. History of pulmonary embolism maintained on Coumadin 5. Chronic kidney disease stage III 6. History history of multiple sclerosis 7. History of fibromyalgia 8. History of osteoarthritis 9. History of CVA At this time patient remains on telemetry floor. Hematology, Vascular surgery, orthopedic surgery, general surgery and neurology services following. Coumadin resumed Repeat labs ordered for a.m. Discharge planning in place Dr. Abdul consulted for possible inpatient rehab
[2022-03-19] MEDS: HYDROcodone/APAP 10-325MG 1 EACH TAB PO PRN ×2 (14:22→20:29)
[2022-03-19] MEDS ORDERED: WARFARIN 10 MG TAB PO ONE (18:00)
[2022-03-19] MEDS: POTASSIUM CHLORIDE ER 20 MEQ TAB.ER PO SCH ×2 (20:29→23:06)
[2022-03-20] MEDS: HYDROcodone/APAP 10-325MG 1 EACH TAB PO PRN ×3 (01:33→19:53)
[2022-03-20] MEDS: FERROUS SULFATE 325 MG TAB PO SCH ×2 (06:15→17:31)
[2022-03-20] MEDS: LEVOTHYROXINE 75 MCG TAB PO SCH (06:15)
[2022-03-20] MEDS: MORPHINE SULFATE 4 MG/ML SYRINGE IVP PRN ×2 (06:24→14:20)
[2022-03-20 06:52] LABS: Basophils % (A) 0 %; Eosinophils # (A) 0.1 k/uL (0-0.7); Eosinophils % (A) 3 %; HCT 32.1 % (34.0-46.0); HGB 10.2 gm/dL (11.4-16.0); Hypochromasia Moderate; Lymphocytes # (A) 0.8 k/uL (1.0-4.8); Lymphocytes % (A) 14 %; MCH 29.2 pg (25.0-35.0); MCHC 31.8 g/dL (31.0-37.0); MCV 91.8 fL (80.0-100.0); Mean Platelet Volume 9.3; Monocytes # (A) 0.3 k/uL (0-1.0); Monocytes % (A) 6 %; Neutrophils # (A) 4.1 k/uL (1.3-7.7); Neutrophils % (A) 76 %; Platelet Count 254 k/uL (150-450); Poikilocytosis Slight; RDW 15.9 % (11.5-15.5); WBC 5.5 k/uL (3.8-10.6)
[2022-03-20 07:02] LABS: Albumin 3.8 g/dL (3.5-5.0); Calcium 9.3 mg/dL (8.4-10.2); Potassium 3.4 mmol/L (3.5-5.1); Total Bilirubin 3.3 mg/dL (0.2-1.3); Total Protein 6.3 g/dL (6.3-8.2)
[2022-03-20 07:09] LABS: INR 1.3 (<1.2); Prothrombin Time 13.3 sec (9.0-12.0)
[2022-03-20] MEDS: FUROSEMIDE 40 MG TAB PO SCH ×2 (09:44→17:31)
[2022-03-20] MEDS: ENOXAPARIN 40 MG/0.4 ML SYRINGE SQ SCH (09:44)
[2022-03-20] MEDS: MONTELUKAST 10 MG TAB PO SCH (09:44)
[2022-03-20] MEDS: POTASSIUM CHLORIDE ER 20 MEQ TAB.ER PO SCH ×2 (09:44→13:27)
[2022-03-20] MEDS: CYANOCOBALAMIN 1,000 MCG/ML 1 ML VIAL IM SCH (09:45)
[2022-03-20] MEDS: PANTOPRAZOLE 40 MG/10 ML VIAL IVP SCH (09:45)
[2022-03-20] MEDS: MEGESTROL 400 MG/10 ML CUP PO SCH (09:45)
--- NOTE | 2022-03-20 12:27 | P.PN ---
Subjective Progress Note Date: 03/20/22 This is a 66-year-old female patient who presented to the hospital on 03/12/2022 with altered mental status changes. Patient is well-known to my service with a past medical history of MS, hypothyroidism CVA, fibromyalgia, osteoarthritis, CVA, pulmonary embolism and sleep apnea. According to records patient was found to have increased confusion per . patient was found to be anemic with a hemoglobin of 5.9 with a right thigh swelling and abdominal pain. CT of abdomen and pelvis completed showing extensive soft tissue swelling along the anterior lower pelvis anterior. And right groin. Surgical services were consulted. patietn transfused with 2 units of PRBCs and and 1 unit of FFP. Coumadin currently on hold. Surgical, orthopedic services and hematology services were consulted. No surgical plans at this time. Hemoglobin improving to 7.9. On 03/14/2022 patient is alert resting comfortably in bed. Patient still complaining of generalized pain. Hemoglobin 7.9 platelets 74. Coumadin remains on hold. At this time vascular surgery, orthopedic services, surgical services, neurology and hematology services are following. Per records no plans for surgical intervention at this time no need for IVC filter per hematology services. Surgical vascular surgery have signed off. Patient denies chest pain or shortness breath. Patient denies nausea vomiting or diarrhea. Patient denies any urinary burning frequency 03/15/2022 patient is resting comfortably in bed. Hemoglobin 8.0. Awaiting further oncology recommendations regards to anticoagulation. Patient has been started on Lovenox 40 subcu daily. At this time patient denies chest pain or shortness breath. Patient denies nausea vomiting or diarrhea. Patient denies any urinary burning or frequency 03/16/2022 patient resting comfortably in bed alert. Hemoglobin any 8.3. Patient remains on Lovenox Coumadin on hold. Per oncology note and sitting risk versus benefit of Coumadin further recommendations to come per oncology services. At this time patient denies chest pain or shortness breath. Patient denies nausea vomiting or diarrhea. Patient denies any urinary burning or frequency 03/17/2022 patient resting comfortably in bed alert. Hemoglobin any 8.3. Patient remains on Lovenox Coumadin on hold. At this time patient denies chest pain or shortness breath. Patient denies nausea vomiting or diarrhea. Patient denies any urinary burning or frequency, at this time awaiting hematology recommendation in regard to resuming Coumadin treatment, patient had pulmonary embolism prior to 2013, no further information is available at this time. On 03/18/2022 patient was seen and examined on the medical floor she is alert and oriented 3 in no apparent distress, review of old records revealed evidence of bilateral pulmonary embolism, patient has very minimal physical activity and is at high risk for DVT and PE, at this time will resume Coumadin will monitor very closely as outpatient. Patient has very poor oral intake, at this time will add Megace 400 mg by mouth daily Will consult physical therapy and occupational therapy, will consult Dr. Giles for possible rehab admission On 03/19/2022 patient is alert and oriented 3. Awaiting Dr. Giles consult for possible inpatient rehab discharge. Patient received 10 mg of Coumadin last night. INR today 1.0. Hemoglobin 9.6 pharmacy to dose Coumadin. Patient denies chest pain or shortness breath. Patient denies nausea vomiting or diarrhea. Patient denies any urinary burning or frequency On 03/20/2022 patient was seen and examined the telemetry floor she is alert and oriented 3 in no apparent distress, there is no fever or chills no headache or dizziness no chest pain no shortness of breath no cough no nausea or vomiting no abdominal pain no diarrhea and no urinary symptoms, is more alert and is having more oral intake, PT and OT consult requested, will consult Dr. Giles for possible rehab admission, continue dosing Coumadin per pharmacy Objective - Vital Signs Vital signs: Vital Signs Temp 98.7 F 03/20/22 08:00 Pulse 62 03/20/22 08:00 Resp 16 03/20/22 08:00 BP 118/69 03/20/22 08:00 Pulse Ox 98 03/20/22 08:00 FiO2 21 03/15/22 19:10 Intake & Output 03/19/22 03/20/22 03/20/22 18:59 06:59 18:59 Intake Total 120 118 Output Total 650 950 Balance -530 -950 118 Weight 101 kg Intake: Oral 120 118 Output: Urine 650 950 Other: Voiding Method Indwelling Catheter Indwelling Catheter Indwelling Catheter - Exam Head normocephalic Neck supple Lungs clear to auscultation bilaterally no wheezing or crackles Heart regular rate and rhythm S1-S2, no rub or gallop Abdomen is soft nontender nondistended positive bowel sounds no hepatosplenomegaly Extremities no edema Neuro alert and orientated to 3. Expressive aphasia - Labs CBC & Chem 7: 03/20/22 06:24 03/20/22 06:24 Labs: Abnormal Lab Results - Last 24 Hours (Table) 03/20/22 03/20/22 03/20/22 Range/Units 06:24 06:24 06:24 RBC 3.50 L (3.80-5.40) m/uL Hgb 10.2 L (11.4-16.0) gm/dL Hct 32.1 L (34.0-46.0) % RDW 15.9 H (11.5-15.5) % Lymphocytes # 0.8 L (1.0-4.8) k/uL PT 13.3 H (9.0-12.0) sec INR 1.3 H (<1.2) Potassium 3.4 L (3.5-5.1) mmol/L Chloride 97 L (98-107) mmol/L BUN 22 H (7-17) mg/dL Glucose 108 H (74-99) mg/dL Total Bilirubin 3.3 H (0.2-1.3) mg/dL Assessment and Plan Assessment: 1. Anemia with supratherapeutic INR with left lower extremity swelling. Orthopedic services were consulted department syndrome [facility]. Surgical services also consulted for surgical intervention at this time vascular surgery following. 2. Coagulopathy secondary to Coumadin 3. Altered mental status changes 4. History of pulmonary embolism maintained on Coumadin 5. Chronic kidney disease stage III 6. History history of multiple sclerosis 7. History of fibromyalgia 8. History of osteoarthritis 9. History of CVA At this time patient remains on telemetry floor. Hematology, Vascular surgery, orthopedic surgery, general surgery and neurology services following. Coumadin resumed Repeat labs ordered for a.m. Discharge planning in place Dr. Abdul consulted for possible inpatient rehab
[2022-03-20] MEDS: GENTAMICIN 0.3% OPHTH DROPS 5 ML BTL LEFT EYE SCH ×4 (13:43→22:56)
[2022-03-20] MEDS ORDERED: WARFARIN 7.5 MG TAB PO ONE (18:00)
[2022-03-21] MEDS: HYDROcodone/APAP 10-325MG 1 EACH TAB PO PRN ×3 (02:29→21:18)
[2022-03-21] MEDS: GENTAMICIN 0.3% OPHTH DROPS 5 ML BTL LEFT EYE SCH ×6 (05:04→23:31)
[2022-03-21] MEDS: LEVOTHYROXINE 75 MCG TAB PO SCH (05:04)
[2022-03-21] MEDS: FERROUS SULFATE 325 MG TAB PO SCH ×2 (05:04→16:16)
--- NOTE | 2022-03-21 05:42 | P.CONS ---
History of Present Illness - Chief Complaint Encephalopathy - History of Present Illness I had the opportunity to see patient for inpatient rehab consultation with regard to confusion, encephalopathy. Patient admitted to [facility] March with mental status change. Found to have fentanyl patch. Seen by hematology for bicytopenia and coagulopathy. Seen by Dr. Winn for hemarthrosis right knee. Seen by Dr. Hayes Sampson for surgical evaluation, no surgery. Seen by neurology, Dr. Teixeira who notes history of MS, aphasia and diagnosed encephalopathy. Seen by Dr. Vasques who doesn't see surgical need either. Diagnostic tests head CT with right MCA encephalomalacia that is old and stable. Right femur x-ray, chest x-ray abdominal x-ray all negative or no active disease. Right hip x-ray with osteophytic change. Abdominal CT with pancreatic atrophy, right renal cyst, cholecystectomy and bilateral infrarenal abdominal aortic calcifications. Lower extremity ultrasound done. CT angiogram demonstrates likely intramuscular right upper thigh hematoma. Seen by therapies. PT reports much pain and able to perform active assist range of motion only. OT reports supervision for feeding, minimal assistance for grooming, moderate assistance upper dressing, total assistance for lower dressi ng and bathing. Unable to assess toileting with transfers. Speech therapy notes confused. Swallow with dysphagia level III, chopped. Previous functional history as elicited from patient: 66-year-old right-handed white female who is lives in one form with . does cooking, laundry, driving. Patient describes independent with sponge bath. Patient was in inpatient rehab earlier this year. Review of Systems Review of systems: ENT: Denies sneezes or discharge. Eyes: Denies discharge or photophobia. Cardiac: Denies chest pain or palpitation. Pulmonary: Denies cough or shortness of breath. Breast: Denies discharge or lumps. Gastrointestinal: Denies nausea, emesis, constipation, diarrhea. Genitourinary: Denies discharge or frequency. Musculoskeletal: Right anterior thigh discomfort. Neurologic: Confusion and general weakness. Did not know exactly how old she was. Endocrine: Denies shakes or sweats. Oncology: Denies cancers. Dermatologic: Denies rash, itching, pruritus. ALLERGY/immunology: Denies sneezes, rashes. Past Medical History Past Medical History: Chest Pain / Angina, CVA/TIA, Fibromyalgia, Musculoskeletal Disorder, Neurologic Disorder, Osteoarthritis (OA), Pulmonary Embolus (PE), Sleep Apnea/CPAP/BIPAP, Thyroid Disorder Additional Past Medical History / Comment(s): MULTIPLE SCLEROSIS, HX OF CVA 2006 WITH R SIDED WEAKNESS AND DYSPHASIA-MUCH IMPROVED, MIGRAINES, SLEEP APNEA(HAS C- PAP MACHINE BUT DOES NOT USE) ABD HERNIA,CHRONIC PAIN ESPECIALLY ON R SIDE OF BODY AND LOW BACK . PAINFUL FOR HER TO LIE FLAT. HX OF NOSEBLEED JUL 2014 AND RECEIVED PLASMA TRANSFUSION. takes pills with applesauce. 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 MDRO Source:: URINE Past Surgical History: Appendectomy, Cholecystectomy, Hysterectomy Additional Past Surgical History / Comment(s): Incisional hernia repair, laparoscopic lysis of adhesions in 1987, ganglion cyst removal of the left wrist, patent foramen ovale patch in 2006, RF ablation for back pain. Past Anesthesia/Blood Transfusion Reactions: No Reported Reaction Past Psychological History: Depression Additional Psychological History / Comment(s): CELEXA. PT HAS DIFFICULTY W/SPEECH BUT IS MUCH IMPROVED. HAS TO LOOK AT DIETARY MENU TO ORDER CAN'T DO IT BY PHONE. Pt resides with her spouse. She uses a cane to ambulate. She also has a walker. Spouse drives her to appointments. Spouse assists her with some ADLs when needed. Smoking Status: Never smoker Past Alcohol Use History: None Reported Past Drug Use History: None Reported Additional Drug Use History / Comment(s): Lives at home with her requires some assistance with ADLs at times - Past Family History Mother Family Medical History: Hypertension Additional Family Medical History / Comment(s): osteoporosis Father Family Medical History: Dementia, Diabetes Mellitus Medications and Allergies Home Medications Medication Instructions Recorded Confirmed Type Baclofen [Lioresal] 10 mg PO DAILY 11/08/13 03/10/22 History Furosemide [Lasix] 40 mg PO BID 11/08/13 03/10/22 History Montelukast [Singulair] 10 mg PO DAILY 11/08/13 03/10/22 History Pantoprazole Sodium [Protonix] 40 mg PO DAILY 11/08/13 03/10/22 History Potassium Chloride 20 meq PO BID 11/08/13 03/10/22 History Methylphenidate HCl [Ritalin] 20 mg PO BID 11/18/15 03/10/22 History Warfarin [Coumadin] 7.5 mg PO DAILY@1700 12/13/19 03/10/22 History fentaNYL 50MCG/HR PATCH [Duragesic 1 patch TRANSDERM Q72H 05/01/20 03/10/22 History 50MCG/HR] Levothyroxine Sodium [Synthroid] 75 mcg PO DAILY 03/10/22 03/10/22 History Pregabalin [Lyrica] 150 mg PO TID 03/10/22 03/10/22 History oxyCODONE HCL/ACETAMINOPHEN 1 tab PO BID PRN 03/10/22 03/10/22 History [Percocet 5-325 mg] Allergies Allergy/AdvReac Type Severity Reaction Status Date / Time adhesive AdvReac SKIN Verified 03/10/22 17:53 PEELING Physical Exam Vitals: Vital Signs Temp Pulse Pulse Resp BP BP Pulse Ox 03/21/22 03:05 98.0 F 61 18 128/70 97 03/20/22 23:32 97.9 F 60 17 134/73 96 03/20/22 19:42 98.0 F 63 16 125/73 95 03/20/22 16:00 97.7 F 66 18 118/64 97 03/20/22 14:00 66 68 20 03/20/22 12:00 97.7 F 68 20 120/77 98 03/20/22 08:00 98.7 F 62 16 118/69 98 Intake and Output 03/20/22 03/20/22 03/21/22 14:59 22:59 06:59 Intake Total 118 118 Output Total 850 500 Balance 118 -732 -500 Intake: Oral 118 118 Output: Urine 850 500 Other: Voiding Method Indwelling Catheter Indwelling Catheter Indwelling Catheter Skin: Atrophic, intact. General: Overweight build and comfortable appearance. Head: Normocephalic, atraumatic. Eyes: Symmetric. Pupils equal round. Ears: Symmetric. Hearing within normal limits. Mouth: Clear. Neck: Supple. Carotid without bruit. Cardiac: Regular rate and rhythm. Lungs: Clear anteriorly and posteriorly. Abdomen: Soft active nontender. Extremities: Normal tone. Anterior right thigh discomfort. Neurological: Mental status: Alert, cooperative, pleasant. Cranial nerves: Symmetric facial tone and trapezius. Motor: Active movement all 4 limbs but giveaway weakness right hip and leg due to anterior thigh discomfort. Sensation: Intact throughout. DTRs: Symmetric and equal throughout. Mobility: Did not attempt to sit or stand this early a.m. Results CBC & Chem 7: 03/20/22 06:24 03/20/22 06:24 Labs: Abnormal Lab Results - Last 24 Hours (Table) 03/20/22 03/20/22 03/20/22 Range/Units 06:24 06:24 06:24 RBC 3.50 L (3.80-5.40) m/uL Hgb 10.2 L (11.4-16.0) gm/dL Hct 32.1 L (34.0-46.0) % RDW 15.9 H (11.5-15.5) % Lymphocytes # 0.8 L (1.0-4.8) k/uL PT 13.3 H (9.0-12.0) sec INR 1.3 H (<1.2) Potassium 3.4 L (3.5-5.1) mmol/L Chloride 97 L (98-107) mmol/L BUN 22 H (7-17) mg/dL Glucose 108 H (74-99) mg/dL Total Bilirubin 3.3 H (0.2-1.3) mg/dL Assessment and Plan (1) Altered mental status Current Visit: Yes Status: Acute Code(s): R41.82 - ALTERED MENTAL STATUS, UNSPECIFIED SNOMED Code(s): 245551758 (2) Coagulopathy Current Visit: Yes Status: Acute Priority: High Code(s): D68.9 - COAGULATION DEFECT, UNSPECIFIED SNOMED Code(s): 50817239 (3) Cellulitis of right foot Current Visit: No Status: Acute Priority: Medium Code(s): L03.115 - CELLULITIS OF RIGHT LOWER LIMB SNOMED Code(s): 756926356 Plan: Comments and plan: Patient appears to have mental status change with diagnosis encephalopathy complicated by coagulopathy in fact with right side hemarthrosis. PT, OT, WELDING TESTER ongoing. Patient however with pain and unable to tolerate a full inpatient rehab program currently. Currently would recommend a slower paced program such as SNF placement.
[2022-03-21 06:53] LABS: INR 2.2 (<1.2); Prothrombin Time 21.8 sec (9.0-12.0)
[2022-03-21] MEDS: ENOXAPARIN 40 MG/0.4 ML SYRINGE SQ SCH (08:43)
[2022-03-21] MEDS: FUROSEMIDE 40 MG TAB PO SCH ×2 (08:44→16:16)
[2022-03-21] MEDS: MONTELUKAST 10 MG TAB PO SCH (08:44)
[2022-03-21] MEDS: PANTOPRAZOLE 40 MG/10 ML VIAL IVP SCH (08:44)
[2022-03-21] MEDS: MEGESTROL 400 MG/10 ML CUP PO SCH (08:44)
[2022-03-21] MEDS ORDERED: WARFARIN 5 MG TAB PO ONE (18:00)
--- NOTE | 2022-03-21 18:11 | P.PN ---
Subjective Progress Note Date: 03/21/22 This is a 66-year-old female patient who presented to the hospital on 03/12/2022 with altered mental status changes. Patient is well-known to my service with a past medical history of MS, hypothyroidism CVA, fibromyalgia, osteoarthritis, CVA, pulmonary embolism and sleep apnea. According to records patient was found to have increased confusion per . patient was found to be anemic with a hemoglobin of 5.9 with a right thigh swelling and abdominal pain. CT of abdomen and pelvis completed showing extensive soft tissue swelling along the anterior lower pelvis anterior. And right groin. Surgical services were consulted. patietn transfused with 2 units of PRBCs and and 1 unit of FFP. Coumadin currently on hold. Surgical, orthopedic services and hematology services were consulted. No surgical plans at this time. Hemoglobin improving to 7.9. On 03/14/2022 patient is alert resting comfortably in bed. Patient still complaining of generalized pain. Hemoglobin 7.9 platelets 74. Coumadin remains on hold. At this time vascular surgery, orthopedic services, surgical services, neurology and hematology services are following. Per records no plans for surgical intervention at this time no need for IVC filter per hematology services. Surgical vascular surgery have signed off. Patient denies chest pain or shortness breath. Patient denies nausea vomiting or diarrhea. Patient denies any urinary burning frequency 03/15/2022 patient is resting comfortably in bed. Hemoglobin 8.0. Awaiting further oncology recommendations regards to anticoagulation. Patient has been started on Lovenox 40 subcu daily. At this time patient denies chest pain or shortness breath. Patient denies nausea vomiting or diarrhea. Patient denies any urinary burning or frequency 03/16/2022 patient resting comfortably in bed alert. Hemoglobin any 8.3. Patient remains on Lovenox Coumadin on hold. Per oncology note and sitting risk versus benefit of Coumadin further recommendations to come per oncology services. At this time patient denies chest pain or shortness breath. Patient denies nausea vomiting or diarrhea. Patient denies any urinary burning or frequency 03/17/2022 patient resting comfortably in bed alert. Hemoglobin any 8.3. Patient remains on Lovenox Coumadin on hold. At this time patient denies chest pain or shortness breath. Patient denies nausea vomiting or diarrhea. Patient denies any urinary burning or frequency, at this time awaiting hematology recommendation in regard to resuming Coumadin treatment, patient had pulmonary embolism prior to 2013, no further information is available at this time. On 03/18/2022 patient was seen and examined on the medical floor she is alert and oriented 3 in no apparent distress, review of old records revealed evidence of bilateral pulmonary embolism, patient has very minimal physical activity and is at high risk for DVT and PE, at this time will resume Coumadin will monitor very closely as outpatient. Patient has very poor oral intake, at this time will add Megace 400 mg by mouth daily Will consult physical therapy and occupational therapy, will consult Dr. Giles for possible rehab admission On 03/19/2022 patient is alert and oriented 3. Awaiting Dr. Giles consult for possible inpatient rehab discharge. Patient received 10 mg of Coumadin last night. INR today 1.0. Hemoglobin 9.6 pharmacy to dose Coumadin. Patient denies chest pain or shortness breath. Patient denies nausea vomiting or diarrhea. Patient denies any urinary burning or frequency On 03/20/2022 patient was seen and examined the telemetry floor she is alert and oriented 3 in no apparent distress, there is no fever or chills no headache or dizziness no chest pain no shortness of breath no cough no nausea or vomiting no abdominal pain no diarrhea and no urinary symptoms, is more alert and is having more oral intake, PT and OT consult requested, will consult Dr. Giles for possible rehab admission, continue dosing Coumadin per pharmacy On 03/21/2022 patient was seen and examined the telemetry floor she is alert and oriented 3 in no apparent distress, there is no fever or chills no headache or dizziness no chest pain no shortness of breath no cough no nausea or vomiting no abdominal pain no diarrhea and no urinary symptoms, is more alert and is having more oral intake, PT and OT consult requested, poor oral intake Megace was added to patient's regimen, INR is therapeutic today at 2.2, will discontinue subcu Lovenox, continue physical therapy and occupational therapy, patient was not accepted at [facility] inpatient rehab, possible discharge to a fdc in the next 1-2 days Objective - Vital Signs Vital signs: Vital Signs Temp 98 F 03/21/22 08:00 Pulse 67 03/21/22 11:45 Resp 16 03/21/22 11:45 BP 107/63 03/21/22 11:45 Pulse Ox 97 03/21/22 08:33 FiO2 21 03/15/22 19:10 Intake & Output 03/20/22 03/21/22 03/21/22 18:59 06:59 18:59 Intake Total 118 118 118 Output Total 1350 Balance 118 -1232 118 Weight 101 kg Intake: Oral 118 118 118 Output: Urine 1350 Other: Voiding Method Indwelling Catheter Indwelling Catheter Indwelling Catheter # Bowel Movements 1 - Exam Head normocephalic Neck supple Lungs clear to auscultation bilaterally no wheezing or crackles Heart regular rate and rhythm S1-S2, no rub or gallop Abdomen is soft nontender nondistended positive bowel sounds no hepatosplenomegaly Extremities no edema Neuro alert and orientated to 3. Expressive aphasia - Labs CBC & Chem 7: 03/20/22 06:24 03/20/22 06:24 Labs: Abnormal Lab Results - Last 24 Hours (Table) 03/21/22 Range/Units 05:46 PT 21.8 H (9.0-12.0) sec INR 2.2 H (<1.2) Assessment and Plan Assessment: 1. Anemia with supratherapeutic INR with left lower extremity swelling. Orthopedic services were consulted department [facility] [place]. Surgical services also consulted for surgical intervention at this time vascular surgery following. 2. Coagulopathy secondary to Coumadin 3. Altered mental status changes 4. History of pulmonary embolism maintained on Coumadin 5. Chronic kidney disease stage III 6. History history of multiple sclerosis 7. History of fibromyalgia 8. History of osteoarthritis 9. History of CVA At this time patient remains on telemetry floor. Hematology, Vascular surgery, orthopedic surgery, general surgery and neurology services following. Coumadin resumed Repeat labs ordered for a.m. Discharge planning in place Dr. Abdul consulted for possible inpatient rehab
[2022-03-22] MEDS: HYDROcodone/APAP 10-325MG 1 EACH TAB PO PRN ×2 (03:55→09:20)
[2022-03-22] MEDS: GENTAMICIN 0.3% OPHTH DROPS 5 ML BTL LEFT EYE SCH ×5 (04:36→21:23)
[2022-03-22] MEDS: LEVOTHYROXINE 75 MCG TAB PO SCH (06:23)
[2022-03-22] MEDS: FERROUS SULFATE 325 MG TAB PO SCH ×2 (06:23→16:48)
[2022-03-22] MEDS: FUROSEMIDE 40 MG TAB PO SCH ×2 (09:09→16:48)
[2022-03-22] MEDS: MEGESTROL 400 MG/10 ML CUP PO SCH (09:09)
[2022-03-22] MEDS: MONTELUKAST 10 MG TAB PO SCH (09:09)
[2022-03-22 09:50] LABS: INR 2.4 (<1.2); Prothrombin Time 24.3 sec (9.0-12.0)
[2022-03-22] MEDS: PANTOPRAZOLE 40 MG/10 ML VIAL IVP SCH (12:02)
--- NOTE | 2022-03-22 17:47 | P.PN ---
Subjective Progress Note Date: 03/22/22 This is a 66-year-old female patient who presented to the hospital on 03/12/2022 with altered mental status changes. Patient is well-known to my service with a past medical history of MS, hypothyroidism CVA, fibromyalgia, osteoarthritis, CVA, pulmonary embolism and sleep apnea. According to records patient was found to have increased confusion per . patient was found to be anemic with a hemoglobin of 5.9 with a right thigh swelling and abdominal pain. CT of abdomen and pelvis completed showing extensive soft tissue swelling along the anterior lower pelvis anterior. And right groin. Surgical services were consulted. patietn transfused with 2 units of PRBCs and and 1 unit of FFP. Coumadin currently on hold. Surgical, orthopedic services and hematology services were consulted. No surgical plans at this time. Hemoglobin improving to 7.9. On 03/14/2022 patient is alert resting comfortably in bed. Patient still complaining of generalized pain. Hemoglobin 7.9 platelets 74. Coumadin remains on hold. At this time vascular surgery, orthopedic services, surgical services, neurology and hematology services are following. Per records no plans for surgical intervention at this time no need for IVC filter per hematology services. Surgical vascular surgery have signed off. Patient denies chest pain or shortness breath. Patient denies nausea vomiting or diarrhea. Patient denies any urinary burning frequency 03/15/2022 patient is resting comfortably in bed. Hemoglobin 8.0. Awaiting further oncology recommendations regards to anticoagulation. Patient has been started on Lovenox 40 subcu daily. At this time patient denies chest pain or shortness breath. Patient denies nausea vomiting or diarrhea. Patient denies any urinary burning or frequency 03/16/2022 patient resting comfortably in bed alert. Hemoglobin any 8.3. Patient remains on Lovenox Coumadin on hold. Per oncology note and sitting risk versus benefit of Coumadin further recommendations to come per oncology services. At this time patient denies chest pain or shortness breath. Patient denies nausea vomiting or diarrhea. Patient denies any urinary burning or frequency 03/17/2022 patient resting comfortably in bed alert. Hemoglobin any 8.3. Patient remains on Lovenox Coumadin on hold. At this time patient denies chest pain or shortness breath. Patient denies nausea vomiting or diarrhea. Patient denies any urinary burning or frequency, at this time awaiting hematology recommendation in regard to resuming Coumadin treatment, patient had pulmonary embolism prior to 2013, no further information is available at this time. On 03/18/2022 patient was seen and examined on the medical floor she is alert and oriented 3 in no apparent distress, review of old records revealed evidence of bilateral pulmonary embolism, patient has very minimal physical activity and is at high risk for DVT and PE, at this time will resume Coumadin will monitor very closely as outpatient. Patient has very poor oral intake, at this time will add Megace 400 mg by mouth daily Will consult physical therapy and occupational therapy, will consult Dr. Giles for possible rehab admission On 03/19/2022 patient is alert and oriented 3. Awaiting Dr. Giles consult for possible inpatient rehab discharge. Patient received 10 mg of Coumadin last night. INR today 1.0. Hemoglobin 9.6 pharmacy to dose Coumadin. Patient denies chest pain or shortness breath. Patient denies nausea vomiting or diarrhea. Patient denies any urinary burning or frequency On 03/20/2022 patient was seen and examined the telemetry floor she is alert and oriented 3 in no apparent distress, there is no fever or chills no headache or dizziness no chest pain no shortness of breath no cough no nausea or vomiting no abdominal pain no diarrhea and no urinary symptoms, is more alert and is having more oral intake, PT and OT consult requested, will consult Dr. Giles for possible rehab admission, continue dosing Coumadin per pharmacy On 03/21/2022 patient was seen and examined the telemetry floor she is alert and oriented 3 in no apparent distress, there is no fever or chills no headache or dizziness no chest pain no shortness of breath no cough no nausea or vomiting no abdominal pain no diarrhea and no urinary symptoms, is more alert and is having more oral intake, PT and OT consult requested, poor oral intake Megace was added to patient's regimen, INR is therapeutic today at 2.2, will discontinue subcu Lovenox, continue physical therapy and occupational therapy, patient was not accepted at [facility] inpatient rehab, possible discharge to a prison in the next 1-2 days On 03/22/2022 patient was seen and examined on the medical floor she is alert and oriented 3 in no apparent distress there is no fever or chills no headache or dizziness no chest pain no shortness of breath no cough no nausea or vomiting no abdominal pain no diarrhea no blood in the stools no burning with urination no frequency or urgency and no hematuria which is improving gradually her hemoglobin is stable she is tolerating Coumadin well possible discharge to a prison for rehab in the next 24 hours Objective - Vital Signs Vital signs: Vital Signs Temp 97.7 F 03/22/22 08:00 Pulse 68 03/22/22 16:00 Resp 65 H 03/22/22 16:00 BP 127/70 03/22/22 16:00 Pulse Ox 95 03/22/22 16:00 FiO2 21 03/15/22 19:10 Intake & Output 03/21/22 03/22/22 03/22/22 18:59 06:59 18:59 Intake Total 118 354 Output Total 400 500 Balance 118 -400 -146 Weight 101 kg 95 kg Intake: Oral 118 354 Output: Urine 400 500 Other: Voiding Method Indwelling Catheter Indwelling Catheter Indwelling Catheter # Bowel Movements 1 1 - Exam Head normocephalic Neck supple Lungs clear to auscultation bilaterally no wheezing or crackles Heart regular rate and rhythm S1-S2, no rub or gallop Abdomen is soft nontender nondistended positive bowel sounds no hepatosplenomegaly Extremities no edema Neuro alert and orientated to 3. Expressive aphasia - Labs CBC & Chem 7: 03/20/22 06:24 03/20/22 06:24 Labs: Abnormal Lab Results - Last 24 Hours (Table) 03/22/22 Range/Units 08:15 PT 24.3 H (9.0-12.0) sec INR 2.4 H (<1.2) Assessment and Plan Assessment: 1. Anemia with supratherapeutic INR with left lower extremity swelling. Orthopedic services were consulted department [facility] [place]. Surgical services also consulted for surgical intervention at this time vascular surgery following. 2. Coagulopathy secondary to Coumadin 3. Altered mental status changes 4. History of pulmonary embolism maintained on Coumadin 5. Chronic kidney disease stage III 6. History history of multiple sclerosis 7. History of fibromyalgia 8. History of osteoarthritis 9. History of CVA At this time patient remains on telemetry floor. Hematology, Vascular surgery, orthopedic surgery, general surgery and neurology services following. Coumadin resumed Repeat labs ordered for a.m. Discharge planning in place Dr. Abdul consulted for possible inpatient rehab
[2022-03-22] MEDS ORDERED: WARFARIN 5 MG TAB PO ONE (18:00)
[2022-03-23] MEDS: GENTAMICIN 0.3% OPHTH DROPS 5 ML BTL LEFT EYE SCH ×5 (00:20→17:21)
[2022-03-23] MEDS: HYDROcodone/APAP 10-325MG 1 EACH TAB PO PRN (03:28)
[2022-03-23] MEDS: FERROUS SULFATE 325 MG TAB PO SCH ×2 (06:33→17:21)
[2022-03-23] MEDS: LEVOTHYROXINE 75 MCG TAB PO SCH (06:33)
[2022-03-23] MEDS: MEGESTROL 400 MG/10 ML CUP PO SCH (08:41)
[2022-03-23] MEDS: MONTELUKAST 10 MG TAB PO SCH (08:41)
[2022-03-23] MEDS: FUROSEMIDE 40 MG TAB PO SCH ×2 (08:41→17:21)
[2022-03-23] MEDS: PANTOPRAZOLE 40 MG/10 ML VIAL IVP SCH (08:42)
[2022-03-23 09:19] LABS: Anisocytosis Slight; Basophils % (A) 0 %; Eosinophils # (A) 0.1 k/uL (0-0.7); Eosinophils % (A) 2 %; HCT 31.5 % (34.0-46.0); HGB 10.2 gm/dL (11.4-16.0); Hypochromasia Moderate; INR 2.4 (<1.2); Lymphocytes # (A) 0.7 k/uL (1.0-4.8); Lymphocytes % (A) 14 %; MCH 29.7 pg (25.0-35.0); MCHC 32.2 g/dL (31.0-37.0); MCV 92.1 fL (80.0-100.0); Mean Platelet Volume 9.3; Monocytes # (A) 0.2 k/uL (0-1.0); Monocytes % (A) 4 %; Neutrophils # (A) 3.9 k/uL (1.3-7.7); Neutrophils % (A) 79 %; Platelet Count 319 k/uL (150-450); Poikilocytosis Slight; Prothrombin Time 24.2 sec (9.0-12.0); RBC 3.42 m/uL (3.80-5.40); RDW 16.4 % (11.5-15.5)
[2022-03-23 09:23] LABS: Albumin 3.7 g/dL (3.5-5.0); Calcium 9.1 mg/dL (8.4-10.2); Potassium 3.7 mmol/L (3.5-5.1); Total Bilirubin 1.5 mg/dL (0.2-1.3)
--- NOTE | 2022-03-23 12:53 | P.DS ---
Providers Date of admission: 03/12/22 06:24 Expected date of discharge: 03/23/22 Attending physician: Sarah Paredes Consults: 03/10/22 19:55 Consult Physician Routine Consulting Provider: Jewell Villasenor Consult Reason/Comments: ams Do you want consulting provider notified?: Yes 03/11/22 11:10 Consult Physician Stat Consulting Provider: Jin Roberto Consult Reason/Comments: right lower extremity swelling and induration Do you want consulting provider notified?: Yes 03/11/22 11:23 Consult Physician Urgent Consulting Provider: Christian Kumar Consult Reason/Comments: COAGULOPATHY Do you want consulting provider notified?: Yes 03/18/22 14:17 Consult Physician Routine Consulting Provider: Aaron Abdul Consult Reason/Comments: possible rehab admission Do you want consulting provider notified?: Yes 03/20/22 12:25 Consult Physician Routine Consulting Provider: Aaron Abdul Consult Reason/Comments: Possible rehab admission Do you want consulting provider notified?: Yes Primary care physician: Sarah Paredes Hospital Course: Discharge diagnosis 1. Anemia with supratherapeutic INR with left lower extremity swelling. Orthopedic services were consulted department syndrome [place]. Surgical services also consulted for surgical intervention at this time vascular surgery following. 2. Coagulopathy secondary to Coumadin 3. Altered mental status changes 4. History of pulmonary embolism maintained on Coumadin 5. Chronic kidney disease stage III 6. History history of multiple sclerosis 7. History of fibromyalgia 8. History of osteoarthritis 9. History of CVA Hospital course This is a 66-year-old female patient who presented to the hospital on 03/12/2022 with altered mental status changes. Patient is well-known to my service with a past medical history of MS, hypothyroidism CVA, fibromyalgia, osteoarthritis, CVA, pulmonary embolism and sleep apnea. According to records patient was found to have increased confusion per . patient was found to be anemic with a hemoglobin of 5.9 with a right thigh swelling and abdominal pain. CT of abdomen and pelvis completed showing extensive soft tissue swelling along the anterior lower pelvis anterior. And right groin. Surgical services were consulted. patietn transfused with 2 units of PRBCs and and 1 unit of FFP. Coumadin currently on hold. Surgical, orthopedic services and hematology services were consulted. No surgical plans at this time. Hemoglobin improving to 7.9. On 03/14/2022 patient is alert resting comfortably in bed. Patient still complaining of generalized pain. Hemoglobin 7.9 platelets 74. Coumadin remains on hold. At this time vascular surgery, orthopedic services, surgical services, neurology and hematology services are following. Per records no plans for surgical intervention at this time no need for IVC filter per hematology services. Surgical vascular surgery have signed off. Patient denies chest pain or shortness breath. Patient denies nausea vomiting or diarrhea. Patient denies any urinary burning frequency 03/15/2022 patient is resting comfortably in bed. Hemoglobin 8.0. Awaiting further oncology recommendations regards to anticoagulation. Patient has been started on Lovenox 40 subcu daily. At this time patient denies chest pain or shortness breath. Patient denies nausea vomiting or diarrhea. Patient denies any urinary burning or frequency 03/16/2022 patient resting comfortably in bed alert. Hemoglobin any 8.3. Patient remains on Lovenox Coumadin on hold. Per oncology note and sitting risk versus benefit of Coumadin further recommendations to come per oncology services. At this time patient denies chest pain or shortness breath. Patient denies nausea vomiting or diarrhea. Patient denies any urinary burning or frequency 03/17/2022 patient resting comfortably in bed alert. Hemoglobin any 8.3. Patient remains on Lovenox Coumadin on hold. At this time patient denies chest pain or shortness breath. Patient denies nausea vomiting or diarrhea. Patient denies any urinary burning or frequency, at this time awaiting hematology recommendation in regard to resuming Coumadin treatment, patient had pulmonary embolism prior to 2013, no further information is available at this time. On 03/18/2022 patient was seen and examined on the medical floor she is alert and oriented 3 in no apparent distress, review of old records revealed evidence of bilateral pulmonary embolism, patient has very minimal physical activity and is at high risk for DVT and PE, at this time will resume Coumadin will monitor very closely as outpatient. Patient has very poor oral intake, at this time will add Megace 400 mg by mouth daily Will consult physical therapy and occupational therapy, will consult Dr. Giles for possible rehab admission On 03/19/2022 patient is alert and oriented 3. Awaiting Dr. Giles consult for possible inpatient rehab discharge. Patient received 10 mg of Coumadin last night. INR today 1.0. Hemoglobin 9.6 pharmacy to dose Coumadin. Patient denies chest pain or shortness breath. Patient denies nausea vomiting or diarrhea. Patient denies any urinary burning or frequency On 03/20/2022 patient was seen and examined the telemetry floor she is alert and oriented 3 in no apparent distress, there is no fever or chills no headache or dizziness no chest pain no shortness of breath no cough no nausea or vomiting no abdominal pain no diarrhea and no urinary symptoms, is more alert and is having more oral intake, PT and OT consult requested, will consult Dr. Giles for possible rehab admission, continue dosing Coumadin per pharmacy On 03/21/2022 patient was seen and examined the telemetry floor she is alert and oriented 3 in no apparent distress, there is no fever or chills no headache or dizziness no chest pain no shortness of breath no cough no nausea or vomiting no abdominal pain no diarrhea and no urinary symptoms, is more alert and is having more oral intake, PT and OT consult requested, poor oral intake Megace was added to patient's regimen, INR is therapeutic today at 2.2, will discontinue subcu Lovenox, continue physical therapy and occupational therapy, patient was not accepted at [facility] rehab, possible discharge to a alf in the next 1-2 days On 03/22/2022 patient was seen and examined on the medical floor she is alert and oriented 3 in no apparent distress there is no fever or chills no headache or dizziness no chest pain no shortness of breath no cough no nausea or vomiting no abdominal pain On 03/23/2022 patient is alert and oriented 3. Patient will be DC'd to rehab facility today. Hemoglobin remained stable at 10.2. INR 2.4. Patient will be maintained on 5 mg Coumadin will recheck INR on Monday. At this time patient d enies chest pain or shortness breath. Patient denies nausea vomiting or diarrhea. Patient denies any urinary burning or frequency Patient Condition at Discharge: Stable Plan - Discharge Summary New Discharge Prescriptions: New Warfarin [Coumadin] 5 mg PO ONCE@1800 tab Gentamicin 0.3% Ophth Soln [Garamycin 0.3% Ophth Soln] 1 drops LEFT EYE Q4HR ml Ferrous Sulfate [Iron (65 MG Elemental)] 325 mg PO BID-W/MEALS tab Warfarin [Coumadin] 5 mg PO DAILY 30 Days #30 tab Megestrol [Megace] 400 mg PO DAILY ml cefUROXime axetiL [Cefuroxime] 500 mg PO BID 7 Days #14 tab Continue Baclofen [Lioresal] 10 mg PO DAILY Montelukast [Singulair] 10 mg PO DAILY Furosemide [Lasix] 40 mg PO BID Potassium Chloride 20 meq PO BID Pantoprazole Sodium [Protonix] 40 mg PO DAILY Methylphenidate HCl [Ritalin] 20 mg PO BID Levothyroxine Sodium [Synthroid] 75 mcg PO DAILY Discontinued Warfarin [Coumadin] 7.5 mg PO DAILY@1700 fentaNYL 50MCG/HR PATCH [Duragesic 50MCG/HR] 1 patch TRANSDERM Q72H oxyCODONE HCL/ACETAMINOPHEN [Percocet 5-325 mg] 1 tab PO BID PRN PRN Reason: Pain Pregabalin [Lyrica] 150 mg PO TID Discharge Medication List Baclofen [Lioresal] 10 mg PO DAILY 11/08/13 [History] Furosemide [Lasix] 40 mg PO BID 11/08/13 [History] Montelukast [Singulair] 10 mg PO DAILY 11/08/13 [History] Pantoprazole Sodium [Protonix] 40 mg PO DAILY 11/08/13 [History] Potassium Chloride 20 meq PO BID 11/08/13 [History] Methylphenidate HCl [Ritalin] 20 mg PO BID 11/18/15 [History] Levothyroxine Sodium [Synthroid] 75 mcg PO DAILY 03/10/22 [History] Ferrous Sulfate [Iron (65 MG Elemental)] 325 mg PO BID-W/MEALS tab 03/23/22 [Rx] Gentamicin 0.3% Ophth Soln [Garamycin 0.3% Ophth Soln] 1 drops LEFT EYE Q4HR ml 03/23/22 [Rx] Megestrol [Megace] 400 mg PO DAILY ml 03/23/22 [Rx] Warfarin [Coumadin] 5 mg PO DAILY 30 Days #30 tab 03/23/22 [Rx] Warfarin [Coumadin] 5 mg PO ONCE@1800 tab 03/23/22 [Rx] cefUROXime axetiL [Cefuroxime] 500 mg PO BID 7 Days #14 tab 03/23/22 [Rx] Follow up Appointment(s)/Referral(s): Sarah Paredes MD [Primary Care Provider] - 1-2 days
[2022-03-23 14:56] VITALS: BMI 34.8
[2022-03-23 15:53] VITALS: TEMP 98.4
[2022-03-23 15:55] VITALS: BP 109/68; PULSE 66; RESP 16
[2022-03-23] MEDS ORDERED: WARFARIN 5 MG TAB PO ONE (18:00)
== END 2022-03-23 17:41 | DRG 813 ==
LOC: EC 16:54 → 6NMEDSUR 19:55 → 3SCARD 03-11 18:18 → OBSVTOIN 03-12 06:24
PROVIDERS: ADMIT Internal Medicine; ATTEND Internal Medicine
PROC: 30233K1 Transfusion of Nonautologous Frozen Plasma into Peripheral Vein, Percutaneous Approach (ICD-10-PCS; principal; 2022-03-14)
PROC: 30233N1 Transfusion of Nonautologous Red Blood Cells into Peripheral Vein, Percutaneous Approach (ICD-10-PCS; principal; 2022-03-14)
DX: D68.32 Hemorrhagic disorder due to extrinsic circulating anticoagulants (principal); G92.8 Other toxic encephalopathy; I69.351 Hemiplegia and hemiparesis following cerebral infarction affecting right dominant side; L03.115 Cellulitis of right lower limb; M25.061 Hemarthrosis, right knee; T45.515A Adverse effect of anticoagulants, initial encounter; N18.30 Chronic kidney disease, stage 3 unspecified; E03.9 Hypothyroidism, unspecified; Z79.890 Hormone replacement therapy; G35 Multiple sclerosis; M79.7 Fibromyalgia; M19.90 Unspecified osteoarthritis, unspecified site; S40.021A Contusion of right upper arm, initial encounter; I69.320 Aphasia following cerebral infarction; D63.8 Anemia in other chronic diseases classified elsewhere; D68.9 Coagulation defect, unspecified; F32.A Depression, unspecified; M25.751 Osteophyte, right hip; G43.909 Migraine, unspecified, not intractable, without status migrainosus; E66.01 Morbid (severe) obesity due to excess calories; M79.81 Nontraumatic hematoma of soft tissue; G47.33 Obstructive sleep apnea (adult) (pediatric); G89.29 Other chronic pain; G93.89 Other specified disorders of brain; I12.9 Hypertensive chronic kidney disease with stage 1 through stage 4 chronic kidney disease, or unspecified chronic kidney disease; I48.91 Unspecified atrial fibrillation; K76.0 Fatty (change of) liver, not elsewhere classified; K86.89 Other specified diseases of pancreas; N28.1 Cyst of kidney, acquired; I69.391 Dysphagia following cerebral infarction; R13.10 Dysphagia, unspecified; R32 Unspecified urinary incontinence; Z79.01 Long term (current) use of anticoagulants; Z79.899 Other long term (current) drug therapy; Z86.711 Personal history of pulmonary embolism; Z86.718 Personal history of other venous thrombosis and embolism; Z90.710 Acquired absence of both cervix and uterus; Z90.49 Acquired absence of other specified parts of digestive tract; Z91.048 Other nonmedicinal substance allergy status; Z68.34 Body mass index [BMI] 34.0-34.9, adult; Z87.19 Personal history of other diseases of the digestive system
CPT/HCPCS: 36415; 70450; 71045; 73501; 74018; 74176; 75635; 80048; 80053; 80076; 80306; 81001; 82607; 82728; 82747; 83540; 83550; 83735; 84484; 85025; 85027; 85045; 85384; 85610; 85730; 86850; 86900; 86901; 86920; 87635; 93005; 94760; 96360; 96361; 99285

== ENCOUNTER → 2022-07-05 | Outpatient (CLI) | payer MEDICARE ==
[2022-07-05 12:52] LABS: INR 1.2 (<1.2); Prothrombin Time 12.5 sec (9.0-12.0)
== END | disposition home or self-care (01) ==
LOC: LABWHC1 12:16
PROVIDERS: ATTEND Internal Medicine
DX: Z86.711 Personal history of pulmonary embolism (principal)
CPT/HCPCS: 36415; 85610

== ENCOUNTER 2022-09-23 20:20 | Inpatient (IN) | payer MEDICARE ==
--- NOTE | 2022-09-23 21:08 | XR ---
EXAMINATION TYPE: XR chest 1V portable DATE OF EXAM: 09/23/2022 COMPARISON: 03/10/2022 HISTORY: Acute mental status TECHNIQUE: Single view FINDINGS: There is some linear density at the lung bases. Heart size is normal. No heart failure. The re are chest leads. IMPRESSION: There is some atelectasis at the lung bases and decreased inspiration compared to old exa m. No heart failure seen.
[2022-09-23 21:17] LABS: INR 4.2 (<1.2); Partial Thromboplastin Time 45.3 sec (22.0-30.0); Prothrombin Time 40.8 sec (9.0-12.0)
[2022-09-23 21:22] LABS: Basophils % (A) 0 %; Eosinophils % (A) 1 %; HCT 39.5 % (34.0-46.0); HGB 13.5 gm/dL (11.4-16.0); Lymphocytes # (A) 0.3 k/uL (1.0-4.8); Lymphocytes % (A) 5 %; MCH 30.5 pg (25.0-35.0); MCHC 34.1 g/dL (31.0-37.0); MCV 89.3 fL (80.0-100.0); Monocytes # (A) 0.2 k/uL (0-1.0); Monocytes % (A) 4 %; Neutrophils # (A) 4.4 k/uL (1.3-7.7); Neutrophils % (A) 89 %; Platelet Count 126 k/uL (150-450); RBC 4.42 m/uL (3.80-5.40); RDW 14.3 % (11.5-15.5)
[2022-09-23 21:26] LABS: Albumin 3.8 g/dL (3.5-5.0); Calcium 8.2 mg/dL (8.4-10.2); Potassium 3.7 mmol/L (3.5-5.1); Total Bilirubin 0.7 mg/dL (0.2-1.3); Total Protein 6.1 g/dL (6.3-8.2)
--- NOTE | 2022-09-23 22:10 | CT ---
EXAMINATION TYPE: CT brain wo con DATE OF EXAM: 09/23/2022 COMPARISON: 03/10/2022 HISTORY: AMS CT DLP: 1119.4 mGycm Automated exposure control for dose reduction was used. CT scan of the brain. Images obtained of the brain with no contrast. There is large area of hypodensity involving the left cerebral hemisphere in the middle cerebral rashawn ry distribution. There is temporal and parietal and anterior occipital involvement. There is no midli ne shift. There is some enlargement of the left lateral ventricle. No hemorrhage. Calvarium is intact . IMPRESSION: Encephalomalacia left cerebral hemisphere without change and related to old infarct. No hemorrhage.
[2022-09-23 23:17] LABS: Appearance,Urine Clear (Clear); Bilirubin,Urine Negative (Negative); Blood,Urine Negative (Negative); Color,Urine Light Yellow; Glucose,Urine (UA) Negative (Negative); Ketones,Urine Negative (Negative); Leukocyte Esterase,Urine Negative (Negative); Nitrite,Urine Negative (Negative); PH, Urine 5.5 (5.0-8.0); Protein,Urine Negative (Negative); Specific Gravity,Urine 1.014 (1.001-1.035); Urobilinogen,Urine <2.0 mg/dL (<2.0)
[2022-09-24] MEDS ORDERED: NALOXONE 0.4 MG/ML 1 ML VIAL IV PRN (00:03)
[2022-09-24] MEDS: SODIUM CHLORIDE 0.9% 1,000 ML IV SCH ×2 (04:17→12:09)
--- NOTE | 2022-09-24 05:38 | ED ---
Altered Mental Status HPI - General Chief Complaint: Altered Mental Status Stated Complaint: AMS Time Seen by Provider: 09/23/22 20:22 Source: family Mode of arrival: EMS Limitations: altered mental status - History of Present Illness Initial Comments: This patient is a 67-year-old woman with history of MS, brought by ambulance to have evaluation for change in mental status. The patient not able to add much history. She does answer specific questions. She was complaining of pains "everywhere." The patient had not noted fevers. Denies dyspnea. No change in urination or bowel movements noted. MD Complaint: altered mental status -: hour(s) Severity: moderate Consistency of Symptoms: getting worse Context: history of similar presentation Associated Symptoms: denies other symptoms - Related Data Home Medications Medication Instructions Recorded Confirmed Baclofen [Lioresal] 10 mg PO DAILY 11/08/13 09/23/22 Furosemide [Lasix] 40 mg PO BID 11/08/13 09/23/22 Montelukast [Singulair] 10 mg PO DAILY 11/08/13 09/23/22 Pantoprazole Sodium [Protonix] 40 mg PO DAILY 11/08/13 09/23/22 Potassium Chloride 20 meq PO BID 11/08/13 09/23/22 Methylphenidate HCl [Ritalin] 20 mg PO BID 11/18/15 09/23/22 Levothyroxine Sodium [Synthroid] 75 mcg PO DAILY 03/10/22 09/23/22 Cholecalciferol [Vitamin D3 (25 50 mcg PO DAILY 09/23/22 09/23/22 Mcg = 1000 Iu)] Fluticasone Nasal [place] [Flonase 1 spray EA NOSTRIL BID 09/23/22 09/23/22 Nasal [place]] HYDROcodone/APAP 10-325MG [[place] 1 tab PO BID PRN 09/23/22 09/23/22 10-325] Pregabalin [Lyrica] 100 mg PO BID@1400,1700 09/23/22 09/23/22 Pregabalin [Lyrica] 200 mg PO BID@0900,2000 09/23/22 09/23/22 Warfarin [Coumadin] 5 mg PO MOTUWETHFRSA 09/23/22 09/23/22 Allergies Allergy/AdvReac Type Severity Reaction Status Date / Time adhesive AdvReac SKIN Verified 09/23/22 22:01 PEELING Review of Systems ROS Statement: Those systems with pertinent positive or pertinent negative responses have been documented in the HPI. ROS Other: All systems not noted in ROS Statement are negative. Limitations: ROS unobtainable due to patients medical condition Past Medical History Past Medical History: Chest Pain / Angina, CVA/TIA, Fibromyalgia, Musculoskeletal Disorder, Neurologic Disorder, Osteoarthritis (OA), Pulmonary Embolus (PE), Sleep Apnea/CPAP/BIPAP, Thyroid Disorder Additional Past Medical History / Comment(s): MULTIPLE SCLEROSIS, HX OF CVA 2006 WITH R SIDED WEAKNESS AND DYSPHASIA-MUCH IMPROVED, MIGRAINES, SLEEP APNEA(HAS C-PAP MACHINE BUT DOES NOT USE) ABD HERNIA,CHRONIC PAIN ESPECIALLY ON R SIDE OF BODY AND LOW BACK . PAINFUL FOR HER TO LIE FLAT. HX OF NOSEBLEED JUL 2014 AND RECEIVED PLASMA TRANSFUSION. takes pills with applesauce. History of Any Multi-Drug Resistant Organisms: VRE Date of last positivie culture/infection: 10/24/09 confirmed with infectious disease nurse on 08/18/16. MDRO Source:: URINE Past Surgical History: Appendectomy, Cholecystectomy, Hysterectomy Additional Past Surgical History / Comment(s): Incisional hernia repair, laparoscopic lysis of adhesions in 1987, ganglion cyst removal of the left wrist, patent foramen ovale patch in 2006, RF ablation for back pain. Past Anesthesia/Blood Transfusion Reactions: No Reported Reaction Past Psychological History: Depression Smoking Status: Never smoker Past Alcohol Use History: None Reported Past Drug Use History: None Reported - Past Family History Mother Family Medical History: Hypertension Additional Family Medical History / Comment(s): osteoporosis Father Family Medical History: Dementia, Diabetes Mellitus General Exam General appearance: obtunded (Patient is arousable to tactile stimulus.), obese Head exam: Present: atraumatic, normocephalic Eye exam: Present: normal appearance, PERRL, EOMI. Absent: scleral icterus, conjunctival injection, nystagmus ENT exam: Present: mucous membranes dry Neck exam: Present: normal inspection Respiratory exam: Present: rhonchi. Absent: respiratory distress, wheezes, rales, stridor, accessory muscle use, decreased breath sounds Cardiovascular Exam: Present: regular rate, normal rhythm, normal heart sounds. Absent: systolic murmur, diastolic murmur, rubs, gallop GI/Abdominal exam: Present: soft. Absent: distended, tenderness, guarding, rebound, rigid, mass Extremities exam: Present: full ROM, pedal edema. Absent: tenderness, calf tenderness Back exam: Present: normal inspection. Absent: CVA tenderness (R), CVA tenderne ss (L) Neurological exam: Present: alert, CN II-XII intact. Absent: oriented X3 (Patient alert to person and aware she is at Hospital but could not state the date), motor sensory deficit Skin exam: Present: warm, dry, intact, normal color. Absent: rash Course Vital Signs 09/23/22 09/23/22 09/23/22 20:26 20:30 23:55 Temperature Pulse Rate 86 82 Respiratory 18 16 Rate Blood Pressure 113/60 119/55 O2 Sat by Pulse 88 L 96 96 Oximetry 09/24/22 09/24/22 09/24/22 00:31 04:21 06:47 Temperature 98.8 F Pulse Rate 73 75 Respiratory 16 18 Rate Blood Pressure 107/58 102/50 O2 Sat by Pulse 95 Oximetry 09/24/22 09/24/22 09/24/22 08:51 09:15 10:19 Temperature Pulse Rate 72 73 73 Respiratory 18 18 16 Rate Blood Pressure 93/45 93/45 110/52 O2 Sat by Pulse 97 96 97 Oximetry 09/24/22 09/24/22 11:33 13:14 Temperature Pulse Rate 74 86 Respiratory 18 Rate Blood Pressure 110/52 105/50 O2 Sat by Pulse 95 96 Oximetry Medical Decision Making - Medical Decision Making Patient is 67-year-old woman here with altered mental status. She did initially have pulse oximetry readings in the upper 80s which did improve on nasal cannula. The patient's workup does show appears to be some acute kidney injury. The patient's son subsequently arrived and stated that her had been admitted in the hospital here a few days ago with similar symptoms and he wondered if she was experiencing a similar illness. Patient's son notes that the had tested negative for Covid. He notes that the patient's functional status has been going downhill and that there had been some discussions about whether it was necessary to move her to an assisted living facility or higher level of care than that. Patient had chest x-ray which I interpreted as showing no acute infiltrate, congestive heart failure or pneumothorax. Patient had CT of the brain which I interpreted as not showing acute bony injury or intracranial hemorrhage. Patient's case discussed with admitting physician, she'll be admitted for further evaluation and treatment as well as to possibly consider placement. Was pt. sent in by a medical professional or institution (SUSAN Mao, DESK DIRECTOR, urgent care, hospital, or senior care...) When possible be specific @ -[No] Did you speak to anyone other than the patient for history (EMS, parent, family, police, friend...)? What history was obtained from this source @ -[Son Did you review nursing and triage notes (agree or disagree)? Why? @ -[I reviewed and agree with nursing and triage notes] Were old charts reviewed (outside hosp., previous admission, EMS record, old EKG, old radiological studies, urgent care reports/EKG's, senior care records)? Report findings @ -[No old charts were reviewed] Differential Diagnosis (chest pain, altered mental status, abdominal pain women, abdominal pain men, vaginal bleeding, weakness, fever, dyspnea, syncope, headac he, dizziness, GI bleed, back pain, seizure, CVA, palpatations, mental health, musculoskeletal)? @ -[Differential Altered Mental Status: Hypoglycemia, DKA, hypercapnia, ETOH, overdose, CO poisoning, trauma, myxedema coma, HTN encephalopathy, infection, encephalitis, psychosis, intercranial hemorrhage, hepatic encephalopathy, meningitis, CVA, this is not meant to be an all-inclusive list EKG interpreted by me (3pts min.). @ -[As above] X-rays interpreted by me (1pt min.). @ -[As above CT interpreted by me (1pt min.). @ -[As above U/S interpreted by me (1pt. min.). @ -[None done] What testing was considered but not performed or refused? (CT, X-rays, U/S, labs)? Why? @ -[None] What meds were considered but not given or refused? Why? @ -[None] Did you discuss the management of the patient with other professionals (professionals i.e. SUSAN Mao, DESK DIRECTOR, lab, RT, psych nurse, social services designee, cardiopulmonary technologist, teacher, risk control officer, rifle case repairer)? Give summary @ -[Admitting physician Was smoking cessation discussed for >3mins.? @ -[No] Was critical care preformed (if so, how long)? @ -[No] Were there social determinants of health that impacted care today? How? (Homelessness, low income, unemployed, alcoholism, drug addiction, transportation, low edu. Level, literacy, decrease access to med. care, nursing home, rehab)? @ -[No] Was there de-escalation of care discussed even if they declined (Discuss DNR or withdrawal of care, Hospice)? DNR status @ -[No] What co-morbidities impacted this encounter? (DM, HTN, Smoking, COPD, CAD, Cancer, CVA, ARF, Chemo, Hep., AIDS, mental health diagnosis, sleep apnea, morbid obesity)? @ -[None] Was patient admitted / discharged? Hospital course, mention meds given and route, prescriptions, significant lab abnormalities, going to OR and other pertinent info. @ -[Patient admitted as above Undiagnosed new problem with uncertain prognosis? @ -[No] Drug Therapy requiring intensive monitoring for toxicity (Heparin, Nitro, Insulin, Cardizem)? @ -[No] Were any procedures done? @ -[No] Diagnosis/symptom? @ -[1. Acute altered mental status 2. Acute Coumadin toxicity 3. Acute kidney injury Acute, or Chronic, or Acute on Chronic? @ -[default] Uncomplicated (without systemic symptoms) or Complicated (systemic symptoms)? @ -[default] Side effects of treatment? @ -[No] Exacerbation, Progression, or Severe Exacerbation? @ -[No] Poses a threat to life or bodily function? How? (Chest pain, [place], [place], pneumonia, PE, COPD, DKA, ARF, appy, cholecystitis, CVA, Diverticulitis, Homicidal, Suicidal, threat to staff... and all critical care pts) @ -[Uncertain - Lab Data Result diagrams: 09/29/22 05:20 09/29/22 05:20 Lab Results 09/23/22 09/23/22 09/23/22 Range/Units 20:47 20:47 20:47 WBC 5.0 (3.8-10.6) k/uL RBC 4.42 (3.80-5.40) m/uL Hgb 13.5 (11.4-16.0) gm/dL Hct 39.5 (34.0-46.0) % MCV 89.3 (80.0-100.0) fL MCH 30.5 (25.0-35.0) pg MCHC 34.1 (31.0-37.0) g/dL RDW 14.3 (11.5-15.5) % Plt Count 126 L (150-450) k/uL MPV 12.0 Neutrophils % 89 % Lymphocytes % 5 % Monocytes % 4 % Eosinophils % 1 % Basophils % 0 % Neutrophils # 4.4 (1.3-7.7) k/uL Lymphocytes # 0.3 L (1.0-4.8) k/uL Monocytes # 0.2 (0-1.0) k/uL Eosinophils # 0.0 (0-0.7) k/uL Basophils # 0.0 (0-0.2) k/uL PT 40.8 H (9.0-12.0) sec INR 4.2 H (<1.2) APTT 45.3 H (22.0-30.0) sec Sodium 146 H (137-145) mmol/L Potassium 3.7 (3.5-5.1) mmol/L Chloride 110 H (98-107) mmol/L Carbon Dioxide 27 (22-30) mmol/L Anion Gap 9 mmol/L BUN 33 H (7-17) mg/dL Creatinine 1.35 H (0.52-1.04) mg/dL Est GFR (CKD-EPI)AfAm 46 (>60 ml/min/1.73 sqM) Est GFR (CKD-EPI)NonAf 40 (>60 ml/min/1.73 sqM) Glucose 149 H (74-99) mg/dL Calcium 8.2 L (8.4-10.2) mg/dL Total Bilirubin 0.7 (0.2-1.3) mg/dL AST 30 (14-36) U/L ALT 24 (4-34) U/L Alkaline Phosphatase 89 (38-126) U/L Troponin I (0.000-0.034) ng/mL Total Protein 6.1 L (6.3-8.2) g/dL Albumin 3.8 (3.5-5.0) g/dL Urine Color Urine Appearance (Clear) Urine pH (5.0-8.0) Ur Specific [place] (1.001-1.035) Urine Protein (Negative) Urine Glucose (UA) (Negative) Urine Ketones (Negative) Urine Blood (Negative) Urine Nitrite (Negative) Urine Bilirubin (Negative) Urine Urobilinogen (<2.0) mg/dL Ur Leukocyte Esterase (Negative) 09/23/22 09/23/22 Range/Units 20:47 22:38 WBC (3.8-10.6) k/uL RBC (3.80-5.40) m/uL Hgb (11.4-16.0) gm/dL Hct (34.0-46.0) % MCV (80.0-100.0) fL MCH (25.0-35.0) pg MCHC (31.0-37.0) g/dL RDW (11.5-15.5) % Plt Count (150-450) k/uL MPV Neutrophils % % Lymphocytes % % Monocytes % % Eosinophils % % Basophils % % Neutrophils # (1.3-7.7) k/uL Lymphocytes # (1.0-4.8) k/uL Monocytes # (0-1.0) k/uL Eosinophils # (0-0.7) k/uL Basophils # (0-0.2) k/uL PT (9.0-12.0) sec INR (<1.2) APTT (22.0-30.0) sec Sodium (137-145) mmol/L Potassium (3.5-5.1) mmol/L Chloride (98-107) mmol/L Carbon Dioxide (22-30) mmol/L Anion Gap mmol/L BUN (7-17) mg/dL Creatinine (0.52-1.04) mg/dL Est GFR (CKD-EPI)AfAm (>60 ml/min/1.73 sqM) Est GFR (CKD-EPI)NonAf (>60 ml/min/1.73 sqM) Glucose (74-99) mg/dL Calcium (8.4-10.2) mg/dL Total Bilirubin (0.2-1.3) mg/dL AST (14-36) U/L ALT (4-34) U/L Alkaline Phosphatase (38-126) U/L Troponin I <0.012 (0.000-0.034) ng/mL Total Protein (6.3-8.2) g/dL Albumin (3.5-5.0) g/dL Urine Color Light Yellow Urine Appearance Clear (Clear) Urine pH 5.5 (5.0-8.0) Ur Specific [place] 1.014 (1.001-1.035) Urine Protein Negative (Negative) Urine Glucose (UA) Negative (Negative) Urine Ketones Negative (Negative) Urine Blood Negative (Negative) Urine Nitrite Negative (Negative) Urine Bilirubin Negative (Negative) Urine Urobilinogen <2.0 (<2.0) mg/dL Ur Leukocyte Esterase Negative (Negative) Disposition Clinical Impression: Weakness generalized, Altered mental status, Acute kidney injury, Coumadin toxicity Disposition: ADMITTED IP TO THIS HOSP Condition: Poor
[2022-09-24] MEDS: LEVOTHYROXINE 75 MCG TAB PO SCH (07:53)
[2022-09-24] MEDS: PANTOPRAZOLE 40 MG TABLET PO SCH (07:53)
[2022-09-24] MEDS ORDERED: FAMOTIDINE 20 MG TAB PO SCH (09:00)
[2022-09-24] MEDS: POTASSIUM CHLORIDE ER 20 MEQ TAB.ER PO SCH ×2 (09:35→22:24)
[2022-09-24] MEDS: MONTELUKAST 10 MG TAB PO SCH (09:35)
[2022-09-24] MEDS: METHYLPHENIDATE HCL 10 MG TAB PO SCH ×2 (11:30→22:58)
[2022-09-24] MEDS: PREGABALIN 100 MG CAP PO SCH ×4 (11:30→22:25)
[2022-09-24] MEDS ORDERED: SODIUM CHLORIDE 0.9% 1,000 ML IV STA (11:39)
--- NOTE | 2022-09-24 11:44 | P.HPIM ---
History of Present Illness H&P Date: 09/24/22 Huong Cooper, is a 67-year-old female that presented to [facility] emergency room with a chief complaint of mental status changes and generalized pain, patient was also complaining of abdominal pain and episodes of vomiting. Patient is a known history of stroke in the past and questionable history of multiple sclerosis, she usually requires 24 hour care which is provided by her , however her is hospitalized at this time and her condition started to worsen, eventually she was brought into emergency room by her family. She was evaluated in the emergency room vital examination on presentation revealed a temperature of 98.8 pulse 86 respiration 18 blood pressure 113/60 pulse ox 88% on room air Laboratory data revealed a white blood count of 5.0 hemoglobin 13.5 platelet count 126 INR of 4.2 sodium 146 potassium 3.7 chloride 110 BUN 33 creatinine 1.35 Testing in the emergency room revealed chest x-ray done in the emergency room revealed evidence of atelectasis at the lung bases, otherwise no acute abnormality, computed tomography scan of the brain done without contrast in the emergency room revealed encephalomalacia left cerebral hemisphere without change and related to old infarct, no evidence of hemorrhage. EKG done in the emergency room revealed sinus rhythm with occasional ventricular premature complexes. Patient was admitted to medical floor for further evaluation and treatment. Past medical history is significant for history of left hemispheric stroke with right sided weakness, patient has a known diagnosis of multiple sclerosis, however neurology consultation on previous admission doubted this diagnosis, patient was referred to [facility] neurology department for evaluation, she recently had an MRI of the brain and cervical and thoracic spine MRI, history of hypothyroidism, history of lower extremity DVT maintained on Coumadin Past Medical History Past Medical History: Chest Pain / Angina, CVA/TIA, Fibromyalgia, Musculoskeletal Disorder, Neurologic Disorder, Osteoarthritis (OA), Pulmonary Embolus (PE), Sleep Apnea/CPAP/BIPAP, Thyroid Disorder Additional Past Medical History / Comment(s): MULTIPLE SCLEROSIS, HX OF CVA 2006 WITH R SIDED WEAKNESS AND DYSPHASIA-MUCH IMPROVED, MIGRAINES, SLEEP APNEA(HAS C- PAP MACHINE BUT DOES NOT USE) ABD HERNIA,CHRONIC PAIN ESPECIALLY ON R SIDE OF BODY AND LOW BACK . PAINFUL FOR HER TO LIE FLAT. HX OF NOSEBLEED JUL 2014 AND RECEIVED PLASMA TRANSFUSION. takes pills with applesauce. History of Any Multi-Drug Resistant Organisms: VRE Date of last positivie culture/infection: 10/24/09 confirmed with infectious disease nurse on 08/18/16. MDRO Source:: URINE Past Surgical History: Appendectomy, Cholecystectomy, Hysterectomy Additional Past Surgical History / Comment(s): Incisional hernia repair, laparoscopic lysis of adhesions in 1987, ganglion cyst removal of the left wrist, patent foramen ovale patch in 2006, RF ablation for back pain. Past Anesthesia/Blood Transfusion Reactions: No Reported Reaction Past Psychological History: Depression Smoking Status: Never smoker Past Alcohol Use History: None Reported Past Drug Use History: None Reported - Past Family History Mother Family Medical History: Hypertension Additional Family Medical History / Comment(s): osteoporosis Father Family Medical History: Dementia, Diabetes Mellitus Medications and Allergies Home Medications Medication Instructions Recorded Confirmed Type Baclofen [Lioresal] 10 mg PO DAILY 11/08/13 09/23/22 History Furosemide [Lasix] 40 mg PO BID 11/08/13 09/23/22 History Montelukast [Singulair] 10 mg PO DAILY 11/08/13 09/23/22 History Pantoprazole Sodium [Protonix] 40 mg PO DAILY 11/08/13 09/23/22 History Potassium Chloride 20 meq PO BID 11/08/13 09/23/22 History Methylphenidate HCl [Ritalin] 20 mg PO BID 11/18/15 09/23/22 History Levothyroxine Sodium [Synthroid] 75 mcg PO DAILY 03/10/22 09/23/22 History Cholecalciferol [Vitamin D3 (25 50 mcg PO DAILY 09/23/22 09/23/22 History Mcg = 1000 Iu)] Fluticasone Nasal [place] [Flonase 1 spray EA NOSTRIL BID 09/23/22 09/23/22 History Nasal [place]] HYDROcodone/APAP 10-325MG [[place] 1 tab PO BID PRN 09/23/22 09/23/22 History 10-325] Pregabalin [Lyrica] 100 mg PO BID@1400,1700 09/23/22 09/23/22 History Pregabalin [Lyrica] 200 mg PO BID@0900,2000 09/23/22 09/23/22 History Warfarin [Coumadin] 5 mg PO MOTUWETHFRSA 09/23/22 09/23/22 History Allergies Allergy/AdvReac Type Severity Reaction Status Date / Time adhesive AdvReac SKIN Verified 09/23/22 22:01 PEELING Physical Exam Vitals: Vital Signs Temp Pulse Resp BP Pulse Ox 09/24/22 10:19 73 16 110/52 97 09/24/22 09:15 73 18 93/45 96 09/24/22 08:51 72 18 93/45 97 09/24/22 06:47 75 18 102/50 09/24/22 04:21 73 16 107/58 95 09/24/22 00:31 98.8 F 09/23/22 23:55 82 16 119/55 96 09/23/22 20:30 96 09/23/22 20:26 86 18 113/60 88 L Intake and Output 09/23/22 09/24/22 09/24/22 22:59 06:59 14:59 Other: Weight 86.183 kg In general patient is alert and oriented x 3 in no distress HEENT head normocephalic and atraumatic Neck is supple no JVD no goiter no lymphadenopathy no carotid bruit Chest examination is clear to auscultation no crackles no wheezing Cardiac exam reveals regular heart sounds S1 and S2 no gallops no murmurs Abdomen is soft, with generalized tenderness no organomegaly with normal bowel sounds Extremity exam reveals no edema no cyanosis or clubbing Neurological examination reveals no acute gross focal deficits, patient has generalized right sided weakness. Results CBC & Chem 7: 09/23/22 20:47 09/23/22 20:47 Labs: Abnormal Lab Results - Last 24 Hours (Table) 09/23/22 09/23/22 09/23/22 Range/Units 20:47 20:47 20:47 Plt Count 126 L (150-450) k/uL Lymphocytes # 0.3 L (1.0-4.8) k/uL PT 40.8 H (9.0-12.0) sec INR 4.2 H (<1.2) APTT 45.3 H (22.0-30.0) sec Sodium 146 H (137-145) mmol/L Chloride 110 H (98-107) mmol/L BUN 33 H (7-17) mg/dL Creatinine 1.35 H (0.52-1.04) mg/dL Glucose 149 H (74-99) mg/dL Calcium 8.2 L (8.4-10.2) mg/dL Total Protein 6.1 L (6.3-8.2) g/dL Assessment and Plan Plan: Acute mental status change in Abdominal pain and vomiting Dehydration with acute kidney injury with elevated BUN and creatinine Coagulopathy with elevated INR Known history of stroke in the past Underlying history of hypothyroidism Underlying history of peripheral neuropathy At this time patient was seen and examined She will be admitted to medical floor Hold Coumadin recheck INR Gentle hydration will normal saline at 50 mL per Computed tomography scan of the abdomen and pelvis with oral contrast without IV contrast Will follow closely
[2022-09-24] MEDS ORDERED: IOPAMIDOL CONTRAST (ORAL USE) VIAL PO PRN (11:45)
[2022-09-24] MEDS: BACLOFEN 10 MG TAB PO SCH (12:14)
[2022-09-24] MEDS: CHOLECALCIFEROL 25 MCG (1000 IU) TABLET PO SCH (12:14)
[2022-09-24 12:41] LABS: ALT 22 U/L (4-34); AST 29 U/L (14-36); African American GFR (CKD) 52 (>60 ml/min/1.73 sqM); Albumin 3.3 g/dL (3.5-5.0); Albumin/Globulin Ratio 1.6; Alkaline Phosphatase 80 U/L (38-126); Anion Gap 7 mmol/L; Blood Urea Nitrogen 29 mg/dL (7-17); Calcium 7.6 mg/dL (8.4-10.2); Carbon Dioxide 26 mmol/L (22-30); Chloride 113 mmol/L (98-107); Globulin 2.1 g/dL; Glucose 143 mg/dL (74-99); Non-African American GFR(CKD) 45 (>60 ml/min/1.73 sqM); Potassium 3.6 mmol/L (3.5-5.1); Sodium 146 mmol/L (137-145); Total Bilirubin 0.7 mg/dL (0.2-1.3); Total Protein 5.4 g/dL (6.3-8.2)
[2022-09-24 12:52] LABS: Prothrombin Time 39.6 sec (9.0-12.0)
[2022-09-24] MEDS: FUROSEMIDE 40 MG TAB PO SCH (16:22)
--- NOTE | 2022-09-24 16:34 | CT ---
EXAMINATION TYPE: CT abdomen pelvis wo con DATE OF EXAM: 09/24/2022 COMPARISON: 03/11/2022 HISTORY: pain, vomiting CT DLP: 2163.0 mGycm Automated exposure control for dose reduction was used. Images obtained from the diaphragm to the floor the pelvis with no contrast. There is subsegmental atelectasis at the posterior lung bases. Heart size is normal. No pericardial e ffusion. There is bronchial cartilage calcification. There are clips from cholecystectomy. Liver spleen stomach pancreas appear intact. The boundaries are not dilated. There is no adrenal mass. Kidneys have normal size and contour. No hydronephrosis. Ureters are not di lated. No retroperitoneal adenopathy. No inguinal hernia. No free fluid in the pelvis. No evidence of a pelvic mass. There are surgical clips apparently from appendectomy. There is no mesenteric edema. No ascites or free air. No sign of a bowel obstruction. The lumbar vertebrae have normal alignment. Posterior element are intact. There is vacuum disc at L5- S1. Facet joints are intact. Bony pelvis is intact. The hip joints are intact. There is dilated urina ry bladder measuring 17.5 cm. IMPRESSION: Dilated urinary bladder could relate to bladder outlet obstruction. Previous surgery. There is clearing of the right upper thigh hematoma compared to old exam. No mesenteric edema. No ascites or free air. No sign of a bowel obstruction.
[2022-09-24] MEDS: FLUTICASONE 50MCG/SPRAY NASAL 16GM EA NOSTRIL SCH (22:58)
[2022-09-24] MEDS: HYDROcodone/APAP 10-325MG 1 EACH TAB PO PRN (23:05)
[2022-09-25] MEDS: SODIUM CHLORIDE 0.9% 1,000 ML IV SCH ×2 (03:04→21:29)
[2022-09-25] MEDS: LEVOTHYROXINE 75 MCG TAB PO SCH (06:28)
[2022-09-25 08:29] LABS: INR 3.5 (<1.2); Prothrombin Time 34.3 sec (9.0-12.0)
--- NOTE | 2022-09-25 08:56 | P.PN ---
Subjective Progress Note Date: 09/25/22 Huong Cooper, is a 67-year-old female that presented to [facility] emergency room with a chief complaint of mental status changes and generalized pain, patient was also complaining of abdominal pain and episodes of vomiting. Patient is a known history of stroke in the past and questionable history of multiple sclerosis, she usually requires 24 hour care which is provided by her , however her is hospitalized at this time and her condition started to worsen, eventually she was brought into emergency room by her family. She was evaluated in the emergency room vital examination on presentation revealed a temperature of 98.8 pulse 86 respiration 18 blood pressure 113/60 pulse ox 88% on room air Laboratory data revealed a white blood count of 5.0 hemoglobin 13.5 platelet count 126 INR of 4.2 sodium 146 potassium 3.7 chloride 110 BUN 33 creatinine 1.35 Testing in the emergency room revealed chest x-ray done in the emergency room revealed evidence of atelectasis at the lung bases, otherwise no acute abnormality, computed tomography scan of the brain done without contrast in the emergency room revealed encephalomalacia left cerebral hemisphere without change and related to old infarct, no evidence of hemorrhage. EKG done in the emergency room revealed sinus rhythm with occasional ventricular premature complexes. Patient was admitted to medical floor for further evaluation and treatment. Past medical history is significant for history of left hemispheric stroke with right sided weakness, patient has a known diagnosis of multiple sclerosis, however neurology consultation on previous admission doubted this diagnosis, patient was referred to [facility] neurology department for evaluation, she recently had an MRI of the brain and cervical and thoracic spine MRI, history of hypothyroidism, history of lower extremity DVT maintained on Coumadin On 09/25/2022 patient was seen and examined on the medical floor she is alert and oriented 3 in no distress she has low-grade fever with temperature of 100.5, she is also complaining of abdominal pain, otherwise she denies any complaints at this time, computed tomography scan of the abdomen and pelvis revealed, there is bladder distention otherwise no apparent abnormality, will check amylase and lipase, awaiting consult from general surgery, there is no clear source of infection, will check blood culture and consult infectious disease. Objective - Vital Signs Vital signs: Vital Signs Temp 98.5 F 09/25/22 02:28 Pulse 76 09/25/22 02:28 Resp 16 09/25/22 02:28 BP 115/68 09/25/22 02:28 Pulse Ox 96 09/25/22 02:28 FiO2 Intake & Output 09/24/22 09/25/22 09/25/22 18:59 06:59 18:59 Intake Total 240 590 Output Total 1900 Balance 240 -1310 Weight 86.183 kg Intake: Oral 240 590 Output: Urine 1900 Stool 0 Other: # Voids 1 - Exam In general patient is alert and oriented x 3 in no distress HEENT head normocephalic and atraumatic Neck is supple no JVD no goiter no lymphadenopathy no carotid bruit Chest examination is clear to auscultation no crackles no wheezing Cardiac exam reveals regular heart sounds S1 and S2 no gallops no murmurs Abdomen is soft, with generalized tenderness no organomegaly with normal bowel sounds Extremity exam reveals no edema no cyanosis or clubbing Neurological examination reveals no acute gross focal deficits, patient has generalized right sided weakness. - Labs CBC & Chem 7: 09/23/22 20:47 09/24/22 11:46 Labs: Abnormal Lab Results - Last 24 Hours (Table) 09/24/22 09/24/22 Range/Units 11:46 11:46 PT 39.6 H (9.0-12.0) sec INR 4.0 H (<1.2) Sodium 146 H (137-145) mmol/L Chloride 113 H (98-107) mmol/L BUN 29 H (7-17) mg/dL Creatinine 1.22 H (0.52-1.04) mg/dL Glucose 143 H (74-99) mg/dL Calcium 7.6 L (8.4-10.2) mg/dL Total Protein 5.4 L (6.3-8.2) g/dL Albumin 3.3 L (3.5-5.0) g/dL Microbiology - Last 24 Hours (Table) 09/23/22 20:55 Blood Culture - Preliminary Blood No Growth after 24 hours 09/23/22 20:40 Blood Culture - Preliminary Blood No Growth after 24 hours Assessment and Plan Plan: Acute mental status change Abdominal pain and vomiting Dehydration with acute kidney injury with elevated BUN and creatinine Coagulopathy with elevated INR Known history of stroke in the past Underlying history of hypothyroidism Underlying history of peripheral neuropathy At this time patient was seen and examined She will be admitted to medical floor Hold Coumadin recheck INR Gentle hydration will normal saline at 50 mL per Computed tomography scan of the abdomen and pelvis with oral contrast without IV contrast Will follow closely
--- NOTE | 2022-09-25 09:06 | P.GSCN ---
History of Present Illness Consult date: 09/25/22 Reason for Consult: Abdominal pain History of present illness: 67-year-old female known to were service. Patient with history of previous CVA and subsequently has significant aphasia. Patient's is currently hospitalized with duodenitis. Patient has chronic pain issues. Apparently recently complaining of increased abdominal pain and vomiting. CAT scan performed last night shows a very distended urinary bladder. Patient did have a low-grade fever 100.5. Elevated INR. White blood cell count normal. Review of Systems ROS unobtainable: due to mental status Past Medical History Past Medical History: Chest Pain / Angina, CVA/TIA, Fibromyalgia, Mu sculoskeletal Disorder, Neurologic Disorder, Osteoarthritis (OA), Pulmonary Embolus (PE), Sleep Apnea/CPAP/BIPAP, Thyroid Disorder Additional Past Medical History / Comment(s): MULTIPLE SCLEROSIS, HX OF CVA 2006 WITH R SIDED WEAKNESS AND DYSPHASIA-MUCH IMPROVED, MIGRAINES, SLEEP APNEA(HAS C- PAP MACHINE BUT DOES NOT USE) ABD HERNIA,CHRONIC PAIN ESPECIALLY ON R SIDE OF BODY AND LOW BACK . PAINFUL FOR HER TO LIE FLAT. HX OF NOSEBLEED JUL 2014 AND RECEIVED PLASMA TRANSFUSION. takes pills with applesauce. 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 MDRO Source:: URINE Past Surgical History: Appendectomy, Cholecystectomy, Hysterectomy Additional Past Surgical History / Comment(s): Incisional hernia repair, laparoscopic lysis of adhesions in 1987, ganglion cyst removal of the left wrist, patent foramen ovale patch in 2006, RF ablation for back pain. Past Anesthesia/Blood Transfusion Reactions: No Reported Reaction Past Psychological History: Depression Smoking Status: Never smoker Past Alcohol Use History: None Reported Past Drug Use History: None Reported - Past Family History Mother Family Medical History: Hypertension Additional Family Medical History / Comment(s): osteoporosis Father Family Medical History: Dementia, Diabetes Mellitus Medications and Allergies Home Medications Medication Instructions Recorded Confirmed Type Baclofen [Lioresal] 10 mg PO DAILY 11/08/13 09/23/22 History Furosemide [Lasix] 40 mg PO BID 11/08/13 09/23/22 History Montelukast [Singulair] 10 mg PO DAILY 11/08/13 09/23/22 History Pantoprazole Sodium [Protonix] 40 mg PO DAILY 11/08/13 09/23/22 History Potassium Chloride 20 meq PO BID 11/08/13 09/23/22 History Methylphenidate HCl [Ritalin] 20 mg PO BID 11/18/15 09/23/22 History Levothyroxine Sodium [Synthroid] 75 mcg PO DAILY 03/10/22 09/23/22 History Cholecalciferol [Vitamin D3 (25 50 mcg PO DAILY 09/23/22 09/23/22 History Mcg = 1000 Iu)] Fluticasone Nasal [place] [Flonase 1 spray EA NOSTRIL BID 09/23/22 09/23/22 History Nasal [place]] HYDROcodone/APAP 10-325MG [[place] 1 tab PO BID PRN 09/23/22 09/23/22 History 10-325] Pregabalin [Lyrica] 100 mg PO BID@1400,1700 09/23/22 09/23/22 History Pregabalin [Lyrica] 200 mg PO BID@0900,2000 09/23/22 09/23/22 History Warfarin [Coumadin] 5 mg PO MOTUWETHFRSA 09/23/22 09/23/22 History Allergies Allergy/AdvReac Type Severity Reaction Status Date / Time adhesive AdvReac SKIN Verified 09/23/22 22:01 PEELING Surgical - Exam Vital Signs Pulse Resp BP Pulse Ox 86 18 113/60 88 L 09/23/22 20:26 09/23/22 20:26 09/23/22 20:26 09/23/22 20:26 Physical exam: General: Well-developed, well-nourished HEENT: Normocephalic, sclerae nonicteric Abdomen: Distended, mild diffuse tenderness Extremities: No edema Neuro: Alert and oriented Results - Labs 09/23/22 20:47 09/24/22 11:46 Abnormal Lab Results - Last 24 Hours (Table) 09/24/22 09/24/22 09/25/22 Range/Units 11:46 11:46 07:51 PT 39.6 H 34.3 H (9.0-12.0) sec INR 4.0 H 3.5 H (<1.2) Sodium 146 H (137-145) mmol/L Chloride 113 H (98-107) mmol/L BUN 29 H (7-17) mg/dL Creatinine 1.22 H (0.52-1.04) mg/dL Glucose 143 H (74-99) mg/dL Calcium 7.6 L (8.4-10.2) mg/dL Total Protein 5.4 L (6.3-8.2) g/dL Albumin 3.3 L (3.5-5.0) g/dL Microbiology - Last 24 Hours (Table) 09/23/22 20:55 Blood Culture - Preliminary Blood No Growth after 24 hours 09/23/22 20:40 Blood Culture - Preliminary Blood No Growth after 24 hours Diabetes panel 09/24/22 Range/Units 11:46 Sodium 146 H (137-145) mmol/L Potassium 3.6 (3.5-5.1) mmol/L Chloride 113 H (98-107) mmol/L Carbon Dioxide 26 (22-30) mmol/L BUN 29 H (7-17) mg/dL Creatinine 1.22 H (0.52-1.04) mg/dL Glucose 143 H (74-99) mg/dL Calcium 7.6 L (8.4-10.2) mg/dL AST 29 (14-36) U/L ALT 22 (4-34) U/L Alkaline Phosphatase 80 (38-126) U/L Total Protein 5.4 L (6.3-8.2) g/dL Albumin 3.3 L (3.5-5.0) g/dL Calcium panel 09/24/22 Range/Units 11:46 Calcium 7.6 L (8.4-10.2) mg/dL Albumin 3.3 L (3.5-5.0) g/dL Pituitary panel 09/24/22 Range/Units 11:46 Sodium 146 H (137-145) mmol/L Potassium 3.6 (3.5-5.1) mmol/L Chloride 113 H (98-107) mmol/L Carbon Dioxide 26 (22-30) mmol/L BUN 29 H (7-17) mg/dL Creatinine 1.22 H (0.52-1.04) mg/dL Glucose 143 H (74-99) mg/dL Calcium 7.6 L (8.4-10.2) mg/dL Adrenal panel 09/24/22 Range/Units 11:46 Sodium 146 H (137-145) mmol/L Potassium 3.6 (3.5-5.1) mmol/L Chloride 113 H (98-107) mmol/L Carbon Dioxide 26 (22-30) mmol/L BUN 29 H (7-17) mg/dL Creatinine 1.22 H (0.52-1.04) mg/dL Glucose 143 H (74-99) mg/dL Calcium 7.6 L (8.4-10.2) mg/dL Total Bilirubin 0.7 (0.2-1.3) mg/dL AST 29 (14-36) U/L ALT 22 (4-34) U/L Alkaline Phosphatase 80 (38-126) U/L Total Protein 5.4 L (6.3-8.2) g/dL Albumin 3.3 L (3.5-5.0) g/dL Assessment and Plan (1) Abdominal pain Narrative/Plan: 67-year-old female with abdominal pain. CAT scan reviewed. I do wonder if the patient's markedly distended urinary bladder is saturating to the discomfort. Will have Vasques catheter placed. Check urinary culture. We'll follow. Current Visit: Yes Status: Acute Code(s): R10.9 - UNSPECIFIED ABDOMINAL PAIN SNOMED Code(s): 59578662
[2022-09-25] MEDS: FUROSEMIDE 40 MG TAB PO SCH ×2 (09:20→15:18)
[2022-09-25] MEDS: POTASSIUM CHLORIDE ER 20 MEQ TAB.ER PO SCH ×2 (09:20→21:20)
[2022-09-25] MEDS: FLUTICASONE 50MCG/SPRAY NASAL 16GM EA NOSTRIL SCH ×2 (09:20→21:21)
[2022-09-25] MEDS: PREGABALIN 100 MG CAP PO SCH ×4 (09:20→21:20)
[2022-09-25] MEDS: PANTOPRAZOLE 40 MG TABLET PO SCH (09:20)
[2022-09-25] MEDS: FAMOTIDINE 20 MG TAB PO SCH (09:20)
[2022-09-25] MEDS: CHOLECALCIFEROL 25 MCG (1000 IU) TABLET PO SCH (09:20)
[2022-09-25] MEDS: METHYLPHENIDATE HCL 10 MG TAB PO SCH ×2 (09:21→21:20)
[2022-09-25] MEDS: ACETAMINOPHEN TAB 325 MG TAB PO PRN (09:21)
[2022-09-25] MEDS: BACLOFEN 10 MG TAB PO SCH (09:21)
[2022-09-25] MEDS: MONTELUKAST 10 MG TAB PO SCH (09:21)
[2022-09-25 10:13] LABS: Appearance,Urine Clear (Clear); Bilirubin,Urine Negative (Negative); Blood,Urine Negative (Negative); Color,Urine Yellow; Glucose,Urine (UA) Negative (Negative); Ketones,Urine Negative (Negative); Leukocyte Esterase,Urine Negative (Negative); Nitrite,Urine Negative (Negative); PH, Urine 5.5 (5.0-8.0); Protein,Urine Trace (Negative); Specific Gravity,Urine 1.018 (1.001-1.035); Urobilinogen,Urine <2.0 mg/dL (<2.0)
[2022-09-25 11:54] LABS: Albumin 3.3 g/dL (3.8-4.9); Anion Gap 9.8 mmol/L (10.00-18.00); BUN/Creat Ratio 17.86 Ratio (12.00-20.00); Blood Urea Nitrogen 23.4 mg/dL (9.0-27.0); Calcium 8.1 mg/dL (8.7-10.3); Carbon Dioxide 24.6 mmol/L (20.0-27.5); Globulin 1.7 g/dL (1.6-3.3); Non-African American GFR(CKD) 41.4 (60.0-200.0); Potassium 3.9 mmol/L (3.5-5.5); Total Bilirubin 0.5 mg/dL (0.30-1.20)
[2022-09-25 12:28] LABS: Basophils # (A) 0.01 X 10*3/uL (0.00-0.10); Basophils % (A) 0.3 %; Eosinophils # (A) 0.01 X 10*3/uL (0.04-0.35); Eosinophils % (A) 0.3 %; HCT 33.3 % (37.2-46.3); HGB 10.8 g/dL (12.0-15.0); Immature Grans, Automated 0.3 %; Lymphocytes # (A) 0.53 X 10*3/uL (0.90-5.00); MCH 29.9 pg (27.0-32.0); MCHC 32.4 g/dL (32.0-37.0); MCV 92.2 fL (80.0-97.0); Mean Platelet Volume 14.2 fL (9.5-12.2); Monocytes # (A) 0.38 X 10*3/uL (0.20-1.00); Monocytes % (A) 10.1 %; NRBC Per 100 WBC 0 /100 WBCS (0.0-0.0); Neutrophils # (A) 2.84 X 10*3/uL (1.80-7.70); Platelet Count 99 X 10*3/uL (140-440); RBC 3.61 X 10*6/uL (4.10-5.20); RDW 14.6 % (11.5-14.5); WBC 3.78 X 10*3/uL (4.50-10.00)
[2022-09-25 12:51] LABS: Amylase 110 U/L (30-110); Lipase 73 U/L (23-300)
[2022-09-25] MEDS: HYDROcodone/APAP 10-325MG 1 EACH TAB PO PRN (15:19)
--- NOTE | 2022-09-25 21:01 | P.CONS ---
History of Present Illness - Reason for Consult Consult date: 09/25/22 - History of Present Illness Patient is a 67-year-old female with a past medical history significant for fibromyalgia MS CVA TIA PE sleep apnea presenting to the ER yesterday morning for evaluation of mental status changes and complaining of pain every where patient also complaining of abdominal pain apparently did have episode of vomiting patient on presentation to the hospital was running a low- grade fever of 99.9 degree for night and the patient did have a fever 100.5 this morning patient did have mild hypoxemia requiring supplemental oxygen currently on 2 L nasal cannula did have a normal white count BUN/creatinine was mildly elevated liver enzymes are normal amylase lipase was normal urine has been n egative patient did tested positive for COVID influenza PCR was negative patient did have a chest x-ray some atelectasis lung bases and decreased inspiration compared to old exam patient also have a CT of abdominal pelvis subsegmental atelectasis in posterior lung base dilated urinary bladder could be related to bladder outlet obstruction clearing of the right upper thigh hematoma compared on exam no signs of bowel obstruction patient was admitted to the hospital infectious was consulted regarding her fever and abdominal pain Past Medical History Past Medical History: Chest Pain / Angina, CVA/TIA, Fibromyalgia, Musculoskeletal Disorder, Neurologic Disorder, Osteoarthritis (OA), Pulmonary Embolus (PE), Sleep Apnea/CPAP/BIPAP, Thyroid Disorder Additional Past Medical History / Comment(s): MULTIPLE SCLEROSIS, HX OF CVA 2006 WITH R SIDED WEAKNESS AND DYSPHASIA-MUCH IMPROVED, MIGRAINES, SLEEP APNEA(HAS C- PAP MACHINE BUT DOES NOT USE) ABD HERNIA,CHRONIC PAIN ESPECIALLY ON R SIDE OF BODY AND LOW BACK . PAINFUL FOR HER TO LIE FLAT. HX OF NOSEBLEED JUL 2014 AND RECEIVED PLASMA TRANSFUSION. takes pills with applesauce. 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 MDRO Source:: URINE Past Surgical History: Appendectomy, Cholecystectomy, Hysterectomy Additional Past Surgical History / Comment(s): Incisional hernia repair, laparoscopic lysis of adhesions in 1987, ganglion cyst removal of the left wrist, patent foramen ovale patch in 2006, RF ablation for back pain. Past Anesthesia/Blood Transfusion Reactions: No Reported Reaction Past Psychological History: Depression Smoking Status: Never smoker Past Alcohol Use History: None Reported Past Drug Use History: None Reported - Past Family History Mother Family Medical History: Hypertension Additional Family Medical History / Comment(s): osteoporosis Father Family Medical History: Dementia, Diabetes Mellitus Medications and Allergies Home Medications Medication Instructions Recorded Confirmed Type Baclofen [Lioresal] 10 mg PO DAILY 11/08/13 09/23/22 History Furosemide [Lasix] 40 mg PO BID 11/08/13 09/23/22 History Montelukast [Singulair] 10 mg PO DAILY 11/08/13 09/23/22 History Pantoprazole Sodium [Protonix] 40 mg PO DAILY 11/08/13 09/23/22 History Potassium Chloride 20 meq PO BID 11/08/13 09/23/22 History Methylphenidate HCl [Ritalin] 20 mg PO BID 11/18/15 09/23/22 History Levothyroxine Sodium [Synthroid] 75 mcg PO DAILY 03/10/22 09/23/22 History Cholecalciferol [Vitamin D3 (25 50 mcg PO DAILY 09/23/22 09/23/22 History Mcg = 1000 Iu)] Fluticasone Nasal [place] [Flonase 1 spray EA NOSTRIL BID 09/23/22 09/23/22 History Nasal [place]] HYDROcodone/APAP 10-325MG [[place] 1 tab PO BID PRN 09/23/22 09/23/22 History 10-325] Pregabalin [Lyrica] 100 mg PO BID@1400,1700 09/23/22 09/23/22 History Pregabalin [Lyrica] 200 mg PO BID@0900,2000 09/23/22 09/23/22 History Warfarin [Coumadin] 5 mg PO MOTUWETHFRSA 09/23/22 09/23/22 History Allergies Allergy/AdvReac Type Severity Reaction Status Date / Time adhesive AdvReac SKIN Verified 09/23/22 22:01 PEELING Physical Exam Vitals: Vital Signs Temp Pulse Pulse Resp BP BP Pulse Ox 09/25/22 09:28 92 L 09/25/22 08:45 76 18 09/25/22 07:12 100.5 F H 76 18 119/65 93 L 09/25/22 02:28 98.5 F 76 16 115/68 96 09/24/22 20:00 18 09/24/22 18:07 99.6 F 74 18 114/72 93 L 09/24/22 17:25 99.9 F H 78 18 114/69 94 L 09/24/22 13:14 86 105/50 96 Intake and Output 09/24/22 09/25/22 09/25/22 22:59 06:59 14:59 Intake Total 240 590 Output Total 0 1900 950 Balance 240 -1310 -950 Intake: Oral 240 590 Output: Urine 1900 950 Uretheral ([place]) 850 Stool 0 0 Other: Voiding Method Indwelling Catheter # Voids 1 1 Results CBC & Chem 7: 09/25/22 07:51 09/25/22 07:51 Labs: Abnormal Lab Results - Last 24 Hours (Table) 09/24/22 09/24/22 09/25/22 Range/Units 11:46 11:46 07:51 PT 39.6 H 34.3 H (9.0-12.0) sec INR 4.0 H 3.5 H (<1.2) Sodium 146 H (137-145) mmol/L Chloride 113 H (98-107) mmol/L BUN 29 H (7-17) mg/dL Creatinine 1.22 H (0.52-1.04) mg/dL Glucose 143 H (74-99) mg/dL Calcium 7.6 L (8.4-10.2) mg/dL Total Protein 5.4 L (6.3-8.2) g/dL Albumin 3.3 L (3.5-5.0) g/dL Urine Protein (Negative) Coronavirus (PCR) (Not Detectd) 09/25/22 09/25/22 Range/Units 09:05 10:00 PT (9.0-12.0) sec INR (<1.2) Sodium (137-145) mmol/L Chloride (98-107) mmol/L BUN (7-17) mg/dL Creatinine (0.52-1.04) mg/dL Glucose (74-99) mg/dL Calcium (8.4-10.2) mg/dL Total Protein (6.3-8.2) g/dL Albumin (3.5-5.0) g/dL Urine Protein Trace H (Negative) Coronavirus (PCR) Detected A (Not Detectd) Microbiology - Last 24 Hours (Table) 09/23/22 20:55 Blood Culture - Preliminary Blood No Growth after 24 hours 09/23/22 20:40 Blood Culture - Preliminary Blood No Growth after 24 hours Assessment and Plan Plan: 1patient presented to hospital with generalized weakness and generalized body aches in this patient who did have a low-grade fever patient also tested positive for COVID could be related to her COVID-19 infection however the chest x-ray did not show any significant pneumonia patient also complaining of abdominal pain however no tenderness on examination CT abdominal pelvis did not show any acute abnormality 2-we will check her inflammatory markers 3-treatment for COVID should be mostly supportive as the patient is current not hypoxic and chest x-ray with no pneumonia no need for steroids or remdesivir 4-treatment for COVID should be mostly supportive with zinc ascorbic acid and patient is well correlated with the INR of 3.5 We will follow on clinical condition and cultures to further adjust medication if needed Thank you for this consultation we will follow the patient along with you Time with Patient: Greater than 30
[2022-09-26] MEDS: ACETAMINOPHEN TAB 325 MG TAB PO PRN ×2 (01:11→09:29)
[2022-09-26] MEDS: LEVOTHYROXINE 75 MCG TAB PO SCH (06:36)
[2022-09-26] MEDS: PANTOPRAZOLE 40 MG TABLET PO SCH (06:36)
[2022-09-26] MEDS: SODIUM CHLORIDE 0.9% 1,000 ML IV SCH ×2 (06:41→19:33)
[2022-09-26] MEDS: FLUTICASONE 50MCG/SPRAY NASAL 16GM EA NOSTRIL SCH ×3 (06:41→19:34)
--- NOTE | 2022-09-26 08:13 | P.PN ---
Subjective Progress Note Date: 09/26/22 Huong Cooper, is a 67-year-old female that presented to [facility] emergency room with a chief complaint of mental status changes and generalized pain, patient was also complaining of abdominal pain and episodes of vomiting. Patient is a known history of stroke in the past and questionable history of multiple sclerosis, she usually requires 24 hour care which is provided by her , however her is hospitalized at this time and her condition started to worsen, eventually she was brought into emergency room by her family. She was evaluated in the emergency room vital examination on presentation revealed a temperature of 98.8 pulse 86 respiration 18 blood pressure 113/60 pulse ox 88% on room air Laboratory data revealed a white blood count of 5.0 hemoglobin 13.5 platelet count 126 INR of 4.2 sodium 146 potassium 3.7 chloride 110 BUN 33 creatinine 1.35 Testing in the emergency room revealed chest x-ray done in the emergency room revealed evidence of atelectasis at the lung bases, otherwise no acute abnormality, computed tomography scan of the brain done without contrast in the emergency room revealed encephalomalacia left cerebral hemisphere without change and related to old infarct, no evidence of hemorrhage. EKG done in the emergency room revealed sinus rhythm with occasional ventricular premature complexes. Patient was admitted to medical floor for further evaluation and treatment. Past medical history is significant for history of left hemispheric stroke with right sided weakness, patient has a known diagnosis of multiple sclerosis, however neurology consultation on previous admission doubted this diagnosis, patient was referred to [facility] neurology department for evaluation, she recently had an MRI of the brain and cervical and thoracic spine MRI, history of hypothyroidism, history of lower extremity DVT maintained on Coumadin On 09/25/2022 patient was seen and examined on the medical floor she is alert and oriented 3 in no distress she has low-grade fever with temperature of 100.5, she is also complaining of abdominal pain, otherwise she denies any complaints at this time, computed tomography scan of the abdomen and pelvis revealed, there is bladder distention otherwise no apparent abnormality, will check amylase and lipase, awaiting consult from general surgery, there is no clear source of infection, will check blood culture and consult infectious disease. On 09/26/2022 patient was seen and examined on the medical floor she is alert and oriented 3 in no distress, she is also complaining of abdominal pain, othe rwise she denies any complaints at this time, there is no fever or chills no headache or dizziness no chest pain no shortness of breath no cough no nausea or vomiting no diarrhea and no urinary symptoms computed tomography scan of the abdomen and pelvis revealed, there is bladder distention otherwise no apparent abnormality, patient tested positive for COVID-19 yesterday, infectious disease and surgical consultation reviewed. Objective - Vital Signs Vital signs: Vital Signs Temp 99.9 F H 09/26/22 04:30 Pulse 78 09/26/22 00:38 Resp 15 09/26/22 00:38 BP 132/70 09/26/22 00:38 Pulse Ox 93 L 09/26/22 00:38 FiO2 Intake & Output 09/25/22 09/26/22 09/26/22 18:59 06:59 18:59 Output Total 1800 1400 Balance -1800 -1400 Output: Urine 1800 1400 Uretheral ([place]) 850 Stool 0 Other: Voiding Method Indwelling Catheter # Voids 1 2 - Exam In general patient is alert and oriented x 3 in no distress HEENT head normocephalic and atraumatic Neck is supple no JVD no goiter no lymphadenopathy no carotid bruit Chest examination is clear to auscultation no crackles no wheezing Cardiac exam reveals regular heart sounds S1 and S2 no gallops no murmurs Abdomen is soft, with generalized tenderness no organomegaly with normal bowel sounds Extremity exam reveals no edema no cyanosis or clubbing Neurological examination reveals no acute gross focal deficits, patient has generalized right sided weakness. - Labs CBC & Chem 7: 09/25/22 07:51 09/25/22 07:51 Labs: Abnormal Lab Results - Last 24 Hours (Table) 09/25/22 09/25/22 09/25/22 Range/Units 07:51 07:51 07:51 WBC 3.78 L (4.50-10.00) X 10*3/uL RBC 3.61 L (4.10-5.20) X 10*6/uL Hgb 10.8 L (12.0-15.0) g/dL Hct 33.3 L (37.2-46.3) % RDW 14.6 H (11.5-14.5) % Plt Count 99 L (140-440) X 10*3/uL Plt Count Comment DECREASED A MPV 14.2 H (9.5-12.2) fL Lymphocytes # 0.53 L (0.90-5.00) X 10*3/uL Eosinophils # 0.01 L (0.04-0.35) X 10*3/uL PT 34.3 H (9.0-12.0) sec INR 3.5 H (<1.2) Anion Gap 9.80 L (10.00-18.00) mmol/L Est GFR (CKD-EPI)AfAm 48.0 L (60.0-200.0) Est GFR (CKD-EPI)NonAf 41.4 L (60.0-200.0) Glucose 153 H (70-110) mg/dL Calcium 8.1 L (8.7-10.3) mg/dL Total Protein 5.0 L (6.2-8.2) g/dL Albumin 3.3 L (3.8-4.9) g/dL Urine Protein (Negative) Coronavirus (PCR) (Not Detectd) 09/25/22 09/25/22 Range/Units 09:05 10:00 WBC (4.50-10.00) X 10*3/uL RBC (4.10-5.20) X 10*6/uL Hgb (12.0-15.0) g/dL Hct (37.2-46.3) % RDW (11.5-14.5) % Plt Count (140-440) X 10*3/uL Plt Count Comment MPV (9.5-12.2) fL Lymphocytes # (0.90-5.00) X 10*3/uL Eosinophils # (0.04-0.35) X 10*3/uL PT (9.0-12.0) sec INR (<1.2) Anion Gap (10.00-18.00) mmol/L Est GFR (CKD-EPI)AfAm (60.0-200.0) Est GFR (CKD-EPI)NonAf (60.0-200.0) Glucose (70-110) mg/dL Calcium (8.7-10.3) mg/dL Total Protein (6.2-8.2) g/dL Albumin (3.8-4.9) g/dL Urine Protein Trace H (Negative) Coronavirus (PCR) Detected A (Not Detectd) Microbiology - Last 24 Hours (Table) 09/23/22 20:40 Blood Culture - Preliminary Blood No Growth after 48 hours 09/23/22 20:55 Blood Culture - Preliminary Blood No Growth after 48 hours Assessment and Plan Plan: Acute mental status change Abdominal pain and vomiting Dehydration with acute kidney injury with elevated BUN and creatinine Febrile illness was positive COVID-19 PCR Coagulopathy with elevated INR Known history of stroke in the past Underlying history of hypothyroidism Underlying history of peripheral neuropathy At this time patient was seen and examined She will be admitted to medical floor Hold Coumadin recheck INR Gentle hydration will normal saline at 50 mL per Computed tomography scan of the abdomen and pelvis with oral contrast without IV contrast Will follow closely
[2022-09-26] MEDS: METHYLPHENIDATE HCL 10 MG TAB PO SCH ×2 (09:29→19:34)
[2022-09-26] MEDS: ASCORBIC ACID 500 MG TAB PO SCH (09:29)
[2022-09-26] MEDS: CHOLECALCIFEROL 25 MCG (1000 IU) TABLET PO SCH (09:30)
[2022-09-26] MEDS: POTASSIUM CHLORIDE ER 20 MEQ TAB.ER PO SCH ×2 (09:30→19:34)
[2022-09-26] MEDS: FUROSEMIDE 40 MG TAB PO SCH ×2 (09:30→17:06)
[2022-09-26] MEDS: FAMOTIDINE 20 MG TAB PO SCH (09:30)
[2022-09-26] MEDS: MONTELUKAST 10 MG TAB PO SCH (09:30)
[2022-09-26] MEDS: BACLOFEN 10 MG TAB PO SCH (09:30)
[2022-09-26] MEDS: ZINC SULFATE 220 MG CAP PO SCH (09:30)
[2022-09-26] MEDS: PREGABALIN 100 MG CAP PO SCH ×4 (09:30→19:34)
[2022-09-26 09:38] LABS: INR 2.75 (0.90-1.11); Prothrombin Time 29.9 sec (9.9-11.9)
[2022-09-26 10:11] LABS: C Reactive Protein 9.2 mg/dL (0.00-0.80)
[2022-09-26 10:24] LABS: African American GFR (CKD) 40.8 (60.0-200.0); Albumin 3.2 g/dL (3.8-4.9); Anion Gap 15.9 mmol/L (10.00-18.00); BUN/Creat Ratio 15.73 Ratio (12.00-20.00); Blood Urea Nitrogen 23.6 mg/dL (9.0-27.0); Calcium 7.9 mg/dL (8.7-10.3); Carbon Dioxide 19.1 mmol/L (20.0-27.5); Globulin 1.6 g/dL (1.6-3.3); Non-African American GFR(CKD) 35.2 (60.0-200.0); Potassium 3.7 mmol/L (3.5-5.5); Total Bilirubin 0.4 mg/dL (0.30-1.20); Total Protein 4.8 g/dL (6.2-8.2)
[2022-09-26 11:03] LABS: Basophils # (A) 0.01 X 10*3/uL (0.00-0.10); Basophils % (A) 0.3 %; Eosinophils # (A) 0.02 X 10*3/uL (0.04-0.35); Eosinophils % (A) 0.6 %; HCT 32.2 % (37.2-46.3); HGB 10.5 g/dL (12.0-15.0); Immature Grans, Automated 0.3 %; Lymphocytes # (A) 0.85 X 10*3/uL (0.90-5.00); Lymphocytes % (A) 25.3 %; MCH 29.9 pg (27.0-32.0); MCHC 32.6 g/dL (32.0-37.0); MCV 91.7 fL (80.0-97.0); Mean Platelet Volume 13.8 fL (9.5-12.2); Monocytes # (A) 0.48 X 10*3/uL (0.20-1.00); Monocytes % (A) 14.3 %; NRBC Per 100 WBC 0 /100 WBCS (0.0-0.0); Neutrophils # (A) 1.99 X 10*3/uL (1.80-7.70); Neutrophils % (A) 59.2 %; Platelet Count 96 X 10*3/uL (140-440); RBC 3.51 X 10*6/uL (4.10-5.20); RDW 14.5 % (11.5-14.5); WBC 3.36 X 10*3/uL (4.50-10.00)
[2022-09-26 11:04] LABS: Microcytosis (M) 2+
--- NOTE | 2022-09-26 12:26 | P.PN ---
Subjective Progress Note Date: 09/26/22 CHIEF COMPLAINT: Abdominal pain HISTORY OF PRESENT ILLNESS: Patient has history of CVA and aphasia. She is chronic pain issues. Patient had Vasques catheter inserted due to distended bladder. No nausea or vomiting reported. No increase in abdominal pain reported. No bowel movement. Patient had been lying in bed comfortably. She did have a fever of 102.6 last night. Low-grade temps of 99. WBC is 3.36 Hgb 10.5 platelets 96 INR 2.75 sodium 142 potassium 3.7 creatinine 1.5 urinalysis negative for infection PHYSICAL EXAM: VITAL SIGNS: Reviewed. GENERAL: Well-developed in no acute distress. HEENT: No sclera icterus. Extraocular movements grossly intact. Moist buccal mucosa. Head is atraumatic, normocephalic. ABDOMEN: Soft. Nondistended. NEUROLOGIC: Alert and oriented. Cranial nerves II through XII grossly intact. ASSESSMENT: 1. Abdominal pain possibly related to distended urinary bladder status post Vasques catheter placement PLAN: -Continue supportive care -Continue regular diet Physician Medical Appointment Clerk note has been reviewed by physician. Signing provider agrees with the documented findings, assessment, and plan of care. I have personally seen and examined the patient, reviewed the [employer] /PAs history, exam and MDM and agree with the assessment and plan as written. Based on total visit time, I have performed more than 50% of the visit. As above: Patient doing better today. No pain currently. Tolerating diet. Likely pain related to urinary retention. Fevers likely related to infection. No surgical intervention planned. We'll sign off. Please call if needed. Objective - Vital Signs Vital signs: Vital Signs Temp 99.0 F 09/26/22 07:16 Pulse 65 09/26/22 09:30 Resp 18 09/26/22 09:30 BP 95/58 09/26/22 07:16 Pulse Ox 92 L 09/26/22 07:16 FiO2 Intake & Output 09/25/22 09/26/22 09/26/22 18:59 06:59 18:59 Output Total 1800 1400 Balance -1800 -1400 Output: Urine 1800 1400 Uretheral (Vasques) 850 Stool 0 Other: Voiding Method Indwelling Catheter Indwelling Catheter # Voids 1 2 - Labs CBC & Chem 7: 09/26/22 05:51 09/26/22 05:51 Labs: Abnormal Lab Results - Last 24 Hours (Table) 09/25/22 09/26/22 09/26/22 Range/Units 07:51 05:51 05:51 WBC 3.78 L 3.36 L (4.50-10.00) X 10*3/uL RBC 3.61 L 3.51 L (4.10-5.20) X 10*6/uL Hgb 10.8 L 10.5 L (12.0-15.0) g/dL Hct 33.3 L 32.2 L (37.2-46.3) % RDW 14.6 H (11.5-14.5) % Plt Count 99 L 96 L (140-440) X 10*3/uL Plt Count Comment DECREASED A DECREASED A MPV 14.2 H 13.8 H (9.5-12.2) fL Lymphocytes # 0.53 L 0.85 L (0.90-5.00) X 10*3/uL Eosinophils # 0.01 L 0.02 L (0.04-0.35) X 10*3/uL PT 29.9 H (9.9-11.9) sec INR 2.75 H (0.90-1.11) Carbon Dioxide (20.0-27.5) mmol/L Est GFR (CKD-EPI)AfAm (60.0-200.0) Est GFR (CKD-EPI)NonAf (60.0-200.0) Calcium (8.7-10.3) mg/dL C-Reactive Protein (0.00-0.80) mg/dL Total Protein (6.2-8.2) g/dL Albumin (3.8-4.9) g/dL Procalcitonin (0.02-0.09) ng/mL 09/26/22 09/26/22 Range/Units 05:51 05:51 WBC (4.50-10.00) X 10*3/uL RBC (4.10-5.20) X 10*6/uL Hgb (12.0-15.0) g/dL Hct (37.2-46.3) % RDW (11.5-14.5) % Plt Count (140-440) X 10*3/uL Plt Count Comment MPV (9.5-12.2) fL Lymphocytes # (0.90-5.00) X 10*3/uL Eosinophils # (0.04-0.35) X 10*3/uL PT (9.9-11.9) sec INR (0.90-1.11) Carbon Dioxide 19.1 L (20.0-27.5) mmol/L Est GFR (CKD-EPI)AfAm 40.8 L (60.0-200.0) Est GFR (CKD-EPI)NonAf 35.2 L (60.0-200.0) Calcium 7.9 L (8.7-10.3) mg/dL C-Reactive Protein 9.20 H (0.00-0.80) mg/dL Total Protein 4.8 L (6.2-8.2) g/dL Albumin 3.2 L (3.8-4.9) g/dL Procalcitonin 0.19 H (0.02-0.09) ng/mL Microbiology - Last 24 Hours (Table) 09/23/22 20:40 Blood Culture - Preliminary Blood No Growth after 48 hours 09/23/22 20:55 Blood Culture - Preliminary Blood No Growth after 48 hours
--- NOTE | 2022-09-26 19:31 | P.PN ---
Subjective Progress Note Date: 09/26/22 Principal diagnosis: Covid 19 Patient is a 67-year-old female with a past medical history significant for fibromyalgia MS CVA TIA PE sleep apnea presenting to the ER for evaluation of mental status changes and complaining of pain every where, patient did tested positive for covid 19 , patient also have CT of abdominal pain that was negative for acute abnormality. On today's evaluation that is 09/26/2022, the patient did have a low-grade fever last evening however the patient is afebrile patient is currently breathing comfortably on room air denies having any chest pain or shortness of breath occasional cough abdominal pain seemed to have improved no nausea no vomiting or diarrhea Objective - Vital Signs Vital signs: Vital Signs Temp 99.0 F 09/26/22 07:16 Pulse 65 09/26/22 09:30 Resp 18 09/26/22 09:30 BP 95/58 09/26/22 07:16 Pulse Ox 92 L 09/26/22 07:16 FiO2 Intake & Output 09/25/22 09/26/22 09/26/22 18:59 06:59 18:59 Output Total 1800 1400 Balance -1800 -1400 Output: Urine 1800 1400 Uretheral (Vasques) 850 Stool 0 Other: Voiding Method Indwelling Catheter Indwelling Catheter # Voids 1 2 - Exam GENERAL DESCRIPTION: An elderly female lying in bed in no distress RESPIRATORY SYSTEM: Unlabored breathing , decreased breath sounds at bases HEART: S1 S2 regular rate and rhythm , ABDOMEN: Soft , no tenderness - Labs CBC & Chem 7: 09/26/22 05:51 09/26/22 05:51 Labs: Abnormal Lab Results - Last 24 Hours (Table) 09/26/22 09/26/22 09/26/22 Range/Units 05:51 05:51 05:51 WBC 3.36 L (4.50-10.00) X 10*3/uL RBC 3.51 L (4.10-5.20) X 10*6/uL Hgb 10.5 L (12.0-15.0) g/dL Hct 32.2 L (37.2-46.3) % Plt Count 96 L (140-440) X 10*3/uL Plt Count Comment DECREASED A MPV 13.8 H (9.5-12.2) fL Lymphocytes # 0.85 L (0.90-5.00) X 10*3/uL Eosinophils # 0.02 L (0.04-0.35) X 10*3/uL PT 29.9 H (9.9-11.9) sec INR 2.75 H (0.90-1.11) Carbon Dioxide 19.1 L (20.0-27.5) mmol/L Est GFR (CKD-EPI)AfAm 40.8 L (60.0-200.0) Est GFR (CKD-EPI)NonAf 35.2 L (60.0-200.0) Calcium 7.9 L (8.7-10.3) mg/dL C-Reactive Protein 9.20 H (0.00-0.80) mg/dL Total Protein 4.8 L (6.2-8.2) g/dL Albumin 3.2 L (3.8-4.9) g/dL Procalcitonin (0.02-0.09) ng/mL 09/26/22 Range/Units 05:51 WBC (4.50-10.00) X 10*3/uL RBC (4.10-5.20) X 10*6/uL Hgb (12.0-15.0) g/dL Hct (37.2-46.3) % Plt Count (140-440) X 10*3/uL Plt Count Comment MPV (9.5-12.2) fL Lymphocytes # (0.90-5.00) X 10*3/uL Eosinophils # (0.04-0.35) X 10*3/uL PT (9.9-11.9) sec INR (0.90-1.11) Carbon Dioxide (20.0-27.5) mmol/L Est GFR (CKD-EPI)AfAm (60.0-200.0) Est GFR (CKD-EPI)NonAf (60.0-200.0) Calcium (8.7-10.3) mg/dL C-Reactive Protein (0.00-0.80) mg/dL Total Protein (6.2-8.2) g/dL Albumin (3.8-4.9) g/dL Procalcitonin 0.19 H (0.02-0.09) ng/mL Microbiology - Last 24 Hours (Table) 09/23/22 20:40 Blood Culture - Preliminary Blood No Growth after 48 hours 09/23/22 20:55 Blood Culture - Preliminary Blood No Growth after 48 hours Assessment and Plan (1) COVID-19 Current Visit: Yes Status: Acute Code(s): U07.1 - COVID-19 SNOMED Code(s): 115790083 Plan: 1patient presented to hospital with generalized weakness and generalized body aches in this patient who did have a low-grade fever patient also tested positive for COVID could be related to her COVID-19 infection however the chest x-ray did not show any significant pneumonia patient also complaining of abdominal pain however no tenderness on examination CT abdominal pelvis did not show any acute abnormality 2-the patient inflammatory markers are mildly elevated 3-treatment for COVID should be mostly supportive as the patient is current not hypoxic and chest x-ray with no pneumonia no need for steroids or remdesivir, patient to continue with the zinc ascorbic acid INR is therapeutic Time with Patient: Less than 30
[2022-09-27] MEDS: PANTOPRAZOLE 40 MG TABLET PO SCH (06:44)
[2022-09-27] MEDS: LEVOTHYROXINE 75 MCG TAB PO SCH (06:44)
--- NOTE | 2022-09-27 07:59 | XR ---
EXAMINATION TYPE: XR chest 1V portable DATE OF EXAM: 09/27/2022 CLINICAL HISTORY: Difficulty breathing and pneumonia progress study. TECHNIQUE: Single AP portable upright view of the chest is obtained. COMPARISON: Chest x-ray from 4 days earlier FINDINGS: Low lung volumes with left greater than right bibasilar opacities remain present. Upper jesus ngs remain clear. Mild cardiomegaly is redemonstrated. Colonic interposition below right hemidiaphrag m is redemonstrated. IMPRESSION: Low lung volumes and cardiomegaly with left greater than right bibasilar acute infiltrate and/or atelectasis redemonstrated. No significant change from most recent x-ray.
[2022-09-27] MEDS: METHYLPHENIDATE HCL 10 MG TAB PO SCH ×2 (09:58→19:27)
[2022-09-27] MEDS: POTASSIUM CHLORIDE ER 20 MEQ TAB.ER PO SCH ×2 (09:58→19:27)
[2022-09-27] MEDS: FUROSEMIDE 40 MG TAB PO SCH ×2 (09:58→14:33)
[2022-09-27] MEDS: CHOLECALCIFEROL 25 MCG (1000 IU) TABLET PO SCH (09:58)
[2022-09-27] MEDS: ZINC SULFATE 220 MG CAP PO SCH (09:58)
[2022-09-27] MEDS: PREGABALIN 100 MG CAP PO SCH ×4 (09:58→19:27)
[2022-09-27] MEDS: ACETAMINOPHEN TAB 325 MG TAB PO PRN ×2 (09:58→19:31)
[2022-09-27] MEDS: FAMOTIDINE 20 MG TAB PO SCH (09:59)
[2022-09-27] MEDS: MONTELUKAST 10 MG TAB PO SCH (09:59)
[2022-09-27] MEDS: ASCORBIC ACID 500 MG TAB PO SCH (09:59)
[2022-09-27] MEDS: BACLOFEN 10 MG TAB PO SCH (09:59)
[2022-09-27] MEDS: SODIUM CHLORIDE 0.9% 1,000 ML IV SCH ×2 (09:59→19:27)
[2022-09-27] MEDS: FLUTICASONE 50MCG/SPRAY NASAL 16GM EA NOSTRIL SCH ×2 (10:09→19:27)
--- NOTE | 2022-09-27 12:05 | CDI ---
Documentation Clarification Form Date: 09/27/2022 11:32:44 AM From: Sarah Patel RN, CCDS Admit Date: 09/24/2022 12:05:00 AM Patient Name: Huong Cooper Visit Number: [id number] Discharge Date: ATTENTION: The Clinical Documentation Specialists (CDI) and [facility] Coding Staff appreciate your assistance in clarifying documentation. Please respond to the clarification below the line at the bottom and electronically sign. The CDI & [facility] Coding staff will review the response and follow-up if needed. Please note: Queries are made part of the Legal Health Record. If you have any questions, please contact the author of this message via ITS. Dr. Sarah Paredes Your patient has the documented in the ED assessment, H/P and subsequent progress note. Additional clarification regarding the etiology/cause of this symptom is requested. History/Risk Factors: CVA, Fibromyalgia, Multiple Sclerosis, Pulmonary Embolus Clinical Indicators: 67-year-old female presented to hospital with generalized weakness, pain everywhere, altered mental status. In ED patient is arousable to tactile stimulus. 09/24 Labs: WBC 5.0, PT 40, BUN 33, and CR 1.35 09/25 COVID-19 Detected 09/23 CT brain: Encephalomalacia left cerebral hemisphere without change and related to old infarct. No hemorrhage. 09/23 CXR: Atelectasis at the lung bases and decreased inspiration compared to old exam. Treatment: Neurological assessment per protocol Assist with ADLs Please clarify the etiology of the symptom of Altered Mental Status: [ xxx ] Metabolic Encephalopathy due to [insert cause of encephalopathy] acute COVID-19 infection on top of history of old massive stroke [ ] Other condition (please specify) [ ] Unable to determine (Template Last Revised: August 2020) MTDD
--- NOTE | 2022-09-27 16:28 | P.PN ---
Subjective Progress Note Date: 09/27/22 Huong Cooper, is a 67-year-old female that presented to [facility] emergency room with a chief complaint of mental status changes and generalized pain, patient was also complaining of abdominal pain and episodes of vomiting. Patient is a known history of stroke in the past and questionable history of multiple sclerosis, she usually requires 24 hour care which is provided by her , however her is hospitalized at this time and her condition started to worsen, eventually she was brought into emergency room by her family. She was evaluated in the emergency room vital examination on presentation revealed a temperature of 98.8 pulse 86 respiration 18 blood pressure 113/60 pulse ox 88% on room air Laboratory data revealed a white blood count of 5.0 hemoglobin 13.5 platelet count 126 INR of 4.2 sodium 146 potassium 3.7 chloride 110 BUN 33 creatinine 1.35 Testing in the emergency room revealed chest x-ray done in the emergency room revealed evidence of atelectasis at the lung bases, otherwise no acute abnormality, computed tomography scan of the brain done without contrast in the emergency room revealed encephalomalacia left cerebral hemisphere without change and related to old infarct, no evidence of hemorrhage. EKG done in the emergency room revealed sinus rhythm with occasional ventricular premature complexes. Patient was admitted to medical floor for further evaluation and treatment. Past medical history is significant for history of left hemispheric stroke with right sided weakness, patient has a known diagnosis of multiple sclerosis, however neurology consultation on previous admission doubted this diagnosis, patient was referred to [facility] neurology department for evaluation, she recently had an MRI of the brain and cervical and thoracic spine MRI, history of hypothyroidism, history of lower extremity DVT maintained on Coumadin On 09/25/2022 patient was seen and examined on the medical floor she is alert and oriented 3 in no distress she has low-grade fever with temperature of 100.5, she is also complaining of abdominal pain, otherwise she denies any complaints at this time, computed tomography scan of the abdomen and pelvis revealed, there is bladder distention otherwise no apparent abnormality, will check amylase and lipase, awaiting consult from general surgery, there is no clear source of infection, will check blood culture and consult infectious disease. On 09/26/2022 patient was seen and examined on the medical floor she is alert and oriented 3 in no distress, she is also complaining of abdominal pain, othe rwise she denies any complaints at this time, there is no fever or chills no headache or dizziness no chest pain no shortness of breath no cough no nausea or vomiting no diarrhea and no urinary symptoms computed tomography scan of the abdomen and pelvis revealed, there is bladder distention otherwise no apparent abnormality, patient tested positive for COVID-19 yesterday, infectious disease and surgical consultation reviewed. On 09/27/2022 patient was seen and examined on the medical floor she is alert and oriented 3 in no distress she is still complaining of generalized pain and severe fatigue , she is also complaining of cough at this time , otherwise she denies any complaints, there is no fever or chills no headache or dizziness no chest pain no nausea or vomiting no abdominal pain no diarrhea and no urinary symptoms Objective - Vital Signs Vital signs: Vital Signs Temp 97.7 F 09/27/22 14:50 Pulse 63 09/27/22 14:50 Resp 20 09/27/22 14:50 BP 113/66 09/27/22 14:50 Pulse Ox 94 L 09/27/22 14:50 FiO2 Intake & Output 09/26/22 09/27/22 09/27/22 18:59 06:59 18:59 Intake Total 400 Output Total 1900 1375 950 Balance -1900 -1375 -550 Intake: Oral 400 Output: Urine 1900 1375 950 Uretheral (Vasques) 950 Stool 0 Other: Voiding Method Indwelling Catheter Indwelling Catheter Indwelling Catheter - Exam In general patient is alert and oriented x 3 in no distress HEENT head normocephalic and atraumatic Neck is supple no JVD no goiter no lymphadenopathy no carotid bruit Chest examination is clear to auscultation no crackles no wheezing Cardiac exam reveals regular heart sounds S1 and S2 no gallops no murmurs Abdomen is soft, with generalized tenderness no organomegaly with normal bowel sounds Extremity exam reveals no edema no cyanosis or clubbing Neurological examination reveals no acute gross focal deficits, patient has generalized right sided weakness. - Labs CBC & Chem 7: 09/26/22 05:51 09/26/22 05:51 Labs: Microbiology - Last 24 Hours (Table) 09/23/22 20:40 Blood Culture - Preliminary Blood No Growth after 72 hours 09/23/22 20:55 Blood Culture - Preliminary Blood No Growth after 72 hours Assessment and Plan Plan: Acute mental status change Abdominal pain and vomiting Dehydration with acute kidney injury with elevated BUN and creatinine Febrile illness was positive COVID-19 PCR Coagulopathy with elevated INR Known history of stroke in the past Underlying history of hypothyroidism Underlying history of peripheral neuropathy At this time patient was seen and examined She will be admitted to medical floor Hold Coumadin recheck INR Gentle hydration will normal saline at 50 mL per Computed tomography scan of the abdomen and pelvis with oral contrast without IV contrast Will follow closely
--- NOTE | 2022-09-27 21:04 | P.PN ---
Subjective Progress Note Date: 09/27/22 Principal diagnosis: Covid 19 Patient is a 67-year-old female with a past medical history significant for fibromyalgia MS CVA TIA PE sleep apnea presenting to the ER for evaluation of mental status changes and complaining of pain every where, patient did tested positive for covid 19 , patient also have CT of abdominal pain that was negative for acute abnormality. On today's evaluation that is 09/27/2022, the patient is afebrile this morning, patient is breathing comfortably on room air, the patient denies having any chest pain or shortness of breath occasional cough abdominal pain seemed to have improved no nausea no vomiting or diarrhea Objective - Vital Signs Vital signs: Vital Signs Temp 98.8 F 09/27/22 08:06 Pulse 71 09/27/22 09:13 Resp 20 09/27/22 09:13 BP 116/68 09/27/22 08:06 Pulse Ox 90 L 09/27/22 08:06 FiO2 Intake & Output 09/26/22 09/27/22 09/27/22 18:59 06:59 18:59 Intake Total 200 Output Total 1900 1375 Balance -1900 -1375 200 Intake: Oral 200 Output: Urine 1900 1375 Stool 0 Other: Voiding Method Indwelling Catheter Indwelling Catheter Indwelling Catheter - Exam GENERAL DESCRIPTION: An elderly female lying in bed in no distress RESPIRATORY SYSTEM: Unlabored breathing , decreased breath sounds at bases HEART: S1 S2 regular rate and rhythm , ABDOMEN: Soft , no tenderness - Labs CBC & Chem 7: 09/26/22 05:51 09/26/22 05:51 Labs: Microbiology - Last 24 Hours (Table) 09/23/22 20:40 Blood Culture - Preliminary Blood No Growth after 72 hours 09/23/22 20:55 Blood Culture - Preliminary Blood No Growth after 72 hours Assessment and Plan (1) COVID-19 Current Visit: Yes Status: Acute Code(s): U07.1 - COVID-19 SNOMED Code(s): 393170904 Plan: 1patient presented to hospital with generalized weakness and generalized body aches in this patient who did have a low-grade fever patient also tested posi tive for COVID could be related to her COVID-19 infection however the chest x- ray did not show any significant pneumonia patient also complaining of abdominal pain however no tenderness on examination CT abdominal pelvis did not show any acute abnormality 2-the patient inflammatory markers are mildly elevated with the procalcitonin is 0.19 3-treatment for COVID should be mostly supportive , however the patient chest x- ray showing acute infiltrate with concern for possible bacterial pneumonia with elevated pro-calcitonin we will go ahead and add Unasyn try to obtain a sputum and monitor clinical course closely Time with Patient: Less than 30
[2022-09-27] MEDS: AMPICILLIN-SULBACTAM 3 GM in SODIUM CHLORIDE 0.9% 100 ML IVPB SCH (23:34)
[2022-09-28] MEDS: HYDROcodone/APAP 10-325MG 1 EACH TAB PO PRN (02:37)
[2022-09-28] MEDS: LEVOTHYROXINE 75 MCG TAB PO SCH (06:02)
[2022-09-28] MEDS: PANTOPRAZOLE 40 MG TABLET PO SCH (06:02)
[2022-09-28] MEDS: AMPICILLIN-SULBACTAM 3 GM in SODIUM CHLORIDE 0.9% 100 ML IVPB SCH ×3 (06:03→16:48)
[2022-09-28] MEDS: ACETAMINOPHEN TAB 325 MG TAB PO PRN ×2 (06:04→16:48)
[2022-09-28 07:24] LABS: INR 1.9 (<1.2); Partial Thromboplastin Time 38.6 sec (22.0-30.0)
[2022-09-28] MEDS: BACLOFEN 10 MG TAB PO SCH (08:50)
[2022-09-28] MEDS: CHOLECALCIFEROL 25 MCG (1000 IU) TABLET PO SCH (08:50)
[2022-09-28] MEDS: FAMOTIDINE 20 MG TAB PO SCH (08:50)
[2022-09-28] MEDS: METHYLPHENIDATE HCL 10 MG TAB PO SCH ×2 (08:50→20:44)
[2022-09-28] MEDS: PREGABALIN 100 MG CAP PO SCH ×4 (08:50→20:45)
[2022-09-28] MEDS: FUROSEMIDE 40 MG TAB PO SCH ×2 (08:51→16:47)
[2022-09-28] MEDS: POTASSIUM CHLORIDE ER 20 MEQ TAB.ER PO SCH ×2 (08:51→20:45)
[2022-09-28] MEDS: MONTELUKAST 10 MG TAB PO SCH (08:51)
[2022-09-28] MEDS: ZINC SULFATE 220 MG CAP PO SCH (08:51)
[2022-09-28] MEDS: ASCORBIC ACID 500 MG TAB PO SCH (08:51)
--- NOTE | 2022-09-28 11:53 | P.PN ---
Subjective Progress Note Date: 09/28/22 Huong Cooper, is a 67-year-old female that presented to [facility] emergency room with a chief complaint of mental status changes and generalized pain, patient was also complaining of abdominal pain and episodes of vomiting. Patient is a known history of stroke in the past and questionable history of multiple sclerosis, she usually requires 24 hour care which is provided by her , however her is hospitalized at this time and her condition started to worsen, eventually she was brought into emergency room by her family. She was evaluated in the emergency room vital examination on presentation revealed a temperature of 98.8 pulse 86 respiration 18 blood pressure 113/60 pulse ox 88% on room air Laboratory data revealed a white blood count of 5.0 hemoglobin 13.5 platelet count 126 INR of 4.2 sodium 146 potassium 3.7 chloride 110 BUN 33 creatinine 1.35 Testing in the emergency room revealed chest x-ray done in the emergency room revealed evidence of atelectasis at the lung bases, otherwise no acute abnormality, computed tomography scan of the brain done without contrast in the emergency room revealed encephalomalacia left cerebral hemisphere without change and related to old infarct, no evidence of hemorrhage. EKG done in the emergency room revealed sinus rhythm with occasional ventricular premature complexes. Patient was admitted to medical floor for further evaluation and treatment. Past medical history is significant for history of left hemispheric stroke with right sided weakness, patient has a known diagnosis of multiple sclerosis, however neurology consultation on previous admission doubted this diagnosis, patient was referred to [facility] neurology department for evaluation, she recently had an MRI of the brain and cervical and thoracic spine MRI, history of hypothyroidism, history of lower extremity DVT maintained on Coumadin On 09/25/2022 patient was seen and examined on the medical floor she is alert and oriented 3 in no distress she has low-grade fever with temperature of 100.5, she is also complaining of abdominal pain, otherwise she denies any complaints at this time, computed tomography scan of the abdomen and pelvis revealed, there is bladder distention otherwise no apparent abnormality, will check amylase and lipase, awaiting consult from general surgery, there is no clear source of infection, will check blood culture and consult infectious disease. On 09/26/2022 patient was seen and examined on the medical floor she is alert and oriented 3 in no distress, she is also complaining of abdominal pain, othe rwise she denies any complaints at this time, there is no fever or chills no headache or dizziness no chest pain no shortness of breath no cough no nausea or vomiting no diarrhea and no urinary symptoms computed tomography scan of the abdomen and pelvis revealed, there is bladder distention otherwise no apparent abnormality, patient tested positive for COVID-19 yesterday, infectious disease and surgical consultation reviewed. On 09/27/2022 patient was seen and examined on the medical floor she is alert and oriented 3 in no distress she is still complaining of generalized pain and severe fatigue , she is also complaining of cough at this time , otherwise she denies any complaints, there is no fever or chills no headache or dizziness no chest pain no nausea or vomiting no abdominal pain no diarrhea and no urinary symptoms On 09/28/2022 patient is alert and oriented 3 resting comfortably in bed still complaining of some abdominal discomfort. Per nursing staff patient has not had bowel movement. Will add Colace to patient's regime. Surgical services have evaluated patient and signed off. Patient has been started on IV Unasyn per infectious disease her condition for possible pneumonia Objective - Vital Signs Vital signs: Vital Signs Temp 98.6 F 09/28/22 07:31 Pulse 56 L 09/28/22 08:51 Resp 18 09/28/22 08:51 BP 108/66 09/28/22 07:31 Pulse Ox 94 L 09/28/22 07:31 FiO2 Intake & Output 09/27/22 09/28/22 09/28/22 18:59 06:59 18:59 Intake Total 700 1060 Output Total 2350 550 Balance -1650 510 Intake: Intake, IV Titration 100 Amount Ampicillin-Sulbactam 3 gm 100 In Sodium Chloride 0.9% 100 ml @ 200 mls/hr IVPB Q6HR [facility] Rx#:[id number] Oral 700 960 Output: Urine 2350 550 Uretheral ([place]) 950 Stool 0 Other: Voiding Method Indwelling Catheter Indwelling Catheter Indwelling Catheter - Exam In general patient is alert and oriented x 3 in no distress HEENT head normocephalic and atraumatic Neck is supple no JVD no goiter no lymphadenopathy no carotid bruit Chest examination is clear to auscultation no crackles no wheezing Cardiac exam reveals regular heart sounds S1 and S2 no gallops no murmurs Abdomen is soft, with generalized tenderness no organomegaly with normal bowel sounds Extremity exam reveals no edema no cyanosis or clubbing Neurological examination reveals no acute gross focal deficits, patient has generalized right sided weakness. - Labs CBC & Chem 7: 09/26/22 05:51 09/26/22 05:51 Labs: Abnormal Lab Results - Last 24 Hours (Table) 09/28/22 Range/Units 05:46 PT 19.0 H (9.0-12.0) sec INR 1.9 H (<1.2) APTT 38.6 H (22.0-30.0) sec Microbiology - Last 24 Hours (Table) 09/23/22 20:40 Blood Culture - Preliminary Blood No Growth after 96 hours 09/23/22 20:55 Blood Culture - Preliminary Blood No Growth after 96 hours Assessment and Plan Plan: Acute mental status change Possible pneumonia. Patient started on IV Unasyn Abdominal pain and vomiting Dehydration with acute kidney injury with elevated BUN and creatinine Febrile illness was positive COVID-19 PCR Coagulopathy with elevated INR Known history of stroke in the past Underlying history of hypothyroidism Underlying history of peripheral neuropathy Constipation Colace added At this time patient was seen and examined She will be admitted to medical floor Hold Coumadin recheck INR Gentle hydration will normal saline at 50 mL per Computed tomography scan of the abdomen and pelvis with oral contrast without IV contrast Will follow closely
[2022-09-28 12:56] LABS: ALT 16 U/L (4-34); AST 21 U/L (14-36); African American GFR (CKD) 60 (>60 ml/min/1.73 sqM); Albumin 2.7 g/dL (3.5-5.0); Albumin/Globulin Ratio 1.1; Alkaline Phosphatase 79 U/L (38-126); Anion Gap 5 mmol/L; Blood Urea Nitrogen 17 mg/dL (7-17); Carbon Dioxide 30 mmol/L (22-30); Chloride 105 mmol/L (98-107); Globulin 2.4 g/dL; Glucose 118 mg/dL (74-99); Non-African American GFR(CKD) 52 (>60 ml/min/1.73 sqM); Potassium 3.5 mmol/L (3.5-5.1); Sodium 140 mmol/L (137-145); Total Bilirubin 0.5 mg/dL (0.2-1.3); Total Protein 5.1 g/dL (6.3-8.2)
[2022-09-28 13:19] LABS: Basophils % (A) 1 %; Eosinophils # (A) 0.1 k/uL (0-0.7); Eosinophils % (A) 2 %; HCT 29.4 % (34.0-46.0); HGB 10.3 gm/dL (11.4-16.0); Lymphocytes # (A) 0.6 k/uL (1.0-4.8); Lymphocytes % (A) 17 %; MCH 31.3 pg (25.0-35.0); MCHC 35.1 g/dL (31.0-37.0); MCV 89.3 fL (80.0-100.0); Mean Platelet Volume 13.5; Monocytes # (A) 0.2 k/uL (0-1.0); Monocytes % (A) 6 %; Neutrophils # (A) 2.3 k/uL (1.3-7.7); Neutrophils % (A) 70 %; Platelet Count 108 k/uL (150-450); Poikilocytosis Slight; RBC 3.29 m/uL (3.80-5.40); RDW 13.9 % (11.5-15.5); WBC 3.3 k/uL (3.8-10.6)
--- NOTE | 2022-09-28 14:25 | P.PN ---
Subjective Progress Note Date: 09/28/22 Principal diagnosis: Covid 19 Patient is a 67-year-old female with a past medical history significant for fibromyalgia MS CVA TIA PE sleep apnea presenting to the ER for evaluation of mental status changes and complaining of pain every where, patient did tested positive for covid 19 , patient also have CT of abdominal pain that was negative for acute abnormality. On today's evaluation that is 09/28/2022, the patient remains to be afebrile , patient is breathing comfortably on room air, the patient denies having any chest pain or shortness of breath , the patient did have occasional cough abdominal pain seemed to have improved no nausea no vomiting or diarrhea Objective - Vital Signs Vital signs: Vital Signs Temp 98.6 F 09/28/22 07:31 Pulse 56 L 09/28/22 08:51 Resp 18 09/28/22 08:51 BP 108/66 09/28/22 07:31 Pulse Ox 94 L 09/28/22 07:31 FiO2 Intake & Output 09/27/22 09/28/22 09/28/22 18:59 06:59 18:59 Intake Total 700 1060 Output Total 2350 550 Balance -1650 510 Intake: Intake, IV Titration 100 Amount Ampicillin-Sulbactam 3 gm 100 In Sodium Chloride 0.9% 100 ml @ 200 mls/hr IVPB Q6HR [facility] Rx#:[id number] Oral 700 960 Output: Urine 2350 550 Uretheral (Vasques) 950 Stool 0 Other: Voiding Method Indwelling Catheter Indwelling Catheter Indwelling Catheter - Exam GENERAL DESCRIPTION: An elderly female lying in bed in no distress RESPIRATORY SYSTEM: Unlabored breathing , decreased breath sounds at bases HEART: S1 S2 regular rate and rhythm , ABDOMEN: Soft , no tenderness - Labs CBC & Chem 7: 09/28/22 05:46 09/28/22 05:46 Labs: Abnormal Lab Results - Last 24 Hours (Table) 09/28/22 09/28/22 Range/Units 05:46 05:46 PT 19.0 H (9.0-12.0) sec INR 1.9 H (<1.2) APTT 38.6 H (22.0-30.0) sec Creatinine 1.09 H (0.52-1.04) mg/dL Glucose 118 H (74-99) mg/dL Calcium 8.0 L (8.4-10.2) mg/dL Total Protein 5.1 L (6.3-8.2) g/dL Albumin 2.7 L (3.5-5.0) g/dL Microbiology - Last 24 Hours (Table) 09/23/22 20:40 Blood Culture - Preliminary Blood No Growth after 96 hours 09/23/22 20:55 Blood Culture - Preliminary Blood No Growth after 96 hours Assessment and Plan (1) COVID-19 Current Visit: Yes Status: Acute Code(s): U07.1 - COVID-19 SNOMED Code(s): 441909882 Plan: 1patient presented to hospital with generalized weakness and generalized body aches in this patient who did have a low-grade fever patient also tested positive for COVID could be related to her COVID-19 infection however the chest x-ray did not show any significant pneumonia patient also complaining of abdominal pain however no tenderness on examination CT abdominal pelvis did not show any acute abnormality 2-the patient inflammatory markers are mildly elevated with the procalcitonin is 0.19 3-treatment for COVID should be mostly supportive , however the patient chest x- ray showing acute infiltrate with concern for possible bacterial pneumonia with elevated pro-calcitonin , patient to continue with Unasyn we will try to obtain a sputum and monitor clinical course closely Time with Patient: Less than 30
[2022-09-28] MEDS: FLUTICASONE 50MCG/SPRAY NASAL 16GM EA NOSTRIL SCH ×2 (14:47→20:45)
[2022-09-28] MEDS ORDERED: WARFARIN 2 MG TAB PO ONE (18:00)
[2022-09-28] MEDS: SODIUM CHLORIDE 0.9% 1,000 ML IV SCH (19:23)
[2022-09-28] MEDS: DOCUSATE 100 MG CAP PO SCH (20:45)
[2022-09-29] MEDS: AMPICILLIN-SULBACTAM 3 GM in SODIUM CHLORIDE 0.9% 100 ML IVPB SCH ×3 (00:21→16:27)
[2022-09-29] MEDS: HYDROcodone/APAP 10-325MG 1 EACH TAB PO PRN (00:29)
[2022-09-29] MEDS: SODIUM CHLORIDE 0.9% 1,000 ML IV SCH (00:43)
[2022-09-29] MEDS: LEVOTHYROXINE 75 MCG TAB PO SCH (06:22)
[2022-09-29] MEDS: PANTOPRAZOLE 40 MG TABLET PO SCH (06:22)
[2022-09-29] MEDS: PREGABALIN 100 MG CAP PO SCH ×4 (07:36→21:37)
[2022-09-29] MEDS: DOCUSATE 100 MG CAP PO SCH ×2 (07:36→21:38)
[2022-09-29] MEDS: MONTELUKAST 10 MG TAB PO SCH (07:36)
[2022-09-29] MEDS: FAMOTIDINE 20 MG TAB PO SCH (07:37)
[2022-09-29] MEDS: POTASSIUM CHLORIDE ER 20 MEQ TAB.ER PO SCH ×2 (07:37→21:38)
[2022-09-29] MEDS: METHYLPHENIDATE HCL 10 MG TAB PO SCH ×2 (07:37→21:38)
[2022-09-29] MEDS: ASCORBIC ACID 500 MG TAB PO SCH (07:37)
[2022-09-29] MEDS: BACLOFEN 10 MG TAB PO SCH (07:37)
[2022-09-29] MEDS: ZINC SULFATE 220 MG CAP PO SCH (07:38)
[2022-09-29] MEDS: FUROSEMIDE 40 MG TAB PO SCH ×2 (07:38→16:27)
[2022-09-29] MEDS: CHOLECALCIFEROL 25 MCG (1000 IU) TABLET PO SCH (07:38)
[2022-09-29] MEDS: FLUTICASONE 50MCG/SPRAY NASAL 16GM EA NOSTRIL SCH ×2 (07:42→21:38)
[2022-09-29 09:58] LABS: African American GFR (CKD) 53.4 (60.0-200.0); Albumin 3.1 g/dL (3.8-4.9); Albumin/Globulin Ratio 1.55 (1.60-3.17); Anion Gap 11.1 mmol/L (10.00-18.00); BUN/Creat Ratio 11.58 Ratio (12.00-20.00); Blood Urea Nitrogen 13.9 mg/dL (9.0-27.0); Calcium 8.5 mg/dL (8.7-10.3); Carbon Dioxide 26.9 mmol/L (20.0-27.5); Non-African American GFR(CKD) 46.1 (60.0-200.0); Potassium 3.7 mmol/L (3.5-5.5); Total Bilirubin 0.5 mg/dL (0.30-1.20); Total Protein 5.1 g/dL (6.2-8.2)
[2022-09-29 11:35] LABS: INR 1.77 (0.90-1.11); Prothrombin Time 19.6 sec (9.9-11.9)
[2022-09-29 13:45] LABS: Basophils # (A) 0 X 10*3/uL (0.00-0.10); Basophils % (A) 0 %; Eosinophils # (A) 0.11 X 10*3/uL (0.04-0.35); Eosinophils % (A) 4.1 %; HCT 31.1 % (37.2-46.3); HGB 10.2 g/dL (12.0-15.0); Lymphocytes % (A) 29.6 %; MCH 29.5 pg (27.0-32.0); MCHC 32.8 g/dL (32.0-37.0); MCV 89.9 fL (80.0-97.0); Mean Platelet Volume 14.1 fL (9.5-12.2); Microcytosis (M) 2+; Monocytes # (A) 0.32 X 10*3/uL (0.20-1.00); Monocytes % (A) 11.9 %; NRBC Per 100 WBC 0 /100 WBCS (0.0-0.0); Neutrophils # (A) 1.39 X 10*3/uL (1.80-7.70); Neutrophils % (A) 51.4 %; Platelet Count 114 X 10*3/uL (140-440); RBC 3.46 X 10*6/uL (4.10-5.20); RDW 13.8 % (11.5-14.5)
[2022-09-29] MEDS: ACETAMINOPHEN TAB 325 MG TAB PO PRN (14:04)
[2022-09-29] MEDS ORDERED: WARFARIN 5 MG TAB PO ONE (18:00)
--- NOTE | 2022-09-29 18:27 | P.PN ---
Subjective Progress Note Date: 09/29/22 Principal diagnosis: Covid 19 Patient is a 67-year-old female with a past medical history significant for fibromyalgia MS CVA TIA PE sleep apnea presenting to the ER for evaluation of mental status changes and complaining of pain every where, patient did tested positive for covid 19 , patient also have CT of abdominal pain that was negative for acute abnormality. On today's evaluation that is 09/29/2022, the patient continues to be afebrile , patient is breathing comfortably on room air, the patient denies having any chest pain , the patient did have occasional cough but no sputum production, the patient abdominal pain seemed to have improved no nausea no vomiting or diarrhea Objective - Vital Signs Vital signs: Vital Signs Temp 97.4 F L 09/29/22 07:28 Pulse 62 09/29/22 08:44 Resp 16 09/29/22 08:44 BP 119/71 09/29/22 07:28 Pulse Ox 94 L 09/29/22 07:28 FiO2 Intake & Output 09/28/22 09/29/22 09/29/22 18:59 06:59 18:59 Output Total 1000 1300 Balance -1000 -1300 Output: Urine 1000 1300 Other: Voiding Method Indwelling Catheter Indwelling Catheter Indwelling Catheter - Exam GENERAL DESCRIPTION: An elderly female lying in bed in no distress RESPIRATORY SYSTEM: Unlabored breathing , decreased breath sounds at bases HEART: S1 S2 regular rate and rhythm , ABDOMEN: Soft , no tenderness - Labs CBC & Chem 7: 09/29/22 05:20 09/29/22 05:20 Labs: Abnormal Lab Results - Last 24 Hours (Table) 09/28/22 09/28/22 09/29/22 Range/Units 05:46 05:46 05:20 WBC 3.3 L (3.8-10.6) k/uL RBC 3.29 L (3.80-5.40) m/uL Hgb 10.3 L D (11.4-16.0) gm/dL Hct 29.4 L (34.0-46.0) % Plt Count 108 L (150-450) k/uL Lymphocytes # 0.6 L (1.0-4.8) k/uL PT (9.9-11.9) sec INR (0.90-1.11) Creatinine 1.09 H (0.52-1.04) mg/dL Est GFR (CKD-EPI)AfAm 53.4 L (60.0-200.0) Est GFR (CKD-EPI)NonAf 46.1 L (60.0-200.0) BUN/Creatinine Ratio 11.58 L (12.00-20.00) Ratio Glucose 118 H (74-99) mg/dL Calcium 8.0 L 8.5 L (8.4-10.2) mg/dL Total Protein 5.1 L 5.1 L (6.3-8.2) g/dL Albumin 2.7 L 3.1 L (3.5-5.0) g/dL Albumin/Globulin Ratio 1.55 L (1.60-3.17) g/dL 09/29/22 Range/Units 05:20 WBC (3.8-10.6) k/uL RBC (3.80-5.40) m/uL Hgb (11.4-16.0) gm/dL Hct (34.0-46.0) % Plt Count (150-450) k/uL Lymphocytes # (1.0-4.8) k/uL PT 19.6 H (9.9-11.9) sec INR 1.77 H (0.90-1.11) Creatinine (0.52-1.04) mg/dL Est GFR (CKD-EPI)AfAm (60.0-200.0) Est GFR (CKD-EPI)NonAf (60.0-200.0) BUN/Creatinine Ratio (12.00-20.00) Ratio Glucose (74-99) mg/dL Calcium (8.4-10.2) mg/dL Total Protein (6.3-8.2) g/dL Albumin (3.5-5.0) g/dL Albumin/Globulin Ratio (1.60-3.17) g/dL Microbiology - Last 24 Hours (Table) 09/23/22 20:40 Blood Culture - Preliminary Blood No Growth after 120 hours 09/23/22 20:55 Blood Culture - Preliminary Blood No Growth after 120 hours Assessment and Plan (1) COVID-19 Current Visit: Yes Status: Acute Code(s): U07.1 - COVID-19 SNOMED Code(s): 379883278 Plan: 1patient presented to hospital with generalized weakness and generalized body aches in this patient who did have a low-grade fever patient also tested positiv e for COVID could be related to her COVID-19 infection however the chest x-ray did not show any significant pneumonia patient also complaining of abdominal pain however no tenderness on examination CT abdominal pelvis did not show any acute abnormality 2-the patient inflammatory markers are mildly elevated with the procalcitonin is 0.19 3-treatment for COVID should be mostly supportive , however the patient chest x- ray showing acute infiltrate with concern for possible bacterial pneumonia with elevated pro-calcitonin , patient currently being treated with Unasyn we will try to obtain a sputum and monitor clinical course closely Time with Patient: Less than 30
[2022-09-30] MEDS: AMPICILLIN-SULBACTAM 3 GM in SODIUM CHLORIDE 0.9% 100 ML IVPB SCH ×2 (00:28→08:10)
[2022-09-30] MEDS: SODIUM CHLORIDE 0.9% 1,000 ML IV SCH (04:52)
[2022-09-30 06:07] LABS: INR 2.3 (<1.2); Prothrombin Time 22.8 sec (9.0-12.0)
[2022-09-30] MEDS: LEVOTHYROXINE 75 MCG TAB PO SCH (06:56)
[2022-09-30] MEDS: MONTELUKAST 10 MG TAB PO SCH (08:04)
[2022-09-30] MEDS: ZINC SULFATE 220 MG CAP PO SCH (08:04)
[2022-09-30] MEDS: FUROSEMIDE 40 MG TAB PO SCH (08:05)
[2022-09-30] MEDS: PANTOPRAZOLE 40 MG TABLET PO SCH (08:05)
[2022-09-30] MEDS: METHYLPHENIDATE HCL 10 MG TAB PO SCH (08:05)
[2022-09-30] MEDS: DOCUSATE 100 MG CAP PO SCH (08:06)
[2022-09-30] MEDS: FAMOTIDINE 20 MG TAB PO SCH (08:06)
[2022-09-30] MEDS: BACLOFEN 10 MG TAB PO SCH (08:07)
[2022-09-30] MEDS: ASCORBIC ACID 500 MG TAB PO SCH (08:07)
[2022-09-30] MEDS: PREGABALIN 100 MG CAP PO SCH ×2 (08:07→15:19)
[2022-09-30] MEDS: POTASSIUM CHLORIDE ER 20 MEQ TAB.ER PO SCH (08:09)
[2022-09-30] MEDS: FLUTICASONE 50MCG/SPRAY NASAL 16GM EA NOSTRIL SCH (08:10)
[2022-09-30] MEDS: CHOLECALCIFEROL 25 MCG (1000 IU) TABLET PO SCH (08:10)
--- NOTE | 2022-09-30 09:07 | P.PN ---
Subjective Progress Note Date: 09/29/22 Huong Cooper, is a 67-year-old female that presented to [facility] emergency room with a chief complaint of mental status changes and generalized pain, patient was also complaining of abdominal pain and episodes of vomiting. Patient is a known history of stroke in the past and questionable history of multiple sclerosis, she usually requires 24 hour care which is provided by her , however her is hospitalized at this time and her condition started to worsen, eventually she was brought into emergency room by her family. She was evaluated in the emergency room vital examination on presentation revealed a temperature of 98.8 pulse 86 respiration 18 blood pressure 113/60 pulse ox 88% on room air Laboratory data revealed a white blood count of 5.0 hemoglobin 13.5 platelet count 126 INR of 4.2 sodium 146 potassium 3.7 chloride 110 BUN 33 creatinine 1.35 Testing in the emergency room revealed chest x-ray done in the emergency room revealed evidence of atelectasis at the lung bases, otherwise no acute abnormality, computed tomography scan of the brain done without contrast in the emergency room revealed encephalomalacia left cerebral hemisphere without change and related to old infarct, no evidence of hemorrhage. EKG done in the emergency room revealed sinus rhythm with occasional ventricular premature complexes. Patient was admitted to medical floor for further evaluation and treatment. Past medical history is significant for history of left hemispheric stroke with right sided weakness, patient has a known diagnosis of multiple sclerosis, however neurology consultation on previous admission doubted this diagnosis, patient was referred to [facility] neurology department for evaluation, she recently had an MRI of the brain and cervical and thoracic spine MRI, history of hypothyroidism, history of lower extremity DVT maintained on Coumadin On 09/25/2022 patient was seen and examined on the medical floor she is alert and oriented 3 in no distress she has low-grade fever with temperature of 100.5, she is also complaining of abdominal pain, otherwise she denies any complaints at this time, computed tomography scan of the abdomen and pelvis revealed, there is bladder distention otherwise no apparent abnormality, will check amylase and lipase, awaiting consult from general surgery, there is no clear source of infection, will check blood culture and consult infectious disease. On 09/26/2022 patient was seen and examined on the medical floor she is alert and oriented 3 in no distress, she is also complaining of abdominal pain, othe rwise she denies any complaints at this time, there is no fever or chills no headache or dizziness no chest pain no shortness of breath no cough no nausea or vomiting no diarrhea and no urinary symptoms computed tomography scan of the abdomen and pelvis revealed, there is bladder distention otherwise no apparent abnormality, patient tested positive for COVID-19 yesterday, infectious disease and surgical consultation reviewed. On 09/27/2022 patient was seen and examined on the medical floor she is alert and oriented 3 in no distress she is still complaining of generalized pain and severe fatigue , she is also complaining of cough at this time , otherwise she denies any complaints, there is no fever or chills no headache or dizziness no chest pain no nausea or vomiting no abdominal pain no diarrhea and no urinary symptoms On 09/28/2022 patient is alert and oriented 3 resting comfortably in bed still complaining of some abdominal discomfort. Per nursing staff patient has not had bowel movement. Will add Colace to patient's regime. Surgical services have evaluated patient and signed off. Patient has been started on IV Unasyn per infectious disease her condition for possible pneumonia On 09/29/2022 patient is alert and oriented 3 in no distress, she is complaining of occasional cough, and generalized pain which is chronic otherwise she denies any complaints there is no fever or chills no headache or dizziness no chest pain no shortness of breath no nausea or vomiting no abdominal pain no diarrhea no urinary symptoms. Objective - Vital Signs Vital signs: Vital Signs Temp 98.4 F 09/29/22 02:05 Pulse 62 09/29/22 02:05 Resp 16 09/29/22 02:05 BP 108/67 09/29/22 02:05 Pulse Ox 95 09/29/22 02:05 FiO2 Intake & Output 09/28/22 09/29/22 09/29/22 18:59 06:59 18:59 Output Total 1000 1300 Balance -1000 -1300 Output: Urine 1000 1300 Other: Voiding Method Indwelling Catheter Indwelling Catheter - Exam In general patient is alert and oriented x 3 in no distress HEENT head normocephalic and atraumatic Neck is supple no JVD no goiter no lymphadenopathy no carotid bruit Chest examination is clear to auscultation no crackles no wheezing Cardiac exam reveals regular heart sounds S1 and S2 no gallops no murmurs Abdomen is soft, with generalized tenderness no organomegaly with normal bowel sounds Extremity exam reveals no edema no cyanosis or clubbing Neurological examination reveals no acute gross focal deficits, patient has generalized right sided weakness. - Labs CBC & Chem 7: 09/29/22 05:20 09/29/22 05:20 Labs: Abnormal Lab Results - Last 24 Hours (Table) 09/28/22 09/28/22 Range/Units 05:46 05:46 WBC 3.3 L (3.8-10.6) k/uL RBC 3.29 L (3.80-5.40) m/uL Hgb 10.3 L D (11.4-16.0) gm/dL Hct 29.4 L (34.0-46.0) % Plt Count 108 L (150-450) k/uL Lymphocytes # 0.6 L (1.0-4.8) k/uL Creatinine 1.09 H (0.52-1.04) mg/dL Glucose 118 H (74-99) mg/dL Calcium 8.0 L (8.4-10.2) mg/dL Total Protein 5.1 L (6.3-8.2) g/dL Albumin 2.7 L (3.5-5.0) g/dL Microbiology - Last 24 Hours (Table) 09/23/22 20:40 Blood Culture - Preliminary Blood No Growth after 120 hours 09/23/22 20:55 Blood Culture - Preliminary Blood No Growth after 120 hours Assessment and Plan Plan: Acute mental status change Possible pneumonia. Patient started on IV Unasyn Abdominal pain and vomiting Dehydration with acute kidney injury with elevated BUN and creatinine Febrile illness was positive COVID-19 PCR Coagulopathy with elevated INR Known history of stroke in the past Underlying history of hypothyroidism Underlying history of peripheral neuropathy Constipation Colace added At this time patient was seen and examined She will be admitted to medical floor Hold Coumadin recheck INR Gentle hydration will normal saline at 50 mL per Computed tomography scan of the abdomen and pelvis with oral contrast without IV contrast Will follow closely
[2022-09-30 09:08] VITALS: BP 102/64; PULSE 62; TEMP 98.6
[2022-09-30 10:18] VITALS: RESP 18
--- NOTE | 2022-09-30 10:41 | P.DS ---
Providers Date of admission: 09/24/22 00:05 Expected date of discharge: 09/30/22 Attending physician: Sarah Paredes Consults: 09/25/22 08:57 Consult Physician Routine Consulting Provider: Homero Glasgow Consult Reason/Comments: fever, abdominal pain Do you want consulting provider notified?: Yes Primary care physician: Stated None Hospital Course: Discharge diagnosis Acute mental status change Possible pneumonia. Patient started on IV Unasyn Abdominal pain and vomiting Dehydration with acute kidney injury with elevated BUN and creatinine Febrile illness was positive COVID-19 PCR Coagulopathy with elevated INR Known history of stroke in the past Underlying history of hypothyroidism Underlying history of peripheral neuropathy Constipation Colace added Hospital course Huong Cooper, is a 67-year-old female that presented to [facility] emergency room with a chief complaint of mental status changes and generalized pain, patient was also complaining of abdominal pain and episodes of vomiting. Patient is a known history of stroke in the past and questionable history of multiple sclerosis, she usually requires 24 hour care which is provided by her , however her is hospitalized at this time and her condition started to worsen, eventually she was brought into emergency room by her family. She was evaluated in the emergency room vital examination on presentation revealed a temperature of 98.8 pulse 86 respiration 18 blood pressure 113/60 pulse ox 88% on room air Laboratory data revealed a white blood count of 5.0 hemoglobin 13.5 platelet count 126 INR of 4.2 sodium 146 potassium 3.7 chloride 110 BUN 33 creatinine 1.35 Testing in the emergency room revealed chest x-ray done in the emergency room revealed evidence of atelectasis at the lung bases, otherwise no acute abnormality, computed tomography scan of the brain done without contrast in the emergency room revealed encephalomalacia left cerebral hemisphere without change and related to old infarct, no evidence of hemorrhage. EKG done in the emergency room revealed sinus rhythm with occasional ventricular premature complexes. Patient was admitted to medical floor for further evaluation and treatment. Past medical history is significant for history of left hemispheric stroke with right sided weakness, patient has a known diagnosis of multiple sclerosis, however neurology consultation on previous admission doubted this diagnosis, patient was referred to [facility] neurology department for evaluation, she recently had an MRI of the brain and cervical and thoracic spine MRI, history of hypothyroidism, history of lower extremity DVT maintained on Coumadin On 09/25/2022 patient was seen and examined on the medical floor she is alert and oriented 3 in no distress she has low-grade fever with temperature of 100.5, she is also complaining of abdominal pain, otherwise she denies any complaints at this time, computed tomography scan of the abdomen and pelvis revealed, there is bladder distention otherwise no apparent abnormality, will check amylase and lipase, awaiting consult from general surgery, there is no clear source of infection, will check blood culture and consult infectious disease. On 09/26/2022 patient was seen and examined on the medical floor she is alert and oriented 3 in no distress, she is also complaining of abdominal pain, otherwise she denies any complaints at this time, there is no fever or chills no headache or dizziness no chest pain no shortness of breath no cough no nausea or vomiting no diarrhea and no urinary symptoms computed tomography scan of the abdomen and pelvis revealed, there is bladder distention otherwise no apparent abnormality, patient tested positive for COVID-19 yesterday, infectious disease and surgical consultation reviewed. On 09/27/2022 patient was seen and examined on the medical floor she is alert and oriented 3 in no distress she is still complaining of generalized pain and severe fatigue , she is also complaining of cough at this time , otherwise she denies any complaints, there is no fever or chills no headache or dizziness no chest pain no nausea or vomiting no abdominal pain no diarrhea and no urinary symptoms On 09/28/2022 patient is alert and oriented 3 resting comfortably in bed still complaining of some abdominal discomfort. Per nursing staff patient has not had bowel movement. Will add Colace to patient's regime. Surgical services have evaluated patient and signed off. Patient has been started on IV Unasyn per infectious disease her condition for possible pneumonia On 09/29/2022 patient is alert and oriented 3 in no distress, she is complaining of occasional cough, and generalized pain which is chronic otherwise she denies any complaints there is no fever or chills no headache or dizziness no chest pain no shortness of breath no nausea or vomiting no abdominal pain no diarrhea no urinary symptoms. 09/30/2022 patient is alert and oriented 3. Patient to be DC'd to [facility]. Patient received Augmentin for 7 more days. Patient will be DC'd on Coumadin dose 4 mg daily recommend checking INR twice weekly and adjusting accordingly. Patient denies chest pain or shortness of breath. Patient denies nausea vomiting or diarrhea. Patient denies any urinary burning or frequency Patient Condition at Discharge: Stable Plan - Discharge Summary Discharge Rx Participant: No New Discharge Prescriptions: No Action Baclofen [Lioresal] 10 mg PO DAILY Montelukast [Singulair] 10 mg PO DAILY Furosemide [Lasix] 40 mg PO BID Potassium Chloride 20 meq PO BID Pantoprazole Sodium [Protonix] 40 mg PO DAILY Methylphenidate HCl [Ritalin] 20 mg PO BID Levothyroxine Sodium [Synthroid] 75 mcg PO DAILY HYDROcodone/APAP 10-325MG [[place] 10-325] 1 tab PO BID PRN PRN Reason: Pain Fluticasone Nasal [place] [Flonase Nasal [place]] 1 spray EA NOSTRIL BID Pregabalin [Lyrica] 100 mg PO BID@1400,1700 Pregabalin [Lyrica] 200 mg PO BID@00,1999 Warfarin [Coumadin] 5 mg PO MOTUWETHFRSA Cholecalciferol [Vitamin D3 (25 Mcg = 1000 Iu)] 50 mcg PO DAILY Discharge Medication List Baclofen [Lioresal] 10 mg PO DAILY 11/08/13 [History] Furosemide [Lasix] 40 mg PO BID 11/08/13 [History] Montelukast [Singulair] 10 mg PO DAILY 11/08/13 [History] Pantoprazole Sodium [Protonix] 40 mg PO DAILY 11/08/13 [History] Potassium Chloride 20 meq PO BID 11/08/13 [History] Methylphenidate HCl [Ritalin] 20 mg PO BID 11/18/15 [History] Levothyroxine Sodium [Synthroid] 75 mcg PO DAILY 03/10/22 [History] Cholecalciferol [Vitamin D3 (25 Mcg = 1000 Iu)] 50 mcg PO DAILY 09/23/22 [History] Fluticasone Nasal [place] [Flonase Nasal [place]] 1 spray EA NOSTRIL BID 09/23/22 [History] HYDROcodone/APAP 10-325MG [[place] 10-325] 1 tab PO BID PRN 09/23/22 [History] Pregabalin [Lyrica] 100 mg PO BID@1400,1700 09/23/22 [History] Pregabalin [Lyrica] 200 mg PO BID@09,199909/23/22 [History] Warfarin [Coumadin] 5 mg PO MOTUWETHFRSA 09/23/22 [History]
[2022-09-30 11:22] LABS: African American GFR (CKD) 52.3 (60.0-200.0); Albumin 3.1 g/dL (3.8-4.9); Albumin/Globulin Ratio 1.62 (1.60-3.17); Anion Gap 9.4 mmol/L (10.00-18.00); BUN/Creat Ratio 11.07 Ratio (12.00-20.00); Blood Urea Nitrogen 13.5 mg/dL (9.0-27.0); Calcium 8.5 mg/dL (8.7-10.3); Carbon Dioxide 29.3 mmol/L (20.0-27.5); Globulin 1.9 g/dL (1.6-3.3); Non-African American GFR(CKD) 45.2 (60.0-200.0); Potassium 3.3 mmol/L (3.5-5.5); Total Bilirubin 0.3 mg/dL (0.30-1.20); Total Protein 5.1 g/dL (6.2-8.2)
[2022-09-30 13:41] LABS: Basophils # (A) 0.02 X 10*3/uL (0.00-0.10); Basophils % (A) 0.6 %; Eosinophils # (A) 0.12 X 10*3/uL (0.04-0.35); Eosinophils % (A) 3.7 %; HCT 31.1 % (37.2-46.3); Immature Grans, Automated 4.4 %; Lymphocytes # (A) 1.01 X 10*3/uL (0.90-5.00); Lymphocytes % (A) 31.5 %; MCH 29.2 pg (27.0-32.0); MCHC 32.2 g/dL (32.0-37.0); MCV 90.7 fL (80.0-97.0); Mean Platelet Volume 13.4 fL (9.5-12.2); Monocytes # (A) 0.34 X 10*3/uL (0.20-1.00); Monocytes % (A) 10.6 %; NRBC Per 100 WBC 0 /100 WBCS (0.0-0.0); Neutrophils # (A) 1.58 X 10*3/uL (1.80-7.70); Neutrophils % (A) 49.2 %; Platelet Count 135 X 10*3/uL (140-440); RBC 3.43 X 10*6/uL (4.10-5.20); RDW 13.7 % (11.5-14.5); WBC 3.21 X 10*3/uL (4.50-10.00)
[2022-09-30 13:42] LABS: Crenated RBC 2+
[2022-09-30 14:12] VITALS: BMI 32.5
[2022-09-30] MEDS ORDERED: WARFARIN 2.5 MG TAB PO ONE (18:00)
== END 2022-09-30 15:51 | DRG 177 ==
LOC: EC 20:20 → OBSVTOIN 09-24 00:05 → 5NMEDONC 09-24 00:05 → 4SSUR 09-25 13:10
PROVIDERS: ADMIT Internal Medicine; ATTEND Internal Medicine
PROC: 3E0F7SF Introduction of Other Gas into Respiratory Tract, Via Natural or Artificial Opening (ICD-10-PCS; principal; 2022-09-24)
DX: U07.1 COVID-19 (principal); G93.41 Metabolic encephalopathy; J15.9 Unspecified bacterial pneumonia; I69.351 Hemiplegia and hemiparesis following cerebral infarction affecting right dominant side; N17.9 Acute kidney failure, unspecified; J98.11 Atelectasis; D68.9 Coagulation defect, unspecified; T45.515A Adverse effect of anticoagulants, initial encounter; E03.9 Hypothyroidism, unspecified; Z79.890 Hormone replacement therapy; E86.0 Dehydration; F32.A Depression, unspecified; G35 Multiple sclerosis; G89.29 Other chronic pain; I69.320 Aphasia following cerebral infarction; M79.7 Fibromyalgia; X58.XXXA Exposure to other specified factors, initial encounter; K59.00 Constipation, unspecified; I25.2 Old myocardial infarction; I10 Essential (primary) hypertension; Z79.01 Long term (current) use of anticoagulants; Z79.899 Other long term (current) drug therapy; Z86.711 Personal history of pulmonary embolism; G93.89 Other specified disorders of brain; Z86.718 Personal history of other venous thrombosis and embolism; Z90.710 Acquired absence of both cervix and uterus; Z87.19 Personal history of other diseases of the digestive system; Z90.49 Acquired absence of other specified parts of digestive tract; Z91.048 Other nonmedicinal substance allergy status
CPT/HCPCS: 36415; 70450; 71045; 74176; 80053; 81003; 82150; 83615; 83690; 84145; 84484; 85025; 85610; 85730; 86140; 87040; 87502; 87635; 93005; 94760; 96360; 96361; 99285

== ENCOUNTER 2023-05-04 13:12 | Emergency (ER) | payer MEDICARE ==
[2023-05-04 14:11] VITALS: TEMP 97.6
[2023-05-04 14:25] LABS: INR 2.4 (<1.2); Partial Thromboplastin Time 32.6 sec (22.0-30.0); Prothrombin Time 24.2 sec (10.0-12.5)
[2023-05-04 14:28] LABS: ALT 21 U/L (4-34); AST 23 U/L (14-36); African American GFR (CKD) 45 (>60 ml/min/1.73 sqM); Albumin 4.2 g/dL (3.5-5.0); Alkaline Phosphatase 119 U/L (38-126); Anion Gap 11 mmol/L; Blood Urea Nitrogen 19 mg/dL (7-17); Calcium 9.4 mg/dL (8.4-10.2); Carbon Dioxide 24 mmol/L (22-30); Chloride 108 mmol/L (98-107); Glucose 121 mg/dL (74-99); Non-African American GFR(CKD) 39 (>60 ml/min/1.73 sqM); Potassium 3.8 mmol/L (3.5-5.1); Sodium 143 mmol/L (137-145); Total Bilirubin 1.1 mg/dL (0.2-1.3); Total Protein 6.9 g/dL (6.3-8.2)
[2023-05-04 14:34] LABS: Basophils % (A) 0 %; Eosinophils # (A) 0.1 k/uL (0-0.7); Eosinophils % (A) 2 %; HCT 43.3 % (34.0-46.0); Lymphocytes # (A) 1.4 k/uL (1.0-4.8); Lymphocytes % (A) 22 %; MCH 30.4 pg (25.0-35.0); MCHC 34.7 g/dL (31.0-37.0); MCV 87.4 fL (80.0-100.0); Mean Platelet Volume 10.7; Monocytes # (A) 0.4 k/uL (0-1.0); Monocytes % (A) 6 %; Neutrophils # (A) 4.2 k/uL (1.3-7.7); Neutrophils % (A) 68 %; Platelet Count 122 k/uL (150-450); RBC 4.95 m/uL (3.80-5.40); RDW 13.7 % (11.5-15.5); WBC 6.2 k/uL (3.8-10.6)
--- NOTE | 2023-05-04 18:30 | ED ---
GI Bleed HPI - General Chief complaint: GI Bleed Stated complaint: abd pain Time Seen by Provider: 05/04/23 17:37 Source: patient Mode of arrival: ambulatory Limitations: no limitations - History of Present Illness Initial comments: 67-year-old female who presents to the emergency department reporting dark stools for the past few days. Her last bowel movement was yesterday. They state that it is formed however dark. She does take Coumadin for a history of PE. Patient also takes iron supplementation. She denies any abdominal pain. No nausea or vomiting. No history of ulcers or GI bleeding. She denies any lightheadedness or dizziness. They called their primary care physician who recommended that they get evaluated the emergency department. She denies any fevers. No issues urinating. No other alleviating, precipitating or modifying factors - Related Data Home Medications Medication Instructions Recorded Confirmed Baclofen [Lioresal] 10 mg PO DAILY 11/08/13 09/23/22 Furosemide [Lasix] 40 mg PO BID 11/08/13 09/23/22 Montelukast [Singulair] 10 mg PO DAILY 11/08/13 09/23/22 Pantoprazole Sodium [Protonix] 40 mg PO DAILY 11/08/13 09/23/22 Potassium Chloride 20 meq PO BID 11/08/13 09/23/22 Levothyroxine Sodium [Synthroid] 75 mcg PO DAILY 03/10/22 09/23/22 Cholecalciferol [Vitamin D3 (25 50 mcg PO DAILY 09/23/22 09/23/22 Mcg = 1000 Iu)] Fluticasone Nasal [place] [Flonase 1 spray EA NOSTRIL BID 09/23/22 09/23/22 Nasal [place]] Previous Rx's Medication Instructions Recorded Amoxic-Pot Clav 500-125 mg 1 tab PO Q12HR 7 Days #14 tab 09/30/22 [Augmentin 500-125 mg] Ascorbic Acid [Vitamin C] 250 mg PO DAILY tab 09/30/22 Docusate [Colace] 100 mg PO BID cap 09/30/22 Famotidine [Pepcid] 20 mg PO DAILY tab 09/30/22 HYDROcodone/APAP 10-325MG [[place] 1 tab PO BID PRN 3 Days #6 tab 09/30/22 10-325] Methylphenidate HCl [Ritalin] 20 mg PO BID 3 Days #6 tab 09/30/22 Pregabalin [Lyrica] 100 mg PO BID@1400,1700 3 Days #6 09/30/22 cap Pregabalin [Lyrica] 200 mg PO BID@0900,2000 3 Days #6 09/30/22 cap Warfarin [Coumadin] 4 mg PO DAILY 7 Days #7 tablet 09/30/22 Zinc Sulfate [Orazinc] 220 mg PO DAILY cap 09/30/22 Allergies Allergy/AdvReac Type Severity Reaction Status Date / Time adhesive AdvReac SKIN Verified 05/04/23 13:50 PEELING Review of Systems ROS Statement: Those systems with pertinent positive or pertinent negative responses have been documented in the HPI. ROS Other: All systems not noted in ROS Statement are negative. Past Medical History Past Medical History: Chest Pain / Angina, CVA/TIA, Fibromyalgia, Musculoskeletal Disorder, Neurologic Disorder, Osteoarthritis (OA), Pulmonary Embolus (PE), Sleep Apnea/CPAP/BIPAP, Thyroid Disorder Additional Past Medical History / Comment(s): MULTIPLE SCLEROSIS, HX OF CVA 2006 WITH R SIDED WEAKNESS AND DYSPHASIA-MUCH IMPROVED, MIGRAINES, SLEEP APNEA(HAS C-PAP MACHINE BUT DOES NOT USE) ABD HERNIA,CHRONIC PAIN ESPECIALLY ON R SIDE OF BODY AND LOW BACK . PAINFUL FOR HER TO LIE FLAT. HX OF NOSEBLEED JUL 2014 AND RECEIVED PLASMA TRANSFUSION. takes pills with applesauce. History of Any Multi-Drug Resistant Organisms: VRE Date of last positivie culture/infection: 10/24/09 confirmed with infectious disease nurse on 08/18/16. MDRO Source:: URINE Past Surgical History: Appendectomy, Cholecystectomy, Hysterectomy Additional Past Surgical History / Comment(s): Incisional hernia repair, laparoscopic lysis of adhesions in 1987, ganglion cyst removal of the left wrist, patent foramen ovale patch in 2006, RF ablation for back pain. Past Anesthesia/Blood Transfusion Reactions: No Reported Reaction Past Psychological History: Depression Smoking Status: Never smoker Past Alcohol Use History: None Reported Past Drug Use History: None Reported - Past Family History Mother Family Medical History: Hypertension Additional Family Medical History / Comment(s): osteoporosis Father Family Medical History: Dementia, Diabetes Mellitus General Exam Limitations: no limitations General appearance: alert, in no apparent distress Head exam: Present: atraumatic, normocephalic, normal inspection Eye exam: Present: normal appearance, PERRL, EOMI. Absent: scleral icterus, conjunctival injection, periorbital swelling ENT exam: Present: normal exam, mucous membranes moist Neck exam: Present: normal inspection. Absent: tenderness, meningismus, lymphadenopathy Respiratory exam: Present: normal lung sounds bilaterally. Absent: respiratory distress, wheezes, rales, rhonchi, stridor Cardiovascular Exam: Present: regular rate, normal rhythm, normal heart sounds. Absent: systolic murmur, diastolic murmur, rubs, gallop, clicks GI/Abdominal exam: Present: soft, normal bowel sounds. Absent: distended, tenderness, guarding, rebound, rigid Rectal exam: Present: normal rectal tone, black stool Extremities exam: Present: normal inspection, full ROM, normal capillary refill. Absent: tenderness, pedal edema, joint swelling, calf tenderness Back exam: Present: normal inspection Neurological exam: Present: alert, oriented X3, CN II-XII intact Psychiatric exam: Present: normal affect, normal mood Skin exam: Present: warm, dry, intact, normal color. Absent: rash Course Vital Signs 05/04/23 05/04/23 05/04/23 13:46 17:50 18:00 Temperature 97.6 F Pulse Rate 69 61 60 Respiratory 18 18 18 Rate Blood Pressure 124/76 133/79 133/79 O2 Sat by Pulse 96 97 97 Oximetry 05/04/23 05/04/23 05/04/23 18:30 19:25 19:56 Temperature Pulse Rate 61 54 L 55 L Respiratory 18 19 19 Rate Blood Pressure 137/75 129/67 O2 Sat by Pulse 96 98 99 Oximetry Medical Decision Making - Medical Decision Making Was pt. sent in by a medical professional or institution (, PA, RATE EXAMINER, urgent care, hospital, or detention...) When possible be specific @ -Patient sent in by primary care physician Did you speak to anyone other than the patient for history (EMS, parent, family, police, friend...)? What history was obtained from this source @ -I spoke with the Did you review nursing and triage notes (agree or disagree)? Why? @ -I reviewed and agree with nursing and triage notes Were old charts reviewed (outside hosp., previous admission, EMS record, old EKG, old radiological studies, urgent care reports/EKG's, detention records)? Report findings @ -No old charts were reviewed Differential Diagnosis (chest pain, altered mental status, abdominal pain women, abdominal pain men, vaginal bleeding, weakness, fever, dyspnea, syncope, headache, dizziness, GI bleed, back pain, seizure, CVA, palpatations, mental health, musculoskeletal)? @ -Differential GI Bleed: Esophageal varices, aortoenteric fistula, Abida-Kerns, gastritis, peptic ulcer disease, diverticulosis, inflammatory bowel disease, hemorrhoids, fissure, colitis, malignancy, Meckels diverticulum, this is not meant to be an all-inclu sive list. EKG interpreted by me (3pts min.). @ -Not done X-rays interpreted by me (1pt min.). @ -None done CT interpreted by me (1pt min.). @ -None done U/S interpreted by me (1pt. min.). @ -None done What testing was considered but not performed or refused? (CT, X-rays, U/S, labs)? Why? @ -None What meds were considered but not given or refused? Why? @ -None Did you discuss the management of the patient with other professionals (professionals i.e. , PA, RATE EXAMINER, lab, RT, psych nurse, social studies teacher, dairy equipment specialist, teacher, marketing officer, catalytic case operator)? Give summary @ -No Was smoking cessation discussed for >3mins.? @ -No Was critical care preformed (if so, how long)? @ -No Were there social determinants of health that impacted care today? How? (Homelessness, low income, unemployed, alcoholism, drug addiction, transportation, low edu. Level, literacy, decrease access to med. care, long-term, rehab)? @ -No Was there de-escalation of care discussed even if they declined (Discuss DNR or withdrawal of care, Hospice)? DNR status @ -No What co-morbidities impacted this encounter? (DM, HTN, Smoking, COPD, CAD, Cancer, CVA, ARF, Chemo, Hep., AIDS, mental health diagnosis, sleep apnea, morbid obesity)? @ -PE on anticoagulation Was patient admitted / discharged? Hospital course, mention meds given and route, prescriptions, significant lab abnormalities, going to OR and other pertinent info. @ -Discharged. Upon arrival patient was placed into room 6. Rectal exam is performed and does demonstrate dark stools. This is sent for an occult which does come back negative. I did complete laboratory studies. Hemoglobin within normal limits. Hemodynamically stable. At this time the patient be discharged home. No indication that the patient is having any GI bleeding. Recommended she follow up with Dr. Paredes for further testing and return for any new or worsening symptoms Undiagnosed new problem with uncertain prognosis? @ -No Drug Therapy requiring intensive monitoring for toxicity (Heparin, Nitro, Insulin, Cardizem)? @ -No Were any procedures done? @ -No Diagnosis/symptom? @ -Acute abnormal stools/possible melena, evaluation for GI bleeding Acute, or Chronic, or Acute on Chronic? @ -Acute Uncomplicated (without systemic symptoms) or Complicated (systemic symptoms)? @ -Complicated Side effects of treatment? @ -No Exacerbation, Progression, or Severe Exacerbation? @ -No Poses a threat to life or bodily function? How? (Chest pain, [place], HI, pneumonia, PE, COPD, DKA, ARF, appy, cholecystitis, CVA, Diverticulitis, Homicidal, Suicidal, threat to staff... and all critical care pts) @ -No - Lab Data Result diagrams: 05/04/23 13:55 05/04/23 13:55 Lab Results 05/04/23 05/04/23 05/04/23 Range/Units 13:55 13:55 13:55 WBC 6.2 (3.8-10.6) k/uL RBC 4.95 (3.80-5.40) m/uL Hgb 15.0 (11.4-16.0) gm/dL Hct 43.3 (34.0-46.0) % MCV 87.4 (80.0-100.0) fL MCH 30.4 (25.0-35.0) pg MCHC 34.7 (31.0-37.0) g/dL RDW 13.7 (11.5-15.5) % Plt Count 122 L (150-450) k/uL MPV 10.7 Neutrophils % 68 % Lymphocytes % 22 % Monocytes % 6 % Eosinophils % 2 % Basophils % 0 % Neutrophils # 4.2 (1.3-7.7) k/uL Lymphocytes # 1.4 (1.0-4.8) k/uL Monocytes # 0.4 (0-1.0) k/uL Eosinophils # 0.1 (0-0.7) k/uL Basophils # 0.0 (0-0.2) k/uL PT 24.2 H (10.0-12.5) sec INR 2.4 H (<1.2) APTT 32.6 H (22.0-30.0) sec Sodium 143 (137-145) mmol/L Potassium 3.8 (3.5-5.1) mmol/L Chloride 108 H (98-107) mmol/L Carbon Dioxide 24 (22-30) mmol/L Anion Gap 11 mmol/L BUN 19 H (7-17) mg/dL Creatinine 1.38 H (0.52-1.04) mg/dL Est GFR (CKD-EPI)AfAm 45 (>60 ml/min/1.73 sqM) Est GFR (CKD-EPI)NonAf 39 (>60 ml/min/1.73 sqM) Glucose 121 H (74-99) mg/dL Calcium 9.4 (8.4-10.2) mg/dL Total Bilirubin 1.1 (0.2-1.3) mg/dL AST 23 (14-36) U/L ALT 21 (4-34) U/L Alkaline Phosphatase 119 (38-126) U/L Total Protein 6.9 (6.3-8.2) g/dL Albumin 4.2 (3.5-5.0) g/dL Stool Occult Blood (Negative) Blood Type Blood Type Recheck Bld Type Recheck Status Antibody Screen Spec Expiration Date 05/04/23 05/04/23 Range/Units 14:10 18:16 WBC (3.8-10.6) k/uL RBC (3.80-5.40) m/uL Hgb (11.4-16.0) gm/dL Hct (34.0-46.0) % MCV (80.0-100.0) fL MCH (25.0-35.0) pg MCHC (31.0-37.0) g/dL RDW (11.5-15.5) % Plt Count (150-450) k/uL MPV Neutrophils % % Lymphocytes % % Monocytes % % Eosinophils % % Basophils % % Neutrophils # (1.3-7.7) k/uL Lymphocytes # (1.0-4.8) k/uL Monocytes # (0-1.0) k/uL Eosinophils # (0-0.7) k/uL Basophils # (0-0.2) k/uL PT (10.0-12.5) sec INR (<1.2) APTT (22.0-30.0) sec Sodium (137-145) mmol/L Potassium (3.5-5.1) mmol/L Chloride (98-107) mmol/L Carbon Dioxide (22-30) mmol/L Anion Gap mmol/L BUN (7-17) mg/dL Creatinine (0.52-1.04) mg/dL Est GFR (CKD-EPI)AfAm (>60 ml/min/1.73 sqM) Est GFR (CKD-EPI)NonAf (>60 ml/min/1.73 sqM) Glucose (74-99) mg/dL Calcium (8.4-10.2) mg/dL Total Bilirubin (0.2-1.3) mg/dL AST (14-36) U/L ALT (4-34) U/L Alkaline Phosphatase (38-126) U/L Total Protein (6.3-8.2) g/dL Albumin (3.5-5.0) g/dL Stool Occult Blood Negative (Negative) Blood Type O Negative Blood Type Recheck O Neg Bld Type Recheck Status No Antibody Screen NEGATIVE Spec Expiration Date 05/07/20232309 Disposition Clinical Impression: Dark stools Disposition: HOME SELF-CARE Condition: Stable Instructions (If sedation given, give patient instructions): Gastrointestinal Bleeding (ED) Additional Instructions: You have been evaluated today for a GI bleed. Your sample came back negative. Your blood counts are good. Please follow-up with your doctor for further workup Is patient prescribed a controlled substance at d/c from ED?: No Referrals: Sarah Paredes MD [Primary Care Provider] - 1-2 days Time of Disposition: 19:45
[2023-05-04 19:27] VITALS: RESP 19
[2023-05-04] MEDS ORDERED: HYDROcodone/APAP 10-325MG 1 EACH TAB PO ONE (19:37)
[2023-05-04 20:06] VITALS: BP 129/67; PULSE 55
== END 2023-05-04 20:32 | disposition home or self-care (01) ==
LOC: EC 13:12
DX: K92.1 Melena (principal); G47.30 Sleep apnea, unspecified; M19.90 Unspecified osteoarthritis, unspecified site; E07.9 Disorder of thyroid, unspecified; F32.A Depression, unspecified; Z79.01 Long term (current) use of anticoagulants; Z79.890 Hormone replacement therapy; Z79.899 Other long term (current) drug therapy; Z90.49 Acquired absence of other specified parts of digestive tract; Z88.8 Allergy status to other drugs, medicaments and biological substances
CPT/HCPCS: 36415; 80053; 82272; 85025; 85610; 85730; 86850; 86900; 86901; 99284

== ENCOUNTER → 2023-10-18 | Outpatient (CLI) | payer MEDICARE ==
--- NOTE | 2023-10-18 21:45 | XR ---
EXAMINATION TYPE: XR knee complete 3 views bilateral DATE OF EXAM: 10/18/2023 COMPARISON: NONE HISTORY: 68-year-old female W19.XXXA, M25.569. Pain after fall. TECHNIQUE: 3 views both sides FINDINGS: There is tricompartmental degenerative change. Moderate to severe narrowing of cartilage an d joint space within the bilateral medial compartments. Additional at least moderate degenerative katherin nge within the lateral and patellofemoral compartments on both sides. Moderately joint effusions bila terally. Extensor mechanisms are intact. No acute fracture, subluxation, dislocation. IMPRESSION: Bilateral tricompartmental osteoarthrosis, moderate to severe in the medial compartment. Small joint effusions probably reactive. No displaced fracture seen.
== END | disposition home or self-care (01) ==
LOC: RADXRMAIN 15:40
PROVIDERS: ATTEND Internal Medicine
DX: M17.0 Bilateral primary osteoarthritis of knee (principal); W19.XXXA Unspecified fall, initial encounter

== ENCOUNTER 2024-01-24 14:40 | Emergency (ER) | payer MEDICARE ==
--- NOTE | 2024-01-24 15:59 | ED ---
General Adult HPI - General Chief complaint: Neuro Symptoms/Deficit Stated complaint: numbness, confusion Time Seen by Provider: 01/24/24 15:53 Source: patient, family Mode of arrival: ambulatory Limitations: physical limitation - History of Present Illness Initial comments: Patient is a 68-year-old female presenting today for ascending body pain. Hist ory is limited by patient's aphasia, patient's assists in providing history. She states that patient that she has previously been admitted for similar few years ago. She was thought to have a diagnosis of MS but was then told that she did not. Has not had steroids in 3 years. Over the last 6 months she has had coming and going pain in her lower and upper extremities. She was seen by her neurologist last week and scheduled for outpatient MRI brain and lumbar spine. Yesterday patient saw her primary care provider for similar symptoms to today who told her that she should come to the emergency department should symptoms worsen. Patient states that yesterday her symptoms worsened today and today they are somewhat improved. She states that she feels pain in her "fingers however motions to her feet, indicates that his ascending. Denies numbness, denies shortness of breath, chest pain, abdominal pain, nausea, vomiting, shortness of breath, changes in vision, recent fevers, urinary incontinence or retention, difficulty having a bowel movement - Related Data Home Medications Medication Instructions Recorded Confirmed Baclofen [Lioresal] 10 mg PO DAILY 11/08/13 01/24/24 Furosemide [Lasix] 40 mg PO BID@0900,1700 11/08/13 01/24/24 Montelukast [Singulair] 10 mg PO DAILY 11/08/13 01/24/24 Pantoprazole Sodium [Protonix] 40 mg PO DAILY 11/08/13 01/24/24 Levothyroxine Sodium [Synthroid] 75 mcg PO DAILY 03/10/22 01/24/24 Fluticasone Nasal Bascom [Flonase 1 spray EA NOSTRIL BID 09/23/22 01/24/24 Nasal Bascom] Cholecalciferol (Vitamin D3) 250 mcg PO DAILY 01/24/24 01/24/24 [Vitamin D3 (125 MCG = 5,000 IU)] Ferrous Sulfate [Feosol] 325 mg PO W/SUPPER 01/24/24 01/24/24 HYDROcodone/APAP 7.5-325MG [[place] 1 tab PO TID 01/24/24 01/24/24 7.5-325] Methylphenidate HCl [Ritalin] 20 mg PO DAILY 01/24/24 01/24/24 Potassium Chloride ER [K-Dur 20] 20 meq PO BID@0900,1700 01/24/24 01/24/24 Pregabalin [Lyrica] 100 mg PO TID 01/24/24 01/24/24 Warfarin [Coumadin] 3 mg PO W/SUPPER 01/24/24 01/24/24 allopurinoL [Zyloprim] 300 mg PO HS 01/24/24 01/24/24 Allergies Allergy/AdvReac Type Severity Reaction Status Date / Time adhesive AdvReac SKIN Verified 01/24/24 21:14 PEELING Review of Systems ROS Statement: Those systems with pertinent positive or pertinent negative responses have been documented in the HPI. ROS Other: All systems not noted in ROS Statement are negative. Past Medical History Past Medical History: Chest Pain / Angina, CVA/TIA, Fibromyalgia, Mu sculoskeletal Disorder, Neurologic Disorder, Osteoarthritis (OA), Pulmonary Embolus (PE), Sleep Apnea/CPAP/BIPAP, Thyroid Disorder Additional Past Medical History / Comment(s): MULTIPLE SCLEROSIS, HX OF CVA 2006 WITH R SIDED WEAKNESS AND DYSPHASIA-MUCH IMPROVED, MIGRAINES, SLEEP APNEA(HAS C- PAP MACHINE BUT DOES NOT USE) ABD HERNIA,CHRONIC PAIN ESPECIALLY ON R SIDE OF BODY AND LOW BACK . PAINFUL FOR HER TO LIE FLAT. HX OF NOSEBLEED JUL 2014 AND RECEIVED PLASMA TRANSFUSION. takes pills with applesauce. History of Any Multi-Drug Resistant Organisms: VRE Date of last positivie culture/infection: 10/24/09 confirmed with infectious disease nurse on 08/18/16. MDRO Source:: URINE Past Surgical History: Appendectomy, Cholecystectomy, Hysterectomy Additional Past Surgical History / Comment(s): Incisional hernia repair, laparoscopic lysis of adhesions in 1987, ganglion cyst removal of the left wrist, patent foramen ovale patch in 2006, RF ablation for back pain. Past Anesthesia/Blood Transfusion Reactions: No Reported Reaction Past Psychological History: Depression Smoking Status: Never smoker Past Alcohol Use History: None Reported Past Drug Use History: None Reported - Past Family History Mother Family Medical History: Hypertension Additional Family Medical History / Comment(s): osteoporosis Father Family Medical History: Dementia, Diabetes Mellitus General Exam - General Exam Comments Initial Comments: PE: CONSTITUTIONAL: no apparent distress, well appearing SKIN: warm, dry, no jaundice, hives or petechiae EYES: pupils are equally round, extraocular movements intact without nystagmus, clear conjunctiva, non-icteric sclera HENT: normocephalic, atraumatic, moist mucus membranes, oropharynx clear without exudates NECK: Nontender and supple with no nuchal rigidity, no lymphadenopathy, full range of motion PULMONARY: clear to auscultation without wheezes, rhonchi, or rales, normal excursion, no accessory muscle use and no stridor CARDIOVASCULAR: regular rate, rhythm, normal S1 and S2. No appreciated murmurs. Strong radial pulses with intact distal perfusion GASTROINTESTINAL: soft, non-tender, non-distended, no palpable masses, no rebound or guarding GENITOURINARY: LYMPHATICS: no edema in lower extremities, no lymphadenopathy MUSCULOSKELETAL: Extremities are nontender to palpation and have no gross deformity, no edema, redness, or swelling NEUROLOGIC: _a/o x 3, GCS 15, normal mentation and speech. Moves all extremities x 4 without motor or sensory deficit PSYCHIATRIC: _normal mood and affect, thought process is clear and linear Exam significant for exaggerated response to pain to light touch over patient's entire body with exception of face, equal 4-5 strength in all 4 extremities Sensation to light touch intact, no other focal neurologic deficits with the exception of baseline aphasia Limitations: physical limitation Course Vital Signs 01/24/24 01/24/24 01/24/24 15:19 18:13 20:26 Temperature 98.5 F Pulse Rate 59 L 57 L 58 L Respiratory 20 18 20 Rate Blood Pressure 145/84 131/87 124/63 O2 Sat by Pulse 98 97 98 Oximetry 01/24/24 22:20 Temperature Pulse Rate 51 L Respiratory 16 Rate Blood Pressure 133/67 O2 Sat by Pulse 99 Oximetry - Reevaluation(s) Reevaluation #1: CT brain reviewed, no intra acute intracranial process, remote left MCA injury chest x-ray shows no acute intrapulmonary process. I agree with radiologist interpretation. I see no evidence of mass, hemorrhage or other acute cranial process. I see no cardiopulmonary acute process, effusions, consolidations 01/24/24 19:27 EKG Findings - EKG Comments: EKG Findings:: EKG interpretation. Sinus bradycardia. Rate 53 bpm. GA interval 178 ms. QT/QTc 429/411 ms. Normal axis. Compared to EKG performed on 09/23/2022 no significant changes from prior Medical Decision Making - Medical Decision Making Was pt. sent in by a medical professional or institution (, PA, GREEN MATERIAL VALUE ADDED ASSESSOR, urgent care, hospital, or senior living...) When possible be specific @ -[No] Did you speak to anyone other than the patient for history (EMS, parent, family, police, friend...)? What history was obtained from this source @ -[No] Did you review nursing and triage notes (agree or disagree)? Why? @ Reviewed triage note, states patient reports numbness tingling in bilateral arms legs, does have history of MS, reports past medical history steroid usage but no steroids recently aphasic at baseline vitals on arrival showed temp 98.5, heart rate 59 bpm, respiratory rate 20, blood pressure 145/84, SpO2 98% Were old charts reviewed (outside hosp., previous admission, EMS record, old EKG, old radiological studies, urgent care reports/EKG's, senior living records)? Report findings @ -[No old charts were reviewed] Patient most recently discharged from this hospital on 09/23/2022 diagnosis of acute mental status change, possible pneumonia, abdominal pain vomiting, dehydration, ANGELES, febrile illness with COVID positive, originally presented for altered mental status and generalized pain. In this discharge summary there are comments that patient may have had questionable diagnosis of multiple sclerosis however on neurology consultation on prior admissions this was doubted CT brain on August 2022 showed no evidence of acute demyelination, no intracranial mass, acute or subacute infarct, old MCA territory infarct with infarct cephalization no evidence of acute or subacute CVA, left frontal lesion minimally increased in size prior present represent enlarging meningioma no evidence of disc herniation Differential Diagnosis (chest pain, altered mental status, abdominal pain women, abdominal pain men, vaginal bleeding, weakness, fever, dyspnea, syncope, headache, dizziness, GI bleed, back pain, seizure, CVA, palpatations, mental health, musculoskeletal)? @ -Differential Weakness: Hypoglycemia, shock, sepsis, hyponatremia, anemia, infection, NM, ETOH, adverse medicine reaction, overdose, stroke, this is not meant to be an all-inclusive list. EKG interpreted by me (3pts min.). @ -[As above] X-rays interpreted by me (1pt min.). @ -[None done] CT interpreted by me (1pt min.). @ -[None done] U/S interpreted by me (1pt. min.). @ -[None done] What testing was considered but not performed or refused? (CT, X-rays, U/S, labs)? Why? @ -[None] What meds were considered but not given or refused? Why? @ -[None] Did you discuss the management of the patient with other professionals (professionals i.e. , PA, GREEN MATERIAL VALUE ADDED ASSESSOR, lab, RT, psych nurse, sr. social media & mobile manager, hypoid gear tester, te acher, staff combat information center officer, rifle case repairer)? Give summary @ -[No] Was smoking cessation discussed for >3mins.? @ -[No] Was critical care preformed (if so, how long)? @ -[No] Were there social determinants of health that impacted care today? How? (Homelessness, low income, unemployed, alcoholism, drug addiction, transportation, low edu. Level, literacy, decrease access to med. care, assisted, rehab)? @ -[No] Was there de-escalation of care discussed even if they declined (Discuss DNR or withdrawal of care, Hospice)? DNR status @ -[No] What co-morbidities impacted this encounter? (DM, HTN, Smoking, COPD, CAD, Cancer, CVA, ARF, Chemo, Hep., AIDS, mental health diagnosis, sleep apnea, morbid obesity)? @ -[None] Was patient admitted / discharged? Hospital course, mention meds given and route, prescriptions, significant lab abnormalities, going to OR and other pertinent info. Discharged- Patient is a 68-year-old female past medical history of questionable MS, fibromyalgia, prior CVA with residual aphasia presenting today for diffuse body pain. History limited by patient's aphasia. On exam patient in no acute distress, resting comfortably, respirations unlabored. Able to converse, does have some difficulty with providing history due to aphasia, pointing to her feet, indicating to her feet but then stating that it is her fingers and hands that hurt. Exam shows no evidence of trauma, rashes, redness bruising or erythema to the skin. Patient moans in pain when skin is lightly touched across her lower extremities, trunk, abdomen, back. There is not any particular spot of point tenderness. Denies new numbness, weakness, changes in vision, shortness of breath, fevers, difficulty with bowel movements, urinary incontinence or retention. Will plan for CT brain, CBC, CMP, CK, TSH, pain control Tylenol and morphine. Labs and imaging reviewed. Grossly within normal limits. Abnormal values not concerning for acute pathology related to presenting complaint., Creatinine at baseline 1.32, GFR 41 prior troponin within normal limits, CK 54, TSH 0.639, urinalysis without signs of infection, viral panel negative On reevaluation patient endorses improvement of symptoms. Patient is comfortable discharge home at this point. Patient will be ambulated prior to discharge. Patient states that symptoms improved with morphine and her is concerned that her pain could worsen again upon discharge home, we discusse adminsitering morphine, performing ambulatory trial and if pain remains controlled and patient able to ambulate without difficulty will discharge home for outpatient follow-up. We discussed the importance of following up with patient's neurologist, calling their office tomorrow morning to discuss patient's symptoms and consider moving up patient's MRIs. We discussed that should patient symptoms return, worsen or should she have any of the symptoms listed in discharge paperwork she should return to the ER immediately. Patient and are comfortable with plan of care. @ -In my medical judgment there is currently no evidence of an immediate life- threatening or surgical condition. Discharge is therefore indicated at this time. [Discharge treatment instructions, follow up instructions, and appropriate emergency department return precautions were discussed with the patient and/or medical decision maker. Patient and/or medical decision maker expressed understanding of and agreed with the treatment plan, follow up instructions, and emergency department return precaution. All patient's and/or medical decision maker's questions were answered.] [The patient was advised that a small risk still exists that a serious condition could develop and was therefore instructed to return to the ED for any changes in symptoms, persistent symptoms, inability to obtain proper follow-up or for any further concerns. Patient received verbal and written instructions for this condition.] Undiagnosed new problem with uncertain prognosis? @ -[No] Drug Therapy requiring intensive monitoring for toxicity (Heparin, Nitro, Insulin, Cardizem)? @ -[No] Were any procedures done? @ -[No] Diagnosis/symptom? @ -Body pain Acute, or Chronic, or Acute on Chronic? @ -Acute Uncomplicated (without systemic symptoms) or Complicated (systemic symptoms)? @ -Uncomplicated Side effects of treatment? @ -[No] Exacerbation, Progression, or Severe Exacerbation? @ -[No] Poses a threat to life or bodily function? How? (Chest pain, USA, NM, pneumonia, PE, COPD, DKA, ARF, appy, cholecystitis, CVA, Diverticulitis, Homicidal, Suicidal, threat to staff... and all critical care pts) @ -[No] - Lab Data Result diagrams: 01/24/24 16:31 01/24/24 16:31 Lab Results 01/24/24 01/24/24 01/24/24 Range/Units 16:31 16:31 16:31 WBC 5.4 (3.8-10.6) k/uL RBC 4.64 (3.80-5.40) m/uL Hgb 13.8 (11.4-16.0) gm/dL Hct 41.5 (34.0-46.0) % MCV 89.5 (80.0-100.0) fL MCH 29.9 (25.0-35.0) pg MCHC 33.4 (31.0-37.0) g/dL RDW 13.9 (11.5-15.5) % Plt Count 124 L (150-450) k/uL MPV 10.2 Neutrophils % 65 % Lymphocytes % 26 % Monocytes % 5 % Eosinophils % 2 % Basophils % 0 % Neutrophils # 3.5 (1.3-7.7) k/uL Lymphocytes # 1.4 (1.0-4.8) k/uL Monocytes # 0.3 (0-1.0) k/uL Eosinophils # 0.1 (0-0.7) k/uL Basophils # 0.0 (0-0.2) k/uL PT 22.1 H (10.0-12.5) sec INR 2.2 H (<1.2) APTT 33.5 H (22.0-30.0) sec Sodium 142 (137-145) mmol/L Potassium 3.8 (3.5-5.1) mmol/L Chloride 108 H (98-107) mmol/L Carbon Dioxide 28 (22-30) mmol/L Anion Gap 6 mmol/L BUN 23 H (7-17) mg/dL Creatinine 1.32 H (0.52-1.04) mg/dL Est GFR (CKD-EPI)AfAm 47 (>60 ml/min/1.73 sqM) Est GFR (CKD-EPI)NonAf 41 (>60 ml/min/1.73 sqM) Glucose 109 H (74-99) mg/dL Plasma Lactic Acid Simone (0.7-2.0) mmol/L Calcium 9.2 (8.4-10.2) mg/dL Ionized Calcium Michele 4.9 (4.5-5.3) mg/dL Magnesium 2.1 (1.6-2.3) mg/dL Total Bilirubin 1.1 (0.2-1.3) mg/dL AST 20 (14-36) U/L ALT 14 (4-34) U/L Alkaline Phosphatase 100 (38-126) U/L Creatine Kinase (30-135) U/L Troponin I (0.000-0.034) ng/mL Total Protein 6.0 L (6.3-8.2) g/dL Albumin 3.8 (3.5-5.0) g/dL TSH 0.639 (0.465-4.680) mIU/L Urine Color Urine Appearance (Clear) Urine pH (5.0-8.0) Ur Specific [place] (1.001-1.035) Urine Protein (Negative) Urine Glucose (UA) (Negative) Urine Ketones (Negative) Urine Blood (Negative) Urine Nitrite (Negative) Urine Bilirubin (Negative) Urine Urobilinogen (<2.0) mg/dL Ur Leukocyte Esterase (Negative) Influenza Type A (PCR) (Not Detectd) Influenza Type B (PCR) (Not Detectd) RSV (PCR) (Not Detectd) SARS-CoV-2 (PCR) (Not Detectd) 01/24/24 01/24/24 01/24/24 Range/Units 16:31 16:31 16:31 WBC (3.8-10.6) k/uL RBC (3.80-5.40) m/uL Hgb (11.4-16.0) gm/dL Hct (34.0-46.0) % MCV (80.0-100.0) fL MCH (25.0-35.0) pg MCHC (31.0-37.0) g/dL RDW (11.5-15.5) % Plt Count (150-450) k/uL MPV Neutrophils % % Lymphocytes % % Monocytes % % Eosinophils % % Basophils % % Neutrophils # (1.3-7.7) k/uL Lymphocytes # (1.0-4.8) k/uL Monocytes # (0-1.0) k/uL Eosinophils # (0-0.7) k/uL Basophils # (0-0.2) k/uL PT (10.0-12.5) sec INR (<1.2) APTT (22.0-30.0) sec Sodium (137-145) mmol/L Potassium (3.5-5.1) mmol/L Chloride (98-107) mmol/L Carbon Dioxide (22-30) mmol/L Anion Gap mmol/L BUN (7-17) mg/dL Creatinine (0.52-1.04) mg/dL Est GFR (CKD-EPI)AfAm (>60 ml/min/1.73 sqM) Est GFR (CKD-EPI)NonAf (>60 ml/min/1.73 sqM) Glucose (74-99) mg/dL Plasma Lactic Acid Simone 0.8 (0.7-2.0) mmol/L Calcium (8.4-10.2) mg/dL Ionized Calcium Michele (4.5-5.3) mg/dL Magnesium (1.6-2.3) mg/dL Total Bilirubin (0.2-1.3) mg/dL AST (14-36) U/L ALT (4-34) U/L Alkaline Phosphatase (38-126) U/L Creatine Kinase (30-135) U/L Troponin I <0.012 (0.000-0.034) ng/mL Total Protein (6.3-8.2) g/dL Albumin (3.5-5.0) g/dL TSH (0.465-4.680) mIU/L Urine Color Urine Appearance (Clear) Urine pH (5.0-8.0) Ur Specific [place] (1.001-1.035) Urine Protein (Negative) Urine Glucose (UA) (Negative) Urine Ketones (Negative) Urine Blood (Negative) Urine Nitrite (Negative) Urine Bilirubin (Negative) Urine Urobilinogen (<2.0) mg/dL Ur Leukocyte Esterase (Negative) Influenza Type A (PCR) Not Detected (Not Detectd) Influenza Type B (PCR) Not Detected (Not Detectd) RSV (PCR) Not Detected (Not Detectd) SARS-CoV-2 (PCR) Not Detected (Not Detectd) 01/24/24 01/24/24 Range/Units 16:31 20:15 WBC (3.8-10.6) k/uL RBC (3.80-5.40) m/uL Hgb (11.4-16.0) gm/dL Hct (34.0-46.0) % MCV (80.0-100.0) fL MCH (25.0-35.0) pg MCHC (31.0-37.0) g/dL RDW (11.5-15.5) % Plt Count (150-450) k/uL MPV Neutrophils % % Lymphocytes % % Monocytes % % Eosinophils % % Basophils % % Neutrophils # (1.3-7.7) k/uL Lymphocytes # (1.0-4.8) k/uL Monocytes # (0-1.0) k/uL Eosinophils # (0-0.7) k/uL Basophils # (0-0.2) k/uL PT (10.0-12.5) sec INR (<1.2) APTT (22.0-30.0) sec Sodium (137-145) mmol/L Potassium (3.5-5.1) mmol/L Chloride (98-107) mmol/L Carbon Dioxide (22-30) mmol/L Anion Gap mmol/L BUN (7-17) mg/dL Creatinine (0.52-1.04) mg/dL Est GFR (CKD-EPI)AfAm (>60 ml/min/1.73 sqM) Est GFR (CKD-EPI)NonAf (>60 ml/min/1.73 sqM) Glucose (74-99) mg/dL Plasma Lactic Acid Simone (0.7-2.0) mmol/L Calcium (8.4-10.2) mg/dL Ionized Calcium Michele (4.5-5.3) mg/dL Magnesium (1.6-2.3) mg/dL Total Bilirubin (0.2-1.3) mg/dL AST (14-36) U/L ALT (4-34) U/L Alkaline Phosphatase (38-126) U/L Creatine Kinase 54 (30-135) U/L Troponin I (0.000-0.034) ng/mL Total Protein (6.3-8.2) g/dL Albumin (3.5-5.0) g/dL TSH (0.465-4.680) mIU/L Urine Color Light Yellow Urine Appearance Clear (Clear) Urine pH 5.5 (5.0-8.0) Ur Specific [place] 1.014 (1.001-1.035) Urine Protein Negative (Negative) Urine Glucose (UA) Negative (Negative) Urine Ketones Negative (Negative) Urine Blood Negative (Negative) Urine Nitrite Negative (Negative) Urine Bilirubin Negative (Negative) Urine Urobilinogen <2.0 (<2.0) mg/dL Ur Leukocyte Esterase Negative (Negative) Influenza Type A (PCR) (Not Detectd) Influenza Type B (PCR) (Not Detectd) RSV (PCR) (Not Detectd) SARS-CoV-2 (PCR) (Not Detectd) Disposition Clinical Impression: Complaints of total body pain Disposition: HOME SELF-CARE Condition: Good Instructions (If sedation given, give patient instructions): Pain Management in Older Adults (DC) Additional Instructions: Every disease is a spectrum and a small chance still exists that a serious condition could develop, for this reason, please monitor yourself closely for new, changing or worsening symptoms, symptoms that persist for greater than 48 hours, development of pain that you cannot control with home medications, new rashes, shortness of breath or difficulty breathing, new numbness or weakness, changes in vision, confusion, difficulty urinating or incontinence of urine, numbness between your legs or inability to care for yourself or ambulate due to pain or weakness, fever, inability to tolerate/keep down fluids or your medications, inability to follow up with outpatient providers as instructed and should you experience these symptoms or should you have any further concerns for your wellbeing please return to the ED or call 911 immediately. PLEASE call your primary care physician and neurologist as soon as possible to arrange / discuss plan for followup appointment. Appointment in the next 1-3 days is strongly encouraged if possible. PLEASE let us know here before you leave if there is anything further we can do to be of any assistance. Take care and feel Better! Is patient prescribed a controlled substance at d/c from ED?: No Referrals: Sarah Paredes MD [Primary Care Provider] - 1-2 days Time of Disposition: 23:22
[2024-01-24 17:03] LABS: Basophils % (A) 0 %; Eosinophils # (A) 0.1 k/uL (0-0.7); Eosinophils % (A) 2 %; HCT 41.5 % (34.0-46.0); HGB 13.8 gm/dL (11.4-16.0); Lymphocytes # (A) 1.4 k/uL (1.0-4.8); Lymphocytes % (A) 26 %; MCH 29.9 pg (25.0-35.0); MCHC 33.4 g/dL (31.0-37.0); MCV 89.5 fL (80.0-100.0); Mean Platelet Volume 10.2; Monocytes # (A) 0.3 k/uL (0-1.0); Monocytes % (A) 5 %; Neutrophils # (A) 3.5 k/uL (1.3-7.7); Neutrophils % (A) 65 %; Platelet Count 124 k/uL (150-450); RBC 4.64 m/uL (3.80-5.40); RDW 13.9 % (11.5-15.5); WBC 5.4 k/uL (3.8-10.6)
[2024-01-24 17:21] LABS: Ionized Calcium 4.9 mg/dL (4.5-5.3)
[2024-01-24 17:23] LABS: INR 2.2 (<1.2); Prothrombin Time 22.1 sec (10.0-12.5)
[2024-01-24 17:24] LABS: Partial Thromboplastin Time 33.5 sec (22.0-30.0)
[2024-01-24 17:30] LABS: ALT 14 U/L (4-34); AST 20 U/L (14-36); African American GFR (CKD) 47 (>60 ml/min/1.73 sqM); Albumin 3.8 g/dL (3.5-5.0); Alkaline Phosphatase 100 U/L (38-126); Anion Gap 6 mmol/L; Blood Urea Nitrogen 23 mg/dL (7-17); Calcium 9.2 mg/dL (8.4-10.2); Carbon Dioxide 28 mmol/L (22-30); Chloride 108 mmol/L (98-107); Glucose 109 mg/dL (74-99); Magnesium 2.1 mg/dL (1.6-2.3); Non-African American GFR(CKD) 41 (>60 ml/min/1.73 sqM); Potassium 3.8 mmol/L (3.5-5.1); Sodium 142 mmol/L (137-145); Total Bilirubin 1.1 mg/dL (0.2-1.3)
[2024-01-24] MEDS: MORPHINE SULFATE 4 MG/ML SYRINGE IVP STA ×2 (17:54→23:06)
[2024-01-24] MEDS: ONDANSETRON 4 MG/2 ML VIAL IVP STA ×2 (17:56→23:06)
[2024-01-24] MEDS: ACETAMINOPHEN TAB 500 MG TAB PO STA (17:59)
--- NOTE | 2024-01-24 18:02 | XR ---
EXAMINATION TYPE: XR chest 2V DATE OF EXAM: 01/24/2024 5:37 PM CLINICAL INDICATION:Female, 68 years old with history of Weakness; [facility] COMPARISON: Chest radiographs from 09/19/2022 TECHNIQUE: XR chest 2V Frontal view of the chest. FINDINGS: Lungs/Pleura: There is no evidence of pleural effusion, focal consolidation, or pneumothorax. Pulmonary vascularity: Unremarkable. Heart/mediastinum: Cardiomediastinal silhouette is prominent in size. Musculoskeletal: No acute osseous pathology. IMPRESSION: No acute cardiopulmonary disease/process.
--- NOTE | 2024-01-24 18:18 | CT ---
EXAMINATION TYPE: CT brain wo con CT DLP: 1139.4 mGycm, Automated exposure control for dose reduction was used. DATE OF EXAM: 01/24/2024 5:55 PM COMPARISON: 09/24/2019. CLINICAL INDICATION:Female, 68 years old with history of Ascending body aches/pain, hx stroke, hx pos s MS, AMS. hx of stroke and MS. TECHNIQUE: Brain: Axial CT images of the brain were obtained with coronal and sagittal reformats created and rev iewed. Contrast used: None. Oral contrast used: None. FINDINGS: Brain: Extra-axial spaces: No abnormal extra-axial fluid collections. Ventricular system: Within normal limits Cerebral parenchyma: Encephalomalacia the left temporal, parietal and frontal lobes. No acute intrapa renchymal hemorrhage or mass effect. The beckman-white junction is well differentiated. Cerebellum: Unremarkable. Mass effect: No evidence of midline shift. Intracranial vasculature: Atherosclerotic calcifications of the intracranial vessels. Soft tissues: Normal. Calvarium/osseous structures: No depressed skull fracture. Paranasal sinuses and mastoid air cells: Mild scattered paranasal sinus disease. Visualized orbits: Bilaterally aphakia. IMPRESSION: 1. No acute intracranial process. 2. Remote left MCA injury with encephalomalacia.
[2024-01-24 20:34] LABS: Appearance,Urine Clear (Clear); Bilirubin,Urine Negative (Negative); Blood,Urine Negative (Negative); Color,Urine Light Yellow; Glucose,Urine (UA) Negative (Negative); Ketones,Urine Negative (Negative); Leukocyte Esterase,Urine Negative (Negative); Nitrite,Urine Negative (Negative); PH, Urine 5.5 (5.0-8.0); Protein,Urine Negative (Negative); Specific Gravity,Urine 1.014 (1.001-1.035); Urobilinogen,Urine <2.0 mg/dL (<2.0)
[2024-01-25 00:21] VITALS: BP 125/66; PULSE 78; RESP 18; TEMP 97.9
== END 2024-01-25 00:21 | disposition home or self-care (01) ==
LOC: EC 14:40
DX: R20.2 Paresthesia of skin (principal); R41.0 Disorientation, unspecified; Z86.73 Personal history of transient ischemic attack (TIA), and cerebral infarction without residual deficits; Z91.048 Other nonmedicinal substance allergy status
CPT/HCPCS: 36415; 93005; 80053; 82330; 82550; 83605; 83735; 84443; 84484; 85025; 85610; 85730; 81003; 87636; 71046; 70450; 99285; 96374; 96375; 96376 ×2; J2270; J2405

== ENCOUNTER 2024-01-30 19:04 | Emergency (ER) | payer MEDICARE ==
[2024-01-30] MEDS: ACETAMINOPHEN TAB 500 MG TAB PO STA (21:24)
[2024-01-30] MEDS: ONDANSETRON 4 MG/2 ML VIAL IM STA (21:26)
[2024-01-30] MEDS: MORPHINE SULFATE 4 MG/ML SYRINGE IM STA ×2 (21:27→23:38)
--- NOTE | 2024-01-30 22:43 | ED ---
Extremity Problem HPI - General Chief complaint: Extremity Problem,Nontraumatic Stated complaint: Catarino leg pain Time Seen by Provider: 01/30/24 19:20 Source: patient, family, RN notes reviewed Mode of arrival: ambulatory Limitations: altered mental status - History of Present Illness Initial comments: This is a 68-year-old female with a history of CVA and subsequent aphasia who presents emergency department chief complaint of chronic pain. History was aided by the patient's at bedside due to aphasia. It is reported that patient does have a history of chronic pain of the bilateral lower extremities and this has been worsening. Patient had a formal evaluation completed a few days ago in the emergency department for similar symptoms. Patient and patient's states that she does not have pain medication that she can take at home and that the pharmacy has been out of the prescribed medications. Patient has pain with ambulation. - Related Data Home Medications Medication Instructions Recorded Confirmed Baclofen [Lioresal] 10 mg PO DAILY 11/08/13 01/24/24 Furosemide [Lasix] 40 mg PO BID@0900,1700 11/08/13 01/24/24 Montelukast [Singulair] 10 mg PO DAILY 11/08/13 01/24/24 Pantoprazole Sodium [Protonix] 40 mg PO DAILY 11/08/13 01/24/24 Levothyroxine Sodium [Synthroid] 75 mcg PO DAILY 03/10/22 01/24/24 Fluticasone Nasal [place] [Flonase 1 spray EA NOSTRIL BID 09/23/22 01/24/24 Nasal [place]] Cholecalciferol (Vitamin D3) 250 mcg PO DAILY 01/24/24 01/24/24 [Vitamin D3 (125 MCG = 5,000 IU)] Ferrous Sulfate [Feosol] 325 mg PO W/SUPPER 01/24/24 01/24/24 HYDROcodone/APAP 7.5-325MG [Haiku 1 tab PO TID 01/24/24 01/24/24 7.5-325] Methylphenidate HCl [Ritalin] 20 mg PO DAILY 01/24/24 01/24/24 Potassium Chloride ER [K-Dur 20] 20 meq PO BID@0900,1700 01/24/24 01/24/24 Pregabalin [Lyrica] 100 mg PO TID 01/24/24 01/24/24 Warfarin [Coumadin] 3 mg PO W/SUPPER 01/24/24 01/24/24 allopurinoL [Zyloprim] 300 mg PO HS 01/24/24 01/24/24 Allergies Allergy/AdvReac Type Severity Reaction Status Date / Time adhesive AdvReac SKIN Verified 01/30/24 19:17 PEELING Review of Systems ROS Statement: Those systems with pertinent positive or pertinent negative responses have been documented in the HPI. ROS Other: All systems not noted in ROS Statement are negative. Past Medical History Past Medical History: Chest Pain / Angina, CVA/TIA, Fibromyalgia, Musculoskeletal Disorder, Neurologic Disorder, Osteoarthritis (OA), Pulmonary Embolus (PE), Sleep Apnea/CPAP/BIPAP, Thyroid Disorder Additional Past Medical History / Comment(s): MULTIPLE SCLEROSIS, HX OF CVA 2006 WITH R SIDED WEAKNESS AND DYSPHASIA-MUCH IMPROVED, MIGRAINES, SLEEP APNEA(HAS C-PAP MACHINE BUT DOES NOT USE) ABD HERNIA,CHRONIC PAIN ESPECIALLY ON R SIDE OF BODY AND LOW BACK . PAINFUL FOR HER TO LIE FLAT. HX OF NOSEBLEED JUL 2014 AND RECEIVED PLASMA TRANSFUSION. takes pills with applesauce. History of Any Multi-Drug Resistant Organisms: VRE Date of last positivie culture/infection: 10/24/09 confirmed with infectious disease nurse on 08/18/16. MDRO Source:: URINE Past Surgical History: Appendectomy, Cholecystectomy, Hysterectomy Additional Past Surgical History / Comment(s): Incisional hernia repair, laparoscopic lysis of adhesions in 1987, ganglion cyst removal of the left wrist, patent foramen ovale patch in 2006, RF ablation for back pain. Past Anesthesia/Blood Transfusion Reactions: No Reported Reaction Past Psychological History: Depression Smoking Status: Never smoker Past Alcohol Use History: None Reported Past Drug Use History: None Reported - Past Family History Mother Family Medical History: Hypertension Additional Family Medical History / Comment(s): osteoporosis Father Family Medical History: Dementia, Diabetes Mellitus General Exam Limitations: altered mental status General appearance: alert, in no apparent distress Eye exam: Present: normal appearance, PERRL, EOMI. Absent: scleral icterus, conjunctival injection, periorbital swelling ENT exam: Present: normal exam, mucous membranes moist Neck exam: Present: normal inspection. Absent: tenderness, meningismus, lymphadenopathy Respiratory exam: Present: normal lung sounds bilaterally. Absent: respiratory distress, wheezes, rales, rhonchi, stridor Cardiovascular Exam: Present: regular rate, normal rhythm, normal heart sounds. Absent: systolic murmur, diastolic murmur, rubs, gallop, clicks GI/Abdominal exam: Present: soft, normal bowel sounds. Absent: distended, tenderness, guarding, rebound, rigid Extremities exam: Present: normal inspection, full ROM, normal capillary refill, other (bilateral lower extremity pain, ). Absent: tenderness, pedal edema, joint swelling, calf tenderness Back exam: Present: normal inspection Neurological exam: Present: alert, CN II-XII intact. Absent: oriented X3 Psychiatric exam: Present: normal affect, normal mood Skin exam: Present: warm, dry, intact, normal color. Absent: rash Course Vital Signs 01/30/24 01/30/24 19:11 23:54 Temperature 98.0 F 98.1 F Pulse Rate 86 82 Respiratory 22 20 Rate Blood Pressure 137/76 131/72 O2 Sat by Pulse 95 96 Oximetry Medical Decision Making - Medical Decision Making Was pt. sent in by a medical professional or institution (SUSAN Mao, UTILITY SPRAY OPERATOR, urgent care, hospital, or fpc...) When possible be specific @ -No Did you speak to anyone other than the patient for history (EMS, parent, family, police, friend...)? What history was obtained from this source @ -No Did you review nursing and triage notes (agree or disagree)? Why? @ -I reviewed and agree with nursing and triage notes Were old charts reviewed (outside hosp., previous admission, EMS record, old EKG, old radiological studies, urgent care reports/EKG's, fpc records)? Report findings @ -Reviewed the patient's chart note from 01/24/2024 where she reported bilateral lower extremity pain and was discharged home in stable condition with follow-up recommended with primary care provider. X-ray on 01/20/2024 no acute cardiopulmonary processes disease. CT of the brain with contrast reveals no acute intracranial process, remote left MCA injury with encephalomalacia Differential Diagnosis (chest pain, altered mental status, abdominal pain women, abdominal pain men, vaginal bleeding, weakness, fever, dyspnea, syncope, headache, dizziness, GI bleed, back pain, seizure, CVA, palpatations, mental health, musculoskeletal)? @ -Not applicable EKG interpreted by me (3pts min.). @ -Was pt. sent in by a medical professional or institution (SUSAN Mao, UTILITY SPRAY OPERATOR, urgent care, hospital, or fpc...) When possible be specific @ -No Did you speak to anyone other than the patient for history (EMS, parent, family, police, friend...)? What history was obtained from this source @ -Patient's at bedside. States that she has a history of bilateral chronic pain. Please see HPI for further details. Did you review nursing and triage notes (agree or disagree)? Why? @ -I reviewed and agree with nursing and triage notes Were old charts reviewed (outside hosp., previous admission, EMS record, old EKG, old radiological studies, urgent care reports/EKG's, fpc records)? Report findings @ -No old charts were reviewed Differential Diagnosis (chest pain, altered mental status, abdominal pain women, abdominal pain men, vaginal bleeding, weakness, fever, dyspnea, syncope, headache, dizziness, GI bleed, back pain, seizure, CVA, palpatations, mental health, musculoskeletal)? @ -Differential Musculoskeletal Muscular strain, contusion, ligament sprain, fracture, arthritis, septic arthritis, bursitis, cellulitis, muscle spasm, nerve compression, DVT, arterial occlusion, herpes zoster, electrolyte abnormality, tumor.... This is not meant to be in all inclusive list EKG interpreted by me (3pts min.). @ -none X-rays interpreted by me (1pt min.). @ -None done CT interpreted by me (1pt min.). @ -None done U/S interpreted by me (1pt. min.). @ -None done What testing was considered but not performed or refused? (CT, X-rays, U/S, labs)? Why? @ -None What meds were considered but not given or refused? Why? @ -None Did you discuss the management of the patient with other professionals (professionals i.e. SUSAN Mao, UTILITY SPRAY OPERATOR, lab, RT, psych nurse, director social, vacuum tank tender, teacher, chief marketing officer, shoe parts caser)? Give summary @ -No Was smoking cessation discussed for >3mins.? @ -No Was critical care preformed (if so, how long)? @ -No Were there social determinants of health that impacted care today? How? (Homelessness, low income, unemployed, alcoholism, drug addiction, transportation, low edu. Level, literacy, decrease access to med. care, custodial, rehab)? @ -No Was there de-escalation of care discussed even if they declined (Discuss DNR or withdrawal of care, Hospice)? DNR status @ -No What co-morbidities impacted this encounter? (DM, HTN, Smoking, COPD, CAD, Cancer, CVA, ARF, Chemo, Hep., AIDS, mental health diagnosis, sleep apnea, morbid obesity)? @ -CVA Was patient admitted / discharged? Hospital course, mention meds given and route, prescriptions, significant lab abnormalities, going to OR and other pertinent info. @ -Discharged. 68-year-old female with chronic bilateral lower extremity pain. Patient presents with chronic pain. Examination and vitals are stable. Reviewed the patient's workup that was completed on 01/24/2024 that was extensive and reveals no acute findings and she was discharged home in stable condition. Patient's at bedside states that this pain is chronic and she has been prescribed pain medications however they have been unable to orange picker the prescription due to the pharmacy not change his medications. Patient provided with morphine and Zofran. Reevaluation patient states that she is feeling better and is able to ambulate. Recommend patient follows up with her primary care physician outpatient for further evaluation and pain management. All questions answered at bedside and strict return parameters as per the patient and the patient's who verbalized understanding. Discussed with Dr. Scott. Undiagnosed new problem with uncertain prognosis? @ -No Drug Therapy requiring intensive monitoring for toxicity (Heparin, Nitro, Insulin, Cardizem)? @ -No Were any procedures done? @ -No Diagnosis/symptom? @ -Chronic pain Acute, or Chronic, or Acute on Chronic? @ -chronic Uncomplicated (without systemic symptoms) or Complicated (systemic symptoms)? @ -Uncomplicated Side effects of treatment? @ -No Exacerbation, Progression, or Severe Exacerbation? @ -No Poses a threat to life or bodily function? How? (Chest pain, [place], [place], pneumonia, PE, COPD, DKA, ARF, appy, cholecystitis, CVA, Diverticulitis, Homicidal, Suicidal, threat to staff... and all critical care pts) @ -No Disposition Clinical Impression: Chronic leg pain Disposition: HOME SELF-CARE Condition: Good Instructions (If sedation given, give patient instructions): Leg Pain (ED) Additional Instructions: return to the emergency department for any new or worsening symptoms. Recommend follow up with primary care provider this week for further evaluation. Is patient prescribed a controlled substance at d/c from ED?: No Referrals: Sarah Paredes MD [Primary Care Provider] - 1-2 days Time of Disposition: 22:43
[2024-01-30 23:55] VITALS: BP 131/72; PULSE 82; RESP 20; TEMP 98.1
== END 2024-01-30 23:55 | disposition home or self-care (01) ==
LOC: EC 19:04
DX: G89.29 Other chronic pain (principal); M79.662 Pain in left lower leg; M79.661 Pain in right lower leg; Z86.73 Personal history of transient ischemic attack (TIA), and cerebral infarction without residual deficits; Z91.09 Other allergy status, other than to drugs and biological substances
CPT/HCPCS: 99284; 96372 ×3; J2270; J2405

== ENCOUNTER 2024-07-04 17:24 | Inpatient (IN) | payer MEDICARE ==
--- NOTE | 2024-07-04 17:43 | ED ---
General Adult HPI - General Source: patient, family Mode of arrival: wheelchair <Tete Coyle - Last Filed: 07/04/24 17:42> <Doni Vasquez - Last Filed: 07/04/24 21:57> - General Stated complaint: AMS,Pain Time Seen by Provider: 07/04/24 17:42 - History of Present Illness Initial comments: 68-year-old female brought in by her with chief complaint of "she has COVID". Patient has been generally weak and increasingly confused. They were seen by their PCP earlier today and told to come to the hospital (Tete Colye) Dictation was produced using [employer] dictation software. please excuse any grammatical, word or spelling errors. Chief Complaint: 68-year-old female presents to the emergency department for COVID-19 History of Present Illness: Patient is a 85-year-old female she has chronic neurologic issues from previous stroke. For the last 3 days she has had COVID- like symptoms. Presents with who helps provide history present illness. Patient has cough decreased appetite. States that she has total body pain. Patient is an unreliable historian due to neurologic history. The ROS documented in this emergency department record has been reviewed and confirmed by me. Those systems with pertinent positive or negative responses have been documented in the HPI. All other systems are other negative and/or noncontributory. (Doni Vasquez) - Related Data Home Medications Medication Instructions Recorded Confirmed Baclofen [Lioresal] 10 mg PO DAILY 11/08/13 01/24/24 Furosemide [Lasix] 40 mg PO BID@0900,1700 11/08/13 01/24/24 Montelukast [Singulair] 10 mg PO DAILY 11/08/13 01/24/24 Pantoprazole Sodium [Protonix] 40 mg PO DAILY 11/08/13 01/24/24 Levothyroxine Sodium [Synthroid] 75 mcg PO DAILY 03/10/22 01/24/24 Fluticasone Nasal [place] [Flonase 1 spray EA NOSTRIL BID 09/23/22 01/24/24 Nasal [place]] Cholecalciferol (Vitamin D3) 250 mcg PO DAILY 01/24/24 01/24/24 [Vitamin D3 (125 MCG = 5,000 IU)] Ferrous Sulfate [Feosol] 325 mg PO W/SUPPER 01/24/24 01/24/24 HYDROcodone/APAP 7.5-325MG [[place] 1 tab PO TID 01/24/24 01/24/24 7.5-325] Methylphenidate HCl [Ritalin] 20 mg PO DAILY 01/24/24 01/24/24 Potassium Chloride ER [K-Dur 20] 20 meq PO BID@0900,1700 01/24/24 01/24/24 Pregabalin [Lyrica] 100 mg PO TID 01/24/24 01/24/24 Warfarin [Coumadin] 3 mg PO W/SUPPER 01/24/24 01/24/24 allopurinoL [Zyloprim] 300 mg PO HS 01/24/24 01/24/24 Allergies Allergy/AdvReac Type Severity Reaction Status Date / Time adhesive AdvReac SKIN Verified 07/04/24 18:05 PEELING Review of Systems ROS Other: All systems not noted in ROS Statement are negative. <Tete Coyle - Last Filed: 07/04/24 17:42> ROS Other: All systems not noted in ROS Statement are negative. <Doni Vasquez - Last Filed: 07/04/24 21:57> ROS Statement: Those systems with pertinent positive or pertinent negative responses have been documented in the HPI. Past Medical History Past Medical History: Chest Pain / Angina, CVA/TIA, Fibromyalgia, Musculoskeletal Disorder, Neurologic Disorder, Osteoarthritis (OA), Pulmonary Embolus (PE), Sleep Apnea/CPAP/BIPAP, Thyroid Disorder Additional Past Medical History / Comment(s): MULTIPLE SCLEROSIS, HX OF CVA 2006 WITH R SIDED WEAKNESS AND DYSPHASIA-MUCH IMPROVED, MIGRAINES, SLEEP APNEA(HAS C- PAP MACHINE BUT DOES NOT USE) ABD HERNIA,CHRONIC PAIN ESPECIALLY ON R SIDE OF BODY AND LOW BACK . PAINFUL FOR HER TO LIE FLAT. HX OF NOSEBLEED JUL 2014 AND RECEIVED PLASMA TRANSFUSION. takes pills with applesauce. History of Any Multi-Drug Resistant Organisms: VRE Date of last positivie culture/infection: 10/24/09 confirmed with infectious disease nurse on 08/18/16. MDRO Source:: URINE Past Surgical History: Appendectomy, Cholecystectomy, Hysterectomy Additional Past Surgical History / Comment(s): Incisional hernia repair, laparoscopic lysis of adhesions in 1987, ganglion cyst removal of the left wrist, patent foramen ovale patch in 2006, RF ablation for back pain. Past Anesthesia/Blood Transfusion Reactions: No Reported Reaction Past Psychological History: Depression Smoking Status: Never smoker Past Alcohol Use History: None Reported Past Drug Use History: None Reported - Past Family History Mother Family Medical History: Hypertension Additional Family Medical History / Comment(s): osteoporosis Father Family Medical History: Dementia, Diabetes Mellitus <Tete Coyle - Last Filed: 07/04/24 17:42> General Exam <Tete Coyle - Last Filed: 07/04/24 17:42> <Doni Vasquez - Last Filed: 07/04/24 21:57> - General Exam Comments Initial Comments: Visual Physical Exam Vital signs reviewed General: Well-appearing, nontoxic, no acute distress. Head: Normocephalic, atraumatic Eyes: PERRLA, EOMI ENT: Airway patent Chest: Nonlabored breathing Skin: No visual rash, normal skin tone Neuro: Alert and confused Musculoskeletal: No gross abnormalities (Tete Coyle) PHYSICAL EXAM: General Impression: Alert and oriented x3, not in acute distress HEENT: Normocephalic atraumatic, extra-ocular movements intact, pupils equal and reactive to light bilaterally, mucous membranes moist. Cardiovascular: Heart regular rate and rhythm Chest: Able to complete full sentences, no retractions, no tachypnea Abdomen: abdomen soft, non-tender, non-distended, no organomegaly Musculoskeletal: Pulses present and equal in all extremities, no peripheral edema Motor: no focal deficits noted Neurological: CN II-XII grossly intact, no focal motor or sensory deficits noted Skin: Intact with no visualized rashes Psych: Normal affect and mood (Doni Vasquez) Course Vital Signs 07/04/24 17:58 Temperature 98.6 F Pulse Rate 77 Respiratory 18 Rate Blood Pressure 138/82 O2 Sat by Pulse 97 Oximetry EKG Findings - EKG Comments: EKG Findings:: My EKG interpretation: Ventricular rate 73, sinus rhythm,. 160, QRS 75, QTc 4 4. No NE prolongation, no QTC prolongation, no ST or T-wave changes noted. Overall, this EKG is unremarkable <Doni Vasquez - Last Filed: 07/04/24 21:57> Medical Decision Making <Tete Coyle - Last Filed: 07/04/24 17:42> - Lab Data Result diagrams: 07/04/24 20:01 07/04/24 20:01 <Doni Vasquez - Last Filed: 07/04/24 21:57> - Medical Decision Making I performed the quick note portion of this visit, electronically signed Tete Coyle PA-C (Tete Coyle) Was pt. sent in by a medical professional or institution (SUSAN Mao, STRATEGIC PLANNING MANAGER, urgent care, hospital, or custodial...) When possible be specific @ -No Did you speak to anyone other than the patient for history (EMS, parent, family, police, friend...)? What history was obtained from this source @ -History obtained from as described above Did you review nursing and triage notes (agree or disagree)? Why? @ -I reviewed and agree with nursing and triage notes Were old charts reviewed (outside hosp., previous admission, EMS record, old EKG, old radiological studies, urgent care reports/EKG's, custodial records)? Report findings @ -No old charts were reviewed Differential Diagnosis (chest pain, altered mental status, abdominal pain women, abdominal pain men, vaginal bleeding, musculoskeletal, weakness, fever, dyspnea, syncope, headache, dizziness, GI bleed, back pain, seizure, CVA, palpatations, mental health)? @ -Differential Weakness: Hypoglycemia, shock, sepsis, hyponatremia, anemia, infection, IL, ETOH, adverse medicine reaction, overdose, stroke, this is not meant to be an all-inclusive list. EKG interpreted by me (3pts min.). @ -See above X-rays interpreted by me (1pt min.). @ -Chest x-ray shows no acute processes CT interpreted by me (1pt min.). @ -None done U/S interpreted by me (1pt. min.). @ -None done What testing was considered but not performed or refused? (CT, X-rays, U/S, labs)? Why? @ -None What meds were considered but not given or refused? Why? @ -None Was smoking cessation discussed for >3mins.? @ -No Were there social determinants of health that impacted care today? How? (Homelessness, low income, unemployed, alcoholism, drug addiction, transportation, low edu. Level, literacy, decrease access to med. care, penitentiary, rehab)? @ -No Was there de-escalation of care discussed even if they declined (Discuss DNR or withdrawal of care, Hospice)? DNR status @ -No What co-morbidities impacted this encounter? (DM, HTN, Smoking, COPD, CAD, Cancer, CVA, ARF, Chemo, Hep., AIDS, mental health diagnosis, sleep apnea, morbid obesity)? @ -Debility, CVA Was patient admitted / discharged? Hospital course, mention meds given and route, prescriptions, significant lab abnormalities, going to OR and other pertinent info. @ -68-year-old female presents emergency department COVID-19. She was sent here for ER evaluation and admission. Patient lives at home with her . is being admitted for pneumonia. Case discussed with primary care doctor who would like patient to be admitted for in-hospital care because patient's who is patient's primary workers compensation coordinator is being admitted. She has a poor social situation there is no other family that she could be cared for by. Vital signs are stable. Laboratory evaluation obtained. Labs within acceptable limits. Coronavirus positive. Imaging studies are negative. Patient admitted. Did you discuss the management of the patient with other professionals (professionals i.e. , PA, STRATEGIC PLANNING MANAGER, lab, RT, psych nurse, social worker school, railway patrol officer, teacher, promotion officer, showcase trimmer)? Give summary @ -Case discussed with PCP for admission Was critical care preformed (if so, how long)? @ -No Undiagnosed new problem with uncertain prognosis? @ -No Drug Therapy requiring intensive monitoring for toxicity (Heparin, Nitro, Insulin, Cardizem)? @ -No Were any procedures done? @ -No Diagnosis/symptom? Acute, or Chronic, or Acute on Chronic? Uncomplicated (without systemic symptoms) or Complicated (systemic symptoms)? @ -Coronavirus, gravely disabled Side effects of treatment? @ -No Exacerbation, Progression, or Severe Exacerbation? @ -No Poses a threat to life or bodily function? How? (Chest pain, USA, IL, pneumonia, PE, COPD, DKA, ARF, appy, cholecystitis, CVA, Diverticulitis, Homicidal, Suicidal, threat to staff... and all critical care pts) @ -yes (Doni Vasquez) - Lab Data Lab Results 07/04/24 07/04/24 07/04/24 Range/Units 19:01 20:01 20:01 WBC 4.9 (3.8-10.6) k/uL RBC 5.11 (3.80-5.40) m/uL Hgb 15.8 (11.4-16.0) gm/dL Hct 46.5 H (34.0-46.0) % MCV 90.9 (80.0-100.0) fL MCH 30.8 (25.0-35.0) pg MCHC 33.9 (31.0-37.0) g/dL RDW 13.9 (11.5-15.5) % Plt Count 109 L (150-450) k/uL MPV 10.7 Neutrophils % 73 % Lymphocytes % 15 % Monocytes % 9 % Eosinophils % 0 % Basophils % 1 % Neutrophils # 3.6 (1.3-7.7) k/uL Lymphocytes # 0.7 L (1.0-4.8) k/uL Monocytes # 0.4 (0-1.0) k/uL Eosinophils # 0.0 (0-0.7) k/uL Basophils # 0.0 (0-0.2) k/uL PT 20.0 H (10.0-12.5) sec INR 2.0 H (<1.2) APTT 27.3 (22.0-30.0) sec Sodium (137-145) mmol/L Potassium (3.5-5.1) mmol/L Chloride (98-107) mmol/L Carbon Dioxide (22-30) mmol/L Anion Gap mmol/L BUN (7-17) mg/dL Creatinine (0.52-1.04) mg/dL Est GFR (CKD-EPI)AfAm (>60 ml/min/1.73 sqM) Est GFR (CKD-EPI)NonAf (>60 ml/min/1.73 sqM) Glucose (74-99) mg/dL Calcium (8.4-10.2) mg/dL Total Bilirubin (0.2-1.3) mg/dL AST (14-36) U/L ALT (4-34) U/L Alkaline Phosphatase (38-126) U/L Troponin I (0.000-0.034) ng/mL Total Protein (6.3-8.2) g/dL Albumin (3.5-5.0) g/dL Influenza Type A (PCR) Not Detected (Not Detectd) Influenza Type B (PCR) Not Detected (Not Detectd) RSV (PCR) Not Detected (Not Detectd) SARS-CoV-2 (PCR) Detected A (Not Detectd) 07/04/24 07/04/24 Range/Units 20:01 20:01 WBC (3.8-10.6) k/uL RBC (3.80-5.40) m/uL Hgb (11.4-16.0) gm/dL Hct (34.0-46.0) % MCV (80.0-100.0) fL MCH (25.0-35.0) pg MCHC (31.0-37.0) g/dL RDW (11.5-15.5) % Plt Count (150-450) k/uL MPV Neutrophils % % Lymphocytes % % Monocytes % % Eosinophils % % Basophils % % Neutrophils # (1.3-7.7) k/uL Lymphocytes # (1.0-4.8) k/uL Monocytes # (0-1.0) k/uL Eosinophils # (0-0.7) k/uL Basophils # (0-0.2) k/uL PT (10.0-12.5) sec INR (<1.2) APTT (22.0-30.0) sec Sodium 142 (137-145) mmol/L Potassium 3.8 (3.5-5.1) mmol/L Chloride 101 (98-107) mmol/L Carbon Dioxide 32 H (22-30) mmol/L Anion Gap 9 mmol/L BUN 29 H (7-17) mg/dL Creatinine 1.45 H (0.52-1.04) mg/dL Est GFR (CKD-EPI)AfAm 42 (>60 ml/min/1.73 sqM) Est GFR (CKD-EPI)NonAf 37 (>60 ml/min/1.73 sqM) Glucose 141 H (74-99) mg/dL Calcium 9.7 (8.4-10.2) mg/dL Total Bilirubin 1.2 (0.2-1.3) mg/dL AST 21 (14-36) U/L ALT 16 (4-34) U/L Alkaline Phosphatase 104 (38-126) U/L Troponin I <0.012 (0.000-0.034) ng/mL Total Protein 6.9 (6.3-8.2) g/dL Albumin 4.5 (3.5-5.0) g/dL Influenza Type A (PCR) (Not Detectd) Influenza Type B (PCR) (Not Detectd) RSV (PCR) (Not Detectd) SARS-CoV-2 (PCR) (Not Detectd) Disposition <Tete Coyle - Last Filed: 07/04/24 17:42> Decision Time: 21:57 <Doni Vasquez - Last Filed: 07/04/24 21:57> Clinical Impression: Coronavirus infection, Gravely disabled Disposition: ADMITTED IP TO THIS HOSP Condition: Fair Referrals: Sarah Paredes MD [Primary Care Provider] - 1-2 days
[2024-07-04 19:52] LABS: Influenza A Not Detected (Not Detectd); Influenza B Not Detected (Not Detectd); RSV Not Detected (Not Detectd)
[2024-07-04 20:24] LABS: Basophils % (A) 1 %; Eosinophils % (A) 0 %; HCT 46.5 % (34.0-46.0); HGB 15.8 gm/dL (11.4-16.0); Lymphocytes # (A) 0.7 k/uL (1.0-4.8); Lymphocytes % (A) 15 %; MCH 30.8 pg (25.0-35.0); MCHC 33.9 g/dL (31.0-37.0); MCV 90.9 fL (80.0-100.0); Mean Platelet Volume 10.7; Monocytes # (A) 0.4 k/uL (0-1.0); Monocytes % (A) 9 %; Neutrophils # (A) 3.6 k/uL (1.3-7.7); Neutrophils % (A) 73 %; Platelet Count 109 k/uL (150-450); RBC 5.11 m/uL (3.80-5.40); RDW 13.9 % (11.5-15.5); WBC 4.9 k/uL (3.8-10.6)
--- NOTE | 2024-07-04 20:26 | XR ---
EXAMINATION TYPE: XR chest 2V DATE OF EXAM: 07/04/2024 8:08 PM COMPARISON: Chest radiographs from 01/24/2024 CLINICAL INDICATION: Female, 68 years old with history of altered mental status; [facility] TECHNIQUE: XR chest 2V Frontal and lateral views of the chest. FINDINGS: Lungs/Pleura: There is no evidence of pleural effusion, focal consolidation, or pneumothorax. Pulmonary vascularity: Unremarkable. Heart/mediastinum: Cardiomediastinal silhouette is unremarkable. Musculoskeletal: No acute osseous pathology. IMPRESSION: Low lung volumes with a generalized hazy appearance which could represent atelectasis versus pulmonar y edema correlate with serum BNP. [facility], , 07/04/2024 8:24 PM
[2024-07-04 20:34] LABS: Partial Thromboplastin Time 27.3 sec (22.0-30.0)
[2024-07-04 20:44] LABS: ALT 16 U/L (4-34); AST 21 U/L (14-36); African American GFR (CKD) 42 (>60 ml/min/1.73 sqM); Albumin 4.5 g/dL (3.5-5.0); Alkaline Phosphatase 104 U/L (38-126); Anion Gap 9 mmol/L; Blood Urea Nitrogen 29 mg/dL (7-17); Calcium 9.7 mg/dL (8.4-10.2); Carbon Dioxide 32 mmol/L (22-30); Chloride 101 mmol/L (98-107); Glucose 141 mg/dL (74-99); Non-African American GFR(CKD) 37 (>60 ml/min/1.73 sqM); Potassium 3.8 mmol/L (3.5-5.1); Sodium 142 mmol/L (137-145); Total Bilirubin 1.2 mg/dL (0.2-1.3); Total Protein 6.9 g/dL (6.3-8.2)
[2024-07-04] MEDS ORDERED: NALOXONE 0.4 MG/ML 1 ML VIAL IV PRN (22:59)
[2024-07-05 01:42] LABS: Glucose,Whole Blood 133 mg/dL (70-110)
[2024-07-05 05:55] LABS: Appearance,Urine Clear (Clear); Bilirubin,Urine Negative (Negative); Blood,Urine Negative (Negative); Color,Urine Yellow; Glucose,Urine (UA) Negative (Negative); Ketones,Urine Trace (Negative); Leukocyte Esterase,Urine Negative (Negative); Nitrite,Urine Negative (Negative); PH, Urine 5.5 (5.0-8.0); Protein,Urine Negative (Negative); Specific Gravity,Urine 1.016 (1.001-1.035); Urobilinogen,Urine <2.0 mg/dL (<2.0)
--- NOTE | 2024-07-05 10:07 | P.HPIM ---
History of Present Illness H&P Date: 07/05/24 Huong Cooper is a 68-year-old female patient who presented with concerns of generalized weakness and COVID-positive. Patient has chronic neurological deficits from previous stroke. Patient has noted to have COVID-like symptoms over the past 3 days with cough and decreased appetite. Additional medical history includes chest pain, fibromyalgia, osteoarthritis, PE, multiple sclerosis. Chest x-ray completed showing low lung volumes with a generalized hazy appearance which could represent atelectasis versus pulmonary edema lab work revealing COVID-19 positive negative influenza and RSV. Troponin negative. Creatinine 1.45 bun 29. White blood cell 4.9. At this time patient will be admitted infectious disease services consulted Review of Systems Please refer to HPI otherwise unremarkable Past Medical History Past Medical History: Chest Pain / Angina, CVA/TIA, Fibromyalgia, Musculoskeletal Disorder, Neurologic Disorder, Osteoarthritis (OA), Pulmonary Embolus (PE), Sleep Apnea/CPAP/BIPAP, Thyroid Disorder Additional Past Medical History / Comment(s): MULTIPLE SCLEROSIS, HX OF CVA 2006 WITH R SIDED WEAKNESS AND DYSPHASIA-MUCH IMPROVED, MIGRAINES, SLEEP APNEA(HAS C- PAP MACHINE BUT DOES NOT USE) ABD HERNIA,CHRONIC PAIN ESPECIALLY ON R SIDE OF BODY AND LOW BACK . PAINFUL FOR HER TO LIE FLAT. HX OF NOSEBLEED JUL 2014 AND RECEIVED PLASMA TRANSFUSION. takes pills with applesauce. History of Any Multi-Drug Resistant Organisms: VRE Date of last positivie culture/infection: 10/24/09 confirmed with infectious disease nurse on 08/18/16. MDRO Source:: URINE Past Surgical History: Appendectomy, Cholecystectomy, Hysterectomy Additional Past Surgical History / Comment(s): Incisional hernia repair, laparoscopic lysis of adhesions in 1987, ganglion cyst removal of the left wrist, patent foramen ovale patch in 2006, RF ablation for back pain. Past Anesthesia/Blood Transfusion Reactions: No Reported Reaction Past Psychological History: Depression Additional Psychological History / Comment(s): CELEXA. PT HAS DIFFICULTY W/SPEECH BUT IS MUCH IMPROVED. HAS TO LOOK AT DIETARY MENU TO ORDER CAN'T DO IT BY PHONE. Pt resides with her spouse. She uses a cane to ambulate. She also has a walker. Spouse drives her to appointments. Spouse assists her with some ADLs when needed. Smoking Status: Never smoker Past Alcohol Use History: None Reported Past Drug Use History: None Reported Additional Drug Use History / Comment(s): Lives at home with her requires some assistance with ADLs at times - Past Family History Mother Family Medical History: Hypertension Additional Family Medical History / Comment(s): osteoporosis Father Family Medical History: Dementia, Diabetes Mellitus Medications and Allergies Home Medications Medication Instructions Recorded Confirmed Type Baclofen [Lioresal] 10 mg PO DAILY 11/08/13 07/05/24 History Furosemide [Lasix] 40 mg PO BID@0900,1700 11/08/13 07/05/24 History Montelukast [Singulair] 10 mg PO DAILY 11/08/13 07/05/24 History Pantoprazole Sodium [Protonix] 40 mg PO DAILY 11/08/13 07/05/24 History Levothyroxine Sodium [Synthroid] 75 mcg PO DAILY 03/10/22 07/05/24 History Fluticasone Nasal [place] [Flonase 1 spray EA NOSTRIL DAILY 09/23/22 07/05/24 History Nasal [place]] Ferrous Sulfate [Feosol] 325 mg PO W/SUPPER 01/24/24 07/05/24 History HYDROcodone/APAP 7.5-325MG [[place] 1 tab PO TID 01/24/24 07/05/24 History 7.5-325] Methylphenidate HCl [Ritalin] 20 mg PO BID 01/24/24 07/05/24 History Potassium Chloride ER [K-Dur 20] 20 meq PO BID@0900,1700 01/24/24 07/05/24 History Pregabalin [Lyrica] 100 mg PO TID 01/24/24 07/05/24 History Warfarin [Coumadin] 3 mg PO W/SUPPER 01/24/24 07/05/24 History allopurinoL [Zyloprim] 300 mg PO HS 01/24/24 07/05/24 History Albuterol Sulfate [Proair 1 - 2 puff INHALATION RT-QID 07/05/24 07/05/24 History Respiclick] Aspirin 81 mg PO DAILY 07/05/24 07/05/24 History Cholecalciferol [Vitamin D3 (25 50 mcg PO DAILY 07/05/24 07/05/24 History Mcg = 1000 Iu)] Fexofenadine HCl [Mimi Allergy] 180 mg PO DAILY 07/05/24 07/05/24 History Nitroglycerin Sl Tabs [Nitrostat] 0.4 mg SUBLINGUAL Q5M PRN 07/05/24 07/05/24 History Allergies Allergy/AdvReac Type Severity Reaction Status Date / Time adhesive AdvReac SKIN Verified 07/05/24 09:43 PEELING Physical Exam Vitals: Vital Signs Temp Pulse Pulse Resp BP BP Pulse Ox 07/05/24 07:09 99.0 F 71 15 127/78 93 L 07/05/24 02:38 98.2 F 73 16 144/73 99 07/05/24 01:44 98.5 F 71 19 124/91 95 07/04/24 23:30 98.6 F 74 19 129/96 95 07/04/24 17:58 98.6 F 77 18 138/82 97 Intake and Output 07/04/24 07/05/24 07/05/24 22:59 06:59 14:59 Output Total 675 Balance -675 Output: Urine 675 Straight 675 Other: Voiding Method Diaper External Catheter # Voids 1 Weight 145.15 kg 145.15 kg Head normocephalic Neck supple Lungs clear to auscultation bilaterally no wheezing or crackles Heart regular rate and rhythm S1-S2, no rub or gallop Abdomen is soft nontender nondistended positive bowel sounds no hepatosplenomegaly Extremities no edema Neuro alert and orientated to 3. Dysphagia Results CBC & Chem 7: 07/04/24 20:01 07/04/24 20:01 Labs: Abnormal Lab Results - Last 24 Hours (Table) 07/04/24 07/04/24 07/04/24 Range/Units 19:01 20:01 20:01 Hct 46.5 H (34.0-46.0) % Plt Count 109 L (150-450) k/uL Lymphocytes # 0.7 L (1.0-4.8) k/uL PT 20.0 H (10.0-12.5) sec INR 2.0 H (<1.2) Carbon Dioxide (22-30) mmol/L BUN (7-17) mg/dL Creatinine (0.52-1.04) mg/dL Glucose (74-99) mg/dL POC Glucose (mg/dL) (70-110) mg/dL Urine Ketones (Negative) SARS-CoV-2 (PCR) Detected A (Not Detectd) 07/04/24 07/05/24 07/05/24 Range/Units 20:01 01:41 05:37 Hct (34.0-46.0) % Plt Count (150-450) k/uL Lymphocytes # (1.0-4.8) k/uL PT (10.0-12.5) sec INR (<1.2) Carbon Dioxide 32 H (22-30) mmol/L BUN 29 H (7-17) mg/dL Creatinine 1.45 H (0.52-1.04) mg/dL Glucose 141 H (74-99) mg/dL POC Glucose (mg/dL) 133 H (70-110) mg/dL Urine Ketones Trace H (Negative) SARS-CoV-2 (PCR) (Not Detectd) Thrombosis Risk Factor Assmnt - Choose All That Apply Any of the Below Risk Factors Present?: Yes Each Factor Represents 1 point: Obesity (BMI >25) Other Risk Factors: Yes Each Risk Factor Represents 2 Points: Age 61-74 years Each Risk Factor Represents 3 Points: History of DVT/PE Thrombosis Risk Factor Assessment Total Risk Factor Score: 6 Thrombosis Risk Factor Assessment Level: High Risk Assessment and Plan Assessment: 1. Generalized weakness secondary to COVID-19 positive 2. Acute kidney injury 3. History of pulmonary embolism maintained on Coumadin 4. History of chronic kidney disease stage III 5. History of multiple sclerosis 6. History of fibromyalgia 7. History of osteoarthritis 8. History of CVA with right-sided deficit and dysphagia DVT prophylaxis Coumadin. GI prophylaxis Pepcid Infectious disease service consulted continue gentle hydration Repeat labs ordered in a.m. Time with Patient: Greater than 30 (Greater than 60% of the total time spent in counseling and coordination of care)
[2024-07-05 10:51] LABS: INR 1.4 (<1.2); Prothrombin Time 14.5 sec (10.0-12.5)
[2024-07-05] MEDS: METHYLPHENIDATE HCL 10 MG TAB PO SCH (14:53)
[2024-07-05] MEDS ORDERED: ZINC OXIDE PASTE (Z-GUARD) 1 APPLIC TOPICAL PRN (17:17)
[2024-07-05] MEDS: SODIUM CHLORIDE 0.9% 1,000 ML IV SCH (17:17)
[2024-07-05] MEDS: PREGABALIN 100 MG CAP PO SCH (17:23)
[2024-07-05] MEDS: FERROUS SULFATE 325 MG TAB PO SCH (17:23)
[2024-07-05] MEDS: POTASSIUM CHLORIDE ER 20 MEQ TAB.ER PO SCH (17:24)
[2024-07-05] MEDS: HYDROcodone/APAP 7.5-325MG 1 EACH TAB PO SCH (17:24)
[2024-07-05] MEDS: WARFARIN 2 MG TAB PO ONE (17:24)
[2024-07-05] MEDS ORDERED: WARFARIN 3 MG TAB PO SCH (17:30)
[2024-07-05] MEDS: allopurinoL 300 MG TAB PO SCH (21:19)
[2024-07-06] MEDS: LEVOTHYROXINE 75 MCG TAB PO SCH (05:38)
--- NOTE | 2024-07-06 07:09 | P.CONS ---
History of Present Illness - Reason for Consult Consult date: 07/05/24 COVID-19 Requesting physician: Sarah Paredes - Chief Complaint Increasing weakness and confusion x 3 days - History of Present Illness Patient is a 68-year-old female with a past medical history significant for fibromyalgia CVA TIA PE sleep apnea hypothyroidism multiple sclerosis patient has been brought into the hospital for evaluation of generalized weakness and increasing confusion patient apparently was seen by her PCP the day of presentation to hospital with the patient tested positive for COVID-19 and advised to go to the hospital patient symptom has been going on for about 3 days before presentation to the hospital and has been mostly weakness increasing confusion patient also have decreased appetite patient did have a cough mild intensity and mostly dry in nature notes complaining of generalized bodyaches no significant shortness of breath on presentation to the hospital the patient was afebrile 1 low-grade fever of 99 F this morning patient was not tachycardic or hypotensive and currently not hypoxic or need for supplemental oxygen patient did have white count of 4.9 with lymphopenia BUN and creatinine mildly elevated liver enzymes are normal urine has been negative patient did have a chest x-ray low lung volumes with generalized hazy appearance which could represent atelectasis versus pulmonary edema infectious disease was consulted for further management regarding COVID-19 Review of Systems Positive points has been mentioned in HPI complete review could not be obtained because of his underlying mental status Past Medical History Past Medical History: Chest Pain / Angina, CVA/TIA, Fibromyalgia, Musculoskeletal Disorder, Neurologic Disorder, Osteoarthritis (OA), Pulmonary Embolus (PE), Sleep Apnea/CPAP/BIPAP, Thyroid Disorder Additional Past Medical History / Comment(s): MULTIPLE SCLEROSIS, HX OF CVA 2006 WITH R SIDED WEAKNESS AND DYSPHASIA-MUCH IMPROVED, MIGRAINES, SLEEP APNEA(HAS C- PAP MACHINE BUT DOES NOT USE) ABD HERNIA,CHRONIC PAIN ESPECIALLY ON R SIDE OF BODY AND LOW BACK . PAINFUL FOR HER TO LIE FLAT. HX OF NOSEBLEED JUL 2014 AND RECEIVED PLASMA TRANSFUSION. takes pills with applesauce. 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 MDRO Source:: URINE Past Surgical History: Appendectomy, Cholecystectomy, Hysterectomy Additional Past Surgical History / Comment(s): Incisional hernia repair, laparoscopic lysis of adhesions in 1987, ganglion cyst removal of the left wrist, patent foramen ovale patch in 2006, RF ablation for back pain. Past Anesthesia/Blood Transfusion Reactions: No Reported Reaction Past Psychological History: Depression Additional Psychological History / Comment(s): CELEXA. PT HAS DIFFICULTY W/SPEECH BUT IS MUCH IMPROVED. HAS TO LOOK AT DIETARY MENU TO ORDER CAN'T DO IT BY PHONE. Pt resides with her spouse. She uses a cane to ambulate. She also has a walker. Spouse drives her to appointments. Spouse assists her with some ADLs when needed. Smoking Status: Never smoker Past Alcohol Use History: None Reported Past Drug Use History: None Reported Additional Drug Use History / Comment(s): Lives at home with her requires some assistance with ADLs at times - Past Family History Mother Family Medical History: Hypertension Additional Family Medical History / Comment(s): osteoporosis Father Family Medical History: Dementia, Diabetes Mellitus Medications and Allergies Home Medications Medication Instructions Recorded Confirmed Type Baclofen [Lioresal] 10 mg PO DAILY 11/08/13 07/05/24 History Furosemide [Lasix] 40 mg PO BID@0900,1700 11/08/13 07/05/24 History Montelukast [Singulair] 10 mg PO DAILY 11/08/13 07/05/24 History Pantoprazole Sodium [Protonix] 40 mg PO DAILY 11/08/13 07/05/24 History Levothyroxine Sodium [Synthroid] 75 mcg PO DAILY 03/10/22 07/05/24 History Fluticasone Nasal [place] [Flonase 1 spray EA NOSTRIL DAILY 09/23/22 07/05/24 History Nasal [place]] Ferrous Sulfate [Feosol] 325 mg PO W/SUPPER 01/24/24 07/05/24 History HYDROcodone/APAP 7.5-325MG [Empire 1 tab PO TID 01/24/24 07/05/24 History 7.5-325] Methylphenidate HCl [Ritalin] 20 mg PO BID 01/24/24 07/05/24 History Potassium Chloride ER [K-Dur 20] 20 meq PO BID@0900,1700 01/24/24 07/05/24 History Pregabalin [Lyrica] 100 mg PO TID 01/24/24 07/05/24 History Warfarin [Coumadin] 3 mg PO W/SUPPER 01/24/24 07/05/24 History allopurinoL [Zyloprim] 300 mg PO HS 01/24/24 07/05/24 History Albuterol Sulfate [Proair 1 - 2 puff INHALATION RT-QID 07/05/24 07/05/24 History Respiclick] Aspirin 81 mg PO DAILY 07/05/24 07/05/24 History Cholecalciferol [Vitamin D3 (25 50 mcg PO DAILY 07/05/24 07/05/24 History Mcg = 1000 Iu)] Fexofenadine HCl [Mimi Allergy] 180 mg PO DAILY 07/05/24 07/05/24 History Nitroglycerin Sl Tabs [Nitrostat] 0.4 mg SUBLINGUAL Q5M PRN 07/05/24 07/05/24 History Allergies Allergy/AdvReac Type Severity Reaction Status Date / Time adhesive AdvReac SKIN Verified 07/05/24 09:43 PEELING Physical Exam Vitals: Vital Signs Temp Pulse Pulse Resp BP BP Pulse Ox 07/05/24 07:09 99.0 F 71 15 127/78 93 L 07/05/24 02:38 98.2 F 73 16 144/73 99 07/05/24 01:44 98.5 F 71 19 124/91 95 07/04/24 23:30 98.6 F 74 19 129/96 95 07/04/24 17:58 98.6 F 77 18 138/82 97 Intake and Output 07/04/24 07/05/24 07/05/24 22:59 06:59 14:59 Output Total 675 Balance -675 Output: Urine 675 Straight 675 Other: Voiding Method Diaper External Catheter # Voids 1 Weight 145.15 kg 145.15 kg GENERAL DESCRIPTION: Elderly female e lying in bed, no distress. No tachypnea or accessory muscle of respiration use. HEENT: Shows Pallor , no scleral icterus. Oral mucous membrane is dry. NECK: Trachea central, no thyromegaly. LUNGS: Unlabored breathing. Decreased breath sound at the base HEART: S1, S2, regular rate and rhythm. No loud murmur ABDOMEN: Soft, no tenderness , EXTREMITIES: No edema of feet. SKIN: No rash, no masses palpable. NEUROLOGICAL: The patient is lethargic confused orientation could not be determined Results CBC & Chem 7: 07/04/24 20:01 07/04/24 20:01 Labs: Abnormal Lab Results - Last 24 Hours (Table) 07/04/24 07/04/24 07/04/24 Range/Units 19:01 20:01 20:01 Hct 46.5 H (34.0-46.0) % Plt Count 109 L (150-450) k/uL Lymphocytes # 0.7 L (1.0-4.8) k/uL PT 20.0 H (10.0-12.5) sec INR 2.0 H (<1.2) Carbon Dioxide (22-30) mmol/L BUN (7-17) mg/dL Creatinine (0.52-1.04) mg/dL Glucose (74-99) mg/dL POC Glucose (mg/dL) (70-110) mg/dL Urine Ketones (Negative) SARS-CoV-2 (PCR) Detected A (Not Detectd) 07/04/24 07/05/24 07/05/24 Range/Units 20:01 01:41 05:37 Hct (34.0-46.0) % Plt Count (150-450) k/uL Lymphocytes # (1.0-4.8) k/uL PT (10.0-12.5) sec INR (<1.2) Carbon Dioxide 32 H (22-30) mmol/L BUN 29 H (7-17) mg/dL Creatinine 1.45 H (0.52-1.04) mg/dL Glucose 141 H (74-99) mg/dL POC Glucose (mg/dL) 133 H (70-110) mg/dL Urine Ketones Trace H (Negative) SARS-CoV-2 (PCR) (Not Detectd) 07/05/24 Range/Units 10:13 Hct (34.0-46.0) % Plt Count (150-450) k/uL Lymphocytes # (1.0-4.8) k/uL PT 14.5 H (10.0-12.5) sec INR 1.4 H (<1.2) Carbon Dioxide (22-30) mmol/L BUN (7-17) mg/dL Creatinine (0.52-1.04) mg/dL Glucose (74-99) mg/dL POC Glucose (mg/dL) (70-110) mg/dL Urine Ketones (Negative) SARS-CoV-2 (PCR) (Not Detectd) Assessment and Plan (1) Coronavirus infection Current Visit: Yes Status: Acute Code(s): B34.2 - CORONAVIRUS INFECTION, UNSPECIFIED SNOMED Code(s): 736709002 Plan: 1patient presented to hospital with generalized weakness body aches she did have mild cough and has been tested positive for COVID-19 patient is currently not running any fever she is not hypoxic or need for supplemental oxygen chest x-ray has been mostly atelectasis at the bases rather than features suggestive COVID-19 infection more likely dealing with a mild COVID illness with no pneumonia clinically and treat will be mostly supportive 2-for now continue the patient on Coumadin and zinc ascorbic acid and check CRP and procalcitonin if any hypoxia may add dexamethasone 3-drop exacerbation We will follow on clinical condition and cultures to further adjust medication if needed Thank you for this consultation we will follow the patient along with you Dictation was produced using [employer] dictation software. please excuse any grammatical, word or spelling errors. Time with Patient: Greater than 30
[2024-07-06] MEDS: ASCORBIC ACID 500 MG TAB PO SCH (08:41)
[2024-07-06] MEDS: LORATADINE 10 MG TAB PO SCH (08:41)
[2024-07-06] MEDS: CHOLECALCIFEROL 25 MCG (1000 IU) TABLET PO SCH (08:41)
[2024-07-06] MEDS: PANTOPRAZOLE 40 MG TABLET PO SCH (08:41)
[2024-07-06] MEDS: ZINC SULFATE 220 MG CAP PO SCH (08:41)
[2024-07-06] MEDS: MONTELUKAST 10 MG TAB PO SCH (08:41)
[2024-07-06] MEDS: BACLOFEN 10 MG TAB PO SCH (08:41)
[2024-07-06] MEDS: FLUTICASONE NASAL 50MCG/SPRAY 16GM BTL EA NOSTRIL SCH (08:42)
[2024-07-06] MEDS: ASPIRIN 81 MG PO SCH (08:42)
[2024-07-06 10:10] LABS: ALT 11 U/L (8-44); AST 17 U/L (13-35); Albumin 3.8 g/dL (3.8-4.9); Alkaline Phosphatase 85 U/L (41-126); BUN/Creat Ratio 18.38 Ratio (12.00-20.00); Blood Urea Nitrogen 23.9 mg/dL (9.0-27.0); Carbon Dioxide 26.2 mmol/L (21.6-31.8); Chloride 105 mmol/L (96-109); Globulin 1.9 g/dL (1.6-3.3); Glucose 95 mg/dL (70-110); Potassium 3.9 mmol/L (3.5-5.5); Sodium 144 mmol/L (135-145); Total Bilirubin 0.8 mg/dL (0.3-1.2); Total Protein 5.7 g/dL (6.2-8.2)
[2024-07-06 10:38] LABS: INR 1.38 sec (0.93-1.11); Prothrombin Time 15.4 sec (9.9-11.9)
[2024-07-06 11:05] LABS: Basophils # (A) 0.02 X 10*3/uL (0.00-0.10); Basophils % (A) 0.5 %; Eosinophils # (A) 0.09 X 10*3/uL (0.04-0.35); Eosinophils % (A) 2.5 %; HCT 43.3 % (37.2-46.3); HGB 13.9 g/dL (12.0-15.0); Lymphocytes # (A) 0.94 X 10*3/uL (0.90-5.00); Lymphocytes % (A) 25.8 %; MCH 29.7 pg (27.0-32.0); MCHC 32.1 g/dL (32.0-37.0); MCV 92.5 FL (80.0-97.0); Mean Platelet Volume 14.1 FL (9.5-12.2); Monocytes # (A) 0.55 X 10*3/uL (0.20-1.00); Monocytes % (A) 15.1 %; NRBC Per 100 WBC 0 X 10*3/uL (0.00-0.01); Neutrophils # (A) 2.03 X 10*3/uL (1.80-7.70); Neutrophils % (A) 55.8 %; Platelet Count 93 X 10*3/uL (140-440); RBC 4.68 X 10*6/uL (4.10-5.20); RDW 13.6 % (11.5-14.5); WBC 3.64 X 10*3/uL (4.50-10.00)
--- NOTE | 2024-07-06 11:28 | P.PN ---
Subjective Progress Note Date: 07/06/24 Huong Cooper is a 68-year-old female patient who presented with concerns of generalized weakness and COVID-positive. Patient has chronic neurological deficits from previous stroke. Patient has noted to have COVID-like symptoms over the past 3 days with cough and decreased appetite. Additional medical history includes chest pain, fibromyalgia, osteoarthritis, PE, multiple sclerosis. Chest x-ray completed showing low lung volumes with a generalized hazy appearance which could represent atelectasis versus pulmonary edema lab work revealing COVID-19 positive negative influenza and RSV. Troponin negative. Creatinine 1.45 bun 29. White blood cell 4.9. At this time patient will be admitted infectious disease services consulted On 07/06/2024 patient was seen and examined on the medical floor she is alert and oriented x 3 in no apparent distress she is still complaining of shortness of breath cough and chest congestion, otherwise she denies any complaints there is no fever or chills no headache or dizziness, no chest pain no nausea or vomiting no abdominal pain no diarrhea and no urinary symptoms. Vital exam reveals a temperature of 97.6 pulse 98 respirations 17 blood pressure 137/78 pulse ox 95% on room air. INR is subtherapeutic at 1.38, pharmacy are dosing, at this time I will add and bridge of Lovenox, patient is at very high risk for DVT and pulmonary embolism due to complete immobility and previous history of DVT and PE. Will continue to follow closely. Patient will need to go to rehab after this current admission. Objective - Vital Signs Vital signs: Vital Signs Temp 97.6 F 07/06/24 07:37 Pulse 98 07/06/24 07:37 Resp 17 07/06/24 07:37 BP 137/78 07/06/24 07:37 Pulse Ox 95 07/06/24 07:37 FiO2 Intake & Output 07/05/24 07/06/24 07/06/24 18:59 06:59 18:59 Intake Total 500 240 Output Total 25 250 200 Balance -25 250 40 Intake: Intake, IV Titration 500 Amount Sodium Chloride 0.9% 1, 500 000 ml @ 50 mls/hr IV . Q20H [facility] Rx#:[id number] Oral 240 Output: Urine 25 250 200 Other: Voiding Method Incontinent External Catheter External Catheter - Exam In general patient is alert and oriented in no apparent distress Head normocephalic and atraumatic Neck supple no JVD no goiter Lungs clear to auscultation bilaterally no wheezing or crackles Heart regular rate and rhythm S1-S2, no rub or gallop Abdomen is soft nontender nondistended positive bowel sounds no hepatosplenomegaly Extremities no edema Neuro chronic findings related to previous stroke, otherwise no acute neurological deficit - Labs CBC & Chem 7: 07/06/24 05:18 07/06/24 05:18 Labs: Abnormal Lab Results - Last 24 Hours (Table) 07/06/24 07/06/24 Range/Units 05:18 05:18 PT 15.4 H (9.9-11.9) sec INR 1.38 H (0.93-1.11) sec Anion Gap 12.80 H (4.00-12.00) mmol/L Est GFR (CKD-EPI) 44 L (>=60) C-Reactive Protein 6.70 H (0.00-0.80) mg/dL Total Protein 5.7 L (6.2-8.2) g/dL Assessment and Plan Assessment: 1. Generalized weakness secondary to COVID-19 positive 2. Acute kidney injury 3. History of pulmonary embolism maintained on Coumadin 4. History of chronic kidney disease stage III 5. History of multiple sclerosis 6. History of fibromyalgia 7. History of osteoarthritis 8. History of CVA with right-sided deficit and dysphagia DVT prophylaxis Coumadin. Bridging with Lovenox added until INR is therapeutic GI prophylaxis Pepcid Infectious disease service consulted continue gentle hydration Repeat labs ordered in a.m.
[2024-07-06] MEDS: ENOXAPARIN 100 MG/ML SYRINGE SQ SCH (12:24)
[2024-07-06] MEDS: WARFARIN 2 MG TAB PO ONE (17:34)
[2024-07-06 18:56] LABS: NT-Pro-B-Type Natriuretic Pept 87 pg/mL (0-125)
--- NOTE | 2024-07-06 21:59 | P.PN ---
Subjective Progress Note Date: 07/06/24 Principal diagnosis: Reason for follow-up is COVID-19 infection Patient is a 68-year-old female with a past medical history significant for fibromyalgia CVA TIA PE sleep apnea hypothyroidism multiple sclerosis patient has been brought into the hospital for evaluation of generalized weakness and increasing confusion, patient had been diagnosed with acute COVID-19 infection chest x-ray did show some atelectasis and the patient was not hypoxic. On today's evaluation that is 07/06/2024, patient did not have any fever and denies any chills, patient is breathing comfortably on room air, patient with no chest pain, occasional cough patient did not have any abdominal pain nausea vomiting or any loose stools, patient mention her appetite is back and did have her first meal today patient white count is 3.64 INR is 1.38 creatinine is 1.34, Pro-Jorge Alberto is 0.16 Objective - Vital Signs Vital signs: Vital Signs Temp 97.8 F 07/06/24 14:37 Pulse 62 07/06/24 14:37 Resp 17 07/06/24 14:37 BP 123/72 07/06/24 14:37 Pulse Ox 96 07/06/24 14:37 FiO2 Intake & Output 07/05/24 07/06/24 07/06/24 18:59 06:59 18:59 Intake Total 500 240 Output Total 25 250 200 Balance -25 250 40 Intake: Intake, IV Titration 500 Amount Sodium Chloride 0.9% 1, 500 000 ml @ 50 mls/hr IV . Q20H [facility] Rx#:[id number] Oral 240 Output: Urine 25 250 200 Other: Voiding Method Incontinent External Catheter External Catheter - Exam GENERAL DESCRIPTION: An elderly female lying in bed in no distress RESPIRATORY SYSTEM: Unlabored breathing , decreased breath sounds at bases HEART: S1 S2 regular rate and rhythm , ABDOMEN: Soft , no tenderness EXTREMITIES: No edema feet - Labs CBC & Chem 7: 07/06/24 05:18 07/06/24 05:18 Labs: Abnormal Lab Results - Last 24 Hours (Table) 07/06/24 07/06/24 07/06/24 Range/Units 05:18 05:18 05:18 WBC 3.64 L (4.50-10.00) X 10*3/uL Plt Count 93 L (140-440) X 10*3/uL MPV 14.1 H (9.5-12.2) FL PT 15.4 H (9.9-11.9) sec INR 1.38 H (0.93-1.11) sec Anion Gap 12.80 H (4.00-12.00) mmol/L Est GFR (CKD-EPI) 44 L (>=60) C-Reactive Protein 6.70 H (0.00-0.80) mg/dL Total Protein 5.7 L (6.2-8.2) g/dL Assessment and Plan (1) Coronavirus infection Current Visit: Yes Status: Acute Code(s): B34.2 - CORONAVIRUS INFECTION, UNSPECIFIED SNOMED Code(s): 156031742 Plan: 1patient presented to hospital with generalized weakness body aches she did have mild cough and has been tested positive for COVID-19 patient is currently not running any fever she is not hypoxic or need for supplemental oxygen chest x-ray has been mostly atelectasis at the bases rather than features suggestive COVID-19 infection more likely dealing with a mild COVID illness with no pneumo rita clinically and treatment will be mostly supportive 2-f patient currently being treated with Coumadin and zinc ascorbic acid did have a normal procalcitonin hence no need for antibiotic no hypoxemia no need for dexamethasone Dictation was produced using [employer] dictation software. please excuse any grammatical, word or spelling errors. Time with Patient: Less than 30
[2024-07-07 04:41] LABS: INR 1.7 (<1.2); Prothrombin Time 17.4 sec (10.0-12.5)
[2024-07-07 09:52] LABS: Basophils # (A) 0.01 X 10*3/uL (0.00-0.10); Basophils % (A) 0.4 %; Eosinophils # (A) 0.14 X 10*3/uL (0.04-0.35); Eosinophils % (A) 5.1 %; HCT 39.9 % (37.2-46.3); HGB 12.6 g/dL (12.0-15.0); Lymphocytes # (A) 0.94 X 10*3/uL (0.90-5.00); Lymphocytes % (A) 33.9 %; MCH 29.1 pg (27.0-32.0); MCHC 31.6 g/dL (32.0-37.0); MCV 92.1 FL (80.0-97.0); Monocytes # (A) 0.31 X 10*3/uL (0.20-1.00); Monocytes % (A) 11.2 %; NRBC Per 100 WBC 0 X 10*3/uL (0.00-0.01); Neutrophils # (A) 1.36 X 10*3/uL (1.80-7.70); Platelet Count 87 X 10*3/uL (140-440); RBC 4.33 X 10*6/uL (4.10-5.20); RDW 13.5 % (11.5-14.5); WBC 2.77 X 10*3/uL (4.50-10.00)
--- NOTE | 2024-07-07 10:25 | P.PN ---
Subjective Progress Note Date: 07/07/24 Huong Cooper is a 68-year-old female patient who presented with concerns of generalized weakness and COVID-positive. Patient has chronic neurological deficits from previous stroke. Patient has noted to have COVID-like symptoms over the past 3 days with cough and decreased appetite. Additional medical history includes chest pain, fibromyalgia, osteoarthritis, PE, multiple sclerosis. Chest x-ray completed showing low lung volumes with a generalized hazy appearance which could represent atelectasis versus pulmonary edema lab work revealing COVID-19 positive negative influenza and RSV. Troponin negative. Creatinine 1.45 bun 29. White blood cell 4.9. At this time patient will be admitted infectious disease services consulted On 07/06/2024 patient was seen and examined on the medical floor she is alert and oriented x 3 in no apparent distress she is still complaining of shortness of breath cough and chest congestion, otherwise she denies any complaints there is no fever or chills no headache or dizziness, no chest pain no nausea or vomiting no abdominal pain no diarrhea and no urinary symptoms. Vital exam reveals a temperature of 97.6 pulse 98 respirations 17 blood pressure 137/78 pulse ox 95% on room air. INR is subtherapeutic at 1.38, pharmacy are dosing, at this time I will add and bridge of Lovenox, patient is at very high risk for DVT and pulmonary embolism due to complete immobility and previous history of DVT and PE. Will continue to follow closely. Patient will need to go to rehab after this current admission. On 07/07/2024 patient is alert and oriented x 3. Patient is following some shortness of breath and cough congestion. INR 1.7 patient remains on bridging Lovenox. Infectious disease services following. Patient denies chest pain or shortness of breath. Patient denies nausea vomiting or diarrhea. Patient denies any urinary burning or frequency Objective - Vital Signs Vital signs: Vital Signs Temp 97.5 F L 07/07/24 07:09 Pulse 55 L 07/07/24 07:09 Resp 17 07/07/24 08:00 BP 139/74 07/07/24 07:09 Pulse Ox 97 07/07/24 07:09 FiO2 Intake & Output 07/06/24 07/07/24 07/07/24 18:59 06:59 18:59 Intake Total 1320 Output Total 200 175 Balance 1120 -175 Intake: Intake, IV Titration 600 Amount Sodium Chloride 0.9% 1, 600 000 ml @ 50 mls/hr IV . Q20H [facility] Rx#:[id number] Oral 720 Output: Urine 200 175 Other: Voiding Method External Catheter External Catheter Diaper # Voids 1 - Exam In general patient is alert and oriented in no apparent distress Head normocephalic and atraumatic Neck supple no JVD no goiter Lungs clear to auscultation bilaterally no wheezing or crackles Heart regular rate and rhythm S1-S2, no rub or gallop Abdomen is soft nontender nondistended positive bowel sounds no hepatosplenomegaly Extremities no edema Neuro chronic findings related to previous stroke, otherwise no acute neurological deficit - Labs CBC & Chem 7: 07/07/24 03:32 07/06/24 05:18 Labs: Abnormal Lab Results - Last 24 Hours (Table) 07/06/24 07/06/24 07/07/24 Range/Units 05:18 05:18 03:32 WBC 3.64 L (4.50-10.00) X 10*3/uL MCHC (32.0-37.0) g/dL Plt Count 93 L (140-440) X 10*3/uL MPV 14.1 H (9.5-12.2) FL Neutrophils # (1.80-7.70) X 10*3/uL PT 15.4 H 17.4 H (9.9-11.9) sec INR 1.38 H 1.7 H (0.93-1.11) sec 07/07/24 Range/Units 03:32 WBC 2.77 L (4.50-10.00) X 10*3/uL MCHC 31.6 L (32.0-37.0) g/dL Plt Count 87 L (140-440) X 10*3/uL MPV 14.0 H (9.5-12.2) FL Neutrophils # 1.36 L (1.80-7.70) X 10*3/uL PT (9.9-11.9) sec INR (0.93-1.11) sec Assessment and Plan Assessment: 1. Generalized weakness secondary to COVID-19 positive 2. Acute kidney injury 3. History of pulmonary embolism maintained on Coumadin 4. History of chronic kidney disease stage III 5. History of multiple sclerosis 6. History of fibromyalgia 7. History of osteoarthritis 8. History of CVA with right-sided deficit and dysphagia DVT prophylaxis Coumadin. Bridging with Lovenox added until INR is therapeutic GI prophylaxis Pepcid Infectious disease service consulted continue gentle hydration Repeat labs ordered in a.m.
[2024-07-07 12:14] LABS: ALT 11 U/L (8-44); AST 18 U/L (13-35); Albumin 3.3 g/dL (3.8-4.9); Albumin/Globulin Ratio 1.94 Ratio (1.60-3.17); Alkaline Phosphatase 80 U/L (41-126); Blood Urea Nitrogen 20.3 mg/dL (9.0-27.0); Carbon Dioxide 22.3 mmol/L (21.6-31.8); Chloride 109 mmol/L (96-109); Globulin 1.7 g/dL (1.6-3.3); Glucose 99 mg/dL (70-110); Potassium 3.7 mmol/L (3.5-5.5); Sodium 144 mmol/L (135-145); Total Bilirubin 0.4 mg/dL (0.3-1.2)
--- NOTE | 2024-07-07 13:59 | P.PN ---
Subjective Progress Note Date: 07/07/24 Principal diagnosis: Reason for follow-up is COVID-19 infection Patient is a 68-year-old female with a past medical history significant for fibromyalgia CVA TIA PE sleep apnea hypothyroidism multiple sclerosis patient has been brought into the hospital for evaluation of generalized weakness and increasing confusion, patient had been diagnosed with acute COVID-19 infection chest x-ray did show some atelectasis and the patient was not hypoxic. On today's evaluation that is 07/07/2024, Patient is afebrile patient is currently on room air and denies having any shortness of breath, the patient denies any chest pain or any worsening cough, the patient denies any nausea vomiting did not have any abdominal pain and no diarrhea. Patient white count is 2.77, creatinine is 1.0 urine has been negative Objective - Vital Signs Vital signs: Vital Signs Temp 97.5 F L 07/07/24 07:09 Pulse 55 L 07/07/24 07:09 Resp 17 07/07/24 08:00 BP 139/74 07/07/24 07:09 Pulse Ox 97 07/07/24 07:09 FiO2 Intake & Output 07/06/24 07/07/24 07/07/24 18:59 06:59 18:59 Intake Total 1320 Output Total 200 175 Balance 1120 -175 Intake: Intake, IV Titration 600 Amount Sodium Chloride 0.9% 1, 600 000 ml @ 50 mls/hr IV . Q20H [facility] Rx#:[id number] Oral 720 Output: Urine 200 175 Other: Voiding Method External Catheter External Catheter Diaper # Voids 1 1 # Bowel Movements 1 - Exam GENERAL DESCRIPTION: An elderly female lying in bed in no distress RESPIRATORY SYSTEM: Unlabored breathing , decreased breath sounds at bases HEART: S1 S2 regular rate and rhythm , ABDOMEN: Soft , no tenderness EXTREMITIES: No edema feet - Labs CBC & Chem 7: 07/07/24 03:32 07/07/24 03:32 Labs: Abnormal Lab Results - Last 24 Hours (Table) 07/07/24 07/07/24 07/07/24 Range/Units 03:32 03:32 03:32 WBC 2.77 L (4.50-10.00) X 10*3/uL MCHC 31.6 L (32.0-37.0) g/dL Plt Count 87 L (140-440) X 10*3/uL MPV 14.0 H (9.5-12.2) FL Neutrophils # 1.36 L (1.80-7.70) X 10*3/uL PT 17.4 H (10.0-12.5) sec INR 1.7 H (<1.2) Anion Gap 12.70 H (4.00-12.00) mmol/L BUN/Creatinine Ratio 20.30 H (12.00-20.00) Ratio Calcium 8.0 L (8.7-10.3) mg/dL Total Protein 5.0 L (6.2-8.2) g/dL Albumin 3.3 L (3.8-4.9) g/dL Assessment and Plan (1) Coronavirus infection Current Visit: Yes Status: Acute Code(s): B34.2 - CORONAVIRUS INFECTION, UNSPECIFIED SNOMED Code(s): 210617644 Plan: 1patient presented to hospital with generalized weakness body aches she did have mild cough and has been tested positive for COVID-19 patient is currently not running any fever she is not hypoxic or need for supplemental oxygen chest x-ray has been mostly atelectasis at the bases rather than features suggestive COVID-19 infection more likely dealing with a mild COVID illness with no pneumonia clinically and treatment will be mostly supportive 2-patient did have some clinical improvement, continue Coumadin and zinc ascorbic acid did have a normal procalcitonin hence no need for antibiotic and monitor clinical course closely Dictation was produced using [employer] dictation software. please excuse any grammatical, word or spelling errors. Time with Patient: Less than 30
[2024-07-07] MEDS: WARFARIN 2 MG TAB PO ONE (17:24)
[2024-07-08 08:43] LABS: ALT 10 U/L (8-44); AST 15 U/L (13-35); Albumin 3.2 g/dL (3.8-4.9); Albumin/Globulin Ratio 1.88 Ratio (1.60-3.17); Alkaline Phosphatase 77 U/L (41-126); BUN/Creat Ratio 13.45 Ratio (12.00-20.00); Blood Urea Nitrogen 14.8 mg/dL (9.0-27.0); Calcium 8.6 mg/dL (8.7-10.3); Carbon Dioxide 21.9 mmol/L (21.6-31.8); Chloride 112 mmol/L (96-109); Globulin 1.7 g/dL (1.6-3.3); Glucose 118 mg/dL (70-110); Potassium 4.4 mmol/L (3.5-5.5); Sodium 143 mmol/L (135-145); Total Bilirubin 0.4 mg/dL (0.3-1.2); Total Protein 4.9 g/dL (6.2-8.2)
[2024-07-08 09:26] LABS: Basophils # (A) 0.01 X 10*3/uL (0.00-0.10); Basophils % (A) 0.3 %; Eosinophils # (A) 0.07 X 10*3/uL (0.04-0.35); Eosinophils % (A) 2.3 %; HCT 38.1 % (37.2-46.3); HGB 12.4 g/dL (12.0-15.0); Lymphocytes % (A) 36.9 %; MCHC 32.5 g/dL (32.0-37.0); Mean Platelet Volume 13.7 FL (9.5-12.2); Monocytes # (A) 0.25 X 10*3/uL (0.20-1.00); Monocytes % (A) 8.4 %; NRBC Per 100 WBC 0 X 10*3/uL (0.00-0.01); Neutrophils # (A) 1.54 X 10*3/uL (1.80-7.70); Neutrophils % (A) 51.8 %; Platelet Count 105 X 10*3/uL (140-440); RBC 4.14 X 10*6/uL (4.10-5.20); RDW 13.7 % (11.5-14.5); WBC 2.98 X 10*3/uL (4.50-10.00)
[2024-07-08 10:07] LABS: INR 2.11 sec (0.93-1.11); Prothrombin Time 22.8 sec (9.9-11.9)
--- NOTE | 2024-07-08 17:34 | P.PN ---
Subjective Progress Note Date: 07/08/24 Huong Cooper is a 68-year-old female patient who presented with concerns of generalized weakness and COVID-positive. Patient has chronic neurological deficits from previous stroke. Patient has noted to have COVID-like symptoms over the past 3 days with cough and decreased appetite. Additional medical history includes chest pain, fibromyalgia, osteoarthritis, PE, multiple sclerosis. Chest x-ray completed showing low lung volumes with a generalized hazy appearance which could represent atelectasis versus pulmonary edema lab work revealing COVID-19 positive negative influenza and RSV. Troponin negative. Creatinine 1.45 bun 29. White blood cell 4.9. At this time patient will be admitted infectious disease services consulted On 07/06/2024 patient was seen and examined on the medical floor she is alert and oriented x 3 in no apparent distress she is still complaining of shortness of breath cough and chest congestion, otherwise she denies any complaints there is no fever or chills no headache or dizziness, no chest pain no nausea or vomiting no abdominal pain no diarrhea and no urinary symptoms. Vital exam reveals a temperature of 97.6 pulse 98 respirations 17 blood pressure 137/78 pulse ox 95% on room air. INR is subtherapeutic at 1.38, pharmacy are dosing, at this time I will add and bridge of Lovenox, patient is at very high risk for DVT and pulmonary embolism due to complete immobility and previous history of DVT and PE. Will continue to follow closely. Patient will need to go to rehab after this current admission. On 07/07/2024 patient is alert and oriented x 3. Patient is following some shortness of breath and cough congestion. INR 1.7 patient remains on bridging Lovenox. Infectious disease services following. Patient denies chest pain or shortness of breath. Patient denies nausea vomiting or diarrhea. Patient denies any urinary burning or frequency On 07/08/2024 patient was seen and examined on the medical floor she is alert and oriented x 3 in no apparent distress she is reporting improvement with cough and shortness of breath, vital exam reveals a temperature of 97.3 pulse 64 respiration 18 blood pressure 126/79 pulse ox 99% on room air white blood count is 2.98 hemoglobin 12.4 platelet count 105 INR is up to 2.11 at this time we will continue with Coumadin and discontinue Lovenox, continue with current management otherwise Objective - Vital Signs Vital signs: Vital Signs Temp 97.3 F L 07/08/24 07:15 Pulse 66 07/08/24 07:15 Resp 18 07/08/24 10:47 BP 128/79 07/08/24 07:15 Pulse Ox 84 L 07/08/24 10:17 FiO2 Intake & Output 07/07/24 07/08/24 07/08/24 18:59 06:59 18:59 Intake Total 1080 Output Total 350 350 Balance 1080 -350 -350 Intake: Intake, IV Titration 600 Amount Sodium Chloride 0.9% 1, 600 000 ml @ 50 mls/hr IV . Q20H [facility] Rx#:[id number] Oral 480 Output: Urine 350 350 Other: Voiding Method Diaper Diaper Diaper # Voids 1 1 1 # Bowel Movements 1 1 - Exam In general patient is alert and oriented in no apparent distress Head normocephalic and atraumatic Neck supple no JVD no goiter Lungs clear to auscultation bilaterally no wheezing or crackles Heart regular rate and rhythm S1-S2, no rub or gallop Abdomen is soft nontender nondistended positive bowel sounds no hepatosplenomegaly Extremities no edema Neuro chronic findings related to previous stroke, otherwise no acute neurological deficit - Labs CBC & Chem 7: 07/08/24 04:06 07/08/24 04:06 Labs: Abnormal Lab Results - Last 24 Hours (Table) 07/08/24 07/08/24 07/08/24 Range/Units 04:06 04:06 04:06 WBC 2.98 L (4.50-10.00) X 10*3/uL Plt Count 105 L (140-440) X 10*3/uL MPV 13.7 H (9.5-12.2) FL Neutrophils # 1.54 L (1.80-7.70) X 10*3/uL PT 22.8 H (9.9-11.9) sec INR 2.11 H (0.93-1.11) sec Chloride 112 H (96-109) mmol/L Est GFR (CKD-EPI) 54 L (>=60) Glucose 118 H (70-110) mg/dL Calcium 8.6 L (8.7-10.3) mg/dL Total Protein 4.9 L (6.2-8.2) g/dL Albumin 3.2 L (3.8-4.9) g/dL Assessment and Plan Assessment: 1. Generalized weakness secondary to COVID-19 positive 2. Acute kidney injury 3. History of pulmonary embolism maintained on Coumadin 4. History of chronic kidney disease stage III 5. History of multiple sclerosis 6. History of fibromyalgia 7. History of osteoarthritis 8. History of CVA with right-sided deficit and dysphagia DVT prophylaxis Coumadin. Bridging with Lovenox added until INR is therapeutic GI prophylaxis Pepcid Infectious disease service consulted continue gentle hydration Repeat labs ordered in a.m.
[2024-07-08] MEDS: WARFARIN 3 MG TAB PO ONE (18:13)
[2024-07-09 05:29] LABS: INR 2.2 (<1.2); Prothrombin Time 22.6 sec (10.0-12.5)
[2024-07-09 08:48] LABS: ALT 12 U/L (8-44); AST 17 U/L (13-35); Albumin 3.1 g/dL (3.8-4.9); Albumin/Globulin Ratio 1.94 Ratio (1.60-3.17); Alkaline Phosphatase 79 U/L (41-126); Blood Urea Nitrogen 11.8 mg/dL (9.0-27.0); Calcium 8.4 mg/dL (8.7-10.3); Carbon Dioxide 22.3 mmol/L (21.6-31.8); Chloride 114 mmol/L (96-109); Globulin 1.6 g/dL (1.6-3.3); Glucose 108 mg/dL (70-110); Potassium 4.4 mmol/L (3.5-5.5); Sodium 144 mmol/L (135-145); Total Bilirubin 0.3 mg/dL (0.3-1.2); Total Protein 4.7 g/dL (6.2-8.2)
[2024-07-09 09:36] LABS: Basophils # (A) 0.03 X 10*3/uL (0.00-0.10); Basophils % (A) 1.1 %; Eosinophils # (A) 0.11 X 10*3/uL (0.04-0.35); HCT 36.4 % (37.2-46.3); HGB 11.7 g/dL (12.0-15.0); Lymphocytes # (A) 1.19 X 10*3/uL (0.90-5.00); MCH 29.5 pg (27.0-32.0); MCHC 32.1 g/dL (32.0-37.0); MCV 91.7 FL (80.0-97.0); Mean Platelet Volume 13.4 FL (9.5-12.2); Monocytes # (A) 0.18 X 10*3/uL (0.20-1.00); Monocytes % (A) 6.5 %; NRBC Per 100 WBC 0 X 10*3/uL (0.00-0.01); Neutrophils # (A) 1.24 X 10*3/uL (1.80-7.70); Neutrophils % (A) 44.7 %; Platelet Count 98 X 10*3/uL (140-440); RBC 3.97 X 10*6/uL (4.10-5.20); RDW 13.8 % (11.5-14.5); WBC 2.77 X 10*3/uL (4.50-10.00)
--- NOTE | 2024-07-09 13:03 | P.DS ---
Providers Date of admission: 07/04/24 22:59 Expected date of discharge: 07/09/24 Attending physician: Sarah Paredes Consults: 07/05/24 10:00 Consult Physician Routine Consulting Provider: Homero Glasgow Consult Reason/Comments: CoViD-19 positive Do you want consulting provider notified?: Yes Primary care physician: Sarah Paredes Hospital Course: Discharge diagnosis 1. Generalized weakness secondary to COVID-19 positive 2. Acute kidney injury 3. History of pulmonary embolism maintained on Coumadin 4. History of chronic kidney disease stage III 5. History of multiple sclerosis 6. History of fibromyalgia 7. History of osteoarthritis 8. History of CVA with right-sided deficit and dysphagia Hospital course Huong Cooper is a 68-year-old female patient who presented with concerns of generalized weakness and COVID-positive. Patient has chronic neurological deficits from previous stroke. Patient has noted to have COVID-like symptoms over the past 3 days with cough and decreased appetite. Additional medical history includes chest pain, fibromyalgia, osteoarthritis, PE, multiple sclerosis. Chest x-ray completed showing low lung volumes with a generalized hazy appearance which could represent atelectasis versus pulmonary edema lab work revealing COVID-19 positive negative influenza and RSV. Troponin negative. Creatinine 1.45 bun 29. White blood cell 4.9. At this time patient will be admitted infectious disease services consulted On 07/06/2024 patient was seen and examined on the medical floor she is alert and oriented x 3 in no apparent distress she is still complaining of shortness of breath cough and chest congestion, otherwise she denies any complaints there is no fever or chills no headache or dizziness, no chest pain no nausea or vomiting no abdominal pain no diarrhea and no urinary symptoms. Vital exam reveals a temperature of 97.6 pulse 98 respirations 17 blood pressure 137/78 pulse ox 95% on room air. INR is subtherapeutic at 1.38, pharmacy are dosing, at this time I will add and bridge of Lovenox, patient is at very high risk for DVT and pulmonary embolism due to complete immobility and previous history of DVT and PE. Will continue to follow closely. Patient will need to go to rehab after this current admission. On 07/07/2024 patient is alert and oriented x 3. Patient is following some shortness of breath and cough congestion. INR 1.7 patient remains on bridging Lovenox. Infectious disease services following. Patient denies chest pain or shortness of breath. Patient denies nausea vomiting or diarrhea. Patient denies any urinary burning or frequency On 07/08/2024 patient was seen and examined on the medical floor she is alert and oriented x 3 in no apparent distress she is reporting improvement with cough and shortness of breath, vital exam reveals a temperature of 97.3 pulse 64 respiration 18 blood pressure 126/79 pulse ox 99% on room air white blood count is 2.98 hemoglobin 12.4 platelet count 105 INR is up to 2.11 at this time we will continue with Coumadin and discontinue Lovenox, continue with current management otherwise On 07/09/2024 patient is alert and oriented x 3. Current vital signs temp 97.4, heart rate 64, respiratory rate 18, blood pressure 127/70 with a pulse ox of 95% on room air INR today 2.2 follow-up with PCP resume home Coumadin dose Patient Condition at Discharge: Stable Plan - Discharge Summary Discharge Rx Participant: No New Discharge Prescriptions: New Ascorbic Acid [Vitamin C] 1,000 mg PO DAILY 30 Days #30 tab Continue Baclofen [Lioresal] 10 mg PO DAILY Montelukast [Singulair] 10 mg PO DAILY Furosemide [Lasix] 40 mg PO BID@0900,1700 Pantoprazole Sodium [Protonix] 40 mg PO DAILY Levothyroxine Sodium [Synthroid] 75 mcg PO DAILY Warfarin [Coumadin] 3 mg PO W/SUPPER Methylphenidate HCl [Ritalin] 20 mg PO BID Ferrous Sulfate [Iron (65 MG Elemental)] 325 mg PO W/SUPPER Cholecalciferol [Vitamin D3 (25 Mcg = 1000 Iu)] 50 mcg PO DAILY Fexofenadine HCl [Mimi Allergy] 180 mg PO DAILY Aspirin 81 mg PO DAILY Fluticasone Nasal [place] [Flonase Nasal [place]] 1 spray EA NOSTRIL DAILY Potassium Chloride ER [K-Dur 20] 20 meq PO BID@0900,1700 allopurinoL [Zyloprim] 300 mg PO HS Pregabalin [Lyrica] 100 mg PO TID HYDROcodone/APAP 7.5-325MG [Walls 7.5-325] 1 tab PO TID Albuterol Sulfate [Proair Respiclick] 1 - 2 puff INHALATION RT-QID Nitroglycerin Sl Tabs [Nitrostat] 0.4 mg SUBLINGUAL Q5M PRN PRN Reason: Chest Pain Discharge Medication List Baclofen [Lioresal] 10 mg PO DAILY 11/08/13 [History] Furosemide [Lasix] 40 mg PO BID@0900,1700 11/08/13 [History] Montelukast [Singulair] 10 mg PO DAILY 11/08/13 [History] Pantoprazole Sodium [Protonix] 40 mg PO DAILY 11/08/13 [History] Levothyroxine Sodium [Synthroid] 75 mcg PO DAILY 03/10/22 [History] Fluticasone Nasal [place] [Flonase Nasal [place]] 1 spray EA NOSTRIL DAILY 09/23/22 [History] Ferrous Sulfate [Iron (65 MG Elemental)] 325 mg PO W/SUPPER 01/24/24 [History] HYDROcodone/APAP 7.5-325MG [Walls 7.5-325] 1 tab PO TID 01/24/24 [History] Methylphenidate HCl [Ritalin] 20 mg PO BID 01/24/24 [History] Potassium Chloride ER [K-Dur 20] 20 meq PO BID@0900,1700 01/24/24 [History] Pregabalin [Lyrica] 100 mg PO TID 01/24/24 [History] Warfarin [Coumadin] 3 mg PO W/SUPPER 01/24/24 [History] allopurinoL [Zyloprim] 300 mg PO HS 01/24/24 [History] Albuterol Sulfate [Proair Respiclick] 1 - 2 puff INHALATION RT-QID 07/05/24 [History] Aspirin 81 mg PO DAILY 07/05/24 [History] Cholecalciferol [Vitamin D3 (25 Mcg = 1000 Iu)] 50 mcg PO DAILY 07/05/24 [History] Fexofenadine HCl [Mimi Allergy] 180 mg PO DAILY 07/05/24 [History] Nitroglycerin Sl Tabs [Nitrostat] 0.4 mg SUBLINGUAL Q5M PRN 07/05/24 [History] Ascorbic Acid [Vitamin C] 1,000 mg PO DAILY 30 Days #30 tab 07/09/24 [Rx] Follow up Appointment(s)/Referral(s): [facility], [NON-STAFF] - 1 Week Sarah Paredes MD [Primary Care Provider] - 1-2 days Discharge Disposition: HOME SELF-CARE
--- NOTE | 2024-07-09 13:31 | P.PN ---
Subjective Progress Note Date: 07/08/24 Principal diagnosis: Reason for follow-up is COVID-19 infection Patient is a 68-year-old female with a past medical history significant for fibromyalgia CVA TIA PE sleep apnea hypothyroidism multiple sclerosis patient has been brought into the hospital for evaluation of generalized weakness and increasing confusion, patient had been diagnosed with acute COVID-19 infection chest x-ray did show some atelectasis and the patient was not hypoxic. On today's evaluation that is 07/08/2023, patient has been afebrile, patient is breathing comfortably and is currently on room air, patient denies having any significant cough no chest pain, patient denies nausea vomiting or diarrhea did have some lower abdominal discomfort. Patient white count is 2.98, creatinine is 1.1 Objective - Vital Signs Vital signs: Vital Signs Temp 97.3 F L 07/08/24 07:15 Pulse 66 07/08/24 07:15 Resp 18 07/08/24 10:47 BP 128/79 07/08/24 07:15 Pulse Ox 84 L 07/08/24 10:17 FiO2 Intake & Output 07/07/24 07/08/24 07/08/24 18:59 06:59 18:59 Intake Total 1080 Output Total 350 350 Balance 1080 -350 -350 Intake: Intake, IV Titration 600 Amount Sodium Chloride 0.9% 1, 600 000 ml @ 50 mls/hr IV . Q20H [facility] Rx#:[id number] Oral 480 Output: Urine 350 350 Other: Voiding Method Diaper Diaper Diaper # Voids 1 1 1 # Bowel Movements 1 1 - Exam GENERAL DESCRIPTION: An elderly female lying in bed in no distress RESPIRATORY SYSTEM: Unlabored breathing , decreased breath sounds at bases HEART: S1 S2 regular rate and rhythm , ABDOMEN: Soft , no tenderness EXTREMITIES: No edema feet - Labs CBC & Chem 7: 07/09/24 04:32 07/09/24 04:32 Labs: Abnormal Lab Results - Last 24 Hours (Table) 07/08/24 07/08/24 07/08/24 Range/Units 04:06 04:06 04:06 WBC 2.98 L (4.50-10.00) X 10*3/uL Plt Count 105 L (140-440) X 10*3/uL MPV 13.7 H (9.5-12.2) FL Neutrophils # 1.54 L (1.80-7.70) X 10*3/uL PT 22.8 H (9.9-11.9) sec INR 2.11 H (0.93-1.11) sec Chloride 112 H (96-109) mmol/L Est GFR (CKD-EPI) 54 L (>=60) Glucose 118 H (70-110) mg/dL Calcium 8.6 L (8.7-10.3) mg/dL Total Protein 4.9 L (6.2-8.2) g/dL Albumin 3.2 L (3.8-4.9) g/dL Assessment and Plan (1) Coronavirus infection Current Visit: Yes Status: Acute Code(s): B34.2 - CORONAVIRUS INFECTION, UNSPECIFIED SNOMED Code(s): 685038066 Plan: 1patient presented to hospital with generalized weakness body aches she did have mild cough and has been tested positive for COVID-19 patient is currently not running any fever she is not hypoxic or need for supplemental oxygen chest x-ray has been mostly atelectasis at the bases rather than features suggestive COVID-19 infection more likely dealing with a mild COVID illness with no pneumonia clinically and treatment will be mostly supportive 2-patient currently being treated with Coumadin and zinc ascorbic acid did have a normal procalcitonin and will monitor closely off antibiotics Dictation was produced using [employer] dictation software. please excuse any grammatical, word or spelling errors. Time with Patient: Less than 30
--- NOTE | 2024-07-09 13:32 | P.PN ---
Subjective Progress Note Date: 07/09/24 Principal diagnosis: Reason for follow-up is COVID-19 infection Patient is a 68-year-old female with a past medical history significant for fibromyalgia CVA TIA PE sleep apnea hypothyroidism multiple sclerosis patient has been brought into the hospital for evaluation of generalized weakness and increasing confusion, patient had been diagnosed with acute COVID-19 infection chest x-ray did show some atelectasis and the patient was not hypoxic. On today's evaluation that is 07/09/2023, Patient is afebrile this morning patient denies having any chest pain shortness of breath or cough, the patient is currently on room air, patient has been complaining of some lower abdominal pain, mention of bowel movement, no nausea no vomiting. The patient white count is 2.77, creatinine is 1.0 Objective - Vital Signs Vital signs: Vital Signs Temp 97.4 F L 07/09/24 08:22 Pulse 64 07/09/24 08:22 Resp 18 07/09/24 08:22 BP 127/70 07/09/24 08:22 Pulse Ox 95 07/09/24 08:22 FiO2 Intake & Output 07/08/24 07/09/24 07/09/24 18:59 06:59 18:59 Intake Total 250 600 Output Total 1300 Balance -1050 600 Intake: Intake, IV Titration 600 Amount Sodium Chloride 0.9% 1, 600 000 ml @ 50 mls/hr IV . Q20H [facility] Rx#:[id number] Oral 250 Output: Urine 1300 Other: Voiding Method Diaper Diaper # Voids 1 # Bowel Movements 1 - Exam GENERAL DESCRIPTION: An elderly female lying in bed in no distress RESPIRATORY SYSTEM: Unlabored breathing , decreased breath sounds at bases HEART: S1 S2 regular rate and rhythm , ABDOMEN: Soft , no tenderness EXTREMITIES: No edema feet - Labs CBC & Chem 7: 07/09/24 04:32 07/09/24 04:32 Labs: Abnormal Lab Results - Last 24 Hours (Table) 07/09/24 07/09/24 07/09/24 Range/Units 04:32 04:32 04:32 WBC 2.77 L (4.50-10.00) X 10*3/uL RBC 3.97 L (4.10-5.20) X 10*6/uL Hgb 11.7 L (12.0-15.0) g/dL Hct 36.4 L (37.2-46.3) % Plt Count 98 L (140-440) X 10*3/uL MPV 13.4 H (9.5-12.2) FL Neutrophils # 1.24 L (1.80-7.70) X 10*3/uL Monocytes # 0.18 L (0.20-1.00) X 10*3/uL PT 22.6 H (10.0-12.5) sec INR 2.2 H (<1.2) Chloride 114 H (96-109) mmol/L BUN/Creatinine Ratio 11.80 L (12.00-20.00) Ratio Calcium 8.4 L (8.7-10.3) mg/dL Total Protein 4.7 L (6.2-8.2) g/dL Albumin 3.1 L (3.8-4.9) g/dL Assessment and Plan (1) Coronavirus infection Current Visit: Yes Status: Acute Code(s): B34.2 - CORONAVIRUS INFECTION, UNSPECIFIED SNOMED Code(s): 799620607 Plan: 1patient presented to hospital with generalized weakness body aches she did have mild cough and has been tested positive for COVID-19 patient is currently not running any fever she is not hypoxic or need for supplemental oxygen chest x -ray has been mostly atelectasis at the bases rather than features suggestive COVID-19 infection more likely dealing with a mild COVID illness with no pneumonia clinically and treatment will be mostly supportive 2-patient seem to have shown clinical improvement the patient did not have any hypoxemia, currently Coumadin and zinc ascorbic acid did have a normal procalcitonin and no need for antibiotics on discharge Dictation was produced using [employer] dictation software. please excuse any grammatical, word or spelling errors. Time with Patient: Less than 30
[2024-07-09] MEDS: WARFARIN 3 MG TAB PO ONE (18:07)
[2024-07-10 05:03] LABS: INR 2.2 (<1.2); Prothrombin Time 22.4 sec (10.0-12.5)
[2024-07-10 07:40] VITALS: RESP 18
[2024-07-10 14:42] VITALS: BP 118/70; PULSE 57; TEMP 98.2
[2024-07-10] MEDS ORDERED: WARFARIN 3 MG TAB PO ONE (18:00)
--- NOTE | 2024-07-12 13:05 | P.PN ---
Subjective Progress Note Date: 07/10/24 Principal diagnosis: Reason for follow-up is COVID-19 infection Patient is a 68-year-old female with a past medical history significant for fibromyalgia CVA TIA PE sleep apnea hypothyroidism multiple sclerosis patient has been brought into the hospital for evaluation of generalized weakness and increasing confusion, patient had been diagnosed with acute COVID-19 infection chest x-ray did show some atelectasis and the patient was not hypoxic. On today's evaluation that is 07/10/2024,the patient denies any fever or any chills, patient is breathing comfortably on room air, the patient denies chest pain shortness of breath and did have occasional dry cough, patient complaining of some lower abdominal pain, no nausea vomiting or diarrhea. Patient did have INR of 2.2 no CBC was done today Objective - Vital Signs Vital signs: Vital Signs Temp 97.5 F L 07/10/24 07:39 Pulse 64 07/10/24 07:39 Resp 18 07/10/24 09:41 BP 127/65 07/10/24 07:39 Pulse Ox 95 07/10/24 07:39 FiO2 Intake & Output 07/09/24 07/10/24 07/10/24 18:59 06:59 18:59 Output Total 800 800 800 Balance -800 -800 -800 Output: Urine 800 800 800 Other: Voiding Method Diaper Diaper Diaper External Catheter External Catheter # Voids 1 - Exam GENERAL DESCRIPTION: An elderly female lying in bed in no distress RESPIRATORY SYSTEM: Unlabored breathing , decreased breath sounds at bases HEART: S1 S2 regular rate and rhythm , ABDOMEN: Soft , no tenderness EXTREMITIES: No edema feet - Labs CBC & Chem 7: 07/09/24 04:32 07/09/24 04:32 Labs: Abnormal Lab Results - Last 24 Hours (Table) 07/10/24 Range/Units 03:40 PT 22.4 H (10.0-12.5) sec INR 2.2 H (<1.2) Assessment and Plan (1) Coronavirus infection Status: Acute Code(s): B34.2 - CORONAVIRUS INFECTION, UNSPECIFIED SNOMED Code(s): 948882199 Plan: 1patient presented to hospital with generalized weakness body aches she did have mild cough and has been tested positive for COVID-19 patient is currently not running any fever she is not hypoxic or need for supplemental oxygen chest x-ray has been mostly atelectasis at the bases rather than features suggestive COVID-19 infection more likely dealing with a mild COVID illness with no pneumonia clinically and treatment will be mostly supportive 2-patient remains to be afebrile, patient did not have any hypoxemia, treatment is supportive including Coumadin and zinc ascorbic acid did have a normal procalcitonin and no need for antibiotics on discharge Dictation was produced using [employer] dictation software. please excuse any grammatical, word or spelling errors. Time with Patient: Less than 30
--- NOTE | 2024-07-15 11:20 | CDI ---
Documentation Clarification Form Date: 07/15/2024 10:21:40 AM From: Bonita Santos RN, CCDS Email: [email or web address] Admit Date: 07/04/2024 10:59:00 PM Patient Name: Huong Cooper Visit Number: [id number] Discharge Date: 07/10/2024 03:56:00 PM ATTENTION: The Clinical Documentation Specialists (CDI) and [facility] Coding Staff appreciate your assistance in clarifying documentation. Please respond to the clarification below the line at the bottom and electronically sign. The CDI & [facility] Coding staff will review the response and follow-up if needed. Please note: Queries are made part of the Legal Health Record. If you have any questions, please contact the author of this message via ITS. Doctor Sarah Paredes The patient had the documented symptom of altered mental status and confusion. Additional clarification is requested. History/Risk Factors: Patient presented with concerns of generalized weakness and COVID-positive. Patient has chronic neurological deficits from previous stroke. Patient has noted to have COVID-like symptoms over the past 3 days with cough and decreased appetite. Additional medical history includes chest pain, fibromyalgia, osteoarthritis, PE, multiple sclerosis and CKD 3. Clinical Indicators: 1/ ED: "AMS, Pain. Patient has been generally weak and increasingly confused." 07/05 ID consult: "CC of increasing weakness and confusion x3 days. The patient is lethargic, confused and orientation could not be determined." 07/09 Discharge summary: "Generalized weakness secondary to COVID-19 positive. Acute kidney injury." 07/04 Labs: Cr 1.45-1.3-1.0; Covid detected; K+ 3.8; CRP 6.70 Treatment: IV 0.9 NS @50mL/hr; Zinc sulfate 220mg po daily; Potassium chloride 20meq po BID; Vitamin C 1000mg po daily; Vitamin D3 50mcg po daily Please clarify if there is an additional diagnosis: [ xxx ] Metabolic Encephalopathy due to Covid infection and ANGELES [ ] No additional diagnosis [ ] Other [ ] Unable to determine MTDD
== END 2024-07-10 15:56 | disposition home or self-care (01) | DRG 177 ==
LOC: EC 17:24 → 4SSUR 22:59
PROVIDERS: ADMIT Internal Medicine; ATTEND Internal Medicine
DX: U07.1 COVID-19 (principal); G93.41 Metabolic encephalopathy; I69.351 Hemiplegia and hemiparesis following cerebral infarction affecting right dominant side; N18.30 Chronic kidney disease, stage 3 unspecified; E03.9 Hypothyroidism, unspecified; F32.A Depression, unspecified; N17.9 Acute kidney failure, unspecified; G35 Multiple sclerosis; I69.391 Dysphagia following cerebral infarction; M79.7 Fibromyalgia; Z86.711 Personal history of pulmonary embolism; M19.90 Unspecified osteoarthritis, unspecified site; G47.30 Sleep apnea, unspecified; Z79.01 Long term (current) use of anticoagulants; Z79.82 Long term (current) use of aspirin; Z79.890 Hormone replacement therapy; Z79.899 Other long term (current) drug therapy; Z82.49 Family history of ischemic heart disease and other diseases of the circulatory system; Z86.16 Personal history of COVID-19; Z86.718 Personal history of other venous thrombosis and embolism; Z90.710 Acquired absence of both cervix and uterus; Z88.8 Allergy status to other drugs, medicaments and biological substances; Z90.49 Acquired absence of other specified parts of digestive tract; Z87.19 Personal history of other diseases of the digestive system
CPT/HCPCS: 36415; 71046; 80053; 81003; 82140; 83880; 84145; 84484; 85025; 85610; 85730; 86140; 87636; 93005; 99285

== ENCOUNTER 2024-10-31 11:32 | Emergency (ER) | payer MEDICARE ==
[2024-10-31 11:45] VITALS: BP 136/79; PULSE 58; RESP 22; TEMP 97.8
[2024-10-31 12:16] LABS: Basophils # (A) 0.01 10*3/uL (0.00-0.10); Basophils % (A) 0.2 %; Eosinophils # (A) 0.07 10*3/uL (0.04-0.35); Eosinophils % (A) 1.2 %; HCT 43.7 % (37.2-46.3); HGB 14.7 g/dL (12.0-15.0); Immature Platelet Fraction 9.5 % (1.1-6.1); Lymphocytes # (A) 0.99 10*3/uL (0.90-5.00); Lymphocytes % (A) 16.9 %; MCH 29.4 pg (27.0-32.0); MCHC 33.6 g/dL (32.0-37.0); MCV 87.4 fL (80.0-97.0); Mean Platelet Volume 13.1 fL (9.5-12.2); Monocytes # (A) 0.25 10*3/uL (0.20-1.00); Monocytes % (A) 4.3 %; Neutrophils # (A) 4.54 10*3/uL (1.80-7.70); Neutrophils % (A) 77.2 %; Platelet Count 121 10*3/uL (140-440); RDW 13.7 % (11.5-14.5); WBC 5.87 10*3/uL (4.50-10.00)
[2024-10-31 12:26] LABS: INR 2.7 (<1.2); Partial Thromboplastin Time 34.2 sec (22.0-30.0); Prothrombin Time 26.9 sec (10.0-12.5)
[2024-10-31 12:28] LABS: ALT 19 U/L (4-34); AST 22 U/L (14-36); African American GFR (CKD) 53 (>60 ml/min/1.73 sqM); Alkaline Phosphatase 97 U/L (38-126); Amylase 79 U/L (30-110); Anion Gap 8 mmol/L; Blood Urea Nitrogen 19 mg/dL (7-17); Calcium 9.7 mg/dL (8.4-10.2); Carbon Dioxide 29 mmol/L (22-30); Chloride 104 mmol/L (98-107); Glucose 145 mg/dL (74-99); Lipase 37 U/L (23-300); Non-African American GFR(CKD) 46 (>60 ml/min/1.73 sqM); Potassium 3.9 mmol/L (3.5-5.1); Sodium 141 mmol/L (137-145); Total Bilirubin 1.1 mg/dL (0.2-1.3); Total Protein 6.5 g/dL (6.3-8.2)
--- NOTE | 2024-10-31 13:13 | CT ---
EXAMINATION TYPE: CT abdomen pelvis wo con DATE OF EXAM: 10/31/2024 12:55 PM COMPARISON: 09/24/2022 CLINICAL INDICATION: Female, 69 years old with history of pain, abnormal x-ray; pain, abn xray TECHNIQUE: CT abdomen pelvis wo con;Sagittal and coronal reformats were performed. CT DLP: 1126.4 mGycm, Automated exposure control for dose reduction was used. FINDINGS: LOWER CHEST: Strandy areas of atelectasis and scarring. Heart borderline enlarged. A PFO closure rajat ce noted. ABDOMEN LIVER: Unremarkable by noncontrast CT. GALLBLADDER AND BILE DUCTS: Gallbladder surgically absent. Bile duct dilated at 1.6 cm, slightly incr eased from 2022 probably due to chronic postcholecystectomy status. PANCREAS: Diffusely atrophic. SPLEEN: Unremarkable. ADRENAL GLANDS: Unremarkable. KIDNEYS AND URETERS: A 1.4 cm cortical cyst posterior right kidney. No hydronephrosis on either side. No renal stones are identified. PELVIS BLADDER: No evidence for wall thickening or mass given limitations of exam. REPRODUCTIVE: Uterus surgically absent. Both ovaries are visualized. No abnormal fluid collection in the pelvis. Small pelvic phleboliths. ABDOMEN & PELVIS STOMACH AND BOWEL: There may be a tiny hiatal hernia. Small 1.8 cm diverticulum from the third portio n of the duodenum projecting up into the pancreatic head region. No evidence of bowel obstruction. Ray rgical clips right lower quadrant probably related to prior appendectomy. Scattered mild stool wordin g. Redundant sigmoid colon. No pericolonic inflammatory change. PERITONEUM/RETROPERITONEUM: No evidence of pneumoperitoneum or free fluid. VASCULATURE: No evidence of aortic aneurysm. MUSCULOSKELETAL: Hypertrophic facet arthropathy mid to lower lumbar spine. Degenerative trace grade 1 retrolisthesis L2-L3 and L3-L4. LYMPH NODES: No gross evidence for lymphadenopathy. SOFT TISSUE/ABDOMINAL WALL: Unremarkable IMPRESSION: 1. Status post cholecystectomy. Bile duct caliber at 1.6 cm slightly increased from 2022, probably d ue to chronic postcholecystectomy status. Correlate with alkaline phosphatase and bilirubin levels. 2. No acute inflammatory process identified in the abdomen or pelvis. [facility], Workstation: [email or web address], 10/31/2024 1:11 PM
--- NOTE | 2024-10-31 13:14 | ED ---
Abdominal Pain HPI - General Chief Complaint: Abdominal Pain Stated Complaint: ABD Pain Time Seen by Provider: 10/31/24 11:42 Source: patient, EMS, RN notes reviewed Mode of arrival: EMS Limitations: physical limitation - History of Present Illness Initial Comments: 69-year-old female presents emergency department with chief complaint of abdominal pain. Patient sent in from half-way for concerns of a possible obstruction versus ileus. Patient states that she is feels very distended, bloated she does admit to nausea without vomiting no dysuria no other associated complaints/chest pain shortness of breath no fever. - Related Data Home Medications Medication Instructions Recorded Confirmed Baclofen [Lioresal] 10 mg PO DAILY 11/08/13 07/05/24 Furosemide [Lasix] 40 mg PO BID@0900,1700 11/08/13 07/05/24 Montelukast [Singulair] 10 mg PO DAILY 11/08/13 07/05/24 Pantoprazole Sodium [Protonix] 40 mg PO DAILY 11/08/13 07/05/24 Levothyroxine Sodium [Synthroid] 75 mcg PO DAILY 03/10/22 07/05/24 Fluticasone Nasal [place] [Flonase 1 spray EA NOSTRIL DAILY 09/23/22 07/05/24 Nasal [place]] Ferrous Sulfate [Iron (65 MG 325 mg PO W/SUPPER 01/24/24 07/05/24 Elemental)] HYDROcodone/APAP 7.5-325MG [[place] 1 tab PO TID 01/24/24 07/05/24 7.5-325] Methylphenidate HCl [Ritalin] 20 mg PO BID 01/24/24 07/05/24 Potassium Chloride ER [K-Dur 20] 20 meq PO BID@0900,1700 01/24/24 07/05/24 Pregabalin [Lyrica] 100 mg PO TID 01/24/24 07/05/24 Warfarin [Coumadin] 3 mg PO W/SUPPER 01/24/24 07/05/24 allopurinoL [Zyloprim] 300 mg PO HS 01/24/24 07/05/24 Albuterol Sulfate [Proair 1 - 2 puff INHALATION RT-QID 07/05/24 07/05/24 Respiclick] Aspirin 81 mg PO DAILY 07/05/24 07/05/24 Cholecalciferol [Vitamin D3 (25 50 mcg PO DAILY 07/05/24 07/05/24 Mcg = 1000 Iu)] Fexofenadine HCl [Mimi Allergy] 180 mg PO DAILY 07/05/24 07/05/24 Nitroglycerin Sl Tabs [Nitrostat] 0.4 mg SUBLINGUAL Q5M PRN 07/05/24 07/05/24 Previous Rx's Medication Instructions Recorded Ascorbic Acid [Vitamin C] 1,000 mg PO DAILY 30 Days #30 tab 07/09/24 Allergies Allergy/AdvReac Type Severity Reaction Status Date / Time adhesive AdvReac SKIN Verified 10/31/24 11:45 PEELING Review of Systems ROS Statement: Those systems with pertinent positive or pertinent negative responses have been documented in the HPI. ROS Other: All systems not noted in ROS Statement are negative. Past Medical History Past Medical History: Chest Pain / Angina, CVA/TIA, Fibromyalgia, Musculoskeletal Disorder, Neurologic Disorder, Osteoarthritis (OA), Pulmonary Embolus (PE), Sleep Apnea/CPAP/BIPAP, Thyroid Disorder Additional Past Medical History / Comment(s): MULTIPLE SCLEROSIS, HX OF CVA 2006 WITH R SIDED WEAKNESS AND DYSPHASIA-MUCH IMPROVED, MIGRAINES, SLEEP APNEA(HAS C- PAP MACHINE BUT DOES NOT USE) ABD HERNIA,CHRONIC PAIN ESPECIALLY ON R SIDE OF BODY AND LOW BACK . PAINFUL FOR HER TO LIE FLAT. HX OF NOSEBLEED JUL 2014 AND RECEIVED PLASMA TRANSFUSION. takes pills with applesauce. History of Any Multi-Drug Resistant Organisms: VRE Date of last positivie culture/infection: 10/24/09 confirmed with infectious disease nurse on 08/18/16. MDRO Source:: URINE Past Surgical History: Appendectomy, Cholecystectomy, Hysterectomy Additional Past Surgical History / Comment(s): Incisional hernia repair, laparoscopic lysis of adhesions in 1987, ganglion cyst removal of the left wrist, patent foramen ovale patch in 2006, RF ablation for back pain. Past Anesthesia/Blood Transfusion Reactions: No Reported Reaction Past Psychological History: Depression Smoking Status: Never smoker Past Alcohol Use History: None Reported Past Drug Use History: None Reported - Past Family History Mother Family Medical History: Hypertension Additional Family Medical History / Comment(s): osteoporosis Father Family Medical History: Dementia, Diabetes Mellitus General Exam Limitations: physical limitation General appearance: alert, in no apparent distress Head exam: Present: atraumatic, normocephalic, normal inspection Eye exam: Present: normal appearance, PERRL, EOMI. Absent: scleral icterus, conjunctival injection, periorbital swelling ENT exam: Present: normal exam, normal oropharynx, mucous membranes moist Neck exam: Present: normal inspection, full ROM. Absent: tenderness, meningismus, lymphadenopathy Respiratory exam: Present: normal lung sounds bilaterally. Absent: respiratory distress, wheezes, rales, rhonchi, stridor Cardiovascular Exam: Present: regular rate, normal rhythm, normal heart sounds. Absent: systolic murmur, diastolic murmur, rubs, gallop, clicks GI/Abdominal exam: Present: soft, distended, tenderness, normal bowel sounds. Absent: guarding, rebound, rigid Course Vital Signs 10/31/24 11:38 Temperature 97.8 F Pulse Rate 58 L Respiratory 22 Rate Blood Pressure 136/79 O2 Sat by Pulse 97 Oximetry Medical Decision Making - Medical Decision Making Was pt. sent in by a medical professional or institution (, PA, SENIOR ART DIRECTOR, urgent care, hospital, or half-way...) When possible be specific @ -senior care Did you speak to anyone other than the patient for history (EMS, parent, family, police, friend...)? What history was obtained from this source @ -No Did you review nursing and triage notes (agree or disagree)? Why? @ -I reviewed and agree with nursing and triage notes Were old charts reviewed (outside hosp., previous admission, EMS record, old EKG, old radiological studies, urgent care reports/EKG's, half-way records)? Report findings @ -No old charts were reviewed Differential Diagnosis (chest pain, altered mental status, abdominal pain women, abdominal pain men, vaginal bleeding, weakness, fever, dyspnea, syncope, headache, dizziness, GI bleed, back pain, seizure, CVA, palpatations, mental health, musculoskeletal)? @ -Differential Abdominal Pain Women: Appendicitis, Cholecystitis, diverticulosis, ischemic bowel, pancreatitis, hepatitis, UTI, gastroenteritis, AAA, incarcerated hernia, bowel obstruction, constipation, inflammatory bowel, hepatitis, peptic ulcer disease, splenic infarction, perforated viscus, vulvitis, ovarian torsion, PID, kidney stone, placenta abruption, this is not meant to be an all-inclusive list EKG interpreted by me (3pts min.). @ -None X-rays interpreted by me (1pt min.). @ -None done CT interpreted by me (1pt min.). @ -CT abdomen pelvis showing no evidence of obstruction, mild stool. U/S interpreted by me (1pt. min.). @ -None done What testing was considered but not performed or refused? (CT, X-rays, U/S, labs)? Why? @ -None What meds were considered but not given or refused? Why? @ -None Did you discuss the management of the patient with other professionals (professionals i.e. , PA, SENIOR ART DIRECTOR, lab, RT, psych nurse, social work associate, strategy analyst, teacher, low altitude air defense officer, case operator)? Give summary @ -No Was smoking cessation discussed for >3mins.? @ -No Was critical care preformed (if so, how long)? @ -No Were there social determinants of health that impacted care today? How? (Homelessness, low income, unemployed, alcoholism, drug addiction, transportation, low edu. Level, literacy, decrease access to med. care, shelter, rehab)? @ -No Was there de-escalation of care discussed even if they declined (Discuss DNR or withdrawal of care, Hospice)? DNR status @ -No What co-morbidities impacted this encounter? (DM, HTN, Smoking, COPD, CAD, Cancer, CVA, ARF, Chemo, Hep., AIDS, mental health diagnosis, sleep apnea, morbid obesity)? @ -None Was patient admitted / discharged? Hospital course, mention meds given and route, prescriptions, significant lab abnormalities, going to OR and other pertinent info. @ -Discharge patient has no evidence of ileus or obstruction. Laboratory studies to have current baseline. Patient no signs distress we discharged in stable condition return parameters discussed. Undiagnosed new problem with uncertain prognosis? @ -No Drug Therapy requiring intensive monitoring for toxicity (Heparin, Nitro, Insulin, Cardizem)? @ -No Were any procedures done? @ -No Diagnosis/symptom? @ -Abdominal pain Acute, or Chronic, or Acute on Chronic? @ -Acute Uncomplicated (without systemic symptoms) or Complicated (systemic symptoms)? @ -Uncomplicated Side effects of treatment? @ -No Exacerbation, Progression, or Severe Exacerbation? @ -No Poses a threat to life or bodily function? How? (Chest pain, [place], [place], pneumonia, PE, COPD, DKA, ARF, appy, cholecystitis, CVA, Diverticulitis, Homicidal, Suicidal, threat to staff... and all critical care pts) @ -No - Lab Data Result diagrams: 10/31/24 12:00 10/31/24 12:00 Lab Results 10/31/24 10/31/24 10/31/24 Range/Units 12:00 12:00 12:00 WBC 5.87 (4.50-10.00) 10*3/uL RBC 5.00 (4.10-5.20) 10*6/uL Hgb 14.7 (12.0-15.0) g/dL Hct 43.7 (37.2-46.3) % MCV 87.4 (80.0-97.0) fL MCH 29.4 (27.0-32.0) pg MCHC 33.6 (32.0-37.0) g/dL Plt Count 121 L (140-440) 10*3/uL MPV 13.1 H (9.5-12.2) fL Immature Gran % (Auto) 0.2 % Neutrophils % 77.2 % Lymphocytes % 16.9 % Monocytes % 4.3 % Eosinophils % 1.2 % Basophils % 0.2 % Immature Gran # 0.01 (0.00-0.04) 10*3/uL Neutrophils # 4.54 (1.80-7.70) 10*3/uL Lymphocytes # 0.99 (0.90-5.00) 10*3/uL Monocytes # 0.25 (0.20-1.00) 10*3/uL Eosinophils # 0.07 (0.04-0.35) 10*3/uL Basophils # 0.01 (0.00-0.10) 10*3/uL Immature Plt Fraction 9.5 H (1.1-6.1) % PT 26.9 H (10.0-12.5) sec INR 2.7 H (<1.2) APTT 34.2 H (22.0-30.0) sec Sodium 141 (137-145) mmol/L Potassium 3.9 (3.5-5.1) mmol/L Chloride 104 (98-107) mmol/L Carbon Dioxide 29 (22-30) mmol/L Anion Gap 8 mmol/L BUN 19 H (7-17) mg/dL Creatinine 1.20 H (0.52-1.04) mg/dL Est GFR (CKD-EPI)AfAm 53 (>60 ml/min/1.73 sqM) Est GFR (CKD-EPI)NonAf 46 (>60 ml/min/1.73 sqM) Glucose 145 H (74-99) mg/dL Plasma Lactic Acid Simone (0.7-2.0) mmol/L Calcium 9.7 (8.4-10.2) mg/dL Total Bilirubin 1.1 (0.2-1.3) mg/dL AST 22 (14-36) U/L ALT 19 (4-34) U/L Alkaline Phosphatase 97 (38-126) U/L Total Protein 6.5 (6.3-8.2) g/dL Albumin 4.0 (3.5-5.0) g/dL Amylase 79 (30-110) U/L Lipase 37 (23-300) U/L 10/31/24 Range/Units 12:00 WBC (4.50-10.00) 10*3/uL RBC (4.10-5.20) 10*6/uL Hgb (12.0-15.0) g/dL Hct (37.2-46.3) % MCV (80.0-97.0) fL MCH (27.0-32.0) pg MCHC (32.0-37.0) g/dL Plt Count (140-440) 10*3/uL MPV (9.5-12.2) fL Immature Gran % (Auto) % Neutrophils % % Lymphocytes % % Monocytes % % Eosinophils % % Basophils % % Immature Gran # (0.00-0.04) 10*3/uL Neutrophils # (1.80-7.70) 10*3/uL Lymphocytes # (0.90-5.00) 10*3/uL Monocytes # (0.20-1.00) 10*3/uL Eosinophils # (0.04-0.35) 10*3/uL Basophils # (0.00-0.10) 10*3/uL Immature Plt Fraction (1.1-6.1) % PT (10.0-12.5) sec INR (<1.2) APTT (22.0-30.0) sec Sodium (137-145) mmol/L Potassium (3.5-5.1) mmol/L Chloride (98-107) mmol/L Carbon Dioxide (22-30) mmol/L Anion Gap mmol/L BUN (7-17) mg/dL Creatinine (0.52-1.04) mg/dL Est GFR (CKD-EPI)AfAm (>60 ml/min/1.73 sqM) Est GFR (CKD-EPI)NonAf (>60 ml/min/1.73 sqM) Glucose (74-99) mg/dL Plasma Lactic Acid Simone 1.1 (0.7-2.0) mmol/L Calcium (8.4-10.2) mg/dL Total Bilirubin (0.2-1.3) mg/dL AST (14-36) U/L ALT (4-34) U/L Alkaline Phosphatase (38-126) U/L Total Protein (6.3-8.2) g/dL Albumin (3.5-5.0) g/dL Amylase (30-110) U/L Lipase (23-300) U/L Disposition Clinical Impression: Abdominal pain Disposition: HOME SELF-CARE Condition: Stable Instructions (If sedation given, give patient instructions): Abdominal Pain (ED) Additional Instructions: Please return to the Emergency Department if symptoms worsen or any other concerns. Is patient prescribed a controlled substance at d/c from ED?: No Referrals: Sarah Paredes MD [Primary Care Provider] - 1-2 days Time of Disposition: 13:27
== END 2024-10-31 14:28 | disposition home or self-care (01) ==
LOC: SUPCPDRO 11:32 → EC 11:32
DX: R10.9 Unspecified abdominal pain (principal); Z91.048 Other nonmedicinal substance allergy status
CPT/HCPCS: 36415; 74176; 80053; 82150; 83605; 83690; 85025; 85610; 85730; 99284